=== PATIENT | female | born 1965 | race African-American/Black ===

== ENCOUNTER 2021-07-02 08:41 | Inpatient (IN) | payer OTHER, SELFPAY ==
--- NOTE | ~2021-07-02 | MR_ITS ---
EXAMINATION: MRI OF THE LEFT FOOT WAS PERFORMED WITHOUT AND WITH CONTRAST CLINICAL INFORMATION: Evaluate for osteomyelitis suggested on x-ray. COMPARISON: X-rays of the left foot most recent 07/02/2021 as well as prior left foot x-ray November 2018. TECHNIQUE: MRI of the left foot was performed without and with contrast. Contrast dose 8 mm of Gadavist given intravenously. FINDINGS: SECOND TOE DISTAL PHALANGE: There is mild generalized decreased T1 increased T2 signal in the subcutaneous soft tissues surrounding the distal phalange. There is some subtle increased T2 signal without concomitant decreased T1 signal. There is mild enhancement of the surrounding soft tissues and possible enhancement of the bone. Findings compatible with cellulitis and possible osteomyelitis. THIRD TOE DISTAL PHALANGES: There is mild decreased T1 increased T2 signal with concomitant enhancement of the distal phalange. No bony erosion. Possible slight ulceration or irregularity of the lateral subcutaneous soft tissues. Findings compatible with cellulitis and probable osteomyelitis. THIRD TOE DISTAL PHALANGE: There is generalized abnormal signal in the subcutaneous soft tissues with concomitant enhancement compatible with cellulitis. Subtle abnormal increased T2 signal with concomitant enhancement of the distal end of the distal phalanx. Findings compatible with cellulitis and possible osteomyelitis. In the midfoot there is diffuse signal abnormality compatible with edema crossing the 1st, 2nd, 3rd and 4th tarsometatarsal joints. The edema in the 2nd metatarsal extends to the distal diaphysis. There is concomitant enhancement of the area of marrow edema. No definite fracture. No cartilage loss. There is generalized abnormal increased T2 signal with scattered enhancement of the muscles throughout the visualized foot. There is minimal if any atrophy or fatty infiltration of the muscles. Findings compatible with nonspecific myositis. There is abnormal signal throughout the subcutaneous soft tissues predominately dorsally with partial enhancement. Findings compatible with a combination of cellulitis and edema. MR/MR foot LT wo/w con IMPRESSION: Findings consistent with cellulitis and possible osteomyelitis of the distal phalanx of the 2nd, 3rd and 4th toes. Abnormality involving the 1st, 2nd, 3rd and 4th tarsometatarsal joints having the appearance and distribution suspicious for early neuropathic arthropathy. Stress reaction possible. Osteomyelitis in this area of the foot is thought to be unlikely. Abnormality of the muscles of the foot compatible with nonspecific myositis. Abnormality of the dorsal subcutaneous soft tissues of the midfoot and proximal forefoot compatible with a combination of edema and cellulitis.
--- NOTE | ~2021-07-02 | XR_ITS ---
EXAMINATION: XR FOOT, RIGHT CLINICAL INFORMATION: Rule out osteo- COMPARISON: None TECHNIQUE: AP, lateral, and oblique views of the right foot. FINDINGS: There is no evidence of acute fracture or dislocation of the right foot. Right foot joint spaces are maintained. There is some mild soft tissue swelling seen about the dorsum of the metatarsals as well as the dorsum of the tarsal bones. There appears to be a soft tissue defect about the lateral aspect of the foot near the base of the fifth metatarsal. No periosteal new bone formation is identified and no adjacent osteopenia is present to suggest acute osteomyelitis. Prominent plantar calcaneal spur is seen as well as small Achilles spur. No gas within soft tissues. XR/XR foot RT min 3V IMPRESSION: No acute fracture, dislocation, or definite evidence of osteomyelitis appreciated.
--- NOTE | ~2021-07-02 | XR_ITS ---
EXAMINATION: XR FOOT, LEFT CLINICAL INFORMATION: Necrotic toes. Concern for osteomyelitis. COMPARISON: None TECHNIQUE: AP, lateral, and oblique views of the left foot. FINDINGS: There is subtle loss of the cortical margin of the distal phalangeal tuft at the medial side of the bone involving the third toe. There is a soft tissue ulceration of this toe distally at the medial side of the toe. Findings concerning therefore of osteomyelitis. There is no air in the soft tissue. No other foci of bone destruction. There is a plantar calcaneal spur. XR/XR foot LT min 3V IMPRESSION: Subtle cortical loss of the distal phalangeal tuft at the medial side of the bone involving the third toe concerning for osteomyelitis.
--- NOTE | ~2021-07-02 | US_ITS ---
EXAMINATION: Noninvasive assessment of the arteries of both lower extremities to include a PVR exam limited (1-2 levels) and MANUEL, bilateral. ? CLINICAL INFORMATION: Bilateral lower extremity nonhealing ulcerations COMPARISON: None TECHNIQUE: The ankle/brachial indices of the distal posterior tibial and the dorsalis pedis arteries were obtained of the lower extremity arterial system bilaterally; along with pressures and pulse volume recordings at the ankle and duplex Doppler techniques of the common femoral, proximal femoral and proximal profunda arteries. The study was performed at rest. ? FINDINGS AT REST:? RIGHT LE. THE RIGHT ANKLE-BRACHIAL INDEX IS: 0.97 (higher of the DP/PT) >0.97-1.25 = normal - no significant arterial disease 0.75-0.96 = mild peripheral arterial disease 0.50-0.74 = moderate peripheral arterial disease <0.50 = severe peripheral arterial disease <0.30 = critical arterial disease 2. SEGMENTAL PRESSURES: Ankle: PT 117 3. PVR WAVEFORMS: Ankle: Abnormal 4. DIRECT DUPLEX: Common femoral artery: 164 cm/sec; multiphasic waveform Profunda artery: 84.1 cm/sec; multiphasic waveform Superficial femoral artery proximal: 132 cm/sec; monophasic waveform Superficial femoral artery mid portion: 292 cm/sec; monophasic waveform Superficial femoral artery distal: 102 cm/sec; monophasic waveform Popliteal artery: 180 cm/sec; monophasic waveform Posterior tibial artery: 47.9 cm/sec; monophasic waveform LEFT LE. THE LEFT ANKLE-BRACHIAL INDEX IS: 0.59 (higher of the DP/PT) >0.97-1.25 = normal - no significant arterial disease 0.75-0.96 = mild peripheral arterial disease 0.50-0.74 = moderate peripheral arterial disease <0.50 = severe peripheral arterial disease <0.30 = critical arterial disease 2. SEGMENTAL PRESSURES: Ankle: PT 71 3. PVR WAVEFORMS: Ankle: Abnormal 4. DIRECT DUPLEX: Common femoral artery: 179 cm/sec; multiphasic waveform Profunda artery: 98.2 cm/sec; multiphasic waveform Superficial femoral artery proximal: 138 cm/sec; monophasic waveform Superficial femoral artery mid portion: 154 cm/sec; monophasic waveform Superficial femoral artery distal: 130 cm/sec; monophasic waveform Popliteal artery: 102 cm/sec; monophasic waveform Posterior tibial artery: 25.5 cm/sec; monophasic waveform Incidental note is made of an enlarged right groin lymph node measuring 2.4 x 0.8 x 1.5 cm, still maintaining normal morphology. ? US/US arterial duplex LE BI IMPRESSION: 1. Peripheral arterial disease, left greater than right by MANUEL criteria, however elevated velocity within the right mid SFA indicates moderate stenosis. More specific anatomical information can be obtained with CTA runoff with 3-D reconstructions. 2. Enlarged but morphologically normal right groin lymph node, likely reactive but clinical correlation is requested as this is not specific.
[2021-07-02 14:37] VITALS: BP 92/60; PULSE 112; RESP 16; TEMP 36.6; O2SAT 98; BMI 34.2
--- NOTE | 2021-07-02 15:11 | ED.LOWEXIN ---
HPI - Extremity Injury (Lower) General Chief Complaint: Extremity Injury, Lower Stated Complaint: Hand/feet issues Time Seen by Provider: 07/02/21 14:37 Source: patient Mode of arrival: ambulatory History of Present Illness HPI Narrative: 56-year-old female with a past medical history of arthritis, HTN, diabetes, presenting to the ED complaining of bilateral necrotic diabetic foot ulcers with superimposed chemical and hot water burn to dorsal aspect of bilateral feet x2 days. Patient reports ulcers have been present for unknown period of time, was recommended to come to ED by PCP on . Admits was mopping floor with mixture of wood floor layer, bleach, and hot water on Saturday morning and spilled on feet. reports chills. denies fever, CP, SOB, abdominal pain MD complaint: foot injury Onset (ago): day(s) Related Data Home Medications Medication Instructions Recorded Confirmed aspirin 81 mg tablet,delayed 1 tab PO DAILY 07/02/21 07/02/21 release atorvastatin 40 mg tablet 1 tab PO DAILY 07/02/21 07/02/21 cholecalciferol (vitamin D3) 25 1 tab PO DAILY 07/02/21 07/02/21 mcg (1,000 unit) tablet clotrimazole 1 % topical cream 1 appl TOPICAL BID 07/02/21 07/02/21 ezetimibe 10 mg tablet 1 tab PO DAILY 07/02/21 07/02/21 insulin glargine 100 unit/mL (3 15 unit SUBCUT DAILY 07/02/21 07/02/21 mL) subcutaneous pen (Lantus Solostar U-100 Insulin) lisinopril 20 1 tab PO DAILY 07/02/21 07/02/21 mg-hydrochlorothiazide 25 mg tablet metformin 1,000 mg tablet 1 tab PO BID 07/02/21 07/02/21 pioglitazone 15 mg tablet 1 tab PO DAILY 07/02/21 07/02/21 Allergies Allergy/AdvReac Type Severity Reaction Status Date / Time No Known Allergies Allergy Unknown UNKNOWN Unverified 03/24/20 19:04 [NO KNOWN ALLERGIES] Review of Systems Review of Systems: Constitutional: No Fever, + Chills, No Fatigue, No Malaise ENT/Mouth: No Hearing loss, No Ear Pain, No Nasal Congestion, No sore throat Eyes: No Eye Pain, No Swelling, No Redness Cardiovascular: No Chest Pain, No SOB, No Edema, No Palpitations Respiratory: No Cough, No Dyspnea Gastrointestinal: No Nausea, No Vomiting, No Diarrhea, No Constipation, No Abdominal pain Genitourinary: No Dysuria, No Urinary Frequency, No Urinary Flow Changes, No Hesitancy Musculoskeletal: + joint pain, No Myalgias, + Joint Swelling Skin: + Skin Lesions, No rash Neuro: No Weakness, No Numbness, No Paresthesias, No Headache Yes all other systems are reviewed and are negative [facility] Past Medical History Attestation statement: The following information was validated with the patient. Medical History (Updated 07/02/21 @ 17:00 by Cecilio Hernandez MD) Arthritis HLD (hyperlipidemia) Hypertension Insulin dependent type 1 diabetes mellitus Social History Social History (Updated 07/02/21 @ 17:01 by Cecilio Hernandez MD) Patient Tobacco Use Status: Never used Tobacco Advance Directives: No Advance Directives Information Provided: No Physical Exam Vital Signs: Vital Signs: Last Vital Signs Temp 98.3 F 07/02/21 15:25 Pulse 80 07/02/21 15:25 Resp 16 07/02/21 15:25 BP 94/51 L 07/02/21 15:25 Pulse Ox 99 07/02/21 15:25 BMI result Body Mass Index 34.2 Const: General: cooperative, healthy appearing and no acute distress Orientation/consciousness: patient oriented x3 Limitations: no limitations HENMT: Head: Yes normal to inspection and Yes atraumatic Ears: hearing grossly normal bilaterally General nose exam: Normal external nose present Face and sinus: Yes normal facial exam Eyes: General: appearance normal, both eyes and all related structures EOM: EOMs intact bilaterally Neck: Neck: Yes normal visual inspection and Yes no meningeal signs Resp: Effort & Inspection: normal respiratory effort and no respiratory distress Cardio: Rate: regular rate Peripheral pulses: dorsalis pedis present GI: Inspection: Yes normal to inspection Skin: Rashes: no rashes Neuro: General: patient oriented x3, moves all extremities and no meningeal signs Gait exam (Neuro): Normal gait present Extrem: Other: Please refer to images above. Right foot with 5 necrotic toes, dorsum of foot with overlying delayed second-degree burn. Distal pulses intact. + Surrounding ankle erythema and swelling Left foot with 2nd-5th toes necrotic, also with overlying delayed 2nd-degree burn. Distal pulses intact. Mild surrounding erythema General: Yes normal to inspection Course Course Course Narrative: - using patient's ideal body weight of 45 kg due to obesity. 30mg/kg x 45kg = 1,350cc IVF -1633-- noted leukocytosis of 21.9. H&H 8.5/27.7 (chronically low in the past). Acute on chronic CKD, glucose 420 > no anion gap, acetone negative - lactic acid negative. COVID-19 negative XR foot RT min 3V IMPRESSION: No acute fracture, dislocation, or definite evidence of osteomyelitis appreciated. XR foot LT min 3V IMPRESSION: Subtle cortical loss of the distal phalangeal tuft at the medial side of the bone involving the third toe concerning for osteomyelitis. >> plan to admit for further management MDM - Extremity Injury (Lower) MDM Narrative Medical decision making narrative: 56-year-old female with a past medical history of arthritis, HTN, diabetes, presenting to the ED complaining of bilateral necrotic diabetic foot ulcers with superimposed chemical and hot water burn to dorsal aspect of bilateral feet x2 days. On exam tachycardic likely from pain, BP on lower side, please refer to images above. Concern for necrotic toes/osteomyelitis with overlying delayed second-degree burn with superimposed cellulitis. plan: Labs, lactic/ blood cultures, Empiric IV antibiotics, anticipated admission Medical Records Attestation: I reviewed the patient's medical records. Lab Data Attestation: I reviewed the patient's lab results. Result diagrams: 07/02/21 15:55 07/02/21 15:55 Labs: Lab Results 07/02/21 07/02/21 07/02/21 Range/Units 15:54 15:55 15:55 WBC 21.9 H (4.8-10.8) X10*3/uL RBC 4.49 (4.20-5.50) X10*6/uL Hgb 8.5 L (12.0-16.0) g/dl Hct 27.7 L (37.0-47.0) % MCV 61.7 L (80.0-98.0) fL MCH 18.9 L (27.0-33.0) pg MCHC 30.7 L (31.0-35.0) g/dl RDW 14.0 (11.0-16.0) % Plt Count 657 H (160-400) X10*3/uL MPV 8.9 L (9.4-12.3) fL Immature Gran % (Auto) 0.5 H (0.0-0.4) % Neut % (Auto) 80.1 H (45-73) % Lymph % (Auto) 11.6 L (20-40) % [place] % (Auto) 6.8 (2-11) % Eos % (Auto) 0.7 (0-4) % Baso % (Auto) 0.3 (0-2) % Lymph # (Auto) 2.6 (1.2-4.9) X10*3/uL [place] # (Auto) 1.5 H (0.1-1.2) X10*3/uL Eos # (Auto) 0.2 (0.0-0.4) X10*3/uL Baso # (Auto) 0.1 (0.0-0.2) X10*3/uL Abs Immat Gran (auto) 0.12 H (0.00-0.03) X10*3/uL Absolute Neuts (auto) 17.5 H (2.0-8.3) x10*3/uL Absolute Nucleated RBC 0.000 (0.0-0.012) X10*3/uL Nucleated RBC % (auto) 0.0 (0.0-0.2) /100WBC Smear Tech's Comments VERIFIED Sodium 132 L (135-145) mmol/L Potassium 4.5 (3.3-5.1) mmol/L Chloride 93 L (96-108) mmol/L Carbon Dioxide 28 (22-29) mmol/L Anion Gap 16 (12-20) BUN 27 H (9-16) mg/dL Creatinine 1.64 H (0.5-1.4) mg/dL Estim Creat Clear Calc 34.9 Estimated GFR 32 POC Glucose (60-115) mg/dL Random Glucose 420 H* (60-115) mg/dL Estimat Average Glucose TNP Hemoglobin A1c % > 14.0 % Lactic Acid (0.5-2.0) mmol/L Calcium 9.7 (8.4-10.2) mg/dL Magnesium 1.7 (1.6-2.6) mg/dL Total Bilirubin 0.2 (0.0-1.0) mg/dL Direct Bilirubin 0.2 (0.0-0.5) mg/dL AST 12 (5-31) U/L ALT 12 (0-31) U/L Alkaline Phosphatase 89 (39-117) U/L B-Natriuretic Peptide (<100) pg/mL Total Protein 7.2 (6.5-8.0) g/dL Albumin 3.7 (3.5-5.0) g/dL Acetone, Qual Negative (Negative) COVID-19 ([facility]) (Negative) COVID-19 Clin Com 07/02/21 07/02/21 07/02/21 Range/Units 15:55 15:55 15:55 WBC (4.8-10.8) X10*3/uL RBC (4.20-5.50) X10*6/uL Hgb (12.0-16.0) g/dl Hct (37.0-47.0) % MCV (80.0-98.0) fL MCH (27.0-33.0) pg MCHC (31.0-35.0) g/dl RDW (11.0-16.0) % Plt Count (160-400) X10*3/uL MPV (9.4-12.3) fL Immature Gran % (Auto) (0.0-0.4) % Neut % (Auto) (45-73) % Lymph % (Auto) (20-40) % [place] % (Auto) (2-11) % Eos % (Auto) (0-4) % Baso % (Auto) (0-2) % Lymph # (Auto) (1.2-4.9) X10*3/uL [place] # (Auto) (0.1-1.2) X10*3/uL Eos # (Auto) (0.0-0.4) X10*3/uL Baso # (Auto) (0.0-0.2) X10*3/uL Abs Immat Gran (auto) (0.00-0.03) X10*3/uL Absolute Neuts (auto) (2.0-8.3) x10*3/uL Absolute Nucleated RBC (0.0-0.012) X10*3/uL Nucleated RBC % (auto) (0.0-0.2) /100WBC Smear Tech's Comments Sodium (135-145) mmol/L Potassium (3.3-5.1) mmol/L Chloride (96-108) mmol/L Carbon Dioxide (22-29) mmol/L Anion Gap (12-20) BUN (9-16) mg/dL Creatinine (0.5-1.4) mg/dL Estim Creat Clear Calc Estimated GFR POC Glucose (60-115) mg/dL Random Glucose (60-115) mg/dL Estimat Average Glucose Hemoglobin A1c % % Lactic Acid 1.5 (0.5-2.0) mmol/L Calcium (8.4-10.2) mg/dL Magnesium (1.6-2.6) mg/dL Total Bilirubin (0.0-1.0) mg/dL Direct Bilirubin (0.0-0.5) mg/dL AST (5-31) U/L ALT (0-31) U/L Alkaline Phosphatase (39-117) U/L B-Natriuretic Peptide 46 (<100) pg/mL Total Protein (6.5-8.0) g/dL Albumin (3.5-5.0) g/dL Acetone, Qual (Negative) COVID-19 ([facility]) Negative (Negative) COVID-19 Clin Com See Note 07/02/21 Range/Units 16:00 WBC (4.8-10.8) X10*3/uL RBC (4.20-5.50) X10*6/uL Hgb (12.0-16.0) g/dl Hct (37.0-47.0) % MCV (80.0-98.0) fL MCH (27.0-33.0) pg MCHC (31.0-35.0) g/dl RDW (11.0-16.0) % Plt Count (160-400) X10*3/uL MPV (9.4-12.3) fL Immature Gran % (Auto) (0.0-0.4) % Neut % (Auto) (45-73) % Lymph % (Auto) (20-40) % [place] % (Auto) (2-11) % Eos % (Auto) (0-4) % Baso % (Auto) (0-2) % Lymph # (Auto) (1.2-4.9) X10*3/uL [place] # (Auto) (0.1-1.2) X10*3/uL Eos # (Auto) (0.0-0.4) X10*3/uL Baso # (Auto) (0.0-0.2) X10*3/uL Abs Immat Gran (auto) (0.00-0.03) X10*3/uL Absolute Neuts (auto) (2.0-8.3) x10*3/uL Absolute Nucleated RBC (0.0-0.012) X10*3/uL Nucleated RBC % (auto) (0.0-0.2) /100WBC Smear Tech's Comments Sodium (135-145) mmol/L Potassium (3.3-5.1) mmol/L Chloride (96-108) mmol/L Carbon Dioxide (22-29) mmol/L Anion Gap (12-20) BUN (9-16) mg/dL Creatinine (0.5-1.4) mg/dL Estim Creat Clear Calc Estimated GFR POC Glucose 372 H* (60-115) mg/dL Random Glucose (60-115) mg/dL Estimat Average Glucose Hemoglobin A1c % % Lactic Acid (0.5-2.0) mmol/L Calcium (8.4-10.2) mg/dL Magnesium (1.6-2.6) mg/dL Total Bilirubin (0.0-1.0) mg/dL Direct Bilirubin (0.0-0.5) mg/dL AST (5-31) U/L ALT (0-31) U/L Alkaline Phosphatase (39-117) U/L B-Natriuretic Peptide (<100) pg/mL Total Protein (6.5-8.0) g/dL Albumin (3.5-5.0) g/dL Acetone, Qual (Negative) COVID-19 ([facility]) (Negative) COVID-19 Clin Com Critical Care Time Critical Care Time Critical Care Time: Yes Total Critical Care Time: 40 Attestation: I have personally provided critical care time exclusive of time spent on separately billable procedures. Time includes review of lab data, radiology results, discussion with consultants, and monitoring for potential decompensation. Intervention performed as documented. Discharge Plan Discharge Clinical Impression: Burn Osteomyelitis Qualifiers: Osteomyelitis type: unspecified type Osteomyelitis location: foot Laterality: unspecified laterality Qualified Code(s): M86.9 - Osteomyelitis, unspecified Cellulitis Qualifiers: Site of cellulitis: extremity Site of cellulitis of extremity: lower extremity Laterality: unspecified laterality Qualified Code(s): L03.119 - Cellulitis of unspecified part of limb Patient Disposition: Admitted As Inpatient
[2021-07-02 15:25] VITALS: BP 94/51; PULSE 80; RESP 16; TEMP 36.8; O2SAT 99
--- NOTE | 2021-07-02 15:38 | PHA.MEDREC ---
Pharmacy Consult ? Medication Reconciliation Pharmacy has completed the medication reconciliation Spoke with patient in ED. Patient took all meds except insulin today. She is on Lantus and says she uses dials the pen 5 clicks and her dose is either 15 or 25 units in the morning .
[2021-07-02 16:02] LABS: Basophils Absolute Auto 0.1 X10*3/uL (0.0-0.2); Basophils Percent Auto 0.3 % (0-2); Eosinophils Absolute Auto 0.2 X10*3/uL (0.0-0.4); Eosinophils Percent Auto 0.7 % (0-4); Hematocrit 27.7 % (37.0-47.0); Hemoglobin 8.5 g/dl (12.0-16.0); Imm Gran Abs Auto 0.12 X10*3/uL (0.00-0.03); Imm Gran Pct Auto 0.5 % (0.0-0.4); Lymphocytes Absolute Auto 2.6 X10*3/uL (1.2-4.9); Lymphocytes Percent Auto 11.6 % (20-40); Mean Corpuscular HGB Conc 30.7 g/dl (31.0-35.0); Mean Corpuscular Hemoglobin 18.9 pg (27.0-33.0); Mean Corpuscular Volume 61.7 fL (80.0-98.0); Mean Platelet Volume 8.9 fL (9.4-12.3); Monocytes Absolute Auto 1.5 X10*3/uL (0.1-1.2); Monocytes Percent Auto 6.8 % (2-11); Neutrophils Absolute Auto 17.5 x10*3/uL (2.0-8.3); Neutrophils Percent Auto 80.1 % (45-73); Platelet Count 657 X10*3/uL (160-400); Red Blood Count 4.49 X10*6/uL (4.20-5.50); White Blood Count 21.9 X10*3/uL (4.8-10.8)
[2021-07-02 16:03] LABS: MANUAL DIFF FLAG SCAN
[2021-07-02] MEDS: 0.9 % Sodium Chloride 1,000 ML 999 ML IVCONT ×2 (16:04→17:41)
[2021-07-02 16:05] LABS: Glucose, Whole Blood 372 mg/dL (60-115)
[2021-07-02] MEDS: Piperacillin Sodium/Tazobactam 3.375 GM in 0.9 % Sodium Chloride 50 ML IV ×2 (16:13→22:37)
[2021-07-02 16:14] LABS: Lactic Acid 1.5 mmol/L (0.5-2.0)
[2021-07-02 16:23] LABS: SLIDE REVIEW VERIFIED
[2021-07-02 16:24] LABS: B Type Natriuretic Peptide 46 pg/mL (<100)
[2021-07-02 16:25] LABS: Alanine Aminotransferase 12 U/L (0-31); Albumin Level 3.7 g/dL (3.5-5.0); Alkaline Phosphatase 89 U/L (39-117); Anion Gap 16 (12-20); Aspartate Amino Transferase 12 U/L (5-31); Bilirubin Direct 0.2 mg/dL (0.0-0.5); Bilirubin Total 0.2 mg/dL (0.0-1.0); Blood Urea Nitrogen 27 mg/dL (9-16); Calcium 9.7 mg/dL (8.4-10.2); Carbon Dioxide 28 mmol/L (22-29); Chloride 93 mmol/L (96-108); Creatinine Clr Calc Pharmacy 34.9; Estimated Glomerular Filt Rate 32; Glucose Random 420 mg/dL (60-115); Magnesium 1.7 mg/dL (1.6-2.6); Potassium 4.5 mmol/L (3.3-5.1); Sodium 132 mmol/L (135-145); Total Protein 7.2 g/dL (6.5-8.0)
[2021-07-02 16:26] LABS: Acetone, serum QL Negative (Negative)
[2021-07-02 16:27] LABS: COVID-19 Test Negative (Negative)
[2021-07-02 16:45] LABS: Hemoglobin A1c % > 14.0 %
--- NOTE | 2021-07-02 16:56 | PM.IMHP ---
History of Present Illness Date of Service: 07/02/21 Chief Complaint: Foot ulcer 56-year-old female with a past medical history of arthritis, HTN, diabetes, presenting with bilateral necrotic diabetic foot ulcers, and also reports that she had chemical injury to the feet with probably bleach.? Before sustaining burn she had chronic ulcer to the feet and PCP had advised her to come to the ED--She reported was mopping the floor with mixture of assistant floor covering printer, bleach, and hot water the day before chrismas when bucket tipped over and spilled on to the feet. No fever or chills. WBC is 23. Xray of left foot shows Subtle cortical loss of the distal phalangeal tuft at the medial side of the bone involving the third toe concerning for osteomyelitis. Review of Systems Review of Systems: Constitutional: No Fever, + Chills, No Fatigue, No Malaise ENT/Mouth: No Hearing loss, No Ear Pain, No Nasal Congestion, No sore throat Eyes: No Eye Pain, No Swelling, No Redness Cardiovascular: No Chest Pain, No SOB, No Edema, No Palpitations Respiratory: No Cough, No Dyspnea Gastrointestinal: No Nausea, No Vomiting, No Diarrhea, No Constipation, No Abdominal pain Genitourinary: No Dysuria, No Urinary Frequency, No Urinary Flow Changes, No Hesitancy Musculoskeletal: + joint pain, No Myalgias, + Joint Swelling Skin: +ulcers as in picutures below Neuro: No Weakness, No Numbness, No Paresthesias, No Headache PMFSH Medical History (Updated 07/02/21 @ 17:38 by Cecilio Hernandez MD) Arthritis Diabetes HLD (hyperlipidemia) Hypertension Family History (Updated 07/02/21 @ 17:34 by Cecilio Hernandez MD) Other HTN (hypertension) Social History (Updated 07/02/21 @ 17:34 by Cecilio Hernandez MD) Alcohol intake: never Patient Tobacco Use Status: Never used Tobacco Advance Directives: No Advance Directives Information Provided: No Meds Allergies Allergy/AdvReac Type Severity Reaction Status Date / Time No Known Allergies Allergy Unknown UNKNOWN Unverified 03/24/20 19:04 [NO KNOWN ALLERGIES] Active Medications: Current Medications Pharmacy Consult (Consult Rx Perform Med Rec) 1 each MISCELLANE ONCE PRN PRN Reason: Consult order Home Medications Medication Instructions Recorded Confirmed Last Taken Type aspirin 81 mg tablet,delayed 1 tab PO DAILY 07/02/21 07/02/21 07/02/21 History release atorvastatin 40 mg tablet 1 tab PO DAILY 07/02/21 07/02/21 07/02/21 History cholecalciferol (vitamin D3) 25 1 tab PO DAILY 07/02/21 07/02/21 07/02/21 History mcg (1,000 unit) tablet clotrimazole 1 % topical cream 1 appl TOPICAL BID 07/02/21 07/02/21 07/02/21 History ezetimibe 10 mg tablet 1 tab PO DAILY 07/02/21 07/02/21 07/02/21 History insulin glargine 100 unit/mL (3 15 unit SUBCUT DAILY 07/02/21 07/02/21 07/01/21 History mL) subcutaneous pen (Lantus Solostar U-100 Insulin) lisinopril 20 1 tab PO DAILY 07/02/21 07/02/21 07/02/21 History mg-hydrochlorothiazide 25 mg tablet metformin 1,000 mg tablet 1 tab PO BID 07/02/21 07/02/21 07/02/21 History pioglitazone 15 mg tablet 1 tab PO DAILY 07/02/21 07/02/21 07/02/21 History Physical Exam Vital Signs and Narrative: Vital Signs: Last Vital Signs Temp 98.3 F 07/02/21 15:25 Pulse 80 07/02/21 15:25 Resp 16 07/02/21 15:25 BP 94/51 L 07/02/21 15:25 Pulse Ox 99 07/02/21 15:25 BMI result Body Mass Index 34.2 Const: Other: Constitutional: Alert, in no distress, . Mental Status: Oriented to person, place and time. Eyes: Pupils are equal, round and reactive to light. Ear, Nose and Throat: Oropharynx clear, mucous membranes moist. Ears and nose without eformities. Trachea midline. Respiratory: Clear to auscultation. No wheezing, rales or rhonchi. Cardiovascular: S1 S2 regular. No murmurs, rubs or gallops. Gastrointestinal: Abdomen soft, non-tender, non-distended. Normal bowel sounds.? Neurologic: Cranial nerves II-XII grossly intact. No focal neurological deficits. Moves all extremities spontaneously.? Skin:See pictures Musculoskeletal: No cyanosis or clubbing. Psychiatric: Normal mood and affect? Extrem: Other: Please refer to images above. Right foot with 5 necrotic toes, dorsum of foot with overlying delayed second-degree burn. Distal pulses intact. + Surrounding ankle erythema and swelling Left foot with 2nd-5th toes necrotic, also with overlying delayed 2nd-degree burn. Distal pulses intact. Mild surrounding erythema Results Labs CBC and Chem 7: 07/02/21 15:55 07/02/21 15:55 Labs: Laboratory Results - last 24 hr 07/02/21 07/02/21 07/02/21 15:54 15:55 15:55 MCV 61.7 L MCH 18.9 L MCHC 30.7 L RDW 14.0 Plt Count 657 H MPV 8.9 L Immature Gran % (Auto) 0.5 H Neut % (Auto) 80.1 H Lymph % (Auto) 11.6 L [place] % (Auto) 6.8 Eos % (Auto) 0.7 Baso % (Auto) 0.3 Lymph # (Auto) 2.6 [place] # (Auto) 1.5 H Eos # (Auto) 0.2 Baso # (Auto) 0.1 Abs Immat Gran (auto) 0.12 H Absolute Neuts (auto) 17.5 H Absolute Nucleated RBC 0.000 Nucleated RBC % (auto) 0.0 Smear Tech's Comments VERIFIED Anion Gap 16 Estim Creat Clear Calc 34.9 Estimated GFR 32 POC Glucose Random Glucose 420 H* Estimat Average Glucose TNP Hemoglobin A1c % > 14.0 Lactic Acid Calcium 9.7 Magnesium 1.7 Total Bilirubin 0.2 Direct Bilirubin 0.2 AST 12 ALT 12 Alkaline Phosphatase 89 B-Natriuretic Peptide Total Protein 7.2 Albumin 3.7 Acetone, Qual Negative COVID-19 ([facility]) COVID-19 Clin Com 07/02/21 07/02/21 07/02/21 15:55 15:55 15:55 MCV MCH MCHC RDW Plt Count MPV Immature Gran % (Auto) Neut % (Auto) Lymph % (Auto) [place] % (Auto) Eos % (Auto) Baso % (Auto) Lymph # (Auto) [place] # (Auto) Eos # (Auto) Baso # (Auto) Abs Immat Gran (auto) Absolute Neuts (auto) Absolute Nucleated RBC Nucleated RBC % (auto) Smear Tech's Comments Anion Gap Estim Creat Clear Calc Estimated GFR POC Glucose Random Glucose Estimat Average Glucose Hemoglobin A1c % Lactic Acid 1.5 Calcium Magnesium Total Bilirubin Direct Bilirubin AST ALT Alkaline Phosphatase B-Natriuretic Peptide 46 Total Protein Albumin Acetone, Qual COVID-19 ([facility]) Negative COVID-19 Clin Com See Note 07/02/21 16:00 MCV MCH MCHC RDW Plt Count MPV Immature Gran % (Auto) Neut % (Auto) Lymph % (Auto) [place] % (Auto) Eos % (Auto) Baso % (Auto) Lymph # (Auto) [place] # (Auto) Eos # (Auto) Baso # (Auto) Abs Immat Gran (auto) Absolute Neuts (auto) Absolute Nucleated RBC Nucleated RBC % (auto) Smear Tech's Comments Anion Gap Estim Creat Clear Calc Estimated GFR POC Glucose 372 H* Random Glucose Estimat Average Glucose Hemoglobin A1c % Lactic Acid Calcium Magnesium Total Bilirubin Direct Bilirubin AST ALT Alkaline Phosphatase B-Natriuretic Peptide Total Protein Albumin Acetone, Qual COVID-19 ([facility]) COVID-19 Clin Com Imaging Radiologist's Impressions: Impressions Foot X-Ray 07/02/21 15:15 IMPRESSION: Subtle cortical loss of the distal phalangeal tuft at the medial side of the bone involving the third toe concerning for osteomyelitis. Foot X-Ray 07/02/21 15:15 IMPRESSION: No acute fracture, dislocation, or definite evidence of osteomyelitis appreciated. Assessment and Plan (1) Cellulitis: Qualifiers: Laterality: unspecified laterality Site of cellulitis: extremity Site of cellulitis of extremity: lower extremity Qualified Code(s): L03.119 - Cellulitis of unspecified part of limb Status: Acute (2) Burn: Status: Acute (3) Diabetes: Status: Acute (4) Osteomyelitis: Qualifiers: Laterality: unspecified laterality Osteomyelitis location: foot Osteomyelitis type: unspecified type Qualified Code(s): M86.9 - Osteomyelitis, unspecified Status: Acute 56 year female with diabetes, HNT, HLD, peripheral neuropathy diabetes foot ulcers here with diabetic foot ulcer with superimposed chemical and hot water burn to the feet as demonstrated in pictures.. Xray suggest possible osteo, has anemia that appear chronic #Sepsis #?Osteo of left foot #Cellulitis of feet -Culture pending -IV Abx (Zosyn and Vanco) -ID, Surgery, and Vascular consult -MRI of left foot Diabetes--uncontrolled -Continue Lantus -Hold Metofrmin and Actos in light or renal failure #HTN--Hold BP meds BP borderline #HLD--continue Statin # Peripheral neuropathy--add gabapentin #CKD--I suspect that the present Cr reflects her baseline # Anemia--likely of chronic disease, check occultur blood #DVT prophy heparin, monitor H/H Quality Stroke Does the patient have a stroke diagnosis?: No VTE Prior VTE?: No VTE Risk Level:: Medical - moderate - high VTE Device Contraindication: Treatment Not Indicated VTE Drug Contraindication: N/A - Med Ordered
[2021-07-02] MEDS: Insulin Regular, Human 100 UNIT/ML 3 ML VIAL 10 UNIT IVPUSH (17:42)
[2021-07-02] MEDS: vancomycin HCL 1,000 MG in 0.9 % Sodium Chloride 250 ML 270 MG IV (17:44)
--- NOTE | 2021-07-02 18:16 | PHA.PROG ---
Admission Date/Time: July 02, 2021 17:45 Indication: osteo/sepsis Weight in k.379 kg Adjusted body weight in K.1 kg [place] body weight in K.5 kg Obesity Dosing Indication % IBW: Serum Creatinine - Last 168 Hours 07/02/21 15:55 Creatinine 1.64 H Estimated CrCl and GFR - Last 168 Hours 07/02/21 15:55 Estim Creat Clear Calc 34.9 Estimated GFR 32 Vancomycin Loading Dose: 1000 mg Current Vancomycin Dosing Regimen: 1250 mg q24 Vancomycin Monitoring using AUC goal of 400 - 600 range with trough as surrogate marker:562 Date and Time for next Vancomycin Level to be drawn: 07/04 @1600 Pharmacist Comments on Plan: 1250 mg q24 based on dx, potentially may need to decrease to 1000 mg q24 if renal function worsens Vancomycin dosing will take advantage of [employer] as a clinical decision support tool that uses Bayesian modeling to calculate individual patient's pharmacokinetic parameters and forecast the patient's drug concentration time course with the target goal AUC 24 range of 400 - 600 mg/L/hr.
[2021-07-02] MEDS: Bacitracin Oint 14 GM TUBE 2 APPL TOPICAL (18:23)
[2021-07-02 19:41] LABS: Glucose, Whole Blood 303 mg/dL (60-115)
[2021-07-02 19:52] VITALS: BP 101/48; PULSE 93; RESP 16; TEMP 36.7; O2SAT 98
[2021-07-02] MEDS: Sodium Chloride 0.45 % 1,000 ML 100 ML IVCONT (20:11)
--- NOTE | 2021-07-02 20:45 | PC.NURSE ---
assumed care of pt at 1900. IVF started late due to high pt number to low RN ratio on previous shift. pt laying in bed wearing winter hat and gloves. pt refusing to exchange specialist. awaiting inpatient bed assignment, pt aware
[2021-07-02 21:11] LABS: Glucose, Whole Blood 314 mg/dL (60-115)
[2021-07-02] MEDS: Insulin Lispro 100 UNIT/ML 3 ML VIAL SUBCUT (21:12)
[2021-07-02] MEDS: Insulin Glargine,Hum.rec.anlog 100 UNIT/ML 10 ML VIAL 15 UNIT SUBCUT (21:13)
[2021-07-02 23:06] VITALS: BP 106/44; PULSE 89; RESP 16; TEMP 36.8; O2SAT 98
[2021-07-03 01:24] VITALS: BP 113/42; PULSE 90; RESP 16; TEMP 36.8; O2SAT 99
[2021-07-03] MEDS: Piperacillin Sodium/Tazobactam 3.375 GM in 0.9 % Sodium Chloride 50 ML IV ×4 (04:43→22:11)
[2021-07-03] MEDS: Sodium Chloride 0.45 % 1,000 ML 100 ML IVCONT (04:44)
--- NOTE | 2021-07-03 06:22 | PC.NURSE ---
pt oob to bathroom with assist with a steady.
[2021-07-03 07:08] VITALS: BP 119/48; PULSE 100; RESP 16; TEMP 36.8; O2SAT 99
[2021-07-03 07:16] LABS: Glucose, Whole Blood 144 mg/dL (60-115)
[2021-07-03 08:55] VITALS: BP 119/48; PULSE 99; RESP 16
[2021-07-03] MEDS: Cholecalciferol (Vitamin D3) 25 MCG TABLET PO (08:56)
[2021-07-03] MEDS: Ezetimibe 10 MG TABLET PO (08:56)
[2021-07-03] MEDS: Aspirin Enteric Coated 81 MG TABLET.DR PO (08:56)
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
[2021-07-03 09:50] LABS: Hematocrit 23.7 % (37.0-47.0); Hemoglobin 7.3 g/dl (12.0-16.0); Mean Corpuscular HGB Conc 30.8 g/dl (31.0-35.0); Mean Corpuscular Hemoglobin 19.1 pg (27.0-33.0); Mean Platelet Volume 8.9 fL (9.4-12.3); Platelet Count 557 X10*3/uL (160-400); Red Blood Count 3.83 X10*6/uL (4.20-5.50); Red Cell Distribution Width 14.3 % (11.0-16.0); White Blood Count 18.2 X10*3/uL (4.8-10.8)
[2021-07-03 09:51] LABS: Mean Corpuscular Volume 61.9 fL (80.0-98.0)
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
[2021-07-03 10:14] LABS: Creatinine Clr Calc Pharmacy 46.1; Estimated Glomerular Filt Rate 44
[2021-07-03 11:03] LABS: Anion Gap 9 (12-20); Calcium 8.9 mg/dL (8.4-10.2); Carbon Dioxide 28 mmol/L (22-29); Chloride 99 mmol/L (96-108); Creatinine Clr Calc Pharmacy 43.6; Estimated Glomerular Filt Rate 42; Glucose Random 302 mg/dL (60-115); Potassium 4.4 mmol/L (3.3-5.1); Sodium 132 mmol/L (135-145)
[2021-07-03 11:12] LABS: Blood Urea Nitrogen 22 mg/dL (9-16)
[2021-07-03 11:33] LABS: Glucose, Whole Blood 258 mg/dL (60-115)
[2021-07-03 11:44] LABS: Erythrocyte Sedimentation Rate 104 MM/HR (0-20)
--- NOTE | 2021-07-03 12:19 | P.CDIC_ITS ---
CDI Concurrent Query Documentation Clarification: PHYSICIAN'S DOCUMENTATION REQUEST Date of Query: 07/03/21 1219 Patient Name: Mitra Parish Admit Date: 07/02/21 Dear Doctor, A review of the medical record indicates additional documentation may be needed. Please review below and update the documentation accordingly. Clinical Indicators: The following clinical information was noted in the record: Verdana 4Bd Risk Factors/Clinical Indicators/Treatments Verdana 4d BUN 27 Creatinine 1.64 GFR 32 Please clarify which of the following accurately represents the patient's renal status: * CKD, please provide stage - see criteria * Other (please specify) * Unable to determine Verdana 4Bd Criteria for LUIS* Stages of Chronic Kidney Disease* Verdana 4d 1. Verdana 4Ud c Verdana 4Bd Leve GFR Increase in serum l c Description c creatinine by ? 0.3 mg/dL A Verdana 4d (?26. G1 Normal or High > 90 5 micromol/L) within 48 hours, or 2. Increase in G2 Mildly decreased 60 ? 89 serum creatinine to ?1.5 times baseline, which is G3a Mildly to 45 ? 59 known or presumed moderately to have occurred decreased within 7 days, or 3. Urine volume G3b Moderately to 30 - 44 <0.5 mL/kg/hour severely for six hours decreased G4 Severely 15 ? 29 decreased G5 Kidney failure < 15 *Source: Kidney Disease: Improving Global Outcomes (KDIGO) 2012 Use of terms such as suspected, likely, concern for, or probable (associated with a specific diagnosis that is being evaluated, monitored, or treated as if it exists) are acceptable and can be coded in the inpatient setting, when documented at the time of discharge. Thank you, Stefanie Stern , KRISTEN Extension: [phone] Please use your independent medical judgment in providing your response. THIS QUERY IS PART OF THE PERMANENT MEDICAL RECORD
--- NOTE | 2021-07-03 12:19 | MHC.CDI.CONC ---
CDI Concurrent Query Documentation Clarification: PHYSICIAN'S DOCUMENTATION REQUEST Date of Query: 07/03/21 1219 Patient Name: Mitra Parish Admit Date: 07/02/21 Dear Doctor, A review of the medical record indicates additional documentation may be needed. Please review below and update the documentation accordingly. Clinical Indicators: The following clinical information was noted in the record: Risk Factors/Clinical Indicators/Treatments BUN 27 Creatinine 1.64 GFR 32 Please clarify which of the following accurately represents the patient's renal status: CKD, please provide stage - see criteria Other (please specify) Unable to determine Criteria for LUIS* Stages of Chronic Kidney Disease* 1. Increase in serum creatinine by ? 0.3 mg/dL Level Description GFR (?26.5 micromol/L) within 48 hours, or G1 Normal or High > 90 2. Increase in serum creatinine to ?1.5 times baseline, G2 Mildly decreased 60 ? 89 which is known or presumed to have occurred within 7 days, or G3a Mildly to moderately decreased 45 ? 59 3. Urine volume <0.5 mL/kg/hour for six hours G3b Moderately to severely decreased 30 - 44 G4 Severely decreased 15 ? 29 G5 Kidney failure < 15 *Source: Kidney Disease: Improving Global Outcomes (KDIGO) 2012 Use of terms such as suspected, likely, concern for, or probable (associated with a specific diagnosis that is being evaluated, monitored, or treated as if it exists) are acceptable and can be coded in the inpatient setting, when documented at the time of discharge. Thank you, Stefanie Stern RN Extension: [phone] Please use your independent medical judgment in providing your response. THIS QUERY IS PART OF THE PERMANENT MEDICAL RECORD
--- NOTE | 2021-07-03 12:27 | P.CONGS_ITS ---
History of Present Illness Consult details Consult date: 07/03/21 Reason for consult: wound care Narrative: Very pleasant 56-year-old female with a longstanding history of diabetes presents for nonhealing ulcers. She actually had these long-standing diabetic ulcers. On top of it she was cleaning her floor and spilled a bleach solution on her feet. It appears that there is a chemical burn associated with this as well. She has had difficulty ambulating prior to this and notes that she can walk about 2 blocks at most. She now presents to us for vascular eval uation regarding nonhealing lower extremity ulcers. Review of Systems Review of Systems: Yes all other systems are reviewed and are negative Constitutional: Constitutional: Reports no additional constitutional complaints ENT: Reports Normal hearing present Cardiovascular: Cardiovascular: Denies chest pain, Denies chest pain at rest, Denies chest pain with activity and Denies pedal edema Respiratory: Respiratory: Denies cough Gastrointestinal: Gastrointestinal: Denies abdominal pain Musculoskeletal: Musculoskeletal: Denies abnormal gait, Denies muscle cramps and Denies radiating pain into limb Integumentary/Breasts: Skin/Breast: Denies skin ulcer and Denies wounds Neurologic: Reports Normal hearing present and Denies abnormal gait Psychiatric: Psychiatric: Reports no additional psychiatric complaints [facility] Past Medical History Medical History (Updated 07/03/21 @ 12:30 by Ton Vigil MD) Arthritis Diabetes HLD (hyperlipidemia) Hypertension Toe ulcer due to DM Family History Family History Other HTN (hypertension) Social History Social History Alcohol intake: never Patient Tobacco Use Status: Never used Tobacco Advance Directives: No Advance Directives Information Provided: No Meds Allergies Allergy/AdvReac Type Severity Reaction Status Date / Time No Known Allergies Allergy Unknown UNKNOWN Unverified 03/24/20 19:04 [NO KNOWN ALLERGIES] Active Medications: Current Medications Acetaminophen (Acetaminophen 325 Mg Tablet) 650 mg PO Q6H PRN PRN Reason: Pain, Mild (Pain Scale 1-3) Al Hydroxide/Mg Hydroxide (Magnesium Hydrox/Alum Hydrox 30 Ml Oral.Susp) 30 ml PO Q4H PRN PRN Reason: Heartburn/Nausea Aspirin (Aspirin Enteric Coated 81 Mg Tablet.Dr) 81 mg PO DAILY [facility] Last Admin: 07/03/21 08:56 Dose: 81 mg Documented by: Atorvastatin Calcium (Atorvastatin Calcium 40 Mg Tablet) 40 mg PO BEDTIME [facility] Ezetimibe (Ezetimibe 10 Mg Tablet) 10 mg PO DAILY [facility] Last Admin: 07/03/21 08:56 Dose: 10 mg Documented by: Sodium Chloride () 1,000 mls @ 100 mls/hr IVCONT .Q10H [facility] Stop: 07/03/21 13:44 Last Infusion: 07/03/21 11:45 Dose: 100 mls/hr Documented by: Piperacillin Sod/Tazobactam (Sod 3.375 gm/ Sodium Chloride) 50 mls @ 100 mls/hr IV Q6H [facility] Last Infusion: 07/03/21 11:01 Dose: Infused Documented by: Vancomycin HCl 1,250 mg/ (Sodium Chloride) 250 mls @ 166.667 mls/hr IV Q24H [facility] Cefazolin Sodium/Dextrose (Ancef) 2 gm in 50 mls @ 100 mls/hr IV PREOP ONE Stop: 07/04/21 10:46 Insulin Glargine (Insulin Glargine,Hum.Rec.Anlog 100 Unit/Ml 10 Ml Vial) 15 unit SUBCUT BEDTIME [facility] Last Admin: 07/02/21 21:13 Dose: 15 unit Documented by: Insulin Human Lispro (Insulin Lispro 100 Unit/Ml 3 Ml Vial) 0 unit SUBCUT QIDACHS [facility]; Protocol Last Admin: 07/03/21 07:51 Dose: Not Given Documented by: Magnesium Hydroxide (Milk Of Magnesia 30 Ml Oral.Susp) 30 ml PO DAILY PRN PRN Reason: Constipation Melatonin (Melatonin 3 Mg Tablet) 6 mg PO BEDTIME PRN PRN Reason: Insomnia Morphine Sulfate (Morphine Sulfate 4 Mg/Ml Cartridge) 2 mg IVPUSH Q4H PRN; Protocol PRN Reason: Pain, Severe (Pain Scale 7-10) Ondansetron HCl (Ondansetron Hcl 4 Mg/2 Ml Vial) 4 mg IVPUSH Q8H PRN PRN Reason: Nausea and Vomiting Pharmacy Consult (Consult Rx Perform Med Rec) 1 each MISCELLANE ONCE PRN PRN Reason: Consult order Pharmacy Consult (Consult Rx Vancomycin Dosing) 1 each MISCELLANE DAILY PRN PRN Reason: Consult order Sodium Chloride (0.9 % Sodium Chloride Flush 3 Ml Syringe) 3 ml IVFLUSH QSHIFT [facility] Last Admin: 07/03/21 09:37 Dose: Not Given Documented by: Vitamin D (Cholecalciferol (Vitamin D3) 25 Mcg Tablet) 25 mcg PO DAILY [facility] Last Admin: 07/03/21 08:56 Dose: 25 mcg Documented by: Home Medications Medication Instructions Recorded Confirmed Last Taken Type aspirin 81 mg tablet,delayed 1 tab PO DAILY 07/02/21 07/02/21 07/02/21 History release atorvastatin 40 mg tablet 1 tab PO DAILY 07/02/21 07/02/21 07/02/21 History cholecalciferol (vitamin D3) 25 1 tab PO DAILY 07/02/21 07/02/21 07/02/21 History mcg (1,000 unit) tablet clotrimazole 1 % topical cream 1 appl TOPICAL BID 07/02/21 07/02/21 07/02/21 History ezetimibe 10 mg tablet 1 tab PO DAILY 07/02/21 07/02/21 07/02/21 History insulin glargine 100 unit/mL (3 15 unit SUBCUT DAILY 07/02/21 07/02/21 07/01/21 History mL) subcutaneous pen (Lantus Solostar U-100 Insulin) lisinopril 20 1 tab PO DAILY 07/02/21 07/02/21 07/02/21 History mg-hydrochlorothiazide 25 mg tablet metformin 1,000 mg tablet 1 tab PO BID 07/02/21 07/02/21 07/02/21 History pioglitazone 15 mg tablet 1 tab PO DAILY 07/02/21 07/02/21 07/02/21 History Physical Exam Vital Signs: Vital Signs: Last Vital Signs Temp 98.3 F 07/03/21 07:08 Pulse 99 07/03/21 08:55 Resp 16 07/03/21 08:55 BP 119/48 L 07/03/21 08:55 Pulse Ox 99 07/03/21 07:08 BMI result Body Mass Index 34.2 Const: General: cooperative, healthy appearing and comfortable Orientation/consciousness: oriented to person, oriented to place and oriented to time HENMT: Head: Yes normal to inspection Neck: Neck: Yes normal visual inspection Carotids: no bruits Chest: Chest palpation & inspection: normal inspection of the chest Resp: Effort & Inspection: normal respiratory effort and able to speak in complete sentences Auscultation: clear to auscultation bilaterally, no crackles, no rales, no rhonchi and no wheezes Cardio: Rate: regular rate Rhythm: regular rhythm Heart sounds: S1 normal heart sound present and S2 normal heart sound present Bruits: no carotid bruits Peripheral pulses: dorsalis pedis present (Bilateral DP signals) GI: Inspection: Yes normal to inspection Skin: Wounds: wounds noted (Bilateral lower extremity feet chemical rosales) Hair: normal Neuro: General: oriented to person, oriented to place and oriented to time Cranial nerves: Yes CN's II-XII intact bilaterally and Yes Normal hearing present Cognition (Neuro): normal cognition Motor exam (neuro): 5/5 motor strength present throughout Extrem: Other: venous exam: No significant superficial varicosities or spider telangiectasias, minimal edema General: No clubbing, No cyanosis and No edema Psych: Appearance: grossly normal Mental Status: mental status grossly normal Speech and movement: Normal speech and movement present Results Labs Result diagrams: 07/03/21 09:18 07/03/21 10:41 Labs: Abnormal lab results 07/02/21 07/02/21 07/02/21 Range/Units 15:55 15:55 16:00 WBC 21.9 H (4.8-10.8) X10*3/uL RBC (4.20-5.50) X10*6/uL Hgb 8.5 L (12.0-16.0) g/dl Hct 27.7 L (37.0-47.0) % MCV 61.7 L (80.0-98.0) fL MCH 18.9 L (27.0-33.0) pg MCHC 30.7 L (31.0-35.0) g/dl Plt Count 657 H (160-400) X10*3/uL MPV 8.9 L (9.4-12.3) fL Immature Gran % (Auto) 0.5 H (0.0-0.4) % Neut % (Auto) 80.1 H (45-73) % Lymph % (Auto) 11.6 L (20-40) % Ware # (Auto) 1.5 H (0.1-1.2) X10*3/uL Abs Immat Gran (auto) 0.12 H (0.00-0.03) X10*3/uL Absolute Neuts (auto) 17.5 H (2.0-8.3) x10*3/uL ESR (0-20) MM/HR Sodium 132 L (135-145) mmol/L Chloride 93 L (96-108) mmol/L Anion Gap (12-20) BUN 27 H (9-16) mg/dL Creatinine 1.64 H (0.5-1.4) mg/dL POC Glucose 372 H* (60-115) mg/dL Random Glucose 420 H* (60-115) mg/dL 07/02/21 07/02/21 07/03/21 Range/Units 19:37 21:06 07:12 WBC (4.8-10.8) X10*3/uL RBC (4.20-5.50) X10*6/uL Hgb (12.0-16.0) g/dl Hct (37.0-47.0) % MCV (80.0-98.0) fL MCH (27.0-33.0) pg MCHC (31.0-35.0) g/dl Plt Count (160-400) X10*3/uL MPV (9.4-12.3) fL Immature Gran % (Auto) (0.0-0.4) % Neut % (Auto) (45-73) % Lymph % (Auto) (20-40) % Ware # (Auto) (0.1-1.2) X10*3/uL Abs Immat Gran (auto) (0.00-0.03) X10*3/uL Absolute Neuts (auto) (2.0-8.3) x10*3/uL ESR (0-20) MM/HR Sodium (135-145) mmol/L Chloride (96-108) mmol/L Anion Gap (12-20) BUN (9-16) mg/dL Creatinine (0.5-1.4) mg/dL POC Glucose 303 H 314 H 144 H (60-115) mg/dL Random Glucose (60-115) mg/dL 07/03/21 07/03/21 07/03/21 Range/Units 09:18 10:41 10:41 WBC 18.2 H (4.8-10.8) X10*3/uL RBC 3.83 L (4.20-5.50) X10*6/uL Hgb 7.3 L (12.0-16.0) g/dl Hct 23.7 L (37.0-47.0) % MCV 61.9 L (80.0-98.0) fL MCH 19.1 L (27.0-33.0) pg MCHC 30.8 L (31.0-35.0) g/dl Plt Count 557 H (160-400) X10*3/uL MPV 8.9 L (9.4-12.3) fL Immature Gran % (Auto) (0.0-0.4) % Neut % (Auto) (45-73) % Lymph % (Auto) (20-40) % Ware # (Auto) (0.1-1.2) X10*3/uL Abs Immat Gran (auto) (0.00-0.03) X10*3/uL Absolute Neuts (auto) (2.0-8.3) x10*3/uL ESR 104 H (0-20) MM/HR Sodium 132 L (135-145) mmol/L Chloride (96-108) mmol/L Anion Gap 9 L (12-20) BUN 22 H (9-16) mg/dL Creatinine (0.5-1.4) mg/dL POC Glucose (60-115) mg/dL Random Glucose 302 H (60-115) mg/dL 07/03/ Range/Units 11:25 WBC (4.8-10.8) X10*3/uL RBC (4.20-5.50) X10*6/uL Hgb (12.0-16.0) g/dl Hct (37.0-47.0) % MCV (80.0-98.0) fL MCH (27.0-33.0) pg MCHC (31.0-35.0) g/dl Plt Count (160-400) X10*3/uL MPV (9.4-12.3) fL Immature Gran % (Auto) (0.0-0.4) % Neut % (Auto) (45-73) % Lymph % (Auto) (20-40) % Ware # (Auto) (0.1-1.2) X10*3/uL Abs Immat Gran (auto) (0.00-0.03) X10*3/uL Absolute Neuts (auto) (2.0-8.3) x10*3/uL ESR (0-20) MM/HR Sodium (135-145) mmol/L Chloride (96-108) mmol/L Anion Gap (12-20) BUN (9-16) mg/dL Creatinine (0.5-1.4) mg/dL POC Glucose 258 H (60-115) mg/dL Random Glucose (60-115) mg/dL Short CBC 07/02/21 07/03/21 Range/Units 15:55 09:18 WBC 21.9 H 18.2 H (4.8-10.8) X10*3/uL Hgb 8.5 L 7.3 L (12.0-16.0) g/dl Hct 27.7 L 23.7 L (37.0-47.0) % Plt Count 657 H 557 H (160-400) X10*3/uL BMP 07/02/21 07/03/21 07/03/21 15:55 09:18 10:41 Sodium 132 L 132 L Potassium 4.5 4.4 Chloride 93 L 99 Carbon Dioxide 28 28 BUN 27 H 22 H Creatinine 1.64 H 1.24 1.31 Calcium 9.7 8.9 D Liver Function 07/02/21 Range/Units 15:55 Total Bilirubin 0.2 (0.0-1.0) mg/dL Direct Bilirubin 0.2 (0.0-0.5) mg/dL AST 12 (5-31) U/L ALT 12 (0-31) U/L Alkaline Phosphatase 89 (39-117) U/L Albumin 3.7 (3.5-5.0) g/dL All other labs normal. Assessment and Plan (1) Chemical burn of foot: Qualifiers: Encounter type: initial encounter Laterality: unspecified laterality Corrosion degree: unspecified degree Qualified Code(s): T25.429A - Corrosion of unspecified degree of unspecified foot, initial encounter Status: Acute In short patient has chemical rosales of bilateral lower extremities. Will order bilateral Silvadene dressings to be changed daily. In addition she will be worked up for arterial disease. Thank you for allowing us to assist in her care. (2) PAD (peripheral artery disease): Status: Acute Due to her longstanding history of diabetes and nonhealing ulcers, will obtain non invasive arterial testing. Based on those results will plan further intervention. For now will continue with local wound care. This was discussed with the patient. Thank you for allowing us to assist in her care. Procedures Date of Service Date of Service: 07/03/21
[2021-07-03] MEDS: Insulin Lispro 100 UNIT/ML 3 ML VIAL SUBCUT ×3 (13:24→20:08)
[2021-07-03] MEDS: Silver Sulfadiazine 1 % Cream 20 GM TUBE 1 APPL TOPICAL (13:25)
[2021-07-03 15:49] VITALS: BP 110/41; PULSE 99; RESP 18; O2SAT 97
[2021-07-03] MEDS: 0.9 % Sodium Chloride Flush 3 ML SYRINGE IVFLUSH ×2 (16:06→19:46)
--- NOTE | 2021-07-03 16:53 | W.PM.IDCN ---
History of Present Illness Data of Consult Service Date: 07/03/21 Requesting physician: Cecilio Hernandez Primary Care Provider: Jae Krishna MD [facility] Reason for consult: foot redness She presents with redness and eschars bilateral feet,left more than right after three days ago accidently injuring feet while cleaning with bleach and hot water She has no fever or chills Review of Systems Review of Systems: Yes all other systems are reviewed and are negative PMFSH Past Medical History Medical History Arthritis Diabetes HLD (hyperlipidemia) Hypertension Toe ulcer due to DM Family History Family History Other HTN (hypertension) Social History Social History Alcohol intake: never Patient Tobacco Use Status: Never used Tobacco Advance Directives: No Advance Directives Information Provided: No Meds Allergies Allergy/AdvReac Type Severity Reaction Status Date / Time No Known Allergies Allergy Unknown UNKNOWN Unverified 03/24/20 19:04 [NO KNOWN ALLERGIES] Active Medications: Current Medications Acetaminophen (Acetaminophen 325 Mg Tablet) 650 mg PO Q6H PRN PRN Reason: Pain, Mild (Pain Scale 1-3) Al Hydroxide/Mg Hydroxide (Magnesium Hydrox/Alum Hydrox 30 Ml Oral.Susp) 30 ml PO Q4H PRN PRN Reason: Heartburn/Nausea Aspirin (Aspirin Enteric Coated 81 Mg Tablet.) 81 mg PO DAILY [facility] Last Admin: 07/03/21 08:56 Dose: 81 mg Documented by: Atorvastatin Calcium (Atorvastatin Calcium 40 Mg Tablet) 40 mg PO BEDTIME [facility] Ezetimibe (Ezetimibe 10 Mg Tablet) 10 mg PO DAILY [facility] Last Admin: 07/03/21 08:56 Dose: 10 mg Documented by: Piperacillin Sod/Tazobactam (Sod 3.375 gm/ Sodium Chloride) 50 mls @ 100 mls/hr IV Q6H [facility] Last Admin: 07/03/21 16:05 Dose: 100 mls/hr Documented by: Vancomycin HCl 1,250 mg/ (Sodium Chloride) 250 mls @ 166.667 mls/hr IV Q24H [facility] Cefazolin Sodium/Dextrose (Ancef) 2 gm in 50 mls @ 100 mls/hr IV PREOP ONE Stop: 07/04/21 10:46 Insulin Glargine (Insulin Glargine,Hum.Rec.Anlog 100 Unit/Ml 10 Ml Vial) 15 unit SUBCUT BEDTIME [facility] Last Admin: 07/02/21 21:13 Dose: 15 unit Documented by: Insulin Human Lispro (Insulin Lispro 100 Unit/Ml 3 Ml Vial) 0 unit SUBCUT QIDACHS [facility]; Protocol Last Admin: 07/03/21 13:24 Dose: 6 unit Documented by: Magnesium Hydroxide (Milk Of Magnesia 30 Ml Oral.Susp) 30 ml PO DAILY PRN PRN Reason: Constipation Melatonin (Melatonin 3 Mg Tablet) 6 mg PO BEDTIME PRN PRN Reason: Insomnia Morphine Sulfate (Morphine Sulfate 4 Mg/Ml Cartridge) 2 mg IVPUSH Q4H PRN; Protocol PRN Reason: Pain, Severe (Pain Scale 7-10) Ondansetron HCl (Ondansetron Hcl 4 Mg/2 Ml Vial) 4 mg IVPUSH Q8H PRN PRN Reason: Nausea and Vomiting Pharmacy Consult (Consult Rx Perform Med Rec) 1 each MISCELLANE ONCE PRN PRN Reason: Consult order Pharmacy Consult (Consult Rx Vancomycin Dosing) 1 each MISCELLANE DAILY PRN PRN Reason: Consult order Silver Sulfadiazine (Silver Sulfadiazine 1 % Cream 20 Gm Tube) 1 appl TOPICAL DAILY [facility] Last Admin: 07/03/21 13:25 Dose: 1 appl Documented by: Sodium Chloride (0.9 % Sodium Chloride Flush 3 Ml Syringe) 3 ml IVFLUSH QSHIFT [facility] Last Admin: 07/03/21 16:06 Dose: 3 ml Documented by: Vitamin D (Cholecalciferol (Vitamin D3) 25 Mcg Tablet) 25 mcg PO DAILY [facility] Last Admin: 07/03/21 08:56 Dose: 25 mcg Documented by: Home Medications Medication Instructions Recorded Confirmed Last Taken Type aspirin 81 mg tablet,delayed 1 tab PO DAILY 07/02/21 07/02/21 07/02/21 History release atorvastatin 40 mg tablet 1 tab PO DAILY 07/02/21 07/02/21 07/02/21 History cholecalciferol (vitamin D3) 25 1 tab PO DAILY 07/02/21 07/02/21 07/02/21 History mcg (1,000 unit) tablet clotrimazole 1 % topical cream 1 appl TOPICAL BID 07/02/21 07/02/21 07/02/21 History ezetimibe 10 mg tablet 1 tab PO DAILY 07/02/21 07/02/21 07/02/21 History insulin glargine 100 unit/mL (3 15 unit SUBCUT DAILY 07/02/21 07/02/21 07/01/21 History mL) subcutaneous pen (Lantus Solostar U-100 Insulin) lisinopril 20 1 tab PO DAILY 07/02/21 07/02/21 07/02/21 History mg-hydrochlorothiazide 25 mg tablet metformin 1,000 mg tablet 1 tab PO BID 07/02/21 07/02/21 07/02/21 History pioglitazone 15 mg tablet 1 tab PO DAILY 07/02/21 07/02/21 07/02/21 History Physical Exam Vital Signs: Vital Signs: Last Vital Signs Temp 98.3 F 07/03/21 07:08 Pulse 99 07/03/21 15:49 Resp 18 07/03/21 15:49 BP 110/41 L 07/03/21 15:49 Pulse Ox 97 07/03/21 15:49 BMI result Body Mass Index 34.2 Const: General: cooperative Eyes: General: appearance normal, both eyes and all related structures Resp: Effort & Inspection: normal respiratory effort Cardio: Rate: regular rate Rhythm: regular rhythm GI: Palpation (GI): Soft to palpation and nontender Extrem: Other: blackened left DIP 2-4 plantar wound 1 cm Results Labs CBC & Chem 7: 07/03/21 09:18 07/03/21 10:41 Labs: Short CBC 07/03/21 Range/Units 09:18 WBC 18.2 H (4.8-10.8) X10*3/uL Hgb 7.3 L (12.0-16.0) g/dl Hct 23.7 L (37.0-47.0) % Plt Count 557 H (160-400) X10*3/uL BMP 07/03/21 07/03/21 09:18 10:41 Sodium 132 L Potassium 4.4 Chloride 99 Carbon Dioxide 28 BUN 22 H Creatinine 1.24 1.31 Calcium 8.9 D Assessment and Plan (1) Chemical burn of foot: Qualifiers: Encounter type: initial encounter Laterality: unspecified laterality Corrosion degree: unspecified degree Qualified Code(s): T25.429A - Corrosion of unspecified degree of unspecified foot, initial encounter Status: Acute (2) Toe ulcer due to DM: Status: Acute (3) Diabetes: Status: Acute (4) Osteomyelitis: Qualifiers: Laterality: unspecified laterality Osteomyelitis location: foot Osteomyelitis type: unspecified type Qualified Code(s): M86.9 - Osteomyelitis, unspecified Status: Acute Continue Vancomycin and Zosyn Await cultures If no MRSA possible Ertapenem for six weeks with Vascular and Wound followup
[2021-07-03 18:00] VITALS: BP 102/60; PULSE 94; RESP 18; TEMP 36.8; O2SAT 97
[2021-07-03 18:07] LABS: Glucose, Whole Blood 166 mg/dL (60-115)
--- NOTE | 2021-07-03 18:50 | MHC.CM.PN ---
CM met with admitted patient in room 375. A&Ox3. IMM reviewed and signed per protocol 07/03/2021@1840. Copy given and placed to medical records. No HCP on file. HCP/daughter Yessenia Parish ([phone]). Copy requested. Pt states she believes there is a copy at [facility]. Pt has [facility]. States she has no services in her home. Does have incontinence pads and DM supplies from [facility]. Pt lives alone. Pt has not had any covid vaccinations. D/C plan pending daily rounds. Pt will probably need 6 weeks IV antibiotics, assisted, wound care and ?daily dressing changes. D/C plan pending MD orders. Pt aware she may need [facility] wound care. No referrals placed at this time. CM to follow for d/c needs.
[2021-07-03 19:45] VITALS: BP 91/50; PULSE 97; RESP 18; TEMP 36.4; O2SAT 97
[2021-07-03] MEDS: vancomycin HCL 1,250 MG in 0.9 % Sodium Chloride 250 ML 166.67 MG IV (19:45)
[2021-07-03] MEDS: Atorvastatin Calcium 40 MG TABLET PO (19:46)
[2021-07-03 20:11] LABS: Glucose, Whole Blood 222 mg/dL (60-115)
--- NOTE | 2021-07-04 00:49 | PC.NURSE ---
Pt was seen in room at shift change alert and oriented, noted with dressing on both feet CDI, pt claimed she has pain on both feet from 5/10 left and 9/10 right, offered and asked if she needs some pain med but refused and said she can tolerate the pain, she said she just have to walk around to lessen her pain, Vanco IV and Zosyn IV given as scheduled, pt tolerated, IVline on the left AC flushed at around 2300. Around 0005, PCT went to pt's room to take her vitals, PCT reported that pt is nowhere to be found in the room nor adjacent rooms, this medical underwriter went to the pt's room and confirmed that the pt is not around anymore, [facility] to[facility]o was called, Security was called and spoken to them and that they will call [employer] police to check pt's apt. Irwin Sanabria called back and said that Police dept went to the pt's apt to do wellness check and saw Mitra Manus the pt there, pt claimed she went home unwitnessed due to family emergency, and refusing to comeback to the hospital this time and would prefer to comeback in the morning. Elly said to discharge pt as unwitnessed AMA,Dr. Gorman was notified, will discharge pt as unwitnessed AMA, AMA form was signed by 2 RNs and put in file.
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
== END 2021-07-04 00:15 | disposition left against medical advice (07) | DRG 638 ==
LOC: HO.ED 16:55 → HO.EDOVER 18:03 → HO.S3 07-03 16:58
PROVIDERS: Physician Assistant; Surgery; Admitting Provider Internal Medicine; Emergency Provider Emergency Medicine Emergency Medical Services; PCP Emergency Medicine; Visit Provider Internal Medicine
DX: E11.69 Type 2 diabetes mellitus with other specified complication (principal); L03.115 Cellulitis of right lower limb; T25.722 Corrosion of third degree of left foot; L03.116 Cellulitis of left lower limb; M86.9 Osteomyelitis, unspecified; T25.721A Corrosion of third degree of right foot, initial encounter; Z20.822 Contact with and (suspected) exposure to COVID-19; E78.5 Hyperlipidemia, unspecified; E11.42 Type 2 diabetes mellitus with diabetic polyneuropathy; D63.1 Anemia in chronic kidney disease; I12.9 Hypertensive chronic kidney disease with stage 1 through stage 4 chronic kidney disease, or unspecified chronic kidney disease; E11.22 Type 2 diabetes mellitus with diabetic chronic kidney disease; E11.621 Type 2 diabetes mellitus with foot ulcer; L97.529 Non-pressure chronic ulcer of other part of left foot with unspecified severity; L97.519 Non-pressure chronic ulcer of other part of right foot with unspecified severity; E11.51 Type 2 diabetes mellitus with diabetic peripheral angiopathy without gangrene; N18.9 Chronic kidney disease, unspecified; X11.8XXA Contact with other hot tap-water, initial encounter; Y93.E5 Activity, floor mopping and cleaning; Y92.007 Garden or yard of unspecified non-institutional (private) residence as the place of occurrence of the external cause; Z79.4 Long term (current) use of insulin; Z79.82 Long term (current) use of aspirin; Z79.84 Long term (current) use of oral hypoglycemic drugs; Z79.899 Other long term (current) drug therapy
CPT/HCPCS: 36415; 73630; 73720; 80048; 80076; 82009; 82565; 82947; 83036; 83605; 83735; 83880; 85025; 85027; 85652; 87040; 87635; 93923; 93925; 99285; A9585; J2543; J3370

== ENCOUNTER 2021-07-09 07:36 | Inpatient (IN) | payer OTHER, SELFPAY ==
--- NOTE | ~2021-07-09 | XR_ITS ---
EXAMINATION: XR CHEST CLINICAL INFORMATION: Covid positive. COMPARISON: 11/12/2017 TECHNIQUE: Portable AP upright view of the chest was obtained. FINDINGS: The cardiac silhouette is not enlarged. Peribronchial thickening is identified. No consolidation or pleural effusion is seen. No acute osseous abnormalities. XR/XR chest 1V IMPRESSION: Mild peribronchial thickening. No parenchymal opacities are seen.
[2021-07-09 07:59] VITALS: BP 118/68; PULSE 109; RESP 16; TEMP 37.4; O2SAT 97; BMI 33.7
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
--- NOTE | 2021-07-09 08:40 | PHA.MEDREC ---
Pharmacy Consult ? Medication Reconciliation Pharmacy has completed the medication reconciliation. Ashley Iverson
[2021-07-09] MEDS: 0.9 % Sodium Chloride 1,000 ML 999 ML IV (09:08)
[2021-07-09 09:13] LABS: MANUAL DIFF FLAG NO
[2021-07-09 09:16] LABS: Basophils Percent Auto 0.3 % (0-2); Eosinophils Absolute Auto 0.2 X10*3/uL (0.0-0.4); Eosinophils Percent Auto 1.8 % (0-4); Hematocrit 26.9 % (37.0-47.0); Hemoglobin 8.1 g/dl (12.0-16.0); Imm Gran Abs Auto 0.07 X10*3/uL (0.00-0.03); Imm Gran Pct Auto 0.7 % (0.0-0.4); Lymphocytes Absolute Auto 2.4 X10*3/uL (1.2-4.9); Lymphocytes Percent Auto 24.9 % (20-40); Mean Corpuscular HGB Conc 30.1 g/dl (31.0-35.0); Mean Corpuscular Hemoglobin 18.7 pg (27.0-33.0); Mean Platelet Volume 8.6 fL (9.4-12.3); Monocytes Absolute Auto 1.2 X10*3/uL (0.1-1.2); Monocytes Percent Auto 12.2 % (2-11); Neutrophils Absolute Auto 5.8 x10*3/uL (2.0-8.3); Neutrophils Percent Auto 60.1 % (45-73); Platelet Count 761 X10*3/uL (160-400); Red Blood Count 4.34 X10*6/uL (4.20-5.50); Red Cell Distribution Width 14.6 % (11.0-16.0); White Blood Count 9.6 X10*3/uL (4.8-10.8)
[2021-07-09] MEDS: Piperacillin Sodium/Tazobactam 3.375 GM in 0.9 % Sodium Chloride 50 ML IV ×3 (09:19→21:15)
[2021-07-09 09:23] LABS: Lactic Acid 1.9 mmol/L (0.5-2.0)
[2021-07-09] MEDS: vancomycin HCL 1,000 MG in 0.9 % Sodium Chloride 250 ML 270 MG IV (09:24)
[2021-07-09 09:26] VITALS: BP 126/61; PULSE 89; RESP 18; O2SAT 987
[2021-07-09 09:29] LABS: Alanine Aminotransferase 12 U/L (0-31); Albumin Level 3.7 g/dL (3.5-5.0); Alkaline Phosphatase 90 U/L (39-117); Anion Gap 13 (12-20); Aspartate Amino Transferase 14 U/L (5-31); Bilirubin Direct 0.2 mg/dL (0.0-0.5); Bilirubin Total 0.4 mg/dL (0.0-1.0); Blood Urea Nitrogen 18 mg/dL (9-16); Calcium 9.8 mg/dL (8.4-10.2); Carbon Dioxide 28 mmol/L (22-29); Chloride 100 mmol/L (96-108); Creatinine Clr Calc Pharmacy 42.7; Estimated Glomerular Filt Rate 41; Glucose Random 273 mg/dL (60-115); Lipase 37 U/L (8-78); Potassium 4.4 mmol/L (3.3-5.1); Sodium 137 mmol/L (135-145); Total Protein 7.5 g/dL (6.5-8.0)
[2021-07-09 09:50] LABS: Influenza A PCR NEGATIVE (Negative); Influenza B PCR NEGATIVE (Negative); Resp Syncy Virus RNA Qual PCR NEGATIVE (Negative); SARS COV2 PCR INHOUSE POSITIVE (Negative)
[2021-07-09 10:00] VITALS: BP 122/61; PULSE 93; RESP 18; O2SAT 97
[2021-07-09 10:31] LABS: Glucose, Whole Blood 213 mg/dL (60-115)
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
--- NOTE | 2021-07-09 11:41 | PHA.PROG ---
Admission Date/Time: Indication: BONE AND JOINT INFECTION Weight in k.471 kg Adjusted body weight in K.7 KG [place] body weight in K.5 KG Obesity Dosing Indication % IBW: Serum Creatinine - Last 168 Hours 07/09/21 09:03 Creatinine 1.33 Estimated CrCl and GFR - Last 168 Hours 07/09/21 09:03 Estim Creat Clear Calc 42.7 Estimated GFR 41 Vancomycin Loading Dose: 1000 MG X 1 + 500 MG X 1 = 1500 MG Current Vancomycin Dosing Regimen: 1250 MG Q24H Vancomycin Monitoring using AUC goal of 400 - 600 range with trough as surrogate marker: PREDICTED AUC 486, TROUGH 14.6 Date and Time for next Vancomycin Level to be drawn: BEFORE 3RD DOSE ON 07/11/21 @0800 Pharmacist Comments on Vancomycin Plan: GAVE ADDITIONAL 500 MG DOSE FOR LOADING DOSE Vancomycin dosing will take advantage of [employer] as a clinical decision support tool that uses Bayesian modeling to calculate individual patient's pharmacokinetic parameters and forecast the patient's drug concentration time course with the target goal AUC 24 range of 400 - 600 mg/L/hr.
[2021-07-09 12:00] VITALS: O2SAT 98
[2021-07-09] MEDS: vancomycin HCL 500 MG in 0.9 % Sodium Chloride 100 ML 110 MG IV (12:32)
[2021-07-09] MEDS: Enoxaparin Sodium 40 MG/0.4 ML SYRINGE SUBCUT (12:40)
[2021-07-09 12:52] LABS: Appearance Urine CLEAR; Color Urine STRAW; Glucose Urine UA 500 MG/DL (NEG); Leukocyte Esterase Urine NEG (NEG); Nitrite Urine NEG (NEG); PH 5.5 (5.0-8.0); Urine Blood NEG (NEG); Urine Ketones NEG (NEG); Urine Protein NEG (NEG-TRACE)
[2021-07-09 16:00] VITALS: BP 121/55; PULSE 94; RESP 16; TEMP 37.3; O2SAT 95
[2021-07-09 16:26] LABS: Glucose, Whole Blood 257 mg/dL (60-115)
[2021-07-09] MEDS: Insulin Lispro 100 UNIT/ML 3 ML VIAL SUBCUT ×2 (16:40→21:16)
[2021-07-09 20:00] VITALS: BP 145/63; PULSE 84; RESP 16; TEMP 36.6; O2SAT 96
[2021-07-09 21:32] LABS: Glucose, Whole Blood 189 mg/dL (60-115)
[2021-07-10] VITALS: BP 123/49; PULSE 85; RESP 16; TEMP 36.7; O2SAT 97
[2021-07-10] MEDS: Piperacillin Sodium/Tazobactam 3.375 GM in 0.9 % Sodium Chloride 50 ML IV ×4 (03:28→20:38)
[2021-07-10 04:13] VITALS: BP 128/62; PULSE 97; O2SAT 95
[2021-07-10 06:00] VITALS: BP 123/60; PULSE 87; RESP 16; TEMP 36.7; O2SAT 97
[2021-07-10 07:34] LABS: Hematocrit 25.1 % (37.0-47.0); Hemoglobin 7.4 g/dl (12.0-16.0); Mean Corpuscular HGB Conc 29.5 g/dl (31.0-35.0); Mean Corpuscular Hemoglobin 18.5 pg (27.0-33.0); Mean Platelet Volume 8.5 fL (9.4-12.3); NRBC Pct Auto 0.2 /100WBC (0.0-0.2); Platelet Count 612 X10*3/uL (160-400); Red Cell Distribution Width 14.8 % (11.0-16.0); White Blood Count 9.8 X10*3/uL (4.8-10.8)
[2021-07-10 07:35] LABS: Mean Corpuscular Volume 62.8 fL (80.0-98.0)
[2021-07-10 07:43] LABS: Creatinine Clr Calc Pharmacy 45.1; Estimated Glomerular Filt Rate 44
[2021-07-10 07:45] LABS: Anion Gap 12 (12-20); Blood Urea Nitrogen 16 mg/dL (9-16); Calcium 9.3 mg/dL (8.4-10.2); Carbon Dioxide 28 mmol/L (22-29); Chloride 100 mmol/L (96-108); Creatinine Clr Calc Pharmacy 45.1; Estimated Glomerular Filt Rate 44; Glucose Random 279 mg/dL (60-115); Sodium 135 mmol/L (135-145)
[2021-07-10 07:57] LABS: Glucose, Whole Blood 254 mg/dL (60-115)
[2021-07-10] MEDS: Aspirin Enteric Coated 81 MG TABLET.DR PO (08:11)
[2021-07-10] MEDS: Ezetimibe 10 MG TABLET PO (08:11)
[2021-07-10] MEDS: Insulin Lispro 100 UNIT/ML 3 ML VIAL SUBCUT ×4 (08:11→20:38)
[2021-07-10] MEDS: Silver Sulfadiazine 1 % Cream 20 GM TUBE 1 APPL TOPICAL (08:11)
[2021-07-10] MEDS: Insulin Glargine,Hum.rec.anlog 100 UNIT/ML 10 ML VIAL 15 UNIT SUBCUT (08:12)
[2021-07-10 09:06] VITALS: BP 124/65; PULSE 99; RESP 16; O2SAT 98
[2021-07-10] MEDS: vancomycin HCL 1,250 MG in 0.9 % Sodium Chloride 250 ML 166.67 MG IV (09:15)
[2021-07-10 13:45] LABS: Glucose, Whole Blood 191 mg/dL (60-115)
[2021-07-10] MEDS: Enoxaparin Sodium 40 MG/0.4 ML SYRINGE SUBCUT (13:49)
--- NOTE | 2021-07-10 14:27 | PM.CNGS ---
History of Present Illness Consult details Consult date: 07/10/21 Narrative: This is a readmission of a 56-year-old female known to us for a prior chemical burn of the lower extremities. She had prior diabetic toe ulcerations and subsequently developed a chemical burn from bleached where she was cleaning the floor. She had been in the hospital and treated with Silvadene cream. She was subsequently discharged. She now presents for follow-up. Review of Systems Review of Systems: Yes all other systems are reviewed and are negative Constitutional: Constitutional: Reports no additional constitutional complaints ENT: Reports Normal hearing present Cardiovascular: Cardiovascular: Denies chest pain, Denies chest pain at rest, Denies chest pain with activity and Denies pedal edema Respiratory: Respiratory: Denies cough Gastrointestinal: Gastrointestinal: Denies abdominal pain Musculoskeletal: Musculoskeletal: Denies abnormal gait, Denies muscle cramps and Denies radiating pain into limb Integumentary/Breasts: Skin/Breast: Denies skin ulcer and Denies wounds Neurologic: Reports Normal hearing present and Denies abnormal gait Psychiatric: Psychiatric: Reports no additional psychiatric complaints PMFSH Past Medical History Medical History (Updated 07/09/21 @ 10:27 by Ned Harris MD) Arthritis Diabetes HLD (hyperlipidemia) Hypertension Toe ulcer due to DM Family History Family History Other HTN (hypertension) Surgical History Surgical History (Updated 07/09/21 @ 11:24 by Bertram Nava MD) H/O dilation and curettage Social History Social History Household Members: None Housing: Apartment Do you presently have visiting nurse or other home services: No Alcohol intake: never Patient Tobacco Use Status: Never used Tobacco Use of substances other than those prescribed or required for medical reasons: No Advance Directives: No Advance Directives Information Provided: No Patient : No service: No Current occupational status: disabled Meds Allergies Allergy/AdvReac Type Severity Reaction Status Date / Time No Known Allergies Allergy Unknown UNKNOWN Unverified 03/24/20 19:04 [NO KNOWN ALLERGIES] Active Medications: Current Medications Acetaminophen (Acetaminophen 325 Mg Tablet) 650 mg PO Q6H PRN PRN Reason: Pain, Mild (Pain Scale 1-3) Aspirin (Aspirin Enteric Coated 81 Mg Tablet.Dr) 81 mg PO DAILY [facility] Last Admin: 07/10/21 08:11 Dose: 81 mg Documented by: Atorvastatin Calcium (Atorvastatin Calcium 40 Mg Tablet) 40 mg PO BEDTIME [facility] Ezetimibe (Ezetimibe 10 Mg Tablet) 10 mg PO DAILY [facility] Last Admin: 07/10/21 08:11 Dose: 10 mg Documented by: Enoxaparin Sodium (Enoxaparin Sodium 40 Mg/0.4 Ml Syringe) 40 mg SUBCUT Q24H [facility] Last Admin: 07/10/21 13:49 Dose: 40 mg Documented by: Piperacillin Sod/Tazobactam (Sod 3.375 gm/ Sodium Chloride) 50 mls @ 100 mls/hr IV Q6H [facility] Last Infusion: 07/10/21 08:44 Dose: Infused Documented by: Vancomycin HCl 1,250 mg/ (Sodium Chloride) 250 mls @ 166.667 mls/hr IV Q24H [facility] Last Infusion: 07/10/21 10:46 Dose: Infused Documented by: Insulin Glargine (Insulin Glargine,Hum.Rec.Anlog 100 Unit/Ml 10 Ml Vial) 15 unit SUBCUT DAILY [facility] Last Admin: 07/10/21 08:12 Dose: 15 unit Documented by: Insulin Human Lispro (Insulin Lispro 100 Unit/Ml 3 Ml Vial) 0 unit SUBCUT QIDACHS [facility]; Protocol Last Admin: 07/10/21 13:48 Dose: 2 unit Documented by: Ondansetron HCl (Ondansetron Hcl 4 Mg/2 Ml Vial) 4 mg IVPUSH Q8H PRN PRN Reason: Nausea and Vomiting Pharmacy Consult (Consult Rx Perform Med Rec) 1 each MISCELLANE ONCE PRN PRN Reason: Consult order Pharmacy Consult (Consult Rx Vancomycin Dosing) 1 each MISCELLANE DAILY PRN PRN Reason: Consult order Silver Sulfadiazine (Silver Sulfadiazine 1 % Cream 20 Gm Tube) 1 appl TOPICAL DAILY [facility] Last Admin: 07/10/21 08:11 Dose: 1 appl Documented by: Home Medications Medication Instructions Recorded Confirmed Last Taken Type aspirin 81 mg tablet,delayed 1 tab PO DAILY 07/02/21 07/09/21 07/09/21 History release atorvastatin 40 mg tablet 1 tab PO DAILY 07/02/21 07/09/21 07/09/21 History cholecalciferol (vitamin D3) 25 1 tab PO DAILY 07/02/21 07/09/21 07/09/21 History mcg (1,000 unit) tablet clotrimazole 1 % topical cream 1 appl TOPICAL BID 07/02/21 07/09/21 07/09/21 History ezetimibe 10 mg tablet 1 tab PO DAILY 07/02/21 07/09/21 07/09/21 History insulin glargine 100 unit/mL (3 15 unit SUBCUT DAILY 07/02/21 07/09/21 07/08/21 History mL) subcutaneous pen (Lantus Solostar U-100 Insulin) lisinopril 20 1 tab PO DAILY 07/02/21 07/09/21 07/09/21 History mg-hydrochlorothiazide 25 mg tablet metformin 1,000 mg tablet 1 tab PO BID 07/02/21 07/09/21 07/09/21 History pioglitazone 15 mg tablet 1 tab PO DAILY 07/02/21 07/09/21 07/09/21 History silver sulfadiazine 1 % topical 1 appl TOPICAL DAILY 07/09/21 07/09/21 07/09/21 History cream Physical Exam Vital Signs: Vital Signs: Last Vital Signs Temp 98.1 F 07/10/21 06:00 Pulse 99 07/10/21 09:06 Resp 16 07/10/21 09:06 BP 124/65 07/10/21 09:06 Pulse Ox 98 07/10/21 09:06 BMI result Body Mass Index 33.7 Const: General: cooperative, healthy appearing and comfortable Orientation/consciousness: oriented to person, oriented to place and oriented to time HENMT: Head: Yes normal to inspection Neck: Neck: Yes normal visual inspection Carotids: no bruits Chest: Chest palpation & inspection: normal inspection of the chest Resp: Effort & Inspection: normal respiratory effort and able to speak in complete sentences Auscultation: clear to auscultation bilaterally, no crackles, no rales, no rhonchi and no wheezes Cardio: Rate: regular rate Rhythm: regular rhythm Heart sounds: S1 normal heart sound present and S2 normal heart sound present Bruits: no carotid bruits Peripheral pulses: dorsalis pedis present (Bilateral dorsalis pedis signal) GI: Inspection: Yes normal to inspection Skin: Wounds: no wounds Hair: normal Neuro: General: oriented to person, oriented to place and oriented to time Cranial nerves: Yes CN's II-XII intact bilaterally and Yes Normal hearing present Cognition (Neuro): normal cognition Motor exam (neuro): 5/5 motor strength present throughout Extrem: Other: venous exam: No significant superficial varicosities or spider telangiectasias, minimal edema General: No clubbing, No cyanosis and No edema Psych: Appearance: grossly normal Mental Status: mental status grossly normal Speech and movement: Normal speech and movement present Results Labs Result diagrams: 07/10/21 07:19 07/10/21 07:19 Labs: Abnormal lab results 07/09/21 07/09/21 07/10/21 Range/Units 16:12 21:07 07:19 RBC 4.00 L (4.20-5.50) X10*6/uL Hgb 7.4 L (12.0-16.0) g/dl Hct 25.1 L (37.0-47.0) % MCV 62.8 L (80.0-98.0) fL MCH 18.5 L (27.0-33.0) pg MCHC 29.5 L (31.0-35.0) g/dl Plt Count 612 H (160-400) X10*3/uL MPV 8.5 L (9.4-12.3) fL Absolute Nucleated RBC 0.020 H (0.0-0.012) X10*3/uL POC Glucose 257 H 189 H (60-115) mg/dL Random Glucose (60-115) mg/dL 07/10/21 07/10/21 07/10/21 Range/Units 07:19 07:51 13:41 RBC (4.20-5.50) X10*6/uL Hgb (12.0-16.0) g/dl Hct (37.0-47.0) % MCV (80.0-98.0) fL MCH (27.0-33.0) pg MCHC (31.0-35.0) g/dl Plt Count (160-400) X10*3/uL MPV (9.4-12.3) fL Absolute Nucleated RBC (0.0-0.012) X10*3/uL POC Glucose 254 H 191 H (60-115) mg/dL Random Glucose 279 H (60-115) mg/dL Short CBC 07/10/21 Range/Units 07:19 WBC 9.8 (4.8-10.8) X10*3/uL Hgb 7.4 L (12.0-16.0) g/dl Hct 25.1 L (37.0-47.0) % Plt Count 612 H (160-400) X10*3/uL BMP 07/10/21 07/10/21 07:19 07:19 Sodium 135 Potassium 5.0 Chloride 100 Carbon Dioxide 28 BUN 16 Creatinine 1.26 1.26 Calcium 9.3 Urine 07/09/21 Range/Units 12:46 Urine Color STRAW Urine Appearance CLEAR Urine pH 5.5 (5.0-8.0) Ur Specific [place] 1.020 (1.005-1.025) Urine Protein NEG (NEG-TRACE) MG/DL Urine Glucose (UA) 500 H (NEG) MG/DL All other labs normal. Assessment and Plan (1) PAD (peripheral artery disease): Status: Acute In short patient has an element of peripheral vascular disease right side MANUEL is 0.97 left side is 0.59. At the current time would treat the local wounds with Silvadene cream. I would like her current COVID status to improve prior to any intervention and implant. She will follow up with us as an outpatient. Thank you for allowing us to assist in her care. If there are any questions or concerns please do not hesitate to contact us. (2) Chemical burn of foot: Qualifiers: Encounter type: initial encounter Laterality: unspecified laterality Corrosion degree: unspecified degree Qualified Code(s): T25.429A - Corrosion of unspecified degree of unspecified foot, initial encounter Status: Acute Would recommend Silvadene cream to bilateral lower extremities. Noninvasive testing noted. She can follow up with us as an outpatient once her COVID clears would be happy to intervene. Thank you for allowing us to assist in her care. Procedures Date of Service Date of Service: 07/10/21
--- NOTE | 2021-07-10 14:58 | MHC.CM.PN ---
pt in ed overflow covid positive nikos gaona and spoke with pts amauri ling with whom she lives pt was indepedent prior to admisison and no servceis also in the home are her 2 other children who are autisitic .pt is unvaccinate dc plans are tbd at this time
--- NOTE | 2021-07-10 15:17 | HO.PM.IMPN ---
Subjective Subjective Date of Service: 07/10/21 Review of Systems Follow up left distal phalanx osteomyelitis No pain, soaking feet in warm soapy water Physical Exam Vital Signs: Vital Signs: Last Vital Signs Temp 98.1 F 07/10/21 06:00 Pulse 99 07/10/21 09:06 Resp 16 07/10/21 09:06 BP 124/65 07/10/21 09:06 Pulse Ox 98 07/10/21 09:06 BMI result Body Mass Index 33.7 Appearing in no acute distress lung sounds are clear to auscultation heart regular rate rhythm, clear S1, S2 positive bowel sounds, abdomen is soft, nontender neuro patient is alert x3, no focal deficits Top of foot macerated skin, pink wound bed, bottom of toes discolored but improving. Objective Data Active Medications Acetaminophen (Acetaminophen 325 Mg Tablet) 650 mg PO Q6H PRN PRN Reason: Pain, Mild (Pain Scale 1-3) Aspirin (Aspirin Enteric Coated 81 Mg Tablet.) 81 mg PO DAILY [facility] Last Admin: 07/10/21 08:11 Dose: 81 mg Documented by: YVETTE Atorvastatin Calcium (Atorvastatin Calcium 40 Mg Tablet) 40 mg PO BEDTIME [facility] Ezetimibe (Ezetimibe 10 Mg Tablet) 10 mg PO DAILY [facility] Last Admin: 07/10/21 08:11 Dose: 10 mg Documented by: YVETTE Enoxaparin Sodium (Enoxaparin Sodium 40 Mg/0.4 Ml Syringe) 40 mg SUBCUT Q24H [facility] Last Admin: 07/10/21 13:49 Dose: 40 mg Documented by: BROOK Piperacillin Sod/Tazobactam (Sod 3.375 gm/ Sodium Chloride) 50 mls @ 100 mls/hr IV Q6H [facility] Last Infusion: 07/10/21 08:44 Dose: 0 mls/hr Documented by: YVETTE Vancomycin HCl 1,250 mg/ (Sodium Chloride) 250 mls @ 166.667 mls/hr IV Q24H [facility] Last Infusion: 07/10/21 10:46 Dose: 0 mls/hr Documented by: YVETTE Insulin Glargine (Insulin Glargine,Hum.Rec.Anlog 100 Unit/Ml 10 Ml Vial) 15 unit SUBCUT DAILY [facility] Last Admin: 07/10/21 08:12 Dose: 15 unit Documented by: YVETTE Insulin Human Lispro (Insulin Lispro 100 Unit/Ml 3 Ml Vial) 0 unit SUBCUT QIDACHS [facility]; Protocol Last Admin: 07/10/21 13:48 Dose: 2 unit Documented by: BROOK Comments: lunch came late, administered wtih a meal Ondansetron HCl (Ondansetron Hcl 4 Mg/2 Ml Vial) 4 mg IVPUSH Q8H PRN PRN Reason: Nausea and Vomiting Pharmacy Consult (Consult Rx Perform Med Rec) 1 each MISCELLANE ONCE PRN PRN Reason: Consult order Pharmacy Consult (Consult Rx Vancomycin Dosing) 1 each MISCELLANE DAILY PRN PRN Reason: Consult order Silver Sulfadiazine (Silver Sulfadiazine 1 % Cream 20 Gm Tube) 1 appl TOPICAL DAILY [facility] Last Admin: 07/10/21 08:11 Dose: 1 appl Documented by: YVETTE Labs CBC & Chem 7: 07/10/21 07:19 07/10/21 07:19 Labs: Laboratory Results - last 24 hr 07/09/21 07/09/21 07/10/21 16:12 21:07 07:19 MCV 62.8 L MCH 18.5 L MCHC 29.5 L RDW 14.8 Plt Count 612 H MPV 8.5 L Absolute Nucleated RBC 0.020 H Nucleated RBC % (auto) 0.2 Anion Gap Estim Creat Clear Calc Estimated GFR POC Glucose 257 H 189 H Random Glucose Calcium 07/10/21 07/10/21 07/10/21 07:19 07:19 07:51 MCV MCH MCHC RDW Plt Count MPV Absolute Nucleated RBC Nucleated RBC % (auto) Anion Gap 12 Estim Creat Clear Calc 45.1 45.1 Estimated GFR 44 44 POC Glucose 254 H Random Glucose 279 H Calcium 9.3 07/10/21 13:41 MCV MCH MCHC RDW Plt Count MPV Absolute Nucleated RBC Nucleated RBC % (auto) Anion Gap Estim Creat Clear Calc Estimated GFR POC Glucose 191 H Random Glucose Calcium Microbiology Microbiology Results: Microbiology 07/09/21 09:02 Blood Culture - Preliminary Blood - Venous No growth after 24 hours. 07/09/21 09:02 Blood Culture - Preliminary Blood - Venous No growth after 24 hours. Assessment and Plan (1) COVID-19 virus infection: Status: Acute (2) Chemical burn of foot: Status: Acute (3) Toe ulcer due to DM: Status: Acute (4) Osteomyelitis: Status: Acute Assessment and Plan: This is a 56 yo F who was admitted to [facility] last week after sustaining chemical rosales. She was diagnosed with cellulitis and likely ostemyelitis of her L toes. She had operative debridement + half-way IV antibiotics planned, but she decided to leave AMA. She now returns for further treatment. Cellulitis / Osteomyelitis. Secondary to chemical rosales + Diabetes + Peripheral arterial disease IV vancomcyin? / Zosyn for now seen by ID last admission with recommendations of Ertapenam x 6weeks Vascular surgery consult follow up blood cultures, neg for 24 hrs, will wait for 48hrs then obtain picc line monitor renal function and vancomcyin levels DM, poorly controlled hold orals continue lantus, add sliding scale diabetic diet PAD continue asa + statin vascular surg. consult HTN BP on the softer side as was the case last admission hold xavier + hctz COVID+ asymptomatic, incidentally found on routine swab as part of admission protocol no hypoxia will order cxr Full Code DVT pptx, Lovenox Reports Yessenia(daughter) as HCP Attending Dr. Nava Quality Stroke Does the patient have a stroke diagnosis?: No VTE Prior VTE?: No VTE Risk Level:: Medical - moderate - high VTE Device Contraindication: Treatment Not Indicated VTE Drug Contraindication: N/A - Med Ordered
[2021-07-10 16:58] VITALS: BP 124/66; PULSE 86; RESP 18; TEMP 36.6
[2021-07-10 17:57] LABS: Glucose, Whole Blood 222 mg/dL (60-115)
[2021-07-10 20:29] LABS: Glucose, Whole Blood 327 mg/dL (60-115)
[2021-07-10] MEDS: Atorvastatin Calcium 40 MG TABLET PO (20:38)
[2021-07-10 22:06] VITALS: BP 137/80; PULSE 85; RESP 16; TEMP 36.5; O2SAT 99
[2021-07-11] VITALS (8 sets, daily range): BP systolic 105–147; BP diastolic 46–90; PULSE 80–97; RESP 12–20; TEMP 36.6–36.8; O2SAT 94–99
[2021-07-11] MEDS: Piperacillin Sodium/Tazobactam 3.375 GM in 0.9 % Sodium Chloride 50 ML IV ×3 (03:24→18:16)
[2021-07-11 07:56] LABS: Glucose, Whole Blood 239 mg/dL (60-115)
[2021-07-11] MEDS: Aspirin Enteric Coated 81 MG TABLET.DR PO (08:07)
[2021-07-11] MEDS: Ezetimibe 10 MG TABLET PO (08:08)
[2021-07-11] MEDS: Insulin Glargine,Hum.rec.anlog 100 UNIT/ML 10 ML VIAL 15 UNIT SUBCUT (08:08)
[2021-07-11] MEDS: Insulin Lispro 100 UNIT/ML 3 ML VIAL SUBCUT ×4 (08:08→21:24)
--- NOTE | 2021-07-11 08:19 | PC.NURSE ---
Pt A&Ox3, LCA, no pain at this time. Medicated as per MAR orders with insulin and IV antibiotics. Breakfast tray provided as well as self care products. Awaiting bed assignment at this time. Will continue to monitor.
[2021-07-11 08:20] LABS: Creatinine Clr Calc Pharmacy 54.1; Estimated Glomerular Filt Rate 54
[2021-07-11 08:35] LABS: Vancomycin Random 14.4 mcg/mL (15-20)
[2021-07-11] MEDS: vancomycin HCL 1,250 MG in 0.9 % Sodium Chloride 250 ML 166.7 MG IV (10:09)
[2021-07-11] MEDS: Silver Sulfadiazine 1 % Cream 20 GM TUBE 1 APPL TOPICAL (11:38)
[2021-07-11] MEDS: Enoxaparin Sodium 40 MG/0.4 ML SYRINGE SUBCUT (12:13)
[2021-07-11 12:42] LABS: Glucose, Whole Blood 216 mg/dL (60-115)
--- NOTE | 2021-07-11 14:29 | P.PNIM_ITS ---
Subjective Subjective Date of Service: 07/11/21 Review of Systems Follow up left distal phalanx osteomyelitis No pain, soaking feet in warm soapy water Physical Exam Vital Signs: Vital Signs: Last Vital Signs Temp 97.9 F 07/11/21 03:32 Pulse 97 07/11/21 12:59 Resp 16 07/11/21 12:59 BP 120/59 L 07/11/21 12:59 Pulse Ox 97 07/11/21 12:59 BMI result Body Mass Index 33.7 Appearing in no acute distress lung sounds are clear to auscultation heart regular rate rhythm, clear S1, S2 positive bowel sounds, abdomen is soft, nontender neuro patient is alert x3, no focal deficits eschar noted to plantar aspect of toes Burn wound to dorsum of both feet, pink granulation tissue noted Objective Data Active Medications Acetaminophen (Acetaminophen 325 Mg Tablet) 650 mg PO Q6H PRN PRN Reason: Pain, Mild (Pain Scale 1-3) Aspirin (Aspirin Enteric Coated 81 Mg Tablet.) 81 mg PO DAILY [facility] Last Admin: 07/11/21 08:07 Dose: 81 mg Documented by: AL Atorvastatin Calcium (Atorvastatin Calcium 40 Mg Tablet) 40 mg PO BEDTIME [facility] Last Admin: 07/10/21 20:38 Dose: 40 mg Documented by: BROOK Ezetimibe (Ezetimibe 10 Mg Tablet) 10 mg PO DAILY [facility] Last Admin: 07/11/21 08:08 Dose: 10 mg Documented by: AL Enoxaparin Sodium (Enoxaparin Sodium 40 Mg/0.4 Ml Syringe) 40 mg SUBCUT Q24H [facility] Last Admin: 07/11/21 12:13 Dose: 40 mg Documented by: MARISA Piperacillin Sod/Tazobactam (Sod 3.375 gm/ Sodium Chloride) 50 mls @ 100 mls/hr IV Q6H [facility] Last Infusion: 07/11/21 10:19 Dose: 0 mls/hr Documented by: AL Vancomycin HCl 1,250 mg/ (Sodium Chloride) 250 mls @ 166.667 mls/hr IV Q24H [facility] Last Infusion: 07/11/21 12:10 Dose: 0 mls/hr Documented by: MARISA Insulin Glargine (Insulin Glargine,Hum.Rec.Anlog 100 Unit/Ml 10 Ml Vial) 15 unit SUBCUT DAILY [facility] Last Admin: 07/11/21 08:08 Dose: 15 unit Documented by: AL Insulin Human Lispro (Insulin Lispro 100 Unit/Ml 3 Ml Vial) 0 unit SUBCUT QIDACHS [facility]; Protocol Last Admin: 07/11/21 13:00 Dose: 4 unit Documented by: MARISA Ondansetron HCl (Ondansetron Hcl 4 Mg/2 Ml Vial) 4 mg IVPUSH Q8H PRN PRN Reason: Nausea and Vomiting Pharmacy Consult (Consult Rx Perform Med Rec) 1 each MISCELLANE ONCE PRN PRN Reason: Consult order Pharmacy Consult (Consult Rx Vancomycin Dosing) 1 each MISCELLANE DAILY PRN PRN Reason: Consult order Silver Sulfadiazine (Silver Sulfadiazine 1 % Cream 20 Gm Tube) 1 appl TOPICAL DAILY [facility] Last Admin: 07/11/21 11:38 Dose: 1 appl Documented by: AL Labs CBC & Chem 7: 07/10/21 07:19 07/11/21 07:49 Labs: Laboratory Results - last 24 hr 07/10/21 07/10/21 07/11/21 17:53 20:11 07:41 Estim Creat Clear Calc Estimated GFR POC Glucose 222 H 327 H 239 H Random Vancomycin 07/11/21 07/11/21 07/11/21 07:49 07:49 12:32 Estim Creat Clear Calc 54.1 Estimated GFR 54 POC Glucose 216 H Random Vancomycin 14.4 L Microbiology Microbiology Results: Microbiology 07/09/21 09:02 Blood Culture - Preliminary Blood - Venous No growth after 48 hours. 07/09/21 09:02 Blood Culture - Preliminary Blood - Venous No growth after 48 hours. Assessment and Plan (1) Toe ulcer due to DM: Status: Acute (2) Osteomyelitis: Status: Acute (3) Cellulitis: Status: Acute Assessment and Plan: This is a 56 yo F who was admitted to [facility] last week after sustaining chemical rosales. She was diagnosed with cellulitis and likely osteomyelitis of her L toes. She had operative debridement + custodial IV antibiotics planned, but she decided to leave [place]. She now returns for further treatment. Cellulitis / Osteomyelitis. Secondary to chemical rosales + Diabetes + Peripheral arterial disease IV vancomcyin? / Zosyn for now seen by ID last admission with recommendations of Ertapenam x 6weeks Vascular surgery consult, declined debridement follow up blood cultures, neg after 48hrs monitor renal function and vancomcyin levels PICC line ordered DM, poorly controlled hold orals continue lantus, add sliding scale diabetic diet PAD continue asa + statin vascular surg. consult HTN BP on the softer side as was the case last admission hold xavier + hctz COVID+ asymptomatic, incidentally found on routine swab as part of admission protocol no hypoxia will order cxr Full Code DVT pptx, Lovenox Reports Yessenia(daughter) as HCP Attending Dr. Nava Quality Stroke Does the patient have a stroke diagnosis?: No VTE Prior VTE?: No VTE Risk Level:: Medical - moderate - high VTE Device Contraindication: Treatment Not Indicated VTE Drug Contraindication: N/A - Med Ordered
[2021-07-11 16:57] LABS: Glucose, Whole Blood 214 mg/dL (60-115)
--- NOTE | 2021-07-11 19:35 | PC.NURSE ---
Assumed care of pt at 1900. Pt resting in bed, attached to telemetry monitor, call light at hand, in NAD. Given dinner tray and ice water. Awaiting inpatient bed, denies further needs at this time, educated to call for assistance if needed
[2021-07-11 21:01] LABS: Glucose, Whole Blood 309 mg/dL (60-115)
[2021-07-11] MEDS: Atorvastatin Calcium 40 MG TABLET PO (21:23)
[2021-07-12] MEDS: Piperacillin Sodium/Tazobactam 3.375 GM in 0.9 % Sodium Chloride 50 ML IV ×4 (00:16→21:47)
[2021-07-12 00:18] VITALS: PULSE 93; RESP 18
[2021-07-12 04:11] VITALS: PULSE 82; RESP 17
[2021-07-12 05:51] VITALS: BP 110/41; PULSE 92; RESP 20; O2SAT 97
[2021-07-12 06:32] LABS: Estimated Glomerular Filt Rate 53
[2021-07-12 07:10] LABS: Glucose, Whole Blood 307 mg/dL (60-115)
[2021-07-12 08:05] VITALS: BP 132/70; PULSE 93; RESP 16; TEMP 36.6; O2SAT 96
[2021-07-12] MEDS: Aspirin Enteric Coated 81 MG TABLET.DR PO (08:07)
[2021-07-12] MEDS: Insulin Glargine,Hum.rec.anlog 100 UNIT/ML 10 ML VIAL 15 UNIT SUBCUT (08:07)
[2021-07-12] MEDS: Ezetimibe 10 MG TABLET PO (08:07)
[2021-07-12] MEDS: Silver Sulfadiazine 1 % Cream 20 GM TUBE 1 APPL TOPICAL (08:41)
--- NOTE | 2021-07-12 10:17 | PC.NURSE ---
KRISTEN Duran at bedside for PICC line insertion
--- NOTE | 2021-07-12 11:00 | PC.NURSE ---
Pt received from police shift commander: Pt AOX4 and offers no complaints at this time. Heart sounds normal and lungs clear. B/L top of foot burn wounds noted to be healing well with silvadene cream. Pt performs her own wound care. Pt still receiving IV abt, and pending PICC line insertion.
--- NOTE | 2021-07-12 12:06 | PC.NURSE ---
KRISTEN Duran from still at bedside for PICC line insertion
--- NOTE | 2021-07-12 13:09 | PC.NURSE ---
IR completed from PICC line insertion at this time. PICC line placed at R basilic. IV ABT infusing at this time.
[2021-07-12] MEDS: Enoxaparin Sodium 40 MG/0.4 ML SYRINGE SUBCUT (13:10)
--- NOTE | 2021-07-12 13:13 | P.PICC_ITS ---
PICC Line Insertion NPICC Diagnosis: OSTEOMYELITIS Indication: SKILLED NURSING IV ANTIBIOTICS Pertinent Labs: REVIEWED Technique: Following informed consent including risks, benefits and alternatives and using sterile technique including cap and mask, sterile gown, glove and drape, the RIGHT arm was prepped and draped in the usual sterile fashion of full barrier technique with CHG. Following completion of [place] Protocol the skin and soft tissues were anesthetized with 1% Lidocaine plain. Using ultrasound guidance, CEPHALIC vein access was obtained IN SINGLE ATTEMPT BY DR HERNÁNDEZ WHO ASSISTED WITH VENOUS ACCESS. INITIAL ATTEMPT TO BASILIC VEIN BY THIS RN UNSUCCESSFUL. Over an 0.018 wire through peel-away sheath, a 5-[employer] [place] [place], PASV, DOUBLE LUMEN PICC line was positioned. Catheter length is 45 CM internal length, 0 CM external length, for a total trimmed length of 45 CM. The procedure was performed in ED OVERFLOW 12. Tip verification was performed by Anna Velez with Sherlock 3CG. Tip located in SVC. Ultrasound was used to document vein patency and for needle entry. A formal ultrasound picture and cardiac rhythm strip was recorded. Vascular Crime Prevention Worker has released the line for use and it is currently dressed with a StatLock, Tegaderm, and CHG disc. Verification has been performed for blood return and line patency. Arm Circumference: 37 CM Equipment: [employer] POWERPICC SOLO Catheter Type: 5-[employer] [place] [place], PASV, DOUBLE LUMEN Lot #: [id number]
[2021-07-12 13:44] LABS: Glucose, Whole Blood 302 mg/dL (60-115)
[2021-07-12] MEDS: Insulin Lispro 100 UNIT/ML 3 ML VIAL SUBCUT ×3 (13:51→21:47)
[2021-07-12] MEDS: vancomycin HCL 1,250 MG in 0.9 % Sodium Chloride 250 ML 166.67 MG IV (13:52)
--- NOTE | 2021-07-12 16:23 | P.PNIM_ITS ---
Subjective Subjective Date of Service: 07/12/21 Interval History: No acute issues overnight pain control adequate Review of Systems Denies chest pain Denies shortness of breath Denies nausea vomiting diarrhea Physical Exam Vital Signs: Vital Signs: Last Vital Signs Temp 97.9 F 07/12/21 08:05 Pulse 93 07/12/21 08:05 Resp 16 07/12/21 08:05 BP 132/70 07/12/21 08:05 Pulse Ox 96 07/12/21 08:05 BMI result Body Mass Index 33.7 Const: Other: No acute distress Resp: Other: Clear to auscultation bilaterally no rales rhonchi wheezes Cardio: Other: No S4; positive S1-S2; no S3 murmurs or but gallops GI: Other: Soft nontender nondistended with normoactive bowel sounds Extrem: Other: The dorsum of bilateral feet with chemical burn to right more extensive than left Objective Data Active Medications Acetaminophen (Acetaminophen 325 Mg Tablet) 650 mg PO Q6H PRN PRN Reason: Pain, Mild (Pain Scale 1-3) Aspirin (Aspirin Enteric Coated 81 Mg Tablet.) 81 mg PO DAILY [facility] Last Admin: 07/12/21 08:07 Dose: 81 mg Documented by: CHRISTINE Atorvastatin Calcium (Atorvastatin Calcium 40 Mg Tablet) 40 mg PO BEDTIME [facility] Last Admin: 07/11/21 21:23 Dose: 40 mg Documented by: MELBA Ezetimibe (Ezetimibe 10 Mg Tablet) 10 mg PO DAILY [facility] Last Admin: 07/12/21 08:07 Dose: 10 mg Documented by: CHRISTINE Enoxaparin Sodium (Enoxaparin Sodium 40 Mg/0.4 Ml Syringe) 40 mg SUBCUT Q24H [facility] Last Admin: 07/12/21 13:10 Dose: 40 mg Documented by: CHRISTINE Vancomycin HCl 1,250 mg/ (Sodium Chloride) 250 mls @ 166.667 mls/hr IV Q24H [facility] Last Infusion: 07/12/21 15:18 Dose: 0 mls/hr Documented by: CHRISTINE Piperacillin Sod/Tazobactam (Sod 3.375 gm/ Sodium Chloride) 50 mls @ 100 mls/hr IV Q6H [facility] Last Infusion: 07/12/21 13:42 Dose: 0 mls/hr Documented by: CHRISTINE Insulin Glargine (Insulin Glargine,Hum.Rec.Anlog 100 Unit/Ml 10 Ml Vial) 15 u nit SUBCUT DAILY [facility] Last Admin: 07/12/21 08:07 Dose: 15 unit Documented by: CHRISTINE Insulin Human Lispro (Insulin Lispro 100 Unit/Ml 3 Ml Vial) 0 unit SUBCUT QIDACHS [facility]; Protocol Last Admin: 07/12/21 13:51 Dose: 8 unit Documented by: CHRISTINE Comments: B/S 302 Ondansetron HCl (Ondansetron Hcl 4 Mg/2 Ml Vial) 4 mg IVPUSH Q8H PRN PRN Reason: Nausea and Vomiting Pharmacy Consult (Consult Rx Perform Med Rec) 1 each MISCELLANE ONCE PRN PRN Reason: Consult order Pharmacy Consult (Consult Rx Vancomycin Dosing) 1 each MISCELLANE DAILY PRN PRN Reason: Consult order Silver Sulfadiazine (Silver Sulfadiazine 1 % Cream 20 Gm Tube) 1 appl TOPICAL DAILY [facility] Last Admin: 07/12/21 08:41 Dose: 1 appl Documented by: CHRISTINE Labs CBC & Chem 7: 07/10/21 07:19 07/12/21 06:08 Labs: Laboratory Results - last 24 hr 07/11/21 07/11/21 07/12/21 16:49 20:57 06:08 Estim Creat Clear Calc 53.0 Estimated GFR 53 POC Glucose 214 H 309 H 07/12/21 07/12/21 07:05 13:41 Estim Creat Clear Calc Estimated GFR POC Glucose 307 H 302 H Assessment and Plan (1) COVID-19 virus infection: Status: Acute (2) Chemical burn of foot: Status: Acute (3) Diabetes: Status: Acute Assessment and Plan: This is a 56 yo F who [place] [facility] [place] sustaining chemical rosales. She was diagnosed with cellulitis and likely osteomyelitis of her L toes. She had operative debridement + longterm IV antibiotics planned, but she decided to leave [facility]. She now returns for further treatment. 1.Cellulitis / Osteomyelitis. Secondary to chemical rosales + Diabetes + Peripheral arterial disease IV vancomcyin? / Zosyn for now Discussed duration and choice of antibiotics with ID. Silvadene dressings as per vascular 2.DMII Restart metformin and Actos as per home doses Lantus 15 units at HS; sliding scale to cover Adjust as indicated 3.PAD No acute interventions as per vascular 4.HTN Acceptable control off meds. Restart when appropriate 5.COVID+ Asymptomatic; chest x-ray clear Decadron 6 mg IV daily supplemental O2 as indicated Full Code DVT pptx, Lovenox Quality Stroke Does the patient have a stroke diagnosis?: No VTE Prior VTE?: No VTE Risk Level:: Medical - moderate - high VTE Device Contraindication: Treatment Not Indicated VTE Drug Contraindication: N/A - Med Ordered
[2021-07-12 18:35] LABS: Glucose, Whole Blood 227 mg/dL (60-115)
[2021-07-12] MEDS: dexAMETHasone sod phosphate 4 MG/ML VIAL 6 MG IVPUSH (19:17)
[2021-07-12 19:37] VITALS: BP 112/53; PULSE 84; RESP 18; TEMP 36.8; O2SAT 99
[2021-07-12 21:17] LABS: Glucose, Whole Blood 201 mg/dL (60-115)
[2021-07-12] MEDS: Atorvastatin Calcium 40 MG TABLET PO (21:47)
--- NOTE | 2021-07-12 21:55 | PC.NURSE ---
Assumed care of pt Pt ambulatory in room Gait even and steady NAD Pt medicated per MAR Pt tolerated well Pt given sandwich and water per request Will continue to monitor
--- NOTE | 2021-07-12 23:45 | PC.NURSE ---
Pt given box of tissues per request
[2021-07-12 23:57] VITALS: BP 149/75; PULSE 84; RESP 18; TEMP 36.2; O2SAT 98
[2021-07-13] MEDS: Piperacillin Sodium/Tazobactam 3.375 GM in 0.9 % Sodium Chloride 50 ML IV ×4 (03:29→20:16)
[2021-07-13 06:13] VITALS: BP 137/74; PULSE 89; RESP 20; TEMP 36.5; O2SAT 99
[2021-07-13 07:26] LABS: MANUAL DIFF FLAG NO
[2021-07-13 07:34] LABS: Basophils Absolute Auto 0.1 X10*3/uL (0.0-0.2); Basophils Percent Auto 0.3 % (0-2); Eosinophils Percent Auto 0.1 % (0-4); Hematocrit 27.2 % (37.0-47.0); Hemoglobin 8.2 g/dl (12.0-16.0); Imm Gran Abs Auto 0.11 X10*3/uL (0.00-0.03); Imm Gran Pct Auto 0.8 % (0.0-0.4); Lymphocytes Absolute Auto 1.9 X10*3/uL (1.2-4.9); Lymphocytes Percent Auto 13.4 % (20-40); Mean Corpuscular HGB Conc 30.1 g/dl (31.0-35.0); Mean Platelet Volume 8.7 fL (9.4-12.3); Monocytes Absolute Auto 0.5 X10*3/uL (0.1-1.2); Monocytes Percent Auto 3.7 % (2-11); Neutrophils Absolute Auto 11.8 x10*3/uL (2.0-8.3); Neutrophils Percent Auto 81.7 % (45-73); Platelet Count 674 X10*3/uL (160-400); Red Blood Count 4.32 X10*6/uL (4.20-5.50); White Blood Count 14.5 X10*3/uL (4.8-10.8)
[2021-07-13 07:42] LABS: Glucose, Whole Blood 370 mg/dL (60-115)
[2021-07-13 08:02] LABS: Alanine Aminotransferase 21 U/L (0-31); Albumin Level 3.8 g/dL (3.5-5.0); Alkaline Phosphatase 82 U/L (39-117); Anion Gap 14 (12-20); Aspartate Amino Transferase 21 U/L (5-31); Bilirubin Total 0.2 mg/dL (0.0-1.0); Blood Urea Nitrogen 23 mg/dL (9-16); Calcium 10.1 mg/dL (8.4-10.2); Carbon Dioxide 27 mmol/L (22-29); Chloride 99 mmol/L (96-108); Creatinine Clr Calc Pharmacy 43.7; Estimated Glomerular Filt Rate 42; Glucose Fasting 398 mg/dL (60-99); Potassium 4.5 mmol/L (3.3-5.1); Sodium 135 mmol/L (135-145); Total Protein 7.5 g/dL (6.5-8.0)
--- NOTE | 2021-07-13 09:11 | PC.NURSE ---
Pt received from shift production supervisor: PT AOX4 and offers no complaints. Pt had R basilic mid line placed yesterday, and IV ABT have been running with no issues. Heart sounds normal and lungs clear. Pt abd soft and non-tender. B/L feet rosales healing well with silvadene cream. Horace healing tissue noted. Pt performs her own wound care. Pending plan of care in terms of hospital admission.
--- NOTE | 2021-07-13 09:22 | HE.PHANOTE ---
SCr increase from 1.07 to 1.3 over 24 hours. Decrease vanco dose to 1000 mg Q24H
[2021-07-13] MEDS: dexAMETHasone sod phosphate 4 MG/ML VIAL 6 MG IVPUSH (10:07)
[2021-07-13] MEDS: Aspirin Enteric Coated 81 MG TABLET.DR PO (10:07)
[2021-07-13] MEDS: Insulin Lispro 100 UNIT/ML 3 ML VIAL SUBCUT ×4 (10:07→23:14)
[2021-07-13] MEDS: Insulin Glargine,Hum.rec.anlog 100 UNIT/ML 10 ML VIAL 15 UNIT SUBCUT (10:07)
[2021-07-13] MEDS: Ezetimibe 10 MG TABLET PO (10:07)
[2021-07-13] MEDS: Silver Sulfadiazine 1 % Cream 20 GM TUBE 1 APPL TOPICAL (10:08)
[2021-07-13] MEDS: vancomycin HCL 1,000 MG in 0.9 % Sodium Chloride 250 ML 270 MG IV (11:15)
[2021-07-13 13:53] LABS: Glucose, Whole Blood 246 mg/dL (60-115)
--- NOTE | 2021-07-13 15:26 | HO.PM.IMPN ---
Subjective Subjective Date of Service: 07/13/21 Interval History: No acute issues overnight; states feet feel better Review of Systems Denies chest pain Denies shortness of breath Denies nausea vomiting diarrhea Physical Exam Vital Signs: Vital Signs: Last Vital Signs Temp 97.7 F 07/13/21 06:13 Pulse 89 07/13/21 06:13 Resp 20 07/13/21 06:13 BP 137/74 07/13/21 06:13 Pulse Ox 99 07/13/21 06:13 BMI result Body Mass Index 33.7 Const: Other: No acute distress Resp: Other: Clear to auscultation bilaterally no rales rhonchi wheezes Cardio: Other: No S4; positive S1-S2; no S3 murmurs or but gallops GI: Other: Soft nontender nondistended with normoactive bowel sounds Extrem: Other: The dorsum of bilateral feet with chemical burn to right more extensive than left Objective Data Active Medications Acetaminophen (Acetaminophen 325 Mg Tablet) 650 mg PO Q6H PRN PRN Reason: Pain, Mild (Pain Scale 1-3) Aspirin (Aspirin Enteric Coated 81 Mg Tablet.) 81 mg PO DAILY [facility] Last Admin: 07/13/21 10:07 Dose: 81 mg Documented by: CHRISTINE Atorvastatin Calcium (Atorvastatin Calcium 40 Mg Tablet) 40 mg PO BEDTIME [facility] Last Admin: 07/12/21 21:47 Dose: 40 mg Documented by: JOAQUIN Dexamethasone Sodium Phosphate (Dexamethasone Sod Phosphate 4 Mg/Ml Vial) 6 mg IVPUSH DAILY [facility] Last Admin: 07/13/21 10:07 Dose: 6 mg Documented by: CHRISTINE Ezetimibe (Ezetimibe 10 Mg Tablet) 10 mg PO DAILY [facility] Last Admin: 07/13/21 10:07 Dose: 10 mg Documented by: CHRISTINE Enoxaparin Sodium (Enoxaparin Sodium 40 Mg/0.4 Ml Syringe) 40 mg SUBCUT Q24H [facility] Last Admin: 07/12/21 13:10 Dose: 40 mg Documented by: CHRISTINE Piperacillin Sod/Tazobactam (Sod 3.375 gm/ Sodium Chloride) 50 mls @ 100 mls/hr IV Q6H [facility] Last Infusion: 07/13/21 10:34 Dose: 0 mls/hr Documented by: CHRISTINE Insulin Glargine (Insulin Glargine,Hum.Rec.Anlog 100 Unit/Ml 10 Ml Vial) 15 unit SUBCUT DAILY [facility] Last Admin: 07/13/21 10:07 Dose: 15 unit Documented by: CHRISTINE Insulin Human Lispro (Insulin Lispro 100 Unit/Ml 3 Ml Vial) 0 unit SUBCUT QIDACHS [facility]; Protocol Last Admin: 07/13/21 10:07 Dose: 10 unit Documented by: CHRISTINE Comments: B/S 270 Ondansetron HCl (Ondansetron Hcl 4 Mg/2 Ml Vial) 4 mg IVPUSH Q8H PRN PRN Reason: Nausea and Vomiting Pharmacy Consult (Consult Rx Perform Med Rec) 1 each MISCELLANE ONCE PRN PRN Reason: Consult order Pharmacy Consult (Consult Rx Vancomycin Dosing) 1 each MISCELLANE DAILY PRN PRN Reason: Consult order Silver Sulfadiazine (Silver Sulfadiazine 1 % Cream 20 Gm Tube) 1 appl TOPICAL DAILY [facility] Last Admin: 07/13/21 10:08 Dose: 1 appl Documented by: CHRISTINE Labs CBC & Chem 7: 07/13/21 07:18 07/13/21 07:18 Labs: Laboratory Results - last 24 hr 07/09/21 07/10/21 07/12/21 09:03 07:19 18:32 WBC 9.6 9.8 MCV MCH MCHC RDW Plt Count MPV Immature Gran % (Auto) Neut % (Auto) Lymph % (Auto) [place] % (Auto) Eos % (Auto) Baso % (Auto) Lymph # (Auto) [place] # (Auto) Eos # (Auto) Baso # (Auto) Abs Immat Gran (auto) Absolute Neuts (auto) Absolute Nucleated RBC Nucleated RBC % (auto) Anion Gap Estim Creat Clear Calc Estimated GFR POC Glucose 227 H Fasting Glucose Calcium Total Bilirubin AST ALT Alkaline Phosphatase Total Protein Albumin 07/12/21 07/13/21 07/13/21 21:13 07:18 07:18 WBC 14.5 H MCV 63.0 L MCH 19.0 L MCHC 30.1 L RDW 15.0 Plt Count 674 H MPV 8.7 L Immature Gran % (Auto) 0.8 H Neut % (Auto) 81.7 H Lymph % (Auto) 13.4 L [place] % (Auto) 3.7 Eos % (Auto) 0.1 Baso % (Auto) 0.3 Lymph # (Auto) 1.9 [place] # (Auto) 0.5 Eos # (Auto) 0.0 Baso # (Auto) 0.1 Abs Immat Gran (auto) 0.11 H Absolute Neuts (auto) 11.8 H Absolute Nucleated RBC 0.000 Nucleated RBC % (auto) 0.0 Anion Gap 14 Estim Creat Clear Calc 43.7 Estimated GFR 42 POC Glucose 201 H Fasting Glucose 398 H* Calcium 10.1 D Total Bilirubin 0.2 AST 21 D ALT 21 Alkaline Phosphatase 82 Total Protein 7.5 Albumin 3.8 07/13/21 07/13/21 07:37 13:44 WBC MCV MCH MCHC RDW Plt Count MPV Immature Gran % (Auto) Neut % (Auto) Lymph % (Auto) [place] % (Auto) Eos % (Auto) Baso % (Auto) Lymph # (Auto) [place] # (Auto) Eos # (Auto) Baso # (Auto) Abs Immat Gran (auto) Absolute Neuts (auto) Absolute Nucleated RBC Nucleated RBC % (auto) Anion Gap Estim Creat Clear Calc Estimated GFR POC Glucose 370 H* 246 H Fasting Glucose Calcium Total Bilirubin AST ALT Alkaline Phosphatase Total Protein Albumin Assessment and Plan (1) Chemical burn of foot: Status: Acute (2) Cellulitis: Status: Acute (3) COVID-19 virus infection: Status: Acute Assessment and Plan: This is a 56 yo F who [place] [facility] [place] chemical rosales. She was diagnosed with cellulitis and likely osteomyelitis of her L toes. 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 She now returns for further treatment. 1.Cellulitis / Osteomyelitis. Secondary to chemical rosales + Diabetes + Peripheral arterial disease IV vancomcyin?... Zosyn D seed as per ID Discussed duration and choice of antibiotics with ID. Silvadene dressings as per vascular If no acute issues. .. Discharge home on oral doxycycline and a.m. 2.DMII Restart metformin and Actos as per home doses Lantus 15 units at HS; sliding scale to cover Adjust as indicated 3.PAD No acute interventions as per vascular 4.HTN Acceptable control off meds. Restart when appropriate 5.COVID+ Asymptomatic; chest x-ray clear Decadron 6 mg IV daily supplemental O2 as indicated Full Code DVT pptx, Lovenox Quality Stroke Does the patient have a stroke diagnosis?: No VTE Prior VTE?: No VTE Risk Level:: Medical - moderate - high VTE Device Contraindication: Treatment Not Indicated VTE Drug Contraindication: N/A - Med Ordered
[2021-07-13 15:42] VITALS: BP 166/92; PULSE 90; RESP 15; TEMP 37.1; O2SAT 96
[2021-07-13] MEDS: Enoxaparin Sodium 40 MG/0.4 ML SYRINGE SUBCUT (15:43)
[2021-07-13 17:59] LABS: Glucose, Whole Blood 431 mg/dL (60-115)
[2021-07-13 20:00] VITALS: RESP 16
[2021-07-13] MEDS: Atorvastatin Calcium 40 MG TABLET PO (20:15)
[2021-07-13 21:16] LABS: Glucose, Whole Blood 387 mg/dL (60-115)
[2021-07-13 21:24] VITALS: BP 134/84; PULSE 86; RESP 18; TEMP 36.1; O2SAT 99
[2021-07-13 22:00] VITALS: RESP 16
[2021-07-13 22:28] LABS: Glucose, Whole Blood 325 mg/dL (60-115)
[2021-07-13 23:59] VITALS: RESP 18
[2021-07-14 00:29] LABS: Glucose, Whole Blood 289 mg/dL (60-115)
[2021-07-14] MEDS: Piperacillin Sodium/Tazobactam 3.375 GM in 0.9 % Sodium Chloride 50 ML IV ×3 (00:34→13:29)
[2021-07-14 01:03] VITALS: BP 127/64; PULSE 86; RESP 18; TEMP 36.2; O2SAT 98
[2021-07-14 02:00] VITALS: PULSE 18
[2021-07-14 05:13] VITALS: BP 114/58; PULSE 86; RESP 16; O2SAT 97
[2021-07-14 06:00] VITALS: RESP 16
[2021-07-14 08:05] LABS: MANUAL DIFF FLAG NO
[2021-07-14 08:09] LABS: Basophils Absolute Auto 0.1 X10*3/uL (0.0-0.2); Basophils Percent Auto 0.3 % (0-2); Eosinophils Absolute Auto 0.2 X10*3/uL (0.0-0.4); Eosinophils Percent Auto 1.1 % (0-4); Hematocrit 26.4 % (37.0-47.0); Hemoglobin 7.9 g/dl (12.0-16.0); Imm Gran Abs Auto 0.08 X10*3/uL (0.00-0.03); Imm Gran Pct Auto 0.5 % (0.0-0.4); Lymphocytes Absolute Auto 4.8 X10*3/uL (1.2-4.9); Lymphocytes Percent Auto 28.8 % (20-40); Mean Corpuscular HGB Conc 29.9 g/dl (31.0-35.0); Mean Corpuscular Hemoglobin 18.7 pg (27.0-33.0); Mean Platelet Volume 8.7 fL (9.4-12.3); Monocytes Absolute Auto 0.9 X10*3/uL (0.1-1.2); Monocytes Percent Auto 5.3 % (2-11); NRBC Pct Auto 0.1 /100WBC (0.0-0.2); Neutrophils Absolute Auto 10.7 x10*3/uL (2.0-8.3); Platelet Count 720 X10*3/uL (160-400); Red Blood Count 4.22 X10*6/uL (4.20-5.50); Red Cell Distribution Width 15.4 % (11.0-16.0); White Blood Count 16.7 X10*3/uL (4.8-10.8)
[2021-07-14 08:10] LABS: Mean Corpuscular Volume 62.6 fL (80.0-98.0)
[2021-07-14 08:22] LABS: Alanine Aminotransferase 30 U/L (0-31); Albumin Level 3.7 g/dL (3.5-5.0); Alkaline Phosphatase 79 U/L (39-117); Anion Gap 13 (12-20); Aspartate Amino Transferase 30 U/L (5-31); Bilirubin Total 0.2 mg/dL (0.0-1.0); Blood Urea Nitrogen 20 mg/dL (9-16); Calcium 10.1 mg/dL (8.4-10.2); Carbon Dioxide 26 mmol/L (22-29); Chloride 102 mmol/L (96-108); Creatinine Clr Calc Pharmacy 46.9; Estimated Glomerular Filt Rate 46; Glucose Fasting 171 mg/dL (60-99); Potassium 4.2 mmol/L (3.3-5.1); Sodium 137 mmol/L (135-145); Total Protein 7.4 g/dL (6.5-8.0)
[2021-07-14 08:27] LABS: Vancomycin Trough 12.4 mcg/mL (10.0-20.0)
[2021-07-14 08:34] LABS: Glucose, Whole Blood 214 mg/dL (60-115)
--- NOTE | 2021-07-14 08:40 | HE.PHANOTE ---
Patients cr decreased and trough is 12.4, according to insight, auc is only 383, since cr increased on higher dose (1250 mg) continue 1000 mg for now. Draw trough on 07/16 @0900 and continue to monitor cr.
[2021-07-14] MEDS: Aspirin Enteric Coated 81 MG TABLET.DR PO ×2 (09:45→09:46)
[2021-07-14] MEDS: Insulin Glargine,Hum.rec.anlog 100 UNIT/ML 10 ML VIAL 15 UNIT SUBCUT (09:45)
[2021-07-14] MEDS: Ezetimibe 10 MG TABLET PO ×2 (09:45→09:46)
[2021-07-14] MEDS: dexAMETHasone sod phosphate 4 MG/ML VIAL 6 MG IVPUSH (09:46)
[2021-07-14] MEDS: Insulin Lispro 100 UNIT/ML 3 ML VIAL SUBCUT (09:57)
[2021-07-14 11:45] VITALS: BP 137/66; PULSE 94; RESP 18; TEMP 36.3; O2SAT 99
--- NOTE | 2021-07-14 13:02 | MHC.CM.PN ---
Received notification from Dr Hyman that patient will be discharged home today. No services anticipated to be needed. Patient has transport at d/c. Continue to monitor for d/c needs.
[2021-07-14] MEDS: vancomycin HCL 1,000 MG in 0.9 % Sodium Chloride 250 ML 270 MG IV (13:34)
[2021-07-14] MEDS: Enoxaparin Sodium 40 MG/0.4 ML SYRINGE SUBCUT (14:11)
--- NOTE | 2021-07-14 14:18 | PM.DS ---
DS: Providers Provider Date of Service: 07/14/21 Date of admission: 07/09/21 10:55 Date of discharge: 07/14/21 Primary care physician: Jae Krishna MD Consults: 07/09/21 11:15 Consult to Vascular Surgery Routine Consulting Provider: Ton Vigil Reason for consultation: PAD with diabetic foot infections bilaterally DS: Diagnosis Discharge Diagnosis (1) Chemical burn of foot: Status: Acute (2) Cellulitis: Status: Acute (3) COVID-19 virus infection: Status: Acute DS: Summary Hospital Course Hospital Course: 56-year-old female presents to [facility] 07[facility]09[facility]2020 with complaints of worsening cellulitis in the backdrop of diabetic foot ulcers. She states she was cleaning with boiling water and bleach and spill them across her foot. She was seen by vascular who stated there was no acute intervention indicated; she was seen by infectious disease and initially thought to have osteomyelitis requiring PICC line. Upon further exam and discussion was felt that this is not osteomyelitis but cellulitis. She was maintained on vancomycin during the duration of her stay with improvement in her wounds. On the day of discharge, she is pain free and is medically suitable to continue/complete therapies as outpatient. Of note, she did test positive for COVID-19 however remained asymptomatic during her hospital stay Time Spent with Patient Time attestation: Total time spent providing and/or coordinating discharge services: Discharge coordination time: Greater than 30 minutes Quality: Stroke Does the patient have a stroke diagnosis?: No Physical Exam Vital Signs: Vital Signs: Last Vital Signs Temp 97.3 F 07/14/21 11:45 Pulse 94 07/14/21 11:45 Resp 18 07/14/21 11:45 BP 137/66 07/14/21 11:45 Pulse Ox 99 07/14/21 11:45 BMI result Body Mass Index 33.7 Const: Other: No acute distress Resp: Other: Clear to auscultation bilaterally no rales rhonchi wheezes Cardio: Other: No S4; positive S1-S2; no S3 murmurs or but gallops GI: Other: Soft nontender nondistended with normoactive bowel sounds Extrem: Other: The dorsum of bilateral feet with chemical burn to right more extensive than left DS: Data Data Completed and Pending Labs on day of discharge: Laboratory Results - last 24 hr 07/13/21 07/13/21 07/13/21 17:55 21:03 22:24 WBC RBC Hgb Hct MCV MCH MCHC RDW Plt Count MPV Immature Gran % (Auto) Neut % (Auto) Lymph % (Auto) [place] % (Auto) Eos % (Auto) Baso % (Auto) Lymph # (Auto) [place] # (Auto) Eos # (Auto) Baso # (Auto) Abs Immat Gran (auto) Absolute Neuts (auto) Absolute Nucleated RBC Nucleated RBC % (auto) Sodium Potassium Chloride Carbon Dioxide Anion Gap BUN Creatinine Estim Creat Clear Calc Estimated GFR POC Glucose 431 H* 387 H* 325 H Fasting Glucose Calcium Total Bilirubin AST ALT Alkaline Phosphatase Total Protein Albumin Vancomycin Trough 07/14/21 07/14/21 07/14/21 00:25 07:49 07:49 WBC 16.7 H RBC 4.22 Hgb 7.9 L Hct 26.4 L MCV 62.6 L MCH 18.7 L MCHC 29.9 L RDW 15.4 Plt Count 720 H MPV 8.7 L Immature Gran % (Auto) 0.5 H Neut % (Auto) 64.0 Lymph % (Auto) 28.8 [place] % (Auto) 5.3 Eos % (Auto) 1.1 Baso % (Auto) 0.3 Lymph # (Auto) 4.8 [place] # (Auto) 0.9 Eos # (Auto) 0.2 Baso # (Auto) 0.1 Abs Immat Gran (auto) 0.08 H Absolute Neuts (auto) 10.7 H Absolute Nucleated RBC 0.020 H Nucleated RBC % (auto) 0.1 Sodium 137 Potassium 4.2 Chloride 102 Carbon Dioxide 26 Anion Gap 13 BUN 20 H Creatinine 1.21 Estim Creat Clear Calc 46.9 Estimated GFR 46 POC Glucose 289 H Fasting Glucose 171 H Calcium 10.1 Total Bilirubin 0.2 AST 30 D ALT 30 Alkaline Phosphatase 79 Total Protein 7.4 Albumin 3.7 Vancomycin Trough 07/14/21 07/14/21 07:49 08:30 WBC RBC Hgb Hct MCV MCH MCHC RDW Plt Count MPV Immature Gran % (Auto) Neut % (Auto) Lymph % (Auto) [place] % (Auto) Eos % (Auto) Baso % (Auto) Lymph # (Auto) [place] # (Auto) Eos # (Auto) Baso # (Auto) Abs Immat Gran (auto) Absolute Neuts (auto) Absolute Nucleated RBC Nucleated RBC % (auto) Sodium Potassium Chloride Carbon Dioxide Anion Gap BUN Creatinine Estim Creat Clear Calc Estimated GFR POC Glucose 214 H Fasting Glucose Calcium Total Bilirubin AST ALT Alkaline Phosphatase Total Protein Albumin Vancomycin Trough 12.4 Discharge Plan Discharge Patient Disposition: Home, Self-Care Discharge Diagnosis: Chemical burn Referrals: [facility] [Outside] - 1 Week Jae Krishna MD [Primary Care Provider] - 1 Week Discharge Medications: New doxycycline hyclate 100 mg capsule 100 mg PO BID Qty: 10 RF: 0 dexamethasone [Decadron] 6 mg tablet 6 mg PO DAILY Qty: 7 RF: 0 Continued silver sulfadiazine 1 % cream 1 appl topical DAILY RF: 0 pioglitazone 15 mg tablet 1 tab PO DAILY RF: 0 atorvastatin 40 mg tablet 1 tab PO DAILY RF: 0 aspirin 81 mg tablet,delayed release (DR/EC) 1 tab PO DAILY RF: 0 metformin 1,000 mg tablet 1 tab PO BID RF: 0 lisinopril-hydrochlorothiazide 20-25 mg tablet 1 tab PO DAILY RF: 0 clotrimazole 1 % cream 1 appl topical BID RF: 0 ezetimibe 10 mg tablet 1 tab PO DAILY RF: 0 cholecalciferol (vitamin D3) 25 mcg (1,000 unit) tablet 1 tab PO DAILY RF: 0 Lantus Solostar U-100 Insulin 100 unit/mL (3 mL) insulin pen 15 unit subcut DAILY RF: 0 Discharge Orders: Discharge Order (Routine); Ordered 07/14/21 Ordered By: Maximus Hyman Diet: advance to usual diet Activity on Discharge: As tolerated Stand Alone Forms: Patient Portal Discharge page Care Plan Goals: Silvadene dressing bilateral dorsum of each foot. Change daily Health Concerns: Complete antibiotic and Decadron as ordered Plan of Treatment: Follow-up with PCP and vascular as outpatient Assessment: As above
--- NOTE | 2021-07-14 14:21 | MHC.CM.PN ---
Addendum entered by Sherrie Crespo 07/14/21 14:31: [facility] is not able to accept patient. Referral broadcasted to all agencies contracted with [facility]. Original Note: Per Dr Hyman, patient will need alf due to wound. Attempted to speak with Sara at [facility]. Left voicemail requesting return telephone call. Referral made to [facility]. Continue to monitor for d/c needs.
--- NOTE | 2021-07-14 14:46 | P.F2F_ITS ---
Service Date Service Date: 07/14/21 Encounter Date of encounter: 07/14/21 Reasons for Services Signs and symptoms assessed: Unsteady gait Reason for retirement: wound care Homebound: Leaving the home is medically contraindicated at this time without the asist of a device and/or another person due th the listed conditions above and below. Reason homebound: unsteady gait / fall risk Homebound supporting statement: Patient is homebound secondary to extensive cellulitis both feet and with unsteady gait Certification: Based on the above findings, I certify that this patient is confined to the home and needs intermittent retirement care, physical therapy and/or speech therapy, or continues to need occupational therapy. The patient is under my care, and I have initiated the establishment of the plan of care. The patient will be followed by a physician who will periodically review the plan of care.
--- NOTE | 2021-07-14 14:51 | MHC.CM.PN ---
[facility] is able to accept patient. Dr Hyman aware. Met with patient in regards to discharge planning. Patient agreeable to [facility]. Patient's daughter is here from [place] to help care for her. Continue to monitor for d/c needs.
--- NOTE | 2021-07-14 16:40 | PC.NURSE ---
FUNCTIONAL, INTACT, 5-MICRONESIAN, DOUBLE LUMEN, 45 CM PICC REMOVED FROM RUE PER REQUEST FROM HOSPITALIST. CLEAN/DRY DRESSING APPLIED W/ TEGADERM.
[2021-07-14 18:16] LABS: Glucose, Whole Blood 212 mg/dL (60-115)
--- NOTE | 2021-07-16 08:47 | MHC.CM.PN ---
[facility] that order for wound care supplies needs to be faxed to them before they can admit patient. Telephone orders for wound supplies obtained by Dr Hyman and faxed to [phone]. Continue to monitor for d/c needs.
== END 2021-07-14 17:15 | disposition home or self-care (01) | DRG 299 ==
LOC: HO.ED 10:27 → HO.EDOVER 12:02
PROVIDERS: Nurse Practitioner Acute Care; Admitting Provider Family Medicine; Emergency Provider Emergency Medicine; PCP Emergency Medicine; Visit Provider Hospitalist
DX: E11.52 Type 2 diabetes mellitus with diabetic peripheral angiopathy with gangrene (principal); U07.1 COVID-19; L03.116 Cellulitis of left lower limb; L03.115 Cellulitis of right lower limb; E11.621 Type 2 diabetes mellitus with foot ulcer; L97.529 Non-pressure chronic ulcer of other part of left foot with unspecified severity; I10 Essential (primary) hypertension; L97.519 Non-pressure chronic ulcer of other part of right foot with unspecified severity; E11.65 Type 2 diabetes mellitus with hyperglycemia; T25.422A Corrosion of unspecified degree of left foot, initial encounter; T25.421A Corrosion of unspecified degree of right foot, initial encounter; Y93.E5 Activity, floor mopping and cleaning; Z79.4 Long term (current) use of insulin; Z79.82 Long term (current) use of aspirin; Z79.899 Other long term (current) drug therapy
CPT/HCPCS: 0241U; 36415; 36573; 71045; 80048; 80053; 80076; 80202; 81003; 82565; 82947; 83605; 83690; 85025; 85027; 87040; 96365; 96375; 99285; C1751; J1100; J1650; J2543; J3370

== ENCOUNTER 2021-07-28 09:51 | Outpatient (RCR) | payer OTHER, SELFPAY | END 2021-09-07 09:08 | disposition home or self-care (01) | LOC: HO.WCC 09:51 | PROVIDERS: PCP Emergency Medicine; Visit Provider Physician Assistant | DX: E11.628 Type 2 diabetes mellitus with other skin complications (principal); T25.632A Corrosion of second degree of left toe(s) (nail), initial encounter; T25.631A Corrosion of second degree of right toe(s) (nail), initial encounter; T32.0 Corrosions involving less than 10% of body surface; E11.40 Type 2 diabetes mellitus with diabetic neuropathy, unspecified; Z79.4 Long term (current) use of insulin; Z79.84 Long term (current) use of oral hypoglycemic drugs; Z79.82 Long term (current) use of aspirin; Z79.899 Other long term (current) drug therapy | CPT/HCPCS: 11042; 16020; 99212; 99214; 99215 ==

== ENCOUNTER → 2021-08-08 12:41 | Outpatient (BNVA) | payer OTHER, SELFPAY | PROVIDERS: Visit Provider Surgery Vascular Surgery | DX: I73.9 Peripheral vascular disease, unspecified (principal); L97.929 Non-pressure chronic ulcer of unspecified part of left lower leg with unspecified severity; L97.919 Non-pressure chronic ulcer of unspecified part of right lower leg with unspecified severity | CPT/HCPCS: 99212 ==

== ENCOUNTER → 2021-08-08 13:42 | Outpatient (BNV) | payer OTHER, SELFPAY | PROVIDERS: PCP Registered Nurse; Visit Provider Internal Medicine Medical Oncology | DX: D64.9 Anemia, unspecified (principal) | CPT/HCPCS: 99203; 99213; 99214 ==

== ENCOUNTER → 2021-08-09 06:28 | Day surgery (SDC) | payer OTHER, SELFPAY ==
[2021-08-09 07:18] LABS: MANUAL DIFF FLAG NO
[2021-08-09 07:22] LABS: Basophils Percent Auto 0.3 % (0-2); Eosinophils Absolute Auto 0.2 X10*3/uL (0.0-0.4); Hematocrit 30.7 % (37.0-47.0); Hemoglobin 9.5 g/dl (12.0-16.0); Imm Gran Abs Auto 0.03 X10*3/uL (0.00-0.03); Imm Gran Pct Auto 0.3 % (0.0-0.4); Lymphocytes Absolute Auto 2.2 X10*3/uL (1.2-4.9); Lymphocytes Percent Auto 24.3 % (20-40); Mean Corpuscular HGB Conc 30.9 g/dl (31.0-35.0); Mean Corpuscular Hemoglobin 19.3 pg (27.0-33.0); Mean Corpuscular Volume 62.5 fL (80.0-98.0); Mean Platelet Volume 9.4 fL (9.4-12.3); Monocytes Absolute Auto 0.8 X10*3/uL (0.1-1.2); Monocytes Percent Auto 8.6 % (2-11); Neutrophils Absolute Auto 5.9 x10*3/uL (2.0-8.3); Neutrophils Percent Auto 64.5 % (45-73); Platelet Count 348 X10*3/uL (160-400); Red Blood Count 4.91 X10*6/uL (4.20-5.50); Red Cell Distribution Width 16.9 % (11.0-16.0); White Blood Count 9.2 X10*3/uL (4.8-10.8)
[2021-08-09 07:42] LABS: Blood Urea Nitrogen 43 mg/dL (9-16); Estimated Glomerular Filt Rate 22
--- NOTE | 2021-08-09 07:52 | PC.NURSE ---
pt GFR yesterday 22. pt redrawn this AM prior to aortagram procedure wtih Dr. Vigil. per Dr. Vigil if GFR remains the same as yesterday procedure would need to be canceled for today. GFR result today 08/09/21. Dr. Vigil notified and speaking with patient at this time. Procedure canceled for today.
== END ==
PROVIDERS: PCP Emergency Medicine; Visit Provider Surgery Vascular Surgery
DX: I73.9 Peripheral vascular disease, unspecified (principal); Z53.8 Procedure and treatment not carried out for other reasons; R94.4 Abnormal results of kidney function studies
CPT/HCPCS: 36415; 82565; 84520; 85025

== ENCOUNTER 2021-09-05 11:02 | Outpatient (REF) | payer OTHER, SELFPAY ==
[2021-09-05 13:04] LABS: Baso%MD 0.4 %; Eos%MD 2.1 %; Hematocrit 28.6 % (37.0-47.0); Hemoglobin 8.6 g/dl (12.0-16.0); IG%MD 0.2 %; Mean Corpuscular HGB Conc 30.1 g/dl (31.0-35.0); Mean Corpuscular Hemoglobin 18.9 pg (27.0-33.0); Mean Corpuscular Volume 62.9 fL (80.0-98.0); Mean Platelet Volume 8.9 fL (9.4-12.3); Mono%MD 5.9 %; Neut%MD 64.4 %; Platelet Count 507 X10*3/uL (160-400); Red Blood Count 4.55 X10*6/uL (4.20-5.50); Red Cell Distribution Width 16.9 % (11.0-16.0); White Blood Count 12.6 X10*3/uL (4.8-10.8)
[2021-09-05 13:58] LABS: Erythrocyte Sedimentation Rate 48 MM/HR (0-20)
[2021-09-05 14:04] LABS: Basophils Abs Manual 0.1 X10*3/uL (0.0-0.2); Basophils Percent Manual 1 % (0-2); Eosinophils Absolute Manual 0.1 X10*3/uL (0.0-0.4); Eosinophils Percent Manual 1 % (0-4); Lymphocytes Absolute Manual 3.3 X10*3/uL (1.2-4.9); Lymphocytes Percent Manual 26 % (20-40); Monocytes Absolute Manual 0.8 X10*3/uL (0.1-1.2); Monocytes Percent Manual 6 % (2-11); Neutrophils Percent Manual 66 % (45-73)
[2021-09-05 14:06] LABS: RBC Morphology NOTED
[2021-09-05 14:07] LABS: Microcytosis 2+ (15-30) /OIF; Ovalocytes 1+ (5-14) /OIF
[2021-09-05 14:08] LABS: Hypochromasia 2+ (15-30) /OIF; Platelet Estimate INCREASED (NORMAL); Platelet Morphology Comment NORM; Target Cells 1+ (5-14) /OIF; Tear Drop Cells 1+ (0-2) /OIF
[2021-09-05 14:51] LABS: Band Neutrophils Percent 0 % (3-5); Neutrophils Absolute Manual 8.3 X10*3/uL (2.0-8.3)
== END 2021-09-05 11:03 | disposition home or self-care (01) ==
LOC: HO.LAB 11:02
PROVIDERS: Visit Provider Internal Medicine
DX: D72.829 Elevated white blood cell count, unspecified (principal); E11.42 Type 2 diabetes mellitus with diabetic polyneuropathy; E11.621 Type 2 diabetes mellitus with foot ulcer; L97.529 Non-pressure chronic ulcer of other part of left foot with unspecified severity; I10 Essential (primary) hypertension; E78.5 Hyperlipidemia, unspecified; M81.0 Age-related osteoporosis without current pathological fracture
CPT/HCPCS: 36415; 85007; 85027; 85652; 86140; 99202

== ENCOUNTER → 2021-09-18 10:20 | Outpatient (BNVA) | payer OTHER, SELFPAY | PROVIDERS: Visit Provider Surgery Vascular Surgery | DX: I73.9 Peripheral vascular disease, unspecified (principal) | CPT/HCPCS: 99212 ==

== ENCOUNTER → 2021-09-25 10:14 | Outpatient (REF) | payer OTHER, SELFPAY ==
--- NOTE | ~2021-09-25 | NM_ITS ---
EXAMINATION: THREE PHASE BONE SCAN CLINICAL INFORMATION: MRI suggests the left foot osteomyelitis.. COMPARISON: No previous bone scan is available for comparison. Radiographs of the bilateral feet dated 07/02/2021 are the most recent foot radiographs available for comparison. MRI the left foot dated 07/03/2021 is available for comparison.. TECHNIQUE: Initial rapid sequence images were obtained over the distal lower extremities in the anterior and posterior projections during the bolus injection of 28 mCi Tc-99m MDP. Static images of the whole-body were then obtained 2.5 hours post injection. FINDINGS: Initial rapid sequence images show diffusely increased activity in the left ankle and proximal left foot. No significantly foci of increased flow are present in any of the toes of the left foot. No focally increased flow to the right foot or ankle is present. Blood pool images obtained immediately following the flow study show a diffuse increase in blood pool activity in the proximal left foot. Significantly increased blood pool activity is not present in any of the toes. No foci of abnormal blood pool activity are present in the right foot or ankle. The delayed static images of the whole body show: In the head, no significant abnormalities are present. In the thoracic cage and upper extremities, there is minimally increased activity in the acromioclavicular joints bilaterally, likely arthritic. In the spine, no significant abnormalities are present. In the pelvis, no significant abnormalities are present. In the lower extremities, in the proximal to mid left foot. This corresponds to the region of increased flow and blood pool activity described above. The abnormal activity is likely most intense in the navicular and cuboid bones. There is no abnormal activity in any of the toes of either foot. No significant abnormal activity is present in the right foot. There are small foci of mildly increased activity in the proximal and mid shaft of the left tibia and there is also minimally increased activity in the medial compartment of the right knee. The urinary bladder and faint visualization of both kidneys are noted. NM/NM bone 3 phase IMPRESSION: Very prominent abnormality is present in the proximal left foot in all 3 phases. The findings are strongly suspicious for osteomyelitis, likely involving the navicular or cuboid bones. Significant abnormalities in the toes of the left foot are not suggested. There are additional small mild focal abnormalities in the proximal and mid shaft of the left tibia which are nonspecific and could be posttraumatic in etiology or due to a additional small sites of infection. These may be better characterized with plain radiographs of the left tibia..
== END ==
LOC: HO.NUCMED 10:14
PROVIDERS: PCP Registered Nurse; Visit Provider Registered Nurse
DX: M86.9 Osteomyelitis, unspecified (principal); M79.605 Pain in left leg; M79.604 Pain in right leg; D72.829 Elevated white blood cell count, unspecified
CPT/HCPCS: 78315; A9503

== ENCOUNTER → 2021-09-26 14:35 | Outpatient (BNVA) | payer OTHER, SELFPAY | PROVIDERS: Visit Provider Internal Medicine | DX: M86.9 Osteomyelitis, unspecified (principal); T25.022D Burn of unspecified degree of left foot, subsequent encounter | CPT/HCPCS: 99212 ==

== ENCOUNTER 2021-09-28 07:12 | Outpatient (REF) | payer OTHER, SELFPAY ==
[2021-09-28 07:56] LABS: MANUAL DIFF FLAG NO
[2021-09-28 08:00] LABS: Basophils Absolute Auto 0.1 X10*3/uL (0.0-0.2); Basophils Percent Auto 0.6 % (0-2); Eosinophils Absolute Auto 0.3 X10*3/uL (0.0-0.4); Eosinophils Percent Auto 2.9 % (0-4); Hematocrit 27.1 % (37.0-47.0); Imm Gran Abs Auto 0.04 X10*3/uL (0.00-0.03); Imm Gran Pct Auto 0.4 % (0.0-0.4); Lymphocytes Absolute Auto 3.3 X10*3/uL (1.2-4.9); Lymphocytes Percent Auto 31.9 % (20-40); Mean Corpuscular HGB Conc 29.5 g/dl (31.0-35.0); Mean Platelet Volume 8.8 fL (9.4-12.3); Monocytes Absolute Auto 0.8 X10*3/uL (0.1-1.2); Monocytes Percent Auto 7.5 % (2-11); Neutrophils Absolute Auto 5.9 x10*3/uL (2.0-8.3); Neutrophils Percent Auto 56.7 % (45-73); Platelet Count 501 X10*3/uL (160-400); White Blood Count 10.5 X10*3/uL (4.8-10.8)
[2021-09-28 08:01] LABS: Mean Corpuscular Volume 64.5 fL (80.0-98.0)
== END 2021-09-28 07:13 | disposition home or self-care (01) ==
LOC: HO.MDS 07:12
PROVIDERS: Visit Provider Internal Medicine Medical Oncology
DX: N18.30 Chronic kidney disease, stage 3 unspecified (principal); D63.1 Anemia in chronic kidney disease; D50.9 Iron deficiency anemia, unspecified
CPT/HCPCS: 36415; 85025; 96365; 96366; 96372; J0885; J1200; J1750; Q0163

== ENCOUNTER → 2021-10-03 12:44 | Outpatient (BNVA) | payer OTHER, SELFPAY | PROVIDERS: PCP Registered Nurse; Referring Provider Registered Nurse; Visit Provider Physician Assistant | DX: K58.9 Irritable bowel syndrome, unspecified (principal); K21.9 Gastro-esophageal reflux disease without esophagitis; R13.10 Dysphagia, unspecified; Z53.20 Procedure and treatment not carried out because of patient's decision for unspecified reasons | CPT/HCPCS: 99202 ==

== ENCOUNTER → 2021-10-06 10:00 | Outpatient (BNVA) | payer OTHER, SELFPAY | PROVIDERS: Visit Provider Internal Medicine | DX: M86.9 Osteomyelitis, unspecified (principal) | CPT/HCPCS: 99212 ==

== ENCOUNTER 2021-10-09 08:30 | Outpatient (RCR) | payer OTHER, SELFPAY | END 2021-10-13 09:04 | disposition home or self-care (01) | LOC: HO.WCC 08:30 | PROVIDERS: PCP Emergency Medicine; Visit Provider Physician Assistant | DX: Z09 Encounter for follow-up examination after completed treatment for conditions other than malignant neoplasm (principal); E11.51 Type 2 diabetes mellitus with diabetic peripheral angiopathy without gangrene; E11.40 Type 2 diabetes mellitus with diabetic neuropathy, unspecified; E11.610 Type 2 diabetes mellitus with diabetic neuropathic arthropathy; R60.9 Edema, unspecified; I10 Essential (primary) hypertension; Z87.2 Personal history of diseases of the skin and subcutaneous tissue | CPT/HCPCS: 99213 ==

== ENCOUNTER 2021-10-11 05:47 | Day surgery (SDC) | payer OTHER, SELFPAY ==
[2021-10-09 10:50] VITALS: BP 109/64; PULSE 95; RESP 16; TEMP 36.4; O2SAT 98; BMI 32.8
--- NOTE | 2021-10-09 14:49 | MHC.HEMONCMA ---
Pt was in for follow up. Clinical summary reviewed and updated, VSS. Labs were drawn. Pt to return in 3 months.
--- NOTE | 2021-10-09 15:46 | P.CNHO_ITS ---
Subjective - Subjective Chief complaint: Consult for: Anemia. ACD. Patient: new to practice Consult date: 10/09/21 Requesting Physician: David. Primary Care Provider: TAMY Ram Medical Summary: DIAGNOSIS: ACD. CURRENT THERAPY: Procrit. HPI - Consult Narrative Reason for consult: Consult for: Anemia of chronic disease related to stage 3 kidney disease Narrative: Mitra Parish is a pleasant 56 year old lady with a history of chronic anemia. Review of her hemoglobin in the computer reveals the following trend: 11/23: 10.4. 06/27:8.5. 06/27; 7.3. 07/29: 7.9. 09/26: 8.6. 09/28/21: 8.0. When asked how she is doing, she tells me, I am alive, thank God. She has been undergoing a lot of medical issues. She noted some blue toes on her right foot. Her left foot was swollen and there is a lump under the the plantar aspect. She saw ID last week. She was diagnosed with osteomyelitis. She has to stay with antibiotics on the long-term basis. She had an ulcer on her left foot. She was prescribed antibiotics and antifungals. It does appear to be healing. She has been going to the wound clinic regularly. She is scheduled for a balloon angioplasty of the left leg by Dr. Vigil on Saturday. She was advised by Renal to have IV hydration prior to any procedures that r equire the contrast dye. PMH: She was seen by Renal on 09/04/2021. His note: 1. CKD, stage IV, (severe). 2. Hypertension. 2. She was in house back in July. Discharge summary: 56-year-old female presents to [facility] 07/09[facility]2020 with complaints of worsening cellulitis in the backdrop of diabetic foot ulcers. She states she was cleaning with boiling water and bleach and spill them across her foot. She was seen by vascular who stated there was no acute intervention indicated; she was seen by infectious disease and initially thought to have osteomyelitis requiring PICC line. Upon further exam and discussion was felt that this is not osteomyelitis but cellulitis. She was maintained on vancomycin during the duration of her stay with improvement in her wounds. On the day of discharge, she is pain free and is medically suitable to continue/complete therapies as outpatient. Of note, she did test positive for COVID-19 however remained asymptomatic during her hospital stay. 3. Hyperlipidemia. 4. Type 2 diabetes. 5. Arthritis. 6. Carpal tunnel syndrome. 7. DJD spine. 8. IBS. 9. Osteoporosis. 10. Peripheral neuropathy. 11. Uterine and rectal prolapse. 12. Retinopathy. 13. Foot ulcers. 14. Osteomyelitis. PSH: D&C. Exploratory laparotomy. FAMILY HISTORY: Mom with diabetes and stroke. 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 She is not . She has 11 children. Two of them, a 39-year-old and a 22-year-old have ADHD. She denies smoking. Denies alcohol. ROS: She does feel rather fatigued. No fever chills or night sweats. Appetite is not that good she has gained weight. Denies headaches. She feels a bit dizzy. She denies chest pain or trouble breathing. She always has pain in her belly. She does get heartburn and indigestion. She has IBS. Sometimes she gets constipation and sometimes she gets diarrhea. Denies any blood in the stools. Records Assistant: LMP was more than 2 years ago. : She had some difficulty micturition and she 1st got admitted. She has history of osteoporosis. She has pain in her right knee. She had cramps in her left leg the other day. She has been diagnosed with peripheral neuropathy. She has been referred vascular disease. She is an appointment for a balloon angioplasty tomorrow by Dr. Vigil. She has history of diabetic retinopathy. She has history of easy bruising. She has foot ulcers that are healing. She has been using Silvadene cream. Review of Systems - Constitutional Reports no additional constitutional complaints, Reports lack of energy, Reports weight loss Comments: Wound on left foot. - Eyes Reports no additional eye complaints - ENT Reports no additional ear, nose, mouth, and throat complaints - Cardiovascular Reports no additional cardiovascular complaints - Respiratory Reports no additional respiratory complaints - Gastrointestinal Reports no additional gastrointestinal complaints - Genitourinary Reports no additional female genitourinary complaints - Musculoskeletal Reports no additional musculoskeletal complaints - Integumentary/Breasts Skin/Breast: Reports no additional skin complaints - Neurologic Reports no additional neurologic complaints - Psychiatric Reports no additional psychiatric complaints - Endocrine Reports no additional endocrine complaints - Hematologic/Lymphatic Reports no additional hematologic/lymphatic complaints - Allergic/Immunologic Reports no additional allergic/immunologic complaints Oncology Screenings - ECOG Performance Status ECOG Performance Status: 1 [facility] Medical History: Medical History (Last Reviewed 10/09/21 @ 10:55 by Natalie Vasquez CMA) Arthritis Carpal tunnel syndrome Degenerative joint disease of spine Diabetes HLD (hyperlipidemia) Hypertension Irritable bowel syndrome Leukocytosis Osteomyelitis Osteoporosis Peripheral neuropathy Prolapsed uterus Rectal prolapse Retinopathy Toe ulcer due to DM Functional capacity: uses cane/walker Patient : No Family History: Family History (Last Updated 10/09/21 @ 10:56 by Natalie Vasquez CMA) Maternal Grandmother Diabetes Maternal Grandfather Heart disease Breast cancer Mother HTN (hypertension) Paternal Uncle Thalassemia Surgical History: Surgical History (Last Reviewed 10/09/21 @ 10:55 by Natalie Vasquez CMA) H/O dilation and curettage Social History: Social History (Last Updated 10/09/21 @ 11:01 by Natalie Vasquez CMA) Living Situation History: Household Members: Children Housing: Apartment Are you a primary child care attendant school to a significant other at home: No Do you presently have visiting nurse or other home services: No Alcohol History Details: 1. How often do you have a drink containing alcohol?: a. Never Tobacco History: Patient Tobacco Use Status: Never used Tobacco Substance Use History: Use of substances other than those prescribed or required for medical reasons : No Domestic Abuse History: Have you been hit, kicked, punched, or otherwise hurt by someone within the past year? If so, by whom?: No Homicidal Assessment: Do you have thoughts of harming others: None Do you have a plan to hurt others: No Plan Do you have the means to hurt others: No Nutrition Assessment: Recently lost weight without trying: No Patient : No Occupation Assessmet: service: No Current occupational status: disabled Home Medications and Allergies Home Medications Medication Instructions Recorded Confirmed Type aspirin 81 mg tablet,delayed 1 tab PO DAILY 07/02/21 10/09/21 History release atorvastatin 40 mg tablet 1 tab PO DAILY 07/02/21 10/09/21 History cholecalciferol (vitamin D3) 25 1 tab PO DAILY 07/02/21 10/09/21 History mcg (1,000 unit) tablet clotrimazole 1 % topical cream 1 appl TOPICAL BID 07/02/21 10/09/21 History ezetimibe 10 mg tablet 1 tab PO DAILY 07/02/21 10/09/21 History insulin glargine 100 unit/mL (3 40 unit SUBCUT DAILY 07/02/21 10/09/21 History mL) subcutaneous pen (Lantus Solostar U-100 Insulin) lisinopril 20 1 tab PO DAILY 07/02/21 10/09/21 History mg-hydrochlorothiazide 25 mg tablet metformin 1,000 mg tablet 1 tab PO BID 07/02/21 10/09/21 History pioglitazone 15 mg tablet 1 tab PO DAILY 07/02/21 10/09/21 History silver sulfadiazine 1 % topical 1 appl TOPICAL DAILY 07/09/21 10/09/21 History cream alcohol swabs (Alcohol Prep Pads) 1 pad TOPICAL TID 09/18/21 10/09/21 History blood sugar diagnostic (FreeStyle #10 ea 09/18/21 10/09/21 History Lite Strips) lancets 33 gauge (TRUEplus Lancets) #100 ea 09/18/21 10/09/21 History pen needle, diabetic 31 gauge x #1200 ea 09/18/21 10/09/21 History 5/16 (UltiCare Pen Needle) Allergies Allergy/AdvReac Type Severity Reaction Status Date / Time No Known Allergies Allergy Unknown UNKNOWN Verified 10/09/21 11:06 [NO KNOWN ALLERGIES] Physical Exam Vital signs: Vital Signs Temp 97.6 F 10/09/21 10:50 Pulse 95 10/09/21 10:50 Resp 16 10/09/21 10:50 BP 109/64 10/09/21 10:50 Pulse Ox 98 10/09/21 10:50 Intake & Output 10/08/21 10/09/21 10/09/21 18:59 06:59 18:59 Other: Weight 76.2 kg [place] Weight in Grams [id number] Weight 76.2 kg - Constitutional Present: mild distress - Routine HEENT Exam Head: Present: normal inspection ENT: Present: mucous membranes moist - Routine Neck Exam Present: supple - Routine Cardiovascular Exam Cardiovascular: Present: S1, S2 - Routine Abdominal Exam Present: soft, nontender - Routine Extremities Exam Present: pedal edema Assessment and Plan Patient Active problem list reviewed?: Yes (1) Anemia in chronic kidney disease (CKD) Status: Acute Assessment and plan: DATABASE: CBC: WBC 10.4, HGB 9.3, HCT 30.7, MCV 64, PLT 479. CMP: Lytes WNL, BUN 45, GOLF COURSE KEEPER 1.29, glucose 444. CaL9.7. LFTs: 0.3//05/20. This is a pleasant 56-year-old lady with a history of microcytic anemia. DIFFERENTIAL DIAGNOSIS: 1. IRON DEFICIENCY ANEMIA: She could have underlying GI blood loss leading to iron deficiency. Alternatively she can have iron malabsorption related to celiac disease. 2. ACD: She does have underlying stage 4 kidney disease that is likely the explanation. 3. ANEMIA OF ACUTE ILLNESS: This is likely since she has had cellulitis, lower extremity ulceration and osteomyelitis. 4. B12 DEFICIENCY: She does have a history of it. She used to get B12 injections 6 years ago. 5. THALASSEMIA TRAIT: Does have a history of thalassemia trait. She always has had microcytosis. RESULTS: Iron studies: 73/33/22/148. Transglut IgA:< 1. B12: 503. Folate:> 20. PLAN: She has been started on Procrit. Today's hemoglobin is 9.3. She was given a dose. She is going to have balloon angioplasty on her left leg by vascular surgery on Saturday. She will continue to follow up with ID regarding her osteomyelitis. She will follow with wound clinic for the leg ulcers. They do look better. She will be coming back in 2 weeks for her next Procrit shot. She will return in 3 months for a follow-up. Thank you, Cc: Rosalind Cardoso. - Time Spent With Patient Time Spent with Patient (in minutes): 35
[2021-10-11] VITALS (9 sets, daily range): BP systolic 102–134; BP diastolic 49–82; PULSE 81–90; RESP 16–18; TEMP 36.4–36.7; O2SAT 97–100; BMI 32.8
[2021-10-11 06:21] LABS: MANUAL DIFF FLAG NO
[2021-10-11 06:25] LABS: Basophils Absolute Auto 0.1 X10*3/uL (0.0-0.2); Basophils Percent Auto 0.6 % (0-2); Eosinophils Absolute Auto 0.3 X10*3/uL (0.0-0.4); Eosinophils Percent Auto 2.3 % (0-4); Hematocrit 33.9 % (37.0-47.0); Hemoglobin 10.3 g/dl (12.0-16.0); Imm Gran Abs Auto 0.08 X10*3/uL (0.00-0.03); Imm Gran Pct Auto 0.7 % (0.0-0.4); Lymphocytes Absolute Auto 4.5 X10*3/uL (1.2-4.9); Lymphocytes Percent Auto 36.7 % (20-40); Mean Corpuscular HGB Conc 30.4 g/dl (31.0-35.0); Mean Corpuscular Hemoglobin 19.4 pg (27.0-33.0); Monocytes Absolute Auto 0.9 X10*3/uL (0.1-1.2); Monocytes Percent Auto 7.5 % (2-11); NRBC Pct Auto 0.2 /100WBC (0.0-0.2); Neutrophils Absolute Auto 6.4 x10*3/uL (2.0-8.3); Neutrophils Percent Auto 52.2 % (45-73); Platelet Count 523 X10*3/uL (160-400); Red Blood Count 5.32 X10*6/uL (4.20-5.50); Red Cell Distribution Width 19.6 % (11.0-16.0); White Blood Count 12.2 X10*3/uL (4.8-10.8)
[2021-10-11 06:30] LABS: Glucose, Whole Blood 220 mg/dL (60-115)
[2021-10-11 06:37] LABS: Mean Corpuscular Volume 63.7 fL (80.0-98.0)
[2021-10-11 06:38] LABS: Blood Urea Nitrogen 40 mg/dL (9-16); Estimated Glomerular Filt Rate 39
[2021-10-11] MEDS: 0.9 % Sodium Chloride 1,000 ML 100 ML IVCONT (07:01)
[2021-10-11] MEDS: Lidocaine HCl 1 % MPF 5 ML VIAL 10 ML SUBCUT (09:12)
--- NOTE | 2021-10-11 09:28 | W.PM.OPN ---
Operative Note Operative Note Date of Service: 10/11/21 Narrative: Angiogram report from [facility] Preoperative diagnosis: Atherosclerosis of left lower extremity with claudication Postoperative diagnosis: Same Procedure: 1. Ultrasound-guided right common femoral access 2. Aortogram with bilateral lower extremity runoff 3. Angioplasty of left anterior tibial Surgeon:Ton Vigil M.D., FACS, RPVI Milling/Polishing Operator:None Anesthesia: Local with moderate conscious sedation. Total intraservice moderate sedation time was 50 minutes. I monitored the patient's level of consciousness and physiologic status continuously throughout the procedure. Specimens:none Drains:none Estimated blood loss: Less than 10 ml Implant: Medtronic Impact 4 x 40 DCB Indications: 56-year-old female with a longstanding history of diabetes and leg discomfort now presents for endovascular intervention. She has had prior noninvasive testing. The patient has signed the informed consent after reviewing risks, complications, benefits, and alternatives previously discussed with the patient. The patient was given the opportunity to ask any additional questions or voice any concerns. All questions were answered to the patient's satisfaction. Procedure in detail: Patient was brought to the angiography suite prior to which a time-out was called for patient identification and site verification. Bilateral groins were prepped and draped in the standard surgical fashion. Under ultrasound guidance right common femoral was punctured with micro puncture needle and wire. Subsequently a precision 5 Bangladeshi sheath was then placed. Bentson wire was advanced to the level of the aorta. 5 Bangladeshi Flush catheter was brought up and parked at the level of the renal arteries. Aortogram was then undertaken. Catheter was brought down to the level of the iliac bifurcation. Iliacs were subsequently imaged. Catheter was then brought in up and over to the left side SFA. Runoff study was then undertaken. It was recognized that there was no significant SFA disease but the patient had 1 vessel runoff and there was disease at the origin of the anterior tibial. At this time 5000 units of systemic heparin was administered. After 5 minutes of circulation time up and over 6 Bangladeshi sheath was then placed. Once in position we advanced an 035 glidewire Advantage into the anterior tibial. Once we confirmed true lumen with a catheter instilled with contrast we then turned our attention to the blockage at the origin of the anterior tibial. This was 1st plasty did with a 3 x 20 regular balloon. Subsequently a 4 x 40 drug coated balloon which was brought into position in under 3 minutes and insufflated for a total of 3 minutes in duration. Once this was done completion angiogram demonstrated good result. Catheter wire sheath was brought back to the ipsilateral side. Right lower extremity runoff was then undertaken. StarClose closure was then placed. Patient tolerated the procedure well and was brought to recovery with stable vitals. Interpretation of films: 1. Ultrasound demonstrates appropriate femoral puncture. Image of which was saved. 2. Aortogram demonstrates appropriate caliber aorta. Minimal disease. Appropriate take-off of the renals. 3. Iliac images demonstrate no significant disease 4. Left Leg Common femoral artery: No significant disease Profundus Femoris: No significant disease Superficial femoral artery: Patent with minimal disease at Gallo's canal Popliteal artery (p1,p2,p3): Patent Anterior tibial artery: Patent with disease at the origin Peroneal artery: Occluded Posterior tibial artery: Occluded Dorsalis pedis/plantar arch: Incomplete 5. Right Leg Common femoral artery: No significant disease Profundus Femoris: No significant disease Superficial femoral artery: Patent with minimal disease at Gallo's canal Popliteal artery (p1,p2,p3): Patent Anterior tibial artery: Patent and is dominant runoff. Peroneal artery: Occluded Posterior tibial artery: Occluded Dorsalis pedis/plantar arch: Incomplete Conclusion: 1. Successful angioplasty of left anterior tibial. Patient has bilateral 1 vessel runoff. 2. Anticoagulation status: Continue with aspirin and Plavix for 6 months This note is constructed using voice recognition software. While every effort has been made to ensure accuracy, secretary to board of commissioners errors may have been included. Thank you for allowing me to participate in the care of your patient. Yours sincerely, Ton Vigil MD, FACS, R.P.V.I.
[2021-10-11] MEDS: Clopidogrel Bisulfate 300 MG TABLET PO (09:37)
[2021-10-11] MEDS: Acetaminophen 325 MG TABLET 650 MG PO (09:37)
[2021-10-11] MEDS: oxyCODONE HCl Immed Release 5 MG TABLET PO (10:46)
== END 2021-10-11 11:54 | disposition home or self-care (01) ==
PROVIDERS: PCP Registered Nurse; Visit Provider Surgery Vascular Surgery
DX: E11.51 Type 2 diabetes mellitus with diabetic peripheral angiopathy without gangrene (principal); E11.42 Type 2 diabetes mellitus with diabetic polyneuropathy; I70.212 Atherosclerosis of native arteries of extremities with intermittent claudication, left leg; E11.22 Type 2 diabetes mellitus with diabetic chronic kidney disease; N18.4 Chronic kidney disease, stage 4 (severe); I12.9 Hypertensive chronic kidney disease with stage 1 through stage 4 chronic kidney disease, or unspecified chronic kidney disease; Z79.4 Long term (current) use of insulin; D63.1 Anemia in chronic kidney disease; E78.5 Hyperlipidemia, unspecified; M86.9 Osteomyelitis, unspecified; M81.0 Age-related osteoporosis without current pathological fracture; Z79.82 Long term (current) use of aspirin; Z79.899 Other long term (current) drug therapy
CPT/HCPCS: 36415; 37228; 76937; 82565; 82947; 84520; 85025; 99152; 99153; 99214; C1725; C1760; C1769; C1887; C2623; J2250; J3010; Q9967

== ENCOUNTER 2021-10-16 16:30 | Inpatient (IN) | payer OTHER, SELFPAY ==
[2021-10-16 17:47] VITALS: BP 97/64; PULSE 94; RESP 18; TEMP 36.2; O2SAT 97; BMI 32.4
[2021-10-16 18:14] LABS: MANUAL DIFF FLAG NO
[2021-10-16 18:31] LABS: COVID-19 Test Negative (Negative)
[2021-10-16 18:35] LABS: Basophils Absolute Auto 0.1 X10*3/uL (0.0-0.2); Basophils Percent Auto 0.5 % (0-2); Eosinophils Absolute Auto 0.3 X10*3/uL (0.0-0.4); Eosinophils Percent Auto 2.2 % (0-4); Hemoglobin 10.3 g/dl (12.0-16.0); Imm Gran Pct Auto 0.8 % (0.0-0.4); Lymphocytes Absolute Auto 3.1 X10*3/uL (1.2-4.9); Lymphocytes Percent Auto 23.6 % (20-40); Mean Corpuscular HGB Conc 30.3 g/dl (31.0-35.0); Mean Corpuscular Hemoglobin 19.7 pg (27.0-33.0); Mean Platelet Volume 9.6 fL (9.4-12.3); Monocytes Absolute Auto 1.1 X10*3/uL (0.1-1.2); Monocytes Percent Auto 8.6 % (2-11); NRBC Pct Auto 0.5 /100WBC (0.0-0.2); Neutrophils Absolute Auto 8.5 x10*3/uL (2.0-8.3); Neutrophils Percent Auto 64.3 % (45-73); Platelet Count 597 X10*3/uL (160-400); Red Blood Count 5.24 X10*6/uL (4.20-5.50); Red Cell Distribution Width 20.6 % (11.0-16.0); White Blood Count 13.2 X10*3/uL (4.8-10.8)
[2021-10-16 18:38] LABS: Mean Corpuscular Volume 64.9 fL (80.0-98.0)
[2021-10-16 18:41] LABS: Alanine Aminotransferase 16 U/L (0-31); Albumin Level 4.2 g/dL (3.5-5.0); Alkaline Phosphatase 103 U/L (39-117); Anion Gap 18 (12-20); Aspartate Amino Transferase 13 U/L (5-31); Bilirubin Total < 0.2 mg/dL (0.0-1.0); Blood Urea Nitrogen 57 mg/dL (9-16); Calcium 10.3 mg/dL (8.4-10.2); Carbon Dioxide 23 mmol/L (22-29); Chloride 94 mmol/L (96-108); Creatinine Clr Calc Pharmacy 25.6; Estimated Glomerular Filt Rate 23; Glucose Random 324 mg/dL (60-115); Potassium 4.5 mmol/L (3.3-5.1); Sodium 130 mmol/L (135-145); Total Protein 7.2 g/dL (6.5-8.0)
--- NOTE | 2021-10-16 22:25 | ED_ITS ---
HPI - General Adult General Chief complaint: General Medical Stated complaint: low blood pressure sent from dr office Time Seen by Provider: 10/16/21 22:25 Source: patient Mode of arrival: ambulatory Limitations: no limitations History of Present Illness HPI narrative: patient with recent catheritization and stenting of her legs. Now with her sugars running high and her blood pressure is running low. Patient complaining of aches and pains since taking plavix. Onset (ago): day(s) Severity: mild Associated symptoms: headaches, malaise and weakness Related Data Home Medications Medication Instructions Recorded Confirmed aspirin 81 mg tablet,delayed 1 tab PO DAILY 07/02/21 10/09/21 release atorvastatin 40 mg tablet 1 tab PO DAILY 07/02/21 10/09/21 cholecalciferol (vitamin D3) 25 1 tab PO DAILY 07/02/21 10/09/21 mcg (1,000 unit) tablet clotrimazole 1 % topical cream 1 appl TOPICAL BID 07/02/21 10/09/21 ezetimibe 10 mg tablet 1 tab PO DAILY 07/02/21 10/09/21 insulin glargine 100 unit/mL (3 40 unit SUBCUT DAILY 07/02/21 10/09/21 mL) subcutaneous pen (Lantus Solostar U-100 Insulin) lisinopril 20 1 tab PO DAILY 07/02/21 10/09/21 mg-hydrochlorothiazide 25 mg tablet metformin 1,000 mg tablet 1 tab PO BID 07/02/21 10/09/21 pioglitazone 15 mg tablet 1 tab PO DAILY 07/02/21 10/09/21 silver sulfadiazine 1 % topical 1 appl TOPICAL DAILY 07/09/21 10/09/21 cream alcohol swabs (Alcohol Prep Pads) 1 pad TOPICAL TID 09/18/21 10/09/21 blood sugar diagnostic (FreeStyle #10 ea 09/18/21 10/09/21 Lite Strips) lancets 33 gauge (TRUEplus Lancets) #100 ea 09/18/21 10/09/21 pen needle, diabetic 31 gauge x #1200 ea 09/18/21 10/09/21 5/16 (UltiCare Pen Needle) Previous Rx's Medication Instructions Recorded folic acid 1 mg tablet 1 mg PO DAILY #90 tab 08/08/21 doxycycline hyclate 100 mg capsule 100 mg PO BID 30 Days #60 cap 09/27/21 terbinafine HCl 250 mg tablet 250 mg PO DAILY 42 Days #42 tab 09/27/21 omeprazole 20 mg capsule,delayed 20 mg PO DAILY #30 cap 10/03/21 release clopidogrel 75 mg tablet (Plavix) 75 mg PO DAILY #90 tab 10/11/21 Allergies Allergy/AdvReac Type Severity Reaction Status Date / Time No Known Allergies Allergy Unknown UNKNOWN Verified 10/09/21 11:06 [NO KNOWN ALLERGIES] Review of Systems Constitutional: Constitutional: Reports no additional constitutional complaints Eyes: Eyes: Reports no additional eye complaints ENT: Denies dizziness Cardiovascular: Cardiovascular: Reports no additional cardiovascular complaints Respiratory: Respiratory: Reports as per HPI Gastrointestinal: Gastrointestinal: Reports no additional gastrointestinal complaints Genitourinary: Genitourinary: Reports no additional female genitourinary complaints Musculoskeletal: Musculoskeletal: Reports no additional musculoskeletal complaints Integumentary/Breasts: Skin/Breast: Denies rash Neurologic: Reports system reviewed and no additional complaints, except as documented, Denies dizziness and Denies Sensory deficit (Neuro) Psychiatric: Psychiatric: Denies anxiety [facility] Past Medical History Medical History Arthritis Carpal tunnel syndrome Degenerative joint disease of spine Diabetes HLD (hyperlipidemia) Hypertension Irritable bowel syndrome Leukocytosis Osteomyelitis Osteoporosis Peripheral neuropathy Prolapsed uterus Rectal prolapse Retinopathy Toe ulcer due to DM Surgical History H/O dilation and curettage Family History Family History Maternal Grandmother Diabetes Maternal Grandfather Heart disease Breast cancer Mother HTN (hypertension) Paternal Uncle Thalassemia Social History Social History Household Members: Children Housing: Apartment Are you a primary child care cook to a significant other at home: No Do you presently have visiting nurse or other home services: No Alcohol intake: never Patient Tobacco Use Status: Never used Tobacco Use of substances other than those prescribed or required for medical reasons: No Advance Directives: No Patient : No service: No Current occupational status: disabled Physical Exam ED Vital Signs: Vital Signs - 24 hr 10/16/21 17:47 10/16/21 22:38 10/17/21 00:44 Temperature 97.2 F 98 F 97.6 F Pulse Rate 94 76 84 Respiratory Rate 18 16 16 Blood Pressure 97/64 125/57 L 112/52 L Pulse Oximetry 97 100 99 BMI result Body Mass Index 32.4 Const General: healthy appearing Nutritional Appearance: average body habitus Orientation/consciousness: oriented to person and patient oriented x3 Limitations: no limitations HENMT Head: Yes normal to inspection Ears: external ears normal General nose exam: Normal external nose present Mouth: Normal oral and palatal mucosa present and oropharynx normal Throat: Yes posterior oropharynx normal Eyes General: appearance normal, both eyes and all related structures Neck Neck: Yes normal visual inspection Chest Chest palpation & inspection: normal inspection of the chest Resp Auscultation: clear to auscultation bilaterally Cardio Jugular venous distension: no JVD Rate: regular rate Rhythm: regular rhythm Heart sounds: S1 normal heart sound present and S2 normal heart sound present GI Inspection: Yes normal to inspection Palpation (GI): Soft to palpation, nontender and No hepatosplenomegaly present Auscultation: normal bowel sounds General: Yes no CVA tenderness Back/Spine/Pelvis Back: no CVA tenderness Skin General skin exam: no rashes or lesions noted Neuro General: oriented to person and patient oriented x3 Cranial nerves: Yes CN's II-XII intact bilaterally Motor exam (neuro): 5/5 motor strength present throughout Sensory Exam: No Sensory deficit (Neuro) Extrem Other: warm feet good bilateral DP pulses General: Yes normal to inspection Psych Appearance: grossly normal Course Reevaluation(s) Reevaluation #1: BUN and creatinine going in wrong direction, might be due to recent angio and contrast nephropathy or diabetes out of control. Will admit Time: 00:55 Medical Decision Making Lab Data Result diagrams: 10/16/21 18:10 10/17/21 00:04 Labs: Lab Results 10/16/21 10/16/21 10/16/21 Range/Units 18:10 18:10 18:10 WBC 13.2 H (4.8-10.8) X10*3/uL RBC 5.24 (4.20-5.50) X10*6/uL Hgb 10.3 L (12.0-16.0) g/dl Hct 34.0 L (37.0-47.0) % MCV 64.9 L (80.0-98.0) fL MCH 19.7 L (27.0-33.0) pg MCHC 30.3 L (31.0-35.0) g/dl RDW 20.6 H (11.0-16.0) % Plt Count 597 H (160-400) X10*3/uL MPV 9.6 (9.4-12.3) fL Immature Gran % (Auto) 0.8 H (0.0-0.4) % Neut % (Auto) 64.3 (45-73) % Lymph % (Auto) 23.6 (20-40) % Payne % (Auto) 8.6 (2-11) % Eos % (Auto) 2.2 (0-4) % Baso % (Auto) 0.5 (0-2) % Lymph # (Auto) 3.1 (1.2-4.9) X10*3/uL Payne # (Auto) 1.1 (0.1-1.2) X10*3/uL Eos # (Auto) 0.3 (0.0-0.4) X10*3/uL Baso # (Auto) 0.1 (0.0-0.2) X10*3/uL Abs Immat Gran (auto) 0.10 H (0.00-0.03) X10*3/uL Absolute Neuts (auto) 8.5 H (2.0-8.3) x10*3/uL Absolute Nucleated RBC 0.070 H (0.0-0.012) X10*3/uL Nucleated RBC % (auto) 0.5 H (0.0-0.2) /100WBC Sodium 130 L (135-145) mmol/L Potassium 4.5 (3.3-5.1) mmol/L Chloride 94 L (96-108) mmol/L Carbon Dioxide 23 (22-29) mmol/L Anion Gap 18 (12-20) BUN 57 H (9-16) mg/dL Creatinine 2.17 H (0.5-1.4) mg/dL Estim Creat Clear Calc 25.6 Estimated GFR 23 Random Glucose 324 H (60-115) mg/dL Calcium 10.3 H D (8.4-10.2) mg/dL Total Bilirubin < 0.2 (0.0-1.0) mg/dL AST 13 (5-31) U/L ALT 16 (0-31) U/L Alkaline Phosphatase 103 (39-117) U/L Troponin I High Sens (<3.5-17.0) ng/L Total Protein 7.2 (6.5-8.0) g/dL Albumin 4.2 (3.5-5.0) g/dL COVID-19 ([facility]) Negative (Negative) COVID-19 Clin Com See Note 10/17/21 10/17/21 Range/Units 00:04 00:04 WBC (4.8-10.8) X10*3/uL RBC (4.20-5.50) X10*6/uL Hgb (12.0-16.0) g/dl Hct (37.0-47.0) % MCV (80.0-98.0) fL MCH (27.0-33.0) pg MCHC (31.0-35.0) g/dl RDW (11.0-16.0) % Plt Count (160-400) X10*3/uL MPV (9.4-12.3) fL Immature Gran % (Auto) (0.0-0.4) % Neut % (Auto) (45-73) % Lymph % (Auto) (20-40) % Payne % (Auto) (2-11) % Eos % (Auto) (0-4) % Baso % (Auto) (0-2) % Lymph # (Auto) (1.2-4.9) X10*3/uL Payne # (Auto) (0.1-1.2) X10*3/uL Eos # (Auto) (0.0-0.4) X10*3/uL Baso # (Auto) (0.0-0.2) X10*3/uL Abs Immat Gran (auto) (0.00-0.03) X10*3/uL Absolute Neuts (auto) (2.0-8.3) x10*3/uL Absolute Nucleated RBC (0.0-0.012) X10*3/uL Nucleated RBC % (auto) (0.0-0.2) /100WBC Sodium 127 L (135-145) mmol/L Potassium 5.2 H (3.3-5.1) mmol/L Chloride 95 L (96-108) mmol/L Carbon Dioxide 20 L (22-29) mmol/L Anion Gap 17 (12-20) BUN 66 H (9-16) mg/dL Creatinine 2.68 H (0.5-1.4) mg/dL Estim Creat Clear Calc 20.7 Estimated GFR 18 Random Glucose 356 H* (60-115) mg/dL Calcium 10.0 (8.4-10.2) mg/dL Total Bilirubin (0.0-1.0) mg/dL AST (5-31) U/L ALT (0-31) U/L Alkaline Phosphatase (39-117) U/L Troponin I High Sens 3.5 (<3.5-17.0) ng/L Total Protein (6.5-8.0) g/dL Albumin (3.5-5.0) g/dL COVID-19 ([facility]) (Negative) COVID-19 Clin Com ECG Data Attestation: I personally reviewed and interpreted this ECG as follows: Interpretation: sinus rate 80, no st or twave changes Discharge Plan Discharge Clinical Impression: Acute kidney injury, Hyperglycemia Patient Disposition: Admitted As Inpatient
--- NOTE | 2021-10-16 22:30 | ECG_ITS ---
Test Reason : CHEST PAIN Blood Pressure : / mmHG Vent. Rate : 078 BPM Atrial Rate : 078 BPM P-R Int : 150 ms QRS Dur : 086 ms QT Int : 358 ms P-R-T Axes : 000 -06 009 degrees QTc Int : 408 ms Normal sinus rhythm Normal ECG When compared with ECG of 12-NOV-2017 22:57, Premature atrial complexes are no longer Present Questionable change in QRS axis QT has shortened Referred By: Aries Solano Electronically Signed By:Fede Martínez
[2021-10-16 22:38] VITALS: BP 125/57; PULSE 76; RESP 16; TEMP 36.6; O2SAT 100
[2021-10-17] MEDS: Insulin Lispro 100 UNIT/ML 3 ML VIAL SUBCUT ×4 (00:05→21:31)
[2021-10-17] MEDS: 0.9 % Sodium Chloride 1,000 ML 999 ML IVCONT ×2 (00:05→00:13)
[2021-10-17 00:32] LABS: Anion Gap 17 (12-20); Blood Urea Nitrogen 66 mg/dL (9-16); Carbon Dioxide 20 mmol/L (22-29); Chloride 95 mmol/L (96-108); Creatinine Clr Calc Pharmacy 20.7; Estimated Glomerular Filt Rate 18; Glucose Random 356 mg/dL (60-115); Potassium 5.2 mmol/L (3.3-5.1); Sodium 127 mmol/L (135-145)
[2021-10-17 00:34] LABS: Troponin-I High Sensitivity 3.5 ng/L (<3.5-17.0)
[2021-10-17 00:44] VITALS: BP 112/52; PULSE 84; RESP 16; TEMP 36.4; O2SAT 99
[2021-10-17] MEDS: Insulin Lispro 100 UNIT/ML 3 ML VIAL 10 UNIT SUBCUT (01:36)
--- NOTE | 2021-10-17 05:52 | PC.NURSE ---
I assumed nursing care of Mitra upon her arrival to bed -21. She presents for evaluation of generalized aches, pains and general malaise. She is alert, oriented x 3, calm and cooperative and makes eye contact with RN. Respirations are non-labored, no cyanosis, she speaks in full sentences, room air sats are WNL. SHe denies nausea, denies vomiting. She has been taking PO food and fluids here in the ED without difficulty. She has ambulated to the bathroom independently with slow but steady gait. No chest pain. We will continue to monitor Mitra.
[2021-10-17 07:19] LABS: Glucose, Whole Blood 183 mg/dL (60-115)
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
[2021-10-17] MEDS: Heparin Sodium,Porcine 5,000 UNIT/ML VIAL 5000 UNIT SUBCUT ×2 (09:33→21:08)
[2021-10-17 10:22] LABS: Anion Gap 16 (12-20); Blood Urea Nitrogen 65 mg/dL (9-16); Calcium 9.7 mg/dL (8.4-10.2); Carbon Dioxide 17 mmol/L (22-29); Chloride 100 mmol/L (96-108); Creatinine Clr Calc Pharmacy 22.6; Estimated Glomerular Filt Rate 20; Glucose Random 178 mg/dL (60-115); Potassium 5.1 mmol/L (3.3-5.1); Sodium 128 mmol/L (135-145)
[2021-10-17 11:43] LABS: Glucose, Whole Blood 249 mg/dL (60-115)
[2021-10-17] MEDS: Ezetimibe 10 MG TABLET PO (12:02)
[2021-10-17] MEDS: Cholecalciferol (Vitamin D3) 25 MCG TABLET PO (12:02)
[2021-10-17] MEDS: Clopidogrel Bisulfate 75 MG TABLET PO (12:02)
[2021-10-17] MEDS: Folic Acid 1 MG TABLET PO (12:02)
[2021-10-17] MEDS: Atorvastatin Calcium 40 MG TABLET PO (12:02)
[2021-10-17] MEDS: Aspirin Enteric Coated 81 MG TABLET.DR PO (12:02)
[2021-10-17] MEDS: Omeprazole 20 MG CAPSULE.DR PO (12:03)
[2021-10-17] MEDS: Insulin Glargine,Hum.rec.anlog 100 UNIT/ML 10 ML VIAL 30 UNIT SUBCUT (12:04)
[2021-10-17] MEDS: Lactated Ringers 1,000 ML 100 ML IVCONT (12:10)
[2021-10-17 13:13] LABS: Glucose, Whole Blood 311 mg/dL (60-115)
[2021-10-17 15:22] VITALS: BP 127/67; PULSE 96; RESP 16; TEMP 36.8; O2SAT 98
[2021-10-17 15:43] LABS: Glucose, Whole Blood 160 mg/dL (60-115)
[2021-10-17 16:52] LABS: Anion Gap 13 (12-20); Blood Urea Nitrogen 57 mg/dL (9-16); Calcium 9.7 mg/dL (8.4-10.2); Carbon Dioxide 22 mmol/L (22-29); Chloride 102 mmol/L (96-108); Creatinine Clr Calc Pharmacy 32.5; Estimated Glomerular Filt Rate 31; Glucose Random 177 mg/dL (60-115); Potassium 4.6 mmol/L (3.3-5.1); Sodium 132 mmol/L (135-145)
[2021-10-17 21:07] VITALS: BP 127/64; PULSE 92; RESP 16; O2SAT 98
[2021-10-17 21:07] LABS: Glucose, Whole Blood 378 mg/dL (60-115)
--- NOTE | 2021-10-17 21:14 | PC.NURSE ---
POC 378, Dr Silver Ye notified, awaiting new orders.
--- NOTE | 2021-10-17 22:01 | MHC.CM.PN ---
CM attempted to meet with pt with regards to d/c planning. Pt sleeping. Unable to review IMM at this time. Will try when pt wakes. CM to follow for d/c needs.
--- NOTE | 2021-10-17 22:55 | MHC.CM.PN ---
CM met with admitted patient with bed assignment pending. IMM 10/17. HCP not on file. Copy requested. HCP/daughter Yessenia Parish ([phone]). PCP Rosalidn Cardoso at [facility]. NO Covid vaccinations. Has DM testing supplies only. No services. D/C plan is home without services. Pt to arrange transportation home. CM to follow for d/c needs.
[2021-10-17 23:09] LABS: Glucose, Whole Blood 156 mg/dL (60-115)
[2021-10-18 02:19] VITALS: BP 108/45; PULSE 80; RESP 14; O2SAT 100
[2021-10-18] MEDS: Lactated Ringers 1,000 ML 100 ML IVCONT (02:21)
[2021-10-18] MEDS: 0.9 % Sodium Chloride Flush 3 ML SYRINGE IVFLUSH (02:21)
[2021-10-18] MEDS: Heparin Sodium,Porcine 5,000 UNIT/ML VIAL 5000 UNIT SUBCUT ×2 (05:00→12:13)
[2021-10-18] MEDS: Omeprazole 20 MG CAPSULE.DR PO (05:45)
[2021-10-18 07:10] LABS: Glucose, Whole Blood 271 mg/dL (60-115)
[2021-10-18 07:20] LABS: Hematocrit 31.5 % (37.0-47.0); Hemoglobin 9.4 g/dl (12.0-16.0); Mean Corpuscular HGB Conc 29.8 g/dl (31.0-35.0); Mean Corpuscular Hemoglobin 19.3 pg (27.0-33.0); Mean Platelet Volume 9.3 fL (9.4-12.3); Platelet Count 548 X10*3/uL (160-400); Red Blood Count 4.87 X10*6/uL (4.20-5.50); Red Cell Distribution Width 20.5 % (11.0-16.0); White Blood Count 7.6 X10*3/uL (4.8-10.8)
[2021-10-18 07:22] LABS: Mean Corpuscular Volume 64.7 fL (80.0-98.0)
[2021-10-18] MEDS: Insulin Lispro 100 UNIT/ML 3 ML VIAL SUBCUT ×2 (07:22→12:12)
[2021-10-18] MEDS: Clopidogrel Bisulfate 75 MG TABLET PO (07:23)
[2021-10-18] MEDS: Cholecalciferol (Vitamin D3) 25 MCG TABLET PO (07:23)
[2021-10-18] MEDS: Folic Acid 1 MG TABLET PO (07:23)
[2021-10-18] MEDS: Atorvastatin Calcium 40 MG TABLET PO (07:23)
[2021-10-18] MEDS: Ezetimibe 10 MG TABLET PO (07:23)
[2021-10-18] MEDS: Aspirin Enteric Coated 81 MG TABLET.DR PO (07:24)
[2021-10-18 07:27] LABS: Anion Gap 14 (12-20); Blood Urea Nitrogen 41 mg/dL (9-16); Calcium 9.6 mg/dL (8.4-10.2); Carbon Dioxide 21 mmol/L (22-29); Chloride 105 mmol/L (96-108); Creatinine Clr Calc Pharmacy 49.6; Estimated Glomerular Filt Rate 50; Glucose Random 284 mg/dL (60-115); Potassium 5.1 mmol/L (3.3-5.1); Sodium 135 mmol/L (135-145)
[2021-10-18 10:19] VITALS: BP 131/65; PULSE 91; RESP 20; TEMP 36.3; O2SAT 100
[2021-10-18 11:24] VITALS: BP 130/63; PULSE 90; RESP 20; TEMP 36.3; O2SAT 99
[2021-10-18 11:31] LABS: Glucose, Whole Blood 295 mg/dL (60-115)
[2021-10-18] MEDS: Insulin Glargine,Hum.rec.anlog 100 UNIT/ML 10 ML VIAL 30 UNIT SUBCUT (12:11)
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
--- NOTE | 2021-10-18 12:28 | PM.DS ---
DS: Providers Provider Date of Service: 10/18/21 Date of admission: 10/17/21 09:08 Primary care physician: [facility] DS: Diagnosis Discharge Diagnosis (1) Acute kidney injury: Status: Acute DS: Summary Hospital Course Hospital Course: Chief Complaint: headache, back pain, leg ache This is a 56 yo F with a PMH as outlined below who presented to [facility] on 10/16/21 with multiple complaints. The patient reports that she went to an outpatient follow up where she was noted to have low blood pressure readings in the 70s and she was directed to the ED. The patient reprots that she had a vascular procedure completed last week and since then she has been feeling unwell. She reports intermittent leg pains, headaches and chest pain. She reports GERD symptoms. She reportst that she has not been eating and drinking well. She reports generalized malaise. She denies any fevers or chills. She reports nausea without vomiting or diarrhea. Upon arrival to the ED, she was ntoed to have LUIS. She was given 2L IVF but her SCr continued to rise. She has been given a 2L IVF and now will be admitted for further work up and treatment. Hospital course: 1. Acute Kidney Injury likely pre-renal vs ATN--Treated with IVF overnight with rapid unexpected improvement with creatinine down to 1.12 down from 2.68. She encouraged to drink plenty of fluid and to avoid, NSAID and other nephrotoxins. 2. Uncontrolled DM type 2 with hyperglycemia--to resme oral meds now that creatine is normal' 3. HypoNa likely hypovoluemic--resolved, sodium is 135 4. PAD s/p recent angiogram and plasty of the L anterior tibial artery DAPT + statin 5. Chronic osteomyelitis and onychomycosis continue doxy + antifungal 6. GERD PPI Dispo home to go see PCP, Time Spent with Patient Time attestation: Total time spent providing and/or coordinating discharge services: Discharge coordination time: Greater than 30 minutes Quality: Safe Use of Opioids Does Pt have an Active Cancer Diagnosis on the Problem List?: No Quality: Stroke Does the patient have a stroke diagnosis?: No Physical Exam Vital Signs: Vital Signs: Last Vital Signs Temp 97.4 F 10/18/21 11:24 Pulse 90 10/18/21 11:24 Resp 20 10/18/21 11:24 BP 130/63 10/18/21 11:24 Pulse Ox 99 10/18/21 11:24 BMI result Body Mass Index 32.4 DS: Data Data Completed and Pending Completed studies during hospitalization [Text1]: Procedures Insertion of Infusion Device into Superior Vena Cava, Percutaneous Approach (07/09/21) Labs on day of discharge: Laboratory Results - last 24 hr 10/17/21 10/17/21 10/17/21 13:09 15:40 16:28 WBC RBC Hgb Hct MCV MCH MCHC RDW Plt Count MPV Absolute Nucleated RBC Nucleated RBC % (auto) Sodium 132 L Potassium 4.6 Chloride 102 Carbon Dioxide 22 Anion Gap 13 BUN 57 H Creatinine 1.71 H Estim Creat Clear Calc 32.5 Estimated GFR 31 POC Glucose 311 H 160 H Random Glucose 177 H Calcium 9.7 10/17/21 10/17/21 10/18/21 21:04 23:06 06:54 WBC 7.6 RBC 4.87 Hgb 9.4 L Hct 31.5 L MCV 64.7 L MCH 19.3 L MCHC 29.8 L RDW 20.5 H Plt Count 548 H MPV 9.3 L Absolute Nucleated RBC 0.000 Nucleated RBC % (auto) 0.0 Sodium Potassium Chloride Carbon Dioxide Anion Gap BUN Creatinine Estim Creat Clear Calc Estimated GFR POC Glucose 378 H* 156 H Random Glucose Calcium 10/18/21 10/18/21 10/18/21 06:54 07:07 11:24 WBC RBC Hgb Hct MCV MCH MCHC RDW Plt Count MPV Absolute Nucleated RBC Nucleated RBC % (auto) Sodium 135 Potassium 5.1 Chloride 105 Carbon Dioxide 21 L Anion Gap 14 BUN 41 H Creatinine 1.12 Estim Creat Clear Calc 49.6 Estimated GFR 50 POC Glucose 271 H 295 H Random Glucose 284 H Calcium 9.6 Discharge Plan Discharge Anticipated Discharge Date/Time: 10/18/21 12:33 Patient Disposition: Home, Self-Care Discharge Diagnosis: Acute kidney injury Referrals: [facility] [Primary Care Provider] - 1 Week Discharge Medications: Continued silver sulfadiazine 1 % cream 1 appl topical DAILY 0RF folic acid 1 mg Tablet 1 mg PO DAILY Qty: 90 3RF pioglitazone 15 mg tablet 1 tab PO DAILY 0RF atorvastatin 40 mg tablet 1 tab PO DAILY 0RF aspirin 81 mg tablet,delayed release (DR/EC) 1 tab PO DAILY 0RF metformin 1,000 mg tablet 1 tab PO BID 0RF lisinopril-hydrochlorothiazide 20-25 mg tablet 1 tab PO DAILY 0RF ezetimibe 10 mg tablet 1 tab PO DAILY 0RF cholecalciferol (vitamin D3) 25 mcg (1,000 unit) tablet 1 tab PO DAILY 0RF Lantus Solostar U-100 Insulin 100 unit/mL (3 mL) insulin pen 40 unit subcut DAILY 0RF clopidogrel [Plavix] 75 mg tablet 75 mg PO DAILY Qty: 90 1RF (DME) lancets [TRUEplus Lancets] 33 gauge misc See Rx Instructions ea topical .MEDSUPPLY Qty: 100 0RF Rx Instructions: As directed (DME) pen needle, diabetic [UltiCare Pen Needle] 31 gauge x 5/16 needle See Rx Instructions ea subcut .MEDSUPPLY Qty: 1200 0RF Rx Instructions: As directed alcohol swabs [Alcohol Prep Pads] Pads, Medicated 1 pad topical TID 0RF (DME) FreeStyle Lite Strips Strip See Rx Instructions ea Not Applicable TID Qty: 10 0RF Rx Instructions: As directed doxycycline hyclate 100 mg capsule 100 mg PO BID 30 Days Qty: 60 1RF terbinafine HCl 250 mg tablet 250 mg PO DAILY 42 Days Qty: 42 0RF omeprazole 20 mg capsule,delayed release(DR/EC) 20 mg PO DAILY Qty: 30 5RF Discharge Orders: Discharge Order (Routine); Ordered 10/18/21 Ordered By: Cecilio Hernandez Diet: advance to usual diet Activity on Discharge: As tolerated Stand Alone Forms: Patient Portal Discharge page Care Plan Goals: Full recovery from renal failure Health Concerns: renal failure, chronic osteomylitis Plan of Treatment: Drink plenty of fluid Assessment: as above
--- NOTE | 2021-10-18 12:55 | MHC.CM.PN ---
PT DCD HOME NO SKILLED SERVCEIS ORDERED BY
[2021-10-18 15:09] VITALS: BP 125/67; PULSE 103; RESP 16; TEMP 36.4; O2SAT 99
== END 2021-10-18 15:35 | disposition home or self-care (01) | DRG 683 ==
LOC: HO.ED 10-17 00:57 → HO.EDOVER 10-17 09:12 → HO.IMC 10-18 09:09
PROVIDERS: Admitting Provider Family Medicine; Emergency Provider Emergency Medicine; Visit Provider Internal Medicine
DX: N17.0 Acute kidney failure with tubular necrosis (principal); E87.1 Hypo-osmolality and hyponatremia; M86.672 Other chronic osteomyelitis, left ankle and foot; M86.671 Other chronic osteomyelitis, right ankle and foot; E11.42 Type 2 diabetes mellitus with diabetic polyneuropathy; E11.65 Type 2 diabetes mellitus with hyperglycemia; K21.9 Gastro-esophageal reflux disease without esophagitis; E11.69 Type 2 diabetes mellitus with other specified complication; I95.9 Hypotension, unspecified; B35.1 Tinea unguium; E11.51 Type 2 diabetes mellitus with diabetic peripheral angiopathy without gangrene; Z20.822 Contact with and (suspected) exposure to COVID-19; Z79.82 Long term (current) use of aspirin; Z79.84 Long term (current) use of oral hypoglycemic drugs; Z79.02 Long term (current) use of antithrombotics/antiplatelets; Z79.899 Other long term (current) drug therapy
CPT/HCPCS: 36415; 80048; 80053; 82947; 84484; 85025; 85027; 87635; 93005; 96360; 96361; 99285

== ENCOUNTER 2021-10-30 11:55 | Outpatient (REF) | payer OTHER, SELFPAY ==
--- NOTE | ~2021-10-30 | XR_ITS ---
EXAMINATION: XR CHEST CLINICAL INFORMATION: Pleural pain COMPARISON: Previous chest x-ray July 2021 TECHNIQUE: 2 views of the chest were obtained. FINDINGS: The cardiac and mediastinal contours are normal. The lungs are clear. There is no pleural effusion or pneumothorax. There are degenerative changes of the spine. XR/XR chest 2V IMPRESSION: No evidence for acute disease in the chest.
== END 2021-10-30 11:56 | disposition home or self-care (01) ==
LOC: HO.XRAY 11:55
PROVIDERS: Absent Provider Registered Nurse; PCP Registered Nurse; Visit Provider Nurse Practitioner Family
DX: R07.81 Pleurodynia (principal)
CPT/HCPCS: 71046

== ENCOUNTER 2021-10-30 23:40 | Emergency (ER) | payer OTHER, SELFPAY ==
--- NOTE | ~2021-10-30 | NM_ITS ---
EXAMINATION: RI LUNG IMAGE PERFUSION CLINICAL INFORMATION: Positive d-dimer. Palpitations. COMPARISON: Chest x-ray 10/31/2021 TECHNIQUE: Following intravenous administration of 4 mCi of 90 9M technetium MAA, imaging of both lungs were obtained in multiple projections. Ventilation study was not performed. FINDINGS: On perfusion imaging there is normal flow seen to all segments of both lobes without any segmental or subsegmental defects. There is nonsegmental defect in the lingular segment corresponding to the cardiac silhouette. Ventilation study was not performed. NM/RI pul perfusion IMPRESSION: Normal perfusion scan with no defect seen.
--- NOTE | ~2021-10-30 | US_ITS ---
EXAMINATION: US VENOUS ULTRASOUND WITH DOPPLER LOWER EXTREMITY, BILATERAL CLINICAL INFORMATION: Left leg stent now with right leg pain. COMPARISON: None TECHNIQUE: Ultrasound of the deep veins is performed from the hip to the calf with compression sonography and color and pulse Doppler assessment. Spectral analysis with color-flow imaging is performed. FINDINGS: RIGHT: There is normal venous compression and respiratory variation and augmented flow. The visualized common femoral vein, superficial femoral vein, profunda femoral vein, popliteal vein, and the trifurcation region shows no evidence of deep venous thrombosis. There is no significant popliteal fossa cyst. LEFT: There is normal venous compression and respiratory variation and augmented flow. The visualized common femoral vein, superficial femoral vein, profunda femoral vein, popliteal vein, and the trifurcation region shows no evidence of deep venous thrombosis. There is no significant popliteal fossa cyst. If the patient's symptoms persist, followup ultrasound in 5 days 7 days might be of value to exclude proximal propagation from a non-visualized calf vein. Incidental note is made of bilateral inguinal lymph nodes which are normal in architectural features and at the upper limits of normal size. US/US venous duplex LE BI IMPRESSION: No deep venous thrombosis demonstrated in the left and right lower extremities.
--- NOTE | ~2021-10-30 | XR_ITS ---
EXAMINATION: XR CHEST CLINICAL INFORMATION: Baseline chest x-ray for PET scan. Palpitations. Positive d-dimer. COMPARISON: Previous chest x-ray from yesterday TECHNIQUE: Frontal view of the chest was obtained. FINDINGS: The cardiac and mediastinal contours are stable. The lungs are clear. There is no pleural effusion or pneumothorax. There are degenerative changes of the spine. XR/XR chest 1V IMPRESSION: No evidence for acute disease in the chest.
[2021-10-31 00:46] VITALS: BP 156/76; PULSE 112; RESP 22; TEMP 36.2; O2SAT 99; BMI 32.5
--- NOTE | 2021-10-31 01:57 | ED_ITS ---
HPI - General Adult General Chief complaint: General Medical <Aries Solano MD - Last Filed: 10/31/21 05:43> Stated complaint: abnormal labs/? clot <Aries Solano MD - Last Filed: 10/31/21 05:43> Time Seen by Provider: 10/31/21 01:14 <Aries Solano MD - Last Filed: 10/31/21 05:43> Source: patient <Aries Solano MD - Last Filed: 10/31/21 05:43> Mode of arrival: ambulatory <Aries Solano MD - Last Filed: 10/31/21 05:43> Limitations: no limitations <Aries Solano MD - Last Filed: 10/31/21 05:43> History of Present Illness HPI narrative: Patient with stenting to left leg via angiogram by Dr. Vigil. Patient went to post op evaluation but is complaining of right leg pain with bruising. In addition to the leg pain she is having Palpitation and right chest pain <Aries Solano MD - Last Filed: 10/31/21 05:43> Onset (ago): hour(s) <Aries Solano MD - Last Filed: 10/31/21 05:43> Location: chest <Aries Solano MD - Last Filed: 10/31/21 05:43> Radiation: non-radiation <Aries Solano MD - Last Filed: 10/31/21 05:43> Severity: mild <Aries Solano MD - Last Filed: 10/31/21 05:43> Pain Consistency: intermittent <Aries Solano MD - Last Filed: 10/31/21 05:43> Associated symptoms: chest pain and shortness of breath <Aries Solano MD - Last Filed: 10/31/21 05:43> Related Data Home medications: Home Medications Medication Instructions Recorded Confirmed aspirin 81 mg tablet,delayed 1 tab PO DAILY 07/02/21 10/17/21 release atorvastatin 40 mg tablet 1 tab PO DAILY 07/02/21 10/17/21 cholecalciferol (vitamin D3) 25 1 tab PO DAILY 07/02/21 10/17/21 mcg (1,000 unit) tablet ezetimibe 10 mg tablet 1 tab PO DAILY 07/02/21 10/17/21 insulin glargine 100 unit/mL (3 40 unit SUBCUT DAILY 07/02/21 10/17/21 mL) subcutaneous pen (Lantus Solostar U-100 Insulin) lisinopril 20 1 tab PO DAILY 07/02/21 10/17/21 mg-hydrochlorothiazide 25 mg tablet metformin 1,000 mg tablet 1 tab PO BID 07/02/21 10/17/21 pioglitazone 15 mg tablet 1 tab PO DAILY 07/02/21 10/17/21 silver sulfadiazine 1 % topical 1 appl TOPICAL DAILY 07/09/21 10/17/21 cream alcohol swabs (Alcohol Prep Pads) 1 pad TOPICAL TID 09/18/21 10/09/21 blood sugar diagnostic (FreeStyle #10 ea 09/18/21 10/09/21 Lite Strips) lancets 33 gauge (TRUEplus Lancets) #100 ea 09/18/21 10/09/21 pen needle, diabetic 31 gauge x #1200 ea 09/18/21 10/09/21 5/16 (UltiCare Pen Needle) Previous Rx's Medication Instructions Recorded folic acid 1 mg tablet 1 mg PO DAILY #90 tab 08/08/21 terbinafine HCl 250 mg tablet 250 mg PO DAILY 42 Days #42 tab 09/27/21 omeprazole 20 mg capsule,delayed 20 mg PO DAILY #30 cap 10/03/21 release clopidogrel 75 mg tablet (Plavix) 75 mg PO DAILY #90 tab 10/11/21 doxycycline hyclate 100 mg capsule 100 mg PO BID 30 Days #60 cap 10/26/21 cyclobenzaprine 10 mg tablet 10 mg PO TID PRN #14 tab 10/31/21 lidocaine 5 % topical patch 1 patch TOPICAL DAILY #15 ea 10/31/21 <Aries Solano MD - Last Filed: 10/31/21 05:43> Allergies/adverse reactions: Allergies Allergy/AdvReac Type Severity Reaction Status Date / Time No Known Allergies Allergy Unknown UNKNOWN Verified 10/09/21 11:06 [NO KNOWN ALLERGIES] <Aries Solano MD - Last Filed: 10/31/21 05:43> Review of Systems Constitutional: Constitutional: Reports no additional constitutional complaints <Aries Solano MD - Last Filed: 10/31/21 05:43> Eyes: Eyes: Reports no additional eye complaints <Aries Solano MD - Last Filed: 10/31/21 05:43> ENT: Denies dizziness <Aries Solano MD - Last Filed: 10/31/21 05:43> Cardiovascular: Cardiovascular: Reports no additional cardiovascular complaints <Aries Solano MD - Last Filed: 10/31/21 05:43> Respiratory: Respiratory: Reports as per HPI <Aries Solano MD - Last Filed: 10/31/21 05:43> Gastrointestinal: Gastrointestinal: Reports no additional gastrointestinal complaints <Aries Solano MD - Last Filed: 10/31/21 05:43> Genitourinary: Genitourinary: Reports no additional female genitourinary complaints <Aries Solano MD - Last Filed: 10/31/21 05:43> Musculoskeletal: Musculoskeletal: Reports no additional musculoskeletal complaints <Aries Solano MD - Last Filed: 10/31/21 05:43> Integumentary/Breasts: Skin/Breast: Denies rash <Aries Solano MD - Last Filed: 10/31/21 05:43> Neurologic: Reports system reviewed and no additional complaints, except as documented, Denies dizziness and Denies Sensory deficit (Neuro) <Aries Solano MD - Last Filed: 10/31/21 05:43> Psychiatric: Psychiatric: Denies anxiety <Aries Solano MD - Last Filed: 10/31/21 05:43> [facility] Past Medical History Medical History: Medical History Arthritis Carpal tunnel syndrome Degenerative joint disease of spine Diabetes HLD (hyperlipidemia) Hypertension Irritable bowel syndrome Leukocytosis Osteomyelitis Osteoporosis Peripheral neuropathy Prolapsed uterus Rectal prolapse Retinopathy Toe ulcer due to DM <Aries Solano MD - Last Filed: 10/31/21 05:43> Surgical History: Surgical History H/O dilation and curettage <Aries Solano MD - Last Filed: 10/31/21 05:43> Family History Family History: Family History Maternal Grandmother Diabetes Maternal Grandfather Heart disease Breast cancer Mother HTN (hypertension) Paternal Uncle Thalassemia <Aries Solano MD - Last Filed: 10/31/21 05:43> Social History Social History: Social History Household Members: Children Housing: Apartment Are you a primary care assistant to a significant other at home: No Do you presently have visiting nurse or other home services: No Alcohol intake: never Patient Tobacco Use Status: Never used Tobacco Advance Directives: No Advance Directives Information Provided: No Patient : No service: No Current occupational status: disabled <Aries Solano MD - Last Filed: 10/31/21 05:43> Physical Exam ED Vital Signs: Vital Signs - 24 hr 10/31/21 00:46 10/31/21 04:00 10/31/21 06:06 Temperature 97.2 F 97.4 F 98.5 F Pulse Rate 112 H 98 105 H Respiratory Rate 22 H 19 16 Blood Pressure 156/76 H 142/69 H 131/71 Pulse Oximetry 99 98 98 10/31/21 08:45 10/31/21 10:38 Temperature 98.1 F 98.0 F Pulse Rate 94 89 Respiratory Rate 17 16 Blood Pressure 129/48 L 135/66 Pulse Oximetry 99 98 BMI result Body Mass Index 32.5 <Aries Solano MD - Last Filed: 10/31/21 05:43> Vital Signs - 24 hr 10/31/21 00:46 10/31/21 04:00 10/31/21 06:06 Temperature 97.2 F 97.4 F 98.5 F Pulse Rate 112 H 98 105 H Respiratory Rate 22 H 19 16 Blood Pressure 156/76 H 142/69 H 131/71 Pulse Oximetry 99 98 98 10/31/21 08:45 10/31/21 10:38 Temperature 98.1 F 98.0 F Pulse Rate 94 89 Respiratory Rate 17 16 Blood Pressure 129/48 L 135/66 Pulse Oximetry 99 98 BMI result Body Mass Index 32.5 <Shanna Nayak DO - Last Filed: 10/31/21 10:52> Const General: healthy appearing <Aries Solano MD - Last Filed: 10/31/21 05:43> Nutritional Appearance: average body habitus <MD Fabio Brandon Last Filed: 10/31/21 05:43> Orientation/consciousness: oriented to person and patient oriented x3 <Aries Solano MD - Last Filed: 10/31/21 05:43> Limitations: no limitations <Aries Solano MD - Last Filed: 10/31/21 05:43> HENMT Head: Yes normal to inspection <Aries Solano MD - Last Filed: 10/31/21 05:43> Ears: external ears normal <Aries Solano MD - Last Filed: 10/31/21 05:43> General nose exam: Normal external nose present <MD Fabio Brandon Last Filed: 10/31/21 05:43> Mouth: Normal oral and palatal mucosa present and oropharynx normal <Aries Solano MD - Last Filed: 10/31/21 05:43> Throat: Yes posterior oropharynx normal <Aries Solano MD - Last Filed: 10/31/21 05:43> Eyes General: appearance normal, both eyes and all related structures <Aries Solano MD - Last Filed: 10/31/21 05:43> Neck Neck: Yes normal visual inspection <Aries Solano MD - Last Filed: 10/31/21 05:43> Chest Chest palpation & inspection: normal inspection of the chest <MD Fabio Brandon Last Filed: 10/31/21 05:43> Resp Auscultation: clear to auscultation bilaterally <Aries Solano MD - Last Filed: 10/31/21 05:43> Cardio Jugular venous distension: no JVD <MD Fabio Brandon Last Filed: 10/31/21 05:43> Rate: regular rate <MD Fabio Brandon Last Filed: 10/31/21 05:43> Rhythm: regular rhythm <MD Fabio Brandon Last Filed: 10/31/21 05:43> Heart sounds: S1 normal heart sound present and S2 normal heart sound present <MD Fabio Brandon Last Filed: 10/31/21 05:43> GI Inspection: Yes normal to inspection <Aries Solano MD - Last Filed: 10/31/21 05:43> Palpation (GI): Soft to palpation, nontender and No hepatosplenomegaly present <Aries Solano MD - Last Filed: 10/31/21 05:43> Auscultation: normal bowel sounds <Aries Solano MD - Last Filed: 10/31/21 05:43> General: Yes no CVA tenderness <Aries Solano MD - Last Filed: 10/31/21 05:43> Back/Spine/Pelvis Back: no CVA tenderness <Aries Solano MD - Last Filed: 10/31/21 05:43> Skin General skin exam: no rashes or lesions noted <Aries Solano MD - Last Filed: 10/31/21 05:43> Neuro General: oriented to person and patient oriented x3 <Aries Solano MD - Last Filed: 10/31/21 05:43> Cranial nerves: Yes CN's II-XII intact bilaterally <Aries Solano MD - Last Filed: 10/31/21 05:43> Motor exam (neuro): 5/5 motor strength present throughout <Aries Solano MD - Last Filed: 10/31/21 05:43> Sensory Exam: No Sensory deficit (Neuro) <Aries Solano MD - Last Filed: 10/31/21 05:43> Extrem General: Yes normal to inspection <Aries Solano MD - Last Filed: 10/31/21 05:43> Psych Appearance: grossly normal <Aries Solano MD - Last Filed: 10/31/21 05:43> Course Course Course Narrative: sign out at 7am - CXR negative, EKG and trop negative, PE study negative at this time VS stable can be DC home. 98% on RA. Physician observation ended at 1048am Follow up as outpatient. NAD, lungs clear, CV RRR, Abd nontender, Neuro intact. Disposition is for home. pain is mo stly radiating from her back and hurts to move ? MSK strain <Shanna Nayak DO - Last Filed: 10/31/21 10:52> Reevaluation(s) Reevaluation #1: patient placed in physician observation at 4:27am. She is awaiting a VQ scan because of recent contrast nephropathy, stent and positive ddime with palpitaions and chest pain. Also complaining of some shortness of breath <Aries Solano MD - Last Filed: 10/31/21 05:43> Time: 04:29 <Aries Solano MD - Last Filed: 10/31/21 05:43> Medical Decision Making Lab Data Result diagrams: : 10/31/21 02:26 10/31/21 02:26 <Aries Solano MD - Last Filed: 10/31/21 05:43> Labs: Lab Results 10/31/21 10/31/21 10/31/21 Range/Units 02:26 02:26 02:26 WBC 12.1 H (4.8-10.8) X10*3/uL RBC 5.15 (4.20-5.50) X10*6/uL Hgb 9.9 L (12.0-16.0) g/dl Hct 32.8 L (37.0-47.0) % MCV 63.7 L (80.0-98.0) fL MCH 19.2 L (27.0-33.0) pg MCHC 30.2 L (31.0-35.0) g/dl RDW 18.4 H (11.0-16.0) % Plt Count 427 H (160-400) X10*3/uL MPV 8.9 L (9.4-12.3) fL Immature Gran % (Auto) 0.3 (0.0-0.4) % Neut % (Auto) 62.6 (45-73) % Lymph % (Auto) 26.5 (20-40) % [place] % (Auto) 7.8 (2-11) % Eos % (Auto) 2.3 (0-4) % Baso % (Auto) 0.5 (0-2) % Lymph # (Auto) 3.2 (1.2-4.9) X10*3/uL [place] # (Auto) 0.9 (0.1-1.2) X10*3/uL Eos # (Auto) 0.3 (0.0-0.4) X10*3/uL Baso # (Auto) 0.1 (0.0-0.2) X10*3/uL Abs Immat Gran (auto) 0.04 H (0.00-0.03) X10*3/uL Absolute Neuts (auto) 7.6 (2.0-8.3) x10*3/uL Absolute Nucleated RBC 0.000 (0.0-0.012) X10*3/uL Nucleated RBC % (auto) 0.0 (0.0-0.2) /100WBC D-Dimer High Sensitivty 676 NG/ML Sodium 134 L (135-145) mmol/L Potassium 4.7 (3.3-5.1) mmol/L Chloride 102 (96-108) mmol/L Carbon Dioxide 23 (22-29) mmol/L Anion Gap 14 (12-20) BUN 33 H (9-16) mg/dL Creatinine 1.08 (0.5-1.4) mg/dL Estim Creat Clear Calc 51.6 Estimated GFR 52 Random Glucose 160 H (60-115) mg/dL Calcium 10.0 (8.4-10.2) mg/dL Troponin I High Sens (<3.5-17.0) ng/L 10/31/ Range/Units 02:26 WBC (4.8-10.8) X10*3/uL RBC (4.20-5.50) X10*6/uL Hgb (12.0-16.0) g/dl Hct (37.0-47.0) % MCV (80.0-98.0) fL MCH (27.0-33.0) pg MCHC (31.0-35.0) g/dl RDW (11.0-16.0) % Plt Count (160-400) X10*3/uL MPV (9.4-12.3) fL Immature Gran % (Auto) (0.0-0.4) % Neut % (Auto) (45-73) % Lymph % (Auto) (20-40) % [place] % (Auto) (2-11) % Eos % (Auto) (0-4) % Baso % (Auto) (0-2) % Lymph # (Auto) (1.2-4.9) X10*3/uL [place] # (Auto) (0.1-1.2) X10*3/uL Eos # (Auto) (0.0-0.4) X10*3/uL Baso # (Auto) (0.0-0.2) X10*3/uL Abs Immat Gran (auto) (0.00-0.03) X10*3/uL Absolute Neuts (auto) (2.0-8.3) x10*3/uL Absolute Nucleated RBC (0.0-0.012) X10*3/uL Nucleated RBC % (auto) (0.0-0.2) /100WBC D-Dimer High Sensitivty NG/ML Sodium (135-145) mmol/L Potassium (3.3-5.1) mmol/L Chloride (96-108) mmol/L Carbon Dioxide (22-29) mmol/L Anion Gap (12-20) BUN (9-16) mg/dL Creatinine (0.5-1.4) mg/dL Estim Creat Clear Calc Estimated GFR Random Glucose (60-115) mg/dL Calcium (8.4-10.2) mg/dL Troponin I High Sens < 3.5 (<3.5-17.0) ng/L <Aries Solano MD - Last Filed: 10/31/21 05:43> Lab Results 10/31/21 10/31/21 10/31/21 Range/Units 02:26 02:26 02:26 WBC 12.1 H (4.8-10.8) X10*3/uL RBC 5.15 (4.20-5.50) X10*6/uL Hgb 9.9 L (12.0-16.0) g/dl Hct 32.8 L (37.0-47.0) % MCV 63.7 L (80.0-98.0) fL MCH 19.2 L (27.0-33.0) pg MCHC 30.2 L (31.0-35.0) g/dl RDW 18.4 H (11.0-16.0) % Plt Count 427 H (160-400) X10*3/uL MPV 8.9 L (9.4-12.3) fL Immature Gran % (Auto) 0.3 (0.0-0.4) % Neut % (Auto) 62.6 (45-73) % Lymph % (Auto) 26.5 (20-40) % [place] % (Auto) 7.8 (2-11) % Eos % (Auto) 2.3 (0-4) % Baso % (Auto) 0.5 (0-2) % Lymph # (Auto) 3.2 (1.2-4.9) X10*3/uL [place] # (Auto) 0.9 (0.1-1.2) X10*3/uL Eos # (Auto) 0.3 (0.0-0.4) X10*3/uL Baso # (Auto) 0.1 (0.0-0.2) X10*3/uL Abs Immat Gran (auto) 0.04 H (0.00-0.03) X10*3/uL Absolute Neuts (auto) 7.6 (2.0-8.3) x10*3/uL Absolute Nucleated RBC 0.000 (0.0-0.012) X10*3/uL Nucleated RBC % (auto) 0.0 (0.0-0.2) /100WBC D-Dimer High Sensitivty 676 NG/ML Sodium 134 L (135-145) mmol/L Potassium 4.7 (3.3-5.1) mmol/L Chloride 102 (96-108) mmol/L Carbon Dioxide 23 (22-29) mmol/L Anion Gap 14 (12-20) BUN 33 H (9-16) mg/dL Creatinine 1.08 (0.5-1.4) mg/dL Estim Creat Clear Calc 51.6 Estimated GFR 52 Random Glucose 160 H (60-115) mg/dL Calcium 10.0 (8.4-10.2) mg/dL Troponin I High Sens (<3.5-17.0) ng/L 10/31/21 Range/Units 02:26 WBC (4.8-10.8) X10*3/uL RBC (4.20-5.50) X10*6/uL Hgb (12.0-16.0) g/dl Hct (37.0-47.0) % MCV (80.0-98.0) fL MCH (27.0-33.0) pg MCHC (31.0-35.0) g/dl RDW (11.0-16.0) % Plt Count (160-400) X10*3/uL MPV (9.4-12.3) fL Immature Gran % (Auto) (0.0-0.4) % Neut % (Auto) (45-73) % Lymph % (Auto) (20-40) % [place] % (Auto) (2-11) % Eos % (Auto) (0-4) % Baso % (Auto) (0-2) % Lymph # (Auto) (1.2-4.9) X10*3/uL [place] # (Auto) (0.1-1.2) X10*3/uL Eos # (Auto) (0.0-0.4) X10*3/uL Baso # (Auto) (0.0-0.2) X10*3/uL Abs Immat Gran (auto) (0.00-0.03) X10*3/uL Absolute Neuts (auto) (2.0-8.3) x10*3/uL Absolute Nucleated RBC (0.0-0.012) X10*3/uL Nucleated RBC % (auto) (0.0-0.2) /100WBC D-Dimer High Sensitivty NG/ML Sodium (135-145) mmol/L Potassium (3.3-5.1) mmol/L Chloride (96-108) mmol/L Carbon Dioxide (22-29) mmol/L Anion Gap (12-20) BUN (9-16) mg/dL Creatinine (0.5-1.4) mg/dL Estim Creat Clear Calc Estimated GFR Random Glucose (60-115) mg/dL Calcium (8.4-10.2) mg/dL Troponin I High Sens < 3.5 (<3.5-17.0) ng/L <Shanna Nayak DO - Last Filed: 10/31/21 10:52> Imaging Data bilateral duplex: Radiologist's impression: IMPRESSION: No deep venous thrombosis demonstrated in the left and right lower extremities. <Aries Solano MD - Last Filed: 10/31/21 05:43> ECG Data Attestation: I personally reviewed and interpreted this ECG as follows: <Aries Solano MD - Last Filed: 10/31/21 05:43> Interpretation: sinus 100, no ST wave changes <Aries Solano MD - Last Filed: 10/31/21 05:43> Discharge Plan Discharge Clinical Impression: Chest wall pain, Acute dyspnea Back pain, thoracic Qualifiers: Chronicity: acute Back pain laterality: right Qualified Code(s): M54.6 - Pain in thoracic spine <Aries Solano MD - Last Filed: 10/31/21 05:43> Patient Disposition: Home, Self-Care <Aries Solano MD - Last Filed: 10/31/21 05:43> Instructions: Chest Pain (ED), Dyspnea (ED), Back Pain (ED) <Aries Solano MD - Last Filed: 10/31/21 05:43> Additional Instructions: return to ED for any worsening symptoms or concerns <Aries Solano MD - Last Filed: 10/31/21 05:43> Prescriptions: New cyclobenzaprine 10 mg tablet 10 mg PO TID PRN (Reason: muscle spasm) Qty: 14 0RF lidocaine 5 % adhesive patch,medicated 1 patch topical DAILY Qty: 15 0RF Rx Instructions: leave on most painful area for up to 12 hrs No Action doxycycline hyclate 100 mg capsule 100 mg PO BID 30 Days Qty: 60 1RF silver sulfadiazine 1 % cream 1 appl topical DAILY 0RF folic acid 1 mg Tablet 1 mg PO DAILY Qty: 90 3RF pioglitazone 15 mg tablet 1 tab PO DAILY 0RF atorvastatin 40 mg tablet 1 tab PO DAILY 0RF aspirin 81 mg tablet,delayed release (DR/EC) 1 tab PO DAILY 0RF metformin 1,000 mg tablet 1 tab PO BID 0RF lisinopril-hydrochlorothiazide 20-25 mg tablet 1 tab PO DAILY 0RF ezetimibe 10 mg tablet 1 tab PO DAILY 0RF cholecalciferol (vitamin D3) 25 mcg (1,000 unit) tablet 1 tab PO DAILY 0RF Lantus Solostar U-100 Insulin 100 unit/mL (3 mL) insulin pen 40 unit subcut DAILY 0RF clopidogrel [Plavix] 75 mg tablet 75 mg PO DAILY Qty: 90 1RF (DME) lancets [TRUEplus Lancets] 33 gauge misc See Rx Instructions ea topical .MEDSUPPLY Qty: 100 0RF Rx Instructions: As directed (DME) pen needle, diabetic [UltiCare Pen Needle] 31 gauge x 5/16 needle See Rx Instructions ea subcut .MEDSUPPLY Qty: 1200 0RF Rx Instructions: As directed alcohol swabs [Alcohol Prep Pads] Pads, Medicated 1 pad topical TID 0RF (DME) FreeStyle Lite Strips Strip See Rx Instructions ea Not Applicable TID Qty: 10 0RF Rx Instructions: As directed terbinafine HCl 250 mg tablet 250 mg PO DAILY 42 Days Qty: 42 0RF omeprazole 20 mg capsule,delayed release(DR/EC) 20 mg PO DAILY Qty: 30 5RF <Aries Solano MD - Last Filed: 10/31/21 05:43> Referrals: Rosalind Cardoso, [employer] [Primary Care Provider] - 3 days (if not better) <Aries Solano MD - Last Filed: 10/31/21 05:43>
--- NOTE | 2021-10-31 02:01 | ECG_ITS ---
Test Reason : CHEST PAIN Blood Pressure : / mmHG Vent. Rate : 100 BPM Atrial Rate : 100 BPM P-R Int : 138 ms QRS Dur : 074 ms QT Int : 330 ms P-R-T Axes : 057 059 047 degrees QTc Int : 425 ms Normal sinus rhythm Normal ECG When compared with ECG of 16-OCT-2021 22:36, Questionable change in QRS axis Referred By: Aries Solano Electronically Signed By:PHILOMENA SUAREZ
[2021-10-31 02:32] LABS: Basophils Absolute Auto 0.1 X10*3/uL (0.0-0.2); Basophils Percent Auto 0.5 % (0-2); Eosinophils Absolute Auto 0.3 X10*3/uL (0.0-0.4); Eosinophils Percent Auto 2.3 % (0-4); Hematocrit 32.8 % (37.0-47.0); Hemoglobin 9.9 g/dl (12.0-16.0); Imm Gran Abs Auto 0.04 X10*3/uL (0.00-0.03); Imm Gran Pct Auto 0.3 % (0.0-0.4); Lymphocytes Absolute Auto 3.2 X10*3/uL (1.2-4.9); Lymphocytes Percent Auto 26.5 % (20-40); MANUAL DIFF FLAG NO; Mean Corpuscular HGB Conc 30.2 g/dl (31.0-35.0); Mean Corpuscular Hemoglobin 19.2 pg (27.0-33.0); Mean Platelet Volume 8.9 fL (9.4-12.3); Monocytes Absolute Auto 0.9 X10*3/uL (0.1-1.2); Monocytes Percent Auto 7.8 % (2-11); Neutrophils Absolute Auto 7.6 x10*3/uL (2.0-8.3); Neutrophils Percent Auto 62.6 % (45-73); Platelet Count 427 X10*3/uL (160-400); Red Blood Count 5.15 X10*6/uL (4.20-5.50); Red Cell Distribution Width 18.4 % (11.0-16.0); White Blood Count 12.1 X10*3/uL (4.8-10.8)
[2021-10-31 02:35] LABS: Mean Corpuscular Volume 63.7 fL (80.0-98.0)
[2021-10-31 02:41] LABS: D Dimer High Sensitivity 676 NG/ML
[2021-10-31 02:48] LABS: Anion Gap 14 (12-20); Blood Urea Nitrogen 33 mg/dL (9-16); Carbon Dioxide 23 mmol/L (22-29); Chloride 102 mmol/L (96-108); Creatinine Clr Calc Pharmacy 51.6; Estimated Glomerular Filt Rate 52; Glucose Random 160 mg/dL (60-115); Potassium 4.7 mmol/L (3.3-5.1); Sodium 134 mmol/L (135-145)
[2021-10-31 02:51] LABS: Troponin-I High Sensitivity < 3.5 ng/L (<3.5-17.0)
[2021-10-31 04:00] VITALS: BP 142/69; PULSE 98; RESP 19; TEMP 36.3; O2SAT 98
[2021-10-31 06:06] VITALS: BP 131/71; PULSE 105; RESP 16; TEMP 36.9; O2SAT 98
[2021-10-31 08:45] VITALS: BP 129/48; PULSE 94; RESP 17; TEMP 36.7; O2SAT 99
[2021-10-31 10:38] VITALS: BP 135/66; PULSE 89; RESP 16; TEMP 36.7; O2SAT 98
== END 2021-10-31 11:14 | disposition home or self-care (01) ==
PROVIDERS: Emergency Provider Emergency Medicine; PCP Registered Nurse
DX: R00.2 Palpitations (principal); M79.604 Pain in right leg; R07.89 Other chest pain; R79.89 Other specified abnormal findings of blood chemistry; M54.6 Pain in thoracic spine; R06.02 Shortness of breath; R60.0 Localized edema; Z79.899 Other long term (current) drug therapy
CPT/HCPCS: 36415; 71045; 78580; 80048; 84484; 85025; 85379; 93005; 93970; 99284; 99285; A9540

== ENCOUNTER 2021-10-31 12:23 | Outpatient (REF) | payer OTHER, SELFPAY ==
--- NOTE | ~2021-10-31 | MM_ITS ---
EXAMINATION: MM SCREENING DIGITAL BREAST TOMOSYNTHESIS, BILATERAL CLINICAL INFORMATION: Screening. Asymptomatic. The lifetime risk of breast cancer based on the Tyrer-Cuzick Model is 7%. COMPARISON: Mammography: 12/06/2015 (new baseline) TECHNIQUE: Digital breast tomosynthesis is performed in both the craniocaudal and mediolateral oblique views along with computer-aided detection (CAD). Synthesized 2D images are generated from the tomosynthesis. Additional right MLO view is provided. FINDINGS: There are scattered areas of fibroglandular density (ACR BI-RADS breast composition Category b). Breast tissue composition borders on predominantly fatty. Left breast stromal and fibroglandular densities are stable. Neither breast shows abnormal calcifications. The axilla and skin contours are unremarkable. Right breast has a focal asymmetric density close to skin on MLO view in the upper outer quadrant 12 cm from nipple measuring approximately 0.3 x 0.8 cm. Patient will be recalled for additional imaging. MM/MM tomosynthesis screening BI IMPRESSION: Right: -Focal asymmetric density posterior upper outer quadrant under 1.5 cm. Left: -No mammographic evidence of malignancy. ASSESSMENT: BI-RADS 0: Incomplete - Need Additional Imaging Evaluation RECOMMENDATION: 1. Additional views of the right breast (spot CC, spot ML). 2. Targeted ultrasound right breast. 3. Radiology department staff will contact the patient for additional imaging. This patient's information was entered into a reminder system with a target due date for their next mammogram.
== END 2021-10-31 12:24 | disposition home or self-care (01) ==
LOC: HO.MAMMO 12:23
PROVIDERS: PCP Registered Nurse; Visit Provider Registered Nurse
DX: Z12.31 Encounter for screening mammogram for malignant neoplasm of breast (principal)
CPT/HCPCS: 77063; 77067

== ENCOUNTER 2021-11-06 08:25 | Outpatient (REF) | payer OTHER, SELFPAY ==
--- NOTE | ~2021-11-06 | MM_ITS ---
EXAMINATION: MM DIAGNOSTIC DIGITAL BREAST TOMOSYNTHESIS, RIGHT US DIAGNOSTIC ULTRASOUND BREAST, RIGHT CLINICAL INFORMATION: Recall from screening for focal asymmetric density posterior upper outer right breast, new from prior mammography 2016. COMPARISON: Mammography: 10/31/2021, 12/06/2015 (new baseline). TECHNIQUE: Digital breast tomosynthesis is performed. 2D images are generated from the tomosynthesis. The following views are obtained: Spot CC, spot MLO x2. Ultrasound right breast is targeted to the upper outer quadrant using grayscale imaging and color Doppler without and with harmonics. FINDINGS: There are scattered areas of fibroglandular density (ACR BI-RADS breast composition Category b). Additional spot views confirm a new oval focal asymmetric density close to skin posterior upper outer right breast measuring approximately 1.4 x 0.7 cm. There are some scattered foci of fatty composition within the lesion. No skin thickening or coarsening of the Masoud's ligaments. No associated calcifications. Ultrasound demonstrates oval hyperechoic nodule posterior upper outer breast approximately 12 cm from nipple measuring 1.3 x 0.7 cm. There are some scattered internal anechoic foci, largest just under 0.4 cm. Results are discussed with the patient at time of visit. The finding is most suggestive of focal fat necrosis. Discussion with the patient reveals no recollection of prior right breast trauma since prior mammography 2016. In addition, there has been no other prior more recent outside mammography to allow for additional comparison for stability. Management options discussed with patient. Given that the finding is new there is no prior history of trauma, ultrasound-guided core biopsy is recommended to confirm benignity. MM/MM tomosynthesis added views R IMPRESSION: New focal asymmetric density posterior upper outer right breast with imaging features suggestive of focal fat necrosis. Patient notes no prior history of right breast trauma however. ASSESSMENT: BI-RADS 4: Suspicious (subcategory 4A: Low suspicion for malignancy) RECOMMENDATION: Ultrasound-guided biopsy right breast. This patient's information was entered into a reminder system with a target due date for their next mammogram.
== END 2021-11-06 08:26 | disposition home or self-care (01) ==
LOC: HO.MAMMO 08:25
PROVIDERS: PCP Registered Nurse; Visit Provider Registered Nurse
DX: R92.2 Inconclusive mammogram (principal)
CPT/HCPCS: 76642; 77061; 77065

== ENCOUNTER → 2021-11-07 10:12 | Outpatient (BNVA) | payer OTHER, SELFPAY | PROVIDERS: PCP Registered Nurse; Visit Provider Surgery Vascular Surgery | DX: I73.9 Peripheral vascular disease, unspecified (principal) | CPT/HCPCS: 99212 ==

== ENCOUNTER 2021-11-16 08:58 | Outpatient (REF) | payer OTHER, SELFPAY ==
--- NOTE | ~2021-11-16 | FL_ITS ---
EXAMINATION: FL BARIUM SWALLOW CLINICAL INFORMATION: Dysphagia. COMPARISON: None TECHNIQUE: Barium swallow examination is performed using fluoroscopic evaluation in addition to multiple fluoroscopic spot views. The patient is imaged both upright and prone and using both thick and thin sulfate along with effervescent granules. FLUOROSCOPY TIME: 1.4 minutes DAP: 3.29 Gy-cm2 FLUOROSCOPIC IMAGES: 35 FINDINGS: Following oral administration of thick barium and barium coated turkey with barium tablet there is normal propagation of bolus from the oral cavity through the pharynx, esophagus into stomach without any evidence of obstruction, narrowing or stricture. The course, caliber and peristalsis of the esophagus is normal. No laryngeal penetration or aspiration seen. There is no retention of food in the valleculae or piriform sinuses. FL/FL barium swallow IMPRESSION: Normal barium swallow exam.
== END 2021-11-16 08:59 | disposition home or self-care (01) ==
LOC: HO.XRAY 08:58
PROVIDERS: Visit Provider Physician Assistant
DX: R13.10 Dysphagia, unspecified (principal); K21.9 Gastro-esophageal reflux disease without esophagitis
CPT/HCPCS: 74220

== ENCOUNTER → 2021-11-17 13:01 | Outpatient (BNVA) | payer OTHER, SELFPAY | PROVIDERS: Visit Provider Internal Medicine | DX: M86.9 Osteomyelitis, unspecified (principal) | CPT/HCPCS: 99212 ==

== ENCOUNTER 2021-12-12 02:38 | Observation (INO) | payer OTHER, SELFPAY ==
[2021-12-12] VITALS (9 sets, daily range): BP systolic 120–164; BP diastolic 57–88; PULSE 79–93; RESP 14–20; TEMP 36.3–37.1; O2SAT 97–100; BMI 33.7
--- NOTE | ~2021-12-12 | US_ITS ---
EXAMINATION: US ABDOMEN COMPLETE CLINICAL INFORMATION: Right-sided abdominal pain. COMPARISON: None TECHNIQUE: Real-time imaging of the abdominal viscera. FINDINGS: PANCREAS: Normal. ABDOMINAL AORTA: The proximal, mid, and distal segments are normal in caliber. INFERIOR VENA CAVA: Visualized portions are normal. LIVER: Normal. The liver is normal in size. The liver contour is normal. Parenchymal echogenicity is normal. No focal hepatic lesion. There is no intrahepatic biliary duct dilatation seen. GALLBLADDER: The gallbladder is normal in size. There are gallstones in echogenic bile in the gallbladder. The gallbladder wall is normal. COMMON BILE DUCT: Upper normal in size measuring 0.8 cm in diameter. RIGHT KIDNEY: Normal. No hydronephrosis. No renal calculi or focal parenchymal lesions. The kidney measures 11.3 cm in maximum dimension. There is mild dilatation of the visualized right proximal ureter. Right ureteral jet is seen. LEFT KIDNEY: Normal. No hydronephrosis. No renal calculi or focal parenchymal lesions. The kidney measures 10 cm in maximum dimension. SPLEEN: Normal. The spleen measures 9.7 cm in maximum dimension. FREE FLUID: None. US/US abdomen complete IMPRESSION: Gallstones and echogenic bile in gallbladder. Upper normal-size common bile duct. Mild dilatation of the visualized right proximal ureter. No hydronephrosis.
--- NOTE | ~2021-12-12 | NM_ITS ---
EXAMINATION: PULMONARY PERFUSION STUDY CLINICAL INFORMATION: Chest pain, elevated d-dimer. COMPARISON: The previous lung scan dated 10/31/2021 is available for comparison. A radiograph the chest dated 12/12/2021, the same date as this lung scan, is available for comparison. TECHNIQUE: Following the intravenous injection of 4.0 mCi Tc-99m MAA, the lungs were imaged in the anterior and posterior, MALAY, MILLER, LPO, and RPO projections using a gamma scintillation camera. FINDINGS: No segmental perfusion defects are present. There is homogeneous distribution of activity bilaterally. There are no focal anatomic appearing perfusion defects present. Compared to the previous lung scan dated 10/31/2021, the has not been a significant change. NM/NM pul perfusion IMPRESSION: Normal radionuclide lung perfusion scan.
--- NOTE | ~2021-12-12 | XR_ITS ---
EXAMINATION: XR CHEST CLINICAL INFORMATION: Chest pain COMPARISON: 10.31.2021 TECHNIQUE: Frontal view of the chest was obtained. FINDINGS: No significant abnormality is noted involving the heart, lungs, mediastinum, bony thorax or soft tissues. XR/XR chest 1V IMPRESSION: Unremarkable examination.
--- NOTE | 2021-12-12 02:55 | ECG_ITS ---
Test Reason : CHEST PAIN Blood Pressure : / mmHG Vent. Rate : 093 BPM Atrial Rate : 093 BPM P-R Int : 140 ms QRS Dur : 076 ms QT Int : 342 ms P-R-T Axes : 068 060 052 degrees QTc Int : 425 ms Normal sinus rhythm Normal ECG When compared with ECG of 31-OCT-2021 02:33, No significant change was found Referred By: Shanna Nayak Electronically Signed By:PHILOMENA SUAREZ
--- NOTE | 2021-12-12 03:08 | ED_ITS ---
HPI - Chest Pain General Chief Complaint: Abdominal Pain Stated Complaint: cp Time Seen by Provider: 12/12/21 02:47 Source: patient Mode of arrival: EMS Limitations: no limitations History of Present Illness MD complaint: chest pain Onset (ago): minute(s) (45) Timing of current episode: constant Prior episodes: Yes Onset: during rest Pain location: left chest Pain radiation: none Severity: mild Quality: tightness and sharp Relieving factors: nothing Exacerbating factors: movement Context: other (takes daily ASA and plavix for PAD) Associated symptoms: other (body aches) Treatment prior to arrival: aspirin (324) Related Data Home Medications Medication Instructions Recorded Confirmed aspirin 81 mg tablet,delayed 1 tab PO DAILY 07/02/21 10/17/21 release atorvastatin 40 mg tablet 1 tab PO DAILY 07/02/21 10/17/21 cholecalciferol (vitamin D3) 25 1 tab PO DAILY 07/02/21 10/17/21 mcg (1,000 unit) tablet ezetimibe 10 mg tablet 1 tab PO DAILY 07/02/21 10/17/21 insulin glargine 100 unit/mL (3 40 unit SUBCUT DAILY 07/02/21 10/17/21 mL) subcutaneous pen (Lantus Solostar U-100 Insulin) lisinopril 20 1 tab PO DAILY 07/02/21 10/17/21 mg-hydrochlorothiazide 25 mg tablet metformin 1,000 mg tablet 1 tab PO BID 07/02/21 10/17/21 pioglitazone 15 mg tablet 1 tab PO DAILY 07/02/21 10/17/21 silver sulfadiazine 1 % topical 1 appl TOPICAL DAILY 07/09/21 10/17/21 cream alcohol swabs (Alcohol Prep Pads) 1 pad TOPICAL TID 09/18/21 10/09/21 blood sugar diagnostic (FreeStyle #10 ea 09/18/21 10/09/21 Lite Strips) lancets 33 gauge (TRUEplus Lancets) #100 ea 09/18/21 10/09/21 pen needle, diabetic 31 gauge x #1200 ea 09/18/21 10/09/21 5/16 (UltiCare Pen Needle) Previous Rx's Medication Instructions Recorded folic acid 1 mg tablet 1 mg PO DAILY #90 tab 08/08/21 terbinafine HCl 250 mg tablet 250 mg PO DAILY 42 Days #42 tab 09/27/21 omeprazole 20 mg capsule,delayed 20 mg PO DAILY #30 cap 10/03/21 release clopidogrel 75 mg tablet (Plavix) 75 mg PO DAILY #90 tab 10/11/21 doxycycline hyclate 100 mg capsule 100 mg PO BID 30 Days #60 cap 10/26/21 cyclobenzaprine 10 mg tablet 10 mg PO TID PRN #14 tab 10/31/21 lidocaine 5 % topical patch 1 patch TOPICAL DAILY #15 ea 10/31/21 Allergies Allergy/AdvReac Type Severity Reaction Status Date / Time No Known Allergies Allergy Unknown UNKNOWN Verified 11/17/21 12:59 [NO KNOWN ALLERGIES] Review of Systems Review of Systems: Constitutional : No Weight loss, No Fever, No Chills ENT/Mouth : No sore throat, No Rhinorrhea Eyes: No Eye Pain, No Swelling Cardiovascular : pos Chest Pain, no SOB, no Dyspnea on Exertion, No Orthopnea, No Edema, No Palpitations Respiratory : No Cough, No Sputum Gastrointestinal : no Nausea, No Vomiting, No Diarrhea, No abdominal Pain, No Hematochezia, No Melena Genitourinary : No Dysuria, No Urinary Frequency Musculoskeletal : No joint pain, pos Myalgias, No Joint Swelling Skin : No Skin Lesions, No rash Neuro : No Weakness, No Numbness, No Dizziness, No Headache Psych : No Anxiety/Panic, No Depression Heme/Lymph: No Bruising, No Lymphadenopathy Endocrine : No Polyuria, No Polydipsia All other systems reviewed and are negative [facility] Past Medical History Attestation statement: The following information was validated with the patient. Medical History Arthritis Carpal tunnel syndrome Degenerative joint disease of spine Diabetes HLD (hyperlipidemia) Hypertension Irritable bowel syndrome Leukocytosis Osteomyelitis Osteoporosis Peripheral neuropathy Prolapsed uterus Rectal prolapse Retinopathy Toe ulcer due to DM Surgical History H/O dilation and curettage Family History Family History Maternal Grandmother Diabetes Maternal Grandfather Heart disease Breast cancer Mother HTN (hypertension) Paternal Uncle Thalassemia Social History Social History Household Members: Children Housing: Apartment Are you a primary care services manager to a significant other at home: No Do you presently have visiting nurse or other home services: No Alcohol intake: never Patient Tobacco Use Status: Never used Tobacco Use of substances other than those prescribed or required for medical reasons: No Advance Directives: No Patient : No service: No Current occupational status: disabled Physical Exam Vital Signs: Vital Signs: Last Vital Signs Temp 98.7 F 12/12/21 02:54 Pulse 92 12/12/21 06:00 Resp 15 12/12/21 06:00 BP 120/65 12/12/21 06:00 Pulse Ox 98 12/12/21 06:00 BMI result Body Mass Index 33.7 Appearance: Alert. Oriented X3. No acute distress. Anxious Eyes: Pupils equal, round and reactive to light. ENT: Pharynx normal. Neck: Normal inspection. Neck supple. CVS: Normal heart rate and rhythm. Pulses normal. Chest: ttp along R anterior lower ribs Respiratory: No respiratory distress. Breath sounds normal. Abdomen: Soft and nontender. Skin: Skin warm and dry. Normal skin color. Normal skin turgor. Extremities: No lower extremity edema. No calf ttp bilateral pedal pulses bounding Neuro: Oriented X 3. No motor deficit. No sensory deficit. Course Course Course Narrative: ddimer elevated hx of LUIS in past and dehydrated now, VQ scan ordered, troponin at 615 ordered replete magnesium repeat trop ordered VQ scan pending hospitalist aware of pending admit signed out to Dr. Harris pending VQ scan. MDM - Chest Pain MDM Narrative Medical decision making narrative: 56 yo female with hx of LUIS, HTN, HLD, IBS, PAD on aspirin and plavix, anemia here with c/o stabbing L sided chest pain that woke her from sleep tonight - no other associated symptoms - she also c/o chronic R rib pain worried that she has something on her bone as she has had pain in that area for a while and told she needed a biopsy of lesion on breast but cannot get it done due to vascular surgery and need for plavix x 3 months (surgery in october). At this time will obtain labs troponin x 2, ddimer, CXR, IV morphine for pain. Dispo per results and findings. Lab Data Result diagrams: 12/12/21 03:13 12/12/21 03:13 Labs: Lab Results 12/12/21 12/12/21 12/12/21 Range/Units 03:12 03:12 03:13 WBC 13.3 H (4.8-10.8) X10*3/uL RBC 4.75 (4.20-5.50) X10*6/uL Hgb 9.3 L (12.0-16.0) g/dl Hct 29.8 L (37.0-47.0) % MCV 62.7 L (80.0-98.0) fL MCH 19.6 L (27.0-33.0) pg MCHC 31.2 (31.0-35.0) g/dl RDW 17.9 H (11.0-16.0) % Plt Count 423 H (160-400) X10*3/uL MPV 9.2 L (9.4-12.3) fL Immature Gran % (Auto) 0.4 (0.0-0.4) % Neut % (Auto) 61.9 (45-73) % Lymph % (Auto) 27.7 (20-40) % [place] % (Auto) 8.2 (2-11) % Eos % (Auto) 1.5 (0-4) % Baso % (Auto) 0.3 (0-2) % Lymph # (Auto) 3.7 (1.2-4.9) X10*3/uL [place] # (Auto) 1.1 (0.1-1.2) X10*3/uL Eos # (Auto) 0.2 (0.0-0.4) X10*3/uL Baso # (Auto) 0.0 (0.0-0.2) X10*3/uL Abs Immat Gran (auto) 0.05 H (0.00-0.03) X10*3/uL Absolute Neuts (auto) 8.2 (2.0-8.3) x10*3/uL Absolute Nucleated RBC 0.000 (0.0-0.012) X10*3/uL Nucleated RBC % (auto) 0.0 (0.0-0.2) /100WBC PT (9.9-13.0) SEC INR (0.9-1.1) D-Dimer High Sensitivty NG/ML Sodium (135-145) mmol/L Potassium (3.3-5.1) mmol/L Chloride (96-108) mmol/L Carbon Dioxide (22-29) mmol/L Anion Gap (12-20) BUN (9-16) mg/dL Creatinine (0.5-1.4) mg/dL Estim Creat Clear Calc Estimated GFR Random Glucose (60-115) mg/dL Calcium (8.4-10.2) mg/dL Magnesium (1.6-2.6) mg/dL Total Bilirubin (0.0-1.0) mg/dL Direct Bilirubin (0.0-0.5) mg/dL AST (5-31) U/L ALT (0-31) U/L Alkaline Phosphatase (39-117) U/L Troponin I High Sens (<3.5-17.0) ng/L Total Protein (6.5-8.0) g/dL Albumin (3.5-5.0) g/dL Lipase (8-78) U/L COVID-19 (LANCE) Negative (Negative) COVID-19 Clin Com See Note Influenza Type A (MADY) Negative (Negative) Influenza Type B (MADY) Negative (Negative) Influenza A & B Note See Note 12/12/21 12/12/21 12/12/21 Range/Units 03:13 03:13 03:13 WBC (4.8-10.8) X10*3/uL RBC (4.20-5.50) X10*6/uL Hgb (12.0-16.0) g/dl Hct (37.0-47.0) % MCV (80.0-98.0) fL MCH (27.0-33.0) pg MCHC (31.0-35.0) g/dl RDW (11.0-16.0) % Plt Count (160-400) X10*3/uL MPV (9.4-12.3) fL Immature Gran % (Auto) (0.0-0.4) % Neut % (Auto) (45-73) % Lymph % (Auto) (20-40) % [place] % (Auto) (2-11) % Eos % (Auto) (0-4) % Baso % (Auto) (0-2) % Lymph # (Auto) (1.2-4.9) X10*3/uL [place] # (Auto) (0.1-1.2) X10*3/uL Eos # (Auto) (0.0-0.4) X10*3/uL Baso # (Auto) (0.0-0.2) X10*3/uL Abs Immat Gran (auto) (0.00-0.03) X10*3/uL Absolute Neuts (auto) (2.0-8.3) x10*3/uL Absolute Nucleated RBC (0.0-0.012) X10*3/uL Nucleated RBC % (auto) (0.0-0.2) /100WBC PT 11.4 (9.9-13.0) SEC INR 1.0 (0.9-1.1) D-Dimer High Sensitivty 471 NG/ML Sodium 126 L (135-145) mmol/L Potassium 4.3 (3.3-5.1) mmol/L Chloride 92 L (96-108) mmol/L Carbon Dioxide 22 (22-29) mmol/L Anion Gap 16 (12-20) BUN 40 H D (9-16) mg/dL Creatinine 1.55 H (0.5-1.4) mg/dL Estim Creat Clear Calc 36.6 Estimated GFR 34 Random Glucose 129 H (60-115) mg/dL Calcium 9.3 D (8.4-10.2) mg/dL Magnesium 1.0 L* (1.6-2.6) mg/dL Total Bilirubin 0.3 (0.0-1.0) mg/dL Direct Bilirubin < 0.2 (0.0-0.5) mg/dL AST 24 (5-31) U/L ALT 34 H (0-31) U/L Alkaline Phosphatase 98 (39-117) U/L Troponin I High Sens < 3.5 (<3.5-17.0) ng/L Total Protein 6.3 L (6.5-8.0) g/dL Albumin 3.8 (3.5-5.0) g/dL Lipase 38 (8-78) U/L COVID-19 (LANCE) (Negative) COVID-19 Clin Com Influenza Type A (MADY) (Negative) Influenza Type B (MADY) (Negative) Influenza A & B Note 12/12/21 Range/Units 06:15 WBC (4.8-10.8) X10*3/uL RBC (4.20-5.50) X10*6/uL Hgb (12.0-16.0) g/dl Hct (37.0-47.0) % MCV (80.0-98.0) fL MCH (27.0-33.0) pg MCHC (31.0-35.0) g/dl RDW (11.0-16.0) % Plt Count (160-400) X10*3/uL MPV (9.4-12.3) fL Immature Gran % (Auto) (0.0-0.4) % Neut % (Auto) (45-73) % Lymph % (Auto) (20-40) % [place] % (Auto) (2-11) % Eos % (Auto) (0-4) % Baso % (Auto) (0-2) % Lymph # (Auto) (1.2-4.9) X10*3/uL [place] # (Auto) (0.1-1.2) X10*3/uL Eos # (Auto) (0.0-0.4) X10*3/uL Baso # (Auto) (0.0-0.2) X10*3/uL Abs Immat Gran (auto) (0.00-0.03) X10*3/uL Absolute Neuts (auto) (2.0-8.3) x10*3/uL Absolute Nucleated RBC (0.0-0.012) X10*3/uL Nucleated RBC % (auto) (0.0-0.2) /100WBC PT (9.9-13.0) SEC INR (0.9-1.1) D-Dimer High Sensitivty NG/ML Sodium (135-145) mmol/L Potassium (3.3-5.1) mmol/L Chloride (96-108) mmol/L Carbon Dioxide (22-29) mmol/L Anion Gap (12-20) BUN (9-16) mg/dL Creatinine (0.5-1.4) mg/dL Estim Creat Clear Calc Estimated GFR Random Glucose (60-115) mg/dL Calcium (8.4-10.2) mg/dL Magnesium (1.6-2.6) mg/dL Total Bilirubin (0.0-1.0) mg/dL Direct Bilirubin (0.0-0.5) mg/dL AST (5-31) U/L ALT (0-31) U/L Alkaline Phosphatase (39-117) U/L Troponin I High Sens < 3.5 (<3.5-17.0) ng/L Total Protein (6.5-8.0) g/dL Albumin (3.5-5.0) g/dL Lipase (8-78) U/L COVID-19 (LANCE) (Negative) COVID-19 Clin Com Influenza Type A (MADY) (Negative) Influenza Type B (MADY) (Negative) Influenza A & B Note ECG Data ECG #1: Attestation: I personally reviewed and interpreted this ECG as follows: ECG interpretation date: 12/12/21 ECG interpretation time: 03:19 Interpretation: Rate: 93 Rhythm: NSR [place]: normal Normal P waves. Normal JEREMIAH. Normal QRS complex. ST T wave : normal no SLOAN qTC: normal prior studies: no acute ischemia The study has been interpreted contemporaneously by me. . Discharge Plan Discharge Clinical Impression: Hypomagnesemia, Hyponatremia, Acute dehydration Chest pain Qualifiers: Chest pain type: unspecified Qualified Code(s): R07.9 - Chest pain, unspecified Prescriptions: No Action doxycycline hyclate 100 mg capsule 100 mg PO BID 30 Days Qty: 60 1RF silver sulfadiazine 1 % cream 1 appl topical DAILY 0RF folic acid 1 mg Tablet 1 mg PO DAILY Qty: 90 3RF cyclobenzaprine 10 mg tablet 10 mg PO TID PRN (Reason: muscle spasm) Qty: 14 0RF lidocaine 5 % adhesive patch,medicated 1 patch topical DAILY Qty: 15 0RF Rx Instructions: leave on most painful area for up to 12 hrs pioglitazone 15 mg tablet 1 tab PO DAILY 0RF atorvastatin 40 mg tablet 1 tab PO DAILY 0RF aspirin 81 mg tablet,delayed release (DR/EC) 1 tab PO DAILY 0RF metformin 1,000 mg tablet 1 tab PO BID 0RF lisinopril-hydrochlorothiazide 20-25 mg tablet 1 tab PO DAILY 0RF ezetimibe 10 mg tablet 1 tab PO DAILY 0RF cholecalciferol (vitamin D3) 25 mcg (1,000 unit) tablet 1 tab PO DAILY 0RF Lantus Solostar U-100 Insulin 100 unit/mL (3 mL) insulin pen 40 unit subcut DAILY 0RF clopidogrel [Plavix] 75 mg tablet 75 mg PO DAILY Qty: 90 1RF (DME) lancets [TRUEplus Lancets] 33 gauge misc See Rx Instructions ea topical .MEDSUPPLY Qty: 100 0RF Rx Instructions: As directed (DME) pen needle, diabetic [UltiCare Pen Needle] 31 gauge x 5/16 needle See Rx Instructions ea subcut .MEDSUPPLY Qty: 1200 0RF Rx Instructions: As directed alcohol swabs [Alcohol Prep Pads] Pads, Medicated 1 pad topical TID 0RF (DME) FreeStyle Lite Strips Strip See Rx Instructions ea Not Applicable TID Qty: 10 0RF Rx Instructions: As directed terbinafine HCl 250 mg tablet 250 mg PO DAILY 42 Days Qty: 42 0RF omeprazole 20 mg capsule,delayed release(DR/EC) 20 mg PO DAILY Qty: 30 5RF
[2021-12-12 03:21] LABS: Basophils Percent Auto 0.3 % (0-2); Eosinophils Absolute Auto 0.2 X10*3/uL (0.0-0.4); Eosinophils Percent Auto 1.5 % (0-4); Hematocrit 29.8 % (37.0-47.0); Hemoglobin 9.3 g/dl (12.0-16.0); Imm Gran Abs Auto 0.05 X10*3/uL (0.00-0.03); Imm Gran Pct Auto 0.4 % (0.0-0.4); Lymphocytes Absolute Auto 3.7 X10*3/uL (1.2-4.9); Lymphocytes Percent Auto 27.7 % (20-40); MANUAL DIFF FLAG NO; Mean Corpuscular HGB Conc 31.2 g/dl (31.0-35.0); Mean Corpuscular Hemoglobin 19.6 pg (27.0-33.0); Mean Corpuscular Volume 62.7 fL (80.0-98.0); Mean Platelet Volume 9.2 fL (9.4-12.3); Monocytes Absolute Auto 1.1 X10*3/uL (0.1-1.2); Monocytes Percent Auto 8.2 % (2-11); Neutrophils Absolute Auto 8.2 x10*3/uL (2.0-8.3); Neutrophils Percent Auto 61.9 % (45-73); Platelet Count 423 X10*3/uL (160-400); Red Blood Count 4.75 X10*6/uL (4.20-5.50); Red Cell Distribution Width 17.9 % (11.0-16.0); White Blood Count 13.3 X10*3/uL (4.8-10.8)
[2021-12-12] MEDS: ondansetron HCL 4 MG/2 ML VIAL IVPUSH (03:24)
[2021-12-12] MEDS: Morphine Sulfate 4 MG/ML CARTRIDGE IVPUSH (03:24)
[2021-12-12 03:31] LABS: Prothrombin Time 11.4 SEC (9.9-13.0)
[2021-12-12 03:33] LABS: D Dimer High Sensitivity 471 NG/ML
[2021-12-12 03:36] LABS: COVID-19 Test Negative (Negative); IDNOW Serial# 16C4AD1C; Influenza A Negative (Negative); Influenza B2 Negative (Negative)
[2021-12-12 03:40] LABS: Troponin-I High Sensitivity < 3.5 ng/L (<3.5-17.0)
[2021-12-12 03:53] LABS: Alanine Aminotransferase 34 U/L (0-31); Albumin Level 3.8 g/dL (3.5-5.0); Alkaline Phosphatase 98 U/L (39-117); Anion Gap 16 (12-20); Aspartate Amino Transferase 24 U/L (5-31); Bilirubin Direct < 0.2 mg/dL (0.0-0.5); Bilirubin Total 0.3 mg/dL (0.0-1.0); Blood Urea Nitrogen 40 mg/dL (9-16); Calcium 9.3 mg/dL (8.4-10.2); Carbon Dioxide 22 mmol/L (22-29); Chloride 92 mmol/L (96-108); Creatinine Clr Calc Pharmacy 36.6; Estimated Glomerular Filt Rate 34; Glucose Random 129 mg/dL (60-115); Lipase 38 U/L (8-78); Potassium 4.3 mmol/L (3.3-5.1); Sodium 126 mmol/L (135-145); Total Protein 6.3 g/dL (6.5-8.0)
[2021-12-12] MEDS: Magnesium Sulfate/H2O 2 GM/50 ML PIGGYBACK IV (04:08)
[2021-12-12] MEDS: 0.9 % Sodium Chloride 500 ML IV ×2 (04:09→07:33)
--- NOTE | 2021-12-12 04:11 | PC.NURSE ---
Critical labs of Magnesium of 1.0 and MD aware. Patient given magnesium supplement iv as well as 500 ml of ns due to slightly low Sodium
--- NOTE | 2021-12-12 06:16 | PC.NURSE ---
Patient reports improvements in her pain level and states its resolved
[2021-12-12 06:37] LABS: Troponin-I High Sensitivity < 3.5 ng/L (<3.5-17.0)
--- NOTE | 2021-12-12 08:53 | P.HPHOSP_ITS ---
History of Present Illness Date of Service: 12/12/21 Chief Complaint: left-sided chest pain This is a a 56 yo F with a PMH as outlined below who presented to [facility] ED with complaints of sudden onset left sided chest pain which began the night prior to admission. She reports that the pain woke her up from sleep. She describes it as sharp in nature on the left lateral chest wall with no associated shortness of breath or cough. She denies any fevers or chills. She denies any prior such pain. She reports that her blood pressure when EMS arrived was 190s/100s. She reported feeling anxious during the event. She reports that she was advised to take 4 aspirin by EMS dispatch and that by the time she arrived to the ED, her pain had subsided. In the ED, 2 HS trop-I were negative as was EKG for acute ischemic findings. She was found to be hyponatremic with mild stage 1 LUIS. She has been given 1L IVF and now will be admitted for further work up. A VQ scan has been ordered and pending at the time of admission. Of note, the patient reports also right sided abdominal pain of 1-2 months duration. She reports that this is present constantly and has resulted in a decrease in oral intake. She denies any vomiting or diarrhea. She reports she was to get a U/S today as an outpatient. Review of Systems Review of Systems: negative except HPI [facility] Medical History Arthritis Carpal tunnel syndrome Degenerative joint disease of spine Diabetes HLD (hyperlipidemia) Hypertension Irritable bowel syndrome Leukocytosis Osteomyelitis Osteoporosis Peripheral neuropathy Prolapsed uterus Rectal prolapse Retinopathy Toe ulcer due to DM Family History Maternal Grandmother Diabetes Maternal Grandfather Heart disease Breast cancer Mother HTN (hypertension) Paternal Uncle Thalassemia Surgical History H/O dilation and curettage Social History Household Members: Children Housing: Apartment Are you a primary manager intensive care unit to a significant other at home: No Do you presently have visiting nurse or other home services: No Alcohol intake: never Patient Tobacco Use Status: Never used Tobacco Use of substances other than those prescribed or required for medical reasons: No Advance Directives: No Patient : No service: No Current occupational status: disabled Meds Allergies Allergy/AdvReac Type Severity Reaction Status Date / Time No Known Allergies Allergy Unknown UNKNOWN Verified 11/17/21 12:59 [NO KNOWN ALLERGIES] Active Medications: Current Medications Acetaminophen (Acetaminophen 325 Mg Tablet) 650 mg PO Q6H PRN PRN Reason: Pain, Mild (Pain Scale 1-3) Ondansetron HCl (Ondansetron Hcl 4 Mg/2 Ml Vial) 4 mg IVPUSH Q8H PRN PRN Reason: Nausea and Vomiting Sodium Chloride (0.9 % Sodium Chloride Flush 3 Ml Syringe) 3 ml IVFLUSH [facility] Home Medications Medication Instructions Recorded Confirmed Last Taken Type aspirin 81 mg tablet,delayed 1 tab PO DAILY 07/02/21 12/12/21 07/09/21 History release atorvastatin 40 mg tablet 1 tab PO DAILY 07/02/21 12/12/21 07/09/21 History cholecalciferol (vitamin D3) 25 1 tab PO DAILY 07/02/21 12/12/21 07/09/21 History mcg (1,000 unit) tablet ezetimibe 10 mg tablet 1 tab PO DAILY 07/02/21 12/12/21 07/09/21 History insulin glargine 100 unit/mL (3 40 unit SUBCUT DAILY 07/02/21 12/12/21 07/08/21 History mL) subcutaneous pen (Lantus Solostar U-100 Insulin) lisinopril 20 1 tab PO DAILY 07/02/21 12/12/21 07/09/21 History mg-hydrochlorothiazide 25 mg tablet metformin 1,000 mg tablet 1 tab PO BID 07/02/21 12/12/21 07/09/21 History pioglitazone 15 mg tablet 1 tab PO DAILY 07/02/21 12/12/21 07/09/21 History silver sulfadiazine 1 % topical 1 appl TOPICAL DAILY 07/09/21 10/17/21 07/09/21 History cream alcohol swabs (Alcohol Prep Pads) 1 pad TOPICAL TID 09/18/21 10/09/21 Unknown History blood sugar diagnostic (FreeStyle #10 ea 09/18/21 10/09/21 Unknown History Lite Strips) lancets 33 gauge (TRUEplus Lancets) #100 ea 09/18/21 10/09/21 Unknown History pen needle, diabetic 31 gauge x #1200 ea 09/18/21 10/09/21 Unknown History 11/20 (UltiCare Pen Needle) empagliflozin 25 mg tablet 1 tab PO DAILY 12/12/21 12/12/21 Unknown History (Jardiance) empagliflozin 25 mg tablet 1 tab PO QAM 12/12/21 Unknown History (Jardiance) Physical Exam Vital Signs and Narrative: Vital Signs: Last Vital Signs Temp 98.0 F 12/12/21 08:16 Pulse 85 12/12/21 08:16 Resp 16 12/12/21 08:16 BP 127/57 L 12/12/21 08:16 Pulse Ox 98 12/12/21 08:16 BMI result Body Mass Index 33.7 Const: Other: Constitutional - Awake and Alert, No apparent distress Eyes - PERRLA, EOMI Cardiovascular - S1S2, RRR, No edema Respiratory - Normal lung expansion, Normal respiratory effort, No respiratory distress, CTA bilaterally Gastrointestinal - NT / ND; +BS; No rebound or guarding - No CVA tenderness Extremities - no calf tenderness bilaterally, no swelling Musculoskeletal - Normal inspection, normal ROM Skin - Warm/Dry Neurological - Alert & oriented x3, No focal deficit Psychological - Appropriate affect Results Labs CBC and Chem 7: 12/12/21 03:13 12/12/21 03:13 Labs: Laboratory Results - last 24 hr 12/12/21 12/12/21 12/12/21 03:12 03:12 03:13 MCV 62.7 L MCH 19.6 L MCHC 31.2 RDW 17.9 H Plt Count 423 H MPV 9.2 L Immature Gran % (Auto) 0.4 Neut % (Auto) 61.9 Lymph % (Auto) 27.7 [place] % (Auto) 8.2 Eos % (Auto) 1.5 Baso % (Auto) 0.3 Lymph # (Auto) 3.7 [place] # (Auto) 1.1 Eos # (Auto) 0.2 Baso # (Auto) 0.0 Abs Immat Gran (auto) 0.05 H Absolute Neuts (auto) 8.2 Absolute Nucleated RBC 0.000 Nucleated RBC % (auto) 0.0 PT INR D-Dimer High Sensitivty Anion Gap Estim Creat Clear Calc Estimated GFR Random Glucose Calcium Magnesium Total Bilirubin Direct Bilirubin AST ALT Alkaline Phosphatase Troponin I High Sens Total Protein Albumin Lipase COVID-19 (LANCE) Negative COVID-19 Clin Com See Note Influenza Type A (MADY) Negative Influenza Type B (MADY) Negative Influenza A & B Note See Note 12/12/21 12/12/21 12/12/21 03:13 03:13 03:13 MCV MCH MCHC RDW Plt Count MPV Immature Gran % (Auto) Neut % (Auto) Lymph % (Auto) [place] % (Auto) Eos % (Auto) Baso % (Auto) Lymph # (Auto) [place] # (Auto) Eos # (Auto) Baso # (Auto) Abs Immat Gran (auto) Absolute Neuts (auto) Absolute Nucleated RBC Nucleated RBC % (auto) PT 11.4 INR 1.0 D-Dimer High Sensitivty 471 Anion Gap 16 Estim Creat Clear Calc 36.6 Estimated GFR 34 Random Glucose 129 H Calcium 9.3 D Magnesium 1.0 L* Total Bilirubin 0.3 Direct Bilirubin < 0.2 AST 24 ALT 34 H Alkaline Phosphatase 98 Troponin I High Sens < 3.5 Total Protein 6.3 L Albumin 3.8 Lipase 38 COVID-19 (LANCE) COVID-19 Clin Com Influenza Type A (MADY) Influenza Type B (MADY) Influenza A & B Note 12/12/21 06:15 MCV MCH MCHC RDW Plt Count MPV Immature Gran % (Auto) Neut % (Auto) Lymph % (Auto) [place] % (Auto) Eos % (Auto) Baso % (Auto) Lymph # (Auto) [place] # (Auto) Eos # (Auto) Baso # (Auto) Abs Immat Gran (auto) Absolute Neuts (auto) Absolute Nucleated RBC Nucleated RBC % (auto) PT INR D-Dimer High Sensitivty Anion Gap Estim Creat Clear Calc Estimated GFR Random Glucose Calcium Magnesium Total Bilirubin Direct Bilirubin AST ALT Alkaline Phosphatase Troponin I High Sens < 3.5 Total Protein Albumin Lipase COVID-19 (LANCE) COVID-19 Clin Com Influenza Type A (MADY) Influenza Type B (MADY) Influenza A & B Note Imaging Radiologist's Impressions: Impressions Chest X-Ray 12/12/21 03:50 IMPRESSION: Unremarkable examination. Assessment and Plan (1) Acute dehydration: Status: Acute Plan This is a 56 yo F who presented to the hospital with complaints of left sided chest pain of sudden onset. This has now resolved but work up has revealed hypo natremia and mild, stage 1 LUIS. She will be admitted for further work up and treatment. 1. Acute hyponatremia and LUIS suspected secondary to poor oral intake induced by right-sided abdominal pain. Given 1L IVF, repeat SNa around noon and reassess fluids 2. Left-sided chest pain unlikely cardaic in nature as HS trop-I negative x 2 and EKG is non-ischemic VQ scan pending 3. Right-sided abdominal pain may be playing a role in her hypoNa will check ultrasound 4. PAD - s/p angioplasty L anterior tibial artery continue DAPT + statin 5. DM hold orals, use basal+bolus Full Code DVT pptx, low risk -- early ambulation Quality Stroke Does the patient have a stroke diagnosis?: No VTE Prior VTE?: No VTE Risk Level:: Medical - low VTE Device Contraindication: Treatment Not Indicated VTE Drug Contraindication: Treatment Not Indicated
--- NOTE | 2021-12-12 09:20 | PHA.MEDREC ---
Pharmacy Consult ? Medication Reconciliation Pharmacy has reviewed the medication reconciliation completed by Nkechi. I removed unconfirmed medications patient no longer taking at home. Nazanin Rudolph, PharmD
--- NOTE | 2021-12-12 09:25 | PC.NURSE ---
pt off unit to nuc med
--- NOTE | 2021-12-12 09:59 | PC.NURSE ---
alicia Ladd for report.
--- NOTE | 2021-12-12 10:20 | PC.NURSE ---
Pt is NPO for testing. Hold PO meds and breakfast at this time. Pending imaging and transfer to in. assigned room
--- NOTE | 2021-12-12 10:30 | PC.NURSE ---
ultrasound at bedside
[2021-12-12 10:43] LABS: Anion Gap 13 (12-20); Blood Urea Nitrogen 38 mg/dL (9-16); Carbon Dioxide 25 mmol/L (22-29); Chloride 96 mmol/L (96-108); Creatinine Clr Calc Pharmacy 38.6; Estimated Glomerular Filt Rate 37; Glucose Random 128 mg/dL (60-115); Magnesium 1.7 mg/dL (1.6-2.6); Potassium 4.3 mmol/L (3.3-5.1); Sodium 130 mmol/L (135-145)
[2021-12-12] MEDS: Clopidogrel Bisulfate 75 MG TABLET PO (11:02)
[2021-12-12] MEDS: Atorvastatin Calcium 40 MG TABLET PO (11:03)
[2021-12-12] MEDS: Aspirin Enteric Coated 81 MG TABLET.DR PO (11:03)
[2021-12-12] MEDS: Insulin Glargine,Hum.rec.anlog 100 UNIT/ML 10 ML VIAL 20 UNIT SUBCUT (11:03)
[2021-12-12] MEDS: Omeprazole 20 MG CAPSULE.DR PO (11:03)
[2021-12-12 11:06] LABS: Glucose, Whole Blood 117 mg/dL (60-115)
--- NOTE | 2021-12-12 11:10 | PC.NURSE ---
attempted to call floor again, RN states that she will call back. This RN informed audio visual secretary that this RN attempted to call report 1.5 hours ago. Pt was not provided with doxy, was not written in MAR. Will need doxy.
[2021-12-12 11:50] LABS: Glucose, Whole Blood 168 mg/dL (60-115)
[2021-12-12 16:01] LABS: Glucose, Whole Blood 160 mg/dL (60-115)
[2021-12-12] MEDS: Insulin Lispro 100 UNIT/ML 3 ML VIAL SUBCUT (17:29)
[2021-12-12] MEDS: 0.9 % Sodium Chloride Flush 3 ML SYRINGE IVFLUSH (17:30)
[2021-12-12] MEDS: 0.9 % Sodium Chloride 1,000 ML 50 ML IVCONT (17:41)
[2021-12-12 20:18] LABS: Glucose, Whole Blood 149 mg/dL (60-115)
[2021-12-12] MEDS: Acetaminophen 325 MG TABLET 650 MG PO (20:49)
[2021-12-13 03:33] VITALS: BP 118/58; PULSE 78; RESP 20; TEMP 37.1; O2SAT 98
[2021-12-13] MEDS: Omeprazole 20 MG CAPSULE.DR PO (06:31)
[2021-12-13 07:07] LABS: Anion Gap 13 (12-20); Blood Urea Nitrogen 36 mg/dL (9-16); Calcium 9.3 mg/dL (8.4-10.2); Carbon Dioxide 26 mmol/L (22-29); Chloride 99 mmol/L (96-108); Creatinine Clr Calc Pharmacy 57.4; Estimated Glomerular Filt Rate 58; Glucose Random 155 mg/dL (60-115); Potassium 4.5 mmol/L (3.3-5.1); Sodium 133 mmol/L (135-145)
[2021-12-13 07:14] LABS: Glucose, Whole Blood 238 mg/dL (60-115)
[2021-12-13 07:28] VITALS: BP 126/70; PULSE 91; RESP 18; TEMP 36.5; O2SAT 99
[2021-12-13] MEDS: Clopidogrel Bisulfate 75 MG TABLET PO (09:06)
[2021-12-13] MEDS: Folic Acid 1 MG TABLET PO (09:07)
[2021-12-13] MEDS: Ezetimibe 10 MG TABLET PO (09:07)
[2021-12-13] MEDS: Atorvastatin Calcium 40 MG TABLET PO (09:08)
[2021-12-13] MEDS: Cholecalciferol (Vitamin D3) 25 MCG TABLET PO (09:08)
[2021-12-13] MEDS: Insulin Glargine,Hum.rec.anlog 100 UNIT/ML 10 ML VIAL 20 UNIT SUBCUT (09:10)
[2021-12-13] MEDS: Insulin Lispro 100 UNIT/ML 3 ML VIAL SUBCUT (09:10)
[2021-12-13] MEDS: Aspirin Enteric Coated 81 MG TABLET.DR PO (09:10)
[2021-12-13] MEDS: 0.9 % Sodium Chloride Flush 3 ML SYRINGE IVFLUSH (09:11)
--- NOTE | 2021-12-13 09:45 | MHC.CM.PN ---
met with pt who lives alone pt has a supportive family she had no services prior to admisison hopes shefali be dcd today and does not feel she will need servceis when dcd dc plan home no servceis
--- NOTE | 2021-12-13 10:06 | P.DS_ITS ---
DS: Providers Provider Date of Service: 12/13/21 Date of admission: 12/12/21 08:49 Primary care physician: TAMY Ram DS: Diagnosis Discharge Diagnosis (1) Acute dehydration: Status: Acute (2) LUIS (acute kidney injury): Status: Acute (3) Chest pain: Status: Acute (4) Hypomagnesemia: Status: Acute (5) Hyponatremia: Status: Acute (6) Biliary colic: Status: Acute DS: Summary Hospital Course Hospital Course: HPI From admission H&P: 'Chief Complaint: left-sided chest pain This is a a 56 yo F with a PMH as outlined below who [place] [facility] with complaints of sudden onset left sided chest pain which began the night prior to admission. She reports that the pain woke her up from sleep. She describes it as sharp in nature on the left lateral chest wall with no associated shortness of breath or cough. She denies any fevers or chills. She denies any prior such pain. She reports that her blood pressure when EMS arrived was 190s/100s. She reported feeling anxious during the event. She reports that she was advised to take 4 aspirin by EMS dispatch and that by the time she arrived to the ED, her pain had subsided. In the ED, 2 HS trop-I were negative as was EKG for acute ischemic findings. She was found to be hyponatremic with mild stage 1 LUIS. She has been given 1L IVF and now will be admitted for further work up. A VQ scan has been ordered and pending at the time of admission. Of note, the patient reports also right sided abdominal pain of 1-2 months duration. She reports that this is present constantly and has resulted in a decrease in oral intake. She denies any vomiting or diarrhea. She reports she was to get a U/S today as an outpatient. Hospital Course: Patient was treated with gentle IVF and serial monitoring of her SNa / renal function. She improved with IVF alone and is now stable enough for discharge. Her presenting chest pain resolved. ACS/PE were ruled out. For her LUIS - obstruction was ruled out. For her chronic and intermittent right sided abdominal pain -a u/s of the adb revealed gall stones and sludge. Given that she has no active RUQ pain and no clinical/biochemical evidence to suggest acute cholecysitis, inpatient surgical evaluation has been deferred and rather she has been given a referal to the general surgery clinic. She is requesting discharge and will be discharge home with close f/u. She can resume her lisinopril but her hctz has been held in light of hyponatremia. Time Spent with Patient Time attestation: Total time spent providing and/or coordinating discharge services: Discharge coordination time: Less than 30 minutes Quality: Safe Use of Opioids Does Pt have an Active Cancer Diagnosis on the Problem List?: No Quality: Stroke Does the patient have a stroke diagnosis?: No Physical Exam Vital Signs: Vital Signs: Last Vital Signs Temp 97.7 F 12/13/21 07:28 Pulse 91 12/13/21 07:28 Resp 18 12/13/21 07:28 BP 126/70 12/13/21 07:28 Pulse Ox 99 12/13/21 07:28 O2 Del Method 12/13/21 07:28 BMI result Body Mass Index 33.7 Const: Other: General - no acute distress, appears comfortable Cardiovascular - regular rate and rhythm, S1-S2 Lungs - normal respiratory effort, clear to auscultation bilaterally, no wheezing Abdomen - soft, nontender, no rebound or guarding Extremities - no edema bilaterally Neuro - awake and alert, no focal deficits DS: Data Data Completed and Pending Completed studies during hospitalization [Text1]: Procedures Insertion of Infusion Device into Superior Vena Cava, Percutaneous Approach (07/09/21) Labs on day of discharge: Laboratory Results - last 24 hr 12/12/21 12/12/21 12/12/21 10:18 10:56 11:42 Sodium 130 L Potassium 4.3 Chloride 96 Carbon Dioxide 25 Anion Gap 13 BUN 38 H Creatinine 1.47 H Estim Creat Clear Calc 38.6 Estimated GFR 37 POC Glucose 117 H 168 H Random Glucose 128 H Calcium 9.0 Magnesium 1.7 12/12/21 12/12/21 12/13/21 15:57 20:04 04:20 Sodium 133 L Potassium 4.5 Chloride 99 Carbon Dioxide 26 Anion Gap 13 BUN 36 H Creatinine 0.99 Estim Creat Clear Calc 57.4 Estimated GFR 58 POC Glucose 160 H 149 H Random Glucose 155 H Calcium 9.3 Magnesium 12/13/21 07:10 Sodium Potassium Chloride Carbon Dioxide Anion Gap BUN Creatinine Estim Creat Clear Calc Estimated GFR POC Glucose 238 H Random Glucose Calcium Magnesium Discharge Plan Discharge Patient Disposition: Home, Self-Care Discharge Diagnosis: LUIS, dehydration, Gall stones Referrals: Chucky Amos MD [Physician] - 2 Weeks (Call office for follow up) Rosalind Cardoso FNP [Primary Care Provider] - 1 Week Discharge Medications: New lisinopril 20 mg tablet 20 mg PO DAILY Qty: 90 0RF Continued doxycycline hyclate 100 mg capsule 100 mg PO BID 30 Days Qty: 60 1RF folic acid 1 mg Tablet 1 mg PO DAILY Qty: 90 3RF cyclobenzaprine 10 mg tablet 10 mg PO TID PRN (Reason: muscle spasm) Qty: 14 0RF lidocaine 5 % adhesive patch,medicated 1 patch topical DAILY Qty: 15 0RF Rx Instructions: leave on most painful area for up to 12 hrs Jardiance 25 mg tablet 1 tab PO DAILY pioglitazone 15 mg tablet 1 tab PO DAILY atorvastatin 40 mg tablet 1 tab PO DAILY aspirin 81 mg tablet,delayed release (DR/EC) 1 tab PO DAILY metformin 1,000 mg tablet 1 tab PO BID ezetimibe 10 mg tablet 1 tab PO DAILY cholecalciferol (vitamin D3) 25 mcg (1,000 unit) tablet 1 tab PO DAILY insulin glargine [Lantus Solostar U-100 Insulin] 100 unit/mL (3 mL) insulin pen 40 unit subcut DAILY clopidogrel [Plavix] 75 mg tablet 75 mg PO DAILY Qty: 90 1RF (DME) lancets [TRUEplus Lancets] 33 gauge misc See Rx Instructions topical .MEDSUPPLY Qty: 100 Rx Instructions: As directed (DME) pen needle, diabetic [UltiCare Pen Needle] 31 gauge x 5/16 needle See Rx Instructions subcut .MEDSUPPLY Qty: 1200 Rx Instructions: As directed (DME) FreeStyle Lite Strips Strip See Rx Instructions Not Applicable TID Qty: 10 Rx Instructions: As directed omeprazole 20 mg capsule,delayed release(DR/EC) 20 mg PO DAILY Qty: 30 5RF Discontinued lisinopril-hydrochlorothiazide 20-25 mg tablet 1 tab PO DAILY Discharge Orders: Discharge Order (Routine); Ordered 12/13/21 Ordered By: Bertram Nava Diet: low fat, low cholesterol Activity on Discharge: As tolerated Stand Alone Forms: Patient Portal Discharge page Care Plan Goals: To stay healthy and out of the hospital. Health Concerns: Gallstones and right-sided abdominal pain LUIS and dehydration Plan of Treatment: Gallstones and right-sided abdominal pain - [place] [facility] [place] [place] LUIS and dehydration -- drink plenty of fluids, do not take hydrochlorothiazide Assessment: see discharge summary
[2021-12-13 10:18] LABS: Magnesium 1.5 mg/dL (1.6-2.6)
== END 2021-12-13 11:24 | disposition home or self-care (01) ==
LOC: HO.ED 08:42 → HO.EDOVER 09:12 → HO.IMC 09:53
PROVIDERS: Student in an Organized Health Care Education/Training Program; Admitting Provider Family Medicine; Emergency Provider Emergency Medicine; PCP Registered Nurse; Visit Provider Family Medicine
DX: E86.0 Dehydration (principal); N17.9 Acute kidney failure, unspecified; R07.9 Chest pain, unspecified; E83.42 Hypomagnesemia; E87.1 Hypo-osmolality and hyponatremia; R10.11 Right upper quadrant pain; K80.70 Calculus of gallbladder and bile duct without cholecystitis without obstruction; E11.65 Type 2 diabetes mellitus with hyperglycemia; E11.42 Type 2 diabetes mellitus with diabetic polyneuropathy; E11.319 Type 2 diabetes mellitus with unspecified diabetic retinopathy without macular edema; E11.69 Type 2 diabetes mellitus with other specified complication; M86.9 Osteomyelitis, unspecified; E11.621 Type 2 diabetes mellitus with foot ulcer; L97.509 Non-pressure chronic ulcer of other part of unspecified foot with unspecified severity; N18.1 Chronic kidney disease, stage 1; E78.5 Hyperlipidemia, unspecified; M81.0 Age-related osteoporosis without current pathological fracture; F41.9 Anxiety disorder, unspecified; Z20.822 Contact with and (suspected) exposure to COVID-19; Z79.4 Long term (current) use of insulin; Z79.899 Other long term (current) drug therapy
CPT/HCPCS: 36415; 71045; 76700; 78580; 80048; 80076; 82947; 83690; 83735; 84484; 85025; 85379; 85610; 87502; 87635; 93005; 96361; 96365; 96366; 96375; 96376; 99219; 99285; A9540; J2270; J2405; J3475

== ENCOUNTER → 2021-12-19 10:31 | Outpatient (BNVA) | payer OTHER, SELFPAY | PROVIDERS: PCP Registered Nurse; Referring Provider Registered Nurse; Visit Provider Physician Assistant | DX: R10.9 Unspecified abdominal pain (principal); K21.9 Gastro-esophageal reflux disease without esophagitis; M54.9 Dorsalgia, unspecified | CPT/HCPCS: 99212 ==

== ENCOUNTER → 2021-12-22 08:37 | Outpatient (BNVA) | payer OTHER, SELFPAY | PROVIDERS: PCP Registered Nurse; Visit Provider Surgery | DX: R10.9 Unspecified abdominal pain (principal); K80.20 Calculus of gallbladder without cholecystitis without obstruction; K80.50 Calculus of bile duct without cholangitis or cholecystitis without obstruction; E11.621 Type 2 diabetes mellitus with foot ulcer; L97.509 Non-pressure chronic ulcer of other part of unspecified foot with unspecified severity; E11.22 Type 2 diabetes mellitus with diabetic chronic kidney disease; N18.9 Chronic kidney disease, unspecified; N17.9 Acute kidney failure, unspecified; D63.1 Anemia in chronic kidney disease; R13.10 Dysphagia, unspecified; K21.9 Gastro-esophageal reflux disease without esophagitis; I73.9 Peripheral vascular disease, unspecified; M86.9 Osteomyelitis, unspecified; D72.829 Elevated white blood cell count, unspecified; L03.90 Cellulitis, unspecified; D50.9 Iron deficiency anemia, unspecified; Z79.01 Long term (current) use of anticoagulants | CPT/HCPCS: 99202 ==

== ENCOUNTER 2022-01-02 13:35 | Outpatient (RCR) | payer OTHER, SELFPAY | END 2022-07-23 14:32 | disposition home or self-care (01) | LOC: HO.WCC 13:35 | PROVIDERS: PCP Registered Nurse; Visit Provider Physician Assistant | DX: E11.621 Type 2 diabetes mellitus with foot ulcer (principal); L97.522 Non-pressure chronic ulcer of other part of left foot with fat layer exposed; E11.610 Type 2 diabetes mellitus with diabetic neuropathic arthropathy; E11.51 Type 2 diabetes mellitus with diabetic peripheral angiopathy without gangrene; E11.42 Type 2 diabetes mellitus with diabetic polyneuropathy; E11.22 Type 2 diabetes mellitus with diabetic chronic kidney disease; I12.9 Hypertensive chronic kidney disease with stage 1 through stage 4 chronic kidney disease, or unspecified chronic kidney disease; N18.30 Chronic kidney disease, stage 3 unspecified; Z79.899 Other long term (current) drug therapy | CPT/HCPCS: 11042; 97597; 99212; 99213; 99214; 99215 ==

== ENCOUNTER → 2022-01-15 14:25 | Outpatient (BNVA) | payer OTHER, SELFPAY | PROVIDERS: PCP Registered Nurse; Visit Provider Surgery | DX: R92.8 Other abnormal and inconclusive findings on diagnostic imaging of breast (principal) | CPT/HCPCS: 99202 ==

== ENCOUNTER 2022-01-16 10:05 | Outpatient (REF) | payer OTHER, SELFPAY ==
--- NOTE | ~2022-01-16 | US_ITS ---
EXAMINATION: MM DIAGNOSTIC DIGITAL BREAST TOMOSYNTHESIS, RIGHT US DIAGNOSTIC ULTRASOUND BREAST, RIGHT CLINICAL INFORMATION: Focal asymmetric density upper outer right breast with imaging features suggesting focal fat necrosis. Patient scheduled for ultrasound-guided biopsy. TC score 7%. COMPARISON: Mammography: 11/06/2021, 10/31/2021, 12/06/2015; ultrasound right breast 11/06/2021. TECHNIQUE: Targeted ultrasound to identify site for tissue sampling is initially performed using grayscale imaging and color Doppler without and with harmonics. Subsequently, digital breast tomosynthesis is performed in both the craniocaudal and mediolateral oblique views along with computer-aided detection (CAD). Synthesized 2D images are generated from the tomosynthesis. FINDINGS: Targeted Ultrasound, Right: The lesion for tissue sampling noted on prior ultrasound 11/06/2021 is not seen with certainty. Therefore, mammogram right breast is performed. Mammography, Right: There are scattered areas of fibroglandular density (ACR BI-RADS breast composition Category b). The focal asymmetric density upper outer quadrant is moderately decreased in size and decreased in attenuation. This is consistent with the probable benign suspicion, likely resolving fat necrosis as previously suspected. There is a chronic thickened node right axilla short axis I.3 cm. Results are discussed with the patient at time of visit. Given the results pending finding on mammography and lateral ultrasound correlate, the schedule biopsy procedure was aborted. Management plan is for six-month follow-up right mammography to continue surveillance of probable resolving fat necrosis. At time of appointment, patient noted recent pain contralateral left breast. On clinical exam, there is ecchymosis in the lateral breast, consistent with recent injury. Patient may follow up with surgeon as needed. Results and recommendation called to emergency medical service manager (Kelly) for Dr. Amos on 01/16/2022. US/US breast RT limited IMPRESSION: -Lesion for ultrasound-guided sampling not clearly visualized with ultrasound. -Right mammography confirms resolving lesion, likely related to fat necrosis or other bruising previously suspected. -Biopsy not performed. ASSESSMENT: BI-RADS 3: Probably Benign RECOMMENDATION: Diagnostic right mammography in 6 months. This patient's information was entered into a reminder system with a target due date for their next mammogram.
== END 2022-01-16 10:06 | disposition home or self-care (01) ==
LOC: HO.MAMMO 10:05
PROVIDERS: Visit Provider Surgery
DX: R92.8 Other abnormal and inconclusive findings on diagnostic imaging of breast (principal)
CPT/HCPCS: 76642; 77061; 77065

== ENCOUNTER 2022-01-21 13:39 | Emergency (ER) | payer OTHER, SELFPAY ==
--- NOTE | ~2022-01-21 | XR_ITS ---
EXAMINATION: XR RIBS, LEFT CLINICAL INFORMATION: Fall with rib pain COMPARISON: Chest x-ray 12/12/2021 TECHNIQUE: 3 views of the left ribs were obtained. FINDINGS: Lungs are clear. No consolidation, pneumothorax, or pleural effusion. The cardiomediastinal silhouette and pulmonary vasculature are normal. Subtle linear lucency through the anterolateral left sixth rib, possibly a nondisplaced fracture. Correlate with pain at this location on exam. No additional fracture identified. XR/XR ribs LT min 3V w CXR1V IMPRESSION: 1. Possible nondisplaced fracture of the anterolateral left sixth rib. Correlate with pain at this location. 2. No acute pulmonary process.
--- NOTE | ~2022-01-21 | CT_ITS ---
EXAMINATION: CT CHEST WITHOUT CONTRAST CLINICAL INFORMATION: Left rib pain COMPARISON: Radiographs from earlier today TECHNIQUE: Multidetector volumetric CT imaging of the chest was done. Axial MIP volume rendering provided. Sagittal and coronal reformatted images were obtained. This CT examination was performed using dose optimization techniques as appropriate, variously including the following: *Automated exposure control *Adjustment of mA and/or kV according to patient size (this includes techniques or standardized protocols for targeted exams where dose is matched to indication/reason for exam; i.e. extremities or head) *Use of iterative reconstruction technique DLP: 278 mGy-cm FINDINGS: LUNGS: No regions of consolidation bilaterally. A few scattered lung nodules are noted, most prominently in the left lower lobe such as measuring 4 mm on image 346/496 and in the subpleural right middle lobe measuring 4 mm on image 302. MEDIASTINUM: The visualized thyroid gland is unremarkable. There are subcentimeter mediastinal lymph nodes within the range of normal variation. Cardiac size is within normal limits; no pericardial effusion. Coronary artery calcifications are present. PLEURA: There is no pleural effusion. No pleural mass or thickening. AXILLA: No lymphadenopathy. UPPER ABDOMEN: Partially visualized cholelithiasis. Partially visualized thickened left adrenal gland with density favoring a lipid rich adenoma. OSSEOUS STRUCTURES: There is subtle contour deformity of the anterolateral left sixth rib, suspicious for nondisplaced fracture in the setting of trauma. Scattered endplate osteophytes are noted in the spine. CT/CT chest wo con IMPRESSION: 1. Subtle contour deformity of the anterolateral left sixth rib, suspicious for nondisplaced fracture. 2. Coronary artery calcifications. Correlation with cardiac risk factors is recommended. 3. Few bilateral lung nodules measuring up to 4 mm. According to the UPDATED 2017 Fleischner Society recommendations, the advised follow-up imaging for solid nodules < 6 mm is: LOW RISK PATIENT: No routine follow-up. HIGH RISK PATIENT: Optional CT at 12 months.
--- NOTE | ~2022-01-21 | XR_ITS ---
EXAMINATION: XR FOOT, RIGHT CLINICAL INFORMATION: Necrotic right foot. COMPARISON: Radiograph of the right foot dated from 07/02/2021. TECHNIQUE: AP, lateral, and oblique views of the right foot. FINDINGS: There is diffuse soft tissue swelling with scattered vascular calcifications. No evidence of unexpected radiopaque foreign bodies. No cortical disruption or erosive changes to suspect osteomyelitis. No acute fractures or malalignment. XR/XR foot RT min 3V IMPRESSION: No radiographic evidence of osteomyelitis, however early osteomyelitis can be radiographically occult and if clinically pertinent correlation with MRI could be obtained to further assess for osteomyelitis. Significant diffuse soft tissue swelling.
[2022-01-21 13:55] VITALS: BP 123/47; PULSE 104; RESP 18; TEMP 36.6; O2SAT 98; BMI 32.8
--- NOTE | 2022-01-21 14:07 | ECG_ITS ---
Test Reason : cp Blood Pressure : / mmHG Vent. Rate : 100 BPM Atrial Rate : 100 BPM P-R Int : 134 ms QRS Dur : 078 ms QT Int : 326 ms P-R-T Axes : 066 070 066 degrees QTc Int : 420 ms Normal sinus rhythm Normal ECG When compared with ECG of 12-DEC-2021 02:56, No significant change was found Referred By: Generic ED Physician Electronically Signed By:Fede Martínez
[2022-01-21 14:45] LABS: MANUAL DIFF FLAG NO
[2022-01-21 14:46] LABS: Basophils Absolute Auto 0.1 X10*3/uL (0.0-0.2); Basophils Percent Auto 0.4 % (0-2); Eosinophils Absolute Auto 0.2 X10*3/uL (0.0-0.4); Eosinophils Percent Auto 1.7 % (0-4); Hematocrit 27.8 % (37.0-47.0); Hemoglobin 8.6 g/dl (12.0-16.0); Imm Gran Abs Auto 0.05 X10*3/uL (0.00-0.03); Imm Gran Pct Auto 0.4 % (0.0-0.4); Lymphocytes Absolute Auto 1.9 X10*3/uL (1.2-4.9); Lymphocytes Percent Auto 13.3 % (20-40); Mean Corpuscular HGB Conc 30.9 g/dl (31.0-35.0); Mean Corpuscular Hemoglobin 19.5 pg (27.0-33.0); Mean Platelet Volume 8.9 fL (9.4-12.3); Monocytes Absolute Auto 1.2 X10*3/uL (0.1-1.2); Monocytes Percent Auto 8.8 % (2-11); NRBC Pct Auto 0.4 /100WBC (0.0-0.2); Neutrophils Absolute Auto 10.5 x10*3/uL (2.0-8.3); Neutrophils Percent Auto 75.4 % (45-73); Platelet Count 518 X10*3/uL (160-400); Red Blood Count 4.42 X10*6/uL (4.20-5.50); Red Cell Distribution Width 19.3 % (11.0-16.0); White Blood Count 13.9 X10*3/uL (4.8-10.8)
[2022-01-21 14:55] LABS: Mean Corpuscular Volume 62.9 fL (80.0-98.0)
[2022-01-21 15:09] LABS: Anion Gap 14 (12-20); Blood Urea Nitrogen 16 mg/dL (9-16); Calcium 9.4 mg/dL (8.4-10.2); Carbon Dioxide 25 mmol/L (22-29); Chloride 100 mmol/L (96-108); Creatinine Clr Calc Pharmacy 51.3; Estimated Glomerular Filt Rate 52; Glucose Random 201 mg/dL (60-115); Sodium 135 mmol/L (135-145)
[2022-01-21 15:14] LABS: Troponin-I High Sensitivity < 3.5 ng/L (<3.5-17.0)
--- NOTE | 2022-01-21 21:49 | ED_ITS ---
HPI - General Adult General Chief complaint: Wound/Laceration Stated complaint: Wounds on both feet/diabetic Time Seen by Provider: 01/21/22 21:48 Source: patient Mode of arrival: ambulatory Limitations: no limitations History of Present Illness HPI narrative: 48-year-old female with past medical history significant for anticoagulants, diabetes, CKD, osteomyelitis, and foot ulcers presents today after falling in the shower, she reports she was in the shower when she noticed blood coming from her right foot she bent over to look where the blood was coming from and fell hitting the left side of her chest in the front . She reports she did not hit her head and that she did not lose consciousness during this fall from standing height in the shower. She reports a new wound on the bottom of her right foot and now has pain with inspiration on the left side of her chest. She reports the pain is worse when she takes a deep breath or has to cough. She is unsure how the wound on the right foot started, she reports that for months now she has had decreased sensation to bilateral lower extremities, wound care and her PCP are both aware of this. She tells me to the best of her knowledge she did not know she had of wound on the bottom of the right foot. She reports that she goes to [facility] for her left foot and her earliest appointment was Saturday, the instructed her to come to the emergency room for care. She deniesheadache, fever, nausea, vomiting, disequilibrium, shortness of breath, chest pal pitations, chest tightness, chest pain. Related Data Home Medications Medication Instructions Recorded Confirmed aspirin 81 mg tablet,delayed 1 tab PO DAILY 07/02/21 01/16/22 release atorvastatin 40 mg tablet 1 tab PO DAILY 07/02/21 01/16/22 cholecalciferol (vitamin D3) 25 1 tab PO DAILY 07/02/21 01/16/22 mcg (1,000 unit) tablet ezetimibe 10 mg tablet 1 tab PO DAILY 07/02/21 01/16/22 insulin glargine 100 unit/mL (3 40 unit subcut DAILY 07/02/21 01/16/22 mL) subcutaneous pen (Lantus Solostar U-100 Insulin) metformin 1,000 mg tablet 1 tab PO BID 07/02/21 01/16/22 pioglitazone 15 mg tablet 1 tab PO DAILY 07/02/21 01/16/22 blood sugar diagnostic (FreeStyle #10 ea 09/18/21 01/16/22 Lite Strips) lancets 33 gauge (TRUEplus Lancets) #100 ea 09/18/21 01/16/22 pen needle, diabetic 31 gauge x #1,200 ea 09/18/21 01/16/22 5/16 (UltiCare Pen Needle) empagliflozin 25 mg tablet 1 tab PO DAILY 12/12/21 01/16/22 (Jardiance) acetaminophen 500 mg tablet 500 mg PO DAILY PRN Pain 12/19/21 01/16/22 bacitracin 500 unit/gram topical 1 appl topical DAILY 12/19/21 01/16/22 ointment pantoprazole 40 mg tablet,delayed 40 mg PO DAILY 12/19/21 01/16/22 release alcohol swabs (Alcohol Prep Pads) 1 pad topical TID 01/15/22 01/16/22 silver sulfadiazine 1 % topical 1 appl topical DAILY 01/15/22 01/16/22 cream Previous Rx's Medication Instructions Recorded folic acid 1 mg tablet 1 mg PO DAILY #90 tabs 08/08/21 clopidogrel 75 mg tablet (Plavix) 75 mg PO DAILY #90 tabs 10/11/21 cyclobenzaprine 10 mg tablet 10 mg PO TID PRN muscle spasm #14 10/31/21 tabs lidocaine 5 % topical patch 1 patch topical DAILY pain #15 ea 10/31/21 lisinopril 20 mg tablet 20 mg PO DAILY #90 tabs 12/13/21 docusate sodium 100 mg capsule 200 mg PO BEDTIME #60 caps 12/19/21 (Colace) doxycycline hyclate 100 mg capsule 100 mg PO BID 30 days #60 caps 01/05/22 cephalexin 500 mg tablet 500 mg PO Q6H 10 days #40 tabs 01/22/22 doxycycline hyclate 100 mg capsule 100 mg PO BID 10 days #20 caps 01/22/22 Allergies Allergy/AdvReac Type Severity Reaction Status Date / Time No Known Allergies Allergy Unknown UNKNOWN Verified 01/16/22 11:38 [NO KNOWN ALLERGIES] Review of Systems Review of Systems: Constitutional : No Weight loss, No Fever, No Chills, No Fatigue, No Malaise ENT/Mouth : No sore throat, No Rhinorrhea Eyes: No Eye Pain, No Swelling, No Redness Cardiovascular : + Left sided chest pain on inspiration/cough, No SOB, No Dyspnea on Exertion, No Orthopnea, No Edema, No Palpitations Respiratory : + Cough, No Sputum, No Wheezing Gastrointestinal : No Nausea, No Vomiting, No Diarrhea, No Constipation, No abdominal Pain, No Hematochezia, No Melena Genitourinary : No Dysuria, No Urinary Frequency, No Hematuria, Musculoskeletal : No joint pain, No Myalgias, No Joint Swelling Skin : + Lesions, +Bleeding from R-Foot Neuro : No Weakness, No Numbness, No Dizziness, No Headache Psych : No Anxiety/Panic, No Depression Heme/Lymph: No Bruising, No Bleeding,No Lymphadenopathy Endocrine : No Polyuria, No Polydipsia All other systems reviewed and are negative Yes all other systems are reviewed and are negative [facility], LAT[facility] Past Medical History Attestation statement: The following information was validated with the patient. Source: old records reviewed and nursing notes reviewed Medical History Arthritis Carpal tunnel syndrome Degenerative joint disease of spine Hypertension Leukocytosis Osteomyelitis Osteoporosis Peripheral neuropathy Prolapsed uterus Rectal prolapse Retinopathy Toe ulcer due to DM Surgical History H/O dilation and curettage Family History Family History Maternal Grandmother Diabetes Maternal Grandfather Heart disease Cancer of unknown origin Mother HTN (hypertension) Paternal Uncle Thalassemia Social History Social History Household Members: Children Housing: Apartment Are you a primary daycare teacher to a significant other at home: No Do you presently have visiting nurse or other home services: No Alcohol intake: never Patient Tobacco Use Status: Never used Tobacco Second Hand Smoke Exposure: No Advance Directives: No Advance Directives Information Provided: No service: No Physical Exam ED Vital Signs: Vital Signs - 24 hr 01/21/22 13:55 Temperature 98 F Pulse Rate 104 H Respiratory Rate 18 Blood Pressure 123/47 L Pulse Oximetry 98 Oxygen Delivery Method Room Air BMI result Body Mass Index 32.8 VSS Appearance: Alert.? Oriented X3.? No acute distress.? Head: Normocephalic, atraumatic, no step-offs or deformities Eyes: Pupils equal, round and reactive to light.? CVS: Normal heart rate and rhythm.? Pulses normal.? Respiratory: No respiratory distress.? Breath sounds normal.? Abdomen: Soft and nontender.? Skin: + ulcer over the plantar lateral metatarsals area of the right foot, erythema over the dorsal aspect of the right foot with warmth. + ulcerated area to left foot. + nacrotic area overlying distal aspect of toes 3-4 on right. Extremities: No lower extremity edema.? b/l calf ttp. 5/5 strength to bilateral upper and lower extremities 2+ DP, PT and popliteal pulses equal and b/l. Capillary refil < 2 seconds to b/l lower extremities. (image below) Back: No midline tenderness, no C-spine tenderness, full range of motion, no CVA tenderness bilaterally Neuro: Oriented X 3.? No motor deficit.? + decreased sensation from ankle to toes b/l. CN 2-12 intact Course Reevaluation(s) Reevaluation #1: CBC with slight leukocytosis however this appears to be chronic in nature. A in microcytic anemia is noted however again chronic in nature. Chemistry with no acute electrolyte abnormalities requiring intervention. X-ray of the ribs with a possible nondisplaced fracture of the anterior lateral left 6th rib, consistent with physical exam findings. No signs of pneumothorax. For further evaluation of this pain a CT of the chest was ordered which shows subtle contour deformity of the anterior lateral left 6 rib suspicious for nondisplaced fracture. Coronary artery calcifications noted. Bilateral lung nodules are also noted, patient educated on this advised follow-up with PCP. X-ray of the foot with significant diffuse soft tissue swelling, no air, no evidence of osteomyelitis on x-ray. Time: 00:25 Reevaluation #2: Will treat for cellulitis of the right lower extremity. Patient has an appointment at the [facility] for Saturday, I told her to speak to the [facility]ound Clinic but her right foot, and I told her to follow-up with her PCP as soon as possible preferably within the next 1-3 days. Will send her home on doxycycline and Keflex. Advised her to return with new or worsening symptoms. This case was discussed with my attending Dr. Robbins who agrees with diagnosis and treatment plan Time: 00:25 Medical Decision Making MDM Narrative Medical decision making narrative: 2199 48-year-old female presents today status post fall in her shower, she is on anticoagulants reports she did hit her head. She reports she was bending over in the shower to look at blood coming from her foot. Complaing of wound to right foot and bleeding on toes. Patient on plavix Physical exam w/ decreased sensation from ankle down to toes b/l. Wounds b/l. Wound on right with overlying errythema and warmth. Normal pulses b/l. Necrotic toes on right #3-4 Numbness on b/l lower extremities chronic in nauture. Plan at this time is basic lab work, imaging of the chest, imaging of the foot Likely diabetic foot ulcer with possible osteomyelitis and rib fracture, will do imaging of the chest and foot to rule out fractures and check for infection of the bone. Unlikely arterial occulsion NV intact Unable to feel bone w/ probing of wound on right Medical Records Medical records reviewed: Yes I reviewed the patient's medical records. Lab Data Lab results reviewed: Yes I reviewed the patient's lab results. Result diagrams: 01/21/22 14:39 01/21/22 14:39 Labs: Lab Results 01/21/22 01/21/22 01/21/22 Range/Units 14:39 14:39 14:39 WBC 13.9 H (4.8-10.8) X10*3/uL RBC 4.42 (4.20-5.50) X10*6/uL Hgb 8.6 L (12.0-16.0) g/dl Hct 27.8 L (37.0-47.0) % MCV 62.9 L (80.0-98.0) fL MCH 19.5 L (27.0-33.0) pg MCHC 30.9 L (31.0-35.0) g/dl RDW 19.3 H (11.0-16.0) % Plt Count 518 H (160-400) X10*3/uL MPV 8.9 L (9.4-12.3) fL Immature Gran % (Auto) 0.4 (0.0-0.4) % Neut % (Auto) 75.4 H (45-73) % Lymph % (Auto) 13.3 L (20-40) % [place] % (Auto) 8.8 (2-11) % Eos % (Auto) 1.7 (0-4) % Baso % (Auto) 0.4 (0-2) % Lymph # (Auto) 1.9 (1.2-4.9) X10*3/uL [place] # (Auto) 1.2 (0.1-1.2) X10*3/uL Eos # (Auto) 0.2 (0.0-0.4) X10*3/uL Baso # (Auto) 0.1 (0.0-0.2) X10*3/uL Abs Immat Gran (auto) 0.05 H (0.00-0.03) X10*3/uL Absolute Neuts (auto) 10.5 H (2.0-8.3) x10*3/uL Absolute Nucleated RBC 0.060 H (0.0-0.012) X10*3/uL Nucleated RBC % (auto) 0.4 H (0.0-0.2) /100WBC Sodium 135 (135-145) mmol/L Potassium 4.0 (3.3-5.1) mmol/L Chloride 100 (96-108) mmol/L Carbon Dioxide 25 (22-29) mmol/L Anion Gap 14 (12-20) BUN 16 (9-16) mg/dL Creatinine 1.09 (0.5-1.4) mg/dL Estim Creat Clear Calc 51.3 Estimated GFR 52 Random Glucose 201 H (60-115) mg/dL Lactic Acid (0.5-2.0) mmol/L Calcium 9.4 (8.4-10.2) mg/dL Troponin I High Sens < 3.5 (<3.5-17.0) ng/L C-Reactive Protein 7.59 H (< or = 0.50) mg/dL 01/21/22 Range/Units 14:39 WBC (4.8-10.8) X10*3/uL RBC (4.20-5.50) X10*6/uL Hgb (12.0-16.0) g/dl Hct (37.0-47.0) % MCV (80.0-98.0) fL MCH (27.0-33.0) pg MCHC (31.0-35.0) g/dl RDW (11.0-16.0) % Plt Count (160-400) X10*3/uL MPV (9.4-12.3) fL Immature Gran % (Auto) (0.0-0.4) % Neut % (Auto) (45-73) % Lymph % (Auto) (20-40) % [place] % (Auto) (2-11) % Eos % (Auto) (0-4) % Baso % (Auto) (0-2) % Lymph # (Auto) (1.2-4.9) X10*3/uL [place] # (Auto) (0.1-1.2) X10*3/uL Eos # (Auto) (0.0-0.4) X10*3/uL Baso # (Auto) (0.0-0.2) X10*3/uL Abs Immat Gran (auto) (0.00-0.03) X10*3/uL Absolute Neuts (auto) (2.0-8.3) x10*3/uL Absolute Nucleated RBC (0.0-0.012) X10*3/uL Nucleated RBC % (auto) (0.0-0.2) /100WBC Sodium (135-145) mmol/L Potassium (3.3-5.1) mmol/L Chloride (96-108) mmol/L Carbon Dioxide (22-29) mmol/L Anion Gap (12-20) BUN (9-16) mg/dL Creatinine (0.5-1.4) mg/dL Estim Creat Clear Calc Estimated GFR Random Glucose (60-115) mg/dL Lactic Acid 2.0 (0.5-2.0) mmol/L Calcium (8.4-10.2) mg/dL Troponin I High Sens (<3.5-17.0) ng/L C-Reactive Protein (< or = 0.50) mg/dL Critical Care Time Critical Care Time Critical Care Time: No Discharge Plan Discharge Clinical Impression: Wound of foot, Diabetic foot ulcer, Fracture of rib, Lung nodule Patient Disposition: Home, Self-Care Instructions: Wound Infection (ED) Additional Instructions: Take your medications as prescribed. If you were prescribed antibiotics today, it is important that you take your medication to their entirety, do not skip any doses, do not finish them early. Follow-up with your primary care provider this week. Follow-up with the Wound Clinic as soon as possible Return to the emergency department with new or worsening symptoms. Such as fevers, chills, chest pain, shortness of breath, nausea, vomiting, dizziness, headache, vision changes, lethargy In case of emergency call 911 CT/CT chest wo con IMPRESSION: 1.? Subtle contour deformity of the anterolateral left sixth rib, suspicious for nondisplaced fracture. 2.? Coronary artery calcifications. Correlation with cardiac risk factors is recommended. 3.? Few bilateral lung nodules measuring up to 4 mm. According to the UPDATED 2017 Fleischner Society recommendations, the advised follow-up imaging for solid nodules < 6 mm is: ?? LOW RISK PATIENT: No routine follow-up. ?? HIGH RISK PATIENT: Optional CT at 12 months. Prescriptions: New doxycycline hyclate 100 mg capsule 100 mg PO BID 10 Days Qty: 20 0RF cephalexin 500 mg tablet 500 mg PO Q6H 10 Days Qty: 40 0RF No Action doxycycline hyclate 100 mg capsule 100 mg PO BID 30 Days Qty: 60 1RF folic acid 1 mg Tablet 1 mg PO DAILY Qty: 90 3RF cyclobenzaprine 10 mg tablet 10 mg PO TID PRN (Reason: muscle spasm) Qty: 14 0RF lidocaine 5 % adhesive patch,medicated 1 patch topical DAILY Qty: 15 0RF Rx Instructions: leave on most painful area for up to 12 hrs Jardiance 25 mg tablet 1 tab PO DAILY lisinopril 20 mg tablet 20 mg PO DAILY Qty: 90 0RF pioglitazone 15 mg tablet 1 tab PO DAILY atorvastatin 40 mg tablet 1 tab PO DAILY aspirin 81 mg tablet,delayed release (DR/EC) 1 tab PO DAILY metformin 1,000 mg tablet 1 tab PO BID ezetimibe 10 mg tablet 1 tab PO DAILY cholecalciferol (vitamin D3) 25 mcg (1,000 unit) tablet 1 tab PO DAILY insulin glargine [Lantus Solostar U-100 Insulin] 100 unit/mL (3 mL) insulin pen 40 unit subcut DAILY clopidogrel [Plavix] 75 mg tablet 75 mg PO DAILY Qty: 90 1RF pantoprazole 40 mg tablet,delayed release (DR/EC) 40 mg PO DAILY acetaminophen 500 mg tablet 500 mg PO DAILY PRN (Reason: Pain) bacitracin 500 unit/gram ointment 1 appl topical DAILY docusate sodium [Colace] 100 mg capsule 200 mg PO BEDTIME Qty: 60 5RF (DME) lancets [TRUEplus Lancets] 33 gauge misc See Rx Instructions topical .MEDSUPPLY Qty: 100 Rx Instructions: As directed (DME) pen needle, diabetic [UltiCare Pen Needle] 31 gauge x 5/16 needle See Rx Instructions subcut .MEDSUPPLY Qty: 1200 Rx Instructions: As directed (DME) FreeStyle Lite Strips Strip See Rx Instructions Not Applicable TID Qty: 10 Rx Instructions: As directed silver sulfadiazine 1 % cream 1 appl topical DAILY alcohol swabs [Alcohol Prep Pads] Pads, Medicated 1 pad topical TID Referrals: [facility] [place] [facility] [Provider Group] - 1 day Rosalind Cardoso FNP [Primary Care Provider] - 1 day
[2022-01-21] MEDS: Lidocaine 4 % Patch ADH..PATCH 1 PATCH TRANSDERMA (22:00)
[2022-01-22 00:35] LABS: C Reactive Protein 7.59 mg/dL (< or = 0.50)
[2022-01-22] MEDS: cephALEXin 500 MG CAPSULE PO (00:42)
[2022-01-22 01:14] LABS: Erythrocyte Sedimentation Rate 49 MM/HR (0-20)
== END 2022-01-22 00:49 | disposition home or self-care (01) ==
PROVIDERS: Emergency Medicine; Emergency Provider Student in an Organized Health Care Education/Training Program; PCP Registered Nurse
DX: S22.42XA Multiple fractures of ribs, left side, initial encounter for closed fracture (principal); L97.519 Non-pressure chronic ulcer of other part of right foot with unspecified severity; R91.1 Solitary pulmonary nodule; R07.89 Other chest pain; D50.9 Iron deficiency anemia, unspecified; M54.6 Pain in thoracic spine; M79.671 Pain in right foot; R07.81 Pleurodynia; W18.2XXA Fall in (into) shower or empty bathtub, initial encounter; Y93.E1 Activity, personal bathing and showering; Y99.9 Unspecified external cause status; Y92.002 Bathroom of unspecified non-institutional (private) residence as the place of occurrence of the external cause; Z79.899 Other long term (current) drug therapy; Z79.82 Long term (current) use of aspirin
CPT/HCPCS: 36415; 71101; 71250; 73630; 80048; 83605; 84484; 85025; 85652; 86140; 87040; 93005; 96374; 99283; 99284

== ENCOUNTER 2022-01-29 07:57 | Outpatient (REF) | payer OTHER, SELFPAY ==
--- NOTE | ~2022-01-29 | US_ITS ---
EXAMINATION: US NONINVASIVE ASSESSMENT OF THE ARTERIES OF BOTH LOWER EXTREMITIES WITH ANKLE PRESSURE MEASUREMENTS, ANKLE BRACHIAL INDICES, PVR MEASUREMENTS AND BILATERAL LOWER EXTREMITY DUPLEX CLINICAL INFORMATION: Peripheral vascular disease. TECHNIQUE: Ankle pressure measurements, ankle brachial indices and PVR tracings were obtained of the lower extremity arterial system bilaterally. In addition, duplex Doppler techniques with wave form analysis and measurement of velocities in the common femoral, profunda femoral, superficial femoral, popliteal and tibial arteries was performed. The study was performed only at rest. COMPARISON: None FINDINGS: NONINVASIVE ASSESSMENT OF THE ARTERIES OF BOTH LOWER EXTREMITIES WITH ABIs: RIGHT LEG: Right ankle-brachial index: 1.08 PVR (ankle): Abnormal, loss of dicrotic notch and decreased amplitude. LEFT LEG: Ankle-brachial index: 0.98 PVR (ankle): Abnormal, loss of dicrotic notch. Minimally decreased amplitude. BILATERAL LOWER EXTREMITY DUPLEX ULTRASOUND: RIGHT LEG: Common femoral artery: 112 cm/s, Diastolic flow reversal: Yes. Profunda femoris artery: 75.6 cm/s, Diastolic flow reversal: Yes. Superficial femoral artery (proximal): 102 cm/s, Diastolic flow reversal: Yes. Superficial femoral artery (mid): 310 cm/s, Diastolic flow reversal: No. Superficial femoral artery (distal): 86 cm/s, Diastolic flow reversal: No. Popliteal artery: 105 cm/s, Diastolic flow reversal: No. Posterior tibial artery: 72 cm/s, Diastolic flow reversal: No. Peroneal artery: 108 cm/s, Diastolic flow reversal: No. LEFT LEG: Common femoral artery: 196 cm/s, Diastolic flow reversal: Yes. Profunda femoris artery: 101 cm/s, Diastolic flow reversal: Yes. Superficial femoral artery (proximal): 109 cm/s, Diastolic flow reversal: Yes. Superficial femoral artery (mid): 143 cm/s, Diastolic flow reversal: Yes. Superficial femoral artery (distal): 105 cm/s, Diastolic flow reversal: No. Popliteal artery: 241 cm/s, Diastolic flow reversal: No. Posterior tibial artery: 51 cm/s, Diastolic flow reversal: No. US/US arterial duplex LE BI IMPRESSION: RIGHT LEG: MANUEL 1.08. Duplex ultrasound reveals elevated velocity within the mid superficial femoral artery consistent with a moderate hemodynamically significant stenosis. LEFT LEG: MANUEL 0.98. Duplex ultrasound reveals elevated velocity within the distal popliteal artery consistent with a moderate hemodynamically significant stenosis. MANUEL Reference: - >0.97-1.25 = normal - no significant arterial disease - 0.75-0.96 = mild peripheral arterial disease - 0.5-0.74 = moderate peripheral arterial disease - <0.50 = severe peripheral arterial disease
== END 2022-01-29 07:58 | disposition home or self-care (01) ==
LOC: HO.US 07:57
PROVIDERS: Visit Provider Surgery Vascular Surgery
DX: I70.213 Atherosclerosis of native arteries of extremities with intermittent claudication, bilateral legs (principal)
CPT/HCPCS: 93923; 93925

== ENCOUNTER 2022-02-05 11:01 | Outpatient (REF) | payer OTHER, SELFPAY ==
--- NOTE | ~2022-02-05 | MR_ITS ---
EXAMINATION: MRI OF THE RIGHT FOOT WITHOUT AND WITH CONTRAST CLINICAL INFORMATION: Type 2 diabetes mellitus peripheral vascular disease. Patient reports nonhealing wound plantar right foot COMPARISON: X-ray of the right foot January 2022 TECHNIQUE: MRI the right foot was performed before and after contrast. contrast dose 7.5 mL of Gadavist given intravenously. FINDINGS: Probable superficial soft tissue defect lateral aspect of the forefoot at approximately the level of the metatarsal heads between the fourth and fifth digits. This measures 11 mm at transverse and 5 mm craniocaudal and extends approximately 4 mm deep to the level of the skin. There is abnormal signal in the localized subcutaneous soft tissues being dark on T1 and bright on T2 with partial enhancement compatible with cellulitis. I do not see a fluid collection I do not see a sinus tract deep to the ulceration. The adjacent bones are normal without erosion or abnormal marrow signal. There is some additional less localized signal abnormality in the plantar subcutaneous soft tissues compatible with edema and perhaps some additional areas of cellulitis. Muscles and tendons: There is mild generalized edema within the muscles compatible with nonspecific myositis. I do not see significant atrophy of fatty infiltration. Ligaments and capsular structures: Unremarkable. Bone and articular cartilage: Slightly heterogeneous signal in the distal phalanx of the third digit of uncertain significance. No definite enhancement. Surrounding soft tissues unremarkable except for some minimal edema. Remaining bone and joints unremarkable. MR/MR foot RT wo/w con IMPRESSION: Plantar soft tissue defect digits at the level of the metatarsal heads. Surrounding cellulitis. No abscess or evidence of osteomyelitis. Generalized signal abnormality and partial enhancement of the muscles throughout the foot may reflect early denervation myositis Subtle heterogeneity of the marrow signal in distal phalanx of the third digit likely reflects normal variation.
== END 2022-02-05 11:02 | disposition home or self-care (01) ==
LOC: HO.MRI 11:01
PROVIDERS: Visit Provider Internal Medicine Geriatric Medicine
DX: E11.621 Type 2 diabetes mellitus with foot ulcer (principal); R70.0 Elevated erythrocyte sedimentation rate; I73.9 Peripheral vascular disease, unspecified
CPT/HCPCS: 73720; A9585

== ENCOUNTER → 2022-02-06 10:18 | Outpatient (BNVA) | payer OTHER, SELFPAY | PROVIDERS: PCP Registered Nurse; Visit Provider Surgery Vascular Surgery | DX: I73.9 Peripheral vascular disease, unspecified (principal) | CPT/HCPCS: 99212 ==

== ENCOUNTER 2022-03-28 14:50 | Inpatient (IN) | payer OTHER, SELFPAY ==
--- NOTE | ~2022-03-28 | XR_ITS ---
EXAMINATION: XR CHEST CLINICAL INFORMATION: Chest pain and weakness COMPARISON: 01/21/2022 TECHNIQUE: Frontal view of the chest was obtained. FINDINGS: No significant abnormality is noted involving the heart, lungs, mediastinum, bony thorax or soft tissues. XR/XR chest 1V IMPRESSION: Unremarkable examination.
--- NOTE | ~2022-03-28 | MR_ITS ---
EXAMINATION: MR ANGIOGRAPHY BRAIN WITHOUT CONTRAST MRI BRAIN WITHOUT CONTRAST CLINICAL INFORMATION: Ataxia. Vertebrobasilar insufficiency. COMPARISON: Brain MRI and head MRA 11/13/2017. TECHNIQUE: Multiplanar multisequence MRI of the brain was performed without contrast. Head MRA was performed without contrast. FINDINGS: Brain MRI: There is no acute infarction, hemorrhage, mass, or extra-axial fluid collection. A few small nonspecific foci of T2/FLAIR hyperintensity are seen within the cerebral white matter. The ventricles are normal in size without hydrocephalus. The major arterial flow voids are preserved at the skull base. The extracranial structures appear normal. Head MRA: There is no large vessel occlusion. The anterior and posterior circulations are patent. No vertebrobasilar stenosis. There is no evidence of aneurysm. MR/MR angio head wo con IMPRESSION: No acute intracranial abnormality. Specifically no evidence of acute infarction, hemorrhage, or mass. Major intracranial arteries are patent without significant stenosis or occlusion.
--- NOTE | ~2022-03-28 | MR_ITS ---
EXAMINATION: MR ANGIOGRAPHY BRAIN WITHOUT CONTRAST MRI BRAIN WITHOUT CONTRAST CLINICAL INFORMATION: Ataxia. Vertebrobasilar insufficiency. COMPARISON: Brain MRI and head MRA 11/13/2017. TECHNIQUE: Multiplanar multisequence MRI of the brain was performed without contrast. Head MRA was performed without contrast. FINDINGS: Brain MRI: There is no acute infarction, hemorrhage, mass, or extra-axial fluid collection. A few small nonspecific foci of T2/FLAIR hyperintensity are seen within the cerebral white matter. The ventricles are normal in size without hydrocephalus. The major arterial flow voids are preserved at the skull base. The extracranial structures appear normal. Head MRA: There is no large vessel occlusion. The anterior and posterior circulations are patent. No vertebrobasilar stenosis. There is no evidence of aneurysm. MR/MR head/brain wo con IMPRESSION: No acute intracranial abnormality. Specifically no evidence of acute infarction, hemorrhage, or mass. Major intracranial arteries are patent without significant stenosis or occlusion.
[2022-03-28 16:05] VITALS: BP 127/71; PULSE 101; RESP 18; TEMP 36.6; O2SAT 99; BMI 34.2
[2022-03-28 16:26] LABS: MANUAL DIFF FLAG NO
[2022-03-28 16:42] LABS: Basophils Absolute Auto 0.1 X10*3/uL (0.0-0.2); Basophils Percent Auto 0.5 % (0-2); Eosinophils Absolute Auto 0.1 X10*3/uL (0.0-0.4); Eosinophils Percent Auto 0.8 % (0-4); Hematocrit 26.5 % (37.0-47.0); Hemoglobin 8.4 g/dl (12.0-16.0); Imm Gran Abs Auto 0.42 X10*3/uL (0.00-0.03); Imm Gran Pct Auto 3.2 % (0.0-0.4); Lymphocytes Absolute Auto 1.9 X10*3/uL (1.2-4.9); Lymphocytes Percent Auto 14.6 % (20-40); Mean Corpuscular HGB Conc 31.7 g/dl (31.0-35.0); Mean Corpuscular Hemoglobin 19.2 pg (27.0-33.0); Mean Platelet Volume 8.9 fL (9.4-12.3); Monocytes Absolute Auto 0.9 X10*3/uL (0.1-1.2); Neutrophils Absolute Auto 9.8 x10*3/uL (2.0-8.3); Neutrophils Percent Auto 73.9 % (45-73); Platelet Count 905 X10*3/uL (160-400); Red Blood Count 4.37 X10*6/uL (4.20-5.50); Red Cell Distribution Width 16.2 % (11.0-16.0); White Blood Count 13.3 X10*3/uL (4.8-10.8)
[2022-03-28 16:43] LABS: Mean Corpuscular Volume 60.6 fL (80.0-98.0)
[2022-03-28 16:50] LABS: Anion Gap 18 (12-20); Blood Urea Nitrogen 17 mg/dL (9-16); Calcium 8.8 mg/dL (8.4-10.2); Carbon Dioxide 24 mmol/L (22-29); Chloride 87 mmol/L (96-108); Creatinine Clr Calc Pharmacy 60.8; Estimated Glomerular Filt Rate > 60; Glucose Random 197 mg/dL (60-115); Potassium 4.1 mmol/L (3.3-5.1); Sodium 125 mmol/L (135-145)
[2022-03-28 17:06] LABS: COVID-19 Test Negative (Negative); IDNOW Serial# 16C4AD1C
[2022-03-28 17:33] VITALS: BP 148/74; PULSE 91; RESP 19; TEMP 36.6; O2SAT 99
[2022-03-28 18:34] LABS: Appearance Urine Clear; Color Urine Yellow; Glucose Urine UA 100 mg/dL (Negative); Leukocyte Esterase Urine Trace (Negative); Nitrite Urine Negative (Negative); PH 5.5 (5.0-9.0); UMIC TRIGGER UACC YES; Urine Blood Negative (Negative); Urine Ketones Negative (Negative); Urine Protein 100 (2+) mg/dL (Neg-Trace)
--- NOTE | 2022-03-28 18:38 | ECG_ITS ---
Test Reason : CHEST PAIN Blood Pressure : / mmHG Vent. Rate : 086 BPM Atrial Rate : 086 BPM P-R Int : 134 ms QRS Dur : 088 ms QT Int : 376 ms P-R-T Axes : 063 057 063 degrees QTc Int : 449 ms Normal sinus rhythm Normal ECG When compared with ECG of 21-JAN-2022 14:13, No significant change was found Referred By: Ti Delacruz Electronically Signed By:GERMANIA KING
--- NOTE | 2022-03-28 18:40 | ED_ITS ---
HPI - Weakness General Chief complaint: Weakness Stated complaint: dizzy weak Time Seen by Provider: 03/28/22 17:49 Source: patient Mode of arrival: ambulatory Limitations: no limitations History of Present Illness HPI Narrative: 56-year-old female who presents emergency department for evaluation of headache, weakness, chest pain. The patient has history of diabetes with foot ulcers being managed by the wound clinic. She states that was seen at the wound clinic on 03/20/2022 (8 days prior to evaluation) and was diagnosed with an infection of her left foot ulcer. She states that her left foot was very red and very swollen and it has improved. She was started on Ceftin she has not been feeling well. She states that over the past 3 days she has been feeling very weak and has not been able to get out of bed. She states that she feels lightheaded, dizzy and was having difficulty walking due to her weakness. She states that today she was finally to get out of bed and walk so she came to the emergency department for evaluation. The patient states that she has been increasing the amount of fluid that she drinks and reports that she drinks 5-6 bottles of water which are 20 oz each. She states that over the past 2 days she has only been able to drink 2-3 bottles per day. She states that she has been experiencing chest pain as well but this is been going on for months. She states she feels that someone is dissecting her chest from the inside, this pain is intermittent, sharp and severe. The patient was admitted on 12/12/2021 for left-sided chest pain, hyponatremia and acute kidney injury. At that time the patient's sodium was 126 with a BUN of 40 and creatinine of 1.55 Related Data Home Medications Medication Instructions Recorded Confirmed aspirin 81 mg tablet,delayed 1 tab PO DAILY 07/02/21 01/16/22 release atorvastatin 40 mg tablet 1 tab PO DAILY 07/02/21 01/16/22 cholecalciferol (vitamin D3) 25 1 tab PO DAILY 07/02/21 01/16/22 mcg (1,000 unit) tablet ezetimibe 10 mg tablet 1 tab PO DAILY 07/02/21 01/16/22 insulin glargine 100 unit/mL (3 40 unit subcut DAILY 07/02/21 01/16/22 mL) subcutaneous pen (Lantus Solostar U-100 Insulin) metformin 1,000 mg tablet 1 tab PO BID 07/02/21 01/16/22 pioglitazone 15 mg tablet 1 tab PO DAILY 07/02/21 01/16/22 blood sugar diagnostic (FreeStyle #10 ea 09/18/21 01/16/22 Lite Strips) lancets 33 gauge (TRUEplus Lancets) #100 ea 09/18/21 01/16/22 pen needle, diabetic 31 gauge x #1,200 ea 09/18/21 01/16/22 5/16 (UltiCare Pen Needle) empagliflozin 25 mg tablet 1 tab PO DAILY 12/12/21 01/16/22 (Jardiance) acetaminophen 500 mg tablet 500 mg PO DAILY PRN Pain 12/19/21 01/16/22 bacitracin 500 unit/gram topical 1 appl topical DAILY 12/19/21 01/16/22 ointment pantoprazole 40 mg tablet,delayed 40 mg PO DAILY 12/19/21 01/16/22 release alcohol swabs (Alcohol Prep Pads) 1 pad topical TID 01/15/22 01/16/22 silver sulfadiazine 1 % topical 1 appl topical DAILY 01/15/22 01/16/22 cream Previous Rx's Medication Instructions Recorded folic acid 1 mg tablet 1 mg PO DAILY #90 tabs 08/08/21 clopidogrel 75 mg tablet (Plavix) 75 mg PO DAILY #90 tabs 10/11/21 cyclobenzaprine 10 mg tablet 10 mg PO TID PRN muscle spasm #14 10/31/21 tabs lidocaine 5 % topical patch 1 patch topical DAILY pain #15 ea 10/31/21 lisinopril 20 mg tablet 20 mg PO DAILY #90 tabs 12/13/21 docusate sodium 100 mg capsule 200 mg PO BEDTIME #60 caps 12/19/21 (Colace) doxycycline hyclate 100 mg capsule 100 mg PO BID 30 days #60 caps 01/05/22 cephalexin 500 mg tablet 500 mg PO Q6H 10 days #40 tabs 01/22/22 doxycycline hyclate 100 mg capsule 100 mg PO BID 10 days #20 caps 01/22/22 Allergies Allergy/AdvReac Type Severity Reaction Status Date / Time No Known Allergies Allergy Unknown UNKNOWN Verified 02/06/22 10:49 [NO KNOWN ALLERGIES] Review of Systems Review of Systems: Yes all other systems are reviewed and are negative [facility] Past Medical History [facility] Narrative: Social history: Patient denies tobacco, alcohol and drug use. Medical History Arthritis Carpal tunnel syndrome Degenerative joint disease of spine Hypertension Leukocytosis Osteomyelitis Osteoporosis Peripheral neuropathy Prolapsed uterus Rectal prolapse Retinopathy Toe ulcer due to DM Surgical History H/O dilation and curettage Family History Family History Maternal Grandmother Diabetes Maternal Grandfather Heart disease Cancer of unknown origin Mother HTN (hypertension) Paternal Uncle Thalassemia Social History Social History Household Members: Children Housing: Apartment Are you a primary customer care consultant to a significant other at home: No Do you presently have visiting nurse or other home services: No Alcohol intake: never Patient Tobacco Use Status: Never used Tobacco Second Hand Smoke Exposure: No Use of substances other than those prescribed or required for medical reasons: No Advance Directives: No Advance Directives Information Provided: No Patient : No service: No Physical Exam Vital Signs: Vital Signs: Last Vital Signs Temp 97.9 F 03/28/22 17:33 Pulse 91 03/28/22 19:28 Resp 17 03/28/22 19:28 BP 147/71 H 03/28/22 19:28 Pulse Ox 100 03/28/22 19:28 O2 Del Method 03/28/22 19:28 BMI result Body Mass Index 34.2 Const: Other: Awake, alert, female patient, she appears to be anxious, the patient does appear to be very weak and did need assistance to go to the bathroom Orientation/consciousness: oriented to person and oriented to place HEENT: Head: Yes normal to inspection, Yes normocephalic and Yes atraumatic Ears: external ears normal General nose exam: Normal external nose present Face and sinus: Yes normal facial exam Mouth: Normal oral and palatal mucosa present Throat: Yes posterior oropharynx normal Eyes: General: appearance normal, both eyes and all related structures Pupils: Equal, round and reactive pupils present Neck: Neck: Yes normal visual inspection, Yes no lymphadenopathy, Yes trachea midline and Yes supple Chest: Chest palpation & inspection: normal inspection of the chest and normal palpation of entire chest wall Resp: Effort & Inspection: normal respiratory effort and able to speak in complete sentences Auscultation: clear to auscultation bilaterally Cardio: Rate: regular rate Rhythm: regular rhythm Heart sounds: S1 normal heart sound present, S2 normal heart sound present and no murmurs GI: Inspection: Yes normal to inspection Palpation (GI): Soft to palpation, nontender and no guarding Auscultation: normal bowel sounds : General: Yes no CVA tenderness Back/Spine/Pelvis: Back: no CVA tenderness Neuro: General: oriented to person and oriented to place Cranial nerves: Yes CN's II-XII intact bilaterally and Yes Equal, round and reactive pupils present Cognition (Neuro): normal cognition Motor exam (neuro): Other motor observations present (Generalized weakness, symmetric) Extrem: Other: Patient's left foot is swollen compared to the right, the patient has an ulcer to the dorsal aspect left foot which does not appear to be infected, patient also has an ulcer to the dorsal aspect of the right foot again this does not appear to be infected. Psych: Appearance: grossly normal Speech and movement: Normal speech and movement present Affect: Anxious affect present Attitude: cooperative Thought process: Normal thought process present Thought content: Normal thought content present Course Course Course Narrative: 56-year-old female who presents emergency department for evaluation of weakness x3 days to the point where she is having difficulty getting out of bed and chest pain. The patient was seen at the wound clinic approximately 8 days prior and started on Ceftin for an infected left dorsal foot ulcer. The patient has been drinking a large amount of water over the past several days. Patient's physical examination did reveal a left diabetic foot ulcer which does not appear to be infected. She does have generalized weakness but can not move her extremities symmetrically. 1943:: Laboratory evaluation: WBC elevated 13,100-chronic, platelets elevated 950,000-chronic. Sodium low 125, chloride low 87, BUN and creatinine were normal at 17 and 0.94. Serum osmolality low 268. Urine osmolality low 306, urine sodium low 34. Urinalysis trace leukocyte esterase, microscopic 0-2 RBCs, 0-5 WBCs, no bacteria. COVID-19 negative. Radiology evaluation: Chest x-ray one view: Radiology impression: Unremarkable examination . 12 EKG: Normal sinus rhythm with no acute findings. The patient's weakness is most likely caused by her hyponatremia which at this time I believe is due to water intoxication based on her low serum osmolality, urine osmolality and low urine sodium in the amount of water that she reported drinking over the past several days. Patient will be given normal saline at 50 cc/hours, she will be fluid restricted. I did discuss admission with the covering hospitalist, Dr. Gorman.. MDM - Weakness Medical Records Attestation: I reviewed the patient's medical records. Lab Data Attestation: I reviewed the patient's lab results. Result diagrams: 03/28/22 16:21 03/28/22 16:21 Labs: Lab Results 03/28/22 03/28/22 03/28/22 Range/Units 16:21 16: 16:21 WBC 13.3 H (4.8-10.8) X10*3/uL RBC 4.37 (4.20-5.50) X10*6/uL Hgb 8.4 L (12.0-16.0) g/dl Hct 26.5 L (37.0-47.0) % MCV 60.6 L (80.0-98.0) fL MCH 19.2 L (27.0-33.0) pg MCHC 31.7 (31.0-35.0) g/dl RDW 16.2 H (11.0-16.0) % Plt Count 905 H D (160-400) X10*3/uL MPV 8.9 L (9.4-12.3) fL Immature Gran % (Auto) 3.2 H (0.0-0.4) % Neut % (Auto) 73.9 H (45-73) % Lymph % (Auto) 14.6 L (20-40) % [place] % (Auto) 7.0 (2-11) % Eos % (Auto) 0.8 (0-4) % Baso % (Auto) 0.5 (0-2) % Lymph # (Auto) 1.9 (1.2-4.9) X10*3/uL [place] # (Auto) 0.9 (0.1-1.2) X10*3/uL Eos # (Auto) 0.1 (0.0-0.4) X10*3/uL Baso # (Auto) 0.1 (0.0-0.2) X10*3/uL Abs Immat Gran (auto) 0.42 H (0.00-0.03) X10*3/uL Absolute Neuts (auto) 9.8 H (2.0-8.3) x10*3/uL Absolute Nucleated RBC 0.000 (0.0-0.012) X10*3/uL Nucleated RBC % (auto) 0.0 (0.0-0.2) /100WBC Sodium 125 L (135-145) mmol/L Potassium 4.1 (3.3-5.1) mmol/L Chloride 87 L (96-108) mmol/L Carbon Dioxide 24 (22-29) mmol/L Anion Gap 18 (12-20) BUN 17 H D (9-16) mg/dL Creatinine 0.94 (0.5-1.4) mg/dL Estim Creat Clear Calc 60.8 Estimated GFR > 60 Random Glucose 197 H (60-115) mg/dL Osmolality (281-305) mosm/kg Calcium 8.8 D (8.4-10.2) mg/dL Total Bilirubin 0.3 (0.0-1.0) mg/dL Direct Bilirubin 0.2 (0.0-0.5) mg/dL AST 16 D (5-31) U/L ALT 21 (0-31) U/L Alkaline Phosphatase 172 H D (39-117) U/L Total Protein 7.3 (6.5-8.0) g/dL Albumin 3.5 (3.5-5.0) g/dL Urine Color Urine Appearance Urine pH (5.0-9.0) Ur Specific [place] (1.005-1.025) Urine Protein (Neg-Trace) mg/dL Urine Glucose (UA) (Negative) mg/dL Urine Ketones (Negative) mg/dL Urine Blood (Negative) Urine Nitrite (Negative) Ur Leukocyte Esterase (Negative) Urine RBC (0-2) /HPF Urine WBC (0-5) /HPF Ur Squamous Epith Cells (0-2) /HPF Urine Bacteria (None Seen) Hyaline Casts (0-2) /LPF Granular Casts Urine Osmolality (373-1093) mosm/kg Ur Random Sodium mmol/L COVID-19 (LANCE) Negative (Negative) COVID-19 Clin Com See Note 03/28/22 03/28/22 03/28/22 Range/Units 16:21 18:18 18:18 WBC (4.8-10.8) X10*3/uL RBC (4.20-5.50) X10*6/uL Hgb (12.0-16.0) g/dl Hct (37.0-47.0) % MCV (80.0-98.0) fL MCH (27.0-33.0) pg MCHC (31.0-35.0) g/dl RDW (11.0-16.0) % Plt Count (160-400) X10*3/uL MPV (9.4-12.3) fL Immature Gran % (Auto) (0.0-0.4) % Neut % (Auto) (45-73) % Lymph % (Auto) (20-40) % [place] % (Auto) (2-11) % Eos % (Auto) (0-4) % Baso % (Auto) (0-2) % Lymph # (Auto) (1.2-4.9) X10*3/uL [place] # (Auto) (0.1-1.2) X10*3/uL Eos # (Auto) (0.0-0.4) X10*3/uL Baso # (Auto) (0.0-0.2) X10*3/uL Abs Immat Gran (auto) (0.00-0.03) X10*3/uL Absolute Neuts (auto) (2.0-8.3) x10*3/uL Absolute Nucleated RBC (0.0-0.012) X10*3/uL Nucleated RBC % (auto) (0.0-0.2) /100WBC Sodium (135-145) mmol/L Potassium (3.3-5.1) mmol/L Chloride (96-108) mmol/L Carbon Dioxide (22-29) mmol/L Anion Gap (12-20) BUN (9-16) mg/dL Creatinine (0.5-1.4) mg/dL Estim Creat Clear Calc Estimated GFR Random Glucose (60-115) mg/dL Osmolality 268 L (281-305) mosm/kg Calcium (8.4-10.2) mg/dL Total Bilirubin (0.0-1.0) mg/dL Direct Bilirubin (0.0-0.5) mg/dL AST (5-31) U/L ALT (0-31) U/L Alkaline Phosphatase (39-117) U/L Total Protein (6.5-8.0) g/dL Albumin (3.5-5.0) g/dL Urine Color Yellow Urine Appearance Clear Urine pH 5.5 (5.0-9.0) Ur Specific [place] 1.010 (1.005-1.025) Urine Protein 100 (2+) H (Neg-Trace) mg/dL Urine Glucose (UA) 100 H (Negative) mg/dL Urine Ketones Negative (Negative) mg/dL Urine Blood Negative (Negative) Urine Nitrite Negative (Negative) Ur Leukocyte Esterase Trace H (Negative) Urine RBC 0-2 (0-2) /HPF Urine WBC 0-5 (0-5) /HPF Ur Squamous Epith Cells 11-20 (0-2) /HPF Urine Bacteria None Seen (None Seen) Hyaline Casts 3-5 (0-2) /LPF Granular Casts Present Urine Osmolality 306 L (373-1093) mosm/kg Ur Random Sodium mmol/L COVID-19 (LANCE) (Negative) COVID-19 Clin Com 03/28/22 Range/Units 18:18 WBC (4.8-10.8) X10*3/uL RBC (4.20-5.50) X10*6/uL Hgb (12.0-16.0) g/dl Hct (37.0-47.0) % MCV (80.0-98.0) fL MCH (27.0-33.0) pg MCHC (31.0-35.0) g/dl RDW (11.0-16.0) % Plt Count (160-400) X10*3/uL MPV (9.4-12.3) fL Immature Gran % (Auto) (0.0-0.4) % Neut % (Auto) (45-73) % Lymph % (Auto) (20-40) % [place] % (Auto) (2-11) % Eos % (Auto) (0-4) % Baso % (Auto) (0-2) % Lymph # (Auto) (1.2-4.9) X10*3/uL [place] # (Auto) (0.1-1.2) X10*3/uL Eos # (Auto) (0.0-0.4) X10*3/uL Baso # (Auto) (0.0-0.2) X10*3/uL Abs Immat Gran (auto) (0.00-0.03) X10*3/uL Absolute Neuts (auto) (2.0-8.3) x10*3/uL Absolute Nucleated RBC (0.0-0.012) X10*3/uL Nucleated RBC % (auto) (0.0-0.2) /100WBC Sodium (135-145) mmol/L Potassium (3.3-5.1) mmol/L Chloride (96-108) mmol/L Carbon Dioxide (22-29) mmol/L Anion Gap (12-20) BUN (9-16) mg/dL Creatinine (0.5-1.4) mg/dL Estim Creat Clear Calc Estimated GFR Random Glucose (60-115) mg/dL Osmolality (281-305) mosm/kg Calcium (8.4-10.2) mg/dL Total Bilirubin (0.0-1.0) mg/dL Direct Bilirubin (0.0-0.5) mg/dL AST (5-31) U/L ALT (0-31) U/L Alkaline Phosphatase (39-117) U/L Total Protein (6.5-8.0) g/dL Albumin (3.5-5.0) g/dL Urine Color Urine Appearance Urine pH (5.0-9.0) Ur Specific [place] (1.005-1.025) Urine Protein (Neg-Trace) mg/dL Urine Glucose (UA) (Negative) mg/dL Urine Ketones (Negative) mg/dL Urine Blood (Negative) Urine Nitrite (Negative) Ur Leukocyte Esterase (Negative) Urine RBC (0-2) /HPF Urine WBC (0-5) /HPF Ur Squamous Epith Cells (0-2) /HPF Urine Bacteria (None Seen) Hyaline Casts (0-2) /LPF Granular Casts Urine Osmolality (373-1093) mosm/kg Ur Random Sodium 34.0 mmol/L COVID-19 (LANCE) (Negative) COVID-19 Clin Com ECG Data Attestation: I personally reviewed and interpreted this ECG as follows: Interpretation: 1900: Normal sinus rhythm rate of 86, normal IA interval, QRS duration, QTC interval, no ST segment elevation, no ST segment depression, no T-wave abnormalities, no PACs, no PVCs, this is a normal EKG. Discharge Plan Discharge Clinical Impression: Acute hyponatremia, Water intoxication syndrome, Weakness Prescriptions: No Action doxycycline hyclate 100 mg capsule 100 mg PO BID 30 Days Qty: 60 1RF folic acid 1 mg Tablet 1 mg PO DAILY Qty: 90 3RF cyclobenzaprine 10 mg tablet 10 mg PO TID PRN (Reason: muscle spasm) Qty: 14 0RF lidocaine 5 % adhesive patch,medicated 1 patch topical DAILY Qty: 15 0RF Rx Instructions: leave on most painful area for up to 12 hrs Jardiance 25 mg tablet 1 tab PO DAILY lisinopril 20 mg tablet 20 mg PO DAILY Qty: 90 0RF pioglitazone 15 mg tablet 1 tab PO DAILY atorvastatin 40 mg tablet 1 tab PO DAILY aspirin 81 mg tablet,delayed release (DR/EC) 1 tab PO DAILY metformin 1,000 mg tablet 1 tab PO BID ezetimibe 10 mg tablet 1 tab PO DAILY cholecalciferol (vitamin D3) 25 mcg (1,000 unit) tablet 1 tab PO DAILY insulin glargine [Lantus Solostar U-100 Insulin] 100 unit/mL (3 mL) insulin pen 40 unit subcut DAILY clopidogrel [Plavix] 75 mg tablet 75 mg PO DAILY Qty: 90 1RF doxycycline hyclate 100 mg capsule 100 mg PO BID 10 Days Qty: 20 0RF cephalexin 500 mg tablet 500 mg PO Q6H 10 Days Qty: 40 0RF pantoprazole 40 mg tablet,delayed release (DR/EC) 40 mg PO DAILY acetaminophen 500 mg tablet 500 mg PO DAILY PRN (Reason: Pain) bacitracin 500 unit/gram ointment 1 appl topical DAILY docusate sodium [Colace] 100 mg capsule 200 mg PO BEDTIME Qty: 60 5RF (DME) lancets [TRUEplus Lancets] 33 gauge misc See Rx Instructions topical .MEDSUPPLY Qty: 100 Rx Instructions: As directed (DME) pen needle, diabetic [UltiCare Pen Needle] 31 gauge x 5/16 needle See Rx Instructions subcut .MEDSUPPLY Qty: 1200 Rx Instructions: As directed (DME) FreeStyle Lite Strips Strip See Rx Instructions Not Applicable TID Qty: 10 Rx Instructions: As directed silver sulfadiazine 1 % cream 1 appl topical DAILY alcohol swabs [Alcohol Prep Pads] Pads, Medicated 1 pad topical TID
[2022-03-28] MEDS: 0.9 % Sodium Chloride 1,000 ML 50 ML IVCONT (18:51)
[2022-03-28 19:28] VITALS: BP 147/71; PULSE 91; RESP 17; O2SAT 100
[2022-03-28 19:29] LABS: Osmolality, Serum 268 mosm/kg (281-305)
[2022-03-28 19:33] LABS: Bacteria Urine None Seen (None Seen); Granular Casts Urine Present; RBC Urine 0-2 /HPF (0-2); WBC Urine 0-5 /HPF (0-5)
[2022-03-28 19:35] LABS: Alanine Aminotransferase 21 U/L (0-31); Albumin Level 3.5 g/dL (3.5-5.0); Alkaline Phosphatase 172 U/L (39-117); Aspartate Amino Transferase 16 U/L (5-31); Bilirubin Direct 0.2 mg/dL (0.0-0.5); Bilirubin Total 0.3 mg/dL (0.0-1.0); Total Protein 7.3 g/dL (6.5-8.0)
[2022-03-28 19:42] LABS: Osmolality Urine 306 mosm/kg (373-1093)
[2022-03-28 20:01] VITALS: BP 148/98; PULSE 98; RESP 16; O2SAT 99
--- NOTE | 2022-03-28 21:02 | PHA.MEDREC ---
Pharmacy Consult ? Medication Reconciliation Pharmacy has completed the medication reconciliation.
--- NOTE | 2022-03-28 21:12 | P.HPHOSP_ITS ---
History of Present Illness Date of Service: 03/28/22 Chief Complaint: dizziness, weakness this is a 48-year-old female with past medical history of diabetes, CKD, P 80, HTN, IBS among others who presents to the hospital with complaints of dizziness, unsteadiness, and generalized weakness. She reports that she has been so weak for the past 3 days that she has been bed-bound and unable to get out of bed. She has required maximum health noted to ambulate few steps/feet around her house. patient reports that she had an infection in the toe that is chronic and has been followed by in wound care, about 7 days ago she was noted to have worsening infection was started on oral antibiotics and reports significant improvement in the toe with no pain, no erythema, and no swelling. Patient reports no nausea or vomiting, reports no abdominal pain, no diarrhea constipation, no headache or change in vision, no numbness weakness or tingling. No chest pain or shortness of breath. No urinary symptoms and no lower extremity edema. Patient reports that she drinks about 5-6 bottles of water daily to stay hydra ana given her diabetes. She reports that if she drinks less than that she feels that her mouth is dry all the time. She denies any other changes to her medications. On arrival to the ED patient hemodynamically stable with no significant abnormal vitals Labs are significant for WBC count of 13.3 (chronically elevated) , glucose of 8.4 which is around her baseline, medical 26.5, MCV of 60.6, has a sodium of 125 baseline around 135, potassium 48.1, chloride of 87, BUN of 17, creatinine of 0. 94, serum osmolality of 268, urine negative for infection, urine osmolality of 306, and urine sodium of 34 Review of Systems Review of Systems: Yes all other systems are reviewed and are negative [facility] Medical History Arthritis Carpal tunnel syndrome Degenerative joint disease of spine Hypertension Leukocytosis Osteomyelitis Osteoporosis Peripheral neuropathy Prolapsed uterus Rectal prolapse Retinopathy Toe ulcer due to DM Family History Maternal Grandmother Diabetes Maternal Grandfather Heart disease Cancer of unknown origin Mother HTN (hypertension) Paternal Uncle Thalassemia Surgical History H/O dilation and curettage Social History Household Members: Children Housing: Apartment Are you a primary customer care professional to a significant other at home: No Do you presently have visiting nurse or other home services: No Alcohol intake: never Patient Tobacco Use Status: Never used Tobacco Second Hand Smoke Exposure: No Use of substances other than those prescribed or required for medical reasons: No Advance Directives: No Advance Directives Information Provided: No Patient : No service: No Meds Allergies Allergy/AdvReac Type Severity Reaction Status Date / Time No Known Allergies Allergy Unknown UNKNOWN Verified 02/06/22 10:49 [NO KNOWN ALLERGIES] Active Medications: Current Medications Acetaminophen (Acetaminophen 325 Mg Tablet) 650 mg PO Q6H PRN PRN Reason: Pain, Mild (Pain Scale 1-3) Aspirin (Aspirin Enteric Coated 81 Mg Tablet.Dr) 81 mg PO DAILY [facility] Atorvastatin Calcium (Atorvastatin Calcium 40 Mg Tablet) 40 mg PO DAILY [facility] Cefuroxime Axetil (Cefuroxime Axetil 250 Mg Tablet) 250 mg PO BID [facility] Clopidogrel Bisulfate (Clopidogrel Bisulfate 75 Mg Tablet) 75 mg PO DAILY [facility] Dextrose (Dextrose 50 % 25 Gm/50 Ml Syringe) 25 gm IVPUSH Q15M PRN; Protocol PRN Reason: per Hypoglycemia Standing Ord. Docusate Sodium (Docusate Sodium 100 Mg Capsule) 100 mg PO DAILY PRN PRN Reason: Constipation Folic Acid (Folic Acid 1 Mg Tablet) 1 mg PO DAILY [facility] Glucose (Glucose Gel 15 Gm Gel..Gram.) 15 gm PO Q15M PRN; Protocol PRN Reason: per Hypoglycemia Standing Ord. Heparin Sodium (Porcine) (Heparin Sodium,Porcine 5,000 Unit/Ml Vial) 5,000 unit SUBCUT Q12H [facility] Sodium Chloride (Ns) 1,000 mls @ 50 mls/hr IVCONT .Q20H [facility] Last Admin: 03/28/22 18:51 Dose: 50 mls/hr Insulin Glargine (Insulin Glargine,Hum.Rec.Anlog 100 Unit/Ml 10 Ml Vial) 40 unit SUBCUT DAILY [facility] Insulin Human Lispro (Insulin Lispro 100 Unit/Ml 3 Ml Vial) 0 unit SUBCUT QIDACHS CHACHA; Protocol Non-Formulary Medication (Lidocaine) 1 patch TOPICAL DAILY [facility] Non-Formulary Medication (Silver Sulfadiazine) 1 appl TOPICAL DAILY [facility] Ondansetron HCl (Ondansetron Hcl 4 Mg/2 Ml Vial) 4 mg IVPUSH Q8H PRN PRN Reason: Nausea and Vomiting Sodium Chloride (0.9 % Sodium Chloride Flush 3 Ml Syringe) 3 ml IVFLUSH QSHIFT [facility] Vitamin D (Cholecalciferol (Vitamin D3) 25 Mcg Tablet) 25 mcg PO DAILY [facility] Home Medications Medication Instructions Recorded Confirmed Last Taken Type aspirin 81 mg tablet,delayed 1 tab PO DAILY 07/02/21 03/28/22 03/28/22 History release atorvastatin 40 mg tablet 1 tab PO DAILY 07/02/21 03/28/22 03/28/22 History cholecalciferol (vitamin D3) 25 1 tab PO DAILY 07/02/21 03/28/22 03/28/22 History mcg (1,000 unit) tablet insulin glargine 100 unit/mL (3 40 unit subcut DAILY 07/02/21 03/28/22 03/28/22 History mL) subcutaneous pen (Lantus Solostar U-100 Insulin) metformin 1,000 mg tablet 1 tab PO BID 07/02/21 03/28/22 03/28/22 History blood sugar diagnostic (FreeStyle #10 ea 09/18/21 01/16/22 Unknown History Lite Strips) lancets 33 gauge (TRUEplus Lancets) #100 ea 09/18/21 01/16/22 Unknown History pen needle, diabetic 31 gauge x #1,200 ea 09/18/21 01/16/22 Unknown History 16 (UltiCare Pen Needle) bacitracin 500 unit/gram topical 1 appl topical TID 12/19/21 03/28/22 03/28/22 History ointment silver sulfadiazine 1 % topical 1 appl topical DAILY 01/15/22 03/28/22 03/28/22 History cream cefuroxime axetil 250 mg tablet 1 tab PO BID 03/28/22 03/28/22 03/28/22 History Physical Exam Vital Signs and Narrative: Vital Signs: Last Vital Signs Temp 97.9 F 03/28/22 17:33 Pulse 98 03/28/22 20:01 Resp 16 03/28/22 20:01 BP 148/98 H 03/28/22 20:01 Pulse Ox 99 03/28/22 20:01 O2 Del Method 03/28/22 20:01 BMI result Body Mass Index 34.2 Const: General: cooperative and no acute distress Orientation/consciousness: patient oriented x3 Eyes: General: appearance normal, both eyes and all related structures Resp: Effort & Inspection: normal respiratory effort Auscultation: clear to auscultation bilaterally Cardio: Rate: regular rate Rhythm: regular rhythm GI: Palpation (GI): Soft to palpation Auscultation: normal bowel sounds Skin: General skin exam: no rashes or lesions noted Neuro: General: patient oriented x3 Cognition (Neuro): normal cognition Extrem: Other: right foot has a clean based ulcer in the base of 4th/5th toe. not warm, no sig erythma, no sig tenderness appears euvolemic General: Yes normal to inspection and Yes no pedal edema Results Labs CBC and Chem 7: 03/28/22 16:21 03/28/22 16:21 Labs: Laboratory Results - last 24 hr 03/28/22 03/28/22 03/28/22 16:21 16:21 16:21 MCV 60.6 L MCH 19.2 L MCHC 31.7 RDW 16.2 H Plt Count 905 H D MPV 8.9 L Immature Gran % (Auto) 3.2 H Neut % (Auto) 73.9 H Lymph % (Auto) 14.6 L [place] % (Auto) 7.0 Eos % (Auto) 0.8 Baso % (Auto) 0.5 Lymph # (Auto) 1.9 [place]lin # (Auto) 0.9 Eos # (Auto) 0.1 Baso # (Auto) 0.1 Abs Immat Gran (auto) 0.42 H Absolute Neuts (auto) 9.8 H Absolute Nucleated RBC 0.000 Nucleated RBC % (auto) 0.0 Anion Gap 18 Estim Creat Clear Calc 60.8 Estimated GFR > 60 Random Glucose 197 H Osmolality Calcium 8.8 D Total Bilirubin 0.3 Direct Bilirubin 0.2 AST 16 D ALT 21 Alkaline Phosphatase 172 H D Total Protein 7.3 Albumin 3.5 Urine Color Urine Appearance Urine pH Ur Specific [place] Urine Protein Urine Glucose (UA) Urine Ketones Urine Blood Urine Nitrite Ur Leukocyte Esterase Urine RBC Urine WBC Ur Squamous Epith Cells Urine Bacteria Hyaline Casts Granular Casts Urine Osmolality Ur Random Sodium COVID-19 (LANCE) Negative COVID-19 Clin Com See Note 03/28/22 03/28/22 03/28/22 16:21 18:18 18:18 MCV MCH MCHC RDW Plt Count MPV Immature Gran % (Auto) Neut % (Auto) Lymph % (Auto) [place] % (Auto) Eos % (Auto) Baso % (Auto) Lymph # (Auto) [place] # (Auto) Eos # (Auto) Baso # (Auto) Abs Immat Gran (auto) Absolute Neuts (auto) Absolute Nucleated RBC Nucleated RBC % (auto) Anion Gap Estim Creat Clear Calc Estimated GFR Random Glucose Osmolality 268 L Calcium Total Bilirubin Direct Bilirubin AST ALT Alkaline Phosphatase Total Protein Albumin Urine Color Yellow Urine Appearance Clear Urine pH 5.5 Ur Specific [place] 1.010 Urine Protein 100 (2+) H Urine Glucose (UA) 100 H Urine Ketones Negative Urine Blood Negative Urine Nitrite Negative Ur Leukocyte Esterase Trace H Urine RBC 0-2 Urine WBC 0-5 Ur Squamous Epith Cells 11-20 Urine Bacteria None Seen Hyaline Casts 3-5 Granular Casts Present Urine Osmolality 306 L Ur Random Sodium COVID-19 (LANCE) COVID-19 [employer] Com 03/28/22 18:18 MCV MCH MCHC RDW Plt Count MPV Immature Gran % (Auto) Neut % (Auto) Lymph % (Auto) [place] % (Auto) Eos % (Auto) Baso % (Auto) Lymph # (Auto) [place]lin # (Auto) Eos # (Auto) Baso # (Auto) Abs Immat Gran (auto) Absolute Neuts (auto) Absolute Nucleated RBC Nucleated RBC % (auto) Anion Gap Estim Creat Clear Calc Estimated GFR Random Glucose Osmolality Calcium Total Bilirubin Direct Bilirubin AST ALT Alkaline Phosphatase Total Protein Albumin Urine Color Urine Appearance Urine pH Ur Specific [place] Urine Protein Urine Glucose (UA) Urine Ketones Urine Blood Urine Nitrite Ur Leukocyte Esterase Urine RBC Urine WBC Ur Squamous Epith Cells Urine Bacteria Hyaline Casts Granular Casts Urine Osmolality Ur Random Sodium 34.0 COVID-19 (LANCE) COVID-19 [employer] Com Imaging Radiologist's Impressions: Impressions Chest X-Ray 03/28/22 19:15 IMPRESSION: Unremarkable examination. Assessment and Plan (1) Acute hyponatremia: Status: Acute (2) Water intoxication syndrome: Status: Acute (3) Weakness: Status: Acute (4) Chronic ulcer of right foot: Status: Acute Plan 56 yo F with hx of DM, HTN, CKD presents to the hospital with weakness found to have hyponatremia # acute hyponatremai - likely secondary to exccessive water intake - pt appears euvolemic - has a serum osm of 268, with urine Osm of 306 and urine Na 34 - Will place on fluid restriction - Nephrology consulted - stat rpt BMP, and then q3h # weaness, dizziness - likely 2/2 above - will trx underlying cause - monitor # chronic ulcer of right foot - no evidence of acute infectin - continue oral abx for another 3 days to have completed 10 day oral abx course # DM - hold oral antihyperglycemics - LDSSI, diabetic diet # HTN - stable - continue lisinopril # CKD - stable DVT ppx: hepairn subq given moderate hyponatrmei, pt will require inpatient admission for further monitoring Quality Stroke Does the patient have a stroke diagnosis?: No VTE Prior VTE?: No VTE Risk Level:: Medical - moderate - high VTE Device Contraindication: Treatment Not Indicated VTE Drug Contraindication: N/A - Med Ordered
[2022-03-28 22:04] VITALS: BP 108/55; PULSE 98; RESP 20; TEMP 36.9; O2SAT 100
[2022-03-28] MEDS: Heparin Sodium,Porcine 5,000 UNIT/ML VIAL 5000 UNIT SUBCUT (22:10)
[2022-03-28] MEDS: Insulin Lispro 100 UNIT/ML 3 ML VIAL SUBCUT (22:38)
[2022-03-28 22:41] LABS: Glucose, Whole Blood 184 mg/dL (60-115)
[2022-03-28 22:59] LABS: Anion Gap 20 (12-20); Blood Urea Nitrogen 19 mg/dL (9-16); Calcium 8.5 mg/dL (8.4-10.2); Carbon Dioxide 21 mmol/L (22-29); Chloride 90 mmol/L (96-108); Creatinine Clr Calc Pharmacy 51.9; Estimated Glomerular Filt Rate 51; Glucose Random 212 mg/dL (60-115); Potassium 4.5 mmol/L (3.3-5.1); Sodium 126 mmol/L (135-145)
[2022-03-28 23:23] VITALS: BP 160/80; PULSE 89; RESP 24
[2022-03-29] VITALS (8 sets, daily range): BP systolic 119–147; BP diastolic 67–76; PULSE 84–98; RESP 16–24; TEMP 36.6–36.8; O2SAT 98–100
--- NOTE | 2022-03-29 01:20 | PC.NURSE ---
RN outreached hospitalist to determine if pt's IVF should be resumed as this RN received pt's IVF were on hold until 2200 lab work obtained. per hospitalist pt's IVF to remain on hold despite NA of 126. pt aware
--- NOTE | 2022-03-29 02:04 | PC.NURSE ---
RN to bedside for primary evaluation; pt noted to be laying supine in the bed with eyes closed, respirations even and unlabored without distress noted. the pt reports the presence of 6/10 chest pressure that she reports has been constant x3 days. Pt noted to fluctuate between NSR and sinus tach. RN made hospitalist aware to determine if she would like cardiac enzymes collected and/or added to the pt's lab work as a troponin was not previously completed. Pt provided with warm blankets and will be provided with a turkey sandwich per request, RN will continue to monitor.
[2022-03-29 04:48] LABS: MANUAL DIFF FLAG NO
[2022-03-29 04:49] LABS: Basophils Absolute Auto 0.1 X10*3/uL (0.0-0.2); Basophils Percent Auto 0.5 % (0-2); Eosinophils Absolute Auto 0.2 X10*3/uL (0.0-0.4); Eosinophils Percent Auto 1.9 % (0-4); Hematocrit 22.4 % (37.0-47.0); Hemoglobin 7.2 g/dl (12.0-16.0); Imm Gran Abs Auto 0.28 X10*3/uL (0.00-0.03); Imm Gran Pct Auto 2.5 % (0.0-0.4); Lymphocytes Absolute Auto 2.7 X10*3/uL (1.2-4.9); Lymphocytes Percent Auto 24.3 % (20-40); Mean Corpuscular HGB Conc 32.1 g/dl (31.0-35.0); Mean Corpuscular Hemoglobin 19.8 pg (27.0-33.0); Mean Corpuscular Volume 61.5 fL (80.0-98.0); Mean Platelet Volume 8.4 fL (9.4-12.3); Monocytes Absolute Auto 0.9 X10*3/uL (0.1-1.2); Monocytes Percent Auto 8.3 % (2-11); Neutrophils Absolute Auto 6.9 x10*3/uL (2.0-8.3); Neutrophils Percent Auto 62.5 % (45-73); Platelet Count 748 X10*3/uL (160-400); Red Blood Count 3.64 X10*6/uL (4.20-5.50); Red Cell Distribution Width 16.7 % (11.0-16.0)
[2022-03-29] MEDS: 0.9 % Sodium Chloride Flush 3 ML SYRINGE IVFLUSH ×4 (05:28→20:14)
[2022-03-29 07:14] LABS: Glucose, Whole Blood 197 mg/dL (60-115)
[2022-03-29] MEDS: Insulin Lispro 100 UNIT/ML 3 ML VIAL SUBCUT ×4 (07:22→20:14)
[2022-03-29 07:36] LABS: Anion Gap 18 (12-20); Blood Urea Nitrogen 20 mg/dL (9-16); Calcium 8.9 mg/dL (8.4-10.2); Carbon Dioxide 22 mmol/L (22-29); Chloride 93 mmol/L (96-108); Creatinine Clr Calc Pharmacy 48.8; Estimated Glomerular Filt Rate 48; Glucose Random 278 mg/dL (60-115); Potassium 4.4 mmol/L (3.3-5.1); Sodium 129 mmol/L (135-145)
[2022-03-29 07:37] LABS: Anion Gap 17 (12-20); Blood Urea Nitrogen 20 mg/dL (9-16); Carbon Dioxide 23 mmol/L (22-29); Chloride 93 mmol/L (96-108); Estimated Glomerular Filt Rate 47; Glucose Random 274 mg/dL (60-115); Potassium 4.4 mmol/L (3.3-5.1); Sodium 129 mmol/L (135-145)
[2022-03-29 07:42] LABS: Troponin-I High Sensitivity < 3.5 ng/L (<3.5-17.0)
[2022-03-29 08:23] LABS: Glucose, Whole Blood 195 mg/dL (60-115)
[2022-03-29] MEDS: Insulin Glargine,Hum.rec.anlog 100 UNIT/ML 10 ML VIAL 40 UNIT SUBCUT (08:25)
[2022-03-29] MEDS: Heparin Sodium,Porcine 5,000 UNIT/ML VIAL 5000 UNIT SUBCUT (08:26)
[2022-03-29] MEDS: Clopidogrel Bisulfate 75 MG TABLET PO (08:26)
[2022-03-29] MEDS: Lidocaine 4 % Patch ADH..PATCH 1 PATCH TRANSDERMA (08:26)
[2022-03-29] MEDS: Folic Acid 1 MG TABLET PO (08:26)
[2022-03-29] MEDS: Atorvastatin Calcium 40 MG TABLET PO (08:26)
[2022-03-29] MEDS: Cholecalciferol (Vitamin D3) 25 MCG TABLET PO (08:26)
[2022-03-29] MEDS: Aspirin Enteric Coated 81 MG TABLET.DR PO (08:26)
[2022-03-29 09:13] LABS: Anion Gap 17 (12-20); Blood Urea Nitrogen 19 mg/dL (9-16); Calcium 9.4 mg/dL (8.4-10.2); Carbon Dioxide 24 mmol/L (22-29); Chloride 95 mmol/L (96-108); Creatinine Clr Calc Pharmacy 51.9; Estimated Glomerular Filt Rate 51; Glucose Random 219 mg/dL (60-115); Potassium 4.1 mmol/L (3.3-5.1); Sodium 132 mmol/L (135-145)
--- NOTE | 2022-03-29 09:27 | MHC.CM.PN ---
Attempted to meet with patient in regards to discharge planning. Nursing care currently being provided. Will attempt to meet again. Continue to monitor for d/c needs.
[2022-03-29 10:19] LABS: Sodium 131 mmol/L (135-145)
[2022-03-29 11:29] LABS: Glucose, Whole Blood 201 mg/dL (60-115)
[2022-03-29 12:01] LABS: Hematocrit 24.4 % (37.0-47.0); Hemoglobin 7.5 g/dl (12.0-16.0)
[2022-03-29 12:07] LABS: Anion Gap 17 (12-20); Blood Urea Nitrogen 19 mg/dL (9-16); Calcium 9.4 mg/dL (8.4-10.2); Carbon Dioxide 24 mmol/L (22-29); Chloride 94 mmol/L (96-108); Creatinine Clr Calc Pharmacy 59.5; Estimated Glomerular Filt Rate 60; Glucose Random 206 mg/dL (60-115); Sodium 131 mmol/L (135-145)
[2022-03-29 12:11] LABS: Iron 56 mcg/dL (30-160); Percent Iron Saturation 29 % (15-50); Total Iron Binding Capacity 196 mcg/dL (228-428); Unsaturated Iron Binding 140 ug/dL
--- NOTE | 2022-03-29 12:17 | P.PNIM_ITS ---
Subjective Subjective Date of Service: 03/29/22 Interval History: ataxia /dizziness hyponatremia Review of Systems Patient still feeling dizzy and very weak Denies any nausea vomiting or abdominal pain Physical Exam Vital Signs: Vital Signs: Last Vital Signs Temp 98.2 F 03/29/22 10:48 Pulse 84 03/29/22 11:06 Resp 18 03/29/22 10:48 BP 141/67 H 03/29/22 11:06 Pulse Ox 99 03/29/22 11:06 O2 Del Method 03/29/22 10:48 BMI result Body Mass Index 34.2 Physical exam: Appearance: Alert.? Oriented X3.? not in distress.? Eyes:mild nystagmus . cvs: rrr, [id number] . res: clear to auscultation ,no rhonchii or wheezing abd: no rebound or guarding ,nt, bs present. ext pulses present , no cyanosis . neuro: axo3 , nonfocal. Objective Data Active Medications Acetaminophen (Acetaminophen 325 Mg Tablet) 650 mg PO Q6H PRN PRN Reason: Pain, Mild (Pain Scale 1-3) Aspirin (Aspirin Enteric Coated 81 Mg Tablet.) 81 mg PO DAILY [facility] Last Admin: 03/29/22 08:26 Dose: 81 mg Documented By: HESHAM Atorvastatin Calcium (Atorvastatin Calcium 40 Mg Tablet) 40 mg PO DAILY [facility] Last Admin: 03/29/22 08:26 Dose: 40 mg Documented By: HESHAM Cefuroxime Axetil (Cefuroxime Axetil 250 Mg Tablet) 250 mg PO BID [facility] Last Admin: 03/29/22 08:26 Dose: 250 mg Documented By: HESHAM Clopidogrel Bisulfate (Clopidogrel Bisulfate 75 Mg Tablet) 75 mg PO DAILY [facility] Last Admin: 03/29/22 08:26 Dose: 75 mg Documented By: HESHAM Dextrose (Dextrose 50 % 25 Gm/50 Ml Syringe) 25 gm IVPUSH Q15M PRN; Protocol PRN Reason: per Hypoglycemia Standing Ord. Docusate Sodium (Docusate Sodium 100 Mg Capsule) 100 mg PO DAILY PRN PRN Reason: Constipation Epoetin Socrates (Epoetin Socrates 10,000 Unit/Ml Vial) 10,000 unit SUBCUT ONCE ONE Stop: 03/29/22 12:15 Famotidine (Famotidine 20 Mg Tablet) 20 mg PO BID [facility] Folic Acid (Folic Acid 1 Mg Tablet) 1 mg PO DAILY [facility] Last Admin: 03/29/22 08:26 Dose: 1 mg Documented By: HESHAM Glucose (Glucose Gel 15 Gm Gel..Gram.) 15 gm PO Q15M PRN; Protocol PRN Reason: per Hypoglycemia Standing Ord. Heparin Sodium (Porcine) (Heparin Sodium,Porcine 5,000 Unit/Ml Vial) 5,000 unit SUBCUT Q12H [facility] Last Admin: 03/29/22 08:26 Dose: 5,000 unit Documented By: HESHAM Insulin Glargine (Insulin Glargine,Hum.Rec.Anlog 100 Unit/Ml 10 Ml Vial) 40 unit SUBCUT DAILY [facility] Last Admin: 03/29/22 08:25 Dose: 40 unit Documented By: HESHAM Insulin Human Lispro (Insulin Lispro 100 Unit/Ml 3 Ml Vial) 0 unit SUBCUT QIDACHS [facility]; Protocol Last Admin: 03/29/22 07:22 Dose: 2 unit Documented By: HESHAM Lidocaine (Lidocaine 4 % Patch Adh..Patch) 1 patch TRANSDERMA DAILY [facility] Last Admin: 03/29/22 08:26 Dose: 1 patch Documented By: HESHAM Ondansetron HCl (Ondansetron Hcl 4 Mg/2 Ml Vial) 4 mg IVPUSH Q8H PRN PRN Reason: Nausea and Vomiting Silver Sulfadiazine (Silver Sulfadiazine 1 % Cream 25 Gm Cream..G.) 1 appl TOPICAL DAILY [facility] Sodium Chloride (0.9 % Sodium Chloride Flush 3 Ml Syringe) 3 ml IVFLUSH QSHIFT [facility] Last Admin: 03/29/22 07:23 Dose: 3 ml Documented By: HESHAM Vitamin D (Cholecalciferol (Vitamin D3) 25 Mcg Tablet) 25 mcg PO DAILY [facility] Last Admin: 03/29/22 08:26 Dose: 25 mcg Documented By: HESHAM Labs CBC & Chem 7: 03/29/22 11:36 03/29/22 11:36 Labs: Laboratory Results - last 24 hr 03/28/22 03/28/22 03/28/22 15:09 16:21 16:21 MCV 60.6 L MCH 19.2 L MCHC 31.7 RDW 16.2 H Plt Count 905 H D MPV 8.9 L Immature Gran % (Auto) 3.2 H Neut % (Auto) 73.9 H Lymph % (Auto) 14.6 L Garvin % (Auto) 7.0 Eos % (Auto) 0.8 Baso % (Auto) 0.5 Lymph # (Auto) 1.9 Garvin # (Auto) 0.9 Eos # (Auto) 0.1 Baso # (Auto) 0.1 Abs Immat Gran (auto) 0.42 H Absolute Neuts (auto) 9.8 H Absolute Nucleated RBC 0.000 Nucleated RBC % (auto) 0.0 Anion Gap 18 Estim Creat Clear Calc 60.8 Estimated GFR > 60 POC Glucose 195 H Random Glucose 197 H Osmolality Calcium 8.8 D Iron TIBC % Saturation Unsat Iron Binding Total Bilirubin 0.3 Direct Bilirubin 0.2 AST 16 D ALT 21 Alkaline Phosphatase 172 H D Total Protein 7.3 Albumin 3.5 Urine Color Urine Appearance Urine pH Ur Specific [place] Urine Protein Urine Glucose (UA) Urine Ketones Urine Blood Urine Nitrite Ur Leukocyte Esterase Urine RBC Urine WBC Ur Squamous Epith Cells Urine Bacteria Hyaline Casts Granular Casts Urine Osmolality Ur Random Sodium COVID-19 (LANCE) COVID-[employer] 03/28/22 03/28/22 03/28/22 16:21 16:21 18:18 MCV MCH MCHC RDW Plt Count MPV Immature Gran % (Auto) Neut % (Auto) Lymph % (Auto) Garvin % (Auto) Eos % (Auto) Baso % (Auto) Lymph # (Auto) Garvin # (Auto) Eos # (Auto) Baso # (Auto) Abs Immat Gran (auto) Absolute Neuts (auto) Absolute Nucleated RBC Nucleated RBC % (auto) Anion Gap Estim Creat Clear Calc Estimated GFR POC Glucose Random Glucose Osmolality 268 L Calcium Iron TIBC % Saturation Unsat Iron Binding Total Bilirubin Direct Bilirubin AST ALT Alkaline Phosphatase Total Protein Albumin Urine Color Yellow Urine Appearance Clear Urine pH 5.5 Ur Specific [place] 1.010 Urine Protein 100 (2+) H Urine Glucose (UA) 100 H Urine Ketones Negative Urine Blood Negative Urine Nitrite Negative Ur Leukocyte Esterase Trace H Urine RBC 0-2 Urine WBC 0-5 Ur Squamous Epith Cells 11-20 Urine Bacteria None Seen Hyaline Casts 3-5 Granular Casts Present Urine Osmolality Ur Random Sodium COVID-19 (LANCE) Negative COVID-19 trinket Com See Note 03/28/22 03/28/22 03/28/22 18:18 18:18 22:31 MCV MCH MCHC RDW Plt Count MPV Immature Gran % (Auto) Neut % (Auto) Lymph % (Auto) Garvin % (Auto) Eos % (Auto) Baso % (Auto) Lymph # (Auto) Garvin # (Auto) Eos # (Auto) Baso # (Auto) Abs Immat Gran (auto) Absolute Neuts (auto) Absolute Nucleated RBC Nucleated RBC % (auto) Anion Gap Estim Creat Clear Calc Estimated GFR POC Glucose 184 H Random Glucose Osmolality Calcium Iron TIBC % Saturation Unsat Iron Binding Total Bilirubin Direct Bilirubin AST ALT Alkaline Phosphatase Total Protein Albumin Urine Color Urine Appearance Urine pH Ur Specific [place] Urine Protein Urine Glucose (UA) Urine Ketones Urine Blood Urine Nitrite Ur Leukocyte Esterase Urine RBC Urine WBC Ur Squamous Epith Cells Urine Bacteria Hyaline Casts Granular Casts Urine Osmolality 306 L Ur Random Sodium 34.0 COVID-19 (LANCE) COVID-19 Clin Com 03/28/22 03/29/22 03/29/22 22:36 04:42 04:42 MCV 61.5 L Cancelled MCH 19.8 L Cancelled MCHC 32.1 Cancelled RDW 16.7 H Cancelled Plt Count 748 H Cancelled MPV 8.4 L Cancelled Immature Gran % (Auto) 2.5 H Neut % (Auto) 62.5 Lymph % (Auto) 24.3 Garvin % (Auto) 8.3 Eos % (Auto) 1.9 Baso % (Auto) 0.5 Lymph # (Auto) 2.7 Garvin # (Auto) 0.9 Eos # (Auto) 0.2 Baso # (Auto) 0.1 Abs Immat Gran (auto) 0.28 H Absolute Neuts (auto) 6.9 Absolute Nucleated RBC 0.000 Cancelled Nucleated RBC % (auto) 0.0 Cancelled Anion Gap 20 Estim Creat Clear Calc 51.9 Estimated GFR 51 POC Glucose Random Glucose 212 H Osmolality Calcium 8.5 Iron TIBC % Saturation Unsat Iron Binding Total Bilirubin Direct Bilirubin AST ALT Alkaline Phosphatase Total Protein Albumin Urine Color Urine Appearance Urine pH Ur Specific [place] Urine Protein Urine Glucose (UA) Urine Ketones Urine Blood Urine Nitrite Ur Leukocyte Esterase Urine RBC Urine WBC Ur Squamous Epith Cells Urine Bacteria Hyaline Casts Granular Casts Urine Osmolality Ur Random Sodium COVID-19 (LANCE) COVID-19 Clin Com 03/29/22 03/29/22 03/29/22 05:54 05:54 07:11 MCV MCH MCHC RDW Plt Count MPV Immature Gran % (Auto) Neut % (Auto) Lymph % (Auto) Garvin % (Auto) Eos % (Auto) Baso % (Auto) Lymph # (Auto) Garvin # (Auto) Eos # (Auto) Baso # (Auto) Abs Immat Gran (auto) Absolute Neuts (auto) Absolute Nucleated RBC Nucleated RBC % (auto) Anion Gap 18 17 Estim Creat Clear Calc 48.8 48.0 Estimated GFR 48 47 POC Glucose 197 H Random Glucose 278 H 274 H Osmolality Calcium 8.9 9.0 Iron TIBC % Saturation Unsat Iron Binding Total Bilirubin Direct Bilirubin AST ALT Alkaline Phosphatase Total Protein Albumin Urine Color Urine Appearance Urine pH Ur Specific [place] Urine Protein Urine Glucose (UA) Urine Ketones Urine Blood Urine Nitrite Ur Leukocyte Esterase Urine RBC Urine WBC Ur Squamous Epith Cells Urine Bacteria Hyaline Casts Granular Casts Urine Osmolality Ur Random Sodium COVID-19 (LANCE) COVID-19 Deep Nines 03/29/22 03/29/22 03/29/22 08:28 11:16 11:36 MCV MCH MCHC RDW Plt Count MPV Immature Gran % (Auto) Neut % (Auto) Lymph % (Auto) Garvin % (Auto) Eos % (Auto) Baso % (Auto) Lymph # (Auto) Garvin # (Auto) Eos # (Auto) Baso # (Auto) Abs Immat Gran (auto) Absolute Neuts (auto) Absolute Nucleated RBC Nucleated RBC % (auto) Anion Gap 17 17 Estim Creat Clear Calc 51.9 59.5 Estimated GFR 51 60 POC Glucose 201 H Random Glucose 219 H 206 H Osmolality Calcium 9.4 9.4 Iron TIBC % Saturation Unsat Iron Binding Total Bilirubin Direct Bilirubin AST ALT Alkaline Phosphatase Total Protein Albumin Urine Color Urine Appearance Urine pH Ur Specific [place] Urine Protein Urine Glucose (UA) Urine Ketones Urine Blood Urine Nitrite Ur Leukocyte Esterase Urine RBC Urine WBC Ur Squamous Epith Cells Urine Bacteria Hyaline Casts Granular Casts Urine Osmolality Ur Random Sodium COVID-19 (LANCE) COVID-19 Deep Nines 03/29/22 11:36 MCV MCH MCHC RDW Plt Count MPV Immature Gran % (Auto) Neut % (Auto) Lymph % (Auto) Garvin % (Auto) Eos % (Auto) Baso % (Auto) Lymph # (Auto) Garvin # (Auto) Eos # (Auto) Baso # (Auto) Abs Immat Gran (auto) Absolute Neuts (auto) Absolute Nucleated RBC Nucleated RBC % (auto) Anion Gap Estim Creat Clear Calc Estimated GFR POC Glucose Random Glucose Osmolality Calcium Iron 56 TIBC 196 L % Saturation 29 Unsat Iron Binding 140 Total Bilirubin Direct Bilirubin AST ALT Alkaline Phosphatase Total Protein Albumin Urine Color Urine Appearance Urine pH Ur Specific [place] Urine Protein Urine Glucose (UA) Urine Ketones Urine Blood Urine Nitrite Ur Leukocyte Esterase Urine RBC Urine WBC Ur Squamous Epith Cells Urine Bacteria Hyaline Casts Granular Casts Urine Osmolality Ur Random Sodium COVID-19 (LANCE) COVID-19 Clin Com Assessment and Plan (1) Acute hyponatremia: Status: Acute (2) Weakness: Status: Acute (3) Microcytic hypochromic anemia: Status: Acute (4) Dizziness: Status: Acute (5) Obesity: Status: Acute Plan 56 yo F with hx of DM, HTN, CKD presents to the hospital with weakness found to have hyponatremia # acute hyponatremia possible secondary to exccessive water intake - pt appears euvolemic, but still dizzy/? possible ataxia - has a serum osm of 268, with urine Osm of 306 and urine Na 34 - Will place on fluid restriction - Nephrology inputappreciated -sodium improving # weakness, dizziness unclear etiology possible multifactorial-decreased p.o. and intake, hyponatremia,? Patient still feel dizzy even with improvement in hyponatremia-will add mri neurology eval . # chronic ulcer of right foot - no evidence of acute infectin - continue oral abx for another 3 days to have completed 10 day oral abx course # DM - hold oral antihyperglycemics - LDSSI, diabetic diet # HTN - stable - continue lisinopril # CKD - stable Chronic anemia with down trending H&H: Follows up with Hematology out patiently with Procrit Will add Procrit Repeat H&H seems stable around 7.5/24.4 anemia workup/fobt, type and cross patient wants to defer transfusion for now obesity : weight loss advised. dvt prophylax: mech devices due to anemia Quality Stroke Does the patient have a stroke diagnosis?: No VTE Prior VTE?: No VTE Risk Level:: Medical - moderate - high VTE Device Contraindication: Treatment Not Indicated VTE Drug Contraindication: N/A - Med Ordered
[2022-03-29] MEDS: Famotidine 20 MG TABLET PO ×2 (12:51→20:14)
[2022-03-29 13:12] LABS: Folate > 20.0 ng/mL (> or = 4.0); Vitamin B12 752 pg/mL (200-900)
--- NOTE | 2022-03-29 14:11 | MHC.CM.PN ---
Addendum entered by Safia Hurtado 03/29/22 14:25: IMM DELIVERED 03/29/22 Original Note: EMR REVIEWED CM MET WITH PATIENT WHO LIVES IN AN APT. W/3 ADULT CHILDREN. PT HAS NO HOME SERVICES AND USES A WALKER AND SHOPPING CART FOR MOBILITY. PT STATES HER DAUGHTER JERRI IS HER HCP AND BELIEVES HER PCP OFFICE HAS A COPY. CM WILL REACH OUT TO PCP OFFICE TO REQUEST A COPY TO BE FAXED. PCP IS LEIA CARTER AT [facility]. SHE HAS NOT BEEN VACCINATED FOR COVID. PT HAS TRANSPORTATION THROUGH [facility], CONFIRMED WITH [facility]. TRANSPORTATION WILL NEED TO BE BOOKED THROUGH [facility] ON DC
--- NOTE | 2022-03-29 14:53 | P.CNNE_ITS ---
History of Present Illness Data of Consult Service Date: 03/29/22 Primary Care Provider: TAMY Ram HPI Reason for consult: Dizziness 56 years old woman with diabetes and diabetic foot ulcer who I was asked to see for dizziness and unsteadiness. She said that this started few days ago and she was not febrile or having any cold or flu but was unsteady. This morning she felt much better and now was able to get out of bed and sit in a chair. There was no injury headache or neck pain. Review of Systems Review of Systems: Recent foot infection treated with antibiotics [facility] Past Medical History Medical History Arthritis Carpal tunnel syndrome Degenerative joint disease of spine Hypertension Leukocytosis Osteomyelitis Osteoporosis Peripheral neuropathy Prolapsed uterus Rectal prolapse Retinopathy Toe ulcer due to DM Family History Family History Maternal Grandmother Diabetes Maternal Grandfather Heart disease Cancer of unknown origin Mother HTN (hypertension) Paternal Uncle Thalassemia Surgical History Surgical History H/O dilation and curettage Social History Social History Household Members: Children Housing: Apartment Are you a primary care support representative to a significant other at home: No Do you presently have visiting nurse or other home services: No Alcohol intake: never Patient Tobacco Use Status: Never used Tobacco Second Hand Smoke Exposure: No service: No Current occupational status: disabled Meds Allergies Allergy/AdvReac Type Severity Reaction Status Date / Time No Known Allergies Allergy Unknown UNKNOWN Verified 02/06/22 10:49 [NO KNOWN ALLERGIES] Active Medications: Current Medications Acetaminophen (Acetaminophen 325 Mg Tablet) 650 mg PO Q6H PRN PRN Reason: Pain, Mild (Pain Scale 1-3) Aspirin (Aspirin Enteric Coated 81 Mg Tablet.) 81 mg PO DAILY [facility] Last Admin: 03/29/22 08:26 Dose: 81 mg Atorvastatin Calcium (Atorvastatin Calcium 40 Mg Tablet) 40 mg PO DAILY [facility] Last Admin: 03/29/22 08:26 Dose: 40 mg Cefuroxime Axetil (Cefuroxime Axetil 250 Mg Tablet) 250 mg PO BID [facility] Last Admin: 03/29/22 08:26 Dose: 250 mg Clopidogrel Bisulfate (Clopidogrel Bisulfate 75 Mg Tablet) 75 mg PO DAILY [facility] Last Admin: 03/29/22 08:26 Dose: 75 mg Dextrose (Dextrose 50 % 25 Gm/50 Ml Syringe) 25 gm IVPUSH Q15M PRN; Protocol PRN Reason: per Hypoglycemia Standing Ord. Docusate Sodium (Docusate Sodium 100 Mg Capsule) 100 mg PO DAILY PRN PRN Reason: Constipation Famotidine (Famotidine 20 Mg Tablet) 20 mg PO BID [facility] Last Admin: 03/29/22 12:51 Dose: 20 mg Folic Acid (Folic Acid 1 Mg Tablet) 1 mg PO DAILY [facility] Last Admin: 03/29/22 08:26 Dose: 1 mg Glucose (Glucose Gel 15 Gm Gel..Gram.) 15 gm PO Q15M PRN; Protocol PRN Reason: per Hypoglycemia Standing Ord. Heparin Sodium (Porcine) (Heparin Sodium,Porcine 5,000 Unit/Ml Vial) 5,000 unit SUBCUT Q12H [facility] Last Admin: 03/29/22 08:26 Dose: 5,000 unit Insulin Glargine (Insulin Glargine,Hum.Rec.Anlog 100 Unit/Ml 10 Ml Vial) 40 unit SUBCUT DAILY [facility] Last Admin: 03/29/22 08:25 Dose: 40 unit Insulin Human Lispro (Insulin Lispro 100 Unit/Ml 3 Ml Vial) 0 unit SUBCUT QIDACHS [facility]; Protocol Last Admin: 03/29/22 12:51 Dose: 4 unit Lidocaine (Lidocaine 4 % Patch Adh..Patch) 1 patch TRANSDERMA DAILY [facility] Last Admin: 03/29/22 08:26 Dose: 1 patch Ondansetron HCl (Ondansetron Hcl 4 Mg/2 Ml Vial) 4 mg IVPUSH Q8H PRN PRN Reason: Nausea and Vomiting Silver Sulfadiazine (Silver Sulfadiazine 1 % Cream 25 Gm Cream..G.) 1 appl TOPICAL DAILY [facility] Last Admin: 03/29/22 13:26 Dose: 1 appl Sodium Chloride (0.9 % Sodium Chloride Flush 3 Ml Syringe) 3 ml IVFLUSH QSHIFT [facility] Last Admin: 03/29/22 07:23 Dose: 3 ml Vitamin D (Cholecalciferol (Vitamin D3) 25 Mcg Tablet) 25 mcg PO DAILY [facility] Last Admin: 03/29/22 08:26 Dose: 25 mcg Home Medications Medication Instructions Recorded Confirmed Last Taken Type aspirin 81 mg tablet,delayed 1 tab PO DAILY 07/02/21 03/28/22 03/28/22 History release atorvastatin 40 mg tablet 1 tab PO DAILY 07/02/21 03/28/22 03/28/22 History cholecalciferol (vitamin D3) 25 1 tab PO DAILY 07/02/21 03/28/22 03/28/22 History mcg (1,000 unit) tablet insulin glargine 100 unit/mL (3 40 unit subcut DAILY 07/02/21 03/28/22 03/28/22 History mL) subcutaneous pen (Lantus Solostar U-100 Insulin) metformin 1,000 mg tablet 1 tab PO BID 07/02/21 03/28/22 03/28/22 History blood sugar diagnostic (FreeStyle #10 ea 09/18/21 01/16/22 Unknown History Lite Strips) lancets 33 gauge (TRUEplus Lancets) #100 ea 09/18/21 01/16/22 Unknown History pen needle, diabetic 31 gauge x #1,200 ea 09/18/21 01/16/22 Unknown History 16 (UltiCare Pen Needle) bacitracin 500 unit/gram topical 1 appl topical TID 12/19/21 03/28/22 03/28/22 History ointment silver sulfadiazine 1 % topical 1 appl topical DAILY 01/15/22 03/28/22 03/28/22 History cream cefuroxime axetil 250 mg tablet 1 tab PO BID 03/28/22 03/28/22 03/28/22 History Physical Exam Vital Signs: Vital Signs: Last Vital Signs Temp 98.2 F 03/29/22 10:48 Pulse 84 03/29/22 11:06 Resp 18 03/29/22 10:48 BP 141/67 H 03/29/22 11:06 Pulse Ox 99 03/29/22 11:06 O2 Del Method 03/29/22 10:48 BMI result Body Mass Index 34.2 Neuro: Other: She was alert and awake with normal spontaneity of speech fluency comprehension and affect. Face was symmetrical. [id number] testing was normal. Deep tendon reflexes were trace to absent with flexor plantars. She was able to get up and walk in a cautious gait. Speech was normal Results Labs CBC & Chem 7: 03/29/22 11:36 03/29/22 11:36 Labs: Short CBC 03/28/22 03/29/22 03/29/22 Range/Units 16:21 04:42 04:42 WBC 13.3 H 11.0 H Cancelled (4.8-10.8) X10*3/uL Hgb 8.4 L 7.2 L Cancelled (12.0-16.0) g/dl Hct 26.5 L 22.4 L Cancelled (37.0-47.0) % Plt Count 905 H D 748 H Cancelled (160-400) X10*3/uL 03/29/22 Range/Units 11:36 WBC (4.8-10.8) X10*3/uL Hgb 7.5 L (12.0-16.0) g/dl Hct 24.4 L (37.0-47.0) % Plt Count (160-400) X10*3/uL BMP 03/28/22 03/28/22 03/29/22 16:21 22:36 05:54 Sodium 125 L 126 L 129 L Potassium 4.1 4.5 4.4 Chloride 87 L 90 L 93 L Carbon Dioxide 24 21 L 22 BUN 17 H D 19 H 20 H Creatinine 0.94 1.10 1.17 Calcium 8.8 D 8.5 8.9 03/29/22 03/29/22 03/29/22 05:54 08:28 09:50 Sodium 129 L 132 L 131 L Potassium 4.4 4.1 Chloride 93 L 95 L Carbon Dioxide 23 24 BUN 20 H 19 H Creatinine 1.19 1.10 Calcium 9.0 9.4 03/29/22 11:36 Sodium 131 L Potassium 4.0 Chloride 94 L Carbon Dioxide 24 BUN 19 H Creatinine 0.96 Calcium 9.4 Liver Function 03/28/22 Range/Units 16:21 Total Bilirubin 0.3 (0.0-1.0) mg/dL Direct Bilirubin 0.2 (0.0-0.5) mg/dL AST 16 D (5-31) U/L ALT 21 (0-31) U/L Alkaline Phosphatase 172 H D (39-117) U/L Albumin 3.5 (3.5-5.0) g/dL Urine 03/28/22 Range/Units 18:18 Urine Color Yellow Urine Appearance Clear Urine pH 5.5 (5.0-9.0) Ur Specific [place] 1.010 (1.005-1.025) Urine Protein 100 (2+) H (Neg-Trace) mg/dL Urine Glucose (UA) 100 H (Negative) mg/dL MRI and MRA of brain did not reveal any acute pathology. Mild microvascular ischemic changes were noted Assessment and Plan (1) Dizziness: Status: Acute 56 years old woman with dizziness and unsteadiness probably from multiple metabolic reasons with no evidence of any acute brain pathology. At this time continuing of electrolyte management hydration and infection is recommended Procedures Date of Service Date of Service: 03/29/22
[2022-03-29 16:04] LABS: Glucose, Whole Blood 230 mg/dL (60-115)
[2022-03-29 19:39] LABS: Glucose, Whole Blood 162 mg/dL (60-115)
[2022-03-30] VITALS (7 sets, daily range): BP systolic 122–162; BP diastolic 59–76; PULSE 85–102; RESP 14–18; TEMP 36.3–36.9; O2SAT 97–99
--- NOTE | 2022-03-30 00:50 | PM.CNNEP ---
History of Present Illness Reason for Consult Consult date: 03/29/22 Reason for consult: hypoNatremia Chief Complaint Chief complaint: Hyponatremia History of Present Illness Narrative: Full consult dictated In SUmmary 56 y/o DM adm c/o dizzyness and feeling unwell noted SNa 125 and h/o recurrent hypoNa NOTon Thiazide diuretci. Adm to drinking lots of water routinely. Sna has incr to 131 without any specific Tx other than PO fluid restiction. BS remain high 200 range and Uosm 300 Euvolemic HypoNa:suspet d/t excess po fluid intake and hyperglycemia whcih is preventing dilute urine excretion but need to r/o other causes such as: hypothyroid and adrenalminsuff. REC: labs as noted and cont P fluid restriction Will follow with team PMF Past Medical History Medical History Acid reflux Anemia in chronic kidney disease (CKD) Arthritis Below-knee amputation of left lower extremity with complication Carpal tunnel syndrome Chronic ulcer of right foot Degenerative joint disease of spine Essential hypertension Hypertension Irritable bowel syndrome Leukocytosis Microcytic hypochromic anemia Obesity Osteomyelitis Osteoporosis PAD (peripheral artery disease) Peripheral neuropathy Peripheral vascular disease Prolapsed uterus Rectal prolapse Retinopathy Toe ulcer due to DM Family History Family History Maternal Grandmother Diabetes Maternal Grandfather Heart disease Cancer of unknown origin Mother HTN (hypertension) Paternal Uncle Thalassemia Surgical History Surgical History H/O dilation and curettage Social History Social History Household Members: Children Household Members Other:: 4 Housing: Apartment Are you a primary nurse wound care to a significant other at home: No Do you presently have visiting nurse or other home services: No Unable to assess alcohol history related to: Unknown Alcohol intake: never Patient Tobacco Use Status: Never used Tobacco Second Hand Smoke Exposure: No Use of substances other than those prescribed or required for medical reasons: No Have you been hit, kicked, punched, or otherwise hurt by someone within the past year? If so, by whom?: No Do you have thoughts of harming others: None Do you have a plan to hurt others: No Plan Do you have the means to hurt others: No Recently lost weight without trying: No Patient : No service: No Current occupational status: disabled Meds Allergies Allergy/AdvReac Type Severity Reaction Status Date / Time No Known Allergies Allergy Unknown UNKNOWN Verified 11/20/22 15:48 [NO KNOWN ALLERGIES] Active Medications: Current Medications Acetaminophen (Acetaminophen 325 Mg Tablet) 650 mg PO Q6H PRN PRN Reason: Pain, Mild (Pain Scale 1-3) Aspirin (Aspirin Enteric Coated 81 Mg Tablet.Dr) 81 mg PO DAILY [facility] Last Admin: 03/29/22 08:26 Dose: 81 mg Atorvastatin Calcium (Atorvastatin Calcium 40 Mg Tablet) 40 mg PO DAILY [facility] Last Admin: 03/29/22 08:26 Dose: 40 mg Cefuroxime Axetil (Cefuroxime Axetil 250 Mg Tablet) 250 mg PO BID [facility] Last Admin: 03/29/22 20:14 Dose: 250 mg Clopidogrel Bisulfate (Clopidogrel Bisulfate 75 Mg Tablet) 75 mg PO DAILY [facility] Last Admin: 03/29/22 08:26 Dose: 75 mg Dextrose (Dextrose 50 % 25 Gm/50 Ml Syringe) 25 gm IVPUSH Q15M PRN; Protocol PRN Reason: per Hypoglycemia Standing Ord. Docusate Sodium (Docusate Sodium 100 Mg Capsule) 100 mg PO DAILY PRN PRN Reason: Constipation Famotidine (Famotidine 20 Mg Tablet) 20 mg PO BID [facility] Last Admin: 03/29/22 20:14 Dose: 20 mg Folic Acid (Folic Acid 1 Mg Tablet) 1 mg PO DAILY [facility] Last Admin: 03/29/22 08:26 Dose: 1 mg Glucose (Glucose Gel 15 Gm Gel..Gram.) 15 gm PO Q15M PRN; Protocol PRN Reason: per Hypoglycemia Standing Ord. Heparin Sodium (Porcine) (Heparin Sodium,Porcine 5,000 Unit/Ml Vial) 5,000 unit SUBCUT Q12H [facility] Last Admin: 03/29/22 08:26 Dose: 5,000 unit Insulin Glargine (Insulin Glargine,Hum.Rec.Anlog 100 Unit/Ml 10 Ml Vial) 40 unit SUBCUT DAILY [facility] Last Admin: 03/29/22 08:25 Dose: 40 unit Insulin Human Lispro (Insulin Lispro 100 Unit/Ml 3 Ml Vial) 0 unit SUBCUT QIDACHS [facility]; Protocol Last Admin: 03/29/22 20:14 Dose: 2 unit Lidocaine (Lidocaine 4 % Patch Adh..Patch) 1 patch TRANSDERMA DAILY [facility] Last Admin: 03/29/22 08:26 Dose: 1 patch Ondansetron HCl (Ondansetron Hcl 4 Mg/2 Ml Vial) 4 mg IVPUSH Q8H PRN PRN Reason: Nausea and Vomiting Silver Sulfadiazine (Silver Sulfadiazine 1 % Cream 25 Gm Cream..G.) 1 appl TOPICAL DAILY [facility] Last Admin: 03/29/22 13:26 Dose: 1 appl Sodium Chloride (0.9 % Sodium Chloride Flush 3 Ml Syringe) 3 ml IVFLUSH QSHIFT [facility] Last Admin: 03/29/22 20:14 Dose: 3 ml Vitamin D (Cholecalciferol (Vitamin D3) 25 Mcg Tablet) 25 mcg PO DAILY [facility] Last Admin: 03/29/22 08:26 Dose: 25 mcg Home Medications Medication Instructions Recorded Confirmed Last Taken Type cholecalciferol (vitamin D3) 25 1 tab PO DAILY 07/02/21 11/20/22 08/14/22 History mcg (1,000 unit) tablet metformin 1,000 mg tablet 1 tab PO BID 07/02/21 11/20/22 08/14/22 History blood sugar diagnostic (FreeStyle #10 ea 09/18/21 11/20/22 05/11/22 History Lite Strips) lancets 33 gauge (TRUEplus Lancets) #100 ea 09/18/21 11/20/22 05/11/22 History pen needle, diabetic 31 gauge x #1,200 ea 09/18/21 11/20/22 05/11/22 History 5/16 (UltiCare Pen Needle) empagliflozin 25 mg tablet 25 mg PO DAILY 06/13/22 11/20/22 08/14/22 History (Jardiance) ezetimibe 10 mg tablet 10 mg PO DAILY 06/13/22 11/20/22 08/14/22 History pantoprazole 40 mg tablet,delayed 40 mg PO BEDTIME 06/13/22 11/20/22 08/14/22 History release pioglitazone 15 mg tablet 15 mg PO DAILY 06/13/22 11/20/22 08/14/22 History insulin glargine 100 unit/mL (3 40 unit subcut DAILY 08/15/22 11/20/22 08/14/22 History mL) subcutaneous pen (Lantus Solostar U-100 Insulin) lidocaine 5 % topical patch 1 patch topical DAILY 08/15/22 11/20/22 08/14/22 History magnesium oxide 400 mg (241.3 mg 400 mg PO TID 08/15/22 11/20/22 08/14/22 History magnesium) tablet aspirin 81 mg tablet,delayed 81 mg PO DAILY 09/11/22 11/20/22 Unknown History release Physical Exam Vital Signs: Last Vital Signs Temp 97.8 F 03/29/22 23:46 Pulse 84 03/29/22 23:46 Resp 18 03/29/22 23:46 BP 147/70 H 03/29/22 23:46 Pulse Ox 98 03/29/22 23:46 O2 Del Method 03/29/22 23:46 BMI result Body Mass Index 34.2 Results Lab Results 03/31/22 05:07 03/30/22 08:06 Lab results: Chemistry 03/28/22 03/28/22 03/29/22 16:21 22:36 05:54 Sodium 125 L 126 L 129 L Potassium 4.1 4.5 4.4 Carbon Dioxide 24 21 L 22 BUN 17 H D 19 H 20 H Creatinine 0.94 1.10 1.17 Calcium 8.8 D 8.5 8.9 03/29/22 03/29/22 03/29/22 05:54 08:28 09:50 Sodium 129 L 132 L 131 L Potassium 4.4 4.1 Carbon Dioxide 23 24 BUN 20 H 19 H Creatinine 1.19 1.10 Calcium 9.0 9.4 03/29/22 11:36 Sodium 131 L Potassium 4.0 Carbon Dioxide 24 BUN 19 H Creatinine 0.96 Calcium 9.4 Hematology 03/28/22 03/29/22 03/29/22 16:21 04:42 04:42 WBC 13.3 H 11.0 H Cancelled Hgb 8.4 L 7.2 L Cancelled Plt Count 905 H D 748 H Cancelled 03/29/22 11:36 WBC Hgb 7.5 L Plt Count Urinalysis 03/28/22 18:18 Urine Color Yellow Urine Appearance Clear Urine pH 5.5 Ur Specific [place] 1.010 Urine Protein 100 (2+) H Urine Glucose (UA) 100 H Urine Ketones Negative Urine Blood Negative Urine Nitrite Negative Ur Leukocyte Esterase Trace H Urine RBC 0-2 Urine WBC 0-5 Ur Squamous Epith Cells 11-20 Hyaline Casts 3-5 Urine Studies 03/28/22 18:18 Urine Osmolality 306 L
[2022-03-30 07:22] LABS: TSH reflex Free T4 1.28 uIU/mL (0.32-4.0)
[2022-03-30 07:35] LABS: Glucose, Whole Blood 274 mg/dL (60-115)
[2022-03-30] MEDS: Insulin Lispro 100 UNIT/ML 3 ML VIAL SUBCUT ×4 (07:54→20:57)
[2022-03-30] MEDS: Lidocaine 4 % Patch ADH..PATCH 1 PATCH TRANSDERMA (07:55)
[2022-03-30] MEDS: Insulin Glargine,Hum.rec.anlog 100 UNIT/ML 10 ML VIAL 40 UNIT SUBCUT (07:55)
[2022-03-30] MEDS: 0.9 % Sodium Chloride Flush 3 ML SYRINGE IVFLUSH ×3 (07:56→20:58)
[2022-03-30] MEDS: Folic Acid 1 MG TABLET PO (07:56)
[2022-03-30] MEDS: lisinopriL 20 MG TABLET PO (07:56)
[2022-03-30] MEDS: Clopidogrel Bisulfate 75 MG TABLET PO (07:56)
[2022-03-30] MEDS: Cholecalciferol (Vitamin D3) 25 MCG TABLET PO (07:56)
[2022-03-30] MEDS: Famotidine 20 MG TABLET PO ×2 (07:56→20:57)
[2022-03-30] MEDS: Atorvastatin Calcium 40 MG TABLET PO (07:56)
[2022-03-30 08:08] LABS: Cortisol Random 20.6 ug/dL
[2022-03-30 08:41] LABS: Anion Gap 19 (12-20); Blood Urea Nitrogen 19 mg/dL (9-16); Calcium 9.6 mg/dL (8.4-10.2); Carbon Dioxide 23 mmol/L (22-29); Chloride 98 mmol/L (96-108); Creatinine Clr Calc Pharmacy 58.9; Estimated Glomerular Filt Rate 59; Glucose Random 312 mg/dL (60-115); Potassium 4.7 mmol/L (3.3-5.1); Sodium 135 mmol/L (135-145)
[2022-03-30 09:25] LABS: Hematocrit 24.6 % (37.0-47.0); Hemoglobin 7.6 g/dl (12.0-16.0)
[2022-03-30 11:25] LABS: Glucose, Whole Blood 232 mg/dL (60-115)
--- NOTE | 2022-03-30 12:57 | CONS_ITS ---
DATE OF SERVICE: 03/29/2022 REASON FOR CONSULTATION: I was asked to see the patient to assist in evaluation and management of patient's recurrent hyponatremia with a serum sodium of 125 on admission that is now gradually increased to 131. HISTORY OF PRESENT ILLNESS: In summary, she is a 56-year-old diabetic, who has had recurrent episodes of hyponatremia, who presented to the hospital complaining of dizziness, unsteadiness, and generalized weakness. She has a history of hypertension, diabetes, irritable bowel syndrome, osteomyelitis, neuropathy, retinopathy, and as mentioned, recurrent episodes of hyponatremia. The patient states that she drinks a lot of water as routine to keep self hydrated. PAST MEDICAL HISTORY: As mentioned. MEDICATIONS: On admission are noted in the admitting notes and in particular, she is not on a thiazide diuretic. Current medications are noted in the MAR. ALLERGIES: SHE HAS NO KNOWN DRUG ALLERGIES. SOCIAL HISTORY: She is a nonsmoker, nondrinker. No illicit drug use. REVIEW OF SYSTEMS: As noted above. PHYSICAL EXAMINATION: VITAL SIGNS: Blood pressure of 120/70, heart rate in the 70s. HEENT: Head is atraumatic and normocephalic. NECK: Supple. Mucous membranes are moist. LUNGS: Clear. CARDIAC: Regular rate and rhythm without rub. ABDOMEN: Soft, nontender. Good bowel sounds. No CVA tenderness. EXTREMITIES: Show no edema. LABORATORY DATA: Shows serum sodium of 125 on admission yesterday 12:20 p.m. She has had multiple repeat serum sodiums, most recent one was 131 at 9:50 a.m. Her blood sugars have been around 200. Her BUN is 19, creatinine 0.96, blood sugar 206, and calcium 9.4. Hemoglobin 7.2, hematocrit 22.4, white blood cell count 11.0, and platelet count 748. Iron saturation 29%. Urine studies showed 2+ protein. Urine osmolality 306, urine sodium of 34. IMPRESSION: A 56-YEAR-OLD DIABETIC ADMITTED WITH UNSTEADINESS, GENERALIZED WEAKNESS, ANEMIA, AND RECURRENT HYPONATREMIA. 1. Euvolemic hyponatremia. Serum sodium has already improved from 125 now to 131. She is not on a thiazide diuretic. She does have excessive free water intake, this may be playing a role along with her underlying diabetes and inability to dilute her urine because of the high sugars causing an osmotic diuresis. The serum sodium has improved simply with p.o. fluid restriction. Need to rule out underlying hypothyroidism as well as adrenal insufficiency. We will also rule out underlying dysproteinemia such as multiple myeloma, which could cause her anemia and also cause pseudohyponatremia from hypoproteinemia state. 2. Anemia. She is having further evaluation for this. 3. Diabetes. SUGGESTIONS: At this time include continue p.o. fluid restriction. We will check TSH and cortisol level. We will send serum immunofixation as well as free kappa lambda. We will follow patient closely with team. MD LAKEISHA Gonzalez/ALINE / [phone]
--- NOTE | 2022-03-30 15:23 | P.PNIM_ITS ---
Subjective Subjective Date of Service: 03/31/22 Interval History: dizziness improving anemia Review of Systems generally very weak Denies any nausea vomiting or abdominal pain Physical Exam Vital Signs: Vital Signs: Last Vital Signs Temp 98.1 F 03/30/22 15:12 Pulse 89 03/30/22 15:12 Resp 17 03/30/22 15:12 BP 144/66 H 03/30/22 15:12 Pulse Ox 98 03/30/22 15:12 O2 Del Method 03/30/22 15:12 BMI result Body Mass Index 34.2 Appearance: Alert.? Oriented X3.? not in distress.? cvs: rrr, [id number] . res: clear to auscultation ,no rhonchii or wheezing abd: no rebound or guarding ,nt, bs present. ext pulses present , no cyanosis . neuro: axo3 , nonfocal. Objective Data Active Medications Acetaminophen (Acetaminophen 325 Mg Tablet) 650 mg PO Q6H PRN PRN Reason: Pain, Mild (Pain Scale 1-3) Aspirin (Aspirin Enteric Coated 81 Mg Tablet.) 81 mg PO DAILY [facility] Last Admin: 03/29/22 08:26 Dose: 81 mg Documented By: HESHAM Atorvastatin Calcium (Atorvastatin Calcium 40 Mg Tablet) 40 mg PO DAILY [facility] Last Admin: 03/30/22 07:56 Dose: 40 mg Documented By: DAYANNA Cefuroxime Axetil (Cefuroxime Axetil 250 Mg Tablet) 250 mg PO BID [facility] Last Admin: 03/30/22 07:56 Dose: 250 mg Documented By: DAYANNA Dextrose (Dextrose 50 % 25 Gm/50 Ml Syringe) 25 gm IVPUSH Q15M PRN; Protocol PRN Reason: per Hypoglycemia Standing Ord. Docusate Sodium (Docusate Sodium 100 Mg Capsule) 100 mg PO DAILY PRN PRN Reason: Constipation Famotidine (Famotidine 20 Mg Tablet) 20 mg PO BID [facility] Last Admin: 03/30/22 07:56 Dose: 20 mg Documented By: DAYANNA Folic Acid (Folic Acid 1 Mg Tablet) 1 mg PO DAILY [facility] Last Admin: 03/30/22 07:56 Dose: 1 mg Documented By: DAYANNA Glucose (Glucose Gel 15 Gm Gel..Gram.) 15 gm PO Q15M PRN; Protocol PRN Reason: per Hypoglycemia Standing Ord. Heparin Sodium (Porcine) (Heparin Sodium,Porcine 5,000 Unit/Ml Vial) 5,000 unit SUBCUT Q12H [facility] Last Admin: 03/29/22 08:26 Dose: 5,000 unit Documented By: HESHAM Insulin Glargine (Insulin Glargine,Hum.Rec.Anlog 100 Unit/Ml 10 Ml Vial) 40 un it SUBCUT DAILY [facility] Last Admin: 03/30/22 07:55 Dose: 40 unit Documented By: DAYANNA Insulin Human Lispro (Insulin Lispro 100 Unit/Ml 3 Ml Vial) 0 unit SUBCUT QIDACHS [facility]; Protocol Last Admin: 03/30/22 11:39 Dose: 4 unit Documented By: DAYANNA Lidocaine (Lidocaine 4 % Patch Adh..Patch) 1 patch TRANSDERMA DAILY [facility] Last Admin: 03/30/22 07:55 Dose: 1 patch Documented By: DAYANNA Lisinopril (Lisinopril 20 Mg Tablet) 20 mg PO DAILY [facility]; Protocol Last Admin: 03/30/22 07:56 Dose: 20 mg Documented By: DAYANNA Omeprazole (Omeprazole 20 Mg Capsule.Dr) 20 mg PO BID@0630,1630 [facility] Ondansetron HCl (Ondansetron Hcl 4 Mg/2 Ml Vial) 4 mg IVPUSH Q8H PRN PRN Reason: Nausea and Vomiting Silver Sulfadiazine (Silver Sulfadiazine 1 % Cream 25 Gm Cream..G.) 1 appl TOPICAL DAILY [facility] Last Admin: 03/30/22 07:57 Dose: 1 appl Documented By: DAYANNA Sodium Chloride (0.9 % Sodium Chloride Flush 3 Ml Syringe) 3 ml IVFLUSH QSHIFT [facility] Last Admin: 03/30/22 07:56 Dose: 3 ml Documented By: DAYANNA Vitamin D (Cholecalciferol (Vitamin D3) 25 Mcg Tablet) 25 mcg PO DAILY [facility] Last Admin: 03/30/22 07:56 Dose: 25 mcg Documented By: DAYANNA Labs CBC & Chem 7: 03/31/22 05:07 03/30/22 08:06 Labs: Laboratory Results - last 24 hr 03/29/22 03/29/22 03/30/22 15:08 19:18 05:16 Anion Gap Estim Creat Clear Calc Estimated GFR POC Glucose 230 H 162 H Random Glucose Calcium TSH 1.28 Random Cortisol 03/30/22 03/30/22 03/30/22 05:16 07:31 08:06 Anion Gap 19 Estim Creat Clear Calc 58.9 Estimated GFR 59 POC Glucose 274 H Random Glucose 312 H Calcium 9.6 TSH Random Cortisol 20.6 03/30/22 11:04 Anion Gap Estim Creat Clear Calc Estimated GFR POC Glucose 232 H Random Glucose Calcium TSH Random Cortisol Assessment and Plan (1) Acute hyponatremia: Status: Acute (2) Weakness: Status: Acute (3) PAD (peripheral artery disease): Status: Acute (4) Anemia in chronic kidney disease (CKD): Status: Acute Plan 56 yo F with hx of DM, HTN, CKD presents to the hospital with weakness found to have hyponatremia # acute hyponatremia possible? secondary to exccessive water intake - pt appears euvolemic, but still dizzy/? possible ataxia - has a serum osm of 268, with urine Osm of 306 and urine Na 34 - Will place on fluid restriction - Nephrology inputappreciated -sodium improving # weakness, dizziness unclear etiology possible multifactorial-decreased p.o. and intake, hyponatremia,?? Patient still feel dizzy even with improvement in hyponatremia-will add mri neurology eval . # chronic ulcer of right foot - no evidence of acute infectin - continue oral abx for another 3 days to have completed 10 day oral abx course # DM - hold oral antihyperglycemics - LDSSI, diabetic diet # HTN - stable - continue lisinopril # CKD - stable Chronic anemia with down trending H&H:? Follows up with Hematology out patiently with Procrit s/p Procrit day2 Repeat H&H seems stable around 7.5/24.4 anemia workup-noted -possible iron def/acd patient wants to defer transfusion for now Gi eval added,as per patient her fobt recently pcp office neg -they defer colonoscopy but unclear if she needs egd. obesity : weight loss advised. pad: d/w vascular -no need of plavix ,continue asa. dvt prophylax: mech devices due to anemia inpatient need: dizziness -wrokup and nuerology eval,anemia workup pending Quality Stroke Does the patient have a stroke diagnosis?: No VTE Prior VTE?: No VTE Risk Level:: Medical - moderate - high VTE Device Contraindication: Treatment Not Indicated VTE Drug Contraindication: N/A - Med Ordered
[2022-03-30 16:02] LABS: Glucose, Whole Blood 217 mg/dL (60-115)
--- NOTE | 2022-03-30 16:41 | PM.GICN ---
History of Present Illness Data of Consult Service Date: 03/30/22 Requesting physician: Diana Rodriguez Primary Care Provider: TAMY Ram HPI Reason for consult: worsening anemia 56 YF with diabetes, CKD, P 80, HTN, IBS seen at [facility] on 03/28/22 with dizziness, unsteadiness, and generalized weakness.? Pt reported that she had been so weak for the past 3 days that she has been bed-bound and unable to get out of bed.? She was noted to ambulate few steps/feet around her house.? Patient reported that she had an infection in the toe that is chronic and has been followed by in wound care. About 7 days ago she was noted to have worsening infection and was started on oral antibiotics and reports significant improvement in the toe with no pain, no erythema, and no swelling.? Patient denied abd pain, nausea or vomiting, diarrhea or constipation. She denied headaches, change in vision, numbness, weakness or tingling, chest pain or shortness of breath.? No urinary symptoms and no lower extremity edema.? Patient reports that she has been anemic her entire life and was dxed with DM 24 yrs (during a ) She has been followed by Dr. Mattson in Hematology for anemia of chronic disease and is being treated with Procrit injections prn for Hb < 10 gms every 2 weeks. Patient complains of intermittent abdominal pain for the past several months - feels like broken glass shredding her stomach. Pain gets worse with eating. She complains of GERD with regurgitation of food. She was diagnosed with IBS and has uterine and rectal prolapse. Her BM varies between diarrhea with 3-4 BMs per day alternating with constipation. Pt denies black stools or blood in the stool. (pt reports that her stool test were negative for blood in the past) She also complains of generalized aches and pains associated with increased weakness. She denies significant change in her appetite or weight. Patient denies symptoms of heartburn, dysphagia, nausea, vomiting, change in appetite or weight. Denies recent change in bowel habits, constipation, diarrhea, black stools or rectal bleeding. Patient has bronchitis, stage 4 kidney disease and snores since childhood and denies major cardiac problems Pt was diagnosed with PVD on agiography in 10/2021 Vascular surgeon notes reviewed and need to stay on Plavix for another month because of recent angioplasty and PVD and can be switched to aspirin after that. Pt has been following with the? wound care center for ulcers in bilateral feet.? Denies problems with anesthesia in the past. Denies being on chronic anticoagulation - used Motrin in the past Her LMP was 3 yrs ago. Pt denies smoking or ETOH abuse. Pt is single, has 11 children and 9 grandkids. She lives with 3 of her adult children. 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 Patient reports that she drinks about 5-6 bottles of water daily to stay hydrated given her diabetes.? She reports that if she drinks less than that she feels that her mouth is dry all the time.? She denies any other changes to her medications.? On arrival to the ED patient hemodynamically stable with no significant abnormal vitals Labs are significant for? WBC count of 13.3 (chronically elevated) , glucose of 8.4 which is around her baseline, Hct 26.5, MCV of 60.6, has a sodium of 125 baseline around 135, potassium 48.1, chloride of 87, BUN of 17, creatinine of 0.94, serum osmolality of 268, urine negative for infection, urine osmolality of 306, and urine sodium of 34 IMAGING STUDIES: ABD US IN 2016 SHOWED: Multiple mobile gallstones. PAST EGD/COLONOSCOPY: None Review of Systems Review of Systems: Recent foot infection treated with antibiotics Yes all other systems are reviewed and are negative PMFSH Past Medical History Medical History Arthritis Carpal tunnel syndrome Degenerative joint disease of spine Hypertension Leukocytosis Osteomyelitis Osteoporosis Peripheral neuropathy Prolapsed uterus Rectal prolapse Retinopathy Toe ulcer due to DM Family History Family History Maternal Grandmother Diabetes Maternal Grandfather Heart disease Cancer of unknown origin Mother HTN (hypertension) Paternal Uncle Thalassemia Surgical History Surgical History H/O dilation and curettage Social History Social History Household Members: Children Housing: Apartment Are you a primary director long term care to a significant other at home: No Do you presently have visiting nurse or other home services: No Alcohol intake: never Patient Tobacco Use Status: Never used Tobacco Second Hand Smoke Exposure: No service: No Current occupational status: disabled Meds Allergies Allergy/AdvReac Type Severity Reaction Status Date / Time No Known Allergies Allergy Unknown UNKNOWN Verified 02/06/22 10:49 [NO KNOWN ALLERGIES] Active Medications: Current Medications Acetaminophen (Acetaminophen 325 Mg Tablet) 650 mg PO Q6H PRN PRN Reason: Pain, Mild (Pain Scale 1-3) Aspirin (Aspirin Enteric Coated 81 Mg Tablet.Dr) 81 mg PO DAILY [facility] Last Admin: 03/29/22 08:26 Dose: 81 mg Atorvastatin Calcium (Atorvastatin Calcium 40 Mg Tablet) 40 mg PO DAILY [facility] Last Admin: 03/30/22 07:56 Dose: 40 mg Cefuroxime Axetil (Cefuroxime Axetil 250 Mg Tablet) 250 mg PO BID [facility] Last Admin: 03/30/22 07:56 Dose: 250 mg Dextrose (Dextrose 50 % 25 Gm/50 Ml Syringe) 25 gm IVPUSH Q15M PRN; Protocol PRN Reason: per Hypoglycemia Standing Ord. Docusate Sodium (Docusate Sodium 100 Mg Capsule) 100 mg PO DAILY PRN PRN Reason: Constipation Famotidine (Famotidine 20 Mg Tablet) 20 mg PO BID [facility] Last Admin: 03/30/22 07:56 Dose: 20 mg Folic Acid (Folic Acid 1 Mg Tablet) 1 mg PO DAILY [facility] Last Admin: 03/30/22 07:56 Dose: 1 mg Glucose (Glucose Gel 15 Gm Gel..Gram.) 15 gm PO Q15M PRN; Protocol PRN Reason: per Hypoglycemia Standing Ord. Heparin Sodium (Porcine) (Heparin Sodium,Porcine 5,000 Unit/Ml Vial) 5,000 unit SUBCUT Q12H [facility] Last Admin: 03/29/22 08:26 Dose: 5,000 unit Insulin Glargine (Insulin Glargine,Hum.Rec.Anlog 100 Unit/Ml 10 Ml Vial) 40 unit SUBCUT DAILY [facility] Last Admin: 03/30/22 07:55 Dose: 40 unit Insulin Human Lispro (Insulin Lispro 100 Unit/Ml 3 Ml Vial) 0 unit SUBCUT QIDACHS [facility]; Protocol Last Admin: 03/30/22 11:39 Dose: 4 unit Lidocaine (Lidocaine 4 % Patch Adh..Patch) 1 patch TRANSDERMA DAILY [facility] Last Admin: 03/30/22 07:55 Dose: 1 patch Lisinopril (Lisinopril 20 Mg Tablet) 20 mg PO DAILY [facility]; Protocol Last Admin: 03/30/22 07:56 Dose: 20 mg Omeprazole (Omeprazole 20 Mg Capsule.Dr) 20 mg PO BID@0630,1630 [facility] Ondansetron HCl (Ondansetron Hcl 4 Mg/2 Ml Vial) 4 mg IVPUSH Q8H PRN PRN Reason: Nausea and Vomiting Silver Sulfadiazine (Silver Sulfadiazine 1 % Cream 25 Gm Cream..G.) 1 appl TOPICAL DAILY [facility] Last Admin: 03/30/22 07:57 Dose: 1 appl Sodium Chloride (0.9 % Sodium Chloride Flush 3 Ml Syringe) 3 ml IVFLUSH QSHIFT [facility] Last Admin: 03/30/22 07:56 Dose: 3 ml Vitamin D (Cholecalciferol (Vitamin D3) 25 Mcg Tablet) 25 mcg PO DAILY [facility] Last Admin: 03/30/22 07:56 Dose: 25 mcg Home Medications Medication Instructions Recorded Confirmed Last Taken Type aspirin 81 mg tablet,delayed 1 tab PO DAILY 07/02/21 03/28/22 03/28/22 History release atorvastatin 40 mg tablet 1 tab PO DAILY 07/02/21 03/28/22 03/28/22 History cholecalciferol (vitamin D3) 25 1 tab PO DAILY 07/02/21 03/28/22 03/28/22 History mcg (1,000 unit) tablet insulin glargine 100 unit/mL (3 40 unit subcut DAILY 07/02/21 03/28/22 03/28/22 History mL) subcutaneous pen (Lantus Solostar U-100 Insulin) metformin 1,000 mg tablet 1 tab PO BID 07/02/21 03/28/22 03/28/22 History blood sugar diagnostic (FreeStyle #10 ea 09/18/21 01/16/22 Unknown History Lite Strips) lancets 33 gauge (TRUEplus Lancets) #100 ea 09/18/21 01/16/22 Unknown History pen needle, diabetic 31 gauge x #1,200 ea 09/18/21 01/16/22 Unknown History 11/20 (UltiCare Pen Needle) bacitracin 500 unit/gram topical 1 appl topical TID 06/14/22 09/21/22 09/21/22 History ointment silver sulfadiazine 1 % topical 1 appl topical DAILY 01/15/22 03/28/22 03/28/22 History cream cefuroxime axetil 250 mg tablet 1 tab PO BID 03/28/22 03/28/22 03/28/22 History Physical Exam Vital Signs: Vital Signs: Last Vital Signs Temp 98.1 F 03/30/22 15:12 Pulse 89 03/30/22 15:12 Resp 17 03/30/22 15:12 BP 144/66 H 03/30/22 15:12 Pulse Ox 98 03/30/22 15:12 O2 Del Method 03/30/22 15:12 BMI result Body Mass Index 34.2 Const: General: healthy appearing and no acute distress Nutritional Appearance: obese Orientation/consciousness: patient oriented x3 Limitations: no limitations HEENT: Head: Yes normal to inspection Ears: hearing grossly normal bilaterally Eyes: Sclerae: sclerae normal Pupils: Equal, round and reactive pupils present Neck: Neck: Yes normal visual inspection Chest: Chest palpation & inspection: normal inspection of the chest Resp: Effort & Inspection: normal respiratory effort Auscultation: clear to auscultation bilaterally Cardio: Palpation: normal PMI Rate: regular rate Rhythm: regular rhythm Heart sounds: S1 normal heart sound present, S2 normal heart sound present and no murmurs GI: Palpation (GI): Soft to palpation, nontender and No hepatosplenomegaly present Auscultation: normal bowel sounds Rectal Exam - Female: deferred Skin: General skin exam: no rashes or lesions noted Neuro: General: patient oriented x3, gait normal and moves all extremities Cranial nerves: Yes Equal, round and reactive pupils present Psych: Appearance: grossly normal Mental Status: mental status grossly normal Results Labs CBC & Chem 7: 03/31/22 05:07 03/30/22 08:06 Labs: Short CBC 03/30/22 Range/Units 08:05 Hgb 7.6 L (12.0-16.0) g/dl Hct 24.6 L (37.0-47.0) % BMP 03/30/22 08:06 Sodium 135 Potassium 4.7 Chloride 98 Carbon Dioxide 23 BUN 19 H Creatinine 0.97 Calcium 9.6 Assessment and Plan (1) Irritable bowel syndrome: Status: Inactive (2) Acid reflux: Status: Inactive (3) Microcytic hypochromic anemia: Status: Acute Plan 56 YF with diabetes, CKD, P 80, HTN, IBS seen at [facility] on 03/28/22 with dizziness, unsteadiness, and generalized weakness and admitted with acute on chronic anemia.? Patient reported that she had an infection in the toe that is chronic and has been followed by in wound care. Patient reports that she has been anemic her entire life and was dxed with DM 24 yrs (during a ) She has been followed by Dr. Mattson in Hematology for anemia of chronic disease related to stage 4 kidney disease and is being treated with Procrit injections prn for Hb < 10 gms every 2 weeks. She also has a hx of Thalassemia. She would benefit from Procrit therapy. Past evaluation for anemia showed: lron studies:? /148.? consistent with anemia of chronic disease. Checked transglut. IgA: <1. Vitamin B12 and folate levels; 503, >20. EPO level: 14.6. Patient was seen by surgery for cholelithiasis and will be scheduled for a Lap Cecille once she is able to stop Plavix in approx a month Vascular surgeon notes reviewed and need to stay on Plavix for another month because of recent angioplasty and PVD and can be switched to aspirin after that. RECOMMENDATIONS: 1. Pt needs further evaluation with EGD and colonoscopy to rule out GI source of anemia/blood loss. Since pt is on plavix, this will need to be scheduled as an outpatient in 6 to 8 weeks after she is able to stop the plavix. 2. Follow CBC daily. 3. Continue Omeprazole 20 mg PO twice daily. 4. Check stool for occult blood. 5. Consider giving pt Procrit after consultation with structural analysis engineer. Procedures Date of Service Date of Service: 03/30/22
[2022-03-30] MEDS: Omeprazole 20 MG CAPSULE.DR PO (18:53)
[2022-03-30 20:43] LABS: Glucose, Whole Blood 303 mg/dL (60-115)
[2022-03-31 04:00] VITALS: BP 135/68; PULSE 89; RESP 17; TEMP 36.3; O2SAT 98
[2022-03-31 05:51] LABS: Hemoglobin 7.4 g/dl (12.0-16.0)
[2022-03-31] MEDS: Omeprazole 20 MG CAPSULE.DR PO (06:32)
[2022-03-31 06:43] LABS: Glucose, Whole Blood 209 mg/dL (60-115)
[2022-03-31] MEDS: Insulin Lispro 100 UNIT/ML 3 ML VIAL SUBCUT ×2 (06:44→12:05)
[2022-03-31 07:34] VITALS: BP 135/73; PULSE 93; RESP 16; TEMP 36.3; O2SAT 99
[2022-03-31 07:40] LABS: Glucose, Whole Blood 198 mg/dL (60-115)
[2022-03-31 07:43] VITALS: BP 135/73; PULSE 93; RESP 16; TEMP 36.3; O2SAT 99
--- NOTE | 2022-03-31 07:49 | PC.NURSE ---
Reports pain 9/10, refusing pain medication. Reports heat helps
[2022-03-31] MEDS: Insulin Glargine,Hum.rec.anlog 100 UNIT/ML 10 ML VIAL 40 UNIT SUBCUT (10:29)
[2022-03-31] MEDS: Famotidine 20 MG TABLET PO (10:30)
[2022-03-31] MEDS: Cholecalciferol (Vitamin D3) 25 MCG TABLET PO (10:31)
[2022-03-31] MEDS: Lidocaine 4 % Patch ADH..PATCH 1 PATCH TRANSDERMA (10:31)
[2022-03-31] MEDS: Atorvastatin Calcium 40 MG TABLET PO (10:31)
[2022-03-31] MEDS: lisinopriL 20 MG TABLET PO (10:31)
[2022-03-31] MEDS: Folic Acid 1 MG TABLET PO (10:31)
[2022-03-31] MEDS: 0.9 % Sodium Chloride Flush 3 ML SYRINGE IVFLUSH (10:32)
[2022-03-31 11:49] LABS: Glucose, Whole Blood 293 mg/dL (60-115)
--- NOTE | 2022-03-31 12:52 | MHC.CM.PN ---
Addendum entered by Nkechi Cochran RN 03/31/22 13:37: CM RECEIVED CALL BACK FROM WEN AT [facility] WHO REPORTS [facility] WILL PICK PT UP AT MAIN ENTRANCE AT 3:45PM, NSG AND UNIT AWARE. Original Note: PT MEDICALLY CLEARED FOR D/C HOME W/[facility] FOR SN/PT, CM TO ARRANGE TRANSPORT W/[facility] [phone]
[2022-03-31 13:27] LABS: OBS Int Ctl Valid YES; OBS1 NEGATIVE (NEGATIVE)
--- NOTE | 2022-03-31 14:22 | P.F2F_ITS ---
Service Date Service Date: 03/31/22 Encounter Date of encounter: 03/31/22 Encounter: anemia, hyponatremia Reasons for Services Signs and symptoms assessed: Dizziness or melena or any GI bleed Reason for [facility] [facility]: medication management, medication treatment and teach disease management Reason for physical therapy: home safety and mobility, therapeutic exercises, restore joint function, gait/transfer training, assess need for DME, ADL training, energy conservation and other MD Overseeing Care: Rosalind Cardoso Homebound: Leaving the home is medically contraindicated at this time without the asist of a device and/or another person due th the listed conditions above and below. Reason homebound: weakness related to hospital stay Homebound supporting statement: Patient is generalized weak and has multiple comorbidities and need help to go to appointments as well as per blood draws. Certification: Based on the above findings, I certify that this patient is confined to the home and needs intermittent [facility] care, physical therapy and/or speech therapy, or continues to need occupational therapy. The patient is under my care, and I have initiated the establishment of the plan of care. The patient will be followed by a physician who will periodically review the plan of care.
--- NOTE | 2022-03-31 14:54 | PM.DS ---
DS: Providers Provider Date of Service: 03/31/22 Date of admission: 03/28/22 21:03 Primary care physician: TAMY Ram Consults: 03/28/22 20:56 Consult to Nephrology Stat Consulting Provider: [facility] Reason for consultation: Hyponatremia Has provider been notified: No 03/29/22 11:23 Consult to Neurology Routine Consulting Provider: [facility] Reason for consultation: ataxia-unclear etiology Has provider been notified: No 03/30/22 10:13 Consult to Gastroenterology Routine Consulting Provider: [facility] [place] [facility] Reason for consultation: microcytic anemia -worsenin Has provider been notified: No DS: Diagnosis Discharge Diagnosis (1) Irritable bowel syndrome: Status: Acute (2) Acid reflux: Status: Acute (3) Microcytic hypochromic anemia: Status: Acute DS: Summary Hospital Course Hospital Course: 48-year-old female with past medical history of diabetes, CKD, P 80, HTN, IBS among others who presents to the hospital with complaints of dizziness, unsteadiness, and generalized weakness.? She reports that she has been so weak for the past 3 days that she has been bed-bound and unable to get out of bed.? She has required maximum health noted to ambulate few steps/feet around her house.? patient reports that she had an infection in the toe that is chronic and has been followed by in wound care, about 7 days ago she was noted to have worsening infection was started on oral antibiotics and reports significant improvement in the toe with no pain, no erythema, and no swelling.? Patient reports no nausea or vomiting, reports no abdominal pain, no diarrhea constipation, no headache or change in vision, no numbness weakness or tingling.? No chest pain or shortness of breath.? No urinary symptoms and no lower extremity edema.? Patient reports that she drinks about 5-6 bottles of water daily to stay hydrated given her diabetes.? She reports that if she drinks less than that she feels that her mouth is dry all the time.? She denies any other changes to her medications.? On arrival to the ED patient hemodynamically stable with no significant abnormal vitals Labs are significant for? WBC count of 13.3 (chronically elevated) , glucose of 8.4 which is around her baseline, medical 26.5, MCV of 60.6, has a sodium of 125 baseline around 135, potassium 48.1, chloride of 87, BUN of 17, creatinine of 0.94, serum osmolality of 268, urine negative for infection, urine osmolality of 306, and urine sodium of 34. Hospital course: acute hyponatremia-possible? secondary to exccessive water intake, seems to be improved with water restriction, advised to liberalize fluid intake 1500 mL and repeat BMP in 1 week outpatient. Generalized weakness seems to be improved,workup including brain MRI seems fine, seen by neurology : no new recomendations-seen by PT recommended home with services and PT. Microcytic Hypochromic anemia: Patient follows up outpatient with hematology -not sure if missed procrit since january causing worsening anemia , denies any melena or lizbeth bleeding. PAD: Discussed with Dr. Vigil recommended to stop Plavix, continue aspirin for now. Patient was advised to follow up Dr. Vigil for further management and further use of plavix. Monitor CBC outpatient and follow-up with hematology and GI for further workup out patiently. plan: Advised to take adequate fluid intake and avoid excessive water intake. Monitor BMP with PCP in 1 week for hyponatremia, and follow-up CBC in 1 week for anemia. Follow-up with GI, Hematology and vascular outpatient. Above management discussed with the patient in detail length she understand and in agreement with the above plan, time spent 50 minutes and 50% time spent on counseling. Significant findings: As above. Procedures performed: None. Treatment and response: As above. Complications: None. Time Spent with Patient Time attestation: Total time spent providing and/or coordinating discharge services: Discharge coordination time: Greater than 30 minutes Quality: Safe Use of Opioids Does Pt have an Active Cancer Diagnosis on the Problem List?: No Quality: Stroke Does the patient have a stroke diagnosis?: No Physical Exam Vital Signs: Vital Signs: Last Vital Signs Temp 97.3 F 03/31/22 07:43 Pulse 93 03/31/22 07:43 Resp 16 03/31/22 07:43 BP 135/73 03/31/22 07:43 Pulse Ox 99 03/31/22 07:43 O2 Del Method 03/31/22 07:43 BMI result Body Mass Index 34.2 Appearance: Alert.? Oriented X3.? not in distress.? cvs: rrr, [id number] . res: clear to auscultation ,no rhonchii or wheezing abd: no rebound or guarding ,nt, bs present. ext pulses present , no cyanosis . neuro: axo3 , nonfocal. DS: Data Data Completed and Pending Completed studies during hospitalization [Text1]: Procedures Insertion of Infusion Device into Superior Vena Cava, Percutaneous Approach (07/09/21) Labs on day of discharge: Laboratory Results - last 24 hr 03/30/22 03/30/22 03/31/22 15:47 20:25 05:07 Hgb 7.4 L Hct 24.0 L POC Glucose 217 H 303 H Stool Collect Date Stool Occult Blood Stool 2 Collect Date Stool Occult Blood #2 Stool 3 Collect Date Stool Occult Blood #3 03/31/22 03/31/22 03/31/22 06:38 07:33 11:44 Hgb Hct POC Glucose 209 H 198 H 293 H Stool Collect Date Stool Occult Blood Stool 2 Collect Date Stool Occult Blood #2 Stool 3 Collect Date Stool Occult Blood #3 03/31/22 12:39 Hgb Hct POC Glucose Stool Collect Date 03/31/22 Stool Occult Blood NEGATIVE Stool 2 Collect Date TNP Stool Occult Blood #2 TNP Stool 3 Collect Date TNP Stool Occult Blood #3 TNP Additional Comments Additional comments: MR/MR angio head wo con IMPRESSION: No acute intracranial abnormality. Specifically no evidence of acute infarction, hemorrhage, or mass. Major intracranial arteries are patent without significant stenosis or occlusion. MR/MR head/brain wo con IMPRESSION: No acute intracranial abnormality. Specifically no evidence of acute infarction, hemorrhage, or mass. Major intracranial arteries are patent without significant stenosis or occlusion. XR/XR chest 1V IMPRESSION: Unremarkable examination. Discharge Plan Discharge Patient Disposition: Home Health Service Discharge Diagnosis: anemia ,hyponatremia Referrals: [facility] [Outside] - 1 Day ([facility]YSICAL [facility], A NURSE WILL BE IN CONTACT TO ARRANGE FIRST VISIT.) Laurie Mason MD [Physician] - 2 Weeks (follow up outpatient) Ton Vigil MD [Physician] - 2 Weeks (follow up outpatient) Abrahan Mattson MD [Physician] - 2 Weeks (follow up in 2week) Rosalind Cardoso FNP [Primary Care Provider] - 1 Week Discharge Medications: New docusate sodium 100 mg Capsule 100 mg PO DAILY PRN (Reason: Constipation) Qty: 30 0RF omeprazole 20 mg Capsule,Delayed Release(Dr/Ec) 20 mg PO DAILY Qty: 30 0RF Continued folic acid 1 mg Tablet 1 mg PO DAILY Qty: 90 3RF lidocaine 5 % adhesive patch,medicated 1 patch topical DAILY Qty: 15 0RF Rx Instructions: leave on most painful area for up to 12 hrs lisinopril 20 mg tablet 20 mg PO DAILY Qty: 90 0RF cefuroxime axetil 250 mg tablet 1 tab PO BID atorvastatin 40 mg tablet 1 tab PO DAILY aspirin 81 mg tablet,delayed release (DR/EC) 1 tab PO DAILY metformin 1,000 mg tablet 1 tab PO BID cholecalciferol (vitamin D3) 25 mcg (1,000 unit) tablet 1 tab PO DAILY insulin glargine [Lantus Solostar U-100 Insulin] 100 unit/mL (3 mL) insulin pen 40 unit subcut DAILY bacitracin 500 unit/gram ointment 1 appl topical TID (DME) lancets [TRUEplus Lancets] 33 gauge misc See Rx Instructions topical .MEDSUPPLY Qty: 100 Rx Instructions: As directed (DME) pen needle, diabetic [UltiCare Pen Needle] 31 gauge x 5/16 needle See Rx Instructions subcut .MEDSUPPLY Qty: 1200 Rx Instructions: As directed (DME) FreeStyle Lite Strips Strip See Rx Instructions Not Applicable TID Qty: 10 Rx Instructions: As directed silver sulfadiazine 1 % cream 1 appl topical DAILY Held clopidogrel [Plavix] 75 mg tablet 75 mg PO DAILY Qty: 90 1RF Hold Instructions: Resume on 04/09/22. please hold until sees Dr Vigil. Discharge Orders: Discharge Order (Routine); Ordered 03/31/22 Ordered By: Diana Rodriguez Diet: Advance to usual diet Activity on Discharge: As tolerated Stand Alone Forms: Patient Portal Discharge page Other Ambulatory Orders: Basic Metabolic Panel (Routine) Timeframe: 1 Week Facility: [facility] - Location: Laboratory Ordered By: Diana Rodriguez Complete Blood Count no Diff (Routine) Timeframe: 1 Week Facility: [facility] - Location: Laboratory Ordered By: Diana Rodriguez Care Plan Goals: acute hyponatremia-possible? secondary to exccessive water intake, seems to be improved with water restriction, advised to liberalize fluid intake 1500 mL and repeat BMP in 1 week outpatient. Generalized weakness seems to be improved,workup including brain MRI seems fine.-seen by PT recommended home with services and PT. Microcytic Hypochromic anemia: Patient follows up outpatient with hematology -not sure if missed procrit since january causing worsening anemia , denies any melena or lizbeth bleeding. PAD: Discussed with Dr. Vigil recommended to stop Plavix, continue aspirin for now. Patient was advised to follow up Dr. Vigil for further management and further use of plavix. Monitor CBC outpatient and follow-up with hematology and GI for further workup out patiently. Health Concerns: if any worsening weakness or bleeding with stool or melena please go to nearest emergency room for further evaluation. Plan of Treatment: Advised to take adequate fluid intake and avoid excessive water intake. Monitor BMP with PCP in 1 week for hyponatremia, and follow-up CBC in 1 week for anemia. Follow-up with GI, Hematology and vascular outpatient. Assessment: As above.
[2022-04-03 09:03] LABS: IgA 530 mg/dL (47-310); IgG 1412 mg/dL (600-1640); IgM 43 mg/dL (50-300)
[2022-04-03 14:42] LABS: Kappa Light Chain, Free Serum 56.7 mg/L (3.3-19.4); Lambda Light Chain, Free Serum 43.5 mg/L (5.7-26.3)
== END 2022-03-31 15:50 | disposition home health service (06) | DRG 641 ==
LOC: HO.ED 17:50 → HO.EDOVER 21:45 → HO.S3 03-29 09:15
PROVIDERS: Internal Medicine Gastroenterology; Internal Medicine Nephrology; Admitting Provider Internal Medicine; Emergency Provider Emergency Medicine Emergency Medical Services; PCP Registered Nurse; Visit Provider Internal Medicine
DX: E87.1 Hypo-osmolality and hyponatremia (principal); L97.419 Non-pressure chronic ulcer of right heel and midfoot with unspecified severity; N18.4 Chronic kidney disease, stage 4 (severe); L97.429 Non-pressure chronic ulcer of left heel and midfoot with unspecified severity; E11.42 Type 2 diabetes mellitus with diabetic polyneuropathy; E11.621 Type 2 diabetes mellitus with foot ulcer; D63.1 Anemia in chronic kidney disease; I12.9 Hypertensive chronic kidney disease with stage 1 through stage 4 chronic kidney disease, or unspecified chronic kidney disease; E11.65 Type 2 diabetes mellitus with hyperglycemia; E11.51 Type 2 diabetes mellitus with diabetic peripheral angiopathy without gangrene; E11.22 Type 2 diabetes mellitus with diabetic chronic kidney disease; K58.9 Irritable bowel syndrome, unspecified; E66.9 Obesity, unspecified; Z68.34 Body mass index [BMI] 34.0-34.9, adult; Z20.822 Contact with and (suspected) exposure to COVID-19; Z79.4 Long term (current) use of insulin; Z79.02 Long term (current) use of antithrombotics/antiplatelets; Z79.82 Long term (current) use of aspirin; Z79.84 Long term (current) use of oral hypoglycemic drugs; Z79.899 Other long term (current) drug therapy
CPT/HCPCS: 36415; 70544; 70551; 71045; 80048; 80076; 81001; 81003; 82270; 82533; 82607; 82746; 82784; 82947; 83521; 83540; 83930; 83935; 84295; 84300; 84443; 84484; 85014; 85018; 85025; 85027; 86334; 86850; 86900; 86901; 87635; 93005; 96360; 96361; 97116; 97162; 99285; J0885

== ENCOUNTER 2022-05-11 13:17 | Outpatient (REF) | payer OTHER, SELFPAY ==
--- NOTE | ~2022-05-11 | US_ITS ---
EXAMINATION: US ABDOMEN COMPLETE CLINICAL INFORMATION: Abdominal pain, gallstones. COMPARISON: Ultrasound abdomen complete 12/12/2021 and 01/31/2016. MR abdomen without and with contrast 12/28/2015. TECHNIQUE: Real-time imaging of the abdominal viscera. FINDINGS: PANCREAS: Visualized portions unremarkable. ABDOMINAL AORTA: Visualized portions unremarkable. INFERIOR VENA CAVA: Visualized portions unremarkable. LIVER: Unremarkable. GALLBLADDER: Gallbladder lumen is again seen filled with sludge and gallstones without mural thickening or pericholecystic fluid. COMMON BILE DUCT: Normal in caliber measuring 0.6 cm in diameter. RIGHT KIDNEY: 11.0 cm. Small anechoic cyst in the upper pole measures 1.1 cm. LEFT KIDNEY: 10.5 cm. Unremarkable. SPLEEN: 11.4 cm. Unremarkable. FREE FLUID: None. US/US abdomen complete IMPRESSION: 1. Cholelithiasis and sludge filling the gallbladder lumen similar to the previous study without evidence for acute cholecystitis. 2. Small right upper pole renal cyst demonstrates benign features not requiring follow-up at this time.
== END 2022-05-11 13:18 | disposition home or self-care (01) ==
LOC: HO.HMGCX 13:17
PROVIDERS: Visit Provider Registered Nurse
DX: R10.84 Generalized abdominal pain (principal)
CPT/HCPCS: 76700

== ENCOUNTER 2022-05-11 20:21 | Inpatient (IN) | payer OTHER, SELFPAY ==
--- NOTE | ~2022-05-11 | MR_ITS ---
EXAMINATION: MRI OF THE LEFT FOOT WITHOUT AND WITH CONTRAST CLINICAL INFORMATION: Diabetic wound COMPARISON: X-rays of the left foot 05/12/2022 and 07/02/2021 MRI of the left foot June 2021 TECHNIQUE: MRI of the left foot is performed without and with contrast. Contrast dose 7.5 mL of Gadavist FINDINGS: The phalanges are intact without evidence of osteomyelitis There is a plantar soft tissue defect central/lateral midfoot overlying the cuboid There is diffuse signal abnormality in the deeper subcutaneous soft tissues extending to the level of the cuboid. The deeper subcutaneous tissues demonstrates low T1 and heterogeneous T2 signal with areas of low, intermediate, and high T2 signal. There is minimal enhancement of this area of soft tissue. There is a possible small sinus tract extending to the joint of the fourth or fifth tarsometatarsal joint. There is marked abnormal signal with concomitant enhancement involving the cuboid as well as all the tarsal bones and involving the proximal metatarsals.. There is also malalignment of the tarsal bones with additional bony fragmentation across essentially all the joints to varying degrees, as noted on radiographs and markedly progressed and/or new compared with the prior MRI in 2020. This is particularly severe involving the naviculocuneiform joints. There is also a focal ulceration and sinus tract along the lateral aspect of the foot at the level of the tarsometatarsal joints. This ulceration measures approximately 5 mm with a superficial sinus track measuring approximately 3 mm . This sinus tract extends into a lobulated fluid collection extending over approximately 5 cm craniocaudal 3 cm transverse and 1 cm AP. There is some signal void within the fluid collection compatible with gas. There is generalized abnormal signal in the surrounding soft tissues which demonstrate enhancement compatible with adjacent cellulitis. There is a second fluid collection along the dorsal aspect of the foot at the hindfoot midfoot junction just distal to the level of the head of the talus and overlying the extensor digitorum longus tendons. This collection measures 2 cm transverse 2 cm craniocaudal and 0.8 cm AP. There is diffuse abnormal signal in the surrounding soft tissues compatible with cellulitis. This could reflect an abscess or synovial recess related to the extensor tendon sheaths or from the joints of the midfoot or talocrural joint perhaps related to capsular defect There is a third fluid collection just lateral to the anterior tibialis tendon measuring approximately 1 cm at the level of the medial cuneiform which could reflect a synovial recess or small abscess. Muscles muscles of the foot compatible with nonspecific myositis. MR/MR foot LT wo/w con IMPRESSION: Marked abnormality of the essentially all the tarsal bones of the hindfoot and midfoot to varying degrees most prominent across the naviculocuneiform joints and tarsometatarsal joints which is markedly progressed compared with the prior MRI in 2020. 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 Concomitant osteomyelitis cannot be excluded particularly given the additional findings detailed above. This includes an ulceration and sinus tract which which likely communicates with the fourth or fifth tarsometatarsal joint. There is an ulceration and sinus tract communicating with a fluid collection along the anterior lateral aspect of the midfoot forefoot junction consistent with an abscess. There are 2 additional fluid collections which are more nonspecific but could reflect abscesses or synovial recesses as detailed above Abnormality the muscles of the foot compatible with nonspecific myositis. This could reflect infection or evolving denervation myositis
--- NOTE | ~2022-05-11 | US_ITS ---
CLINICAL INDICATION: Skin changes. FINDINGS: Real-time duplex on the examination of the lower extremity arterial systems was performed bilaterally from the levels of the external iliac arteries to the ankles. Left lower extremity peak systolic velocities (cm/s): Common femoral artery: 251 Profunda femoral artery: 147 Proximal superficial femoral artery: 150 Mid superficial femoral artery: 224 Distal superficial femoral artery: 165 Popliteal artery: 155 Posterior tibial artery: 51 Grayscale and color Doppler imaging of the left lower extremity demonstrates triphasic flow to the distal superficial femoral artery and monophasic flow distally. Incidentally visualized mildly enlarged lymph nodes measuring 1.3 cm or less in short axis and demonstrating fatty donta. US/US arterial duplex LE LT IMPRESSION: Cannot exclude popliteal and infrapopliteal disease. Recommend clinical correlation with pulse examination. Incidentally visualized mildly enlarged lymph nodes measuring 1.3 cm or less in short axis and demonstrating fatty donta, possibly reactive.
--- NOTE | ~2022-05-11 | XR_ITS ---
EXAMINATION: XR FOOT, LEFT CLINICAL INFORMATION: Pain, question osteomyelitis COMPARISON: 07/02/2021 TECHNIQUE: AP, lateral, and oblique views of the left foot. FINDINGS: There appears to be malalignment at the tarsometatarsal articulations, most notably at the second, third, and fourth MTP joints as well as the bases of these metatarsals appear positioned medially relative to the cuneiforms and cuboid. Appearance is new since 07/02/2021. There may be partial destruction of the intermediate and lateral cuneiforms, as contours are not fully defined. Adjacent age-indeterminate fracture at the base of the second metatarsal cannot be excluded. Age-indeterminate fracture at the medial aspect of the navicular is also suspected. There is soft tissue swelling throughout the foot. Plantar skin defect is suspected at the mid foot with associated soft tissue gas. No definite radiographic findings of osteomyelitis. Plantar calcaneal spur is present. XR/XR foot LT min 3V IMPRESSION: 1. Soft tissue swelling throughout the foot as well as a focus of plantar soft tissue gas. No definite radiographic findings of osteomyelitis; however, further evaluation with MRI would be helpful. 2. Malalignment at the second, third, and fourth MTP joints as noted above, new compared to prior. Adjacent age-indeterminate fracture at the base of the second metatarsal cannot be excluded. Additional fracture of the medial navicular is suspected.
--- NOTE | ~2022-05-11 | CT_ITS ---
EXAMINATION: CT CHEST WITHOUT CONTRAST CLINICAL INFORMATION: Chest pain, arm and back pain COMPARISON: Chest x-ray 03/28/2022, CT 01/21/2022 TECHNIQUE: Multidetector volumetric CT imaging of the chest was done. Axial MIP volume rendering provided. Sagittal and coronal reformatted images were obtained. This CT examination was performed using dose optimization techniques as appropriate, variously including the following: *Automated exposure control *Adjustment of mA and/or kV according to patient size (this includes techniques or standardized protocols for targeted exams where dose is matched to indication/reason for exam; i.e. extremities or head) *Use of iterative reconstruction technique DLP: 252 mGy-cm FINDINGS: LUNGS: Mild upper lobe predominant emphysema. No regions of consolidation bilaterally. Minimal bibasilar subsegmental atelectasis. Few scattered nodules are noted in the left lung measuring up to 3 mm in the left lower lobe on image 266/453. A few scattered right lung nodules are also noted in the middle lobe measuring up to 3 mm such as on image 223/453. These appear overall similar compared to prior MEDIASTINUM: Visualized thyroid gland is unremarkable. There are subcentimeter mediastinal lymph nodes within the range of normal variation. Cardiac size is within normal limits; no pericardial effusion. CORONARY ARTERY CALCIFICATION: Present PLEURA: There is no pleural effusion. No pleural mass or thickening. AXILLA: No lymphadenopathy. UPPER ABDOMEN: Cholelithiasis is noted. Redemonstrated thickened appearance of the left adrenal gland. OSSEOUS STRUCTURES: Degenerative changes are noted in the spine. CT/CT chest wo IV con IMPRESSION: 1. No acute findings identified. Mild upper lobe predominant emphysema. 2. Few scattered lung nodules measuring up to 3 mm, nonspecific and that significant change from 01/21/2022. According to the UPDATED 2017 Fleischner Society recommendations, the advised follow-up imaging for solid nodules < 6 mm is: LOW RISK PATIENT: No routine follow-up. HIGH RISK PATIENT: Optional CT at 12 months. 3. Coronary artery calcifications. Correlation with cardiac risk factors is recommended.
[2022-05-11 20:54] VITALS: BP 114/55; PULSE 118; RESP 20; TEMP 37.6; O2SAT 98; BMI 32.0
[2022-05-11 21:19] LABS: Basophils Absolute Auto 0.1 X10*3/uL (0.0-0.2); Basophils Percent Auto 0.3 % (0-2); Eosinophils Absolute Auto 0.1 X10*3/uL (0.0-0.4); Eosinophils Percent Auto 0.4 % (0-4); Hematocrit 25.3 % (37.0-47.0); Hemoglobin 7.9 g/dl (12.0-16.0); Imm Gran Abs Auto 0.43 X10*3/uL (0.00-0.03); Imm Gran Pct Auto 1.7 % (0.0-0.4); Lymphocytes Percent Auto 7.9 % (20-40); MANUAL DIFF FLAG SCAN; Mean Corpuscular HGB Conc 31.2 g/dl (31.0-35.0); Mean Corpuscular Hemoglobin 19.1 pg (27.0-33.0); Monocytes Absolute Auto 1.8 X10*3/uL (0.1-1.2); Monocytes Percent Auto 7.2 % (2-11); Neutrophils Absolute Auto 20.8 x10*3/uL (2.0-8.3); Neutrophils Percent Auto 82.5 % (45-73); Platelet Count 758 X10*3/uL (160-400); Red Blood Count 4.13 X10*6/uL (4.20-5.50); Red Cell Distribution Width 15.8 % (11.0-16.0); SCAN SMEAR FLAG 1; White Blood Count 25.2 X10*3/uL (4.8-10.8)
[2022-05-11 21:30] LABS: Lactic Acid 1.7 mmol/L (0.5-2.0); Mean Corpuscular Volume 61.3 fL (80.0-98.0)
[2022-05-11 21:37] LABS: SLIDE REVIEW VERIFIED
[2022-05-11 21:38] LABS: Alanine Aminotransferase 15 U/L (0-31); Albumin Level 3.6 g/dL (3.5-5.0); Alkaline Phosphatase 280 U/L (39-117); Anion Gap 23 (12-20); Aspartate Amino Transferase 16 U/L (5-31); Bilirubin Total 1.2 mg/dL (0.0-1.0); Blood Urea Nitrogen 22 mg/dL (9-16); Calcium 9.4 mg/dL (8.4-10.2); Carbon Dioxide 23 mmol/L (22-29); Chloride 90 mmol/L (96-108); Creatinine Clr Calc Pharmacy 34.7; Estimated Glomerular Filt Rate 33; Glucose Random 339 mg/dL (60-115); Potassium 4.4 mmol/L (3.3-5.1); Sodium 132 mmol/L (135-145)
[2022-05-12] VITALS (15 sets, daily range): BP systolic 104–176; BP diastolic 48–78; PULSE 100–176; RESP 14–113; TEMP 36.9–37.8; O2SAT 97–100
--- NOTE | 2022-05-12 | ECG_ITS ---
Test Reason : svt Blood Pressure : / mmHG Vent. Rate : 177 BPM Atrial Rate : 000 BPM P-R Int : 000 ms QRS Dur : 072 ms QT Int : 250 ms P-R-T Axes : 000 087 123 degrees QTc Int : 429 ms Supraventricular tachycardia Marked ST abnormality, possible lateral subendocardial injury Abnormal ECG When compared with ECG of 12-MAY-2022 03:19, Vent. rate has increased BY [address] now depressed in Anterolateral leads Referred By: Ceferino Gorman Electronically Signed By:ELIZABETH BENJAMIN MD
--- OUTSIDE RECORDS SUMMARY | 2022-05-12 01:39 | XMS_ITS | Continuity of Care Document ---
:1965 Author Organization [facility] Address [address] [place] [id number]- Care Team Providers Name Role Phone Janae SCHOFIELD, Rosalind Salazar Primary Care Physician Encounter [facility] Date(s): 09/23/21 - 11/18/21 [facility] [address] [place] [id number] Attending Physician: Juliana Omer MD Admitting Physician: Juliana Omer MD Referring Physician: Rosalind Cardoso NP Allergies, Adverse Reactions, Alerts No Known Allergies Medications Aspirin Low Dose 81 mg oral delayed release tablet 0 Refills, Maintenance, 09/29/21 8:44:00 EDT, Partial fill upon patient request if the prescription is for a schedule II opioid drug. Start Date: 09/29/21 Status: Orderedatorvastatin 40 mg oral tablet 0 Refills, Maintenance, 09/29/21 8:43:00 EDT, Partial fill upon patient request if the prescription is for a schedule II opioid drug. Start Date: 09/29/21 Status: Ordereddoxycycline hyclate 100 mg oral capsule 0 Refills, Maintenance, 09/29/21 8:46:00 EDT, Partial fill upon patient request if the prescription is for a schedule II opioid drug. Start Date: 09/29/21 Status: Orderedezetimibe 10 mg oral tablet 0 Refills, Maintenance, 09/29/21 8:44:00 EDT, Partial fill upon patient request if the prescription is for a schedule II opioid drug. Start Date: 09/29/21 Status: Orderedfolic acid 1 mg oral tablet Refills 0, Maintenance, 09/29/21 8:42:00 EDT, Partial fill upon patient request if the prescription is for a schedule II opioid drug. Start Date: 09/29/21 Status: OrderedFREESTYLE ESTEFANI LITE Maintenance, 09/29/21 8:45:00 EDT, Supply Start Date: 09/29/21 Status: Orderedhydrochlorothiazide-lisinopril 12.5 mg-20 mg oral tablet 1 tablet, By Mouth, Daily, # 7 tablet, 0 Refills, Maintenance, 08/06/15 19:55:10, Tablet Start Date: 08/06/15 Stop Date: 08/13/15 Status: Orderedhydrochlorothiazide-lisinopril 25 mg-20 mg oral tablet 0 Refills, Maintenance, 09/29/21 8:43:00 EDT, Partial fill upon patient request if the prescription is for a schedule II opioid drug. Start Date: 09/29/21 Status: Orderedisopropyl alcohol 70% topical pad 0 Refills, Maintenance, 09/29/21 8:45:00 EDT, Partial fill upon patient request if the prescription is for a schedule II opioid drug. Start Date: 09/29/21 Status: Orderedisopropyl alcohol 70% topical pad 0 Refills, Maintenance, 09/29/21 8:45:00 EDT, Partial fill upon patient request if the prescription is for a schedule II opioid drug. Start Date: 09/29/21 Status: OrderedJardiance 25 mg oral tablet 1 tablet = 25 mg, By Mouth, Daily in AM, Please take daily in Am E11.9, # 30 tablet, 11 Refills, Maintenance, 09/29/21 8:58:00 EDT, Tablet, [facility], Partial fill upon patient request if the prescription is for a schedule II... Start Date: 09/29/21 Status: OrderedLantus Solostar Pen 100 units/mL subcutaneous solution 0 Refills, Maintenance, 09/29/21 8:44:00 EDT, Partial fill upon patient request if the prescription is for a schedule II opioid drug. Start Date: 09/29/21 Status: OrderedmetFORMIN ER 500 mg oral tablet 1 tablet = 500 mg, By Mouth, 3 times a day, # 21 tablet, 0 Refills, Maintenance, 08/06/15 19:54:52, ER Tablet Start Date: 08/06/15 Stop Date: 08/13/15 Status: OrderedPEN NEEDLES MIS [id number] Maintenance, 09/29/21 8:44:00 EDT, Supply Start Date: 09/29/21 Status: Orderedpioglitazone 15 mg oral tablet 0 Refills, Maintenance, 09/29/21 8:45:00 EDT, Partial fill upon patient request if the prescription is for a schedule II opioid drug. Start Date: 09/29/21 Status: OrderedTRUPLUS LANC MIS 33G Maintenance, 09/29/21 8:42:00 EDT, Supply Start Date: 09/29/21 Status: OrderedVitamin D3 1000 intl units oral tablet 0 Refills, Maintenance, 09/29/21 8:43:00 EDT, Partial fill upon patient request if the prescription is for a schedule II opioid drug. Start Date: 09/29/21 Status: Ordered
--- OUTSIDE RECORDS SUMMARY | 2022-05-12 01:39 | XMS_ITS | Continuity of Care Document ---
:1965 Author Organization [facility] Address [address] [place] [id number]- Care Team Providers Name Role Phone Janae SCHOFIELD, Rosalind Salazar Primary Care Physician [phone] Encounter [facility] Date(s): 03/27/22 - 04/26/22 [facility] [address] [place] [id number] Attending Physician: Jyotsna Sharp Admitting Physician: Jyotsna Sharp Referring Physician: Jyotsna Sharp Referring Physician: Carri Nunez MD Allergies, Adverse Reactions, Alerts No Known Allergies [...] II opioid drug. Start Date: 09/29/21 Status: OrderedFRPRISCILA ESTEFANI LITE Maintenance, 09/29/21 8:45:00 EDT, Supply [...] 11 Refills, Maintenance, 09/29/21 8:58:00 EDT, Tablet, [facility], Partial fill upon patient request if [...] Stop Date: 08/13/15 Status: OrderedPEN NEEDLES MIS [id number] Maintenance, 09/29/21 8:44:00 EDT, Supply Start Date: [...] opioid drug. Start Date: 09/29/21 Status: Ordered Problem List Condition Confirmation Course Effective Dates Status Health Stat us Informant Cellulitis of foot Confirmed Active CKD stage 3 Confirmed Active Diabetes mellitus Confirmed Active type 2 Hypertension Confirmed Active Social History Social History Type Response Smoking Status Never (less than 100 in life time) entered on: 01/16/22 Sex Patient Care team information PersonnelName: Janae SCHOFIELD, Rosalind Salazar Address: Address: [address] [place] [id number]
--- OUTSIDE RECORDS SUMMARY | 2022-05-12 01:39 | XMS_ITS | Continuity of Care Document ---
:1965 Author Organization [facility] Address [address] [place] [address]- Care Team Providers Name Role Phone Janae SCHOFIELD, Rosalind Salazar Primary Care Physician [phone] [place] [facility] [place] Date[place]s): 11/08/21 - 12/08/21 [facility] [address] [place] [address]- Attending Physician: Jyotsna Sharp Admitting Physician: AdmJyotsna montana Referring Physician: Admtr ArGabino Allergies, Adverse Reactions, Alerts No Known Allergies [...] 11 Refills, Maintenance, 09/29/21 8:58:00 EDT, Tablet, [facility], Partial fill upon patient request if [...] Stop Date: 08/13/15 Status: OrderedPEN NEEDLES MIS [id number] Maintenance, 09/29/21 8:44:00 EDT, Supply Start Date: [...]
--- OUTSIDE RECORDS SUMMARY | 2022-05-12 01:39 | XMS_ITS | Continuity of Care Document ---
:1965 Author Organization [facility] Address [address] [place] [address]- Care Team Providers Name Role Phone Not on Staff, PCP Primary Care Physician Unavailable Encounter [facility] [place] Date(s): 09/27/21 - 10/27/21 [facility] [address] [place], [place] [address] Allergies, Adverse Reactions, Alerts No Known Allergies [...] 11 Refills, Maintenance, 09/29/21 8:58:00 EDT, Tablet, [facility], Partial fill upon patient request [...] Stop Date: 08/13/15 Status: OrderedPEN NEEDLES MIS [id number] Maintenance, 09/29/21 8:44:00 EDT, Supply Start Date: [...]
--- OUTSIDE RECORDS SUMMARY | 2022-05-12 01:39 | XMS_ITS | Continuity of Care Document ---
:1965 Author Organization [facility] D [facility] Address [address] [place] [address]- Care Team Providers Name Role Phone Janae SCHOFIELD, Rosalind Salazar Primary Care Physician [phone] [place] [facility] [place] 01/26[place]22 [place] 04/26/22 [facility] [address] [place] [address] Attending Physician: Salome Katz MD Admitting Physician: Salome Katz MD Referring Physician: Rosalind Cardoso NP Allergies, [...] 11 Refills, Maintenance, 09/29/21 8:58:00 EDT, Tablet, [facility], Partial fill upon patient request [...] Stop Date: 08/13/15 Status: OrderedPEN NEEDLES MIS [id number] Maintenance, 09/29/21 8:44:00 EDT, Supply Start Date: [...] 01/16/22 Sex Patient Care team information PersonnelName: Rosalind Cardoso NP Address: Address: [address] [place] [id number]
--- OUTSIDE RECORDS SUMMARY | 2022-05-12 01:39 | XMS_ITS | Continuity of Care Document ---
:1965 Author Organization [facility] Address [address] [place] [address]- Care Team Providers Name Role Phone Not on Staff, PCP Primary Care Physician Unavailable Encounter [facility] [place] Date(s): 09/01/21 - 10/01/21 [facility] [address]- Attending Physician: Jyotsna Sharp Admitting Physician: Jyotsna Sharp Referring Physician: Jyotsna Sharp Allergies, Adverse Reactions, Alerts No Known Allergies [...] 11 Refills, Maintenance, 09/29/21 8:58:00 EDT, Tablet, [facility], Partial fill upon patient request [...] Stop Date: 08/13/15 Status: OrderedPEN NEEDLES MIS [id number] Maintenance, 09/29/21 8:44:00 EDT, Supply Start Date: [...]
--- OUTSIDE RECORDS SUMMARY | 2022-05-12 01:39 | XMS_ITS | Continuity of Care Document ---
:1965 Author Organization [facility]ocrinology and D [facility] Address [address] [place] [address]- Care Team Providers Name Role Phone Janae SCHOFIELD, Rosalind Salazar Primary Care Physician [phone] [place] [facility] [place] 01/03/22 - 04/26/22 [facility] [address] [place] [address] Attending Physician: Salome Katz MD Admitting Physician: [...] 11 Refills, Maintenance, 09/29/21 8:58:00 EDT, Tablet, [facility], Partial fill upon patient request [...] Stop Date: 08/13/15 Status: OrderedPEN NEEDLES MIS [id number] Maintenance, 09/29/21 8:44:00 EDT, Supply Start Date: [...] information PersonnelName: Rosalind Cardoso NP Address: Address: [address] [place] [id number]
--- OUTSIDE RECORDS SUMMARY | 2022-05-12 01:39 | XMS_ITS | Continuity of Care Document ---
:1965 Author Organization [facility] Address [address] [place] [address]- Care Team Providers Name Role Phone Not on Staff, PCP Primary Care Physician Unavailable Encounter [facility] [place] Date(s): 08/15/21 - 10/01/21 [facility] [address] [place] [address]- Attending Physician: Brisa SURESH, Malvin Admitting Physician: Brias SURESH, Malvin Referring Physician: Calin Zabala DO Allergies, Adverse Reactions, Alerts No Known Allergies [...] Stop Date: 08/13/15 Status: OrderedPEN NEEDLES MIS [id number] Maintenance, 09/29/21 8:44:00 EDT, Supply Start Date: [...]
--- OUTSIDE RECORDS SUMMARY | 2022-05-12 01:39 | XMS_ITS | Continuity of Care Document ---
:1965 Author Organization [facility] Address [address] [place] [address], [address] [place] [address]- Care Team Providers Name Role Phone Janae SCHOFIELD, Rosalind Salazar Primary Care Physician [phone] [id number] Date(s): 01/16/22 - 02/16/22 [facility] [address] [facility], [address] [place] [address] Attending Physician: Leatha Burger NP Admitting Physician: Leatha Burger NP Referring Physician: Rosalind Cardoso NP Allergies, Adverse [...] 11 Refills, Maintenance, 09/29/21 8:58:00 EDT, Tablet, [facility], Partial fill upon patient request [...] Stop Date: 08/13/15 Status: OrderedPEN NEEDLES MIS [id number] Maintenance, 09/29/21 8:44:00 EDT, Supply Start Date: [...] Date: 09/29/21 Status: Ordered Problem List Condition Effective Dates Status Health Status Informant Cellulitis of foot(Confirmed) Active CKD stage 3(Confirmed) Active Diabetes mellitus type 2(Confirmed) Active Hypertension(Confirmed) Active Social History Social History Type Response Smoking Status Never (less than 100 in life time) entered on: 01/16/22 Sex
--- OUTSIDE RECORDS SUMMARY | 2022-05-12 01:39 | XMS_ITS | Continuity of Care Document ---
:1965 Author Organization [facility] Address [address] [place] [address], [address] [place] [address]- Care Team Providers Name Role Phone Janae SCHOFIELD, Rosalind Salazar Primary Care Physician [id number] Date[facility] 11/14/21 - 01/11/[facility] [employer] [address] [address]- Attending Physician: Abigail Mitchell MD Admitting Physician: Abigail Mitchell MD Referring Physician: Rosalind Cardoso NP Allergies, [...] 11 Refills, Maintenance, 09/29/21 8:58:00 EDT, Tablet, [facility], Partial fill upon patient request [...] Stop Date: 08/13/15 Status: OrderedPEN NEEDLES MIS [id number] Maintenance, 09/29/21 8:44:00 EDT, Supply Start Date: [...]
--- OUTSIDE RECORDS SUMMARY | 2022-05-12 01:39 | XMS_ITS | Continuity of Care Document ---
:1965 Author Organization [facility] Address [address] [place] [address], [address] [place] [id number] Care Team Providers Name Role Phone Janae SCHOFIELD, Rosalind Salazar Primary Care Physician [phone] Encounter [facility] Date(s): 09/25/21 - 12/10/21 [facility] [address], [address] [place] [id number]- Attending Physician: Abigail Mitchell MD Admitting Physician: [...] 11 Refills, Maintenance, 09/29/21 8:58:00 EDT, Tablet, [facility], Partial fill upon patient request [...] Stop Date: 08/13/15 Status: OrderedPEN NEEDLES MIS [id number] Maintenance, 09/29/21 8:44:00 EDT, Supply Start Date: [...]
--- OUTSIDE RECORDS SUMMARY | 2022-05-12 01:39 | XMS_ITS | Continuity of Care Document ---
:1965 Author Organization [facility] p Address [address] [place] [address], [address] [place] [id number]- Care Team Providers Name Role Phone Janae SCHOFIELD, Rosalind Salazar Primary Care Physician [phone] [id number] Date(s): 01/17/22 - 02/16/22 [facility] [address] [facility], [address] [place] [address] Attending Physician: Jyotsna Sharp Admitting Physician: Jyotsna [...] 11 Refills, Maintenance, 09/29/21 8:58:00 EDT, Tablet, [facility], Partial fill upon patient request [...] Stop Date: 08/13/15 Status: OrderedPEN NEEDLES MIS [id number] Maintenance, 09/29/21 8:44:00 EDT, Supply Start Date: [...]
[2022-05-12] MEDS: 0.9 % Sodium Chloride 1,000 ML 999 ML IV ×2 (02:25→03:48)
[2022-05-12] MEDS: Piperacillin Sodium/Tazobactam 3.375 GM in 0.9 % Sodium Chloride 50 ML IV (02:25)
[2022-05-12 02:39] LABS: Lactic Acid 1.1 mmol/L (0.5-2.0)
--- NOTE | 2022-05-12 02:39 | ED_ITS ---
HPI - Wound/Laceration General Chief Complaint: Wound/Laceration Stated Complaint: leg and chest pain, foot swollen, angio in october Time Seen by Provider: 05/12/22 02:38 Source: patient Mode of arrival: ambulatory History of Present Illness HPI narrative: 56-year-old female, diabetic, who is been going to wound care for a diabetic foot ulcer on the plantar aspect of her left foot and then for the past 2 weeks has noted increased redness, swelling to the ?top of her foot? with chills. Related Data Home Medications Medication Instructions Recorded Confirmed aspirin 81 mg tablet,delayed 1 tab PO DAILY 07/02/21 03/28/22 release atorvastatin 40 mg tablet 1 tab PO DAILY 07/02/21 03/28/22 cholecalciferol (vitamin D3) 25 1 tab PO DAILY 07/02/21 03/28/22 mcg (1,000 unit) tablet insulin glargine 100 unit/mL (3 40 unit subcut DAILY 07/02/21 03/28/22 mL) subcutaneous pen (Lantus Solostar U-100 Insulin) metformin 1,000 mg tablet 1 tab PO BID 07/02/21 03/28/22 blood sugar diagnostic (FreeStyle #10 ea 09/18/21 01/16/22 Lite Strips) lancets 33 gauge (TRUEplus Lancets) #100 ea 09/18/21 01/16/22 pen needle, diabetic 31 gauge x #1,200 ea 09/18/21 01/16/22 5/16 (UltiCare Pen Needle) bacitracin 500 unit/gram topical 1 appl topical TID 12/19/21 03/28/22 ointment silver sulfadiazine 1 % topical 1 appl topical DAILY 01/15/22 03/28/22 cream cefuroxime axetil 250 mg tablet 1 tab PO BID 03/28/22 03/28/22 Previous Rx's Medication Instructions Recorded folic acid 1 mg tablet 1 mg PO DAILY #90 tabs 08/08/21 clopidogrel 75 mg tablet (Plavix) 75 mg PO DAILY #90 tabs 10/11/21 lidocaine 5 % topical patch 1 patch topical DAILY pain #15 ea 10/31/21 lisinopril 20 mg tablet 20 mg PO DAILY #90 tabs 12/13/21 docusate sodium 100 mg capsule 100 mg PO DAILY PRN Constipation 03/31/22 #30 caps omeprazole 20 mg capsule,delayed 20 mg PO DAILY #30 caps 03/31/22 release Allergies Allergy/AdvReac Type Severity Reaction Status Date / Time No Known Allergies Allergy Unknown UNKNOWN Verified 02/06/22 10:49 [NO KNOWN ALLERGIES] Review of Systems Review of Systems: Pertinent positives and negatives as stated in HPI 10 point review of systems is otherwise negative. PMFSH Past Medical History Source: nursing notes reviewed Medical History Acid reflux Anemia in chronic kidney disease (CKD) Arthritis Carpal tunnel syndrome Chronic ulcer of right foot Degenerative joint disease of spine Hypertension Irritable bowel syndrome Leukocytosis Obesity Osteomyelitis Osteoporosis PAD (peripheral artery disease) Peripheral neuropathy Prolapsed uterus Rectal prolapse Retinopathy Toe ulcer due to DM Surgical History H/O dilation and curettage Family History Family History Maternal Grandmother Diabetes Maternal Grandfather Heart disease Cancer of unknown origin Mother HTN (hypertension) Paternal Uncle Thalassemia Social History Social History Household Members: Children Housing: Apartment Are you a primary critical care physician assistant to a significant other at home: No Do you presently have visiting nurse or other home services: No Alcohol intake: never Patient Tobacco Use Status: Never used Tobacco Smoked in Last 30 Days: No Second Hand Smoke Exposure: No Use of substances other than those prescribed or required for medical reasons: No Advance Directives: No Advance Directives Information Provided: No service: No Current occupational status: disabled Physical Exam Vital Signs: Vital Signs: Last Vital Signs Temp 100.0 F 05/12/22 02:29 Pulse 103 H 05/12/22 02:29 Resp 16 05/12/22 02:29 BP 132/77 05/12/22 02:29 Pulse Ox 99 05/12/22 02:29 O2 Del Method 05/12/22 02:29 BMI result Body Mass Index 32.0 VITAL SIGNS: Reviewed. GENERAL: Well developed, well nourished, in no acute distress. HEAD: Normocephalic/atraumatic EYES: PERRLA, EOMI EARS: Ext canals without abnormality OROPHARYNX: no oral lesions noted, posterior pharynx clear LUNGS: Normal breath sounds. No adventitious sounds or accessory muscle use. SpO2<99> CARDIOVASCULAR: Regular rate and rhythm without noted murmurs, no JVD or lower extremity edema. ABDOMEN: Soft, non-tender, non-distended with bowel sounds. MUSCULOSKELETAL: No tenderness, deformities, or effusions noted on gross inspection. EXTREMITIES: No cyanosis, clubbing or edema; LEFT FOOT: 2 abscesses noted to the lateral aspect of the dorsal left foot, clean based diabetic ulcer to the plantar surface on opposing side of same foot. Foot is warm. SKIN: Inspection of the skin reveals no rashes NEUROLOGIC: Alert and oriented x 4. Strength and sensation to light touch were grossly intact x 4. Course Course Course Narrative: 0200: I suspect infection after review of history, clinical presentation, review of lab work. Patient had lactic acid, blood cultures, antibiotics. I performed an incision and drainage on 2 different abscesses on the plantar aspect of the left foot with copious amounts of purulence/sanguinous drainage. Will obtain x-ray to evaluate for possible OM but highly suspicious. Signed out to Dr Aragon. MDM - Wound/Laceration Lab Data Result diagrams: 05/11/22 21:06 05/11/22 21:06 Labs: Lab Results 05/11/22 05/11/22 05/11/22 Range/Units 21:06 21:06 21:06 WBC 25.2 H (4.8-10.8) X10*3/uL RBC 4.13 L (4.20-5.50) X10*6/uL Hgb 7.9 L (12.0-16.0) g/dl Hct 25.3 L (37.0-47.0) % MCV 61.3 L (80.0-98.0) fL MCH 19.1 L (27.0-33.0) pg MCHC 31.2 (31.0-35.0) g/dl RDW 15.8 (11.0-16.0) % Plt Count 758 H (160-400) X10*3/uL MPV 9.0 L (9.4-12.3) fL Immature Gran % (Auto) 1.7 H (0.0-0.4) % Neut % (Auto) 82.5 H (45-73) % Lymph % (Auto) 7.9 L (20-40) % Mckenzie % (Auto) 7.2 (2-11) % Eos % (Auto) 0.4 (0-4) % Baso % (Auto) 0.3 (0-2) % Lymph # (Auto) 2.0 (1.2-4.9) X10*3/uL Mckenzie # (Auto) 1.8 H (0.1-1.2) X10*3/uL Eos # (Auto) 0.1 (0.0-0.4) X10*3/uL Baso # (Auto) 0.1 (0.0-0.2) X10*3/uL Abs Immat Gran (auto) 0.43 H (0.00-0.03) X10*3/uL Absolute Neuts (auto) 20.8 H (2.0-8.3) x10*3/uL Absolute Nucleated RBC 0.000 (0.0-0.012) X10*3/uL Nucleated RBC % (auto) 0.0 (0.0-0.2) /100WBC Smear Tech's Comments VERIFIED Sodium 132 L (135-145) mmol/L Potassium 4.4 (3.3-5.1) mmol/L Chloride 90 L (96-108) mmol/L Carbon Dioxide 23 (22-29) mmol/L Anion Gap 23 H (12-20) BUN 22 H (9-16) mg/dL Creatinine 1.59 H (0.5-1.4) mg/dL Estim Creat Clear Calc 34.7 Estimated GFR 33 Random Glucose 339 H (60-115) mg/dL Lactic Acid 1.7 (0.5-2.0) mmol/L Calcium 9.4 (8.4-10.2) mg/dL Total Bilirubin 1.2 H (0.0-1.0) mg/dL AST 16 (5-31) U/L ALT 15 (0-31) U/L Alkaline Phosphatase 280 H D (39-117) U/L Total Protein 8.0 (6.5-8.0) g/dL Albumin 3.6 (3.5-5.0) g/dL 05/12/22 Range/Units 02:18 WBC (4.8-10.8) X10*3/uL RBC (4.20-5.50) X10*6/uL Hgb (12.0-16.0) g/dl Hct (37.0-47.0) % MCV (80.0-98.0) fL MCH (27.0-33.0) pg MCHC (31.0-35.0) g/dl RDW (11.0-16.0) % Plt Count (160-400) X10*3/uL MPV (9.4-12.3) fL Immature Gran % (Auto) (0.0-0.4) % Neut % (Auto) (45-73) % Lymph % (Auto) (20-40) % Mckenzie % (Auto) (2-11) % Eos % (Auto) (0-4) % Baso % (Auto) (0-2) % Lymph # (Auto) (1.2-4.9) X10*3/uL Mckenzie # (Auto) (0.1-1.2) X10*3/uL Eos # (Auto) (0.0-0.4) X10*3/uL Baso # (Auto) (0.0-0.2) X10*3/uL Abs Immat Gran (auto) (0.00-0.03) X10*3/uL Absolute Neuts (auto) (2.0-8.3) x10*3/uL Absolute Nucleated RBC (0.0-0.012) X10*3/uL Nucleated RBC % (auto) (0.0-0.2) /100WBC Smear Tech's Comments Sodium (135-145) mmol/L Potassium (3.3-5.1) mmol/L Chloride (96-108) mmol/L Carbon Dioxide (22-29) mmol/L Anion Gap (12-20) BUN (9-16) mg/dL Creatinine (0.5-1.4) mg/dL Estim Creat Clear Calc Estimated GFR Random Glucose (60-115) mg/dL Lactic Acid 1.1 (0.5-2.0) mmol/L Calcium (8.4-10.2) mg/dL Total Bilirubin (0.0-1.0) mg/dL AST (5-31) U/L ALT (0-31) U/L Alkaline Phosphatase (39-117) U/L Total Protein (6.5-8.0) g/dL Albumin (3.5-5.0) g/dL Procedures Abscess I/D Site: foot Side (if applicable): left Technique: incised with blade Amount of fluid expressed (mL): 100 Sent for culture/gram staining?: No Irrigation: Yes Packing used?: none Discharge Plan Discharge Clinical Impression: Sepsis, Abscess of foot, LUIS (acute kidney injury) Patient Disposition: Still a Patient Prescriptions: No Action folic acid 1 mg Tablet 1 mg PO DAILY Qty: 90 3RF lidocaine 5 % adhesive patch,medicated 1 patch topical DAILY Qty: 15 0RF Rx Instructions: leave on most painful area for up to 12 hrs lisinopril 20 mg tablet 20 mg PO DAILY Qty: 90 0RF cefuroxime axetil 250 mg tablet 1 tab PO BID docusate sodium 100 mg Capsule 100 mg PO DAILY PRN (Reason: Constipation) Qty: 30 0RF omeprazole 20 mg Capsule,Delayed Release(Dr/Ec) 20 mg PO DAILY Qty: 30 0RF atorvastatin 40 mg tablet 1 tab PO DAILY aspirin 81 mg tablet,delayed release (DR/EC) 1 tab PO DAILY metformin 1,000 mg tablet 1 tab PO BID cholecalciferol (vitamin D3) 25 mcg (1,000 unit) tablet 1 tab PO DAILY insulin glargine [Lantus Solostar U-100 Insulin] 100 unit/mL (3 mL) insulin pen 40 unit subcut DAILY clopidogrel [Plavix] 75 mg tablet 75 mg PO DAILY Qty: 90 1RF Hold Instructions: Resume on 04/09/22. please hold until sees Dr Vigil. bacitracin 500 unit/gram ointment 1 appl topical TID (DME) lancets [TRUEplus Lancets] 33 gauge misc See Rx Instructions topical .MEDSUPPLY Qty: 100 Rx Instructions: As directed (DME) pen needle, diabetic [UltiCare Pen Needle] 31 gauge x 5/16 needle See Rx Instructions subcut .MEDSUPPLY Qty: 1200 Rx Instructions: As directed (DME) FreeStyle Lite Strips Strip See Rx Instructions Not Applicable TID Qty: 10 Rx Instructions: As directed silver sulfadiazine 1 % cream 1 appl topical DAILY
--- NOTE | 2022-05-12 02:48 | ECG_ITS ---
Test Reason : Hypertension Blood Pressure : / mmHG Vent. Rate : 105 BPM Atrial Rate : 105 BPM P-R Int : 132 ms QRS Dur : 078 ms QT Int : 330 ms P-R-T Axes : 056 064 063 degrees QTc Int : 436 ms Sinus tachycardia Otherwise normal ECG When compared with ECG of 28-MAR-2022 19:00, No significant change was found Heart rate has increased Referred By: Madalyn Zamora Electronically Signed By:ELIZABETH BENJAMIN MD
[2022-05-12 03:16] LABS: Influenza A PCR NEGATIVE (Negative); Influenza B PCR NEGATIVE (Negative); Resp Syncy Virus RNA Qual PCR NEGATIVE (Negative); SARS COV2 PCR INHOUSE NEGATIVE (Negative)
[2022-05-12] MEDS: vancomycin HCL 1,000 MG in 0.9 % Sodium Chloride 250 ML 270 MG IV (03:45)
--- NOTE | 2022-05-12 04:15 | PC.NURSE ---
pt's HR in 170s-180s Dr Wood's order STAT order for adenosine 6mg IV push. Adenosine given by this RN. HR 105 BP 126/63 provider at bedside
--- OUTSIDE RECORDS SUMMARY | 2022-05-12 04:44 | XMS_ITS | Encounter Summary ---
:1965 Author Care Team Providers Name Role Phone [facility] Referring Provider [phone] [facility] Referring Provider [phone] Reason for Visit Abdominal Pain Assessment and Plan 1. Chest pain Chronic. Symptoms for months. EKG with no ST-T wave changes. Advised to f/u with primary care team for abdominal US/ECHO and possible CT chest given chronicity of symtpoms Discussion Note: None recorded.Patient educational handouts: No information available. Plan of Care Reminders Provider Appointments None recorded. ? ? Lab None recorded. ? ? Referral None recorded. ? ? Procedures None recorded. ? ? Surgeries None recorded. ? ? Imaging None recorded. ? ? Medications Name Start Date ? ? acetaminophen 500 mg tablet ? TAKE 2 TABLETS BY MOUTH EVERY 8 HOURS NEEDED FOR P AIN Alcohol Prep Pads ? TEST BLOOD SUGAR THREE TIMES DAILY aspirin 81 mg tablet,delayed release ? TAKE 1 TABLET BY MOUTH EVERY MORNING atorvastatin 40 mg tablet ? TAKE 1 TABLET BY MOUTH EVERY MORNING bacitracin 500 unit/gram topical ointment ? APPLY TO WOUND ON FEET TWICE DAILY blood pressure test kit-large cuff ? USE TO CHECK BLOOD PRESSURE DAILY AND NEEDED FOR S YMPTOMS cefadroxil 500 mg capsule ? TAKE 1 CAPSULE BY MOUTH EVERY TWELVE HOURS cefuroxime axetil 250 mg tablet ? TAKE 1 TABLET BY MOUTH TWICE DAILY FOR 10 DAYS cephalexin 500 mg capsule ? TAKE 1 CAPSULE BY MOUTH EVERY 6 HOURS FOR 10 DAYS cholecalciferol (vitamin D3) 25 mcg (1,000 unit) table t ? TAKE 1 TABLET BY MOUTH EVERY MORNING clopidogrel 75 mg tablet ? TAKE 1 TABLET BY MOUTH EVERY MORNING clotrimazole 1 % topical cream ? APPLY TO AFFECTED AREA(S) AND SURROUNDI NG AREA(S) TWICE DAILY IN THE MORNING AND EVENING cyclobenzaprine 10 mg tablet ? TAKE 1 TABLET BY MOUTH THREE TIMES DAILY NEEDED FO R MUSCLE SPASMS dexamethasone 2 mg tablet ? TAKE 3 TABLETS BY MOUTH EVERY DAY FOR 7 DAYS docusate sodium 100 mg capsule ? TAKE 1 CAPSULE BY MOUTH EVERY DAY NEEDED FOR CONST IPATION doxycycline hyclate 100 mg capsule ? TAKE 1 CAPSULE BY MOUTH TWICE DAILY FOR 10 DAYS ezetimibe 10 mg tablet ? TAKE 1 TABLET BY MOUTH EVERY MORNING folic acid 1 mg tablet ? TAKE 1 TABLET BY MOUTH EVERY MORNING FreeStyle [place] Lite kit ? USE TO TEST BLOOD SUGAR DIRECTED FreeStyle Lite Strips ? TEST BLOOD SUGAR THREE TIMES DAILY Invokana 100 mg tablet ? TAKE 1 TABLET BY MOUTH DAILY BEFORE THE FIRST MEAL OF THE DAY Jardiance 10 mg tablet ? TAKE 1 TABLET BY MOUTH EVERY MORNING Jardiance 25 mg tablet ? TAKE 1 TABLET BY MOUTH EVERY MORNING Lantus Solostar U-100 Insulin 100 unit/mL (3 mL) subcu taneous pen ? INJECT 40 UNITS SUBCUTANEOUSLY ONCE DAILY WITH BREAKF AST lidocaine 5 % topical patch ? APPLY 1 PATCH TOPICALLY TO SKIN, LEAVE ON FOR 12 HOURS AND OFF FOR 12 HOURS DIRECTED. NEEDED. lidocaine-prilocaine 2.5 %-2.5 % topical cream ? APPLY TOPICALLY TO AFFECTED AREA(S) ONCE DAILY NEE DED FOR PAIN lisinopril 20 mg tablet ? TAKE 1 TABLET BY MOUTH EVERY MORNING lisinopril 20 mg-hydrochlorothiazide 25 mg tablet ? TAKE 1 TABLET BY MOUTH EVERY MORNING metformin 1,000 mg tablet ? TAKE 1 TABLET BY MOUTH TWICE DAILY IN T HE MORNING AND IN THE EVENING WITH MEALS omeprazole 20 mg capsule,delayed release ? TAKE 1 CAPSULE BY MOUTH AT BEDTIME pantoprazole 40 mg tablet,delayed release ? TAKE 1 TABLET BY MOUTH AT BEDTIME pioglitazone 15 mg tablet ? TAKE 1 TABLET BY MOUTH EVERY MORNING silver sulfadiazine 1 % topical cream ? APPLY TOPICALLY TO AFFECTED AREA(S) DIRECTED BY [facility] terbinafine HCl 250 mg tablet ? TAKE 1 TABLET BY MOUTH DAILY TRUEplus Lancets 33 gauge ? USE TO TEST BLOOD SUGAR THREE TIMES DAILY UltiCare Pen Needle 31 gauge x 5/16 ? USE ONCE DAILY DIRECTED Medications Administered None recorded. Vitals Blood Pressure 132/81 mm[Hg] Results Lab Results None recorded. Allergies None recorded. Problems None recorded. Procedures None recorded. Vaccine List None recorded. Social History None recorded. Functional Status Unknown. Past Encounters 05/04/2022 Chest Pain Anish Rocha MD: [address] [facility], [place] [address], Ph. History of Present Illness Note: <p><strong>HPI: </strong>

Dx. Chronic Kidney disease Patient re ports having pain on upper right abdomen radiating to the chest, pain intermittent. No nausea, vomiting fever , or GAONA. Pt states pain is in middle of chest. Not radiating to either side. Schedule for abd US next week. Pt declined ER. Ok with instED assessment referral.
........................ ................................................................................ .....................................

<strong>CRC Nursing Assessment: </strong>

Comments: Member stated that the pain has been on going / intermittent on and of for a few months . Member had a mammogram in january , and was found to have a lump / but a follow up was found that it decreased by 50%. In october , was given angiogram and was placed a balloon angioplasty , member was put on plavix, but is now off but continues on ASA Member is aware to call 911 if symptoms increase > sdonner</p><p>................................................................. ............................................................................

<strong>Ladies Attendant Note: </strong>

Patient chief complaint of epigastric pain. Patient states ongoing pain for one month following angiogram. Patient states the pain begins at her ribs, goes through her lungs, and into her breasts. patient vitals WNL, 108 HR noted. 12 lead EKGperformed, showing 108 HR and occasional PVC. C contacted. Patient instructed to follow up with PCP for sonography. Education given, red flags discussed.
..................................... ................................................................................ ........................

<strong>Disposition: </strong>

Fulfilled</p>Review of Systems: ROS as noted in the HPI Review of Systems None recorded. Physical Exam None recorded.
--- OUTSIDE RECORDS SUMMARY | 2022-05-12 04:44 | XMS_ITS ---
:1965 Author Care Team Providers Name Role Phone [facility] Referring Provider [phone] [facility] Referring Provider [phone] Allergies None recorded. Medications Name Status Start Date Stop Date ? ? acetaminophen 500 mg tablet Active ? Not available TAKE 2 TABLETS BY MOUTH EVERY 8 HOURS NEEDED FOR PAIN Alcohol Prep Pads Active ? Not available TEST BLOOD SUGAR THREE TIMES DAILY aspirin 81 mg tablet,delayed release Active ? Not available TAKE 1 TABLET BY MOUTH EVERY MORNING atorvastatin 40 mg tablet Active ? Not av ailable TAKE 1 TABLET BY MOUTH EVERY MORNING bacitracin 500 unit/gram topical ointment Active ? Not available blood pressure test kit-large cuff Active ? Not available USE TO CHECK BLOOD PRESSURE DAILY AND NEEDED FOR SYMPTOMS cefadroxil 500 mg capsule Active ? Not av ailable TAKE 1 CAPSULE BY MOUTH EVERY TWELVE HOURS cefuroxime axetil 250 mg tablet Active ? Not available TAKE 1 TABLET BY MOUTH TWICE DAILY FOR 10 DAYS cephalexin 500 mg capsule Active ? Not av ailable TAKE 1 CAPSULE BY MOUTH EVERY 6 HOURS FOR 10 DAYS cholecalciferol (vitamin D3) 25 mcg (1,000 unit) tablet Active ? Not available TAKE 1 TABLET BY MOUTH EVERY MORNING clopidogrel 75 mg tablet Active ? Not sanchez ilable clotrimazole 1 % topical cream Active ? N ot available APPLY TO AFFECTED AREA(S) AND SURROUNDI NG AREA(S) TWICE DAILY IN THE MORNING AND EVENING cyclobenzaprine 10 mg tablet Active ? Not available TAKE 1 TABLET BY MOUTH THREE TIMES DAILY NEEDED FOR MUSCLE S PASMS dexamethasone 2 mg tablet Active ? Not av ailable TAKE 3 TABLETS BY MOUTH EVERY DAY FOR 7 DAYS docusate sodium 100 mg capsule Active ? N ot available TAKE 1 CAPSULE BY MOUTH EVERY DAY NEEDED FOR CONSTIPATION doxycycline hyclate 100 mg capsule Active ? Not available TAKE 1 CAPSULE BY MOUTH TWICE DAILY FOR 10 DAYS ezetimibe 10 mg tablet Active ? Not avail able TAKE 1 TABLET BY MOUTH EVERY MORNING folic acid 1 mg tablet Active ? Not avail able TAKE 1 TABLET BY MOUTH EVERY MORNING FreeStyle [place] Lite kit Active ? Not a vailable USE TO TEST BLOOD SUGAR DIRECTED FreeStyle Lite Strips Active ? Not availa ble TEST BLOOD SUGAR THREE TIMES DAILY Invokana 100 mg tablet Active ? Not avail able TAKE 1 TABLET BY MOUTH DAILY BEFORE THE FIRST MEAL OF THE DAY Jardiance 10 mg tablet Active ? Not avail able TAKE 1 TABLET BY MOUTH EVERY MORNING Jardiance 25 mg tablet Active ? Not avail able TAKE 1 TABLET BY MOUTH EVERY MORNING Lantus Solostar U-100 Insulin 100 unit/mL (3 mL) subcutaneous pe n Active ? Not available INJECT 40 UNITS SUBCUTANEOUSLY ONCE DAILY WITH BREAKFAST lidocaine 5 % topical patch Active ? Not available APPLY 1 PATCH TOPICALLY TO SKIN, LEAVE ON FOR 12 HOURS AND OFF FOR 12 HOURS DIRECTED. NEEDED. lidocaine-prilocaine 2.5 %-2.5 % topical cream Active ? Not available APPLY TOPICALLY TO AFFECTED AREA(S) ONCE DAILY NEEDED FOR PA IN lisinopril 20 mg tablet Active ? Not avai lable TAKE 1 TABLET BY MOUTH EVERY MORNING lisinopril 20 mg-hydrochlorothiazide 25 mg tablet Active ? Not available metformin 1,000 mg tablet Active ? Not av ailable TAKE 1 TABLET BY MOUTH TWICE DAILY IN T HE MORNING AND IN THE EVENING WITH MEALS omeprazole 20 mg capsule,delayed release Active ? Not available TAKE 1 CAPSULE BY MOUTH AT BEDTIME pantoprazole 40 mg tablet,delayed release Active ? Not available TAKE 1 TABLET BY MOUTH AT BEDTIME pioglitazone 15 mg tablet Active ? Not av ailable TAKE 1 TABLET BY MOUTH EVERY MORNING silver sulfadiazine 1 % topical cream Active ? Not available terbinafine HCl 250 mg tablet Active ? No t available TAKE 1 TABLET BY MOUTH DAILY TRUEplus Lancets 33 gauge Active ? Not av ailable USE TO TEST BLOOD SUGAR THREE TIMES DAILY UltiCare Pen Needle 31 gauge x 5/16 Active ? Not available USE ONCE DAILY DIRECTED Problems None recorded. Procedures None recorded. Results Lab Results None recorded. Past Encounters 05/04/2022 Chest Pain Anish Rocha MD: [address] [place] [address], Ph. Social History None recorded. Vaccine List None recorded. Plan of Care Reminders Provider Appointments None recorded. ? ? Lab None recorded. ? ? Referral None recorded. ? ? Procedures None recorded. ? ? Surgeries None recorded. ? ? Imaging None recorded. ? ? Vitals Blood Pressure 132/81 mm[Hg]
[2022-05-12] MEDS: Adenosine 6 MG/2 ML VIAL IVPUSH (04:55)
[2022-05-12] MEDS: Metoprolol Tartrate 5 MG/5 ML VIAL 2.5 MG IVPUSH (04:55)
[2022-05-12] MEDS: Heparin Sodium,Porcine 5,000 UNIT/ML VIAL 5000 UNIT SUBCUT (05:37)
[2022-05-12 06:15] LABS: Basophils Absolute Auto 0.1 X10*3/uL (0.0-0.2); Basophils Percent Auto 0.2 % (0-2); Eosinophils Absolute Auto 0.2 X10*3/uL (0.0-0.4); Eosinophils Percent Auto 0.8 % (0-4); Hematocrit 21.8 % (37.0-47.0); Imm Gran Abs Auto 0.56 X10*3/uL (0.00-0.03); Imm Gran Pct Auto 2.3 % (0.0-0.4); Lymphocytes Absolute Auto 2.4 X10*3/uL (1.2-4.9); Lymphocytes Percent Auto 9.7 % (20-40); MANUAL DIFF FLAG SCAN; Mean Corpuscular HGB Conc 30.7 g/dl (31.0-35.0); Mean Corpuscular Hemoglobin 19.1 pg (27.0-33.0); Mean Platelet Volume 9.5 fL (9.4-12.3); Monocytes Absolute Auto 1.9 X10*3/uL (0.1-1.2); Monocytes Percent Auto 7.6 % (2-11); Neutrophils Absolute Auto 19.3 x10*3/uL (2.0-8.3); Neutrophils Percent Auto 79.4 % (45-73); PLT CLUMP 1; Red Blood Count 3.51 X10*6/uL (4.20-5.50); Red Cell Distribution Width 15.9 % (11.0-16.0); SCAN SMEAR FLAG 1
[2022-05-12 06:18] LABS: Mean Corpuscular Volume 62.1 fL (80.0-98.0); White Blood Count 24.3 X10*3/uL (4.8-10.8)
[2022-05-12 06:20] LABS: Hemoglobin 6.7 g/dl (12.0-16.0)
[2022-05-12 06:32] LABS: Anion Gap 24 (12-20); Blood Urea Nitrogen 28 mg/dL (9-16); Calcium 8.5 mg/dL (8.4-10.2); Carbon Dioxide 17 mmol/L (22-29); Chloride 95 mmol/L (96-108); Creatinine Clr Calc Pharmacy 24.1; Estimated Glomerular Filt Rate 22; Glucose Random 332 mg/dL (60-115); Potassium 4.9 mmol/L (3.3-5.1); Sodium 131 mmol/L (135-145)
[2022-05-12 06:33] LABS: Platelet Count 621 X10*3/uL (160-400); SLIDE REVIEW VERIFIED; Troponin-I High Sensitivity 7.9 ng/L (<3.5-17.0)
[2022-05-12 06:44] LABS: C Reactive Protein 34.35 mg/dL (< or = 0.50)
[2022-05-12 06:47] LABS: Appearance Urine Turbid; Color Urine Dark Yellow; Glucose Urine UA 500 mg/dL (Negative); Leukocyte Esterase Urine Large (3+) (Negative); Nitrite Urine Negative (Negative); PH 6.5 (5.0-9.0); UMIC TRIGGER UACC YES; Urine Blood Negative (Negative); Urine Ketones Trace mg/dL (Negative); Urine Protein 100 (2+) mg/dL (Neg-Trace)
--- NOTE | 2022-05-12 06:53 | PM.IMHP ---
History of Present Illness Date of Service: 05/12/22 Chief Complaint: leg swelling This is a 56-year-old female with an extensive past medical history that includes CKD, HTN, history of osteomyelitis, peripheral vascular disease status post left anterior tibial plasty, microcytic hyperchromic anemia, IBS, history of cholelithiasis, diabetes, HLD, history of water intoxication syndrome, who presents to the hospital with complaints of left foot swelling, pain, as well as development of a blister and skin changes in her foot. Patient reports that she has a chronic wound at the base of her left foot that is being followed by wound care every 2 weeks with no significant changes or noted acute infection, but she developed an ulcer on top of her same foot, and noticed skin changes today therefore she was concerned and decided to come to the hospital. Patient also reports that she had a balloon plasty in the same leg in October of this year. Patient also has various other complaints including chest pain, that is sharp stabbing, radiating to the left arm, as well as to the back. She reports shortness of breath with no cough, she has significant orthopnea and PND. She reports left arm pain that is heavy. The patient reports that she started having these pain about a week ago intermittent, at rest, with no relieving or exacerbating factors. She states that the pain in the center of the chest is radiating to the back. She is also complaining of abdominal pain, reports that she has 5 different pains in her abdomen, worse in the right upper quadrant. She is being followed by GI, had an ultrasound done the day of presentation, and she was told in the past that she had gallbladder stones. Patient is also complaining of shortness of breath, mostly with exertion, she also has orthopnea and PND. On arrival to the ED her vitals are significant for heart rate of 118, blood pressure 114/55, temp of 99.6 degrees, Labs are significant for 25.2, hemoglobin of 7.9 which is around her baseline from previous admissions, hematocrit 25.3, platelet count of 758, sodium of 132, chloride 90, anion gap of 23, BUN 22, creatinine of 1.59 with a baseline of 0.97, alk-phos of 280, Chest CT shows no acute findings identified mild upper lobe predominant emphysema, she has few scattered lung nodules measuring up to 3 mm, nonspecific Foot x-ray shows soft tissue swelling throughout the foot as well as focus of plantar soft tissue gas no 9 mint of the 2nd 3rd and 4th MTP joints While in the ED patient went into SVT, with a heart rate into the 180s, she received 6 mg of adenosine, converted to sinus rhythm with a heart rate of 105. She states that she was sleeping when this occurred, she was asymptomatic. Review of Systems Review of Systems: Yes all other systems are reviewed and are negative [facility] Medical History Acid reflux Anemia in chronic kidney disease (CKD) Arthritis Carpal tunnel syndrome Chronic ulcer of right foot Degenerative joint disease of spine Hypertension Irritable bowel syndrome Leukocytosis Obesity Osteomyelitis Osteoporosis PAD (peripheral artery disease) Peripheral neuropathy Prolapsed uterus Rectal prolapse Retinopathy Toe ulcer due to DM Family History Maternal Grandmother Diabetes Maternal Grandfather Heart disease Cancer of unknown origin Mother HTN (hypertension) Paternal Uncle Thalassemia Surgical History H/O dilation and curettage Social History Household Members: Children Housing: Apartment Are you a primary manager intensive care unit to a significant other at home: No Do you presently have visiting nurse or other home services: No Alcohol intake: never Patient Tobacco Use Status: Never used Tobacco Smoked in Last 30 Days: No Second Hand Smoke Exposure: No Use of substances other than those prescribed or required for medical reasons: No Advance Directives: No Advance Directives Information Provided: No service: No Current occupational status: disabled Meds Allergies Allergy/AdvReac Type Severity Reaction Status Date / Time No Known Allergies Allergy Unknown UNKNOWN Verified 02/06/22 10:49 [NO KNOWN ALLERGIES] Active Medications: Current Medications Acetaminophen (Acetaminophen 325 Mg Tablet) 650 mg PO Q6H PRN PRN Reason: Pain, Mild (Pain Scale 1-3) Docusate Sodium (Docusate Sodium 100 Mg Capsule) 100 mg PO DAILY PRN PRN Reason: Constipation Heparin Sodium (Porcine) (Heparin Sodium,Porcine 5,000 Unit/Ml Vial) 5,000 unit SUBCUT Q12H CHACHA Last Admin: 05/12/22 05:37 Dose: 5,000 unit Hydromorphone HCl (Hydromorphone Hcl 1 Mg/Ml Syringe) 0.5 mg IVPUSH Q4H PRN; Protocol PRN Reason: Pain, Severe (Pain Scale 7-10) Vancomycin HCl 1,250 mg/ (Sodium Chloride) 250 mls @ 166.667 mls/hr IV Q24H CHACHA Piperacillin Sod/Tazobactam (Sod 3.375 gm/ Sodium Chloride) 50 mls @ 100 mls/hr IV Q6H CHACHA Ondansetron HCl (Ondansetron Hcl 4 Mg/2 Ml Vial) 4 mg IVPUSH Q8H PRN PRN Reason: Nausea and Vomiting Pharmacy Consult (Consult Rx Vancomycin Dosing) 1 each MISCELLANE DAILY PRN PRN Reason: Consult order Pharmacy Consult (Consult Rx Vancomycin Dosing) 1 each MISCELLANE DAILY PRN PRN Reason: Consult order Sodium Chloride (0.9 % Sodium Chloride Flush 3 Ml Syringe) 3 ml IVFLUSH QSHIFT [facility] Home Medications Medication Instructions Recorded Confirmed Last Taken Type aspirin 81 mg tablet,delayed 1 tab PO DAILY 07/02/21 03/28/22 03/28/22 History release atorvastatin 40 mg tablet 1 tab PO DAILY 07/02/21 03/28/22 03/28/22 History cholecalciferol (vitamin D3) 25 1 tab PO DAILY 07/02/21 03/28/22 03/28/22 History mcg (1,000 unit) tablet insulin glargine 100 unit/mL (3 40 unit subcut DAILY 07/02/21 03/28/22 03/28/22 History mL) subcutaneous pen (Lantus Solostar U-100 Insulin) metformin 1,000 mg tablet 1 tab PO BID 07/02/21 03/28/22 03/28/22 History blood sugar diagnostic (FreeStyle #10 ea 09/18/21 01/16/22 Unknown History Lite Strips) lancets 33 gauge (TRUEplus Lancets) #100 ea 09/18/21 01/16/22 Unknown History pen needle, diabetic 31 gauge x #1,200 ea 09/18/21 01/16/22 Unknown History 16 (UltiCare Pen Needle) bacitracin 500 unit/gram topical 1 appl topical TID 12/19/21 03/28/22 03/28/22 History ointment silver sulfadiazine 1 % topical 1 appl topical DAILY 01/15/22 03/28/22 03/28/22 History cream cefuroxime axetil 250 mg tablet 1 tab PO BID 03/28/22 03/28/22 03/28/22 History acetaminophen 500 mg tablet 2 tab PO Q8H PRN pain 05/12/22 Unknown History empagliflozin 25 mg tablet 1 tab PO QAM 05/12/22 05/12/22 Unknown History (Jardiance) ezetimibe 10 mg tablet 1 tab PO QAM 05/12/22 Unknown History lidocaine-prilocaine 2.5 %-2.5 % topical DAILY PRN pain 05/12/22 Unknown History topical cream pantoprazole 40 mg tablet,delayed 1 tab PO BEDTIME 05/12/22 Unknown History release pioglitazone 15 mg tablet 1 tab PO QAM 05/12/22 Unknown History Physical Exam Vital Signs and Narrative: Vital Signs: Last Vital Signs Temp 98.6 F 05/12/22 06:31 Pulse 100 05/12/22 06:31 Resp 23 H 05/12/22 06:31 BP 129/60 05/12/22 06:31 Pulse Ox 100 05/12/22 06:31 O2 Del Method 05/12/22 06:31 BMI result Body Mass Index 32.0 Const: Other: Patient is sitting up in bed General: cooperative and no acute distress Orientation/consciousness: patient oriented x3 Eyes: General: appearance normal, both eyes and all related structures Chest: Other: Reproducible chest pain on palpation Resp: Effort & Inspection: normal respiratory effort Cardio: Rate: regular rate Rhythm: regular rhythm GI: Palpation (GI): Soft to palpation Auscultation: normal bowel sounds Neuro: General: patient oriented x3 Cognition (Neuro): normal cognition Extrem: Other: Left foot has a wound at the base that is covered with dressing, dressing appears clean. Dorsum of left foot also has a blister with expose underlying scan, erythema, tenderness, edema Results Labs CBC and Chem 7: 05/12/22 06:04 05/12/22 06:04 Labs: Laboratory Results - last 24 hr 05/11/22 05/11/22 05/11/22 21:06 21:06 21:06 MCV 61.3 L MCH 19.1 L MCHC 31.2 RDW 15.8 Plt Count 758 H MPV 9.0 L Immature Gran % (Auto) 1.7 H Neut % (Auto) 82.5 H Lymph % (Auto) 7.[address] [place] % (Auto) 7.2 Eos % (Auto) 0.4 Baso % (Auto) 0.3 Lymph # (Auto) 2.0 [place] # (Auto) 1.8 H Eos # (Auto) 0.1 Baso # (Auto) 0.1 Abs Immat Gran (auto) 0.43 H Absolute Neuts (auto) 20.8 H Absolute Nucleated RBC 0.000 Nucleated RBC % (auto) 0.0 Smear Tech's Comments VERIFIED Anion Gap 23 H Estim Creat Clear Calc 34.7 Estimated GFR 33 Random Glucose 339 H Lactic Acid 1.7 Calcium 9.4 Total Bilirubin 1.2 H AST 16 ALT 15 Alkaline Phosphatase 280 H D Troponin I High Sens C-Reactive Protein Cancelled Total Protein 8.0 Albumin 3.6 Urine Color Urine Appearance Urine pH Ur Specific [place] Urine Protein Urine Glucose (UA) Urine Ketones Urine Blood Urine Nitrite Ur Leukocyte Esterase Influenza Type A (PCR) Influenza Type B (PCR) RSV RNA Qual (PCR) SARS-CoV-2 RNA (RT-PCR) 05/12/22 05/12/22 05/12/22 02:17 02:18 06:04 MCV 62.1 L MCH 19.1 L MCHC 30.7 L RDW 15.9 Plt Count 621 H MPV 9.5 Immature Gran % (Auto) 2.3 H Neut % (Auto) 79.4 H Lymph % (Auto) 9.[address] % (Auto) 7.6 Eos % (Auto) 0.8 Baso % (Auto) 0.2 Lymph # (Auto) 2.4 [place] # (Auto) 1.9 H Eos # (Auto) 0.2 Baso # (Auto) 0.1 Abs Immat Gran (auto) 0.56 H Absolute Neuts (auto) 19.3 H Absolute Nucleated RBC 0.000 Nucleated RBC % (auto) 0.0 Smear Tech's Comments VERIFIED Anion Gap Estim Creat Clear Calc Estimated GFR Random Glucose Lactic Acid 1.1 Calcium Total Bilirubin AST ALT Alkaline Phosphatase Troponin I High Sens C-Reactive Protein Total Protein Albumin Urine Color Urine Appearance Urine pH Ur Specific [place] Urine Protein Urine Glucose (UA) Urine Ketones Urine Blood Urine Nitrite Ur Leukocyte Esterase Influenza Type A (PCR) NEGATIVE Influenza Type B (PCR) NEGATIVE RSV RNA Qual (PCR) NEGATIVE SARS-CoV-2 RNA (RT-PCR) NEGATIVE 05/12/22 05/12/22 05/12/22 06:04 06:04 06:07 MCV MCH MCHC RDW Plt Count MPV Immature Gran % (Auto) Neut % (Auto) Lymph % (Auto) [place] % (Auto) Eos % (Auto) Baso % (Auto) Lymph # (Auto) [place] # (Auto) Eos # (Auto) Baso # (Auto) Abs Immat Gran (auto) Absolute Neuts (auto) Absolute Nucleated RBC Nucleated RBC % (auto) Smear Tech's Comments Anion Gap 24 H Estim Creat Clear Calc 24.1 Estimated GFR 22 Random Glucose 332 H Lactic Acid Calcium 8.5 D Total Bilirubin AST ALT Alkaline Phosphatase Troponin I High Sens 7.9 D C-Reactive Protein 34.35 H Total Protein Albumin Urine Color Urine Appearance Urine pH Ur Specific [place] Urine Protein Urine Glucose (UA) Urine Ketones Urine Blood Urine Nitrite Ur Leukocyte Esterase Influenza Type A (PCR) Influenza Type B (PCR) RSV RNA Qual (PCR) SARS-CoV-2 RNA (RT-PCR) 05/12/22 06:39 MCV MCH MCHC RDW Plt Count MPV Immature Gran % (Auto) Neut % (Auto) Lymph % (Auto) [place] % (Auto) Eos % (Auto) Baso % (Auto) Lymph # (Auto) [place] # (Auto) Eos # (Auto) Baso # (Auto) Abs Immat Gran (auto) Absolute Neuts (auto) Absolute Nucleated RBC Nucleated RBC % (auto) Smear Tech's Comments Anion Gap Estim Creat Clear Calc Estimated GFR Random Glucose Lactic Acid Calcium Total Bilirubin AST ALT Alkaline Phosphatase Troponin I High Sens C-Reactive Protein Total Protein Albumin Urine Color Dark Yellow Urine Appearance Turbid Urine pH 6.5 Ur Specific [place] 1.020 Urine Protein 100 (2+) H Urine Glucose (UA) 500 H Urine Ketones Trace Urine Blood Negative Urine Nitrite Negative Ur Leukocyte Esterase Large (3+) H Influenza Type A (PCR) Influenza Type B (PCR) RSV RNA Qual (PCR) SARS-CoV-2 RNA (RT-PCR) Imaging Radiologist's Impressions: Impressions Foot X-Ray 05/12/22 02:45 IMPRESSION: 1. Soft tissue swelling throughout the foot as well as a focus of plantar soft tissue gas. No definite radiographic findings of osteomyelitis; however, further evaluation with MRI would be helpful. 2. Malalignment at the second, third, and fourth MTP joints as noted above, new compared to prior. Adjacent age-indeterminate fracture at the base of the second metatarsal cannot be excluded. Additional fracture of the medial navicular is suspected. Chest CT 05/12/22 05:35 IMPRESSION: 1. No acute findings identified. Mild upper lobe predominant emphysema. 2. Few scattered lung nodules measuring up to 3 mm, nonspecific and that significant change from 01/21/2022. According to the UPDATED 2017 Fleischner Society recommendations, the advised follow-up imaging for solid nodules < 6 mm is: LOW RISK PATIENT: No routine follow-up. HIGH RISK PATIENT: Optional CT at 12 months. 3. Coronary artery calcifications. Correlation with cardiac risk factors is recommended. Assessment and Plan (1) Sepsis: Status: Acute (2) Diabetic foot ulcer: Status: Acute (3) LUIS (acute kidney injury): Status: Acute (4) Chest pain: Status: Acute (5) Abdominal pain: Status: Acute (6) Hyponatremia: Status: Acute (7) Microcytic hypochromic anemia: Status: Acute (8) SVT (supraventricular tachycardia): Status: Acute Plan 56-year-old female with various past medical history that includes diabetes, peripheral vascular disease, chronic toe osteomyelitis, history of hyponatremia, history of water intoxication syndrome, HLD, presents to the hospital with complaints of new wound on the left foot # sepsis - likely multifactorial secondary to diabetic foot ulcer, as well as UTI - patient tachycardic,, tachypneic, with leukocytosis - will treat with IV antibiotics - follow cultures # diabetic foot ulcer - elevated ESR and CRP - will obtain MRI of the foot to rule out osteomyelitis - vascular surgery consulted - patient also has underlying peripheral vascular disease which makes healing difficult - IV antibiotics - follow cultures - will obtain arterial Doppler given her history of PAD # LUIS - possibly pre renal - patient received 2 L of IV fluids with worsening in her creatinine function - at this time will hold fluids - will obtain BNP as patient is also complaining of orthopnea and PND, as well as shortness of breath on exertion - if elevated BNP, could consider Lasix, # SVT - patient went to an episode of SVT with a heart rate in the 180s - likely secondary to acute illness - will obtain echocardiogram, cardiology consult # hyponatremia - acute hyponatremia - has history of water intoxication syndrome - will limit her water intake to 1500 CC - hold fluids # chest pain - troponin negative - no EKG changes suggestive of ACS - CT chest shows no acute significant finding to explain her chest pain - hemodynamically stable with stable blood pressure- making dissection less likely - supportive measure # abdominal pain - has history of cholelithiasis - ultrasound of the abdomen was done the day of presentation- follow findings - patient already following up with GI on outpatient basis, consider consulting GI pending ultrasound of the abdomen findings that was done on the day of presentation # microcytic hyperchromic anemia - hemoglobin stable - follow CBC # diabetes - continue home insulin - hold oral antihyperglycemics - low-dose sliding scale insulin - diabetic diet # hypertension - stable - continue antihypertensives DVT prophylaxis: Heparin subQ Given patient's requirement for IV antibiotics and further management of diabetic foot ulcer patient required minimum 2 night inpatient hospital stay for further management Quality Stroke Does the patient have a stroke diagnosis?: No VTE Prior VTE?: No VTE Risk Level:: Medical - moderate - high VTE Device Contraindication: Treatment Not Indicated VTE Drug Contraindication: N/A - Med Ordered
[2022-05-12 06:58] LABS: Bacteria Urine 4+ (None Seen); RBC Urine 0-2 /HPF (0-2); Squamous Epithelial Cell Urine >20 /HPF (0-2); UACC Culture Trigger YES; WBC Urine >50 /HPF (0-5)
[2022-05-12 07:12] LABS: B Type Natriuretic Peptide 104 pg/mL (<100)
--- NOTE | 2022-05-12 08:03 | PHA.PROG ---
Admission Date/Time: May 12, 2022 04:39 Indication: BONE AND JOINT INFECTION Weight in k.389 kg Adjusted body weight in [place] body weight in Kg: Obesity Dosing Indication % IBW:63% OVER IBW Serum Creatinine - Last 168 Hours 05/11/22 05/12/22 21:06 06:04 Creatinine 1.59 H 2.28 H Estimated CrCl and GFR - Last 168 Hours 05/11/22 05/12/22 21:06 06:04 Estim Creat Clear Calc 34.7 24.1 Estimated GFR 33 22 Vancomycin Loading Dose: 1 GRAM, THEN ADDITIONAL 500 MG Current Vancomycin Dosing Regimen: 500 MG Q 24 HOURS Vancomycin Monitoring using AUC goal of 400 - 600 range with trough as surrogate marker: Date and Time for next Vancomycin Level to be drawn:05/14/22 0600 Pharmacist Comments on Vancomycin Plan: PT INITIALLY ONLY GOT 1 GRAM, INCREASED BY ANOTHER 500 MG TO MAKE A 1500 MG LOAD Vancomycin dosing will take advantage of Verastem as a clinical decision support tool that uses Bayesian modeling to calculate individual patient's pharmacokinetic parameters and forecast the patient's drug concentration time course with the target goal AUC 24 range of 400 - 600 mg/L/hr.
[2022-05-12] MEDS: cefEPime HCl 2 GM in 0.9 % Sodium Chloride 50 ML IV (08:40)
[2022-05-12] MEDS: 0.9 % Sodium Chloride Flush 3 ML SYRINGE IVFLUSH ×2 (08:44→16:03)
--- NOTE | 2022-05-12 08:50 | MHC.CM.PN ---
PT REPORTS SHE LIVES AT HOME WITH HER ADULT CHILDREN AND IS INDEPENDENT WITH CARE SHE USES A [facility] TO AMBULATE WHEN NEEDED SHE HAS NO HOME SERVICES SHE REPORTS SHE DID NOT GET THE VACCINES FOR COVID SHE SEES LEIA CARTER NP AT [facility] FOR PRIMARY CARE COPY OF HCP REQUESTED IMM DELIVERED, COPY SENT TO [facility] CURRENT DC PLAN IS HOME VS HOME WITH [facility] PT WILL USE [facility] AT DC [phone]
[2022-05-12] MEDS: Insulin Lispro 100 UNIT/ML 3 ML VIAL SUBCUT ×3 (08:52→21:44)
[2022-05-12] MEDS: vancomycin HCL 500 MG in 0.9 % Sodium Chloride 100 ML 110 MG IV (09:01)
[2022-05-12 09:04] LABS: Glucose, Whole Blood 342 mg/dL (60-115)
--- NOTE | 2022-05-12 09:10 | PC.NURSE ---
Pt alert/oriented. Sinus tach on tele rate low 100s. Skin pale, warm and dry. Speaking full sentences. Left ft swollen with dressing. Pt ambulatory with slow steady gait. Denies any blood in vomit/stool, reports h/o anemia. States pain 7-9, denies pain medication or Tylenol at this time.
--- NOTE | 2022-05-12 09:17 | PHA.MEDREC ---
Pharmacy Consult ? Medication Reconciliation Pharmacy has completed the medication reconciliation. Patient reports being taken off insulin and cholesterol medications. Still taking metformin.
[2022-05-12 09:56] LABS: Iron 25 mcg/dL (30-160); Magnesium 1.2 mg/dL (1.6-2.6); Percent Iron Saturation 16 % (15-50); Total Iron Binding Capacity 153 mcg/dL (228-428); Unsaturated Iron Binding 128 ug/dL
[2022-05-12] MEDS: Insulin Glargine,Hum.rec.anlog 100 UNIT/ML 10 ML VIAL 20 UNIT SUBCUT (10:04)
--- NOTE | 2022-05-12 10:16 | PC.NURSE ---
New dsg applied to left foot. moderate serosang drainage noted, Also noted to bottom of foot circular wound (pt sees wound clinic) clean around wound.
--- NOTE | 2022-05-12 10:30 | PC.NURSE ---
Spoke with pt regarding second IV access, pt declines at this time. Awaiting hospitalist consult prior to start PRBC as pt appears apprehensive regarding blood transfusion. Dr Servin aware
[2022-05-12 10:57] LABS: Estimated Average Glucose 177 mg/dL; Hemoglobin A1c % 7.8 %
[2022-05-12 11:03] LABS: Erythrocyte Sedimentation Rate > 140 MM/HR (0-20)
[2022-05-12 11:04] LABS: Ferritin 2284 ng/mL (10-250)
[2022-05-12] MEDS: Magnesium Sulfate/H2O 2 GM/50 ML PIGGYBACK IV (11:04)
--- NOTE | 2022-05-12 11:19 | PM.CNCAR ---
History of Present Illness History of Present Illness Date of Service: 05/12/22 Chief complaint: Foot wound Narrative: This is a cardiology consultation regarding SVT. Patient came to the ER for foot swelling related to diabetic foot ulcer according documentation. In that setting, she was the ER when she developed SVT. It seems that she got adenosine and went back to normal sinus rhythm. We have been asked to see her. Patient states she does not have any known cardiac issues like coronary disease myocardial infarction. However, she has been getting chest pains at different times and the areas include chest, upper extremities as well as back. This can happen randomly. Not clear if it is cardiac or something else. However, she has not been previously worked up. Current admission is for a combination of sepsis, diabetic foot ulcer, LUIS, severe anemia among others. Review of Systems Review of Systems: Yes all other systems are reviewed and are negative Constitutional: Constitutional: Reports as per HPI Eyes: Eyes: Reports as per HPI ENT: Reports as per HPI Cardiovascular: Cardiovascular: Reports as per HPI, Denies acrocyanosis, Denies cool extremities, Denies chest pain, Denies leg edema, Denies lightheadedness, Denies palpitations and Denies dyspnea Respiratory: Respiratory: Reports as per HPI, Reports no additional respiratory complaints and Denies dyspnea Gastrointestinal: Gastrointestinal: Reports as per HPI and Reports no additional gastrointestinal complaints Genitourinary: Genitourinary: Reports as per HPI Musculoskeletal: Musculoskeletal: Reports no additional musculoskeletal complaints and Reports as per HPI Integumentary/Breasts: Skin/Breast: Reports system reviewed and no additional complaints, except as docu Neurologic: Reports system reviewed and no additional complaints, except as documented and Reports as per HPI Psychiatric: Psychiatric: Reports no additional psychiatric complaints and Reports as per HPI Endocrine: Endocrine: Reports no additional endocrine complaints, Reports as per HPI and Denies palpitations Hematologic/Lymphatic: Hematologic/Lymphatic: Reports no additional hematologic/lymphatic complaints and Reports as per HPI Allergic/Immunologic: Allergic/Immunologic: Reports no additional allergic/immunologic complaints and Reports as per HPI PMF Past Medical History Medical History Acid reflux Anemia in chronic kidney disease (CKD) Arthritis Carpal tunnel syndrome Chronic ulcer of right foot Degenerative joint disease of spine Hypertension Irritable bowel syndrome Leukocytosis Obesity Osteomyelitis Osteoporosis PAD (peripheral artery disease) Peripheral neuropathy Prolapsed uterus Rectal prolapse Retinopathy Toe ulcer due to DM Family History Family History Maternal Grandmother Diabetes Maternal Grandfather Heart disease Cancer of unknown origin Mother HTN (hypertension) Paternal Uncle Thalassemia Surgical History Surgical History H/O dilation and curettage Social History Social History Household Members: Children Housing: Apartment Are you a primary patient care technician to a significant other at home: No Do you presently have visiting nurse or other home services: No Alcohol intake: never Patient Tobacco Use Status: Never used Tobacco Smoked in Last 30 Days: No Second Hand Smoke Exposure: No Use of substances other than those prescribed or required for medical reasons: No Advance Directives: No Advance Directives Information Provided: No service: No Current occupational status: disabled Meds Allergies Allergy/AdvReac Type Severity Reaction Status Date / Time No Known Allergies Allergy Unknown UNKNOWN Verified 02/06/22 10:49 [NO KNOWN ALLERGIES] Active Medications: Current Medications Acetaminophen (Acetaminophen 325 Mg Tablet) 650 mg PO Q6H PRN PRN Reason: Pain, Mild (Pain Scale 1-3) Dextrose (Dextrose 50 % 25 Gm/50 Ml Syringe) 25 gm IVPUSH Q15M PRN; Protocol PRN Reason: per Hypoglycemia Standing Ord. Docusate Sodium (Docusate Sodium 100 Mg Capsule) 100 mg PO DAILY PRN PRN Reason: Constipation Glucose (Glucose Gel 15 Gm Gel..Gram.) 15 gm PO Q15M PRN; Protocol PRN Reason: per Hypoglycemia Standing Ord. Heparin Sodium (Porcine) (Heparin Sodium,Porcine 5,000 Unit/Ml Vial) 5,000 unit SUBCUT Q12H [facility] Last Admin: 05/12/22 05:37 Dose: 5,000 unit Hydromorphone HCl (Hydromorphone Hcl 1 Mg/Ml Syringe) 0.5 mg IVPUSH Q4H PRN; Protocol PRN Reason: Pain, Severe (Pain Scale 7-10) Cefepime HCl 2 gm/ Sodium (Chloride) 50 mls @ 100 mls/hr IV Q24H [facility] Last Infusion: 05/12/22 09:13 Dose: Infused Vancomycin HCl 500 mg/ Sodium (Chloride) 110 mls @ 110 mls/hr IV Q24H [facility] Magnesium Sulfate (Magnesium Sulfate/H2o) 2 gm in 50 mls @ 25 mls/hr IV Q12H [facility] Stop: 05/13/22 00:59 Last Admin: 05/12/22 11:04 Dose: 25 mls/hr Insulin Glargine (Insulin Glargine,Hum.Rec.Anlog 100 Unit/Ml 10 Ml Vial) 20 unit SUBCUT DAILY [facility] Last Admin: 05/12/22 10:04 Dose: 20 unit Insulin Human Lispro (Insulin Lispro 100 Unit/Ml 3 Ml Vial) 0 unit SUBCUT QIDACHS [facility]; Protocol Last Admin: 05/12/22 08:52 Dose: 8 unit Ondansetron HCl (Ondansetron Hcl 4 Mg/2 Ml Vial) 4 mg IVPUSH Q8H PRN PRN Reason: Nausea and Vomiting Pharmacy Consult (Consult Rx Vancomycin Dosing) 1 each MISCELLANE DAILY PRN PRN Reason: Consult order Pharmacy Consult (Consult Rx Vancomycin Dosing) 1 each MISCELLANE DAILY PRN PRN Reason: Consult order Pharmacy Consult (Consult Rx Perform Med Rec) 1 each MISCELLANE ONCE PRN PRN Reason: Consult order Sodium Chloride (0.9 % Sodium Chloride Flush 3 Ml Syringe) [facility] Last Admin: 05/12/22 08:44 Dose: 3 ml Home Medications Medication Instructions Recorded Confirmed Last Taken Type aspirin 81 mg tablet,delayed 1 tab PO DAILY 07/02/21 05/12/22 05/11/22 History release cholecalciferol (vitamin D3) 25 1 tab PO DAILY 07/02/21 05/12/22 05/11/22 History mcg (1,000 unit) tablet metformin 1,000 mg tablet 1 tab PO BID 07/02/21 05/12/22 05/11/22 History blood sugar diagnostic (FreeStyle #10 ea 09/18/21 05/12/22 05/11/22 History Lite Strips) lancets 33 gauge (TRUEplus Lancets) #100 ea 09/18/21 05/12/22 05/11/22 History pen needle, diabetic 31 gauge x #1,200 ea 09/18/21 05/12/22 05/11/22 History 5/16 (UltiCare Pen Needle) bacitracin 500 unit/gram topical 1 appl topical TID 12/19/21 05/12/22 05/11/22 History ointment acetaminophen 500 mg tablet 2 tab PO Q8H PRN pain 05/12/22 05/12/22 05/11/22 History lidocaine-prilocaine 2.5 %-2.5 % 1 appl topical DAILY PRN pain 05/12/22 05/12/22 05/11/22 History topical cream Physical Exam Vital Signs: Vital Signs: Last Vital Signs Temp 99.1 F 05/12/22 07:55 Pulse 105 H 05/12/22 08:00 Resp 22 H 05/12/22 08:00 BP 131/48 L 05/12/22 08:00 Pulse Ox 100 05/12/22 07:55 O2 Del Method 05/12/22 07:55 BMI result Body Mass Index 32.0 Const: General: comfortable and no acute distress Orientation/consciousness: patient oriented x3 HEENT: Other: Unremarkable Head: Yes normal to inspection Neck: Neck: Yes normal visual inspection Chest: Chest palpation & inspection: normal inspection of the chest Resp: Auscultation: clear to auscultation bilaterally Cardio: Palpation: normal PMI Heart sounds: S1 normal heart sound present, S2 normal heart sound present, no gallops, no murmurs and no rubs GI: Palpation (GI): Soft to palpation Back/Spine/Pelvis: Other: unremarkable Skin: General skin exam: no rashes or lesions noted Neuro: General: patient oriented x3 Extrem: Other: Dressing on left foot with some slight swelling. General: Yes normal to inspection Psych: Mental Status: mental status grossly normal Objective Labs and Meds Result diagrams: 05/12/22 06:04 05/12/22 06:04 Lab results: Laboratory Results - last 24 hr 05/11/22 05/11/22 05/11/22 21:06 21:06 21:06 WBC 25.2 H RBC 4.13 L Hgb 7.9 L Hct 25.3 L MCV 61.3 L MCH 19.1 L MCHC 31.2 RDW 15.8 Plt Count 758 H MPV 9.0 L Immature Gran % (Auto) 1.7 H Neut % (Auto) 82.5 H Lymph % (Auto) 7.9 L [place] % (Auto) 7.2 Eos % (Auto) 0.4 Baso % (Auto) 0.3 Lymph # (Auto) 2.0 Trimble # (Auto) 1.8 H Eos # (Auto) 0.1 Baso # (Auto) 0.1 Abs Immat Gran (auto) 0.43 H Absolute Neuts (auto) 20.8 H Absolute Nucleated RBC 0.000 Nucleated RBC % (auto) 0.0 Smear Tech's Comments VERIFIED ESR Sodium 132 L Potassium 4.4 Chloride 90 L Carbon Dioxide 23 Anion Gap 23 H BUN 22 H Creatinine 1.59 H Estim Creat Clear Calc 34.7 Estimated GFR 33 POC Glucose Random Glucose 339 H Estimat Average Glucose Hemoglobin A1c % Lactic Acid 1.7 Calcium 9.4 Magnesium Iron TIBC % Saturation Unsat Iron Binding Ferritin Total Bilirubin 1.2 H AST 16 ALT 15 Alkaline Phosphatase 280 H D Troponin I High Sens C-Reactive Protein Cancelled B-Natriuretic Peptide Total Protein 8.0 Albumin 3.6 Urine Color Urine Appearance Urine pH Ur Specific [place] Urine Protein Urine Glucose (UA) Urine Ketones Urine Blood Urine Nitrite Ur Leukocyte Esterase Urine RBC Urine WBC Ur Squamous Epith Cells Urine Bacteria Hyaline Casts Urine Yeast Influenza Type A (PCR) Influenza Type B (PCR) RSV RNA Qual (PCR) SARS-CoV-2 RNA (RT-PCR) Blood Type Antibody Screen Crossmatch 05/12/22 05/12/22 05/12/22 02:17 02:18 06:04 WBC 24.3 H RBC 3.51 L Hgb 6.7 L* Hct 21.8 L MCV 62.1 L MCH 19.1 L MCHC 30.7 L RDW 15.9 Plt Count 621 H MPV 9.5 Immature Gran % (Auto) 2.3 H Neut % (Auto) 79.4 H Lymph % (Auto) 9.7 L [place] % (Auto) 7.6 Eos % (Auto) 0.8 Baso % (Auto) 0.2 Lymph # (Auto) 2.4 Trimble # (Auto) 1.9 H Eos # (Auto) 0.2 Baso # (Auto) 0.1 Abs Immat Gran (auto) 0.56 H Absolute Neuts (auto) 19.3 H Absolute Nucleated RBC 0.000 Nucleated RBC % (auto) 0.0 Smear Tech's Comments VERIFIED ESR Sodium Potassium Chloride Carbon Dioxide Anion Gap BUN Creatinine Estim Creat Clear Calc Estimated GFR POC Glucose Random Glucose Estimat Average Glucose Hemoglobin A1c % Lactic Acid 1.1 Calcium Magnesium Iron TIBC % Saturation Unsat Iron Binding Ferritin Total Bilirubin AST ALT Alkaline Phosphatase Troponin I High Sens C-Reactive Protein B-Natriuretic Peptide Total Protein Albumin Urine Color Urine Appearance Urine pH Ur Specific [place] Urine Protein Urine Glucose (UA) Urine Ketones Urine Blood Urine Nitrite Ur Leukocyte Esterase Urine RBC Urine WBC Ur Squamous Epith Cells Urine Bacteria Hyaline Casts Urine Yeast Influenza Type A (PCR) NEGATIVE Influenza Type B (PCR) NEGATIVE RSV RNA Qual (PCR) NEGATIVE SARS-CoV-2 RNA (RT-PCR) NEGATIVE Blood Type Antibody Screen Crossmatch 05/12/22 05/12/22 05/12/22 06:04 06:04 06:07 WBC RBC Hgb Hct MCV MCH MCHC RDW Plt Count MPV Immature Gran % (Auto) Neut % (Auto) Lymph % (Auto) [place] % (Auto) Eos % (Auto) Baso % (Auto) Lymph # (Auto) Trimble # (Auto) Eos # (Auto) Baso # (Auto) Abs Immat Gran (auto) Absolute Neuts (auto) Absolute Nucleated RBC Nucleated RBC % (auto) Smear Tech's Comments ESR Sodium 131 L Potassium 4.9 Chloride 95 L Carbon Dioxide 17 L Anion Gap 24 H BUN 28 H Creatinine 2.28 H Estim Creat Clear Calc 24.1 Estimated GFR 22 POC Glucose Random Glucose 332 H Estimat Average Glucose Hemoglobin A1c % Lactic Acid Calcium 8.5 D Magnesium 1.2 L* Iron 25 L TIBC 153 L % Saturation 16 Unsat Iron Binding 128 Ferritin 2284 H Total Bilirubin AST ALT Alkaline Phosphatase Troponin I High Sens 7.9 D C-Reactive Protein 34.35 H B-Natriuretic Peptide 104 H Total Protein Albumin Urine Color Urine Appearance Urine pH Ur Specific [place] Urine Protein Urine Glucose (UA) Urine Ketones Urine Blood Urine Nitrite Ur Leukocyte Esterase Urine RBC Urine WBC Ur Squamous Epith Cells Urine Bacteria Hyaline Casts Urine Yeast Influenza Type A (PCR) Influenza Type B (PCR) RSV RNA Qual (PCR) SARS-CoV-2 RNA (RT-PCR) Blood Type Antibody Screen Crossmatch 05/12/22 05/12/22 05/12/22 06:39 07:38 08:08 WBC RBC Hgb Hct MCV MCH MCHC RDW Plt Count MPV Immature Gran % (Auto) Neut % (Auto) Lymph % (Auto) [place] % (Auto) Eos % (Auto) Baso % (Auto) Lymph # (Auto) Trimble # (Auto) Eos # (Auto) Baso # (Auto) Abs Immat Gran (auto) Absolute Neuts (auto) Absolute Nucleated RBC Nucleated RBC % (auto) Smear Tech's Comments ESR Sodium Potassium Chloride Carbon Dioxide Anion Gap BUN Creatinine Estim Creat Clear Calc Estimated GFR POC Glucose 342 H Random Glucose Estimat Average Glucose Hemoglobin A1c % Lactic Acid Calcium Magnesium Iron TIBC % Saturation Unsat Iron Binding Ferritin Total Bilirubin AST ALT Alkaline Phosphatase Troponin I High Sens C-Reactive Protein B-Natriuretic Peptide Total Protein Albumin Urine Color Dark Yellow Urine Appearance Turbid Urine pH 6.5 Ur Specific [place] 1.020 Urine Protein 100 (2+) H Urine Glucose (UA) 500 H Urine Ketones Trace Urine Blood Negative Urine Nitrite Negative Ur Leukocyte Esterase Large (3+) H Urine RBC 0-2 Urine WBC >50 H Ur Squamous Epith Cells >20 Urine Bacteria 4+ Hyaline Casts 3-5 Urine Yeast Present Influenza Type A (PCR) Influenza Type B (PCR) RSV RNA Qual (PCR) SARS-CoV-2 RNA (RT-PCR) Blood Type O Positive Antibody Screen NEGATIVE Crossmatch See Detail 05/12/22 05/12/22 09:10 09:10 WBC RBC Hgb Hct MCV MCH MCHC RDW Plt Count MPV Immature Gran % (Auto) Neut % (Auto) Lymph % (Auto) [place] % (Auto) Eos % (Auto) Baso % (Auto) Lymph # (Auto) [place] # (Auto) Eos # (Auto) Baso # (Auto) Abs Immat Gran (auto) Absolute Neuts (auto) Absolute Nucleated RBC Nucleated RBC % (auto) Smear Tech's Comments ESR > 140 H Sodium Potassium Chloride Carbon Dioxide Anion Gap BUN Creatinine Estim Creat Clear Calc Estimated GFR POC Glucose Random Glucose Estimat Average Glucose 177 Hemoglobin A1c % 7.8 Lactic Acid Calcium Magnesium Iron TIBC % Saturation Unsat Iron Binding Ferritin Total Bilirubin AST ALT Alkaline Phosphatase Troponin I High Sens C-Reactive Protein B-Natriuretic Peptide Total Protein Albumin Urine Color Urine Appearance Urine pH Ur Specific [place] Urine Protein Urine Glucose (UA) Urine Ketones Urine Blood Urine Nitrite Ur Leukocyte Esterase Urine RBC Urine WBC Ur Squamous Epith Cells Urine Bacteria Hyaline Casts Urine Yeast Influenza Type A (PCR) Influenza Type B (PCR) RSV RNA Qual (PCR) SARS-CoV-2 RNA (RT-PCR) Blood Type Antibody Screen Crossmatch ECG Interpretation: EKG with mild sinus tachycardia, 105/Min; no significant ST-T changes and otherwise unremarkable. Normal NM/corrected QT. Imaging Radiologist's impression: Impressions Foot X-Ray 05/12/22 02:45 IMPRESSION: 1. Soft tissue swelling throughout the foot as well as a focus of plantar soft tissue gas. No definite radiographic findings of osteomyelitis; however, further evaluation with MRI would be helpful. 2. Malalignment at the second, third, and fourth MTP joints as noted above, new compared to prior. Adjacent age-indeterminate fracture at the base of the second metatarsal cannot be excluded. Additional fracture of the medial navicular is suspected. Chest CT 05/12/22 05:35 IMPRESSION: 1. No acute findings identified. Mild upper lobe predominant emphysema. 2. Few scattered lung nodules measuring up to 3 mm, nonspecific and that significant change from 01/21/2022. According to the UPDATED 2017 Fleischner Society recommendations, the advised follow-up imaging for solid nodules < 6 mm is: LOW RISK PATIENT: No routine follow-up. HIGH RISK PATIENT: Optional CT at 12 months. 3. Coronary artery calcifications. Correlation with cardiac risk factors is recommended. Assessment and Plan (1) SVT (supraventricular tachycardia): Status: Acute (2) Peripheral vascular disease: Status: Acute (3) Diabetic foot ulcer: Status: Acute (4) Sepsis: Status: Acute (5) Anemia: Status: Acute (6) LUIS (acute kidney injury): Status: Acute (7) Hyponatremia: Status: Acute (8) Hypomagnesemia: Status: Acute Plan EKG strips from the time of SVT reviewed. She seems to be initially in sinus and then goes into narrow complex tachycardia in the 170s. That is mostly regular except in some areas where there is some irregularity. It seems she got adenosine 6 mg and then she breaks back into sinus rhythm. Currently mild sinus tachycardia at 105/Min. This could be either a reentrant tachycardia. Flutter possible but less likely. Cannot completely exclude atrial fibrillation but the fact that it resolved with adenosine again makes it less likely. Labs show multiple abnormalities including severe anemia with hemoglobin 6.7. Leukocytosis. Low magnesium. Cardiac arrhythmia could be from the stress of sepsis as well as at tried abnormalities. Hence we need to correct all of these. Transfusion as needed. Otherwise, can take low-dose beta-blockers for now. Echocardiogram for LV function assessment. With regard to chest pain, eventually stress test can be considered when she is medically stable. Could be done as an outpatient. Troponins are unremarkable and hence there is no evidence of ACS. Discussed with Dr. Servin. Procedures Date of Service Date of Service: 05/12/22
--- NOTE | 2022-05-12 11:33 | PC.NURSE ---
Pt off unit to MRI, Magnesium paused. Pt spoke to hospitalist, pt wishes to await transfusion until tomorrow at this time
[2022-05-12 13:18] LABS: Glucose, Whole Blood 145 mg/dL (60-115)
--- NOTE | 2022-05-12 15:40 | PM.EVENT ---
Event Note Date of Service: 05/12/22 Event Note: Day hospitalist update S: 2u pRBCs ordered. Pt refuses transfusion despite extensive counseling on risks/benefits favoring benefits. C/o chest pain and dyspnea O: Temp Pulse Resp BP Pulse Ox O2 Del Method 98.9 F 101 H 16 157/65 H 100 05/12/22 13:15 05/12/22 13:15 05/12/22 13:15 05/12/22 13:15 05/12/22 13:15 05/12/22 13:15 Gen: in no acute distress HEENT: sclera anicteric, moist mucus membranes, pale mucosa Neck: supple Lungs: clear to auscultation bilaterally Heart: regular rate and rhythm, no murmurs Abd: soft, non-tender, non-distended Ext: no edema Skin: warm/well-perfused, L lateral foot ulcer, L dorsal foot ulcer Neuro: alert and oriented x3, Psych: appropriate affect Impressions Foot X-Ray 05/12/22 02:45 IMPRESSION: 1. Soft tissue swelling throughout the foot as well as a focus of plantar soft tissue gas. No definite radiographic findings of osteomyelitis; however, further evaluation with MRI would be helpful. 2. Malalignment at the second, third, and fourth MTP joints as noted above, new compared to prior. Adjacent age-indeterminate fracture at the base of the second metatarsal cannot be excluded. Additional fracture of the medial navicular is suspected. Chest CT 05/12/22 05:35 IMPRESSION: 1. No acute findings identified. Mild upper lobe predominant emphysema. 2. Few scattered lung nodules measuring up to 3 mm, nonspecific and that significant change from 01/21/2022. According to the UPDATED 2017 Fleischner Society recommendations, the advised follow-up imaging for solid nodules < 6 mm is: LOW RISK PATIENT: No routine follow-up. HIGH RISK PATIENT: Optional CT at 12 months. 3. Coronary artery calcifications. Correlation with cardiac risk factors is recommended. Duplex Scan Lower Extremity Artery 05/12/22 10:45 IMPRESSION: Cannot exclude popliteal and infrapopliteal disease. Recommend clinical correlation with pulse examination. Incidentally visualized mildly enlarged lymph nodes measuring 1.3 cm or less in short axis and demonstrating fatty donta, possibly reactive. Foot MRI 05/12/22 12:49 IMPRESSION: Marked abnormality of the essentially all the tarsal bones of the hindfoot and midfoot to varying degrees most prominent across the naviculocuneiform joints and tarsometatarsal joints which is markedly progressed compared with the prior MRI in 2020. 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 Concomitant osteomyelitis cannot be excluded particularly given the additional findings detailed above. This includes an ulceration and sinus tract which which likely communicates with the fourth or fifth tarsometatarsal joint. There is an ulceration and sinus tract communicating with a fluid collection along the anterior lateral aspect of the midfoot forefoot junction consistent with an abscess. There are 2 additional fluid collections which are more nonspecific but could reflect abscesses or synovial recesses as detailed above Abnormality the muscles of the foot compatible with nonspecific myositis. This could reflect infection or evolving denervation myositis A/P: hospital day#1 56yo F with DM2, PAD, chronic osteomyeltis, hx hypoNa, HLD, CKD3 presenting with sepsis from L foot wound # DM foot ulcer/osteomyelitis # PAD - Vascular Surgery + ID consultation. Follow BCx. Vanc + cefepime d#2. # anemia - mixed CIRO/ACD - counseled on importance of transfusion but pt refuses despite counseling on risks/benefits; pt willing to reconsider tomorrow pending recheck H+H # hypoMg - replete, recheck in AM # LUIS - possibly pre renal, check FENa, give isotonic fluids, consult Nephrology. Transfusion would help but pt refusing # SVT - terminated after adenosaine in ED yesterday. Cardiology consulted. Metoprolol succinate. TTE pending. Outpt ischemic workup # hypoNa - fluid restrict, monitor Na # chest pain/pressure - suspect related to anemia, refusing transfusion as above # abdominal pain, history of cholelithiasis - outpt US pending, followed by GI as outpt # DM2 - A1c 7.8. correction-dose lispro + basal glargine [reduce dose given renal insufficny] # HTN - holding lisinopril but starting metoprolol succinate # VTE ppx: hold UFH due to anemia, place SCDs In my clinical judgment, the patient requires continued hospitalization for the following reasons: IV ABX
[2022-05-12] MEDS: Metoprolol Succinate ER 25 MG TAB.ER.24H PO (16:03)
[2022-05-12 16:15] LABS: Glucose, Whole Blood 260 mg/dL (60-115)
[2022-05-12] MEDS: 0.9 % Sodium Chloride 1,000 ML 100 ML IVCONT (17:12)
[2022-05-12 17:13] LABS: Troponin-I High Sensitivity 6.2 ng/L (<3.5-17.0)
--- NOTE | 2022-05-12 17:32 | PM.CNNEP ---
History of Present Illness Reason for Consult Consult date: 05/12/22 Reason for consult: LUIS Chief Complaint Chief complaint: Foot wound History of Present Illness Narrative: Ms. Mitra Parish is a 56-year-old female with past medical history of water intoxication syndrome, recurrent LUIS in the setting of sepsis, CKD stage IIIa BL Cr 1.0-1.1mg/dL, right renal simple cyst, T2DM, HTN, peripheral vascular disease status post left anterior tibial plasty, and chronic left diabetic foot wound who presents for worsening of chronic left foot wound. On arrival to the ED her vitals are significant for heart rate of 118, blood pressure 114/55, temp of 99.6 degrees, Labs are significant for 25.2, hemoglobin of 7.9 which is around her baseline from previous admissions, hematocrit 25.3, platelet count of 758, sodium of 132, chloride 90, anion gap of 23, BUN 22, creatinine of 1.59 with a baseline of 0.97, alk-phos of 280, While in the ED patient went into SVT, with a heart rate into the 180s, she received 6 mg of adenosine, converted to sinus rhythm with a heart rate of 105.? She states that she was sleeping when this occurred, she was asymptomatic. Review of Systems Review of Systems Pertinent positives and negatives as stated in HPI 10 point review of systems is otherwise negative. [facility] Past Medical History Medical History Acid reflux Anemia in chronic kidney disease (CKD) Arthritis Carpal tunnel syndrome Chronic ulcer of right foot Degenerative joint disease of spine Hypertension Irritable bowel syndrome Leukocytosis Obesity Osteomyelitis Osteoporosis PAD (peripheral artery disease) Peripheral neuropathy Prolapsed uterus Rectal prolapse Retinopathy Toe ulcer due to DM Family History Family History Maternal Grandmother Diabetes Maternal Grandfather Heart disease Cancer of unknown origin Mother HTN (hypertension) Paternal Uncle Thalassemia Surgical History Surgical History H/O dilation and curettage Social History Social History Household Members: Children Housing: Apartment Are you a primary rn long term care to a significant other at home: No Do you presently have visiting nurse or other home services: No Alcohol intake: never Patient Tobacco Use Status: Never used Tobacco Smoked in Last 30 Days: No Second Hand Smoke Exposure: No Use of substances other than those prescribed or required for medical reasons: No Advance Directives: No Advance Directives Information Provided: No service: No Current occupational status: disabled Meds Allergies Allergy/AdvReac Type Severity Reaction Status Date / Time No Known Allergies Allergy Unknown UNKNOWN Verified 02/06/22 10:49 [NO KNOWN ALLERGIES] Active Medications: Current Medications Acetaminophen (Acetaminophen 325 Mg Tablet) 650 mg PO Q6H PRN PRN Reason: Pain, Mild (Pain Scale 1-3) Dextrose (Dextrose 50 % 25 Gm/50 Ml Syringe) 25 gm IVPUSH Q15M PRN; Protocol PRN Reason: per Hypoglycemia Standing Ord. Docusate Sodium (Docusate Sodium 100 Mg Capsule) 100 mg PO DAILY PRN PRN Reason: Constipation Folic Acid (Folic Acid 1 Mg Tablet) 1 mg PO DAILY [facility] Glucose (Glucose Gel 15 Gm Gel..Gram.) 15 gm PO Q15M PRN; Protocol PRN Reason: per Hypoglycemia Standing Ord. Hydromorphone HCl (Hydromorphone Hcl 1 Mg/Ml Syringe) 0.5 mg IVPUSH Q4H PRN; Protocol PRN Reason: Pain, Severe (Pain Scale 7-10) Cefepime HCl 2 gm/ Sodium (Chloride) 50 mls @ 100 mls/hr IV Q24H [facility] Last Infusion: 05/12/22 09:13 Dose: Infused Vancomycin HCl 500 mg/ Sodium (Chloride) 110 mls @ 110 mls/hr IV Q24H [facility] Magnesium Sulfate (Magnesium Sulfate/H2o) 2 gm in 50 mls @ 25 mls/hr IV Q12H [facility] Stop: 05/13/22 00:59 Last Infusion: 05/12/22 15:20 Dose: Infused Sodium Chloride (Ns) 1,000 mls @ 100 mls/hr IVCONT .Q10H [facility] Last Admin: 05/12/22 17:12 Dose: 100 mls/hr Insulin Glargine (Insulin Glargine,Hum.Rec.Anlog 100 Unit/Ml 10 Ml Vial) 20 unit SUBCUT DAILY [facility] Last Admin: 05/12/22 10:04 Dose: 20 unit Insulin Human Lispro (Insulin Lispro 100 Unit/Ml 3 Ml Vial) 0 unit SUBCUT QIDACHS [facility]; Protocol Last Admin: 05/12/22 13:25 Dose: Not Given Metoprolol Succinate (Metoprolol Succinate Er 25 Mg Tab.Er.24h) 25 mg PO DAILY [facility]; Protocol Last Admin: 05/12/22 16:03 Dose: 25 mg Ondansetron HCl (Ondansetron Hcl 4 Mg/2 Ml Vial) 4 mg IVPUSH Q8H PRN PRN Reason: Nausea and Vomiting Pharmacy Consult (Consult Rx Vancomycin Dosing) 1 each MISCELLANE DAILY PRN PRN Reason: Consult order Pharmacy Consult (Consult Rx Vancomycin Dosing) 1 each MISCELLANE DAILY PRN PRN Reason: Consult order Pharmacy Consult (Consult Rx Perform Med Rec) 1 each MISCELLANE ONCE PRN PRN Reason: Consult order Sodium Chloride (0.9 % Sodium Chloride Flush 3 Ml Syringe) 3 ml IVFLUSH QSHIFT [facility] Last Admin: 05/12/22 16:03 Dose: 3 ml Vitamin D (Cholecalciferol (Vitamin D3) 25 Mcg Tablet) 25 mcg PO DAILY [facility] Home Medications Medication Instructions Recorded Confirmed Last Taken Type aspirin 81 mg tablet,delayed 1 tab PO DAILY 07/02/21 05/12/22 05/11/22 History release cholecalciferol (vitamin D3) 25 1 tab PO DAILY 07/02/21 05/12/22 05/11/22 History mcg (1,000 unit) tablet metformin 1,000 mg tablet 1 tab PO BID 07/02/21 05/12/22 05/11/22 History blood sugar diagnostic (FreeStyle #10 ea 09/18/21 05/12/22 05/11/22 History Lite Strips) lancets 33 gauge (TRUEplus Lancets) #100 ea 09/18/21 05/12/22 05/11/22 History pen needle, diabetic 31 gauge x #1,200 ea 09/18/21 05/12/22 05/11/22 History 5/16 (UltiCare Pen Needle) bacitracin 500 unit/gram topical 1 appl topical TID 12/19/21 05/12/22 05/11/22 History ointment acetaminophen 500 mg tablet 2 tab PO Q8H PRN pain 05/12/22 05/12/22 05/11/22 History lidocaine-prilocaine 2.5 %-2.5 % 1 appl topical DAILY PRN pain 05/12/22 05/12/22 05/11/22 History topical cream Physical Exam Vital Signs: Last Vital Signs Temp 99.5 F 05/12/22 16:03 Pulse 109 H 05/12/22 16:03 Resp 22 H 05/12/22 16:03 BP 176/78 H 05/12/22 16:03 Pulse Ox 99 05/12/22 16:03 O2 Del Method 05/12/22 16:03 BMI result Body Mass Index 32.0 Const Orientation/consciousness: patient oriented x3 Resp Effort & Inspection: normal respiratory effort Auscultation: clear to auscultation bilaterally Cardio Palpation: normal PMI Rate: regular rate Rhythm: regular rhythm Heart sounds: S1 normal heart sound present, S2 normal heart sound present, no gallops, no murmurs and no rubs GI Palpation (GI): Soft to palpation Auscultation: normal bowel sounds Neuro General: patient oriented x3 Results Lab Results Result Diagrams: 05/12/22 06:04 05/12/22 06:04 Lab results: Chemistry 05/11/22 05/12/22 21:06 06:04 Sodium 132 L 131 L Potassium 4.4 4.9 Carbon Dioxide 23 17 L BUN 22 H 28 H Creatinine 1.59 H 2.28 H Calcium 9.4 8.5 D Hematology 05/11/22 05/12/22 21:06 06:04 WBC 25.2 H 24.3 H Hgb 7.9 L 6.7 L* Plt Count 758 H 621 H Urinalysis 05/12/22 06:39 Urine Color Dark Yellow Urine Appearance Turbid Urine pH 6.5 Ur Specific [place] 1.020 Urine Protein 100 (2+) H Urine Glucose (UA) 500 H Urine Ketones Trace Urine Blood Negative Urine Nitrite Negative Ur Leukocyte Esterase Large (3+) H Urine RBC 0-2 Urine WBC >50 H Ur Squamous Epith Cells >20 Hyaline Casts 3-5 Assessment and Plan (1) SVT (supraventricular tachycardia): Status: Acute (2) Peripheral vascular disease: Status: Acute (3) Diabetic foot ulcer: Status: Acute (4) Sepsis: Status: Acute (5) Anemia: Status: Acute (6) LUIS (acute kidney injury): Status: Acute (7) Hyponatremia: Status: Acute (8) Hypomagnesemia: Status: Acute Plan Ms. Mitra Parish is a 56-year-old female with past medical history of water intoxication syndrome, recurrent LUIS in the setting of sepsis, CKD stage IIIa BL Cr 1.0-1.1mg/dL, right renal simple cyst, T2DM, HTN, peripheral vascular disease status post left anterior tibial plasty, and chronic left diabetic foot wound who presents for worsening of chronic left foot wound. 1. LUIS on CKD BL Cr 1.0-1.1mg/dL several episodes of LUIS in the setting of sepsis Now with Cr 2.28 in the setting of left foot osteo U/A with hyalin casts pre-renal injury Anemia also not helping with renal perfusion. Patient wants to hold off on transfusion of PRBCs Plan: - I would avoid Venofer / IV iron and prefer RBCs given sepsis - Stop saline given acidosis - start LR instead 125cc/hr - Watch vanco troughs - renal panel daily - check C3 and C4 Procedures Date of Service Date of Service: 05/12/22
[2022-05-12] MEDS: Lactated Ringers 500 ML 125 ML IV (18:36)
[2022-05-12 19:02] LABS: Creatinine Urine 41.91 mg/dL
[2022-05-12 21:00] LABS: Glucose, Whole Blood 242 mg/dL (60-115)
--- NOTE | 2022-05-12 23:03 | PC.NURSE ---
pt LR running behind at this time due to IV being positional. Pt reminded to keep arm straight in order for fluids to completed.
[2022-05-13] VITALS (14 sets, daily range): BP systolic 110–164; BP diastolic 56–112; PULSE 96–104; RESP 16–22; TEMP 36.3–37.2; O2SAT 97–99
--- NOTE | 2022-05-13 00:08 | PC.NURSE ---
magnesium running late, LR still running. New Iv established in pt right hand for better access.
[2022-05-13] MEDS: Magnesium Sulfate/H2O 2 GM/50 ML PIGGYBACK IV (00:28)
--- NOTE | 2022-05-13 05:16 | PC.NURSE ---
patient sleeping, resp are equal and unlabored. able to make needs known, call [facility] within reach
--- NOTE | 2022-05-13 05:21 | PC.NURSE ---
pt got out of bed and used the bedside commode. No complaints.
[2022-05-13 06:01] LABS: Mean Corpuscular HGB Conc 31.7 g/dl (31.0-35.0); Mean Corpuscular Hemoglobin 19.1 pg (27.0-33.0); Mean Platelet Volume 9.1 fL (9.4-12.3); Platelet Count 643 X10*3/uL (160-400); Red Blood Count 2.99 X10*6/uL (4.20-5.50); Red Cell Distribution Width 15.7 % (11.0-16.0); White Blood Count 19.2 X10*3/uL (4.8-10.8)
[2022-05-13 06:02] LABS: Mean Corpuscular Volume 60.2 fL (80.0-98.0)
[2022-05-13 06:03] LABS: Hemoglobin 5.7 g/dl (12.0-16.0)
[2022-05-13 06:34] LABS: Anion Gap 19 (12-20); Blood Urea Nitrogen 22 mg/dL (9-16); Calcium 8.6 mg/dL (8.4-10.2); Carbon Dioxide 22 mmol/L (22-29); Chloride 94 mmol/L (96-108); Creatinine Clr Calc Pharmacy 36.3; Estimated Glomerular Filt Rate 35; Glucose Random 342 mg/dL (60-115); Magnesium 1.8 mg/dL (1.6-2.6); Potassium 3.8 mmol/L (3.3-5.1); Sodium 131 mmol/L (135-145)
[2022-05-13 06:36] LABS: B Type Natriuretic Peptide 192 pg/mL (<100)
[2022-05-13 07:35] LABS: Glucose, Whole Blood 318 mg/dL (60-115)
--- NOTE | 2022-05-13 07:36 | HE.PHANOTE ---
Vancomycin Dosing Addendum Vancomycin adjusted to 750 mg q24h for predicted auc of 503. Scr improved. Next level 05/14/22 @0600.
[2022-05-13] MEDS: Cholecalciferol (Vitamin D3) 25 MCG TABLET PO (08:30)
[2022-05-13] MEDS: Metoprolol Succinate ER 25 MG TAB.ER.24H PO (08:30)
[2022-05-13] MEDS: Folic Acid 1 MG TABLET PO (08:30)
[2022-05-13] MEDS: vancomycin HCL 750 MG in 0.9 % Sodium Chloride 250 ML 265 MG IV (08:31)
[2022-05-13] MEDS: Insulin Lispro 100 UNIT/ML 3 ML VIAL SUBCUT ×4 (08:33→21:16)
[2022-05-13] MEDS: Insulin Glargine,Hum.rec.anlog 100 UNIT/ML 10 ML VIAL 20 UNIT SUBCUT (08:34)
[2022-05-13] MEDS: 0.9 % Sodium Chloride Flush 3 ML SYRINGE IVFLUSH ×2 (08:35→15:35)
[2022-05-13] MEDS: cefEPime HCl 2 GM in 0.9 % Sodium Chloride 50 ML IV (09:19)
--- NOTE | 2022-05-13 09:28 | PC.NURSE ---
Dr Servin at bedside speaking with pt regarding plan of care. Pt now agreeable to blood transfusion, consent formed signed and placed in chart. Abx infusing as charted.
--- NOTE | 2022-05-13 11:07 | PC.NURSE ---
pt. a&o x4. complains of foot swelling and pain. She also complains of abdominal pain. explained to the pt. the importance of having a blood transfusion. pt is refusing at this time and asking for shots that she receives through his hematology doctor. gave her her PO morning meds and antibiotics IV.
[2022-05-13 11:12] LABS: Glucose, Whole Blood 285 mg/dL (60-115)
--- NOTE | 2022-05-13 11:14 | HO.PM.IMPN ---
Subjective Subjective Date of Service: 05/13/22 Interval History: Hb dropped further to 5.7. After extensive discussion, she does agree to transfusion of pRBCs No fever/chills C/o exertional dyspnea Review of Systems Review of Systems: Yes all other systems are reviewed and are negative Physical Exam Vital Signs: Vital Signs: Last Vital Signs Temp 98.3 F 05/13/22 03:26 Pulse 100 05/13/22 08:23 Resp 18 05/13/22 08:23 BP 110/56 L 05/13/22 08:23 Pulse Ox 99 05/13/22 08:23 O2 Del Method 05/13/22 08:23 BMI result Body Mass Index 32.0 Gen: in no acute distress HEENT: sclera anicteric, moist mucus membranes, pale mucosa Neck: supple Lungs: clear to auscultation bilaterally Heart: regular rate and rhythm, no murmurs Abd: soft, non-tender, non-distended Ext: no edema Skin: warm/well-perfused, L lateral foot ulcer, L dorsal foot ulcer Neuro: alert and oriented x3, Psych: appropriate affect Objective Data Active Medications Acetaminophen (Acetaminophen 325 Mg Tablet) 650 mg PO Q6H PRN PRN Reason: Pain, Mild (Pain Scale 1-3) Dextrose (Dextrose 50 % 25 Gm/50 Ml Syringe) 25 gm IVPUSH Q15M PRN; Protocol PRN Reason: per Hypoglycemia Standing Ord. Docusate Sodium (Docusate Sodium 100 Mg Capsule) 100 mg PO DAILY PRN PRN Reason: Constipation Folic Acid (Folic Acid 1 Mg Tablet) 1 mg PO DAILY [facility] Last Admin: 05/13/22 08:30 Dose: 1 mg Documented By: MERISSA Glucose (Glucose Gel 15 Gm Gel..Gram.) 15 gm PO Q15M PRN; Protocol PRN Reason: per Hypoglycemia Standing Ord. Hydromorphone HCl (Hydromorphone Hcl 1 Mg/Ml Syringe) 0.5 mg IVPUSH Q4H PRN; Protocol PRN Reason: Pain, Severe (Pain Scale 7-10) Cefepime HCl 2 gm/ Sodium (Chloride) 50 mls @ 100 mls/hr IV Q24H [facility] Last Infusion: 05/13/22 10:22 Dose: 0 mls/hr Documented By: MERISSA Vancomycin HCl 750 mg/ Sodium (Chloride) 265 mls @ 265 mls/hr IV Q24H [facility] Last Admin: 05/13/22 08:31 Dose: 265 mls/hr Documented By: MERISSA Insulin Glargine (Insulin Glargine,Hum.Rec.Anlog 100 Unit/Ml 10 Ml Vial) 20 unit SUBCUT DAILY [facility] Last Admin: 05/13/22 08:34 Dose: 20 unit Documented By: MERISSA Insulin Human Lispro (Insulin Lispro 100 Unit/Ml 3 Ml Vial) 0 unit SUBCUT QIDACHS [facility]; Protocol Last Admin: 05/13/22 08:33 Dose: 8 unit Documented By: MERISSA Metoprolol Succinate (Metoprolol Succinate Er 25 Mg Tab.Er.24h) 25 mg PO DAILY [facility]; Protocol Last Admin: 05/13/22 08:30 Dose: 25 mg Documented By: MERISSA Ondansetron HCl (Ondansetron Hcl 4 Mg/2 Ml Vial) 4 mg IVPUSH Q8H PRN PRN Reason: Nausea and Vomiting Pharmacy Consult (Consult Rx Vancomycin Dosing) 1 each MISCELLANE DAILY PRN PRN Reason: Consult order Pharmacy Consult (Consult Rx Vancomycin Dosing) 1 each MISCELLANE DAILY PRN PRN Reason: Consult order Pharmacy Consult (Consult Rx Perform Med Rec) 1 each MISCELLANE ONCE PRN PRN Reason: Consult order Sodium Chloride (0.9 % Sodium Chloride Flush 3 Ml Syringe) 3 ml IVFLUSH QSHIFT [facility] Last Admin: 05/13/22 08:35 Dose: 3 ml Documented By: MERISSA Vitamin D (Cholecalciferol (Vitamin D3) 25 Mcg Tablet) 25 mcg PO DAILY [facility] Last Admin: 05/13/22 08:30 Dose: 25 mcg Documented By: MERISSA Labs CBC & Chem 7: 05/13/22 05:42 05/13/22 05:42 Labs: Laboratory Results - last 24 hr 05/12/22 05/12/22 05/12/22 13:07 16:02 16:21 MCV MCH MCHC RDW Plt Count MPV Absolute Nucleated RBC Nucleated RBC % (auto) Anion Gap Estim Creat Clear Calc Estimated GFR POC Glucose 145 H 260 H Random Glucose Calcium Magnesium Troponin I High Sens 6.2 B-Natriuretic Peptide Ur Random Sodium Urine Creatinine 05/12/22 05/12/2205/12/22 18:41 18:41 20:53 MCV MCH MCHC RDW Plt Count MPV Absolute Nucleated RBC Nucleated RBC % (auto) Anion Gap Estim Creat Clear Calc Estimated GFR POC Glucose 242 H Random Glucose Calcium Magnesium Troponin I High Sens B-Natriuretic Peptide Ur Random Sodium 83.0 Urine Creatinine 41.91 05/13/22 05/13/22 05/13/22 05:42 05:42 05:42 MCV 60.2 L MCH 19.1 L MCHC 31.7 RDW 15.7 Plt Count 643 H MPV 9.1 L Absolute Nucleated RBC 0.000 Nucleated RBC % (auto) 0.0 Anion Gap 19 Estim Creat Clear Calc 36.3 Estimated GFR 35 POC Glucose Random Glucose 342 H Calcium 8.6 Magnesium 1.8 Troponin I High Sens B-Natriuretic Peptide 192 H Ur Random Sodium Urine Creatinine 05/13/22 05/13/22 07:31 11:05 MCV MCH MCHC RDW Plt Count MPV Absolute Nucleated RBC Nucleated RBC % (auto) Anion Gap Estim Creat Clear Calc Estimated GFR POC Glucose 318 H 285 H Random Glucose Calcium Magnesium Troponin I High Sens B-Natriuretic Peptide Ur Random Sodium Urine Creatinine Microbiology Microbiology Results: Microbiology 05/12/22 02:17 Blood Culture - Preliminary Blood - Venous Staphylococcus species 05/12/22 02:18 Blood Culture - Preliminary Blood - Venous Staphylococcus species 05/12/22 Unknown Urine Culture - Preliminary Urine clean catch - Clean Catch Midstream Culture in progress. Assessment and Plan (1) Acute hyponatremia: Status: Acute (2) Weakness: Status: Acute (3) PAD (peripheral artery disease): Status: Inactive (4) Anemia in chronic kidney disease (CKD): Status: Inactive Plan hospital day#2 56yo F with DM2, PAD, chronic osteomyeltis, hx hypoNa, HLD, CKD3, chronic anemia presenting with sepsis from L foot wound # staphylococcal bacteremia # DM foot ulcer/osteomyelitis # PAD - Vascular Surgery + ID consultation.? Follow BCx- growing Staphylococcus spp. TTE. Vanc + cefepime d#3. # anemia - mixed CIRO/thalassemia trait/ACKD - pt refused transfusion yesterday but consents to it today; will transfuse 2u pRBCs - pt on epo as outpt; will consult Heme/Onc # hypoMg - repleted # LUIS - likely due to sepsis + anemia. holding lisinopril. Nephrology following. SCr improved- will recheck in AM # SVT - terminated after adenosine in ED on day of admission. Cardiology consulted.? Started on metoprolol succinate.? TTE pending.? Outpt ischemic workup # hypoNa - fluid restrict, monitor Na # chest pain/pressure - suspect related to anemia, transfuse as above # abdominal pain, history of cholelithiasis - outpt US pending, followed by GI as outpt # DM2 - A1c 7.8.? correction-dose lispro + basal glargine [reduce dose given renal insufficiency] # HTN - holding lisinopril but starting metoprolol succinate # VTE ppx: hold UFH due to anemia, place SCDs In my clinical judgment, the patient requires continued hospitalization for the following reasons: IV ABX, surgical evaluation, severe anemia requiring transfusion Quality Stroke Does the patient have a stroke diagnosis?: No VTE Prior VTE?: No VTE Risk Level:: Medical - moderate - high VTE Device Contraindication: Treatment Not Indicated VTE Drug Contraindication: N/A - Med Ordered
--- NOTE | 2022-05-13 11:58 | PC.NURSE ---
Pt now instructing this RN to await transfusion. Concerned for Procrit, Dr Servin aware and states hematology will be contacted, pt aware.
--- NOTE | 2022-05-13 13:45 | P.CNHO_ITS ---
Subjective - Subjective Chief complaint: Consult for: Significant anemia. Patient: known to practice within the last 3 years Consult date: 05/13/22 Primary Care Provider: [facility] Medical Summary: DIAGNOSIS: Significant anemia. Leukocytosis. Thrombocytosis. . HPI - Consult Narrative Reason for consult: CONSULT FOR: DVT. Narrative: Mitra Parish is a pleasant 56 year old lady who presented to the hospital on 05/12, with complaints of left foot swelling, pain, as well as development of a blister and skin changes in her foot. She reported that she has a chronic wound at the base of her left foot that is being followed by wound care every 2 weeks with no significant changes or noted acute infection, She developed an ulcer on top of her same foot, and noticed skin changes today therefore she was concerned and decided to come to the hospital. She also reported undergoing balloon Angioplasty in the same leg in October of this year. Her complaints included chest pain, that is sharp stabbing, radiating to the left arm, as well as to the back. She reported shortness of breath with no cough, she has significant orthopnea and PND. She reports left arm pain that is heavy. She started having these pains about a week ago intermittent, at rest, with no relieving or exacerbating factors. The pain in the center of the chest is radiating to the back. She is also complaining of abdominal pain, reports that she has 5 different pains in her abdomen, worse in the right upper quadrant. She is being followed by GI. She had an ultrasound done, was told in the past that she had gallbladder stones. Patient is also complaining of shortness of breath, mostly with exertion, she also has orthopnea and PND. On arrival to the ED her vitals: significant for heart rate of 118, blood pressure 114/55, temp of 99.6 degrees, Labs are significant for WBC 25.2, hemoglobin of 7.9 which is around her baseline from previous admissions, hematocrit 25.3, platelet count of 758. Sodium of 132, chloride 90, anion gap of 23, BUN 22, creatinine of 1.59 with a baseline of 0.97, alk-phos of 280, Chest CT shows: No acute findings identified mild upper lobe predominant emphysema, she has few scattered lung nodules measuring up to 3 mm, nonspecific Foot x-ray shows soft tissue swelling throughout the foot as well as focus of plantar soft tissue gas no 9 mint of the 2nd 3rd and 4th MTP joints In the ED patient went into SVT, with a heart rate into the 180s, she received 6 mg of adenosine, converted to sinus rhythm with a heart rate of 105. She states that she was sleeping when this occurred, she was asymptomatic. Review of Systems Review of Systems: Yes all other systems are reviewed and are negative [facility] Medical History: CKD, HTN, history of osteomyelitis, peripheral vascular disease status post left anterior tibial plasty, microcytic hyperchromic anemia, IBS, history of cholelithiasis, diabetes, HLD, history of water intoxication syndrome, Acid reflux Anemia in chronic kidney disease (CKD) Arthritis Carpal tunnel syndrome Chronic ulcer of right foot Degenerative joint disease of spine Hypertension Irritable bowel syndrome Leukocytosis Obesity Osteomyelitis Osteoporosis PAD (peripheral artery disease) Peripheral neuropathy Prolapsed uterus Rectal prolapse Retinopathy Toe ulcer due to DM Review of Systems - Constitutional Reports system reviewed and no additional complaints, except as documented, Reports frequent falls, Reports weakness - Eyes Reports system reviewed and no additional complaints, except as documented - ENT Reports system reviewed and no additional complaints, except as documented - Cardiovascular Reports system reviewed and no additional complaints, except as documented, Reports chest pain, Reports shortness of breath - Respiratory Reports no additional respiratory complaints - Gastrointestinal Reports system reviewed and no additional complaints, except as documented - Genitourinary Reports no additional female genitourinary complaints - Musculoskeletal Reports system reviewed and no additional complaints, except as documented - Integumentary/Breasts Skin/Breast: Reports no additional skin complaints - Neurologic Reports system reviewed and no additional complaints, except as documented, Reports as per HPI - Psychiatric Reports system reviewed and no additional complaints, except as documented - Endocrine Reports no additional endocrine complaints - Hematologic/Lymphatic Reports system reviewed and no additional complaints, except as documented - Allergic/Immunologic Reports system reviewed and no additional complaints, except as documented Oncology Screenings - ECOG Performance Status ECOG Performance Status: 2 [facility] Medical History: Medical History (Last Reviewed 05/14/22 @ 16:00 by Leonarda Castorena MD) Acid reflux Anemia in chronic kidney disease (CKD) Arthritis Carpal tunnel syndrome Chronic ulcer of right foot Degenerative joint disease of spine Hypertension Irritable bowel syndrome Leukocytosis Obesity Osteomyelitis Osteoporosis PAD (peripheral artery disease) Peripheral neuropathy Prolapsed uterus Rectal prolapse Retinopathy Toe ulcer due to DM Functional capacity: uses cane/walker Patient : No Family History: Family History (Last Reviewed 05/14/22 @ 16:00 by Leonarda Castorena MD) Maternal Grandmother Diabetes Maternal Grandfather Heart disease Cancer of unknown origin Mother HTN (hypertension) Paternal Uncle Thalassemia Surgical History: Surgical History (Last Reviewed 05/14/22 @ 16:00 by Leonarda Castorena MD) H/O dilation and curettage Social History: Social History (Last Reviewed 05/14/22 @ 16:00 by Leonarda Castorena MD) Living Situation History: Household Members: Children Household Members Other:: 4 Housing: Apartment Are you a primary customer care agent to a significant other at home: No Do you presently have visiting nurse or other home services: No Tobacco History: Patient Tobacco Use Status: Never used Tobacco Second Hand Smoke Exposure: No Occupation Assessmet: service: No Current occupational status: disabled Home Medications and Allergies Current Medications: Current Medications Acetaminophen (Acetaminophen 325 Mg Tablet) 650 mg PO Q6H PRN PRN Reason: Pain, Mild (Pain Scale 1-3) Dextrose (Dextrose 50 % 25 Gm/50 Ml Syringe) 25 gm IVPUSH Q15M PRN; Protocol PRN Reason: per Hypoglycemia Standing Ord. Docusate Sodium (Docusate Sodium 100 Mg Capsule) 100 mg PO DAILY PRN PRN Reason: Constipation Folic Acid (Folic Acid 1 Mg Tablet) 1 mg PO DAILY [facility] Last Admin: 05/13/22 08:30 Dose: 1 mg Glucose (Glucose Gel 15 Gm Gel..Gram.) 15 gm PO Q15M PRN; Protocol PRN Reason: per Hypoglycemia Standing Ord. Hydromorphone HCl (Hydromorphone Hcl 1 Mg/Ml Syringe) 0.5 mg IVPUSH Q4H PRN; Protocol PRN Reason: Pain, Severe (Pain Scale 7-10) Cefepime HCl 2 gm/ Sodium (Chloride) 50 mls @ 100 mls/hr IV Q24H [facility] Last Infusion: 05/13/22 10:22 Dose: Infused Vancomycin HCl 750 mg/ Sodium (Chloride) 265 mls @ 265 mls/hr IV Q24H [facility] Last Infusion: 05/13/22 13:10 Dose: Infused Insulin Glargine (Insulin Glargine,Hum.Rec.Anlog 100 Unit/Ml 10 Ml Vial) 20 unit SUBCUT DAILY [facility] Last Admin: 05/13/22 08:34 Dose: 20 unit Insulin Human Lispro (Insulin Lispro 100 Unit/Ml 3 Ml Vial) 0 unit SUBCUT QIDACHS [facility]; Protocol Last Admin: 05/13/22 13:07 Dose: 6 unit Metoprolol Succinate (Metoprolol Succinate Er 25 Mg Tab.Er.24h) 25 mg PO DAILY [facility]; Protocol Last Admin: 05/13/22 08:30 Dose: 25 mg Ondansetron HCl (Ondansetron Hcl 4 Mg/2 Ml Vial) 4 mg IVPUSH Q8H PRN PRN Reason: Nausea and Vomiting Pharmacy Consult (Consult Rx Vancomycin Dosing) 1 each MISCELLANE DAILY PRN PRN Reason: Consult order Pharmacy Consult (Consult Rx Vancomycin Dosing) 1 each MISCELLANE DAILY PRN PRN Reason: Consult order Pharmacy Consult (Consult Rx Perform Med Rec) 1 each MISCELLANE ONCE PRN PRN Reason: Consult order Sodium Chloride (0.9 % Sodium Chloride Flush 3 Ml Syringe) 3 ml IVFLUSH QSHIFT [facility] Last Admin: 05/13/22 08:35 Dose: 3 ml Vitamin D (Cholecalciferol (Vitamin D3) 25 Mcg Tablet) 25 mcg PO DAILY [facility] Last Admin: 05/13/22 08:30 Dose: 25 mcg Home Medications Medication Instructions Recorded Confirmed Type aspirin 81 mg tablet,delayed 1 tab PO DAILY 07/02/21 05/12/22 History release cholecalciferol (vitamin D3) 25 1 tab PO DAILY 07/02/21 05/12/22 History mcg (1,000 unit) tablet metformin 1,000 mg tablet 1 tab PO BID 07/02/21 05/12/22 History blood sugar diagnostic (FreeStyle #10 ea 09/18/21 05/12/22 History Lite Strips) lancets 33 gauge (TRUEplus Lancets) #100 ea 09/18/21 05/12/22 History pen needle, diabetic 31 gauge x #1,200 ea 09/18/21 05/12/22 History 5/16 (UltiCare Pen Needle) bacitracin 500 unit/gram topical 1 appl topical TID 12/19/21 05/12/22 History ointment acetaminophen 500 mg tablet 2 tab PO Q8H PRN pain 05/12/22 05/12/22 History lidocaine-prilocaine 2.5 %-2.5 % 1 appl topical DAILY PRN pain 05/12/22 05/12/22 History topical cream Allergies Allergy/AdvReac Type Severity Reaction Status Date / Time No Known Allergies Allergy Unknown UNKNOWN Verified 02/06/22 10:49 [NO KNOWN ALLERGIES] Physical Exam Vital signs: Vital Signs Temp 97.9 F 05/13/22 11:23 Pulse 98 05/13/22 11:23 Resp 18 05/13/22 11:23 BP 138/112 H 05/13/22 11:23 Pulse Ox 98 05/13/22 11:23 O2 Del Method 05/13/22 11:23 Intake & Output 05/12/22 05/13/22 05/13/22 19:59 06:59 18:59 Intake Total 315 / 315 Balance 315 / 315 Intake: Intake, Oral Amount Intake, IV Amount 315 / 315 Lactated Ringers 500 ml @ 125 mls/hr IV .Q4H [facility] Rx#: [id number] Magnesium Sulfate/H2O 2 gm In 50 ml @ 25 mls/hr IV Q12H [facility] Rx#:[id number] cefEPime HCl 2 gm In 0.9 % 50 / 50 Sodium Chloride 50 ml @ 100 mls /hr IV Q24H [facility] Rx#:[id number] vancomycin HCL 500 mg In 0.9 % Sodium Chloride 100 ml @ 110 mls/hr IV NOW STA Rx#: [id number] vancomycin HCL 750 mg In 0.9 % 265 / 265 Sodium Chloride 250 ml @ 265 mls/hr IV Q24H [facility] Rx#: [id number] 0.9 % Sodium Chloride 1,000 ml @ 100 mls/hr IVCONT .Q10H [facility] Rx#:[id number] Other: Meal Refused NPO Lunch % Eaten Dinner % Eaten Number of Unmeasured Voids Urine Urine Color Weight 74.389 kg - Constitutional Present: moderate distress - Routine HEENT Exam Head: Present: normal inspection ENT: Present: mucous membranes moist - Routine Neck Exam Present: supple - Routine Respiratory Exam Present: CTAB - Routine Cardiovascular Exam Cardiovascular: Present: RRR, S1, S2 - Routine Abdominal Exam Present: tenderness - Routine Extremities Exam Present: calf tenderness - Routine Skin Exam Present: intact - Routine Neurological Exam Present: alert, oriented X3 - Detailed Neurological Exam: Coma Scale Eye Opening: Spontaneous (4) Verbal Response: Oriented (5) - Routine Psychiatric Exam Present: depressed Hem/Onc Consult Result - Labs CBC & Chem 7: 05/17/22 06:04 05/16/22 05:55 Labs: Short CBC 05/13/22 Range/Units 05:42 WBC 19.2 H (4.8-10.8) X10*3/uL Hgb 5.7 L* (12.0-16.0) g/dl Hct 18.0 L* (37.0-47.0) % Plt Count 643 H (160-400) X10*3/uL BMP 05/13/22 05:42 Sodium 131 L Potassium 3.8 D Chloride 94 L Carbon Dioxide 22 BUN 22 H Creatinine 1.52 H Calcium 8.6 Assessment and Plan Patient Active problem list reviewed?: Yes (1) Anemia Status: Acute Assessment and plan: This is a pleasant 56-year-old lady with a history of Microcytic Anemia. Serial hemoglobin: 05/11:7.9, 6.7. 05/12:5.7. MCV: 60.2. Iron studies: /153/. DIFFERENTIAL DIAGNOSIS: 1. IRON DEFICIENCY ANEMIA: She could have iron deficiency from occult GI blood loss. Alternatively she can have iron malabsorption related to celiac disease. 2. THALASSEMIA TRAIT: She does have a history of thalassemia trait. She has always been microcytic. 3. ACD/ ANEMIA OF ACUTE ILLNESS: This is likely as well. She recently has cell ulitis and lower extremity ulcers. She is being treated with IV antibiotics. 4. ACD: She also has stage IV kidney disease. Creatinine 2.25. 4. B12 DEFICIENCY: She does have a history of B12 deficiency. She used to get B12 injection 7 years ago. She could have pernicious anemia or alternatively celiac disease can cause both iron and B12 malabsorption. I previously had proceeded with further evaluation. l checked iron studies: 73/33/22/148. Consistent with ACD. Checked transglut. IgA: <1. Checked B12 and folate levels; 503, >20. I checked an EPO level: 14.6. My impression was that she most likely has anemia of chronic disease related to stage 4 kidney disease. And that, she would benefit from Procrit therapy. l arranged for Procrit for ACD. She had actually been receiving it q 2 weeks. Her H & H had started improving. From 01/16/2022: Iron studies: 59/248/24/746. (ferritin elevated likely as an acute phase reactant.) She now presents with bacteremia related to UTI and cellulitis. Hemoglobin dropped significantly. Resulting from acute infection and CKD. Patient initially declined transfusion. Today she is willing. PLAN: She is being transfused. To continue the Procrit therapy, [address] units 3 times weekly, for ACD Stage IV, kidney disease, while in house. Will continue to monitor the trend. Thank you, Cc: Dr. Jae Krishna. - Time Spent With Patient Time Spent with Patient (in minutes): 30
--- NOTE | 2022-05-13 15:24 | PM.PNNEP ---
Subjective Subjective Date of Service: 05/13/22 Interval history: Accepting transfusion today Cr improved with IVF today resuscitation with PRBC Physical Exam Vital Signs: Vital Signs: Last Vital Signs Temp 98.6 F 05/13/22 14:56 Pulse 98 05/13/22 14:56 Resp 20 05/13/22 14:56 BP 158/70 H 05/13/22 14:56 Pulse Ox 98 05/13/22 11:23 O2 Del Method 05/13/22 11:23 BMI result Body Mass Index 32.0 Const: Orientation/consciousness: patient oriented x3 Resp: Effort & Inspection: normal respiratory effort Auscultation: clear to auscultation bilaterally Cardio: Palpation: normal PMI Rate: regular rate Rhythm: regular rhythm Heart sounds: S1 normal heart sound present, S2 normal heart sound present, no gallops, no murmurs and no rubs GI: Palpation (GI): Soft to palpation Auscultation: normal bowel sounds Neuro: General: patient oriented x3 Objective Data Labs CBC & Chem 7: 05/13/22 05:42 05/13/22 05:42 Labs: Laboratory Results - last 24 hr 05/12/22 05/12/22 05/12/22 08:08 16:21 18:41 WBC RBC Hgb Hct MCV MCH MCHC RDW Plt Count MPV Absolute Nucleated RBC Nucleated RBC % (auto) Sodium Potassium Chloride Carbon Dioxide Anion Gap BUN Creatinine Estim Creat Clear Calc Estimated GFR POC Glucose Random Glucose Calcium Magnesium Troponin I High Sens 6.2 B-Natriuretic Peptide Ur Random Sodium Urine Creatinine 41.91 Blood Type O Positive Antibody Screen NEGATIVE Crossmatch See Detail 05/12/22 05/12/22 05/13/22 18:41 20:53 05:42 WBC 19.2 H RBC 2.99 L Hgb 5.7 L* Hct 18.0 L* MCV 60.2 L MCH 19.1 L MCHC 31.7 RDW 15.7 Plt Count 643 H MPV 9.1 L Absolute Nucleated RBC 0.000 Nucleated RBC % (auto) 0.0 Sodium Potassium Chloride Carbon Dioxide Anion Gap BUN Creatinine Estim Creat Clear Calc Estimated GFR POC Glucose 242 H Random Glucose Calcium Magnesium Troponin I High Sens B-Natriuretic Peptide Ur Random Sodium 83.0 Urine Creatinine Blood Type Antibody Screen Crossmatch 11/06/22 11/06/22 11/06/22 05:42 05:42 07:31 WBC RBC Hgb Hct MCV MCH MCHC RDW Plt Count MPV Absolute Nucleated RBC Nucleated RBC % (auto) Sodium 131 L Potassium 3.8 D Chloride 94 L Carbon Dioxide 22 Anion Gap 19 BUN 22 H Creatinine 1.52 H Estim Creat Clear Calc 36.3 Estimated GFR 35 POC Glucose 318 H Random Glucose 342 H Calcium 8.6 Magnesium 1.8 Troponin I High Sens B-Natriuretic Peptide 192 H Ur Random Sodium Urine Creatinine Blood Type Antibody Screen Crossmatch 05/13/22 11:05 WBC RBC Hgb Hct MCV MCH MCHC RDW Plt Count MPV Absolute Nucleated RBC Nucleated RBC % (auto) Sodium Potassium Chloride Carbon Dioxide Anion Gap BUN Creatinine Estim Creat Clear Calc Estimated GFR POC Glucose 285 H Random Glucose Calcium Magnesium Troponin I High Sens B-Natriuretic Peptide Ur Random Sodium Urine Creatinine Blood Type Antibody Screen Crossmatch Microbiology Microbiology Results: Microbiology 05/12/22 02:17 Blood - Venous Blood Culture - Preliminary Staphylococcus species 05/12/22 02:18 Blood - Venous Blood Culture - Preliminary Staphylococcus species 05/12/22 Unknown Urine clean catch - Clean Catch Midstream Urine Culture - Preliminary Culture in progress. Procedures Date of Service Date of Service: 05/13/22 Assessment & Plan Assessment and plan (1) SVT (supraventricular tachycardia): Status: Acute (2) Peripheral vascular disease: Status: Acute (3) Diabetic foot ulcer: Status: Acute (4) Sepsis: Status: Acute (5) Anemia: Status: Acute (6) LUIS (acute kidney injury): Status: Acute (7) Hyponatremia: Status: Acute (8) Hypomagnesemia: Status: Acute Plan Ms. Mitra Parish is a 56-year-old female with past medical history of water intoxication syndrome, recurrent LUIS in the setting of sepsis, CKD stage IIIa BL Cr 1.0-1.1mg/dL, right renal simple cyst, T2DM, HTN, peripheral vascular disease status post left anterior tibial plasty, and chronic left diabetic foot wound who presents for worsening of chronic left foot wound. 1. LUIS on CKD BL Cr 1.0-1.1mg/dL several episodes of LUIS in the setting of sepsis Now with Cr 2.28 in the setting of left foot osteo U/A with hyalin casts pre-renal injury Anemia also not helping with renal perfusion with IVF support Cr down remarkably. Plan: - I would avoid Venofer / IV iron and prefer RBCs given sepsis - stop IVF and prefer to use PRBC today - Appreciate Heme recs for thalassemia trait - renal panel daily. Time Spent With Patient Time: Total time spent is greater than 50% in coordination of care (as documented) at patient's floor/unit and/or counseling patient: Progress Note: Quality Stroke Does the patient have a stroke diagnosis?: No
[2022-05-13 16:08] LABS: Glucose, Whole Blood 221 mg/dL (60-115)
[2022-05-13 19:47] LABS: Glucose, Whole Blood 263 mg/dL (60-115)
[2022-05-14] VITALS (9 sets, daily range): BP systolic 135–187; BP diastolic 61–83; PULSE 92–103; RESP 14–18; TEMP 36.6–37.7; O2SAT 93–96
[2022-05-14] MEDS: 0.9 % Sodium Chloride Flush 3 ML SYRINGE IVFLUSH ×4 (01:08→19:36)
[2022-05-14 06:29] LABS: Hematocrit 24.3 % (37.0-47.0); Hemoglobin 8.1 g/dl (12.0-16.0); Mean Corpuscular HGB Conc 33.3 g/dl (31.0-35.0); Mean Corpuscular Hemoglobin 22.1 pg (27.0-33.0); Mean Corpuscular Volume 66.4 fL (80.0-98.0); Mean Platelet Volume 9.1 fL (9.4-12.3); Platelet Count 681 X10*3/uL (160-400); Red Blood Count 3.66 X10*6/uL (4.20-5.50); Red Cell Distribution Width 22.7 % (11.0-16.0)
[2022-05-14 06:40] LABS: Vancomycin Random 11.1 mcg/mL (15-20)
--- NOTE | 2022-05-14 07:00 | CA_ITS ---
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 There is mildly increased left ventricular wall thickness. The visually estimated ejection fraction is between 55-60%. - Normal right ventricular cavity size and systolic function. - The left atrium is normal in size. The right atrium is normal in size. Findings Left Ventricle Normal left ventricular size and systolic function. There is mildly increased left ventricular wall thickness. The visually estimated ejection fraction is between 55-60%. There is no evidence of regional wall motion abnormalities. Diastolic function is normal for age. Low global longitudinal strain at 12.4 % Right Ventricle Normal right ventricular cavity size and systolic function. Atria The left atrium is normal in size. The right atrium is normal in size. Aortic Valve Normal aortic valve structure and function. There is no aortic valve stenosis. There is no aortic valve regurgitation. Mitral Valve The mitral valve appears normal. There is mild mitral annular calcification. There is trace mitral valve regurgitation. There is no mitral valve stenosis. Pulmonic Valve Normal pulmonic valve structure and function. There is trace pulmonic valve regurgitation. Tricuspid Valve Normal tricuspid valve structure and function. There is trace tricuspid valve regurgitation. Normal right atrial pressure. There is no evidence of pulmonary hypertension. Great Vessels All visible segments of the aorta are normal in size. The visualized portions of the pulmonary artery and branches are normal. Venous The inferior vena cava is normal in size and collapses greater than 50% with inspiration. Pericardium/Pleural There is no evidence of pericardial effusion. Prior Study Comparison No prior study available for comparison. Measurements 2D Linear Measurements IVSd: 1.18 0.6-0.9/0.6-1.0 cm LVIDd: 4.31 3.9-5.3/4.2-5.9 cm LVIDd Index: 2.51 2.4-3.2/2.2-3.1 cm/m2 LVIDs: 3.26 2.0-3.6 cm LVPWd: 0.91 0.7-1.1 cm LA Diam: 3.80 2.7-3.8/3.0-4.0 cm LAIDs Index: 2.21 1.5-2.3 cm/m2 LV Mass: 188.98 67-162/88-224 g LV Mass Index: 109.87 43-95/49-115 g/m2 LVOT Diam: 2.00 3.0+(-)1.3 cm 2D Systolic Function EF 4C: 52.30 >55% EF 2C: 52.80 >55% EF BiP: 55.40 >55% Mitral Valve MV Pk E: 0.85 MV PK A: 0.89 MV Decel Time: 137.00 E/A: 1.00 E'Lateral: 9.46 E'Medial: 7.29 E/E' Med: 11.70 E/E' Lat: 9.00 PHT: 40.00 MVA PHT: 5.50 Decel Sully: 6.21 Aortic Valve AoV Pk Kodak: 1.70 AoV Pk Grad: 12.00 DERRELL: 2.27 LVOT LVOT Pk Kodak: 1.23 LVOT Mn Kodak: 0.79 LVOT VTI: 0.25 LVOT Pk Grad: 6.00 LVOT Mn Grad: 3.00 LVOT Diam: 2.00 LVOT Area: 3.14 Diastolic Function MV Pk E: 0.85 MV Pk A: 0.89 E/A: 1.00 E'Medial: 7.29 E/E' Med: 11.70 E' Laterial: 9.46 E/E' Lat: 9.00 Right Ventricle TAPSE (mm): 20.70 TVS' Kodak: 15.80 Tricuspid Valve TR Pk Kodak: 2.12 TR Pk Grad: 18.00 RA Press: 15.00 RVSP: 33.00 Great Vessels Aorta Sinus of Valsalva: 2.90 2.0-3.5 cm Ao Asc: 3.10 2.1-3.4 cm Pulmonary Veins Pulm Vein S/D 1.60 Pulmonary Valve PV Pk Kodak: 1.01 Peak PV Grad: 4.00 Updated in Other Vendor System with Status of Final Fede Martínez MD electronically signed on 05/14/2022 1:08:07 PM with status of Final
[2022-05-14 07:16] LABS: Anion Gap 17 (12-20); Blood Urea Nitrogen 20 mg/dL (9-16); C Reactive Protein 24.83 mg/dL (< or = 0.50); Calcium 8.6 mg/dL (8.4-10.2); Carbon Dioxide 26 mmol/L (22-29); Chloride 95 mmol/L (96-108); Creatinine Clr Calc Pharmacy 44.5; Estimated Glomerular Filt Rate 44; Glucose Random 294 mg/dL (60-115); Magnesium 1.4 mg/dL (1.6-2.6); Potassium 3.7 mmol/L (3.3-5.1); Sodium 134 mmol/L (135-145)
--- NOTE | 2022-05-14 07:24 | HE.PHANOTE ---
RE: vanco Trough on 05/14/22 came back at 11.1mg/L; increased dose to 1000mg Q24H with predicted AUC 426mg/L; creatinine is improving next level to be drawn 05/16/22 @0600
[2022-05-14 07:38] LABS: Glucose, Whole Blood 326 mg/dL (60-115)
[2022-05-14] MEDS: Cholecalciferol (Vitamin D3) 25 MCG TABLET PO (07:45)
[2022-05-14] MEDS: Metoprolol Succinate ER 25 MG TAB.ER.24H PO (07:45)
[2022-05-14] MEDS: Folic Acid 1 MG TABLET PO (07:45)
[2022-05-14] MEDS: Insulin Glargine,Hum.rec.anlog 100 UNIT/ML 10 ML VIAL 20 UNIT SUBCUT (07:46)
[2022-05-14] MEDS: Insulin Lispro 100 UNIT/ML 3 ML VIAL SUBCUT ×4 (07:47→20:08)
[2022-05-14] MEDS: cefEPime HCl 2 GM in 0.9 % Sodium Chloride 50 ML IV (07:48)
[2022-05-14] MEDS: vancomycin HCL 1,000 MG in 0.9 % Sodium Chloride 250 ML 270 MG IV (08:40)
--- NOTE | 2022-05-14 10:08 | P.PNIM_ITS ---
Subjective Subjective Date of Service: 05/14/22 Interval History: 2u pRBCs transfused; Hb improved to 8.1. C/o chronic abd pain in 5 different places ; had outpt US abd 05/11/22 Chest pain improved BCx grew MSSA Review of Systems Review of Systems: Yes all other systems are reviewed and are negative Physical Exam Vital Signs: Vital Signs: Last Vital Signs Temp 98.9 F 05/14/22 08:00 Pulse 95 05/14/22 08:00 Resp 18 05/14/22 08:00 BP 171/82 H 05/14/22 08:00 Pulse Ox 96 05/14/22 08:00 O2 Del Method 05/14/22 08:00 BMI result Body Mass Index 32.0 Gen: in no acute distress HEENT: sclera anicteric, moist mucus membranes, pale mucosa Neck: supple Lungs: clear to auscultation bilaterally Heart: regular rate and rhythm, no murmurs Abd: soft, diffuse tenderness non-distended, obese Ext: no edema Skin: warm/well-perfused, L foot ulcer Neuro: alert and oriented x3 Psych: appropriate affect Objective Data Active Medications Acetaminophen (Acetaminophen 325 Mg Tablet) 650 mg PO Q6H PRN PRN Reason: Pain, Mild (Pain Scale 1-3) Dextrose (Dextrose 50 % 25 Gm/50 Ml Syringe) 25 gm IVPUSH Q15M PRN; Protocol PRN Reason: per Hypoglycemia Standing Ord. Docusate Sodium (Docusate Sodium 100 Mg Capsule) 100 mg PO DAILY PRN PRN Reason: Constipation Epoetin Socrates (Epoetin Socrates 2,000 Unit/Ml Vial) 10,000 unit SUBCUT MOWEFR COUNTS INCLUDE 234 BEDS AT THE [facility] Folic Acid (Folic Acid 1 Mg Tablet) 1 mg PO DAILY COUNTS INCLUDE 234 BEDS AT THE [facility] Last Admin: 05/14/22 07:45 Dose: 1 mg Documented By: CLARI Glucose (Glucose Gel 15 Gm Gel..Gram.) 15 gm PO Q15M PRN; Protocol PRN Reason: per Hypoglycemia Standing Ord. Hydromorphone HCl (Hydromorphone Hcl 1 Mg/Ml Syringe) 0.5 mg IVPUSH Q4H PRN; Protocol PRN Reason: Pain, Severe (Pain Scale 7-10) Cefepime HCl 2 gm/ Sodium (Chloride) 50 mls @ 100 mls/hr IV Q24H COUNTS INCLUDE 234 BEDS AT THE [facility] Last Infusion: 05/14/22 08:46 Dose: 0 mls/hr Documented By: CLARI Vancomycin HCl 1,000 mg/ (Sodium Chloride) 270 mls @ 270 mls/hr IV Q24H COUNTS INCLUDE 234 BEDS AT THE [facility] Last Admin: 05/14/22 08:40 Dose: 270 mls/hr Documented By: CLARI Insulin Glargine (Insulin Glargine,Hum.Rec.Anlog 100 Unit/Ml 10 Ml Vial) 20 unit SUBCUT DAILY COUNTS INCLUDE 234 BEDS AT THE [facility] Last Admin: 05/14/22 07:46 Dose: 20 unit Documented By: CLARI Insulin Human Lispro (Insulin Lispro 100 Unit/Ml 3 Ml Vial) 0 unit SUBCUT QIDACHS COUNTS INCLUDE 234 BEDS AT THE [facility]; Protocol Last Admin: 05/14/22 07:47 Dose: 8 unit Documented By: CLARI Metoprolol Succinate (Metoprolol Succinate Er 25 Mg Tab.Er.24h) 25 mg PO DAILY COUNTS INCLUDE 234 BEDS AT THE [facility]; Protocol Last Admin: 05/14/22 07:45 Dose: 25 mg Documented By: CLARI Ondansetron HCl (Ondansetron Hcl 4 Mg/2 Ml Vial) 4 mg IVPUSH Q8H PRN PRN Reason: Nausea and Vomiting Pharmacy Consult (Consult Rx Vancomycin Dosing) 1 each MISCELLANE DAILY PRN PRN Reason: Consult order Pharmacy Consult (Consult Rx Vancomycin Dosing) 1 each MISCELLANE DAILY PRN PRN Reason: Consult order Pharmacy Consult (Consult Rx Perform Med Rec) 1 each MISCELLANE ONCE PRN PRN Reason: Consult order Sodium Chloride (0.9 % Sodium Chloride Flush 3 Ml Syringe) 3 ml IVFLUSH QSHIFT COUNTS INCLUDE 234 BEDS AT THE [facility] Last Admin: 05/14/22 07:48 Dose: 3 ml Documented By: CLARI Vitamin D (Cholecalciferol (Vitamin D3) 25 Mcg Tablet) 25 mcg PO DAILY COUNTS INCLUDE 234 BEDS AT THE [facility] Last Admin: 05/14/22 07:45 Dose: 25 mcg Documented By: CLARI Labs CBC & Chem 7: 05/14/22 05:57 05/14/22 05:57 Labs: Laboratory Results - last 24 hr 05/12/22 05/13/22 05/13/22 08:08 11:05 15:44 MCV MCH MCHC RDW Plt Count MPV Absolute Nucleated RBC Nucleated RBC % (auto) Anion Gap Estim Creat Clear Calc Estimated GFR POC Glucose 285 H 221 H Random Glucose Calcium Magnesium C-Reactive Protein Random Vancomycin Blood Type O Positive Antibody Screen NEGATIVE Crossmatch See Detail 05/13/22 05/14/22 05/14/22 19:12 05:57 05:57 MCV 66.4 L D MCH 22.1 L MCHC 33.3 RDW 22.7 H Plt Count 681 H MPV 9.1 L Absolute Nucleated RBC 0.000 Nucleated RBC % (auto) 0.0 Anion Gap 17 Estim Creat Clear Calc 44.5 Estimated GFR 44 POC Glucose 263 H Random Glucose 294 H Calcium 8.6 Magnesium 1.4 L* C-Reactive Protein 24.83 H Random Vancomycin Blood Type Antibody Screen Crossmatch 05/14/22 05/14/22 05:57 07:11 MCV MCH MCHC RDW Plt Count MPV Absolute Nucleated RBC Nucleated RBC % (auto) Anion Gap Estim Creat Clear Calc Estimated GFR POC Glucose 326 H Random Glucose Calcium Magnesium C-Reactive Protein Random Vancomycin 11.1 L Blood Type Antibody Screen Crossmatch ITS Impressions Foot X-Ray 05/12/22 02:45 IMPRESSION: 1. Soft tissue swelling throughout the foot as well as a focus of plantar soft tissue gas. No definite radiographic findings of osteomyelitis; however, further evaluation with MRI would be helpful. 2. Malalignment at the second, third, and fourth MTP joints as noted above, new compared to prior. Adjacent age-indeterminate fracture at the base of the second metatarsal cannot be excluded. Additional fracture of the medial navicular is suspected. Chest CT 05/12/22 05:35 IMPRESSION: 1. No acute findings identified. Mild upper lobe predominant emphysema. 2. Few scattered lung nodules measuring up to 3 mm, nonspecific and that significant change from 01/21/2022. According to the UPDATED 2017 Fleischner Society recommendations, the advised follow-up imaging for solid nodules < 6 mm is: LOW RISK PATIENT: No routine follow-up. HIGH RISK PATIENT: Optional CT at 12 months. 3. Coronary artery calcifications. Correlation with cardiac risk factors is recommended. Duplex Scan Lower Extremity Artery 05/12/22 10:45 IMPRESSION: Cannot exclude popliteal and infrapopliteal disease. Recommend clinical correlation with pulse examination. Incidentally visualized mildly enlarged lymph nodes measuring 1.3 cm or less in short axis and demonstrating fatty donta, possibly reactive. Foot MRI 05/12/22 12:49 IMPRESSION: Marked abnormality of the essentially all the tarsal bones of the hindfoot and midfoot to varying degrees most prominent across the naviculocuneiform joints and tarsometatarsal joints which is markedly progressed compared with the prior MRI in 2020. 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 Concomitant osteomyelitis cannot be excluded particularly given the additional findings detailed above. This includes an ulceration and sinus tract which which likely communicates with the fourth or fifth tarsometatarsal joint. There is an ulceration and sinus tract communicating with a fluid collection along the anterior lateral aspect of the midfoot forefoot junction consistent with an abscess. There are 2 additional fluid collections which are more nonspecific but could reflect abscesses or synovial recesses as detailed above Abnormality the muscles of the foot compatible with nonspecific myositis. This could reflect infection or evolving denervation myositis Microbiology Microbiology Results: Microbiology 05/12/22 02:17 Blood Culture - Final Blood - Venous Staphylococcus aureus 05/12/22 02:18 Blood Culture - Final Blood - Venous Staphylococcus aureus 05/12/22 21:14 Blood Culture - Preliminary Blood - Venous No growth after 24 hours. 05/12/22 21:14 Blood Culture - Preliminary Blood - Venous No growth after 24 hours. 05/12/22 Unknown Urine Culture - Preliminary Urine clean catch - Clean Catch Midstream Culture in progress. Assessment and Plan (1) Acute hyponatremia: Status: Acute (2) Weakness: Status: Acute (3) PAD (peripheral artery disease): Status: Inactive (4) Anemia in chronic kidney disease (CKD): Status: Inactive Plan hospital day#3 56yo F with DM2, PAD, chronic osteomyeltis, hx hypoNa, HLD, CKD3, chronic anemia presenting with sepsis from L foot wound communicating with bone concerning for osteomyelitis # MSSA bacteremia # DM foot ulcer/osteomyelitis # PAD - Vascular Surgery + ID consultations pending. Two sets of BCx from 05/12 growing MSSA. Surveillance BCx today. TTE pending. Got 3 days of vanco + cefepime. Will narrow to cefazolin today, renally dosed for CrCl 45 # anemia, mixed CIRO/thalassemia trait/ACKD - initially refused transfusion, accepted 2u pRBCs yesterday - Heme/Onc consulted; start epo 51257 units tiw # hypoMg - replete; recheck in AM # LUIS - likely due to sepsis + anemia. resolving. holding lisinopril. Nephrology following. # SVT - terminated after adenosine in ED on day of admission and has not recurred. Cardiology consulted.? Started on metoprolol succinate.? TTE pending.? Outpt ischemic workup # hypoNa - nearly resolved # chest pain/pressure - suspect related to anemia, transfuse as above # abdominal pain, history of cholelithiasis - outpt US pending, followed by GI as outpt # DM2 - A1c 7.8.? correction-dose lispro + basal glargine [reduced dose given renal in sufficiency- increase dose today] # HTN - holding lisinopril but started metoprolol succinate- will increase dose for better control # VTE ppx: resume UFH In my clinical judgment, the patient requires continued hospitalization for the following reasons: IV ABX, surgical evaluation, severe anemia requiring transfusion Quality Stroke Does the patient have a stroke diagnosis?: No VTE Prior VTE?: No VTE Risk Level:: Medical - moderate - high VTE Device Contraindication: Treatment Not Indicated VTE Drug Contraindication: N/A - Med Ordered
[2022-05-14] MEDS: Magnesium Sulfate/H2O 2 GM/50 ML PIGGYBACK IV (10:10)
[2022-05-14] MEDS: Heparin Sodium,Porcine 5,000 UNIT/ML VIAL 5000 UNIT SUBCUT ×2 (10:33→22:06)
[2022-05-14] MEDS: Metoprolol Succinate ER 12.5 MG HALFTAB.ER.24H PO (10:34)
--- NOTE | 2022-05-14 11:01 | PM.PNCARD ---
Subjective Subjective Date of Service: 05/14/22 Interval history: Seen examined at bedside. Currently not on telemetry. She is complaining of sharp chest pains in the center of the chest as well as on both sides of the chest. Denying palpitations currently. Blood pressure is elevated. Physical Exam Vital Signs: Last Vital Signs Temp 98.9 F 05/14/22 08:00 Pulse 95 05/14/22 08:00 Resp 18 05/14/22 08:00 BP 171/82 H 05/14/22 08:00 Pulse Ox 96 05/14/22 08:00 O2 Del Method 05/14/22 08:00 BMI result Body Mass Index 32.0 GENERAL APPEARANCE: in no acute distress, pleasant. NECK: no carotid bruit, no jugular venous distention. SKIN: no suspicious lesions, warm and dry. HEART: no murmurs, regular rate and rhythm. LUNGS: clear to auscultation bilaterally. ABDOMEN: soft, nontender. EXTREMITIES: Mild edema. Left foot has a punched-out ulcer on the sole. Does not look infected currently. There is an open blister on the dorsum of the left foot. PERIPHERAL PULSES: equal. NEUROLOGIC: No gross deficits, AAO X 3 Objective Labs and Meds Result diagrams: 05/14/22 05:57 05/14/22 05:57 Lab results: Laboratory Results - last 24 hr 05/12/22 05/13/22 05/13/22 08:08 11:05 15:44 WBC RBC Hgb Hct MCV MCH MCHC RDW Plt Count MPV Absolute Nucleated RBC Nucleated RBC % (auto) Sodium Potassium Chloride Carbon Dioxide Anion Gap BUN Creatinine Estim Creat Clear Calc Estimated GFR POC Glucose 285 H 221 H Random Glucose Calcium Magnesium C-Reactive Protein Random Vancomycin Blood Type O Positive Antibody Screen NEGATIVE Crossmatch See Detail 05/13/22 05/14/22 05/14/22 19:12 05:57 05:57 WBC 17.0 H RBC 3.66 L D Hgb 8.1 L D Hct 24.3 L D MCV 66.4 L D MCH 22.1 L MCHC 33.3 RDW 22.7 H Plt Count 681 H MPV 9.1 L Absolute Nucleated RBC 0.000 Nucleated RBC % (auto) 0.0 Sodium 134 L Potassium 3.7 Chloride 95 L Carbon Dioxide 26 Anion Gap 17 BUN 20 H Creatinine 1.24 Estim Creat Clear Calc 44.5 Estimated GFR 44 POC Glucose 263 H Random Glucose 294 H Calcium 8.6 Magnesium 1.4 L* C-Reactive Protein 24.83 H Random Vancomycin Blood Type Antibody Screen Crossmatch 05/14/22 05/14/22 05:57 07:11 WBC RBC Hgb Hct MCV MCH MCHC RDW Plt Count MPV Absolute Nucleated RBC Nucleated RBC % (auto) Sodium Potassium Chloride Carbon Dioxide Anion Gap BUN Creatinine Estim Creat Clear Calc Estimated GFR POC Glucose 326 H Random Glucose Calcium Magnesium C-Reactive Protein Random Vancomycin 11.1 L Blood Type Antibody Screen Crossmatch Progress Note: A&P Assessment and plan (1) Hypomagnesemia: Status: Acute (2) Anemia: Status: Acute (3) SVT (supraventricular tachycardia): Status: Acute (4) Chest pain: Status: Acute (5) Essential hypertension: Status: Acute Plan Pleasant 56-year-old female who had supraventricular tachycardia in the setting of anemia, Hypomagnesium as well as foot infection. Electrolytes are being repleted. Blood pressure is elevated. I am adding amlodipine 5 mg once a day. She has atypical chest pains. These are happening at rest. Currently not in SVT. Will control blood pressure 1st and will arrange stress testing for her most likely as outpatient. Monitor electrolytes closely. Thank you for allowing me to participate in the care of your patient. Please feel free to contact me if you have any questions. Time Spent With Patient Time: Total time spent is greater than 50% in coordination of care (as documented) at patient's floor/unit and/or counseling patient: Progress Note: Quality Stroke Does the patient have a stroke diagnosis?: No Procedures Date of Service Date of Service: 05/14/22
[2022-05-14] MEDS: amLODIPine Besylate 5 MG TABLET PO (11:23)
[2022-05-14 11:32] LABS: Glucose, Whole Blood 241 mg/dL (60-115)
--- NOTE | 2022-05-14 11:42 | PM.PNNEP ---
Subjective Subjective Date of Service: 05/14/22 Interval history: Events noted. All recent data reviewed Physical Exam Vital Signs: Vital Signs: Last Vital Signs Temp 98.9 F 05/14/22 08:00 Pulse 95 05/14/22 08:00 Resp 18 05/14/22 08:00 BP 171/82 H 05/14/22 08:00 Pulse Ox 96 05/14/22 08:00 O2 Del Method 05/14/22 08:00 BMI result Body Mass Index 32.0 Const: General: no acute distress Neck: Neck: Yes supple Resp: Auscultation: diminished lung sounds Cardio: Rate: regular rate GI: Palpation (GI): Soft to palpation Neuro: General: moves all extremities Objective Data Labs CBC & Chem 7: 05/14/22 05:57 05/14/22 05:57 Labs: Laboratory Results - last 24 hr 05/12/22 05/13/22 05/13/22 08:08 15:44 19:12 WBC RBC Hgb Hct MCV MCH MCHC RDW Plt Count MPV Absolute Nucleated RBC Nucleated RBC % (auto) Sodium Potassium Chloride Carbon Dioxide Anion Gap BUN Creatinine Estim Creat Clear Calc Estimated GFR POC Glucose 221 H 263 H Random Glucose Calcium Magnesium C-Reactive Protein Random Vancomycin Blood Type O Positive Antibody Screen NEGATIVE Crossmatch See Detail 05/14/22 05/14/22 05/14/22 05:57 05:57 05:57 WBC 17.0 H RBC 3.66 L D Hgb 8.1 L D Hct 24.3 L D MCV 66.4 L D MCH 22.1 L MCHC 33.3 RDW 22.7 H Plt Count 681 H MPV 9.1 L Absolute Nucleated RBC 0.000 Nucleated RBC % (auto) 0.0 Sodium 134 L Potassium 3.7 Chloride 95 L Carbon Dioxide 26 Anion Gap 17 BUN 20 H Creatinine 1.24 Estim Creat Clear Calc 44.5 Estimated GFR 44 POC Glucose Random Glucose 294 H Calcium 8.6 Magnesium 1.4 L* C-Reactive Protein 24.83 H Random Vancomycin 11.1 L Blood Type Antibody Screen Crossmatch 05/14/22 05/14/22 07:11 11:10 WBC RBC Hgb Hct MCV MCH MCHC RDW Plt Count MPV Absolute Nucleated RBC Nucleated RBC % (auto) Sodium Potassium Chloride Carbon Dioxide Anion Gap BUN Creatinine Estim Creat Clear Calc Estimated GFR POC Glucose 326 H 241 H Random Glucose Calcium Magnesium C-Reactive Protein Random Vancomycin Blood Type Antibody Screen Crossmatch Microbiology Microbiology Results: Microbiology 05/12/22 21:14 Blood - Venous Blood Culture - Preliminary Prelim: GPC Gram Stain only 05/12/22 Unknown Urine clean catch - Clean Catch Midstream Urine Culture - Preliminary Staphylococcus species Gram negative con 05/12/22 02:17 Blood - Venous Blood Culture - Final Staphylococcus aureus 05/12/22 02:18 Blood - Venous Blood Culture - Final Staphylococcus aureus 05/12/22 21:14 Blood - Venous Blood Culture - Preliminary No growth after 24 hours. Procedures Date of Service Date of Service: 05/14/22 Assessment & Plan Assessment and plan (1) LUIS (acute kidney injury): Status: Acute Assessment and Plan: Ms. Mitra Parish is a 56-year-old female with past medical history of water intoxication syndrome, recurrent LUIS in the setting of sepsis, CKD stage IIIa BL Cr 1.0-1.1mg/dL, right renal simple cyst, T2DM, HTN, peripheral vascular disease status post left anterior tibial plasty, and chronic left diabetic foot wound who presents for worsening of chronic left foot wound. LUIS on CKD BL Cr 1.0-1.1mg/dL several episodes of LUIS in the setting of sepsis Now with Cr 2.28 in the setting of left foot osteo U/A with hyalin casts. Renal function improved/better C/W current management. Shall F/U Time Spent With Patient Time: Total time spent is greater than 50% in coordination of care (as documented) at patient's floor/unit and/or counseling patient: Progress Note: Quality Stroke Does the patient have a stroke diagnosis?: No
--- NOTE | 2022-05-14 12:59 | PM.CNGS ---
History of Present Illness Consult details Consult date: 05/14/22 Reason for consult: wound care Narrative: 56-year-old female well known to me with prior history of nonhealing left foot ulceration. [facility] and subsequently developed significant swelling of that left foot. She presented to the hospital with significant swelling and discomfort of that foot. She now presents to us for vascular follow-up. Review of Systems Review of Systems: Yes all other systems are reviewed and are negative Constitutional: Constitutional: Reports no additional constitutional complaints ENT: Reports Normal hearing present Cardiovascular: Cardiovascular: Denies chest pain, Denies chest pain at rest, Denies chest pain with activity and Denies pedal edema Respiratory: Respiratory: Denies cough Gastrointestinal: Gastrointestinal: Denies abdominal pain Musculoskeletal: Musculoskeletal: Denies abnormal gait, Denies muscle cramps and Denies radiating pain into limb Integumentary/Breasts: Skin/Breast: Denies skin ulcer and Denies wounds Neurologic: Reports Normal hearing present and Denies abnormal gait Psychiatric: Psychiatric: Reports no additional psychiatric complaints PMFSH Past Medical History Medical History Acid reflux Anemia in chronic kidney disease (CKD) Arthritis Carpal tunnel syndrome Chronic ulcer of right foot Degenerative joint disease of spine Hypertension Irritable bowel syndrome Leukocytosis Obesity Osteomyelitis Osteoporosis PAD (peripheral artery disease) Peripheral neuropathy Prolapsed uterus Rectal prolapse Retinopathy Toe ulcer due to DM Functional capacity: uses cane/walker Family History Family History Maternal Grandmother Diabetes Maternal Grandfather Heart disease Cancer of unknown origin Mother HTN (hypertension) Paternal Uncle Thalassemia Surgical History Surgical History H/O dilation and curettage Social History Social History Household Members: Children Household Members Other:: 4 Housing: Apartment Are you a primary home care coordinator to a significant other at home: No Do you presently have visiting nurse or other home services: No Alcohol intake: never Patient Tobacco Use Status: Never used Tobacco Second Hand Smoke Exposure: No service: No Current occupational status: disabled Meds Allergies Allergy/AdvReac Type Severity Reaction Status Date / Time No Known Allergies Allergy Unknown UNKNOWN Verified 02/06/22 10:49 [NO KNOWN ALLERGIES] Active Medications: Current Medications Acetaminophen (Acetaminophen 325 Mg Tablet) 650 mg PO Q6H PRN PRN Reason: Pain, Mild (Pain Scale 1-3) Amlodipine Besylate (Amlodipine Besylate 5 Mg Tablet) 5 mg PO DAILY [facility]; Protocol Last Admin: 05/14/22 11:23 Dose: 5 mg Dextrose (Dextrose 50 % 25 Gm/50 Ml Syringe) 25 gm IVPUSH Q15M PRN; Protocol PRN Reason: per Hypoglycemia Standing Ord. Docusate Sodium (Docusate Sodium 100 Mg Capsule) 100 mg PO DAILY PRN PRN Reason: Constipation Epoetin Socrates (Epoetin Socrates 10,000 Unit/Ml Vial) 10,000 unit SUBCUT MOWEFR [facility] Last Admin: 05/14/22 11:23 Dose: 10,000 unit Folic Acid (Folic Acid 1 Mg Tablet) 1 mg PO DAILY [facility] Last Admin: 05/14/22 07:45 Dose: 1 mg Glucose (Glucose Gel 15 Gm Gel..Gram.) 15 gm PO Q15M PRN; Protocol PRN Reason: per Hypoglycemia Standing Ord. Heparin Sodium (Porcine) (Heparin Sodium,Porcine 5,000 Unit/Ml Vial) 5,000 unit SUBCUT Q12H [facility] Last Admin: 05/14/22 10:33 Dose: 5,000 unit Hydromorphone HCl (Hydromorphone Hcl 1 Mg/Ml Syringe) 0.5 mg IVPUSH Q4H PRN; Protocol PRN Reason: Pain, Severe (Pain Scale 7-10) Cefazolin Sodium/Dextrose (Ancef) 2 gm in 50 mls @ 100 mls/hr IV Q12H [facility] Insulin Glargine (Insulin Glargine,Hum.Rec.Anlog 100 Unit/Ml 10 Ml Vial) 25 unit SUBCUT DAILY [facility] Insulin Human Lispro (Insulin Lispro 100 Unit/Ml 3 Ml Vial) 0 unit SUBCUT QIDACHS [facility]; Protocol Last Admin: 05/14/22 11:41 Dose: 6 unit Metoprolol Succinate (Metoprolol Succinate Er 50 Mg Tab.Er.24h) 50 mg PO DAILY [facility]; Protocol Ondansetron HCl (Ondansetron Hcl 4 Mg/2 Ml Vial) 4 mg IVPUSH Q8H PRN PRN Reason: Nausea and Vomiting Pharmacy Consult (Consult Rx Vancomycin Dosing) 1 each MISCELLANE DAILY PRN PRN Reason: Consult order Pharmacy Consult (Consult Rx Vancomycin Dosing) 1 each MISCELLANE DAILY PRN PRN Reason: Consult order Pharmacy Consult (Consult Rx Perform Med Rec) 1 each MISCELLANE ONCE PRN PRN Reason: Consult order Sodium Chloride (0.9 % Sodium Chloride Flush 3 Ml Syringe) 3 ml IVFLUSH QSHIFT [facility] Last Admin: 05/14/22 07:48 Dose: 3 ml Vitamin D (Cholecalciferol (Vitamin D3) 25 Mcg Tablet) 25 mcg PO DAILY [facility] Last Admin: 05/14/22 07:45 Dose: 25 mcg Home Medications Medication Instructions Recorded Confirmed Last Taken Type aspirin 81 mg tablet,delayed 1 tab PO DAILY 07/02/21 05/12/22 05/11/22 History release cholecalciferol (vitamin D3) 25 1 tab PO DAILY 07/02/21 05/12/22 05/11/22 History mcg (1,000 unit) tablet metformin 1,000 mg tablet 1 tab PO BID 07/02/21 05/12/22 05/11/22 History blood sugar diagnostic (FreeStyle #10 ea 09/18/21 05/12/22 05/11/22 History Lite Strips) lancets 33 gauge (TRUEplus Lancets) #100 ea 09/18/21 05/12/22 05/11/22 History pen needle, diabetic 31 gauge x #1,200 ea 09/18/21 05/12/22 05/11/22 History 5/16 (UltiCare Pen Needle) bacitracin 500 unit/gram topical 1 appl topical TID 12/19/21 05/12/22 05/11/22 History ointment acetaminophen 500 mg tablet 2 tab PO Q8H PRN pain 05/12/22 05/12/22 05/11/22 History lidocaine-prilocaine 2.5 %-2.5 % 1 appl topical DAILY PRN pain 05/12/22 05/12/22 05/11/22 History topical cream Physical Exam Vital Signs: Vital Signs: Last Vital Signs Temp 99.8 F 05/14/22 12:00 Pulse 92 05/14/22 12:00 Resp 18 05/14/22 12:00 BP 135/61 05/14/22 12:00 Pulse Ox 93 05/14/22 12:00 O2 Del Method 05/14/22 12:00 BMI result Body Mass Index 32.0 Const: General: cooperative, healthy appearing and comfortable Orientation/consciousness: oriented to person, oriented to place and oriented to time HEENT: Head: Yes normal to inspection Neck: Neck: Yes normal visual inspection Carotids: no bruits Chest: Chest palpation & inspection: normal inspection of the chest Resp: Effort & Inspection: normal respiratory effort and able to speak in complete sentences Auscultation: clear to auscultation bilaterally, no crackles, no rales, no rhonchi and no wheezes Cardio: Rate: regular rate Rhythm: regular rhythm Heart sounds: S1 normal heart sound present and S2 normal heart sound present Bruits: no carotid bruits Peripheral pulses: dorsalis pedis present (Palpable left dorsalis pedis pulse) GI: Inspection: Yes normal to inspection Skin: Other: Left foot ulcer on the plantar aspect about a quarter side penetrates all the way out to the dorsum. I did not appreciate any fluid collections. The anterior lateral aspect was opened. There was no collection noted at that location either. Wounds: no wounds Hair: normal Neuro: General: oriented to person, oriented to place and oriented to time Cranial nerves: Yes CN's II-XII intact bilaterally and Yes Normal hearing present Cognition (Neuro): normal cognition Motor exam (neuro): 5/5 motor strength present throughout Extrem: Other: venous exam: No significant superficial varicosities or spider telangiectasias, minimal edema General: No clubbing, No cyanosis and No edema Psych: Appearance: grossly normal Mental Status: mental status grossly normal Speech and movement: Normal speech and movement present Results Labs Result diagrams: 05/14/22 05:57 05/14/22 05:57 Labs: Abnormal lab results 05/12/22 05/13/22 05/13/22 Range/Units 08:08 15:44 19:12 WBC (4.8-10.8) X10*3/uL RBC (4.20-5.50) X10*6/uL Hgb (12.0-16.0) g/dl Hct (37.0-47.0) % MCV (80.0-98.0) fL MCH (27.0-33.0) pg RDW (11.0-16.0) % Plt Count (160-400) X10*3/uL MPV (9.4-12.3) fL Sodium (135-145) mmol/L Chloride (96-108) mmol/L BUN (9-16) mg/dL POC Glucose 221 H 263 H (60-115) mg/dL Random Glucose (60-115) mg/dL Magnesium (1.6-2.6) mg/dL C-Reactive Protein (< or = 0.50) mg/dL Random Vancomycin (15-20) mcg/mL Crossmatch See Detail 05/14/22 05/14/22 05/14/22 Range/Units 05:57 05:57 05:57 WBC 17.0 H (4.8-10.8) X10*3/uL RBC 3.66 L D (4.20-5.50) X10*6/uL Hgb 8.1 L D (12.0-16.0) g/dl Hct 24.3 L D (37.0-47.0) % MCV 66.4 L D (80.0-98.0) fL MCH 22.1 L (27.0-33.0) pg RDW 22.7 H (11.0-16.0) % Plt Count 681 H (160-400) X10*3/uL MPV 9.1 L (9.4-12.3) fL Sodium 134 L (135-145) mmol/L Chloride 95 L (96-108) mmol/L BUN 20 H (9-16) mg/dL POC Glucose (60-115) mg/dL Random Glucose 294 H (60-115) mg/dL Magnesium 1.4 L* (1.6-2.6) mg/dL C-Reactive Protein 24.83 H (< or = 0.50) mg/dL Random Vancomycin 11.1 L (15-20) mcg/mL Crossmatch 05/14/22 05/14/22 Range/Units 07:11 11:10 WBC (4.8-10.8) X10*3/uL RBC (4.20-5.50) X10*6/uL Hgb (12.0-16.0) g/dl Hct (37.0-47.0) % MCV (80.0-98.0) fL MCH (27.0-33.0) pg RDW (11.0-16.0) % Plt Count (160-400) X10*3/uL MPV (9.4-12.3) fL Sodium (135-145) mmol/L Chloride (96-108) mmol/L BUN (9-16) mg/dL POC Glucose 326 H 241 H (60-115) mg/dL Random Glucose (60-115) mg/dL Magnesium (1.6-2.6) mg/dL C-Reactive Protein (< or = 0.50) mg/dL Random Vancomycin (15-20) mcg/mL Crossmatch Short CBC 05/14/22 Range/Units 05:57 WBC 17.0 H (4.8-10.8) X10*3/uL Hgb 8.1 L D (12.0-16.0) g/dl Hct 24.3 L D (37.0-47.0) % Plt Count 681 H (160-400) X10*3/uL BMP 05/14/22 05:57 Sodium 134 L Potassium 3.7 Chloride 95 L Carbon Dioxide 26 BUN 20 H Creatinine 1.24 Calcium 8.6 Urine 05/12/22 Range/Units 06:39 Urine Color Dark Yellow Urine Appearance Turbid Urine pH 6.5 (5.0-9.0) Ur Specific [place] 1.020 (1.005-1.025) Urine Protein 100 (2+) H (Neg-Trace) mg/dL Urine Glucose (UA) 500 H (Negative) mg/dL All other labs normal. Assessment and Plan (1) Diabetic foot ulcer: Status: Acute Patient has nonhealing diabetic foot ulcer. MRI from 05/12 reviewed. There is no collection I appreciate on clinical exam on the anterior lateral aspect of the foot. It appears to have been opened and clearly draining at the current time. In addition there is concern for underlying osteomyelitis. Would get Infectious Disease input. May require long-term IV antibiotics. There is evidence of Charcot foot malformation. If this is not able to heal she is at a high risk for below-knee amputation. Thank you for allowing me to assist in her care. If there are any questions or concerns please do not hesitate to contact us. (2) Peripheral vascular disease: Status: Acute Plan Arterial ultrasound from 05/12 reviewed. It is triphasic flow. In addition I am able to palpate a dorsalis pedis pulse. Am not concerned about arterial flow. Continue medical management for now. Procedures Date of Service Date of Service: 05/14/22
--- NOTE | 2022-05-14 15:40 | MHC.CM.PN ---
CM MET WITH PT TO DISCUSS DC PLANS PT REPORTS SHE IS GOING HOME FROM HERE SHE IS NOT INTERESTED IN STR SHE ALSO EXPLAINS SHE IS STILL IN PAIN AND WANTS THE RESULTS FROM IMAGING SHE HAD DONE IN [place] SHE REPORTS BEING UPSET THAT THINGS HAVE NOT YET IMPROVED SHE WAS ENCOURAGED TO DISCUSS CONCERNS WITH
--- NOTE | 2022-05-14 15:52 | W.PM.IDCN ---
History of Present Illness Data of Consult Service Date: 05/14/22 Requesting physician: Yohannes Servin Primary Care Provider: [facility] Reason for consult: foot discomfort She presents to hospital with left foot erythema and swelling for three to four days. She has MSSA blood She has echo and vascular evaluation pending. Review of Systems Review of Systems: Yes all other systems are reviewed and are negative [facility] Past Medical History Medical History Acid reflux Anemia in chronic kidney disease (CKD) Arthritis Carpal tunnel syndrome Chronic ulcer of right foot Degenerative joint disease of spine Hypertension Irritable bowel syndrome Leukocytosis Obesity Osteomyelitis Osteoporosis PAD (peripheral artery disease) Peripheral neuropathy Prolapsed uterus Rectal prolapse Retinopathy Toe ulcer due to DM Functional capacity: uses cane/walker Family History Family History Maternal Grandmother Diabetes Maternal Grandfather Heart disease Cancer of unknown origin Mother HTN (hypertension) Paternal Uncle Thalassemia Family history: reviewed and not pertinent Surgical History Surgical History H/O dilation and curettage Social History Social History Household Members: Children Household Members Other:: 4 Housing: Apartment Are you a primary child care assistant to a significant other at home: No Do you presently have visiting nurse or other home services: No Alcohol intake: never Patient Tobacco Use Status: Never used Tobacco Second Hand Smoke Exposure: No service: No Current occupational status: disabled Meds Allergies Allergy/AdvReac Type Severity Reaction Status Date / Time No Known Allergies Allergy Unknown UNKNOWN Verified 02/06/22 10:49 [NO KNOWN ALLERGIES] Active Medications: Current Medications Acetaminophen (Acetaminophen 325 Mg Tablet) 650 mg PO Q6H PRN PRN Reason: Pain, Mild (Pain Scale 1-3) Amlodipine Besylate (Amlodipine Besylate 5 Mg Tablet) 5 mg PO DAILY [facility]; Protocol Last Admin: 05/14/22 11:23 Dose: 5 mg Dextrose (Dextrose 50 % 25 Gm/50 Ml Syringe) 25 gm IVPUSH Q15M PRN; Protocol PRN Reason: per Hypoglycemia Standing Ord. Docusate Sodium (Docusate Sodium 100 Mg Capsule) 100 mg PO DAILY PRN PRN Reason: Constipation Epoetin Socrates (Epoetin Socrates 10,000 Unit/Ml Vial) 10,000 unit SUBCUT MOWEFR [facility] Last Admin: 05/14/22 11:23 Dose: 10,000 unit Folic Acid (Folic Acid 1 Mg Tablet) 1 mg PO DAILY [facility] Last Admin: 05/14/22 07:45 Dose: 1 mg Glucose (Glucose Gel 15 Gm Gel..Gram.) 15 gm PO Q15M PRN; Protocol PRN Reason: per Hypoglycemia Standing Ord. Heparin Sodium (Porcine) (Heparin Sodium,Porcine 5,000 Unit/Ml Vial) 5,000 unit SUBCUT Q12H [facility] Last Admin: 05/14/22 10:33 Dose: 5,000 unit Hydromorphone HCl (Hydromorphone Hcl 1 Mg/Ml Syringe) 0.5 mg IVPUSH Q4H PRN; Protocol PRN Reason: Pain, Severe (Pain Scale 7-10) Cefazolin Sodium/Dextrose (Ancef) 2 gm in 50 mls @ 100 mls/hr IV Q12H [facility] Insulin Glargine (Insulin Glargine,Hum.Rec.Anlog 100 Unit/Ml 10 Ml Vial) 25 unit SUBCUT DAILY [facility] Insulin Human Lispro (Insulin Lispro 100 Unit/Ml 3 Ml Vial) 0 unit SUBCUT QIDACHS [facility]; Protocol Last Admin: 05/14/22 11:41 Dose: 6 unit Metoprolol Succinate (Metoprolol Succinate Er 50 Mg Tab.Er.24h) 50 mg PO DAILY [facility]; Protocol Ondansetron HCl (Ondansetron Hcl 4 Mg/2 Ml Vial) 4 mg IVPUSH Q8H PRN PRN Reason: Nausea and Vomiting Pharmacy Consult (Consult Rx Vancomycin Dosing) 1 each MISCELLANE DAILY PRN PRN Reason: Consult order Pharmacy Consult (Consult Rx Vancomycin Dosing) 1 each MISCELLANE DAILY PRN PRN Reason: Consult order Pharmacy Consult (Consult Rx Perform Med Rec) 1 each MISCELLANE ONCE PRN PRN Reason: Consult order Sodium Chloride (0.9 % Sodium Chloride Flush 3 Ml Syringe) 3 ml IVFLUSH QSHIFT [facility] Last Admin: 05/14/22 07:48 Dose: 3 ml Vitamin D (Cholecalciferol (Vitamin D3) 25 Mcg Tablet) 25 mcg PO DAILY [facility] Last Admin: 05/14/22 07:45 Dose: 25 mcg Home Medications Medication Instructions Recorded Confirmed Last Taken Type aspirin 81 mg tablet,delayed 1 tab PO DAILY 07/02/21 05/12/22 05/11/22 History release cholecalciferol (vitamin D3) 25 1 tab PO DAILY 07/02/21 05/12/22 05/11/22 History mcg (1,000 unit) tablet metformin 1,000 mg tablet 1 tab PO BID 07/02/21 05/12/22 05/11/22 History blood sugar diagnostic (FreeStyle #10 ea 09/18/21 05/12/22 05/11/22 History Lite Strips) lancets 33 gauge (TRUEplus Lancets) #100 ea 09/18/21 05/12/22 05/11/22 History pen needle, diabetic 31 gauge x #1,200 ea 09/18/21 05/12/22 05/11/22 History 5/16 (UltiCare Pen Needle) bacitracin 500 unit/gram topical 1 appl topical TID 12/19/21 05/12/22 05/11/22 History ointment acetaminophen 500 mg tablet 2 tab PO Q8H PRN pain 05/12/22 05/12/22 05/11/22 History lidocaine-prilocaine 2.5 %-2.5 % 1 appl topical DAILY PRN pain 05/12/22 05/12/22 05/11/22 History topical cream Physical Exam Vital Signs: Vital Signs: Last Vital Signs Temp 99.0 F 05/14/22 15:19 Pulse 95 05/14/22 15:19 Resp 18 05/14/22 15:19 BP 187/83 H 05/14/22 15:19 Pulse Ox 96 05/14/22 15:19 O2 Del Method 05/14/22 15:19 BMI result Body Mass Index 32.0 Const: General: cooperative HEENT: Head: Yes normal to inspection Face and sinus: Yes normal facial exam Mouth: Normal oral and palatal mucosa present Teeth and gingiva: dentition normal Eyes: General: appearance normal, both eyes and all related structures Pupils: Equal, round and reactive pupils present Resp: Effort & Inspection: normal respiratory effort Cardio: Rate: regular rate Rhythm: regular rhythm GI: Palpation (GI): Soft to palpation and nontender : General: Yes no CVA tenderness Back/Spine/Pelvis: Back: no CVA tenderness Skin: General skin exam: no rashes or lesions noted Neuro: General: moves all extremities Cranial nerves: Yes Equal, round and reactive pupils present Extrem: Other: left foot area erythema and some blistering top Psych: Appearance: grossly normal Results Labs CBC & Chem 7: 05/14/22 05:57 05/14/22 05:57 Labs: Short CBC 05/14/22 Range/Units 05:57 WBC 17.0 H (4.8-10.8) X10*3/uL Hgb 8.1 L D (12.0-16.0) g/dl Hct 24.3 L D (37.0-47.0) % Plt Count 681 H (160-400) X10*3/uL BMP 05/14/22 05:57 Sodium 134 L Potassium 3.7 Chloride 95 L Carbon Dioxide 26 BUN 20 H Creatinine 1.24 Calcium 8.6 Microbiology Microbiology Results: Microbiology 05/12/22 21:14 Blood - Venous Blood Culture - Preliminary Prelim: GPC Gram Stain only 05/12/22 Unknown Urine clean catch - Clean Catch Midstream Urine Culture - Preliminary Staphylococcus species Gram negative con 05/12/22 02:17 Blood - Venous Blood Culture - Final Staphylococcus aureus 05/12/22 02:18 Blood - Venous Blood Culture - Final Staphylococcus aureus 05/12/22 21:14 Blood - Venous Blood Culture - Preliminary No growth after 24 hours. Assessment and Plan (1) Diabetic foot ulcer: Status: Acute She has bacteremia likely from foot ulcer. MSSA cause. (2) Abscess of foot: Status: Acute Plan Continue Kefzol for six weeks likely cover fistula/osteomyelitis Check echo. Vascular evaluation
[2022-05-14 16:40] LABS: Glucose, Whole Blood 240 mg/dL (60-115)
[2022-05-14] MEDS: ceFAZolin Sodium/Dextrose,Iso 2 GM/50 ML PIGGYBACK IV (19:34)
[2022-05-14 20:06] LABS: Glucose, Whole Blood 246 mg/dL (60-115)
[2022-05-14] MEDS: Docusate Sodium 100 MG CAPSULE PO (20:08)
[2022-05-15] MEDS: HYDROmorphone HCl 1 MG/ML SYRINGE 0.5 MG IVPUSH ×2 (00:52→20:23)
--- NOTE | 2022-05-15 00:56 | PC.NURSE ---
Addendum entered by China Garza RN 05/15/22 00:59: ABD LUQ near rib cage, feeling like a exploring, ABD above the umbilicus cord pain like a someone ripping the belly. provide dilaudid 0.5 mg. continue monitor for abd pain, dizziness, and BP. Original Note: pt complained head spinning feeling is worsening. dizziness started after breakfast. BP 00:00 at 165/77, and ABD pain R
[2022-05-15 04:00] VITALS: BP 135/67; PULSE 91; RESP 14; TEMP 36.3; O2SAT 96
[2022-05-15 06:22] LABS: Hematocrit 26.6 % (37.0-47.0); Hemoglobin 8.5 g/dl (12.0-16.0); Mean Corpuscular Hemoglobin 21.7 pg (27.0-33.0); Mean Platelet Volume 8.9 fL (9.4-12.3); Platelet Count 709 X10*3/uL (160-400); Red Blood Count 3.91 X10*6/uL (4.20-5.50); Red Cell Distribution Width 22.5 % (11.0-16.0)
[2022-05-15 06:34] LABS: Anion Gap 18 (12-20); Blood Urea Nitrogen 20 mg/dL (9-16); Calcium 8.9 mg/dL (8.4-10.2); Carbon Dioxide 27 mmol/L (22-29); Chloride 95 mmol/L (96-108); Creatinine Clr Calc Pharmacy 59.3; Estimated Glomerular Filt Rate > 60; Glucose Random 186 mg/dL (60-115); Magnesium 1.5 mg/dL (1.6-2.6); Potassium 4.1 mmol/L (3.3-5.1); Sodium 136 mmol/L (135-145)
[2022-05-15 06:53] VITALS: BP 138/67; PULSE 87; RESP 18; TEMP 36.1; O2SAT 97
[2022-05-15 07:17] LABS: Glucose, Whole Blood 184 mg/dL (60-115)
--- NOTE | 2022-05-15 08:08 | P.PNIM_ITS ---
Subjective Subjective Date of Service: 05/15/22 Review of Systems Follow up MSSA bacteremia, osteomyelitis, foot wound has multiple complaints including abdominal pain Feels like a brillo pad in my stomach Head pain, leg pain. Physical Exam Vital Signs: Vital Signs: Last Vital Signs Temp 97 F 05/15/22 06:53 Pulse 87 05/15/22 06:53 Resp 18 05/15/22 06:53 BP 138/67 05/15/22 06:53 Pulse Ox 97 05/15/22 06:53 O2 Del Method 05/15/22 06:53 BMI result Body Mass Index 32.0 Appearing in no acute distress lung sounds are clear to auscultation heart regular rate rhythm, clear S1, S2 positive bowel sounds, abdomen is soft, nontender neuro patient is alert x3, no focal deficits Left foot charoct with quarter size wound to plantar aspect of foot Blistered open area Objective Data Active Medications Acetaminophen (Acetaminophen 325 Mg Tablet) 650 mg PO Q6H PRN PRN Reason: Pain, Mild (Pain Scale 1-3) Amlodipine Besylate (Amlodipine Besylate 5 Mg Tablet) 5 mg PO DAILY [facility]; Protocol Last Admin: 05/14/22 11:23 Dose: 5 mg Documented By: CLARI Dextrose (Dextrose 50 % 25 Gm/50 Ml Syringe) 25 gm IVPUSH Q15M PRN; Protocol PRN Reason: per Hypoglycemia Standing Ord. Docusate Sodium (Docusate Sodium 100 Mg Capsule) 100 mg PO DAILY PRN PRN Reason: Constipation Last Admin: 05/14/22 20:08 Dose: 100 mg Documented By: DEBORAH Epoetin Socrates (Epoetin Socrates 10,000 Unit/Ml Vial) 10,000 unit SUBCUT MOWEFR [facility] Last Admin: 05/14/22 11:23 Dose: 10,000 unit Documented By: CLARI Folic Acid (Folic Acid 1 Mg Tablet) 1 mg PO DAILY [facility] Last Admin: 05/14/22 07:45 Dose: 1 mg Documented By: CLARI Glucose (Glucose Gel 15 Gm Gel..Gram.) 15 gm PO Q15M PRN; Protocol PRN Reason: per Hypoglycemia Standing Ord. Heparin Sodium (Porcine) (Heparin Sodium,Porcine 5,000 Unit/Ml Vial) 5,000 unit SUBCUT Q12H [facility] Last Admin: 05/14/22 22:06 Dose: 5,000 unit Documented By: DEBORAH Hydromorphone HCl (Hydromorphone Hcl 1 Mg/Ml Syringe) 0.5 mg IVPUSH Q4H PRN; Protocol PRN Reason: Pain, Severe (Pain Scale 7-10) Last Admin: 05/15/22 00:52 Dose: 0.5 mg Documented By: DEBORAH Cefazolin Sodium/Dextrose (Ancef) 2 gm in 50 mls @ 100 mls/hr IV Q12H [facility] Last Infusion: 05/14/22 20:23 Dose: 0 mls/hr Documented By: DEBORAH Magnesium Sulfate (Magnesium Sulfate/H2o) 2 gm in 50 mls @ 25 mls/hr IV ONCE ONE Stop: 05/15/22 10:06 Insulin Glargine (Insulin Glargine,Hum.Rec.Anlog 100 Unit/Ml 10 Ml Vial) 25 unit SUBCUT DAILY [facility] Insulin Human Lispro (Insulin Lispro 100 Unit/Ml 3 Ml Vial) 0 unit SUBCUT QIDACHS [facility]; Protocol Last Admin: 05/14/22 20:08 Dose: 6 unit Documented By: DEBORAH Metoprolol Succinate (Metoprolol Succinate Er 50 Mg Tab.Er.24h) 50 mg PO DAILY [facility]; Protocol Ondansetron HCl (Ondansetron Hcl 4 Mg/2 Ml Vial) 4 mg IVPUSH Q8H PRN PRN Reason: Nausea and Vomiting Pharmacy Consult (Consult Rx Vancomycin Dosing) 1 each MISCELLANE DAILY PRN PRN Reason: Consult order Pharmacy Consult (Consult Rx Vancomycin Dosing) 1 each MISCELLANE DAILY PRN PRN Reason: Consult order Pharmacy Consult (Consult Rx Perform Med Rec) 1 each MISCELLANE ONCE PRN PRN Reason: Consult order Sodium Chloride (0.9 % Sodium Chloride Flush 3 Ml Syringe) 3 [facility] Last Admin: 05/14/22 19:36 Dose: 3 ml Documented By: DEBORAH Vitamin D (Cholecalciferol (Vitamin D3) 25 Mcg Tablet) 25 mcg PO DAILY [facility] Last Admin: 05/14/22 07:45 Dose: 25 mcg Documented By: CLARI Labs CBC & Chem 7: 05/15/22 05:36 05/15/22 05:36 Labs: Laboratory Results - last 24 hr 05/14/22 05/14/22 05/14/22 11:10 15:23 19:17 MCV MCH MCHC RDW Plt Count MPV Absolute Nucleated RBC Nucleated RBC % (auto) Anion Gap Estim Creat Clear Calc Estimated GFR POC Glucose 241 H 240 H 246 H Random Glucose Calcium Magnesium 05/15/22 05/15/22 05/15/22 05:36 05:36 06:52 MCV 68.0 L MCH 21.7 L MCHC 32.0 RDW 22.5 H Plt Count 709 H MPV 8.9 L Absolute Nucleated RBC 0.000 Nucleated RBC % (auto) 0.0 Anion Gap 18 Estim Creat Clear Calc 59.3 Estimated GFR > 60 POC Glucose 184 H Random Glucose 186 H Calcium 8.9 Magnesium 1.5 L Microbiology Microbiology Results: Microbiology 05/14/22 05:57 Blood Culture - Preliminary Blood - Subclavian No growth after 24 hours. 05/14/22 05:57 Blood Culture - Preliminary Blood - Subclavian No growth after 24 hours. 05/12/22 Unknown Urine Culture - Final Urine clean catch - Clean Catch Midstream Staphylococcus aureus Escherichia coli 05/12/22 21:14 Blood Culture - Preliminary Blood - Venous No growth after 48 hours. 05/12/22 21:14 Blood Culture - Preliminary Blood - Venous Prelim: GPC Gram Stain only 05/12/22 02:17 Blood Culture - Final Blood - Venous Staphylococcus aureus 05/12/22 02:18 Blood Culture - Final Blood - Venous Staphylococcus aureus Assessment and Plan (1) Acute hyponatremia: Status: Acute (2) Weakness: Status: Acute (3) PAD (peripheral artery disease): Status: Inactive (4) Anemia in chronic kidney disease (CKD): Status: Inactive Plan 56yo F with DM2, PAD, chronic osteomyeltis, hx hypoNa, HLD, CKD3, chronic anemia presenting with sepsis from L foot wound communicating with bone concerning for osteomyelitis MSSA bacteremia DM foot ulcer/osteomyelitis/charcot foot PAD Vascular Surgery + ID consultations pending. Two sets of BCx from 05/12 growing MSSA. TTE no vegetation cefazolin Picc line ordered , needs 6 weeks total of Cefazolin anemia, mixed CIRO/thalassemia trait. Stable s/p 2u PRBCs Heme/Onc consulted; start epo 05867 units HypoMg replete LUIS. resolved likely due to sepsis + anemia. holding lisinopril. Nephrology following. SVT terminated after adenosine in ED on day of admission and has not recurred. Cardiology consulted.? Started on metoprolol succinate.? TTE normal EF no vegetation Outpt ischemic workup HypoNa nresolved chest pain/pressure suspect related to anemia, transfuse as above abdominal pain, history of cholelithiasis outpt US pending, followed by GI as outpt Leg pain s/p angioplastyu 10/11/[address] Vigil 05/14, good arterial flow, no need for other intervention at this time DM2 A1c 7.8.? SS, ADA diet HTN holding lisinopril but started metoprolol succinate- will increase dose for better control VTE ppx: resume UFH Attending Dr. Nava Full code In my clinical judgment, the patient requires continued hospitalization for the following reasons: IV ABX, surgical evaluation, severe anemia requiring transfusion Quality Stroke Does the patient have a stroke diagnosis?: No VTE Prior VTE?: No VTE Risk Level:: Medical - moderate - high VTE Device Contraindication: Treatment Not Indicated VTE Drug Contraindication: N/A - Med Ordered
[2022-05-15] MEDS: Magnesium Sulfate/H2O 2 GM/50 ML PIGGYBACK IV (08:29)
[2022-05-15] MEDS: ceFAZolin Sodium/Dextrose,Iso 2 GM/50 ML PIGGYBACK IV ×2 (08:29→19:33)
[2022-05-15] MEDS: 0.9 % Sodium Chloride Flush 3 ML SYRINGE IVFLUSH ×3 (08:30→20:31)
[2022-05-15] MEDS: Cholecalciferol (Vitamin D3) 25 MCG TABLET PO (08:30)
[2022-05-15] MEDS: Metoprolol Succinate ER 50 MG TAB.ER.24H PO (08:30)
[2022-05-15] MEDS: Folic Acid 1 MG TABLET PO (08:30)
[2022-05-15] MEDS: amLODIPine Besylate 5 MG TABLET PO (08:30)
[2022-05-15] MEDS: Insulin Lispro 100 UNIT/ML 3 ML VIAL SUBCUT ×4 (08:30→20:22)
[2022-05-15] MEDS: Insulin Glargine,Hum.rec.anlog 100 UNIT/ML 10 ML VIAL 25 UNIT SUBCUT (08:31)
[2022-05-15 10:58] VITALS: BP 137/63; PULSE 86; RESP 16; TEMP 36.6; O2SAT 97
[2022-05-15 11:02] LABS: Glucose, Whole Blood 275 mg/dL (60-115)
[2022-05-15] MEDS: Heparin Sodium,Porcine 5,000 UNIT/ML VIAL 5000 UNIT SUBCUT ×2 (11:54→20:22)
[2022-05-15 13:30] LABS: OBS Int Ctl Valid YES
[2022-05-15 13:31] LABS: OBS1 NEGATIVE (NEGATIVE)
[2022-05-15 15:10] VITALS: BP 144/69; PULSE 83; RESP 18; TEMP 36.5; O2SAT 97
[2022-05-15 15:53] LABS: Glucose, Whole Blood 255 mg/dL (60-115)
--- NOTE | 2022-05-15 16:49 | PC.NURSE ---
patient is c/o pain in abd. This RN offered dilaudid but patient refused. stated she has had this pain for months and now she is not going to take the pain medication. she is refusing all paim meds.
[2022-05-15 19:14] VITALS: BP 176/81; PULSE 88; RESP 18; TEMP 37.1; O2SAT 95
[2022-05-15 20:02] LABS: Glucose, Whole Blood 256 mg/dL (60-115)
[2022-05-15 23:17] VITALS: BP 163/75; PULSE 90; RESP 14; TEMP 36.5; O2SAT 96
[2022-05-16 03:31] VITALS: BP 142/77; PULSE 97; RESP 16; TEMP 36.2; O2SAT 97
[2022-05-16 06:52] VITALS: BP 152/81; PULSE 88; RESP 18; TEMP 36.6; O2SAT 97
[2022-05-16 06:55] LABS: Anion Gap 17 (12-20); Blood Urea Nitrogen 22 mg/dL (9-16); Calcium 9.4 mg/dL (8.4-10.2); Carbon Dioxide 27 mmol/L (22-29); Chloride 96 mmol/L (96-108); Creatinine Clr Calc Pharmacy 57.5; Estimated Glomerular Filt Rate 60; Glucose Random 230 mg/dL (60-115); Magnesium 1.5 mg/dL (1.6-2.6); Potassium 4.7 mmol/L (3.3-5.1); Sodium 135 mmol/L (135-145)
[2022-05-16 07:15] LABS: Glucose, Whole Blood 213 mg/dL (60-115)
[2022-05-16] MEDS: Folic Acid 1 MG TABLET PO (07:53)
[2022-05-16] MEDS: amLODIPine Besylate 5 MG TABLET PO (07:53)
[2022-05-16] MEDS: Cholecalciferol (Vitamin D3) 25 MCG TABLET PO (07:54)
[2022-05-16] MEDS: ceFAZolin Sodium/Dextrose,Iso 2 GM/50 ML PIGGYBACK IV ×3 (07:54→23:43)
[2022-05-16] MEDS: Insulin Lispro 100 UNIT/ML 3 ML VIAL SUBCUT ×4 (07:54→20:25)
[2022-05-16] MEDS: Metoprolol Succinate ER 50 MG TAB.ER.24H PO (07:54)
[2022-05-16] MEDS: Insulin Glargine,Hum.rec.anlog 100 UNIT/ML 10 ML VIAL 25 UNIT SUBCUT (07:54)
[2022-05-16] MEDS: 0.9 % Sodium Chloride Flush 3 ML SYRINGE IVFLUSH ×3 (07:55→23:43)
[2022-05-16] MEDS: Heparin Sodium,Porcine 5,000 UNIT/ML VIAL 5000 UNIT SUBCUT ×2 (09:00→20:25)
[2022-05-16] MEDS: Magnesium Sulfate/H2O 2 GM/50 ML PIGGYBACK IV (09:00)
[2022-05-16 11:00] VITALS: BP 134/63; PULSE 81; RESP 16; TEMP 36.6; O2SAT 98
[2022-05-16 11:23] LABS: Glucose, Whole Blood 237 mg/dL (60-115)
[2022-05-16 15:32] VITALS: BP 152/72; PULSE 85; RESP 18; TEMP 36.9; O2SAT 97
--- NOTE | 2022-05-16 15:40 | P.PNIM_ITS ---
Subjective Subjective Date of Service: 05/16/22 Interval History: seen and examined this morning follow up for osteomyelitis denies fever or chills Review of Systems Review of Systems: Yes all other systems are reviewed and are negative Constitutional Constitutional: Denies chills and Denies fever(s) Cardiovascular Cardiovascular: Denies chest pain, Denies palpitations and Denies dyspnea Respiratory Respiratory: Denies dyspnea Gastrointestinal Gastrointestinal: Reports abdominal pain (reporting abdominal pain for a year ) Endocrine Endocrine: Denies palpitations Physical Exam Vital Signs: Vital Signs: Last Vital Signs Temp 98.4 F 05/16/22 15:32 Pulse 85 05/16/22 15:32 Resp 18 05/16/22 15:32 BP 152/72 H 05/16/22 15:32 Pulse Ox 97 05/16/22 15:32 O2 Del Method 05/16/22 15:32 BMI result Body Mass Index 32.0 Const: General: comfortable, no acute distress, alert and awake Nutritional Appearance: overweight Orientation/consciousness: patient oriented x3 Resp: Effort & Inspection: normal respiratory effort and able to speak in complete sentences Auscultation: clear to auscultation bilaterally Cardio: Rate: regular rate Heart sounds: S1 normal heart sound present and S2 normal heart sound present GI: Inspection: No distended Palpation (GI): Soft to palpation and nontender Skin: Other: Neuro: General: patient oriented x3 Objective Data Active Medications Acetaminophen (Acetaminophen 325 Mg Tablet) 650 mg PO Q6H PRN PRN Reason: Pain, Mild (Pain Scale 1-3) Amlodipine Besylate (Amlodipine Besylate 5 Mg Tablet) 5 mg PO DAILY [facility]; Protocol Last Admin: 05/16/22 07:53 Dose: 5 mg Documented By: JAYY Dextrose (Dextrose 50 % 25 Gm/50 Ml Syringe) 25 gm IVPUSH Q15M PRN; Protocol PRN Reason: per Hypoglycemia Standing Ord. Docusate Sodium (Docusate Sodium 100 Mg Capsule) 100 mg PO DAILY PRN PRN Reason: Constipation Last Admin: 05/14/22 20:08 Dose: 100 mg Documented By: DEBORAH Epoetin Socrates (Epoetin Socrates 10,000 Unit/Ml Vial) 10,000 unit SUBCUT MOWEFR [facility] Last Admin: 05/16/22 11:58 Dose: 10,000 unit Documented By: ZIYAD Folic Acid (Folic Acid 1 Mg Tablet) 1 mg PO DAILY [facility] Last Admin: 05/16/22 07:53 Dose: 1 mg Documented By: JAYY Glucose (Glucose Gel 15 Gm Gel..Gram.) 15 gm PO Q15M PRN; Protocol PRN Reason: per Hypoglycemia Standing Ord. Heparin Sodium (Porcine) (Heparin Sodium,Porcine 5,000 Unit/Ml Vial) 5,000 unit SUBCUT Q12H [facility] Last Admin: 05/16/22 09:00 Dose: 5,000 unit Documented By: JAYY Hydromorphone HCl (Hydromorphone Hcl 1 Mg/Ml Syringe) 0.5 mg IVPUSH Q4H PRN; Protocol PRN Reason: Pain, Severe (Pain Scale 7-10) Last Admin: 05/15/22 20:23 Dose: 0.5 mg Documented By: RONNIE Cefazolin Sodium/Dextrose (Ancef) 2 gm in 50 mls @ 100 mls/hr IV Q8H [facility] Insulin Glargine (Insulin Glargine,Hum.Rec.Anlog 100 Unit/Ml 10 Ml Vial) 25 unit SUBCUT DAILY [facility] Last Admin: 05/16/22 07:54 Dose: 25 unit Documented By: JAYY Insulin Human Lispro (Insulin Lispro 100 Unit/Ml 3 Ml Vial) 0 unit SUBCUT QIDACHS [facility]; Protocol Last Admin: 05/16/22 11:57 Dose: 6 unit Documented By: ZIYAD Metoprolol Succinate (Metoprolol Succinate Er 50 Mg Tab.Er.24h) 50 mg PO DAILY [facility]; Protocol Last Admin: 05/16/22 07:54 Dose: 50 mg Documented By: JAYY Ondansetron HCl (Ondansetron Hcl 4 Mg/2 Ml Vial) 4 mg IVPUSH Q8H PRN PRN Reason: Nausea and Vomiting Pharmacy Consult (Consult Rx Vancomycin Dosing) 1 each MISCELLANE DAILY PRN PRN Reason: Consult order Pharmacy Consult (Consult Rx Vancomycin Dosing) 1 each MISCELLANE DAILY PRN PRN Reason: Consult order Pharmacy Consult (Consult Rx Perform Med Rec) 1 each MISCELLANE ONCE PRN PRN Reason: Consult order Sodium Chloride (0.9 % Sodium Chloride Flush 3 Ml Syringe) 3 ml IVFLUSH QSHIFT [facility] Last Admin: 05/16/22 15:39 Dose: 3 ml Documented By: ERIC Vitamin D (Cholecalciferol (Vitamin D3) 25 Mcg Tablet) 25 mcg PO DAILY [facility] Last Admin: 05/16/22 07:54 Dose: 25 mcg Documented By: JAYY Labs CBC & Chem 7: 05/15/22 05:36 05/16/22 05:55 Labs: Laboratory Results - last 24 hr 05/15/22 05/15/22 05/16/22 15:12 19:17 05:55 Anion Gap 17 Estim Creat Clear Calc 57.5 Estimated GFR 60 POC Glucose 255 H 256 H Random Glucose 230 H Calcium 9.4 Magnesium 1.5 L 05/16/22 05/16/22 06:52 11:00 Anion Gap Estim Creat Clear Calc Estimated GFR POC Glucose 213 H 237 H Random Glucose Calcium Magnesium Microbiology Microbiology Results: Microbiology 05/14/22 05:57 Blood Culture - Preliminary Blood - Subclavian No growth after 48 hours. 05/14/22 05:57 Blood Culture - Preliminary Blood - Subclavian No growth after 48 hours. Assessment and Plan (1) Diabetic foot ulcer: Status: Acute Plan 56yo F with DM2, PAD, chronic osteomyeltis, hx hypoNa, HLD, CKD3, chronic anemia presenting with sepsis from L foot wound communicating with bone concerning for osteomyelitis MSSA bacteremia DM foot ulcer/osteomyelitis/charcot foot PAD Two sets of BCx from 05/12 growing MSSA. repeat cultures negative seen by vascular - no intervention required TTE no vegetation continue cefazolin, seen by ID Picc line ordered , needs 6 weeks total of Cefazolin anemia, mixed CIRO/thalassemia trait. Stable s/p 2u PRBCs Heme/Onc consulted; [place] epo 07741 units HypoMg replete LUIS. resolved likely due to sepsis + anemia. holding lisinopril. Nephrology following. SVT terminated after adenosine in ED on day of admission and has not recurred. Cardiology consulted.? Started on metoprolol succinate.? TTE normal EF no vegetation Outpt ischemic workup HypoNa resolved chest pain/pressure suspect related to anemia, transfuse as above seen by cardiology atypical pain plan for outpatient stress test abdominal pain, history of cholelithiasis outpt US showing cholilithiasis, no acute cholecystitis, followed by GI as outpt Leg pain s/p angioplasty 4/6/[address] Vigil 05/14, good arterial flow, no need for other intervention at thi s time DM2 A1c 7.8.? SS, ADA diet HTN holding lisinopril but started metoprolol succinate and norvasc VTE ppx: resume UFH Attending Dr. Nava Full code In my clinical judgment, the patient requires continued hospitalization for the following reasons: IV ABX, surgical evaluation Quality Stroke Does the patient have a stroke diagnosis?: No VTE Prior VTE?: No VTE Risk Level:: Medical - moderate - high VTE Device Contraindication: Treatment Not Indicated VTE Drug Contraindication: N/A - Med Ordered
[2022-05-16 15:52] LABS: Glucose, Whole Blood 233 mg/dL (60-115)
--- NOTE | 2022-05-16 16:09 | PC.NURSE ---
Addendum entered by Sonja Elizabeth RN 05/16/22 17:49: offered available pain meds to patient but patient refused Original Note: patient c/o ribs pain and abdominal pain,requesting x-ray,no drsg orders for left foot ulcers,ZARIA Price made aware,both ulcers cleansed with NS and DSD was applied
[2022-05-16 18:57] LABS: Complement C3 170 mg/dL (83-193)
[2022-05-16 19:36] VITALS: BP 165/88; PULSE 89; RESP 18; TEMP 37; O2SAT 98
[2022-05-16 20:13] LABS: Glucose, Whole Blood 212 mg/dL (60-115)
[2022-05-16] MEDS: Lidocaine 4 % Patch ADH..PATCH 1 PATCH TRANSDERMA (20:24)
[2022-05-16] MEDS: HYDROmorphone HCl 1 MG/ML SYRINGE 0.5 MG IVPUSH (22:43)
[2022-05-16 23:29] VITALS: BP 136/60; PULSE 95; RESP 16; TEMP 36.6; O2SAT 93
[2022-05-17 02:42] VITALS: BP 144/80; PULSE 92; RESP 16; TEMP 36.6; O2SAT 94
[2022-05-17 06:54] LABS: Hematocrit 28.9 % (37.0-47.0); Hemoglobin 9.3 g/dl (12.0-16.0); Mean Corpuscular HGB Conc 32.2 g/dl (31.0-35.0); Mean Corpuscular Hemoglobin 22.1 pg (27.0-33.0); Mean Corpuscular Volume 68.6 fL (80.0-98.0); Mean Platelet Volume 8.8 fL (9.4-12.3); NRBC Pct Auto 0.1 /100WBC (0.0-0.2); Platelet Count 839 X10*3/uL (160-400); Red Blood Count 4.21 X10*6/uL (4.20-5.50); Red Cell Distribution Width 23.9 % (11.0-16.0); White Blood Count 16.2 X10*3/uL (4.8-10.8)
[2022-05-17 08:00] VITALS: BP 132/76; PULSE 90; RESP 16; TEMP 36.5; O2SAT 95
--- NOTE | 2022-05-17 10:27 | HO.PICC ---
PICC Line Insertion NPICC Diagnosis: [Osteomyelitis] Indication: [6 weeks antibx] Pertinent Labs: [Reviewed] Technique: Following informed consent including risks, benefits and alternatives and using sterile technique including cap and mask, sterile gown, glove and drape, the [RIGHT] arm was prepped and draped in the usual sterile fashion of full barrier technique with CHG. Following completion of [place] Protocol the skin and soft tissues were anesthetized with 1% Lidocaine plain. Using ultrasound guidance, [RIGHT BASILIC] vein access was obtained ON FIRST ATTEMPT BUT WAS UNABLE TO WIRE, DR HERNÁNDEZ ASSISTED WITH VENOUS ACCESS WITH RIGHT BRACHIAL. Over an 0.018 wire through peel-away sheath, a [4FR SINGLE LUMEN] PICC line was positioned. Catheter length is [40CM] internal length, [0CM] external length, for a total trimmed length of [40CM]. The procedure was performed in [RM 272]. Tip verification was performed by Anna Velez with Sherlock 3CG. Tip located in SVC. Ultrasound was used to document vein patency and for needle entry. A formal ultrasound picture and cardiac rhythm strip was recorded. [employer] has released the line for use and it is currently dressed with a StatLock, Tegaderm, and CHG disc. Verification has been performed for blood return and line patency. Arm Circumference: [33.5CM] Equipment: [[employer] POWER PICC SOLO] Catheter Type: [4FR PASV SINGLE LUMEN PICC] Lot #: [id number]
[2022-05-17] MEDS: Cholecalciferol (Vitamin D3) 25 MCG TABLET PO (10:50)
[2022-05-17] MEDS: Folic Acid 1 MG TABLET PO (10:50)
[2022-05-17] MEDS: amLODIPine Besylate 5 MG TABLET PO (10:50)
[2022-05-17 10:51] LABS: Glucose, Whole Blood 159 mg/dL (60-115)
[2022-05-17] MEDS: Metoprolol Succinate ER 50 MG TAB.ER.24H PO (10:52)
[2022-05-17] MEDS: ceFAZolin Sodium/Dextrose,Iso 2 GM/50 ML PIGGYBACK IV (10:53)
[2022-05-17] MEDS: Heparin Sodium,Porcine 5,000 UNIT/ML VIAL 5000 UNIT SUBCUT (10:53)
--- NOTE | 2022-05-17 11:15 | P.DS_ITS ---
DS: Providers Provider Date of Service: 05/17/22 Date of admission: 05/12/22 04:39 Date of discharge: 05/17/22 Primary care physician: [facility] Consults: 05/12/22 05:18 Consult to Cardiology Routine Consulting Provider: Marino Dale Reason for consultation: SVT Has provider been notified: No Consult to Vascular Surgery Routine Consulting Provider: Ton Vigil Reason for consultation: foot swelling, wound Has provider been notified: No 05/12/22 15:47 Consult to Infectious Diseases Routine Consulting Provider: Leonarda Castorena Reason for consultation: osteom DM2 05/12/22 15:50 Consult to Nephrology Routine Consulting Provider: [facility] Reason for consultation: luis 05/13/22 09:50 Consult to Hematology / Oncology Routine Consulting Provider: Abrahan Mattson Reason for consultation: severe anemia- procrit??? Attending physician on discharge: Bertram Nava Discharging clinician: Jacey Price DS: Diagnosis Discharge Diagnosis (1) Diabetic foot ulcer: Status: Acute (2) SVT (supraventricular tachycardia): Status: Acute DS: Summary Hospital Course Hospital Course: From H&P on day of admission This is a 56-year-old female with an extensive past medical history that includes CKD, HTN, history of osteomyelitis, peripheral vascular disease status post left anterior tibial plasty, microcytic hyperchromic anemia, IBS, history of cholelithiasis, diabetes, HLD, history of water intoxication syndrome, who presents to the hospital with complaints of left foot swelling, pain, as well as development of a blister and skin changes in her foot. Patient reports that she has a chronic wound at the base of her left foot that is being followed by wound care every 2 weeks with no significant changes or noted acute infection, but she developed an ulcer on top of her same foot, and noticed skin changes today therefore she was concerned and decided to come to the hospital.? Patient also reports that she had a balloon plasty in the same leg in October of this year.? Patient also has various other complaints including chest pain, that is sharp stabbing, radiating to the left arm, as well as to the back.? She reports shortness of breath with no cough, she has significant orthopnea and PND.? She reports left arm pain that is heavy.? The patient reports that she started having these pain about a week ago intermittent, at rest, with no relieving or exacerbating factors.? She states that the pain in the center of the chest is radiating to the back. She is also complaining of abdominal pain, reports that she has 5 different pains in her abdomen, worse in the right upper quadrant.? She is being followed by GI, had an ultrasound done the day of presentation, and she was told in the past that she had gallbladder stones. Patient is also complaining of shortness of breath, mostly with exertion, she also has orthopnea and PND. On arrival to the ED her vitals are significant for heart rate of 118, blood pressure 114/55, temp of 99.6 degrees, Labs are significant for 25.2, hemoglobin of 7.9 which is around her baseline from previous admissions, hematocrit 25.3, platelet count of 758, sodium of 132, chloride 90, anion gap of 23, BUN 22, creatinine of 1.59 with a baseline of 0.97, alk-phos of 280, Chest CT shows no acute findings identified mild upper lobe predominant emphysema, she has few scattered lung nodules measuring up to 3 mm, nonspecific Foot x-ray shows soft tissue swelling throughout the foot as well as focus of plantar soft tissue gas no 9 mint of the 2nd 3rd and 4th MTP joints While in the ED patient went into SVT, with a heart rate into the 180s, she received 6 mg of adenosine, converted to sinus rhythm with a heart rate of 105.? She states that she was sleeping when this occurred, she was asymptomatic. Hospital course by problem: Sepsis/MSSA bacteremia secondary to DM foot ulcer/osteomyelitis/charcot foot. Two sets of BCx from 05/12 growing MSSA. repeat cultures negative. seen by vascular surgery no intervention required. TTE no vegetation Antibiotics were narrowed to cefazolin, seen by ID, recommended 6 weeks of IV cefazolin. PICC line was placed 05/17, infusion teaching was competed and she will be discharged home with [facility] for assistnace in managing IV antibiotics/dr puri changes. anemia, mixed CIRO/thalassemia trait. Stable s/p 2u PRBCs. Heme/Onc consulted; start epo 74515 units. H/ H has remained stable. Plan to call Oncology office to arrange outpatient procrit injections LUIS. resolved. likely due to sepsis + anemia.? lisinopril was discontinued. She was followed by Nephrology, renal function has improved. SVT. terminated after adenosine in ED on day of admission and has not recurred.? Cardiology consulted, ?Started on metoprolol succinate.? Cardiology recommended outpt ischemic workup Hyponatremia. resolved chest pain/pressure. seen by cardiology. atypical pain. Cardiac enzymes flat. plan for outpatient stress test abdominal pain, history of cholelithiasis. outpt US showing cholilithiasis, no acute cholecystitis, followed by GI as outpt. She has been able to tolerate 100% of her diet the past several days. Leg pain s/p angioplasty 10/11/21. seen by Dr. Vigil of vascular surgery 05/14, good arterial flow, no need for other intervention at this time HTN Started on metoprolol, Norvasc with good effect. Lisinopril has been discontin ued Time Spent with Patient Time attestation: Total time spent providing and/or coordinating discharge services: Discharge coordination time: Greater than 30 minutes Quality: Safe Use of Opioids Does Pt have an Active Cancer Diagnosis on the Problem List?: No Quality: Stroke Does the patient have a stroke diagnosis?: No Physical Exam Vital Signs: Vital Signs: Last Vital Signs Temp 97.8 F 05/17/22 02:42 Pulse 92 05/17/22 02:42 Resp 16 05/17/22 02:42 BP 144/80 H 05/17/22 02:42 Pulse Ox 94 05/17/22 02:42 O2 Del Method 05/17/22 02:42 BMI result Body Mass Index 32.0 Const: General: comfortable, no acute distress, alert and awake Nutritional Appearance: overweight Orientation/consciousness: patient oriented x3 Resp: Effort & Inspection: normal respiratory effort and able to speak in complete sentences Auscultation: clear to auscultation bilaterally Cardio: Rate: regular rate Heart sounds: S1 normal heart sound present and S2 normal heart sound present GI: Inspection: No distended Palpation (GI): Soft to palpation and nontender Skin: Other: Neuro: General: patient oriented x3 DS: Data Data Completed and Pending Completed studies during hospitalization [Text1]: Procedures Insertion of Infusion Device into Superior Vena Cava, Percutaneous Approach (07/09/21) Labs on day of discharge: Laboratory Results - last 24 hr 05/14/22 05/16/22 05/16/22 05:57 11:00 15:30 WBC RBC Hgb Hct MCV MCH MCHC RDW Plt Count MPV Absolute Nucleated RBC Nucleated RBC % (auto) POC Glucose 237 H 233 H Complement C3 170 Complement C4 29 05/16/22 05/17/22 05/17/22 20:00 06:04 10:47 WBC 16.2 H RBC 4.21 Hgb 9.3 L Hct 28.9 L MCV 68.6 L MCH 22.1 L MCHC 32.2 RDW 23.9 H Plt Count 839 H MPV 8.8 L Absolute Nucleated RBC 0.020 H Nucleated RBC % (auto) 0.1 POC Glucose 212 H 159 H Complement C3 Complement C4 Preliminary micro results at discharge 05/14/22 05:57 Blood Culture - Preliminary Blood - Subclavian No growth after 48 hours. 05/14/22 05:57 Blood Culture - Preliminary Blood - Subclavian No growth after 48 hours. 05/12/22 21:14 Blood Culture - Preliminary Blood - Venous No growth after 48 hours. Discharge Plan Discharge Anticipated Discharge Date/Time: 05/17/22 10:32 Patient Disposition: Home Health Service Discharge Diagnosis: sepsis secondary to Diabetic foot ulcer/osteomyelitis MSSA bacteremia Referrals: [facility] [Other] - 1 Week [facility] [Outside] - 1 Week [facility] [Primary Care Provider] - 1 Week Leonarda Castorena MD [Physician] - 1 Week Fede Martínez MD [Physician] - 1 Week Abrahan Mattson MD [Physician] - 1 Week Discharge Medications: New metoprolol succinate 50 mg Tablet Extended Release 24 Hr 50 mg PO DAILY Qty: 30 0RF Protocol: Hold for SBP/HR < HOLD for SBP < : 90 HOLD for HR < : 60 amlodipine 5 mg Tablet 5 mg PO DAILY Qty: 30 0RF Protocol: Hold for SBP< HOLD for SBP < : 90 magnesium oxide 400 mg (241.3 mg magnesium) Tablet 400 mg PO BIDPC 30 Days Qty: 60 0RF Continued folic acid 1 mg Tablet 1 mg PO DAILY Qty: 90 3RF lidocaine 5 % adhesive patch,medicated 1 patch topical DAILY Qty: 15 0RF Rx Instructions: leave on most painful area (back) for up to 12 hrs acetaminophen 500 mg tablet 2 tab PO Q8H PRN (Reason: pain) lidocaine-prilocaine 2.5-2.5 % cream 1 appl topical DAILY PRN (Reason: pain) Rx Instructions: apply to knee aspirin 81 mg tablet,delayed release (DR/EC) 1 tab PO DAILY metformin 1,000 mg tablet 1 tab PO BID cholecalciferol (vitamin D3) 25 mcg (1,000 unit) tablet 1 tab PO DAILY bacitracin 500 unit/gram ointment 1 appl topical TID Discontinued lisinopril 20 mg tablet 20 mg PO DAILY Qty: 90 0RF No Action (DME) lancets [TRUEplus Lancets] 33 gauge misc See Rx Instructions topical .MEDSUPPLY Qty: 100 Rx Instructions: As directed (DME) pen needle, diabetic [UltiCare Pen Needle] 31 gauge x 5/16 needle See Rx Instructions subcut .MEDSUPPLY Qty: 1200 Rx Instructions: As directed (DME) FreeStyle Lite Strips Strip See Rx Instructions Not Applicable TID Qty: 10 Rx Instructions: As directed Discharge Orders: Discharge Order (Routine); Ordered 05/17/22 Ordered By: Jacey Price Activity on Discharge: As tolerated Stand Alone Forms: Patient Portal Discharge page Other Ambulatory Orders: Magnesium (Routine) Timeframe: [id number] Facility: [facility] - Location: Laboratory Ordered By: Jacey Price Care Plan Goals: see below Health Concerns: sepsis/MSSA bacteremia/ osteomyelitis abdominal pain Plan of Treatment: Complete 6 week course of IV antibiotics for treatment of osteomyelitis - end date 06/26/22 Call hematology office to schedule outpatient procrit injections for anemia Call to schedule follow up appointment at the wound care clinic for close monitoring of foot wound Call to schedule follow up appointment with cardiology for possible outpatient stress test call to schedule follow-up appointment with PCP Please check magnesium in am with VNA and continue supplementation as prescribed. received po and IV supplementation prior to d/c. repeat magnesium also ordered for Saturday if levels still low Assessment: see discharge summary Discharge Date/Time: 05/17/22 15:15
--- NOTE | 2022-05-17 11:16 | MHC.CM.PN ---
Addendum entered by Andria Mann 05/17/22 15:03: CM INFORMED PT WILL NEED A MAG LAB DRAWN TOMORROW [facility] NOTIFIED VIA [employer] Addendum entered by Andria Mann 05/17/22 14:30: [facility] HAS ACCEPTED REFERRAL AND WILL SEE PT THIS AFTERNOON AT 1600 HOURS [facility] HAS CONFIRMED THEY WILL DELIVER MEDS TODAY TRANSPORT ARRANGED [facility]IA [employer] [facility] HAD NO TRANSPORT AVAILABLE Original Note: PT WILL DC HOME AND NEEDS IV ABX PREVIOUS CM REFERRED TO [facility] PICC REPORT SENT TO [facility] AWAITING CONFIRMATION OF DELIVERY TIME [facility] HAS NOT YET ACCEPTED PT DUE TO HISTORY OF PT REFUSING SERVICES FOLLOWING PREVIOUS DC'S. AWAITING DETERMINATION
[2022-05-17] MEDS: Insulin Glargine,Hum.rec.anlog 100 UNIT/ML 10 ML VIAL 25 UNIT SUBCUT (11:17)
[2022-05-17] MEDS: Insulin Lispro 100 UNIT/ML 3 ML VIAL SUBCUT (11:17)
--- NOTE | 2022-05-17 11:25 | P.F2F_ITS ---
Service Date Service Date: 05/17/22 Encounter Date of encounter: 05/17/22 Reasons for Services Signs and symptoms assessed: Needs detention for assistance in administering IV medication Reason for detention: wound care (daily dressing changed with alginate and wrap in dry dressings ) and medication management MD Overseeing Care: Rosalind Cardoso Homebound: Leaving the home is medically contraindicated at this time without the asist of a device and/or another person due th the listed conditions above and below. Reason homebound: weakness related to hospital stay Certification: Based on the above findings, I certify that this patient is confined to the home and needs intermittent detention care, physical therapy and/or speech therapy, or continues to need occupational therapy. The patient is under my care, and I have initiated the establishment of the plan of care. The patient will be followed by a physician who will periodically review the plan of care.
[2022-05-17 12:00] VITALS: BP 132/76; PULSE 95; RESP 16; TEMP 36.4; O2SAT 95
[2022-05-17 12:15] LABS: Magnesium 1.4 mg/dL (1.6-2.6)
[2022-05-17] MEDS: Magnesium Oxide 400 MG TABLET PO (12:41)
[2022-05-17] MEDS: Magnesium Sulfate/D5W 1 GM/100 ML PIGGYBACK IV (12:41)
[2022-05-17] MEDS: 0.9 % Sodium Chloride Flush 10 ML SYRINGE 5 ML IVFLUSH (12:45)
== END 2022-05-17 15:15 | disposition home health service (06) | DRG 872 ==
LOC: HO.ED 05-12 03:07 → HO.EDOVER 05-12 04:42 → HO.S3 05-13 11:57
PROVIDERS: Family Medicine; Nurse Practitioner Acute Care; Student in an Organized Health Care Education/Training Program; Admitting Provider Internal Medicine; Emergency Provider Emergency Medicine; Visit Provider Physician Assistant Medical
DX: A41.01 Sepsis due to Methicillin susceptible Staphylococcus aureus (principal); N17.9 Acute kidney failure, unspecified; L02.612 Cutaneous abscess of left foot; L97.429 Non-pressure chronic ulcer of left heel and midfoot with unspecified severity; N39.0 Urinary tract infection, site not specified; I47.1 Supraventricular tachycardia; E87.1 Hypo-osmolality and hyponatremia; M86.672 Other chronic osteomyelitis, left ankle and foot; I12.9 Hypertensive chronic kidney disease with stage 1 through stage 4 chronic kidney disease, or unspecified chronic kidney disease; E11.42 Type 2 diabetes mellitus with diabetic polyneuropathy; N18.31 Chronic kidney disease, stage 3a; E11.51 Type 2 diabetes mellitus with diabetic peripheral angiopathy without gangrene; J43.9 Emphysema, unspecified; D50.9 Iron deficiency anemia, unspecified; E11.621 Type 2 diabetes mellitus with foot ulcer; D63.1 Anemia in chronic kidney disease; I70.244 Atherosclerosis of native arteries of left leg with ulceration of heel and midfoot; D56.3 Thalassemia minor; K80.20 Calculus of gallbladder without cholecystitis without obstruction; R07.9 Chest pain, unspecified; E11.69 Type 2 diabetes mellitus with other specified complication; M14.672 Charcot's joint, left ankle and foot; R91.8 Other nonspecific abnormal finding of lung field; E11.22 Type 2 diabetes mellitus with diabetic chronic kidney disease; E83.42 Hypomagnesemia; Z20.822 Contact with and (suspected) exposure to COVID-19; Z79.82 Long term (current) use of aspirin; Z79.84 Long term (current) use of oral hypoglycemic drugs; Z79.899 Other long term (current) drug therapy
CPT/HCPCS: 0241U; 36415; 36573; 71250; 73630; 73720; 80048; 80053; 80202; 81001; 82272; 82728; 82947; 83036; 83540; 83605; 83735; 83880; 84300; 84484; 85025; 85027; 85652; 86140; 86160; 86850; 86900; 86901; 86923; 87040; 87077; 87086; 87088; 87147; 87186; 87205; 93005; 93306; 93356; 93926; 99285; A9585; C1751; J0153; J0690; J0692; J0885; J1170; J2543; J3370; J3475; P9016; Q9957

== ENCOUNTER 2022-05-18 13:04 | Outpatient (REF) | payer OTHER, SELFPAY ==
--- NOTE | ~2022-05-18 | MM_ITS ---
EXAMINATION: MM DIAGNOSTIC DIGITAL BREAST TOMOSYNTHESIS, RIGHT CLINICAL INFORMATION: Six-month follow-up right breast density COMPARISON: Mammography: January 16, 2022 and studies dating back to December 06, 2015 TECHNIQUE: Digital breast tomosynthesis is performed in both the craniocaudal and mediolateral oblique views along with computer-aided detection (CAD). Synthesized 2D images are generated from the tomosynthesis. FINDINGS: There are scattered areas of fibroglandular density (ACR BI-RADS breast composition Category b). There are no new significant masses, abnormal calcifications, or other abnormalities. Producing noted density containing fat and likely related to fat necrosis is not as evident on today's study with faint density remaining. Recommend 6 month follow-up bilateral mammography. Results are provided to the patient at time of visit by the technologist. MM/MM tomosynthesis diagnostic RT IMPRESSION: Lesions about the upper outer aspect of the right breast likely representing fat necrosis seems less conspicuous. Recommend 6 month bilateral mammography. ASSESSMENT: BI-RADS 3: Probably Benign RECOMMENDATION: Diagnostic mammography in 6 months. This patient's information was entered into a reminder system with a target due date for their next mammogram.
== END 2022-05-18 13:05 | disposition home or self-care (01) ==
LOC: HO.MAMMO 13:04
PROVIDERS: Visit Provider Registered Nurse
DX: R92.2 Inconclusive mammogram (principal)
CPT/HCPCS: 77061; 77065

== ENCOUNTER 2022-05-18 16:04 | Outpatient (REF) | payer OTHER, SELFPAY ==
[2022-05-18 16:43] LABS: Alanine Aminotransferase 13 U/L (0-31); Albumin Level 3.2 g/dL (3.5-5.0); Alkaline Phosphatase 392 U/L (39-117); Anion Gap 24 (12-20); Aspartate Amino Transferase 26 U/L (5-31); Bilirubin Total 0.4 mg/dL (0.0-1.0); Blood Urea Nitrogen 23 mg/dL (9-16); Calcium 9.5 mg/dL (8.4-10.2); Carbon Dioxide 25 mmol/L (22-29); Chloride 94 mmol/L (96-108); Estimated Glomerular Filt Rate 55; Glucose Random 114 mg/dL (60-115); Potassium 5.3 mmol/L (3.3-5.1); Sodium 138 mmol/L (135-145); Total Protein 7.9 g/dL (6.5-8.0)
== END 2022-05-18 16:05 | disposition home or self-care (01) ==
LOC: HO.LNP 16:04
PROVIDERS: Visit Provider Registered Nurse
DX: M86.9 Osteomyelitis, unspecified (principal)
CPT/HCPCS: 80053

== ENCOUNTER 2022-05-29 14:30 | Outpatient (REF) | payer OTHER, SELFPAY ==
[2022-05-29 14:34] LABS: MANUAL DIFF FLAG NO
[2022-05-29 14:39] LABS: Basophils Absolute Auto 0.1 X10*3/uL (0.0-0.2); Basophils Percent Auto 0.6 % (0-2); Eosinophils Absolute Auto 0.3 X10*3/uL (0.0-0.4); Hematocrit 29.3 % (37.0-47.0); Hemoglobin 8.7 g/dl (12.0-16.0); Imm Gran Abs Auto 0.03 X10*3/uL (0.00-0.03); Imm Gran Pct Auto 0.3 % (0.0-0.4); Lymphocytes Absolute Auto 2.1 X10*3/uL (1.2-4.9); Mean Corpuscular HGB Conc 29.7 g/dl (31.0-35.0); Mean Corpuscular Hemoglobin 20.8 pg (27.0-33.0); Mean Corpuscular Volume 70.1 fL (80.0-98.0); Mean Platelet Volume 9.3 fL (9.4-12.3); Monocytes Absolute Auto 0.8 X10*3/uL (0.1-1.2); Monocytes Percent Auto 8.4 % (2-11); Neutrophils Absolute Auto 5.8 x10*3/uL (2.0-8.3); Neutrophils Percent Auto 64.7 % (45-73); Platelet Count 700 X10*3/uL (160-400); Red Blood Count 4.18 X10*6/uL (4.20-5.50); Red Cell Distribution Width 22.7 % (11.0-16.0); White Blood Count 8.9 X10*3/uL (4.8-10.8)
[2022-05-29 15:38] LABS: Alanine Aminotransferase < 6 U/L (0-31); Albumin Level 3.2 g/dL (3.5-5.0); Alkaline Phosphatase 228 U/L (39-117); Anion Gap 15 (12-20); Aspartate Amino Transferase 9 U/L (5-31); Bilirubin Total 0.3 mg/dL (0.0-1.0); Blood Urea Nitrogen 21 mg/dL (9-16); Calcium 9.4 mg/dL (8.4-10.2); Carbon Dioxide 29 mmol/L (22-29); Chloride 95 mmol/L (96-108); Estimated Glomerular Filt Rate 54; Glucose Random 244 mg/dL (60-115); Potassium 5.2 mmol/L (3.3-5.1); Sodium 134 mmol/L (135-145); Total Protein 7.7 g/dL (6.5-8.0)
== END 2022-05-29 14:31 | disposition home or self-care (01) ==
LOC: HO.LNP 14:30
PROVIDERS: Visit Provider Internal Medicine
DX: M86.9 Osteomyelitis, unspecified (principal)
CPT/HCPCS: 80053; 85025

== ENCOUNTER 2022-06-04 17:17 | Outpatient (REF) | payer OTHER, SELFPAY ==
[2022-06-04 17:21] LABS: MANUAL DIFF FLAG NO
[2022-06-04 17:35] LABS: Basophils Absolute Auto 0.1 X10*3/uL (0.0-0.2); Basophils Percent Auto 0.7 % (0-2); Eosinophils Absolute Auto 0.4 X10*3/uL (0.0-0.4); Eosinophils Percent Auto 2.9 % (0-4); Hematocrit 29.5 % (37.0-47.0); Hemoglobin 8.9 g/dl (12.0-16.0); Imm Gran Abs Auto 0.06 X10*3/uL (0.00-0.03); Imm Gran Pct Auto 0.5 % (0.0-0.4); Lymphocytes Absolute Auto 2.4 X10*3/uL (1.2-4.9); Lymphocytes Percent Auto 18.8 % (20-40); Mean Corpuscular HGB Conc 30.2 g/dl (31.0-35.0); Mean Corpuscular Hemoglobin 20.9 pg (27.0-33.0); Mean Corpuscular Volume 69.4 fL (80.0-98.0); Mean Platelet Volume 9.7 fL (9.4-12.3); Monocytes Percent Auto 8.1 % (2-11); NRBC Pct Auto 0.4 /100WBC (0.0-0.2); Neutrophils Absolute Auto 8.7 x10*3/uL (2.0-8.3); Platelet Count 757 X10*3/uL (160-400); Red Blood Count 4.25 X10*6/uL (4.20-5.50); Red Cell Distribution Width 22.7 % (11.0-16.0); White Blood Count 12.6 X10*3/uL (4.8-10.8)
[2022-06-04 18:38] LABS: Alanine Aminotransferase < 6 U/L (0-31); Albumin Level 3.2 g/dL (3.5-5.0); Alkaline Phosphatase 220 U/L (39-117); Anion Gap 17 (12-20); Aspartate Amino Transferase 12 U/L (5-31); Bilirubin Total 0.3 mg/dL (0.0-1.0); Blood Urea Nitrogen 18 mg/dL (9-16); Calcium 9.4 mg/dL (8.4-10.2); Carbon Dioxide 29 mmol/L (22-29); Chloride 93 mmol/L (96-108); Estimated Glomerular Filt Rate > 60; Glucose Random 205 mg/dL (60-115); Potassium 4.5 mmol/L (3.3-5.1); Sodium 134 mmol/L (135-145); Total Protein 7.7 g/dL (6.5-8.0)
== END 2022-06-04 17:18 | disposition home or self-care (01) ==
LOC: HO.LNP 17:17
PROVIDERS: Visit Provider Internal Medicine
DX: E11.621 Type 2 diabetes mellitus with foot ulcer (principal)
CPT/HCPCS: 80053; 85025

== ENCOUNTER 2022-06-11 15:49 | Outpatient (REF) | payer OTHER, SELFPAY ==
[2022-06-11 15:55] LABS: MANUAL DIFF FLAG NO
[2022-06-11 16:01] LABS: Basophils Absolute Auto 0.1 X10*3/uL (0.0-0.2); Basophils Percent Auto 0.9 % (0-2); Eosinophils Absolute Auto 0.3 X10*3/uL (0.0-0.4); Hematocrit 31.2 % (37.0-47.0); Hemoglobin 9.4 g/dl (12.0-16.0); Imm Gran Abs Auto 0.07 X10*3/uL (0.00-0.03); Imm Gran Pct Auto 0.7 % (0.0-0.4); Lymphocytes Absolute Auto 2.2 X10*3/uL (1.2-4.9); Lymphocytes Percent Auto 22.3 % (20-40); Mean Corpuscular HGB Conc 30.1 g/dl (31.0-35.0); Mean Corpuscular Hemoglobin 20.4 pg (27.0-33.0); Mean Corpuscular Volume 67.8 fL (80.0-98.0); Mean Platelet Volume 8.9 fL (9.4-12.3); Monocytes Absolute Auto 0.8 X10*3/uL (0.1-1.2); Monocytes Percent Auto 8.4 % (2-11); Neutrophils Absolute Auto 6.5 x10*3/uL (2.0-8.3); Neutrophils Percent Auto 64.7 % (45-73); Platelet Count 747 X10*3/uL (160-400); Red Cell Distribution Width 21.3 % (11.0-16.0)
[2022-06-11 17:33] LABS: Alanine Aminotransferase < 6 U/L (0-31); Albumin Level 3.4 g/dL (3.5-5.0); Alkaline Phosphatase 221 U/L (39-117); Anion Gap 17 (12-20); Aspartate Amino Transferase 11 U/L (5-31); Bilirubin Total 0.3 mg/dL (0.0-1.0); Blood Urea Nitrogen 23 mg/dL (9-16); Calcium 9.5 mg/dL (8.4-10.2); Carbon Dioxide 29 mmol/L (22-29); Chloride 95 mmol/L (96-108); Estimated Glomerular Filt Rate 57; Glucose Random 170 mg/dL (60-115); Potassium 5.1 mmol/L (3.3-5.1); Sodium 136 mmol/L (135-145); Total Protein 7.8 g/dL (6.5-8.0)
== END 2022-06-11 15:50 | disposition home or self-care (01) ==
LOC: HO.LNP 15:49
PROVIDERS: Visit Provider Internal Medicine
DX: E11.621 Type 2 diabetes mellitus with foot ulcer (principal)
CPT/HCPCS: 80053; 85025

== ENCOUNTER → 2022-06-13 13:34 | Outpatient (BNVA) | payer OTHER, SELFPAY | PROVIDERS: Visit Provider Internal Medicine | DX: E11.621 Type 2 diabetes mellitus with foot ulcer (principal); L97.509 Non-pressure chronic ulcer of other part of unspecified foot with unspecified severity | CPT/HCPCS: 99212 ==

== ENCOUNTER 2022-06-25 15:00 | Outpatient (REF) | payer OTHER, SELFPAY ==
[2022-06-25 15:05] LABS: MANUAL DIFF FLAG NO
[2022-06-25 15:09] LABS: Basophils Absolute Auto 0.1 X10*3/uL (0.0-0.2); Basophils Percent Auto 0.9 % (0-2); Eosinophils Absolute Auto 0.4 X10*3/uL (0.0-0.4); Eosinophils Percent Auto 4.3 % (0-4); Hematocrit 31.3 % (37.0-47.0); Hemoglobin 9.2 g/dl (12.0-16.0); Imm Gran Abs Auto 0.02 X10*3/uL (0.00-0.03); Imm Gran Pct Auto 0.2 % (0.0-0.4); Lymphocytes Absolute Auto 2.5 X10*3/uL (1.2-4.9); Lymphocytes Percent Auto 28.9 % (20-40); Mean Corpuscular HGB Conc 29.4 g/dl (31.0-35.0); Mean Corpuscular Hemoglobin 19.6 pg (27.0-33.0); Mean Corpuscular Volume 66.6 fL (80.0-98.0); Mean Platelet Volume 9.2 fL (9.4-12.3); Monocytes Absolute Auto 0.6 X10*3/uL (0.1-1.2); Monocytes Percent Auto 7.3 % (2-11); Neutrophils Percent Auto 58.4 % (45-73); Platelet Count 535 X10*3/uL (160-400); Red Cell Distribution Width 20.6 % (11.0-16.0); White Blood Count 8.5 X10*3/uL (4.8-10.8)
[2022-06-25 16:17] LABS: Blood Urea Nitrogen 15 mg/dL (9-16); Estimated Glomerular Filt Rate > 60
== END 2022-06-25 15:01 | disposition home or self-care (01) ==
LOC: HO.LNP 15:00
PROVIDERS: Visit Provider Physician Assistant Medical
DX: E11.621 Type 2 diabetes mellitus with foot ulcer (principal)
CPT/HCPCS: 82565; 84520; 85025

== ENCOUNTER → 2022-06-27 13:12 | Outpatient (BNVA) | payer OTHER, SELFPAY | PROVIDERS: Visit Provider Internal Medicine | DX: E11.621 Type 2 diabetes mellitus with foot ulcer (principal); L97.509 Non-pressure chronic ulcer of other part of unspecified foot with unspecified severity; Z86.19 Personal history of other infectious and parasitic diseases | CPT/HCPCS: 99212 ==

== ENCOUNTER → 2022-07-11 15:06 | Outpatient (BNVA) | payer OTHER, SELFPAY | PROVIDERS: Visit Provider Nurse Practitioner Family | DX: I47.1 Supraventricular tachycardia (principal); R07.9 Chest pain, unspecified; E11.9 Type 2 diabetes mellitus without complications; D64.9 Anemia, unspecified; Z79.899 Other long term (current) drug therapy | CPT/HCPCS: 99212 ==

== ENCOUNTER → 2022-07-25 13:22 | Outpatient (BNVA) | payer OTHER, SELFPAY | PROVIDERS: PCP Registered Nurse; Visit Provider Internal Medicine | DX: E11.621 Type 2 diabetes mellitus with foot ulcer (principal); L97.509 Non-pressure chronic ulcer of other part of unspecified foot with unspecified severity | CPT/HCPCS: 99212 ==

== ENCOUNTER → 2022-07-27 08:17 | Outpatient (REF) | payer OTHER, SELFPAY ==
--- NOTE | ~2022-07-27 | NM_ITS ---
Myocardial perfusion study Indication: Chest pain to evaluate for myocardial ischemia Technique: The patient was brought in for a Lexiscan perfusion study on 07/27/2021. Patient performed low-level exercise and was injected 0.4 mg of Lexiscan intravenously. Within a minute of injection, 30 mCi of sestamibi was given intravenously. Images were obtained using the SPECT gamma camera interlaced with the gating device. Images were obtained in supine position. Resting perfusion study was performed on 07/30/2021. Patient was administered 30 mCi of sestamibi intravenously at rest. Images were then obtained in supine position. Images obtained with and without CT attenuation. Total DLP 90 mGy-cm Images were processed with the software and compared side to side in short axis, horizontal long axis and vertical long axis views. Findings: Both stress and rest images were suboptimal due to intense uptake interfering with inferior wall uptake. Attenuated corrected images were of nondiagnostic quality The stress perfusion study showed on non attenuated images there is some thinning of the distal lateral as well as mildly reduced uptake in the basal lateral wall of the LV myocardium as well as mildly reduced uptake in the apex of the LV myocardium. Attenuated corrected images are of poor quality. The gated study shows normal LV systolic function with calculated LVEF of 50%. LV cavity is normal in size. The gated study shows normal systolic wall thickening and contraction of segments. Resting study shows nontender images show improved uptake in the apex of the LV myocardium. Also mildly improved uptake in the basal lateral wall of the LV myocardium. Attenuated corrected images NONDIAGNOSTIC quality. Gating at rest reveals normal systolic wall motion with ejection fraction at 52%. The findings are consistent with equivocal for possible apical and basal lateral wall ischemia although confidence of interpretation is low given the quality of study due to subdiaphragmatic uptake. AL/AL cardiolite stress test Impression: 1. Myocardial perfusion imaging study shows equivocal for apical basal lateral hernia 2. Gated LVEF is 50% 3. Transient ischemic dilatation not present EKG is Nondiagnostic for ischemia
--- NOTE | 2022-07-27 08:19 | CA_ITS ---
Acquisition Time: 2022-07-27 08:35:56 Total Exercise Time: 00:02:00 Test Indications: CP Medications: SEE CHART Protocol: LEXISCAN Max HR: 106 BPM 65% of Pred: 161 BPM Max BP: 118/060 mmHG Max Work Load: 1.0 METS Pharmacological stress test with Lexiscan injection, while sitting and kicking her legs, without anginal symptoms, with isolated PACs, with normotensive response to injection, with nondiagnostic EKG for ischemia. In recovery she reported nausea and was treated with Aminophylline 75mg IVP to reverse Lexsican with resolution of symptom. Nuclear images pending. Test reviewed with Dr Middleton. Referred By: Madeline Yo Overread By: MADELINE YO
--- NOTE | 2022-07-27 08:19 | HM_ITS ---
Conclusion: 1. Patient was monitored for total period of 2 days and 22 hours. 2. Baseline was normal sinus rhythm with average heart rate of 87 beats per minute 3. Total of 6775 PACs accounting for 2.25% total beats account for frequent PACs 4. Nine SVT events noted with fastest at 167 beats per minute and longest at 6 beats per minute 5. No significant pauses or bradycardia noted 6. No patient reported symptoms MTDD
== END ==
LOC: HO.CARD 08:17
PROVIDERS: PCP Registered Nurse; Visit Provider Nurse Practitioner Family
DX: R07.9 Chest pain, unspecified (principal); I47.1 Supraventricular tachycardia
CPT/HCPCS: 78452; 93017; 93242; A9500; J0280; J2785

== ENCOUNTER 2022-08-13 10:03 | Outpatient (REF) | payer OTHER, SELFPAY ==
--- NOTE | ~2022-08-13 | US_ITS ---
EXAMINATION: NONINVASIVE ANKLE BRACHIAL INDICES OF BOTH LOWER EXTREMITIES CLINICAL INFORMATION: Peripheral vascular disease. COMPARISON: None. TECHNIQUE: Ankle-brachial indices were calculated bilaterally and PVR tracings were performed at the level of the ankles. This study was performed at rest only. FINDINGS: a) AT REST: 1. The ankle-brachial indices are: Right 0.96 and left 0.68. >0.97-1.25 = normal - no significant arterial disease. 0.75-0.96 = mild peripheral arterial disease. 0.5-0.74 = moderate peripheral arterial disease. <0.50 = severe peripheral arterial disease. 2. PVR waveforms at ankle: Right diminished amplitude. Left unremarkable. US/US MANUEL complete IMPRESSION: 1. Findings suggest mild right peripheral arterial disease. 2. Findings consistent with moderate left peripheral arterial disease.
--- NOTE | ~2022-08-13 | US_ITS ---
EXAMINATION: COLOR-FLOW DUPLEX IMAGING OF THE BILATERAL LOWER EXTREMITY ARTERIAL SYSTEM. VELOCITY MEASUREMENTS THROUGHOUT THE FEMORAL ARTERIES. CLINICAL INFORMATION: This is a 57 year-old male with peripheral arterial disease. RIGHT FEMORAL RUNOFF VELOCITIES: The right common femoral artery peak systolic velocity is 62 cm/s. The waveform is triphasic. The right profunda femoral artery peak systolic velocity is 94 cm/s. The waveform is triphasic. The right proximal superficial femoral artery peak systolic velocity is 121 cm/s. The waveform is triphasic. The right mid superficial femoral artery peak systolic velocity is 185 cm/s. The waveform is triphasic. The right distal superficial femoral artery peak systolic velocity is 234 cm/s. The waveform is triphasic. The right popliteal artery peak systolic velocity is 82 cm/s. The waveform is triphasic. The right posterior tibial artery velocity peak systolic velocities 12 cm/s. The waveform is monophasic. The right peroneal artery peak systolic velocity is 113 cm/s. The waveform is triphasic. LEFT FEMORAL RUNOFF VELOCITIES: The left common femoral artery peak systolic velocity is 264 cm/s. The waveform is triphasic. The left profunda femoral artery peak systolic velocities is 128 cm/s. The waveform is triphasic. The left proximal superficial femoral artery peak systolic velocity is 179 centimeters per second. The waveform is triphasic. The left mid superficial femoral artery peak systolic velocity is 224 cm/s. The waveform is biphasic. The left distal superficial femoral artery peak systolic velocity is 241 cm/s. The waveform is biphasic. The left popliteal artery peak systolic velocity is 133 cm/s. The waveform is biphasic. The left posterior tibial artery peak systolic velocity is 27 cm/s. The waveform is monophasic. The leftperoneal artery peak systolic velocity is 34 cm/s. The waveform is monophasic. US/US arterial duplex LE BI IMPRESSION: 1. There is hemodynamically significant femoropopliteal and infrapopliteal arterial disease. 2. There is hemodynamically significant significant left femoral and infrapopliteal arterial disease.
== END 2022-08-13 10:04 | disposition home or self-care (01) ==
LOC: HO.US 10:03
PROVIDERS: PCP Registered Nurse; Visit Provider Surgery Vascular Surgery
DX: I70.213 Atherosclerosis of native arteries of extremities with intermittent claudication, bilateral legs (principal)
CPT/HCPCS: 93923; 93925

== ENCOUNTER → 2022-08-15 13:38 | Outpatient (BNVA) | payer OTHER, SELFPAY | PROVIDERS: PCP Registered Nurse; Visit Provider Internal Medicine | DX: E11.610 Type 2 diabetes mellitus with diabetic neuropathic arthropathy (principal); L03.90 Cellulitis, unspecified | CPT/HCPCS: 99212 ==

== ENCOUNTER 2022-08-15 15:40 | Inpatient (IN) | payer OTHER, SELFPAY ==
[2022-08-15] VITALS (8 sets, daily range): BP systolic 108–141; BP diastolic 56–73; PULSE 85–115; RESP 15–21; TEMP 36.2–39.1; O2SAT 96–98; BMI 34.3
--- NOTE | ~2022-08-15 | MR_ITS ---
EXAMINATION: MR LUMBAR SPINE WITHOUT AND WITH CONTRAST CLINICAL INFORMATION: Rule out discitis. COMPARISON: None TECHNIQUE: MRI of the lumbar spine was obtained using routine sequences without and with intravenous contrast. A total of 8 mL Gadavist was intravenously administered. FINDINGS: The lumbar vertebral bodies maintain normal heights and alignment. Mild degree of scoliotic curvature is noted. There is no abnormal signal within the disc spaces. The disc spaces appear well preserved. There is increased fluid within the left-sided L4-L5 facet joint with some periarticular edema and enhancement seen in this region. The distal spinal cord appears normal. The conus medullaris terminates normally at the T12-L1 level. There is no abnormal cauda equina nerve root enhancement. The psoas muscles appear symmetric. The imaged intra-abdominal and intrapelvic contents are within normal limits. SPINAL LEVELS: L1-L2: No posterior disc abnormality. No spinal canal or neural foraminal stenosis. L2-L3: No posterior disc abnormality. No spinal canal or neural foraminal stenosis. L3-L4: No posterior disc abnormality. No spinal canal or neural foraminal stenosis. L4-L5: No posterior disc abnormality or spinal canal stenosis. Increased left-sided facet joint fluid. No spinal canal or neural foraminal stenosis. L5-S1: No posterior disc abnormality. No spinal canal or neural foraminal stenosis. MR/MR lumbar spine wo/w con IMPRESSION: No evidence of discitis osteomyelitis. Increased fluid is seen within the left-sided L4-L5 facet joint with some periarticular edema seen about this region. If there is concern for infection, septic arthritis could have this appearance. Facet degeneration also a differential consideration. No spinal canal stenosis or nerve root compression is seen.
--- NOTE | ~2022-08-15 | CT_ITS ---
EXAMINATION: CT ABDOMEN AND PELVIS WITHOUT CONTRAST CLINICAL INFORMATION: Left CVA tenderness, question pyelonephritis COMPARISON: None TECHNIQUE: Multidetector volumetric imaging was performed from the superior aspect of the liver through the pubic symphysis. Sagittal and coronal reformatted images were obtained on the technologist's workstation. This CT examination was performed using dose optimization techniques as appropriate, variously including the following: *Automated exposure control *Adjustment of mA and/or kV according to patient size (this includes techniques or standardized protocols for targeted exams where dose is matched to indication/reason for exam; i.e. extremities or head) *Use of iterative reconstruction technique DLP: 519 mGy-cm FINDINGS: LUNG BASES: The visualized lung bases are unremarkable. LIVER, GALLBLADDER, AND BILIARY TREE: The liver is normal in size, shape, and attenuation. No focal hepatic lesion or biliary ductal dilatation is identified. Cholelithiasis is noted. There is additional hyperdensity throughout the gallbladder which may be due to gallstones or sludge. PANCREAS: Unremarkable. SPLEEN: Unremarkable. ADRENAL GLANDS: There is a thickened appearance of both adrenal glands, left greater than right and similar to chest CT 05/12/2022. KIDNEYS AND URETERS: No hydronephrosis or obstructing calculus identified bilaterally. There is mild bilateral perinephric stranding which appears symmetric. BLADDER: Distended without significant wall thickening. GASTROINTESTINAL TRACT: There is scattered colonic diverticulosis without convincing diverticulitis. No evidence of bowel obstruction. No significant bowel wall thickening is seen. The appendix is unremarkable. No free fluid or free air is seen. ABDOMINAL WALL: No significant hernia is appreciated. LYMPH NODES: There are a few prominent and enlarged left external iliac and inguinal lymph nodes measuring up to 1.3 cm in short axis dimension. VASCULAR: Moderate atherosclerotic calcifications are present. PELVIC VISCERA: Unremarkable. OSSEOUS STRUCTURES: Unremarkable. CT/CT abdomen pelvis wo IV con IMPRESSION: 1. No hydronephrosis or obstructing calculus identified. Mild bilateral perinephric stranding is nonspecific and may be chronic, though pyelonephritis cannot be excluded in the proper clinical setting. Of note, assessment for pyelonephritis is significantly limited without intravenous contrast. 2. Few prominent and enlarged left external iliac and inguinal lymph nodes, of uncertain etiology and which may be reactive. 3. Cholelithiasis. Additional hyperdensity throughout the gallbladder may be due to gallstones or sludge. If there is clinical concern for cholecystitis, this would be better assessed with ultrasound. 4. Thickened appearance of both adrenal glands, left greater than right, similar to chest CT 05/12/2022.
--- NOTE | ~2022-08-15 | US_ITS ---
EXAMINATION: US VENOUS ULTRASOUND WITH DOPPLER LOWER EXTREMITY, LEFT CLINICAL INFORMATION: Left lower extremity swelling. COMPARISON: 10/31/2021. TECHNIQUE: Ultrasound of the deep veins is performed from the hip to the calf with compression sonography and color and pulse Doppler assessment. Spectral analysis with color-flow imaging is performed. FINDINGS: There is normal venous compression and respiratory variation and augmented flow. The visualized common femoral vein, superficial femoral vein, profunda femoral vein, popliteal vein, and the trifurcation region shows no evidence of deep venous thrombosis. There is no significant popliteal fossa cyst. There is a prominent left inguinal lymph node measuring 3 x 1.2 x 1.8 cm. Thickened appearance of the cortex. Normal vascular stalk. If the patient's symptoms persist, followup ultrasound in 5 days 7 days might be of value to exclude proximal propagation from a non-visualized calf vein. US/US venous duplex LE LT IMPRESSION: 1. No DVT demonstrated in the left lower extremity. 2. Prominent left inguinal lymph node, nonspecific.
--- NOTE | ~2022-08-15 | XR_ITS ---
EXAMINATION: XR FOOT, LEFT CLINICAL INFORMATION: Diabetic wound. COMPARISON: MRI and radiograph dated 05/12/2022 TECHNIQUE: AP, lateral, and oblique views of the left foot. FINDINGS: Charcot arthropathy is again seen in the left midfoot with progressive osseous destruction and disorganization. There is increased impaction of the talar head into the midfoot, now articulating with the medial cuneiform. There is increased dorsal subluxation of the midfoot bones. There is increased osteolysis at the tarsals and metatarsals around the Chopart tarsometatarsal, and subtalar joints, consistent with osteomyelitis. Soft tissues are swollen. MTP joints and interphalangeal joints are unremarkable. XR/XR foot LT 2V IMPRESSION: Progressive osseous destruction and disorganization at the midfoot with increased dorsal subluxation of the midfoot bones as well as progression of the osseous erosion around the joints of the midfoot and hindfoot. Findings are consistent with progressive Charcot arthropathy and osteomyelitis.
--- NOTE | ~2022-08-15 | XR_ITS ---
EXAMINATION: XR CHEST CLINICAL INFORMATION: Shortness of breath COMPARISON: Chest CT dated 05/12/2022 and chest radiograph dated 03/28/2022 TECHNIQUE: Frontal view of the chest was obtained. FINDINGS: Lungs are clear. No consolidation, pneumothorax, or pleural effusion. EKG leads overlie the chest. Cardiac and mediastinal contours are normal. Pulmonary vasculature is unremarkable. No acute osseous findings. Mild degenerative spondylosis in the thoracic spine. XR/XR chest 1V IMPRESSION: No acute cardiopulmonary findings.
--- NOTE | 2022-08-15 15:42 | ED.FEVER ---
HPI - Fever General Chief Complaint: General Medical <Raya Tracy NP - Last Filed: 08/15/22 15:49> Stated Complaint: fever, high white count <Raya Tracy NP - Last Filed: 08/15/22 15:49> Time Seen by Provider: 08/15/22 15:59 <Raya Tracy NP - Last Filed: 08/15/22 15:49> Source: patient <ZARIA Ware - Last Filed: 08/15/22 18:15> Mode of arrival: ambulatory <ZARIA Ware - Last Filed: 08/15/22 18:15> History of Present Illness HPI Narrative: 57 [id number] with hx of DM, PAD, PVD, HTN, charcot foot, CKD, osteomyelitis s/p multiple debridements last in May sent in by outpatient provider for noted fever and abnormal outpatient labs. Patient reports chills, leakage from left foot, and increasing LLE swelling starting Saturday. Also reports chronic SOB and chest pain, unchanged. Pt denies recent abx use, abdominal pain, nausea/vomiting, known injury/trauma or fall <ZARIA Ware - Last Filed: 08/15/22 18:15> MD elicited complaint: fever <ZARIA Ware - Last Filed: 08/15/22 18:15> Pertinent past history: diabetes <ZARIA Ware - Last Filed: 08/15/22 18:15> Onset (ago): day(s) <ZARIA Ware - Last Filed: 08/15/22 18:15> Related Data Home Medications: Home Medications Medication Instructions Recorded Confirmed aspirin 81 mg tablet,delayed 1 tab PO DAILY 07/02/21 07/11/22 release cholecalciferol (vitamin D3) 25 1 tab PO DAILY 07/02/21 07/11/22 mcg (1,000 unit) tablet metformin 1,000 mg tablet 1 tab PO BID 07/02/21 07/11/22 blood sugar diagnostic (FreeStyle #10 ea 09/18/21 07/11/22 Lite Strips) lancets 33 gauge (TRUEplus Lancets) #100 ea 09/18/21 07/11/22 pen needle, diabetic 31 gauge x #1,200 ea 09/18/21 07/11/22 5/16 (UltiCare Pen Needle) atorvastatin 40 mg tablet 40 mg PO DAILY 06/13/22 07/11/22 empagliflozin 25 mg tablet 25 mg PO DAILY 06/13/22 07/11/22 (Jardiance) ezetimibe 10 mg tablet 10 mg PO DAILY 06/13/22 07/11/22 pantoprazole 40 mg tablet,delayed 40 mg PO DAILY 06/13/22 07/11/22 release pioglitazone 15 mg tablet 15 mg PO DAILY 06/13/22 07/11/22 insulin glargine 100 unit/mL (3 40 unit subcut DAILY 08/15/22 mL) subcutaneous pen (Lantus Solostar U-100 Insulin) lidocaine 5 % topical patch patch topical 08/15/22 magnesium oxide 400 mg (241.3 mg 400 mg PO TID 08/15/22 magnesium) tablet Previous Rx's Medication Instructions Recorded amlodipine 5 mg tablet 5 mg PO DAILY #30 tabs 05/17/22 metoprolol succinate 50 mg 50 mg PO DAILY #30 tabs 05/17/22 tablet,extended release 24 hr doxycycline hyclate 100 mg tablet 100 mg PO BID 30 days #60 tabs 06/27/22 folic acid 1 mg tablet 1 mg PO DAILY #90 tabs 07/10/22 <Raya Tracy NP - Last Filed: 08/15/22 15:49> Allergies/Adverse Reactions: Allergies Allergy/AdvReac Type Severity Reaction Status Date / Time No Known Allergies Allergy Unknown UNKNOWN Verified 08/15/22 14:25 [NO KNOWN ALLERGIES] <Raya Tracy NP - Last Filed: 08/15/22 15:49> Review of Systems Review of Systems: Constitutional: + Fever, No Chills, No Fatigue, No Malaise ENT/Mouth: No Ear Pain, No Nasal Congestion, No sore throat, No Rhinorrhea, No Swallowing Difficulty Eyes: No Eye Pain, No Swelling, No Redness, No Foreign Body, No Discharge, No Vision Changes Cardiovascular: + Chest Pain (chronic, intermittent), + SOB (chronic), No Dyspnea on Exertion, +RLE edema Respiratory: No Cough, No Sputum, No Dyspnea Gastrointestinal: No Nausea, No Vomiting, No Diarrhea, No Constipation, No Abdominal pain Genitourinary: No irregular bleeding, No Dysuria, No Urinary Frequency, No Hematuria, No Flank Pain Musculoskeletal: No joint pain, No Myalgias, + Joint Swelling Skin: + Skin Lesions, No rash Neuro: No Weakness, No Numbness, No Paresthesias, No Loss of Consciousness, No Dizziness, No Headache <ZARIA Ware - Last Filed: 08/15/22 18:15> Yes all other systems are reviewed and are negative <ZARIA Ware - Last Filed: 08/15/22 18:15> Constitutional: Constitutional: Reports as per HPI <ZARIA Ware - Last Filed: 08/15/22 18:15> [facility] Past Medical History Attestation statement: The following information was validated with the patient. <ZARIA Ware - Last Filed: 08/15/22 18:15> Medical History: Medical History Acid reflux Anemia in chronic kidney disease (CKD) Arthritis Carpal tunnel syndrome Chronic ulcer of right foot Degenerative joint disease of spine Essential hypertension Hypertension Irritable bowel syndrome Leukocytosis Microcytic hypochromic anemia Obesity Osteomyelitis Osteoporosis PAD (peripheral artery disease) Peripheral neuropathy Peripheral vascular disease Prolapsed uterus Rectal prolapse Retinopathy Toe ulcer due to DM <Raya Tracy NP - Last Filed: 08/15/22 15:49> Surgical History: Surgical History H/O dilation and curettage <Raya Tracy NP - Last Filed: 08/15/22 15:49> Family History Family History: Family History Maternal Grandmother Diabetes Maternal Grandfather Heart disease Cancer of unknown origin Mother HTN (hypertension) Paternal Uncle Thalassemia <Raya Tracy NP - Last Filed: 08/15/22 15:49> Social History Social History: Social History Household Members: Children Household Members Other:: 4 Housing: Apartment Are you a primary care transitions manager to a significant other at home: No Do you presently have visiting nurse or other home services: No Alcohol intake: never Patient Tobacco Use Status: Never used Tobacco Second Hand Smoke Exposure: No Use of substances other than those prescribed or required for medical reasons: No Advance Directives: No Advance Directives Information Provided: No service: No Current occupational status: disabled <Raya Tracy NP - Last Filed: 08/15/22 15:49> Physical Exam Vital Signs: Vital Signs: Last Vital Signs Temp 97.7 F 08/15/22 18:04 Pulse 111 H 08/15/22 18:04 Resp 15 08/15/22 18:04 BP 138/64 08/15/22 18:04 Pulse Ox 96 08/15/22 18:04 O2 Del Method 08/15/22 18:04 BMI result Body Mass Index 34.3 <Raya Tracy NP - Last Filed: 08/15/22 15:49> Vital Signs: Last Vital Signs Temp 97.7 F 08/15/22 18:04 Pulse 111 H 08/15/22 18:04 Resp 15 08/15/22 18:04 BP 138/64 08/15/22 18:04 Pulse Ox 96 08/15/22 18:04 O2 Del Method 08/15/22 18:04 BMI result Body Mass Index 34.3 <ZARIA Ware - Last Filed: 08/15/22 18:15> Const: General: cooperative, healthy appearing, no acute distress, alert and awake <ZARIA Ware - Last Filed: 08/15/22 18:15> Orientation/consciousness: patient oriented x3 <ZARIA Ware - Last Filed: 08/15/22 18:15> Limitations: no limitations <ZARIA Ware - Last Filed: 08/15/22 18:15> HEENT: Head: Yes normal to inspection and Yes atraumatic <ZARIA Ware - Last Filed: 08/15/22 18:15> Ears: hearing grossly normal bilaterally <ZARIA Ware - Last Filed: 08/15/22 18:15> General nose exam: Normal external nose present <ZARIA Ware Last Filed: 08/15/22 18:15> Face and sinus: Yes normal facial exam <ZARIA Ware - Last Filed: 08/15/22 18:15> Eyes: General: appearance normal, both eyes and all related structures <ZARIA Ware - Last Filed: 08/15/22 18:15> EOM: EOMs intact bilaterally <ZARIA Ware - Last Filed: 08/15/22 18:15> Neck: Neck: Yes normal visual inspection and Yes no meningeal signs <ZARIA Ware - Last Filed: 08/15/22 18:15> Resp: Effort & Inspection: normal respiratory effort and no respiratory distress <Jazmyn Orta PA - Last Filed: 08/15/22 18:15> Auscultation: clear to auscultation bilaterally, no crackles and no wheezes <Jazmyn Orta PA - Last Filed: 08/15/22 18:15> Cardio: Rate: regular rate <Jazmyn Orta PA - Last Filed: 08/15/22 18:15> Heart sounds: S1 normal heart sound present and S2 normal heart sound present <Jazmyn Orta PA - Last Filed: 08/15/22 18:15> GI: Inspection: Yes normal to inspection <ZARIA Ware - Last Filed: 08/15/22 18:15> Palpation (GI): Soft to palpation, nontender, no guarding and not rigid <Jazmyn Orta PA - Last Filed: 08/15/22 18:15> Skin: Rashes: no rashes <ZARIA Ware - Last Filed: 08/15/22 18:15> Neuro: General: patient oriented x3, tone normal, moves all extremities and no meningeal signs <ZARIA Ware - Last Filed: 08/15/22 18:15> Extrem: Other: Please refer to images above. Right foot with noted dusky collar, open draining wound to lateral aspect. Skin breakdown noted to 5th toe. No fluctuance/induration, no warmth. Pulses intact. No crepitus RLE with increased swelling. Nonpitting edema <ZARIA Ware - Last Filed: 08/15/22 18:15> Course Course Course Narrative: This is a rapid medical exam. Deferred additional HPI, ROS, PE to primary provider. 57 yo female with history of anemia gets biweekly procrit, HTN, HLD, DM, GERD, diabetic wound left foot here with left leg swelling/pain, fever, chills at home. Seen at oncology/[facility] for procrit and noted to have fever. Sent in for further evaluation. Fever in triage with tachycardia. brought direct to room. Labs including blood cultures ordered, EKG, CXR, APAP. Sepsis alert called. <Raya Tracy NP - Last Filed: 08/15/22 15:49> This is a rapid medical exam. Deferred additional HPI, ROS, PE to primary provider. 57 yo female with history of anemia gets biweekly procrit, HTN, HLD, DM, GERD, diabetic wound left foot here with left leg swelling/pain, fever, chills at home. Seen at oncology/[facility] for procrit and noted to have fever. Sent in for further evaluation. Fever in triage with tachycardia. brought direct to room. Labs including blood cultures ordered, EKG, CXR, APAP. Sepsis alert called. -[id number]--noted leukocytosis of 23.1. H&H stable. BUN of 27. T and D bili mildly elevated. Initial troponin 9.1 > will obtain 3 hour repeat -BNP acute on chronically elevated -COVID + US venous duplex LE LT IMPRESSION: 1.? No DVT demonstrated in the left lower extremity. 2.? Prominent left inguinal lymph node, nonspecific. > plan to admit for further management XR chest 1V IMPRESSION: No acute cardiopulmonary findings. XR foot LT 2V IMPRESSION: Progressive osseous destruction and disorganization at the midfoot with increased dorsal subluxation of the midfoot bones as well as progression of the osseous erosion around the joints of the midfoot and hindfoot. Findings are consistent with progressive Charcot arthropathy and osteomyelitis. ? <ZARIA Ware - Last Filed: 08/15/22 18:15> Medications Administered Discontinued Medications Generic Name Dose Route Start Last Admin Trade Name Freq PRN Reason Stop Dose Admin Acetaminophen 975 mg 08/15/22 15:45 08/15/22 16:23 Acetaminophen 325 Mg Tablet PO 08/15/22 15:46 975 mg ONCE ONE Administration Cefepime HCl 1 gm/ Sodium 50 mls @ 100 mls/hr 08/15/22 15:50 08/15/22 17:06 Chloride IV 08/15/22 16:19 Infused ONCE ONE Infusion Sodium Chloride 250 mls @ 999 mls/hr 08/15/22 16:00 08/15/22 17:11 Ns IV 08/15/22 16:15 Infused .Q16M STA Infusion Ketorolac Tromethamine 15 mg 08/15/22 17:25 08/15/22 17:37 Ketorolac Tromethamine 15 Mg/Ml Vial IVPUSH 08/15/22 17:26 15 mg ONCE ONE Administration <Raya Tracy NP - Last Filed: 08/15/22 15:49> Medications Administered Discontinued Medications Generic Name Dose Route Start Last Admin Trade Name Tiffany PRN Reason Stop Dose Admin Acetaminophen 975 mg 08/15/22 15:45 08/15/22 16:23 Acetaminophen 325 Mg Tablet PO 08/15/22 15:46 975 mg ONCE ONE Administration Cefepime HCl 1 gm/ Sodium 50 mls @ 100 mls/hr 08/15/22 15:50 08/15/22 17:06 Chloride IV 08/15/22 16:19 Infused ONCE ONE Infusion Sodium Chloride 250 mls @ 999 mls/hr 08/15/22 16:00 08/15/22 17:11 Ns IV 08/15/22 16:15 Infused .Q16M STA Infusion Ketorolac Tromethamine 15 mg 08/15/22 17:25 08/15/22 17:37 Ketorolac Tromethamine 15 Mg/Ml Vial IVPUSH 08/15/22 17:26 15 mg ONCE ONE Administration <ZARIA Ware - Last Filed: 08/15/22 18:15> Medical Decision Making Medical Decision Making MDM Narrative: 57 [id number] with hx of DM, PAD, PVD, HTN, charcot foot, CKD, osteomyelitis s/p multiple debridements last in May sent in by outpatient provider for noted fever and abnormal outpatient labs. Patient reports chills, leakage from left foot, and increasing LLE swelling starting Saturday. On exam febrile to 102.3, tachycardic likely from fever, physical exam as above please refer to images. Concern for acute cellulitis vs osteomyelitis vs ?DVT. Lower suspicion for underlying abscess, septic joint, acute ACS or PNA/CHF Plan: EKG, labs, UA, CXR, foot x-ray, venous duplex ultrasound, empiric IV antibiotics, admission Please refer to course for remaining clinical decision making, interpretation of labs/imaging results, and discussions with consultants and/or family members. <ZARIA Ware - Last Filed: 08/15/22 18:15> Differential Diagnosis Differential Diagnoses: The differential diagnosis associated with the presentation includes <ZARIA Ware - Last Filed: 08/15/22 18:15> as above <ZARIA Ware - Last Filed: 08/15/22 18:15> Admission/Observation Consideration of admission/observation: Escalation of care including admission/observation considered <ZARIA Ware - Last Filed: 08/15/22 18:15> Lab Data MDM Lab Attestation statement: I reviewed the patient's lab results. <ZARIA Ware - Last Filed: 08/15/22 18:15> Result Diagrams: 08/15/22 16:09 08/15/22 16:09 <Raya Tracy NP - Last Filed: 08/15/22 15:49> Labs: Lab Results 08/15/22 08/15/22 08/15/22 Range/Units 14:36 14:36 16:09 WBC 23.1 H (4.8-10.8) X10*3/uL RBC 4.95 (4.20-5.50) X10*6/uL Hgb 9.1 L (12.0-16.0) g/dl Hct 29.5 L (37.0-47.0) % MCV 59.6 L (80.0-98.0) fL MCH 18.4 L (27.0-33.0) pg MCHC 30.8 L (31.0-35.0) g/dl RDW 18.9 H (11.0-16.0) % Plt Count 763 H (160-400) X10*3/uL MPV 9.7 (9.4-12.3) fL Immature Gran % (Auto) 3.2 H (0.0-0.4) % Neut % (Auto) 83.5 H (45-73) % Lymph % (Auto) 5.2 L (20-40) % [place]ama % (Auto) 7.7 (2-11) % Eos % (Auto) 0.1 (0-4) % Baso % (Auto) 0.3 (0-2) % Lymph # (Auto) 1.2 (1.2-4.9) X10*3/uL [place]ama # (Auto) 1.8 H (0.1-1.2) X10*3/uL Eos # (Auto) 0.0 (0.0-0.4) X10*3/uL Baso # (Auto) 0.1 (0.0-0.2) X10*3/uL Abs Immat Gran (auto) 0.73 H (0.00-0.03) X10*3/uL Absolute Neuts (auto) 19.3 H (2.0-8.3) x10*3/uL Absolute Nucleated RBC 0.000 (0.0-0.012) X10*3/uL Nucleated RBC % (auto) 0.0 (0.0-0.2) /100WBC ESR 102 H (0-20) MM/HR PT (10.0-13.1) SEC INR (0.9-1.1) Sodium (135-145) mmol/L Potassium (3.3-5.1) mmol/L Chloride (96-108) mmol/L Carbon Dioxide (22-29) mmol/L Anion Gap (12-20) BUN (9-16) mg/dL Creatinine (0.5-1.4) mg/dL Estim Creat Clear Calc Estimated GFR Random Glucose (60-115) mg/dL Lactic Acid (0.5-2.0) mmol/L Calcium (8.4-10.2) mg/dL Magnesium (1.6-2.6) mg/dL Total Bilirubin (0.0-1.0) mg/dL Direct Bilirubin (0.0-0.5) mg/dL AST (5-31) U/L ALT (0-31) U/L Alkaline Phosphatase (39-117) U/L Troponin I High Sens (<3.5-17.0) ng/L B-Natriuretic Peptide 233 H (<100) pg/mL Total Protein (6.5-8.0) g/dL Albumin (3.5-5.0) g/dL Urine Color Urine Appearance Urine pH (5.0-9.0) Ur Specific [place] (1.005-1.025) Urine Protein (Neg-Trace) mg/dL Urine Glucose (UA) (Negative) mg/dL Urine Ketones (Negative) mg/dL Urine Blood (Negative) Urine Nitrite (Negative) Ur Leukocyte Esterase (Negative) Urine RBC (0-2) /HPF Urine WBC (0-5) /HPF Ur Squamous Epith Cells (0-2) /HPF Urine Bacteria (None Seen) Hyaline Casts (0-2) /LPF Granular Casts Influenza Type A (PCR) (Negative) Influenza Type B (PCR) (Negative) RSV RNA Qual (PCR) (Negative) SARS-CoV-2 RNA (RT-PCR) (Negative) 08/15/22 08/15/22 08/15/22 Range/Units 16:09 16:09 16:09 WBC (4.8-10.8) X10*3/uL RBC (4.20-5.50) X10*6/uL Hgb (12.0-16.0) g/dl Hct (37.0-47.0) % MCV (80.0-98.0) fL MCH (27.0-33.0) pg MCHC (31.0-35.0) g/dl RDW (11.0-16.0) % Plt Count (160-400) X10*3/uL MPV (9.4-12.3) fL Immature Gran % (Auto) (0.0-0.4) % Neut % (Auto) (45-73) % Lymph % (Auto) (20-40) % [place]ama % (Auto) (2-11) % Eos % (Auto) (0-4) % Baso % (Auto) (0-2) % Lymph # (Auto) (1.2-4.9) X10*3/uL [place] # (Auto) (0.1-1.2) X10*3/uL Eos # (Auto) (0.0-0.4) X10*3/uL Baso # (Auto) (0.0-0.2) X10*3/uL Abs Immat Gran (auto) (0.00-0.03) X10*3/uL Absolute Neuts (auto) (2.0-8.3) x10*3/uL Absolute Nucleated RBC (0.0-0.012) X10*3/uL Nucleated RBC % (auto) (0.0-0.2) /100WBC ESR (0-20) MM/HR PT 16.7 H (10.0-13.1) SEC INR 1.4 H (0.9-1.1) Sodium 134 L (135-145) mmol/L Potassium 3.7 (3.3-5.1) mmol/L Chloride 96 (96-108) mmol/L Carbon Dioxide 18 L (22-29) mmol/L Anion Gap 24 H (12-20) BUN 27 H (9-16) mg/dL Creatinine 1.23 (0.5-1.4) mg/dL Estim Creat Clear Calc 46.0 Estimated GFR 45 Random Glucose 287 H (60-115) mg/dL Lactic Acid 1.1 (0.5-2.0) mmol/L Calcium 10.0 (8.4-10.2) mg/dL Magnesium 1.6 (1.6-2.6) mg/dL Total Bilirubin 1.6 H (0.0-1.0) mg/dL Direct Bilirubin 0.9 H (0.0-0.5) mg/dL AST 25 (5-31) U/L ALT 14 (0-31) U/L Alkaline Phosphatase 297 H (39-117) U/L Troponin I High Sens (<3.5-17.0) ng/L B-Natriuretic Peptide (<100) pg/mL Total Protein 7.2 (6.5-8.0) g/dL Albumin 3.0 L (3.5-5.0) g/dL Urine Color Urine Appearance Urine pH (5.0-9.0) Ur Specific [place] (1.005-1.025) Urine Protein (Neg-Trace) mg/dL Urine Glucose (UA) (Negative) mg/dL Urine Ketones (Negative) mg/dL Urine Blood (Negative) Urine Nitrite (Negative) Ur Leukocyte Esterase (Negative) Urine RBC (0-2) /HPF Urine WBC (0-5) /HPF Ur Squamous Epith Cells (0-2) /HPF Urine Bacteria (None Seen) Hyaline Casts (0-2) /LPF Granular Casts Influenza Type A (PCR) (Negative) Influenza Type B (PCR) (Negative) RSV RNA Qual (PCR) (Negative) SARS-CoV-2 RNA (RT-PCR) (Negative) 08/15/22 08/15/22 08/15/22 Range/Units 16:09 16:25 16:51 WBC (4.8-10.8) X10*3/uL RBC (4.20-5.50) X10*6/uL Hgb (12.0-16.0) g/dl Hct (37.0-47.0) % MCV (80.0-98.0) fL MCH (27.0-33.0) pg MCHC (31.0-35.0) g/dl RDW (11.0-16.0) % Plt Count (160-400) X10*3/uL MPV (9.4-12.3) fL Immature Gran % (Auto) (0.0-0.4) % Neut % (Auto) (45-73) % Lymph % (Auto) (20-40) % [place] % (Auto) (2-11) % Eos % (Auto) (0-4) % Baso % (Auto) (0-2) % Lymph # (Auto) (1.2-4.9) X10*3/uL [place] # (Auto) (0.1-1.2) X10*3/uL Eos # (Auto) (0.0-0.4) X10*3/uL Baso # (Auto) (0.0-0.2) X10*3/uL Abs Immat Gran (auto) (0.00-0.03) X10*3/uL Absolute Neuts (auto) (2.0-8.3) x10*3/uL Absolute Nucleated RBC (0.0-0.012) X10*3/uL Nucleated RBC % (auto) (0.0-0.2) /100WBC ESR (0-20) MM/HR PT (10.0-13.1) SEC INR (0.9-1.1) Sodium (135-145) mmol/L Potassium (3.3-5.1) mmol/L Chloride (96-108) mmol/L Carbon Dioxide (22-29) mmol/L Anion Gap (12-20) BUN (9-16) mg/dL Creatinine (0.5-1.4) mg/dL Estim Creat Clear Calc Estimated GFR Random Glucose (60-115) mg/dL Lactic Acid (0.5-2.0) mmol/L Calcium (8.4-10.2) mg/dL Magnesium (1.6-2.6) mg/dL Total Bilirubin (0.0-1.0) mg/dL Direct Bilirubin (0.0-0.5) mg/dL AST (5-31) U/L ALT (0-31) U/L Alkaline Phosphatase (39-117) U/L Troponin I High Sens 9.1 (<3.5-17.0) ng/L B-Natriuretic Peptide (<100) pg/mL Total Protein (6.5-8.0) g/dL Albumin (3.5-5.0) g/dL Urine Color Yellow Urine Appearance Cloudy Urine pH 5.5 (5.0-9.0) Ur Specific [place] 1.020 (1.005-1.025) Urine Protein 300 (3+) H (Neg-Trace) mg/dL Urine Glucose (UA) >=1000 H (Negative) mg/dL Urine Ketones Trace (Negative) mg/dL Urine Blood Small (1+) H (Negative) Urine Nitrite Negative (Negative) Ur Leukocyte Esterase Negative (Negative) Urine RBC 0-2 (0-2) /HPF Urine WBC 0-5 (0-5) /HPF Ur Squamous Epith Cells 11-20 (0-2) /HPF Urine Bacteria None Seen (None Seen) Hyaline Casts 3-5 (0-2) /LPF Granular Casts Present Influenza Type A (PCR) NEGATIVE (Negative) Influenza Type B (PCR) NEGATIVE (Negative) RSV RNA Qual (PCR) NEGATIVE (Negative) SARS-CoV-2 RNA (RT-PCR) POSITIVE A (Negative) <Raya Tracy, [employer] - Last Filed: 08/15/22 15:49> Lab Results 08/15/22 08/15/22 08/15/22 Range/Units 14:36 14:36 16:09 WBC 23.1 H (4.8-10.8) X10*3/uL RBC 4.95 (4.20-5.50) X10*6/uL Hgb 9.1 L (12.0-16.0) g/dl Hct 29.5 L (37.0-47.0) % MCV 59.6 L (80.0-98.0) fL MCH 18.4 L (27.0-33.0) pg MCHC 30.8 L (31.0-35.0) g/dl RDW 18.9 H (11.0-16.0) % Plt Count 763 H (160-400) X10*3/uL MPV 9.7 (9.4-12.3) fL Immature Gran % (Auto) 3.2 H (0.0-0.4) % Neut % (Auto) 83.5 H (45-73) % Lymph % (Auto) 5.2 L (20-40) % [place] % (Auto) 7.7 (2-11) % Eos % (Auto) 0.1 (0-4) % Baso % (Auto) 0.3 (0-2) % Lymph # (Auto) 1.2 (1.2-4.9) X10*3/uL [place] # (Auto) 1.8 H (0.1-1.2) X10*3/uL Eos # (Auto) 0.0 (0.0-0.4) X10*3/uL Baso # (Auto) 0.1 (0.0-0.2) X10*3/uL Abs Immat Gran (auto) 0.73 H (0.00-0.03) X10*3/uL Absolute Neuts (auto) 19.3 H (2.0-8.3) x10*3/uL Absolute Nucleated RBC 0.000 (0.0-0.012) X10*3/uL Nucleated RBC % (auto) 0.0 (0.0-0.2) /100WBC ESR 102 H (0-20) MM/HR PT (10.0-13.1) SEC INR (0.9-1.1) Sodium (135-145) mmol/L Potassium (3.3-5.1) mmol/L Chloride (96-108) mmol/L Carbon Dioxide (22-29) mmol/L Anion Gap (12-20) BUN (9-16) mg/dL Creatinine (0.5-1.4) mg/dL Estim Creat Clear Calc Estimated GFR Random Glucose (60-115) mg/dL Lactic Acid (0.5-2.0) mmol/L Calcium (8.4-10.2) mg/dL Magnesium (1.6-2.6) mg/dL Total Bilirubin (0.0-1.0) mg/dL Direct Bilirubin (0.0-0.5) mg/dL AST (5-31) U/L ALT (0-31) U/L Alkaline Phosphatase (39-117) U/L Troponin I High Sens (<3.5-17.0) ng/L B-Natriuretic Peptide 233 H (<100) pg/mL Total Protein (6.5-8.0) g/dL Albumin (3.5-5.0) g/dL Urine Color Urine Appearance Urine pH (5.0-9.0) Ur Specific [place] (1.005-1.025) Urine Protein (Neg-Trace) mg/dL Urine Glucose (UA) (Negative) mg/dL Urine Ketones (Negative) mg/dL Urine Blood (Negative) Urine Nitrite (Negative) Ur Leukocyte Esterase (Negative) Urine RBC (0-2) /HPF Urine WBC (0-5) /HPF Ur Squamous Epith Cells (0-2) /HPF Urine Bacteria (None Seen) Hyaline Casts (0-2) /LPF Granular Casts Influenza Type A (PCR) (Negative) Influenza Type B (PCR) (Negative) RSV RNA Qual (PCR) (Negative) SARS-CoV-2 RNA (RT-PCR) (Negative) 08/15/22 08/15/22 08/15/22 Range/Units 16:09 16:09 16:09 WBC (4.8-10.8) X10*3/uL RBC (4.20-5.50) X10*6/uL Hgb (12.0-16.0) g/dl Hct (37.0-47.0) % MCV (80.0-98.0) fL MCH (27.0-33.0) pg MCHC (31.0-35.0) g/dl RDW (11.0-16.0) % Plt Count (160-400) X10*3/uL MPV (9.4-12.3) fL Immature Gran % (Auto) (0.0-0.4) % Neut % (Auto) (45-73) % Lymph % (Auto) (20-40) % [place] % (Auto) (2-11) % Eos % (Auto) (0-4) % Baso % (Auto) (0-2) % Lymph # (Auto) (1.2-4.9) X10*3/uL [place] # (Auto) (0.1-1.2) X10*3/uL Eos # (Auto) (0.0-0.4) X10*3/uL Baso # (Auto) (0.0-0.2) X10*3/uL Abs Immat Gran (auto) (0.00-0.03) X10*3/uL Absolute Neuts (auto) (2.0-8.3) x10*3/uL Absolute Nucleated RBC (0.0-0.012) X10*3/uL Nucleated RBC % (auto) (0.0-0.2) /100WBC ESR (0-20) MM/HR PT 16.7 H (10.0-13.1) SEC INR 1.4 H (0.9-1.1) Sodium 134 L (135-145) mmol/L Potassium 3.7 (3.3-5.1) mmol/L Chloride 96 (96-108) mmol/L Carbon Dioxide 18 L (22-29) mmol/L Anion Gap 24 H (12-20) BUN 27 H (9-16) mg/dL Creatinine 1.23 (0.5-1.4) mg/dL Estim Creat Clear Calc 46.0 Estimated GFR 45 Random Glucose 287 H (60-115) mg/dL Lactic Acid 1.1 (0.5-2.0) mmol/L Calcium 10.0 (8.4-10.2) mg/dL Magnesium 1.6 (1.6-2.6) mg/dL Total Bilirubin 1.6 H (0.0-1.0) mg/dL Direct Bilirubin 0.9 H (0.0-0.5) mg/dL AST 25 (5-31) U/L ALT 14 (0-31) U/L Alkaline Phosphatase 297 H (39-117) U/L Troponin I High Sens (<3.5-17.0) ng/L B-Natriuretic Peptide (<100) pg/mL Total Protein 7.2 (6.5-8.0) g/dL Albumin 3.0 L (3.5-5.0) g/dL Urine Color Urine Appearance Urine pH (5.0-9.0) Ur Specific [place] (1.005-1.025) Urine Protein (Neg-Trace) mg/dL Urine Glucose (UA) (Negative) mg/dL Urine Ketones (Negative) mg/dL Urine Blood (Negative) Urine Nitrite (Negative) Ur Leukocyte Esterase (Negative) Urine RBC (0-2) /HPF Urine WBC (0-5) /HPF Ur Squamous Epith Cells (0-2) /HPF Urine Bacteria (None Seen) Hyaline Casts (0-2) /LPF Granular Casts Influenza Type A (PCR) (Negative) Influenza Type B (PCR) (Negative) RSV RNA Qual (PCR) (Negative) SARS-CoV-2 RNA (RT-PCR) (Negative) 08/15/22 08/15/22 08/15/22 Range/Units 16:09 16:25 16:51 WBC (4.8-10.8) X10*3/uL RBC (4.20-5.50) X10*6/uL Hgb (12.0-16.0) g/dl Hct (37.0-47.0) % MCV (80.0-98.0) fL MCH (27.0-33.0) pg MCHC (31.0-35.0) g/dl RDW (11.0-16.0) % Plt Count (160-400) X10*3/uL MPV (9.4-12.3) fL Immature Gran % (Auto) (0.0-0.4) % Neut % (Auto) (45-73) % Lymph % (Auto) (20-40) % [place] % (Auto) (2-11) % Eos % (Auto) (0-4) % Baso % (Auto) (0-2) % Lymph # (Auto) (1.2-4.9) X10*3/uL [place] # (Auto) (0.1-1.2) X10*3/uL Eos # (Auto) (0.0-0.4) X10*3/uL Baso # (Auto) (0.0-0.2) X10*3/uL Abs Immat Gran (auto) (0.00-0.03) X10*3/uL Absolute Neuts (auto) (2.0-8.3) x10*3/uL Absolute Nucleated RBC (0.0-0.012) X10*3/uL Nucleated RBC % (auto) (0.0-0.2) /100WBC ESR (0-20) MM/HR PT (10.0-13.1) SEC INR (0.9-1.1) Sodium (135-145) mmol/L Potassium (3.3-5.1) mmol/L Chloride (96-108) mmol/L Carbon Dioxide (22-29) mmol/L Anion Gap (12-20) BUN (9-16) mg/dL Creatinine (0.5-1.4) mg/dL Estim Creat Clear Calc Estimated GFR Random Glucose (60-115) mg/dL Lactic Acid (0.5-2.0) mmol/L Calcium (8.4-10.2) mg/dL Magnesium (1.6-2.6) mg/dL Total Bilirubin (0.0-1.0) mg/dL Direct Bilirubin (0.0-0.5) mg/dL AST (5-31) U/L ALT (0-31) U/L Alkaline Phosphatase (39-117) U/L Troponin I High Sens 9.1 (<3.5-17.0) ng/L B-Natriuretic Peptide (<100) pg/mL Total Protein (6.5-8.0) g/dL Albumin (3.5-5.0) g/dL Urine Color Yellow Urine Appearance Cloudy Urine pH 5.5 (5.0-9.0) Ur Specific [place] 1.020 (1.005-1.025) Urine Protein 300 (3+) H (Neg-Trace) mg/dL Urine Glucose (UA) >=1000 H (Negative) mg/dL Urine Ketones Trace (Negative) mg/dL Urine Blood Small (1+) H (Negative) Urine Nitrite Negative (Negative) Ur Leukocyte Esterase Negative (Negative) Urine RBC 0-2 (0-2) /HPF Urine WBC 0-5 (0-5) /HPF Ur Squamous Epith Cells 11-20 (0-2) /HPF Urine Bacteria None Seen (None Seen) Hyaline Casts 3-5 (0-2) /LPF Granular Casts Present Influenza Type A (PCR) NEGATIVE (Negative) Influenza Type B (PCR) NEGATIVE (Negative) RSV RNA Qual (PCR) NEGATIVE (Negative) SARS-CoV-2 RNA (RT-PCR) POSITIVE A (Negative) <ZARIA Ware - Last Filed: 08/15/22 18:15> Independent Interpretation I performed an independent interpretation of an: EKG <ZARIA Ware - Last Filed: 08/15/22 18:15> Interpretation: My interpretation EKG sinus tachycardia at a rate of 118. AR interval 130. QTC 431. No STEMI <ZARIA Ware Last Filed: 08/15/22 18:15> Radiology Impression Discussion of test interpretation with radiology: I have reviewed the radiologist's reading. <ZARIA Ware - Last Filed: 08/15/22 18:15> External Record Review External record reviewed: Office record, Outpatient record, Prior outpatient labs and Outside ED record <ZARIA Ware Last Filed: 08/15/22 18:15> Prescription Management I considered prescription management with: Pain Medication and Antibiotic <ZARIA Ware - Last Filed: 08/15/22 18:15> Chronic Conditions Patient?s care impacted by: Diabetes <ZARIA Ware Last Filed: 08/15/22 18:15> Critical Care Time Critical Care Time Critical Care Time: Yes <ZARIA Ware Last Filed: 08/15/22 18:15> Total Critical Care Time: 45 <ZARIA Ware Last Filed: 08/15/22 18:15> Attestation: I have personally provided critical care time exclusive of time spent on separately billable procedures. Time includes review of lab data, radiology results, discussion with consultants, and monitoring for potential decompensation. Intervention performed as documented. <ZARIA Ware Last Filed: 08/15/22 18:15> Discharge Plan Discharge Clinical Impression: Cellulitis, COVID-19 <Raya Tracy NP - Last Filed: 08/15/22 15:49> Patient Disposition: Admitted As Inpatient <Raya Tracy NP - Last Filed: 08/15/22 15:49>
--- NOTE | 2022-08-15 15:45 | ECG_ITS ---
Test Reason : WEAKNESS Blood Pressure : / mmHG Vent. Rate : 118 BPM Atrial Rate : 118 BPM P-R Int : 130 ms QRS Dur : 080 ms QT Int : 308 ms P-R-T Axes : 069 070 066 degrees QTc Int : 431 ms Sinus tachycardia Otherwise normal ECG When compared with ECG of 12-MAY-2022 04:10, Vent. rate has decreased BY [address] no longer depressed in Anterolateral leads T wave inversion no longer evident in Lateral leads Referred By: Raya Tracy Electronically Signed By:CARSON LOPEZ MD
[2022-08-15 16:19] LABS: MANUAL DIFF FLAG NO
[2022-08-15] MEDS: 0.9 % Sodium Chloride 250 ML 999 ML IV (16:23)
[2022-08-15] MEDS: Acetaminophen 325 MG TABLET 975 MG PO (16:23)
[2022-08-15] MEDS: cefEPime HCl 1 GM in 0.9 % Sodium Chloride 50 ML IV (16:26)
[2022-08-15 16:31] LABS: INTERNATIONAL NORM RATIO 1.4 (0.9-1.1); Prothrombin Time 16.7 SEC (10.0-13.1)
[2022-08-15 16:32] LABS: Lactic Acid 1.1 mmol/L (0.5-2.0)
[2022-08-15 16:38] LABS: Alanine Aminotransferase 14 U/L (0-31); Alkaline Phosphatase 297 U/L (39-117); Anion Gap 24 (12-20); Aspartate Amino Transferase 25 U/L (5-31); Basophils Absolute Auto 0.1 X10*3/uL (0.0-0.2); Basophils Percent Auto 0.3 % (0-2); Bilirubin Direct 0.9 mg/dL (0.0-0.5); Bilirubin Total 1.6 mg/dL (0.0-1.0); Blood Urea Nitrogen 27 mg/dL (9-16); Carbon Dioxide 18 mmol/L (22-29); Chloride 96 mmol/L (96-108); Eosinophils Percent Auto 0.1 % (0-4); Estimated Glomerular Filt Rate 45; Glucose Random 287 mg/dL (60-115); Hematocrit 29.5 % (37.0-47.0); Hemoglobin 9.1 g/dl (12.0-16.0); Imm Gran Abs Auto 0.73 X10*3/uL (0.00-0.03); Imm Gran Pct Auto 3.2 % (0.0-0.4); Lymphocytes Absolute Auto 1.2 X10*3/uL (1.2-4.9); Lymphocytes Percent Auto 5.2 % (20-40); Magnesium 1.6 mg/dL (1.6-2.6); Mean Corpuscular HGB Conc 30.8 g/dl (31.0-35.0); Mean Corpuscular Hemoglobin 18.4 pg (27.0-33.0); Mean Platelet Volume 9.7 fL (9.4-12.3); Monocytes Absolute Auto 1.8 X10*3/uL (0.1-1.2); Monocytes Percent Auto 7.7 % (2-11); Neutrophils Absolute Auto 19.3 x10*3/uL (2.0-8.3); Neutrophils Percent Auto 83.5 % (45-73); Platelet Count 763 X10*3/uL (160-400); Potassium 3.7 mmol/L (3.3-5.1); Red Blood Count 4.95 X10*6/uL (4.20-5.50); Red Cell Distribution Width 18.9 % (11.0-16.0); SCAN SMEAR FLAG 1; Sodium 134 mmol/L (135-145); Total Protein 7.2 g/dL (6.5-8.0); White Blood Count 23.1 X10*3/uL (4.8-10.8)
[2022-08-15 16:41] LABS: B Type Natriuretic Peptide 233 pg/mL (<100)
[2022-08-15 16:42] LABS: Mean Corpuscular Volume 59.6 fL (80.0-98.0)
[2022-08-15 16:44] LABS: Troponin-I High Sensitivity 9.1 ng/L (<3.5-17.0)
[2022-08-15 16:57] LABS: Appearance Urine Cloudy; Color Urine Yellow; Glucose Urine UA >=1000 mg/dL (Negative); Leukocyte Esterase Urine Negative (Negative); Nitrite Urine Negative (Negative); PH 5.5 (5.0-9.0); UMIC TRIGGER UACC YES; Urine Blood Small (1+) (Negative); Urine Ketones Trace mg/dL (Negative); Urine Protein 300 (3+) mg/dL (Neg-Trace)
[2022-08-15 16:57] LABS: Erythrocyte Sedimentation Rate 102 MM/HR (0-20)
[2022-08-15 17:14] LABS: Influenza A PCR NEGATIVE (Negative); Influenza B PCR NEGATIVE (Negative); Resp Syncy Virus RNA Qual PCR NEGATIVE (Negative); SARS COV2 PCR INHOUSE POSITIVE (Negative)
[2022-08-15 17:18] LABS: Bacteria Urine None Seen (None Seen); Granular Casts Urine Present; RBC Urine 0-2 /HPF (0-2); WBC Urine 0-5 /HPF (0-5)
[2022-08-15] MEDS: Ketorolac Tromethamine 15 MG/ML VIAL IVPUSH (17:37)
--- NOTE | 2022-08-15 18:34 | PM.EVENT ---
Event Note Date of Service: 08/15/22 Event Note: the patient was seen and evaluated with ZARIA Navarrete. I agree with his note, assessment and plan with the following. In summary, A 57 y\o lady with PMH of Dm Charcot foot, Hx OM, HLD, IBS among others who was referred to ED from hematology clinic for high Temp and elevated WBCs. reporting leaking from her LLE which has started recently. she follows with ID , wound clinic and vascular surgery as outpatient. LLE Osteomyelitis Vancomycin and Zosyn ID, vascular surgery eval Rest of evaluations by PA note. Time Spent With Patient Time: Total time managing care of this patient today ____ minutes.
--- NOTE | 2022-08-15 19:03 | PHA.MEDREC ---
Pharmacy Consult ? Medication Reconciliation Pharmacy has completed the medication reconciliation. pt with list at bedside, did not take anything today
--- NOTE | 2022-08-15 19:23 | PM.IMHP ---
History of Present Illness Date of Service: 08/15/22 Attending physician on admission: Loree Davis Chief Complaint: Fever and draining wound on left foot Pt is a 57-year-old female with a PMH significant for Charcot foot,?PAD, IBS, CKD, HTN, insulin-dependent DM, and hx of osteomyelitis with multiple debridements who presents to the ED from hematology clinic?for evaluation of elevated temperature and WBCs. Pt reports that she was unaware she had a temperature but had noticed an open wound on her left foot was draining what looked like blood rather than pus since this weekend. Pt seems hematology for Procrit shots for anemia and is followed by ID, vascular surgery, and wound care clinic for her foot. Pt complains of chronic chest pain that has been ongoing for months for which she is seen by [facility]. Pt also complains of left flank pain which began on Saturday. Pt states she feels like her left kidney was stomped on. Pt denies dysuria, polyuria, or urinary incontinence. Has chronic headaches. In the ED pt was febrile up to 102.3 and tachycardic. Labs were significant for leukocytosis of 23.1, stable H&H of 9.1/29.5, MCV 59.6, ESR 102, CRP 36.37, creatinine 1.23 (baseline 0.90), BNP 233, magnesium 1.5, troponin 9.1 with repeat 8.3, and lactic acid WNL at 1.1. UA clean for UTI. Pt tested positive for COVID. CXR showed no acute cardiopulmonary findings. XR of left foot showed evidence consistent with progressive Charcot arthropathy and osteomyelitis. CT?w/o contrast of abdomen and pelvis demonstrated mild bilateral perinephric stranding that may be chronic though pyelonephritis cannot be excluded and cholelithiasis. Venous duplex of left lower leg negative for DVT. EKG demonstrate sinus tachycardia without evidence of ST elevations or depressions. Pt was treated with IVF, ketorolac, and cefepime. Pt will be admitted to the hospital for treatment and further evaluation of chronic diabetic foot ulcer concerning for osteomyelitis. Review of Systems Review of Systems: Left foot pain and draining wound Left CVA tenderness Chronic chest pain since October 2021 Chronic headaches Fever No dysuria, polyuria Yes all other systems are reviewed and are negative [facility] Medical History Acid reflux Anemia in chronic kidney disease (CKD) Arthritis Carpal tunnel syndrome Chronic ulcer of right foot Degenerative joint disease of spine Essential hypertension Hypertension Irritable bowel syndrome Leukocytosis Microcytic hypochromic anemia Obesity Osteomyelitis Osteoporosis PAD (peripheral artery disease) Peripheral neuropathy Peripheral vascular disease Prolapsed uterus Rectal prolapse Retinopathy Toe ulcer due to DM Family History Maternal Grandmother Diabetes Maternal Grandfather Heart disease Cancer of unknown origin Mother HTN (hypertension) Paternal Uncle Thalassemia Surgical History H/O dilation and curettage Social History Household Members: Children Household Members Other:: 4 Housing: Apartment Are you a primary child care cook to a significant other at home: No Do you presently have visiting nurse or other home services: No Unable to assess alcohol history related to: Unknown Alcohol intake: never Patient Tobacco Use Status: Never used Tobacco Second Hand Smoke Exposure: No Use of substances other than those prescribed or required for medical reasons: Unknown Have you been hit, kicked, punched, or otherwise hurt by someone within the past year? If so, by whom?: No Do you feel safe in your current relationship?: Yes Is there a partner from a previous relationship who is making you feel unsafe now?: No Are you made to feel afraid or neglected: No Advance Directives: No Advance Directives Information Provided: No Do you have thoughts of harming others: None Do you have a plan to hurt others: No Plan Recently lost weight without trying: Unsure Nutrition Risks: No Nutritional Risk Patient : No : No Poor oral hygiene: No service: No Current occupational status: disabled Meds Allergies Allergy/AdvReac Type Severity Reaction Status Date / Time No Known Allergies Allergy Unknown UNKNOWN Verified 08/15/22 14:25 [NO KNOWN ALLERGIES] Active Medications: Current Medications Acetaminophen (Acetaminophen 325 Mg Tablet) 650 mg PO Q6H PRN PRN Reason: Pain, Mild (Pain Scale 1-3) Dextrose (Dextrose 50 % 25 Gm/50 Ml Syringe) 25 gm IVPUSH Q15M PRN; Protocol PRN Reason: per Hypoglycemia Standing Ord. Docusate Sodium (Docusate Sodium 100 Mg Capsule) 100 mg PO DAILY PRN PRN Reason: Constipation Enoxaparin Sodium (Enoxaparin Sodium 40 Mg/0.4 Ml Syringe) 40 mg SUBCUT Q24H [facility] Glucose (Glucose Gel 15 Gm Gel..Gram.) 15 gm PO Q15M PRN; Protocol PRN Reason: per Hypoglycemia Standing Ord. Ceftriaxone Sodium 1 gm/ (Sodium Chloride) 50 mls @ 100 mls/hr IV Q24H [facility] Insulin Human Lispro (Insulin Lispro 100 Unit/Ml 3 Ml Vial) 0 unit SUBCUT QIDACHS [facility]; Protocol Ondansetron HCl (Ondansetron Hcl 4 Mg/2 Ml Vial) 4 mg IVPUSH Q8H PRN PRN Reason: Nausea and Vomiting Pharmacy Consult (Consult Rx Perform Med Rec) 1 each MISCELLANE ONCE PRN PRN Reason: Consult order Pharmacy Consult (Consult Rx Vancomycin Dosing) 1 each MISCELLANE DAILY PRN PRN Reason: Consult order Sodium Chloride (0.9 % Sodium Chloride Flush 3 Ml Syringe) 3 ml IVFLUSH QSHIFT [facility] Home Medications Medication Instructions Recorded Confirmed Last Taken Type aspirin 81 mg tablet,delayed 1 tab PO DAILY 07/02/21 08/15/22 08/14/22 History release cholecalciferol (vitamin D3) 25 1 tab PO DAILY 07/02/21 08/15/22 08/14/22 History mcg (1,000 unit) tablet metformin 1,000 mg tablet 1 tab PO BID 07/02/21 08/15/22 08/14/22 History blood sugar diagnostic (FreeStyle #10 ea 09/18/21 07/11/22 05/11/22 History Lite Strips) lancets 33 gauge (TRUEplus Lancets) #100 ea 09/18/21 07/11/22 05/11/22 History pen needle, diabetic 31 gauge x #1,200 ea 09/18/21 07/11/22 05/11/22 History 5/16 (UltiCare Pen Needle) atorvastatin 40 mg tablet 40 mg PO DAILY 06/13/22 08/15/22 08/14/22 History empagliflozin 25 mg tablet 25 mg PO DAILY 06/13/22 08/15/22 08/14/22 History (Jardiance) ezetimibe 10 mg tablet 10 mg PO DAILY 12/01/2608/15/22 08/14/22 History pantoprazole 40 mg tablet,delayed 40 mg PO BEDTIME 06/13/22 08/15/22 08/14/22 History release pioglitazone 15 mg tablet 15 mg PO DAILY 06/13/22 08/15/22 08/14/22 History insulin glargine 100 unit/mL (3 40 unit subcut DAILY 08/15/22 08/15/22 08/14/22 History mL) subcutaneous pen (Lantus Solostar U-100 Insulin) lidocaine 5 % topical patch 1 patch topical DAILY 08/15/22 08/15/22 08/14/22 History magnesium oxide 400 mg (241.3 mg 400 mg PO TID 08/15/22 08/15/22 08/14/22 History magnesium) tablet Physical Exam Vital Signs and Narrative: Vital Signs: Last Vital Signs Temp 97.7 F 08/15/22 18:04 Pulse 111 H 08/15/22 18:04 Resp 15 08/15/22 18:04 BP 138/64 08/15/22 18:04 Pulse Ox 96 08/15/22 18:04 O2 Del Method 08/15/22 18:04 BMI result Body Mass Index 34.3 Constitutional: Alert, in no acute distress. Mental Status: Oriented to person, place and time. Eyes: Pupils are equal, round, and reactive to light. Ear, Nose, and Throat: Oropharynx clear, mucous membranes moist. Ears and nose without deformities. Trachea midline. Respiratory: Clear to auscultation bilaterally. No wheezing, rales, or rhonchi. Cardiovascular: S1, S2 regular. No murmurs, rubs, or gallops. Gastrointestinal: Abdomen soft, non-tender, non-distended. Normal bowel sounds. Back: Right-sided CVA tenderness. Neurologic: Cranial nerves II-XII are grossly intact. No focal neurological deficits. Moves all extremities spontaneously. Skin: No rashes or lesions noted. Musculoskeletal: No cyanosis or clubbing. Extremities: Non-pitting edema of left lower leg and foot. Left foot darkened to ankle with draining wound on fifth toe and lateral aspect of foot. See pictures below. Psychiatric: Normal mood and affect. Results Labs 08/15/22 16:09 08/15/22 16:09 Labs: Laboratory Results - last 24 hr 02/02/2708/15/22 08/15/22 14:36 14:36 16:09 MCV 59.6 L MCH 18.4 L MCHC 30.8 L RDW 18.9 H Plt Count 763 H MPV 9.7 Immature Gran % (Auto) 3.2 H Neut % (Auto) 83.5 H Lymph % (Auto) 5.2 L Jenkins % (Auto) 7.7 Eos % (Auto) 0.1 Baso % (Auto) 0.3 Lymph # (Auto) 1.2 Jenkins # (Auto) 1.8 H Eos # (Auto) 0.0 Baso # (Auto) 0.1 Abs Immat Gran (auto) 0.73 H Absolute Neuts (auto) 19.3 H Absolute Nucleated RBC 0.000 Nucleated RBC % (auto) 0.0 ESR 102 H PT INR Anion Gap Estim Creat Clear Calc Estimated GFR Random Glucose Lactic Acid Calcium Magnesium Total Bilirubin Direct Bilirubin AST ALT Alkaline Phosphatase Troponin I High Sens B-Natriuretic Peptide 233 H Total Protein Albumin Urine Color Urine Appearance Urine pH Ur Specific [place] Urine Protein Urine Glucose (UA) Urine Ketones Urine Blood Urine Nitrite Ur Leukocyte Esterase Urine RBC Urine WBC Ur Squamous Epith Cells Urine Bacteria Hyaline Casts Granular Casts Influenza Type A (PCR) Influenza Type B (PCR) RSV RNA Qual (PCR) SARS-CoV-2 RNA (RT-PCR) 08/15/22 08/15/22 08/15/22 16:09 16:09 16:09 MCV MCH MCHC RDW Plt Count MPV Immature Gran % (Auto) Neut % (Auto) Lymph % (Auto) Jenkins % (Auto) Eos % (Auto) Baso % (Auto) Lymph # (Auto) Jenkins # (Auto) Eos # (Auto) Baso # (Auto) Abs Immat Gran (auto) Absolute Neuts (auto) Absolute Nucleated RBC Nucleated RBC % (auto) ESR PT 16.7 H INR 1.4 H Anion Gap 24 H Estim Creat Clear Calc 46.0 Estimated GFR 45 Random Glucose 287 H Lactic Acid 1.1 Calcium 10.0 Magnesium 1.6 Total Bilirubin 1.6 H Direct Bilirubin 0.9 H AST 25 ALT 14 Alkaline Phosphatase 297 H Troponin I High Sens B-Natriuretic Peptide Total Protein 7.2 Albumin 3.0 L Urine Color Urine Appearance Urine pH Ur Specific [place] Urine Protein Urine Glucose (UA) Urine Ketones Urine Blood Urine Nitrite Ur Leukocyte Esterase Urine RBC Urine WBC Ur Squamous Epith Cells Urine Bacteria Hyaline Casts Granular Casts Influenza Type A (PCR) Influenza Type B (PCR) RSV RNA Qual (PCR) SARS-CoV-2 RNA (RT-PCR) 08/15/22 08/15/22 08/15/22 16:09 16:25 16:51 MCV MCH MCHC RDW Plt Count MPV Immature Gran % (Auto) Neut % (Auto) Lymph % (Auto) Jenkins % (Auto) Eos % (Auto) Baso % (Auto) Lymph # (Auto) Jenkins # (Auto) Eos # (Auto) Baso # (Auto) Abs Immat Gran (auto) Absolute Neuts (auto) Absolute Nucleated RBC Nucleated RBC % (auto) ESR PT INR Anion Gap Estim Creat Clear Calc Estimated GFR Random Glucose Lactic Acid Calcium Magnesium Total Bilirubin Direct Bilirubin AST ALT Alkaline Phosphatase Troponin I High Sens 9.1 B-Natriuretic Peptide Total Protein Albumin Urine Color Yellow Urine Appearance Cloudy Urine pH 5.5 Ur Specific [place] 1.020 Urine Protein 300 (3+) H Urine Glucose (UA) >=1000 H Urine Ketones Trace Urine Blood Small (1+) H Urine Nitrite Negative Ur Leukocyte Esterase Negative Urine RBC 0-2 Urine WBC 0-5 Ur Squamous Epith Cells 11-20 Urine Bacteria None Seen Hyaline Casts 3-5 Granular Casts Present Influenza Type A (PCR) NEGATIVE Influenza Type B (PCR) NEGATIVE RSV RNA Qual (PCR) NEGATIVE SARS-CoV-2 RNA (RT-PCR) POSITIVE A Imaging Radiologist's Impressions: Impressions Venous Duplex 08/15/22 16:43 IMPRESSION: 1. No DVT demonstrated in the left lower extremity. 2. Prominent left inguinal lymph node, nonspecific. Chest X-Ray 08/15/22 17:21 IMPRESSION: No acute cardiopulmonary findings. Foot X-Ray 08/15/22 17:21 IMPRESSION: Progressive osseous destruction and disorganization at the midfoot with increased dorsal subluxation of the midfoot bones as well as progression of the osseous erosion around the joints of the midfoot and hindfoot. Findings are consistent with progressive Charcot arthropathy and osteomyelitis. Assessment and Plan (1) Diabetic foot ulcer: Status: Acute (2) COVID-19: Status: Acute Plan Pt is a 57-year-old female with a PMH significant for Charcot foot,?PAD, IBS, CKD, HTN, insulin-dependent DM, and hx of osteomyelitis with multiple debridements who presents to the ED from hematology clinic?for evaluation of elevated temperature and WBCs. Pt will be admitted to the hospital for treatment and further evaluation of chronic diabetic foot ulcer concerning for osteomyelitis. Sepsis in the setting of Chronic diabetic foot ulcer concerning for osteomyelitis Elevated CRP, ESR, WBCs, temperature IV abx: vanco, ceftriaxone ID consult Vascular surgery consult LUIS Creatinine 1.23, above baseline of 0.90 Pt received IVF in ED Monitor labs Left CVA tenderness CT of abdomen/pelvis w/o contrast d/t LUIS found evidence of perinephric stranding that may be chronic UA negative for UTI, pt denies dysuria and polyuria Etiology more likely d/t chronic perinephric stranding, less likely pyelonephritis Pt will still be covered with IV abx for osteomyelitis Chest pain, chronic Pt complains of persistent chest pain since last October Has an appointment at [facility] cardiology on Saturday for imaging COVID infection Pt currently asymptomatic Monitor respiratory status Admit with airborne/contact precautions Microcytic anemia, chronic H&H 9.1/29.5, near baseline MCV 59.6 Pt seen at hematology for Procrit shot, last seen today F/U outpatient at hematology clinic Insulin-dependent DM Hold home meds SSI, lantus Full Code Attending:?Dr. Davis DVT Prophylaxis: Lovenox Pt will require a hospitalization of at least two nights for treatment of?chronic diabetic foot ulcer concerning for osteomyelitis with IV abx. Time Spent With Patient Time: Total time managing care of this patient today ____ minutes. Quality Stroke Does the patient have a stroke diagnosis?: No VTE Prior VTE?: No VTE Risk Level:: Medical - moderate - high VTE Device Contraindication: Treatment Not Indicated VTE Drug Contraindication: N/A - Med Ordered
[2022-08-15 19:47] LABS: Glucose, Whole Blood 474 mg/dL (60-115)
[2022-08-15 20:16] LABS: Troponin-I High Sensitivity 8.3 ng/L (<3.5-17.0)
[2022-08-15] MEDS: Omeprazole 20 MG CAPSULE.DR PO (20:47)
[2022-08-15] MEDS: Enoxaparin Sodium 40 MG/0.4 ML SYRINGE SUBCUT (20:48)
[2022-08-15] MEDS: cefTRIAXone sodium 1 GM in 0.9 % Sodium Chloride 50 ML IV (20:48)
[2022-08-15] MEDS: Insulin Lispro 100 UNIT/ML 3 ML VIAL SUBCUT (20:49)
[2022-08-15] MEDS: Insulin Lispro 100 UNIT/ML 3 ML VIAL 10 UNIT SUBCUT ×2 (20:52→21:57)
[2022-08-15] MEDS: Magnesium Oxide 400 MG TABLET PO (21:00)
--- NOTE | 2022-08-15 21:00 | PC.NURSE ---
magniseium oxide not scanning. Manual scanned in
[2022-08-15 21:46] LABS: Glucose, Whole Blood 540 mg/dL (60-115)
[2022-08-16] VITALS (9 sets, daily range): BP systolic 130–166; BP diastolic 59–70; PULSE 60–114; RESP 14–20; TEMP 36.2–37.5; O2SAT 93–98
[2022-08-16 00:44] LABS: Glucose, Whole Blood 119 mg/dL (60-115)
[2022-08-16] MEDS: 0.9 % Sodium Chloride Flush 3 ML SYRINGE IVFLUSH ×4 (01:45→22:07)
[2022-08-16 03:56] LABS: Glucose, Whole Blood 111 mg/dL (60-115)
[2022-08-16] MEDS: Acetaminophen 325 MG TABLET 650 MG PO (04:43)
[2022-08-16 07:01] LABS: Hematocrit 26.5 % (37.0-47.0); Hemoglobin 8.2 g/dl (12.0-16.0); Mean Corpuscular HGB Conc 30.9 g/dl (31.0-35.0); Mean Corpuscular Hemoglobin 18.4 pg (27.0-33.0); Mean Platelet Volume 9.1 fL (9.4-12.3); Platelet Count 816 X10*3/uL (160-400); Red Blood Count 4.45 X10*6/uL (4.20-5.50); Red Cell Distribution Width 17.8 % (11.0-16.0); White Blood Count 23.9 X10*3/uL (4.8-10.8)
[2022-08-16 07:13] LABS: Mean Corpuscular Volume 59.6 fL (80.0-98.0)
[2022-08-16 07:40] LABS: Blood Urea Nitrogen 26 mg/dL (9-16); Calcium 9.2 mg/dL (8.4-10.2); Creatinine Clr Calc Pharmacy 65.8; Estimated Glomerular Filt Rate > 60; Glucose Random 182 mg/dL (60-115)
[2022-08-16 08:02] LABS: Glucose, Whole Blood 178 mg/dL (60-115)
[2022-08-16 08:47] LABS: Anion Gap 18 (12-20); Carbon Dioxide 19 mmol/L (22-29); Chloride 99 mmol/L (96-108); Sodium 133 mmol/L (135-145)
[2022-08-16] MEDS: Lidocaine 4 % Patch ADH..PATCH 1 PATCH TRANSDERMA (09:58)
[2022-08-16] MEDS: Insulin Lispro 100 UNIT/ML 3 ML VIAL SUBCUT ×4 (09:59→21:28)
[2022-08-16] MEDS: Aspirin Enteric Coated 81 MG TABLET.DR PO (10:00)
[2022-08-16] MEDS: Ezetimibe 10 MG TABLET PO (10:00)
[2022-08-16] MEDS: Insulin Glargine,Hum.rec.anlog 100 UNIT/ML 10 ML VIAL 28 UNIT SUBCUT (10:00)
[2022-08-16] MEDS: Potassium Chloride Packet 20 MEQ PACKET 40 MEQ PO (10:00)
[2022-08-16] MEDS: amLODIPine Besylate 5 MG TABLET PO (10:01)
[2022-08-16] MEDS: Empagliflozin 25 MG TABLET PO (10:01)
[2022-08-16] MEDS: Metoprolol Succinate ER 50 MG TAB.ER.24H PO (10:01)
[2022-08-16] MEDS: Atorvastatin Calcium 40 MG TABLET PO (10:01)
[2022-08-16] MEDS: Cholecalciferol (Vitamin D3) 25 MCG TABLET PO (10:01)
[2022-08-16] MEDS: Folic Acid 1 MG TABLET PO (10:02)
--- NOTE | 2022-08-16 10:15 | PM.CNGS ---
History of Present Illness Consult details Consult date: 08/16/22 Reason for consult: wound care Narrative: Very complex 57-year-old female presents for nonhealing left foot ulcer. She was actually seen by a Hematology-Oncology and was discovered to have an extremely high white count. At that time she was noted to have this diabetic foot ulcer which had significant drainage. She was brought to the hospital on 6 squint Kamilla admitted. At that time she was also found to be COVID positive as well. She now presents to us for vascular evaluation. Review of Systems Review of Systems: Yes all other systems are reviewed and are negative Constitutional: Constitutional: Reports no additional constitutional complaints ENT: Reports Normal hearing present Cardiovascular: Cardiovascular: Denies chest pain, Denies chest pain at rest, Denies chest pain with activity and Denies pedal edema Respiratory: Respiratory: Denies cough Gastrointestinal: Gastrointestinal: Denies abdominal pain Musculoskeletal: Musculoskeletal: Denies abnormal gait, Denies muscle cramps and Denies radiating pain into limb Integumentary/Breasts: Skin/Breast: Denies skin ulcer and Denies wounds Neurologic: Reports Normal hearing present and Denies abnormal gait Psychiatric: Psychiatric: Reports no additional psychiatric complaints [facility] Past Medical History Medical History Acid reflux Anemia in chronic kidney disease (CKD) Arthritis Carpal tunnel syndrome Chronic ulcer of right foot Degenerative joint disease of spine Essential hypertension Hypertension Irritable bowel syndrome Leukocytosis Microcytic hypochromic anemia Obesity Osteomyelitis Osteoporosis PAD (peripheral artery disease) Peripheral neuropathy Peripheral vascular disease Prolapsed uterus Rectal prolapse Retinopathy Toe ulcer due to DM Family History Family History Maternal Grandmother Diabetes Maternal Grandfather Heart disease Cancer of unknown origin Mother HTN (hypertension) Paternal Uncle Thalassemia Surgical History Surgical History H/O dilation and curettage Social History Social History Household Members: Children Household Members Other:: 4 Housing: Apartment Are you a primary hospice spiritual care coordinator to a significant other at home: No Do you presently have visiting nurse or other home services: No Unable to assess alcohol history related to: Unknown Alcohol intake: never Patient Tobacco Use Status: Never used Tobacco Second Hand Smoke Exposure: No Use of substances other than those prescribed or required for medical reasons: Unknown Have you been hit, kicked, punched, or otherwise hurt by someone within the past year? If so, by whom?: No Do you feel safe in your current relationship?: Yes Is there a partner from a previous relationship who is making you feel unsafe now?: No Are you made to feel afraid or neglected: No Advance Directives: No Advance Directives Information Provided: No Do you have thoughts of harming others: None Do you have a plan to hurt others: No Plan Recently lost weight without trying: Unsure Nutrition Risks: No Nutritional Risk Patient : No : No Poor oral hygiene: No service: No Current occupational status: disabled [employer] Allergies Allergy/AdvReac Type Severity Reaction Status Date / Time No Known Allergies Allergy Unknown UNKNOWN Verified 08/15/22 14:25 [NO KNOWN ALLERGIES] Active Medications: Current Medications Acetaminophen (Acetaminophen 325 Mg Tablet) 650 mg PO Q6H PRN PRN Reason: Pain, Mild (Pain Scale 1-3) Last Admin: 08/16/22 04:43 Dose: 650 mg Amlodipine Besylate (Amlodipine Besylate 5 Mg Tablet) 5 mg PO DAILY [facility]; Protocol Aspirin (Aspirin Enteric Coated 81 Mg Tablet.Dr) 81 mg PO DAILY [facility] Atorvastatin Calcium (Atorvastatin Calcium 40 Mg Tablet) 40 mg PO DAILY [facility] Dextrose (Dextrose 50 % 25 Gm/50 Ml Syringe) 25 gm IVPUSH Q15M PRN; Protocol PRN Reason: per Hypoglycemia Standing Ord. Docusate Sodium (Docusate Sodium 100 Mg Capsule) 100 mg PO DAILY PRN PRN Reason: Constipation Ezetimibe (Ezetimibe 10 Mg Tablet) 10 mg PO DAILY [facility] Empagliflozin (Empagliflozin 25 Mg Tablet) 25 mg PO DAILY [facility] Enoxaparin Sodium (Enoxaparin Sodium 40 Mg/0.4 Ml Syringe) 40 mg SUBCUT Q24H [facility] Last Admin: 08/15/22 20:48 Dose: 40 mg Folic Acid (Folic Acid 1 Mg Tablet) 1 mg PO DAILY [facility] Glucose (Glucose Gel 15 Gm Gel..Gram.) 15 gm PO Q15M PRN; Protocol PRN Reason: per Hypoglycemia Standing Ord. Ceftriaxone Sodium 1 gm/ (Sodium Chloride) 50 mls @ 100 mls/hr IV Q24H [facility] Last Infusion: 08/15/22 22:17 Dose: Infused Vancomycin HCl 1,000 mg/ (Sodium Chloride) 270 mls @ 270 mls/hr IV Q24H [facility] Insulin Glargine (Insulin Glargine,Hum.Rec.Anlog 100 Unit/Ml 10 Ml Vial) 28 unit SUBCUT DAILY [facility] Insulin Human Lispro (Insulin Lispro 100 Unit/Ml 3 Ml Vial) 0 unit SUBCUT QIDACHS [facility]; Protocol Last Admin: 08/15/22 20:49 Dose: 10 unit Lidocaine (Lidocaine 4 % Patch Adh..Patch) 1 patch TRANSDERMA DAILY [facility] Magnesium Oxide (Magnesium Oxide 400 Mg Tablet) 400 mg PO TID [facility] Last Admin: 08/15/22 21:00 Dose: 400 mg Metoprolol Succinate (Metoprolol Succinate Er 50 Mg Tab.Er.24h) 50 mg PO DAILY [facility]; Protocol Omeprazole (Omeprazole 20 Mg Capsule.Dr) 20 mg PO BEDTIME [facility] Last Admin: 08/15/22 20:47 Dose: 20 mg Ondansetron HCl (Ondansetron Hcl 4 Mg/2 Ml Vial) 4 mg IVPUSH Q8H PRN PRN Reason: Nausea and Vomiting Pharmacy Consult (Consult Rx Perform Med Rec) 1 each MISCELLANE ONCE PRN PRN Reason: Consult order Pharmacy Consult (Consult Rx Vancomycin Dosing) 1 each MISCELLANE DAILY PRN PRN Reason: Consult order Sodium Chloride (0.9 % Sodium Chloride Flush 3 Ml Syringe) 3 ml IVFLUSH QSHIFT [facility] Last Admin: 08/16/22 01:45 Dose: 3 ml Vitamin D (Cholecalciferol (Vitamin D3) 25 Mcg Tablet) 25 mcg PO DAILY [facility] Home Medications Medication Instructions Recorded Confirmed Last Taken Type aspirin 81 mg tablet,delayed 1 tab PO DAILY 07/02/21 08/15/22 08/14/22 History release cholecalciferol (vitamin D3) 25 1 tab PO DAILY 07/02/21 08/15/22 08/14/22 History mcg (1,000 unit) tablet metformin 1,000 mg tablet 1 tab PO BID 07/02/21 08/15/22 08/14/22 History blood sugar diagnostic (FreeStyle #10 ea 09/18/21 07/11/22 05/11/22 History Lite Strips) lancets 33 gauge (TRUEplus Lancets) #100 ea 09/18/21 07/11/22 05/11/22 History pen needle, diabetic 31 gauge x #1,200 ea 09/18/21 07/11/22 05/11/22 History 5/16 (UltiCare Pen Needle) atorvastatin 40 mg tablet 40 mg PO DAILY 06/13/22 08/15/22 08/14/22 History empagliflozin 25 mg tablet 25 mg PO DAILY 06/13/22 08/15/22 08/14/22 History (Jardiance) ezetimibe 10 mg tablet 10 mg PO DAILY 06/13/22 08/15/22 08/14/22 History pantoprazole 40 mg tablet,delayed 40 mg PO BEDTIME 06/13/22 08/15/22 08/14/22 History release pioglitazone 15 mg tablet 15 mg PO DAILY 06/13/22 08/15/22 08/14/22 History insulin glargine 100 unit/mL (3 40 unit subcut DAILY 08/15/22 08/15/22 08/14/22 History mL) subcutaneous pen (Lantus Solostar U-100 Insulin) lidocaine 5 % topical patch 1 patch topical DAILY 08/15/22 08/15/22 08/14/22 History magnesium oxide 400 mg (241.3 mg 400 mg PO TID 08/15/22 08/15/22 08/14/22 History magnesium) tablet Physical Exam Vital Signs: Vital Signs: Last Vital Signs Temp 97.2 F 08/16/22 08:00 Pulse 87 08/16/22 08:00 Resp 18 08/16/22 08:00 BP 146/68 H 08/16/22 08:00 Pulse Ox 98 08/16/22 08:00 O2 Del Method 08/16/22 08:00 BMI result Body Mass Index 34.3 Const: General: cooperative, healthy appearing and comfortable Orientation/consciousness: oriented to person, oriented to place and oriented to time HEENT: Head: Yes normal to inspection Neck: Neck: Yes normal visual inspection Carotids: no bruits Chest: Chest palpation & inspection: normal inspection of the chest Resp: Effort & Inspection: normal respiratory effort and able to speak in complete sentences Auscultation: clear to auscultation bilaterally, no crackles, no rales, no rhonchi and no wheezes Cardio: Rate: regular rate Rhythm: regular rhythm Heart sounds: S1 normal heart sound present and S2 normal heart sound present Bruits: no carotid bruits Peripheral pulses: dorsalis pedis present (Bilateral DP signals) GI: Inspection: Yes normal to inspection Skin: Other: Left foot lateral 4th and 5th toe are dusky drainage from open wound on dorsum and plantar aspects significant +2 edema. Foul odor. No fluctuant pockets noted Wounds: wounds noted (Left foot) Hair: normal Neuro: General: oriented to person, oriented to place and oriented to time Cranial nerves: Yes CN's II-XII intact bilaterally and Yes Normal hearing present Cognition (Neuro): normal cognition Motor exam (neuro): 5/5 motor strength present throughout Extrem: Other: venous exam: No significant superficial varicosities or spider telangiectasias, minimal edema General: No clubbing, No cyanosis and No edema Psych: Appearance: grossly normal Mental Status: mental status grossly normal Speech and movement: Normal speech and movement present Results Labs 08/16/22 06:42 08/16/22 06:42 Labs: Abnormal lab results 08/15/22 08/15/22 08/15/22 Range/Units 14:36 14:36 16:09 WBC 23.1 H (4.8-10.8) X10*3/uL Hgb 9.1 L (12.0-16.0) g/dl Hct 29.5 L (37.0-47.0) % MCV 59.6 L (80.0-98.0) fL MCH 18.4 L (27.0-33.0) pg MCHC 30.8 L (31.0-35.0) g/dl RDW 18.9 H (11.0-16.0) % Plt Count 763 H (160-400) X10*3/uL MPV (9.4-12.3) fL Immature Gran % (Auto) 3.2 H (0.0-0.4) % Neut % (Auto) 83.5 H (45-73) % Lymph % (Auto) 5.2 L (20-40) % Johnston # (Auto) 1.8 H (0.1-1.2) X10*3/uL Abs Immat Gran (auto) 0.73 H (0.00-0.03) X10*3/uL Absolute Neuts (auto) 19.3 H (2.0-8.3) x10*3/uL ESR 102 H (0-20) MM/HR PT (10.0-13.1) SEC INR (0.9-1.1) Sodium (135-145) mmol/L Potassium (3.3-5.1) mmol/L Carbon Dioxide (22-29) mmol/L Anion Gap (12-20) BUN (9-16) mg/dL POC Glucose (60-115) mg/dL Random Glucose (60-115) mg/dL Total Bilirubin (0.0-1.0) mg/dL Direct Bilirubin (0.0-0.5) mg/dL Alkaline Phosphatase (39-117) U/L B-Natriuretic Peptide 233 H (<100) pg/mL Albumin (3.5-5.0) g/dL Urine Protein (Neg-Trace) mg/dL Urine Glucose (UA) (Negative) mg/dL Urine Blood (Negative) SARS-CoV-2 RNA (RT-PCR) (Negative) 08/15/22 08/15/22 08/15/22 Range/Units 16:09 16:09 16:25 WBC (4.8-10.8) X10*3/uL Hgb (12.0-16.0) g/dl Hct (37.0-47.0) % MCV (80.0-98.0) fL MCH (27.0-33.0) pg MCHC (31.0-35.0) g/dl RDW (11.0-16.0) % Plt Count (160-400) X10*3/uL MPV (9.4-12.3) fL Immature Gran % (Auto) (0.0-0.4) % Neut % (Auto) (45-73) % Lymph % (Auto) (20-40) % [place] # (Auto) (0.1-1.2) X10*3/uL Abs Immat Gran (auto) (0.00-0.03) X10*3/uL Absolute Neuts (auto) (2.0-8.3) x10*3/uL ESR (0-20) MM/HR PT 16.7 H (10.0-13.1) SEC INR 1.4 H (0.9-1.1) Sodium 134 L (135-145) mmol/L Potassium (3.3-5.1) mmol/L Carbon Dioxide 18 L (22-29) mmol/L Anion Gap 24 H (12-20) BUN 27 H (9-16) mg/dL POC Glucose (60-115) mg/dL Random Glucose 287 H (60-115) mg/dL Total Bilirubin 1.6 H (0.0-1.0) mg/dL Direct Bilirubin 0.9 H (0.0-0.5) mg/dL Alkaline Phosphatase 297 H (39-117) U/L B-Natriuretic Peptide (<100) pg/mL Albumin 3.0 L (3.5-5.0) g/dL Urine Protein (Neg-Trace) mg/dL Urine Glucose (UA) (Negative) mg/dL Urine Blood (Negative) SARS-CoV-2 RNA (RT-PCR) POSITIVE A (Negative) 08/15/22 08/15/22 08/15/22 Range/Units 16:51 19:38 21:40 WBC (4.8-10.8) X10*3/uL Hgb (12.0-16.0) g/dl Hct (37.0-47.0) % MCV (80.0-98.0) fL MCH (27.0-33.0) pg MCHC (31.0-35.0) g/dl RDW (11.0-16.0) % Plt Count (160-400) X10*3/uL MPV (9.4-12.3) fL Immature Gran % (Auto) (0.0-0.4) % Neut % (Auto) (45-73) % Lymph % (Auto) (20-40) % Johnston # (Auto) (0.1-1.2) X10*3/uL Abs Immat Gran (auto) (0.00-0.03) X10*3/uL Absolute Neuts (auto) (2.0-8.3) x10*3/uL ESR (0-20) MM/HR PT (10.0-13.1) SEC INR (0.9-1.1) Sodium (135-145) mmol/L Potassium (3.3-5.1) mmol/L Carbon Dioxide (22-29) mmol/L Anion Gap (12-20) BUN (9-16) mg/dL POC Glucose 474 H* 540 H* (60-115) mg/dL Random Glucose (60-115) mg/dL Total Bilirubin (0.0-1.0) mg/dL Direct Bilirubin (0.0-0.5) mg/dL Alkaline Phosphatase (39-117) U/L B-Natriuretic Peptide (<100) pg/mL Albumin (3.5-5.0) g/dL Urine Protein 300 (3+) H (Neg-Trace) mg/dL Urine Glucose (UA) >=1000 H (Negative) mg/dL Urine Blood Small (1+) H (Negative) SARS-CoV-2 RNA (RT-PCR) (Negative) 08/16/22 08/16/22 08/16/22 Range/Units 00:34 06:42 06:42 WBC 23.9 H (4.8-10.8) X10*3/uL Hgb 8.2 L (12.0-16.0) g/dl Hct 26.5 L (37.0-47.0) % MCV 59.6 L (80.0-98.0) fL MCH 18.4 L (27.0-33.0) pg MCHC 30.9 L (31.0-35.0) g/dl RDW 17.8 H (11.0-16.0) % Plt Count 816 H (160-400) X10*3/uL MPV 9.1 L (9.4-12.3) fL Immature Gran % (Auto) (0.0-0.4) % Neut % (Auto) (45-73) % Lymph % (Auto) (20-40) % Johnston # (Auto) (0.1-1.2) X10*3/uL Abs Immat Gran (auto) (0.00-0.03) X10*3/uL Absolute Neuts (auto) (2.0-8.3) x10*3/uL ESR (0-20) MM/HR PT (10.0-13.1) SEC INR (0.9-1.1) Sodium 133 L (135-145) mmol/L Potassium 3.0 L (3.3-5.1) mmol/L Carbon Dioxide 19 L (22-29) mmol/L Anion Gap (12-20) BUN 26 H (9-16) mg/dL POC Glucose 119 H (60-115) mg/dL Random Glucose 182 H (60-115) mg/dL Total Bilirubin (0.0-1.0) mg/dL Direct Bilirubin (0.0-0.5) mg/dL Alkaline Phosphatase (39-117) U/L B-Natriuretic Peptide (<100) pg/mL Albumin (3.5-5.0) g/dL Urine Protein (Neg-Trace) mg/dL Urine Glucose (UA) (Negative) mg/dL Urine Blood (Negative) SARS-CoV-2 RNA (RT-PCR) (Negative) 08/16/22 Range/Units 07:44 WBC (4.8-10.8) X10*3/uL Hgb (12.0-16.0) g/dl Hct (37.0-47.0) % MCV (80.0-98.0) fL MCH (27.0-33.0) pg MCHC (31.0-35.0) g/dl RDW (11.0-16.0) % Plt Count (160-400) X10*3/uL MPV (9.4-12.3) fL Immature Gran % (Auto) (0.0-0.4) % Neut % (Auto) (45-73) % Lymph % (Auto) (20-40) % Johnston # (Auto) (0.1-1.2) X10*3/uL Abs Immat Gran (auto) (0.00-0.03) X10*3/uL Absolute Neuts (auto) (2.0-8.3) x10*3/uL ESR (0-20) MM/HR PT (10.0-13.1) SEC INR (0.9-1.1) Sodium (135-145) mmol/L Potassium (3.3-5.1) mmol/L Carbon Dioxide (22-29) mmol/L Anion Gap (12-20) BUN (9-16) mg/dL POC Glucose 178 H (60-115) mg/dL Random Glucose (60-115) mg/dL Total Bilirubin (0.0-1.0) mg/dL Direct Bilirubin (0.0-0.5) mg/dL Alkaline Phosphatase (39-117) U/L B-Natriuretic Peptide (<100) pg/mL Albumin (3.5-5.0) g/dL Urine Protein (Neg-Trace) mg/dL Urine Glucose (UA) (Negative) mg/dL Urine Blood (Negative) SARS-CoV-2 RNA (RT-PCR) (Negative) Short CBC 08/15/22 08/16/22 Range/Units 16:09 06:42 WBC 23.1 H 23.9 H (4.8-10.8) X10*3/uL Hgb 9.1 L 8.2 L (12.0-16.0) g/dl Hct 29.5 L 26.5 L (37.0-47.0) % Plt Count 763 H 816 H (160-400) X10*3/uL BMP 08/15/22 08/16/22 16:09 06:42 Sodium 134 L 133 L Potassium 3.7 3.0 L Chloride 96 99 Carbon Dioxide 18 L 19 L BUN 27 H 26 H Creatinine 1.23 0.86 Calcium 10.0 9.2 D Liver Function 08/15/22 Range/Units 16:09 Total Bilirubin 1.6 H (0.0-1.0) mg/dL Direct Bilirubin 0.9 H (0.0-0.5) mg/dL AST 25 (5-31) U/L ALT 14 (0-31) U/L Alkaline Phosphatase 297 H (39-117) U/L Albumin 3.0 L (3.5-5.0) g/dL Urine 08/15/22 Range/Units 16:51 Urine Color Yellow Urine Appearance Cloudy Urine pH 5.5 (5.0-9.0) Ur Specific [place] 1.020 (1.005-1.025) Urine Protein 300 (3+) H (Neg-Trace) mg/dL Urine Glucose (UA) >=1000 H (Negative) mg/dL All other labs normal. Assessment and Plan (1) Diabetic foot ulcer: Status: Acute Plan In short patient has this recurrent left foot diabetic ulcer. The concern is the underlying infection and elevated white count. She is being worked up for multiple sources right now. I do have a high suspicion that the leg is the source. She has multiple attempts at conservative treatment including antibiotics on several occasions. She has resisted amputation in the past. She reports that she had seen Dr. Quijano who at that time recommended conservative management. Unfortunately I do not believe this is a salvage type situation. I do feel that a below-knee amputation will be indicated on that leg. This was related to the patient. The current time she is being worked up for other sources of infection. If no improvement will require amputation of that leg. Thank you for allowing us to assist in her care. Time Spent With Patient Time: Total time managing care of this patient today ____ minutes. Procedures Date of Service Date of Service: 08/16/22
[2022-08-16] MEDS: Magnesium Oxide 400 MG TABLET PO ×3 (10:16→21:32)
[2022-08-16 11:38] LABS: Glucose, Whole Blood 298 mg/dL (60-115)
--- NOTE | 2022-08-16 12:45 | MHC.CM.PN ---
Patient is Covid positive; CM spoke with her over the phone at [phone] and addressed IMM with her. Patient lives alone in an apartment and she has been working with [facility] to try to establish home services. CM has initiated and will follow for dc planning. Patient has received no Covid vax and her PCP is Rosalind Cardoso.
--- NOTE | 2022-08-16 15:04 | P.PNIM_ITS ---
Subjective Subjective Date of Service: 08/16/22 Interval History: Seen and evaluated this morning Still having drainage from her left foot Reporting back pain Fever resolved Review of Systems Review of Systems: Yes all other systems are reviewed and are negative Physical Exam Vital Signs: Vital Signs: Last Vital Signs Temp 98.1 F 08/16/22 10:00 Pulse 60 08/16/22 10:00 Resp 18 08/16/22 10:00 BP 130/59 L 08/16/22 10:00 Pulse Ox 97 08/16/22 10:00 O2 Del Method 08/16/22 10:00 BMI result Body Mass Index 34.3 Const: Other: Constitutional : Awake, interactive Neck : Normal inspection, Supple Cardiovascular : RRR, no JVP, no lower extremity edema Respiratory : good bilateral air entry, no crackles, wheezes or rhonchi Gastrointestinal: soft, lax, Normal bowel sounds, Non tender Skin : Warm, Dry, the of floor chart good foot with dorsal opening and drainage covered with dressing Neurological : Alert & oriented x3, No focal deficit Objective Data Active Medications Acetaminophen (Acetaminophen 325 Mg Tablet) 650 mg PO Q6H PRN PRN Reason: Pain, Mild (Pain Scale 1-3) Last Admin: 08/16/22 04:43 Dose: 650 mg Documented By: DENNYS Amlodipine Besylate (Amlodipine Besylate 5 Mg Tablet) 5 mg PO DAILY [facility]; Protocol Last Admin: 08/16/22 10:01 Dose: 5 mg Documented By: ANIYAH Aspirin (Aspirin Enteric Coated 81 Mg Tablet.) 81 mg PO DAILY [facility] Last Admin: 08/16/22 10:00 Dose: 81 mg Documented By: ANIYAH Atorvastatin Calcium (Atorvastatin Calcium 40 Mg Tablet) 40 mg PO DAILY [facility] Last Admin: 08/16/22 10:01 Dose: 40 mg Documented By: ANIYAH Dextrose (Dextrose 50 % 25 Gm/50 Ml Syringe) 25 gm IVPUSH Q15M PRN; Protocol PRN Reason: per Hypoglycemia Standing Ord. Docusate Sodium (Docusate Sodium 100 Mg Capsule) 100 mg PO DAILY PRN PRN Reason: Constipation Ezetimibe (Ezetimibe 10 Mg Tablet) 10 mg PO DAILY [facility] Last Admin: 08/16/22 10:00 Dose: 10 mg Documented By: ANIYAH Empagliflozin (Empagliflozin 25 Mg Tablet) 25 mg PO DAILY [facility] Last Admin: 08/16/22 10:01 Dose: 25 mg Documented By: ANIYAH Enoxaparin Sodium (Enoxaparin Sodium 40 Mg/0.4 Ml Syringe) 40 mg SUBCUT Q24H [facility] Last Admin: 08/15/22 20:48 Dose: 40 mg Documented By: MONALISA Folic Acid (Folic Acid 1 Mg Tablet) 1 mg PO DAILY [facility] Last Admin: 08/16/22 10:02 Dose: 1 mg Documented By: ANIYAH Glucose (Glucose Gel 15 Gm Gel..Gram.) 15 gm PO Q15M PRN; Protocol PRN Reason: per Hypoglycemia Standing Ord. Ceftriaxone Sodium 1 gm/ (Sodium Chloride) 50 mls @ 100 mls/hr IV Q24H [facility] Last Infusion: 08/15/22 22:17 Dose: 0 mls/hr Documented By: DENNYS Vancomycin HCl 1,000 mg/ (Sodium Chloride) 270 mls @ 270 mls/hr IV Q24H [facility] Insulin Glargine (Insulin Glargine,Hum.Rec.Anlog 100 Unit/Ml 10 Ml Vial) 28 unit SUBCUT DAILY [facility] Last Admin: 08/16/22 10:00 Dose: 28 unit Documented By: ANIYAH Insulin Human Lispro (Insulin Lispro 100 Unit/Ml 3 Ml Vial) 0 unit SUBCUT QIDACHS [facility]; Protocol Last Admin: 08/16/22 12:58 Dose: 4 unit Documented By: ANIYAH Lidocaine (Lidocaine 4 % Patch Adh..Patch) 1 patch TRANSDERMA DAILY [facility] Last Admin: 08/16/22 09:58 Dose: 1 patch Documented By: ANIYAH Magnesium Oxide (Magnesium Oxide 400 Mg Tablet) 400 mg PO TID [facility] Last Admin: 08/16/22 10:16 Dose: 400 mg Documented By: ANIAYH Metoprolol Succinate (Metoprolol Succinate Er 50 Mg Tab.Er.24h) 50 mg PO DAILY [facility]; Protocol Last Admin: 08/16/22 10:01 Dose: 50 mg Documented By: ANIYAH Omeprazole (Omeprazole 20 Mg Capsule.Dr) 20 mg PO BEDTIME [facility] Last Admin: 08/15/22 20:47 Dose: 20 mg Documented By: MONALISA Ondansetron HCl (Ondansetron Hcl 4 Mg/2 Ml Vial) 4 mg IVPUSH Q8H PRN PRN Reason: Nausea and Vomiting Oxycodone HCl (Oxycodone Hcl Immed Release 5 Mg Tablet) 2.5 mg PO Q4H PRN PRN Reason: Pain, Severe (Pain Scale 7-10) Pharmacy Consult (Consult Rx Perform Med Rec) 1 each MISCELLANE ONCE PRN PRN Reason: Consult order Pharmacy Consult (Consult Rx Vancomycin Dosing) 1 each MISCELLANE DAILY PRN PRN Reason: Consult order Sodium Chloride (0.9 % Sodium Chloride Flush 3 Ml Syringe) 3 ml IVFLUSH QSHIFT [facility] Last Admin: 08/16/22 10:32 Dose: 3 ml Documented By: ANIYAH Vitamin D (Cholecalciferol (Vitamin D3) 25 Mcg Tablet) 25 mcg PO DAILY [facility] Last Admin: 08/16/22 10:01 Dose: 25 mcg Documented By: ANIYAH Labs 08/16/22 06:42 08/16/22 06:42 Labs: Laboratory Results - last 24 hr 08/15/22 08/15/22 08/15/22 14:36 14:36 16:09 MCV 59.6 L MCH 18.4 L MCHC 30.8 L RDW 18.9 H Plt Count 763 H MPV 9.7 Immature Gran % (Auto) 3.2 H Neut % (Auto) 83.5 H Lymph % (Auto) 5.2 L [place] % (Auto) 7.7 Eos % (Auto) 0.1 Baso % (Auto) 0.3 Lymph # (Auto) 1.2 [place] # (Auto) 1.8 H Eos # (Auto) 0.0 Baso # (Auto) 0.1 Abs Immat Gran (auto) 0.73 H Absolute Neuts (auto) 19.3 H Absolute Nucleated RBC 0.000 Nucleated RBC % (auto) 0.0 ESR 102 H PT INR Anion Gap Estim Creat Clear Calc Estimated GFR POC Glucose Random Glucose Lactic Acid Calcium Magnesium Total Bilirubin Direct Bilirubin AST ALT Alkaline Phosphatase Troponin I High Sens B-Natriuretic Peptide 233 H Total Protein Albumin Urine Color Urine Appearance Urine pH Ur Specific [place] Urine Protein Urine Glucose (UA) Urine Ketones Urine Blood Urine Nitrite Ur Leukocyte Esterase Urine RBC Urine WBC Ur Squamous Epith Cells Urine Bacteria Hyaline Casts Granular Casts Influenza Type A (PCR) Influenza Type B (PCR) RSV RNA Qual (PCR) SARS-CoV-2 RNA (RT-PCR) 08/15/22 08/15/22 08/15/22 16:09 16:09 16:09 MCV MCH MCHC RDW Plt Count MPV Immature Gran % (Auto) Neut % (Auto) Lymph % (Auto) [place] % (Auto) Eos % (Auto) Baso % (Auto) Lymph # (Auto) [place] # (Auto) Eos # (Auto) Baso # (Auto) Abs Immat Gran (auto) Absolute Neuts (auto) Absolute Nucleated RBC Nucleated RBC % (auto) ESR PT 16.7 H INR 1.4 H Anion Gap 24 H Estim Creat Clear Calc 46.0 Estimated GFR 45 POC Glucose Random Glucose 287 H Lactic Acid 1.1 Calcium 10.0 Magnesium 1.6 Total Bilirubin 1.6 H Direct Bilirubin 0.9 H AST 25 ALT 14 Alkaline Phosphatase 297 H Troponin I High Sens B-Natriuretic Peptide Total Protein 7.2 Albumin 3.0 L Urine Color Urine Appearance Urine pH Ur Specific [place] Urine Protein Urine Glucose (UA) Urine Ketones Urine Blood Urine Nitrite Ur Leukocyte Esterase Urine RBC Urine WBC Ur Squamous Epith Cells Urine Bacteria Hyaline Casts Granular Casts Influenza Type A (PCR) Influenza Type B (PCR) RSV RNA Qual (PCR) SARS-CoV-2 RNA (RT-PCR) 08/15/22 08/15/22 08/15/22 16:09 16:25 16:51 MCV MCH MCHC RDW Plt Count MPV Immature Gran % (Auto) Neut % (Auto) Lymph % (Auto) [place] % (Auto) Eos % (Auto) Baso % (Auto) Lymph # (Auto) [place] # (Auto) Eos # (Auto) Baso # (Auto) Abs Immat Gran (auto) Absolute Neuts (auto) Absolute Nucleated RBC Nucleated RBC % (auto) ESR PT INR Anion Gap Estim Creat Clear Calc Estimated GFR POC Glucose Random Glucose Lactic Acid Calcium Magnesium Total Bilirubin Direct Bilirubin AST ALT Alkaline Phosphatase Troponin I High Sens 9.1 B-Natriuretic Peptide Total Protein Albumin Urine Color Yellow Urine Appearance Cloudy Urine pH 5.5 Ur Specific [place] 1.020 Urine Protein 300 (3+) H Urine Glucose (UA) >=1000 H Urine Ketones Trace Urine Blood Small (1+) H Urine Nitrite Negative Ur Leukocyte Esterase Negative Urine RBC 0-2 Urine WBC 0-5 Ur Squamous Epith Cells 11-20 Urine Bacteria None Seen Hyaline Casts 3-5 Granular Casts Present Influenza Type A (PCR) NEGATIVE Influenza Type B (PCR) NEGATIVE RSV RNA Qual (PCR) NEGATIVE SARS-CoV-2 RNA (RT-PCR) POSITIVE A 08/15/22 08/15/22 08/15/22 19:38 19:39 21:40 MCV MCH MCHC RDW Plt Count MPV Immature Gran % (Auto) Neut % (Auto) Lymph % (Auto) [place] % (Auto) Eos % (Auto) Baso % (Auto) Lymph # (Auto) [place] # (Auto) Eos # (Auto) Baso # (Auto) Abs Immat Gran (auto) Absolute Neuts (auto) Absolute Nucleated RBC Nucleated RBC % (auto) ESR PT INR Anion Gap Estim Creat Clear Calc Estimated GFR POC Glucose 474 H* 540 H* Random Glucose Lactic Acid Calcium Magnesium Total Bilirubin Direct Bilirubin AST ALT Alkaline Phosphatase Troponin I High Sens 8.3 B-Natriuretic Peptide Total Protein Albumin Urine Color Urine Appearance Urine pH Ur Specific [place] Urine Protein Urine Glucose (UA) Urine Ketones Urine Blood Urine Nitrite Ur Leukocyte Esterase Urine RBC Urine WBC Ur Squamous Epith Cells Urine Bacteria Hyaline Casts Granular Casts Influenza Type A (PCR) Influenza Type B (PCR) RSV RNA Qual (PCR) SARS-CoV-2 RNA (RT-PCR) 08/16/22 08/16/22 08/16/22 00:34 03:44 06:42 MCV 59.6 L MCH 18.4 L MCHC 30.9 L RDW 17.8 H Plt Count 816 H MPV 9.1 L Immature Gran % (Auto) Neut % (Auto) Lymph % (Auto) [place] % (Auto) Eos % (Auto) Baso % (Auto) Lymph # (Auto) [place] # (Auto) Eos # (Auto) Baso # (Auto) Abs Immat Gran (auto) Absolute Neuts (auto) Absolute Nucleated RBC 0.000 Nucleated RBC % (auto) 0.0 ESR PT INR Anion Gap Estim Creat Clear Calc Estimated GFR POC Glucose 119 H 111 Random Glucose Lactic Acid Calcium Magnesium Total Bilirubin Direct Bilirubin AST ALT Alkaline Phosphatase Troponin I High Sens B-Natriuretic Peptide Total Protein Albumin Urine Color Urine Appearance Urine pH Ur Specific [place] Urine Protein Urine Glucose (UA) Urine Ketones Urine Blood Urine Nitrite Ur Leukocyte Esterase Urine RBC Urine WBC Ur Squamous Epith Cells Urine Bacteria Hyaline Casts Granular Casts Influenza Type A (PCR) Influenza Type B (PCR) RSV RNA Qual (PCR) SARS-CoV-2 RNA (RT-PCR) 08/16/22 08/16/22 08/16/22 06:42 07:44 11:26 MCV MCH MCHC RDW Plt Count MPV Immature Gran % (Auto) Neut % (Auto) Lymph % (Auto) [place] % (Auto) Eos % (Auto) Baso % (Auto) Lymph # (Auto) [place] # (Auto) Eos # (Auto) Baso # (Auto) Abs Immat Gran (auto) Absolute Neuts (auto) Absolute Nucleated RBC Nucleated RBC % (auto) ESR PT INR Anion Gap 18 Estim Creat Clear Calc 65.8 Estimated GFR > 60 POC Glucose 178 H 298 H Random Glucose 182 H Lactic Acid Calcium 9.2 D Magnesium Total Bilirubin Direct Bilirubin AST ALT Alkaline Phosphatase Troponin I High Sens B-Natriuretic Peptide Total Protein Albumin Urine Color Urine Appearance Urine pH Ur Specific [place] Urine Protein Urine Glucose (UA) Urine Ketones Urine Blood Urine Nitrite Ur Leukocyte Esterase Urine RBC Urine WBC Ur Squamous Epith Cells Urine Bacteria Hyaline Casts Granular Casts Influenza Type A (PCR) Influenza Type B (PCR) RSV RNA Qual (PCR) SARS-CoV-2 RNA (RT-PCR) Microbiology Microbiology Results: Microbiology 08/15/22 16:25 Blood Culture - Preliminary Blood - Venous Prelim: GPC Gram Stain only 08/15/22 16:09 Blood Culture - Preliminary Blood - Venous Prelim: GPC Gram Stain only Assessment and Plan (1) COVID-19: Status: Acute (2) Sepsis: Status: Acute (3) Diabetic foot ulcer: Status: Acute (4) Charcot foot due to diabetes mellitus: Status: Acute Plan Pt is a 57-year-old female with a PMH significant for Charcot foot,?PAD, IBS, CKD, HTN, insulin-dependent DM, and hx of osteomyelitis with multiple debridements who presents to the ED from hematology clinic?for evaluation of elevated temperature and WBCs. Pt will be admitted to the hospital for treatment and further evaluation of chronic diabetic foot ulcer concerning for osteomyelitis. Sepsis 2/2 diabetic foot infection, Deysi could foot with osteomyelitis Fever resolved Continue vancomycin ceftriaxone ID consult Vascular surgery consult, patient will likely need below-knee amputation Follow vancomycin trough LUIS Creatinine improved back to baseline Pt received IVF in ED Monitor BMP Back pain CT of abdomen/pelvis w/o contrast d/t LUIS found evidence of perinephric stranding that may be chronic UA negative for UTI, pt denies dysuria and polyuria less likely pyelonephritis, more of a muscular origin P.r.n. pain meds Chest pain, chronic Pt complains of persistent chest pain since last October Has an appointment at [facility] cardiology on Saturday for imaging COVID infection Pt currently asymptomatic Monitor respiratory status Acute hypokalemia Potassium of 3, to give replacement Follow BMP Microcytic anemia, chronic Hemoglobin down to 8.2, near baseline Pt seen at hematology for Procrit shot, held for this week F/U outpatient at hematology clinic Insulin-dependent DM with hyperglycemia Hold home meds SSI, lantus Full Code DVT Prophylaxis: Lovenox Pt will require overnight hospital stay for treatment of?diabetic foot infection with osteomyelitis requiring IV abx and possible surgical intervention Time Spent With Patient Time: Total time managing care of this patient today ____ minutes. Quality Stroke Does the patient have a stroke diagnosis?: No VTE Prior VTE?: No VTE Risk Level:: Medical - moderate - high VTE Device Contraindication: Treatment Not Indicated VTE Drug Contraindication: N/A - Med Ordered
[2022-08-16 16:43] LABS: Glucose, Whole Blood 200 mg/dL (60-115)
[2022-08-16 20:32] LABS: Glucose, Whole Blood 245 mg/dL (60-115)
[2022-08-16] MEDS: cefTRIAXone sodium 1 GM in 0.9 % Sodium Chloride 50 ML IV (21:20)
[2022-08-16] MEDS: Enoxaparin Sodium 40 MG/0.4 ML SYRINGE SUBCUT (21:28)
[2022-08-16] MEDS: Omeprazole 20 MG CAPSULE.DR PO (21:31)
[2022-08-16] MEDS: vancomycin HCL 1,000 MG in 0.9 % Sodium Chloride 250 ML 270 MG IV (22:01)
--- NOTE | 2022-08-16 22:14 | P.CNID_ITS ---
History of Present Illness Data of Consult Service Date: 08/16/22 Requesting physician: Loree Davis Primary Care Provider: TAMY Ram HPI Reason for consult: bacteremia,left foot infection I had seen her in June for MSSA bacteremia and left foot osteomyelitis where she completed six weeks of IV Kefzol. She came to my office today with concern over foot leaking laterally and 7/10 painful leg with swelling. We told her to go to ER and she did when she felt back pain and very weak later in afternoon. Review of Systems 2 Review of Systems: Yes all other systems are reviewed and are negative [facility] Past Medical History Medical History Acid reflux Anemia in chronic kidney disease (CKD) Arthritis Carpal tunnel syndrome Chronic ulcer of right foot Degenerative joint disease of spine Essential hypertension Hypertension Irritable bowel syndrome Leukocytosis Microcytic hypochromic anemia Obesity Osteomyelitis Osteoporosis PAD (peripheral artery disease) Peripheral neuropathy Peripheral vascular disease Prolapsed uterus Rectal prolapse Retinopathy Toe ulcer due to DM Family History Family History Maternal Grandmother Diabetes Maternal Grandfather Heart disease Cancer of unknown origin Mother HTN (hypertension) Paternal Uncle Thalassemia Family history: reviewed and not pertinent Surgical History Surgical History H/O dilation and curettage Social History Social History Household Members: Children Household Members Other:: 4 Housing: Apartment Are you a primary point of care technician to a significant other at home: No Do you presently have visiting nurse or other home services: No Unable to assess alcohol history related to: Unknown Alcohol intake: never Patient Tobacco Use Status: Never used Tobacco Second Hand Smoke Exposure: No Use of substances other than those prescribed or required for medical reasons: Unknown Have you been hit, kicked, punched, or otherwise hurt by someone within the past year? If so, by whom?: No Do you feel safe in your current relationship?: Yes Is there a partner from a previous relationship who is making you feel unsafe now?: No Are you made to feel afraid or neglected: No Advance Directives: No Advance Directives Information Provided: No Do you have thoughts of harming others: None Do you have a plan to hurt others: No Plan Recently lost weight without trying: Unsure Nutrition Risks: No Nutritional Risk Patient : No : No Poor oral hygiene: No service: No Current occupational status: disabled Meds Allergies Allergy/AdvReac Type Severity Reaction Status Date / Time No Known Allergies Allergy Unknown UNKNOWN Verified 08/15/22 14:25 [NO KNOWN ALLERGIES] Active Medications: Current Medications Acetaminophen (Acetaminophen 325 Mg Tablet) 650 mg PO Q6H PRN PRN Reason: Pain, Mild (Pain Scale 1-3) Last Admin: 08/16/22 04:43 Dose: 650 mg Amlodipine Besylate (Amlodipine Besylate 5 Mg Tablet) 5 mg PO DAILY [facility]; Protocol Last Admin: 08/16/22 10:01 Dose: 5 mg Aspirin (Aspirin Enteric Coated 81 Mg Tablet.Dr) 81 mg PO DAILY [facility] Last Admin: 08/16/22 10:00 Dose: 81 mg Atorvastatin Calcium (Atorvastatin Calcium 40 Mg Tablet) 40 mg PO DAILY [facility] Last Admin: 08/16/22 10:01 Dose: 40 mg Dextrose (Dextrose 50 % 25 Gm/50 Ml Syringe) 25 gm IVPUSH Q15M PRN; Protocol PRN Reason: per Hypoglycemia Standing Ord. Docusate Sodium (Docusate Sodium 100 Mg Capsule) 100 mg PO DAILY PRN PRN Reason: Constipation Ezetimibe (Ezetimibe 10 Mg Tablet) 10 mg PO DAILY [facility] Last Admin: 08/16/22 10:00 Dose: 10 mg Empagliflozin (Empagliflozin 25 Mg Tablet) 25 mg PO DAILY [facility] Last Admin: 08/16/22 10:01 Dose: 25 mg Enoxaparin Sodium (Enoxaparin Sodium 40 Mg/0.4 Ml Syringe) 40 mg SUBCUT Q24H [facility] Last Admin: 08/16/22 21:28 Dose: 40 mg Folic Acid (Folic Acid 1 Mg Tablet) 1 mg PO DAILY [facility] Last Admin: 08/16/22 10:02 Dose: 1 mg Glucose (Glucose Gel 15 Gm Gel..Gram.) 15 gm PO Q15M PRN; Protocol PRN Reason: per Hypoglycemia Standing Ord. Ceftriaxone Sodium 1 gm/ (Sodium Chloride) 50 mls @ 100 mls/hr IV Q24H [facility] Last Infusion: 08/16/22 21:56 Dose: Infused Vancomycin HCl 1,000 mg/ (Sodium Chloride) 270 mls @ 270 mls/hr IV Q24H [facility] Last Admin: 08/16/22 22:01 Dose: 270 mls/hr Insulin Glargine (Insulin Glargine,Hum.Rec.Anlog 100 Unit/Ml 10 Ml Vial) 28 unit SUBCUT DAILY [facility] Last Admin: 08/16/22 10:00 Dose: 28 unit Insulin Human Lispro (Insulin Lispro 100 Unit/Ml 3 Ml Vial) 0 unit SUBCUT QIDACHS [facility]; Protocol Last Admin: 08/16/22 21:28 Dose: 4 unit Lidocaine (Lidocaine 4 % Patch Adh..Patch) 1 patch TRANSDERMA DAILY [facility] Last Admin: 08/16/22 09:58 Dose: 1 patch Magnesium Oxide (Magnesium Oxide 400 Mg Tablet) 400 mg PO TID [facility] Last Admin: 08/16/22 21:32 Dose: 400 mg Metoprolol Succinate (Metoprolol Succinate Er 50 Mg Tab.Er.24h) 50 mg PO DAILY [facility]; Protocol Last Admin: 08/16/22 10:01 Dose: 50 mg Omeprazole (Omeprazole 20 Mg Capsule.Dr) 20 mg PO BEDTIME [facility] Last Admin: 08/16/22 21:31 Dose: 20 mg Ondansetron HCl (Ondansetron Hcl 4 Mg/2 Ml Vial) 4 mg IVPUSH Q8H PRN PRN Reason: Nausea and Vomiting Oxycodone HCl (Oxycodone Hcl Immed Release 5 Mg Tablet) 2.5 mg PO Q4H PRN PRN Reason: Pain, Severe (Pain Scale 7-10) Pharmacy Consult (Consult Rx Perform Med Rec) 1 each MISCELLANE ONCE PRN PRN Reason: Consult order Pharmacy Consult (Consult Rx Vancomycin Dosing) 1 each MISCELLANE DAILY PRN PRN Reason: Consult order Sodium Chloride (0.9 % Sodium Chloride Flush 3 Ml Syringe) 3 ml IVFLUSH QSHIFT [facility] Last Admin: 08/16/22 22:07 Dose: 3 ml Vitamin D (Cholecalciferol (Vitamin D3) 25 Mcg Tablet) 25 mcg PO DAILY [facility] Last Admin: 08/16/22 10:01 Dose: 25 mcg Home Medications Medication Instructions Recorded Confirmed Last Taken Type aspirin 81 mg tablet,delayed 1 tab PO DAILY 07/02/21 08/15/22 08/14/22 History release cholecalciferol (vitamin D3) 25 1 tab PO DAILY 07/02/21 08/15/22 08/14/22 History mcg (1,000 unit) tablet metformin 1,000 mg tablet 1 tab PO BID 07/02/21 08/15/22 08/14/22 History blood sugar diagnostic (FreeStyle #10 ea 09/18/21 07/11/22 05/11/22 History Lite Strips) lancets 33 gauge (TRUEplus Lancets) #100 ea 09/18/21 07/11/22 05/11/22 History pen needle, diabetic 31 gauge x #1,200 ea 09/18/21 07/11/22 05/11/22 History 5/16 (UltiCare Pen Needle) atorvastatin 40 mg tablet 40 mg PO DAILY 06/13/22 08/15/22 08/14/22 History empagliflozin 25 mg tablet 25 mg PO DAILY 06/13/22 08/15/22 08/14/22 History (Jardiance) ezetimibe 10 mg tablet 10 mg PO DAILY 06/13/22 08/15/22 08/14/22 History pantoprazole 40 mg tablet,delayed 40 mg PO BEDTIME 06/13/22 08/15/22 08/14/22 History release pioglitazone 15 mg tablet 15 mg PO DAILY 06/13/22 08/15/22 08/14/22 History insulin glargine 100 unit/mL (3 40 unit subcut DAILY 08/15/22 08/15/22 08/14/22 History mL) subcutaneous pen (Lantus Solostar U-100 Insulin) lidocaine 5 % topical patch 1 patch topical DAILY 08/15/22 08/15/22 08/14/22 History magnesium oxide 400 mg (241.3 mg 400 mg PO TID 08/15/22 08/15/22 08/14/22 History magnesium) tablet Physical Exam Vital Signs: Vital Signs: Last Vital Signs Temp 97.4 F 08/16/22 19:17 Pulse 114 H 08/16/22 19:17 Resp 18 08/16/22 19:17 BP 166/70 H 08/16/22 19:17 Pulse Ox 95 08/16/22 19:17 O2 Del Method 08/16/22 19:17 BMI result Body Mass Index 34.3 Const: General: cooperative HEENT: Head: Yes normal to inspection Face and sinus: Yes normal facial exam Mouth: Normal oral and palatal mucosa present Teeth and gingiva: dentition normal Eyes: General: appearance normal, both eyes and all related structures Pupils: Equal, round and reactive pupils present Resp: Effort & Inspection: normal respiratory effort Cardio: Rate: regular rate Rhythm: regular rhythm GI: Palpation (GI): Soft to palpation and nontender : General: Yes no CVA tenderness Back/Spine/Pelvis: Back: no CVA tenderness Skin: General skin exam: no rashes or lesions noted Neuro: General: moves all extremities Cranial nerves: Yes Equal, round and reactive pupils present Extrem: Other: foot scaliness lateral foot plus 3 edema left leg Psych: Appearance: grossly normal Results Labs 08/16/22 06:42 08/16/22 06:42 Labs: Short CBC 08/16/22 Range/Units 06:42 WBC 23.9 H (4.8-10.8) X10*3/uL Hgb 8.2 L (12.0-16.0) g/dl Hct 26.5 L (37.0-47.0) % Plt Count 816 H (160-400) X10*3/uL BMP 08/16/22 06:42 Sodium 133 L Potassium 3.0 L Chloride 99 Carbon Dioxide 19 L BUN 26 H Creatinine 0.86 Calcium 9.2 D Microbiology Microbiology Results: Microbiology 08/15/22 16:25 Blood - Venous Blood Culture - Preliminary Prelim: GPC Gram Stain only 08/15/22 16:09 Blood - Venous Blood Culture - Preliminary Prelim: GPC Gram Stain only Assessment and Plan (1) Sepsis: Status: Acute She probably has MSSA sepsis again as in June. She has worsening chronic osteomyelitis. She has some back discomfort She has incidental COVID (2) Cellulitis: Status: Acute (3) COVID-19: Status: Acute (4) Charcot foot due to diabetes mellitus: Status: Acute Plan Continue Ceftriaxone and Vancomycin. Await blood culture Check echo. Consider MRI of LS spine evaluate pain. Time Spent With Patient Time: Total time managing care of this patient today ____ minutes.
[2022-08-17] VITALS (8 sets, daily range): BP systolic 118–178; BP diastolic 63–79; PULSE 68–114; RESP 14–18; TEMP 36.1–37.6; O2SAT 91–98
[2022-08-17 07:16] LABS: Hematocrit 26.7 % (37.0-47.0); Hemoglobin 8.3 g/dl (12.0-16.0); Mean Corpuscular HGB Conc 31.1 g/dl (31.0-35.0); Mean Corpuscular Hemoglobin 18.6 pg (27.0-33.0); Mean Platelet Volume 9.1 fL (9.4-12.3); Platelet Count 805 X10*3/uL (160-400); Red Blood Count 4.47 X10*6/uL (4.20-5.50); Red Cell Distribution Width 18.1 % (11.0-16.0)
[2022-08-17 07:41] LABS: Mean Corpuscular Volume 59.7 fL (80.0-98.0); White Blood Count 33.9 X10*3/uL (4.8-10.8)
[2022-08-17 07:47] LABS: Creatinine Clr Calc Pharmacy 71.7; Estimated Glomerular Filt Rate > 60
[2022-08-17 07:50] LABS: Anion Gap 17 (12-20); Blood Urea Nitrogen 20 mg/dL (9-16); Carbon Dioxide 21 mmol/L (22-29); Chloride 98 mmol/L (96-108); Creatinine Clr Calc Pharmacy 71.7; Estimated Glomerular Filt Rate > 60; Glucose Random 223 mg/dL (60-115); Potassium 3.6 mmol/L (3.3-5.1); Sodium 132 mmol/L (135-145)
[2022-08-17 07:58] LABS: Glucose, Whole Blood 221 mg/dL (60-115)
--- NOTE | 2022-08-17 08:46 | P.CDIC_ITS ---
CDI Concurrent Query Documentation Clarification: PHYSICIAN'S DOCUMENTATION REQUEST Date of Query: 08/17/22 0846 Patient Name: Mitra Parish Admit Date: 08/15/22 Dear Doctor, A review of the medical record indicates additional documentation may be needed. Please review below and update the documentation accordingly. Clinical Indicators Risk Factors/Clinical Indicators/Treatments PN 08/16 - Assessment/plan-Sepsis 2/2 diabetic foot infection, charcot foot with osteomyelitis. Painful, swelling of leg, completed 6 wks of IV Kefzol. ID: [id number] - Has worsening chronic osteomyelitis, probably MSSA sepsis as before. IV Vancomycin, Ceftriaxone, IV fluids. Based on the above, please clarify in the Progress Notes further specificity regarding the type of Osteomyelitis. Also include specific site with laterality and known or suspected infectious agent: * Acute osteomyelitis * Subacute osteomyelitis * Chronic osteomyelitis * Acute on chronic osteomyelitis * Other (please specify) * Unable to determine Use of terms such as suspected, likely, concern for, or probable (associated with a specific diagnosis that is being evaluated, monitored, or treated as if it exists) are acceptable and can be coded in the inpatient setting, when documented at the time of discharge. Thank you, Martha Lees [facility], CDIS Extension: [phone] Please use your independent medical judgment in providing your response. THIS QUERY IS PART OF THE PERMANENT MEDICAL RECORD Provider Response: Other Other Diagnosis: Chronic osteomyelitis
[2022-08-17] MEDS: Insulin Glargine,Hum.rec.anlog 100 UNIT/ML 10 ML VIAL 28 UNIT SUBCUT (10:28)
[2022-08-17] MEDS: Insulin Lispro 100 UNIT/ML 3 ML VIAL SUBCUT ×4 (10:29→20:28)
[2022-08-17] MEDS: Acetaminophen 325 MG TABLET 650 MG PO (10:32)
[2022-08-17] MEDS: Atorvastatin Calcium 40 MG TABLET PO (10:32)
[2022-08-17] MEDS: Lidocaine 4 % Patch ADH..PATCH 1 PATCH TRANSDERMA (10:32)
[2022-08-17] MEDS: Empagliflozin 25 MG TABLET PO (10:33)
[2022-08-17] MEDS: Cholecalciferol (Vitamin D3) 25 MCG TABLET PO (10:33)
[2022-08-17] MEDS: Folic Acid 1 MG TABLET PO (10:33)
[2022-08-17] MEDS: Aspirin Enteric Coated 81 MG TABLET.DR PO (10:33)
[2022-08-17] MEDS: Metoprolol Succinate ER 50 MG TAB.ER.24H PO (10:33)
[2022-08-17] MEDS: Magnesium Oxide 400 MG TABLET PO ×3 (10:33→20:29)
[2022-08-17] MEDS: amLODIPine Besylate 5 MG TABLET PO (10:33)
[2022-08-17] MEDS: Ezetimibe 10 MG TABLET PO (10:33)
[2022-08-17 11:25] LABS: Glucose, Whole Blood 233 mg/dL (60-115)
--- NOTE | 2022-08-17 11:58 | HO.VASCPN ---
Subjective Subjective Date of Service: 08/17/22 Patient reports: no new complaints Interval history: Very complex 57-year-old female presents for follow-up regarding nonhealing ulcer of the left foot secondary did diabetes and Charcot foot. She was actually brought into the hospital from Infectious Disease as she had a significantly draining left lower extremity. Upon workup she was noted to have an elevated white count. Over the last 2 days it has actually risen up to a white count of 33. She now presents to us for vascular follow-up. Physical Exam Vital Signs: Vital Signs: Last Vital Signs Temp 99.7 F 08/17/22 10:00 Pulse 82 08/17/22 10:00 Resp 14 08/17/22 10:00 BP 166/74 H 08/17/22 10:00 Pulse Ox 94 08/17/22 10:00 O2 Del Method 08/17/22 10:00 BMI result Body Mass Index 34.3 Const: General: cooperative, healthy appearing and comfortable Orientation/consciousness: oriented to person, oriented to place and oriented to time HEENT: Head: Yes normal to inspection Neck: Neck: Yes normal visual inspection Carotids: no bruits Chest: Chest palpation & inspection: normal inspection of the chest Resp: Effort & Inspection: normal respiratory effort and able to speak in complete sentences Auscultation: clear to auscultation bilaterally, no crackles, no rales, no rhonchi and no wheezes Cardio: Rate: regular rate Rhythm: regular rhythm Heart sounds: S1 normal heart sound present and S2 normal heart sound present Bruits: no carotid bruits Peripheral pulses: Peripheral pulses 2+ throughout GI: Inspection: Yes normal to inspection Skin: Other: Left foot boggy with dusky 4th and 5th toe. Significant edema. No fluctuant areas but concern of underlying infection. Wounds: wounds noted Hair: normal Neuro: General: oriented to person, oriented to place and oriented to time Cranial nerves: Yes CN's II-XII intact bilaterally and Yes Normal hearing present Cognition (Neuro): normal cognition Motor exam (neuro): 5/5 motor strength present throughout Extrem: Other: venous exam: No significant superficial varicosities or spider telangiectasias, minimal edema General: No clubbing, No cyanosis and No edema Psych: Appearance: grossly normal Mental Status: mental status grossly normal Speech and movement: Normal speech and movement present Progress Note: A&P Assessment and plan (1) Diabetic foot ulcer: Status: Acute Assessment and Plan: In short the patient has a significant left foot diabetic ulcer. She has had multiple attempts at conservative management and has failed. The concern is her overall compliance. I do not believe that this is a salvage type situation. She will require left BKA. She has been resistant to this concept with multiple visits and her hospitalizations in the past. With this elevated white count and is extremely concerning. This was discussed with her and she was very resistant to this fact again. We will have the hospitalist team see her. Would like to perform a below-knee amputation on Saturday. Thank you for allowing us to assist in her care. If there are any questions or concerns please do not hesitate to contact us. Time Spent With Patient Time: Total time managing care of this patient today ____ minutes. Procedures Date of Service Date of Service: 08/17/22 Quality Stroke Does the patient have a stroke diagnosis?: No VTE Prior VTE?: No VTE Risk Level:: Medical - moderate - high VTE Device Contraindication: Treatment Not Indicated VTE Drug Contraindication: N/A - Med Ordered
[2022-08-17] MEDS: Piperacillin Sodium/Tazobactam 3.375 GM in 0.9 % Sodium Chloride 50 ML IV ×2 (12:36→20:28)
--- NOTE | 2022-08-17 14:04 | PM.CNCAR ---
History of Present Illness History of Present Illness Date of Service: 08/17/22 Requesting physician: Loree Davis Consult reason: pre-op evaluation Chief complaint: Fever,Left foot wound Narrative: I was consulted to see Mitra in cardiology consultation today for preoperative cardiovascular risk stratification prior to planned below-knee amputation. Consultation was because of intermittent episode of chest discomfort and mildly abnormal nuclear stress test recently. Patient has longstanding history of diabetes poorly controlled, has developed diabetic foot ulcer which is not healing without any significant vascular abnormality and is felt that this would require below-knee amputation. Cardiology consult was sought because of her concerns. Patient says she is not even ready and whether she wants below-knee amputation. This will be up to the patient's primary team as well as the vascular surgery to determine. I discussed with the patient that she requires cardiology risk stratification due to multiple risk factors and equivocal nuclear stress test shows done for atypical chest discomfort. She is currently not having chest pain. She has had multiple hospital presentation with chest pain with negative troponins. EKG is nonischemic. She has no signs or symptoms of heart failure. She obviously has limited exercise capacity related to her multiple medical issues. She denies any palpitations, lightheadedness, syncope, orthopnea, PND. Review of Systems Constitutional: Constitutional: Reports body ache(s) and Reports fever(s) Eyes: Eyes: Reports no additional eye complaints Cardiovascular: Cardiovascular: Reports chest pain at rest, Denies leg edema, Denies lightheadedness, Denies Loss of Consciousness and Denies orthopnea Respiratory: Respiratory: Reports no additional respiratory complaints Gastrointestinal: Gastrointestinal: Reports no additional gastrointestinal complaints Neurologic: Reports system reviewed and no additional complaints, except as documented [facility] Past Medical History Medical History Acid reflux Anemia in chronic kidney disease (CKD) Arthritis Carpal tunnel syndrome Chronic ulcer of right foot Degenerative joint disease of spine Essential hypertension Hypertension Irritable bowel syndrome Leukocytosis Microcytic hypochromic anemia Obesity Osteomyelitis Osteoporosis PAD (peripheral artery disease) Peripheral neuropathy Peripheral vascular disease Prolapsed uterus Rectal prolapse Retinopathy Toe ulcer due to DM Family History Family History Maternal Grandmother Diabetes Maternal Grandfather Heart disease Cancer of unknown origin Mother HTN (hypertension) Paternal Uncle Thalassemia Family history: reviewed and not pertinent Surgical History Surgical History H/O dilation and curettage Social History Social History Household Members: Children Household Members Other:: 4 Housing: Apartment Are you a primary acute care registered nurse to a significant other at home: No Do you presently have visiting nurse or other home services: No Unable to assess alcohol history related to: Unknown Alcohol intake: never Patient Tobacco Use Status: Never used Tobacco Second Hand Smoke Exposure: No Use of substances other than those prescribed or required for medical reasons: Unknown Have you been hit, kicked, punched, or otherwise hurt by someone within the past year? If so, by whom?: No Do you feel safe in your current relationship?: Yes Is there a partner from a previous relationship who is making you feel unsafe now?: No Are you made to feel afraid or neglected: No Advance Directives: No Advance Directives Information Provided: No Do you have thoughts of harming others: None Do you have a plan to hurt others: No Plan Recently lost weight without trying: Unsure Nutrition Risks: No Nutritional Risk Patient : No : No Poor oral hygiene: No service: No Current occupational status: disabled Meds Allergies Allergy/AdvReac Type Severity Reaction Status Date / Time No Known Allergies Allergy Unknown UNKNOWN Verified 08/15/22 14:25 [NO KNOWN ALLERGIES] Active Medications: Current Medications Acetaminophen (Acetaminophen 325 Mg Tablet) 650 mg PO Q6H PRN PRN Reason: Pain, Mild (Pain Scale 1-3) Last Admin: 08/17/22 10:32 Dose: 650 mg Amlodipine Besylate (Amlodipine Besylate 5 Mg Tablet) 5 mg PO DAILY [facility]; Protocol Last Admin: 08/17/22 10:33 Dose: 5 mg Aspirin (Aspirin Enteric Coated 81 Mg Tablet.Dr) 81 mg PO DAILY [facility] Last Admin: 08/17/22 10:33 Dose: 81 mg Atorvastatin Calcium (Atorvastatin Calcium 40 Mg Tablet) 40 mg PO DAILY [facility] Last Admin: 08/17/22 10:32 Dose: 40 mg Dextrose (Dextrose 50 % 25 Gm/50 Ml Syringe) 25 gm IVPUSH Q15M PRN; Protocol PRN Reason: per Hypoglycemia Standing Ord. Docusate Sodium (Docusate Sodium 100 Mg Capsule) 100 mg PO DAILY PRN PRN Reason: Constipation Ezetimibe (Ezetimibe 10 Mg Tablet) 10 mg PO DAILY [facility] Last Admin: 08/17/22 10:33 Dose: 10 mg Empagliflozin (Empagliflozin 25 Mg Tablet) 25 mg PO DAILY [facility] Last Admin: 08/17/22 10:33 Dose: 25 mg Enoxaparin Sodium (Enoxaparin Sodium 40 Mg/0.4 Ml Syringe) 40 mg SUBCUT Q24H [facility] Last Admin: 08/16/22 21:28 Dose: 40 mg Folic Acid (Folic Acid 1 Mg Tablet) 1 mg PO DAILY [facility] Last Admin: 08/17/22 10:33 Dose: 1 mg Glucose (Glucose Gel 15 Gm Gel..Gram.) 15 gm PO Q15M PRN; Protocol PRN Reason: per Hypoglycemia Standing Ord. Vancomycin HCl 1,000 mg/ (Sodium Chloride) 270 mls @ 270 mls/hr IV Q24H [facility] Last Infusion: 08/16/22 23:16 Dose: Infused Piperacillin Sod/Tazobactam (Sod 3.375 gm/ Sodium Chloride) 50 mls @ 100 mls/hr IV Q6H [facility] Last Infusion: 08/17/22 13:13 Dose: Infused Insulin Glargine (Insulin Glargine,Hum.Rec.Anlog 100 Unit/Ml 10 Ml Vial) 28 unit SUBCUT DAILY [facility] Last Admin: 08/17/22 10:28 Dose: 28 unit Insulin Human Lispro (Insulin Lispro 100 Unit/Ml 3 Ml Vial) 0 unit SUBCUT QIDACHS [facility]; Protocol Last Admin: 08/17/22 12:36 Dose: 4 unit Lidocaine (Lidocaine 4 % Patch Adh..Patch) 1 patch TRANSDERMA DAILY [facility] Last Admin: 08/17/22 10:32 Dose: 1 patch Magnesium Oxide (Magnesium Oxide 400 Mg Tablet) 400 mg PO TID [facility] Last Admin: 08/17/22 10:33 Dose: 400 mg Metoprolol Succinate (Metoprolol Succinate Er 50 Mg Tab.Er.24h) 50 mg PO DAILY [facility]; Protocol Last Admin: 08/17/22 10:33 Dose: 50 mg Omeprazole (Omeprazole 20 Mg Capsule.Dr) 20 mg PO BEDTIME [facility] Last Admin: 08/16/22 21:31 Dose: 20 mg Ondansetron HCl (Ondansetron Hcl 4 Mg/2 Ml Vial) 4 mg IVPUSH Q8H PRN PRN Reason: Nausea and Vomiting Oxycodone HCl (Oxycodone Hcl Immed Release 5 Mg Tablet) 2.5 mg PO Q4H PRN PRN Reason: Pain, Severe (Pain Scale 7-10) Pharmacy Consult (Consult Rx Perform Med Rec) 1 each MISCELLANE ONCE PRN PRN Reason: Consult order Pharmacy Consult (Consult Rx Vancomycin Dosing) 1 each MISCELLANE DAILY PRN PRN Reason: Consult order Sodium Chloride (0.9 % Sodium Chloride Flush 3 Ml Syringe) 3 ml IVFLUSH QSHIFT [facility] Last Admin: 08/17/22 07:42 Dose: Not Given Vitamin D (Cholecalciferol (Vitamin D3) 25 Mcg Tablet) 25 mcg PO DAILY [facility] Last Admin: 08/17/22 10:33 Dose: 25 mcg Home Medications Medication Instructions Recorded Confirmed Last Taken Type aspirin 81 mg tablet,delayed 1 tab PO DAILY 07/02/21 08/15/22 08/14/22 History release cholecalciferol (vitamin D3) 25 1 tab PO DAILY 07/02/21 08/15/22 08/14/22 History mcg (1,000 unit) tablet metformin 1,000 mg tablet 1 tab PO BID 07/02/21 08/15/22 08/14/22 History blood sugar diagnostic (FreeStyle #10 ea 09/18/21 07/11/22 05/11/22 History Lite Strips) lancets 33 gauge (TRUEplus Lancets) #100 ea 09/18/21 07/11/22 05/11/22 History pen needle, diabetic 31 gauge x #1,200 ea 09/18/21 07/11/22 05/11/22 History 5/16 (UltiCare Pen Needle) atorvastatin 40 mg tablet 40 mg PO DAILY 06/13/22 08/15/22 08/14/22 History empagliflozin 25 mg tablet 25 mg PO DAILY 06/13/22 08/15/22 08/14/22 History (Jardiance) ezetimibe 10 mg tablet 10 mg PO DAILY 06/13/22 08/15/22 08/14/22 History pantoprazole 40 mg tablet,delayed 40 mg PO BEDTIME 06/13/22 08/15/22 08/14/22 History release pioglitazone 15 mg tablet 15 mg PO DAILY 06/13/22 08/15/22 08/14/22 History insulin glargine 100 unit/mL (3 40 unit subcut DAILY 08/15/22 08/15/22 08/14/22 History mL) subcutaneous pen (Lantus Solostar U-100 Insulin) lidocaine 5 % topical patch 1 patch topical DAILY 08/15/22 08/15/22 08/14/22 History magnesium oxide 400 mg (241.3 mg 400 mg PO TID 08/15/22 08/15/22 08/14/22 History magnesium) tablet Physical Exam Vital Signs: Vital Signs: Last Vital Signs Temp 99.7 F 08/17/22 12:00 Pulse 82 08/17/22 12:00 Resp 14 08/17/22 12:00 BP 166/74 H 08/17/22 12:00 Pulse Ox 94 08/17/22 12:00 O2 Del Method 08/17/22 12:00 BMI result Body Mass Index 34.3 Const: General: cooperative, comfortable, no acute distress, alert and awake Nutritional Appearance: obese Orientation/consciousness: patient oriented x3 HEENT: Head: Yes normocephalic and Yes atraumatic Neck: Neck: Yes trachea midline, Yes supple and Yes no JVD Chest: Chest palpation & inspection: normal inspection of the chest Resp: Effort & Inspection: normal respiratory effort Auscultation: clear to auscultation bilaterally Cardio: Jugular venous distension: no JVD Palpation: normal PMI Rate: regular rate Rhythm: regular rhythm Heart sounds: S1 normal heart sound present, S2 normal heart sound present, no click, no gallops, no murmurs and no rubs GI: Auscultation: normal bowel sounds Skin: General skin exam: no rashes or lesions noted Neuro: General: patient oriented x3 and no focal motor deficits Objective Labs and Meds 08/17/22 06:35 08/17/22 06:35 Lab results: Laboratory Results - last 24 hr 08/16/22 08/16/22 08/17/22 16:29 20:25 06:35 WBC 33.9 H* RBC 4.47 Hgb 8.3 L Hct 26.7 L MCV 59.7 L MCH 18.6 L MCHC 31.1 RDW 18.1 H Plt Count 805 H MPV 9.1 L Absolute Nucleated RBC 0.000 Nucleated RBC % (auto) 0.0 Smear Path Review SEE NOTE Sodium Potassium Chloride Carbon Dioxide Anion Gap BUN Creatinine Estim Creat Clear Calc Estimated GFR POC Glucose 200 H 245 H Random Glucose Calcium Blood Type Antibody Screen 08/17/22 08/17/22 08/17/22 06:35 06:35 07:23 WBC RBC Hgb Hct MCV MCH MCHC RDW Plt Count MPV Absolute Nucleated RBC Nucleated RBC % (auto) Smear Path Review Sodium 132 L Potassium 3.6 Chloride 98 Carbon Dioxide 21 L Anion Gap 17 BUN 20 H Creatinine 0.79 0.79 Estim Creat Clear Calc 71.7 71.7 Estimated GFR > 60 > 60 POC Glucose 221 H Random Glucose 223 H Calcium 9.0 Blood Type Antibody Screen 08/17/22 08/17/22 10:58 12:41 WBC RBC Hgb Hct MCV MCH MCHC RDW Plt Count MPV Absolute Nucleated RBC Nucleated RBC % (auto) Smear Path Review Sodium Potassium Chloride Carbon Dioxide Anion Gap BUN Creatinine Estim Creat Clear Calc Estimated GFR POC Glucose 233 H Random Glucose Calcium Blood Type O Positive Antibody Screen NEGATIVE EKG shows sinus tachycardia without any acute ST T wave changes. Assessment and Plan (1) Preoperative cardiovascular examination: Status: Acute Preoperative cardiovascular risk stratification prior to below-knee amputation which is considered low to intermediate risk surgery. Patient has very atypical chest pain currently not having active chest pain without having any evidence of acute coronary syndrome with at best equivocal myocardial perfusion imaging which is low risk. No signs or symptoms of congestive heart failure. She does have underlying multiple risk factors for coronary artery disease. However at current time given the need for surgery which is urgent I think she should undergo this surgery with low to intermediate risk for perioperative cardiovascular morbidity mortality. Can maximize metoprolol XL to 50 mg b.i.d. with better blood pressure control also maximize amlodipine to 5 mg b.i.d.. No other workup is necessary prior to this noncardiac surgery. If she develops any perioperative or postoperative cardiac issues feel free to consult us. Will sign of the case at this point in time Time Spent With Patient Time: Total time managing care of this patient today ____ minutes. Procedures Date of Service Date of Service: 08/17/22
--- NOTE | 2022-08-17 15:42 | P.PNIM_ITS ---
Subjective Subjective Date of Service: 08/17/22 Interval History: Seen and evaluated this morning Complaining of chest, back and leg pain Feels restless about the possibility of losing her leg in surgery Still having drainage from her left foot Reporting back pain Fever resolved Review of Systems Review of Systems: Yes all other systems are reviewed and are negative Physical Exam Vital Signs: Vital Signs: Last Vital Signs Temp 99.7 F 08/17/22 12:00 Pulse 82 08/17/22 12:00 Resp 14 08/17/22 12:00 BP 166/74 H 08/17/22 12:00 Pulse Ox 94 08/17/22 12:00 O2 Del Method 08/17/22 12:00 BMI result Body Mass Index 34.3 Const: Other: Constitutional : Awake, interactive Neck : Normal inspection, Supple Cardiovascular : RRR, no JVP, no lower extremity edema Respiratory : good bilateral air entry, no crackles, wheezes or rhonchi Gastrointestinal: soft, lax, Normal bowel sounds, Non tender Skin : Warm, Dry, the of floor chart good foot with dorsal opening and drainage covered with dressing Neurological : Alert & oriented x3, No focal deficit Objective Data Active Medications Acetaminophen (Acetaminophen 325 Mg Tablet) 650 mg PO Q6H PRN PRN Reason: Pain, Mild (Pain Scale 1-3) Last Admin: 08/17/22 10:32 Dose: 650 mg Documented By: ROYCE-CRYSTAL Amlodipine Besylate (Amlodipine Besylate 5 Mg Tablet) 5 mg PO DAILY [facility]; Protocol Last Admin: 08/17/22 10:33 Dose: 5 mg Documented By: ROYCE-CRYSTAL Aspirin (Aspirin Enteric Coated 81 Mg Tablet.) 81 mg PO DAILY [facility] Last Admin: 08/17/22 10:33 Dose: 81 mg Documented By: ROYCE-CRYSTAL Atorvastatin Calcium (Atorvastatin Calcium 40 Mg Tablet) 40 mg PO DAILY [facility] Last Admin: 08/17/22 10:32 Dose: 40 mg Documented By: ROYCE-CRYSTAL Dextrose (Dextrose 50 % 25 Gm/50 Ml Syringe) 25 gm IVPUSH Q15M PRN; Protocol PRN Reason: per Hypoglycemia Standing Ord. Docusate Sodium (Docusate Sodium 100 Mg Capsule) 100 mg PO DAILY PRN PRN Reason: Constipation Ezetimibe (Ezetimibe 10 Mg Tablet) 10 mg PO DAILY [facility] Last Admin: 08/17/22 10:33 Dose: 10 mg Documented By: YUE Empagliflozin (Empagliflozin 25 Mg Tablet) 25 mg PO DAILY [facility] Last Admin: 08/17/22 10:33 Dose: 25 mg Documented By: YUE Enoxaparin Sodium (Enoxaparin Sodium 40 Mg/0.4 Ml Syringe) 40 mg SUBCUT Q24H [facility] Last Admin: 08/16/22 21:28 Dose: 40 mg Documented By: DENNYS Folic Acid (Folic Acid 1 Mg Tablet) 1 mg PO DAILY [facility] Last Admin: 08/17/22 10:33 Dose: 1 mg Documented By: YUE Glucose (Glucose Gel 15 Gm Gel..Gram.) 15 gm PO Q15M PRN; Protocol PRN Reason: per Hypoglycemia Standing Ord. Vancomycin HCl 1,000 mg/ (Sodium Chloride) 270 mls @ 270 mls/hr IV Q24H [facility] Last Infusion: 08/16/22 23:16 Dose: 0 mls/hr Documented By: DENNYS Piperacillin Sod/Tazobactam (Sod 3.375 gm/ Sodium Chloride) 50 mls @ 100 mls/hr IV Q6H [facility] Last Infusion: 08/17/22 13:13 Dose: 0 mls/hr Documented By: YUE Insulin Glargine (Insulin Glargine,Hum.Rec.Anlog 100 Unit/Ml 10 Ml Vial) 28 unit SUBCUT DAILY [facility] Last Admin: 08/17/22 10:28 Dose: 28 unit Documented By: YUE Insulin Human Lispro (Insulin Lispro 100 Unit/Ml 3 Ml Vial) 0 unit SUBCUT QIDACHS [facility]; Protocol Last Admin: 08/17/22 12:36 Dose: 4 unit Documented By: YUE Lidocaine (Lidocaine 4 % Patch Adh..Patch) 1 patch TRANSDERMA DAILY [facility] Last Admin: 08/17/22 10:32 Dose: 1 patch Documented By: YUE Magnesium Oxide (Magnesium Oxide 400 Mg Tablet) 400 mg PO TID [facility] Last Admin: 08/17/22 14:27 Dose: 400 mg Documented By: YUE Metoprolol Succinate (Metoprolol Succinate Er 50 Mg Tab.Er.24h) 50 mg PO DAILY [facility]; Protocol Last Admin: 08/17/22 10:33 Dose: 50 mg Documented By: YUE Omeprazole (Omeprazole 20 Mg Capsule.) 20 mg PO BEDTIME [facility] Last Admin: 08/16/22 21:31 Dose: 20 mg Documented By: DENNYS Ondansetron HCl (Ondansetron Hcl 4 Mg/2 Ml Vial) 4 mg IVPUSH Q8H PRN PRN Reason: Nausea and Vomiting Oxycodone HCl (Oxycodone Hcl Immed Release 5 Mg Tablet) 2.5 mg PO Q4H PRN PRN Reason: Pain, Severe (Pain Scale 7-10) Pharmacy Consult (Consult Rx Perform Med Rec) 1 each MISCELLANE ONCE PRN PRN Reason: Consult order Pharmacy Consult (Consult Rx Vancomycin Dosing) 1 each MISCELLANE DAILY PRN PRN Reason: Consult order Sodium Chloride (0.9 % Sodium Chloride Flush 3 Ml Syringe) 3 ml IVFLUSH QSHIFT [facility] Last Admin: 08/17/22 14:56 Dose: Not Given Documented By: YUE Non-Admin Reason: See Note Vitamin D (Cholecalciferol (Vitamin D3) 25 Mcg Tablet) 25 mcg PO DAILY [facility] Last Admin: 08/17/22 10:33 Dose: 25 mcg Documented By: YUE Labs 08/17/22 06:35 08/17/22 06:35 Labs: Laboratory Results - last 24 hr 08/16/22 08/16/22 08/17/22 16:29 20:25 06:35 MCV 59.7 L MCH 18.6 L MCHC 31.1 RDW 18.1 H Plt Count 805 H MPV 9.1 L Absolute Nucleated RBC 0.000 Nucleated RBC % (auto) 0.0 Smear Path Review SEE NOTE Anion Gap Estim Creat Clear Calc Estimated GFR POC Glucose 200 H 245 H Random Glucose Calcium Blood Type Antibody Screen 08/17/22 08/17/22 08/17/22 06:35 06:35 07:23 MCV MCH MCHC RDW Plt Count MPV Absolute Nucleated RBC Nucleated RBC % (auto) Smear Path Review Anion Gap 17 Estim Creat Clear Calc 71.7 71.7 Estimated GFR > 60 > 60 POC Glucose 221 H Random Glucose 223 H Calcium 9.0 Blood Type Antibody Screen 08/17/22 08/17/22 10:58 12:41 MCV MCH MCHC RDW Plt Count MPV Absolute Nucleated RBC Nucleated RBC % (auto) Smear Path Review Anion Gap Estim Creat Clear Calc Estimated GFR POC Glucose 233 H Random Glucose Calcium Blood Type O Positive Antibody Screen NEGATIVE Microbiology Microbiology Results: Microbiology 08/15/22 16:09 Blood Culture - Preliminary Blood - Venous Staphylococcus species 08/15/22 16:25 Blood Culture - Preliminary Blood - Venous Staphylococcus species Assessment and Plan (1) Charcot foot due to diabetes mellitus: Status: Acute (2) Sepsis: Status: Acute (3) Cellulitis: Status: Acute Plan Pt is a 57-year-old female with a PMH significant for Charcot foot,?PAD, IBS, CKD, HTN, insulin-dependent DM, and hx of osteomyelitis with multiple debridements who presents to the ED from hematology clinic?for evaluation of elevated temperature and WBCs. Pt will be admitted to the hospital for treatment and further evaluation of chronic diabetic foot ulcer concerning for osteomyelit is. Sepsis 2/2 GPC bacteremia from charcot foot with chronic osteomyelitis Fever resolved WBCs increased to 33.9 Continue vancomycin and Zosyn blood cultures growing Staph repeat BCx ID input appreciated Vascular surgery consult, patient will likely need below-knee amputation, schedu led for Saturday Follow vancomycin trough LUIS Creatinine improved back to baseline DC IVF Monitor BMP Back pain CT of abdomen/pelvis w/o contrast d/t LUIS found evidence of perinephric stranding that may be chronic UA negative for UTI, pt denies dysuria and polyuria Check MRI to r\o OM P.r.n. pain meds Chest pain, chronic Pt complains of persistent chest pain since last October Cardiology input appreciated, patient is low risk for perioperative cardiac complications COVID infection Pt currently asymptomatic Monitor respiratory status Acute hypokalemia P resolved after replacement Follow BMP Microcytic anemia, chronic Hemoglobin down to 8.2, near baseline Pt seen at hematology for Procrit shot, held for this week F/U outpatient at hematology clinic Insulin-dependent DM with hyperglycemia Hold home meds SSI, lantus Full Code DVT Prophylaxis: Lovenox Pt will require overnight hospital stay for treatment of?diabetic foot infection with osteomyelitis requiring IV abx and possible surgical intervention Time Spent With Patient Time: Total time managing care of this patient today ____ minutes. Quality Stroke Does the patient have a stroke diagnosis?: No VTE Prior VTE?: No VTE Risk Level:: Medical - moderate - high VTE Device Contraindication: Treatment Not Indicated VTE Drug Contraindication: N/A - Med Ordered
[2022-08-17 18:08] LABS: Glucose, Whole Blood 172 mg/dL (60-115)
[2022-08-17 20:12] LABS: Glucose, Whole Blood 172 mg/dL (60-115)
[2022-08-17 20:26] LABS: Vancomycin Random 11.7 mcg/mL (15-20)
[2022-08-17] MEDS: Enoxaparin Sodium 40 MG/0.4 ML SYRINGE SUBCUT (20:28)
[2022-08-17] MEDS: Omeprazole 20 MG CAPSULE.DR PO (20:28)
[2022-08-17] MEDS: 0.9 % Sodium Chloride Flush 3 ML SYRINGE IVFLUSH (20:29)
[2022-08-17] MEDS: vancomycin HCL 1,000 MG in 0.9 % Sodium Chloride 250 ML 270 MG IV (22:42)
[2022-08-18] MEDS: Piperacillin Sodium/Tazobactam 3.375 GM in 0.9 % Sodium Chloride 50 ML IV ×4 (01:22→20:40)
[2022-08-18 04:00] VITALS: BP 166/74; PULSE 92; RESP 20; TEMP 37.1; O2SAT 97
[2022-08-18 06:45] LABS: Hemoglobin 8.2 g/dl (12.0-16.0); Mean Corpuscular HGB Conc 31.5 g/dl (31.0-35.0); Mean Corpuscular Hemoglobin 18.7 pg (27.0-33.0); Platelet Count 747 X10*3/uL (160-400); Red Blood Count 4.38 X10*6/uL (4.20-5.50); Red Cell Distribution Width 17.7 % (11.0-16.0)
[2022-08-18 06:53] LABS: Mean Corpuscular Volume 59.4 fL (80.0-98.0); White Blood Count 33.6 X10*3/uL (4.8-10.8)
[2022-08-18 07:06] LABS: Creatinine Clr Calc Pharmacy 67.4; Estimated Glomerular Filt Rate > 60
[2022-08-18 07:32] VITALS: BP 131/64; PULSE 90; RESP 20; TEMP 36.6; O2SAT 96
[2022-08-18 07:46] LABS: Glucose, Whole Blood 143 mg/dL (60-115)
[2022-08-18] MEDS: Aspirin Enteric Coated 81 MG TABLET.DR PO (10:07)
[2022-08-18] MEDS: Cholecalciferol (Vitamin D3) 25 MCG TABLET PO (10:07)
[2022-08-18] MEDS: Ezetimibe 10 MG TABLET PO (10:08)
[2022-08-18] MEDS: Empagliflozin 25 MG TABLET PO (10:08)
[2022-08-18] MEDS: Lidocaine 4 % Patch ADH..PATCH 1 PATCH TRANSDERMA (10:08)
[2022-08-18] MEDS: Folic Acid 1 MG TABLET PO (10:08)
[2022-08-18] MEDS: Atorvastatin Calcium 40 MG TABLET PO (10:08)
[2022-08-18] MEDS: Metoprolol Succinate ER 50 MG TAB.ER.24H PO (10:08)
[2022-08-18] MEDS: Magnesium Oxide 400 MG TABLET PO ×3 (10:08→20:39)
[2022-08-18] MEDS: 0.9 % Sodium Chloride Flush 3 ML SYRINGE IVFLUSH ×3 (10:10→20:42)
[2022-08-18 11:08] VITALS: BP 128/62; PULSE 94; RESP 20; TEMP 37.1; O2SAT 97
[2022-08-18 11:18] LABS: Glucose, Whole Blood 190 mg/dL (60-115)
[2022-08-18] MEDS: amLODIPine Besylate 5 MG TABLET PO (11:58)
[2022-08-18] MEDS: Insulin Glargine,Hum.rec.anlog 100 UNIT/ML 10 ML VIAL 28 UNIT SUBCUT (12:00)
[2022-08-18] MEDS: Acetaminophen 325 MG TABLET 650 MG PO ×2 (12:01→23:35)
[2022-08-18] MEDS: Insulin Lispro 100 UNIT/ML 3 ML VIAL SUBCUT ×3 (12:01→20:39)
--- NOTE | 2022-08-18 13:52 | HO.PM.IMPN ---
Subjective Subjective Date of Service: 08/18/22 Interval History: Seen and evaluated this morning Significant improvement of chest, back and leg pain Swelling, erythema and drainage decreased Reports feeling much better overall No reported overnight events Review of Systems Review of Systems: Yes all other systems are reviewed and are negative Physical Exam Vital Signs: Vital Signs: Last Vital Signs Temp 98.7 F 08/18/22 11:08 Pulse 94 08/18/22 11:08 Resp 20 08/18/22 11:08 BP 128/62 08/18/22 11:08 Pulse Ox 97 08/18/22 11:08 O2 Del Method 08/18/22 11:08 O2 Flow Rate 2 08/18/22 04:00 BMI result Body Mass Index 34.3 Const: Other: Constitutional : Awake, interactive Neck : Normal inspection, Supple Cardiovascular : RRR, no JVP, no lower extremity edema Respiratory : good bilateral air entry, no crackles, wheezes or rhonchi Gastrointestinal: soft, lax, Normal bowel sounds, Non tender Skin : Warm, Dry, decreased swelling, erythema and drainage from left Charcot at foot Neurological : Alert & oriented x3, No focal deficit Objective Data Active Medications Acetaminophen (Acetaminophen 325 Mg Tablet) 650 mg PO Q6H PRN PRN Reason: Pain, Mild (Pain Scale 1-3) Last Admin: 08/18/22 12:01 Dose: 650 mg Documented By: KARISHMA Amlodipine Besylate (Amlodipine Besylate 5 Mg Tablet) 5 mg PO DAILY [facility]; Protocol Last Admin: 08/18/22 11:58 Dose: 5 mg Documented By: KARISHMA Aspirin (Aspirin Enteric Coated 81 Mg Tablet.) 81 mg PO DAILY [facility] Last Admin: 08/18/22 10:07 Dose: 81 mg Documented By: KARISHMA Atorvastatin Calcium (Atorvastatin Calcium 40 Mg Tablet) 40 mg PO DAILY [facility] Last Admin: 08/18/22 10:08 Dose: 40 mg Documented By: KARISHMA Dextrose (Dextrose 50 % 25 Gm/50 Ml Syringe) 25 gm IVPUSH Q15M PRN; Protocol PRN Reason: per Hypoglycemia Standing Ord. Docusate Sodium (Docusate Sodium 100 Mg Capsule) 100 mg PO DAILY PRN PRN Reason: Constipation Ezetimibe (Ezetimibe 10 Mg Tablet) 10 mg PO DAILY [facility] Last Admin: 08/18/22 10:08 Dose: 10 mg Documented By: KARISHMA Empagliflozin (Empagliflozin 25 Mg Tablet) 25 mg PO DAILY [facility] Last Admin: 08/18/22 10:08 Dose: 25 mg Documented By: KARISHMA Enoxaparin Sodium (Enoxaparin Sodium 40 Mg/0.4 Ml Syringe) 40 mg SUBCUT Q24H [facility] Last Admin: 08/17/22 20:28 Dose: 40 mg Documented By: NANO Folic Acid (Folic Acid 1 Mg Tablet) 1 mg PO DAILY [facility] Last Admin: 08/18/22 10:08 Dose: 1 mg Documented By: KARISHMA Glucose (Glucose Gel 15 Gm Gel..Gram.) 15 gm PO Q15M PRN; Protocol PRN Reason: per Hypoglycemia Standing Ord. Vancomycin HCl 1,000 mg/ (Sodium Chloride) 270 mls @ 270 mls/hr IV Q24H [facility] Last Infusion: 08/17/22 23:57 Dose: 0 mls/hr Documented By: NANO Piperacillin Sod/Tazobactam (Sod 3.375 gm/ Sodium Chloride) 50 mls @ 100 mls/hr IV Q6H [facility] Last Infusion: 08/18/22 11:42 Dose: 0 mls/hr Documented By: KARISHMA Insulin Glargine (Insulin Glargine,Hum.Rec.Anlog 100 Unit/Ml 10 Ml Vial) 28 unit SUBCUT DAILY [facility] Last Admin: 08/18/22 12:00 Dose: 28 unit Documented By: KARISHMA Insulin Human Lispro (Insulin Lispro 100 Unit/Ml 3 Ml Vial) 0 unit SUBCUT QIDACHS [facility]; Protocol Last Admin: 08/18/22 12:01 Dose: 2 unit Documented By: KARISHMA Lidocaine (Lidocaine 4 % Patch Adh..Patch) 1 patch TRANSDERMA DAILY [facility] Last Admin: 08/18/22 10:08 Dose: 1 patch Documented By: KARISHMA Magnesium Oxide (Magnesium Oxide 400 Mg Tablet) 400 mg PO TID [facility] Last Admin: 08/18/22 10:08 Dose: 400 mg Documented By: KARISHMA Metoprolol Succinate (Metoprolol Succinate Er 50 Mg Tab.Er.24h) 50 mg PO DAILY [facility]; Protocol Last Admin: 08/18/22 10:08 Dose: 50 mg Documented By: KARISHMA Omeprazole (Omeprazole 20 Mg Capsule.) 20 mg PO BEDTIME [facility] Last Admin: 08/17/22 20:28 Dose: 20 mg Documented By: NANO Ondansetron HCl (Ondansetron Hcl 4 Mg/2 Ml Vial) 4 mg IVPUSH Q8H PRN PRN Reason: Nausea and Vomiting Oxycodone HCl (Oxycodone Hcl Immed Release 5 Mg Tablet) 2.5 mg PO Q4H PRN PRN Reason: Pain, Severe (Pain Scale 7-10) Pharmacy Consult (Consult Rx Perform Med Rec) 1 each MISCELLANE ONCE PRN PRN Reason: Consult order Pharmacy Consult (Consult Rx Vancomycin Dosing) 1 each MISCELLANE DAILY PRN PRN Reason: Consult order Sodium Chloride (0.9 % Sodium Chloride Flush 3 Ml Syringe) 3 ml IVFLUSH QSHIFT [facility] Last Admin: 08/18/22 10:10 Dose: 3 ml Documented By: KARISHMA Vitamin D (Cholecalciferol (Vitamin D3) 25 Mcg Tablet) 25 mcg PO DAILY [facility] Last Admin: 08/18/22 10:07 Dose: 25 mcg Documented By: KARISHMA Labs 08/18/22 06:30 08/18/22 06:30 Labs: Laboratory Results - last 24 hr 08/17/22 08/17/22 08/17/22 18:03 20:03 20:04 MCV MCH MCHC RDW Plt Count MPV Absolute Nucleated RBC Nucleated RBC % (auto) Estim Creat Clear Calc Estimated GFR POC Glucose 172 H 172 H Random Vancomycin 11.7 L 08/18/22 08/18/22 08/18/22 06:30 06:30 07:35 MCV 59.4 L MCH 18.7 L MCHC 31.5 RDW 17.7 H Plt Count 747 H MPV 9.0 L Absolute Nucleated RBC 0.000 Nucleated RBC % (auto) 0.0 Estim Creat Clear Calc 67.4 Estimated GFR > 60 POC Glucose 143 H Random Vancomycin 08/18/22 11:12 MCV MCH MCHC RDW Plt Count MPV Absolute Nucleated RBC Nucleated RBC % (auto) Estim Creat Clear Calc Estimated GFR POC Glucose 190 H Random Vancomycin Microbiology Microbiology Results: Microbiology 08/15/22 16:25 Blood Culture - Final Blood - Venous Staphylococcus aureus 02/08/23 16:09 Blood Culture - Final Blood - Venous Staphylococcus aureus Assessment and Plan (1) Charcot foot due to diabetes mellitus: Status: Acute (2) Cellulitis: Status: Acute (3) Sepsis: Status: Acute Plan Pt is a 57-year-old female with a PMH significant for Charcot foot,?PAD, IBS, CKD, HTN, insulin-dependent DM, and hx of osteomyelitis with multiple debridements who presents to the ED from hematology clinic?for evaluation of elevated temperature and WBCs. Pt will be admitted to the hospital for treatment and further evaluation of chronic diabetic foot ulcer concerning for osteomyelitis. Sepsis 2/2 GPC bacteremia from charcot foot with chronic osteomyelitis Fever resolved WBCs increased to 33 Continue vancomycin and Zosyn blood cultures growing MSSA repeat BCx still negative ID input appreciated Vascular surgery consult, patient will likely need below-knee amputation, scheduled for Saturday Patient resistant to the idea of having amputation, she would preferred to do 6 weeks of IV antibiotics, to discuss with infectious disease specialist Follow vancomycin trough LUIS Creatinine improved back to baseline DC IVF Monitor BMP Back pain CT of abdomen/pelvis w/o contrast d/t LUIS found evidence of perinephric stranding that may be chronic UA negative for UTI, pt denies dysuria and polyuria MRI ?left-sided L4-L5 facet joint with some periarticular edema seen, could be inflammatory vs septic arthritis to treated with Abx and pain control Chest pain, chronic Pt complains of persistent chest pain since last October Cardiology input appreciated, patient is low risk for perioperative cardiac complications COVID infection Pt currently asymptomatic Monitor respiratory status Acute hypokalemia P resolved after replacement Follow BMP Microcytic anemia, chronic Hemoglobin down to 8.2, near baseline Pt seen at hematology for Procrit shot, held for this week F/U outpatient at hematology clinic Insulin-dependent DM with hyperglycemia Hold home meds SSI, lantus Full Code DVT Prophylaxis: Lovenox Pt will require overnight hospital stay for treatment of?diabetic foot infection with osteomyelitis requiring IV abx and possible surgical intervention Time Spent With Patient Time: Total time managing care of this patient today ____ minutes. Quality Stroke Does the patient have a stroke diagnosis?: No VTE Prior VTE?: No VTE Risk Level:: Medical - moderate - high VTE Device Contraindication: Treatment Not Indicated VTE Drug Contraindication: N/A - Med Ordered
[2022-08-18 15:34] VITALS: BP 117/59; PULSE 89; RESP 18; TEMP 37.1; O2SAT 98
[2022-08-18 15:55] LABS: Glucose, Whole Blood 277 mg/dL (60-115)
[2022-08-18 19:57] VITALS: BP 119/60; PULSE 81; RESP 18; TEMP 37; O2SAT 97
[2022-08-18 20:07] LABS: Glucose, Whole Blood 265 mg/dL (60-115)
[2022-08-18] MEDS: Omeprazole 20 MG CAPSULE.DR PO (20:39)
[2022-08-18] MEDS: Enoxaparin Sodium 40 MG/0.4 ML SYRINGE SUBCUT (20:40)
[2022-08-18 20:47] LABS: Vancomycin Random 11.6 mcg/mL (15-20)
[2022-08-18] MEDS: vancomycin HCL 1,500 MG in 0.9 % Sodium Chloride 500 ML 333.33 MG IV (22:26)
[2022-08-18 23:49] VITALS: BP 129/67; PULSE 68; RESP 18; TEMP 37.2; O2SAT 98
[2022-08-19] VITALS (9 sets, daily range): BP systolic 123–152; BP diastolic 59–71; PULSE 75–99; RESP 14–22; TEMP 36.3–37.5; O2SAT 97–100
[2022-08-19] MEDS: Piperacillin Sodium/Tazobactam 3.375 GM in 0.9 % Sodium Chloride 50 ML IV ×2 (00:23→09:34)
[2022-08-19 06:21] LABS: Hematocrit 24.2 % (37.0-47.0); Hemoglobin 7.4 g/dl (12.0-16.0); Mean Corpuscular HGB Conc 30.6 g/dl (31.0-35.0); Mean Corpuscular Hemoglobin 18.6 pg (27.0-33.0); Mean Platelet Volume 9.1 fL (9.4-12.3); NRBC Pct Auto 0.2 /100WBC (0.0-0.2); Platelet Count 756 X10*3/uL (160-400); Red Blood Count 3.97 X10*6/uL (4.20-5.50); Red Cell Distribution Width 18.2 % (11.0-16.0); White Blood Count 27.9 X10*3/uL (4.8-10.8)
[2022-08-19 07:21] LABS: Creatinine Clr Calc Pharmacy 54.9; Estimated Glomerular Filt Rate 55
[2022-08-19 07:49] LABS: Glucose, Whole Blood 154 mg/dL (60-115)
[2022-08-19] MEDS: Atorvastatin Calcium 40 MG TABLET PO (09:31)
[2022-08-19] MEDS: Ezetimibe 10 MG TABLET PO (09:31)
[2022-08-19] MEDS: Aspirin Enteric Coated 81 MG TABLET.DR PO (09:31)
[2022-08-19] MEDS: Folic Acid 1 MG TABLET PO (09:31)
[2022-08-19] MEDS: Cholecalciferol (Vitamin D3) 25 MCG TABLET PO (09:32)
[2022-08-19] MEDS: Magnesium Oxide 400 MG TABLET PO ×3 (09:32→21:15)
[2022-08-19] MEDS: Metoprolol Succinate ER 50 MG TAB.ER.24H PO (09:32)
[2022-08-19] MEDS: amLODIPine Besylate 5 MG TABLET PO (09:32)
[2022-08-19] MEDS: Empagliflozin 25 MG TABLET PO (09:32)
[2022-08-19] MEDS: Insulin Lispro 100 UNIT/ML 3 ML VIAL SUBCUT ×4 (09:33→21:15)
[2022-08-19] MEDS: Insulin Glargine,Hum.rec.anlog 100 UNIT/ML 10 ML VIAL 28 UNIT SUBCUT (09:34)
[2022-08-19] MEDS: 0.9 % Sodium Chloride Flush 3 ML SYRINGE IVFLUSH ×3 (09:35→21:21)
[2022-08-19 11:26] LABS: Glucose, Whole Blood 189 mg/dL (60-115)
--- NOTE | 2022-08-19 11:55 | P.PNIM_ITS ---
Subjective Subjective Date of Service: 08/19/22 Interval History: Seen and evaluated this morning Significant improvement pain Left leg Swelling, erythema and drainage decreased Reports feeling much better overall No reported overnight events Review of Systems Review of Systems: Yes all other systems are reviewed and are negative Physical Exam Vital Signs: Vital Signs: Last Vital Signs Temp 98.2 F 08/19/22 11:02 Pulse 99 08/19/22 11:02 Resp 14 08/19/22 11:02 BP 138/60 08/19/22 11:02 Pulse Ox 99 08/19/22 11:02 O2 Del Method 08/19/22 11:02 O2 Flow Rate 2 08/18/22 04:00 BMI result Body Mass Index 34.3 Const: Other: Constitutional : Awake, interactive Neck : Normal inspection, Supple Cardiovascular : RRR, no JVP, no lower extremity edema Respiratory : good bilateral air entry, no crackles, wheezes or rhonchi Gastrointestinal: soft, lax, Normal bowel sounds, Non tender Skin : Warm, Dry, decreased swelling, erythema and drainage from left Charcot at foot Neurological : Alert & oriented x3, No focal deficit Objective Data Active Medications Acetaminophen (Acetaminophen 325 Mg Tablet) 650 mg PO Q6H PRN PRN Reason: Pain, Mild (Pain Scale 1-3) Last Admin: 08/18/22 23:35 Dose: 650 mg Documented By: NANO Amlodipine Besylate (Amlodipine Besylate 5 Mg Tablet) 5 mg PO DAILY [facility]; Protocol Last Admin: 08/19/22 09:32 Dose: 5 mg Documented By: KARISHMA Aspirin (Aspirin Enteric Coated 81 Mg Tablet.) 81 mg PO DAILY [facility] Last Admin: 08/19/22 09:31 Dose: 81 mg Documented By: KARISHMA Atorvastatin Calcium (Atorvastatin Calcium 40 Mg Tablet) 40 mg PO DAILY [facility] Last Admin: 08/19/22 09:31 Dose: 40 mg Documented By: KARISHMA Dextrose (Dextrose 50 % 25 Gm/50 Ml Syringe) 25 gm IVPUSH Q15M PRN; Protocol PRN Reason: per Hypoglycemia Standing Ord. Docusate Sodium (Docusate Sodium 100 Mg Capsule) 100 mg PO DAILY PRN PRN Reason: Constipation Ezetimibe (Ezetimibe 10 Mg Tablet) 10 mg PO DAILY [facility] Last Admin: 02/12/23 09:31 Dose: 10 mg Documented By: KARISHMA Empagliflozin (Empagliflozin 25 Mg Tablet) 25 mg PO DAILY [facility] Last Admin: 08/19/22 09:32 Dose: 25 mg Documented By: KARISHMA Enoxaparin Sodium (Enoxaparin Sodium 40 Mg/0.4 Ml Syringe) 40 mg SUBCUT Q24H [facility] Last Admin: 08/18/22 20:40 Dose: 40 mg Documented By: NANO Folic Acid (Folic Acid 1 Mg Tablet) 1 mg PO DAILY [facility] Last Admin: 08/19/22 09:31 Dose: 1 mg Documented By: KARISHMA Glucose (Glucose Gel 15 Gm Gel..Gram.) 15 gm PO Q15M PRN; Protocol PRN Reason: per Hypoglycemia Standing Ord. Piperacillin Sod/Tazobactam (Sod 3.375 gm/ Sodium Chloride) 50 mls @ 100 mls/hr IV Q6H [facility] Last Admin: 08/19/22 09:34 Dose: 100 mls/hr Documented By: KARISHMA Vancomycin HCl 1,500 mg/ (Sodium Chloride) 500 mls @ 333.333 mls/hr IV Q24H [facility] Last Infusion: 08/19/22 00:11 Dose: 0 mls/hr Documented By: NANO Insulin Glargine (Insulin Glargine,Hum.Rec.Anlog 100 Unit/Ml 10 Ml Vial) 28 unit SUBCUT DAILY [facility] Last Admin: 08/19/22 09:34 Dose: 28 unit Documented By: KARISHMA Insulin Human Lispro (Insulin Lispro 100 Unit/Ml 3 Ml Vial) 0 unit SUBCUT QIDACHS [facility]; Protocol Last Admin: 08/19/22 09:33 Dose: 2 unit Documented By: KARISHMA Lidocaine (Lidocaine 4 % Patch Adh..Patch) 1 patch TRANSDERMA DAILY [facility] Last Admin: 08/19/22 09:33 Dose: Not Given Documented By: KARISHMA Non-Admin Reason: Patient Refused Magnesium Oxide (Magnesium Oxide 400 Mg Tablet) 400 mg PO TID [facility] Last Admin: 08/19/22 09:32 Dose: 400 mg Documented By: KARISHMA Metoprolol Succinate (Metoprolol Succinate Er 50 Mg Tab.Er.24h) 50 mg PO DAILY [facility]; Protocol Last Admin: 08/19/22 09:32 Dose: 50 mg Documented By: KARISHMA Omeprazole (Omeprazole 20 Mg Capsule.Dr) 20 mg PO BEDTIME [facility] Last Admin: 08/18/22 20:39 Dose: 20 mg Documented By: NANO Ondansetron HCl (Ondansetron Hcl 4 Mg/2 Ml Vial) 4 mg IVPUSH Q8H PRN PRN Reason: Nausea and Vomiting Oxycodone HCl (Oxycodone Hcl Immed Release 5 Mg Tablet) 2.5 mg PO Q4H PRN PRN Reason: Pain, Severe (Pain Scale 7-10) Pharmacy Consult (Consult Rx Perform Med Rec) 1 each MISCELLANE ONCE PRN PRN Reason: Consult order Pharmacy Consult (Consult Rx Vancomycin Dosing) 1 each MISCELLANE DAILY PRN PRN Reason: Consult order Sodium Chloride (0.9 % Sodium Chloride Flush 3 Ml Syringe) 3 ml IVFLUSH QSHIFT [facility] Last Admin: 08/19/22 09:35 Dose: 3 ml Documented By: KARISHMA Vitamin D (Cholecalciferol (Vitamin D3) 25 Mcg Tablet) 25 mcg PO DAILY [facility] Last Admin: 08/19/22 09:32 Dose: 25 mcg Documented By: KARISHMA Labs 08/19/22 05:43 08/19/22 05:43 Labs: Laboratory Results - last 24 hr 08/18/22 08/18/22 08/18/22 15:35 20:00 20:09 MCV MCH MCHC RDW Plt Count MPV Absolute Nucleated RBC Nucleated RBC % (auto) Estim Creat Clear Calc Estimated GFR POC Glucose 277 H 265 H Random Vancomycin 11.6 L 08/19/22 08/19/22 08/19/22 05:43 05:43 07:44 MCV 61.0 L MCH 18.6 L MCHC 30.6 L RDW 18.2 H Plt Count 756 H MPV 9.1 L Absolute Nucleated RBC 0.060 H Nucleated RBC % (auto) 0.2 Estim Creat Clear Calc 54.9 Estimated GFR 55 POC Glucose 154 H Random Vancomycin 08/19/22 11:21 MCV MCH MCHC RDW Plt Count MPV Absolute Nucleated RBC Nucleated RBC % (auto) Estim Creat Clear Calc Estimated GFR POC Glucose 189 H Random Vancomycin Microbiology Microbiology Results: Microbiology 08/17/22 16:29 Blood Culture - Preliminary Blood - Venous Staphylococcus species 08/17/22 16:29 Blood Culture - Preliminary Blood - Venous Staphylococcus species 08/15/22 16:25 Blood Culture - Final Blood - Venous Staphylococcus aureus 08/15/22 16:09 Blood Culture - Final Blood - Venous Staphylococcus aureus Assessment and Plan (1) Charcot foot due to diabetes mellitus: Status: Acute (2) Sepsis: Status: Acute (3) Cellulitis: Status: Acute Plan Pt is a 57-year-old female with a PMH significant for Charcot foot,?PAD, IBS, CKD, HTN, insulin-dependent DM, and hx of osteomyelitis with multiple debridements who presents to the ED from hematology clinic?for evaluation of elevated temperature and WBCs. Pt will be admitted to the hospital for treatment and further evaluation of chronic diabetic foot ulcer concerning for osteomyelitis. Sepsis 2/2 GPC bacteremia from charcot foot with chronic osteomyelitis Fever resolved WBCs decreased to 27 2nd set of blood cultures growing MSSA repeat BCx still negative Discontinue vancomycin and Zosyn Start Ceftriaxone 2 gm Qd ID input appreciated Vascular surgery consult, patient will likely need below-knee amputation Patient resistant to the idea of having amputation, she would preferred to do 6 weeks of IV antibiotics, ID agrees on 2gm CTX for 6 wks LUIS Creatinine improved back to baseline DC IVF Monitor BMP Back pain resolved CT of abdomen/pelvis w/o contrast d/t LUIS found evidence of perinephric stranding that may be chronic UA negative for UTI, pt denies dysuria and polyuria MRI ?left-sided L4-L5 facet joint with some periarticular edema seen, could be inflammatory vs septic arthritis likely from bacteremia Chest pain, chronic Pt complains of persistent chest pain since last October Cardiology input appreciated, patient is low risk for perioperative cardiac co mplications COVID infection Pt currently asymptomatic Monitor respiratory status Acute hypokalemia P resolved after replacement Follow BMP Microcytic anemia, chronic Hemoglobin down to 7.8 Pt seen at hematology for Procrit shot, held for this week F/U outpatient at hematology clinic Insulin-dependent DM with hyperglycemia Hold home meds SSI, lantus Full Code DVT Prophylaxis: Lovenox Pt will require overnight hospital stay for treatment of?diabetic foot infection with osteomyelitis requiring IV abx and possible surgical intervention Time Spent With Patient Time: Total time managing care of this patient today ____ minutes. Quality Stroke Does the patient have a stroke diagnosis?: No VTE Prior VTE?: No VTE Risk Level:: Medical - moderate - high VTE Device Contraindication: Treatment Not Indicated VTE Drug Contraindication: N/A - Med Ordered
[2022-08-19] MEDS: cefTRIAXone sodium 2 GM in 0.9 % Sodium Chloride 50 ML IV (12:29)
[2022-08-19 15:52] LABS: Glucose, Whole Blood 216 mg/dL (60-115)
[2022-08-19] MEDS: Acetaminophen 325 MG TABLET 650 MG PO (18:50)
[2022-08-19 20:10] LABS: Glucose, Whole Blood 197 mg/dL (60-115)
[2022-08-19] MEDS: Omeprazole 20 MG CAPSULE.DR PO (21:14)
[2022-08-19] MEDS: Enoxaparin Sodium 40 MG/0.4 ML SYRINGE SUBCUT (21:15)
[2022-08-20] MEDS: Acetaminophen 325 MG TABLET 650 MG PO ×2 (02:45→15:06)
[2022-08-20 03:47] VITALS: BP 138/64; PULSE 90; RESP 18; TEMP 36.3; O2SAT 96
--- NOTE | 2022-08-20 07:00 | CA_ITS ---
Transthoracic Echocardiogram Patient (Last, First, Middle): Mitra Parish, Gender: Female Date of : 1965 Age: 57 Procedure Date: 08/20/2022 Procedure Type: Transthoracic Echocardiogram Location: [facility] [place] Height: 152.4 cm Weight: 79.38 kg BSA: 1.76 m2 Heart Rate: bpm BP: 166 / 74 mmHg Informal Waiter/Waitress: Referring MD: Lroee Davis MD Symptoms: Bacteremia, R O infective endocarditis Study Quality: Fair ECG Rhythm: Sinus Conclusions: - Normal left ventricular size and systolic function. There is mildly increased left ventricular wall thickness. The visually estimated ejection fraction is between 55-60%. - Elevated filling pressures. - Normal right ventricular cavity size and systolic function. - No obvious vegetation. Findings Left Ventricle Normal left ventricular size and systolic function. There is mildly increased left ventricular wall thickness. The visually estimated ejection fraction is between 55-60%. There is no evidence of regional wall motion abnormalities. Abnormal diastolic function is noted. Spectral Doppler is indicative of a pseudonormal filling pattern. Elevated filling pressures. Right Ventricle Normal right ventricular cavity size and systolic function. Atria The left atrium is mildly dilated. 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 The right atrium is normal in size. Aortic Valve Normal aortic valve structure and function. There is no aortic valve stenosis. There is no aortic valve regurgitation. Mitral Valve Normal mitral valve structure and function. There is trace mitral valve regurgitation. There is no mitral valve stenosis. Pulmonic Valve Normal pulmonic valve structure and function. There is trace pulmonic valve regurgitation. Tricuspid Valve Normal tricuspid valve structure and function. There is trace tricuspid valve regurgitation. Normal right atrial pressure. There is no evidence of pulmonary hypertension. Great Vessels All visible segments of the aorta are normal in size. The visualized portions of the pulmonary artery and branches are normal. Venous The inferior vena cava is normal in size and collapses greater than 50% with inspiration. Pericardium/Pleural There is no evidence of pericardial effusion. Recommendations, Care & Conclusions Consider a ARIC if clinically appropriate. Measurements 2D Linear Measurements IVSd: 0.97 0.6-0.9/0.6-1.0 cm LVIDd: 4.72 3.9-5.3/4.2-5.9 cm LVIDd Index: 2.68 2.4-3.2/2.2-3.1 cm/m2 LVIDs: 3.15 2.0-3.6 cm LVPWd: 1.10 0.7-1.1 cm Ao Root: 3.10 2.1-3.5 cm LA Diam: 3.90 2.7-3.8/3.0-4.0 cm LAIDs Index: 2.22 1.5-2.3 cm/m2 LV Mass: 216.50 67-162/88-224 g LV Mass Index: 123.01 43-95/49-115 g/m2 LVOT Diam: 2.00 3.0+(-)1.3 cm 2D Systolic Function EF 4C: 47.00 >55% EF 2C: 43.80 >55% EF BiP: 46.40 >55% Mitral Valve MV Pk E: 1.01 MV PK A: 0.95 MV Decel Time: 104.00 E/A: 1.10 E'Lateral: 8.16 E'Medial: 5.87 E/E' Med: 17.20 E/E' Lat: 12.40 PHT: 30.00 MVA PHT: 7.33 Decel [place]: 9.71 Aortic Valve AoV Pk [place]: 1.88 AoV Mn [place]: 1.12 AoV VTI: 0.41 AoV Pk Grad: 14.00 Aov Mn Grad: 6.00 DERRELL Cont.VTI: 1.72 LVOT LVOT Pk [place]: 0.93 LVOT Mn [place]: 0.64 LVOT VTI: 0.22 LVOT Pk Grad: 3.00 LVOT Mn Grad: 2.00 LVOT Diam: 2.00 LVOT Area: 3.14 Diastolic Function MV Pk E: 1.01 MV Pk A: 0.95 E/A: 1.10 E'Medial: 5.87 E/E' Med: 17.20 E' Laterial: 8.16 E/E' Lat: 12.40 Tricuspid Valve TR Pk [place]: 2.01 TR Pk Grad: 16.00 RA Press: 8.00 RVSP: 24.00 Great Vessels Aorta Ao Root-2D: 3.10 2.0-3.7 cm Ao Asc: 2.90 2.1-3.4 cm Pulmonary Valve PV Pk [place]: 1.02 Peak PV Grad: 4.00 Updated in Other Vendor System with Status of Final Fede Martínez MD electronically signed on 08/21/2022 3:33:26 PM with status of Final
[2022-08-20 07:21] VITALS: BP 139/73; PULSE 86; RESP 20; TEMP 36.5; O2SAT 99
[2022-08-20 07:34] LABS: Glucose, Whole Blood 219 mg/dL (60-115)
[2022-08-20 08:00] LABS: Creatinine Clr Calc Pharmacy 72.6; Estimated Glomerular Filt Rate > 60
[2022-08-20] MEDS: Empagliflozin 25 MG TABLET PO (08:31)
[2022-08-20] MEDS: Ezetimibe 10 MG TABLET PO (08:31)
[2022-08-20] MEDS: Atorvastatin Calcium 40 MG TABLET PO (08:31)
[2022-08-20] MEDS: Metoprolol Succinate ER 50 MG TAB.ER.24H PO (08:31)
[2022-08-20] MEDS: Cholecalciferol (Vitamin D3) 25 MCG TABLET PO (08:31)
[2022-08-20] MEDS: 0.9 % Sodium Chloride Flush 3 ML SYRINGE IVFLUSH ×3 (08:32→20:01)
[2022-08-20] MEDS: Folic Acid 1 MG TABLET PO (08:32)
[2022-08-20] MEDS: amLODIPine Besylate 5 MG TABLET PO (08:32)
[2022-08-20] MEDS: Aspirin Enteric Coated 81 MG TABLET.DR PO (08:32)
[2022-08-20] MEDS: Magnesium Oxide 400 MG TABLET PO ×3 (08:32→20:02)
--- NOTE | 2022-08-20 09:56 | P.CDIC_ITS ---
CDI Concurrent Query Documentation Clarification: PHYSICIAN'S DOCUMENTATION REQUEST Date of Query: 08/20/22 0956 Patient Name: Mitra Parish Admit Date: 08/15/22 Dear Doctor, A review of the medical record indicates additional documentation may be needed. Please review below and update the documentation accordingly. Clinical Indicators: Risk Factors/Clinical Indicators/Treatments Dx: Cellulitis, acute Swelling, erythema of left foot. IV Vancomycin, Ceftriaxone, Zosyn, IV fluids. Please clarify the following regarding Diabetes Mellitus (DM): Cellulitis (left foot) due to/associated with Diabetes mellitus Type 2 Cellulitis left foot * Other complication ? please specify * Unable to determine Use of terms such as suspected, likely, concern for, or probable (associated with a specific diagnosis that is being evaluated, monitored, or treated as if it exists) are acceptable and can be coded in the inpatient setting, when documented at the time of discharge. Thank you, Martha Lees [facility], CDIS Extension: [phone] Please use your independent medical judgment in providing your response. THIS QUERY IS PART OF THE PERMANENT MEDICAL RECORD Provider Response: Other Other Diagnosis: Associated with type 2 diabetes
--- NOTE | 2022-08-20 10:26 | P.PNVS_ITS ---
Subjective Subjective Date of Service: 08/20/22 Patient reports: no new complaints and feels better Interval history: Patient seen and examined. No significant events over the past weekend. She reports that she is no longer interested in undergoing amputation. She now presents for routine follow-up. Physical Exam Vital Signs: Vital Signs: Last Vital Signs Temp 97.7 F 08/20/22 07:21 Pulse 86 08/20/22 07:21 Resp 20 08/20/22 07:21 BP 139/73 08/20/22 07:21 Pulse Ox 99 08/20/22 07:21 O2 Del Method 08/20/22 07:21 O2 Flow Rate 2 08/18/22 04:00 BMI result Body Mass Index 34.3 Const: General: cooperative, healthy appearing and comfortable [place] ation/consciousness: oriented to person, oriented to place and oriented to time HEENT: Head: Yes normal to inspection Neck: Neck: Yes normal visual inspection Carotids: no bruits Chest: Chest palpation & inspection: normal inspection of the chest Resp: Effort & Inspection: normal respiratory effort and able to speak in complete sentences Auscultation: clear to auscultation bilaterally, no crackles, no rales, no rhonchi and no wheezes Cardio: Rate: regular rate Rhythm: regular rhythm Heart sounds: S1 normal heart sound present and S2 normal heart sound present Bruits: no carotid bruits Peripheral pulses: Peripheral pulses 2+ throughout GI: Inspection: Yes normal to inspection Skin: Other: Left foot diabetic infection. Boggy and edematous. Serous drainage. No fluctuant pockets noted Wounds: no wounds Hair: normal Neuro: General: oriented to person, oriented to place and oriented to time Cranial nerves: Yes CN's II-XII intact bilaterally and Yes Normal hearing present Cognition (Neuro): normal cognition Motor exam (neuro): 5/5 motor strength present throughout Extrem: Other: venous exam: No significant superficial varicosities or spider telangiectasia s, minimal edema General: No clubbing, No cyanosis and No edema Psych: Appearance: grossly normal Mental Status: mental status grossly normal Speech and movement: Normal speech and movement present Progress Note: A&P Assessment and plan (1) Ulcer of left foot due to type 2 diabetes mellitus: Status: Acute Assessment and Plan: In short patient has left foot diabetic ulcer along with a Charcot foot. This will not heal. I also believe this may be the source of her sepsis. At the current time the patient is refusing surgery. I had an extended discussion with the patient this morning regarding this. This may lead to further limb loss sepsis and . She did demonstrate an understanding of this. I did try to convince the patient that this may lead to serious complications. At the current time she continued to deny any further treatment and would like to manage this conservatively. We will follow on an as-needed basis. Thank you for allowing us to assist in this patient's care. Time Spent With Patient Time: Total time managing care of this patient today _60___ minutes. This included record assessment, management of services, imaging review, extensive discussion with the patient as she is currently refusing surgery. Procedures Date of Service Date of Service: 08/20/22 Quality Stroke Does the patient have a stroke diagnosis?: No VTE Prior VTE?: No VTE Risk Level:: Medical - moderate - high VTE Device Contraindication: Treatment Not Indicated VTE Drug Contraindication: N/A - Med Ordered
[2022-08-20] MEDS: Insulin Lispro 100 UNIT/ML 3 ML VIAL SUBCUT ×4 (10:28→20:01)
[2022-08-20] MEDS: Insulin Glargine,Hum.rec.anlog 100 UNIT/ML 10 ML VIAL 28 UNIT SUBCUT (10:28)
--- NOTE | 2022-08-20 10:57 | P.PNIM_ITS ---
Subjective Subjective Date of Service: 08/20/22 Interval History: Seen and evaluated this morning Feels better overall Left leg Swelling, erythema and drainage decreased Cultures negative after 24 hours No reported overnight events Review of Systems Review of Systems: Yes all other systems are reviewed and are negative Physical Exam Vital Signs: Vital Signs: Last Vital Signs Temp 97.7 F 08/20/22 07:21 Pulse 86 08/20/22 07:21 Resp 20 08/20/22 07:21 BP 139/73 08/20/22 07:21 Pulse Ox 99 08/20/22 07:21 O2 Del Method 08/20/22 07:21 O2 Flow Rate 2 08/18/22 04:00 BMI result Body Mass Index 34.3 Const: Other: Constitutional : Awake, interactive Neck : Normal inspection, Supple Cardiovascular : RRR, no JVP, no lower extremity edema Respiratory : good bilateral air entry, no crackles, wheezes or rhonchi Gastrointestinal: soft, lax, Normal bowel sounds, Non tender Skin : Warm, Dry, decreased swelling, erythema and drainage from left Charcot at foot Neurological : Alert & oriented x3, No focal deficit Objective Data Active Medications Acetaminophen (Acetaminophen 325 Mg Tablet) 650 mg PO Q6H PRN PRN Reason: Pain, Mild (Pain Scale 1-3) Last Admin: 08/20/22 02:45 Dose: 650 mg Documented By: NANO Amlodipine Besylate (Amlodipine Besylate 5 Mg Tablet) 5 mg PO DAILY [facility]; Protocol Last Admin: 08/20/22 08:32 Dose: 5 mg Documented By: RACHAEL Aspirin (Aspirin Enteric Coated 81 Mg Tablet.) 81 mg PO DAILY [facility] Last Admin: 08/20/22 08:32 Dose: 81 mg Documented By: RACHAEL Atorvastatin Calcium (Atorvastatin Calcium 40 Mg Tablet) 40 mg PO DAILY [facility] Last Admin: 08/20/22 08:31 Dose: 40 mg Documented By: RACHAEL Dextrose (Dextrose 50 % 25 Gm/50 Ml Syringe) 25 gm IVPUSH Q15M PRN; Protocol PRN Reason: per Hypoglycemia Standing Ord. Docusate Sodium (Docusate Sodium 100 Mg Capsule) 100 mg PO DAILY PRN PRN Reason: Constipation Ezetimibe (Ezetimibe 10 Mg Tablet) 10 mg PO DAILY [facility] Last Admin: 08/20/22 08:31 Dose: 10 mg Documented By: RACHAEL Empagliflozin (Empagliflozin 25 Mg Tablet) 25 mg PO DAILY [facility] Last Admin: 08/20/22 08:31 Dose: 25 mg Documented By: RACHAEL Enoxaparin Sodium (Enoxaparin Sodium 40 Mg/0.4 Ml Syringe) 40 mg SUBCUT Q24H [facility] Last Admin: 08/19/22 21:15 Dose: 40 mg Documented By: NANO Folic Acid (Folic Acid 1 Mg Tablet) 1 mg PO DAILY [facility] Last Admin: 08/20/22 08:32 Dose: 1 mg Documented By: RACHAEL Glucose (Glucose Gel 15 Gm Gel..Gram.) 15 gm PO Q15M PRN; Protocol PRN Reason: per Hypoglycemia Standing Ord. Ceftriaxone Sodium 2 gm/ (Sodium Chloride) 50 mls @ 100 mls/hr IV Q24H [facility] Last Infusion: 08/19/22 15:42 Dose: 0 mls/hr Documented By: KARISHMA Insulin Glargine (Insulin Glargine,Hum.Rec.Anlog 100 Unit/Ml 10 Ml Vial) 28 unit SUBCUT DAILY [facility] Last Admin: 08/20/22 10:28 Dose: 28 unit Documented By: RACHAEL Insulin Human Lispro (Insulin Lispro 100 Unit/Ml 3 Ml Vial) 0 unit SUBCUT QIDACHS [facility]; Protocol Last Admin: 08/20/22 10:28 Dose: 4 unit Documented By: RACHAEL Lidocaine (Lidocaine 4 % Patch Adh..Patch) 1 patch TRANSDERMA DAILY [facility] Last Admin: 08/20/22 08:35 Dose: Not Given Documented By: RACHAEL Non-Admin Reason: Patient Refused Magnesium Oxide (Magnesium Oxide 400 Mg Tablet) 400 mg PO TID [facility] Last Admin: 08/20/22 08:32 Dose: 400 mg Documented By: RACHAEL Metoprolol Succinate (Metoprolol Succinate Er 50 Mg Tab.Er.24h) 50 mg PO DAILY [facility]; Protocol Last Admin: 08/20/22 08:31 Dose: 50 mg Documented By: RACHAEL Omeprazole (Omeprazole 20 Mg Capsule.Dr) 20 mg PO BEDTIME [facility] Last Admin: 08/19/22 21:14 Dose: 20 mg Documented By: NANO Ondansetron HCl (Ondansetron Hcl 4 Mg/2 Ml Vial) 4 mg IVPUSH Q8H PRN PRN Reason: Nausea and Vomiting Oxycodone HCl (Oxycodone Hcl Immed Release 5 Mg Tablet) 2.5 mg PO Q4H PRN PRN Reason: Pain, Severe (Pain Scale 7-10) Pharmacy Consult (Consult Rx Perform Med Rec) 1 each MISCELLANE ONCE PRN PRN Reason: Consult order Sodium Chloride (0.9 % Sodium Chloride Flush 3 Ml Syringe) 3 ml IVFLUSH QSHIFT [facility] Last Admin: 08/20/22 08:32 Dose: 3 ml Documented By: RACHAEL Vitamin D (Cholecalciferol (Vitamin D3) 25 Mcg Tablet) 25 mcg PO DAILY [facility] Last Admin: 08/20/22 08:31 Dose: 25 mcg Documented By: RACHAEL Labs 08/19/22 05:43 08/20/22 07:09 Labs: Laboratory Results - last 24 hr 08/17/22 08/19/22 08/19/22 12:41 11:21 15:44 Estim Creat Clear Calc Estimated GFR POC Glucose 189 H 216 H Blood Type O Positive Antibody Screen NEGATIVE Crossmatch See Detail 08/19/22 08/20/22 08/20/22 19:51 07:09 07:28 Estim Creat Clear Calc 72.6 Estimated GFR > 60 POC Glucose 197 H 219 H Blood Type Antibody Screen Crossmatch Microbiology Microbiology Results: Microbiology 08/19/22 08:03 Blood Culture - Preliminary Blood - Venous No growth after 24 hours. 08/19/22 08:08 Blood Culture - Preliminary Blood - Venous No growth after 24 hours. 08/17/22 16:29 Blood Culture - Final Blood - Venous Staphylococcus aureus 08/17/22 16:29 Blood Culture - Final Blood - Venous Staphylococcus aureus Assessment and Plan (1) Ulcer of left foot due to type 2 diabetes mellitus: Status: Acute (2) Sepsis: Status: Acute (3) Charcot foot due to diabetes mellitus: Status: Acute (4) COVID-19: Status: Acute Plan Pt is a 57-year-old female with a PMH significant for Charcot foot,?PAD, IBS, CKD, HTN, insulin-dependent DM, and hx of osteomyelitis with multiple debridements who presents to the ED from hematology clinic?for evaluation of elevated temperature and WBCs. Pt will be admitted to the hospital for treatment and further evaluation of chronic diabetic foot ulcer concerning for osteomyelitis. Sepsis 2/2 GPC bacteremia from charcot foot with chronic osteomyelitis Fever resolved WBCs decreased to 27 2nd set of blood cultures growing MSSA repeat BCx still negative Discontinue vancomycin and Zosyn Continue Ceftriaxone 2 gm Qd ID input appreciated Vascular surgery consult, patient will likely need surgical intervention amputation but she is refusing at this point, she understand the risk associated with the Patient resistant to the idea of having amputation, she would preferred to do 6 weeks of IV antibiotics, ID agrees on 2gm CTX for 6 wks LUIS Creatinine improved back to baseline DC IVF Monitor BMP Back pain resolved, seems to be related to acute illness with sepsis and bacteremia CT of abdomen/pelvis w/o contrast d/t LUIS found evidence of perinephric stranding that may be chronic UA negative for UTI, pt denies dysuria and polyuria MRI ?left-sided L4-L5 facet joint with some periarticular edema seen, could be inflammatory vs septic arthritis Chest pain, chronic Pt complains of persistent chest pain since last October Cardiology input appreciated, patient is low risk for perioperative cardiac complications COVID infection Pt currently asymptomatic Monitor respiratory status Acute hypokalemia P resolved after replacement Follow BMP Microcytic anemia, chronic Hemoglobin down to 7.8 Pt seen at hematology for Procrit shot, held for this week F/U outpatient at hematology clinic Insulin-dependent DM with hyperglycemia Hold home meds SSI, lantus Full Code DVT Prophylaxis: Lovenox Pt will require overnight hospital stay for treatment of?diabetic foot infection with osteomyelitis requiring IV abx and possible surgical intervention Time Spent With Patient Time: Total time managing care of this patient today ____ minutes. Quality Stroke Does the patient have a stroke diagnosis?: No VTE Prior VTE?: No VTE Risk Level:: Medical - moderate - high VTE Device Contraindication: Treatment Not Indicated VTE Drug Contraindication: N/A - Med Ordered
[2022-08-20 11:04] LABS: Glucose, Whole Blood 171 mg/dL (60-115)
[2022-08-20 11:28] VITALS: BP 155/71; PULSE 88; RESP 20; TEMP 36.8; O2SAT 99
--- NOTE | 2022-08-20 12:02 | MHC.CM.PN ---
Addendum entered by Kym Coats 08/20/22 14:52: [facility] will not be able to provide services at this time. Other referrals have been sent. [facility] has been notified that they may need to provide nursing. Addendum entered by Kym Coats 08/20/22 13:53: Patient has experience with Home Infusion. She has received services from [facility] and [facility] a few months ago. Both agencies are the Pt's preferred providers. Original Note: Per MD rounds Patient will require IV ABX at discharge. Blood cultures are pending. Line to be placed once B.C. are clear. A referral has been sent to [facility] and [facility] for home infusion services.
[2022-08-20] MEDS: cefTRIAXone sodium 2 GM in 0.9 % Sodium Chloride 50 ML IV (13:15)
[2022-08-20 15:28] VITALS: BP 153/77; PULSE 94; RESP 19; TEMP 37.1; O2SAT 98
[2022-08-20 15:51] LABS: Glucose, Whole Blood 240 mg/dL (60-115)
[2022-08-20 19:38] VITALS: BP 157/76; PULSE 88; RESP 19; TEMP 37.1; O2SAT 97
[2022-08-20 19:55] LABS: Glucose, Whole Blood 224 mg/dL (60-115)
[2022-08-20] MEDS: Enoxaparin Sodium 40 MG/0.4 ML SYRINGE SUBCUT (20:01)
[2022-08-20] MEDS: Omeprazole 20 MG CAPSULE.DR PO (20:02)
[2022-08-20 23:32] VITALS: BP 139/63; PULSE 98; RESP 18; TEMP 36.6; O2SAT 94
--- NOTE | 2022-08-21 00:53 | PC.NURSE ---
08/20/22 2100 lab called with positive blood cultures gram + cocci. notified pt on IV rocephin.No new orders at this time.
[2022-08-21 04:00] VITALS: BP 158/71; PULSE 104; RESP 20; TEMP 37; O2SAT 94
[2022-08-21 06:46] LABS: Hematocrit 27.2 % (37.0-47.0); Hemoglobin 8.3 g/dl (12.0-16.0); Mean Corpuscular HGB Conc 30.5 g/dl (31.0-35.0); Mean Corpuscular Hemoglobin 18.9 pg (27.0-33.0); Mean Platelet Volume 8.8 fL (9.4-12.3); NRBC Pct Auto 0.2 /100WBC (0.0-0.2); Platelet Count 766 X10*3/uL (160-400); Red Blood Count 4.38 X10*6/uL (4.20-5.50); Red Cell Distribution Width 20.6 % (11.0-16.0); White Blood Count 25.1 X10*3/uL (4.8-10.8)
[2022-08-21 06:49] LABS: Mean Corpuscular Volume 62.1 fL (80.0-98.0)
[2022-08-21 06:54] LABS: Estimated Glomerular Filt Rate > 60
[2022-08-21 07:25] LABS: Glucose, Whole Blood 125 mg/dL (60-115)
[2022-08-21 07:51] VITALS: BP 146/70; PULSE 99; RESP 20; TEMP 36.7; O2SAT 97
[2022-08-21] MEDS: amLODIPine Besylate 5 MG TABLET PO (10:22)
[2022-08-21] MEDS: Insulin Glargine,Hum.rec.anlog 100 UNIT/ML 10 ML VIAL 28 UNIT SUBCUT (10:22)
[2022-08-21] MEDS: Ezetimibe 10 MG TABLET PO (10:22)
[2022-08-21] MEDS: Metoprolol Succinate ER 50 MG TAB.ER.24H PO (10:23)
[2022-08-21] MEDS: Atorvastatin Calcium 40 MG TABLET PO (10:23)
[2022-08-21] MEDS: Folic Acid 1 MG TABLET PO (10:23)
[2022-08-21] MEDS: Aspirin Enteric Coated 81 MG TABLET.DR PO (10:23)
[2022-08-21] MEDS: Cholecalciferol (Vitamin D3) 25 MCG TABLET PO (10:23)
[2022-08-21] MEDS: Empagliflozin 25 MG TABLET PO (10:23)
[2022-08-21] MEDS: 0.9 % Sodium Chloride Flush 3 ML SYRINGE IVFLUSH ×3 (10:24→21:39)
[2022-08-21] MEDS: Magnesium Oxide 400 MG TABLET PO ×3 (10:24→21:39)
[2022-08-21] MEDS: Lidocaine 4 % Patch ADH..PATCH 1 PATCH TRANSDERMA (10:24)
[2022-08-21] MEDS: Acetaminophen 325 MG TABLET 650 MG PO ×2 (10:25→21:39)
[2022-08-21 11:18] LABS: Glucose, Whole Blood 182 mg/dL (60-115)
[2022-08-21 11:56] VITALS: BP 157/73; PULSE 92; RESP 20; TEMP 36.6; O2SAT 98
[2022-08-21] MEDS: Insulin Lispro 100 UNIT/ML 3 ML VIAL SUBCUT ×3 (12:24→21:38)
--- NOTE | 2022-08-21 12:46 | P.PNIM_ITS ---
Subjective Subjective Date of Service: 08/21/22 Interval History: Seen and evaluated this morning Feels better overall Left leg Swelling, erythema and drainage decreased Cultures negative after 24 hours No reported overnight events Review of Systems Review of Systems: Yes all other systems are reviewed and are negative Physical Exam Vital Signs: Vital Signs: Last Vital Signs Temp 97.9 F 08/21/22 11:56 Pulse 92 08/21/22 11:56 Resp 20 08/21/22 11:56 BP 157/73 H 08/21/22 11:56 Pulse Ox 98 08/21/22 11:56 O2 Del Method 08/21/22 11:56 O2 Flow Rate 2 08/18/22 04:00 BMI result Body Mass Index 34.3 Const: Other: Constitutional : Awake, interactive Neck : Normal inspection, Supple Cardiovascular : RRR, no JVP, no lower extremity edema Respiratory : good bilateral air entry, no crackles, wheezes or rhonchi Gastrointestinal: soft, lax, Normal bowel sounds, Non tender Skin : Warm, Dry, decreased swelling, erythema and drainage from left Charcot at foot Neurological : Alert & oriented x3, No focal deficit Objective Data Active Medications Acetaminophen (Acetaminophen 325 Mg Tablet) 650 mg PO Q6H PRN PRN Reason: Pain, Mild (Pain Scale 1-3) Last Admin: 08/21/22 10:25 Dose: 650 mg Documented By: RACHAEL Amlodipine Besylate (Amlodipine Besylate 5 Mg Tablet) 5 mg PO DAILY [facility]; Protocol Last Admin: 08/21/22 10:22 Dose: 5 mg Documented By: RACHAEL Aspirin (Aspirin Enteric Coated 81 Mg Tablet.) 81 mg PO DAILY [facility] Last Admin: 08/21/22 10:23 Dose: 81 mg Documented By: RACHAEL Atorvastatin Calcium (Atorvastatin Calcium 40 Mg Tablet) 40 mg PO DAILY [facility] Last Admin: 08/21/22 10:23 Dose: 40 mg Documented By: RACHAEL Dextrose (Dextrose 50 % 25 Gm/50 Ml Syringe) 25 gm IVPUSH Q15M PRN; Protocol PRN Reason: per Hypoglycemia Standing Ord. Docusate Sodium (Docusate Sodium 100 Mg Capsule) 100 mg PO DAILY PRN PRN Reason: Constipation Ezetimibe (Ezetimibe 10 Mg Tablet) 10 mg PO DAILY [facility] Last Admin: 08/21/22 10:22 Dose: 10 mg Documented By: RACHAEL Empagliflozin (Empagliflozin 25 Mg Tablet) 25 mg PO DAILY [facility] Last Admin: 08/21/22 10:23 Dose: 25 mg Documented By: RACHAEL Enoxaparin Sodium (Enoxaparin Sodium 40 Mg/0.4 Ml Syringe) 40 mg SUBCUT Q24H [facility] Last Admin: 08/20/22 20:01 Dose: 40 mg Documented By: MYESHA Folic Acid (Folic Acid 1 Mg Tablet) 1 mg PO DAILY [facility] Last Admin: 08/21/22 10:23 Dose: 1 mg Documented By: RACHAEL Glucose (Glucose Gel 15 Gm Gel..Gram.) 15 gm PO Q15M PRN; Protocol PRN Reason: per Hypoglycemia Standing Ord. Ceftriaxone Sodium 2 gm/ (Sodium Chloride) 50 mls @ 100 mls/hr IV Q24H [facility] Last Infusion: 08/20/22 14:01 Dose: 0 mls/hr Documented By: KVNG Insulin Glargine (Insulin Glargine,Hum.Rec.Anlog 100 Unit/Ml 10 Ml Vial) 28 unit SUBCUT DAILY [facility] Last Admin: 08/21/22 10:22 Dose: 28 unit Documented By: RACHAEL Insulin Human Lispro (Insulin Lispro 100 Unit/Ml 3 Ml Vial) 0 unit SUBCUT QIDACHS [facility]; Protocol Last Admin: 08/21/22 12:24 Dose: 2 unit Documented By: RACHAEL Lidocaine (Lidocaine 4 % Patch Adh..Patch) 1 patch TRANSDERMA DAILY [facility] Last Admin: 08/21/22 10:24 Dose: 1 patch Documented By: RACHAEL Magnesium Oxide (Magnesium Oxide 400 Mg Tablet) 400 mg PO TID [facility] Last Admin: 08/21/22 10:24 Dose: 400 mg Documented By: RACHAEL Metoprolol Succinate (Metoprolol Succinate Er 50 Mg Tab.Er.24h) 50 mg PO DAILY [facility]; Protocol Last Admin: 08/21/22 10:23 Dose: 50 mg Documented By: RACHAEL Omeprazole (Omeprazole 20 Mg Capsule.Dr) 20 mg PO BEDTIME [facility] Last Admin: 08/20/22 20:02 Dose: 20 mg Documented By: MYESHA Ondansetron HCl (Ondansetron Hcl 4 Mg/2 Ml Vial) 4 mg IVPUSH Q8H PRN PRN Reason: Nausea and Vomiting Pharmacy Consult (Consult Rx Perform Med Rec) 1 each MISCELLANE ONCE PRN PRN Reason: Consult order Sodium Chloride (0.9 % Sodium Chloride Flush 3 Ml Syringe) 3 ml IVFLUSH QSHIFT [facility] Last Admin: 08/21/22 10:24 Dose: 3 ml Documented By: RACHAEL Vitamin D (Cholecalciferol (Vitamin D3) 25 Mcg Tablet) 25 mcg PO DAILY [facility] Last Admin: 08/21/22 10:23 Dose: 25 mcg Documented By: RACHAEL Labs 08/21/22 06:13 08/21/22 06:13 Labs: Laboratory Results - last 24 hr 08/20/22 08/20/22 08/21/22 15:30 19:40 06:13 MCV MCH MCHC RDW Plt Count MPV Absolute Nucleated RBC Nucleated RBC % (auto) Estim Creat Clear Calc 82.0 Estimated GFR > 60 POC Glucose 240 H 224 H 08/21/22 08/21/22 08/21/22 06:13 07:20 11:14 MCV 62.1 L MCH 18.9 L MCHC 30.5 L RDW 20.6 H Plt Count 766 H MPV 8.8 L Absolute Nucleated RBC 0.040 H Nucleated RBC % (auto) 0.2 Estim Creat Clear Calc Estimated GFR POC Glucose 125 H 182 H Microbiology Microbiology Results: Microbiology 08/19/22 08:03 Blood Culture - Preliminary Blood - Venous No growth after 48 hours. 08/19/22 08:08 Blood Culture - Final Blood - Venous Staphylococcus aureus 08/17/22 16:29 Blood Culture - Final Blood - Venous Staphylococcus aureus 08/17/22 16:29 Blood Culture - Final Blood - Venous Staphylococcus aureus Assessment and Plan (1) Ulcer of left foot due to type 2 diabetes mellitus: Status: Acute (2) Sepsis: Status: Acute (3) Charcot foot due to diabetes mellitus: Status: Acute (4) COVID-19: Status: Acute Plan 57-year-old female with a PMH significant for Charcot foot,?PAD, IBS, CKD, HTN, insulin-dependent DM, and hx of osteomyelitis with multiple debridements who presents to the ED from hematology clinic?for evaluation of elevated temperature and WBCs. Pt will be admitted to the hospital for treatment and further evaluation of chronic diabetic foot ulcer concerning for osteomyelitis. Sepsis 2/2 MSSA bacteremia from charcot foot with chronic osteomyelitis Continue Ceftriaxone 2 gm daily for 6 weeks cultures still positive patient advised for BKA but declined, will treat with iv abx for now LUIS Creatinine improved back to baseline Back pain resolved, seems to be related to acute illness with sepsis and bacteremia CT of abdomen/pelvis w/o contrast d/t LUIS found evidence of perinephric stranding that may be chronic UA negative for UTI, pt denies dysuria and polyuria MRI ?left-sided L4-L5 facet joint with some periarticular edema seen, could be inflammatory vs septic arthritis Chest pain, chronic Pt complains of persistent chest pain since last October Cardiology input appreciated, patient is low risk for perioperative cardiac complications COVID infection Pt currently asymptomatic Monitor respiratory status Acute hypokalemia resolved after replacement Microcytic anemia, chronic, ?thallasemia Pt seen at hematology for Procrit shot, held for this week F/U outpatient at hematology clinic Insulin-dependent DM with hyperglycemia Hold home meds SSI, lantus Full Code DVT Prophylaxis: Lovenox reason for continued hospitalization:bacteremia Time Spent With Patient Time: Total time managing care of this patient today ____ minutes. Quality Stroke Does the patient have a stroke diagnosis?: No VTE Prior VTE?: No VTE Risk Level:: Medical - moderate - high VTE Device Contraindication: Treatment Not Indicated VTE Drug Contraindication: N/A - Med Ordered
--- NOTE | 2022-08-21 14:50 | MHC.CM.PN ---
CM SPOKE WITH [facility] LIAISON WICHO WHO WILL GIVE PT A REFRESHER TEACH ON IV (PT IS PROFICIENT SHE HAS JUST DONE AN IV INDEP. RECENTLY) [facility] HAS ACCEPTED PT FOR SERVICES PENDING PCP VERIFICATION . CM WILL CONTINUE TO FOLLOW
[2022-08-21 15:42] VITALS: BP 139/74; PULSE 91; RESP 17; TEMP 36.8; O2SAT 95
[2022-08-21 16:07] LABS: Glucose, Whole Blood 199 mg/dL (60-115)
[2022-08-21] MEDS: cefTRIAXone sodium 2 GM in 0.9 % Sodium Chloride 50 ML IV (16:32)
[2022-08-21 20:00] VITALS: BP 146/65; PULSE 91; RESP 17; TEMP 36.9; O2SAT 96
[2022-08-21 20:40] LABS: Glucose, Whole Blood 197 mg/dL (60-115)
[2022-08-21] MEDS: Omeprazole 20 MG CAPSULE.DR PO (21:39)
[2022-08-21 23:38] VITALS: BP 135/62; PULSE 93; RESP 18; TEMP 37.3; O2SAT 94
[2022-08-22 03:32] VITALS: BP 161/75; PULSE 93; RESP 18; TEMP 37.5; O2SAT 96
[2022-08-22 07:24] VITALS: BP 142/70; PULSE 97; RESP 18; TEMP 36.8; O2SAT 98
[2022-08-22 07:29] LABS: Glucose, Whole Blood 152 mg/dL (60-115)
[2022-08-22 07:53] LABS: Hematocrit 29.1 % (37.0-47.0); Hemoglobin 8.7 g/dl (12.0-16.0); Mean Corpuscular HGB Conc 29.9 g/dl (31.0-35.0); Mean Corpuscular Hemoglobin 19.1 pg (27.0-33.0); Mean Platelet Volume 9.6 fL (9.4-12.3); NRBC Pct Auto 0.2 /100WBC (0.0-0.2); Platelet Count 696 X10*3/uL (160-400); Red Blood Count 4.55 X10*6/uL (4.20-5.50); Red Cell Distribution Width 21.8 % (11.0-16.0); White Blood Count 22.3 X10*3/uL (4.8-10.8)
[2022-08-22] MEDS: Insulin Glargine,Hum.rec.anlog 100 UNIT/ML 10 ML VIAL 28 UNIT SUBCUT (07:55)
[2022-08-22] MEDS: Insulin Lispro 100 UNIT/ML 3 ML VIAL SUBCUT ×4 (07:55→22:07)
[2022-08-22] MEDS: 0.9 % Sodium Chloride Flush 3 ML SYRINGE IVFLUSH ×2 (07:56→15:08)
[2022-08-22] MEDS: Magnesium Oxide 400 MG TABLET PO ×3 (07:58→22:07)
[2022-08-22] MEDS: amLODIPine Besylate 5 MG TABLET PO (07:58)
[2022-08-22] MEDS: Aspirin Enteric Coated 81 MG TABLET.DR PO (07:59)
[2022-08-22] MEDS: Ezetimibe 10 MG TABLET PO (07:59)
[2022-08-22] MEDS: Atorvastatin Calcium 40 MG TABLET PO (07:59)
[2022-08-22] MEDS: Cholecalciferol (Vitamin D3) 25 MCG TABLET PO (07:59)
[2022-08-22] MEDS: Metoprolol Succinate ER 50 MG TAB.ER.24H PO (07:59)
[2022-08-22] MEDS: Folic Acid 1 MG TABLET PO (07:59)
[2022-08-22 08:13] LABS: Anion Gap 19 (12-20); Blood Urea Nitrogen 16 mg/dL (9-16); Calcium 8.9 mg/dL (8.4-10.2); Carbon Dioxide 23 mmol/L (22-29); Chloride 102 mmol/L (96-108); Estimated Glomerular Filt Rate > 60; Glucose Fasting 150 mg/dL (60-99); Potassium 4.7 mmol/L (3.3-5.1); Sodium 139 mmol/L (135-145)
--- NOTE | 2022-08-22 09:21 | P.PNIM_ITS ---
Subjective Subjective Date of Service: 08/22/22 Interval History: no complaints Physical Exam Vital Signs: Vital Signs: Last Vital Signs Temp 98.2 F 08/22/22 07:24 Pulse 97 08/22/22 07:24 Resp 18 08/22/22 07:24 BP 142/70 H 08/22/22 07:24 Pulse Ox 98 08/22/22 07:24 O2 Del Method 08/22/22 07:24 O2 Flow Rate 2 08/18/22 04:00 BMI result Body Mass Index 34.3 Const: Other: Constitutional : Awake, interactive Neck : Normal inspection, Supple Cardiovascular : RRR, no JVP, no lower extremity edema Respiratory : good bilateral air entry, no crackles, wheezes or rhonchi Gastrointestinal: soft, lax, Normal bowel sounds, Non tender Skin : Warm, Dry, decreased swelling, erythema and drainage from left Charcot at foot Neurological : Alert & oriented x3, No focal deficit Objective Data Active Medications Acetaminophen (Acetaminophen 325 Mg Tablet) 650 mg PO Q6H PRN PRN Reason: Pain, Mild (Pain Scale 1-3) Last Admin: 08/21/22 21:39 Dose: 650 mg Documented By: SHELLI Amlodipine Besylate (Amlodipine Besylate 5 Mg Tablet) 5 mg PO DAILY [facility]; Protocol Last Admin: 08/22/22 07:58 Dose: 5 mg Documented By: NNEKA Aspirin (Aspirin Enteric Coated 81 Mg Tablet.) 81 mg PO DAILY [facility] Last Admin: 08/22/22 07:59 Dose: 81 mg Documented By: NNEKA Atorvastatin Calcium (Atorvastatin Calcium 40 Mg Tablet) 40 mg PO DAILY [facility] Last Admin: 08/22/22 07:59 Dose: 40 mg Documented By: NNEKA Dextrose (Dextrose 50 % 25 Gm/50 Ml Syringe) 25 gm IVPUSH Q15M PRN; Protocol PRN Reason: per Hypoglycemia Standing Ord. Docusate Sodium (Docusate Sodium 100 Mg Capsule) 100 mg PO DAILY PRN PRN Reason: Constipation Ezetimibe (Ezetimibe 10 Mg Tablet) 10 mg PO DAILY [facility] Last Admin: 08/22/22 07:59 Dose: 10 mg Documented By: NNEKA Empagliflozin (Empagliflozin 25 Mg Tablet) 25 mg PO DAILY [facility] Last Admin: 08/22/22 08:09 Dose: Not Given Documented By: NNEKA Non-Admin Reason: Patient Refused Enoxaparin Sodium (Enoxaparin Sodium 40 Mg/0.4 Ml Syringe) 40 mg SUBCUT Q24H [facility] Last Admin: 08/21/22 20:33 Dose: Not Given Documented By: SHELLI Non-Admin Reason: Patient Refused Folic Acid (Folic Acid 1 Mg Tablet) 1 mg PO DAILY [facility] Last Admin: 08/22/22 07:59 Dose: 1 mg Documented By: NNEKA Glucose (Glucose Gel 15 Gm Gel..Gram.) 15 gm PO Q15M PRN; Protocol PRN Reason: per Hypoglycemia Standing Ord. Ceftriaxone Sodium 2 gm/ (Sodium Chloride) 50 mls @ 100 mls/hr IV Q24H [facility] Last Infusion: 08/21/22 17:09 Dose: 0 mls/hr Documented By: RACHAEL Insulin Glargine (Insulin Glargine,Hum.Rec.Anlog 100 Unit/Ml 10 Ml Vial) 28 unit SUBCUT DAILY [facility] Last Admin: 08/22/22 07:55 Dose: 28 unit Documented By: NNEKA Insulin Human Lispro (Insulin Lispro 100 Unit/Ml 3 Ml Vial) 0 unit SUBCUT QIDACHS [facility]; Protocol Last Admin: 08/22/22 07:55 Dose: 2 unit Documented By: NNEKA Lidocaine (Lidocaine 4 % Patch Adh..Patch) 1 patch TRANSDERMA DAILY [facility] Last Admin: 08/21/22 10:24 Dose: 1 patch Documented By: RACHAEL Magnesium Oxide (Magnesium Oxide 400 Mg Tablet) 400 mg PO TID [facility] Last Admin: 08/22/22 07:58 Dose: 400 mg Documented By: NNEKA Metoprolol Succinate (Metoprolol Succinate Er 50 Mg Tab.Er.24h) 50 mg PO DAILY [facility]; Protocol Last Admin: 08/22/22 07:59 Dose: 50 mg Documented By: NNEKA Omeprazole (Omeprazole 20 Mg Capsule.Dr) 20 mg PO BEDTIME [facility] Last Admin: 08/21/22 21:39 Dose: 20 mg Documented By: SHELLI Ondansetron HCl (Ondansetron Hcl 4 Mg/2 Ml Vial) 4 mg IVPUSH Q8H PRN PRN Reason: Nausea and Vomiting Pharmacy Consult (Consult Rx Perform Med Rec) 1 each MISCELLANE ONCE PRN PRN Reason: Consult order Sodium Chloride (0.9 % Sodium Chloride Flush 3 Ml Syringe) 3 ml IVFLUSH QSHIFT [facility] Last Admin: 08/22/22 07:56 Dose: 3 ml Documented By: NNEKA Vitamin D (Cholecalciferol (Vitamin D3) 25 Mcg Tablet) 25 mcg PO DAILY [facility] Last Admin: 08/22/22 07:59 Dose: 25 mcg Documented By: NNEKA Labs 08/22/22 07:14 08/22/22 07:15 Labs: Laboratory Results - last 24 hr 08/21/22 08/21/22 08/21/22 11:14 15:44 20:10 MCV MCH MCHC RDW Plt Count MPV Absolute Nucleated RBC Nucleated RBC % (auto) Anion Gap Estim Creat Clear Calc Estimated GFR POC Glucose 182 H 199 H 197 H Fasting Glucose Calcium 08/22/22 08/22/22 08/22/22 07:14 07:15 07:23 MCV 64.0 L MCH 19.1 L MCHC 29.9 L RDW 21.8 H Plt Count 696 H MPV 9.6 Absolute Nucleated RBC 0.040 H Nucleated RBC % (auto) 0.2 Anion Gap 19 Estim Creat Clear Calc 82.0 Estimated GFR > 60 POC Glucose 152 H Fasting Glucose 150 H Calcium 8.9 Microbiology Microbiology Results: Microbiology 08/19/22 08:03 Blood Culture - Preliminary Blood - Venous No growth after 48 hours. 08/19/22 08:08 Blood Culture - Final Blood - Venous Staphylococcus aureus Assessment and Plan (1) Ulcer of left foot due to type 2 diabetes mellitus: Status: Acute (2) Sepsis: Status: Acute (3) Charcot foot due to diabetes mellitus: Status: Acute (4) COVID-19: Status: Acute Plan 57-year-old female with a PMH significant for Charcot foot,?PAD, IBS, HTN, insulin-dependent DM, and hx of osteomyelitis with multiple debridements who presented to the ED from hematology clinic?for evaluation of elevated temperature and WBCs. Sepsis 2/2 MSSA bacteremia from charcot foot with chronic osteomyelitis Continue Ceftriaxone 2 gm daily for 6 weeks cultures still positive patient advised for BKA but declined, will treat with iv abx for now LUIS Creatinine improved back to baseline Back pain resolved, seems to be related to acute illness with sepsis and bacteremia CT of abdomen/pelvis w/o contrast d/t LUIS found evidence of perinephric stranding that may be chronic UA negative for UTI, pt denies dysuria and polyuria MRI ?left-sided L4-L5 facet joint with some periarticular edema seen, could be inflammatory vs septic arthritis Chest pain, chronic Pt complains of persistent chest pain since last October Cardiology input appreciated, patient is low risk for perioperative cardiac complications COVID infection Pt currently asymptomatic Monitor respiratory status Acute hypokalemia resolved after replacement Microcytic anemia, chronic, ?thallasemia Pt seen at hematology for Procrit shot, held for this week F/U outpatient at hematology clinic Insulin-dependent DM with hyperglycemia Hold home meds SSI, lantus Full Code DVT Prophylaxis: Lovenox reason for continued hospitalization:bacteremia Time Spent With Patient Time: Total time managing care of this patient today ____ minutes. Quality Stroke Does the patient have a stroke diagnosis?: No VTE Prior VTE?: No VTE Risk Level:: Medical - moderate - high VTE Device Contraindication: Treatment Not Indicated VTE Drug Contraindication: N/A - Med Ordered
[2022-08-22 11:18] LABS: Glucose, Whole Blood 223 mg/dL (60-115)
[2022-08-22 11:25] VITALS: BP 138/82; PULSE 85; RESP 17; TEMP 36.7; O2SAT 98
[2022-08-22] MEDS: cefTRIAXone sodium 2 GM in 0.9 % Sodium Chloride 50 ML IV (12:19)
[2022-08-22] MEDS: Lidocaine 4 % Patch ADH..PATCH 1 PATCH TRANSDERMA (12:20)
--- NOTE | 2022-08-22 13:46 | MHC.CM.PN ---
Female 57 DX Foot infection. No discharge today per MD rounds. Blood Cultures drawn today, results are pending. PICC insertion will occur, once cultures clear. DP home with [facility] and [facility] for Home Infusion services. Update on anticipated discharge was provided to Cris from [facility], [place].
[2022-08-22 15:18] VITALS: BP 130/75; PULSE 80; RESP 18; TEMP 36.8
[2022-08-22 16:34] LABS: Glucose, Whole Blood 210 mg/dL (60-115)
[2022-08-22] MEDS: Acetaminophen 325 MG TABLET 650 MG PO (17:40)
[2022-08-22 19:30] VITALS: BP 136/62; PULSE 94; RESP 18; TEMP 37.2; O2SAT 98
[2022-08-22] MEDS: Omeprazole 20 MG CAPSULE.DR PO (22:07)
[2022-08-22 22:38] LABS: Glucose, Whole Blood 206 mg/dL (60-115)
[2022-08-23] VITALS: BP 149/69; PULSE 96; RESP 18; TEMP 36.3; O2SAT 95
[2022-08-23 03:47] VITALS: BP 147/67; PULSE 95; RESP 18; TEMP 36.6; O2SAT 96
[2022-08-23 07:17] LABS: Hematocrit 24.7 % (37.0-47.0); Hemoglobin 7.6 g/dl (12.0-16.0); Mean Corpuscular HGB Conc 30.8 g/dl (31.0-35.0); Mean Corpuscular Hemoglobin 19.4 pg (27.0-33.0); Mean Platelet Volume 9.4 fL (9.4-12.3); NRBC Pct Auto 0.1 /100WBC (0.0-0.2); Platelet Count 833 X10*3/uL (160-400); Red Blood Count 3.91 X10*6/uL (4.20-5.50); Red Cell Distribution Width 20.9 % (11.0-16.0); White Blood Count 21.3 X10*3/uL (4.8-10.8)
[2022-08-23 07:23] LABS: Glucose, Whole Blood 139 mg/dL (60-115)
[2022-08-23 07:28] LABS: Mean Corpuscular Volume 63.2 fL (80.0-98.0)
[2022-08-23 07:31] LABS: Anion Gap 16 (12-20); Blood Urea Nitrogen 14 mg/dL (9-16); Calcium 8.7 mg/dL (8.4-10.2); Carbon Dioxide 26 mmol/L (22-29); Chloride 101 mmol/L (96-108); Creatinine Clr Calc Pharmacy 88.4; Estimated Glomerular Filt Rate > 60; Glucose Fasting 130 mg/dL (60-99); Sodium 138 mmol/L (135-145)
[2022-08-23 08:00] VITALS: BP 138/68; PULSE 99; RESP 20; TEMP 36.4; O2SAT 95
--- NOTE | 2022-08-23 08:52 | HO.PM.IMPN ---
Subjective Subjective Date of Service: 08/23/22 Interval History: 5th toe now necrotic Physical Exam Vital Signs: Vital Signs: Last Vital Signs Temp 97.5 F 08/23/22 08:00 Pulse 99 08/23/22 08:00 Resp 20 08/23/22 08:00 BP 138/68 08/23/22 08:00 Pulse Ox 95 08/23/22 08:00 O2 Del Method 08/23/22 08:00 O2 Flow Rate 2 08/18/22 04:00 BMI result Body Mass Index 34.3 picture from 08/22/22, today, looks worse with necrosis of 5th toe Objective Data Active Medications Acetaminophen (Acetaminophen 325 Mg Tablet) 650 mg PO Q6H PRN PRN Reason: Pain, Mild (Pain Scale 1-3) Last Admin: 08/22/22 17:40 Dose: 650 mg Documented By: NNEKA Amlodipine Besylate (Amlodipine Besylate 5 Mg Tablet) 5 mg PO DAILY [facility]; Protocol Last Admin: 08/22/22 07:58 Dose: 5 mg Documented By: NNEKA Aspirin (Aspirin Enteric Coated 81 Mg Tablet.Dr) 81 mg PO DAILY [facility] Last Admin: 08/22/22 07:59 Dose: 81 mg Documented By: NNEKA Atorvastatin Calcium (Atorvastatin Calcium 40 Mg Tablet) 40 mg PO DAILY [facility] Last Admin: 08/22/22 07:59 Dose: 40 mg Documented By: NNEKA Dextrose (Dextrose 50 % 25 Gm/50 Ml Syringe) 25 gm IVPUSH Q15M PRN; Protocol PRN Reason: per Hypoglycemia Standing Ord. Docusate Sodium (Docusate Sodium 100 Mg Capsule) 100 mg PO DAILY PRN PRN Reason: Constipation Ezetimibe (Ezetimibe 10 Mg Tablet) 10 mg PO DAILY [facility] Last Admin: 08/22/22 07:59 Dose: 10 mg Documented By: NNEKA Empagliflozin (Empagliflozin 25 Mg Tablet) 25 mg PO DAILY [facility] Last Admin: 08/22/22 08:09 Dose: Not Given Documented By: NNEKA Non-Admin Reason: Patient Refused Enoxaparin Sodium (Enoxaparin Sodium 40 Mg/0.4 Ml Syringe) 40 mg SUBCUT Q24H [facility] Last Admin: 08/22/22 20:39 Dose: Not Given Documented By: SHELLI Non-Admin Reason: Patient Refused Folic Acid (Folic Acid 1 Mg Tablet) 1 mg PO DAILY [facility] Last Admin: 08/22/22 07:59 Dose: 1 mg Documented By: NNEKA Glucose (Glucose Gel 15 Gm Gel..Gram.) 15 gm PO Q15M PRN; Protocol PRN Reason: per Hypoglycemia Standing Ord. Ceftriaxone Sodium 2 gm/ (Sodium Chloride) 50 mls @ 100 mls/hr IV Q24H [facility] Last Infusion: 08/22/22 12:51 Dose: 0 mls/hr Documented By: NNEKA Insulin Glargine (Insulin Glargine,Hum.Rec.Anlog 100 Unit/Ml 10 Ml Vial) 28 unit SUBCUT DAILY [facility] Last Admin: 08/22/22 07:55 Dose: 28 unit Documented By: NNEKA Insulin Human Lispro (Insulin Lispro 100 Unit/Ml 3 Ml Vial) 0 unit SUBCUT QIDACHS [facility]; Protocol Last Admin: 08/23/22 08:04 Dose: Not Given Documented By: MARY KAY Non-Admin Reason: No Insulin Coverage Lidocaine (Lidocaine 4 % Patch Adh..Patch) 1 patch TRANSDERMA DAILY [facility] Last Admin: 08/22/22 12:20 Dose: 1 patch Documented By: NNEKA Magnesium Oxide (Magnesium Oxide 400 Mg Tablet) 400 mg PO TID [facility] Last Admin: 08/22/22 22:07 Dose: 400 mg Documented By: SHELLI Metoprolol Succinate (Metoprolol Succinate Er 50 Mg Tab.Er.24h) 50 mg PO DAILY [facility]; Protocol Last Admin: 08/22/22 07:59 Dose: 50 mg Documented By: NNEKA Omeprazole (Omeprazole 20 Mg Capsule.Dr) 20 mg PO BEDTIME [facility] Last Admin: 08/22/22 22:07 Dose: 20 mg Documented By: SHELLI Ondansetron HCl (Ondansetron Hcl 4 Mg/2 Ml Vial) 4 mg IVPUSH Q8H PRN PRN Reason: Nausea and Vomiting Pharmacy Consult (Consult Rx Perform Med Rec) 1 each MISCELLANE ONCE PRN PRN Reason: Consult order Sodium Chloride (0.9 % Sodium Chloride Flush 3 Ml Syringe) 3 ml IVFLUSH QSHIFT [facility] Last Admin: 08/23/22 01:24 Dose: Not Given Documented By: SHELLI Non-Admin Reason: Patient Asleep Vitamin D (Cholecalciferol (Vitamin D3) 25 Mcg Tablet) 25 mcg PO DAILY [facility] Last Admin: 08/22/22 07:59 Dose: 25 mcg Documented By: NNEKA Labs 08/23/22 06:37 08/23/22 06:37 Labs: Laboratory Results - last 24 hr 08/22/22 08/22/22 08/22/22 11:12 16:30 21:35 MCV MCH MCHC RDW Plt Count MPV Absolute Nucleated RBC Nucleated RBC % (auto) Anion Gap Estim Creat Clear Calc Estimated GFR POC Glucose 223 H 210 H 206 H Fasting Glucose Calcium 08/23/22 08/23/22 08/23/22 06:37 06:37 07:14 MCV 63.2 L MCH 19.4 L MCHC 30.8 L RDW 20.9 H Plt Count 833 H MPV 9.4 Absolute Nucleated RBC 0.020 H Nucleated RBC % (auto) 0.1 Anion Gap 16 Estim Creat Clear Calc 88.4 Estimated GFR > 60 POC Glucose 139 H Fasting Glucose 130 H Calcium 8.7 Assessment and Plan (1) Ulcer of left foot due to type 2 diabetes mellitus: Status: Acute (2) Sepsis: Status: Acute (3) Charcot foot due to diabetes mellitus: Status: Acute (4) COVID-19: Status: Acute Plan 57-year-old female with a PMH significant for Charcot foot,?PAD, IBS, HTN, insulin-dependent DM, and hx of osteomyelitis with multiple debridements who presented to the ED from hematology clinic?for evaluation of elevated temperature and WBCs. Sepsis 2/2 MSSA bacteremia from charcot foot with chronic osteomyelitis Continue Ceftriaxone 2 gm daily for 6 weeks cultures still positive, awwaiting repeat from 08/22/22 patient advised for BKA - patient demonstrated understanding that medical opinion is that conservative therapy will have high probability of failure and may lead to sepsis or . she wishes to pursue conservative therapy anyway. LUIS Creatinine improved back to baseline Back pain resolved, seems to be related to acute illness with sepsis and bacteremia CT of abdomen/pelvis w/o contrast d/t LUIS found evidence of perinephric stranding that may be chronic UA negative for UTI, pt denies dysuria and polyuria MRI ?left-sided L4-L5 facet joint with some periarticular edema seen, could be inflammatory vs septic arthritis Chest pain, chronic Pt complains of persistent chest pain since last October Cardiology input appreciated, patient is low risk for perioperative cardiac complications COVID infection Pt currently asymptomatic Monitor respiratory status Acute hypokalemia resolved after replacement Microcytic anemia, chronic, ?thallasemia Pt seen at hematology for Procrit shot, held for this week F/U outpatient at hematology clinic Insulin-dependent DM with hyperglycemia Hold home meds SSI, lantus Full Code DVT Prophylaxis: Lovenox reason for continued hospitalization:bacteremia Time Spent With Patient Time: Total time managing care of this patient today ____ minutes. Quality Stroke Does the patient have a stroke diagnosis?: No VTE Prior VTE?: No VTE Risk Level:: Medical - moderate - high VTE Device Contraindication: Treatment Not Indicated VTE Drug Contraindication: N/A - Med Ordered
[2022-08-23] MEDS: Aspirin Enteric Coated 81 MG TABLET.DR PO (08:57)
[2022-08-23] MEDS: Folic Acid 1 MG TABLET PO (08:57)
[2022-08-23] MEDS: amLODIPine Besylate 5 MG TABLET PO (08:58)
[2022-08-23] MEDS: Metoprolol Succinate ER 50 MG TAB.ER.24H PO (08:58)
[2022-08-23] MEDS: Insulin Glargine,Hum.rec.anlog 100 UNIT/ML 10 ML VIAL 28 UNIT SUBCUT (08:58)
[2022-08-23] MEDS: Atorvastatin Calcium 40 MG TABLET PO (08:58)
[2022-08-23] MEDS: Magnesium Oxide 400 MG TABLET PO ×3 (08:58→20:42)
[2022-08-23] MEDS: Cholecalciferol (Vitamin D3) 25 MCG TABLET PO (08:58)
[2022-08-23] MEDS: Ezetimibe 10 MG TABLET PO (08:58)
[2022-08-23 10:58] LABS: Glucose, Whole Blood 183 mg/dL (60-115)
[2022-08-23 11:31] VITALS: BP 155/80; PULSE 93; RESP 20; TEMP 36.9; O2SAT 99
[2022-08-23] MEDS: Insulin Lispro 100 UNIT/ML 3 ML VIAL SUBCUT ×3 (11:34→20:42)
[2022-08-23] MEDS: cefTRIAXone sodium 2 GM in 0.9 % Sodium Chloride 50 ML IV (11:34)
[2022-08-23 15:35] VITALS: BP 136/60; PULSE 94; RESP 18; TEMP 37; O2SAT 95
[2022-08-23 15:50] LABS: Glucose, Whole Blood 160 mg/dL (60-115)
[2022-08-23] MEDS: 0.9 % Sodium Chloride Flush 3 ML SYRINGE IVFLUSH ×2 (16:43→20:42)
[2022-08-23 19:55] VITALS: BP 137/73; PULSE 95; RESP 18; TEMP 37; O2SAT 96
[2022-08-23 20:09] LABS: Glucose, Whole Blood 163 mg/dL (60-115)
[2022-08-23] MEDS: Omeprazole 20 MG CAPSULE.DR PO (20:41)
[2022-08-24 04:00] VITALS: BP 145/67; PULSE 98; TEMP 36.2; O2SAT 97
[2022-08-24 06:55] LABS: Hematocrit 26.3 % (37.0-47.0); Mean Corpuscular HGB Conc 30.4 g/dl (31.0-35.0); Mean Corpuscular Volume 62.6 fL (80.0-98.0); Mean Platelet Volume 8.6 fL (9.4-12.3); Platelet Count 890 X10*3/uL (160-400); Red Cell Distribution Width 21.2 % (11.0-16.0)
[2022-08-24 07:08] VITALS: BP 146/76; PULSE 97; RESP 17; TEMP 36.4; O2SAT 97
[2022-08-24 07:09] LABS: Anion Gap 16 (12-20); Blood Urea Nitrogen 14 mg/dL (9-16); Calcium 9.1 mg/dL (8.4-10.2); Carbon Dioxide 26 mmol/L (22-29); Chloride 99 mmol/L (96-108); Creatinine Clr Calc Pharmacy 78.6; Estimated Glomerular Filt Rate > 60; Glucose Fasting 130 mg/dL (60-99); Potassium 4.9 mmol/L (3.3-5.1); Sodium 136 mmol/L (135-145)
[2022-08-24 07:18] LABS: Glucose, Whole Blood 137 mg/dL (60-115)
[2022-08-24] MEDS: Folic Acid 1 MG TABLET PO (08:08)
[2022-08-24] MEDS: Empagliflozin 25 MG TABLET PO (08:08)
[2022-08-24] MEDS: Ezetimibe 10 MG TABLET PO (08:08)
[2022-08-24] MEDS: Cholecalciferol (Vitamin D3) 25 MCG TABLET PO (08:08)
[2022-08-24] MEDS: Metoprolol Succinate ER 50 MG TAB.ER.24H PO (08:08)
[2022-08-24] MEDS: 0.9 % Sodium Chloride Flush 3 ML SYRINGE IVFLUSH ×3 (08:08→20:56)
[2022-08-24] MEDS: Aspirin Enteric Coated 81 MG TABLET.DR PO (08:08)
[2022-08-24] MEDS: amLODIPine Besylate 5 MG TABLET PO (08:08)
[2022-08-24] MEDS: Atorvastatin Calcium 40 MG TABLET PO (08:08)
[2022-08-24] MEDS: Insulin Glargine,Hum.rec.anlog 100 UNIT/ML 10 ML VIAL 28 UNIT SUBCUT (08:09)
[2022-08-24] MEDS: Magnesium Oxide 400 MG TABLET PO ×3 (08:11→20:56)
--- NOTE | 2022-08-24 11:00 | P.PNIM_ITS ---
Subjective Subjective Date of Service: 08/24/22 Interval History: f/u on foot ulcer with necrosis, declining ampuation, she is of sound mind. Physical Exam Vital Signs: Vital Signs: Last Vital Signs Temp 97.6 F 08/24/22 07:08 Pulse 97 08/24/22 07:08 Resp 17 08/24/22 07:08 BP 146/76 H 08/24/22 07:08 Pulse Ox 97 08/24/22 07:08 O2 Del Method 08/24/22 07:08 O2 Flow Rate 2 08/18/22 04:00 BMI result Body Mass Index 34.3 Const: Other: Constitutional : Awake, interactive Neck : Normal inspection, Supple Cardiovascular : RRR, no JVP, no lower extremity edema Respiratory : good bilateral air entry, no crackles, wheezes or rhonchi Gastrointestinal: soft, lax, Normal bowel sounds, Non tender Skin : Warm, Dry, decreased swelling, erythema and drainage from left Charcot at foot--see pictures elsewhere Neurological : Alert & oriented x3, No focal deficit Objective Data Active Medications Acetaminophen (Acetaminophen 325 Mg Tablet) 650 mg PO Q6H PRN PRN Reason: Pain, Mild (Pain Scale 1-3) Last Admin: 08/22/22 17:40 Dose: 650 mg Documented By: NNEKA Amlodipine Besylate (Amlodipine Besylate 5 Mg Tablet) 5 mg PO DAILY [facility]; Protocol Last Admin: 08/24/22 08:08 Dose: 5 mg Documented By: LIDIA Aspirin (Aspirin Enteric Coated 81 Mg Tablet.) 81 mg PO DAILY [facility] Last Admin: 08/24/22 08:08 Dose: 81 mg Documented By: LIDIA Atorvastatin Calcium (Atorvastatin Calcium 40 Mg Tablet) 40 mg PO DAILY [facility] Last Admin: 08/24/22 08:08 Dose: 40 mg Documented By: LIDIA Dextrose (Dextrose 50 % 25 Gm/50 Ml Syringe) 25 gm IVPUSH Q15M PRN; Protocol PRN Reason: per Hypoglycemia Standing Ord. Docusate Sodium (Docusate Sodium 100 Mg Capsule) 100 mg PO DAILY PRN PRN Reason: Constipation Ezetimibe (Ezetimibe 10 Mg Tablet) 10 mg PO DAILY [facility] Last Admin: 08/24/22 08:08 Dose: 10 mg Documented By: LIDIA Empagliflozin (Empagliflozin 25 Mg Tablet) 25 mg PO DAILY [facility] Last Admin: 08/24/22 08:08 Dose: 25 mg Documented By: LIDIA Enoxaparin Sodium (Enoxaparin Sodium 40 Mg/0.4 Ml Syringe) 40 mg SUBCUT Q24H [facility] Last Admin: 08/23/22 20:04 Dose: Not Given Documented By: NELLY Non-Admin Reason: Patient Refused Folic Acid (Folic Acid 1 Mg Tablet) 1 mg PO DAILY [facility] Last Admin: 08/24/22 08:08 Dose: 1 mg Documented By: LIDIA Glucose (Glucose Gel 15 Gm Gel..Gram.) 15 gm PO Q15M PRN; Protocol PRN Reason: per Hypoglycemia Standing Ord. Ceftriaxone Sodium 2 gm/ (Sodium Chloride) 50 mls @ 100 mls/hr IV Q24H [facility] Last Infusion: 08/23/22 12:47 Dose: 0 mls/hr Documented By: NATALYATEKCr Insulin Glargine (Insulin Glargine,Hum.Rec.Anlog 100 Unit/Ml 10 Ml Vial) 28 unit SUBCUT DAILY [facility] Last Admin: 08/24/22 08:09 Dose: 28 unit Documented By: LIDIA Insulin Human Lispro (Insulin Lispro 100 Unit/Ml 3 Ml Vial) 0 unit SUBCUT QIDACHS [facility]; Protocol Last Admin: 08/24/22 08:09 Dose: Not Given Documented By: LIDIA Non-Admin Reason: No Insulin Coverage Lidocaine (Lidocaine 4 % Patch Adh..Patch) 1 patch TRANSDERMA DAILY [facility] Last Admin: 08/24/22 08:10 Dose: Not Given Documented By: LIDIA Non-Admin Reason: Patient Refused Magnesium Oxide (Magnesium Oxide 400 Mg Tablet) 400 mg PO TID [facility] Last Admin: 08/24/22 08:11 Dose: 400 mg Documented By: LIDIA Metoprolol Succinate (Metoprolol Succinate Er 50 Mg Tab.Er.24h) 50 mg PO DAILY [facility]; Protocol Last Admin: 08/24/22 08:08 Dose: 50 mg Documented By: LIDIA Omeprazole (Omeprazole 20 Mg Capsule.Dr) 20 mg PO BEDTIME [facility] Last Admin: 08/23/22 20:41 Dose: 20 mg Documented By: NELLY Ondansetron HCl (Ondansetron Hcl 4 Mg/2 Ml Vial) 4 mg IVPUSH Q8H PRN PRN Reason: Nausea and Vomiting Pharmacy Consult (Consult Rx Perform Med Rec) 1 each MISCELLANE ONCE PRN PRN Reason: Consult order Sodium Chloride (0.9 % Sodium Chloride Flush 3 Ml Syringe) 3 ml IVFLUSH QSHIFT [facility] Last Admin: 08/24/22 08:08 Dose: 3 ml Documented By: LIDIA Vitamin D (Cholecalciferol (Vitamin D3) 25 Mcg Tablet) 25 mcg PO DAILY [facility] Last Admin: 08/24/22 08:08 Dose: 25 mcg Documented By: LIDIA Labs 08/24/22 06:39 08/24/22 06:39 Labs: Laboratory Results - last 24 hr 08/23/22 08/23/22 08/24/22 15:36 19:57 06:39 MCV 62.6 L MCH 19.0 L MCHC 30.4 L RDW 21.2 H Plt Count 890 H MPV 8.6 L Absolute Nucleated RBC 0.000 Nucleated RBC % (auto) 0.0 Anion Gap Estim Creat Clear Calc Estimated GFR POC Glucose 160 H 163 H Fasting Glucose Calcium 08/24/22 08/24/22 06:39 07:14 MCV MCH MCHC RDW Plt Count MPV Absolute Nucleated RBC Nucleated RBC % (auto) Anion Gap 16 Estim Creat Clear Calc 78.6 Estimated GFR > 60 POC Glucose 137 H Fasting Glucose 130 H Calcium 9.1 Microbiology Microbiology Results: Microbiology 08/19/22 08:03 Blood Culture - Final Blood - Venous No growth after 5 days. 08/22/22 07:15 Blood Culture - Preliminary Blood - Venous No growth after 48 hours. 08/22/22 07:15 Blood Culture - Preliminary Blood - Venous No growth after 48 hours. Assessment and Plan (1) Ulcer of left foot due to type 2 diabetes mellitus: Status: Acute (2) Sepsis: Status: Acute (3) Charcot foot due to diabetes mellitus: Status: Acute (4) COVID-19: Status: Acute Plan 57-year-old female with a PMH significant for Charcot foot,?PAD, IBS, HTN, insulin-dependent DM, and hx of osteomyelitis with multiple debridements who presented to the ED from hematology clinic?for evaluation of elevated temp erature and WBCs. Sepsis 2/2 MSSA bacteremia from charcot foot with chronic osteomyelitis Continue Ceftriaxone 2 gm daily for 6 weeks cultures still positive, repeat from 08/22/22 negative x 48 hrs so requesting picc line patient advised for BKA - patient demonstrated understanding that medical opinion is that conservative therapy will have high probability of failure and may lead to sepsis or . she wishes to pursue conservative therapy anyway and or seek another opinion with Dr. Quijano LUIS Creatinine improved back to baseline (normal ) Back pain resolved, seems to be related to acute illness with sepsis and bacteremia CT of abdomen/pelvis w/o contrast d/t LUIS found evidence of perinephric stranding that may be chronic UA negative for UTI, pt denies dysuria and polyuria MRI ?left-sided L4-L5 facet joint with some periarticular edema seen, could be inflammatory vs septic arthritis Chest pain, chronic Pt complains of persistent chest pain since last October Cardiology input appreciated, patient is low risk for perioperative cardiac complications COVID infection Pt currently asymptomatic Monitor respiratory status Acute hypokalemia resolved after replacement Microcytic anemia, chronic, ?thallasemia Pt seen at hematology for Procrit shot, held for this week F/U outpatient at hematology clinic Insulin-dependent DM with hyperglycemia Hold home meds SSI, lantus Full Code DVT Prophylaxis: Lovenox reason for continued hospitalization:bacteremia on IV Abx and monitoring cultures Time Spent With Patient Time: Total time managing care of this patient today ____ minutes. Quality Stroke Does the patient have a stroke diagnosis?: No VTE Prior VTE?: No VTE Risk Level:: Medical - moderate - high VTE Device Contraindication: Treatment Not Indicated VTE Drug Contraindication: N/A - Med Ordered
[2022-08-24 11:10] LABS: Glucose, Whole Blood 211 mg/dL (60-115)
[2022-08-24 11:50] VITALS: BP 128/78; PULSE 78; RESP 18; TEMP 36.7; O2SAT 98
--- NOTE | 2022-08-24 12:09 | MHC.CM.PN ---
Addendum entered by Kym Coats 08/24/22 15:15: IR booked, no PICC line today. Plan for insertion of PICC Saturday. Discharge is anticipated Saturday. Flush orders have been sent to [facility] care. Original Note: Female 56 DX Left foot infection. DP is home with IV ABX via BLS. She has declined amputation. The patient reports that she has an appointment with DR Quijano ([place]). She states that she was referred by the wound clinic. She states that she has been told that she needs surgery performed by Dr Quijano for Charcot foot. The patient's understanding is that this procedure has been recommended by her providers and may prevent the need for amputation. Patient is pending PICC line insertion. CM will follow.
[2022-08-24] MEDS: Insulin Lispro 100 UNIT/ML 3 ML VIAL SUBCUT ×3 (12:50→20:55)
[2022-08-24] MEDS: cefTRIAXone sodium 2 GM in 0.9 % Sodium Chloride 50 ML IV (12:51)
[2022-08-24 16:00] VITALS: BP 134/75; PULSE 80; RESP 18; TEMP 36.6; O2SAT 97
[2022-08-24 16:25] LABS: Glucose, Whole Blood 246 mg/dL (60-115)
[2022-08-24 20:00] VITALS: BP 149/66; PULSE 77; RESP 18; TEMP 36.6; O2SAT 95
[2022-08-24 20:37] LABS: Glucose, Whole Blood 221 mg/dL (60-115)
[2022-08-24] MEDS: Enoxaparin Sodium 40 MG/0.4 ML SYRINGE SUBCUT (20:55)
[2022-08-24] MEDS: Omeprazole 20 MG CAPSULE.DR PO (20:55)
[2022-08-24] MEDS: Acetaminophen 325 MG TABLET 650 MG PO (22:50)
[2022-08-25] VITALS: BP 137/63; PULSE 99; RESP 18; TEMP 36.6; O2SAT 94
[2022-08-25 06:56] LABS: Creatinine Clr Calc Pharmacy 77.5; Estimated Glomerular Filt Rate > 60
[2022-08-25 07:15] VITALS: BP 142/67; PULSE 95; RESP 18; TEMP 36.8; O2SAT 98
[2022-08-25 07:58] LABS: Glucose, Whole Blood 193 mg/dL (60-115)
[2022-08-25] MEDS: Metoprolol Succinate ER 50 MG TAB.ER.24H PO (08:58)
[2022-08-25] MEDS: Aspirin Enteric Coated 81 MG TABLET.DR PO (08:58)
[2022-08-25] MEDS: Atorvastatin Calcium 40 MG TABLET PO (08:58)
[2022-08-25] MEDS: amLODIPine Besylate 5 MG TABLET PO (08:58)
[2022-08-25] MEDS: Cholecalciferol (Vitamin D3) 25 MCG TABLET PO (08:58)
[2022-08-25] MEDS: Insulin Glargine,Hum.rec.anlog 100 UNIT/ML 10 ML VIAL 28 UNIT SUBCUT (09:00)
[2022-08-25] MEDS: Magnesium Oxide 400 MG TABLET PO ×3 (09:00→21:37)
[2022-08-25] MEDS: Insulin Lispro 100 UNIT/ML 3 ML VIAL SUBCUT ×4 (09:00→21:37)
[2022-08-25] MEDS: Folic Acid 1 MG TABLET PO (09:01)
[2022-08-25] MEDS: 0.9 % Sodium Chloride Flush 3 ML SYRINGE IVFLUSH ×3 (09:01→21:38)
[2022-08-25] MEDS: Ezetimibe 10 MG TABLET PO (09:01)
--- NOTE | 2022-08-25 11:13 | P.PNIM_ITS ---
Subjective Subjective Date of Service: 08/25/22 Interval History: f/u on foot ulcer with necrosis, declining ampuation, she is of sound mind. Physical Exam Vital Signs: Vital Signs: Last Vital Signs Temp 98.2 F 08/25/22 07:15 Pulse 95 08/25/22 07:15 Resp 18 08/25/22 07:15 BP 142/67 H 08/25/22 07:15 Pulse Ox 98 08/25/22 07:15 O2 Del Method 08/25/22 07:15 O2 Flow Rate 2 08/18/22 04:00 BMI result Body Mass Index 34.3 Const: Other: Constitutional : Awake, interactive Neck : Normal inspection, Supple Cardiovascular : RRR, no JVP, no lower extremity edema Respiratory : good bilateral air entry, no crackles, wheezes or rhonchi Gastrointestinal: soft, lax, Normal bowel sounds, Non tender Skin : Warm, Dry, decreased swelling, erythema and drainage from left Charcot at foot--see pictures elsewhere Neurological : Alert & oriented x3, No focal deficit Objective Data Active Medications Acetaminophen (Acetaminophen 325 Mg Tablet) 650 mg PO Q6H PRN PRN Reason: Pain, Mild (Pain Scale 1-3) Last Admin: 08/24/22 22:50 Dose: 650 mg Documented By: KASSI Amlodipine Besylate (Amlodipine Besylate 5 Mg Tablet) 5 mg PO DAILY [facility]; Protocol Last Admin: 08/25/22 08:58 Dose: 5 mg Documented By: MARY KAY Aspirin (Aspirin Enteric Coated 81 Mg Tablet.) 81 mg PO DAILY [facility] Last Admin: 08/25/22 08:58 Dose: 81 mg Documented By: MARY KAY Atorvastatin Calcium (Atorvastatin Calcium 40 Mg Tablet) 40 mg PO DAILY [facility] Last Admin: 08/25/22 08:58 Dose: 40 mg Documented By: MARY KAY Dextrose (Dextrose 50 % 25 Gm/50 Ml Syringe) 25 gm IVPUSH Q15M PRN; Protocol PRN Reason: per Hypoglycemia Standing Ord. Docusate Sodium (Docusate Sodium 100 Mg Capsule) 100 mg PO DAILY PRN PRN Reason: Constipation Ezetimibe (Ezetimibe 10 Mg Tablet) 10 mg PO DAILY [facility] Last Admin: 08/25/22 09:01 Dose: 10 mg Documented By: MARY KAY Empagliflozin (Empagliflozin 25 Mg Tablet) 25 mg PO DAILY [facility] Last Admin: 08/25/22 09:07 Dose: Not Given Documented By: MARY KAY Non-Admin Reason: Patient Refused Enoxaparin Sodium (Enoxaparin Sodium 40 Mg/0.4 Ml Syringe) 40 mg SUBCUT Q24H [facility] Last Admin: 08/24/22 20:55 Dose: 40 mg Documented By: KASSI Folic Acid (Folic Acid 1 Mg Tablet) 1 mg PO DAILY [facility] Last Admin: 08/25/22 09:01 Dose: 1 mg Documented By: MARY KAY Glucose (Glucose Gel 15 Gm Gel..Gram.) 15 gm PO Q15M PRN; Protocol PRN Reason: per Hypoglycemia Standing Ord. Ceftriaxone Sodium 2 gm/ (Sodium Chloride) 50 mls @ 100 mls/hr IV Q24H [facility] Last Infusion: 08/24/22 13:23 Dose: 0 mls/hr Documented By: LIDIA Insulin Glargine (Insulin Glargine,Hum.Rec.Anlog 100 Unit/Ml 10 Ml Vial) 28 unit SUBCUT DAILY [facility] Last Admin: 08/25/22 09:00 Dose: 28 unit Documented By: MARY KAY Insulin Human Lispro (Insulin Lispro 100 Unit/Ml 3 Ml Vial) 0 unit SUBCUT QIDACHS [facility]; Protocol Last Admin: 08/25/22 09:00 Dose: 1 unit Documented By: MARY KAY Lidocaine (Lidocaine 4 % Patch Adh..Patch) 1 patch TRANSDERMA DAILY [facility] Last Admin: 08/25/22 09:07 Dose: Not Given Documented By: MARY KAY Non-Admin Reason: Patient Refused Magnesium Oxide (Magnesium Oxide 400 Mg Tablet) 400 mg PO TID [facility] Last Admin: 08/25/22 09:00 Dose: 400 mg Documented By: MARY KAY Metoprolol Succinate (Metoprolol Succinate Er 50 Mg Tab.Er.24h) 50 mg PO DAILY [facility]; Protocol Last Admin: 08/25/22 08:58 Dose: 50 mg Documented By: MARY KAY Omeprazole (Omeprazole 20 Mg Capsule.Dr) 20 mg PO BEDTIME [facility] Last Admin: 08/24/22 20:55 Dose: 20 mg Documented By: KASSI Ondansetron HCl (Ondansetron Hcl 4 Mg/2 Ml Vial) 4 mg IVPUSH Q8H PRN PRN Reason: Nausea and Vomiting Pharmacy Consult (Consult Rx Perform Med Rec) 1 each MISCELLANE ONCE PRN PRN Reason: Consult order Sodium Chloride (0.9 % Sodium Chloride Flush 3 Ml Syringe) 3 ml IVFLUSH QSHIFT [facility] Last Admin: 08/25/22 09:01 Dose: 3 ml Documented By: MARY KAY Vitamin D (Cholecalciferol (Vitamin D3) 25 Mcg Tablet) 25 mcg PO DAILY [facility] Last Admin: 08/25/22 08:58 Dose: 25 mcg Documented By: MARY KAY Labs 08/24/22 06:39 08/25/22 06:35 Labs: Laboratory Results - last 24 hr 08/24/22 08/24/22 08/25/22 16:19 20:32 06:35 Estim Creat Clear Calc 77.5 Estimated GFR > 60 POC Glucose 246 H 221 H 08/25/22 07:17 Estim Creat Clear Calc Estimated GFR POC Glucose 193 H Microbiology Microbiology Results: Microbiology 08/19/22 08:03 Blood Culture - Final Blood - Venous No growth after 5 days. 08/22/22 07:15 Blood Culture - Preliminary Blood - Venous No growth after 48 hours. 08/22/22 07:15 Blood Culture - Preliminary Blood - Venous No growth after 48 hours. Assessment and Plan (1) Ulcer of left foot due to type 2 diabetes mellitus: Status: Acute (2) Sepsis: Status: Acute (3) Charcot foot due to diabetes mellitus: Status: Acute (4) COVID-19: Status: Acute Plan 57-year-old female with a PMH significant for Charcot foot,?PAD, IBS, HTN, insulin-dependent DM, and hx of osteomyelitis with multiple debridements who presented to the ED from hematology clinic?for evaluation of elevated temperature and WBCs. Sepsis 2/2 MSSA bacteremia from charcot foot with chronic osteomyelitis Continue Ceftriaxone 2 gm daily for 6 weeks - end date october 02, 2022 culture negative from 08/22/22 - awaiting picc patient advised for BKA - patient demonstrated understanding that medical opinion is that conservative therapy will have high probability of failure and may lead to sepsis or . she wishes to pursue conservative therapy anyway and or seek another opinion with Dr. Quijano LUIS Creatinine improved back to baseline (normal ) Back pain resolved, seems to be related to acute illness with sepsis and bacteremia CT of abdomen/pelvis w/o contrast d/t LUIS found evidence of perinephric stranding that may be chronic UA negative for UTI, pt denies dysuria and polyuria MRI ?left-sided L4-L5 facet joint with some periarticular edema seen, could be inflammatory vs septic arthritis Chest pain, chronic Pt complains of persistent chest pain since last October Cardiology input appreciated, patient is low risk for perioperative cardiac complications COVID infection Pt currently asymptomatic Monitor respiratory status Acute hypokalemia resolved after replacement Microcytic anemia, chronic, ?thallasemia Pt seen at hematology for Procrit shot, held for this week F/U outpatient at hematology clinic Insulin-dependent DM with hyperglycemia Hold home meds SSI, lantus Full Code DVT Prophylaxis: Lovenox reason for continued hospitalization:bacteremia on IV Abx and monitoring cultures Time Spent With Patient Time: Total time managing care of this patient today ____ minutes. Quality Stroke Does the patient have a stroke diagnosis?: No VTE Prior VTE?: No VTE Risk Level:: Medical - moderate - high VTE Device Contraindication: Treatment Not Indicated VTE Drug Contraindication: N/A - Med Ordered
[2022-08-25 11:21] LABS: Glucose, Whole Blood 222 mg/dL (60-115)
[2022-08-25 11:47] VITALS: BP 128/68; PULSE 90; RESP 17; TEMP 36.7; O2SAT 98
[2022-08-25] MEDS: cefTRIAXone sodium 2 GM in 0.9 % Sodium Chloride 50 ML IV (12:11)
[2022-08-25 16:00] VITALS: BP 140/82; PULSE 90; RESP 18; TEMP 37.4; O2SAT 98
[2022-08-25 16:37] LABS: Glucose, Whole Blood 171 mg/dL (60-115)
[2022-08-25] MEDS: Lidocaine 4 % Patch ADH..PATCH 1 PATCH TRANSDERMA (19:41)
[2022-08-25] MEDS: Acetaminophen 325 MG TABLET 650 MG PO (19:42)
[2022-08-25 20:00] VITALS: BP 140/68; PULSE 96; TEMP 36.6; O2SAT 97
[2022-08-25 21:25] LABS: Glucose, Whole Blood 250 mg/dL (60-115)
[2022-08-25] MEDS: Omeprazole 20 MG CAPSULE.DR PO (21:36)
[2022-08-25] MEDS: Enoxaparin Sodium 40 MG/0.4 ML SYRINGE SUBCUT (21:37)
[2022-08-25 23:24] VITALS: BP 137/64; PULSE 89; RESP 18; TEMP 36.9; O2SAT 97
[2022-08-26 03:03] VITALS: BP 136/67; PULSE 101; RESP 18; TEMP 37.1; O2SAT 93
[2022-08-26 07:08] LABS: Hematocrit 22.8 % (37.0-47.0); Mean Corpuscular HGB Conc 30.3 g/dl (31.0-35.0); Mean Corpuscular Hemoglobin 19.3 pg (27.0-33.0); Mean Platelet Volume 8.9 fL (9.4-12.3); Platelet Count 859 X10*3/uL (160-400); Red Blood Count 3.58 X10*6/uL (4.20-5.50); White Blood Count 17.2 X10*3/uL (4.8-10.8)
[2022-08-26 07:23] LABS: Anion Gap 15 (12-20); Blood Urea Nitrogen 18 mg/dL (9-16); Calcium 8.8 mg/dL (8.4-10.2); Carbon Dioxide 26 mmol/L (22-29); Chloride 100 mmol/L (96-108); Creatinine Clr Calc Pharmacy 79.7; Estimated Glomerular Filt Rate > 60; Glucose Fasting 134 mg/dL (60-99); Potassium 4.8 mmol/L (3.3-5.1); Sodium 136 mmol/L (135-145)
[2022-08-26 07:24] LABS: Glucose, Whole Blood 139 mg/dL (60-115)
[2022-08-26 07:26] LABS: Mean Corpuscular Volume 63.7 fL (80.0-98.0)
[2022-08-26 07:46] LABS: Hemoglobin 6.9 g/dl (12.0-16.0)
[2022-08-26 08:00] VITALS: BP 132/69; PULSE 98; RESP 18; TEMP 36.9; O2SAT 94
[2022-08-26] MEDS: Folic Acid 1 MG TABLET PO (09:30)
[2022-08-26] MEDS: Cholecalciferol (Vitamin D3) 25 MCG TABLET PO (09:30)
[2022-08-26] MEDS: amLODIPine Besylate 5 MG TABLET PO (09:30)
[2022-08-26] MEDS: Atorvastatin Calcium 40 MG TABLET PO (09:30)
[2022-08-26] MEDS: Magnesium Oxide 400 MG TABLET PO ×3 (09:31→21:33)
[2022-08-26] MEDS: Insulin Glargine,Hum.rec.anlog 100 UNIT/ML 10 ML VIAL 28 UNIT SUBCUT (09:31)
[2022-08-26] MEDS: Metoprolol Succinate ER 50 MG TAB.ER.24H PO (09:32)
[2022-08-26] MEDS: Aspirin Enteric Coated 81 MG TABLET.DR PO (09:34)
[2022-08-26] MEDS: Ezetimibe 10 MG TABLET PO (09:35)
[2022-08-26] MEDS: 0.9 % Sodium Chloride Flush 3 ML SYRINGE IVFLUSH ×3 (09:35→21:38)
--- NOTE | 2022-08-26 10:10 | P.PNIM_ITS ---
Subjective Subjective Date of Service: 08/26/22 Interval History: f/u on foot ulcer with necrosis, declining ampuation, she is of sound mind. Physical Exam Vital Signs: Vital Signs: Last Vital Signs Temp 98.5 F 08/26/22 08:00 Pulse 98 08/26/22 08:00 Resp 18 08/26/22 08:00 BP 132/69 08/26/22 08:00 Pulse Ox 94 08/26/22 08:00 O2 Del Method 08/26/22 08:00 O2 Flow Rate 2 08/18/22 04:00 BMI result Body Mass Index 34.3 Const: Other: Constitutional : Awake, interactive Neck : Normal inspection, Supple Cardiovascular : RRR, no JVP, no lower extremity edema Respiratory : good bilateral air entry, no crackles, wheezes or rhonchi Gastrointestinal: soft, lax, Normal bowel sounds, Non tender Skin : Warm, Dry, decreased swelling, erythema and drainage from left Charcot at foot--see pictures elsewhere Neurological : Alert & oriented x3, No focal deficit Objective Data Active Medications Acetaminophen (Acetaminophen 325 Mg Tablet) 650 mg PO Q6H PRN PRN Reason: Pain, Mild (Pain Scale 1-3) Last Admin: 08/25/22 19:42 Dose: 650 mg Documented By: MARY KAY Amlodipine Besylate (Amlodipine Besylate 5 Mg Tablet) [address] [facility]; Protocol Last Admin: 08/26/22 09:30 Dose: 5 mg Documented By: MARY KAY Aspirin (Aspirin Enteric Coated 81 Mg Tablet.) [address] [facility] Last Admin: 08/26/22 09:34 Dose: 81 mg Documented By: MARY KAY Atorvastatin Calcium (Atorvastatin Calcium 40 Mg Tablet) [address] [facility] Last Admin: 08/26/22 09:30 Dose: 40 mg Documented By: MARY KAY Dextrose (Dextrose 50 % 25 Gm/50 Ml Syringe) 25 gm IVPUSH Q15M PRN; Protocol PRN Reason: per Hypoglycemia Standing Ord. Docusate Sodium (Docusate Sodium 100 Mg Capsule) 100 mg PO DAILY PRN PRN Reason: Constipation Ezetimibe (Ezetimibe 10 Mg Tablet) [address] [facility] Last Admin: 08/26/22 09:35 Dose: 10 mg Documented By: MARY KAY Empagliflozin (Empagliflozin 25 Mg Tablet) [address] [facility] Last Admin: 08/26/22 09:35 Dose: Not Given Documented By: MARY KAY Non-Admin Reason: Patient Refused Enoxaparin Sodium (Enoxaparin Sodium 40 Mg/0.4 Ml Syringe) [address] [facility] Last Admin: 08/25/22 21:37 Dose: 40 mg Documented By: KASSI Folic Acid (Folic Acid 1 Mg Tablet) [address] [facility] Last Admin: 08/26/22 09:30 Dose: 1 mg Documented By: MARY KAY Glucose (Glucose Gel 15 Gm Gel..Gram.) 15 gm PO Q15M PRN; Protocol PRN Reason: per Hypoglycemia Standing Ord. Ceftriaxone Sodium 2 gm/ (Sodium Chloride) 50 mls @ 100 mls/hr IV Q24H [facility] Last Infusion: 08/25/22 13:07 Dose: 0 mls/hr Documented By: MARY KAY Insulin Glargine (Insulin Glargine,Hum.Rec.Anlog 100 Unit/Ml 10 Ml Vial) [address] [facility] Last Admin: 08/26/22 09:31 Dose: 28 unit Documented By: MARY KAY Insulin Human Lispro (Insulin Lispro 100 Unit/Ml 3 Ml Vial) [address] [facility]; Protocol Last Admin: 08/26/22 07:26 Dose: Not Given Documented By: MARY KAY Non-Admin Reason: No Insulin Coverage Lidocaine (Lidocaine 4 % Patch Adh..Patch) [address] [facility] Last Admin: 08/26/22 10:09 Dose: Not Given Documented By: MARY KAY Non-Admin Reason: Patient Refused Magnesium Oxide (Magnesium Oxide 400 Mg Tablet) [address] [facility] Last Admin: 08/26/22 09:31 Dose: 400 mg Documented By: MARY KAY Metoprolol Succinate (Metoprolol Succinate Er 50 Mg Tab.Er.24h) [address] [facility]; Protocol Last Admin: 08/26/22 09:32 Dose: 50 mg Documented By: MARY KAY Omeprazole (Omeprazole 20 Mg Capsule.) [address] [facility] Last Admin: 08/25/22 21:36 Dose: 20 mg Documented By: KASSI Ondansetron HCl (Ondansetron Hcl 4 Mg/2 Ml Vial) 4 mg IVPUSH Q8H PRN PRN Reason: Nausea and Vomiting Pharmacy Consult (Consult Rx Perform Med Rec) 1 each MISCELLANE ONCE PRN PRN Reason: Consult order Sodium Chloride (0.9 % Sodium Chloride Flush 3 Ml Syringe) [address] [facility] Last Admin: 08/26/22 09:35 Dose: 3 ml Documented By: MARY KAY Vitamin D (Cholecalciferol (Vitamin D3) 25 Mcg Tablet) [address] [facility] Last Admin: 08/26/22 09:30 Dose: 25 mcg Documented By: MARY KAY Labs 08/26/22 06:50 08/26/22 06:50 Labs: Laboratory Results - last 24 hr 08/25/22 08/25/22 08/25/22 11:17 16:28 21:22 MCV MCH MCHC RDW Plt Count MPV Absolute Nucleated RBC Nucleated RBC % (auto) Anion Gap Estim Creat Clear Calc Estimated GFR POC Glucose 222 H 171 H 250 H Fasting Glucose Calcium 08/26/22 08/26/22 08/26/22 06:50 06:50 07:12 MCV 63.7 L MCH 19.3 L MCHC 30.3 L RDW 21.0 H Plt Count 859 H MPV 8.9 L Absolute Nucleated RBC 0.000 Nucleated RBC % (auto) 0.0 Anion Gap 15 Estim Creat Clear Calc 79.7 Estimated GFR > 60 POC Glucose 139 H Fasting Glucose 134 H Calcium 8.8 Assessment and Plan (1) Ulcer of left foot due to type 2 diabetes mellitus: Status: Acute (2) Sepsis: Status: Acute (3) Charcot foot due to diabetes mellitus: Status: Acute (4) COVID-19: Status: Acute Plan 57-year-old female with a PMH significant for Charcot foot,?PAD, IBS, HTN, insulin-dependent DM, and hx of osteomyelitis with multiple debridements who presented to the ED from hematology clinic?for evaluation of elevated temperature and WBCs. Sepsis 2/2 MSSA bacteremia from charcot foot with chronic osteomyelitis Continue Ceftriaxone 2 gm daily for 6 weeks - end date october 02, 2022 culture negative from 08/22/22 - awaiting picc patient advised for BKA - patient demonstrated understanding that medical opinion is that conservative therapy will have high probability of failure and may lead to sepsis or . she wishes to pursue conservative therapy anyway and or seek another opinion with Dr. Quijano LUIS Creatinine improved back to baseline (normal ) Back pain resolved, seems to be related to acute illness with sepsis and bacteremia CT of abdomen/pelvis w/o contrast d/t LUIS found evidence of perinephric stranding that may be chronic UA negative for UTI, pt denies dysuria and polyuria MRI ?left-sided L4-L5 facet joint with some periarticular edema seen, could be inflammatory vs septic arthritis Chest pain, chronic Pt complains of persistent chest pain since last October Cardiology input appreciated, patient is low risk for perioperative cardiac complications COVID infection Pt currently asymptomatic Monitor respiratory status Acute hypokalemia resolved after replacement Microcytic anemia, chronic, ?thallasemia Pt seen at hematology for Procrit shot, will give procrit, monitor F/U outpatient at hematology clinic Insulin-dependent DM with hyperglycemia Hold home meds SSI, lantus Full Code DVT Prophylaxis: Lovenox reason for continued hospitalization:bacteremia on IV Abx and monitoring cu ltures Time Spent With Patient Time: Total time managing care of this patient today ____ minutes. Quality Stroke Does the patient have a stroke diagnosis?: No VTE Prior VTE?: No VTE Risk Level:: Medical - moderate - high VTE Device Contraindication: Treatment Not Indicated VTE Drug Contraindication: N/A - Med Ordered
[2022-08-26 11:16] LABS: Glucose, Whole Blood 200 mg/dL (60-115)
[2022-08-26 11:18] VITALS: BP 125/72; PULSE 92; RESP 17; TEMP 36.7; O2SAT 98
[2022-08-26] MEDS: Insulin Lispro 100 UNIT/ML 3 ML VIAL SUBCUT ×3 (12:00→21:31)
[2022-08-26] MEDS: cefTRIAXone sodium 2 GM in 0.9 % Sodium Chloride 50 ML IV (12:03)
[2022-08-26 16:00] VITALS: BP 120/68; PULSE 88; RESP 17; TEMP 36.7; O2SAT 98
[2022-08-26 17:07] LABS: Glucose, Whole Blood 173 mg/dL (60-115)
[2022-08-26 20:00] VITALS: BP 141/68; PULSE 95; RESP 18; TEMP 36.6; O2SAT 98
[2022-08-26 21:25] LABS: Glucose, Whole Blood 156 mg/dL (60-115)
[2022-08-26] MEDS: Omeprazole 20 MG CAPSULE.DR PO (21:31)
[2022-08-26] MEDS: Acetaminophen 325 MG TABLET 650 MG PO (21:34)
[2022-08-27] VITALS: BP 138/60; PULSE 84; RESP 20; TEMP 36.6; O2SAT 95
[2022-08-27 04:00] VITALS: BP 138/65; PULSE 95; RESP 18; TEMP 37.2; O2SAT 95
[2022-08-27 07:11] VITALS: BP 139/63; PULSE 98; RESP 18; TEMP 36.5; O2SAT 98
[2022-08-27 07:16] LABS: Hematocrit 25.5 % (37.0-47.0); Hemoglobin 7.6 g/dl (12.0-16.0); Mean Corpuscular HGB Conc 29.8 g/dl (31.0-35.0); Mean Platelet Volume 8.6 fL (9.4-12.3); Platelet Count 978 X10*3/uL (160-400); Red Blood Count 4.01 X10*6/uL (4.20-5.50); Red Cell Distribution Width 20.7 % (11.0-16.0); White Blood Count 15.3 X10*3/uL (4.8-10.8)
[2022-08-27 07:18] LABS: Mean Corpuscular Volume 63.6 fL (80.0-98.0)
[2022-08-27 07:25] LABS: Glucose, Whole Blood 120 mg/dL (60-115)
[2022-08-27 07:30] LABS: Anion Gap 17 (12-20); Blood Urea Nitrogen 15 mg/dL (9-16); Calcium 9.4 mg/dL (8.4-10.2); Carbon Dioxide 26 mmol/L (22-29); Chloride 98 mmol/L (96-108); Creatinine Clr Calc Pharmacy 74.5; Estimated Glomerular Filt Rate > 60; Glucose Fasting 126 mg/dL (60-99); Sodium 136 mmol/L (135-145)
[2022-08-27] MEDS: 0.9 % Sodium Chloride Flush 3 ML SYRINGE IVFLUSH ×3 (09:40→20:50)
[2022-08-27] MEDS: Lidocaine 4 % Patch ADH..PATCH 1 PATCH TRANSDERMA (09:41)
[2022-08-27] MEDS: Insulin Glargine,Hum.rec.anlog 100 UNIT/ML 10 ML VIAL 28 UNIT SUBCUT (09:41)
[2022-08-27] MEDS: Ezetimibe 10 MG TABLET PO (09:41)
[2022-08-27] MEDS: Metoprolol Succinate ER 50 MG TAB.ER.24H PO (09:42)
[2022-08-27] MEDS: Atorvastatin Calcium 40 MG TABLET PO (09:42)
[2022-08-27] MEDS: amLODIPine Besylate 5 MG TABLET PO (09:42)
[2022-08-27] MEDS: Acetaminophen 325 MG TABLET 650 MG PO (09:42)
[2022-08-27] MEDS: Cholecalciferol (Vitamin D3) 25 MCG TABLET PO (09:42)
[2022-08-27] MEDS: Aspirin Enteric Coated 81 MG TABLET.DR PO (09:42)
[2022-08-27] MEDS: Folic Acid 1 MG TABLET PO (09:43)
--- NOTE | 2022-08-27 10:02 | HO.PM.IMPN ---
Subjective Subjective Date of Service: 08/27/22 Interval History: f/u on foot ulcer with necrosis, declining ampuation, she is of sound mind. Physical Exam Vital Signs: Vital Signs: Last Vital Signs Temp 97.7 F 08/27/22 07:11 Pulse 98 08/27/22 07:11 Resp 18 08/27/22 07:11 BP 139/63 08/27/22 07:11 Pulse Ox 98 08/27/22 07:11 O2 Del Method 08/27/22 07:11 O2 Flow Rate 2 08/18/22 04:00 BMI result Body Mass Index 34.3 Const: Other: Constitutional : Awake, interactive Neck : Normal inspection, Supple Cardiovascular : RRR, no JVP, no lower extremity edema Respiratory : good bilateral air entry, no crackles, wheezes or rhonchi Gastrointestinal: soft, lax, Normal bowel sounds, Non tender Skin : Warm, Dry, decreased swelling, erythema and drainage from left Charcot at foot--see pictures elsewhere Neurological : Alert & oriented x3, No focal deficit Objective Data Active Medications Acetaminophen (Acetaminophen 325 Mg Tablet) 650 mg PO Q6H PRN PRN Reason: Pain, Mild (Pain Scale 1-3) Last Admin: 08/27/22 09:42 Dose: 650 mg Documented By: KARISHMA Amlodipine Besylate (Amlodipine Besylate 5 Mg Tablet) 5 mg PO DAILY [facility]; Protocol Last Admin: 08/27/22 09:42 Dose: 5 mg Documented By: KARISHMA Aspirin (Aspirin Enteric Coated 81 Mg Tablet.) 81 mg PO DAILY [facility] Last Admin: 08/27/22 09:42 Dose: 81 mg Documented By: KARISHMA Atorvastatin Calcium (Atorvastatin Calcium 40 Mg Tablet) 40 mg PO DAILY [facility] Last Admin: 08/27/22 09:42 Dose: 40 mg Documented By: KARISHMA Dextrose (Dextrose 50 % 25 Gm/50 Ml Syringe) 25 gm IVPUSH Q15M PRN; Protocol PRN Reason: per Hypoglycemia Standing Ord. Docusate Sodium (Docusate Sodium 100 Mg Capsule) 100 mg PO DAILY PRN PRN Reason: Constipation Ezetimibe (Ezetimibe 10 Mg Tablet) 10 mg PO DAILY [facility] Last Admin: 08/27/22 09:41 Dose: 10 mg Documented By: KARISHMA Empagliflozin (Empagliflozin 25 Mg Tablet) 25 mg PO DAILY [facility] Last Admin: 08/27/22 09:50 Dose: Not Given Documented By: KARISHMA Non-Admin Reason: Patient Refused Enoxaparin Sodium (Enoxaparin Sodium 40 Mg/0.4 Ml Syringe) 40 mg SUBCUT Q24H [facility] Last Admin: 08/26/22 21:33 Dose: Not Given Documented By: KASSI Non-Admin Reason: low h/h Folic Acid (Folic Acid 1 Mg Tablet) 1 mg PO DAILY [facility] Last Admin: 08/27/22 09:43 Dose: 1 mg Documented By: KARISHMA Glucose (Glucose Gel 15 Gm Gel..Gram.) 15 gm PO Q15M PRN; Protocol PRN Reason: per Hypoglycemia Standing Ord. Ceftriaxone Sodium 2 gm/ (Sodium Chloride) 50 mls @ 100 mls/hr IV Q24H [facility] Last Infusion: 08/26/22 13:32 Dose: 0 mls/hr Documented By: MARY KAY Insulin Glargine (Insulin Glargine,Hum.Rec.Anlog 100 Unit/Ml 10 Ml Vial) 28 unit SUBCUT DAILY [facility] Last Admin: 08/27/22 09:41 Dose: 28 unit Documented By: KARISHMA Insulin Human Lispro (Insulin Lispro 100 Unit/Ml 3 Ml Vial) 0 unit SUBCUT QIDACHS [facility]; Protocol Last Admin: 08/27/22 07:26 Dose: Not Given Documented By: KARISHMA Non-Admin Reason: No Insulin Coverage Lidocaine (Lidocaine 4 % Patch Adh..Patch) 1 patch TRANSDERMA DAILY [facility] Last Admin: 08/27/22 09:41 Dose: 1 patch Documented By: KARISHMA Magnesium Oxide (Magnesium Oxide 400 Mg Tablet) 400 mg PO TID [facility] Last Admin: 08/26/22 21:33 Dose: 400 mg Documented By: KASSI Metoprolol Succinate (Metoprolol Succinate Er 50 Mg Tab.Er.24h) 50 mg PO DAILY [facility]; Protocol Last Admin: 08/27/22 09:42 Dose: 50 mg Documented By: KARISHMA Omeprazole (Omeprazole 20 Mg Capsule.Dr) 20 mg PO BEDTIME [facility] Last Admin: 08/26/22 21:31 Dose: 20 mg Documented By: KASSI Ondansetron HCl (Ondansetron Hcl 4 Mg/2 Ml Vial) 4 mg IVPUSH Q8H PRN PRN Reason: Nausea and Vomiting Pharmacy Consult (Consult Rx Perform Med Rec) 1 each MISCELLANE ONCE PRN PRN Reason: Consult order Sodium Chloride (0.9 % Sodium Chloride Flush 3 Ml Syringe) 3 ml IVFLUSH QSHIFT [facility] Last Admin: 08/27/22 09:40 Dose: 3 ml Documented By: KARISHMA Vitamin D (Cholecalciferol (Vitamin D3) 25 Mcg Tablet) 25 mcg PO DAILY [facility] Last Admin: 08/27/22 09:42 Dose: 25 mcg Documented By: KARISHMA Labs 08/27/22 06:57 08/27/22 06:57 Labs: Laboratory Results - last 24 hr 08/26/22 08/26/22 08/26/22 11:12 16:42 21:20 MCV MCH MCHC RDW Plt Count MPV Absolute Nucleated RBC Nucleated RBC % (auto) Anion Gap Estim Creat Clear Calc Estimated GFR POC Glucose 200 H 173 H 156 H Fasting Glucose Calcium 08/27/22 08/27/22 08/27/22 06:57 06:57 07:10 MCV 63.6 L MCH 19.0 L MCHC 29.8 L RDW 20.7 H Plt Count 978 H MPV 8.6 L Absolute Nucleated RBC 0.000 Nucleated RBC % (auto) 0.0 Anion Gap 17 Estim Creat Clear Calc 74.5 Estimated GFR > 60 POC Glucose 120 H Fasting Glucose 126 H Calcium 9.4 D Microbiology Microbiology Results: Microbiology 08/22/22 07:15 Blood Culture - Final Blood - Venous No growth after 5 days. 08/22/22 07:15 Blood Culture - Final Blood - Venous No growth after 5 days. Assessment and Plan (1) Ulcer of left foot due to type 2 diabetes mellitus: Status: Acute (2) Sepsis: Status: Acute (3) Charcot foot due to diabetes mellitus: Status: Acute (4) COVID-19: Status: Acute Plan 57-year-old female with a PMH significant for Charcot foot,?PAD, IBS, HTN, insulin-dependent DM, and hx of osteomyelitis with multiple debridements who presented to the ED from hematology clinic?for evaluation of elevated temperature and WBCs. Sepsis 2/2 MSSA bacteremia from charcot foot with chronic osteomyelitis Continue Ceftriaxone 2 gm daily for 6 weeks - end date october 02, 2022 culture negative from 08/22/22 - awaiting picc patient advised for BKA - patient demonstrated understanding that medical opinion is that conservative therapy will have high probability of failure and may lead to sepsis or . she wishes to pursue conservative therapy anyway and or seek another opinion with Dr. Quijano LUIS Creatinine improved back to baseline (normal ) Back pain resolved, seems to be related to acute illness with sepsis and bacteremia CT of abdomen/pelvis w/o contrast d/t LUIS found evidence of perinephric stranding that may be chronic UA negative for UTI, pt denies dysuria and polyuria MRI ?left-sided L4-L5 facet joint with some periarticular edema seen, could be inflammatory vs septic arthritis Chest pain, chronic Pt complains of persistent chest pain since last October Cardiology input appreciated, patient is low risk for perioperative cardiac complications COVID infection Pt currently asymptomatic Monitor respiratory status Acute hypokalemia resolved after replacement Microcytic anemia, chronic, ?thallasemia Pt seen at hematology for Procrit shot, will give procrit, monitor F/U outpatient at hematology clinic Insulin-dependent DM with hyperglycemia Hold home meds SSI, lantus Full Code DVT Prophylaxis: Lovenox reason for continued hospitalization:bacteremia on IV Abx and monitoring cultures Time Spent With Patient Time: Total time managing care of this patient today ____ minutes. Quality Stroke Does the patient have a stroke diagnosis?: No VTE Prior VTE?: No VTE Risk Level:: Medical - moderate - high VTE Device Contraindication: Treatment Not Indicated VTE Drug Contraindication: N/A - Med Ordered
[2022-08-27 11:06] LABS: Glucose, Whole Blood 186 mg/dL (60-115)
[2022-08-27 11:43] VITALS: BP 132/68; PULSE 87; RESP 17; TEMP 36.9
[2022-08-27] MEDS: Insulin Lispro 100 UNIT/ML 3 ML VIAL SUBCUT ×3 (12:05→20:50)
[2022-08-27] MEDS: cefTRIAXone sodium 2 GM in 0.9 % Sodium Chloride 50 ML IV (12:05)
[2022-08-27] MEDS: Magnesium Oxide 400 MG TABLET PO ×3 (12:08→20:50)
[2022-08-27 15:23] VITALS: BP 126/58; PULSE 88; RESP 17; TEMP 36.7; O2SAT 97
[2022-08-27 15:42] LABS: Glucose, Whole Blood 223 mg/dL (60-115)
[2022-08-27 19:48] VITALS: BP 144/66; PULSE 96; RESP 17; TEMP 37.7; O2SAT 92
[2022-08-27 20:30] LABS: Glucose, Whole Blood 213 mg/dL (60-115)
[2022-08-27] MEDS: Omeprazole 20 MG CAPSULE.DR PO (20:50)
[2022-08-28] VITALS: BP 138/68; PULSE 85; RESP 18; TEMP 36.6; O2SAT 95
[2022-08-28 03:35] VITALS: BP 136/63; PULSE 97; RESP 18; TEMP 36.4; O2SAT 94
[2022-08-28 07:18] LABS: Hematocrit 23.3 % (37.0-47.0); Hemoglobin 7.1 g/dl (12.0-16.0); Mean Corpuscular HGB Conc 30.5 g/dl (31.0-35.0); Mean Corpuscular Hemoglobin 19.4 pg (27.0-33.0); Mean Platelet Volume 8.8 fL (9.4-12.3); Platelet Count 908 X10*3/uL (160-400); Red Blood Count 3.66 X10*6/uL (4.20-5.50); Red Cell Distribution Width 20.5 % (11.0-16.0); White Blood Count 15.1 X10*3/uL (4.8-10.8)
[2022-08-28 07:19] LABS: Mean Corpuscular Volume 63.7 fL (80.0-98.0)
[2022-08-28 07:20] VITALS: BP 130/62; PULSE 68; RESP 20; TEMP 36.4; O2SAT 96
[2022-08-28 07:26] LABS: Glucose, Whole Blood 111 mg/dL (60-115)
[2022-08-28 07:28] LABS: Anion Gap 15 (12-20); Blood Urea Nitrogen 14 mg/dL (9-16); Calcium 9.1 mg/dL (8.4-10.2); Carbon Dioxide 26 mmol/L (22-29); Chloride 98 mmol/L (96-108); Creatinine Clr Calc Pharmacy 76.5; Estimated Glomerular Filt Rate > 60; Glucose Fasting 113 mg/dL (60-99); Potassium 5.2 mmol/L (3.3-5.1); Sodium 134 mmol/L (135-145)
[2022-08-28] MEDS: Magnesium Oxide 400 MG TABLET PO (08:14)
[2022-08-28] MEDS: Folic Acid 1 MG TABLET PO (08:14)
[2022-08-28] MEDS: Atorvastatin Calcium 40 MG TABLET PO (08:14)
[2022-08-28] MEDS: Cholecalciferol (Vitamin D3) 25 MCG TABLET PO (08:14)
[2022-08-28] MEDS: Aspirin Enteric Coated 81 MG TABLET.DR PO (08:14)
[2022-08-28] MEDS: Ezetimibe 10 MG TABLET PO (08:14)
[2022-08-28] MEDS: Metoprolol Succinate ER 50 MG TAB.ER.24H PO (08:15)
[2022-08-28] MEDS: 0.9 % Sodium Chloride Flush 3 ML SYRINGE IVFLUSH (08:15)
[2022-08-28] MEDS: amLODIPine Besylate 5 MG TABLET PO (08:15)
[2022-08-28] MEDS: Insulin Glargine,Hum.rec.anlog 100 UNIT/ML 10 ML VIAL 28 UNIT SUBCUT (08:22)
--- NOTE | 2022-08-28 08:30 | PC.NURSE ---
Assumed care of patient at this time. 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
--- NOTE | 2022-08-28 09:30 | PM.DS ---
DS: Providers Provider Date of Service: 08/28/22 Date of admission: 08/15/22 19:12 Primary care physician: TAMY Ram Consults: 08/16/22 01:31 Consult to Infectious Diseases Routine Consulting Provider: Leonarda Castorena Reason for consultation: ?Osteomyelitis of left foot Consult to Vascular Surgery Routine Consulting Provider: Ton Vigil Reason for consultation: ?Osteomyelitis of left foot 08/17/22 11:03 Consult to Cardiology Routine Consulting Provider: Hayes Middleton Reason for consultation: chest pains, preop cardiac clearance for surgery DS: Diagnosis Discharge Diagnosis (1) Ulcer of left foot due to type 2 diabetes mellitus: Status: Acute (2) Sepsis: Status: Acute (3) Charcot foot due to diabetes mellitus: Status: Acute (4) COVID-19: Status: Acute DS: Summary Hospital Course Hospital Course: from initial hpi: Pt is a 57-year-old female with a PMH significant for Charcot foot,?PAD, IBS, CKD, HTN, insulin-dependent DM, and hx of osteomyelitis with multiple debridements who presents to the ED from hematology clinic?for evaluation of elevated temperature and WBCs. Pt reports that she was unaware she had a temperature but had noticed an open wound on her left foot was draining what looked like blood rather than pus since this weekend. Pt seems hematology for Procrit shots for anemia and is followed by ID, vascular surgery, and wound care clinic for her foot. Pt complains of chronic chest pain that has been ongoing for months for which she is seen by [facility]. Pt also complains of left flank pain which began on Saturday. Pt states she feels like her left kidney was stomped on. Pt denies dysuria, polyuria, or urinary incontinence. Has chronic headaches.? In the ED pt was febrile up to 102.3 and tachycardic. Labs were significant for leukocytosis of 23.1, stable H&H of 9.1/29.5, MCV 59.6, ESR 102, CRP 36.37, creatinine 1.23 (baseline 0.90), BNP 233, magnesium 1.5, troponin 9.1 with repeat 8.3, and lactic acid WNL at 1.1. UA clean for UTI. Pt tested positive for COVID. CXR showed no acute cardiopulmonary findings. XR of left foot showed evidence consistent with progressive Charcot arthropathy and osteomyelitis. CT?w/o contrast of abdomen and pelvis demonstrated mild bilateral perinephric stranding that may be chronic though pyelonephritis cannot be excluded and cholelithiasis. Venous duplex of left lower leg negative for DVT. EKG demonstrate sinus tachycardia without evidence of ST elevations or depressions. Pt was treated with IVF, ketorolac, and cefepime. Pt will be admitted to the hospital for treatment and further evaluation of chronic diabetic foot ulcer concerning for osteomyelitis. hospital course: Patient was admitted for sepsis secondary to cellulitis and acute on chronic osteomyelitis due to diabetes complicated by Charcot foot and MSSA bacteremia. Patient was treated with ceftriaxone 2 g daily, recommendations from vascular and ID were for below-knee amputation, patient's infection has low likelihood of resolution on IV antibiotics alone and has a transfer progression to sepsis, however, patient is not interested in amputation at this time and would prefer to continue conservative therapy with IV antibiotics and wound care. Patient will be on IV ceftriaxone 2 g daily until 10/02/2022. Course was complicated by acute kidney injury which resolved. She was incidentally noted to have COVID infection which was asymptomatic. For hypokalemia this was replaced. Patient has chronic microcytic anemia, multifactorial, due to thalassemia and chronic inflammation. She will follow-up with Hematology as outpatient. For diabetes with hyperglycemia she was continued on insulin. Patient is medically stable will be discharged home. Time Spent with Patient Time attestation: Total time managing care of this patient today ____ minutes. Discharge coordination time: Greater than 30 minutes Quality: Safe Use of Opioids Does Pt have an Active Cancer Diagnosis on the Problem List?: No Quality: Stroke Does the patient have a stroke diagnosis?: No Physical Exam Vital Signs: Vital Signs: Last Vital Signs Temp 97.6 F 08/28/22 07:20 Pulse 68 08/28/22 07:20 Resp 20 08/28/22 07:20 BP 130/62 08/28/22 07:20 Pulse Ox 96 08/28/22 07:20 O2 Del Method 08/28/22 07:20 O2 Flow Rate 2 08/18/22 04:00 BMI result Body Mass Index 34.3 Const: Other: Constitutional : Awake, interactive Neck : Normal inspection, Supple Cardiovascular : RRR, no JVP, no lower extremity edema Respiratory : good bilateral air entry, no crackles, wheezes or rhonchi Gastrointestinal: soft, lax, Normal bowel sounds, Non tender Skin : Warm, Dry, decreased swelling, erythema and drainage from left Charcot at foot--see pictures elsewhere Neurological : Alert & oriented x3, No focal deficit DS: Data Data Completed and Pending Completed studies during hospitalization [Text1]: Procedures Drainage of Left Foot Skin, External Approach (05/12/22) Insertion of Infusion Device into Superior Vena Cava, Percutaneous Approach (05/12/22) Transfusion of Nonautologous Red Blood Cells into Peripheral Vein, Percutaneous Approach (05/12/22) Ultrasonography of Superior Vena Cava, Guidance (05/12/22) Labs on day of discharge: Laboratory Results - last 24 hr 08/27/22 08/27/22 08/27/22 10:49 15:33 20:15 WBC RBC Hgb Hct MCV MCH MCHC RDW Plt Count MPV Absolute Nucleated RBC Nucleated RBC % (auto) Sodium Potassium Chloride Carbon Dioxide Anion Gap BUN Creatinine Estim Creat Clear Calc Estimated GFR POC Glucose 186 H 223 H 213 H Fasting Glucose Calcium 08/28/22 08/28/22 08/28/22 06:49 06:49 07:21 WBC 15.1 H RBC 3.66 L Hgb 7.1 L Hct 23.3 L MCV 63.7 L MCH 19.4 L MCHC 30.5 L RDW 20.5 H Plt Count 908 H MPV 8.8 L Absolute Nucleated RBC 0.000 Nucleated RBC % (auto) 0.0 Sodium 134 L Potassium 5.2 H Chloride 98 Carbon Dioxide 26 Anion Gap 15 BUN 14 Creatinine 0.74 Estim Creat Clear Calc 76.5 Estimated GFR > 60 POC Glucose 111 Fasting Glucose 113 H Calcium 9.1 Discharge Plan Discharge Anticipated Discharge Date/Time: 08/28/22 09:27 Patient Disposition: Home Health Service Discharge Diagnosis: dfu, om Referrals: Rosalind Cardoso FNP [Primary Care Provider] - 1 Week Discharge Medications: New ceftriaxone 2 gram Recon Soln 2 g IV Q24H Qty: 0 0RF Rx Instructions: end september Continued folic acid 1 mg Tablet 1 mg PO DAILY Qty: 90 3RF metoprolol succinate 50 mg Tablet Extended Release 24 Hr 50 mg PO DAILY Qty: 30 0RF Protocol: Hold for SBP/HR < HOLD for SBP < : 90 HOLD for HR < : 60 amlodipine 5 mg Tablet 5 mg PO DAILY Qty: 30 0RF Protocol: Hold for SBP< HOLD for SBP < : 90 lidocaine 5 % adhesive patch,medicated 1 patch topical DAILY insulin glargine [Lantus Solostar U-100 Insulin] 100 unit/mL (3 mL) insulin pen 40 unit subcut DAILY magnesium oxide 400 mg (241.3 mg magnesium) tablet 400 mg PO TID aspirin 81 mg tablet,delayed release (DR/EC) 1 tab PO DAILY metformin 1,000 mg tablet 1 tab PO BID cholecalciferol (vitamin D3) 25 mcg (1,000 unit) tablet 1 tab PO DAILY (DME) lancets [TRUEplus Lancets] 33 gauge misc See Rx Instructions topical .MEDSUPPLY Qty: 100 Rx Instructions: As directed (DME) pen needle, diabetic [UltiCare Pen Needle] 31 gauge x 5/16 needle See Rx Instructions subcut .MEDSUPPLY Qty: 1200 Rx Instructions: As directed (DME) FreeStyle Lite Strips Strip See Rx Instructions Not Applicable TID Qty: 10 Rx Instructions: As directed Jardiance 25 mg tablet 25 mg PO DAILY atorvastatin 40 mg tablet 40 mg PO DAILY ezetimibe 10 mg tablet 10 mg PO DAILY pantoprazole 40 mg tablet,delayed release (DR/EC) 40 mg PO BEDTIME pioglitazone 15 mg tablet 15 mg PO DAILY Discharge Orders: Discharge Order (Routine); Ordered 08/28/22 Ordered By: Yousuf Garcia Diet: Diabetic diet Activity on Discharge: As tolerated Stand Alone Forms: Patient Portal Discharge page Care Plan Goals: recovery Health Concerns: DFU Plan of Treatment: ceftriaxone until october 02, 2022 and wound care.. this has a high chance of failure and progression to sepsis, monitor closely follow up with hematology for chronic anemia Assessment: see above
--- NOTE | 2022-08-28 10:38 | MHC.CM.PN ---
DP:IMM DELIVERED PT HAS BEEN MEDICALLY CLEARED FOR DC HOME WITH SERVICES WITH [facility]. RN AWARE. PT STATES SHE HAS HER OWN RIDE HOME. [facility] NOTIFIED OF DC.
--- NOTE | 2022-08-28 10:47 | P.PICC_ITS ---
PICC Line Insertion NPICC Diagnosis: Ulcers left foot MSSA Bactermia Indication: long term care social worker antibiotics Pertinent Labs: reviewed Technique: Dr Castorena approved placement of this PICC. Following informed consent including risks, benefits and alternatives and using sterile technique including cap and mask, sterile gown, glove and drape, the right arm was prepped and draped in the usual sterile fashion of full barrier technique with CHG. Following completion of [place] Protocol the skin and soft tissues were anesthetized with 1% Lidocaine plain. Using ultrasound guidance, right brachial vein access was obtained in a second attempt by this RN. Over an 0.018 wire through peel-away sheath, a single lumen 4 fr PASV Bard PowerPICC Solo line was positioned. Catheter length is 41 cm internal length, 1 cm external length, for a total trimmed length of 42 cm. The procedure was performed in room S272. Tip verification was performed by Anna Velez with Sherlock 3CG. Tip located in SVC. Ultrasound was used to document vein patency and for needle entry. A formal ultrasound picture and cardiac rhythm strip was recorded. Vascular Nutrition Technician has released the line for use and it is currently dressed with a StatLock, Tegaderm, and CHG disc. Verification has been performed for blood return and line patency. Arm Circumference: 36cm Equipment: BARD PowerPICC Solo with Sherlock 3CG Tip Catheter Type: 4 moldovan single lumen PASV PICC Lot #: [id number]
[2022-08-28 11:29] VITALS: BP 125/53; PULSE 95; RESP 20; TEMP 36.9; O2SAT 96
[2022-08-28 11:39] LABS: Glucose, Whole Blood 168 mg/dL (60-115)
[2022-08-28] MEDS: cefTRIAXone sodium 2 GM in 0.9 % Sodium Chloride 50 ML IV (12:14)
[2022-08-28] MEDS: Insulin Lispro 100 UNIT/ML 3 ML VIAL SUBCUT (12:15)
== END 2022-08-28 13:24 | disposition home health service (06) | DRG 871 ==
LOC: HO.ED 17:23 → HO.EDOVER 19:33 → HO.IMC 20:18
PROVIDERS: Internal Medicine; Nurse Practitioner Family; Physician Assistant; Student in an Organized Health Care Education/Training Program; Admitting Provider Student in an Organized Health Care Education/Training Program; Emergency Provider Emergency Medicine; PCP Registered Nurse; Visit Provider Internal Medicine
DX: A41.01 Sepsis due to Methicillin susceptible Staphylococcus aureus (principal); U07.1 COVID-19; E11.52 Type 2 diabetes mellitus with diabetic peripheral angiopathy with gangrene; I96 Gangrene, not elsewhere classified; L03.116 Cellulitis of left lower limb; N17.9 Acute kidney failure, unspecified; M86.672 Other chronic osteomyelitis, left ankle and foot; K21.9 Gastro-esophageal reflux disease without esophagitis; D50.9 Iron deficiency anemia, unspecified; E11.610 Type 2 diabetes mellitus with diabetic neuropathic arthropathy; E11.69 Type 2 diabetes mellitus with other specified complication; E11.628 Type 2 diabetes mellitus with other skin complications; G89.29 Other chronic pain; E87.6 Hypokalemia; D56.9 Thalassemia, unspecified; E11.621 Type 2 diabetes mellitus with foot ulcer; L97.529 Non-pressure chronic ulcer of other part of left foot with unspecified severity; E11.65 Type 2 diabetes mellitus with hyperglycemia; Z79.4 Long term (current) use of insulin; Z79.82 Long term (current) use of aspirin; Z79.84 Long term (current) use of oral hypoglycemic drugs; Z79.899 Other long term (current) drug therapy
CPT/HCPCS: 0241U; 36415; 36573; 71045; 72158; 73620; 74176; 80048; 80076; 80202; 81001; 82565; 82947; 83605; 83735; 83880; 84484; 85025; 85027; 85610; 85652; 86850; 86900; 86901; 86923; 87040; 87077; 87147; 87186; 87205; 93005; 93306; 93971; 99285; A9585; C1751; J0692; J0696; J0885; J1650; J1885; J2543; J3370; J3371; P9016; Q9957

== ENCOUNTER → 2022-09-11 14:05 | Outpatient (BNVA) | payer OTHER, SELFPAY | PROVIDERS: PCP Registered Nurse; Referring Provider Registered Nurse; Visit Provider Nurse Practitioner Family | DX: I47.1 Supraventricular tachycardia (principal); R07.9 Chest pain, unspecified; E11.9 Type 2 diabetes mellitus without complications; D64.9 Anemia, unspecified | CPT/HCPCS: 99212 ==

== ENCOUNTER 2022-11-20 15:42 | Outpatient (REF) | payer OTHER, SELFPAY ==
[2022-11-20 16:47] LABS: MANUAL DIFF FLAG NO
[2022-11-20 17:07] LABS: Basophils Absolute Auto 0.1 X10*3/uL (0.0-0.2); Basophils Percent Auto 0.6 % (0-2); Eosinophils Absolute Auto 0.4 X10*3/uL (0.0-0.4); Eosinophils Percent Auto 3.8 % (0-4); Hematocrit 27.3 % (37.0-47.0); Hemoglobin 8.4 g/dl (12.0-16.0); Imm Gran Abs Auto 0.04 X10*3/uL (0.00-0.03); Imm Gran Pct Auto 0.4 % (0.0-0.4); Lymphocytes Absolute Auto 2.7 X10*3/uL (1.2-4.9); Lymphocytes Percent Auto 26.7 % (20-40); Mean Corpuscular HGB Conc 30.8 g/dl (31.0-35.0); Mean Corpuscular Hemoglobin 20.5 pg (27.0-33.0); Mean Corpuscular Volume 66.7 fL (80.0-98.0); Mean Platelet Volume 9.5 fL (9.4-12.3); Monocytes Absolute Auto 0.8 X10*3/uL (0.1-1.2); Monocytes Percent Auto 7.8 % (2-11); Neutrophils Absolute Auto 6.1 x10*3/uL (2.0-8.3); Neutrophils Percent Auto 60.7 % (45-73); Platelet Count 386 X10*3/uL (160-400); Red Blood Count 4.09 X10*6/uL (4.20-5.50); White Blood Count 10.1 X10*3/uL (4.8-10.8)
[2022-11-20 18:13] LABS: Anion Gap 12 (12-20)
[2022-11-20 18:14] LABS: Alanine Aminotransferase 18 U/L (0-31); Albumin Level 3.8 g/dL (3.5-5.0); Alkaline Phosphatase 87 U/L (39-117); Aspartate Amino Transferase 17 U/L (5-31); Bilirubin Total 0.4 mg/dL (0.0-1.0); Blood Urea Nitrogen 24 mg/dL (9-16); Calcium 10.2 mg/dL (8.4-10.2); Carbon Dioxide 29 mmol/L (22-29); Chloride 102 mmol/L (96-108); Cholesterol 172 mg/dL; Estimated Glomerular Filt Rate > 60; Glucose Random 134 mg/dL (60-115); HDL Cholesterol 36 mg/dL; LDL Cholesterol Calculated 109 mg/dl; Potassium 3.9 mmol/L (3.3-5.1); Sodium 139 mmol/L (135-145); Total Protein 6.6 g/dL (6.5-8.0); Triglycerides 136 mg/dL
== END 2022-11-20 15:43 | disposition home or self-care (01) ==
LOC: HO.LAB 15:42
PROVIDERS: PCP Registered Nurse; Referring Provider Registered Nurse; Visit Provider Nurse Practitioner Family
DX: R07.9 Chest pain, unspecified (principal); I25.10 Atherosclerotic heart disease of native coronary artery without angina pectoris; I47.1 Supraventricular tachycardia; E11.9 Type 2 diabetes mellitus without complications; D64.9 Anemia, unspecified
CPT/HCPCS: 36415; 80053; 80061; 85025; 99212

== ENCOUNTER 2022-11-23 13:38 | Outpatient (REF) | payer OTHER, SELFPAY ==
--- NOTE | ~2022-11-23 | MM_ITS ---
EXAMINATION: MM DIAGNOSTIC DIGITAL BREAST TOMOSYNTHESIS, BILATERAL CLINICAL INFORMATION: Density upper outer aspect of the right breast. The lifetime risk of breast cancer based on the Tyrer-Cuzick Model is 6.1%. COMPARISON: Mammography: May 18, 2022 and studies dating back to December 06, 2015 TECHNIQUE: Digital breast tomosynthesis is performed in both the craniocaudal and mediolateral oblique views along with computer-aided detection (CAD). Synthesized 2D images are generated from the tomosynthesis. FINDINGS: The breasts are almost entirely fatty (ACR BI-RADS breast composition Category a). The previously noted density about the upper outer aspect of the right breast is no longer seen. No new abnormal dominant mass or suspicious grouping of microcalcifications identified. Results are provided to the patient at time of visit by the technologist. MM/MM tomosynthesis diagnostic BI IMPRESSION: No mammographic evidence of malignancy. ASSESSMENT: BI-RADS 1: Negative RECOMMENDATION: Routine annual mammography screening due in 12 months. This patient's information was entered into a reminder system with a target due date for their next mammogram.
== END 2022-11-23 13:39 | disposition home or self-care (01) ==
LOC: HO.MAMMO 13:38
PROVIDERS: PCP Registered Nurse; Visit Provider Registered Nurse
DX: R92.2 Inconclusive mammogram (principal)
CPT/HCPCS: 77062; 77066

== ENCOUNTER 2022-12-27 09:20 | Outpatient (REF) | payer OTHER, SELFPAY | END 2022-12-27 09:21 | disposition home or self-care (01) | LOC: HO.HOSX 09:20 | PROVIDERS: Visit Provider Orthopaedic Surgery | DX: M17.11 Unilateral primary osteoarthritis, right knee (principal); M25.551 Pain in right hip; M54.31 Sciatica, right side; T87.89 Other complications of amputation stump; Z89.512 Acquired absence of left leg below knee | CPT/HCPCS: 73560; 73565; 99202 ==

== ENCOUNTER 2023-01-14 13:16 | Outpatient (REF) | payer OTHER, SELFPAY ==
[2023-01-14 16:35] LABS: MANUAL DIFF FLAG NO
[2023-01-14 17:08] LABS: Basophils Absolute Auto 0.1 X10*3/uL (0.0-0.2); Basophils Percent Auto 0.8 % (0-2); Eosinophils Absolute Auto 0.3 X10*3/uL (0.0-0.4); Eosinophils Percent Auto 3.4 % (0-4); Hematocrit 35.6 % (37.0-47.0); Hemoglobin 10.7 g/dl (12.0-16.0); Imm Gran Abs Auto 0.02 X10*3/uL (0.00-0.03); Imm Gran Pct Auto 0.3 % (0.0-0.4); Lymphocytes Absolute Auto 2.2 X10*3/uL (1.2-4.9); Lymphocytes Percent Auto 28.2 % (20-40); Mean Corpuscular HGB Conc 30.1 g/dl (31.0-35.0); Mean Corpuscular Hemoglobin 20.4 pg (27.0-33.0); Mean Corpuscular Volume 67.8 fL (80.0-98.0); Mean Platelet Volume 10.7 fL (9.4-12.3); Monocytes Absolute Auto 0.7 X10*3/uL (0.1-1.2); Monocytes Percent Auto 8.5 % (2-11); Neutrophils Absolute Auto 4.6 x10*3/uL (2.0-8.3); Neutrophils Percent Auto 58.8 % (45-73); Platelet Count 488 X10*3/uL (160-400); Red Blood Count 5.25 X10*6/uL (4.20-5.50); Red Cell Distribution Width 19.9 % (11.0-16.0); White Blood Count 7.9 X10*3/uL (4.8-10.8)
[2023-01-14 17:31] LABS: Alanine Aminotransferase 13 U/L (0-31); Albumin Level 3.8 g/dL (3.5-5.0); Alkaline Phosphatase 74 U/L (39-117); Anion Gap 17 (12-20); Aspartate Amino Transferase 18 U/L (5-31); Bilirubin Total 0.5 mg/dL (0.0-1.0); Blood Urea Nitrogen 37 mg/dL (9-16); Calcium 10.7 mg/dL (8.4-10.2); Carbon Dioxide 24 mmol/L (22-29); Chloride 103 mmol/L (96-108); Estimated Glomerular Filt Rate > 60; Glucose Random 134 mg/dL (60-115); Sodium 140 mmol/L (135-145); Total Protein 7.2 g/dL (6.5-8.0)
[2023-01-14 17:41] LABS: Erythrocyte Sedimentation Rate 16 MM/HR (0-20)
[2023-01-14 17:45] LABS: Ferritin 515 ng/mL (10-250)
[2023-01-14 18:10] LABS: C Reactive Protein < 0.10 mg/dL (< or = 0.50); Magnesium 2.2 mg/dL (1.6-2.6)
== END 2023-01-14 13:17 | disposition home or self-care (01) ==
LOC: HO.HHCL 13:16
PROVIDERS: Registered Nurse; Visit Provider Internal Medicine Medical Oncology
DX: D50.9 Iron deficiency anemia, unspecified (principal); N18.32 Chronic kidney disease, stage 3b; Z89.512 Acquired absence of left leg below knee
CPT/HCPCS: 36415; 80053; 82728; 83735; 85025; 85652; 86140

== ENCOUNTER 2023-01-30 15:14 | Outpatient (REF) | payer OTHER, SELFPAY ==
[2023-01-30 16:13] LABS: MANUAL DIFF FLAG NO
[2023-01-30 16:47] LABS: Basophils Percent Auto 0.5 % (0-2); Eosinophils Absolute Auto 0.2 X10*3/uL (0.0-0.4); Eosinophils Percent Auto 2.8 % (0-4); Hematocrit 39.9 % (37.0-47.0); Hemoglobin 11.9 g/dl (12.0-16.0); Imm Gran Abs Auto 0.03 X10*3/uL (0.00-0.03); Imm Gran Pct Auto 0.4 % (0.0-0.4); Lymphocytes Absolute Auto 2.3 X10*3/uL (1.2-4.9); Lymphocytes Percent Auto 30.1 % (20-40); Mean Corpuscular HGB Conc 29.8 g/dl (31.0-35.0); Mean Corpuscular Volume 66.9 fL (80.0-98.0); Mean Platelet Volume 9.6 fL (9.4-12.3); Monocytes Absolute Auto 0.6 X10*3/uL (0.1-1.2); Monocytes Percent Auto 7.6 % (2-11); Neutrophils Absolute Auto 4.5 x10*3/uL (2.0-8.3); Neutrophils Percent Auto 58.6 % (45-73); Platelet Count 452 X10*3/uL (160-400); Red Blood Count 5.96 X10*6/uL (4.20-5.50); Red Cell Distribution Width 18.7 % (11.0-16.0); White Blood Count 7.6 X10*3/uL (4.8-10.8)
[2023-01-30 17:37] LABS: Alanine Aminotransferase 20 U/L (0-31); Albumin Level 3.7 g/dL (3.5-5.0); Alkaline Phosphatase 83 U/L (39-117); Anion Gap 19 (12-20); Aspartate Amino Transferase 29 U/L (5-31); Bilirubin Total 0.3 mg/dL (0.0-1.0); Blood Urea Nitrogen 27 mg/dL (9-16); C Reactive Protein 0.85 mg/dL (< or = 0.50); Calcium 9.7 mg/dL (8.4-10.2); Carbon Dioxide 23 mmol/L (22-29); Chloride 102 mmol/L (96-108); Erythrocyte Sedimentation Rate 19 MM/HR (0-20); Estimated Glomerular Filt Rate > 60; Glucose Random 132 mg/dL (60-115); Magnesium 2.4 mg/dL (1.6-2.6); Potassium 4.5 mmol/L (3.3-5.1); Sodium 139 mmol/L (135-145); Total Protein 7.4 g/dL (6.5-8.0)
== END 2023-01-30 15:15 | disposition home or self-care (01) ==
LOC: HO.HHCL 15:14
PROVIDERS: Visit Provider Registered Nurse
DX: D50.9 Iron deficiency anemia, unspecified (principal); E11.621 Type 2 diabetes mellitus with foot ulcer; L97.509 Non-pressure chronic ulcer of other part of unspecified foot with unspecified severity; Z89.512 Acquired absence of left leg below knee; Z79.4 Long term (current) use of insulin
CPT/HCPCS: 36415; 80053; 83735; 85025; 85652; 86140

== ENCOUNTER 2023-02-05 14:38 | Outpatient (AMB) | payer OTHER, SELFPAY ==
--- NOTE | 2023-02-05 15:23 | A.OFFVIS_ITS ---
Intake Vital Signs 02/05/23 15:24 Height 5 ft Weight 173 lb BMI 33.8 BP 138/70 Blood Pressure Location Lt brachial Position Sitting Pulse 74 Pulse Source Pulse Oximeter Intake Visit Reasons: 2 month follow up Intake Note: 2 month f/u Real Estate Services Coordinator Required: No Allergies No Known Allergies Allergy (Verified 02/05/23 15:31) Medication List - Last Reconciled 02/05/23 by CLARENCE Almanzar amlodipine 10 mg PO DAILY aspirin 81 mg PO DAILY atorvastatin 80 mg PO BEDTIME blood sugar diagnostic (FreeStyle Lite Strips) As directed cholecalciferol (vitamin D3) 1 tab PO DAILY ezetimibe 10 mg PO DAILY folic acid 1 mg PO DAILY insulin glargine (Lantus Solostar U-100 Insulin) 40 units subcut DAILY isosorbide mononitrate ER 30 mg PO DAILY lancets (TRUEplus Lancets) As directed lisinopril 20 mg PO DAILY magnesium oxide 400 mg PO TID metformin 1 tab PO BID metoprolol succinate ER 50 mg See Protocol PO DAILY pantoprazole 40 mg PO BEDTIME pen needle, diabetic (UltiCare Pen Needle) As directed pioglitazone 15 mg PO DAILY HPI 2 month follow up HPI Details Mitra is a 57 yo female with PMH of HTN, DM,CKD, PVD, chronic anemia, SVT, abnormal nuclear stress test who was admitted to [facility], August 2022 with non healing diabetic foot ulcer, sepsis, who then underwent a left BKA. An outpt CTA of the coronary arteries was done showing moderate LAD and RCA stenosis. On last visit she declined cardiac catheterization. Her meds are being optimized. Today she reports she is feeling generally well. She was started on isosorbide last visit and tells me that the tightness she was getting in her chest has improved. She will feel periodic she sharp pains which are random. No exertional discomfort. She is mostly sedentary due to BKA however she is now using a prosthetic up to 3 hours a day. The remainder of the time she uses a wheelchair. She denies shortness of breath, dizziness, presyncope, syncope, PND, orthopnea. She reports getting some trace edema in her right lower extremity. She tells me she has gained weight since her BKA. She describes having some kind of abscess in her sinuses and is trying to get in to ENT for evaluation. She says her PCP has sent a referral however that office in [place] is telling her they have no appointments. I will give her the number of another ENT practice in [place] that she can call. She has been taking her medications as directed. Her daughter and granddaughter are present. [facility], [facility] Medical History (Updated 12/28/22 @ 08:54 by Rafael Hernandez MD) Acid reflux Anemia in chronic kidney disease (CKD) Arthritis Below-knee amputation of left lower extremity with complication Carpal tunnel syndrome Chronic ulcer of right foot Degenerative joint disease of spine Essential hypertension Hypertension Irritable bowel syndrome Leukocytosis Microcytic hypochromic anemia Obesity Osteomyelitis Osteoporosis PAD (peripheral artery disease) Peripheral neuropathy Peripheral vascular disease Prolapsed uterus Rectal prolapse Retinopathy Toe ulcer due to DM Surgical History H/O dilation and curettage Family History Maternal Grandmother Diabetes Maternal Grandfather Heart disease Cancer of unknown origin Mother HTN (hypertension) Paternal Uncle Thalassemia Social History Household Members: Children Household Members Other:: 4 Housing: Apartment Are you a primary home care music therapist to a significant other at home: No Do you presently have visiting nurse or other home services: No Unable to assess alcohol history related to: Unknown Alcohol intake: never Patient Tobacco Use Status: Never used Tobacco Second Hand Smoke Exposure: No service: No Current occupational status: disabled Female Reproductive History Menstrual Age of Menarche: 8 Review of Systems Const All systems reviewed & are unremarkable except as noted in HPI and below ENT Details: Headache, sinus pressure, bad taste in her mouth Reports dizziness Card Reports chest pain (Atypical, sharp pains), Denies chest pain at rest, Denies chest pain with activity, Denies rapid heart rate, Denies pedal edema, Denies edema, Denies leg edema, Denies lightheadedness, Denies palpitations, Denies dyspnea, Denies dyspnea on exertion and Denies orthopnea Resp Denies cough, Denies dyspnea and Denies dyspnea on exertion GI Denies hematochezia and Denies change in stool character Musc Denies abnormal gait, Reports limited range of motion, Reports muscle cramps, Denies muscle weakness, Denies numbness, Denies radiating pain into limb, Denies stiffness and Denies tingling Neuro Denies abnormal gait, Reports dizziness, Denies numbness and Denies tingling Endo Denies palpitations Physical Exam Vital Signs: Last Vital Signs Pulse 74 02/05/23 15:24 BP 138/70 02/05/23 15:24 BMI result Body Mass Index 33.8 Const General: cooperative, healthy appearing, comfortable and no acute distress Orientation/consciousness: patient oriented x3 Neck Neck: Yes normal visual inspection and Yes no JVD Resp Effort & Inspection: normal respiratory effort Auscultation: clear to auscultation bilaterally, no crackles, no rales, no rhonchi and no wheezes Cardio Jugular venous distension: no JVD Rate: regular rate Rhythm: regular rhythm Heart sounds: S1 normal heart sound present, S2 normal heart sound present, no gallops, no murmurs and no rubs GI Inspection: Yes normal to inspection Neuro General: patient oriented x3 Extrem Other: Left BKA, right ankle no edema Psych Appearance: grossly normal Mental Status: mental status grossly normal Speech and movement: Normal speech and movement present Assessment & Plan Assessment & Plan (1) Chest pain: Code(s): R07.9 - Chest pain, unspecified Qualifiers: Chest pain type: unspecified Qualified Code(s): R07.9 - Chest pain, unspecified Plan: Prior reports of chest discomfort, which sounded somewhat atypical. She did not have known CAD but does have cardiac risk factors of hypertension, hyperlipidemia, peripheral vascular disease and diabetes. A pharmacological nuclear stress test was done on 07/27/2022 and was equivocal for apical basal lateral ischemia. Then in August she was admitted with diabetic foot ulcer and sepsis and underwent the left BKA. A CTA of the coronary arteries was done on 09/07/2022 showing 70% stenosis of the mid LAD between the 2nd and 3rd diagonal, RCA dominant with mid 50-60% stenosis. On last visit cardiac catheterization was discussed and she declined. She was continued on medical management. Her amlodipine had previously been increased and on last visit isosorbide was added due to reports of chest tightness. She now tells me that she no longer has chest tightness but will get some sharp stabbing type pains that occur randomly. She continues to decline catheterization at present. She says she has been through a lot recently and does not want to have any procedures. Will continue on isosorbide, amlodipine and metoprolol XL. Continue aspirin 81 mg daily and atorvastatin 80 mg daily. Manito LDL goal less than 70. Following last visit she did have a lipid profile done on 11/20/2022 showing LDL 109. At that point her atorvastatin had been increased from 40 mg daily up to 80 mg daily. Signs and symptoms of angina reviewed with her. Emergency care if needed for symptoms. Cardiology follow-up in 3 months, sooner if needed. (2) SVT (supraventricular tachycardia): Code(s): I47.1 - Supraventricular tachycardia Plan: Episode of SVT noted [place] [facility] [place]. Narrow complex tachycardia with heart rate in the 170s. She was treated with adenosine with conversion back to sinus rhythm. She did not have recurrent SVT during the remainder of her admission. Echocardiogram 05/14/2022 showed EF 55-60%, normal RV, atrium size is normal. She was discharged with metoprolol XL. Holter monitor done on 07/27/2022 for 3 days showed sinus rhythm with average heart rate 87, PACs 2.25% of the time, short SVT runs, longest 6 beats. She was continued on her usual metoprolol and she did undergo a recurrent admission for nonhealing diabetic ulcer resulting in sepsis and osteomyelitis and eventual left BKA. Notes reviewed and no mention of SVT during that admission. Pulse is regular on examination today, rate 74. Continue current treatment. (3) Diabetes: Code(s): E11.9 - Type 2 diabetes mellitus without complications Plan: Hemoglobin A1c goal less than 7. Followed by her PCP (4) Anemia: Code(s): D64.9 - Anemia, unspecified Plan: History of chronic anemia. Has received transfusions in the past. Follows with Oncology/Hematology. Labs done on 01/30/2023 shows hematocrit 39.9 which is very good for her. In August her hematocrit was as low as 22.8. She denies any signs of bleeding. Coding Level of Care Code Est Pt Level 4 (82232) Diagnoses Chest pain R07.9 Chest pain type: unspecified SVT (supraventricular tachycardia) I47.1 Diabetes E11.9 Anemia D64.9 Time Spent (min) 28 Comment Chart review, documentation, interview, assess
[2023-02-05 15:24] VITALS: BP 138/70; PULSE 74; BMI 33.8
== END 2023-02-05 15:58 | disposition home or self-care (01) ==
PROVIDERS: Visit Provider Nurse Practitioner Family
DX: R07.9 Chest pain, unspecified (principal); I47.1 Supraventricular tachycardia; E11.9 Type 2 diabetes mellitus without complications; D64.9 Anemia, unspecified
CPT/HCPCS: 99214

== ENCOUNTER → 2023-02-05 14:38 | Outpatient (BNVA) | payer OTHER, SELFPAY | PROVIDERS: Visit Provider Nurse Practitioner Family | DX: R07.9 Chest pain, unspecified (principal); I47.1 Supraventricular tachycardia; E11.9 Type 2 diabetes mellitus without complications; D64.9 Anemia, unspecified | CPT/HCPCS: 99212 ==

== ENCOUNTER 2023-02-19 14:01 | Outpatient (AMB) | payer OTHER, SELFPAY ==
--- NOTE | 2023-02-19 14:47 | A.SPINEOV_ITS ---
Intake Intake Visit Reasons: low back pain Allergies No Known Allergies Allergy (Verified 02/05/23 15:31) Assessment & Plan Assessment & Plan (1) Cervicalgia: Code(s): M54.2 - Cervicalgia Plan Dear colleague, Thank you for referring Mitra to our office today. She is a pleasant 57-year-old female who comes in with a chief complaint of non-specific chronic low-grade low back pain, alongside newer onset (6 months) neck pain with radiation into her shoulder down the posterior aspect of her right arm, terminating in her wrist. She reports no numbness or tingling associated with this described pain radiation. She endorses a recent medical history of a left foot amputation in August which she believes was secondary to her diabetes. She does endorse that she began using her right upper extremity much more than prior to her amputation. She states that her neck/shoulder/arm pain is a 9/10 and constant, with exacerbation associated with increased movement of her right arm. She has tried Tylenol, ibuprofen, lidocaine patches, lidocaine gel, heat, ice, and rest without alleviation of her symptoms. She states that she is currently sent to physical therapy and went to her 1st intake appointment yesterday. PMH: Left foot amputation August 2022. Type 2 diabetes mellitus, peripheral artery disease, unspecified anemia, hypertension, fibromyalgia, unspecified disc disease, osteoarthritis. Social hx: Patient reports she does not smoke, endorses no substance use. Medications: Amlodipine, aspirin, atorvastatin, chlorthalidone, ezetimibe, folic acid, isosorbide, lisinopril, metformin, metoprolol, pantoprazole, pioglitzaone, vitamin D3. Allergies: NKDA Physical exam: The patient does not yet have prosthetic, and came to the office today in a wheelchair. She has not been able to ambulate since her amputation surgery per her report. Patient has 4/5 strength in her bilateral upper extremities (pain limiting), with decreased ability to engage her right deltoid when compared to the left. Reflexes 2+ and intact in bilateral upper extremities. Sensation equal and intact. (+) Spurling's (R sided radiation down arm), (-) Lhermitte. Imaging review: MRI lumbar spine reviewed and discussed with Dr. Holbrook, he recommended MRI cervical spine be completed to identify potential etiology of symptoms. Lumbar spine MRI does not provide much utility at this time. Impression: The patient is a 57-year-old female who comes in with a chief complaint of non-specific low-grade low back pain that has been chronic for the better part of the last decade. She states that her more pertinent concerned at this time is her neck pain, right shoulder pain, and right arm pain. She reports an acute onset with no specific inciting incident but associates her symptoms with her left foot amputation. She states that she began using right side of her body much more post amputation, and feels like she may have injured her right neck or shoulder. She reports exhausting all [id number] options, and is now attempting to find some kind of source for her symptoms. After discussing her case with Dr. Holbrook it was decided that she will need an MRI of her cervical spine, before we can adequately evaluate her symptoms and come up with a plan. She was asked to call the office for follow-up appointment after she completes her MRI here at [place]. In the meantime she was encouraged to continue going to physical therapy. Thank you for allowing us to care for your patient. The total time spent with this visit with this patient was 45 minutes reviewing history, physical exam, MRI imaging review, and implementation of treatment plan or further diagnostic testing Nick Holbrook MD,PhD [facility] Coding Level of Care Code New Pt Level 4 (47440) Diagnoses Cervicalgia M54.2 Time Spent (min) 45
== END 2023-02-19 15:10 | disposition home or self-care (01) ==
PROVIDERS: PCP Registered Nurse; Referring Provider Registered Nurse; Visit Provider Physician Assistant
DX: M54.2 Cervicalgia (principal)
CPT/HCPCS: 99204

== ENCOUNTER → 2023-02-19 14:01 | Outpatient (BNVA) | payer OTHER, SELFPAY | PROVIDERS: PCP Registered Nurse; Visit Provider Physician Assistant | DX: M54.2 Cervicalgia (principal); M54.50 Low back pain, unspecified | CPT/HCPCS: 99202 ==

== ENCOUNTER 2023-02-20 14:01 | Outpatient (REF) | payer OTHER, SELFPAY ==
[2023-02-20 15:55] LABS: MANUAL DIFF FLAG NO
[2023-02-20 16:14] LABS: Basophils Absolute Auto 0.1 X10*3/uL (0.0-0.2); Basophils Percent Auto 0.7 % (0-2); Eosinophils Absolute Auto 0.3 X10*3/uL (0.0-0.4); Eosinophils Percent Auto 3.2 % (0-4); Hematocrit 34.5 % (37.0-47.0); Hemoglobin 10.5 g/dl (12.0-16.0); Imm Gran Abs Auto 0.03 X10*3/uL (0.00-0.03); Imm Gran Pct Auto 0.3 % (0.0-0.4); Lymphocytes Absolute Auto 2.5 X10*3/uL (1.2-4.9); Lymphocytes Percent Auto 28.4 % (20-40); Mean Corpuscular HGB Conc 30.4 g/dl (31.0-35.0); Mean Corpuscular Hemoglobin 20.2 pg (27.0-33.0); Mean Corpuscular Volume 66.5 fL (80.0-98.0); Mean Platelet Volume 10.2 fL (9.4-12.3); Monocytes Absolute Auto 0.8 X10*3/uL (0.1-1.2); Monocytes Percent Auto 9.2 % (2-11); NRBC Pct Auto 0.8 /100WBC (0.0-0.2); Neutrophils Absolute Auto 5.1 x10*3/uL (2.0-8.3); Neutrophils Percent Auto 58.2 % (45-73); Platelet Count 413 X10*3/uL (160-400); Red Blood Count 5.19 X10*6/uL (4.20-5.50); Red Cell Distribution Width 18.5 % (11.0-16.0); White Blood Count 8.8 X10*3/uL (4.8-10.8)
[2023-02-20 16:41] LABS: Alanine Aminotransferase 24 U/L (0-31); Albumin Level 3.4 g/dL (3.5-5.0); Alkaline Phosphatase 81 U/L (39-117); Anion Gap 10 (12-20); Aspartate Amino Transferase 17 U/L (5-31); Bilirubin Total 0.3 mg/dL (0.0-1.0); Blood Urea Nitrogen 36 mg/dL (9-16); C Reactive Protein 0.16 mg/dL (< or = 0.50); Calcium 9.2 mg/dL (8.4-10.2); Carbon Dioxide 27 mmol/L (22-29); Chloride 106 mmol/L (96-108); Estimated Glomerular Filt Rate > 60; Glucose Random 138 mg/dL (60-115); Magnesium 2.2 mg/dL (1.6-2.6); Potassium 3.9 mmol/L (3.3-5.1); Sodium 139 mmol/L (135-145); Total Protein 6.6 g/dL (6.5-8.0)
[2023-02-20 17:05] LABS: Erythrocyte Sedimentation Rate 21 MM/HR (0-20)
== END 2023-02-20 14:02 | disposition home or self-care (01) ==
LOC: HO.HHCL 14:01
PROVIDERS: Visit Provider Registered Nurse
DX: E11.22 Type 2 diabetes mellitus with diabetic chronic kidney disease (principal); N18.32 Chronic kidney disease, stage 3b; Z79.4 Long term (current) use of insulin; Z89.512 Acquired absence of left leg below knee
CPT/HCPCS: 36415; 80053; 83735; 85025; 85652; 86140

== ENCOUNTER 2023-03-08 12:14 | Outpatient (REF) | payer OTHER, SELFPAY ==
[2023-03-08 13:17] LABS: MANUAL DIFF FLAG NO
[2023-03-08 13:38] LABS: Basophils Absolute Auto 0.1 X10*3/uL (0.0-0.2); Basophils Percent Auto 0.7 % (0-2); Eosinophils Absolute Auto 0.2 X10*3/uL (0.0-0.4); Eosinophils Percent Auto 2.4 % (0-4); Hematocrit 39.2 % (37.0-47.0); Hemoglobin 12.1 g/dl (12.0-16.0); Imm Gran Abs Auto 0.04 X10*3/uL (0.00-0.03); Imm Gran Pct Auto 0.5 % (0.0-0.4); Lymphocytes Absolute Auto 2.4 X10*3/uL (1.2-4.9); Lymphocytes Percent Auto 27.3 % (20-40); Mean Corpuscular HGB Conc 30.9 g/dl (31.0-35.0); Mean Corpuscular Hemoglobin 19.9 pg (27.0-33.0); Mean Corpuscular Volume 64.5 fL (80.0-98.0); Mean Platelet Volume 10.7 fL (9.4-12.3); Monocytes Absolute Auto 0.6 X10*3/uL (0.1-1.2); Monocytes Percent Auto 6.3 % (2-11); Neutrophils Absolute Auto 5.6 x10*3/uL (2.0-8.3); Neutrophils Percent Auto 62.8 % (45-73); Platelet Count 363 X10*3/uL (160-400); Red Blood Count 6.08 X10*6/uL (4.20-5.50); White Blood Count 8.9 X10*3/uL (4.8-10.8)
[2023-03-08 14:15] LABS: Erythrocyte Sedimentation Rate 25 MM/HR (0-20)
[2023-03-08 14:57] LABS: Alanine Aminotransferase 14 U/L (0-31); Albumin Level 3.6 g/dL (3.5-5.0); Alkaline Phosphatase 84 U/L (39-117); Anion Gap 18 (12-20); Aspartate Amino Transferase 17 U/L (5-31); Bilirubin Total 0.2 mg/dL (0.0-1.0); Blood Urea Nitrogen 50 mg/dL (9-16); C Reactive Protein < 0.10 mg/dL (< or = 0.50); Calcium 10.1 mg/dL (8.4-10.2); Carbon Dioxide 22 mmol/L (22-29); Chloride 105 mmol/L (96-108); Estimated Glomerular Filt Rate 54; Glucose Random 201 mg/dL (60-115); Magnesium 2.2 mg/dL (1.6-2.6); Potassium 3.9 mmol/L (3.3-5.1); Sodium 141 mmol/L (135-145); Total Protein 6.9 g/dL (6.5-8.0)
== END 2023-03-08 12:15 | disposition home or self-care (01) ==
LOC: HO.HHCL 12:14
PROVIDERS: Visit Provider Registered Nurse
DX: E11.22 Type 2 diabetes mellitus with diabetic chronic kidney disease (principal); N18.32 Chronic kidney disease, stage 3b; Z79.4 Long term (current) use of insulin; Z89.512 Acquired absence of left leg below knee
CPT/HCPCS: 36415; 80053; 83735; 85025; 85652; 86140

== ENCOUNTER 2023-03-27 11:32 | Outpatient (REF) | payer OTHER, SELFPAY ==
[2023-03-27 13:05] LABS: MANUAL DIFF FLAG NO
[2023-03-27 13:31] LABS: Basophils Percent Auto 0.4 % (0-2); Eosinophils Absolute Auto 0.2 X10*3/uL (0.0-0.4); Eosinophils Percent Auto 2.1 % (0-4); Hematocrit 36.5 % (37.0-47.0); Hemoglobin 11.1 g/dl (12.0-16.0); Imm Gran Abs Auto 0.04 X10*3/uL (0.00-0.03); Imm Gran Pct Auto 0.4 % (0.0-0.4); Lymphocytes Absolute Auto 3.2 X10*3/uL (1.2-4.9); Lymphocytes Percent Auto 33.8 % (20-40); Mean Corpuscular HGB Conc 30.4 g/dl (31.0-35.0); Mean Corpuscular Hemoglobin 19.4 pg (27.0-33.0); Mean Platelet Volume 10.4 fL (9.4-12.3); Monocytes Absolute Auto 0.7 X10*3/uL (0.1-1.2); Monocytes Percent Auto 7.5 % (2-11); Neutrophils Absolute Auto 5.2 x10*3/uL (2.0-8.3); Neutrophils Percent Auto 55.8 % (45-73); Platelet Count 403 X10*3/uL (160-400); Red Blood Count 5.71 X10*6/uL (4.20-5.50); Red Cell Distribution Width 16.7 % (11.0-16.0); White Blood Count 9.4 X10*3/uL (4.8-10.8)
[2023-03-27 13:37] LABS: Mean Corpuscular Volume 63.9 fL (80.0-98.0)
[2023-03-27 13:45] LABS: Alanine Aminotransferase 14 U/L (0-31); Albumin Level 3.6 g/dL (3.5-5.0); Alkaline Phosphatase 84 U/L (39-117); Anion Gap 12 (12-20); Aspartate Amino Transferase 16 U/L (5-31); Bilirubin Total 0.2 mg/dL (0.0-1.0); Blood Urea Nitrogen 35 mg/dL (9-16); C Reactive Protein 0.43 mg/dL (< or = 0.50); Calcium 10.2 mg/dL (8.4-10.2); Carbon Dioxide 29 mmol/L (22-29); Chloride 104 mmol/L (96-108); Estimated Glomerular Filt Rate > 60; Glucose Random 171 mg/dL (60-115); Magnesium 2.3 mg/dL (1.6-2.6); Potassium 4.2 mmol/L (3.3-5.1); Sodium 141 mmol/L (135-145); Total Protein 7.1 g/dL (6.5-8.0)
[2023-03-27 14:07] LABS: Erythrocyte Sedimentation Rate 32 MM/HR (0-20)
== END 2023-03-27 11:33 | disposition home or self-care (01) ==
LOC: HO.HHCL 11:32
PROVIDERS: Visit Provider Registered Nurse
DX: E11.22 Type 2 diabetes mellitus with diabetic chronic kidney disease (principal); N18.32 Chronic kidney disease, stage 3b; Z89.512 Acquired absence of left leg below knee; Z79.4 Long term (current) use of insulin
CPT/HCPCS: 36415; 80053; 83735; 85025; 85652; 86140

== ENCOUNTER 2023-04-12 11:51 | Outpatient (REF) | payer OTHER, SELFPAY | END 2023-04-12 11:52 | disposition home or self-care (01) | LOC: HO.CHCLDS 11:51 | PROVIDERS: Visit Provider Registered Nurse | DX: N18.32 Chronic kidney disease, stage 3b (principal) | CPT/HCPCS: 36415; 80053; 83735; 85025; 85652; 86140 ==

== ENCOUNTER 2023-04-29 09:47 | Outpatient (REF) | payer OTHER, SELFPAY ==
[2023-04-29 11:38] LABS: MANUAL DIFF FLAG NO
[2023-04-29 11:47] LABS: Basophils Absolute Auto 0.1 X10*3/uL (0.0-0.2); Basophils Percent Auto 0.6 % (0-2); Eosinophils Absolute Auto 0.2 X10*3/uL (0.0-0.4); Eosinophils Percent Auto 1.9 % (0-4); Hematocrit 28.5 % (37.0-47.0); Hemoglobin 8.8 g/dl (12.0-16.0); Imm Gran Abs Auto 0.05 X10*3/uL (0.00-0.03); Imm Gran Pct Auto 0.5 % (0.0-0.4); Lymphocytes Absolute Auto 2.9 X10*3/uL (1.2-4.9); Mean Corpuscular HGB Conc 30.9 g/dl (31.0-35.0); Mean Corpuscular Hemoglobin 19.6 pg (27.0-33.0); Mean Platelet Volume 10.6 fL (9.4-12.3); Monocytes Absolute Auto 0.9 X10*3/uL (0.1-1.2); Monocytes Percent Auto 9.1 % (2-11); Neutrophils Absolute Auto 6.1 x10*3/uL (2.0-8.3); Neutrophils Percent Auto 59.9 % (45-73); Platelet Count 450 X10*3/uL (160-400); Red Blood Count 4.48 X10*6/uL (4.20-5.50); White Blood Count 10.2 X10*3/uL (4.8-10.8)
[2023-04-29 12:00] LABS: Mean Corpuscular Volume 63.6 fL (80.0-98.0); NRBC Pct Auto 1.4 /100WBC (0.0-0.2)
[2023-04-29 12:06] LABS: Alanine Aminotransferase 16 U/L (0-31); Albumin Level 3.5 g/dL (3.5-5.0); Alkaline Phosphatase 81 U/L (39-117); Anion Gap 15 (12-20); Aspartate Amino Transferase 17 U/L (5-31); Bilirubin Total 0.3 mg/dL (0.0-1.0); Blood Urea Nitrogen 36 mg/dL (9-16); C Reactive Protein 0.35 mg/dL (< or = 0.50); Calcium 9.9 mg/dL (8.4-10.2); Carbon Dioxide 26 mmol/L (22-29); Chloride 102 mmol/L (96-108); Estimated Glomerular Filt Rate 58; Glucose Random 167 mg/dL (60-115); Potassium 3.9 mmol/L (3.3-5.1); Sodium 139 mmol/L (135-145); Total Protein 6.7 g/dL (6.5-8.0)
[2023-04-29 13:13] LABS: Erythrocyte Sedimentation Rate 50 MM/HR (0-20)
== END 2023-04-29 09:48 | disposition home or self-care (01) ==
LOC: HO.HHCL 09:47
PROVIDERS: Visit Provider Registered Nurse
DX: E11.22 Type 2 diabetes mellitus with diabetic chronic kidney disease (principal); N18.32 Chronic kidney disease, stage 3b; Z89.512 Acquired absence of left leg below knee; Z79.4 Long term (current) use of insulin
CPT/HCPCS: 36415; 80053; 83735; 85025; 85652; 86140

== ENCOUNTER 2023-05-21 14:29 | Outpatient (REF) | payer OTHER, MEDICAID, SELFPAY ==
[2023-05-21 15:35] LABS: MANUAL DIFF FLAG NO
[2023-05-21 15:56] LABS: INTERNATIONAL NORM RATIO 0.9 (0.9-1.1); Prothrombin Time 10.7 SEC (11.1-13.3)
[2023-05-21 16:08] LABS: Basophils Absolute Auto 0.1 X10*3/uL (0.0-0.2); Basophils Percent Auto 0.8 % (0-2); Eosinophils Absolute Auto 0.2 X10*3/uL (0.0-0.4); Eosinophils Percent Auto 2.2 % (0-4); Hematocrit 34.1 % (37.0-47.0); Imm Gran Abs Auto 0.05 X10*3/uL (0.00-0.03); Imm Gran Pct Auto 0.5 % (0.0-0.4); Lymphocytes Absolute Auto 2.5 X10*3/uL (1.2-4.9); Lymphocytes Percent Auto 27.9 % (20-40); Mean Corpuscular HGB Conc 29.3 g/dl (31.0-35.0); Mean Corpuscular Hemoglobin 19.6 pg (27.0-33.0); Mean Corpuscular Volume 66.9 fL (80.0-98.0); Mean Platelet Volume 10.7 fL (9.4-12.3); Monocytes Absolute Auto 0.7 X10*3/uL (0.1-1.2); Monocytes Percent Auto 7.4 % (2-11); Neutrophils Absolute Auto 5.6 x10*3/uL (2.0-8.3); Neutrophils Percent Auto 61.2 % (45-73); Platelet Count 474 X10*3/uL (160-400); White Blood Count 9.1 X10*3/uL (4.8-10.8)
[2023-05-21 16:38] LABS: Alanine Aminotransferase 13 U/L (0-31); Albumin Level 3.4 g/dL (3.5-5.0); Alkaline Phosphatase 85 U/L (39-117); Anion Gap 14 (12-20); Aspartate Amino Transferase 17 U/L (5-31); Bilirubin Total 0.2 mg/dL (0.0-1.0); Blood Urea Nitrogen 36 mg/dL (9-16); C Reactive Protein 0.14 mg/dL (< or = 0.50); Calcium 9.3 mg/dL (8.4-10.2); Carbon Dioxide 27 mmol/L (22-29); Chloride 103 mmol/L (96-108); Estimated Glomerular Filt Rate 47; Glucose Random 176 mg/dL (60-115); Potassium 4.4 mmol/L (3.3-5.1); Sodium 140 mmol/L (135-145); Total Protein 6.6 g/dL (6.5-8.0)
[2023-05-21 16:50] LABS: Erythrocyte Sedimentation Rate 34 MM/HR (0-20)
== END 2023-05-21 14:30 | disposition home or self-care (01) ==
LOC: HO.LAB 14:29
PROVIDERS: PCP Registered Nurse; Visit Provider Internal Medicine Cardiovascular Disease
DX: E11.22 Type 2 diabetes mellitus with diabetic chronic kidney disease (principal); N18.30 Chronic kidney disease, stage 3 unspecified; I20.89 Other forms of angina pectoris; Z79.4 Long term (current) use of insulin
CPT/HCPCS: 36415; 80053; 83735; 85025; 85027; 85610; 85652; 86140; 99212

== ENCOUNTER 2023-05-21 14:29 | Outpatient (AMB) | payer OTHER, SELFPAY ==
[2023-05-21 14:31] VITALS: BP 136/80; PULSE 62; BMI 36.6
--- NOTE | 2023-05-21 14:31 | MHC.OFFVIS ---
Intake Vital Signs 05/21/23 14:31 Height 5 ft Weight 187 lb 6.287 oz BMI 36.6 BP 136/80 Blood Pressure Location Lt brachial Position Sitting Pulse 62 Intake Visit Reasons: f/up per DC Intake Note: Follow-up c/o chest pain stabbing with sob sometimes heart rate fast or very slow Allergies No Known Allergies Allergy (Verified 03/12/23 09:20) Medication List - Last Reconciled 05/21/23 by Hayes Middleton MD amlodipine 10 mg PO QAM aspirin 81 mg PO DAILY atorvastatin 80 mg PO BEDTIME blood sugar diagnostic (FreeStyle Lite Strips) As directed cholecalciferol (vitamin D3) 1 tab PO DAILY ezetimibe 10 mg PO DAILY folic acid 1 mg PO DAILY insulin glargine (Lantus Solostar U-100 Insulin) 40 units subcut DAILY isosorbide mononitrate ER 30 mg PO DAILY lancets (TRUEplus Lancets) As directed lisinopril 20 mg PO DAILY magnesium oxide 400 mg PO TID metformin 1 tab PO BID metoprolol succinate ER 50 mg See Protocol PO DAILY pantoprazole 40 mg PO BEDTIME pen needle, diabetic (UltiCare Pen Needle) As directed pioglitazone 15 mg PO DAILY HPI HPI Comments History of Present Illness Details Mitra comes for follow-up. She says since the weather has become ?she intermittently gets episode of chest tightness which last for 5 minutes. Did not clearly exertional in nature. She does not exert herself much. She takes all her medications. She denies any palpitations. No other heart failure symptoms. [facility] Medical History Below-knee amputation of left lower extremity with complication Essential hypertension Obesity Chronic ulcer of right foot Peripheral vascular disease Anemia in chronic kidney disease (CKD) Acid reflux Osteomyelitis Leukocytosis Microcytic hypochromic anemia Irritable bowel syndrome Rectal prolapse Prolapsed uterus Carpal tunnel syndrome Peripheral neuropathy Retinopathy Osteoporosis Degenerative joint disease of spine PAD (peripheral artery disease) Toe ulcer due to DM Hypertension Arthritis Surgical History S/P below knee amputation H/O dilation and curettage Family History Maternal Grandmother Diabetes Maternal Grandfather Heart disease Cancer of unknown origin Mother HTN (hypertension) Paternal Uncle Thalassemia Social History Household Members: Children Household Members Other:: 4 Housing: Apartment Are you a primary child care associate teacher to a significant other at home: No Do you presently have visiting nurse or other home services: No Unable to assess alcohol history related to: Unknown Alcohol intake: never Patient Tobacco Use Status: Never used Tobacco Second Hand Smoke Exposure: No service: No Current occupational status: disabled Female Reproductive History Menstrual Age of Menarche: 8 Review of Systems Const Denies chills, Denies fatigue, Denies fever(s), Denies frequent falls, Denies weakness, Denies weight gain and Denies weight loss ENT Denies dizziness Card Denies chest pain, Denies leg edema, Denies lightheadedness, Denies palpitations, Denies dyspnea, Denies dyspnea on exertion, Denies orthopnea and Denies other (loss of consciousness) Resp Denies cough, Denies dyspnea and Denies dyspnea on exertion GI Denies hematochezia and Denies change in stool character Musc Denies abnormal gait, Denies muscle weakness, Denies numbness, Denies radiating pain into limb and Denies tingling Neuro Denies abnormal gait, Denies dizziness, Denies frequent falls, Denies numbness, Denies tingling and Denies weakness Endo Denies fatigue and Denies palpitations Physical Exam Vital Signs: Last Vital Signs Pulse 62 05/21/23 14:31 BP 136/80 05/21/23 14:31 BMI result Body Mass Index 36.6 Const General: cooperative, healthy appearing, comfortable and no acute distress Orientation/consciousness: patient oriented x3 Neck Neck: Yes normal visual inspection and Yes no JVD Resp Effort & Inspection: normal respiratory effort Auscultation: clear to auscultation bilaterally, no crackles, no rales, no rhonchi and no wheezes Cardio Jugular venous distension: no JVD Rate: regular rate Rhythm: regular rhythm Heart sounds: S1 normal heart sound present, S2 normal heart sound present, no gallops, no murmurs and no rubs GI Inspection: Yes normal to inspection Neuro General: patient oriented x3 Extrem Other: Left BKA, right ankle no edema Psych Appearance: grossly normal Mental Status: mental status grossly normal Speech and movement: Normal speech and movement present Assessment & Plan Assessment & Plan (1) Atypical angina: Code(s): I20.89 - Other forms of angina pectoris Plan: Atypical chest discomfort suggestive anginal although induced by cold weather. She is currently on triple antianginal therapy including amlodipine, isosorbide and metoprolol. She does have disease in the LAD which could explain symptoms in combination with vasospastic disease. I thing further evaluation with cardiac catheterization is recommended. We discuss the need for cardiac catheterization including risk, benefits, alternatives. She understands agrees. Will be scheduled in near future. Meanwhile will increase isosorbide to 60 mg daily. Possibility that the symptoms are not related to her coronary artery disease and alternatives if her cardiac catheterization shows nonobstructive disease will be pursued. She was concerned about needing dual antiplatelet therapy especially Plavix because she had side effects to it. We discuss that if she ends up getting percutaneous intervention then she would be on aspirin and Brilinta. Continue aggressive risk factor modification. Blood pressure is currently well optimized. Target goal LDL closer to 60 mg/dL. Will follow up in the clinic after cardiac catheterization. Thank you for allowing me to partake in her care Orders: Orders Cardiac Cath LT w PCI 2 Weeks I20.89 - Other forms of angina pectoris Basic Metabolic Panel Today I20.89 - Other forms of angina pectoris Complete Blood Count no Diff Today I20.89 - Other forms of angina pectoris Prothrombin Time INR Today I20.89 - Other forms of angina pectoris Medications: New isosorbide mononitrate ER 60 mg PO DAILY 30 tabs 2RF I20.89 - Other forms of angina pectoris Discontinued isosorbide mononitrate ER Discontinued Reason: Doctor's Order 30 mg PO DAILY 90 tabs 2RF Coding Level of Care Code Est Pt Level 4 (92386) Diagnoses Atypical angina I20.89
== END 2023-05-21 15:19 | disposition home or self-care (01) ==
PROVIDERS: PCP Registered Nurse; Visit Provider Internal Medicine Cardiovascular Disease
DX: I20.89 Other forms of angina pectoris (principal)
CPT/HCPCS: 99214

== ENCOUNTER 2023-08-06 07:59 | Outpatient (REF) | payer OTHER, SELFPAY ==
[2023-08-06 08:23] LABS: MANUAL DIFF FLAG NO
[2023-08-06 08:33] LABS: Basophils Absolute Auto 0.1 X10*3/uL (0.0-0.2); Basophils Percent Auto 0.6 % (0-2); Eosinophils Absolute Auto 0.2 X10*3/uL (0.0-0.4); Eosinophils Percent Auto 2.1 % (0-4); Hematocrit 34.2 % (37.0-47.0); Hemoglobin 10.3 g/dl (12.0-16.0); Imm Gran Abs Auto 0.03 X10*3/uL (0.00-0.03); Imm Gran Pct Auto 0.3 % (0.0-0.4); Lymphocytes Absolute Auto 2.5 X10*3/uL (1.2-4.9); Lymphocytes Percent Auto 29.2 % (20-40); Mean Corpuscular HGB Conc 30.1 g/dl (31.0-35.0); Mean Platelet Volume 9.9 fL (9.4-12.3); Monocytes Absolute Auto 0.6 X10*3/uL (0.1-1.2); Monocytes Percent Auto 6.8 % (2-11); Neutrophils Absolute Auto 5.3 x10*3/uL (2.0-8.3); Platelet Count 346 X10*3/uL (160-400); Red Blood Count 5.41 X10*6/uL (4.20-5.50); Red Cell Distribution Width 15.9 % (11.0-16.0); White Blood Count 8.6 X10*3/uL (4.8-10.8)
[2023-08-06 08:34] LABS: Mean Corpuscular Volume 63.2 fL (80.0-98.0)
[2023-08-06 09:05] LABS: Alanine Aminotransferase 12 U/L (0-31); Albumin Level 3.4 g/dL (3.5-5.0); Alkaline Phosphatase 95 U/L (39-117); Anion Gap 13 (12-20); Aspartate Amino Transferase 16 U/L (5-31); Bilirubin Total 0.3 mg/dL (0.0-1.0); Blood Urea Nitrogen 20 mg/dL (9-16); C Reactive Protein 0.64 mg/dL (< or = 0.50); Carbon Dioxide 27 mmol/L (22-29); Chloride 101 mmol/L (96-108); Estimated Glomerular Filt Rate 48; Glucose Random 312 mg/dL (60-115); Magnesium 1.7 mg/dL (1.6-2.6); Potassium 4.3 mmol/L (3.3-5.1); Sodium 137 mmol/L (135-145); Total Protein 6.8 g/dL (6.5-8.0)
[2023-08-06 09:21] LABS: Erythrocyte Sedimentation Rate 53 MM/HR (0-20)
== END 2023-08-06 08:00 | disposition home or self-care (01) ==
LOC: HO.LAB 07:59
PROVIDERS: PCP Registered Nurse; Visit Provider Registered Nurse
DX: E11.22 Type 2 diabetes mellitus with diabetic chronic kidney disease (principal); N18.30 Chronic kidney disease, stage 3 unspecified; Z79.4 Long term (current) use of insulin; M79.7 Fibromyalgia
CPT/HCPCS: 36415; 80053; 83735; 85025; 85652; 86140

== ENCOUNTER 2023-08-07 10:07 | Outpatient (REF) | payer OTHER, SELFPAY ==
--- NOTE | ~2023-08-07 | MR_ITS ---
EXAMINATION: MR CERVICAL SPINE WITHOUT CONTRAST CLINICAL INFORMATION: Cervicalgia COMPARISON: None TECHNIQUE: MRI of the cervical spine was obtained using routine sequences without contrast. FINDINGS: The craniocervical junction is intact. Sagittal alignment is maintained. There is no significant spondylolisthesis. Vertebral body heights are normal without acute compression fracture. No suspicious osseous lesion. Intraosseous hemangioma in the C7 vertebral body. The intervertebral disc space heights are preserved. Small central disc protrusions at C2-C3 and C5-C6. No spinal canal or neural foraminal stenosis at any level. The cervical spinal cord is normal in signal and morphology. No epidural fluid collection, mass, or hematoma. No significant abnormalities of the paraspinal musculature. The flow voids of the major cervical vessels are maintained. The visualized intracranial structures are normal. No demonstrated abnormalities in the visualized neck. MR/MR cervical spine wo con IMPRESSION: Unremarkable cervical spine MRI.
== END 2023-08-07 10:08 | disposition home or self-care (01) ==
LOC: HO.MRI 10:07
PROVIDERS: PCP Registered Nurse; Visit Provider Physician Assistant
DX: M54.2 Cervicalgia (principal)
CPT/HCPCS: 72141

== ENCOUNTER 2023-08-29 10:42 | Outpatient (REF) | payer OTHER, SELFPAY ==
[2023-08-29 10:56] LABS: MANUAL DIFF FLAG NO
[2023-08-29 11:40] LABS: Basophils Absolute Auto 0.1 X10*3/uL (0.0-0.2); Basophils Percent Auto 0.7 % (0-2); Eosinophils Absolute Auto 0.2 X10*3/uL (0.0-0.4); Eosinophils Percent Auto 2.7 % (0-4); Hematocrit 29.5 % (37.0-47.0); Hemoglobin 8.8 g/dl (12.0-16.0); Imm Gran Abs Auto 0.06 X10*3/uL (0.00-0.03); Imm Gran Pct Auto 0.7 % (0.0-0.4); Lymphocytes Absolute Auto 2.1 X10*3/uL (1.2-4.9); Lymphocytes Percent Auto 24.1 % (20-40); Mean Corpuscular HGB Conc 29.8 g/dl (31.0-35.0); Mean Platelet Volume 10.9 fL (9.4-12.3); Monocytes Absolute Auto 0.7 X10*3/uL (0.1-1.2); Monocytes Percent Auto 7.7 % (2-11); Neutrophils Absolute Auto 5.6 x10*3/uL (2.0-8.3); Neutrophils Percent Auto 64.1 % (45-73); Platelet Count 406 X10*3/uL (160-400); Red Blood Count 4.63 X10*6/uL (4.20-5.50); White Blood Count 8.8 X10*3/uL (4.8-10.8)
[2023-08-29 11:41] LABS: Mean Corpuscular Volume 63.7 fL (80.0-98.0)
[2023-08-29 11:45] LABS: INTERNATIONAL NORM RATIO 0.9 (0.9-1.1); Prothrombin Time 10.9 SEC (11.1-13.3)
[2023-08-29 12:16] LABS: Alanine Aminotransferase 13 U/L (0-31); Albumin Level 3.2 g/dL (3.5-5.0); Alkaline Phosphatase 96 U/L (39-117); Anion Gap 13 (12-20); Aspartate Amino Transferase 14 U/L (5-31); Bilirubin Total 0.2 mg/dL (0.0-1.0); Blood Urea Nitrogen 29 mg/dL (9-16); C Reactive Protein 0.59 mg/dL (< or = 0.50); Carbon Dioxide 26 mmol/L (22-29); Chloride 103 mmol/L (96-108); Estimated Glomerular Filt Rate 54; Glucose Random 314 mg/dL (60-115); Magnesium 1.9 mg/dL (1.6-2.6); Potassium 3.9 mmol/L (3.3-5.1); Sodium 138 mmol/L (135-145); Total Protein 6.3 g/dL (6.5-8.0)
[2023-08-29 12:29] LABS: Erythrocyte Sedimentation Rate 55 MM/HR (0-20)
== END 2023-08-29 10:43 | disposition home or self-care (01) ==
LOC: HO.LAB 10:42
PROVIDERS: PCP Registered Nurse; Visit Provider Registered Nurse
DX: E11.22 Type 2 diabetes mellitus with diabetic chronic kidney disease (principal); N18.30 Chronic kidney disease, stage 3 unspecified; M79.10 Myalgia, unspecified site; Z79.4 Long term (current) use of insulin
CPT/HCPCS: 36415; 80053; 83735; 85025; 85610; 85652; 86140

== ENCOUNTER 2023-09-10 08:29 | Outpatient (REF) | payer OTHER, SELFPAY ==
[2023-09-10 09:40] LABS: MANUAL DIFF FLAG NO
[2023-09-10 10:05] LABS: Basophils Absolute Auto 0.1 X10*3/uL (0.0-0.2); Basophils Percent Auto 0.6 % (0-2); Eosinophils Absolute Auto 0.3 X10*3/uL (0.0-0.4); Eosinophils Percent Auto 3.3 % (0-4); Hematocrit 27.3 % (37.0-47.0); Hemoglobin 8.3 g/dl (12.0-16.0); Imm Gran Abs Auto 0.04 X10*3/uL (0.00-0.03); Imm Gran Pct Auto 0.5 % (0.0-0.4); Lymphocytes Absolute Auto 2.2 X10*3/uL (1.2-4.9); Mean Corpuscular HGB Conc 30.4 g/dl (31.0-35.0); Mean Corpuscular Hemoglobin 19.5 pg (27.0-33.0); Mean Platelet Volume 10.2 fL (9.4-12.3); Monocytes Absolute Auto 0.7 X10*3/uL (0.1-1.2); Monocytes Percent Auto 8.2 % (2-11); Neutrophils Absolute Auto 5.1 x10*3/uL (2.0-8.3); Neutrophils Percent Auto 61.4 % (45-73); Platelet Count 379 X10*3/uL (160-400); Red Blood Count 4.25 X10*6/uL (4.20-5.50); Red Cell Distribution Width 18.5 % (11.0-16.0); White Blood Count 8.3 X10*3/uL (4.8-10.8)
[2023-09-10 10:06] LABS: Mean Corpuscular Volume 64.2 fL (80.0-98.0)
[2023-09-10 10:14] LABS: Prothrombin Time 11.6 SEC (11.1-13.3)
[2023-09-10 10:34] LABS: Alanine Aminotransferase 16 U/L (0-31); Albumin Level 3.1 g/dL (3.5-5.0); Alkaline Phosphatase 99 U/L (39-117); Anion Gap 12 (12-20); Aspartate Amino Transferase 16 U/L (5-31); Bilirubin Total 0.2 mg/dL (0.0-1.0); Blood Urea Nitrogen 23 mg/dL (9-16); C Reactive Protein 0.66 mg/dL (< or = 0.50); Carbon Dioxide 27 mmol/L (22-29); Chloride 104 mmol/L (96-108); Cholesterol 293 mg/dL (<200); Estimated Glomerular Filt Rate 48; Glucose Random 313 mg/dL (60-115); HDL Cholesterol 33 mg/dL (>40); LDL Cholesterol Calculated 216 mg/dL (<100); Magnesium 1.8 mg/dL (1.6-2.6); Potassium 3.6 mmol/L (3.3-5.1); Sodium 139 mmol/L (135-145); Triglycerides 224 mg/dL (<150)
[2023-09-10 10:36] LABS: B Type Natriuretic Peptide 746 pg/mL (<100)
[2023-09-10 10:43] LABS: Erythrocyte Sedimentation Rate 49 MM/HR (0-20)
[2023-09-10 10:53] LABS: TSH reflex Free T4 2.52 uIU/mL (0.32-4.0)
== END 2023-09-10 08:30 | disposition home or self-care (01) ==
LOC: HO.LAB 08:29
PROVIDERS: PCP Registered Nurse; Visit Provider Nurse Practitioner Family
DX: R60.9 Edema, unspecified (principal); R63.5 Abnormal weight gain; I25.10 Atherosclerotic heart disease of native coronary artery without angina pectoris; E11.22 Type 2 diabetes mellitus with diabetic chronic kidney disease; N18.30 Chronic kidney disease, stage 3 unspecified; M79.10 Myalgia, unspecified site; Z79.4 Long term (current) use of insulin
CPT/HCPCS: 36415; 80053; 80061; 83735; 83880; 84443; 85025; 85610; 85652; 86140; 99212

== ENCOUNTER 2023-09-10 08:29 | Outpatient (AMB) | payer OTHER, SELFPAY ==
[2023-09-10 08:32] VITALS: BP 160/72; PULSE 83; BMI 39.4
--- NOTE | 2023-09-10 08:32 | A.OFFVIS_ITS ---
Intake Vital Signs 09/10/23 08:32 Height 5 ft Weight 202 lb BMI 39.4 BP 160/72 H Blood Pressure Location Lt brachial Position Sitting Pulse 83 Pulse Source Pulse Oximeter Intake Visit Reasons: swollen legs Director Of Strategy & Mobile Required: No Fish Hatchery Superintendent: Fish Hatchery Superintendent Present Allergies No Known Allergies Allergy (Verified 09/10/23 08:34) Medication List - Last Reconciled 09/10/23 by CLARENCE Almanzar amlodipine 10 mg PO QAM aspirin 81 mg PO DAILY atorvastatin 80 mg PO BEDTIME blood sugar diagnostic (FreeStyle Lite Strips) As directed cholecalciferol (vitamin D3) 1 tab PO DAILY ezetimibe 10 mg PO DAILY folic acid 1 mg PO DAILY insulin glargine (Lantus Solostar U-100 Insulin) 40 units subcut DAILY isosorbide mononitrate ER 60 mg PO DAILY lancets (TRUEplus Lancets) As directed lisinopril 20 mg PO DAILY magnesium oxide 400 mg PO TID metformin 1 tab PO BID metoprolol succinate ER 50 mg See Protocol PO DAILY pantoprazole 40 mg PO BEDTIME pen needle, diabetic (UltiCare Pen Needle) As directed pioglitazone 15 mg PO DAILY HPI swollen legs 2 HPI Details Mitra is a 58 yo female with PMH of HTN, DM,CKD, PVD, chronic anemia, SVT, abnormal nuclear stress test who was admitted to [facility], August 2022 with non healing diabetic foot ulcer, sepsis, who then underwent a left BKA. An outpt CTA of the coronary arteries was done showing moderate LAD and RCA stenosis. On last visit she was to be set up for a cardiac catheterization which she then cancel the appointment. She called our office a few days ago with report of edema in presents for follow-up. Today she reports that she has been having swelling in her legs for the last few weeks. She is unable to put her prosthetic on. She has gained weight but is unsure how much. She does have intermittent squeezing discomfort in her chest that lasts a few minutes and occurs randomly. This symptom has not worsened in the last several months. She has some shortness of breath with exertion which is not new. No PND, orthopnea, lightheadedness, presyncope, syncope, falls. She has been taking her medications as directed. She has an appointment with Nephrology tomorrow. PENDING SALE TO [facility] Medical History Below-knee amputation of left lower extremity with complication Essential hypertension Obesity Chronic ulcer of right foot Peripheral vascular disease Anemia in chronic kidney disease (CKD) Acid reflux Osteomyelitis Leukocytosis Microcytic hypochromic anemia Irritable bowel syndrome Rectal prolapse Prolapsed uterus Carpal tunnel syndrome Peripheral neuropathy Retinopathy Osteoporosis Degenerative joint disease of spine PAD (peripheral artery disease) Toe ulcer due to DM Hypertension Arthritis Surgical History S/P below knee amputation H/O dilation and curettage Family History Maternal Grandmother Diabetes Maternal Grandfather Heart disease Cancer of unknown origin Mother HTN (hypertension) Paternal Uncle Thalassemia Social History Household Members: Children Household Members Other:: 4 Housing: Apartment Are you a primary customer care consultant to a significant other at home: No Do you presently have visiting nurse or other home services: No Unable to assess alcohol history related to: Unknown Alcohol intake: never Comment: pt refusing red socks and bed alarm Patient Tobacco Use Status: Never used Tobacco Second Hand Smoke Exposure: No service: No Current occupational status: disabled Female Reproductive History Menstrual Age of Menarche: 8 Review of Systems Const Details: Leg edema All systems reviewed & are unremarkable except as noted in HPI and below Reports weight gain ENT Denies dizziness Card Denies chest pain, Denies chest pain at rest, Denies chest pain with activity, Denies rapid heart rate, Denies pedal edema, Denies edema, Denies leg edema, Denies lightheadedness, Denies palpitations, Denies dyspnea, Denies dyspnea on exertion and Denies orthopnea Resp Denies cough, Denies dyspnea and Denies dyspnea on exertion GI Denies hematochezia and Denies change in stool character Musc Details: Left BKA Reports abnormal gait, Reports limited range of motion, Denies muscle cramps, Denies muscle weakness, Denies numbness, Denies radiating pain into limb, Denies stiffness and Denies tingling Neuro Reports abnormal gait, Denies dizziness, Denies numbness and Denies tingling Endo Denies palpitations Physical Exam Vital Signs: Last Vital Signs Pulse 83 09/10/23 08:32 BP 160/72 H 09/10/23 08:32 BMI result Body Mass Index 39.4 Const General: cooperative, healthy appearing, comfortable and no acute distress Orientation/consciousness: patient oriented x3 Neck Neck: Yes normal visual inspection and Yes no JVD Resp Effort & Inspection: normal respiratory effort Auscultation: clear to auscultation bilaterally, no crackles, no rales, no rhonchi and no wheezes Cardio Jugular venous distension: no JVD Rate: regular rate Rhythm: regular rhythm Heart sounds: S1 normal heart sound present, S2 normal heart sound present, no gallops, no murmurs and no rubs GI Inspection: Yes normal to inspection Neuro General: patient oriented x3 Extrem Other: Left BKA, nonpitting edema in each leg. Psych Appearance: grossly normal Mental Status: mental status grossly normal Speech and movement: Normal speech and movement present Assessment & Plan Assessment & Plan (1) Weight gain: Code(s): R63.5 - Abnormal weight gain Plan: Patient presents with report of leg edema and weight gain. She is gained 15 lb since her last visit in May. She is active through the day but is not walking currently as she is not able to put her prosthetic on. She is sitting in a wheelchair much of the time. On exam she does have nonpitting edema in her lower right extremity. She tells me that her left BKA is swollen as well. She does report some shortness of breath with exertion. On exam lungs are clear.. Will check labs today including BNP, CMP and TSH.- labs were available prior to completion of this note showing BNP elevated at 746 which is high for her, creatinine 1.16, GFR 48, TSH normal. She has an appointment with Nephrology tomorrow. Her blood pressure is elevated today at 160/72. Recheck done by me after sitting for 10 minutes was essentially unchanged. I am considering: with her edema to decrease amlodipine down to 5 mg daily and start on Lasix 20 mg daily, and increasing lisinopril. She has an appointment with Dr. Wetzel, Nephrology, tomorrow.. Will forward this note to him for his review prior to her visit. If he is in agreement to these medication changes they can be done accordingly. Plan to reach out to her in a few days to reassess plan of care. Cardiology follow-up in our office 2-3 months, sooner if needed (2) Edema: Code(s): R60.9 - Edema, unspecified Plan: As above (3) Chest pain: Code(s): R07.9 - Chest pain, unspecified Qualifiers: Chest pain type: unspecified Qualified Code(s): R07.9 - Chest pain, unspecified Plan: Prior reports of chest discomfort, which sounded somewhat atypical. She did not have known CAD but does have cardiac risk factors of hypertension, hyperlipidemia, peripheral vascular disease and diabetes. A pharmacological nuclear stress test was done on 07/27/2022 and was equivocal for apical basal lateral ischemia. A CTA of the coronary arteries was done on 09/07/2022 showing 70% stenosis of the mid LAD between the 2nd and 3rd diagonal, RCA dominant with mid 50-60% stenosis. She would previously declined cardiac catheterization and agreed to proceed following last visit. An appointment was set up and she did cancel it. Today she tells me she is not going through with cardiac catheterization as she does not want to stent nor does she want to be on Plavix or Brilinta as she does have issues with anemia. She will get a periodic squeezing sensation in her chest that lasts few minutes and resolves. It is not clearly brought on by exertion. Will continue on isosorbide, amlodipine and metoprolol XL. Continue aspirin 81 mg daily and atorvastatin 80 mg daily. [place] LDL goal less than 70. Following last visit she did have a lipid profile done today showing LDL 216. Will need to call her to reassess compliance with her medications. Signs and symptoms of angina reviewed with her. Emergency care if needed for symptoms. (4) SVT (supraventricular tachycardia): Code(s): I47.1 - Supraventricular tachycardia Plan: Episode of SVT noted during [facility] admission 05/2022. Narrow complex tachycardia with heart rate in the 170s. She was treated with adenosine with conversion back to sinus rhythm. She did not have recurrent SVT during the remainder of her admission. Echocardiogram 05/14/2022 showed EF 55-60%, normal RV, atrium size is normal. She was discharged with metoprolol XL. Holter monitor done on 07/27/2022 for 3 days showed sinus rhythm with average heart rate 87, PACs 2.25% of the time, short SVT runs, longest 6 beats. She was continued on her usual metoprolol and she did undergo a recurrent admission for nonhealing diabetic ulcer resulting in sepsis and osteomyelitis and eventual left BKA. Notes reviewed and no mention of SVT during that admission. Pulse is regular on examination today, rate 83. Continue current treatment. (5) Diabetes: Code(s): E11.9 - Type 2 diabetes mellitus without complications Plan: Hemoglobin A1c goal less than 7. Followed by her PCP (6) Anemia: Code(s): D64.9 - Anemia, unspecified Plan: History of chronic anemia. Has received transfusions in the past. Follows with Oncology/Hematology. Labs done today shows hematocrit 27.3. Followed by her PCP . She denies any signs of bleeding. Plan Time spent on chart review, documentation, interview, assessment, MD communication Orders: Orders B Type Natriuretic Peptide Today R60.9 - Edema, unspecified TSH reflex Free T4 Today R63.5 - Abnormal weight gain Coding Level of Care Code Est Pt Level 4 (18137) Diagnoses Weight gain R63.5 Edema R60.9 Chest pain R07.9 Chest pain type: unspecified SVT (supraventricular tachycardia) I47.1 Diabetes E11.9 Anemia D64.9 Time Spent (min) 35
== END 2023-09-10 09:02 | disposition home or self-care (01) ==
PROVIDERS: PCP Registered Nurse; Visit Provider Nurse Practitioner Family
DX: R63.5 Abnormal weight gain (principal); R60.9 Edema, unspecified; R07.9 Chest pain, unspecified; I47.10 Supraventricular tachycardia, unspecified; E11.9 Type 2 diabetes mellitus without complications; D64.9 Anemia, unspecified
CPT/HCPCS: 99214

== ENCOUNTER 2023-09-19 10:00 | Outpatient (RCR) | payer OTHER, SELFPAY ==
--- NOTE | 2023-08-06 13:29 | MHC.PT.EP ---
[facility] [place] Office [place] Office [place] Office [address] Dawna Leslie [address] [phone] F: [phone] F: [phone] F: [phone] F: [phone] Physical Therapy Plan of Care Date of Evaluation: 08/06/23 Date of Surgery: Diagnosis: BACK AND HIP PAIN Assessment: 58 YO FEMALE REF TO PT W PROGRESSIVE LBP AND KARINA HIP PAIN- WHICH HAS INCREASED S/P LEFT BK AMPUTATION IN AUG 2022. THE Pt RESIDES IN A 4TH FLOOR [address] OF HER 11 CHILDREN. SHE HAS A CANE, W/WALKER, WC, AND TRANSPORT CHAIR-> AND DUE TO COMPLICATIONS, THE Pt FEELS SHE DID NOT RECEIVE ADEQUATE PT/OT FOR PROSTHETIC TRAINING. SHE HAS GENERALIZED WEAKNESS , ESPEC IN LUMBOPELVIC AND PROX LEs, DECR HIP AND KNEE EXT, PELVIC ASYMM, AND MULTIPLE AREAS OF PAIN. WOULD BENEFIT FROM OUT-Pt PT TO ADDRESS THE ABOVE FINDINGS AND ASSIST Pt IN REGAINING FUNCTIONAL MOB/ INDEPENDENCE. Frequency and Duration: The patient will be seen 2 x WK x 8 WKS Short Term Goals: *ASSESS HIP MMT AND ROM *DECREASE LBP IMPROVE HIP FLEXOR MOBILITY *INITIATE HEP -> LUMBOPELVIC STABILITY *Pt DEMON INDEP DONNING Lt BK PROSTHESIS *INCREASE LEs STRENGTH [employer] Goals: *THE Pt DEMON EFFICIENT GAIT MECH ON LEVEL GROUND AND STAIRS W HER CANE x 150' (W Lt BK PROSTHESIS) *INDEP HEP *HIP STRENGTH IMPROVED BY AT LEAST 1 GRADE * WFL AROM KARINA HIP EXTENSION, KNEE EXT Treatment Plan: Modalities to reduce pain, spasms and effusion. Manual therapy to restore motion and function. Therapeutic exercise to improve strength and flexibility. Neuromuscular re-education for posture and balance. Therapeutic activities to return to functional activities of daily living. Electronically signed by: PAYAM COHN,PT Please sign and return to therapist. Thank you for your referral.
--- NOTE | 2023-10-14 07:24 | MHC.PT.DC ---
[facility] [place] Office [place] Office [place] Office [address] Dawna Leslie [address] [phone] F: [phone] F: [phone] F: [phone] F: [phone] Physical Therapy Discharge Report Diagnosis: BACK AND HIP PAIN Date of Surgery: Date of Evaluation: 08/06/23 Date of Discharge: 10/14/23 Treatments to Date: 9 Cancellations to Date: 8 No Shows to Date: 1 Discharge Status: Improved Function Patient Elected to Stop Discharge Summary: WAS REFERRED TO PT FOR LOW BACK PAIN->OF SIGNIFICANCE, THE Pt HAS A LEFT BKA AND DUE TO HER MEDICAL STATUS, SHE PRESENTED NOTING SHE HAD BEEN UNABLE TO PERFORM PROSTHETIC TRSINING. WE ADDRESSED THE Pt'S LBP AND PROXIMAL LEs WEAKNESS WELL FUNCTIONAL MOBILITY/ TRAINING WITH HER LEFT BK PROSTHESIS. THE Pt HAD OTHER MEDICAL CONDITIONS, ESPECIALLY FLUCTUATING EDEMA, DIRECTLY INFLUENCING CONSISTENT PROSTHETIC USE AND TRAINING. THE Pt ELECTED TO D/C PT AND DID NOT ATTEND HER LAST FEW SCHED PT APPTS. SHE DID MEET MANY OF HER PT GOALS, HOWEVER, A FORMAL REASSSESSMENT WAS NOT PERFORMED DUE TO ATTENDANCE. THE Pt HAS A THOROUGH HEP AND HAS BEEN EDUC RE COMPLIANCY FOR ULTIMATE PROGRESS. Electronically signed by: PAYAM COHN,PT Please sign and return to therapist. Thank you for your referral.
== END 2023-10-14 07:25 | disposition home or self-care (01) ==
LOC: HO.PT 10:00
PROVIDERS: PCP Registered Nurse; Visit Provider Registered Nurse
DX: Z89.512 Acquired absence of left leg below knee (principal)
CPT/HCPCS: 97110; 97116; 97163; 97530

== ENCOUNTER 2023-09-27 09:36 | Outpatient (REF) | payer OTHER, SELFPAY ==
[2023-09-27 10:00] LABS: MANUAL DIFF FLAG NO
[2023-09-27 10:42] LABS: Basophils Absolute Auto 0.1 X10*3/uL (0.0-0.2); Basophils Percent Auto 0.7 % (0-2); Eosinophils Absolute Auto 0.3 X10*3/uL (0.0-0.4); Hematocrit 29.9 % (37.0-47.0); Hemoglobin 8.8 g/dl (12.0-16.0); Imm Gran Abs Auto 0.05 X10*3/uL (0.00-0.03); Imm Gran Pct Auto 0.6 % (0.0-0.4); Lymphocytes Absolute Auto 1.9 X10*3/uL (1.2-4.9); Lymphocytes Percent Auto 21.8 % (20-40); Mean Corpuscular HGB Conc 29.4 g/dl (31.0-35.0); Mean Corpuscular Hemoglobin 19.5 pg (27.0-33.0); Mean Corpuscular Volume 66.2 fL (80.0-98.0); Mean Platelet Volume 10.5 fL (9.4-12.3); Monocytes Absolute Auto 0.6 X10*3/uL (0.1-1.2); Neutrophils Absolute Auto 5.7 x10*3/uL (2.0-8.3); Neutrophils Percent Auto 66.9 % (45-73); Platelet Count 370 X10*3/uL (160-400); Red Blood Count 4.52 X10*6/uL (4.20-5.50); Red Cell Distribution Width 18.4 % (11.0-16.0); White Blood Count 8.6 X10*3/uL (4.8-10.8)
[2023-09-27 10:48] LABS: INTERNATIONAL NORM RATIO 0.9 (0.9-1.1); Prothrombin Time 11.5 SEC (11.1-13.3)
[2023-09-27 11:12] LABS: Alanine Aminotransferase 35 U/L (0-31); Albumin Level 3.2 g/dL (3.5-5.0); Alkaline Phosphatase 125 U/L (39-117); Anion Gap 12 (12-20); Aspartate Amino Transferase 22 U/L (5-31); Bilirubin Total 0.3 mg/dL (0.0-1.0); Blood Urea Nitrogen 36 mg/dL (9-16); C Reactive Protein 0.63 mg/dL (< or = 0.50); Calcium 9.2 mg/dL (8.4-10.2); Carbon Dioxide 27 mmol/L (22-29); Chloride 105 mmol/L (96-108); Estimated Glomerular Filt Rate 34; Glucose Random 191 mg/dL (60-115); Magnesium 1.7 mg/dL (1.6-2.6); Potassium 3.8 mmol/L (3.3-5.1); Sodium 140 mmol/L (135-145); Total Protein 6.3 g/dL (6.5-8.0)
[2023-09-27 11:27] LABS: Erythrocyte Sedimentation Rate 42 MM/HR (0-20)
== END 2023-09-27 09:37 | disposition home or self-care (01) ==
LOC: HO.LAB 09:36
PROVIDERS: Absent Provider Registered Nurse; PCP Registered Nurse; Visit Provider Nurse Practitioner Family
DX: E11.22 Type 2 diabetes mellitus with diabetic chronic kidney disease (principal); N18.30 Chronic kidney disease, stage 3 unspecified; M79.10 Myalgia, unspecified site; Z79.4 Long term (current) use of insulin
CPT/HCPCS: 36415; 80053; 83735; 85025; 85610; 85652; 86140; 99202

== ENCOUNTER 2023-09-27 10:00 | Outpatient (RCR) | payer OTHER, SELFPAY ==
--- NOTE | 2023-08-29 16:35 | MHC.OT.EP ---
[address] [phone] Occupational Therapy Plan of Care Patient Name: Mitra Parish Date of Evaluation: 08/29/23 Diagnosis: Bilateral hand pain Pain Location: 8-9/10 bilsteral shoulders to hands. Right > left Pain Score: 8 Pain Scale Used: Numeric (0 - 10) Aggravating Factors: Reaching and gripping Alleviating Factors: Assessment: Pt is a 58 yo female with a complicated medical history including left BKA . OA and DM Pt reports worsening hand pain with occasional digits locking Today pt presents bilateral UE stiffness and decreased strength with the left hand strength slightly stronger than the right . Submax shoulder ROM noted on evaluation compared to practice with prescribed HEP No digit locking noted during this eval Pt tolerated UE exercise well Pt will benefit from OT for UE ther ex for improve bilateral upper extremity pain , strength and function Frequency and Duration: The patient will be seen 2 x wk x 4 wks Short Term Goals: Demo indep with HEP Tolerate isometric UE ex Dec complaint of hand pain to < 5/10 with daily activities using joint protection as needed Shelter Goals: Demonstrate awareness of joint protection of hand OA with daily activities Demonstrate independence with HEP Right food service assistant to >25 lb Decrease hand pain to low occasional Treatment Plan: Therapeutic Exercise Therapeutic Activity Home Exercise Program Patient Education ADL Training Electronically Signed By: Elva Gaviria OT CHT CLT Please Sign and return to therapist. Thank you once again for your referral.
== END 2023-12-26 10:41 | disposition home or self-care (01) ==
LOC: HO.OT 10:00
PROVIDERS: PCP Registered Nurse; Visit Provider Registered Nurse
DX: M79.641 Pain in right hand (principal); M79.642 Pain in left hand
CPT/HCPCS: 29125; 97035; 97110; 97140; 97166; 97760

== ENCOUNTER 2023-09-27 11:27 | Outpatient (AMB) | payer OTHER, SELFPAY ==
[2023-09-27 11:37] VITALS: BP 159/72; PULSE 86; RESP 14; O2SAT 98; BMI 39.1
--- NOTE | 2023-09-27 11:37 | A.OFFVIS_ITS ---
Intake Vital Signs 09/27/23 11:37 Height 5 ft Weight 200 lb BMI 39.1 BP 159/72 H Blood Pressure Location Lt brachial Position Sitting Respiration 14 Pulse 86 Pulse Source Pulse Oximeter Pulse Oximetry (%) 98 Oxygen Delivery Method Room Air Intake Visit Reasons: Cervicalgia Allergies No Known Allergies Allergy (Verified 09/27/23 11:37) HPI HPI Comments History of Present Illness Details Mitra is a very pleasant 58-year-old female presents the front of her right shoulder, neck and lower back pain. Patient is in a wheelchair due to left BKA, currently not using her prosthetic due to some bilateral lower extremity edema. She is accompanied to this visit by her adult daughter. She reports her most bothersome pain now is her right shoulder. She has not had any x-ray for this nor is she taking any medication for this pain. She is currently undergoing physical therapy for her neck and occupational therapy for bilateral upper extremities. Denies numbness weakness or tingling of either upper extremity Patient was evaluated by neuro spine for her neck pain, had an MRI and follow-up with no plans for neurosurgical intervention. Patient reports the pain has worsened over the last year, she is 1 year status post left BKA after nonhealing wounds to the foot. She states that she is already using her right arm with a wheelchair and also for transfers which has caused this right shoulder pain. Also endorses recent bilateral lower extremity edema, she is under the care of Nephrology and Cardiology. They are currently planning on some medication changes to try to alleviate the edema. She is follow-up with Heme-Onc today due to her history of anemia Pain today is rated as a 5/10, constant and worse in the mornings. In terms of muscle damage condition is described as aching, spasming, hot, burning, stabbing, sharp, shooting, dull, tiring, cramping, squeezing, numb, throbbing. Pain is negatively impacting patient's enjoyment of life, general activity, mood, sleep, walk Patient reports that she was formerly receiving treatment with chiropractor, acupuncture and massage when she lived in [place]. She would like to start with these modalities. Requesting referrals today. She declines discussing options for medication or interventional management at this time. Patient has known insulin-dependent diabetic, does not know her most recent A1c. [facility] Medical History Below-knee amputation of left lower extremity with complication Essential hypertension Obesity Chronic ulcer of right foot Peripheral vascular disease Anemia in chronic kidney disease (CKD) Acid reflux Osteomyelitis Leukocytosis Microcytic hypochromic anemia Irritable bowel syndrome Rectal prolapse Prolapsed uterus Carpal tunnel syndrome Peripheral neuropathy Retinopathy Osteoporosis Degenerative joint disease of spine PAD (peripheral artery disease) Toe ulcer due to DM Hypertension Arthritis Surgical History S/P below knee amputation H/O dilation and curettage Family History Maternal Grandmother Diabetes Maternal Grandfather Heart disease Cancer of unknown origin Mother HTN (hypertension) Paternal Uncle Thalassemia Social History Household Members: Children Household Members Other:: 4 Housing: Apartment Are you a primary career technical supervisor to a significant other at home: No Do you presently have visiting nurse or other home services: No Unable to assess alcohol history related to: Unknown Alcohol intake: never Comment: pt refusing red socks and bed alarm Patient Tobacco Use Status: Never used Tobacco Second Hand Smoke Exposure: No service: No Current occupational status: disabled Female Reproductive History Menstrual Age of Menarche: 8 Review of Systems Const All systems reviewed & are unremarkable except as noted in HPI and below Physical Exam Vital Signs: Last Vital Signs Pulse 86 09/27/23 11:37 Resp 14 09/27/23 11:37 BP 159/72 H 09/27/23 11:37 Pulse Ox 98 09/27/23 11:37 Oxygen Delivery Method Room Air 09/27/23 11:37 BMI result Body Mass Index 39.1 General: awake, alert, oriented. Answers questions appropriately. Fully engaged in examination. Skin: warm, dry, intact HEENT: Normocephalic. Hearing intact. Cardiac: External chest normal in appearance. Respiratory: No cough, audible wheezing or stridor. Abdomen: without gross distension. MS: Bilateral lower extremity edema Left BKA Limited range of motion right shoulder most notable with behind the back reach and overhead reach. Bilateral hand strength equal Tenderness over upper, middle and lower trapezius bilaterally. Right worse than left Provocative testing limited due to patient's inability to stand secondary to left BKA with no prosthetic currently in use Neurological: Oriented to person, place, time and situation. Thought process intact. Utilizing wheelchair Psychiatric: Appropriate mood and affect. Good judgment and insight. Results Reviewed Results Reviewed: 08/07/23 MR/MR cervical spine wo con FINDINGS: The craniocervical junction is intact. Sagittal alignment is maintained. There is no significant spondylolisthesis. Vertebral body heights are normal without acute compression fracture. No suspicious osseous lesion. Intraosseous hemangioma in the C7 vertebral body. The intervertebral disc space heights are preserved. Small central disc protrusions at C2-C3 and C5-C6. No spinal canal or neural foraminal stenosis at any level. The cervical spinal cord is normal in signal and morphology. No epidural fluid collection, mass, or hematoma. No significant abnormalities of the paraspinal musculature. The flow voids of the major cervical vessels are maintained. The visualized intracranial structures are normal. No demonstrated abnormalities in the visualized neck. IMPRESSION: Unremarkable cervical spine MRI. 08/17/22 MR/MR lumbar spine wo/w con FINDINGS: The lumbar vertebral bodies maintain normal heights and alignment. Mild degree of scoliotic curvature is noted. There is no abnormal signal within the disc spaces. The disc spaces appear well preserved. There is increased fluid within the left-sided L4-L5 facet joint with some periarticular edema and enhancement seen in this region. The distal spinal cord appears normal. The conus medullaris terminates normally at the T12-L1 level. There is no abnormal cauda equina nerve root enhancement. The psoas muscles appear symmetric. The imaged intra-abdominal and intrapelvic contents are within normal limits. SPINAL LEVELS: L1-L2: No posterior disc abnormality. No spinal canal or neural foraminal stenosis. L2-L3: No posterior disc abnormality. No spinal canal or neural foraminal stenosis. L3-L4: No posterior disc abnormality. No spinal canal or neural foraminal stenosis. L4-L5: No posterior disc abnormality or spinal canal stenosis. Increased left-sided facet joint fluid. No spinal canal or neural foraminal stenosis. L5-S1: No posterior disc abnormality. No spinal canal or neural foraminal stenosis. IMPRESSION: No evidence of discitis osteomyelitis. Increased fluid is seen within the left-sided L4-L5 facet joint with some periarticular edema seen about this region. If there is concern for infection, septic arthritis could have this appearance. Facet degeneration also a differential consideration. No spinal canal stenosis or nerve root compression is seen. Assessment & Plan Assessment & Plan (1) Right shoulder pain: Code(s): M25.511 - Pain in right shoulder (2) Myofascial muscle pain: Comment: Back Code(s): M79.18 - Myalgia, other site (3) Cervicalgia: Code(s): M54.2 - Cervicalgia (4) History of left below knee amputation: Code(s): Z89.512 - Acquired absence of left leg below knee Plan Mitra is a very pleasant 58-year-old female who presents the office today for evaluation management of her chronic neck, right shoulder and back pain. Patient declines options for treatment with any medications. Patient declines options for treatment with interventional management. She is requesting referral for massage, chiropractor and acupuncture as she found relief with this combination when she lived in [place]. X-ray right shoulder evaluation All questions and concerns were answered, patient agrees with plan. Follow up in the office if pain persists despite acupuncture, massage and chiro practic treatment, sooner if needed. Orders: Orders XR shoulder RT min 2V Today M25.511 - Pain in right shoulder Referrals Acupuncture Referral M25.511 - Pain in right shoulder, M54.2 - Cervicalgia, M54.9 - Dorsalgia, unspecified, M79.18 - Myalgia, other site Massage Therapy Referral M79.18 - Myalgia, other site Chiropractic Referral M54.2 - Cervicalgia, M54.9 - Dorsalgia, unspecified Coding Level of Care Code New Pt Level 4 (32664) Diagnoses Right shoulder pain M25.511 Myofascial muscle pain M79.18 Cervicalgia M54.2 History of left below knee amputation Z89.512
== END 2023-09-27 12:08 | disposition home or self-care (01) ==
PROVIDERS: PCP Registered Nurse; Visit Provider Registered Nurse Emergency
DX: M25.511 Pain in right shoulder (principal); M79.18 Myalgia, other site; M54.2 Cervicalgia; Z89.512 Acquired absence of left leg below knee
CPT/HCPCS: 99204

== ENCOUNTER 2023-10-11 12:06 | Outpatient (REF) | payer OTHER, SELFPAY ==
--- NOTE | ~2023-10-11 | XR_ITS ---
EXAMINATION: XR SHOULDER, RIGHT CLINICAL INFORMATION: Shoulder pain COMPARISON: None available. TECHNIQUE: Three views of the right shoulder. FINDINGS: Osteopenia. No visible acute fracture or dislocation. Mild acromioclavicular arthritis. Glenohumeral alignment is anatomic with normal joint space. 7 mm calcification/ossification superior to the greater tuberosity, could reflect heterotopic changes, calcific tendinitis/bursitis. In the visualized lungs, there is vascular and interstitial prominence. Bibasilar opacities, left greater than right which may reflect atelectasis or inflammatory/infectious process. Possible bilateral pleural effusions.. These findings incompletely evaluated. XR/XR shoulder RT min 2V IMPRESSION: No visible acute fracture or dislocation. 7 mm calcification/ossification superior to the greater tuberosity could reflect heterotopic changes, calcific tendinitis/bursitis. Mild acromioclavicular arthritis. In the partially visualized lungs, findings suggest interstitial pulmonary edema. Bibasilar opacities, left greater than right, could reflect atelectasis or inflammatory/infectious process. Bilateral pleural effusions.. Clinically correlate. Consider dedicated chest radiographs of further evaluation. The report will be called to the ordering clinician by a [facility] Physician Dining Manager.
--- NOTE | ~2023-10-11 | XR_ITS ---
EXAMINATION: XR CHEST CLINICAL INFORMATION: Shortness of breath COMPARISON: Previous chest x-ray most recent August 2022 TECHNIQUE: 2 views of the chest were obtained. FINDINGS: The cardiac silhouette is enlarged. There is pulmonary venous redistribution and small bilateral pleural effusions, left greater than right. This probably represents CHF. There may be linear subsegmental atelectasis in the bilateral mid lungs. Lungs are otherwise clear. No pneumothorax. Degenerative changes of the spine. XR/XR chest 2V IMPRESSION: Probable mild CHF.
[2023-10-11 13:44] LABS: Anion Gap 11 (12-20); Blood Urea Nitrogen 21 mg/dL (9-16); Calcium 8.7 mg/dL (8.4-10.2); Carbon Dioxide 28 mmol/L (22-29); Chloride 104 mmol/L (96-108); Estimated Glomerular Filt Rate 40; Glucose Random 305 mg/dL (60-115); Potassium 4.3 mmol/L (3.3-5.1); Sodium 139 mmol/L (135-145)
[2023-10-11 16:38] LABS: B Type Natriuretic Peptide 1636 pg/mL (<100)
== END 2023-10-11 12:07 | disposition home or self-care (01) ==
LOC: HO.LAB 12:06
PROVIDERS: Absent Provider Internal Medicine Medical Oncology; PCP Registered Nurse; Referring Provider Registered Nurse Emergency; Visit Provider Nurse Practitioner Family
DX: R60.9 Edema, unspecified (principal); M25.511 Pain in right shoulder; R06.02 Shortness of breath
CPT/HCPCS: 36415; 71046; 73030; 80048; 83880

== ENCOUNTER 2023-10-25 12:58 | Outpatient (REF) | payer OTHER, SELFPAY ==
[2023-10-25 13:10] LABS: MANUAL DIFF FLAG NO
[2023-10-25 14:01] LABS: Basophils Absolute Auto 0.1 X10*3/uL (0.0-0.2); Basophils Percent Auto 0.7 % (0-2); Eosinophils Absolute Auto 0.4 X10*3/uL (0.0-0.4); Eosinophils Percent Auto 4.1 % (0-4); Hematocrit 32.4 % (37.0-47.0); Hemoglobin 9.5 g/dl (12.0-16.0); Imm Gran Abs Auto 0.04 X10*3/uL (0.00-0.03); Imm Gran Pct Auto 0.4 % (0.0-0.4); Lymphocytes Absolute Auto 2.3 X10*3/uL (1.2-4.9); Lymphocytes Percent Auto 25.2 % (20-40); Mean Corpuscular HGB Conc 29.3 g/dl (31.0-35.0); Mean Corpuscular Hemoglobin 19.3 pg (27.0-33.0); Mean Platelet Volume 11.3 fL (9.4-12.3); Monocytes Absolute Auto 0.8 X10*3/uL (0.1-1.2); Monocytes Percent Auto 8.7 % (2-11); Neutrophils Absolute Auto 5.5 x10*3/uL (2.0-8.3); Neutrophils Percent Auto 60.9 % (45-73); Platelet Count 442 X10*3/uL (160-400); Red Blood Count 4.91 X10*6/uL (4.20-5.50); Red Cell Distribution Width 17.2 % (11.0-16.0)
[2023-10-25 14:06] LABS: Prothrombin Time 12.3 SEC (11.1-13.3)
[2023-10-25 14:55] LABS: Erythrocyte Sedimentation Rate 46 MM/HR (0-20)
[2023-10-25 16:39] LABS: Alanine Aminotransferase 34 U/L (0-31); Albumin Level 3.2 g/dL (3.5-5.0); Alkaline Phosphatase 166 U/L (39-117); Anion Gap 12 (12-20); Aspartate Amino Transferase 20 U/L (5-31); Bilirubin Total 0.3 mg/dL (0.0-1.0); Blood Urea Nitrogen 27 mg/dL (9-16); C Reactive Protein 1.49 mg/dL (< or = 0.50); Calcium 9.4 mg/dL (8.4-10.2); Carbon Dioxide 31 mmol/L (22-29); Chloride 104 mmol/L (96-108); Estimated Glomerular Filt Rate 46; Glucose Random 223 mg/dL (60-115); Magnesium 2.1 mg/dL (1.6-2.6); Potassium 4.1 mmol/L (3.3-5.1); Sodium 143 mmol/L (135-145); Total Protein 6.6 g/dL (6.5-8.0)
== END 2023-10-25 12:59 | disposition home or self-care (01) ==
LOC: HO.LAB 12:58
PROVIDERS: PCP Registered Nurse; Visit Provider Registered Nurse
DX: E11.22 Type 2 diabetes mellitus with diabetic chronic kidney disease (principal); N18.30 Chronic kidney disease, stage 3 unspecified; M79.10 Myalgia, unspecified site; Z79.4 Long term (current) use of insulin
CPT/HCPCS: 36415; 80053; 83735; 85025; 85610; 85652; 86140

== ENCOUNTER 2023-11-01 15:52 | Outpatient (REF) | payer OTHER, SELFPAY ==
[2023-11-01 17:48] LABS: MANUAL DIFF FLAG NO
[2023-11-01 17:49] LABS: Basophils Absolute Auto 0.1 X10*3/uL (0.0-0.2); Basophils Percent Auto 0.6 % (0-2); Eosinophils Absolute Auto 0.3 X10*3/uL (0.0-0.4); Eosinophils Percent Auto 3.3 % (0-4); Hematocrit 36.9 % (37.0-47.0); Hemoglobin 10.9 g/dl (12.0-16.0); Imm Gran Abs Auto 0.03 X10*3/uL (0.00-0.03); Imm Gran Pct Auto 0.3 % (0.0-0.4); Lymphocytes Absolute Auto 2.3 X10*3/uL (1.2-4.9); Lymphocytes Percent Auto 22.9 % (20-40); Mean Corpuscular HGB Conc 29.5 g/dl (31.0-35.0); Mean Corpuscular Hemoglobin 19.3 pg (27.0-33.0); Mean Corpuscular Volume 65.4 fL (80.0-98.0); Mean Platelet Volume 10.4 fL (9.4-12.3); Monocytes Absolute Auto 0.6 X10*3/uL (0.1-1.2); Monocytes Percent Auto 6.2 % (2-11); NRBC Pct Auto 0.2 /100WBC (0.0-0.2); Neutrophils Absolute Auto 6.8 x10*3/uL (2.0-8.3); Neutrophils Percent Auto 66.7 % (45-73); Platelet Count 469 X10*3/uL (160-400); Red Blood Count 5.64 X10*6/uL (4.20-5.50); Red Cell Distribution Width 18.8 % (11.0-16.0); White Blood Count 10.2 X10*3/uL (4.8-10.8)
[2023-11-01 17:58] LABS: Prothrombin Time 12.3 SEC (11.1-13.3)
[2023-11-01 18:17] LABS: Alanine Aminotransferase 26 U/L (0-31); Albumin Level 3.3 g/dL (3.5-5.0); Alkaline Phosphatase 135 U/L (39-117); Anion Gap 12 (12-20); Aspartate Amino Transferase 20 U/L (5-31); Bilirubin Total 0.3 mg/dL (0.0-1.0); Blood Urea Nitrogen 22 mg/dL (9-16); C Reactive Protein 0.48 mg/dL (< or = 0.50); Calcium 9.3 mg/dL (8.4-10.2); Carbon Dioxide 30 mmol/L (22-29); Chloride 102 mmol/L (96-108); Estimated Glomerular Filt Rate 32; Glucose Random 237 mg/dL (60-115); Magnesium 1.7 mg/dL (1.6-2.6); Potassium 3.9 mmol/L (3.3-5.1); Sodium 140 mmol/L (135-145); Total Protein 6.8 g/dL (6.5-8.0)
[2023-11-01 18:57] LABS: Erythrocyte Sedimentation Rate 28 MM/HR (0-20)
== END 2023-11-01 15:53 | disposition home or self-care (01) ==
LOC: HO.HHCL 15:52
PROVIDERS: Visit Provider Registered Nurse
DX: E11.22 Type 2 diabetes mellitus with diabetic chronic kidney disease (principal); N18.30 Chronic kidney disease, stage 3 unspecified; M79.10 Myalgia, unspecified site; Z79.4 Long term (current) use of insulin
CPT/HCPCS: 36415; 80053; 83735; 85025; 85610; 85652; 86140

== ENCOUNTER 2023-11-08 13:10 | Outpatient (REF) | payer OTHER, SELFPAY ==
[2023-11-08 13:33] LABS: MANUAL DIFF FLAG NO
[2023-11-08 13:45] LABS: Basophils Absolute Auto 0.1 X10*3/uL (0.0-0.2); Basophils Percent Auto 0.8 % (0-2); Eosinophils Absolute Auto 0.4 X10*3/uL (0.0-0.4); Hematocrit 37.4 % (37.0-47.0); Imm Gran Abs Auto 0.02 X10*3/uL (0.00-0.03); Imm Gran Pct Auto 0.2 % (0.0-0.4); Lymphocytes Absolute Auto 2.4 X10*3/uL (1.2-4.9); Lymphocytes Percent Auto 27.9 % (20-40); Mean Corpuscular HGB Conc 29.4 g/dl (31.0-35.0); Mean Corpuscular Hemoglobin 19.1 pg (27.0-33.0); Mean Corpuscular Volume 64.9 fL (80.0-98.0); Mean Platelet Volume 10.7 fL (9.4-12.3); Monocytes Absolute Auto 0.7 X10*3/uL (0.1-1.2); Monocytes Percent Auto 8.5 % (2-11); Neutrophils Absolute Auto 5.1 x10*3/uL (2.0-8.3); Neutrophils Percent Auto 58.6 % (45-73); Platelet Count 403 X10*3/uL (160-400); Red Blood Count 5.76 X10*6/uL (4.20-5.50); Red Cell Distribution Width 17.9 % (11.0-16.0); White Blood Count 8.7 X10*3/uL (4.8-10.8)
[2023-11-08 14:26] LABS: Anion Gap 14 (12-20); Blood Urea Nitrogen 35 mg/dL (9-16); Calcium 9.4 mg/dL (8.4-10.2); Carbon Dioxide 27 mmol/L (22-29); Chloride 100 mmol/L (96-108); Estimated Glomerular Filt Rate 45; Glucose Random 219 mg/dL (60-115); Potassium 3.7 mmol/L (3.3-5.1); Sodium 137 mmol/L (135-145)
[2023-11-08 14:29] LABS: B Type Natriuretic Peptide 1829 pg/mL (<100)
== END 2023-11-08 13:11 | disposition home or self-care (01) ==
LOC: HO.LAB 13:10
PROVIDERS: Absent Provider Nurse Practitioner Family; PCP Registered Nurse; Visit Provider Internal Medicine Medical Oncology
DX: I25.10 Atherosclerotic heart disease of native coronary artery without angina pectoris (principal); N17.9 Acute kidney failure, unspecified; R63.5 Abnormal weight gain; R60.9 Edema, unspecified
CPT/HCPCS: 36415; 80048; 83880; 85025

== ENCOUNTER 2023-11-20 07:45 | Outpatient (REF) | payer OTHER, SELFPAY ==
--- NOTE | ~2023-11-20 | US_ITS ---
EXAMINATION: ULTRASOUND OF KIDNEYS WITH RENAL ARTERY DOPPLER CLINICAL INFORMATION: CKD 3A and hypertension. COMPARISON: CT abdomen and pelvis 06/14/2023. TECHNIQUE: Ultrasound of the kidneys was performed along with color flow Doppler imaging and velocity measurements in the proximal mid and distal renal arteries. Aortic velocities were measured and renal/aortic ratios were calculated. FINDINGS: The kidneys appeared normal in size with the right kidney measuring 11.1 x 5.0 x 7.0 cm and the left kidney measuring 11.4 x 5.8 x 4.9 cm. No renal masses, renal stones or hydronephrosis is seen. Renal cortical thickness appears normal but echogenicity is slightly increased with decrease in cortical medullary differentiation. Velocity measurements in the proximal mid and distal renal arteries as follows in cm per second. Right: Proximal: 149. Mid: 131. Distal: 108. Left: Proximal: 197. Mid: 180. Distal: Not seen. Velocities in the mid aorta is 82 cm/s and, therefore, renal aortic ratio is 1.8 on the right and 2.4 on the left, both within normal limits. Segmental resistive indices on the right range from 0.76-0.79 and on the left range from 0.78-0.83. US/US renal BI IMPRESSION: 1. No evidence to suggest renal artery stenosis. 2. Mildly echogenic kidneys with normal volume consistent with diagnosis of medical renal disease.
--- NOTE | ~2023-11-20 | US_ITS ---
EXAMINATION: ULTRASOUND OF KIDNEYS WITH RENAL ARTERY DOPPLER CLINICAL INFORMATION: CKD 3A and hypertension. COMPARISON: CT abdomen and pelvis 06/14/2023. TECHNIQUE: Ultrasound of the kidneys was performed along with color flow Doppler imaging and velocity measurements in the proximal mid and distal renal arteries. Aortic velocities were measured and renal/aortic ratios were calculated. FINDINGS: The kidneys appeared normal in size with the right kidney measuring 11.1 x 5.0 x 7.0 cm and the left kidney measuring 11.4 x 5.8 x 4.9 cm. No renal masses, renal stones or hydronephrosis is seen. Renal cortical thickness appears normal but echogenicity is slightly increased with decrease in cortical medullary differentiation. Velocity measurements in the proximal mid and distal renal arteries as follows in cm per second. Right: Proximal: 149. Mid: 131. Distal: 108. Left: Proximal: 197. Mid: 180. Distal: Not seen. Velocities in the mid aorta is 82 cm/s and, therefore, renal aortic ratio is 1.8 on the right and 2.4 on the left, both within normal limits. Segmental resistive indices on the right range from 0.76-0.79 and on the left range from 0.78-0.83. US/US renal doppler IMPRESSION: 1. No evidence to suggest renal artery stenosis. 2. Mildly echogenic kidneys with normal volume consistent with diagnosis of medical renal disease.
[2023-11-20 09:52] LABS: Prothrombin Time 11.6 SEC (11.1-13.3)
[2023-11-20 10:20] LABS: Alanine Aminotransferase 11 U/L (0-31); Albumin Level 3.4 g/dL (3.5-5.0); Alkaline Phosphatase 112 U/L (39-117); Anion Gap 13 (12-20); Aspartate Amino Transferase 15 U/L (5-31); Bilirubin Total 0.2 mg/dL (0.0-1.0); Blood Urea Nitrogen 40 mg/dL (9-16); C Reactive Protein 1.26 mg/dL (< or = 0.50); Calcium 9.7 mg/dL (8.4-10.2); Carbon Dioxide 28 mmol/L (22-29); Chloride 102 mmol/L (96-108); Estimated Glomerular Filt Rate 35; Glucose Random 214 mg/dL (60-115); Magnesium 1.8 mg/dL (1.6-2.6); Sodium 139 mmol/L (135-145)
[2023-11-20 10:21] LABS: B Type Natriuretic Peptide 1305 pg/mL (<100)
[2023-11-20 10:38] LABS: Erythrocyte Sedimentation Rate 30 MM/HR (0-20)
== END 2023-11-20 07:46 | disposition home or self-care (01) ==
LOC: HO.US 07:45
PROVIDERS: Absent Provider Internal Medicine Medical Oncology; PCP Registered Nurse; Referring Provider Nurse Practitioner Family; Visit Provider Internal Medicine Nephrology
DX: R60.9 Edema, unspecified (principal); I12.9 Hypertensive chronic kidney disease with stage 1 through stage 4 chronic kidney disease, or unspecified chronic kidney disease; E11.22 Type 2 diabetes mellitus with diabetic chronic kidney disease; N18.31 Chronic kidney disease, stage 3a; D63.1 Anemia in chronic kidney disease; M79.10 Myalgia, unspecified site; Z79.4 Long term (current) use of insulin
CPT/HCPCS: 36415; 76775; 80053; 83735; 83880; 85025; 85610; 85652; 86140; 93975

== ENCOUNTER 2023-11-29 13:01 | Outpatient (REF) | payer OTHER, SELFPAY ==
--- NOTE | ~2023-11-29 | MM_ITS ---
EXAMINATION: MM SCREENING DIGITAL BREAST TOMOSYNTHESIS, BILATERAL CLINICAL INFORMATION: Screening. Asymptomatic. COMPARISON: Mammography: This study is compared with prior exams dating back to 2016. TECHNIQUE: Digital breast tomosynthesis is performed in both the craniocaudal and mediolateral oblique views along with computer-aided detection (CAD). Synthesized 2D images are generated from the tomosynthesis. FINDINGS: The breasts are almost entirely fatty (ACR BI-RADS breast composition Category a). There are no significant masses, abnormal calcifications, or other abnormalities. MM/MM tomosynthesis screening BI IMPRESSION: No mammographic evidence of malignancy. ASSESSMENT: BI-RADS BI-RADS 1 - Negative RECOMMENDATION: Routine annual mammography screening. 1 year F/U This examination should not preclude the clinical evaluation of a suspicious palpable abnormality. This patient's information was entered into a reminder system with a target due date for their next mammogram.
[2023-11-29 13:22] LABS: MANUAL DIFF FLAG NO
[2023-11-29 14:32] LABS: Basophils Absolute Auto 0.1 X10*3/uL (0.0-0.2); Basophils Percent Auto 0.7 % (0-2); Eosinophils Absolute Auto 0.2 X10*3/uL (0.0-0.4); Eosinophils Percent Auto 2.8 % (0-4); Hematocrit 37.5 % (37.0-47.0); Hemoglobin 11.3 g/dl (12.0-16.0); Imm Gran Abs Auto 0.02 X10*3/uL (0.00-0.03); Imm Gran Pct Auto 0.2 % (0.0-0.4); Lymphocytes Absolute Auto 2.8 X10*3/uL (1.2-4.9); Lymphocytes Percent Auto 32.5 % (20-40); Mean Corpuscular HGB Conc 30.1 g/dl (31.0-35.0); Mean Corpuscular Hemoglobin 18.9 pg (27.0-33.0); Mean Corpuscular Volume 62.6 fL (80.0-98.0); Mean Platelet Volume 11.1 fL (9.4-12.3); Monocytes Absolute Auto 0.7 X10*3/uL (0.1-1.2); Monocytes Percent Auto 7.6 % (2-11); Neutrophils Absolute Auto 4.9 x10*3/uL (2.0-8.3); Neutrophils Percent Auto 56.2 % (45-73); Platelet Count 310 X10*3/uL (160-400); Prothrombin Time 11.8 SEC (11.1-13.3); Red Blood Count 5.99 X10*6/uL (4.20-5.50); Red Cell Distribution Width 16.4 % (11.0-16.0); White Blood Count 8.7 X10*3/uL (4.8-10.8)
[2023-11-29 15:02] LABS: Alanine Aminotransferase 13 U/L (0-31); Albumin Level 3.3 g/dL (3.5-5.0); Alkaline Phosphatase 94 U/L (39-117); Anion Gap 13 (12-20); Aspartate Amino Transferase 16 U/L (5-31); Bilirubin Total 0.3 mg/dL (0.0-1.0); Blood Urea Nitrogen 23 mg/dL (9-16); C Reactive Protein 0.34 mg/dL (< or = 0.50); Calcium 9.5 mg/dL (8.4-10.2); Carbon Dioxide 28 mmol/L (22-29); Chloride 103 mmol/L (96-108); Estimated Glomerular Filt Rate 53; Glucose Random 165 mg/dL (60-115); Magnesium 1.8 mg/dL (1.6-2.6); Potassium 3.6 mmol/L (3.3-5.1); Sodium 140 mmol/L (135-145); Total Protein 6.8 g/dL (6.5-8.0)
[2023-11-29 15:08] LABS: Erythrocyte Sedimentation Rate 30 MM/HR (0-20)
== END 2023-11-29 13:02 | disposition home or self-care (01) ==
LOC: HO.MAMMO 13:01
PROVIDERS: Absent Provider Nurse Practitioner Family; PCP Registered Nurse; Visit Provider Registered Nurse
DX: Z12.31 Encounter for screening mammogram for malignant neoplasm of breast (principal); E11.22 Type 2 diabetes mellitus with diabetic chronic kidney disease; N18.30 Chronic kidney disease, stage 3 unspecified; M79.10 Myalgia, unspecified site; Z79.4 Long term (current) use of insulin
CPT/HCPCS: 36415; 77063; 77067; 80053; 83735; 85025; 85610; 85652; 86140

== ENCOUNTER → 2023-11-29 14:00 | Outpatient (BNV) | payer OTHER, SELFPAY | PROVIDERS: Absent Provider Nurse Practitioner Family; PCP Registered Nurse; Visit Provider Radiology Diagnostic Radiology | DX: Z12.31 Encounter for screening mammogram for malignant neoplasm of breast (principal) | CPT/HCPCS: 77063; 77067 ==

== ENCOUNTER 2023-12-06 11:32 | Outpatient (REF) | payer OTHER, SELFPAY | END 2023-12-06 11:33 | disposition home or self-care (01) | LOC: HO.LAB 11:32 | PROVIDERS: PCP Registered Nurse; Visit Provider Nurse Practitioner Family | DX: Z13.89 Encounter for screening for other disorder (principal) ==

== ENCOUNTER 2023-12-13 08:26 | Outpatient (REF) | payer OTHER, SELFPAY ==
[2023-12-13 08:53] LABS: MANUAL DIFF FLAG NO
[2023-12-13 09:52] LABS: Basophils Absolute Auto 0.1 X10*3/uL (0.0-0.2); Basophils Percent Auto 0.6 % (0-2); Eosinophils Absolute Auto 0.3 X10*3/uL (0.0-0.4); Eosinophils Percent Auto 2.8 % (0-4); Hematocrit 37.7 % (37.0-47.0); Hemoglobin 11.4 g/dl (12.0-16.0); Imm Gran Abs Auto 0.04 X10*3/uL (0.00-0.03); Imm Gran Pct Auto 0.4 % (0.0-0.4); Lymphocytes Absolute Auto 3.3 X10*3/uL (1.2-4.9); Lymphocytes Percent Auto 36.9 % (20-40); Mean Corpuscular HGB Conc 30.2 g/dl (31.0-35.0); Mean Corpuscular Hemoglobin 18.9 pg (27.0-33.0); Mean Platelet Volume 10.8 fL (9.4-12.3); Monocytes Absolute Auto 0.7 X10*3/uL (0.1-1.2); Monocytes Percent Auto 7.7 % (2-11); Neutrophils Absolute Auto 4.7 x10*3/uL (2.0-8.3); Neutrophils Percent Auto 51.6 % (45-73); Platelet Count 285 X10*3/uL (160-400); Red Blood Count 6.02 X10*6/uL (4.20-5.50); Red Cell Distribution Width 17.2 % (11.0-16.0); White Blood Count 9.1 X10*3/uL (4.8-10.8)
[2023-12-13 09:53] LABS: INTERNATIONAL NORM RATIO 0.9 (0.9-1.1); Prothrombin Time 11.2 SEC (11.1-13.3)
[2023-12-13 09:56] LABS: Mean Corpuscular Volume 62.6 fL (80.0-98.0)
[2023-12-13 10:25] LABS: Alanine Aminotransferase 12 U/L (0-31); Albumin Level 3.4 g/dL (3.5-5.0); Alkaline Phosphatase 81 U/L (39-117); Anion Gap 11 (12-20); Aspartate Amino Transferase 14 U/L (5-31); Bilirubin Total 0.2 mg/dL (0.0-1.0); Blood Urea Nitrogen 35 mg/dL (9-16); C Reactive Protein 0.12 mg/dL (< or = 0.50); Calcium 9.6 mg/dL (8.4-10.2); Carbon Dioxide 30 mmol/L (22-29); Chloride 103 mmol/L (96-108); Estimated Glomerular Filt Rate 46; Glucose Random 211 mg/dL (60-115); Magnesium 1.9 mg/dL (1.6-2.6); Potassium 3.8 mmol/L (3.3-5.1); Sodium 140 mmol/L (135-145); Total Protein 6.7 g/dL (6.5-8.0)
[2023-12-13 10:26] LABS: Erythrocyte Sedimentation Rate 21 MM/HR (0-20)
[2023-12-13 10:27] LABS: B Type Natriuretic Peptide 1216 pg/mL (<100)
== END 2023-12-13 08:27 | disposition home or self-care (01) ==
LOC: HO.LAB 08:26
PROVIDERS: Absent Provider Nurse Practitioner Family; PCP Registered Nurse; Visit Provider Registered Nurse
DX: E11.22 Type 2 diabetes mellitus with diabetic chronic kidney disease (principal); I12.9 Hypertensive chronic kidney disease with stage 1 through stage 4 chronic kidney disease, or unspecified chronic kidney disease; M79.10 Myalgia, unspecified site; N18.32 Chronic kidney disease, stage 3b; I50.9 Heart failure, unspecified; Z79.4 Long term (current) use of insulin; Z89.512 Acquired absence of left leg below knee
CPT/HCPCS: 36415; 80053; 83735; 83880; 85025; 85610; 85652; 86140

== ENCOUNTER 2023-12-27 09:14 | Outpatient (REF) | payer OTHER, SELFPAY ==
[2023-12-27 09:35] LABS: MANUAL DIFF FLAG NO
[2023-12-27 10:27] LABS: Basophils Absolute Auto 0.1 X10*3/uL (0.0-0.2); Basophils Percent Auto 0.7 % (0-2); Eosinophils Absolute Auto 0.3 X10*3/uL (0.0-0.4); Eosinophils Percent Auto 3.1 % (0-4); Hematocrit 32.8 % (37.0-47.0); Hemoglobin 10.1 g/dl (12.0-16.0); Imm Gran Abs Auto 0.03 X10*3/uL (0.00-0.03); Imm Gran Pct Auto 0.3 % (0.0-0.4); Lymphocytes Absolute Auto 2.6 X10*3/uL (1.2-4.9); Lymphocytes Percent Auto 28.1 % (20-40); Mean Corpuscular HGB Conc 30.8 g/dl (31.0-35.0); Mean Corpuscular Hemoglobin 18.8 pg (27.0-33.0); Monocytes Absolute Auto 0.8 X10*3/uL (0.1-1.2); Monocytes Percent Auto 8.8 % (2-11); Neutrophils Absolute Auto 5.4 x10*3/uL (2.0-8.3); Platelet Count 292 X10*3/uL (160-400); Red Blood Count 5.36 X10*6/uL (4.20-5.50); White Blood Count 9.2 X10*3/uL (4.8-10.8)
[2023-12-27 10:28] LABS: Mean Corpuscular Volume 61.2 fL (80.0-98.0)
[2023-12-27 10:33] LABS: INTERNATIONAL NORM RATIO 0.9 (0.9-1.1); Prothrombin Time 11.5 SEC (11.1-13.3)
[2023-12-27 10:58] LABS: Alanine Aminotransferase 22 U/L (0-31); Albumin Level 3.5 g/dL (3.5-5.0); Alkaline Phosphatase 88 U/L (39-117); Anion Gap 12 (12-20); Aspartate Amino Transferase 16 U/L (5-31); Bilirubin Total 0.3 mg/dL (0.0-1.0); Blood Urea Nitrogen 28 mg/dL (9-16); C Reactive Protein 0.46 mg/dL (< or = 0.50); Calcium 9.3 mg/dL (8.4-10.2); Carbon Dioxide 28 mmol/L (22-29); Chloride 105 mmol/L (96-108); Estimated Glomerular Filt Rate 47; Glucose Random 206 mg/dL (60-115); Magnesium 2.2 mg/dL (1.6-2.6); Potassium 3.8 mmol/L (3.3-5.1); Sodium 141 mmol/L (135-145); Total Protein 6.8 g/dL (6.5-8.0)
[2023-12-27 11:02] LABS: Erythrocyte Sedimentation Rate 36 MM/HR (0-20)
== END 2023-12-27 09:15 | disposition home or self-care (01) ==
LOC: HO.LAB 09:14
PROVIDERS: Absent Provider Nurse Practitioner Family; PCP Registered Nurse; Visit Provider Registered Nurse
DX: E11.22 Type 2 diabetes mellitus with diabetic chronic kidney disease (principal); N18.32 Chronic kidney disease, stage 3b; M79.10 Myalgia, unspecified site; Z79.4 Long term (current) use of insulin; Z89.512 Acquired absence of left leg below knee
CPT/HCPCS: 36415; 80053; 83735; 85025; 85610; 85652; 86140

== ENCOUNTER 2024-01-02 15:14 | Outpatient (REF) | payer OTHER, SELFPAY ==
[2024-01-02 16:55] LABS: MANUAL DIFF FLAG SCAN; SCAN SMEAR FLAG 1
[2024-01-02 16:56] LABS: PLT ABN DIST 1
[2024-01-02 16:57] LABS: Basophils Percent Auto 0.3 % (0-2); Eosinophils Absolute Auto 0.2 X10*3/uL (0.0-0.4); Lymphocytes Absolute Auto 2.4 X10*3/uL (1.2-4.9); Mean Corpuscular HGB Conc 30.2 g/dl (31.0-35.0); Mean Corpuscular Hemoglobin 18.6 pg (27.0-33.0); Monocytes Absolute Auto 0.8 X10*3/uL (0.1-1.2); Neutrophils Percent Auto 60.5 % (45-73)
[2024-01-02 17:02] LABS: Eosinophils Percent Auto 2.4 % (0-4); Hematocrit 31.8 % (37.0-47.0); Hemoglobin 9.6 g/dl (12.0-16.0); Imm Gran Pct Auto 0.5 % (0.0-0.4); Lymphocytes Percent Auto 27.7 % (20-40); Mean Corpuscular Volume 61.6 fL (80.0-98.0); Monocytes Percent Auto 8.6 % (2-11); Neutrophils Absolute Auto 5.3 x10*3/uL (2.0-8.3); Platelet Count 343 X10*3/uL (160-400); Red Blood Count 5.16 X10*6/uL (4.20-5.50); White Blood Count 8.7 X10*3/uL (4.8-10.8)
[2024-01-02 17:03] LABS: Imm Gran Abs Auto 0.04 X10*3/uL (0.00-0.03)
[2024-01-02 17:25] LABS: SLIDE REVIEW VERIFIED
[2024-01-02 18:36] LABS: Ferritin 391 ng/mL (10-250)
== END 2024-01-02 15:15 | disposition home or self-care (01) ==
LOC: HO.HHCL 15:14
PROVIDERS: Visit Provider Internal Medicine Medical Oncology
DX: D64.9 Anemia, unspecified (principal)
CPT/HCPCS: 36415; 82728; 85025

== ENCOUNTER 2024-01-17 12:09 | Outpatient (REF) | payer OTHER, SELFPAY ==
[2024-01-17 12:31] LABS: MANUAL DIFF FLAG NO
[2024-01-17 13:37] LABS: Basophils Percent Auto 0.4 % (0-2); Eosinophils Absolute Auto 0.2 X10*3/uL (0.0-0.4); Eosinophils Percent Auto 2.9 % (0-4); Hematocrit 30.6 % (37.0-47.0); Hemoglobin 9.4 g/dl (12.0-16.0); Imm Gran Abs Auto 0.04 X10*3/uL (0.00-0.03); Imm Gran Pct Auto 0.5 % (0.0-0.4); Mean Corpuscular HGB Conc 30.7 g/dl (31.0-35.0); Mean Corpuscular Hemoglobin 19.1 pg (27.0-33.0); Mean Platelet Volume 10.6 fL (9.4-12.3); Monocytes Absolute Auto 0.7 X10*3/uL (0.1-1.2); Monocytes Percent Auto 8.2 % (2-11); Neutrophils Absolute Auto 5.3 x10*3/uL (2.0-8.3); Platelet Count 302 X10*3/uL (160-400); Red Blood Count 4.91 X10*6/uL (4.20-5.50); Red Cell Distribution Width 20.2 % (11.0-16.0); White Blood Count 8.3 X10*3/uL (4.8-10.8)
[2024-01-17 13:38] LABS: Mean Corpuscular Volume 62.3 fL (80.0-98.0)
[2024-01-17 13:40] LABS: INTERNATIONAL NORM RATIO 0.9 (0.9-1.1); Prothrombin Time 11.4 SEC (11.1-13.3)
[2024-01-17 14:11] LABS: Alanine Aminotransferase 14 U/L (0-31); Albumin Level 3.5 g/dL (3.5-5.0); Alkaline Phosphatase 79 U/L (39-117); Anion Gap 13 (12-20); Aspartate Amino Transferase 14 U/L (5-31); Bilirubin Total 0.4 mg/dL (0.0-1.0); Blood Urea Nitrogen 30 mg/dL (9-16); C Reactive Protein 0.36 mg/dL (< or = 0.50); Calcium 9.7 mg/dL (8.4-10.2); Carbon Dioxide 26 mmol/L (22-29); Chloride 106 mmol/L (96-108); Estimated Glomerular Filt Rate 44; Glucose Random 165 mg/dL (60-115); Magnesium 2.4 mg/dL (1.6-2.6); Potassium 4.2 mmol/L (3.3-5.1); Sodium 141 mmol/L (135-145); Total Protein 6.8 g/dL (6.5-8.0)
[2024-01-17 14:29] LABS: Erythrocyte Sedimentation Rate 36 MM/HR (0-20)
== END 2024-01-17 12:10 | disposition home or self-care (01) ==
LOC: HO.LAB 12:09
PROVIDERS: Absent Provider Internal Medicine Medical Oncology; PCP Registered Nurse; Visit Provider Nurse Practitioner Family
DX: I12.9 Hypertensive chronic kidney disease with stage 1 through stage 4 chronic kidney disease, or unspecified chronic kidney disease (principal); E11.22 Type 2 diabetes mellitus with diabetic chronic kidney disease; N18.32 Chronic kidney disease, stage 3b; M79.10 Myalgia, unspecified site; Z89.512 Acquired absence of left leg below knee; Z79.4 Long term (current) use of insulin
CPT/HCPCS: 36415; 80053; 83735; 85025; 85610; 85652; 86140

== ENCOUNTER 2024-01-21 09:58 | Outpatient (AMB) | payer OTHER, SELFPAY ==
[2024-01-21 10:01] VITALS: BP 122/60; PULSE 76
--- NOTE | 2024-01-21 10:01 | MHC.OFFVIS ---
Vital Signs 01/21/24 10:01 Height 5 ft BP 122/60 Blood Pressure Location Lt brachial Position Sitting Pulse 76 Pulse Source Monitor Intake Visit Reasons: 2+ mth f/up Technical Support Representative Required: No Research Program Assistant: Research Program Assistant Present Allergies No Known Allergies Allergy (Verified 01/21/24 10:04) Medication List - Last Reconciled 01/21/24 by CLARENCE Almanzar amlodipine 5 mg PO DAILY aspirin 81 mg PO DAILY atorvastatin 80 mg PO BEDTIME blood sugar diagnostic (FreeStyle Lite Strips) As directed cholecalciferol (vitamin D3) 1 tab PO DAILY clotrimazole 1% 1 appl topical QAM AND QHS ezetimibe 10 mg PO DAILY folic acid 1 mg PO DAILY furosemide 80 mg (2 x 40 mg) PO DAILY 30 days insulin glargine (Lantus Solostar U-100 Insulin) 40 units subcut DAILY isosorbide mononitrate ER 60 mg PO DAILY lancets (TRUEplus Lancets) As directed lisinopril 10 mg PO DAILY magnesium oxide 400 mg PO TID metformin 1 tab PO BID metoprolol succinate ER 50 mg See Protocol PO DAILY pantoprazole 40 mg PO BEDTIME pen needle, diabetic (UltiCare Pen Needle) As directed pioglitazone 15 mg PO DAILY HPI HPI 2+ mth f/up: Details: Mitra is a 58 yo female with PMH of HTN, DM,CKD, PVD, chronic anemia, SVT, abnormal nuclear stress test who was admitted to [facility], August 2022 with non healing diabetic foot ulcer, sepsis, who then underwent a left BKA. An outpt CTA of the coronary arteries was done showing moderate LAD and RCA stenosis. On last visit she was to be set up for a cardiac catheterization which she then cancel the appointment. She now declines cardiac catheterization. On last visit in September she had reports of edema, her amlodipine was decreased and Lasix added. Today she presents for follow-up. Today she reports that she has been doing well overall since last visit. Her Lasix dose has been increased and is now up to 80 mg daily. She tells me she is now able to fit her prosthetic on her left leg stump. She has had some shortness of breath which she relates to the hot weather. She says she has a history of bronchitis and the hot air makes it worse. She does not have air conditioning in her home and is working on getting it. She will notice chest tightness when she has the shortness of breath. She has not clearly having symptoms brought on by physical activity. She is mostly sedentary and sits in a wheelchair. She wants to start physical therapy again. No presyncope, syncope, falls. She has been taking her medications as directed. Daughter is present. [facility] Medical History Below-knee amputation of left lower extremity with complication Essential hypertension Obesity Chronic ulcer of right foot Peripheral vascular disease Anemia in chronic kidney disease (CKD) Acid reflux Osteomyelitis Leukocytosis Microcytic hypochromic anemia Irritable bowel syndrome Rectal prolapse Prolapsed uterus Carpal tunnel syndrome Peripheral neuropathy Retinopathy Osteoporosis Degenerative joint disease of spine PAD (peripheral artery disease) Toe ulcer due to DM Hypertension Arthritis Surgical History S/P below knee amputation H/O dilation and curettage Family History Maternal Grandmother Diabetes Maternal Grandfather Heart disease Cancer of unknown origin Mother HTN (hypertension) Paternal Uncle Thalassemia Social History Household Members: Children Household Members Other:: 4 Housing: Apartment Are you a primary ocular care technologist to a significant other at home: No Do you presently have visiting nurse or other home services: No Unable to assess alcohol history related to: Unknown Alcohol intake: never Comment: pt refusing red socks and bed alarm Patient Tobacco Use Status: Never used Tobacco Second Hand Smoke Exposure: No service: No Current occupational status: disabled Female Reproductive History Menstrual Age of Menarche: 8 Review of Systems Const All systems reviewed & are unremarkable except as noted in HPI and below ENT Denies dizziness Card Details: chest tightness and shortness of breath in the hot weather Denies chest pain, Denies chest pain at rest, Denies chest pain with activity, Denies rapid heart rate, Denies pedal edema, Denies edema, Denies leg edema, Denies lightheadedness, Denies palpitations, Reports dyspnea, Denies dyspnea on exertion and Denies orthopnea Resp Denies cough, Reports dyspnea and Denies dyspnea on exertion GI Denies hematochezia and Denies change in stool character Musc Reports abnormal gait (wheelchair - not wearing leg prosthesis), Denies limited range of motion, Denies muscle cramps, Denies muscle weakness, Denies numbness, Denies radiating pain into limb, Denies stiffness and Denies tingling Neuro Reports abnormal gait (wheelchair - not wearing leg prosthesis), Denies dizziness, Denies numbness and Denies tingling Endo Denies palpitations Physical Exam Vital Signs: Last Vital Signs Pulse 76 01/21/24 10:01 BP 122/60 01/21/24 10:01 Const General: cooperative, healthy appearing, comfortable and no acute distress Orientation/consciousness: patient oriented x3 Neck Neck: Yes normal visual inspection and Yes no JVD Resp Effort & Inspection: normal respiratory effort Auscultation: clear to auscultation bilaterally, no crackles, no rales, no rhonchi and no wheezes Cardio Jugular venous distension: no JVD Rate: regular rate Rhythm: regular rhythm Heart sounds: S1 normal heart sound present, S2 normal heart sound present, no gallops, no murmurs and no rubs GI Inspection: Yes normal to inspection Neuro General: patient oriented x3 Extrem Other: Left BKA, nonpitting edema in each leg. Psych Appearance: grossly normal Mental Status: mental status grossly normal Speech and movement: Normal speech and movement present Office Procedures EKG Details: Today, read by me, normal sinus rhythm, nonspecific T-wave abnormality, rate 76, QTC 483 milliseconds [id number], Complete Assessment & Plan Assessment & Plan (1) Chest pain: Code(s): R07.9 - Chest pain, unspecified Category: Medical Qualifiers: Chest pain type: unspecified Qualified Code(s): R07.9 - Chest pain, unspecified Plan: Prior reports of chest discomfort, which sounded somewhat atypical. She does have cardiac risk factors of hypertension, hyperlipidemia, peripheral vascular disease and diabetes. A pharmacological nuclear stress test was done on 07/27/2022 and was equivocal for apical basal lateral ischemia. A CTA of the coronary arteries was done on 09/07/2022 showing 70% stenosis of the mid LAD between the 2nd and 3rd diagonal, RCA dominant with mid 50-60% stenosis. She declined cardiac catheterization and then on follow-up did agree to follow through with it. She then canceled the appointment and now again refuses cardiac catheterization. She is fearful of the procedure in spite of reassurance. She also reports having an issue with Plavix in the past and does not want to have any bleeding issues. She does have a known history of anemia. At this time she reports chest tightness which occurs mostly when she is feeling short of breath in the hot weather. She is mostly sedentary as she is in a wheelchair. She does not have chest discomfort that is clearly brought on by physical activity. At this time she is on triple antianginal agents. She tells me she has been running out of her medications but is unable to tell me today which when she is actually taking. She is requesting a refill on all her cardiac meds. Since she may not be taking her antianginals as directed will continue the same doses. Will continue on isosorbide, amlodipine and metoprolol XL. Continue aspirin 81 mg daily and atorvastatin 80 mg daily, Zetia 10 mg daily.. [place] LDL goal less than 70. Following last visit she did have a lipid profile done showing LDL 216. She is unsure if she was taking her atorvastatin at that time. Will plan for recheck of her fasting lipid profile in 2-3 months. Signs and symptoms of angina reviewed with her. Emergency care if ever needed for symptoms. Patient has been informed of her presumed coronary artery disease and risk of AK. Cardiology follow-up in 3 months, sooner if needed. (2) CAD (coronary artery disease): Comment: Moderate LAD and RCA stenosis on CTA of the coronary arteries 09/07/2022 - declined cardiac catheterization Code(s): I25.10 - Atherosclerotic heart disease of [place] coronary artery without angina pectoris Category: Medical Plan: As above (3) Edema: Code(s): R60.9 - Edema, unspecified Category: Medical Plan: Findings of heart failure with preserved EF. On last visit she reported leg edema and weight gain. She does report some shortness of breath with exertion. BNP was elevated at that time at 746. Her amlodipine dose was decreased down to 5 mg daily and Lasix was added. She does follow with Nephrology as well and since last visit her Lasix dose has been further increased up to 80 mg daily. It seems her BNP also became elevated further, on 11/08/2023 BNP was 1829. Today she reports that she has been feeling better overall. Her edema is down and she feels she may have lost weight. She was unable to get on our scale today. On exam lungs are clear. Labs were done on 01/17/2024 showing potassium 4.2, creatinine 1.24 . Signs and symptoms of heart failure reviewed with her. Low-salt diet reviewed. Increase physical activity as tolerated. She can resume physical therapy however call placed to therapy and notify them to let us know if she is developing any chest discomfort. (4) SVT (supraventricular tachycardia): Code(s): I47.1 - Supraventricular tachycardia Category: Medical Plan: Episode of SVT noted during [facility] admission 05/2022. Narrow complex tachycardia with heart rate in the 170s. She was treated with adenosine with conversion back to sinus rhythm. She did not have recurrent SVT during the remainder of her admission. Echocardiogram 05/14/2022 showed EF 55-60%, normal RV, atrium size is normal. She was discharged with metoprolol XL. Holter monitor done on 07/27/2022 for 3 days showed sinus rhythm with average heart rate 87, PACs 2.25% of the time, short SVT runs, longest 6 beats. Continued on metoprolol. She has not had documented recurrent SVT since that time. EKG done today showing normal sinus rhythm, rate 76. (5) Diabetes: Code(s): E11.9 - Type 2 diabetes mellitus without complications Category: Medical Plan: Hemoglobin A1c goal less than 7. Followed by her PCP (6) Anemia: Code(s): D64.9 - Anemia, unspecified Category: Medical Plan: History of chronic anemia. Has received transfusions in the past. Follows with Oncology/Hematology. Labs done 01/17/2024 shows hematocrit 30.6. She denies any signs of bleeding. Plan Time spent on chart review, documentation, interview, assessment, MD communication Orders: Orders Lipid Panel Today E78.5 - Hyperlipidemia, unspecified Medications: New aspirin 81 mg PO DAILY 90 tabs 3RF ezetimibe 10 mg PO DAILY 90 tabs 3RF isosorbide mononitrate ER 60 mg PO DAILY 90 tabs 3RF lisinopril 10 mg PO DAILY 90 tabs 1RF Changed From furosemide 80 mg (2 x 40 mg) PO DAILY 30 days 60 tabs 1RF To furosemide 80 mg (2 x 40 mg) PO DAILY 90 days 180 tabs 3RF Refilled amlodipine 5 mg PO DAILY 90 tabs 3RF atorvastatin obtain fasting cholesterol in 2 months 80 mg PO BEDTIME 90 tabs 3RF metoprolol succinate ER 50 mg See Protocol PO DAILY 90 tabs 3RF Discontinued isosorbide mononitrate ER Discontinued Reason: Doctor's Order 60 mg PO DAILY 30 tabs 8RF I20.89 - Other forms of angina pectoris Coding Level of Care Code Est Pt Level 4 (69605) Diagnoses Chest pain R07.9 Chest pain type: unspecified CAD (coronary artery disease) I25.10 Edema R60.9 SVT (supraventricular tachycardia) I47.1 Diabetes E11.9 Anemia D64.9 CPT Codes EKG - CPT: [id number], Complete ([id number]) Time Spent (min) 28
== END 2024-01-21 10:50 | disposition home or self-care (01) ==
PROVIDERS: PCP Registered Nurse; Visit Provider Nurse Practitioner Family
DX: R07.9 Chest pain, unspecified (principal); I25.10 Atherosclerotic heart disease of native coronary artery without angina pectoris; R60.9 Edema, unspecified; I47.10 Supraventricular tachycardia, unspecified; E11.9 Type 2 diabetes mellitus without complications; D64.9 Anemia, unspecified
CPT/HCPCS: 93010; 99214

== ENCOUNTER → 2024-01-21 09:58 | Outpatient (BNVA) | payer OTHER, SELFPAY | PROVIDERS: PCP Registered Nurse; Visit Provider Nurse Practitioner Family | DX: I12.9 Hypertensive chronic kidney disease with stage 1 through stage 4 chronic kidney disease, or unspecified chronic kidney disease (principal); N18.9 Chronic kidney disease, unspecified; I73.9 Peripheral vascular disease, unspecified; R07.9 Chest pain, unspecified; I25.10 Atherosclerotic heart disease of native coronary artery without angina pectoris; R60.9 Edema, unspecified; I47.10 Supraventricular tachycardia, unspecified; E11.9 Type 2 diabetes mellitus without complications; D64.9 Anemia, unspecified; Z79.899 Other long term (current) drug therapy; Z89.512 Acquired absence of left leg below knee | CPT/HCPCS: 93005; 99212 ==

== ENCOUNTER 2024-05-29 13:41 | Outpatient (REF) | payer OTHER, SELFPAY ==
[2024-05-29 14:20] LABS: MANUAL DIFF FLAG NO
[2024-05-29 14:22] LABS: Basophils Absolute Auto 0.1 X10*3/uL (0.0-0.2); Basophils Percent Auto 0.4 % (0-2); Eosinophils Absolute Auto 0.3 X10*3/uL (0.0-0.4); Eosinophils Percent Auto 2.6 % (0-4); Hematocrit 25.3 % (37.0-47.0); Hemoglobin 7.8 g/dl (12.0-16.0); Imm Gran Abs Auto 0.11 X10*3/uL (0.00-0.03); Imm Gran Pct Auto 0.9 % (0.0-0.4); Lymphocytes Absolute Auto 2.2 X10*3/uL (1.2-4.9); Lymphocytes Percent Auto 18.6 % (20-40); Mean Corpuscular HGB Conc 30.8 g/dl (31.0-35.0); Mean Corpuscular Hemoglobin 19.5 pg (27.0-33.0); Mean Platelet Volume 10.4 fL (9.4-12.3); Monocytes Absolute Auto 0.8 X10*3/uL (0.1-1.2); Monocytes Percent Auto 6.4 % (2-11); NRBC Pct Auto 0.2 /100WBC (0.0-0.2); Neutrophils Absolute Auto 8.6 x10*3/uL (2.0-8.3); Neutrophils Percent Auto 71.1 % (45-73); Platelet Count 312 X10*3/uL (160-400); Red Blood Count 4.01 X10*6/uL (4.20-5.50); Red Cell Distribution Width 15.3 % (11.0-16.0)
[2024-05-29 14:25] LABS: Mean Corpuscular Volume 63.1 fL (80.0-98.0)
[2024-05-29 14:53] LABS: Prothrombin Time 11.1 SEC (10.9-12.4)
[2024-05-29 14:59] LABS: Alanine Aminotransferase 64 U/L (0-31); Albumin Level 3.4 g/dL (3.5-5.0); Alkaline Phosphatase 146 U/L (39-117); Anion Gap 13 (12-20); Aspartate Amino Transferase 65 U/L (5-31); Bilirubin Total 0.3 mg/dL (0.0-1.0); Blood Urea Nitrogen 41 mg/dL (9-16); C Reactive Protein 1.25 mg/dL (< or = 0.50); Calcium 9.5 mg/dL (8.4-10.2); Carbon Dioxide 26 mmol/L (22-29); Chloride 99 mmol/L (96-108); Cholesterol 250 mg/dL (<200); Estimated Glomerular Filt Rate 36; Glucose Random 370 mg/dL (60-115); HDL Cholesterol 36 mg/dL (>40); LDL Cholesterol Calculated 161 mg/dL (<100); Sodium 134 mmol/L (135-145); Total Protein 6.9 g/dL (6.5-8.0); Triglycerides 266 mg/dL (<150)
[2024-05-29 15:25] LABS: Erythrocyte Sedimentation Rate 71 MM/HR (0-20)
== END 2024-05-29 13:42 | disposition home or self-care (01) ==
LOC: HO.LAB 13:41
PROVIDERS: Nurse Practitioner Family; Absent Provider Internal Medicine Medical Oncology; PCP Registered Nurse; Visit Provider Registered Nurse
DX: E78.5 Hyperlipidemia, unspecified (principal); D64.9 Anemia, unspecified; E11.22 Type 2 diabetes mellitus with diabetic chronic kidney disease; N18.30 Chronic kidney disease, stage 3 unspecified; Z79.4 Long term (current) use of insulin; M79.10 Myalgia, unspecified site; I10 Essential (primary) hypertension; N18.32 Chronic kidney disease, stage 3b; Z89.512 Acquired absence of left leg below knee
CPT/HCPCS: 36415; 80053; 80061; 83735; 85025; 85610; 85652; 86140

== ENCOUNTER 2024-06-08 09:02 | Outpatient (REF) | payer OTHER, SELFPAY ==
[2024-06-08 09:26] LABS: MANUAL DIFF FLAG NO
[2024-06-08 09:29] LABS: Basophils Percent Auto 0.4 % (0-2); Eosinophils Absolute Auto 0.3 X10*3/uL (0.0-0.4); Eosinophils Percent Auto 2.8 % (0-4); Hemoglobin 9.2 g/dl (12.0-16.0); Imm Gran Abs Auto 0.05 X10*3/uL (0.00-0.03); Imm Gran Pct Auto 0.6 % (0.0-0.4); Lymphocytes Absolute Auto 2.1 X10*3/uL (1.2-4.9); Lymphocytes Percent Auto 23.4 % (20-40); Mean Corpuscular HGB Conc 30.7 g/dl (31.0-35.0); Mean Corpuscular Hemoglobin 19.6 pg (27.0-33.0); Mean Platelet Volume 9.3 fL (9.4-12.3); Monocytes Absolute Auto 0.8 X10*3/uL (0.1-1.2); Monocytes Percent Auto 8.9 % (2-11); Neutrophils Absolute Auto 5.7 x10*3/uL (2.0-8.3); Neutrophils Percent Auto 63.9 % (45-73); Platelet Count 434 X10*3/uL (160-400); Red Cell Distribution Width 17.6 % (11.0-16.0)
[2024-06-08 09:30] LABS: Mean Corpuscular Volume 63.8 fL (80.0-98.0)
[2024-06-08 09:35] LABS: Prothrombin Time 11.7 SEC (10.9-12.4)
[2024-06-08 09:50] LABS: Alanine Aminotransferase 21 U/L (0-31); Albumin Level 3.5 g/dL (3.5-5.0); Alkaline Phosphatase 116 U/L (39-117); Anion Gap 13 (12-20); Aspartate Amino Transferase 20 U/L (5-31); Bilirubin Total 0.3 mg/dL (0.0-1.0); Blood Urea Nitrogen 52 mg/dL (9-16); C Reactive Protein 1.04 mg/dL (< or = 0.50); Calcium 9.2 mg/dL (8.4-10.2); Carbon Dioxide 30 mmol/L (22-29); Chloride 98 mmol/L (96-108); Estimated Glomerular Filt Rate 22; Glucose Random 260 mg/dL (60-115); Magnesium 1.9 mg/dL (1.6-2.6); Potassium 3.9 mmol/L (3.3-5.1); Sodium 137 mmol/L (135-145); Total Protein 7.1 g/dL (6.5-8.0)
[2024-06-08 10:07] LABS: Erythrocyte Sedimentation Rate 54 MM/HR (0-20)
== END 2024-06-08 09:03 | disposition home or self-care (01) ==
LOC: HO.LAB 09:02
PROVIDERS: Nurse Practitioner Family; PCP Registered Nurse; Referring Provider Internal Medicine Medical Oncology; Visit Provider Registered Nurse
DX: I12.9 Hypertensive chronic kidney disease with stage 1 through stage 4 chronic kidney disease, or unspecified chronic kidney disease (principal); E11.22 Type 2 diabetes mellitus with diabetic chronic kidney disease; N18.32 Chronic kidney disease, stage 3b; Z79.4 Long term (current) use of insulin; M79.10 Myalgia, unspecified site; Z89.512 Acquired absence of left leg below knee; D64.9 Anemia, unspecified
CPT/HCPCS: 36415; 80053; 83735; 85025; 85610; 85652; 86140

== ENCOUNTER 2024-06-09 17:31 | Outpatient (REF) | payer OTHER, SELFPAY | END 2024-06-09 17:32 | disposition home or self-care (01) | LOC: HO.HHCLNP 17:31 | PROVIDERS: Visit Provider Emergency Medicine | DX: R30.0 Dysuria (principal) | CPT/HCPCS: 87086; 87088; 87186 ==

== ENCOUNTER 2024-06-23 10:11 | Outpatient (REF) | payer OTHER, SELFPAY ==
[2024-06-23 10:32] LABS: MANUAL DIFF FLAG NO
[2024-06-23 10:35] LABS: Basophils Absolute Auto 0.1 X10*3/uL (0.0-0.2); Basophils Percent Auto 0.8 % (0-2); Eosinophils Absolute Auto 0.3 X10*3/uL (0.0-0.4); Eosinophils Percent Auto 3.2 % (0-4); Hematocrit 36.2 % (37.0-47.0); Hemoglobin 10.9 g/dl (12.0-16.0); Imm Gran Abs Auto 0.04 X10*3/uL (0.00-0.03); Imm Gran Pct Auto 0.4 % (0.0-0.4); Lymphocytes Percent Auto 21.1 % (20-40); Mean Corpuscular HGB Conc 30.1 g/dl (31.0-35.0); Mean Corpuscular Hemoglobin 19.2 pg (27.0-33.0); Mean Platelet Volume 9.5 fL (9.4-12.3); Monocytes Absolute Auto 0.7 X10*3/uL (0.1-1.2); Monocytes Percent Auto 7.6 % (2-11); Neutrophils Absolute Auto 6.2 x10*3/uL (2.0-8.3); Neutrophils Percent Auto 66.9 % (45-73); Platelet Count 399 X10*3/uL (160-400); Red Blood Count 5.68 X10*6/uL (4.20-5.50); White Blood Count 9.3 X10*3/uL (4.8-10.8)
[2024-06-23 10:37] LABS: Mean Corpuscular Volume 63.7 fL (80.0-98.0)
[2024-06-23 10:44] LABS: Prothrombin Time 11.3 SEC (10.9-12.4)
[2024-06-23 10:58] LABS: Alanine Aminotransferase 11 U/L (0-31); Albumin Level 3.6 g/dL (3.5-5.0); Alkaline Phosphatase 99 U/L (39-117); Anion Gap 14 (12-20); Aspartate Amino Transferase 19 U/L (5-31); Bilirubin Total 0.3 mg/dL (0.0-1.0); Blood Urea Nitrogen 45 mg/dL (9-16); Calcium 9.1 mg/dL (8.4-10.2); Carbon Dioxide 27 mmol/L (22-29); Chloride 97 mmol/L (96-108); Estimated Glomerular Filt Rate 27; Glucose Random 287 mg/dL (60-115); Magnesium 1.8 mg/dL (1.6-2.6); Potassium 4.1 mmol/L (3.3-5.1); Sodium 134 mmol/L (135-145); Total Protein 7.4 g/dL (6.5-8.0)
[2024-06-23 11:14] LABS: Erythrocyte Sedimentation Rate 38 MM/HR (0-20)
== END 2024-06-23 10:12 | disposition home or self-care (01) ==
LOC: HO.LAB 10:11
PROVIDERS: Absent Provider Internal Medicine Medical Oncology; PCP Registered Nurse; Visit Provider Nurse Practitioner Family
DX: D64.9 Anemia, unspecified (principal); E11.22 Type 2 diabetes mellitus with diabetic chronic kidney disease; N18.30 Chronic kidney disease, stage 3 unspecified; Z79.4 Long term (current) use of insulin; M79.10 Myalgia, unspecified site; I10 Essential (primary) hypertension; N18.32 Chronic kidney disease, stage 3b; Z89.512 Acquired absence of left leg below knee
CPT/HCPCS: 36415; 80053; 83735; 85025; 85610; 85652; 86140; 86850; 86900; 86901

== ENCOUNTER 2024-07-07 09:44 | Outpatient (REF) | payer OTHER, SELFPAY ==
[2024-07-07 10:48] LABS: INTERNATIONAL NORM RATIO 0.9 (0.9-1.1); Prothrombin Time 10.7 SEC (10.9-12.4)
[2024-07-07 11:02] LABS: Alanine Aminotransferase 9 U/L (0-31); Albumin Level 3.5 g/dL (3.5-5.0); Alkaline Phosphatase 109 U/L (39-117); Anion Gap 12 (12-20); Aspartate Amino Transferase 17 U/L (5-31); Bilirubin Total 0.2 mg/dL (0.0-1.0); Blood Urea Nitrogen 47 mg/dL (9-16); Calcium 9.6 mg/dL (8.4-10.2); Carbon Dioxide 25 mmol/L (22-29); Chloride 102 mmol/L (96-108); Estimated Glomerular Filt Rate 34; Glucose Random 400 mg/dL (60-115); Magnesium 1.8 mg/dL (1.6-2.6); Potassium 3.7 mmol/L (3.3-5.1); Sodium 135 mmol/L (135-145); Total Protein 7.3 g/dL (6.5-8.0)
[2024-07-07 11:16] LABS: Erythrocyte Sedimentation Rate 34 MM/HR (0-20)
== END 2024-07-07 09:45 | disposition home or self-care (01) ==
LOC: HO.LAB 09:44
PROVIDERS: Visit Provider Registered Nurse
DX: E11.22 Type 2 diabetes mellitus with diabetic chronic kidney disease (principal); N18.30 Chronic kidney disease, stage 3 unspecified; Z79.4 Long term (current) use of insulin; I12.9 Hypertensive chronic kidney disease with stage 1 through stage 4 chronic kidney disease, or unspecified chronic kidney disease; N18.32 Chronic kidney disease, stage 3b; Z89.512 Acquired absence of left leg below knee
CPT/HCPCS: 36415; 80053; 83735; 85610; 85652; 86140

== ENCOUNTER 2024-07-10 07:54 | Outpatient (RCR) | payer OTHER, SELFPAY | END 2024-10-01 15:33 | disposition home or self-care (01) | LOC: HO.WCC 07:54 | PROVIDERS: PCP Registered Nurse; Visit Provider Surgery | DX: Z09 Encounter for follow-up examination after completed treatment for conditions other than malignant neoplasm (principal); I87.321 Chronic venous hypertension (idiopathic) with inflammation of right lower extremity; I11.0 Hypertensive heart disease with heart failure; I50.9 Heart failure, unspecified; I73.9 Peripheral vascular disease, unspecified; E11.22 Type 2 diabetes mellitus with diabetic chronic kidney disease; E11.40 Type 2 diabetes mellitus with diabetic neuropathy, unspecified; N18.9 Chronic kidney disease, unspecified; Z89.512 Acquired absence of left leg below knee | CPT/HCPCS: 99212 ==

== ENCOUNTER 2024-08-04 09:42 | Outpatient (REF) | payer OTHER, SELFPAY ==
[2024-08-04 10:18] LABS: MANUAL DIFF FLAG NO
--- OUTSIDE RECORDS SUMMARY | 2024-08-04 10:20 | XMS_ITS | Encounter Summary ---
Author Organization [employer] Address [address] [place] [address] Care Team Providers Care Intelligence Consultant Name Role Phone Rosalind Cardoso Primary Care Provider Reason for Visit * Reason Onset Date Comments Appointment Request 12/06/2022 Lab Orders 12/06/2022 Encounter Details Date Type Department Care Team (Late st Contact Info) Description 12/06/2022 Telephone [facility] [address] [place] [address] Rosalind Cardoso FNP [address] [employer], [place] [id number] Appointment Request; Lab Orders Social History Tobacco Use Types Packs/Day Years Used Date Smoking Tobacco: Never Smokeless Tobacco: Never Alcohol Use Standard Drinks/Week Comments Never 0 (1 standard drink = 0.6 oz pur e alcohol) Depression Answer Date Recorded Patient Health Questionnaire-9 Score 0 12/25/2022 Housing Stability Answer Date Recorded What is your housing situation today? I have elbert metz 04/25/[address] you li ve. Do you have problems with any of the following? None of the above 04/25/2023 Food Insecurity Answer Date Recorded Within the past 12 months, y ou worried that your food would run out before you got money to buy more: Never True 04/25/2023 Within the past 12 months,th e food you bought just didn't last and you didn't have enough money to get more: Never True Transportation Answer Date Recorded In the past 12 months, has l ack of transportation kept you from medical appts, meetings, work or from getting things needed for daily living? No 04/25/2023 Utilities Answer Date Recorded In the past 12 months, has t he electric, gas, oil or water company threatened to shut off services in your home? No 04/25/2023 Depression Answer Date Recorded Patient Health Questionnaire-2 Score 0 12/25/2022 Comments Unknown Sex and Gender Information Value Date Recorded Sex Assigned at Female 05/07/2022 10:30 AM EDT Legal Sex Female 10:30 AM EDT Gender Identity Female 05/07/2022 10:30 AM EDT Sexual Orientation Straight 05/07/2022 10 :30 AM EDT COVID-19 Exposure Response Date Recorded In the last 10 days, have yo u been in contact with someone who was confirmed or suspected to have Coronavirus/COVID-19? No / Unsure 01/16/2023 9:26 AM EDT documented as of this encounter Miscellaneous Notes * Telephone Encounter - Suzette Weaver - 12/06/2022 10:34 AM EDT Director Of Guidance booked pt for 12/25/22 @ 1pm per recall however pt was upset due to appt being booked far out, pt is requesting a order for lab work before appt. Please contact at [phone] * Telephone Encounter - Suzette Weaver - 12/06/2022 10:22 AM EDT Tc from requesting to schedule a follow up appt with PCP , pt is on a recall ( Follow up in about 4weeks (around 12/03/2022) for Extended follow up - Care Management . ) , Director Of Guidance attempted to schedule however no 30 min slot available. Please contact at [phone] documented in this encounter Plan of Treatment Upcoming Encounters Date Type Department Care Team ([facility] st Contact Info) Description 09/04/2024 10:00 AM EST Office Visit [facility] [address] [place] [address] Rosalind Cardoso FNP [address] [place] [address] documented as of this encounter Visit Diagnoses Not on filedocumented in this encounter Care Teams Intelligence Consultant Relationship Specialty Start Date End Date Rosalind Cardoso FNP [address] [place] [id number] PCP - General Family Medicine 04/28/21 documented as of this encounter
--- OUTSIDE RECORDS SUMMARY | 2024-08-04 10:20 | XMS_ITS | Encounter Summary ---
Author Organization [employer] Address [address] [facility] 7t [place] [address] Care Team Providers Care Merchandise Manager Name Role Phone Rosalind Cardoso Primary Care Provider [phone] Encounter Details Date Type Department Care Team ([facility] st Contact Info) Description 01/17/2024 Orders Only [facility] MED & PEDS [address] [place], [place] [phone] Rosalind Cardoso FNP [address] [place] [address] Type 2 diabetes mellitus with stage 3 chronic kidney disease, with long-term current use of insulin, unspecified whether stage 3a or 3b CKD (CMS/HCC); Primary hypertension; Stage 3b chronic kidney disease (CMS/HCC); 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 (CMS/HCC) Social History Tobacco Use Types Packs/Day Years [...] Orientation Straight 05/07/2022 10 :30 AM EDT documented as of this encounter Plan of Treatment Upcoming Encounters Date Type Department Care Team (Late st Contact Info) Description 09/04/2024 10:00 AM EST Office Visit [facility] MED & PEDS [address] [place] [address] Rosalind Cardoso, TAMY [address] [place] [address] documented as of this encounter Procedures Procedure Name Priority Date/Time Associated Diagnosis Comments SED RATE BY MODIFIED WESTERGREN Routine 01/17/2024 12:30 PM EDT Type 2 diabetes mellitus with stage 3 chronic kidney disease, with long-term current use of insulin, unspecified whether stage 3a or 3b CKD (CMS/HCC) Primary hypertension Stage 3b chronic kidney disease (CMS/HCC) 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 (CMS/HCC) C-REACTIVE PROTEIN Routine 01/17/2024 12 :30 PM EDT Type 2 diabetes mellitus with stage 3 chronic kidney disease, with long-term current use of insulin, unspecified whether stage 3a or 3b CKD (CMS/HCC) Primary hypertension Stage 3b chronic kidney disease (CMS/HCC) 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 (CMS/HCC) documented in this encounter Results * C-reactive Protein (01/17/2024 12:30 PM EDT) C Reactive Protein 0.36 < or = 0.50 mg/dL [facility] Blood Venous blood specimen / Unknown 01/17/2024 12:30 PM EDT 01/17/2024 12:30 PM EDT Rosalind Cardoso DIMETHYLANILINE SULFATOR OPERATOR LAB BLOOD ORDERABLES Final Res ult Performing Organization Address [facility] Co de Phone Number [facility] [address] [place] [phone] * (ABNORMAL) Sed Rate by Modified Marlene (01/17/2024 12:30 PM EDT) Erythrocyte Sedimentation Rate 36(H) 0 - 20 MM/HR [facility] Comment:Patients with polycy themia and many hemoglobin abnormalitiesmay have depressed sed rates whereas patients with anemiamay have elevated sed rates. Blood Venous blood specimen / Unknown 01/17/2024 12:30 PM EDT 01/17/2024 12:30 PM EDT Rosalind Cardoso [facility] LAB BLOOD ORDERABLES Final Res ult Performing Organization Address [facility] Co de Phone Number [facility] [address] [place] [phone] documented in this encounter Visit Diagnoses Diagnosis Type 2 diabetes mellitus with stage 3 chronic kidney disease, with long-term current use of insulin, unspecified whether stage 3a or 3b CKD (CMS/HCC) Primary hypertension Unspecified essential hypertension Stage 3b chronic kidney disease (CMS/HCC) 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 (CMS/HCC) documented in this encounter Additional Health Concerns Assessment Noted Time PHQ-9 Depression Total Score: 0 12/26/19 23 1:09 PM EDT documented as of this encounter Care Teams Merchandise Manager Relationship Specialty Start Date End Date Rosalind Cardoso FNP [address] [place] [phone] PCP - General Family Medicine 04/28/21 documented as of this encounter
--- OUTSIDE RECORDS SUMMARY | 2024-08-04 10:20 | XMS_ITS | Encounter Summary ---
Author Organization [employer] Address [address] [facility] 7[address] [place] [address] Care Team Providers Care Rougher Machine Operator Name Role Phone Rosalind Cardoso Primary Care Provider [phone] Encounter Details Date Type Department Care Team ([facility] Contact Info) Description 12/27/2022 Abstract [facility] MED[facility] [address] [place] [address] Rosalind Cardoso FNP [address] [place] [address] Social History Tobacco Use Types Packs/Day Years Used Date Smoking Tobacco: Never Smokeless Tobacco: Never Alcohol Use Standard Drinks/Week Comments Never 0 (1 standard drink = 0.6 oz pur e alcohol) Depression Answer Date Recorded Patient Health Questionnaire-9 Score 0 12/25/2022 Depression Answer Date Recorded Patient Health Questionnaire-2 [...] suspected to have Coronavirus/COVID-19? No / Unsure 12/25/2022 12:58 PM EDT documented as of this encounter Plan of Treatment Upcoming Encounters Date Type Department Care Team ([facility] Contact Info) Description 09/04/2024 10:00 AM EST Office Visit [facility] MED & PEDS [address] [place] [address] Rosalind Cardoso FNP [address] [place] [address] documented as of this encounter Procedures Procedure Name Priority Date/Time Associated Diagnosis Comments MAMMOGRAPHY Routine 11/23/2022 2:56 PM EDT documented in this encounter Results * Hm Mammography (11/23/2022 2:56 PM EDT) HM Mammogram Birads 1 Anatomical Region Laterality Modality Other Narrative 11/23/2022 2:56 PM EDT Recommended routine annual screening us Historical Provider HEALTH MAINTENANCE Final Result documented in this encounter Visit Diagnoses Not on filedocumented in this encounter Additional Health Concerns Assessment Noted Time PHQ-9 Depression Total Score: 0 12/26/19 23 1:09 PM EDT documented as of this encounter Care Teams Rougher Machine Operator Relationship Specialty Start Date End Date Rosalind Cardoso FNP [address] [place] [address] PCP - General Family Medicine 04/28/21 documented as of this encounter
--- OUTSIDE RECORDS SUMMARY | 2024-08-04 10:20 | XMS_ITS | Encounter Summary ---
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 [address] [place] [address] Phone: tel: fax: Referral ID Status Reason Start Date Expiration Date V isits Requested Visits Authorized [id number] Closed Specialty Services Required 11/28/2023 11/27/2024 1 1 Reason for Visit * Reason Onset Date Comments Referral 11/25/2023 Results 11/25/2023 Encounter Details Date Type Department Care Team (Late st Contact Info) Description 11/25/2023 Telephone [facility] [address] [place] [address] Rosalind Cardoso FNP [address] [place] [address] Referral; Results Social History Tobacco Use Types Packs/Day Years [...] encounter Miscellaneous Notes * Telephone Encounter - Wing Deep, RN - 11/28/2023 10:01 AM EDT Tc to pt to inform about referral. Pt reports feeling better and reminded of upcoming appt. Stated there is no news on the US of david as of yet when pt asked. * Telephone Encounter - TAMY Ram - 11/28/2023 7:08 AM EDT Thanks ! Referral to Acupuncture and Massage sent. I will follow up with pt during appt. * Telephone Encounter - Wing Deep RN - 11/26/2023 11:02 AM EDT Please advise, tc to pt in regards to lab results and provider questions. Pt stated she has been unwell for a week with chest tightness making it hard to breath, persistent cough, and fatigue. Pt reports having had these symptoms before and it makes sleeping difficult. Pt also has been on lisinopril, 10 mg starting last month by security advisor along with continuing furosemide, 80 mg. Pt is also requesting new referral [facility] and full body massage respectively. Originally was [facility] pt was unable to go due to being sick and leg swelling. Called [facility] at [phone], spoke to Stella and confirmed a referral was sent and another needs to be sent so insurance cancover it. Their fax is [phone]. Also called [facility] and got their fax number which is [phone]. Pt is also waiting for results of US done on kidney at [facility] on 11/19. Advised that results may take some time to come in. Gave pt appt on 12/08 at 11 am with PCP to work on referral and to check on status of illness. Advised pt to go to ED if chest tightness worsens. Pt verbalized understanding and agreement with plan. ----- Message from Nurse Wing Brown sent at 11/25/2023 8:24 PM EDT ----- Please call Ms. Parish to review lab results: -H/H 11.4/37.7 -Did note increase in her WBC, any recent SOHEILA symptoms? -Also noted increase in one of her inflammatory markers and creatinine level for kidney function. Did she start a new med recently? -magnesium WNL Thank you! * Telephone Encounter - Hilaria Jaime - 11/25/2023 10:55 AM EDT TC from pt requesting new referral : DATE: n/a TIME: n/a Address: [address] [place] [address] Visits: n/a Facility Name: [facility] Type of Specialist: Acupuncture DX: amputation and Fibromyalgia Phone # : [phone] Fax #: n/a TC from pt requesting call back regarding Results. Type of results: labs Date when done: 11/19 Facility: [facility] Pt is also calling to advise provider security advisor increased dosage of furosemide (Lasix) 20 MG tablet to 80 mg. Advise to continue medication for a week and do blood work by end of this week. Pt will also be receiving prosthetic leg in about a week or so Any questions, contact pt at [phone] documented in this encounter Plan of Treatment Upcoming Encounters Date Type Department Care Team ([facility] Contact Info) Description 09/04/2024 10:00 AM EST Office Visit 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 ([facility]) Expected: 11/28/2023 (Approximate), Expires: 11/27/2024 documented as of this encounter Visit Diagnoses Diagnosis Cervicalgia- Primary Fibromyalgia Unspecified myalgia and myositis 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
--- OUTSIDE RECORDS SUMMARY | 2024-08-04 10:20 | XMS_ITS | Encounter Summary ---
Author Organization [employer] Address [address] [facility] 7t [place] [address] Care Team Providers Care Pediatric Neuropsychologist Name Role Phone Rosalind Cardoso Primary Care Provider [phone] Encounter Details Date Type Department Care Team (Late st Contact Info) Description 11/01/2023 Orders Only [facility] MED[facility] [address] [place] [address] Rosalind Cardoso FNP [address] [place] [address] Type 2 diabetes mellitus with stage 3 chronic kidney disease, with long-term current use of insulin, unspecified whether stage 3a or 3b CKD (CMS/HCC); Myalgia Social History Tobacco Use Types Packs/Day Years [...] Description 09/04/2024 10:00 AM EST Office Visit [facility] MED & PEDS [address] [place] [address] Rosalind Cardoso FNP [address] [place] [address] documented as of this encounter Procedures Procedure Name Priority Date/Time Associated Diagnosis Comments CBC WITH AUTO DIFFERENTIAL Routine 11/01/2023 3:58 PM EDT Type 2 diabetes mellitus with stage 3 chronic kidney disease, with long-term current use of insulin, unspecified whether stage 3a or 3b CKD (CMS/HCC) Myalgia SED RATE BY MODIFIED WESTERGREN Routine 11/01/2023 3:53 PM EDT Type 2 diabetes mellitus with stage 3 chronic kidney disease, with long-term current use of insulin, unspecified whether stage 3a or 3b CKD (CMS/HCC) Myalgia PROTHROMBIN TIME-INR Routine 11/01/2023 3:53 PM EDT Type 2 diabetes mellitus with stage 3 chronic kidney disease, with long-term current use of insulin, unspecified whether stage 3a or 3b CKD (CMS/HCC) Myalgia C-REACTIVE PROTEIN Routine 11/01/2023 3: 53 PM EDT Type 2 diabetes mellitus with stage 3 chronic kidney disease, with long-term current use of insulin, unspecified whether stage 3a or 3b CKD ([facility]) Myalgia MAGNESIUM Routine 11/01/2023 3:53 PM EDT Type 2 diabetes mellitus with stage 3 chronic kidney disease, with long-term current use of insulin, unspecified whether stage 3a or 3b CKD ([facility]) Myalgia COMPREHENSIVE METABOLIC PANEL Routine 11/01/2023 3:53 PM EDT Type 2 diabetes mellitus with stage 3 chronic kidney disease, with long-term current use of insulin, unspecified whether stage 3a or 3b CKD ([facility]) Myalgia documented in this encounter Results * (ABNORMAL) CBC auto differential (11/01/2023 3:58 PM EDT) White Blood Count 10.2 4.8 - 10.8 X10*3/uL [facility] Red Blood Count 5.64(H) 4.20 - 5.50 X10*6/uL [facility] Hemoglobin 10.9(L) 12.0 - 16.0 g/dl [facility] Hematocrit 36.9(L) 37.0 - 47.0 % [facility] Mean Corpuscular Volume 65.4(L) 80.0 - 98.0 fL [facility] Mean Corpuscular Hemoglobin 19.3(L) 27.0 - 33.0 pg [facility] Mean Corpuscular HGB Conc 29.5(L) 31.0 - 35.0 g/dl [facility] Red Cell Distribution Width 18.8(H) 11.0 - 16.0 % [facility] Platelet Count 469(H) 160 - 400 X10*3/uL [facility] Mean Platelet Volume 10.4 9.4 - 12.3 fL [facility] Neutrophils Percent Auto 66.7 45 - 73 % [facility] Imm Gran Pct Auto 0.3 0.0 - 0.4 % [facility] Lymphocytes Percent Auto 22.9 20 - 40 % [facility] Monocytes Percent Auto 6.2 2 - 11 % [facility] Eosinophils Percent Auto 3.3 0 - 4 % [facility] Basophils Percent Auto 0.6 0 - 2 % [facility] NRBC Pct Auto 0.2 0.0 - 0.2 /100WBC [facility] Neutrophils Absolute Auto 6.8 2.0 - 8.3 x10*3/uL [facility] Imm Gran Abs Auto 0.03 0.00 - 0.03 X10*3/uL [facility] Lymphocytes Absolute Auto 2.3 1.2 - 4.9 X10*3/uL [facility] Monocytes Absolute Auto 0.6 0.1 - 1.2 X10*3/uL [facility] Eosinophils Absolute Auto 0.3 0.0 - 0.4 X10*3/uL [facility] Basophils Absolute Auto 0.1 0.0 - 0.2 X10*3/uL [facility] NRBC Abs Auto 0.020(H) 0.0 - 0.012 X10*3/uL [facility] Blood Venous blood specimen / Unknown 11/01/2023 3:58 PM EDT 11/01/2023 5:40 PM EDT [employer] [facility] LAB BLOOD ORDERABLES Final Res ult [facility] [address] [place] [phone] * (ABNORMAL) Sed Rate by Modified Westergren (11/01/2023 3:53 PM EDT) Erythrocyte Sedimentation Rate 28(H) 0 - 20 MM/HR [facility] Comment:Patients with polycy themia and many hemoglobin abnormalitiesmay have depressed sed rates whereas patients with anemiamay have elevated sed rates. Blood Venous blood specimen / Unknown 11/01/2023 3:53 PM EDT 11/01/2023 5:40 PM EDT [employer] WAITER/WAITRESS BAR LAB BLOOD ORDERABLES Final Res ult Performing Organization Address [facility] Co de Phone Number [facility] [address] [place] [phone] * C-reactive Protein (11/01/2023 3:53 PM EDT) C Reactive Protein 0.48 < or = 0.50 mg/dL [facility] Blood Venous blood specimen / Unknown 11/01/2023 3:53 PM EDT 11/01/2023 5:40 PM EDT Rosalind Cardoso WAITER/WAITRESS BAR LAB BLOOD ORDERABLES Final Res ult Performing Organization Address [facility] de Phone Number [facility] [address] [place] [phone] * Magnesium (11/01/2023 3:53 PM EDT) Magnesium 1.7 1.6 - 2.6 mg/dL [facility] Blood Venous blood specimen / Unknown 11/01/2023 3:53 PM EDT 11/01/2023 5:40 PM EDT Rosalind Cardoso WAITER/WAITRESS BAR LAB BLOOD ORDERABLES Final Res ult Performing Organization Address [facility] de Phone Number [facility] [address] [place] [phone] * Prothrombin Time-INR (11/01/2023 3:53 PM EDT) Prothrombin Time 12.3 11.1 - 13.3 SEC [facility] INTERNATIONAL NORM RATIO 1.0 0.9 - 1.1 [facility] Comment:INTERNATIONAL NORMAL IZED RATIO (INR) REFERENCE RANGES Reference RangeFor patients not on anticoagulant therapy: 0.9 - 1.1INR ranges for oral anticoagulanttherapy:For prevention and treatment of venous thrombosis and pulmonary embolism: 2.0 - 3.0For acute myocardial infarction with aspirin therapy: 2.0 - 3.0For acute myocardial infarction without aspirin therapy: 3.0 - 4.0For patients with mechanical prosthetic heart valves: 2.5 - 3.5 Blood Venous blood specimen / Unknown 11/01/2023 3:53 PM EDT 11/01/2023 5:40 PM EDT us Rosalind Cardoso WAITER/WAITRESS BAR LAB BLOOD ORDERABLES Final Res ult [facility] [address] [place] [phone] * (ABNORMAL) Comprehensive Metabolic Panel (11/01/2023 3:53 PM EDT) Sodium 140 135 - 145 mmol/L [facility] Potassium 3.9 3.3 - 5.1 mmol/L [facility] Chloride 102 96 - 108 mmol/L [facility] Carbon Dioxide 30(H) 22 - 29 mmol/L [facility] Anion Gap 12 12 - 20 [facility] Urea Nitrogen (BUN) 22(H) 9 - 16 mg/dL [facility] Creatinine, Serum 1.64(H) 0.5 - 1.4 mg/dL [facility] Estimated Glomerular Filt Rate 32 [facility] Comment:NOTE: For -Am erican individuals, multiply the result by 1.210.Chronic Kidney Disease: Estimated GFR < 60 mL/min/[id number] Kidney Disease: Estimated GFR < 15 mL/min/1.73m2 Glucose 237(H) 60 - 115 mg/dL [facility] Calcium 9.3 8.4 - 10.2 mg/dL [facility] Bilirubin, Total 0.3 0.0 - 1.0 mg/dL [facility] Aspartate Amino Transferase 20 5 - 31 U/L [facility] Alanine Aminotransferase 26 0 - 31 U/L [facility] Total Protein 6.8 6.5 - 8.0 g/dL [facility] Albumin Level 3.3(L) 3.5 - 5.0 g/dL [facility] Alkaline Phosphatase 135(H) 39 - 117 U/L [facility] Blood Venous blood specimen / Unknown 11/01/2023 3:53 PM EDT 11/01/2023 5:40 PM EDT us Rosalind MORELOS LAB BLOOD ORDERABLES Final Res ult [facility] [address] [place] [phone] documented in this encounter Visit Diagnoses Diagnosis Type 2 diabetes mellitus with stage 3 chronic kidney disease, with long-term current use of insulin, unspecified whether stage 3a or 3b CKD (CMS/HCC) Myalgia Unspecified myalgia and myositis documented in this encounter Additional Health Concerns Assessment Noted Time PHQ-9 Depression Total Score: 0 12/26/19 23 1:09 PM EDT documented as of this encounter Care Teams Pediatric Neuropsychologist Relationship Specialty Start Date End Date Rosalind Cardoso FNP [address] [place] [phone] PCP - General Family Medicine 04/28/21 documented as of this encounter
--- OUTSIDE RECORDS SUMMARY | 2024-08-04 10:20 | XMS_ITS | Encounter Summary ---
Author Organization [employer] Address [address] [facility] 7t [place] [address] Care Team Providers Care Utility Operator Yarn Name Role Phone Rosalind Cardoso Primary Care Provider [phone] Encounter Details Date Type Department Care Team (Late st Contact Info) Description 11/15/2023 Orders Only [facility] MED[facility]INE [address] [place] [address] Rosalind Cardoso FNP [address] [place] [address] Type 2 diabetes mellitus with stage 3 [...] Upcoming Encounters Date Type Department Care Team ([facility] st Contact Info) Description 09/04/2024 10:00 AM EST Office Visit [facility] [address] [place] [address] Rosalind Cardoso FNP [address] [place] [address] documented as of this encounter Procedures Procedure Name Priority Date/Time Associated Diagnosis Comments SED RATE BY MODIFIED HECTOR Routine 11/20/2023 9:36 AM EDT Type 2 diabetes mellitus with stage 3 chronic kidney disease, with long-term current use of insulin, unspecified whether stage 3a or 3b CKD ([facility]/HCC) Myalgia PROTHROMBIN TIME-INR Routine 11/20/2023 9:36 AM EDT Type 2 diabetes mellitus with stage 3 chronic kidney disease, with long-term current use of insulin, unspecified whether stage 3a or 3b CKD (CMS/HCC) Myalgia C-REACTIVE PROTEIN Routine 11/20/2023 9: 36 AM EDT Type 2 diabetes mellitus with stage 3 chronic kidney disease, with long-term current use of insulin, unspecified whether stage 3a or 3b CKD (CMS/HCC) Myalgia MAGNESIUM Routine 11/20/2023 9:36 AM EDT Type 2 diabetes mellitus with stage 3 chronic kidney disease, with long-term current use of insulin, unspecified whether stage 3a or 3b CKD (CMS/HCC) Myalgia COMPREHENSIVE METABOLIC PANEL Routine 11/20/2023 9:36 AM EDT Type 2 diabetes mellitus with stage 3 chronic kidney disease, with long-term current use of insulin, unspecified whether stage 3a or 3b CKD (CMS/HCC) Myalgia documented in this encounter Results * (ABNORMAL) Sed Rate by Modified Westergren (11/20/2023 9:36 AM EDT) Erythrocyte Sedimentation Rate 30(H) 0 - 20 MM/HR [facility] Comment:Patients with polycy themia and many hemoglobin abnormalitiesmay have depressed sed rates whereas patients with anemiamay have elevated sed rates. Blood Venous blood specimen / Unknown 11/20/2023 9:36 AM EDT 11/20/2023 9:36 AM EDT Rosalind Cardoso [facility] LAB BLOOD ORDERABLES Final Res ult Performing Organization Address [facility]/ZIP Co de Phone Number [facility] [address] [place] [phone] * (ABNORMAL) C-reactive Protein (11/20/2023 9:36 AM EDT) C Reactive Protein 1.26(H) < or = 0.50 mg/dL [facility] Blood Venous blood specimen / Unknown 11/20/2023 9:36 AM EDT 11/20/2023 9:36 AM EDT Rosalind Cardoso [facility] LAB BLOOD ORDERABLES Final Res ult Performing Organization Address City/[facility]/ZIP Co de Phone Number [facility] [address] [place] [phone] * Magnesium (11/20/2023 9:36 AM EDT) Magnesium 1.8 1.6 - 2.6 mg/dL [facility] Blood Venous blood specimen / Unknown 11/20/2023 9:36 AM EDT 11/20/2023 9:36 AM EDT Rosalind Cardoso [facility] LAB BLOOD ORDERABLES Final Res ult Performing Organization Address [facility] de Phone Number [facility] [address] [place] [phone] * Prothrombin Time-INR (11/20/2023 9:36 AM EDT) Prothrombin Time 11.6 11.1 - 13.3 SEC [facility] INTERNATIONAL NORM RATIO 1.0 0.9 - 1.1 [facility] Comment:INTERNATIONAL NORMAL IZED RATIO (INR) [...] 3.5 Blood Venous blood specimen / Unknown 11/20/2023 9:36 AM EDT 11/20/2023 9:36 AM EDT Rosalind Cardoso [facility] LAB BLOOD ORDERABLES Final Res ult Performing Organization Address [facility] de Phone Number [facility] [address] [place] [phone] * (ABNORMAL) Comprehensive Metabolic Panel (11/20/2023 9:36 AM EDT) Sodium 139 135 - 145 mmol/L [facility] Potassium 4.0 3.3 - 5.1 mmol/L [facility] Chloride 102 96 - 108 mmol/L [facility] Carbon Dioxide 28 22 - 29 mmol/L [facility] Anion Gap 13 12 - 20 [facility] Urea Nitrogen (BUN) 40(H) 9 - 16 mg/dL [facility] Creatinine, Serum 1.51(H) 0.5 - 1.4 mg/dL [facility] Estimated Glomerular Filt Rate 35 [facility] Comment:NOTE: For -Am erican individuals, multiply the result by 1.210.Chronic Kidney Disease: Estimated GFR < 60 mL/min/[id number] Kidney Disease: Estimated GFR < 15 mL/min/1.73m2 Glucose 214(H) 60 - 115 mg/dL [facility] Calcium 9.7 8.4 - 10.2 mg/dL [facility] Bilirubin, Total 0.2 0.0 - 1.0 mg/dL [facility] Aspartate Amino Transferase 15 5 - 31 U/L [facility] Alanine Aminotransferase 11 0 - 31 U/L [facility] Total Protein 7.0 6.5 - 8.0 g/dL [facility] Albumin Level 3.4(L) 3.5 - 5.0 g/dL [facility] Alkaline Phosphatase 112 39 - 117 U/L [facility] Blood Venous blood specimen / Unknown 11/20/2023 9:36 AM EDT 11/20/2023 9:36 AM EDT us Rosalind MORELOS LAB BLOOD ORDERABLES Final Res ult [facility] [address] [place] [phone] documented in this encounter Visit Diagnoses Diagnosis Type 2 diabetes mellitus with stage 3 chronic kidney disease, with long-term current use of insulin, unspecified whether stage 3a or 3b CKD ([facility]/HCC) Myalgia Unspecified myalgia and myositis documented in this encounter Additional Health Concerns Assessment Noted Time PHQ-9 Depression Total Score: 0 12/26/19 23 1:09 PM EDT documented as of this encounter Care Teams Utility Operator Yarn Relationship Specialty Start Date End Date Rosalind Cardoso FNP [address] [place] [address] PCP - General Family Medicine 04/28/21 documented as of this encounter
--- OUTSIDE RECORDS SUMMARY | 2024-08-04 10:20 | XMS_ITS | Encounter Summary ---
Author Organization [employer] Address [address] [facility] 7[address] [place] [address] Care Team Providers Care Spray Gun Striper Name Role Phone Rosalind Cardoso Primary Care Provider [phone] Encounter Details Date Type Department Care Team (Late st Contact Info) Description 11/29/2023 Orders Only [facility] MEDICINE [address] [place] [address] Rosalind Cardoso FNP [address] [place] [address] Type 2 diabetes mellitus with stage 3 [...] Description 09/04/2024 10:00 AM EST Office Visit [facility] MED & PEDS [address] [place] [address] Rosalind Cardoso FNP [address] [place] [address] documented as of this encounter Procedures Procedure Name Priority Date/Time Associated Diagnosis Comments BI MAMMOGRAM SCREENING TOMOSYNTHESIS BILATERAL Routine 11/29/2023 2:40 PM EDT CBC WITH AUTO DIFFERENTIAL Routine 11/29/2023 1:21 PM EDT Type 2 diabetes mellitus with stage 3 chronic kidney disease, with long-term current use of insulin, unspecified whether stage 3a or 3b CKD (CMS/HCC) Myalgia SED RATE BY MODIFIED WESTERGREN Routine 11/29/2023 1:21 PM EDT Type 2 diabetes mellitus with stage 3 chronic kidney disease, with long-term current use of insulin, unspecified whether stage 3a or 3b CKD (CMS/HCC) Myalgia PROTHROMBIN TIME-INR Routine 11/29/2023 1:21 PM EDT Type 2 diabetes mellitus with stage 3 chronic kidney disease, with long-term current use of insulin, unspecified whether stage 3a or 3b CKD (CMS/HCC) Myalgia C-REACTIVE PROTEIN Routine 11/29/2023 1: 21 PM EDT Type 2 diabetes mellitus with stage 3 chronic kidney disease, with long-term current use of insulin, unspecified whether stage 3a or 3b CKD (CMS/HCC) Myalgia MAGNESIUM Routine 11/29/2023 1:21 PM EDT Type 2 diabetes mellitus with stage 3 chronic kidney disease, with long-term current use of insulin, unspecified whether stage 3a or 3b CKD (CMS/HCC) Myalgia COMPREHENSIVE METABOLIC PANEL Routine 11/29/2023 1:21 PM EDT Type 2 diabetes mellitus with stage 3 chronic kidney disease, with long-term current use of insulin, unspecified whether stage 3a or 3b CKD (CMS/HCC) Myalgia documented in this encounter Results * BI Mammogram Screening Tomosynthesis Bilateral (11/29/2023 2:40 PM EDT) Anatomical Region Laterality Modality Breast Bilateral Mammography 11/29/2023 2:40 PM EDT Narrative 12/27/2023 3:26 PM EDT ? [facility] [place] ? [address] ?[place] [address] ? Mammography Report ? Signed ? Patient: Manus,Mitra ?MR#: [id number] ? : 1965 ?Acct:[id number] ? Age/Sex: 58 / F ?ADM Date: 05/24/24 ? Loc: HO.MAMMO ? Attending Dr: Rosalind Cardoso COSMETOLOGIST APPRENTICE ? Ordering Physician: Janae,Rosalind COSMETOLOGIST APPRENTICE ?Results: 1Negat ?? aiden ? Date of Service: 11/29/23 ?Follow Up: 1 Year From Orig ?? inal Mammogram ? Procedure(s): MM tomosynthesis screening BI ?? Accession Number(s): [id number] ? cc: Rosalind Cardoso COSMETOLOGIST APPRENTICE ? EXAMINATION: ?? MM SCREENING DIGITAL BREAST TOMOSYNTHESIS, BILATERAL ? CLINICAL INFORMATION: ? Screening. Asymptomatic. ? COMPARISON: ?? Mammography: This study is compared with prior exams dating back to ?? 2015. ?? TECHNIQUE: ?? Digital breast tomosynthesis is performed in both the craniocaudal and ?? mediolateral oblique views along with computer-aided detection (CAD). ?? Synthesized 2D images are generated from the tomosynthesis. ? FINDINGS: ?? The breasts are almost entirely fatty (ACR BI-RADS breast composition ?? Category a). ? There are no significant masses, abnormal calcifications, or other ?? abnormalities. ? MM/MM tomosynthesis screening BI ?? IMPRESSION: ?? No mammographic evidence of malignancy. ? ASSESSMENT: ? BI-RADS BI-RADS 1 - Negative ? RECOMMENDATION: ?? Routine annual mammography screening. ? 1 year F/U ? This examination should not preclude the clinical evaluation of a ?? suspicious palpable abnormality. ? This patient's information was entered into a reminder system with a ?? target due date for their next mammogram. ? Dictated By: ?Yoli Childs MD ? Signed By: ?<Electronically signed by Yoli Childs MD in OV> ? 12/27/23 1522 ? DD/ 1440 ? TD/TT: ? Panel Flow Machine Operator: ? Procedure Note Mauri, Mily - 12/27/2023 [facility] [address] [place] [address] Dr. [place], [place] [address] Mammography Report Signed Patient: Dany Parish#: [id number] : 1965Acct:[id number] Age/Sex: 58 / FADM Date: 11/29/23 Loc: YOAN.MAMMO Attending Dr: Rosalind Cardoso COSMETOLOGIST APPRENTICE Ordering Physician: Rosalind CardosoPResults: 1Negat aiden Date of Service: 11/29/23Follow Up: 1 Year From Orig inal Mammogram Procedure(s): MM tomosynthesis screening BI Accession Number(s): [id number] cc: Rosalind Cardoso EXAMINATION: MM SCREENING DIGITAL BREAST TOMOSYNTHESIS, BILATERAL CLINICAL INFORMATION: Screening. Asymptomatic. COMPARISON: Mammography: This study is compared with prior exams dating back to 2016. TECHNIQUE: Digital breast tomosynthesis is performed in both the craniocaudal and mediolateral oblique views along with computer-aided detection (CAD). Synthesized 2D images are generated from the tomosynthesis. FINDINGS: The breasts are almost entirely fatty (ACR BI-RADS breast composition Category a). There are no significant masses, abnormal calcifications, or other abnormalities. MM/MM tomosynthesis screening BI IMPRESSION: No mammographic evidence of malignancy. ASSESSMENT: BI-RADS BI-RADS 1 - Negative RECOMMENDATION: Routine annual mammography screening. 1 year F/U This examination should not preclude the clinical evaluation of a suspicious palpable abnormality. This patient's information was entered into a reminder system with a target due date for their next mammogram. Dictated By: Yoli Childs MD Signed By: <Electronically signed by Yoli Childs MD in OV> 12/27/23 1522 DD/ 1440 TD/TT: Panel Flow Machine Operator: Rosalind STARKSP IMG BI PROCEDURES Final Result * (ABNORMAL) Sed Rate by Modified Marlene (11/29/2023 1:21 PM EDT) Erythrocyte Sedimentation Rate 30(H) 0 - 20 MM/HR [facility] Comment:Patients with polycy themia and many hemoglobin abnormalitiesmay have depressed sed rates whereas patients with anemiamay have elevated sed rates. Blood Venous blood specimen / Unknown 11/29/2023 1:21 PM EDT 11/29/2023 1:21 PM EDT oRsalind Cardoso COSMETOLOGIST APPRENTICE LAB BLOOD ORDERABLES Final Res ult Performing Organization Address [facility] Co de Phone Number [facility] [address] [place] [phone] * C-reactive Protein (11/29/2023 1:21 PM EDT) C Reactive Protein 0.34 < or = 0.50 mg/dL [facility] Blood Venous blood specimen / Unknown 11/29/2023 1:21 PM EDT 11/29/2023 1:21 PM EDT Rosalind Cardoso COSMETOLOGIST APPRENTICE LAB BLOOD ORDERABLES Final Res ult Performing Organization Address [facility] Co de Phone Number [facility] [address] [place] [phone] * Magnesium (11/29/2023 1:21 PM EDT) Magnesium 1.8 1.6 - 2.6 mg/dL [facility] Blood Venous blood specimen / Unknown 11/29/2023 1:21 PM EDT 11/29/2023 1:21 PM EDT Rosalind Cardoso COSMETOLOGIST APPRENTICE LAB BLOOD ORDERABLES Final Res ult Performing Organization Address [facility] Co de Phone Number [facility] [address] [place] [phone] * Prothrombin Time-INR (11/29/2023 1:21 PM EDT) Prothrombin Time 11.8 11.1 - 13.3 SEC [facility] INTERNATIONAL NORM RATIO 1.0 0.9 - 1.1 [facility] Comment:INTERNATIONAL NORMAL IZED RATIO (INR) [...] 3.5 Blood Venous blood specimen / Unknown 11/29/2023 1:21 PM EDT 11/29/2023 1:21 PM EDT us Rosalind Janae COSMETOLOGIST APPRENTICE LAB BLOOD ORDERABLES Final Res ult [facility] [address] [place] [phone] * (ABNORMAL) Comprehensive Metabolic Panel (11/29/2023 1:21 PM EDT) Sodium 140 135 - 145 mmol/L [facility] Potassium 3.6 3.3 - 5.1 mmol/L [facility] Chloride 103 96 - 108 mmol/L [facility] Carbon Dioxide 28 22 - 29 mmol/L [facility] Anion Gap 13 12 - 20 [facility] Urea Nitrogen (BUN) 23(H) 9 - 16 mg/dL [facility] Creatinine, Serum 1.06 0.5 - 1.4 mg/dL [facility] Estimated Glomerular Filt Rate 53 [facility] Comment:NOTE: For -Am erican individuals, multiply the result by 1.210.Chronic Kidney Disease: Estimated GFR < 60 mL/min/[id number] Kidney Disease: Estimated GFR < 15 mL/min/1.73m2 Glucose 165(H) 60 - 115 mg/dL [facility] Calcium 9.5 8.4 - 10.2 mg/dL [facility] Bilirubin, Total 0.3 0.0 - 1.0 mg/dL [facility] Aspartate Amino Transferase 16 5 - 31 U/L [facility] Alanine Aminotransferase 13 0 - 31 U/L [facility] Total Protein 6.8 6.5 - 8.0 g/dL [facility] Albumin Level 3.3(L) 3.5 - 5.0 g/dL [facility] Alkaline Phosphatase 94 39 - 117 U/L [facility] Blood Venous blood specimen / Unknown 11/29/2023 1:21 PM EDT 11/29/2023 1:21 PM EDT us Rosalind Teoedna COSMETOLOGIST APPRENTICE LAB BLOOD ORDERABLES Final Res ult [facility] [address] [place], [place] [phone] * (ABNORMAL) CBC auto differential (11/29/2023 1:21 PM EDT) White Blood Count 8.7 4.8 - 10.8 X10*3/uL [facility] Red Blood Count 5.99(H) 4.20 - 5.50 X10*6/uL [facility] Hemoglobin 11.3(L) 12.0 - 16.0 g/dl [facility] Hematocrit 37.5 37.0 - 47.0 % [facility] Mean Corpuscular Volume 62.6(L) 80.0 - 98.0 fL [facility] Mean Corpuscular Hemoglobin 18.9(L) 27.0 - 33.0 pg [facility] Mean Corpuscular HGB Conc 30.1(L) 31.0 - 35.0 g/dl [facility] Red Cell Distribution Width 16.4(H) 11.0 - 16.0 % [facility] Platelet Count 310 160 - 400 X10*3/uL [facility] Mean Platelet Volume 11.1 9.4 - 12.3 fL [facility] Neutrophils Percent Auto 56.2 45 - 73 % [facility] Imm Gran Pct Auto 0.2 0.0 - 0.4 % [facility] Lymphocytes Percent Auto 32.5 20 - 40 % [facility] Monocytes Percent Auto 7.6 2 - 11 % [facility] Eosinophils Percent Auto 2.8 0 - 4 % [facility] Basophils Percent Auto 0.7 0 - 2 % [facility] NRBC Pct Auto 0.0 0.0 - 0.2 /100WBC [facility] Neutrophils Absolute Auto 4.9 2.0 - 8.3 x10*3/uL [facility] Imm Gran Abs Auto 0.02 0.00 - 0.03 X10*3/uL [facility] Lymphocytes Absolute Auto 2.8 1.2 - 4.9 X10*3/uL [facility] Monocytes Absolute Auto 0.7 0.1 - 1.2 X10*3/uL [facility] Eosinophils Absolute Auto 0.2 0.0 - 0.4 X10*3/uL [facility] Basophils Absolute Auto 0.1 0.0 - 0.2 X10*3/uL [facility] NRBC Abs Auto 0.000 0.0 - 0.012 X10*3/uL [facility] Blood Venous blood specimen / Unknown 11/29/2023 1:21 PM EDT 11/29/2023 1:21 PM EDT us Rosalind MORELOS LAB BLOOD ORDERABLES Final Res ult [facility] [address] [place] [address] [phone] documented in this encounter Visit Diagnoses [...] documented as of this encounter Care Teams Spray Gun Striper Relationship Specialty Start Date End Date Rosalind Cardoso FNP [address] [place] [address] PCP - General Family Medicine 04/28/21 documented as of this encounter
--- OUTSIDE RECORDS SUMMARY | 2024-08-04 10:20 | XMS_ITS | Encounter Summary ---
Author Organization [employer] Address [address] [facility] 7t [place] [address] Care Team Providers Care Managing Supervisor Name Role Phone Rosalind Cardoso Primary Care Provider [phone] Encounter Details Date Type Department Care Team (Late st Contact Info) Description 12/27/2023 Orders Only [facility] MED[facility]INE [address] [place] [address] Rosalind Cardoso FNP [address] [place] [address] Type 2 diabetes mellitus with stage 3 [...] Description 09/04/2024 10:00 AM EST Office Visit [facility] PED[facility] [address] [place], [place] [phone] Rosalind Cardoso FNP [address] [place] [address] documented as of this encounter Procedures Procedure Name Priority Date/Time Associated Diagnosis Comments PROTHROMBIN TIME-INR Routine 12/27/2023 9:33 AM EDT Type 2 diabetes mellitus with stage 3 chronic kidney disease, with long-term current use of insulin, unspecified whether stage 3a or 3b CKD ([facility]) Myalgia documented in this encounter Results * Prothrombin Time-INR (12/27/2023 9:33 AM EDT) Prothrombin Time 11.5 11.1 - 13.3 SEC [facility] INTERNATIONAL NORM RATIO 0.9 0.9 - 1.1 [facility] Comment:INTERNATIONAL NORMAL IZED RATIO (INR) REFERENCE [...] 3.5 Blood Venous blood specimen / Unknown 12/27/2023 9:33 AM EDT 12/27/2023 9:33 AM EDT Rosalind MORELOS LAB BLOOD ORDERABLES Final Res ult [facility] [address] [place] [phone] documented in this encounter Visit Diagnoses [...] documented as of this encounter Care Teams Managing Supervisor Relationship Specialty Start Date End Date Rosalind Cardoso FNP [address] [place] [phone] PCP - General Family Medicine 04/28/21 documented as of this encounter
--- OUTSIDE RECORDS SUMMARY | 2024-08-04 10:20 | XMS_ITS | Encounter Summary ---
Author Organization [employer] Address [address] [facility] 7t [place] [address] Care Team Providers Care C.O.D. Clerk Name Role Phone Rosalind Cardoso Primary Care Provider [phone] Encounter Details Date Type Department Care Team ([facility] st Contact Info) Description 06/19/2024 Orders Only [facility] [address] [place], [place] [phone] Rosalind Cardoso FNP [address] [place] [address] Type 2 diabetes mellitus with stage 3 [...] 09/04/2024 10:00 AM EST Office Visit [facility] [address] [place] [address] Rosalind Cardoso, TAMY [address] [place] [address] documented as of this encounter Procedures Procedure Name Priority Date/Time Associated Diagnosis Comments SED RATE BY MODIFIED WESTERGREN Routine 06/23/2024 10:31 AM EST Type 2 diabetes mellitus with stage 3 chronic kidney disease, with long-term current use of insulin, unspecified whether stage 3a or 3b CKD (CMS/HCC) Primary hypertension Stage 3b chronic kidney disease (CMS/HCC) 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 (CMS/HCC) PROTHROMBIN TIME-INR Routine 06/23/2024 10:31 AM EST Type 2 diabetes mellitus with stage 3 chronic kidney disease, with long-term current use of insulin, unspecified whether stage 3a or 3b CKD (CMS/HCC) Primary hypertension Stage 3b chronic kidney disease (CMS/HCC) 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 (CMS/HCC) COMPREHENSIVE METABOLIC PANEL Routine 06/23/2024 10:31 AM EST Type 2 diabetes mellitus with stage 3 chronic kidney disease, with long-term current use of insulin, unspecified whether stage 3a or 3b CKD ([facility]/HCC) Primary hypertension Stage 3b chronic kidney disease ([facility]/HCC) 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 ([facility]) documented in this encounter Results * Prothrombin Time-INR (06/23/2024 10:31 AM EST) Prothrombin Time 11.3 10.9 - 12.4 SEC [facility] INTERNATIONAL NORM RATIO 1.0 0.9 - 1.1 [facility] Comment:INTERNATIONAL NORMAL IZED RATIO [...] 3.5 Blood Venous blood specimen / Unknown 06/23/2024 10:31 AM EST 06/23/2024 10:31 AM EST Result [facility] Rosalind Cardoso [facility] LAB BLOOD ORDERABLES Final Res ult [facility] [address] [place] [phone] * (ABNORMAL) Sed Rate by Modified Westergren (06/23/2024 10:31 AM EST) Erythrocyte Sedimentation Rate 38(H) 0 - 20 MM/HR [facility] Comment:Patients with polycy themia and many hemoglobin abnormalitiesmay have depressed sed rates whereas patients with anemiamay have elevated sed rates. Blood Venous blood specimen / Unknown 06/23/2024 10:31 AM EST 06/23/2024 10:31 AM EST Rosalind MysteryDedna [employer] TECHNICIAN LAB BLOOD ORDERABLES Final Res ult [facility] [address] [place] [phone] * (ABNORMAL) Comprehensive Metabolic Panel (06/23/2024 10:31 AM EST) Sodium 134(L) 135 - 145 mmol/L [facility] Potassium 4.1 3.3 - 5.1 mmol/L [facility] Chloride 97 96 - 108 mmol/L [facility] Carbon Dioxide 27 22 - 29 mmol/L [facility] Anion Gap 14 12 - 20 [facility] Urea Nitrogen (BUN) 45(H) 9 - 16 mg/dL [facility] Creatinine, Serum 1.91(H) 0.5 - 1.4 mg/dL [facility] Estimated Glomerular Filt Rate 27 [facility] Comment:Chronic Kidney Disea se: Estimated GFR < 60 mL/min/[id number] Kidney Disease: Estimated GFR < 15 mL/min/1.73m2 Glucose 287(H) 60 - 115 mg/dL [facility] Calcium 9.1 8.4 - 10.2 mg/dL [facility] Bilirubin, Total 0.3 0.0 - 1.0 mg/dL [facility] Aspartate Amino Transferase 19 5 - 31 U/L [facility] Alanine Aminotransferase 11 0 - 31 U/L [facility] Total Protein 7.4 6.5 - 8.0 g/dL [facility] Albumin Level 3.6 3.5 - 5.0 g/dL [facility] Alkaline Phosphatase 99 39 - 117 U/L [facility] Blood Venous blood specimen / Unknown 06/23/2024 10:31 AM EST 06/23/2024 10:31 AM EST Rosalind Cardoso [employer] TECHNICIAN LAB BLOOD ORDERABLES Final Res ult Performing Organization Address [facility]/ZIP Co de Phone Number [facility] [address] [place] [phone] documented in this encounter Visit Diagnoses Diagnosis Type 2 diabetes mellitus with stage 3 chronic kidney disease, with long-term current use of insulin, unspecified whether stage 3a or 3b CKD ([facility]/HCC) Primary hypertension Unspecified essential hypertension Stage 3b chronic kidney disease ([facility]) 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 Clerk Relationship Specialty Start Date End Date Rosalind Cardoso FNP [address] [place] [phone] PCP - General Family Medicine 04/28/21 documented as of this encounter
--- OUTSIDE RECORDS SUMMARY | 2024-08-04 10:20 | XMS_ITS | Encounter Summary ---
Author Organization [employer] Address [address] [facility] 7t [place] [address] Care Team Providers Care Medical Policy Specialist Name Role Phone Rosalind Cardoso Primary Care Provider [phone] Encounter Details Date Type Department Care Team ([facility] st Contact Info) Description 12/20/2023 Orders Only [facility] MED & PEDS [address] [place], [place] [phone] Rosalind Cardoso FNP [address] [place] [address] Type 2 diabetes mellitus with stage 3 [...] Description 09/04/2024 10:00 AM EST Office Visit [facility] MED [facility] PEDS [address] [place] [address] Rosalind Cardoso, TAMY [address] [place] [address] documented as of this encounter Procedures Procedure Name Priority Date/Time Associated Diagnosis Comments CBC WITH AUTO DIFFERENTIAL Routine 12/27/2023 9:33 AM EDT Type 2 diabetes mellitus with stage 3 chronic kidney disease, with long-term current use of insulin, unspecified whether stage 3a or 3b CKD (CMS/HCC) Primary hypertension Stage 3b chronic kidney disease (CMS/HCC) 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 (CMS/HCC) SED RATE BY MODIFIED WESTERGREN Routine 12/27/2023 9:33 AM EDT Type 2 diabetes mellitus with stage 3 chronic kidney disease, with long-term current use of insulin, unspecified whether stage 3a or 3b CKD (CMS/HCC) Primary hypertension Stage 3b chronic kidney disease (CMS/HCC) 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 (CMS/HCC) C-REACTIVE PROTEIN Routine 12/27/2023 9: 33 AM EDT Type 2 diabetes mellitus with stage 3 chronic kidney disease, with long-term current use of insulin, unspecified whether stage 3a or 3b CKD (CMS/HCC) Primary hypertension Stage 3b chronic kidney disease (CMS/HCC) 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 (CMS/HCC) MAGNESIUM Routine 12/27/2023 9:33 AM EDT Type 2 diabetes mellitus with stage 3 chronic kidney disease, with long-term current use of insulin, unspecified whether stage 3a or 3b CKD (CMS/HCC) Primary hypertension Stage 3b chronic kidney disease (CMS/HCC) 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 (CMS/HCC) COMPREHENSIVE METABOLIC PANEL Routine 12/27/2023 9:33 AM EDT Type 2 diabetes mellitus with stage 3 chronic kidney disease, with long-term current use of insulin, unspecified whether stage 3a or 3b CKD (CMS/HCC) Primary hypertension Stage 3b chronic kidney disease (CMS/HCC) 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 (CMS/HCC) documented in this encounter Results * C-reactive Protein (12/27/2023 9:33 AM EDT) C Reactive Protein 0.46 < or = 0.50 mg/dL [facility] Blood Venous blood specimen / Unknown 12/27/2023 9:33 AM EDT 12/27/2023 9:33 AM EDT Rosalind Cardoso PROMOTION OFFICER LAB BLOOD ORDERABLES Final Res ult [facility] [address] [place] [phone] * (ABNORMAL) Sed Rate by Modified Javierren (12/27/2023 9:33 AM EDT) Erythrocyte Sedimentation Rate 36(H) 0 - 20 MM/HR [facility] Comment:Patients with polycy themia and many hemoglobin abnormalitiesmay have depressed sed rates whereas patients with anemiamay have elevated sed rates. Blood Venous blood specimen / Unknown 12/27/2023 9:33 AM EDT 12/27/2023 9:33 AM EDT Rosalind Cardoso [facility] LAB BLOOD ORDERABLES Final Res ult Performing Organization Address [facility] de Phone Number [facility] [address] [place] [address] [phone] * Magnesium (12/27/2023 9:33 AM EDT) Magnesium 2.2 1.6 - 2.6 mg/dL [facility] Blood Venous blood specimen / Unknown 12/27/2023 9:33 AM EDT 12/27/2023 9:33 AM EDT Rosalind Cardoso [facility] LAB BLOOD ORDERABLES Final Res ult Performing Organization Address [facility] de Phone Number [facility] [address] [place] [phone] * (ABNORMAL) Comprehensive Metabolic Panel (12/27/2023 9:33 AM EDT) Sodium 141 135 - 145 mmol/L [facility] Potassium 3.8 3.3 - 5.1 mmol/L [facility] Chloride 105 96 - 108 mmol/L [facility] Carbon Dioxide 28 22 - 29 mmol/L [facility] Anion Gap 12 12 - 20 [facility] Urea Nitrogen (BUN) 28(H) 9 - 16 mg/dL [facility] Creatinine, Serum 1.18 0.5 - 1.4 mg/dL [facility] Estimated Glomerular Filt Rate 47 [facility] Comment:NOTE: For -Am erican individuals, multiply the result by 1.210.Chronic Kidney Disease: Estimated GFR < 60 mL/min/[id number] Kidney Disease: Estimated GFR < 15 mL/min/1.73m2 Glucose 206(H) 60 - 115 mg/dL [facility] Calcium 9.3 8.4 - 10.2 mg/dL [facility] Bilirubin, Total 0.3 0.0 - 1.0 mg/dL [facility] Aspartate Amino Transferase 16 5 - 31 U/L [facility] Alanine Aminotransferase 22 0 - 31 U/L [facility] Total Protein 6.8 6.5 - 8.0 g/dL [facility] Albumin Level 3.5 3.5 - 5.0 g/dL [facility] Alkaline Phosphatase 88 39 - 117 U/L [facility] Blood Venous blood specimen / Unknown 12/27/2023 9:33 AM EDT 12/27/2023 9:33 AM EDT us Rosalind Cardoso PROMOTION OFFICER LAB BLOOD ORDERABLES Final Res ult [facility] [address] [place] [phone] * (ABNORMAL) CBC auto differential (12/27/2023 9:33 AM EDT) White Blood Count 9.2 4.8 - 10.8 X10*3/uL [facility] Red Blood Count 5.36 4.20 - 5.50 X10*6/uL [facility] Hemoglobin 10.1(L) 12.0 - 16.0 g/dl [facility] Hematocrit 32.8(L) 37.0 - 47.0 % [facility] Mean Corpuscular Volume 61.2(L) 80.0 - 98.0 fL [facility] Mean Corpuscular Hemoglobin 18.8(L) 27.0 - 33.0 pg [facility] Mean Corpuscular HGB Conc 30.8(L) 31.0 - 35.0 g/dl [facility] Red Cell Distribution Width 17.0(H) 11.0 - 16.0 % [facility] Platelet Count 292 160 - 400 X10*3/uL [facility] Mean Platelet Volume 11.0 9.4 - 12.3 fL [facility] Neutrophils Percent Auto 59.0 45 - 73 % [facility] Imm Gran Pct Auto 0.3 0.0 - 0.4 % [facility] Lymphocytes Percent Auto 28.1 20 - 40 % [facility] Monocytes Percent Auto 8.8 2 - 11 % [facility] Eosinophils Percent Auto 3.1 0 - 4 % [facility] Basophils Percent Auto 0.7 0 - 2 % [facility] NRBC Pct Auto 0.0 0.0 - 0.2 /100WBC [facility] Neutrophils Absolute Auto 5.4 2.0 - 8.3 x10*3/uL [facility] Imm Gran Abs Auto 0.03 0.00 - 0.03 X10*3/uL [facility] Lymphocytes Absolute Auto 2.6 1.2 - 4.9 X10*3/uL [facility] Monocytes Absolute Auto 0.8 0.1 - 1.2 X10*3/uL [facility] Eosinophils Absolute Auto 0.3 0.0 - 0.4 X10*3/uL [facility] Basophils Absolute Auto 0.1 0.0 - 0.2 X10*3/uL [facility] NRBC Abs Auto 0.000 0.0 - 0.012 X10*3/uL [facility] Blood Venous blood specimen / Unknown 12/27/2023 9:33 AM EDT 12/27/2023 9:33 AM EDT us Rosalind Cardoso PROMOTION OFFICER LAB BLOOD ORDERABLES Final Res ult [facility] [address] [place] [phone] documented in this encounter Visit Diagnoses Diagnosis Type 2 diabetes mellitus with stage 3 chronic kidney disease, with long-term current use of insulin, unspecified whether stage 3a or 3b CKD ([facility]) Primary hypertension Unspecified essential hypertension Stage 3b chronic kidney disease ([facility]) 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 ([facility]) documented in this encounter Additional Health Concerns Assessment Noted Time PHQ-9 Depression Total Score: 0 12/26/19 23 1:09 PM EDT documented as of this encounter Care Teams Medical Policy Specialist Relationship Specialty Start Date End Date Rosalind Cardoso FNP [address] [place] [phone] PCP - General Family Medicine 04/28/21 documented as of this encounter
--- OUTSIDE RECORDS SUMMARY | 2024-08-04 10:20 | XMS_ITS | Encounter Summary ---
Author Organization [employer] Address [address] [facility] 7t [place] [address] Care Team Providers Care Filter Filler Name Role Phone Rosalind Cardoso Primary Care Provider [phone] Encounter Details Date Type Department Care Team ([facility] st Contact Info) Description 01/03/2024 Orders Only [facility] MED & PEDS [address] [place], [place] [phone] Rosalind Cardoso FNP [address] [place] [address] Type 2 diabetes mellitus with stage 3 [...] Description 09/04/2024 10:00 AM EST Office Visit [facility] [address] [place] [address] Rosalind Cardoso, TAMY [address] [place] [address] documented as of this encounter Procedures Procedure Name Priority Date/Time Associated Diagnosis Comments CBC WITH AUTO DIFFERENTIAL Routine 01/17/2024 12:30 PM EDT Type 2 diabetes mellitus with stage 3 chronic kidney disease, with long-term current use of insulin, unspecified whether stage 3a or 3b CKD (CMS/HCC) Primary hypertension Stage 3b chronic kidney disease (CMS/HCC) 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 (CMS/HCC) MAGNESIUM Routine 01/17/2024 12:30 PM EDT Type 2 diabetes mellitus with stage 3 chronic kidney disease, with long-term current use of insulin, unspecified whether stage 3a or 3b CKD (CMS/HCC) Primary hypertension Stage 3b chronic kidney disease (CMS/HCC) 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 (CMS/HCC) COMPREHENSIVE METABOLIC PANEL Routine 01/17/2024 12:30 PM EDT Type 2 diabetes mellitus with stage 3 chronic kidney disease, with long-term current use of insulin, unspecified whether stage 3a or 3b CKD ([facility]) Primary hypertension Stage 3b chronic kidney disease ([facility]) 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 ([facility]) documented in this encounter Results * Magnesium (01/17/2024 12:30 PM EDT) Magnesium 2.4 1.6 - 2.6 mg/dL [facility] Blood Venous blood specimen / Unknown 01/17/2024 12:30 PM EDT 01/17/2024 12:30 PM EDT us Rosalind Cardoso DIRECTOR OF SCOUT WORK LAB BLOOD ORDERABLES Final Res ult [facility] [address] [place] [address] [phone] * (ABNORMAL) Comprehensive Metabolic Panel (01/17/2024 12:30 PM EDT) Sodium 141 135 - 145 mmol/L [facility] Potassium 4.2 3.3 - 5.1 mmol/L [facility] Chloride 106 96 - 108 mmol/L [facility] Carbon Dioxide 26 22 - 29 mmol/L [facility] Anion Gap 13 12 - 20 [facility] Urea Nitrogen (BUN) 30(H) 9 - 16 mg/dL [facility] Creatinine, Serum 1.24 0.5 - 1.4 mg/dL [facility] Estimated Glomerular Filt Rate 44 [facility] Comment:NOTE: For -Am erican individuals, multiply the result by 1.210.Chronic Kidney Disease: Estimated GFR < 60 mL/min/[id number] Kidney Disease: Estimated GFR < 15 mL/min/1.73m2 Glucose 165(H) 60 - 115 mg/dL [facility] Calcium 9.7 8.4 - 10.2 mg/dL [facility] Bilirubin, Total 0.4 0.0 - 1.0 mg/dL [facility] Aspartate Amino Transferase 14 5 - 31 U/L [facility] Alanine Aminotransferase 14 0 - 31 U/L [facility] Total Protein 6.8 6.5 - 8.0 g/dL [facility] Albumin Level 3.5 3.5 - 5.0 g/dL [facility] Alkaline Phosphatase 79 39 - 117 U/L [facility] Blood Venous blood specimen / Unknown 01/17/2024 12:30 PM EDT 01/17/2024 12:30 PM EDT us Rosalind Janae DIRECTOR OF SCOUT WORK LAB BLOOD ORDERABLES Final Res ult [facility] [address] [place] [phone] * (ABNORMAL) CBC auto differential (01/17/2024 12:30 PM EDT) White Blood Count 8.3 4.8 - 10.8 X10*3/uL [facility] Red Blood Count 4.91 4.20 - 5.50 X10*6/uL [facility] Hemoglobin 9.4(L) 12.0 - 16.0 g/dl [facility] Hematocrit 30.6(L) 37.0 - 47.0 % [facility] Mean Corpuscular Volume 62.3(L) 80.0 - 98.0 fL [facility] Mean Corpuscular Hemoglobin 19.1(L) 27.0 - 33.0 pg [facility] Mean Corpuscular HGB Conc 30.7(L) 31.0 - 35.0 g/dl [facility] Red Cell Distribution Width 20.2(H) 11.0 - 16.0 % [facility] Platelet Count 302 160 - 400 X10*3/uL [facility] Mean Platelet Volume 10.6 9.4 - 12.3 fL [facility] Neutrophils Percent Auto 64.0 45 - 73 % [facility] Imm Gran Pct Auto 0.5(H) 0.0 - 0.4 % [facility] Lymphocytes Percent Auto 24.0 20 - 40 % [facility] Monocytes Percent Auto 8.2 2 - 11 % [facility] Eosinophils Percent Auto 2.9 0 - 4 % [facility] Basophils Percent Auto 0.4 0 - 2 % [facility] NRBC Pct Auto 0.0 0.0 - 0.2 /100WBC [facility] Neutrophils Absolute Auto 5.3 2.0 - 8.3 x10*3/uL [facility] Imm Gran Abs Auto 0.04(H) 0.00 - 0.03 X10*3/uL [facility] Lymphocytes Absolute Auto 2.0 1.2 - 4.9 X10*3/uL [facility] Monocytes Absolute Auto 0.7 0.1 - 1.2 X10*3/uL [facility] Eosinophils Absolute Auto 0.2 0.0 - 0.4 X10*3/uL [facility] Basophils Absolute Auto 0.0 0.0 - 0.2 X10*3/uL [facility] NRBC Abs Auto 0.000 0.0 - 0.012 X10*3/uL [facility] Blood Venous blood specimen / Unknown 01/17/2024 12:30 PM EDT 01/17/2024 12:30 PM EDT us Rosalind Cardoso DIRECTOR OF SCOUT WORK LAB BLOOD ORDERABLES Final Res ult [facility] [address] [place] [phone] documented in this encounter Visit Diagnoses [...] documented as of this encounter Care Teams Filter Filler Relationship Specialty Start Date End Date Rosalind Cardoso FNP [address] [place] [address] PCP - General Family Medicine 04/28/21 documented as of this encounter
--- OUTSIDE RECORDS SUMMARY | 2024-08-04 10:20 | XMS_ITS | Encounter Summary ---
Author Organization [employer] Address [address] [facility] 7t [place] [address] Care Team Providers Care Almond Blancher Hand Name Role Phone Rosalind Cardoso Primary Care Provider [phone] Encounter Details Date Type Department Care Team (Late st Contact Info) Description 01/24/2024 Orders Only [facility] [address] [place] [address] Rosalind Cardoso FNP [address] [place] [address] Type 2 diabetes mellitus with stage 3 [...] [facility] [address] [place], [place] [phone] Rosalind Cardoso FNP [address] [place], [place] [phone] documented as of this encounter Procedures Procedure Name Priority Date/Time Associated Diagnosis Comments PROTHROMBIN TIME-INR Routine 05/29/2024 2:18 PM EST Type 2 diabetes mellitus with stage 3 chronic kidney disease, with long-term current use of insulin, unspecified whether stage 3a or 3b CKD ([facility]/HCC) Myalgia MAGNESIUM Routine 05/29/2024 2:18 PM EST Type 2 diabetes mellitus with stage 3 chronic kidney disease, with long-term current use of insulin, unspecified whether stage 3a or 3b CKD ([facility]/HCC) Myalgia documented in this encounter Results * Magnesium (05/29/2024 2:18 PM EST) Magnesium 2.0 1.6 - 2.6 mg/dL [facility] Blood Venous blood specimen / Unknown 05/29/2024 2:18 PM EST 05/29/2024 2:18 PM EST Rosalind STARKSP LAB BLOOD ORDERABLES Final Res ult Performing Organization Address [facility] Co de Phone Number LABS [address] [place] [phone] * Prothrombin Time-INR (05/29/2024 2:18 PM EST) Prothrombin Time 11.1 10.9 - 12.4 SEC [facility] INTERNATIONAL NORM RATIO 1.0 0.9 - 1.1 LABS Comment:INTERNATIONAL NORMAL IZED RATIO (INR) REFERENCE [...] 3.5 Blood Venous blood specimen / Unknown 05/29/2024 2:18 PM EST 05/29/2024 2:18 PM EST Rosalind Cardoso [facility] BLOOD ORDERABLES Final Res ult Performing Organization Address [facility] Co de Phone Number LABS [address] [place] [phone] documented in this encounter Visit Diagnoses [...] documented as of this encounter Care Teams Almond Blancher Hand Relationship Specialty Start Date End Date Rosalind Cardoso FNP [address] [place] [phone] PCP - General Family Medicine 04/28/21 documented as of this encounter
--- OUTSIDE RECORDS SUMMARY | 2024-08-04 10:20 | XMS_ITS | Encounter Summary ---
Author Organization [employer] Address [address] [facility] [address] [place] [address] Care Team Providers Care Apple Solutions Consultant Name Role Phone Rosalind Cardoso Primary Care Provider [phone] Reason for Visit * Reason Onset Date Comments Durable Medical Equipment 10/25/2022 Encounter Details Date Type Department Care Team (Late st Contact Info) Description 10/25/2022 Telephone [facility] MED[facility] [address] [place] [address] Rosalind Cardoso FNP [address] [place] [address] Durable Medical Equipment Social History Tobacco Use Types Packs/Day Years [...] encounter Miscellaneous Notes * Telephone Encounter - Ina Lobo - 10/25/2022 2:04 PM EDT Script for tub transfer bench generated for signature * Telephone Encounter - Suzette Weaver - 10/25/2022 11:25 AM EDT TC from [facility] requesting a script for a Tub transfer bench. Please contact at [phone] documented in this encounter Plan of Treatment Upcoming Encounters Date Type Department Care Team (Late st Contact Info) Description 09/04/2024 10:00 AM EST Office Visit [facility] & PEDS [address] [place] [address] Rosalind Cardoso FNP [address] [place] [address] documented as of this encounter Visit Diagnoses Not on filedocumented in this encounter Care Teams [employer] Consultant Relationship Specialty Start Date End Date Rosalind Cardoso FNP [address] [place] [phone] PCP - General Family Medicine 04/28/21 documented as of this encounter
--- OUTSIDE RECORDS SUMMARY | 2024-08-04 10:20 | XMS_ITS | Data Portability ---
Author Organization [facility] [place] - [facility] Address [address] [place] [phone] Care Team Providers Care Life Skills Trainer Name Role Phone [facility] Referring Provider [phone] [employer] Referring Provider Assessment Encounter Date Assessment Date Assessment LastModified by Organization Details LastModified Time 07/24/2023 07/24/2023 I provided real -time medical direction via phone for this encounter, and was available for additional phone based assistance as needed. I have reviewed and agree with the Assessment and Plan as documented by the Multisensor Intelligence Officer. Patient given the opportunity to ask questions. as per above, patient with known anemia receiving Procrit injections monthly. She was unable to get her blood work done last week and requested a visit to check her H&H today. She is at her baseline 10 and 30. she will continue to to keep her appointment at the end of the month for Procrit injection. And otherwise continue with her current plan. We discussed the diagnostic uncertainty of home visits and the risk associated with this. In this case, the patient and I felt this to be an acceptable and reasonable amount of risk given the benefit of avoiding an ED visit. We discussed the need to seek care urgently/emerg ently in the setting of any new or worsening serious symptoms. [email or web address] Not available 07/24/2023 12:59:36 Plan of Treatment Reminders Order Date Submit Date Provider Last Modified By Organization Details Last Modified Time Details Appointments None recorded. Lab hemoglobin + hematocrit, blood 2023 024 [facility], [address] [place] [address], [phone], 09:28:43 Referral None recorded. Procedures None recorded. Surgeries None recorded. Imaging None recorded. Medication Orders None recorded. Patient TargetsNo targets recorded. Patient InstructionsNo instructions recorded. Reason for Referral None Reported. Results Created Date Observation Date Name Description Value Unit Range Abnormal Flag Note LastModifiedBy Organization Detail LastModifiedTime Result Notes None recorded. Medical Equipment None Reported. Medications Name Sig Start Date Stop Date Status Note LastModified by Organization Details LastModified Time cyclobenzapr ine 10 mg tablet TAKE 1 TABLET BY MOUTH THREE TIMES DAILY NEEDED FOR MUSCLE SPASMS active Not Available Not Available No t Available pioglitazone 15 mg tablet TAKE 1 TABLET BY MOUTH EVERY MORNING active Not Available Not Available No t Available atorvastatin 40 mg tablet TAKE 1 TABLET BY MOUTH EVERY MORNING active Not Available Not Available No t Available silver sulfadiazine 1 % topical cream APPLY TOPICALLY TO AFFECTED AREA(S) DIRECTED BY [facility] active Not Available Not Available Not Available doxycycline hyclate 100 mg capsule TAKE 1 CAPSULE BY MOUTH TWICE DAILY FOR 10 DAYS active Not Available Not Available No t Available cefuroxime axetil 250 mg tablet TAKE 1 TABLET BY MOUTH TWICE DAILY FOR 10 DAYS active Not Available Not Available No t Available lisinopril 20 mg tablet TAKE 1 TABLET BY MOUTH EVERY MORNING active Not Available Not Available No t Available bacitracin 500 unit/gram topical ointment APPLY TO WOUND ON FEET TWICE DAILY active Not Available Not Available No t Available clopidogrel 75 mg tablet TAKE 1 TABLET BY MOUTH EVERY MORNING active Not Available Not Available No t Available aspirin 81 mg tablet,delay ed release TAKE 1 TABLET BY MOUTH EVERY MORNING active Not Available Not Available No t Available acetaminophe n 500 mg tablet TAKE 2 TABLETS BY MOUTH EVERY 8 HOURS NEEDED FOR PAIN active Not Available Not Available No t Available lidocaine-pr ilocaine 2.5 %-2.5 % topical cream APPLY TOPICALLY TO AFFECTED AREA(S) ONCE DAILY NEEDED FOR PAIN active Not Available Not Available No t Available cefadroxil 500 mg capsule TAKE 1 CAPSULE BY MOUTH EVERY TWELVE HOURS active Not Available Not Available No t Available terbinafine HCl 250 mg tablet TAKE 1 TABLET BY MOUTH DAILY active Not Available Not Available Not Available dexamethason e 2 mg tablet TAKE 3 TABLETS BY MOUTH EVERY DAY FOR 7 DAYS active Not Available Not Available No t Available cephalexin 500 mg capsule TAKE 1 CAPSULE BY MOUTH EVERY 6 HOURS FOR 10 DAYS active Not Available Not Available No t Available pantoprazole 40 mg tablet,delay ed release TAKE 1 TABLET BY MOUTH AT BEDTIME active Not Available Not Available No t Available metformin 1,000 mg tablet TAKE 1 TABLET BY MOUTH TWICE DAILY IN THE MORNING AND IN THE EVENING WITH MEALS active Not Available Not Available N ot Available lidocaine 5 % topical patch APPLY 1 PATCH TOPICALLY TO SKIN, LEAVE ON FOR 12 HOURS AND OFF FOR 12 HOURS DIRECTED. NEEDED. active Not Available Not Available N ot Available docusate sodium 100 mg capsule TAKE 1 CAPSULE BY MOUTH EVERY DAY NEEDED FOR CONSTIPATIO N active Not Available Not Available No t Available omeprazole 20 mg capsule,tonny yed release TAKE 1 CAPSULE BY MOUTH AT BEDTIME active Not Available Not Available No t Available lisinopril 20 mg-hydrochlo rothiazide 25 mg tablet TAKE 1 TABLET BY MOUTH EVERY MORNING active Not Available Not Available No t Available folic acid 1 mg tablet TAKE 1 TABLET BY MOUTH EVERY MORNING active Not Available Not Available No t Available clotrimazole 1 % topical cream APPLY TO AFFECTED AREA(S) AND SURROUNDING AREA(S) TWICE DAILY IN THE MORNING AND EVENING active Not Available Not Available No t Available ezetimibe 10 mg tablet TAKE 1 TABLET BY MOUTH EVERY MORNING active Not Available Not Available No t Available Alcohol Prep Pads TEST BLOOD SUGAR THREE TIMES DAILY active Not Available Not Available Not Available UltiCare Pen Needle 31 gauge x 5/16 USE ONCE DAILY DIRECTED active Not Available Not Available No t Available cholecalcife rol (vitamin D3) 25 mcg (1,000 unit) tablet TAKE 1 TABLET BY MOUTH EVERY MORNING active Not Available Not Available No t Available FreeStyle Lite Strips TEST BLOOD SUGAR THREE TIMES DAILY active Not Available Not Available Not Available Lantus Solostar U-100 Insulin 100 unit/mL (3 mL) subcutaneous pen INJECT 40 UNITS SUBCUTANEOU SLY ONCE DAILY WITH BREAKFAST active Not Available Not Available No t Available FreeStyle [place] Lite kit USE TO TEST BLOOD SUGAR DIRECTED active Not Available Not Available Not Available blood pressure test kit-large cuff USE TO CHECK BLOOD PRESSURE DAILY AND NEEDED FOR SYMPTOMS active Not Available Not Available No t Available TRUEplus Lancets 33 gauge USE TO TEST BLOOD SUGAR THREE TIMES DAILY active Not Available Not Available No t Available Invokana 100 mg tablet TAKE 1 TABLET BY MOUTH DAILY BEFORE THE FIRST MEAL OF THE DAY active Not Available Not Available N ot Available Jardiance 10 mg tablet TAKE 1 TABLET BY MOUTH EVERY MORNING active Not Available Not Available No t Available Jardiance 25 mg tablet TAKE 1 TABLET BY MOUTH EVERY MORNING active Not Available Not Available No t Available Vitals Date Recorded Oxygen saturation Oxygen saturation in Arterial blood by Pulse oximetry Respiratory rate Body temperature Heart rate Systolic blood pressure Diastolic blood pressure Provider Name and Address Organization Details Last Updated DateTime 4 98 % 98 % 16 /min 98.5 [degF] 86 /min 166 mm[Hg] 84 mm[Hg] Not Available [facility] 4 12:58:02 Date Recorded Body temperature Oxygen saturation Oxygen saturation in Arterial blood by Pulse oximetry Heart rate Respiratory rate Systolic blood pressure Diastolic blood pressure Provider Name and Address Organization Details Last Updated DateTime 2 98.2 [degF] 100 % 100 % 108 /min 16 /min 132 mm[Hg] 81 mm[Hg] Not Available [employer] [facility] 2 16:51:45 Social History None recorded. Functional Status None recorded. Mental Status None recorded. Family History Nothing Reported. Medical History No medical history recorded. Gynecological HistoryNo gynecological history recorded. Obstetrics History GPAL:G 0 P 0 0 0 0 Past Encounters Encounter ID Performer Location Encounter Start Date Encounter Closed Date Diagnosis/Indication Diagnosis SNOMED-CT Code Diagnosis ICD10 Code Diagnosis Note [id number] Anish Rocha MD [facility] [address] [place] [phone] 05/04/2022 16:51:33 05/08/2022 15:59:32 Chest pain 78459638 R07.9 Chronic. Symptoms for months. EKG with no ST-T wave changes. Advised to f/u with primary care team for abdominal US/ECHO and possible CT chest given chronicity of symtpoms [id number] Anny Whalen MD [facility] [address] [place] [phone] 07/24/2023 12:57:53 07/25/2023 09:42:01 Anemia 459544716 D64.9 Health Concerns Section Related Observation LastModified by Organization Detai ls LastModified Time None Recorded Concern Status LastModified by Organization Details LastModified Time None Recorded Advance Directives Directive None Recorded Payers Encounter Date Sequence Insurance Name Policy Number Policy Penn Covered Member ID Penn Member ID Guarantor Name 05/04/2022 1 [facility] - DOS PRIOR TO 2022 - DUAL ELIGIBLE (MEDICARE REPLACEMENT/ADV ANTAGE - HMO) Mitra Parish [id number] Mitra Parish 07/24/2023 1 [facility] - DOS ON OR AFTER 2022 - DUAL ELIGIBLE - DETENTION OPTIONS AND ONE CARE (MEDICARE REPLACEMENT/ADV ANTAGE - HMO) Mitra Parish [id number] Mitra Parish Notes Date Note Type Note Provider Name and Address Organization Details Recorded Time 05/04/2022 text/html HPI: Dx. Chronic Kidney disease Patient reports having pain on upper right abdomen radiating to the chest, pain intermittent. No nausea, vomiting fever , or GAONA. Pt states pain is in middle of chest. Not radiating to either side. Schedule for abd US next week. Pt declined ER. Ok with [facility] assessment referral. .................. .................. .................. .................. .................. .................. .................. ............... [facility] Nursing Assessment: Comments: Member stated that the pain has [...] to call 911 if symptoms increase > [email or web address] .................. .................. .................. .................. .................. .................. .................. ............... Multisensor Intelligence Officer Note: Patient chief complaint of epigastric pain. Patient states ongoing pain for one month following angiogram. Patient states the pain begins at her ribs, goes through her lungs, and into her breasts. patient vitals WNL, 108 HR noted. 12 lead EKG performed, showing 108 HR and occasional PVC. [facility] contacted. Patient instructed to follow up with PCP for sonography. Education given, red flags discussed. .................. .................. .................. .................. .................. .................. .................. ............... Disposition: Fulfilled Anish Rocha MD [address] [place] [address],[address] [facility], [place], [phone], [employer] [facility] [employer] 05/05/2022 13:11:58 07/24/2023 text/html HPI: Patient with history of CKD stage 3b , microcytic anemia. follows with Dr. Mattson not seen in > 2 months for procrit injections. Last H&H in chart 06/10/23 Hgb 9.9 HCT 33.6. Patient is an amputee unable to get out to appt. Has pending HOME MANAGER but not in place at this time. Today with 4 days of weakness, no appetite, nausea and dizziness. .................. .................. .................. .................. .................. .................. .................. ............... [facility] Nurse Triage Notes (Rosalind Vazquez): Comments: No further information needed to process visit .................. .................. .................. .................. .................. .................. .................. ............... Baseline Information: Baseline Hb: 9.9 g/dL Baseline HCt: 33% Baseline Creatinine: 1.2 mg/dL .................. .................. .................. .................. .................. .................. .................. ............... Multisensor Intelligence Officer Note From Maximus Neal: Dispatched to the call address for the female who has been sick and not able to get her Procrit injections and needs to have HH checked to know if she can wait until the end of the month or needs to go tomorrow. Pt states she has been sick but is feeling better now. Pt was found opening door, CAOx4, airway open and patent, breathing non labored, able to speak in full sentences, -JVD, -HEENT, skin PWD with good turgor, abd soft non tender/distended, pupils PERRL. Blood draw from [facility] with 23g butterfly. BMP. HCT 33, Hb 11.2. [facility] consulted. Pt advised of results. Red flags discussed. ALL times are approx. .................. .................. .................. .................. .................. .................. .................. ............... Disposition: Fulfilled Anny Whalen MD [address] [place] [address],[address] [facility], [place], [phone], MANJU TEIXEIRA 07/24/2023 12:59:58 OBGyn Episode No OBEpisode recorded.
--- OUTSIDE RECORDS SUMMARY | 2024-08-04 10:20 | XMS_ITS | Encounter Summary ---
Author Organization [employer] Address [address] [facility] [address] [place] [address] Care Team Providers Care Tank Cleaning Supervisor Name Role Phone Rosalind Cardoso Primary Care Provider [phone] Encounter Details Date Type Department Care Team (Late st Contact Info) Description 01/10/2024 Orders Only [facility] MEDIC[facility] [address] [place] [address] Rosalind Cardoso FNP [address] [place] [address] Type 2 diabetes mellitus with stage 3 [...] 09/04/2024 10:00 AM EST Office Visit [facility] & PEDS [address] [place], [place] [phone] Rosalind Cardoso FNP [address] [place] [address] documented as of this encounter Procedures Procedure Name Priority Date/Time Associated Diagnosis Comments PROTHROMBIN TIME-INR Routine 01/17/2024 12:30 PM EDT Type 2 diabetes mellitus with stage 3 chronic kidney disease, with long-term current use of insulin, unspecified whether stage 3a or 3b CKD ([facility]) Myalgia documented in this encounter Results * Prothrombin Time-INR (01/17/2024 12:30 PM EDT) Prothrombin Time 11.4 11.1 - 13.3 [facility] INTERNATIONAL NORM RATIO 0.9 0.9 - 1.1 [facility] Comment:INTERNATIONAL NORMAL IZED RATIO (INR) [...] 3.5 Blood Venous blood specimen / Unknown 01/17/2024 12:30 PM EDT 01/17/2024 12:30 PM EDT Rosalind MORELOS LAB BLOOD ORDERABLES Final Res ult [facility] [address] [place] [address] [phone] documented in this encounter Visit Diagnoses [...] documented as of this encounter Care Teams Tank Cleaning Supervisor Relationship Specialty Start Date End Date Rosalind Cardoso FNP [address] [place] [phone] PCP - General Family Medicine 04/28/21 documented as of this encounter
--- OUTSIDE RECORDS SUMMARY | 2024-08-04 10:20 | XMS_ITS | Encounter Summary ---
Author Organization [employer] Address [address] [place] [address] [address] [place] [address] Care Team Providers Care Tobacco Dipper Name Role Phone Rosalind Cardoso Primary Care Provider [phone] Reason for Visit * Reason Comments Med Refill Encounter Details Date Type Department Care Team ([facility] Contact Info) Description 10/23/[address] [facility] MEDICINE [address] [place] [address] Name, MD Jaiden [address] [place] [address] Social History Tobacco Use Types Packs/Day Years Used Date Smoking Tobacco: Never Smokeless Tobacco: Never Alcohol Use Standard Drinks/Week Comments Never 0 (1 standard drink = 0.6 oz pur e alcohol) Comments Unknown Sex and Gender Information Value [...] suspected to have Coronavirus/COVID-19? No / Unsure 10/16/2022 8:30 AM EDT documented as of this encounter Plan of Treatment Upcoming Encounters Date Type Department Care Team ([facility] Contact Info) Description 09/04/2024 10:00 AM EST Office Visit [facility] PEDS [address] [place], [place] [phone] Rosalind Cardoso FNP [address] [place] [address] documented as of this encounter Visit Diagnoses Not on filedocumented in this encounter Care Teams Tobacco Dipper Relationship Specialty Start Date End Date Rosalind Cardoso FNP [address] [place] [address] PCP - General Family Medicine 04/28/21 documented as of this encounter
--- OUTSIDE RECORDS SUMMARY | 2024-08-04 10:20 | XMS_ITS | Clinical Summary ---
Author Organization [facility] Address [address] [facility] [address] [place] [address] Phone Care Team Providers Care Division Commander Name Role Phone Rosalind Cardoso TAMY Primary Care Provider [phone] Allergies No known active allergies Medications aspirin (ST YIN) 81 MG EC tablet Take 1 tablet by mouth 1 (one) time each day Active atorvastatin (LIPITOR) 40 MG tablet Take 40 mg by mouth 1 (one) time each day 07/18/2021 Active cholecalciferol (VITAMIN D-3) 25 MCG (1000 UT) tablet Take 1,000 Units by mouth 1 (one) time each day 07/18/2021 Active ezetimibe (ZETIA) 10 MG tablet Take 10 mg by mouth 1 (one) time each day 06/20/2021 Active Lantus SoloStar 100 UNIT/ML injection every night 07/18/2021 Active metFORMIN (GLUCOPHAGE) 1000 MG tablet Take 1,000 mg by mouth every morning and evening 06/20/2021 Active pioglitazone (ACTOS) 15 MG tablet Take 15 mg by mouth 1 (one) time each day 06/20/2021 Active isosorbide dinitrate (ISORDIL) 10 MG tablet Take 10 mg by mouth in the morning and 10 mg in the evening and 10 mg before bedtime. Active lisinopril 10 MG tabletIndication s:Hypertension,P roteinuric Diabetic Nephropathy Take 10 mg by mouth 1 (one) time each day Active furosemide (LASIX) 80 MG tabletIndication s:Edema,Heart Failure Take 80 mg by mouth 1 (one) time each day Active Active Problems Problem Noted Date Diagnosed Date Fibromyalgia 05/14/2023 07/04/2023 Overview (07/04/2023): Last Assessment & Plan: ENT appt scheduled 05/15/23 ED/urgent care precautions reviewed Chronic kidney disease, stage 2 (mild) 3 Proteinuria 12/19/2022 Vitamin D deficiency 10/22/2022 07/04/2023 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 Borden 09/01/22 at [facility] -Indication: gangrene and ulcers of the left foot, charcot foot, and OM Last Assessment & Plan: -DME for RW requested - 2 wheels, no seat -DME for hospital bed pending Supraventricular tachycardia 08/01/2022 Overview (12/17/2022): -Noted incidentally during hospital admission 05/12-05/17/22 -Metoprolol succ increased to 100mg daily during recent hospitalization -Following with Cardiology for SVT and persistent chest discomfort Last Assessment & Plan: -Reporting intermittent symptoms of low and high pulse. Pulse Ox sent to pharmacy, Plan to track at home and call Cards for sooner follow up appt -ED precautions reviewed Patient encounter status 06/20/2022 Overview (12/17/2022): Last Assessment & Plan: -Optometry: N[facility]OR November 2021 -Dental: [facility] dental clinic -Pap: reports last 2019 and believes results were normal, referred to UroGYN -Colorectal CA screening: iFOBT neg 12/18/21, due December 2022 -Mammogram: BIRADS 3 on 01/16/22, due Jul 2022 -Outstanding vaccines: influenza, Tdap, Shingrix, PCV20, COVID ?? [facility] Section Supervisor Osi: plan to schedule follow up appts the following specialists: ?? [facility] ?? [facility] ?? [facility] ?? [facility] Cards ?? 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 Vigil in 10/2021. -Per last consult note, stable from vascular/arterial perspective and hopeful will be able to heal wounds -Plavix DC Apr 2022, continues on lifelong aspirin Last Assessment & Plan: Pt reports upcoming follow up planned with Vascular for repeat scans Essential hypertension 08/14/2021 Type 2 diabetes mellitus wit h diabetic chronic kidney disease 08/14/2021 Renal failure syndrome 08/14/2021 Beta thalassemia trait 10/09/2018 Second degree uterine prolapse 10/09/2018 Hypercholesterolemia 08/12/2017 Microcytic anemia 08/12/2017 Osteoarthritis of knee 08/12/2017 Resolved Problems Problem Noted Date Diagnosed Date Resolved Date Blood urea outside reference range 08/14/2021 10/02/2021 Family History Medical History Relation Comments Diabetes Mother Stroke Mother Relation Status Comments Mother Social History Tobacco Use Types Packs/Day Years Used Date Smoking Tobacco: Never Cigarettes Qu it: 07/08/1993 Smokeless Tobacco: Never Tobacco Cessation:Counseling Given: No Alcohol Use Standard Drinks/Week Comments No 0 (1 standard drink = 0.6 oz pur e alcohol) Comments Unknown Sex and Gender Information Value Date Recorded Sex Assigned at Not on file Legal Sex Female 4:45 PM EST Gender Identity Not on file Sexual Orientation Not on file Last Filed Vital Signs Vital Sign Reading Time Taken Comments Blood Pressure 130/66 11/12/2023 1:43 PM EDT Pulse 81 11/12/2023 1:24 PM EDT Temperature - - Respiratory Rate - - Oxygen Saturation 94% 12/19/2022 1:22 PM EDT Inhaled Oxygen Concentration - - Weight 99.8 kg (220 lb) 11/12/2023 1:24 PM EDT Height 152.4 cm (5') 12/19/2022 1:22 PM EDT Body Mass Index 42.97 12/19/2022 1:22 PM EDT Plan of Treatment Health Maintenance Due Date Last Done Comments Breast Cancer Screening 1965 Pneumococcal Vaccine: Pediatrics (0 to 5 Years) and At-Risk Patients (6 to 64 Years) (1 of 2 - PCV) 1969 Colorectal Cancer Screening: Annual FOBT 2012 Colorectal Cancer Screening: Colonoscopy 2012 Colorectal Cancer Screening: Sigmoidoscopy 2012 Diabetes: Ophthalmology Exam 08/08/2020 Diabetes: Pedal Pulse Checked 08/08/2020 Diabetes: Sensory Foot Exam 08/08/2020 Diabetes: Visual Foot Exam 08/08/2020 Diabetes: Hemoglobin A1C 01/02/202410/01/ 024, 04/12/2023, 09/26/2022 Influenza Vaccine (#1) 2024 Hepatitis B Vaccine Aged Out No longe r eligible based on patient's age to complete this topic Procedures Procedure Name Priority Date/Time Associated Diagnosis Comments EXT RESULT ENTRY Routine 07/07/2024 EXT RESULT ENTRY Routine 06/23/2024 from Last 3 Months Results * (ABNORMAL) EXT RESULT ENTRY (07/07/2024) Only the most recent of2 resultswithin the time period is included. Sodium 135(A) 137 - 147 Potassium 3.7 3.4 - 5.5 Carbon Dioxide 25 mmol/L BUN 47(A) 4 - 21 mg/dL Creatinine 1.54(A) 0.50 - 1.10 mg/dL Calcium 9.6 8.7 - 10.7 mg/dL eGFR Non-Afr Tanzanian 34 07/07/2024 us Historical Provider LAB BLOOD ORDERABLES Margy l Result from Last 3 Months Insurance ([id number]) ([id number]) Care Teams Division Commander Relationship Specialty Start Date End Date Rosalind Cardoso FNP [address] [place] [address] PCP - General 11/12/23
--- OUTSIDE RECORDS SUMMARY | 2024-08-04 10:20 | XMS_ITS | Encounter Summary ---
Author Organization [employer] Address [address] [facility] [address] [place] [address] Care Team Providers Care Coremaker Supervisor Name Role Phone Rosalind Cardoso Primary Care Provider [phone] Encounter Details Date Type Department Care Team (Late st Contact Info) Description 12/13/2023 Orders Only [facility] MED[facility] [address] [place] [address] Rosalind Cardoso FNP [address] [place] [address] Type 2 diabetes mellitus with stage 3 [...] Description 09/04/2024 10:00 AM EST Office Visit [facility] [address] [place], [place] [phone] Rosalind Cardoso FNP [address] [place] [address] documented as of this encounter Procedures Procedure Name Priority Date/Time Associated Diagnosis Comments CBC WITH AUTO DIFFERENTIAL Routine 12/13/2023 8:52 AM EDT Type 2 diabetes mellitus with stage 3 chronic kidney disease, with long-term current use of insulin, unspecified whether stage 3a or 3b CKD ([facility]) Myalgia B TYPE NATRIURETIC PEPTIDE (BNP) Routine 12/13/2023 8:52 AM EDT Type 2 diabetes mellitus with stage 3 chronic kidney disease, with long-term current use of insulin, unspecified whether stage 3a or 3b CKD ([facility]) documented in this encounter Results * (ABNORMAL) B Type Natriuretic Peptide (BNP) (12/13/2023 8:52 AM EDT) B Type Natriuretic Peptide 1,216(H) <100 pg/mL [facility] Comment:For those patients w ho are being treated with Natrecor(nesiritide, recombinant BNP), BNP testing should beperformed at least two hours post treatment in order toensure that only endogenous levels of BNP are detected. 12/13/2023 8:52 AM EDT 12/13/2023 8:52 AM EDT us Generic External Data Provider LAB BLOOD ORDERAB LES Final Result [facility] [address] [place] [address] [phone] * (ABNORMAL) CBC auto differential (12/13/2023 8:52 AM EDT) White Blood Count 9.1 4.8 - 10.8 X10*3/uL [facility] Red Blood Count 6.02(H) 4.20 - 5.50 X10*6/uL [facility] Hemoglobin 11.4(L) 12.0 - 16.0 g/dl [facility] Hematocrit 37.7 37.0 - 47.0 % [facility] Mean Corpuscular Volume 62.6(L) 80.0 - 98.0 fL [facility] Mean Corpuscular Hemoglobin 18.9(L) 27.0 - 33.0 pg [facility] Mean Corpuscular HGB Conc 30.2(L) 31.0 - 35.0 g/dl [facility] Red Cell Distribution Width 17.2(H) 11.0 - 16.0 % [facility] Platelet Count 285 160 - 400 X10*3/uL [facility] Mean Platelet Volume 10.8 9.4 - 12.3 fL [facility] Neutrophils Percent Auto 51.6 45 - 73 % [facility] Imm Gran Pct Auto 0.4 0.0 - 0.4 % [facility] Lymphocytes Percent Auto 36.9 20 - 40 % [facility] Monocytes Percent Auto 7.7 2 - 11 % [facility] Eosinophils Percent Auto 2.8 0 - 4 % [facility] Basophils Percent Auto 0.6 0 - 2 % [facility] NRBC Pct Auto 0.0 0.0 - 0.2 /100WBC [facility] Neutrophils Absolute Auto 4.7 2.0 - 8.3 x10*3/uL [facility] Imm Gran Abs Auto 0.04(H) 0.00 - 0.03 X10*3/uL [facility] Lymphocytes Absolute Auto 3.3 1.2 - 4.9 X10*3/uL [facility] Monocytes Absolute Auto 0.7 0.1 - 1.2 X10*3/uL [facility] Eosinophils Absolute Auto 0.3 0.0 - 0.4 X10*3/uL [facility] Basophils Absolute Auto 0.1 0.0 - 0.2 X10*3/uL [facility] NRBC Abs Auto 0.000 0.0 - 0.012 X10*3/uL [facility] Blood Venous blood specimen / Unknown 12/13/2023 8:52 AM EDT 12/13/2023 8:52 AM EDT us Rosalidn MORELOS LAB BLOOD ORDERABLES Final Res ult [facility] [address] [place] [address] [phone] documented in this encounter Visit Diagnoses Diagnosis Type 2 diabetes mellitus with stage 3 chronic kidney disease, with long-term current use of insulin, unspecified whether stage 3a or 3b CKD ([facility]) Myalgia Unspecified myalgia and myositis documented in this encounter Additional Health Concerns Assessment Noted Time PHQ-9 Depression Total Score: 0 12/26/19 23 1:09 PM EDT documented as of this encounter Care Teams Coremaker Supervisor Relationship Specialty Start Date End Date Rosalind Cardoso FNP [address] [place] [address] PCP - General Family Medicine 04/28/21 documented as of this encounter
--- OUTSIDE RECORDS SUMMARY | 2024-08-04 10:20 | XMS_ITS | Encounter Summary ---
Author Organization [employer] Address [address] [place] [address] [address] [place] [address] Care Team Providers Care Full Time Babysitter Name Role Phone Rosalind Cardoso Primary Care Provider [phone] Encounter Details Date Type Department Care Team ([facility] Contact Info) Description 11/28/2022 Abstract [facility] [address] [place] [address] Rosalind Cardoso FNP [address] [place] [address] Social History Tobacco Use Types Packs/Day Years [...] suspected to have Coronavirus/COVID-19? No / Unsure 11/05/2022 11:13 AM EDT documented as of this encounter Plan of Treatment Upcoming Encounters Date Type Department Care Team ([facility] Contact Info) Description 09/04/2024 10:00 AM EST Office Visit [facility] [address] [place] [address] Rosalind Cardoso FNP [address] [place] [address] documented as of this encounter Visit Diagnoses Not on filedocumented in this encounter Care Teams Full Time Babysitter Relationship Specialty Start Date End Date Rosalind Cardoso FNP [address] [place] [phone] PCP - General Family Medicine 04/28/21 documented as of this encounter
--- OUTSIDE RECORDS SUMMARY | 2024-08-04 10:20 | XMS_ITS | Encounter Summary ---
Author Organization [employer] Address [address] [facility] [address] [place] [address] Care Team Providers Care Retort Feeder Ground Bone Name Role Phone Rosalind Cardoso Primary Care Provider [phone] Encounter Details Date Type Department Care Team (Late st Contact Info) Description 02/07/2024 Orders Only [facility] MEDICINE [address] [place] [address] Rosalind Cardoso FNP [address] [place] [address] Type 2 diabetes mellitus with stage 3 [...] Upcoming Encounters Date Type Department Care Team ([facility] st Contact Info) Description 09/04/2024 10:00 AM EST Office Visit [facility] MED [facility] PEDS [address] [place] [address] Rosalind Cardoso FNP [address] [place] [address] documented as of this encounter Visit Diagnoses Diagnosis Type 2 diabetes mellitus with stage 3 chronic kidney disease, with long-term current use of insulin, unspecified whether stage 3a or 3b CKD (CMS/HCC) Myalgia Unspecified myalgia and myositis documented in this encounter Additional Health Concerns Assessment Noted Time PHQ-9 Depression Total Score: 0 12/26/19 23 1:09 PM EDT documented as of this encounter Care Teams Retort Feeder Ground Bone Relationship Specialty Start Date End Date Rosalind Cardoso FNP [address] [place] [phone] PCP - General Family Medicine 04/28/21 documented as of this encounter
--- OUTSIDE RECORDS SUMMARY | 2024-08-04 10:20 | XMS_ITS | Encounter Summary ---
Author Organization [employer] Address [address] [facility] [address] [place] [address] Care Team Providers Care Stage Hand Name Role Phone Rosalind Cardoso Primary Care Provider [phone] Reason for Visit * Reason Onset Date Comments Durable Medical Equipment 12/06/2022 Encounter Details Date Type Department Care Team (Late st Contact Info) Description 12/06/2022 Telephone [facility] MED[facility] [address] [place] [address] Rosalind Cardoso FNP [address] [place] [address] Durable Medical Equipment Social History Tobacco Use [...] encounter Miscellaneous Notes * Telephone Encounter - Hilaria Sandoval - 12/06/2022 11:28 AM EDT Tc from pt calling in regards to script for walker that was sent to [facility]. [facility] advised Pt shecant use walker that was prescribed. Requested that script is resent to [facility] for a plain walker with no wheels and diagnosis to be amputation. For more clarification, please contact pt at [phone] documented in this encounter Plan of Treatment Upcoming Encounters Date Type Department Care Team ([facility] st Contact Info) Description 09/04/2024 10:00 AM EST Office Visit [facility] & PEDS [address] [place] [address] Rosalind Cardoso FNP [address] [place] [address] documented as of this encounter Visit Diagnoses Not on filedocumented in this encounter Care Teams Stage Hand Relationship Specialty Start Date End Date Rosalind Cardoso FNP [address] [place] [address] PCP - General Family Medicine 04/28/21 documented as of this encounter
--- OUTSIDE RECORDS SUMMARY | 2024-08-04 10:20 | XMS_ITS | Encounter Summary ---
Author Organization [employer] Address [address] [facility] [address] [place] [address] Care Team Providers Care Pulmonology Physician Name Role Phone Rosalind Cardoso Primary Care Provider [phone] Encounter Details Date Type Department Care Team ([facility] st Contact Info) Description 07/03/2024 Orders Only [facility] [address] [place], [place] [phone] Rosalind Cardoso FNP [address] [place] [address] Type 2 diabetes mellitus with stage 3 [...] 10:00 AM EST Office Visit [facility] [address] [place] [address] Rosalind Cardoso, TAMY [address] [place] [address] documented as of this encounter Procedures Procedure Name Priority Date/Time Associated Diagnosis Comments SED RATE BY MODIFIED WESTERGREN Routine 07/07/2024 10:24 AM EST Type 2 diabetes mellitus with stage 3 chronic kidney disease, with long-term current use of insulin, unspecified whether stage 3a or 3b CKD (CMS/HCC) Primary hypertension Stage 3b chronic kidney disease (CMS/HCC) 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 (CMS/HCC) PROTHROMBIN TIME-INR Routine 07/07/2024 10:24 AM EST Type 2 diabetes mellitus with stage 3 chronic kidney disease, with long-term current use of insulin, unspecified whether stage 3a or 3b CKD (CMS/HCC) Primary hypertension Stage 3b chronic kidney disease (CMS/HCC) 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 (CMS/HCC) C-REACTIVE PROTEIN Routine 07/07/2024 10 :24 AM EST Type 2 diabetes mellitus with stage 3 chronic kidney disease, with long-term current use of insulin, unspecified whether stage 3a or 3b CKD (CMS/HCC) Primary hypertension Stage 3b chronic kidney disease (CMS/HCC) 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 (CMS/HCC) MAGNESIUM Routine 07/07/2024 10:24 AM EST Type 2 diabetes mellitus with stage 3 chronic kidney disease, with long-term current use of insulin, unspecified whether stage 3a or 3b CKD (CMS/HCC) Primary hypertension Stage 3b chronic kidney disease (CMS/HCC) 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 (CMS/HCC) COMPREHENSIVE METABOLIC PANEL Routine 07/07/2024 10:24 AM EST Type 2 diabetes mellitus with stage 3 chronic kidney disease, with long-term current use of insulin, unspecified whether stage 3a or 3b CKD (CMS/HCC) Primary hypertension Stage 3b chronic kidney disease (CMS/HCC) 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 (CMS/HCC) documented in this encounter Results * (ABNORMAL) Prothrombin Time-INR (07/07/2024 10:24 AM EST) Prothrombin Time 10.7(L) 10.9 - 12.4 SEC [facility] INTERNATIONAL NORM RATIO 0.9 0.9 - 1.1 [facility] Comment:INTERNATIONAL NORMAL IZED RATIO (INR) [...] 3.5 Blood Venous blood specimen / Unknown 07/07/2024 10:24 AM EST 07/07/2024 10:24 AM EST us Rosalind Cardoso GRAIN ELEVATOR MAN LAB BLOOD ORDERABLES Final Res ult [facility] [address] [place] [address] [phone] * (ABNORMAL) C-reactive Protein (07/07/2024 10:24 AM EST) C Reactive Protein 1.00(H) < or = 0.50 mg/dL [facility] Blood Venous blood specimen / Unknown 07/07/2024 10:24 AM EST 07/07/2024 10:24 AM EST Rosalind Cardoso GRAIN ELEVATOR MAN LAB BLOOD ORDERABLES Final Res ult Performing Organization Address [facility] Co de Phone Number [facility] [address] [place] [phone] * (ABNORMAL) Sed Rate by Modified [place] (07/07/2024 10:24 AM EST) Erythrocyte Sedimentation Rate 34(H) 0 - 20 MM/HR [facility] Comment:Patients with polycy themia and many hemoglobin abnormalitiesmay have depressed sed rates whereas patients with anemiamay have elevated sed rates. Blood Venous blood specimen / Unknown 07/07/2024 10:24 AM EST 07/07/2024 10:24 AM EST Rosalind Teoedna GRAIN ELEVATOR MAN LAB BLOOD ORDERABLES Final Res ult Performing Organization Address [facility] Co de Phone Number [facility] [address] [place] [phone] * Magnesium (07/07/2024 10:24 AM EST) Magnesium 1.8 1.6 - 2.6 mg/dL [facility] Blood Venous blood specimen / Unknown 07/07/2024 10:24 AM EST 07/07/2024 10:24 AM EST Rosalind Cardoso GRAIN ELEVATOR MAN LAB BLOOD ORDERABLES Final Res ult Performing Organization Address [facility] Co de Phone Number [facility] [address] [place] [address] [phone] * (ABNORMAL) Comprehensive Metabolic Panel (07/07/2024 10:24 AM EST) Sodium 135 135 - 145 mmol/L [facility] Potassium 3.7 3.3 - 5.1 mmol/L [facility] Chloride 102 96 - 108 mmol/L [facility] Carbon Dioxide 25 22 - 29 mmol/L [facility] Anion Gap 12 12 - 20 [facility] Urea Nitrogen (BUN) 47(H) 9 - 16 mg/dL [facility] Creatinine, Serum 1.54(H) 0.5 - 1.4 mg/dL [facility] Estimated Glomerular Filt Rate 34 [facility] Comment:Chronic Kidney Disea se: Estimated GFR < 60 mL/min/[id number] Kidney Disease: Estimated GFR < 15 mL/min/1.73m2 Glucose 400(HH) 60 - 115 mg/dL [facility] Comment:Critical value for G RADHA: Results called to and read backby: KAYLEE Gallegos Person calling: OLESYA Date: 07/07/24 Time:1102 Calcium 9.6 8.4 - 10.2 mg/dL [facility] Bilirubin, Total 0.2 0.0 - 1.0 mg/dL [facility] Aspartate Amino Transferase 17 5 - 31 U/L [facility] Alanine Aminotransferase 9 0 - 31 U/L [facility] Total Protein 7.3 6.5 - 8.0 g/dL [facility] Albumin Level 3.5 3.5 - 5.0 g/dL [facility] Alkaline Phosphatase 109 39 - 117 U/L [facility] Blood Venous blood specimen / Unknown 07/07/2024 10:24 AM EST 07/07/2024 10:24 AM EST us Rosalind Cardoso GRAIN ELEVATOR MAN LAB BLOOD ORDERABLES Final Res ult [facility] [address] [place] [address] [phone] documented in this encounter Visit Diagnoses Diagnosis Type 2 diabetes mellitus with stage 3 chronic kidney disease, with long-term current use of insulin, unspecified whether stage 3a or 3b CKD ([facility]/HCC) Primary hypertension Unspecified essential hypertension Stage 3b chronic kidney disease ([facility]/HCC) 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 ([facility]) documented in this encounter Additional Health Concerns Assessment Noted Time PHQ-9 Depression Total Score: 0 12/26/19 23 1:09 PM EDT documented as of this encounter Care Teams Pulmonology Physician Relationship Specialty Start Date End Date Rosalind Cardoso FNP [address] [place] [address] PCP - General Family Medicine 04/28/21 documented as of this encounter
--- OUTSIDE RECORDS SUMMARY | 2024-08-04 10:20 | XMS_ITS | Encounter Summary ---
Author Organization [employer] Address 75 [facility] 7t [place] [address] Care Team Providers Care Integration Lead Name Role Phone Rosalind Cardoso Primary Care Provider [phone] Reason for Visit * Reason Onset Date Comments Durable Medical Equipment 10/23/2022 Encounter Details Date Type Department Care Team (Late st Contact Info) Description 10/23/2022 Telephone [facility] MEDICINE [address] [place] [address] Rosalind Cardoso FNP [address] [place] [address] Durable Medical Equipment Social History Tobacco Use [...] * Telephone Encounter - Ina Lobo - 10/24/2022 10:56 AM EDT Script for walker was already sent to reservoir caretaker and pt notified. * Telephone Encounter - Franc Talley - 10/23/2022 2:25 PM EDT Tc from pt requesting a regular Walker for physical therapy program. Pt states that she needs the regular walker with the two wheels in the front and not seat. Please contact pt at [phone] documented in this encounter Plan of Treatment Upcoming Encounters Date Type Department Care Team (Late st Contact Info) Description 09/04/2024 10:00 AM EST Office Visit [facility] MED & PEDS [address] [place] [address] Rosalind Cardoso FNP 505 [place] [address] documented as of this encounter Visit Diagnoses Not on filedocumented in this encounter Care Teams Integration Lead Relationship Specialty Start Date End Date Rosalind Cardoso FNP [address] [place] [address] PCP - General Family Medicine 04/28/21 documented as of this encounter
--- OUTSIDE RECORDS SUMMARY | 2024-08-04 10:20 | XMS_ITS | Encounter Summary ---
Author Organization [employer] Address 75 [facility] 7t [place] [address] Care Team Providers Care Child Care Team Lead Name Role Phone Rosalind Cardoso Primary Care Provider [phone] Encounter Details Date Type Department Care Team ([facility] st Contact Info) Description 01/31/2024 Orders Only [facility] MED & PEDS [address] [place], [place] [phone] Rosalind Cardoso FNP 505 [place] [address] Type 2 diabetes mellitus with stage 3 [...] [facility] MED & PEDS [address] [place] [address] Rosalind Cardoso, TAMY [address] [place] [address] documented as of this encounter Procedures Procedure Name Priority Date/Time Associated Diagnosis Comments SED RATE BY MODIFIED WESTERGREN Routine 05/29/2024 2:18 PM EST Type 2 diabetes mellitus with stage 3 chronic kidney disease, with long-term current use of insulin, unspecified whether stage 3a or 3b CKD ([facility]/HCC) Primary hypertension Stage 3b chronic kidney disease ([facility]/HCC) 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 ([facility]/HCC) documented in this encounter Results * (ABNORMAL) Sed Rate by Modified Westergren (05/29/2024 2:18 PM EST) Erythrocyte Sedimentation Rate 71(H) 0 - 20 MM/HR [facility] Comment:Patients with polycy themia and many hemoglobin abnormalitiesmay have depressed sed rates whereas patients with anemiamay have elevated sed rates. 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
--- OUTSIDE RECORDS SUMMARY | 2024-08-04 10:20 | XMS_ITS | Encounter Summary ---
Author Organization [employer] Address 75 [facility] 7[address] [place] [address] Care Team Providers Care Animal Care Supervisor Name Role Phone Rosalind Cardoso Primary Care Provider [phone] Encounter Details Date Type Department Care Team ([facility] Contact Info) Description 10/19/2022 Telephone [facility] MEDICINE [address] [place] [address] Rosalind Cardoso FNP 505 [place] [address] Social History Tobacco Use Types Packs/Day Years [...] Upcoming Encounters Date Type Department Care Team ([facility] Contact Info) Description 09/04/2024 10:00 AM EST Office Visit [facility] MED & PEDS [address] [place] [address] Rosalind Cardoso FNP [address] [place] [address] documented as of this encounter Visit Diagnoses Not on filedocumented in this encounter Care Teams Animal Care Supervisor Relationship Specialty Start Date End Date Rosalind Cardoso FNP [address] [place] [address] PCP - General Family Medicine 04/28/21 documented as of this encounter
--- OUTSIDE RECORDS SUMMARY | 2024-08-04 10:21 | XMS_ITS | Encounter Summary ---
Author Organization [employer] Address 75 [facility] 7t [place] [address] Care Team Providers Care Optical Fabricator Name Role Phone Rosalind Cardoso Primary Care Provider [phone] Encounter Details Date Type Department Care Team (Late st Contact Info) Description 05/15/2024 Orders Only [facility] MEDICINE [address] [place] [address] Rosalind Cardoso FNP [address] [place] [address] Type 2 diabetes mellitus with stage 3 [facility] [address] [place] [address] Rosalind Cardoso FNP [address] [place] [address] documented as of this encounter Visit Diagnoses [...] documented as of this encounter Care Teams Optical Fabricator Relationship Specialty Start Date End Date Rosalind Cardoso FNP [address] [place] [address] PCP - General Family Medicine 04/28/21 documented as of this encounter
--- OUTSIDE RECORDS SUMMARY | 2024-08-04 10:21 | XMS_ITS | Encounter Summary ---
Author Organization [employer] Address [address] [place] [address] 7 [place] [address] Care Team Providers Care Mine Utility Operator Name Role Phone Rosalind Cardoso Primary Care Provider [phone] Reason for Visit * Reason Onset Date Comments Durable Medical Equipment 07/29/2024 Encounter Details Date Type Department Care Team ([facility] st Contact Info) Description 07/29/2024 Telephone [facility] MED & PEDS [address] [place] [address] Rosalind Cardoso FNP [address] [place] [address] Durable Medical Equipment Social History Tobacco Use Types Packs/Day Years Used Date Smoking Tobacco: Never Smokeless Tobacco: Never Alcohol Use Standard Drinks/Week Comments Never 0 (1 standard drink = 0.6 oz pur e alcohol) Depression Answer Date Recorded Patient Health Questionnaire-9 Score 6 08/03/2024 Patient Health Questionnaire-9 Score 6 08/03/2024 Last PHQ-9: Questionnaire Data Not on file 0 08/03/2024 Housing Stability Answer Date Recorded What is [...] Date Recorded Patient Health Questionnaire-2 Score 0 08/03/2024 Comments Unknown Sex and Gender Information Value Date Recorded Sex Assigned at Female 05/07/2022 10:30 AM EDT Legal Sex Female 10:30 AM EDT Gender Identity Female 05/07/2022 10:30 AM EDT Sexual Orientation Straight 05/07/2022 10 :30 AM EDT documented as of this encounter Miscellaneous Notes * Telephone Encounter - Blanquita Falk LPN - 08/04/2024 9:21 AM EST Rx generated and faxed to [facility] Coordinator Leonard . ----- Message from Rosalind Cardoso sent at 08/03/2024 2:11 PM EST ----- DME request for bariatric transfer chair please. Dx: left BKA * Telephone Encounter - Blanquita Falk LPN - 08/04/2024 9:21 AM EST ----- Message from Rosalind Cardoso sent at 08/03/2024 2:11 PM EST ----- DME request for bariatric transfer chair please. Dx: left BKA * Telephone Encounter - Ewelina Roper - 07/29/2024 9:33 AM EST TC from pt calling to inform [facility] will not repair transfer chair and was told a new script is needed for a new transfer chair . Please call pt to clarify. documented in this encounter Plan of Treatment Upcoming Encounters Date Type Department Care Team (Late st Contact Info) Description 09/04/2024 10:00 AM EST Office Visit [facility] MED & PEDS [address] [place] [address] Rosalind Cardoso FNP [address] [place] [address] documented as of this encounter Visit Diagnoses Not on filedocumented in this encounter Additional Health Concerns Assessment Noted Time PHQ-9 Depression Total Score: 0 12/26/19 23 1:09 PM EDT documented as of this encounter Care Teams Mine Utility Operator Relationship Specialty Start Date End Date Rosalind Cardoso FNP [address] [place] [address] PCP - General Family Medicine 04/28/21 documented as of this encounter
--- OUTSIDE RECORDS SUMMARY | 2024-08-04 10:21 | XMS_ITS | Encounter Summary ---
Author Organization [employer] Address [address] [place] [address] 7 [place] [address] Care Team Providers Care Crane Engineer Name Role Phone Rosalind Cardoso BUFFET MANAGER Primary Care Provider Reason for Visit * Reason Comments Med Refill Encounter Details Date Type Department Care Team ([facility] Contact Info) Description 01/13/2023 Refill [facility] MED & PEDS [address] [place] [address] Saba Garcia FNP [address] [place] [address] Dept [place] [address] Type 2 diabetes mellitus with hyperglycemia (CMS/HCC) Social History Tobacco Use Types Packs/Day [...] Description 09/04/2024 10:00 AM EST Office Visit [facility] MED & PEDS [address] [place] [address] Rosalind Cardoso FNP [address] [place] [address] documented as of this encounter Visit Diagnoses Diagnosis Type 2 diabetes mellitus with hyperglycemia (CMS/HCC) documented in this encounter Additional Health Concerns Assessment Noted Time PHQ-9 Depression Total Score: 0 12/26/19 23 1:09 PM EDT documented as of this encounter Care Teams Crane Engineer Relationship Specialty Start Date End Date Rosalind Cardoso FNP [address] [place] [address] PCP - General Family Medicine 04/28/21 documented as of this encounter
--- OUTSIDE RECORDS SUMMARY | 2024-08-04 10:21 | XMS_ITS | Encounter Summary ---
Author Organization [employer] Address 75 [facility] 7t [place] [address] Care Team Providers Care Electrical Maintenance Technician Name Role Phone Rosalind Cardoso Primary Care Provider [phone] Encounter Details Date Type Department Care Team ([facility] st Contact Info) Description 02/14/2024 Orders Only [facility] MED & PEDS [address] [place], [place] [phone] Rosalind Cardoso FNP [address] [place] [address] Type 2 diabetes mellitus with stage 3 [...] 10:00 AM EST Office Visit [facility] MED & PEDS [address] [place] [address] Rosalind Cardoso FNP [address] [place] [address] documented as of this encounter Visit Diagnoses [...] documented as of this encounter Care Teams Electrical Maintenance Technician Relationship Specialty Start Date End Date Rosalind Cardoso FNP [address] [place] [address] PCP - General Family Medicine 04/28/21 documented as of this encounter
--- OUTSIDE RECORDS SUMMARY | 2024-08-04 10:21 | XMS_ITS | Encounter Summary ---
Author Organization [employer] Address 75 [facility] 7t [place] [address] Care Team Providers Care Fisher Crab Name Role Phone Rosalind Cardoso Primary Care Provider [phone] Encounter Details Date Type Department Care Team (Late st Contact Info) Description 05/01/2024 Orders Only [facility] MEDICINE [address] [place] [address] Rosalind Cardoso FNP [address] [place] [address] Type 2 diabetes mellitus with stage 3 [...] Upcoming Encounters Date Type Department Care Team ([facility] st Contact Info) Description 09/04/2024 10:00 AM EST Office Visit [facility] MED & PEDS [address] [place] [address] Rosalind Cardoso FNP 505 [place] [address] documented as of this encounter Visit Diagnoses [...] documented as of this encounter Care Teams Fisher Crab Relationship Specialty Start Date End Date Rosalind Cardoso FNP [address] [place] [address] PCP - General Family Medicine 04/28/21 documented as of this encounter
--- OUTSIDE RECORDS SUMMARY | 2024-08-04 10:21 | XMS_ITS | Encounter Summary ---
Author Organization [employer] Address 75 [facility] 7t [place] [address] Care Team Providers Care Sales Representative Cash Registers Name Role Phone Rosalind Cardoso TAMY Primary Care Provider [phone] Reason for Visit * Reason Onset Date Comments Chart Prep 07/31/2024 Encounter Details Date Type Department Care Team ([facility] st Contact Info) Description 07/31/2024 Telephone [facility] MED & PEDS [address] [place] [address] Glenn Winn MA Chart Prep Social History Tobacco Use Types Packs/Day Years Used Date Smoking Tobacco: Never Smokeless Tobacco: Never Alcohol Use Standard Drinks/Week Comments Never 0 (1 standard drink = 0.6 oz pur e alcohol) Depression Answer Date Recorded Patient Health Questionnaire-9 Score 0 12/25/2022 Housing Stability Answer Date Recorded What is your housing situation today? I have elbertrosemarie metz 04/25/[address] you [...] encounter Miscellaneous Notes * Telephone Encounter - Glenn Palacios MA - 07/31/2024 4:36 PM EST Chart Prep Labs: not done Images: done Vaccines due: yes Referrals: complete Screenings: colonoscopy , pap smear , eye exam , Foot Exam Overdue care gaps: A1C, Glucose documented in this encounter Plan of Treatment Upcoming Encounters Date Type Department Care Team (Late st Contact Info) Description 09/04/2024 10:00 AM EST Office Visit [facility] MED & PEDS [address] [place] [address] Rosalind Cardoso FNP [address] [place] [address] documented as of this encounter Visit Diagnoses Not on filedocumented in this encounter Additional Health Concerns Assessment Noted Time PHQ-9 Depression Total Score: 0 12/26/19 23 1:09 PM EDT documented as of this encounter Care Teams Sales Representative Cash Registers Relationship Specialty Start Date End Date Rosalind Cardoso FNP [address] [place] [address] PCP - General Family Medicine 04/28/21 documented as of this encounter
--- OUTSIDE RECORDS SUMMARY | 2024-08-04 10:21 | XMS_ITS | Encounter Summary ---
Author Organization [employer] Address 75 [facility] 7t [place] [address] Care Team Providers Care Electrical Fitter Name Role Phone Rosalind Cardoso Primary Care Provider [phone] Encounter Details Date Type Department Care Team ([facility] st Contact Info) Description 03/13/2024 Orders Only [facility] CHC MED & PEDS [address] [place], [place] [phone] Rosalind Cardoso FNP [address] [place] [address] Type 2 diabetes mellitus with stage 3 [...] 10:00 AM EST Office Visit [facility] MED & PEDS [address] [place] [address] Rosalind Cardoso FNP [address] [place] [address] documented as of this encounter Procedures Procedure Name Priority Date/Time Associated Diagnosis Comments C-REACTIVE PROTEIN Routine 05/29/2024 2: 18 PM EST Type 2 diabetes mellitus with stage 3 chronic kidney disease, with long-term current use of insulin, unspecified whether stage 3a or 3b CKD (CMS/HCC) Primary hypertension Stage 3b chronic kidney disease (CMS/HCC) 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 (CMS/HCC) documented in this encounter Results * (ABNORMAL) C-reactive Protein (05/29/2024 2:18 PM EST) C Reactive Protein 1.25(H) < or = 0.50 mg/dL [facility] Blood Venous blood specimen / Unknown 05/29/2024 2:18 PM EST 05/29/2024 2:18 PM EST us Rosalind MORELOS LAB BLOOD ORDERABLES Final Res ult [facility] [address] [place] [address] [phone] documented in this encounter Visit Diagnoses Diagnosis Type 2 diabetes mellitus with stage 3 chronic kidney disease, with long-term current use of insulin, unspecified whether stage 3a or 3b CKD ([facility]/HCC) Primary hypertension Unspecified essential hypertension Stage 3b chronic kidney disease ([facility]) 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
--- OUTSIDE RECORDS SUMMARY | 2024-08-04 10:21 | XMS_ITS | Encounter Summary ---
Author Organization [employer] Address 75 [facility] 7t [place] [address] Care Team Providers Care Trust Manager Assistant Name Role Phone Rosalind Cardoso Primary Care Provider [phone] Encounter Details Date Type Department Care Team ([facility] st Contact Info) Description 04/10/2024 Orders Only [facility] MED & PEDS [address] [place], [place] [phone] Rosalind Cardoso FNP [address] [place] [address] Type 2 diabetes mellitus with stage 3 [...] Description 09/04/2024 10:00 AM EST Office Visit [facility] MED & PEDS [address] [place] [address] Rosalind Cardoso FNP [address] [place] [address] documented as of this encounter Visit Diagnoses [...] documented as of this encounter Care Teams Trust Manager Assistant Relationship Specialty Start Date End Date Rosalind Cardoso FNP [address] [place] [address] PCP - General Family Medicine 04/28/21 documented as of this encounter
--- OUTSIDE RECORDS SUMMARY | 2024-08-04 10:21 | XMS_ITS | Encounter Summary ---
Author Organization [employer] Address 75 [facility] 7t [place] [address] Care Team Providers Care Inclusion Manager Name Role Phone Rosalind Cardoso Primary Care Provider [phone] Encounter Details Date Type Department Care Team (Late st Contact Info) Description 06/12/2024 Orders Only [facility] MEDICINE [address] [place] [address] Rosalind Cardoso FNP [address] [place] [address] Type 2 diabetes mellitus with stage 3 [...] Visit [facility] MED & PEDS [address] [place], [place] [phone] Rosalind Cardoso FNP [address] [place] [address] documented as of this encounter Procedures Procedure Name Priority Date/Time Associated Diagnosis Comments C-REACTIVE PROTEIN Routine 06/23/2024 10 :31 AM EST Type 2 diabetes mellitus with stage 3 chronic kidney disease, with long-term current use of insulin, unspecified whether stage 3a or 3b CKD ([facility]) Myalgia MAGNESIUM Routine 06/23/2024 10:31 AM EST Type 2 diabetes mellitus with stage 3 chronic kidney disease, with long-term current use of insulin, unspecified whether stage 3a or 3b CKD ([facility]/HCC) Myalgia documented in this encounter Results * C-reactive Protein (06/23/2024 10:31 AM EST) C Reactive Protein 0.50 < or = 0.50 mg/dL [facility] Blood Venous blood specimen / Unknown 06/23/2024 10:31 AM EST 06/23/2024 10:31 AM EST us Rosalind Cardoso [facility] BLOOD ORDERABLES Final Res ult Performing Organization Address [facility] Co de Phone Number [facility] [address] [place] [address] [phone] * Magnesium (06/23/2024 10:31 AM EST) Magnesium 1.8 1.6 - 2.6 mg/dL [facility] Blood Venous blood specimen / Unknown 06/23/2024 10:31 AM EST 06/23/2024 10:31 AM EST us Rosalind Cardoso [facility] BLOOD ORDERABLES Final Res ult Performing Organization Address [facility] de Phone Number [facility] [address] [place] [phone] documented in this encounter Visit Diagnoses [...] documented as of this encounter Care Teams Inclusion Manager Relationship Specialty Start Date End Date Rosalind Cardoso FNP [address] [place] [address] PCP - General Family Medicine 04/28/21 documented as of this encounter
--- OUTSIDE RECORDS SUMMARY | 2024-08-04 10:21 | XMS_ITS | Encounter Summary ---
Author Organization [employer] Address 75 [facility] 7t [place] [address] Care Team Providers Care Model And Pattern Supervisor Name Role Phone Rosalind Cardoso Primary Care Provider [phone] Encounter Details Date Type Department Care Team ([facility] st Contact Info) Description 02/28/2024 Orders Only [facility] CH[facility] MED & PEDS [address] [place], [place] [phone] Rosalind Cardoso FNP [address] [place] [address] Type 2 diabetes mellitus with stage 3 [...] 10:00 AM EST Office Visit [facility] MED & PEDS [address] [place] [address] Rosalind Cardoso FNP [address] [place] [address] documented as of this encounter Visit Diagnoses [...] documented as of this encounter Care Teams Model And Pattern Supervisor Relationship Specialty Start Date End Date Rosalind Cardoso FNP [address] [place] [address] PCP - General Family Medicine 04/28/21 documented as of this encounter
--- OUTSIDE RECORDS SUMMARY | 2024-08-04 10:21 | XMS_ITS | Encounter Summary ---
Author Organization [employer] Address 75 [facility] 7t [place] [address] Care Team Providers Care Rug Cleaner Name Role Phone Rosalind Cardoso Primary Care Provider [phone] Encounter Details Date Type Department Care Team ([facility] st Contact Info) Description 03/27/2024 Orders Only [facility] MED & PEDS [address] [place], [place] [phone] Rosalind Cardoso FNP [address] [place] [address] Type 2 diabetes mellitus with stage 3 [...] Description 09/04/2024 10:00 AM EST Office Visit [facility] MED & PEDS [address] [place] [address] Rosalind Cardoso FNP [address] [place] [address] documented as of this encounter Visit Diagnoses [...] documented as of this encounter Care Teams Rug Cleaner Relationship Specialty Start Date End Date Rosalind Cardoso FNP [address] [place] [address] PCP - General Family Medicine 04/28/21 documented as of this encounter
--- OUTSIDE RECORDS SUMMARY | 2024-08-04 10:21 | XMS_ITS | Encounter Summary ---
Author Organization [employer] Address [address] [facility] [address] [place] [address] Care Team Providers Care Quality Control Operator Name Role Phone Rosalind Cardoso Primary Care Provider [phone] Encounter Details Date Type Department Care Team (Late st Contact Info) Description 02/21/2024 Orders Only [facility] [address] [place] [address] Rosalind Cardoso FNP [address] [place] [address] Type 2 diabetes mellitus with stage 3 [...] Upcoming Encounters Date Type Department Care Team ([facility] st Contact Info) Description 09/04/2024 10:00 AM EST Office Visit [facility] [address] [place] [address] Rosalind Cardoso FNP [address] [place] [address] documented as of this encounter Visit Diagnoses [...] documented as of this encounter Care Teams Quality Control Operator Relationship Specialty Start Date End Date Rosalind Cardoso FNP [address] [place] [id number] PCP - General Family Medicine 04/28/21 documented as of this encounter
--- OUTSIDE RECORDS SUMMARY | 2024-08-04 10:21 | XMS_ITS | Clinical Summary ---
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 Zigzag Name Role Phone Rosalind Cardoso TAMY Primary Care Provider [phone] Allergies Active Allergy Reactions Criticality Noted Date Comments Empagliflozin Other 12/10/2023 Hx BKA, shared decision making to avoid SGLT-2i Medications Nutritional Supplements (Glucerna Shake) liquid Supplement meals with one glucerna drink daily as needed - Vanilla Glucerna 022 Active amLODIPine (Norvasc) 10 MG tablet TAKE 1 TABLET BY MOUTH DAILY IN THE MORNING 023 Active isosorbide mononitrate ER (Imdur) 60 MG 24 hr tablet 023 Active mupirocin (Bactroban) 2 % ointmentIndicati ons:Other chronic osteomyelitis, left ankle and foot (CMS/HCC) APPLY TOPICALLY TO AFFECTED AREA(S) THREE TIMES DAILY FOR 10 DAYS 22 g 3 023 Active lidocaine-priloc daren (Emla) 2.5-2.5 % creamIndications :Other chronic osteomyelitis of left foot (CMS/HCC) APPLY TO THE AFFECTED AREA(S) ONCE DAILY NEEDED FOR PAIN 30 g 11 023 Active furosemide (Lasix) 20 MG tablet Take 20 mg by mouth in the morning. 024 Active sodium chloride (Deep Sea Nasal Villanova) 0.65 % nasal spray USE 1 SPRAY IN EACH NOSTRIL NEEDED FOR NASAL CONGESTION 44 mL 11 024 Active folic acid (Folvite) 1 MG tablet Take 1 tablet (1 mg) by mouth Once daily. 90 tablet Active aspirin (Aspirin Adult Low Strength) 81 MG EC tabletIndication s:Type 2 diabetes mellitus with hyperglycemia, with long-term current use of insulin (CMS/HCC) Take 1 tablet (81 mg) by mouth Once daily. 90 tablet 3 Active chlorthalidone (Hygroton) 25 MG tablet Take 1 tablet (25 mg) by mouth in the morning. 90 tablet 3 Active atorvastatin (Lipitor) 80 MG tablet TAKE 1 TABLET BY MOUTH AT BEDTIME 90 tablet 3 Active pioglitazone (Actos) 15 MG tablet TAKE 1 TABLET BY MOUTH EVERY MORNING 90 tablet 3 Active metFORMIN (Glucophage) 1000 MG tabletIndication s:Type 2 diabetes mellitus with foot ulcer, with long-term current use of insulin (CMS/HCC) TAKE 1 TABLET BY MOUTH TWICE DAILY IN THE MORNING AND IN THE EVENING WITH MEALS 180 tablet 3 Active pantoprazole (ProtoNix) 40 MG EC tablet Take 1 tablet (40 mg) by mouth Once daily. 90 tablet 3 Active cholecalciferol (Vitamin D-3) 25 MCG (1000 UT) tablet Take 1 tablet (25 mcg) by mouth Once daily. 90 tablet 3 Active lisinopril 20 MG tablet Take 1 tablet (20 mg) by mouth in the morning. 90 tablet 1 Active metoprolol succinate XL (Toprol XL) 100 MG 24 hr tablet Take 1 tablet (100 mg) by mouth Once per day. Do not crush or chew. 90 tablet 3 024 2024 Active ezetimibe (Zetia) 10 MG tabletIndication s:Pure hypercholesterol emia, unspecified Take 1 tablet (10 mg) by mouth in the morning. 90 tablet 3 Active lidocaine (Lidoderm) 5 % patchIndications :Pain APPLY 1 PATCH TOPICALLY TO SKIN, LEAVE ON FOR 12 HOURS AND OFF FOR 12 HOURS DIRECTED 30 patch Active insulin glargine (Lantus SoloStar) 100 UNIT/ML penIndications:T ype 2 diabetes mellitus with hyperglycemia (CMS/HCC) INJECT 40 UNITS SUBCUTANEOUSLY ONCE DAILY 15 mL 5 024 Active magnesium oxide (Mag-Ox) 400 MG tabletIndication s:Type 2 diabetes mellitus with other specified complication, unspecified whether senior care insulin use ([facility]) TAKE 1 TABLET BY MOUTH THREE TIMES DAILY 270 tablet 1 024 Active amitriptyline (Elavil) 25 MG tabletIndication s:Fibromyalgia Take 1 tablet (25 mg) by mouth at bedtime. 90 tablet 1 024 Active bacitracin 500 UNIT/GM ointment Apply topically 2 times daily. Apply to affected area daily 30 g 024 Active clotrimazole (Lotrimin) 1 % cream APPLY TOPICALLY TWICE DAILY FOR 28 DAYS 30 g 3 024 Active Acetaminophen Extra Strength 500 MG tabletIndication s:Low back pain at multiple sites TAKE 1 TO 2 TABLETS BY MOUTH EVERY 8 HOURS NEEDED (for pain) 100 tablet 1 025 Active Blood Glucose Monitoring Suppl kitIndications:T ype 2 diabetes mellitus with foot ulcer, with long-term current use of insulin ([facility]) Use to check Blood glucose values three times dailyUse to check Blood glucose values three times daily 1 kit 1 025 Active Blood Pressure kit Use to check blood pressure daily and when symptomatic. 1 kit 025 Active Alcohol Swabs (SM Alcohol Prep) 70 % padsIndications: Type 2 diabetes mellitus with foot ulcer, with long-term current use of insulin ([facility]) TEST BLOOD SUGAR THREE TIMES DAILY 100 each 025 Active FreeStyle lancets 1 each by Other route 3 times daily. Use as instructed 100 each 025 Active pen needle 31G x 5 mm misc Inject under the skin 3 times daily. Use as instructed 100 each 3 025 Active glucose blood (OneTouch Verio) test stripIndications :Type 2 diabetes mellitus with foot ulcer, with long-term current use of insulin ([facility]) USE DIRECTED TO TEST BLOOD SUGAR THREE TIMES DAILY 100 strip 025 Active Blood Glucose Monitoring Suppl (FreeStyle glucose monitoring) kitIndications:T ype 2 diabetes mellitus with foot ulcer, with long-term current use of insulin ([facility]) Use to check Blood glucose values three times daily 1 each 023 2024 Discontinued(R eorder (will not trigger notification to Pharmacy)) glucose blood (FREESTYLE LITE) test stripIndications :Type 2 diabetes mellitus with foot ulcer, with long-term current use of insulin ([facility]) TEST BLOOD SUGAR THREE TIMES DAILY 100 strip 11 023 2024 Discontinued FreeStyle lancets 1 each by Other route if needed (blood glucose monitoring). Use as instructed 100 each 11 023 2024 Discontinued(R eorder (will not trigger notification to Pharmacy)) Alcohol Swabs (SM Alcohol Prep) 70 % padsIndications: Type 2 diabetes mellitus with foot ulcer, with long-term current use of insulin ([facility]) TEST BLOOD SUGAR THREE TIMES DAILY 100 each 11 024 2024 Discontinued(R eorder (will not trigger notification to Pharmacy)) acetaminophen (Tylenol) 500 MG tabletIndication s:Low back pain at multiple sites TAKE 1 TO 2 TABLETS BY MOUTH EVERY 8 HOURS NEEDED FOR PAIN 100 tablet 1 024 2024 Discontinued pen needle 31G x 5 mm misc Inject under the skin if needed (insulin injection). Use as instructed 100 each 3 024 2024 Discontinued(R eorder (will not trigger notification to Pharmacy)) Active Problems Problem Noted Date Diagnosed Date Cervicalgia 08/11/2023 Overview (08/11/2023): ?? Evaluation through [facility] - MRI cervical spine completed Jul 2023 unremarkable ?? Referral to [facility] Pain Management 08/11/23 Fibromyalgia 05/14/2023 Overview (12/10/2023): Previously followed by [facility] Neurology, Dr. Jolly Continues with amitriptyline 25mg nightly Referrals to Massage and Acupuncture placed November 2023 Facial pain 01/16/2023 Overview (10/03/2023): CT Maxillofacial w/o contrast on 01/22/23 Impression: There is periapical lucency surrounding the root of the left maxillary central incisor that can be correlated with dental exam. No active sinus disease. There is rightward deviation of the nasal septum with a rightward directed nasal septal spur. There is also a leftward directed septal spur posteriorly. Degenerative changes involving the right greater than left TMJ. - Referral for 2nd ENT opinion per pt request on 10/03/23 Assessment & Plan (05/14/2023 12:01 PM EST): ENT appt scheduled 05/15/23 ED/urgent care precautions reviewed Assessment & Plan (01/16/2023 11:43 AM EDT): Pt w aprox 6 to 7 weeks of facial discomfort.States symptoms started in her left nasal cavity as scab sensation but then felt as discomfort -pain moving in last 6 weeks from nasal cavity to her left maxillary bone , left eye,left ear and neck,states pain is mild to moderate but concern now with pain behind her left eye as pulsatile,does reports some blurry vision in left eye. Also noted recently small nodular lesion in her left maxillary bone Pt is DM from last labs overall controlled w last hb1AC 6.9 on 12/25/2022 and today CBG 151 Concern with pt complaints for possible mass,abcess?,pt having symptoms x almost 7 weeks w no fever and no drainage so seems infection is less likely but still possible. -Pt was referred by her PCP to ENT in 12/12/2022 -pt denies receiving letter at home to schedule apt. --gave today printed letter to pt of referral with number of ENT for pt to call to schedule apt -has apt w ophthalmology x 01/21/2023 -referred today x STAT CT facial/sinuses w/o contrast w hx of CKD and STAT CT head w/o contrast to eval temporal bone --I spoke today w Olivia Reyes to try to expedite test but I explained pt that if not able to have image done this week to go to ED to further evaluate her worsening symptoms -pt denies having intense pain but having Discomfort so ok to take tylenol prn x now and ocean nasal spray prn to moist nose -will hold x now on ATB and steroid given uncertainty of etiology of her symptoms -alarm signs and symptoms explained to pt in length in case needs to go to ED -pt has apt w PCP in 2 weeks scheduled to f chronic conditions and will continue care as well then x facial pain Proteinuria 12/19/2022 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 Borden 09/01/22 at [facility] -Indication: gangrene and ulcers of the left foot, charcot foot, and OM Assessment & Plan (10/03/2023 12:46 PM EDT): Plan for updated prosthetic to accommodate the increased swelling Assessment & Plan (01/31/2023 6:27 PM EDT): ?? Currently completing at home physical therapy, referral for physical therapy at [facility] Assessment & Plan (12/26/2022 8:59 AM EDT): -In process of getting fit for prosthesis -Working with PT 2-3x/week Assessment & Plan (11/06/2022 7:30 AM EDT): -DME for RW requested - 2 wheels, no seat -DME for hospital bed pending Assessment & Plan (10/17/2022 7:40 AM EDT): -Pt interested in returning for consult with surgeon or member of surgeon's team to discuss incision -Referral placed 10/17/22 Supraventricular tachycardia 08/01/2022 Overview (10/03/2023): -Noted incidentally during hospital admission 05/12-05/17/22 -Cont Metoprolol succ 100mg daily -Following with [facility] Cards Assessment & Plan (11/05/2022 9:48 PM EDT): -Reporting intermittent symptoms of low and high pulse. Pulse Ox sent to pharmacy, Plan to track at home and call Cards for sooner follow up appt -ED precautions reviewed Assessment & Plan (08/01/2022 7:40 AM EST): -Upcoming stress test -Continue following with Cardiology -Reviewed ED precautions for any new or worsening symptoms Routine health maintenance 06/20/2022 Overview (03/16/2024): -Optometry: NABORNovember 2021 -Dental: [facility] dental clinic -Pap: reports last 2019 and believes results were normal, referred to UroGYN -Mammo: 11/29/23 BIRADS 1 -Colorectal CA screening: iFOBT neg 12/18/21, due Assessment & Plan (10/03/2023 12:48 PM EDT): Complex care management/medical binder completed today and reviewed with patient -Pt continues to decline all vaccines Assessment & Plan (06/21/2023 9:30 PM EST): -Optometry: November 2021 -Dental: [facility] dental clinic -Pap: reports last 2019 and believes results were normal, referred to UroGYN -Colorectal CA screening: iFOBT neg 12/18/21, due December 2022 ?? Complex care management/medical binder completed today with patient. Medical binder to be picked up next week when elevator in apartment functioning. Assessment & Plan (11/05/2022 9:38 PM EDT): -Optometry: November 2021 -Dental: [facility] dental clinic -Pap: reports last 2019 and believes results were normal, referred to UroGYN -Colorectal CA screening: iFOBT neg 12/18/21, due December 2022 -Mammogram: BIRADS 3 on 01/16/22, due Jul 2022 -Outstanding vaccines: influenza, Tdap, Shingrix, PCV20, COVID ?? [employer]: plan to schedule follow up appts the following specialists: ?? [facility] ?? [facility] ?? [facility] GI ?? C Cards ?? [facility] UroGYN Assessment & Plan (06/20/2022 6:06 PM EST): -Optometry: November 2021 -Dental: [facility] dental clinic -Pap: reports last 2019 and believes results were normal, referred to UroGYN -Colorectal CA screening: iFOBT neg 12/18/21, due December 2022 -Mammogram: BIRADS 3 on 01/16/22, due Jul 2022 -Outstanding vaccines: influenza, Tdap, Shingrix, PCV20, COVID Generalized abdominal pain 06/20/2022 Assessment & Plan (06/20/2022 6:31 PM EST): -Followed by GI, rec lap alexandra for cholithiasis (4 weeks after stopping Plavix) -Try to locate results of most recent abdominal ultrasound to review with patient -Plan to schedule colonoscopy/endoscopy to r/o GI source of anemia/blood loss once eligible (needs to be 6-8 weeks after stopping Plavix) Stage 3b chronic kidney disease 06/14/2022 Overview (12/10/2023): Followed by Nephrology - Dr. Wetzel/LESLYE Williamson 11/20/23: US renal doppler ordered LESLYE Williamson. Impression: 1. No evidence to suggest renal artery stenosis. 2. Mildly echogenic kidneys with normal volume consistent with diagnosis of medical renal disease. Assessment & Plan (12/26/2022 8:55 AM EDT): ?? Followed by Dr. Wetzel ?? Per last consult note in December 2022, plan to recheck UACR, and start Kerendia if elevated. Avoid SGLT2-inhibitors ?? Pt requesting to add microalbumin to routine blood work [id number], ordered Irritable bowel syndrome 09/21/2021 Peripheral vascular disease 09/02/2021 Overview (10/03/2023): -s/p Angioplasty, by Dr. Vigil in 10/2021 -Plavix DC Apr 2022, continues on lifelong aspirin -Currently followed by Dr. Borden -09/25/23: US duplex venous right ordered by Dr. Borden - no evidence of a deep venous thrombosis involving the right lower extremity. Lincoln cyst. Assessment & Plan (08/01/2022 7:29 AM EST): Pt reports upcoming follow up planned with Vascular for repeat scans Assessment & Plan (06/20/2022 6:31 PM EST): -s/p Angioplasty by Dr. Vigil in October 2021 -Per last consult note, stable from vascular/arterial perspective and hopeful wounds on feet will be able to heal -Has DC'd plavix Type 2 diabetes mellitus wit h diabetic chronic kidney disease 08/14/2021 Overview (08/03/2024): Lab Results Component Value Date HGBA1C 14.8 (A) 08/03/2024 HGBA1C 10.5 (A) 10/02/2023 HGBA1C 8.6 (A) 04/12/2023 HGBA1C 8.2 (H) 09/26/2022 HGBA1C 11.3 (H) 08/22/2021 -Followed by [facility] Endo -Cont current medication regimen metformin 1000mg BID Lantus 40 units at bedtime Actos 15mg daily -Movement/exercise as tolerated Pt declines any med adjustments at this time, although future considerations include: -Consider DC of Actos given cardiac conditions -Consider addition of GLP1 - Referred to [facility] clinic on 08/03/24 Avoid SGLT2 inhibitors given hx of BKA (patient preference) Assessment & Plan (10/03/2023 12:44 PM EDT): Pt declines adjustment in medications at this time, encouraged to closely monitor BG and nutrition at home. Assessment & Plan (12/12/2022 9:35 AM EDT): Previous medications: ?? Jardiance discontinued due to concern of SE and hx BKA, continue to monitor BG at home ?? DME prescription for Glucerna to replace Boost sent 11/05/22 Assessment & Plan (11/06/2022 7:30 AM EDT): Jardiance discontinued due to concern of SE, continue to monitor BG at home DME prescription for Glucerna to replace Boost generated and provided to patient Assessment & Plan (08/01/2022 7:32 AM EST): Continue current med regimen, follow up in 3 weeks to discuss specialist care and update care coordination. Sooner PRN. Assessment & Plan (06/20/2022 6:09 PM EST): -A1c 8.0 on 05/01/22 -Followed by [facility] Cristina -Continue on current regimen: -metformin 1000mg BID -Jardiance 10mg daily -Lantus 40 units at bedtime -Actos 15mg daily -Movement/exercise as tolerated Beta thalassemia trait 10/09/2018 Second degree uterine prolapse 10/09/2018 Urinary incontinence 10/09/2018 Overview (12/10/2023): Following with [facility] UroGYN for hx urinary incont and uterine prolapse Assessment & Plan (12/10/2023 11:19 AM EDT): DME request for the following items on 12/10/23 Disposable XL extra-absorbant (heavy) incontinence pads (for wheelchair) Reusable XL extra-absorbant incontinence pads (for bed) Gloves (size medium) Hypercholesterolemia 08/12/2017 Overview (10/03/2023): Continues with atorvastatin 80mg nightly Continues with exetimibe 10mg daily Lab Results Component Value Date CHOLESTEROL 186 09/26/2022 LDLCHOL 110 (H) 09/26/2022 LDLCHOL 98 08/22/2021 TRIG 224 (H) 09/10/2023 TRIG 136 11/20/2022 TRIG 124 09/26/2022 HDLCHOL 53 09/26/2022 CHOLHDLRAT 3.5 09/26/2022 -continue lifestyle modifications Microcytic anemia 08/12/2017 Assessment & Plan (10/03/2023 12:45 PM EDT): Following with [facility] Heme/Onc, plan to repeat labs through PCP [id number]: CBC, CMP, magnesium, sed rate, CRP, microalbumin Continues with Procrit while Hemoglobin < 10 Assessment & Plan (05/14/2023 12:02 PM EST): Following with [facility] Heme/Onc, plan to repeat labs today through PCP Q 2 weeks: ?? CBC, CMP, magnesium, sed rate, CRP, microalbumin Assessment & Plan (12/26/2022 9:00 AM EDT): Previously followed by [facility] Heme/Onc, plan to repeat labs today through PCP Q 2 weeks: ?? CBC, CMP, magnesium, sed rate, CRP, microalbumin Assessment & Plan (11/05/2022 9:50 PM EDT): Previously followed by [facility] Heme/Onc, plan to repeat labs today through PCP. Ordered. Osteoarthritis of both knees 08/12/2017 Primary hypertension 03/16/2016 Overview (08/03/2024): Following with [facility] Cards - Dr. Middleton/CHANDU Yo. September 2023: CTA coronary arteries demonstrated moderate LAD and RCA stenosis. Plan for cardiac cath, although pt deferred. October 2023: CXR ordered for SOB, demonstrated enlarged cardiac silhouette, suspected mild CHF Continue the following med regimen: Chlorthalidone 25mg daily Metoprolol 100mg daily Isosorbide mononitrate 60mg nightly Lisinopril 10mg nightly (Rx Cards) Amlodipine 10mg nightly Furosemide (Rx Cards - last dose 80mg sent January 2024) Assessment & Plan (09/18/2023 8:53 PM EDT): Reviewed lifestyle interventions and ED precautions Resolved Problems Problem Noted Date Diagnosed Date Resolved Date Chronic kidney disease, stage 2 (mild) 12/19/2022 05/12/2023 Osteomyelitis of foot 06/14/20222022 Overview (08/01/2022): Patient was hospitalized 07/09/21 - 07/14/21 with MRI of left foot consistent with cellulitis and possible OM. Per hospital discharge summary - she was seen by ID and initially thought to have osteomyelitis requiring PICC line. Upon further exam and discussion was felt that this is not osteomyelitis but cellulitis. She was maintained on vancomycin during duration of her stay with improvement in her wounds. She was discharged on doxycycline 100mg BID x 5 days. -Pt continued with foot pain mild persistent leukocytosis out patient in the range of WBC 10-15 -Bone scan on 09/25/21 that showed Very prominent abnormality is present in the proximal left foot in all 3 phases. The findings are strongly suspicious for osteomyelitis, likely involving the navicular or cuboid bones. Pt was seen by [facility] ID and initiated on PO doxy x 6 weeks, with possible need for surgical intervention. Following with [facility] Vascular - Dr. Vigil - and podiatry. 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 being followed by ID and vascular Encounters Date Type Department Care Team Description 08/03/2024 9:00 AM EST Office Visit [facility] [address] [place] [address] Rosalind Cardoso FNP Type 2 diabetes mellitus with stage 3 chronic kidney disease, with long-term current use of insulin, unspecified whether stage 3a or 3b CKD (CMS/HCC) (Primary Dx); Routine health maintenance; Type 2 diabetes mellitus with foot ulcer, with long-term current use of insulin (CMS/HCC); Primary hypertension; Stage 3b chronic kidney disease (CMS/HCC); Supraventricular tachycardia (CMS/HCC); 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 (CMS/HCC); Peripheral vascular disease (CMS/HCC) 08/03/2024 Refill [facility] [address] [place] [address] Rosalind Cardoso FNP Type 2 diabetes mellitus with foot ulcer, with long-term current use of insulin (CMS/HCC) 08/03/2024 Telephone [facility] [address] [place] [address] Rosalind Cardoso FNP Referral 08/03/2024 Travel 07/31/2024 Telephone [facility] [address] [place] [address] Glenn Winn MA Chart Prep 07/31/2024 Orders Only [facility] [address] [place] [address] Rosalind Cardoso FNP Type 2 diabetes mellitus with stage 3 chronic kidney disease, with long-term current use of insulin, unspecified whether stage 3a or 3b CKD (CMS/HCC); Primary hypertension; Stage 3b chronic kidney disease ([facility]/HCC); 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 ([facility]/HCC) 07/29/2024 Telephone [facility] [address] [place] [address] Rosalind Cardoso, COCKTAIL SERVER Durable Medical Equipment 07/24/2024 Orders Only [facility] [address] [place] [address] Rosalind Cardoso, COCKTAIL SERVER Type 2 diabetes mellitus with stage 3 chronic kidney disease, with long-term current use of insulin, unspecified whether stage 3a or 3b CKD (CMS/HCC); Myalgia 07/17/2024 Orders Only [facility] [address] [place] [address] Rosalind Cardoso, COCKTAIL SERVER Type 2 diabetes mellitus with stage 3 chronic kidney disease, with long-term current use of insulin, unspecified whether stage 3a or 3b CKD ([facility]/HCC); Primary hypertension; Stage 3b chronic kidney disease ([facility]/HCC); 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 ([facility]/HCC) 07/11/2024 Refill [facility] [address] [place] [address] Rosalind Cardoso, COCKTAIL SERVER Low back pain at multiple sites 07/10/2024 Orders Only [facility] [address] [place] [address] Rosalind Cardoso, COCKTAIL SERVER Type 2 diabetes mellitus with stage 3 chronic kidney disease, with long-term current use of insulin, unspecified whether stage 3a or 3b CKD ([facility]/HCC); Myalgia 07/07/2024 Telephone [facility] [address] [place] [address] Rosalind Cardoso, COCKTAIL SERVER Critical Result 07/03/2024 Orders Only [facility] [address] [place] [address] Rosalind Cardoso, COCKTAIL SERVER Type 2 diabetes mellitus with stage 3 chronic kidney disease, with long-term current use of insulin, unspecified whether stage 3a or 3b CKD (CMS/HCC); Primary hypertension; Stage 3b chronic kidney disease (CMS/HCC); 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 (CMS/HCC) 06/24/2024 Telephone [facility] [address] [place] [address] Glenn Winn MA Chart Prep 06/23/2024 Orders Only GENERIC EXTERNAL DATA DEPARTMENT Provider, Generic External Data 06/22/[address] [address] Rosalind Cardoso FNP Durable Medical Equipment 06/19/2024 Refill [facility] [address] [place] [address] Rosalind Cardoso FNP 06/19/2024 Orders Only [facility] [address] [place] [address] Rosalind Cardoso, TAMY Type 2 diabetes mellitus with stage 3 chronic kidney disease, with long-term current use of insulin, unspecified whether stage 3a or 3b CKD (CMS/HCC); Primary hypertension; Stage 3b chronic kidney disease (CMS/HCC); 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 ([facility]/HCC) 06/12/2024 Telephone [facility] [address] [place] [phone] Loyda Rosario RN Error (VOID this visit) 06/12/2024 Orders Only [address] [address] Rosalind Cardoso, TAMY Type 2 diabetes mellitus with stage 3 chronic kidney disease, with long-term current use of insulin, unspecified whether stage 3a or 3b CKD ([facility]/HCC); Myalgia 06/09/2024 11:00 AM EST Office Visit [facility] [address] [place] [phone] Jae Krishna MD Acute kidney injury ([facility]) (Primary Dx); Leg ulcer, right, limited to breakdown of skin ([facility]); Dysuria 06/09/2024 Telephone [facility] [address] [place] [phone] Catalina Estrada RN 06/08/[address] [phone] Rosalind Cardoso FNP Nurse Triage 06/08/2024 Orders Only GENERIC EXTERNAL DATA DEPARTMENT Provider, Generic External Data 06/05/2024 Orders Only [facility] [address] [place] [address] Rosalind Cardoso FNP Type 2 diabetes mellitus with stage 3 chronic kidney disease, with long-term current use of insulin, unspecified whether stage 3a or 3b CKD ([facility]/HCC); Primary hypertension; Stage 3b chronic kidney disease (CMS/HCC); 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 ([facility]/HCC) 06/02/2024 Telephone [facility] [address] [place] [address] Corine Seals, RN Results 05/29/2024 Orders Only [address] [address] Rosalind Cardoso FNP Type 2 diabetes mellitus with stage 3 chronic kidney disease, with long-term current use of insulin, unspecified whether stage 3a or 3b CKD ([facility]); Myalgia 05/27/2024 Travel 05/26/[address] [address] Rosalind Cardoso FNP Appointment Request 05/22/2024 Orders Only [facility] [address] [place] [address] Rosalind Cardoso FNP Type 2 diabetes mellitus with stage 3 chronic kidney disease, with long-term current use of insulin, unspecified whether stage 3a or 3b CKD ([facility]/HCC); Primary hypertension; Stage 3b chronic kidney disease ([facility]/HCC); 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 ([facility]); Low back pain at multiple sites; Type 2 diabetes mellitus with hyperglycemia, with long-term current use of insulin ([facility]/HCC); Type 2 diabetes mellitus with foot ulcer, with long-term current use of insulin ([facility]); Pure hypercholesterolemia, unspecified; Pain; Type 2 diabetes mellitus with hyperglycemia (CMS/HCC); Type 2 diabetes mellitus with other specified complication, unspecified whether senior care insulin use ([facility]); Fibromyalgia 05/15/2024 Orders Only [facility] [address] [place] [address] Rosalind Cardoso, TAMY Type 2 diabetes mellitus with stage 3 chronic kidney disease, with long-term current use of insulin, unspecified whether stage 3a or 3b CKD ([facility]/HCC); Myalgia 05/08/2024 Orders Only [facility] [address] [place], [place] [phone] Rosalind Cardoso, TAMY Type 2 diabetes mellitus with stage 3 chronic kidney disease, with long-term current use of insulin, unspecified whether stage 3a or 3b CKD ([facility]/HCC); Primary hypertension; Stage 3b chronic kidney disease ([facility]); 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 ([facility]) from Last 3 Months Social History Tobacco Use Types Packs/Day Years Used Date Smoking Tobacco: Never Passive Smoke Exposure: Never Smokeless Tobacco: Never Tobacco Cessation:Counseling Given: Not Answered Alcohol Use Standard Drinks/Week Comments Never 0 [...] Orientation Straight 05/07/2022 10 :30 AM EDT Last Filed Vital Signs Vital Sign Reading Time Taken Comments Blood Pressure 134/70 08/03/2024 9:05 AM EST Pulse 78 08/03/2024 9:05 AM EST Temperature 36.2 ??C (97.2 ??F) 08/03/2024 9:05 AM ES T Respiratory Rate 20 08/03/2024 9:05 AM EST Oxygen Saturation 97% 08/03/2024 9:05 AM EST Inhaled Oxygen Concentration - - Weight 86.6 kg (191 lb) 08/03/2024 9:05 AM EST Height 152.4 cm (5') 08/03/2024 9:05 AM EST Body Mass Index 37.3 08/03/2024 9:05 AM EST Plan of Treatment Upcoming Encounters Date Type Department Care Team (Late st Contact Info) Description 09/04/2024 10:00 AM EST Office Visit [facility] [address] [place] [address] Rosalind Cardoso FNP [address] [place] [address] Health Maintenance Due Date Last Done Comments CT Colonography 1965 Colonoscopy 1965 Colorectal Cancer Screening 1965 FIT DNA/Cologuard 1963 FIT 1965 FOBT 1965 Sigmoidoscopy 1965 Pneumococcal Vaccine: Pediatrics (0 to 5 Years) and At-Risk Patients (6 to 64 Years) (1 of 2 - PCV) 1969 Eye Exam 1973 Alcohol/Substance Use Screening 1975 DTaP/Tdap/Td Vaccines (1 - Tdap) 1982 Pap Smear 1984 Cervical Cancer Screening 1993 HPV/Cotest 1993 Diabetes: Foot Exam 07/31/2023 07/31/2022, 07/31/2022, 07/31/2022, Additional history exists COVID-19 Vaccine ( - season) 2024 Influenza Vaccine (#1) 2024 SDOH Screening 08/01/2024 08/01/2023 RSV Patients and Patients Aged 60 years or older (1 - Risk 60-74 years 1-dose series) 10/02/2024 Postponed from 2023 (Patient Refused) Zoster Vaccines (1 of 2) 10/02/2024 Pos tponed from 2013 (Patient Refused) Diabetes: Hemoglobin A1C 11/01/2024 025, 10/02/2023, 04/12/2023, Additional history exists Mammogram 11/28/2024 11/29/2023, 11/05, 11/23/2022, Additional history exists Lipid Panel 05/29/2025 05/29/2024, 03/0 11/2023, 11/20/2022, Additional history exists Depression Screening 08/03/2025 08/03/2024, 08/03/19 Tobacco Screening 08/03/2025 08/03/2024 HIV Screening Completed 08/22/2021 Hepatitis C Screening Completed 08/22/2021 HIB Vaccines Aged Out No longer eligi ble based on patient's age to complete this topic HPV Vaccines Aged Out No longer eligi ble based on patient's age to complete this topic Hepatitis A Vaccines Aged Out No long er eligible based on patient's age to complete this topic Hepatitis B Vaccines Aged Out No long er eligible based on patient's age to complete this topic IPV Vaccines Aged Out No longer eligi ble based on patient's age to complete this topic Meningococcal Vaccine Aged Out No tre farshad eligible based on patient's age to complete this topic RSV under 20 months Aged Out No longe r eligible based on patient's age to complete this topic Rotavirus Vaccines Aged Out No longer eligible based on patient's age to complete this topic Procedures Procedure Name Priority Date/Time Associated Diagnosis Comments POCT GLYCATED HEMOGLOBIN, TOTAL Routine 08/03/2024 10:14 AM EST Type 2 diabetes mellitus with stage 3 chronic kidney disease, with long-term current use of insulin, unspecified whether stage 3a or 3b CKD ([facility]) POCT GLUCOSE Routine 08/03/2024 10:13 AM EST Type 2 diabetes mellitus with stage 3 chronic kidney disease, with long-term current use of insulin, unspecified whether stage 3a or 3b CKD (CMS/HCC) PROTHROMBIN TIME-INR Routine 07/07/2024 10:24 AM [...] (CMS/HCC) SED RATE BY MODIFIED WESTERGREN Routine 07/07/2024 [...] left leg through tibia and fibula (CMS/HCC) CBC WITH AUTO DIFFERENTIAL Routine 06/23/2024 10:31 AM EST PROTHROMBIN TIME-INR Routine 06/23/2024 10:31 AM EST Type 2 diabetes mellitus with stage 3 chronic kidney disease, with long-term current use of insulin, unspecified whether stage 3a or 3b CKD (CMS/HCC) Primary hypertension Stage 3b chronic kidney disease (CMS/HCC) 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 (CMS/HCC) SED RATE BY MODIFIED WESTERGREN Routine 06/23/2024 [...] tibia and fibula (CMS/HCC) C-REACTIVE PROTEIN Routine 06/23/2024 10 :31 AM EST Type 2 diabetes mellitus with stage 3 chronic kidney disease, with long-term current use of insulin, unspecified whether stage 3a or 3b CKD (CMS/HCC) Myalgia MAGNESIUM Routine 06/23/2024 10:31 AM EST Type 2 diabetes mellitus with stage 3 chronic kidney disease, with long-term current use of insulin, unspecified whether stage 3a or 3b CKD (CMS/HCC) Myalgia TYPE AND SCREEN Routine 06/23/2024 10:29 AM EST CULTURE, URINE, ROUTINE Routine 06/09/2024 12:23 PM EST Dysuria COMPREHENSIVE METABOLIC PANEL Routine 06/08/2024 9:25 AM EST CBC WITH AUTO DIFFERENTIAL Routine 06/08/2024 9:25 AM EST PROTHROMBIN TIME-INR Routine 06/08/2024 9:25 AM EST Type 2 diabetes mellitus with stage 3 chronic kidney disease, with long-term current use of insulin, unspecified whether stage 3a or 3b CKD (CMS/HCC) Primary hypertension Stage 3b chronic kidney disease (CMS/HCC) 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 (CMS/HCC) C-REACTIVE PROTEIN Routine 06/08/2024 9: 25 AM EST Type 2 diabetes mellitus with stage 3 chronic kidney disease, with long-term current use of insulin, unspecified whether stage 3a or 3b CKD (CMS/HCC) Primary hypertension Stage 3b chronic kidney disease (CMS/HCC) 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 (CMS/HCC) SED RATE BY MODIFIED WESTERGREN Routine 06/08/2024 9:25 AM EST Type 2 diabetes mellitus with stage 3 chronic kidney disease, with long-term current use of insulin, unspecified whether stage 3a or 3b CKD (CMS/HCC) Primary hypertension Stage 3b chronic kidney disease (CMS/HCC) 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 (CMS/HCC) MAGNESIUM Routine 06/08/2024 9:25 AM EST Type 2 diabetes mellitus with stage 3 chronic kidney disease, with long-term current use of insulin, unspecified whether stage 3a or 3b CKD (CMS/HCC) Primary hypertension Stage 3b chronic kidney disease (CMS/HCC) 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 (CMS/HCC) LIPID PANEL, STANDARD Routine 05/29/2024 2:18 PM EST Type 2 diabetes mellitus with stage 3 chronic kidney disease, with long-term current use of insulin, unspecified whether stage 3a or 3b CKD (CMS/HCC) COMPREHENSIVE METABOLIC PANEL Routine 05/29/2024 2:18 PM EST Type 2 diabetes mellitus with stage 3 chronic kidney disease, with long-term current use of insulin, unspecified whether stage 3a or 3b CKD (CMS/HCC) CBC WITH AUTO DIFFERENTIAL Routine 05/29/2024 2:18 PM EST Type 2 diabetes mellitus with stage 3 chronic kidney disease, with long-term current use of insulin, unspecified whether stage 3a or 3b CKD (CMS/HCC) C-REACTIVE PROTEIN Routine 05/29/2024 2: 18 PM EST Type 2 diabetes mellitus with stage 3 chronic kidney disease, with long-term current use of insulin, unspecified whether stage 3a or 3b CKD (CMS/HCC) Primary hypertension Stage 3b chronic kidney disease (CMS/HCC) 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 (CMS/HCC) SED RATE BY MODIFIED WESTERGREN Routine 05/29/2024 2:18 PM EST Type 2 diabetes mellitus with stage 3 chronic kidney disease, with long-term current use of insulin, unspecified whether stage 3a or 3b CKD (CMS/HCC) Primary hypertension Stage 3b chronic kidney disease (CMS/HCC) 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 (CMS/HCC) MAGNESIUM Routine 05/29/2024 2:18 PM EST Type 2 diabetes mellitus with stage 3 chronic kidney disease, with long-term current use of insulin, unspecified whether stage 3a or 3b CKD (CMS/HCC) Myalgia PROTHROMBIN TIME-INR Routine 05/29/2024 2:18 PM EST Type 2 diabetes mellitus with stage 3 chronic kidney disease, with long-term current use of insulin, unspecified whether stage 3a or 3b CKD (CMS/HCC) Myalgia BI MAMMOGRAM SCREENING TOMOSYNTHESIS BILATERAL Routine 11/29/2023 2:40 PM EDT ZZZ HISTORICAL HEPATITIS C AB W/REFL TO HCV RNA, QN, PCR Routine 08/22/2021 8:22 AM EST HIV 1/2 ANTIGEN/ANTIBODY, FOURTH GENERATION W/RFL Routine 08/22/2021 8:22 AM EST from Last 3 Months or Most Recently Relevant to Health Maintenance Results * (ABNORMAL) POCT HGB A1C (08/03/2024 10:14 AM EST) Hemoglobin A1C 14.8(A) 4.0 - 6.0 % QC Media Lot # [id number] Lot# Expiration Date [id number] Blood 08/03/2024 10:1 4 AM EST [facility] POINT OF CARE TEST ENTER/EDIT ORDERABLES Final Result * (ABNORMAL) POCT Glucose (08/03/2024 10:13 AM EST) Glucose Blood, POC 247(A) 60 - 200 mg/dL Comment:fasting QC Media Lot # [id number] Lot# Expiration Date [id number] Blood Capillary blood specimen / Unknown 08/03/2024 10:13 AM EST [facility] POINT OF CARE TEST ENTER/EDIT ORDERABLES Final Result * (ABNORMAL) Sed Rate by Modified Javierren (07/07/2024 10:24 AM EST) Only the most recent of4 resultswithin the time period is included. Erythrocyte Sedimentation Rate 34(H) 0 - 20 MM/HR [facility] Comment:Patients with polycy themia and many hemoglobin abnormalitiesmay have depressed sed rates whereas patients with anemiamay have elevated sed rates. Blood Venous blood specimen / Unknown 07/07/2024 10:24 AM EST 07/07/2024 10:24 AM EST [facility] LAB BLOOD ORDERABLES Final Res ult [facility] [address] [place] [phone] * (ABNORMAL) Prothrombin Time-INR (07/07/2024 10:24 AM EST) Only the most recent of4 resultswithin the time period is included. Prothrombin Time 10.7(L) 10.9 - 12.4 SEC [facility] INTERNATIONAL NORM RATIO 0.9 0.9 - 1.1 [facility] Comment:INTERNATIONAL NORMAL IZED RATIO [...] AM EST 07/07/2024 10:24 AM EST Rosalind Sonitus [employer] [facility] LAB BLOOD ORDERABLES Final Res ult Performing Organization Address [facility] Co de Phone Number [facility] [address] [place] [phone] * (ABNORMAL) C-reactive Protein (07/07/2024 10:24 AM EST) Only the most recent of4 resultswithin the time period is included. C Reactive Protein 1.00(H) < or = 0.50 mg/dL [facility] Blood Venous blood specimen / Unknown 07/07/2024 10:24 AM EST 07/07/2024 10:24 AM EST [employer] [facility] LAB BLOOD ORDERABLES Final Res ult Performing Organization Address [facility] Co de Phone Number [facility] [address] [place] [phone] * Magnesium (07/07/2024 10:24 AM EST) Only the most recent of4 resultswithin the time period is included. Magnesium 1.8 1.6 - 2.6 mg/dL [facility] Blood Venous blood specimen / Unknown 07/07/2024 10:24 AM EST 07/07/2024 10:24 AM EST us Rosalind Cardoso [employer] LAB BLOOD ORDERABLES Final Res ult [facility] [address] [place] [phone] [phone] * (ABNORMAL) Comprehensive Metabolic Panel (07/07/2024 10:24 AM EST) Only the most recent of4 resultswithin the time period is included. Sodium 135 135 - 145 mmol/L [facility] Potassium 3.7 3.3 - 5.1 mmol/L [facility] Chloride 102 96 - 108 mmol/L [facility] Carbon Dioxide 25 22 - 29 mmol/L [facility] Anion Gap 12 12 - 20 [facility] Urea Nitrogen (BUN) 47(H) 9 - 16 mg/dL [facility] Creatinine, Serum 1.54(H) 0.5 - 1.4 mg/dL [facility] Estimated Glomerular Filt Rate 34 [facility] Comment:Chronic Kidney Disea se: Estimated GFR < 60 mL/min/1.35n1Renako Kidney Disease: Estimated GFR < 15 mL/min/1.73m2 Glucose 400(HH) 60 - 115 mg/dL [facility] Comment:Critical value for G RADHA: Results called to and read backby: KAYLEE Gallegos Person calling: OLESYA Date: 07/07/24 Time:1102 Calcium 9.6 8.4 - 10.2 mg/dL [facility] Bilirubin, Total 0.2 0.0 - 1.0 mg/dL [facility] Aspartate Amino Transferase 17 5 - 31 U/L [facility] Alanine Aminotransferase 9 0 - 31 U/L [facility] Total Protein 7.3 6.5 - 8.0 g/dL [facility] Albumin Level 3.5 3.5 - 5.0 g/dL [facility] Alkaline Phosphatase 109 39 - 117 U/L [facility] Blood Venous blood specimen / Unknown 07/07/2024 10:24 AM EST 07/07/2024 10:24 AM EST Rosalind Cardoso [employer] LAB BLOOD ORDERABLES Final Res ult [facility] [address] [place] [phone] * (ABNORMAL) CBC auto differential (06/23/2024 10:31 AM EST) Only the most recent of3 resultswithin the time period is included. White Blood Count 9.3 4.8 - 10.8 X10*3/uL [facility] Red Blood Count 5.68(H) 4.20 - 5.50 X10*6/uL [facility] Hemoglobin 10.9(L) 12.0 - 16.0 g/dl [facility] Hematocrit 36.2(L) 37.0 - 47.0 % [facility] Mean Corpuscular Volume 63.7(L) 80.0 - 98.0 fL [facility] Mean Corpuscular Hemoglobin 19.2(L) 27.0 - 33.0 pg [facility] Mean Corpuscular HGB Conc 30.1(L) 31.0 - 35.0 g/dl [facility] Red Cell Distribution Width 18.0(H) 11.0 - 16.0 % [facility] Platelet Count 399 160 - 400 X10*3/uL [facility] Mean Platelet Volume 9.5 9.4 - 12.3 fL [facility] Neutrophils Percent Auto 66.9 45 - 73 % [facility] Imm Gran Pct Auto 0.4 0.0 - 0.4 % [facility] Lymphocytes Percent Auto 21.1 20 - 40 % [facility] Monocytes Percent Auto 7.6 2 - 11 % [facility] Eosinophils Percent Auto 3.2 0 - 4 % [facility] Basophils Percent Auto 0.8 0 - 2 % [facility] NRBC Pct Auto 0.0 0.0 - 0.2 /100WBC [facility] Neutrophils Absolute Auto 6.2 2.0 - 8.3 x10*3/uL [facility] Imm Gran Abs Auto 0.04(H) 0.00 - 0.03 X10*3/uL [facility] Lymphocytes Absolute Auto 2.0 1.2 - 4.9 X10*3/uL [facility] Monocytes Absolute Auto 0.7 0.1 - 1.2 X10*3/uL [facility] Eosinophils Absolute Auto 0.3 0.0 - 0.4 X10*3/uL [facility] Basophils Absolute Auto 0.1 0.0 - 0.2 X10*3/uL [facility] NRBC Abs Auto 0.000 0.0 - 0.012 X10*3/uL [facility] 06/23/2024 10:3 1 AM EST 06/23/2024 10:31 AM EST us Generic External Data Provider LAB BLOOD ORDERAB LES Final Result Performing Organization Address City/[facility]/ZIP Co de Phone Number [facility] [address] [place] [phone] * Type and screen (06/23/2024 10:29 AM EST) Blood Type OP [facility] Antibody Screen NEGATIVE [facility] 06/23/2024 10:2 9 AM EST 06/23/2024 10:50 AM EST Generic External Data Provider LAB BLOOD BANK TE ST ORDERABLES Final Result Performing Organization Address [facility]/ZIP Co de Phone Number [facility] [address] [place] [phone] * Culture, Urine, Routine (06/09/2024 12:23 PM EST) Urine Urine specimen obtained by clean catch procedure / Unknown 06/09/2024 12:23 PM EST 06/09/2024 5:32 PM EST Comment:UACC Narrative [facility] - 06/12/2024 8:31 AM EST Escherichia coli Quant > 100,000 cfu/mL Escherichia coli: Ampicillin 4(S) Escherichia coli: Cefazolin <=1(S) Escherichia coli: Cefepime <=0.12(S) Escherichia coli: Ceftriaxone <=0.25(S) Escherichia coli: Ciprofloxacin <=0.06(S) Escherichia coli: Gentamicin <=1(S) Escherichia coli: Nitrofurantoin <=16(S) Escherichia coli: Trimethoprim/Sulfamethoxazole <=20(S) Specimen Source: Urine clean catch us Jae Krishna MD LAB MICROBIOLOGY - GENERAL ORDER CHANDLER Final Result [facility] [address] [place] [phone] * (ABNORMAL) Lipid Panel, Standard (05/29/2024 2:18 PM EST) Triglycerides 266(H) <150 mg/dL [facility] Comment:Desirable Triglyceri de: less than 150 mg/dLBorderline High Triglyceride 150-199 mg/dLHigh Triglyceride: 200-499 mg/dLVery High Triglyceride: greater than or equal to 5OO mg/dL Cholesterol 250(H) <200 mg/dL [facility] Comment:Desirable Cholestero l: less than 200 mg/dLBorderline High Cholesterol: 200-239 mg/dLHigh Cholesterol: greater than 239 mg/dL LDL Cholesterol Calculated 161(H) <100 mg/dL [facility] Comment:Desirable LDL: less than 100 mg/dLNear Optimal/Above Optimal LDL: 110- 129 mg/dLBorderline High LDL: 130-159 mg/dLHigh LDL: 160-189 mg/dLVery High LDL: greater than or equal to 190 mg/dL HDL Cholesterol 36(L) >40 mg/dL [facility] Comment:Desirable HDL: great er than 40 mg/dL Note: This HDL assay may give artificially low results in patients with liver disease. 05/29/2024 2:18 PM EST 05/29/2024 2:18 PM EST us Generic External Data Provider LAB BLOOD ORDERAB LES Final Result [facility] [address] [place] [phone] * BI Mammogram Screening Tomosynthesis Bilateral (11/29/2023 2:40 PM EDT) Anatomical Region Laterality Modality Breast Bilateral Mammography 11/29/2023 2:40 PM EDT Narrative 12/27/2023 3:26 PM EDT ? [facility] ? [address] ?[place] [address] ? Mammography Report ? Signed ? Patient: Manus,Mitra ?MR#: [id number] ? : 1965 ?Acct:[id number] ? Age/Sex: 58 / F ?ADM Date: 11/29/23 ? Loc: HO.MAMMO ? Attending Dr: Rosalind Cardoso [employer]TA[employer] ? Ordering Physician: Rosalind Cardoso [employer]OCKTAIL SERVER ?Results: 1Negat ?? moncho ? Date of Service: 11/29/23 ?Follow Up: 1 Year From Orig ?? inal Mammogram ? Procedure(s): MM tomosynthesis screening BI ?? Accession Number(s): [id number] ? cc: Janae,Rosalind [employer]OCKTAIL SERVER ? EXAMINATION: ?? MM SCREENING DIGITAL BREAST [...] 1522 ? DD/ 1440 ? TD/TT: ? Coin Collector: ? Procedure Note Mauri, Image - 12/27/2023 [facility] [address] [place] [address] Mammography Report Signed Patient: Dany Parish#: [id number] : 1965Acct:[id number] Age/Sex: 58 / FADM Date: 11/29/23 Loc: [facility] Attending Dr: Rosalind Cardoso [employer]TAIL SERVER Ordering Physician: Rosalind Cardoso FNPResults: 1Negat moncho Date of Service: 11/29/23Follow Up: 1 Year From Orig inal Mammogram Procedure(s): MM tomosynthesis screening BI Accession Number(s): [id number] cc: Rosalind Cardoso EXAMINATION: MM SCREENING DIGITAL [...] in OV> 12/27/23 1522 DD/ 1440 TD/TT: Coin Collector: Rosalind MORELOS IMG BI PROCEDURES Final Result * HEPATITIS C AB W/REFL TO HCV RNA, QN, PCR (08/22/2021 8:22 AM EST) HEPATITIS C ANTIBODY NON-REACT [facility] NON-REACT [facility] INDEX 0.02 <1.00 [facility] Comment: ?? HCV antibody was non-reactive. There is no laboratory ?? evidence of HCV infection. ?? In most cases, no further action is required. However, if recent HCV exposure is suspected, a test for HCV RNA (test code 10099) is suggested. ?? For additional information please refer to http://education.[employer]faq/NBH03b3 (This link is being provided for informational/ educational purposes only.) ?? 08/22/2021 8:22 AM EST us Rosalind MORELOS HISTORICAL/NON ORDERABLE LABS Final Result Performing Organization Address [facility]/ZIP Co de Phone Number [facility] [address] * HIV 1/2 ANTIGEN/ANTIBODY,FOURTH GENERATION W/RFL (08/22/2021 8:22 AM EST) HIV-1/2 ANTIGEN AND ANTIBODIES, 4TH GENERATION W/ REFLEX NON-REACT [facility] NON-REACT [facility] [facility] Comment: HIV-1 antigen and HIV-1/HIV-2 antibodies were not detected. There is no laboratory evidence of HIV infection. ?? PLEASE NOTE: This information has been disclosed to you from records whose confidentiality may be protected by state law. ??If your state requires such protection, then the state law prohibits you from making any further disclosure of the information without the specific written consent of the person to whom it pertains, or as otherwise permitted by law. A general authorization for the release of medical or other information is NOT sufficient for this purpose. ? For additional information please refer to http://education.[employer]faq/CAW242 (This link is being provided for informational/ educational purposes only.) ? The performance of this assay has not been clinically validated in patients less than 2 years old. ?? 08/22/2021 8:22 AM EST us Rosalind Cardoso COCKTAIL SERVER LAB BLOOD ORDERABLES Final Res ult Performing Organization Address [facility] Co de Phone Number [facility] [address] from Last 3 Months or Most Recently Relevant to Health Maintenance Insurance [facility] Care Teams Tunnel Elastic Operator Zigzag Relationship Specialty Start Date End Date Rosalind Cardoso FNP [address] [place] [address] PCP - General Family Medicine 04/28/21
--- OUTSIDE RECORDS SUMMARY | 2024-08-04 10:21 | XMS_ITS | Encounter Summary ---
Author Organization [employer] Address [address] [facility] 7t [place] [address] Care Team Providers Care Central Sterilization Technician Name Role Phone Rosalind Cardoso Primary Care Provider [phone] Encounter Details Date Type Department Care Team (Late st Contact Info) Description 03/06/2024 Orders Only [facility] MEDICINE [address] [place] [address] Rosalind Cardoso FNP [address] [place] [address] Type 2 diabetes mellitus with stage 3 [...] Upcoming Encounters Date Type Department Care Team ([facility] st Contact Info) Description 09/04/2024 10:00 AM EST Office Visit [facility] MED & PEDS 505 [place] [address] Rosalind Cardoso FNP 505 [place] [address] documented as of this encounter Visit Diagnoses [...] documented as of this encounter Care Teams Central Sterilization Technician Relationship Specialty Start Date End Date Rosalind Cardoso FNP [address] [place] [address] PCP - General Family Medicine 04/28/21 documented as of this encounter
--- OUTSIDE RECORDS SUMMARY | 2024-08-04 10:21 | XMS_ITS | Encounter Summary ---
Author Organization [employer] Address 75 [facility] 7t [place] [address] Care Team Providers Care Manager Location Name Role Phone Rosalind Cardoso Primary Care Provider [phone] Encounter Details Date Type Department Care Team ([facility] st Contact Info) Description 05/08/2024 Orders Only [facility] MED & PEDS [address] [place], [place] [phone] Rosalind Cardoso FNP 505 [place] [address] Type 2 diabetes mellitus with stage 3 [...] Description 09/04/2024 10:00 AM EST Office Visit [facility] MED & PEDS 505 [place] [address] Rosalind Cardoso FNP [address] [place] [address] documented as of this encounter Visit Diagnoses [...] documented as of this encounter Care Teams Manager Location Relationship Specialty Start Date End Date Rosalind Cardoso FNP [address] [place] [address] PCP - General Family Medicine 04/28/21 documented as of this encounter
--- OUTSIDE RECORDS SUMMARY | 2024-08-04 10:21 | XMS_ITS | Encounter Summary ---
Author Organization [employer] Address [address] [place] [address] 7t [place] [address] Care Team Providers Care Horticulture Superintendent Name Role Phone Rosalind Cardoso Primary Care Provider [phone] Reason for Visit * Reason Onset Date Comments Nurse Triage 06/08/2024 Encounter Details Date Type Department Care Team ([facility] st Contact Info) Description 06/08/2024 Telephone [facility] MEDICINE [address] [place] [address] Rosalind Cardoso FNP [address] [place] [address] Nurse Triage Social History Tobacco Use Types Packs/Day Years [...] encounter Miscellaneous Notes * Telephone Encounter - Felicita Solitario RN - 06/08/2024 2:06 PM EST Triage call Pt reports just found a scab on the right lower extremity. Pt reports swelling present consistently to the point where wearing prosthesis is difficult. Pt reports a scab produced over sore 3 days ago with an indentation under the scab. Neg for drainage. Area is size of a nereyda. Pt is advised to come to [facility] today to be seen by provider but, unable to obtain transportation. Pt will come tomorrow to [facility]. Hours 830am - 800pm given. Insurance is verified as active. Protocol Used: Cuts and Lacerations (Adult) Protocol-Based Disposition: See in Office or Video Visit Today Override (Final) Disposition: See in Office or Video Visit Today or Tomorrow Override Reason: Transportation not available Positive Triage Question: * Patient wants to be seen * All higher-acuity triage questions were negative Care Advice Discussed: * Reasons To Call Back - Dirt in the wound persists after 15 minutes of scrubbing - Looks infected (pus, redness, increasing tenderness) - Doesn't heal within 14 days - Bleeding does not stop after using direct pressure - You become worse * Telephone Encounter - James Fernandez - 06/08/2024 1:47 PM EST TC from pt reports sore on right leg . Noticed a few days ago . Denies any discharge or blood coming from sore. documented in this encounter Plan of Treatment Upcoming Encounters Date Type Department Care Team (Late st Contact Info) Description 09/04/2024 10:00 AM EST Office Visit [facility] MED & PEDS 505 [place] [address] Rosalind Cardoso FNP 505 [place] [address] documented as of this encounter Visit Diagnoses Diagnosis Employs prosthetic leg documented in this encounter Additional Health Concerns Assessment Noted Time PHQ-9 Depression Total Score: 0 12/26/19 23 1:09 PM EDT documented as of this encounter Care Teams Horticulture Superintendent Relationship Specialty Start Date End Date Rosalind Cardoso FNP [address] [place] [address] PCP - General Family Medicine 04/28/21 documented as of this encounter
--- OUTSIDE RECORDS SUMMARY | 2024-08-04 10:21 | XMS_ITS | Encounter Summary ---
Author Organization [employer] Address 75 [facility] 7t [place] [address] Care Team Providers Care Mechanical Facilities Technician Name Role Phone Rosalind aCrdoso Primary Care Provider [phone] Encounter Details Date Type Department Care Team (Late st Contact Info) Description 07/10/2024 Orders Only [facility] MEDICINE [address] [place] [address] Rosalind Cardoso FNP [address] [place] [address] Type 2 diabetes mellitus with stage 3 [...] Upcoming Encounters Date Type Department Care Team ([facility] st Contact Info) Description 09/04/2024 10:00 AM EST Office Visit [facility] MED & PEDS 505 [place] [address] Rosalind Cardoso FNP 505 [place] [address] documented as of this encounter Visit Diagnoses [...] documented as of this encounter Care Teams Mechanical Facilities Technician Relationship Specialty Start Date End Date Rosalind Cardoso FNP [address] [place] [address] PCP - General Family Medicine 04/28/21 documented as of this encounter
--- OUTSIDE RECORDS SUMMARY | 2024-08-04 10:21 | XMS_ITS | Encounter Summary ---
Author Organization [employer] Address 75 [facility] 7t [place] [address] Care Team Providers Care Roustabout Supervisor Name Role Phone Roaslind Cardoso TAMY Primary Care Provider [phone] Encounter Details Date Type Department Care Team (Latest Contact Info) Description 08/03/2024 Travel Social History Tobacco Use Types Packs/Day Years Used Date Smoking Tobacco: Never Passive Smoke Exposure: Never Smokeless Tobacco: Never Alcohol Use Standard [...] Upcoming Encounters Date Type Department Care Team ([facility] st Contact Info) Description 09/04/2024 10:00 AM EST Office Visit [facility] MED & PEDS 505 [place] [address] Rosalind Cardoso FNP 505 [place] [address] documented as of this encounter Visit Diagnoses Not on filedocumented in this encounter Additional Health Concerns Assessment Noted Time PHQ-9 Depression Total Score: 6 08/03/19 25 9:07 AM EST documented as of this encounter Care Teams Roustabout Supervisor Relationship Specialty Start Date End Date Rosalind Cardoso FNP [address] [place] [address] PCP - General Family Medicine 04/28/21 documented as of this encounter
--- OUTSIDE RECORDS SUMMARY | 2024-08-04 10:21 | XMS_ITS | Encounter Summary ---
Author Organization [employer] Address 75 [facility] 7t [place] [address] Care Team Providers Care Tubing Drier Name Role Phone Rosalind Cardoso Primary Care Provider [phone] Encounter Details Date Type Department Care Team ([facility] st Contact Info) Description 07/17/2024 Orders Only [facility] CHC MED & PEDS [address] [place], [place] [phone] Rosalind Cardoso FNP 505 [place] [address] Type 2 diabetes mellitus with stage 3 [...] [facility] MED & PEDS [address] [place] [address] Rosalind Cardoso FNP [address] [place] [address] documented as of this encounter Visit Diagnoses [...] documented as of this encounter Care Teams Tubing Drier Relationship Specialty Start Date End Date Rosalind Cardoso FNP [address] [place] [address] PCP - General Family Medicine 04/28/21 documented as of this encounter
--- OUTSIDE RECORDS SUMMARY | 2024-08-04 10:21 | XMS_ITS | Encounter Summary ---
Author Organization [employer] Address 75 [facility] 7t [place] [address] Care Team Providers Care Inventory Assistant Name Role Phone Rosalind Cardoso Primary Care Provider [phone] Encounter Details Date Type Department Care Team (Late st Contact Info) Description 05/29/2024 Orders Only [facility] MEDICINE [address] [place] [address] Rosalind Cardoso FNP [address] [place] [address] Type 2 diabetes mellitus with stage 3 [...] 10:00 AM EST Office Visit [facility] MED & PEDS 505 [place] [address] Rosalind Cardoso FNP 505 [place] [address] documented as of this encounter Procedures Procedure Name Priority Date/Time Associated Diagnosis Comments CBC WITH AUTO DIFFERENTIAL Routine 05/29/2024 2:18 PM EST Type 2 diabetes mellitus with stage 3 chronic kidney disease, with long-term current use of insulin, unspecified whether stage 3a or 3b CKD (CMS/HCC) LIPID PANEL, STANDARD Routine 05/29/2024 2:18 [...] whether stage 3a or 3b CKD (CMS/HCC) documented in this encounter Results * (ABNORMAL) Lipid Panel, Standard (05/29/2024 2:18 PM EST) Triglycerides 266(H) <150 mg/dL [facility] Comment:Desirable Triglyceri de: less than 150 mg/dLBorderline High Triglyceride 150-199 mg/dLHigh Triglyceride: 200-499 mg/dLVery High Triglyceride: greater than or equal to 5OO mg/dL Cholesterol 250(H) <200 mg/dL [facility] Comment:Desirable Cholestero l: less than 200 mg/dLBorderline High Cholesterol: 200-239 mg/dLHigh Cholesterol: greater than 239 mg/dL LDL Cholesterol Calculated 161(H) <100 mg/dL [facility] Comment:Desirable LDL: less than 100 mg/dLNear Optimal/Above Optimal LDL: 110- 129 mg/dLBorderline High LDL: 130-159 mg/dLHigh LDL: 160-189 mg/dLVery High LDL: greater than or equal to 190 mg/dL HDL Cholesterol 36(L) >40 mg/dL [facility] Comment:Desirable HDL: great er than 40 mg/dL Note: This HDL assay may give artificially low results in patients with liver disease. 05/29/2024 2:18 PM EST 05/29/2024 2:18 PM EST us Generic External Data Provider LAB BLOOD ORDERAB LES Final Result [facility] [address] [place] [phone] * (ABNORMAL) Comprehensive Metabolic Panel (05/29/2024 2:18 PM EST) Sodium 134(L) 135 - 145 mmol/L [facility] Potassium 4.0 3.3 - 5.1 mmol/L [facility] Chloride 99 96 - 108 mmol/L [facility] Carbon Dioxide 26 22 - 29 mmol/L [facility] Anion Gap 13 12 - 20 [facility] Urea Nitrogen (BUN) 41(H) 9 - 16 mg/dL [facility] Creatinine, Serum 1.49(H) 0.5 - 1.4 mg/dL [facility] Estimated Glomerular Filt Rate 36 [facility] Comment:Chronic Kidney Disea se: Estimated GFR < 60 mL/min/1.75k3Erwala Kidney Disease: Estimated GFR < 15 mL/min/1.73m2 Glucose 370(HH) 60 - 115 mg/dL [facility] Comment:Critical value for t est(s): GLUR Results called to concepcion back by: KJ Gallegos Person calling: JOHNY Date:05/29/24Time:1558 Calcium 9.5 8.4 - 10.2 mg/dL [facility] Bilirubin, Total 0.3 0.0 - 1.0 mg/dL [facility] Aspartate Amino Transferase 65(H) 5 - 31 U/L [facility] Alanine Aminotransferase 64(H) 0 - 31 U/L [facility] Total Protein 6.9 6.5 - 8.0 g/dL [facility] Albumin Level 3.4(L) 3.5 - 5.0 g/dL [facility] Alkaline Phosphatase 146(H) 39 - 117 U/L [facility] 05/29/2024 2:18 PM EST 05/29/2024 2:18 PM EST us Generic External Data Provider LAB BLOOD ORDERAB LES Final Result [facility] [address] [place] [phone] * (ABNORMAL) CBC auto differential (05/29/2024 2:18 PM EST) White Blood Count 12.0(H) 4.8 - 10.8 X10*3/uL [facility] Red Blood Count 4.01(L) 4.20 - 5.50 X10*6/uL [facility] Hemoglobin 7.8(L) 12.0 - 16.0 g/dl [facility] Hematocrit 25.3(L) 37.0 - 47.0 % [facility] Mean Corpuscular Volume 63.1(L) 80.0 - 98.0 fL [facility] Mean Corpuscular Hemoglobin 19.5(L) 27.0 - 33.0 pg [facility] Mean Corpuscular HGB Conc 30.8(L) 31.0 - 35.0 g/dl [facility] Red Cell Distribution Width 15.3 11.0 - 16.0 % [facility] Platelet Count 312 160 - 400 X10*3/uL [facility] Mean Platelet Volume 10.4 9.4 - 12.3 fL [facility] Neutrophils Percent Auto 71.1 45 - 73 % [facility] Imm Gran Pct Auto 0.9(H) 0.0 - 0.4 % [facility] Lymphocytes Percent Auto 18.6(L) 20 - 40 % [facility] Monocytes Percent Auto 6.4 2 - 11 % [facility] Eosinophils Percent Auto 2.6 0 - 4 % [facility] Basophils Percent Auto 0.4 0 - 2 % [facility] NRBC Pct Auto 0.2 0.0 - 0.2 /100WBC [facility] Neutrophils Absolute Auto 8.6(H) 2.0 - 8.3 x10*3/uL [facility] Imm Gran Abs Auto 0.11(H) 0.00 - 0.03 X10*3/uL [facility] Lymphocytes Absolute Auto 2.2 1.2 - 4.9 X10*3/uL [facility] Monocytes Absolute Auto 0.8 0.1 - 1.2 X10*3/uL [facility] Eosinophils Absolute Auto 0.3 0.0 - 0.4 X10*3/uL [facility] Basophils Absolute Auto 0.1 0.0 - 0.2 X10*3/uL [facility] NRBC Abs Auto 0.020(H) 0.0 - 0.012 X10*3/uL [facility] 05/29/2024 2:18 PM EST 05/29/2024 2:18 PM EST us Generic External Data Provider LAB BLOOD ORDERAB LES Final Result [facility] [address] [place] [phone] documented in this encounter Visit Diagnoses Diagnosis Type 2 diabetes mellitus with stage 3 chronic kidney disease, with long-term current use of insulin, unspecified whether stage 3a or 3b CKD ([facility]) Myalgia Unspecified myalgia and myositis documented in this encounter Additional Health Concerns Assessment Noted Time PHQ-9 Depression Total Score: 0 12/26/19 23 1:09 PM EDT documented as of this encounter Care Teams Inventory Assistant Relationship Specialty Start Date End Date Rosalind Cardoso FNP [address] [place] [address] PCP - General Family Medicine 04/28/21 documented as of this encounter
--- OUTSIDE RECORDS SUMMARY | 2024-08-04 10:21 | XMS_ITS | Encounter Summary ---
Author Organization [employer] Address 75 [facility] 7t [place] [address] Care Team Providers Care Dialysis Social Worker Name Role Phone Rosalind Cardoso Primary Care Provider Encounter Details Date Type Department Care Team (Late st Contact Info) Description 07/24/2024 Orders Only [facility] MEDICINE [address] [place] [address] Rosalind Cardoso FNP [address] [place] [address] Type 2 diabetes mellitus with stage 3 [...] Upcoming Encounters Date Type Department Care Team ([facility] st Contact Info) Description 09/04/2024 10:00 AM EST Office Visit [facility] MED & PEDS 505 [place] [address] Rosalind Cardoso FNP 505 [place] [address] documented as of this encounter Visit Diagnoses [...] documented as of this encounter Care Teams Dialysis Social Worker Relationship Specialty Start Date End Date Rosalind Cardoso FNP [address] [place] [address] PCP - General Family Medicine 04/28/21 documented as of this encounter
--- OUTSIDE RECORDS SUMMARY | 2024-08-04 10:21 | XMS_ITS | Encounter Summary ---
Author Organization [employer] Address 75 [facility] 7t [place] [address] Care Team Providers Care Frame Straightener Name Role Phone Rosalind Cardoso Primary Care Provider [phone] Encounter Details Date Type Department Care Team (Late st Contact Info) Description 03/20/2024 Orders Only [facility] MEDICINE [address] [place] [address] Rosalind Cardoso FNP [address] [place] [address] Type 2 diabetes mellitus with stage 3 [...] Upcoming Encounters Date Type Department Care Team ([facility] st Contact Info) Description 09/04/2024 10:00 AM EST Office Visit [facility] MED & PEDS 505 [place] [address] Rosalind Cardoso FNP [address] [place] [address] documented as of this encounter Visit Diagnoses [...] documented as of this encounter Care Teams Frame Straightener Relationship Specialty Start Date End Date Rosalind Cardoso FNP [address] [place] [address] PCP - General Family Medicine 04/28/21 documented as of this encounter
--- OUTSIDE RECORDS SUMMARY | 2024-08-04 10:21 | XMS_ITS | Encounter Summary ---
Author Organization [employer] Address [address] [place] [address] 7t [place] [address] Care Team Providers Care Database Management System Specialist Name Role Phone Rosalind Cardoso Primary Care Provider [phone] Encounter Details Date Type Department Care Team ([facility] st Contact Info) Description 05/22/2024 Orders Only [facility] MED & PEDS [address] [place], [place] [phone] Rosalind Cardoso FNP [address] [place] [address] Type 2 diabetes mellitus with stage 3 chronic kidney disease, with long-term current use of insulin, unspecified whether stage 3a or 3b CKD (CMS/HCC); Primary hypertension; Stage 3b chronic kidney disease (CMS/HCC); 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 (CMS/HCC); Low back pain at multiple sites; Type 2 diabetes mellitus with hyperglycemia, with long-term current use of insulin (CMS/HCC); Type 2 diabetes mellitus with foot ulcer, with long-term current use of insulin (CMS/HCC); Pure hypercholesterolemia, unspecified; Pain; Type 2 diabetes mellitus with hyperglycemia (CMS/HCC); Type 2 diabetes mellitus with other specified complication, unspecified whether terminal system operator insulin use (CMS/HCC); Fibromyalgia Social History Tobacco Use Types Packs/Day Years [...] Upcoming Encounters Date Type Department Care Team ([facility] st Contact Info) Description 09/04/2024 10:00 AM EST Office Visit [facility] MED & PEDS [address] [place] [address] Rosalind Cardoso FNP [address] [place] [address] documented as of this encounter Visit Diagnoses Diagnosis Type 2 diabetes mellitus with stage 3 chronic kidney disease, with long-term current use of insulin, unspecified whether stage 3a or 3b CKD (CMS/HCC) Primary hypertension Unspecified essential hypertension Stage 3b chronic kidney disease (CMS/HCC) 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 (CMS/HCC) Low back pain at multiple sites Type 2 diabetes mellitus with hyperglycemia, with long-term current use of insulin (CMS/HCC) Type 2 diabetes mellitus with foot ulcer, with long-term current use of insulin (CMS/HCC) Pure hypercholesterolemia, unspecified Pain Generalized pain Type 2 diabetes mellitus with hyperglycemia (CMS/HCC) Type 2 diabetes mellitus with other specified complication, unspecified whether terminal system operator insulin use (CMS/[facility]) Fibromyalgia Unspecified myalgia and myositis documented in this encounter Additional Health Concerns Assessment Noted Time PHQ-9 Depression Total Score: 0 12/26/19 23 1:09 PM EDT documented as of this encounter Care Teams Database Management System Specialist Relationship Specialty Start Date End Date Rosalind Cardoso FNP [address] [place] [phone] PCP - General Family Medicine 04/28/21 documented as of this encounter
--- OUTSIDE RECORDS SUMMARY | 2024-08-04 10:21 | XMS_ITS | Encounter Summary ---
Author Organization [employer] Address 75 [facility] 7t [place] [address] Care Team Providers Care Forming Yardage Control Operator Name Role Phone Rosalind Cardoso Primary Care Provider [phone] Encounter Details Date Type Department Care Team ([facility] st Contact Info) Description 04/24/2024 Orders Only [facility] MED & PEDS [address] [place], [place] [phone] Rosalind Cardoso FNP [address] [place] [address] Type 2 diabetes mellitus with stage 3 [...] [facility] [address] [place] [address] Rosalind Cardoso FNP [address] [place] [address] documented as of this encounter Visit Diagnoses [...] documented as of this encounter Care Teams Forming Yardage Control Operator Relationship Specialty Start Date End Date Rosalind Cardoso FNP [address] [place] [address] PCP - General Family Medicine 04/28/21 documented as of this encounter
--- OUTSIDE RECORDS SUMMARY | 2024-08-04 10:21 | XMS_ITS | Encounter Summary ---
Author Organization [employer] Address [address] [facility] 7t [place] [address] Care Team Providers Care Lightning Rod Erector Name Role Phone Rosalind Cardoso Primary Care Provider [phone] Encounter Details Date Type Department Care Team ([facility] st Contact Info) Description 06/05/2024 Orders Only [facility] MED & PEDS [address] [place], [place] [phone] Rosalind Cardoso FNP [address] [place] [address] Type 2 diabetes mellitus with stage 3 [...] 10:00 AM EST Office Visit [facility] MED & PEDS [address] [place] [address] Rosalind Cardoso, TAMY [address] [place] [address] documented as of this encounter Procedures Procedure Name Priority Date/Time Associated Diagnosis Comments SED RATE BY MODIFIED WESTERGREN Routine 06/08/2024 9:25 AM EST Type 2 diabetes mellitus with stage 3 chronic kidney disease, with long-term current use of insulin, unspecified whether stage 3a or 3b CKD (CMS/HCC) Primary hypertension Stage 3b chronic kidney disease (CMS/HCC) 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 (CMS/HCC) PROTHROMBIN TIME-INR Routine 06/08/2024 9:25 AM EST [...] (CMS/HCC) documented in this encounter Results * Prothrombin Time-INR (06/08/2024 9:25 AM EST) Prothrombin Time 11.7 10.9 - 12.4 SEC [facility] INTERNATIONAL NORM RATIO 1.0 0.9 - 1.1 [facility] Comment:INTERNATIONAL NORMAL IZED RATIO (INR) [...] 3.5 Blood Venous blood specimen / Unknown 06/08/2024 9:25 AM EST 06/08/2024 9:25 AM EST us Rosalind Cardoso [employer] LAB BLOOD ORDERABLES Final Res ult [facility] [address] [place] [phone] * (ABNORMAL) C-reactive Protein (06/08/2024 9:25 AM EST) C Reactive Protein 1.04(H) < or = 0.50 mg/dL [facility] Blood Venous blood specimen / Unknown 06/08/2024 9:25 AM EST 06/08/2024 9:25 AM EST Rosalind Cardoso [employer] [facility] BLOOD ORDERABLES Final Res ult Performing Organization Address [facility]/ZIP Co de Phone Number [facility] [address] [place] [address] [phone] * (ABNORMAL) Sed Rate by Modified Westergren (06/08/2024 9:25 AM EST) Erythrocyte Sedimentation Rate 54(H) 0 - 20 MM/HR [facility] Comment:Patients with polycy themia and many hemoglobin abnormalitiesmay have depressed sed rates whereas patients with anemiamay have elevated sed rates. Blood Venous blood specimen / Unknown 06/08/2024 9:25 AM EST 06/08/2024 9:25 AM EST us Rosalind Cardoso [employer] [facility] BLOOD ORDERABLES Final Res ult Performing Organization Address [facility] Co de Phone Number [facility] [address] [place] [address] [phone] * Magnesium (06/08/2024 9:25 AM EST) Magnesium 1.9 1.6 - 2.6 mg/dL [facility] Blood Venous blood specimen / Unknown 06/08/2024 9:25 AM EST 06/08/2024 9:25 AM EST Rosalind Cardoso [employer] [facility] BLOOD ORDERABLES Final Res ult Performing Organization Address City/[facility]/ZIP Co de Phone Number [facility] [address] [place] [address] [phone] documented in this encounter Visit Diagnoses Diagnosis Type 2 diabetes mellitus with stage 3 chronic kidney disease, with long-term current use of insulin, unspecified whether stage 3a or 3b CKD (CMS/HCC) Primary hypertension Unspecified essential hypertension Stage 3b chronic kidney disease ([facility]/HCC) 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 (CMS/HCC) documented in this encounter Additional Health Concerns Assessment Noted Time PHQ-9 Depression Total Score: 0 12/26/19 23 1:09 PM EDT documented as of this encounter Care Teams Lightning Rod Erector Relationship Specialty Start Date End Date Rosalind Cardoso FNP [address] [place] [phone] PCP - General Family Medicine 04/28/21 documented as of this encounter
--- OUTSIDE RECORDS SUMMARY | 2024-08-04 10:21 | XMS_ITS | Encounter Summary ---
Author Organization [employer] Address [address] [facility] 7t [place] [address] Care Team Providers Care Rfid Engineer Name Role Phone Rosalind Cardoso Primary Care Provider [phone] Encounter Details Date Type Department Care Team (Late st Contact Info) Description 04/03/2024 Orders Only [facility] [address] [place] [address] Rosalind Cardoso FNP [address] [place] [address] Type 2 diabetes mellitus with stage 3 [...] Upcoming Encounters Date Type Department Care Team ([facility] st Contact Info) Description 09/04/2024 10:00 AM EST Office Visit [facility] MED & PEDS [address] [place] [address] Rosalind Cardoso FNP [address] [place] [address] documented as of this encounter Visit Diagnoses [...] documented as of this encounter Care Teams Rfid Engineer Relationship Specialty Start Date End Date Rosalind Cardoso FNP [address] [place] [phone] PCP - General Family Medicine 04/28/21 documented as of this encounter
--- OUTSIDE RECORDS SUMMARY | 2024-08-04 10:21 | XMS_ITS | Encounter Summary ---
Author Organization [employer] Address [address] [place] [address] [address] [place] [address] Care Team Providers Care Air Route Controller Name Role Phone Rosalind Cardoso Primary Care Provider [phone] Reason for Referral * Consultation (Routine) - Pending Review Specialty Diagnoses / Procedures Referred By Anthony reyes Referred To Contact Acupuncture Diagnoses Type 2 diabetes mellitus with stage 3 chronic kidney disease, with long-term current use of insulin, unspecified whether stage 3a or 3b CKD (CMS/HCC) 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 ([facility]/HCC) Rosalind Cardoso FNP [address] [place], [place] Phone: tel: fax: Referral ID Status Reason Start Date Expiration Date Visits Requested Visits Authorized [id number] Pending Review Specialty Services Required 08/03/2024 08/03/2025 1 1 * Consultation (Routine) - Pending Review Specialty Diagnoses / Procedures Referred By Anthony reyes Referred To Contact Podiatry Diagnoses Type 2 diabetes mellitus with foot ulcer, with long-term current use of insulin ([facility]/HCC) Peripheral vascular disease ([facility]/HCC) Rosalind Cardoso FNP [address] [place] [address] Phone: tel: fax: Raheel Qujiano DPM [address] [place] [address] Phone: tel: fax: Referral ID Status Reason Start Date Expiration Date Visits Requested Visits Authorized [id number] Pending Review Specialty Services Required 08/03/2024 08/03/2025 1 1 * Consultation (Routine) - Pending Review Specialty Diagnoses / Procedures Referred By Anthony reyes Referred To Contact Vascular Surgery Diagnoses 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 (CMS/HCC) Peripheral vascular disease (CMS/HCC) Rosalind Cardoso FNP [address] [place] [address] Phone: tel: fax: Orlaia Borden [address] [place] [address] Phone: tel: fax: Referral ID Status Reason Start Date Expiration Date Visits Requested Visits Authorized [id number] Pending Review Specialty Services Required 08/03/2024 08/03/2025 1 1 * Consultation (Routine) - Pending Review Specialty Diagnoses / Procedures Referred By Anthony reyes Referred To Contact Ophthalmology Diagnoses Type 2 diabetes mellitus with stage 3 chronic kidney disease, with long-term current use of insulin, unspecified whether stage 3a or 3b CKD ([facility]/HCC) Primary hypertension Rosalind Cardoso FNP [address] [place] [address] Phone: tel: fax: Referral ID Status Reason Start Date Expiration Date Visits Requested Visits Authorized [id number] Pending Review Specialty Services Required 08/03/2024 08/03/2025 1 1 * Consultation (Routine) - Pending Review Specialty Diagnoses / Procedures Referred By Anthony reyes Referred To Contact Occupational Therapy Diagnoses 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 (CMS/HCC) Rosalind Cardoso FNP [address] [place] [address] Phone: tel: fax: Referral ID Status Reason Start Date Expiration Date Visits Requested Visits Authorized [id number] Pending Review Specialty Services Required 08/03/2024 08/03/2025 1 1 * Consultation (Routine) - Pending Review Specialty Diagnoses / Procedures Referred By Contac t Referred To Contact Physical Therapy Diagnoses 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 ([facility]) Rosalind Cardoso FNP [address] [place] [address] Phone: tel: fax: Referral ID Status Reason Start Date Expiration Date Visits Requested Visits Authorized [id number] Pending Review Specialty Services Required 08/03/2024 08/03/2025 1 1 * Consultation (Routine) - Authorized Specialty Diagnoses / Procedures Referred By Contac t Referred To Contact Pharmacy Diagnoses Type 2 diabetes mellitus with stage 3 chronic kidney disease, with long-term current use of insulin, unspecified whether stage 3a or 3b CKD ([facility]) Rosalind Cardoso FNP [address] [place] [address] Phone: tel: fax: Referral ID Status Reason Start Date Expiration Date Visits Requested Visits Authorized [id number] Authorized Consult and Treat 08/03/2024 08/03/2025 6 6 Scheduling Instructions [facility] please, thanks! * Consultation (Routine) - Pending Review Specialty Diagnoses / Procedures Referred By Contac t Referred To Contact Cardiology Diagnoses Primary hypertension Supraventricular tachycardia ([facility]) Rosalind Cardoso FNP [address] [place] [address] Phone: tel: fax: Referral ID Status Reason Start Date Expiration Date Visits Requested Visits Authorized [id number] Pending Review Specialty Services Required 08/03/2024 08/03/2025 1 1 * Consultation (Routine) - Pending Review Specialty Diagnoses / Procedures Referred By Anthony reyes Referred To Contact Nephrology Diagnoses Stage 3b chronic kidney disease (CMS/HCC) Rosalind Cardoso FNP [address] [place] [address] Phone: tel: fax: Barron Wetzel MD [address] [address] Phone: tel: fax: Referral ID Status Reason Start Date Expiration Date Visits Requested Visits Authorized [id number] Pending Review Specialty Services Required 08/03/2024 08/03/2025 1 1 Encounter Details Date Type Department Care Team (Late st Contact Info) Description 08/03/2024 9:00 AM EST Office Visit [facility] MED & PEDS [address] [place] [address] Rosalind Cardoso FNP [address] [place] [address] Type 2 diabetes mellitus with stage 3 [...] and fibula (CMS/HCC); Peripheral vascular disease (CMS/HCC) Social History Tobacco Use Types Packs/Day [...] AM EDT documented as of this encounter Last Filed Vital Signs Vital Sign Reading [...] Mass Index 37.3 08/03/2024 9:05 AM EST documented in this encounter Patient Instructions * Patient Instructions* TAMY Ram - 08/03/2024 9:00 AM EST Items Discussed today: Referral to Cardiology Referral to Acupuncture [facility] to [facility] Order for Bariatric Transport Chair Referral to physical therapy and OT at [facility] Referral to Vascular Referral to Podiatry Referral to Pharmacy Team documented in this encounter Progress Notes * TAMY Ram - 08/03/2024 9:00 AM EST Subjective: Mitra Parish is a 59 y.o. female with a history of HTN, T2DM with current insulin therapy, beta thalassemia trait, hypochromic microcytic anemia, hypercholesterolemia, OA of bilateral knees, urinary incontinence, CKD, fibromyalgia, and left BKA Aug 2022 who presents for a follow up visit. Interim History: Last PCP visit: 12/09/23 She has been in [place] for the past 6 months caring for one of her daughters. In need of returning to care with majority of her specialists. Unclear which medications she is currently taking. 01/21/24: [facility] Cards - SOFTWARE SYSTEMS ENGINEER Srinath. Lasix dose increased, now 80mg daily. Now able to fit prosthetic on her left leg stump. Plan: cont isosorbide, amlodipine, and metoprolol XL. Cont aspirin 81mg daily, atorvastatin 80mg daily, zetia 10mg daily. Cont furosemide 80mg daily. F/up in 3 months. 06/23/24: [facility] Heme/Onc - Dr. Mattson. Plan: continue procrit therapy every other week for stage IV ACD. Current concerns: - In need of re-establishing with all specialists since returning from [place]. Daughter is now back at home after recovering from coma. - In need of new bariatric transport chair. Rx requested 08/03/24. Left BKA, not wearing prosthetic due to pain/discomfort at site. Specialists/Outside providers: [facility] Wound Care: previously in care for 2 open ulcers on bottom of bilat feet. Currently inactive, but able to return with any concern of infection or open wound. [facility] Heme/Onc: followed by Dr. Mattson for microcytic hypochromic anemia, and history of thrombocytosis and leukocytosis. Dextran iron infusion on 09/28/21. Procrit injections Q2-4weeks PRN. Labs Q2 weeks through PCP. [facility] Nephrology; Followed by Dr. Wetzel for CKD Stage 3a. Vascular - Previously following with [facility] Vascular - Dr. Vigil for peripheral vascular disease. Referred to Dr. Borden vascular 10/17/22, established with their team. Following with [facility] in [facility] Endo - previously following for T2DM. [facility] GI - following with ZARIA Palumbo for IBS and dysphagia. Planning barium swallow after vascular workup/recovery [facility] Cardiology - following for SVT and chest discomfort [facility] Podiatry - Dr. Quijano [facility] Urogyn - incont/prolapse Social History Social History Narrative -Currently lives at home with two of her adults children (both have autism). Has good support system of family and friends that check on her. 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 ( 15 times) -Not currently sexually active or in a relationship. -Denies use of substances including alcohol, tobacco, marijuana, opioids, or cocaine Review of Systems Constitutional: Negative for chills and fever. HENT: Negative for congestion and sore throat. Cardiovascular: Negative for chest pain and palpitations. Gastrointestinal: Negative for diarrhea and vomiting. Skin: Negative for wound. Visit Vitals BP 134/70 (BP Location: Left arm, Patient Position: Sitting, BP Cuff Size: Adult) Pulse 78 Temp 97.2 ??F (36.2 ??C) (Oral) Resp 20 Ht 5' (1.524 m) Wt 191 lb (86.6 kg) SpO2 97% BMI 37.30 kg/m?? Smoking Status Never BSA 1.91 m?? Physical Exam Constitutional: Appearance: Normal appearance. Comments: Presented in Wheelchair HENT: Head: Atraumatic. Cardiovascular: Rate and Rhythm: Normal rate and regular rhythm. Pulmonary: Effort: Pulmonary effort is normal. Breath sounds: Normal breath sounds. Neurological: Mental Status: She is alert and oriented to person, place, and time. Psychiatric: Mood and Affect: Mood normal. Behavior: Behavior normal. Problem List Items Addressed This Visit Circulatory Primary hypertension Overview Following with [facility] Cards - Dr. Middleton/CHANDU Yo. September 2023: [...] - last dose 80mg sent January 2024) Relevant Orders Referral to Cardiology Referral to Ophthalmology Peripheral vascular disease ([facility]) Overview -s/p Angioplasty, by Dr. Vigil in 10/2021 -Plavix DC Apr 2022, continues on lifelong aspirin -Currently followed by Dr. Borden -09/25/23: US duplex venous right ordered by Dr. Borden - no evidence of a deep venous thrombosis involving the right lower extremity. Lincoln cyst. Relevant Orders Referral to Vascular Surgery Referral to Podiatry Supraventricular tachycardia ([facility]) Overview -Noted incidentally during hospital admission 05/12-05/17/22 -Cont Metoprolol succ 100mg daily -Following with [facility] Cards Relevant Orders Referral to Cardiology Genitourinary Stage 3b chronic kidney disease ([facility]) Overview Followed by Nephrology - Dr. Wetzel/LESLYE Williamson 11/20/23: US renal doppler ordered LESLYE Williamson. Impression: 1. No evidence to suggest renal artery stenosis. 2. Mildly echogenic kidneys with normal volume consistent with diagnosis of medical renal disease. Relevant Orders Referral to Nephrology Endocrine/Metabolic Type 2 diabetes mellitus with diabetic chronic kidney disease ([facility]) - Primary Overview Lab Results Component Value Date HGBA1C 14.8 (A) 08/03/2024 HGBA1C 10.5 (A) 10/02/2023 HGBA1C 8.6 (A) 04/12/2023 HGBA1C 8.2 (H) 09/26/2022 HGBA1C 11.3 (H) 08/22/2021 -Followed by [facility] Endo -Cont current medication regimen metformin 1000mg BID Lantus 40 units at bedtime Actos 15mg daily -Movement/exercise as tolerated Pt declines any med adjustments at this time, although future considerations include: -Consider DC of Actos given cardiac conditions -Consider addition of GLP1 - Referred to [facility]TM clinic on 08/03/24 Avoid SGLT2 inhibitors given hx of BKA (patient preference) Relevant Medications Blood Glucose Monitoring Suppl kit Alcohol Swabs (SM Alcohol Prep) 70 % pads Other Relevant Orders POCT Glucose (Completed) POCT HGB A1C (Completed) Referral to Pharmacy CDTM Referral to Ophthalmology Referral for Acupuncture Other Routine health maintenance Overview -Optometry: NABOR November 2021 -Dental: [facility] dental clinic -Pap: reports last 2019 and believes results were normal, referred to UroGYN -Mammo: 11/29/23 BIRADS 1 -Colorectal CA screening: iFOBT neg 12/18/21, due 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 (CMS/HCC) Overview -Left BKA performed by Dr. 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 Relevant Orders Referral to Physical Therapy Referral to Occupational Therapy Referral to Vascular Surgery Referral for Acupuncture Other Visit Diagnoses Type 2 diabetes mellitus with foot ulcer, with long-term current use of insulin (CMS/HCC) Relevant Medications Blood Glucose Monitoring Suppl kit Alcohol Swabs (SM Alcohol Prep) 70 % pads Other Relevant Orders Referral to Podiatry Follow up: 1 month (extended), Sooner as needed documented in this encounter Plan of Treatment Upcoming Encounters Date Type Department Care Team (Late st Contact Info) Description 09/04/2024 10:00 AM EST Office Visit [facility] MED & PEDS [address] [place] [address] Rosalind Cardoso FNP [address] [place] [address] Scheduled Referrals Name Type Priority Associated Diagnoses Orde r Schedule Referral to Nephrology Outpatient Referral Routine Stage 3b chronic kidney disease (CMS/HCC) Expected: 08/03/2024 (Approximate), Expires: 08/03/2025 Referral to Cardiology Outpatient Referral Routine Primary hypertension Supraventricular tachycardia (CMS/HCC) Expected: 08/03/2024 (Approximate), Expires: 08/03/2025 Referral to Pharmacy CDTM Outpatient Referral Routine Type 2 diabetes mellitus with stage 3 chronic kidney disease, with long-term current use of insulin, unspecified whether stage 3a or 3b CKD (CMS/HCC) Ordered: 08/03/2024 Referral to Physical Therapy Outpatient Referral Routine 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 (CMS/HCC) Expected: 08/03/2024 (Approximate), Expires: 08/03/2025 Referral to Occupational Therapy Outpatient Referral Routine 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 ([facility]/HCC) Expected: 08/03/2024 (Approximate), Expires: 08/03/2025 Referral to Ophthalmology Outpatient Referral Routine Type 2 diabetes mellitus with stage 3 chronic kidney disease, with long-term current use of insulin, unspecified whether stage 3a or 3b CKD ([facility]/HCC) Primary hypertension Expected: 08/03/2024 (Approximate), Expires: 08/03/2025 Referral to Vascular Surgery Outpatient Referral Routine 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 ([facility]) Peripheral vascular disease ([facility]/HCC) Expected: 08/03/2024 (Approximate), Expires: 08/03/2025 Referral to Podiatry Outpatient Referral Routine Type 2 diabetes mellitus with foot ulcer, with long-term current use of insulin ([facility]) Peripheral vascular disease ([facility]) Expected: 08/03/2024 (Approximate), Expires: 08/03/2025 Referral for Acupuncture Outpatient Referral Routine Type 2 diabetes mellitus with stage 3 chronic kidney disease, with long-term current use of insulin, unspecified whether stage 3a or 3b CKD ([facility]/HCC) 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 ([facility]) Expected: 08/03/2024 (Approximate), Expires: 08/03/2025 documented as of this encounter Procedures Procedure Name Priority Date/Time Associated Diagnosis Comments POCT GLYCATED HEMOGLOBIN, TOTAL Routine 08/03/2024 10:14 AM EST Type 2 diabetes mellitus with stage 3 chronic kidney disease, with long-term current use of insulin, unspecified whether stage 3a or 3b CKD (CMS/HCC) POCT GLUCOSE Routine 08/03/2024 10:13 AM EST Type 2 diabetes mellitus with stage 3 chronic kidney disease, with long-term current use of insulin, unspecified whether stage 3a or 3b CKD (CMS/HCC) documented in this encounter Results * (ABNORMAL) POCT HGB A1C (08/03/2024 10:14 AM EST) [facility] Hemoglobin A1C 14.8(A) 4.0 - 6.0 % QC Media Lot # [id number] Lot# Expiration Date [id number] Blood 08/03/2024 10:1 4 AM EST us Rosalind MORELOS POINT OF CARE TEST ENTER/EDIT ORDERABLES Final Result * (ABNORMAL) POCT Glucose (08/03/2024 10:13 AM EST) [facility] Glucose Blood, POC 247(A) 60 - 200 mg/dL Comment:fasting QC Media Lot # [id number] Lot# Expiration Date 4,825 Blood Capillary blood specimen / Unknown 08/03/2024 10:13 AM EST us Rosalind STARKSP POINT OF CARE TEST ENTER/EDIT ORDERABLES Final Result documented in this encounter Visit Diagnoses Diagnosis Type 2 diabetes mellitus with stage 3 chronic kidney disease, with long-term current use of insulin, unspecified whether stage 3a or 3b CKD (CMS/HCC)- Primary Routine health maintenance Unspecified examination Type 2 diabetes mellitus with foot ulcer, with long-term current use of insulin (CMS/HCC) Primary hypertension Unspecified essential hypertension Stage 3b chronic kidney disease (CMS/HCC) Supraventricular tachycardia (CMS/HCC) Other specified cardiac dysrhythmias 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 (CMS/HCC) Peripheral vascular disease (CMS/HCC) Unspecified peripheral vascular disease documented in this encounter Additional Health Concerns Assessment Noted Time PHQ-9 Depression Total Score: 6 08/03/19 25 9:07 AM EST documented as of this encounter Care Teams Air Route Controller Relationship Specialty Start Date End Date Rosalind Cardoso FNP [address] [place] [phone] PCP - General Family Medicine 04/28/21 documented as of this encounter
--- OUTSIDE RECORDS SUMMARY | 2024-08-04 10:21 | XMS_ITS | Encounter Summary ---
Author Organization [employer] Address [address] [facility] 7t [place] [address] Care Team Providers Care Crew Truck Driver Name Role Phone Rosalind Cardoso Primary Care Provider [phone] Encounter Details Date Type Department Care Team ([facility] st Contact Info) Description 07/31/[address] [facility] MED & PEDS [address] [place], [place] [phone] Rosalind Cardoso FNP 505 [place] [address] Type 2 diabetes mellitus with stage 3 [...] Visit [facility] MED & PEDS [address] [place] [address] Rosalind Cardoso FNP 505 [place] [address] documented as of this encounter Visit Diagnoses [...] documented as of this encounter Care Teams Crew Truck Driver Relationship Specialty Start Date End Date Rosalind Cardoso FNP [address] [place] [address] PCP - General Family Medicine 04/28/21 documented as of this encounter
--- OUTSIDE RECORDS SUMMARY | 2024-08-04 10:21 | XMS_ITS | Encounter Summary ---
Author Organization [employer] Address [address] [facility] 7t [place] [address] Care Team Providers Care Extractor Loader And Unloader Name Role Phone Rosalind Cardoso Primary Care Provider [phone] Encounter Details Date Type Department Care Team (Late st Contact Info) Description 04/17/2024 Orders Only [facility] MEDICINE [address] [place] [address] Rosalind Cardoso FNP [address] [place] [address] Type 2 diabetes mellitus with stage 3 [...] Upcoming Encounters Date Type Department Care Team ([facility] st Contact Info) Description 09/04/2024 10:00 AM EST Office Visit [facility] MED & PEDS 505 [place] [address] Rosalind Cardoso FNP 505 [place] [address] documented as of this encounter Visit Diagnoses [...] documented as of this encounter Care Teams Extractor Loader And Unloader Relationship Specialty Start Date End Date Rosalind Cardoso FNP [address] [place] [address] PCP - General Family Medicine 04/28/21 documented as of this encounter
--- OUTSIDE RECORDS SUMMARY | 2024-08-04 10:22 | XMS_ITS | Encounter Summary ---
Author Organization [employer] Address [address] [facility] 7t [place] [address] Care Team Providers Care Rv Servicer Name Role Phone Rosalind Cardoso TAMY Primary Care Provider [phone] Encounter Details Date Type Department Care Team ([facility] st Contact Info) Description 05/23/2023 Abstract [facility] MEDICINE [address] [place], [place] [phone] Adela Pena Social History Tobacco Use Types Packs/Day Years [...] Description 09/04/2024 10:00 AM EST Office Visit [facility] MED & PEDS [address] [place] [address] Rosalind Cardoso FNP [address] [place] [address] documented as of this encounter Visit Diagnoses Not on filedocumented in this encounter Additional Health Concerns Assessment Noted Time PHQ-9 Depression Total Score: 0 12/26/19 23 1:09 PM EDT documented as of this encounter Care Teams Rv Servicer Relationship Specialty Start Date End Date Rosalind Cardoso FNP [address] [place] [address] PCP - General Family Medicine 04/28/21 documented as of this encounter
--- OUTSIDE RECORDS SUMMARY | 2024-08-04 10:22 | XMS_ITS | Encounter Summary ---
Author Organization [employer] Address [address] [place] [address] 7 [place] [address] Care Team Providers Care Cleaner Window Name Role Phone Rosalind Cardoso Primary Care Provider [phone] Reason for Visit * Reason Comments Med Refill Encounter Details Date Type Department Care Team (Late st Contact Info) Description 07/10/2022 Refill [facility] CHC MED & PEDS [address] [place], [place] [phone] Rosalind Cardoso FNP [address] [place], [place] [phone] Primary hypertension; Type 2 diabetes mellitus with other specified complication, unspecified whether half-way insulin use ([facility]) Social History Tobacco Use Types Packs/Day Years Used Date Smoking Tobacco: Never Assessed Comments Unknown Sex and Gender Information Value Date Recorded Sex Assigned at Female 05/07/2022 10:30 AM EDT Legal Sex Female 10:30 AM EDT Gender Identity Female 05/07/2022 10:30 AM EDT Sexual Orientation Straight 05/07/2022 10 :30 AM EDT documented as of this encounter Miscellaneous Notes * Telephone Encounter - Danuta Wong - 07/10/2022 9:22 AM EST Tc from pt requesting a med refill for Amlodipine 5mg, Metoprolol succ 50mg and magnexium 400mg. PCP Janae documented in this encounter Plan of Treatment Upcoming Encounters Date Type Department Care Team (Late st Contact Info) Description 09/04/2024 10:00 AM EST Office Visit [facility] CHC MED & PEDS [address] [place] [address] Rosalind Cardoso FNP [address] [place] [address] documented as of this encounter Visit Diagnoses Diagnosis Primary hypertension Unspecified essential hypertension Type 2 diabetes mellitus with other specified complication, unspecified whether half-way insulin use ([facility]) documented in this encounter Care Teams Cleaner Window Relationship Specialty Start Date End Date Rosalind Cardoso FNP [address] [place] [address] PCP - General Family Medicine 04/28/21 documented as of this encounter
--- OUTSIDE RECORDS SUMMARY | 2024-08-04 10:22 | XMS_ITS | Encounter Summary ---
Author Organization [employer] Address [address] [facility] 7t [place] [address] Care Team Providers Care Sweeper Operator Highways Name Role Phone Rosalind Cardoso Primary Care Provider [phone] Encounter Details Date Type Department Care Team ([facility] st Contact Info) Description 06/25/2023 Telephone [facility] MEDICINE [address] [place] [address] Rosalind Cardoso FNP [address] [place] [address] Social History Tobacco Use Types Packs/Day Years [...] Description 09/04/2024 10:00 AM EST Office Visit [facility] MED & PEDS 505 [place] [address] Rosalind Cardoso FNP [address] [place] [address] documented as of this encounter Visit Diagnoses Not on filedocumented in this encounter Additional Health Concerns Assessment Noted Time PHQ-9 Depression Total Score: 0 12/26/19 23 1:09 PM EDT documented as of this encounter Care Teams Sweeper Operator Highways Relationship Specialty Start Date End Date Rosalind Cardoso FNP [address] [place] [address] PCP - General Family Medicine 04/28/21 documented as of this encounter
--- OUTSIDE RECORDS SUMMARY | 2024-08-04 10:22 | XMS_ITS | Encounter Summary ---
Author Organization [employer] Address [address] [place] [address] 7t [place] [address] Care Team Providers Care Appraiser Name Role Phone Rosalind Cardoso Primary Care Provider [phone] Reason for Visit * Reason Onset Date Comments Results 08/06/2023 Encounter Details Date Type Department Care Team ([facility] Contact Info) Description 08/06/2023 Telephone [facility] MED & PEDS [address] [place] [address] Rosalind Cardoso FNP [address] [place] [address] Results Social History Tobacco Use Types Packs/Day [...] encounter Miscellaneous Notes * Telephone Encounter - Tiffanie Marquez RN - 08/08/2023 9:45 AM EST Placed call to pt and informed of lab results. Pt verbalized understanding and agrees with plan. * Telephone Encounter - TAMY Ram - 08/06/2023 3:56 PM EST Sodium, potassium, magnesium are normal. The two inflammatory markers have both increased since last checked, indicating body is struggling with some degree of inflammatory processes. H/H 10.3/34.2. * Telephone Encounter - Tiffanie Marquez RN - 08/06/2023 12:54 PM EST Please review and advise on labs * Telephone Encounter - Hilaria Sandoval - 08/06/2023 11:56 AM EST TC from pt requesting call back regarding Results. Type of results: labs Date when done: 08/06 Facility: [facility] Please contact pt at [phone] documented in this encounter Plan of Treatment Upcoming Encounters Date Type Department Care Team (Late st Contact Info) Description 09/04/2024 10:00 AM EST Office Visit [facility] CHC MED & PEDS [address] [place] [address] Rosalind Cardoso FNP [address] [place] [address] documented as of this encounter Visit Diagnoses Not on filedocumented in this encounter Additional Health Concerns Assessment Noted Time PHQ-9 Depression Total Score: 0 12/26/19 23 1:09 PM EDT documented as of this encounter Care Teams Appraiser Relationship Specialty Start Date End Date Rosalind Cardoso FNP [address] [place] [address] PCP - General Family Medicine 04/28/21 documented as of this encounter
--- OUTSIDE RECORDS SUMMARY | 2024-08-04 10:22 | XMS_ITS | Patient Health Record ---
Author Organization [facility] Address [address] [facility] [place] [address] Care Team Providers Care Concrete Conveyor Operator Name Role Phone Lesvia Sosa Unavailable [phone] Reason For Referral No Information Medications Medication SIG (Take, Route, Frequency, Duration) Notes Start Date End Date Status Clopidogrel Bisulfate 75 MG Oral for 90 Active metFORMIN HCl 1000 MG Oral for 90 Active Aspirin Low Dose 81 MG Oral for 90 Active Lantus SoloStar 100 UNIT/ML Subcutaneous for 36 Active Lidocaine-Prilocaine 2.5-2.5 % External for 30 Not-Taking Vitamin D3 25 MCG (1000 UT) Oral for 90 Active Terbinafine HCl 250 MG Oral for 42 Not-Taking Pioglitazone HCl 15 MG Oral for 90 Active UltiCare Short Pen [place] 31G X 8 MM USE ONCE DAILY DIRECTED for 90 Not-Taking Atorvastatin Calcium 40 MG Oral for 30 Active Ezetimibe 10 MG Oral for 90 Ac tive Walking Boot/Pneumatic As directed Wear Daily for Until further notice 11/28/2021 Active Jardiance 25 MG Oral for 30 Ac tive Invokana 100 MG TAKE 1 TABLET BY RACQUEL TH DAILY BEFORE THE FIRST MEAL OF THE DAY Oral for 30 Not-Taking Omeprazole 20 MG Oral for 30 A ctive Lidocaine 5 % External for 15 Not-Taking Folic Acid 1 MG Oral for 90 Ac tive Cyclobenzaprine HCl 10 MG Oral for 5 Not-Taking Lisinopril-hydroCHLOROthia zide 20-25 MG Oral for 90 Active TRUEplus Lancets 33G - for 34 Not-Taking FreeStyle Lite Test - TEST BLOOD SUGAR T HREE TIMES DAILY In Vitro for 33 Not-Taking Doxycycline Hyclate 100 MG Oral for 30 Active Alcohol Prep 70 % TEST BLOOD SUGAR THR EE TIMES DAILY for 33 Not-Taking Social History Tobacco Use: Social History Observation Description Date Details (start date - stop date) Never Smoker NA - NA Tobacco Use/Smoking Question Answer Notes Are you a: nonsmoker Alcohol Screen Question Answer Notes Did you have a drink containing alcohol in the p ast year? No Points 0 Interpretation Negative Tobacco use other than smoking: Question Answer Notes Are you an other tobacco user? No Problems Problem Type SNOMED Code ICD Code Onset Dates Problem Status W/U Status Risk Notes Problem 697590922 Charcot's joint, left ankle and foot (M14.672) Active confirmed Problem 161056494 Hammer toe of ri ght foot (M20.41) Active confirmed Problem 924673636 Hammer toe of le ft foot (M20.42) Active confirmed Problem 188247841 Neuropathy (G62.9) Active confirmed Problem 21924583 Type 2 diabetes mellitus with polyneuropathy (E11.42) Active confirmed Plan Of Treatment Pending Test Test Name Order Date X ray : Foot, left 3V 11/28/2021 X ray : Foot, right 3V 11/28/2021 Insurance Providers Payer Name Payer Address Payer Phone Subscriber Number Group Number Insured Name Patient Relationship to Insured Coverage Start Date Coverage End Date [facility] [employer] Claims [address] [place] [id number] [place] Self - patient is the insured Medical (General) History Medical History History ICD Code Anemia Arthritis Back,Hip,and Knee pain Cholesterol Cataracts Diabetic Headaches/Migraines Heart disease High blood pressure Kidney disease Neuropathy Psoriasis/eczema Measles Chicken pox Surgical History Surgery Date(Month/Year) Angeogram D+C 1987 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
--- OUTSIDE RECORDS SUMMARY | 2024-08-04 10:22 | XMS_ITS | Encounter Summary ---
Author Organization [employer] Address [address] [place] [address] 7 [place] [address] Care Team Providers Care Mold Operator Name Role Phone Rosalind Cardoso Primary Care Provider [phone] Reason for Visit * Reason Onset Date Comments Referral 08/03/2024 Encounter Details Date Type Department Care Team ([facility] st Contact Info) Description 08/03/2024 Telephone [facility] MED & PEDS [address] [place] [address] Rosalind Cardoso FNP [address] [place] [address] Referral Social History Tobacco Use Types Packs/Day Years [...] encounter Miscellaneous Notes * Telephone Encounter - TAMY Ram - 08/03/2024 2:24 PM EST Referral placed, information on specific location sent to referrals team. * Telephone Encounter - Ewelina Roper - 08/03/2024 2:01 PM EST Tc from pt calling in to provide referral information for acupuncture as requested by pcp on today visit. Location: [facility] Address: [address] [place] [address] Phone # : documented in this encounter Plan of Treatment Upcoming Encounters Date Type Department Care Team ([facility] st Contact Info) Description 09/04/2024 10:00 AM EST Office Visit [facility] CHC MED & PEDS [address] [place] [address] Rosalind Cardoso FNP [address] [place] [address] documented as of this encounter Visit Diagnoses Not on filedocumented in this encounter Additional Health Concerns Assessment Noted Time PHQ-9 Depression Total Score: 6 08/03/19 25 9:07 AM EST documented as of this encounter Care Teams Mold Operator Relationship Specialty Start Date End Date Rosalind Cardoso FNP [address] [place] [address] PCP - General Family Medicine 04/28/21 documented as of this encounter
--- OUTSIDE RECORDS SUMMARY | 2024-08-04 10:22 | XMS_ITS | Encounter Summary ---
Author Organization [employer] Address [address] [place] [address] 7t [place] [address] Care Team Providers Care Primary Grade Teacher Name Role Phone Rosalind Cardoso Primary Care Provider [phone] Reason for Visit * Reason Onset Date Comments Critical Result 07/07/2024 Encounter Details Date Type Department Care Team ([facility] Contact Info) Description 07/07/2024 Telephone [facility] MED & PEDS [address] [place] [address] Rosalind Cardoso FNP [address] [place] [address] Critical Result Social History Tobacco Use Types Packs/Day Years [...] encounter Miscellaneous Notes * Telephone Encounter - Yas Esparza RN - 07/07/2024 11:00 AM EST Incoming call to the Critical Result line 07/07/24 at 11:00 AM Name of Caller/Facility:[facility] Callback number: [phone] Reason for Call: Glucose of 400mg/dL today at 1024 Message to be forwarded to TAMY Ram and team nurses for follow up. Pt was fasting prior to blood work. Pt has not taken any Dm meds yet as just driving back home. Denies any sx of hyperglycemia. Pt advised to take all meds and recheck BS 1 hour after. If still over 300mg/dL to return call to office. Reviewed NTTS as office closes for 1pm for new years matthew holiday.Will forward to team and PCP to review and follow up PRN. documented in this encounter Plan of Treatment Upcoming Encounters Date Type Department Care Team (Late st Contact Info) Description 09/04/2024 10:00 AM EST Office Visit [facility] MED & PEDS [address] [place], [place] [phone] Rosalind Cardoso FNP [address] [place], [place] [phone] documented as of this encounter Visit Diagnoses Not on filedocumented in this encounter Additional Health Concerns Assessment Noted Time PHQ-9 Depression Total Score: 0 12/26/19 23 1:09 PM EDT documented as of this encounter Care Teams Primary Grade Teacher Relationship Specialty Start Date End Date Rosalind Cardoso FNP [address] [place] [address] PCP - General Family Medicine 04/28/21 documented as of this encounter
--- OUTSIDE RECORDS SUMMARY | 2024-08-04 10:22 | XMS_ITS | Clinical Summary ---
Author Organization [address] [place] [address] Address [address] [place] [address] Phone Care Team Providers Care Audit Clerks Supervisor Name Role Phone Physician, Pcp Unknown Primary Care Provider Felecia vailable Allergies No known active allergies Medications Medication Sig Dispensed Refills Start Date End Date Status furosemide (LASIX) 40 mg tablet Take 2 tablets (80 mg total) by mouth 1 (one) time each day. Active lisinopriL (PRINIVIL,ZESTRIL) 20 mg tablet Take 0.5 Tablets by mouth daily. Active amitriptyline (ELAVIL) 25 mg tablet Take 1 Tablet by mouth at bedtime. Active aspirin 81 mg EC tablet Take 1 tablet (81 mg total) by mouth 1 (one) time each day. Active atorvastatin (LIPITOR) 40 mg tablet Take 1 tablet (40 mg total) by mouth 1 (one) time each day. Active chlorthalidone (HYGROTON) 25 mg tablet Take 1 tablet (25 mg total) by mouth 1 (one) time each day. Active ezetimibe (ZETIA) 10 mg tablet Take 1 tablet (10 mg total) by mouth 1 (one) time each day. Active magnesium oxide (MAG-OX) 400 mg magnesium tablet Take by mouth. Acti ve metFORMIN (GLUCOPHAGE) 1,000 mg tablet Take 1 Tablet by mouth 2 times daily (with meals). Active metoprolol succinate (TOPROL-XL) 100 mg 24 hr tablet Take 1 tablet (100 mg total) by mouth 1 (one) time each day. Active pantoprazole (PROTONIX) 40 mg EC tablet Take 1 tablet (40 mg total) by mouth 1 (one) time each day. Active cholecalciferol (VITAMIN D-3) 25 mcg (1,000 unit) tablet Take by mouth. A ctive acetaminophen (TYLENOL) 325 mg tablet Take 2 tablets (650 mg total) by mouth every 6 (six) hours if needed. Active amLODIPine (NORVASC) 5 mg tablet Take 1 tablet (5 mg total) by mouth 1 (one) time each day. Active folic acid (FOLVITE) 1 mg tablet Take 1 tablet (1,000 mcg total) by mouth 1 (one) time each day. Active dextrose 15 gram/32 mL gel in packet Take by mouth. Active insulin glargine (LANTUS) 100 unit/mL injection Inject into the skin at bedtime. Active Active Problems Problem Noted Date Diagnosed Date DM2 (diabetes mellitus, type 2) 10/22/2022 Hx of BKA, left 10/22/2022 Hyperlipidemia 10/22/2022 Hypertension 10/22/2022 PAD (peripheral artery disease) 10/22/2022 Vitamin D deficiency 10/22/2022 Encounters Date Type Department Care Team Description 06/08/2024 Telephone [facility] [address] [place] [address] Placido Galvez MD provider call back from Last 3 Months Surgical History Surgery Date Site/Laterality Comments OTHER SURGICAL HISTORY 09/01/2022 Left PROCEDURE: MS AMPUTATION LEG THROUGH TIBIA&FIBULA Social History Tobacco Use Types Packs/Day Years Used Date Smoking Tobacco: Never Smokeless Tobacco: Never Sex and Gender Information Value Date Recorded Sex Assigned at Not on file Gender Identity Not on file Sexual Orientation Not on file Job Start Date Occupation Industry Not on file Not on file Not on file Obstetrics History Last Filed Vital Signs Vital Sign Reading Time Taken Comments Blood Pressure 118/72 12/26/2023 9:08 AM EDT Sit ting R Arm Pulse 77 12/26/2023 9:08 AM EDT Temperature - - Respiratory Rate - - Oxygen Saturation - - Inhaled Oxygen Concentration - - Weight 98.9 kg (218 lb) 01/23/2024 3:32 PM EDT Height 152.4 cm (5') 01/23/2024 3:32 PM EDT Body Mass Index 42.58 01/23/2024 3:32 PM EDT Plan of Treatment Upcoming Encounters Date Type Department Care Team (Late st Contact Info) Description 08/10/2024 2:15 PM EST Office Visit Orthopedic Surgery - [facility] [address] [place] [address] Raheel Quijano, DPM [address] [facility] [address] [place] [address] 08/20/2024 4:00 PM EST Office Visit Vascular Surgery - [facility] [address] [facility] [address] [place] [address] Nu Holt PA [address] [facility] [address] [place] [address] Health Maintenance Due Date Last Done Comments Breast Cancer Screening 1963 Diabetes: Annual GFR (Glomer ular Filtration Rate) 1963 Pneumococcal Vaccine: Pediat rics (0 to 5 Years) and At-Risk Patients (6 to 64 Years) (1 of 2 - PCV) 1969 Diabetes: Annual Foot Exam 1973 Diabetes: Annual Retina Eye Exam 1973 DTaP,Tdap,and Td Vaccines (1 - Tdap) 1982 Cervical Cancer Screening: P ap Smear 1984 Zoster Vaccines (1 of 2) 2013 RSV Immunization Patients 60 + Years Old (1 - Risk 60-74 years 1-dose series) 2023 Cholesterol Screening (Lipid Panel) 08/02/2023 Colorectal Cancer Screening: Colonoscopy 08/02/2023 Depression Screening 08/02/2023 HIV Screening 08/02/2023 Hepatitis C Screening 08/02/2023 Medicare Annual Wellness Visit 08/02/2023 Social Influencers of Health Screening 08/02/2023 Diabetes: Annual Urine Albumin-Creatinine Ratio (uACR) 08/21/2023 Diabetes: Blood Sugar Contro l Test (HGBA1C) 08/21/2023 Hypertension/CHF/CAD Annual BMP Blood Test 08/21/2023 COVID-19 Vaccine ( - 2023-2 5 season) 2024 Influenza Vaccine (#1) 2024 HIB Vaccines Aged Out No longer eligi [...] on patient's age to complete this topic MMR Vaccines Aged Out No longer eligi ble based on patient's age to complete this topic Meningococcal ACWY Vaccine Aged Out N o longer eligible based on patient's age to complete this topic RSV Immunization Patients Un andi 20 months Aged Out No longer eligible b ased on patient's age to complete this topic Varicella Vaccines Aged Out No longer eligible based on patient's age to complete this topic Advance Directives Documents on File Type Date Recorded Patient Cross Tie Tram Loader Expl anation Health Care Decision (hx) 09/04/2022 AD REINOSO DIRECTIVE Health Care Decision (hx) 09/04/2022 AD REINOSO DIRECTIVE Care Teams Audit Clerks Supervisor Relationship Specialty Start Date End Date Physician, Pcp Unknown PCP - General 07/27/24
--- OUTSIDE RECORDS SUMMARY | 2024-08-04 10:22 | XMS_ITS | Encounter Summary ---
Author Organization [employer] Address [address] [facility] 7t [place] [address] Care Team Providers Care Shipping Checker Name Role Phone Rosalind Cardoso Primary Care Provider [phone] Reason for Visit * Reason Onset Date Comments Referral Renewal 07/18/2023 Encounter Details Date Type Department Care Team ([facility] st Contact Info) Description 07/18/[address] [facility] MEDICINE [address] [place] [address] Rosalind Cardsoo FNP [address] [place] [address] Referral Renewal Social History Tobacco Use Types Packs/Day Years [...] Telephone Encounter - Tiffanie Marquez RN - 07/24/2023 2:29 PM EST Thank you * Telephone Encounter - TAMY Ram - 07/24/2023 2:27 PM EST Referral to [facility] [place] and physical therapy placed, thank you! * Telephone Encounter - Tiffanie Marquez RN - 07/19/2023 1:10 PM EST Returned call to pt regarding message below. Pt states she is requesting the same services she was getting [place] [facility] [place] [facility] for PT and OT due to transportation. [facility] [place] offer pt transportation. Pt states she was seeing Pt and OT for hx of BKA and R arm strengthening as pt uses R arm for everything now and R arm is now giving her problems. Pt informed message would be sent to PCP for review. * Telephone Encounter - TAMY Ram - 07/18/2023 3:36 PM EST Please call pt to clarify so that I may addend my last note for the referral: She was previously following with Physical therapy and OT at [facility] (2x/week) for hx of left BKA. Please confirm that she is interested in switching locations, as well as confirm that still for same diagnosis. Thank you! * Telephone Encounter - Mario Lobo - 07/18/2023 12:11 PM EST Tc from patient calling to get a referral renewal for PT and OT and would like to be sent to [facility] at [address] [place] [id number] documented in this encounter Plan of Treatment Upcoming Encounters Date Type Department Care Team ([facility] st Contact Info) Description 09/04/2024 10:00 AM EST Office Visit [facility] MED & PEDS [address] [place] [address] Rosalind Cardoso FNP [address] [place] [address] documented as of this encounter Visit Diagnoses Diagnosis 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 (CMS/HCC)- Primary documented in this encounter Additional Health Concerns Assessment Noted Time PHQ-9 Depression Total Score: 0 12/26/19 23 1:09 PM EDT documented as of this encounter Care Teams Shipping Checker Relationship Specialty Start Date End Date Rosalind Cardoso FNP [address] [place] [address] PCP - General Family Medicine 04/28/21 documented as of this encounter
--- OUTSIDE RECORDS SUMMARY | 2024-08-04 10:22 | XMS_ITS | Encounter Summary ---
Author Organization [employer] Address [address] [place] [address] [address] [address] Care Team Providers Care Fire Alarm Repairer Name Role Phone Rosalind Cardoso Primary Care Provider [phone] Encounter Details Date Type Department Care Team (Late st Contact Info) Description 06/22/2022 Telephone [facility] MEDICINE [address] [place] [address] Emily Matthews RN Social History Tobacco Use Types Packs/Day Years [...] Encounters Date Type Department Care Team (Late Contact Info) Description 09/04/2024 10:00 AM EST Office Visit [facility] CHC MED & PEDS [address] [place] [address] Rosalind Cardoso FNP [address] [place] [address] documented as of this encounter Visit Diagnoses Not on filedocumented in this encounter Care Teams Fire Alarm Repairer Relationship Specialty Start Date End Date Rosalind Cardoso FNP [address] [place] [address] PCP - General Family Medicine 04/28/21 documented as of this encounter
--- OUTSIDE RECORDS SUMMARY | 2024-08-04 10:22 | XMS_ITS | Encounter Summary ---
Author Organization [employer] Address [address] [place] [address] Care Team Providers Care It Risk And Assurance Manager Name Role Phone Rosalind Cardoso Primary Care Provider [phone] Reason for Referral * Consultation (Routine) - Closed Specialty Diagnoses / Procedures Referred By Anthony reyes Referred To Contact Occupational Therapy Diagnoses Pain in both hands Rosalind Cardoso FNP [address] [place] [address] Phone: tel: fax: [facility] Referral ID Status Reason Start Date Expiration Date V isits Requested Visits Authorized [id number] Closed Specialty Services Required 07/31/2023 07/30/2024 1 1 * Consultation (Routine) - Closed Specialty Diagnoses / Procedures Referred By Anthony reyes Referred To Contact Physical Therapy Diagnoses Back pain, unspecified back location, unspecified back pain laterality, unspecified chronicity Hip pain, unspecified laterality Rosalind Cardoso FNP [address] [place] [address] Phone: tel: fax: [facility] [address] [place] [address] Phone: tel: fax: Referral ID Status Reason Start Date Expiration Date V isits Requested Visits Authorized [id number] Closed Specialty Services Required 07/31/2023 07/30/2024 1 1 Reason for Visit * Reason Onset Date Comments Request For Order(s) 07/30/2023 Encounter Details Date Type Department Care Team ([facility] st Contact Info) Description 07/30/2023 Telephone [facility] CHC MED & PEDS [address] [place] [address] Rosalind Cardoso FNP [address] [place] [address] Request For Order(s) Social History Tobacco Use Types Packs/Day Years Used Date Smoking Tobacco: Never Smokeless Tobacco: Never Alcohol Use Standard Drinks/Week Comments Never 0 (1 standard drink = 0.6 oz pur e alcohol) Depression Answer Date Recorded Patient Health Questionnaire-9 Score 0 12/25/2022 Housing Stability Answer Date Recorded What is your housing situation today? I have elbert lashay 04/25/[address] you li [...] t he electric, gas, oil or water [employer] threatened to shut off services in your [...] * Telephone Encounter - TAMY Ram - 07/31/2023 3:52 PM EST Updated referrals placed, thank you. Sending to referrals team. * Telephone Encounter - Hilaria Jaime - 07/30/2023 4:26 PM EST Tc from michelle with [facility] requesting updated PT orders due to pt complaining of hip and back pain. Will also need OT orders for pain in the hands. Please fax to [phone] (attention: michelle) documented in this encounter Plan of Treatment Upcoming Encounters Date Type Department Care Team (Late st Contact Info) Description 09/04/2024 10:00 AM EST Office Visit [facility] MED & PEDS [address] [place], [place] [phone] Rosalind Cardoso FNP [address] [place], [place] [phone] Scheduled Referrals Name Type Priority Associated Diagnoses Orde r Schedule Referral to Physical Therapy Outpatient Referral Routine Back pain, unspecified back location, unspecified back pain laterality, unspecified chronicity Hip pain, unspecified laterality Expected: 07/31/2023 (Approximate), Expires: 07/31/2024 Referral to Occupational Therapy Outpatient Referral Routine Pain in both hands Expected: 07/31/2023 (Approximate), Expires: 07/31/2024 documented as of this encounter Visit Diagnoses Diagnosis Pain in both hands- Primary Back pain, unspecified back location, unspecified back pain laterality, unspecified chronicity Hip pain, unspecified laterality documented in this encounter Additional Health Concerns Assessment Noted Time PHQ-9 Depression Total Score: 0 12/26/19 23 1:09 PM EDT documented as of this encounter Care Teams It Risk And Assurance Manager Relationship Specialty Start Date End Date Rosalind Cardoso FNP [address] [place] [address] PCP - General Family Medicine 04/28/21 documented as of this encounter
--- OUTSIDE RECORDS SUMMARY | 2024-08-04 10:22 | XMS_ITS | Encounter Summary ---
Author Organization [employer] Address [address] [facility] 7t [place] [address] Care Team Providers Care Household Appliance Installer Name Role Phone Rosalind Cardoso Primary Care Provider [phone] Reason for Visit * Reason Comments Med Refill Encounter Details Date Type Department Care Team ([facility] st Contact Info) Description 05/28/2023 Refill [facility] MED & PEDS [address] [place], [place] [phone] Rosalind Cardoso FNP [address] [place] [address] Other chronic osteomyelitis of left foot (CMS/HCC); Low back pain at multiple sites Social History Tobacco Use Types Packs/Day Years [...] 10:00 AM EST Office Visit [facility] MED & PEDS [address] [place] [address] Rosalind Cardoso FNP [address] [place] [address] documented as of this encounter Visit Diagnoses Diagnosis Other chronic osteomyelitis of left foot (CMS/HCC) Low back pain at multiple sites documented in this encounter Additional Health Concerns Assessment Noted Time PHQ-9 Depression Total Score: 0 12/26/19 23 1:09 PM EDT documented as of this encounter Care Teams Household Appliance Installer Relationship Specialty Start Date End Date Rosalind Cardoso FNP [address] [place] [address] PCP - General Family Medicine 04/28/21 documented as of this encounter
--- OUTSIDE RECORDS SUMMARY | 2024-08-04 10:22 | XMS_ITS | Encounter Summary ---
Author Organization [employer] Address [address] [place] [address] 7t [place] [address] Care Team Providers Care School Crossing Guard Name Role Phone Rosalind Cardoso Primary Care Provider [phone] Reason for Visit * Reason Comments Med Refill Encounter Details Date Type Department Care Team ([facility] st Contact Info) Description 08/03/2024 Refill [facility] CHC MED & PEDS [address] [place], [place] [phone] Rosalind Cardoso FNP [address] [place] [address] Type 2 diabetes mellitus with foot ulcer, with long-term current use of insulin ([facility]) Social History Tobacco Use Types Packs/Day Years [...] 09/04/2024 10:00 AM EST Office [facility] MED & PEDS [address] [place] [address] Rosalind Cardoso FNP [address] [place] [address] documented as of this encounter Visit Diagnoses Diagnosis Type 2 diabetes mellitus with foot ulcer, with long-term current use of insulin ([facility]) documented in this encounter Additional Health Concerns Assessment Noted Time PHQ-9 Depression Total Score: 6 08/03/19 25 9:07 AM EST documented as of this encounter Care Teams School Crossing Guard Relationship Specialty Start Date End Date Rosalind Cardoso FNP [address] [place] [address] PCP - General Family Medicine 04/28/21 documented as of this encounter
--- OUTSIDE RECORDS SUMMARY | 2024-08-04 10:22 | XMS_ITS | Encounter Summary ---
Author Organization [employer] Address [address] [facility] 7t [place] [address] Care Team Providers Care Waste Water Treatment Plant Operator Name Role Phone Rosalind Cardoso Primary Care Provider [phone] Reason for Visit * Reason Onset Date Comments appointiment question 08/20/2022 Encounter Details Date Type Department Care Team ([facility] st Contact Info) Description 08/20/2022 Telephone [facility] MEDICINE [address] [place] [address] Rosalind Cardoso FNP [address] [place] [address] appointiment question Social History Tobacco Use Types Packs/Day Years [...] * Telephone Encounter - Suzette Weaver - 08/20/2022 11:10 AM EST Tc from pt requesting to a call back in regards to appt scheduled for 08/21/22 @ 3pm, States they are currently in the hospital and does not know if they will make it to appt, pt is requesting appt iván switched to TELE. Please contact at [phone] documented in this encounter Plan of Treatment Upcoming Encounters Date Type Department Care Team (Late st Contact Info) Description 09/04/2024 10:00 AM EST Office Visit [facility] CHC MED & PEDS [address] [place] [address] Rosalind Cardoso FNP [address] [place] [address] documented as of this encounter Visit Diagnoses Not on filedocumented in this encounter Care Teams Waste Water Treatment Plant Operator Relationship Specialty Start Date End Date Rosalind Cardoso FNP [address] [place] [address] PCP - General Family Medicine 04/28/21 documented as of this encounter
--- OUTSIDE RECORDS SUMMARY | 2024-08-04 10:22 | XMS_ITS | Encounter Summary ---
Author Organization [employer] Address [address] [place] [address] 7t [place] [address] Care Team Providers Care Deadener Name Role Phone Rosalind Cardoso Primary Care Provider [phone] Reason for Visit * Reason Comments Med Refill Encounter Details Date Type Department Care Team ([facility] st Contact Info) Description 07/11/2024 Refill [facility] CHC MED & PEDS [address] [place], [place] [phone] Rosalind Cardoso FNP [address] [place] [address] Low back pain at multiple sites Social [...] Description 09/04/2024 10:00 AM EST Office Visit [facility] CHC MED & PEDS [address] [place], [place] [phone] Rosalind Cardoso FNP [address] [place], [place] [phone] documented as of this encounter Visit Diagnoses Diagnosis Low back pain at multiple sites documented in this encounter Additional Health Concerns Assessment Noted Time PHQ-9 Depression Total Score: 0 12/26/19 23 1:09 PM EDT documented as of this encounter Care Teams Deadener Relationship Specialty Start Date End Date Rosalind Cardoso FNP [address] [place] [address] PCP - General Family Medicine 04/28/21 documented as of this encounter
--- OUTSIDE RECORDS SUMMARY | 2024-08-04 10:22 | XMS_ITS | Encounter Summary ---
Author Organization [employer] Address [address] [facility] 7t [place] [address] Care Team Providers Care Optomechanical Engineer Name Role Phone Rosalind Cardoso Primary Care Provider [phone] Reason for Visit * Reason Onset Date Comments Results 08/29/2023 Encounter Details Date Type Department Care Team ([facility] st Contact Info) Description 08/29/2023 Telephone [facility] MEDICINE [address] [place] [address] Rosalind Cardoso FNP [address] [place] [address] Results Social History Tobacco Use Types Packs/Day [...] Miscellaneous Notes * Telephone Encounter - Wing Deep RN - 08/29/2023 2:52 PM EST T/c to pt regarding labs revied by PCP about low hemoglobin. Informed pt to contact heme/onc to schedule procrit. Pt verbalizes understanding and agrees with plan. Message from PCP, Please call Ms. Parish - not all of her lab work is back, but Hemoglobin has dropped notably since last checked end of Jul 2023. Was 10.3/34.2, now 8.8/29.5. Please have her call heme/onc to schedule procrit if needed. Thank you. * Telephone Encounter - Franc Talley - 08/29/2023 1:39 PM EST Tc from pt requesting a call from provideer or a nurse in regards to her blood work that was done today 08/29/23. Please contact pt @ [phone] documented in this encounter Plan of Treatment Upcoming Encounters Date Type Department Care Team (Late st Contact Info) Description 09/04/2024 10:00 AM EST Office Visit [facility] MED & PEDS [address] [place] [address] Rosalind Cardoso FNP [address] [place] [address] documented as of this encounter Visit Diagnoses Not on filedocumented in this encounter Additional Health Concerns Assessment Noted Time PHQ-9 Depression Total Score: 0 12/26/19 23 1:09 PM EDT documented as of this encounter Care Teams Optomechanical Engineer Relationship Specialty Start Date End Date Rosalind Cardoso FNP [address] [place] [address] PCP - General Family Medicine 04/28/21 documented as of this encounter
--- OUTSIDE RECORDS SUMMARY | 2024-08-04 10:23 | XMS_ITS | Encounter Summary ---
Author Organization [employer] Address [address] [facility] [address] [place] [address] Care Team Providers Care Baton Twirler Name Role Phone Rosalind Cardoso Primary Care Provider [phone] Reason for Visit * Reason Onset Date Comments Lab Orders 08/19/2023 Encounter Details Date Type Department Care Team ([facility] st Contact Info) Description 08/19/2023 Telephone [facility] MEDICINE [address] [place] [address] Rosalind Cardoso FNP [address] [place] [address] Lab Orders Social History Tobacco Use Types [...] Telephone Encounter - Tiffanie Marquez RN - 09/09/2023 4:22 PM EST Orders printed and faxed to [facility] as requested. Confirmation received. * Telephone Encounter - Mira Wilson RN - 09/09/2023 2:40 PM EST TC placed to [facility] labs x 2 to try to answer this question. They state we should speak with patient registration at [phone]. Patient registration states there is an RLAB feature. Then she informedus that all recurring labs must have a paper trail. The paper copy of each of these recurring labs must be faxed to them at [phone]. The orders are fine as is with the standing order q 2 weeks comment but must be faxed. They can complete current round of labs because they are in the computer, but for future repeat labs, will need the paper copy. Routing back to [facility] nurses to fax all repeatorders for bloodwork in chart and routing message to Murray Cardoso so she is aware. Just tried to send the lab work again as a standing order. Can you please call [facility] and see what they say it looks like on their end? Will she be able to get them Q2 weeks w/o having to put in new orders every time? Thanks! * Telephone Encounter - TAMY Ram - 09/09/2023 12:39 PM EST Just tried to send the lab work again as a standing order. Can you please call [facility] and see what they say it looks like on their end? Will she be able to get them Q2 weeks w/o having to put in new orders every time? Thanks! 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 Thanks! * Telephone Encounter - Suzette Weaver - 08/19/2023 11:06 AM EST Tc from pt requesting full routine lab work to be sent to [facility], [facility] gets lab work done every 2 weeks. Please contact at [phone] documented in this encounter Plan of Treatment Upcoming Encounters Date Type Department Care Team (Late st Contact Info) Description 09/04/2024 10:00 AM EST Office Visit [facility] PEDS [address] [place] [address] Rosalind Cardoso, LAUNDRY ROUTEMAN [address] [place] [address] Scheduled Orders Name Type Priority Associated Diagnoses Orde r Schedule CBC auto differential Lab Routine Type 2 diabetes mellitus with stage 3 chronic kidney disease, with long-term current use of insulin, unspecified whether stage 3a or 3b CKD (CMS/HCC) Myalgia Every 2 weeks for 26 Occurrences starting 09/09/2023 until 09/08/2024, 6 completed Prothrombin Time-INR Lab Routine Type 2 diabetes mellitus with stage 3 chronic kidney disease, with long-term current use of insulin, unspecified whether stage 3a or 3b CKD (CMS/HCC) Myalgia Every 2 weeks for 26 Occurrences starting 09/09/2023 until 09/08/2024, 9 completed Magnesium Lab Routine Type 2 diabetes mellitus with stage 3 chronic kidney disease, with long-term current use of insulin, unspecified whether stage 3a or 3b CKD (CMS/HCC) Myalgia Every 2 weeks for 26 Occurrences starting 09/09/2023 until 09/08/2024, 8 completed C-reactive Protein Lab Routine Type 2 diabetes mellitus with stage 3 chronic kidney disease, with long-term current use of insulin, unspecified whether stage 3a or 3b CKD (CMS/HCC) Myalgia Every 2 weeks for 26 Occurrences starting 09/09/2023 until 09/08/2024, 7 completed documented as of this encounter Procedures Procedure Name Priority Date/Time Associated Diagnosis Comments CBC WITH AUTO DIFFERENTIAL Routine 09/10/2023 9:39 AM EST Type 2 diabetes mellitus with stage 3 chronic kidney disease, with long-term current use of insulin, unspecified whether stage 3a or 3b CKD (CMS/HCC) Myalgia SED RATE BY MODIFIED WESTERGREN Routine 09/10/2023 9:39 AM EST Type 2 diabetes mellitus with stage 3 chronic kidney disease, with long-term current use of insulin, unspecified whether stage 3a or 3b CKD (CMS/HCC) Myalgia PROTHROMBIN TIME-INR Routine 09/10/2023 9:39 AM EST Type 2 diabetes mellitus with stage 3 chronic kidney disease, with long-term current use of insulin, unspecified whether stage 3a or 3b CKD (CMS/HCC) Myalgia C-REACTIVE PROTEIN Routine 09/10/2023 9: 39 AM EST Type 2 diabetes mellitus with stage 3 chronic kidney disease, with long-term current use of insulin, unspecified whether stage 3a or 3b CKD (CMS/HCC) Myalgia MAGNESIUM Routine 09/10/2023 9:39 AM EST Type 2 diabetes mellitus with stage 3 chronic kidney disease, with long-term current use of insulin, unspecified whether stage 3a or 3b CKD (CMS/HCC) Myalgia CBC WITH AUTO DIFFERENTIAL Routine 08/29/2023 10:54 AM EST Type 2 diabetes mellitus with stage 3 chronic kidney disease, with long-term current use of insulin, unspecified whether stage 3a or 3b CKD (CMS/HCC) Myalgia SED RATE BY MODIFIED WESTERGREN Routine 08/29/2023 10:54 AM EST Myalgia PROTHROMBIN TIME-INR Routine 08/29/2023 10:54 AM EST Myalgia C-REACTIVE PROTEIN Routine 08/29/2023 10 :54 AM EST Myalgia MAGNESIUM Routine 08/29/2023 10:54 AM EST Type 2 diabetes mellitus with stage 3 chronic kidney disease, with long-term current use of insulin, unspecified whether stage 3a or 3b CKD (CMS/HCC) Myalgia COMPREHENSIVE METABOLIC PANEL Routine 08/29/2023 10:54 AM EST Type 2 diabetes mellitus with stage 3 chronic kidney disease, with long-term current use of insulin, unspecified whether stage 3a or 3b CKD (CMS/HCC) Myalgia documented in this encounter Results * C-reactive Protein (06/23/2024 10:31 AM EST) C Reactive Protein 0.50 < or = 0.50 mg/dL [facility] Blood Venous blood specimen / Unknown 06/23/2024 10:31 AM EST 06/23/2024 10:31 AM EST Rosalind Cardoso LAUNDRY ROUTEMAN LAB BLOOD ORDERABLES Final Res ult Performing Organization Address [facility] Co de Phone Number [facility] [address] [place] [phone] * Magnesium (06/23/2024 10:31 AM EST) Magnesium 1.8 1.6 - 2.6 mg/dL [facility] Blood Venous blood specimen / Unknown 06/23/2024 10:31 AM EST 06/23/2024 10:31 AM EST Rosalind Cardoso LAUNDRY ROUTEMAN LAB BLOOD ORDERABLES Final Res ult Performing Organization Address [facility] Phone Number [facility] [address] [place] [phone] * Magnesium (05/29/2024 2:18 PM EST) Pathologist [facility] Magnesium 2.0 1.6 - 2.6 mg/dL [facility] Blood Venous blood specimen / Unknown 05/29/2024 2:18 PM EST 05/29/2024 2:18 PM EST Rosalind Cardoso LAUNDRY ROUTEMAN LAB BLOOD ORDERABLES Final Res ult Performing Organization Address [facility] de Phone Number [facility] [address] [place] [address] [phone] * Prothrombin Time-INR (05/29/2024 2:18 PM EST) Prothrombin Time 11.1 10.9 - 12.4 SEC [facility] INTERNATIONAL NORM RATIO 1.0 0.9 - 1.1 [facility] Comment:INTERNATIONAL NORMAL IZED RATIO (INR) [...] 05/29/2024 2:18 PM EST Rosalind Cardoso [facility] BLOOD ORDERABLES Final Res ult Performing Organization Address [facility] Co de Phone Number [facility] [address] [place] [address] [phone] * Prothrombin Time-INR (01/17/2024 12:30 PM EDT) Prothrombin Time 11.4 11.1 - 13.3 SEC [facility] INTERNATIONAL NORM RATIO 0.9 0.9 - 1.1 [facility] Comment:INTERNATIONAL NORMAL IZED RATIO (INR) [...] PM EDT 01/17/2024 12:30 PM EDT Rosalind Two Tapedna [facility] LAB BLOOD ORDERABLES Final Res ult Performing Organization Address [facility] Co de Phone Number [facility] [address] [place] [address] [phone] * Prothrombin Time-INR (12/27/2023 9:33 AM EDT) Prothrombin Time 11.5 11.1 - 13.3 SEC [facility] INTERNATIONAL NORM RATIO 0.9 0.9 - 1.1 [facility] Comment:INTERNATIONAL NORMAL IZED RATIO (INR) [...] 12/27/2023 9:33 AM EDT us Rosalind Cardoso LAUNDRY ROUTEMAN LAB BLOOD ORDERABLES Final Res ult [facility] [address] [place] [phone] * (ABNORMAL) CBC auto differential (12/13/2023 8:52 AM EDT) White Blood Count 9.1 4.8 - 10.8 X10*3/uL [facility] Red Blood Count 6.02(H) 4.20 - 5.50 X10*6/uL [facility] Hemoglobin 11.4(L) 12.0 - 16.0 g/dl [facility] Hematocrit 37.7 37.0 - 47.0 % [facility] Mean Corpuscular Volume 62.6(L) 80.0 - 98.0 fL [facility] Mean Corpuscular Hemoglobin 18.9(L) 27.0 - 33.0 pg [facility] Mean Corpuscular HGB Conc 30.2(L) 31.0 - 35.0 g/dl [facility] Red Cell Distribution Width 17.2(H) 11.0 - 16.0 % [facility] Platelet Count 285 160 - 400 X10*3/uL [facility] Mean Platelet Volume 10.8 9.4 - 12.3 fL [facility] Neutrophils Percent Auto 51.6 45 - 73 % [facility] Imm Gran Pct Auto 0.4 0.0 - 0.4 % [facility] Lymphocytes Percent Auto 36.9 20 - 40 % [facility] Monocytes Percent Auto 7.7 2 - 11 % [facility] Eosinophils Percent Auto 2.8 0 - 4 % [facility] Basophils Percent Auto 0.6 0 - 2 % [facility] NRBC Pct Auto 0.0 0.0 - 0.2 /100WBC [facility] Neutrophils Absolute Auto 4.7 2.0 - 8.3 x10*3/uL [facility] Imm Gran Abs Auto 0.04(H) 0.00 - 0.03 X10*3/uL [facility] Lymphocytes Absolute Auto 3.3 1.2 - 4.9 X10*3/uL [facility] Monocytes Absolute Auto 0.7 0.1 - 1.2 X10*3/uL [facility] Eosinophils Absolute Auto 0.3 0.0 - 0.4 X10*3/uL [facility] Basophils Absolute Auto 0.1 0.0 - 0.2 X10*3/uL [facility] NRBC Abs Auto 0.000 0.0 - 0.012 X10*3/uL [facility] Blood Venous blood specimen / Unknown 12/13/2023 8:52 AM EDT 12/13/2023 8:52 AM EDT Rosalind Cardoso LAUNDRY ROUTEMAN LAB BLOOD ORDERABLES Final Res ult [facility] [address] [place] [phone] * C-reactive Protein (11/29/2023 1:21 PM EDT) C Reactive Protein 0.34 < or = 0.50 mg/dL [facility] Blood Venous blood specimen / Unknown 11/29/2023 1:21 PM EDT 11/29/2023 1:21 PM EDT Rosalind Cardoso LAUNDRY ROUTEMAN LAB BLOOD ORDERABLES Final Res ult Performing Organization Address [facility]/ZIP Co de Phone Number [facility] [address] [place] [address] [phone] * Magnesium (11/29/2023 1:21 PM EDT) Magnesium 1.8 1.6 - 2.6 mg/dL [facility] Blood Venous blood specimen / Unknown 11/29/2023 1:21 PM EDT 11/29/2023 1:21 PM EDT Rosalind Cardoso LAUNDRY ROUTEMAN LAB BLOOD ORDERABLES Final Res ult Performing Organization Address [facility] de Phone Number [facility] [address] [place] [address] [phone] * Prothrombin Time-INR (11/29/2023 1:21 PM EDT) Prothrombin Time 11.8 11.1 - 13.3 SEC [facility] INTERNATIONAL NORM RATIO 1.0 0.9 - 1.1 [facility] Comment:INTERNATIONAL NORMAL IZED RATIO (INR) [...] EDT 11/29/2023 1:21 PM EDT Rosalind Cardoso LAUNDRY ROUTEMAN LAB BLOOD ORDERABLES Final Res ult Performing Organization Address [facility] Co de Phone Number [facility] [address] [place] [address] [phone] * (ABNORMAL) CBC auto differential (11/29/2023 1:21 PM EDT) White Blood Count 8.7 4.8 - 10.8 X10*3/uL [facility] Red Blood Count 5.99(H) 4.20 - 5.50 X10*6/uL [facility] Hemoglobin 11.3(L) 12.0 - 16.0 g/dl [facility] Hematocrit 37.5 37.0 - 47.0 % [facility] Mean Corpuscular Volume 62.6(L) 80.0 - 98.0 fL [facility] Mean Corpuscular Hemoglobin 18.9(L) 27.0 - 33.0 pg [facility] Mean Corpuscular HGB Conc 30.1(L) 31.0 - 35.0 g/dl [facility] Red Cell Distribution Width 16.4(H) 11.0 - 16.0 % [facility] Platelet Count 310 160 - 400 X10*3/uL [facility] Mean Platelet Volume 11.1 9.4 - 12.3 fL [facility] Neutrophils Percent Auto 56.2 45 - 73 % [facility] Imm Gran Pct Auto 0.2 0.0 - 0.4 % [facility] Lymphocytes Percent Auto 32.5 20 - 40 % [facility] Monocytes Percent Auto 7.6 2 - 11 % [facility] Eosinophils Percent Auto 2.8 0 - 4 % [facility] Basophils Percent Auto 0.7 0 - 2 % [facility] NRBC Pct Auto 0.0 0.0 - 0.2 /100WBC [facility] Neutrophils Absolute Auto 4.9 2.0 - 8.3 x10*3/uL [facility] Imm Gran Abs Auto 0.02 0.00 - 0.03 X10*3/uL [facility] Lymphocytes Absolute Auto 2.8 1.2 - 4.9 X10*3/uL [facility] Monocytes Absolute Auto 0.7 0.1 - 1.2 X10*3/uL [facility] Eosinophils Absolute Auto 0.2 0.0 - 0.4 X10*3/uL [facility] Basophils Absolute Auto 0.1 0.0 - 0.2 X10*3/uL [facility] NRBC Abs Auto 0.000 0.0 - 0.012 X10*3/uL [facility] Blood Venous blood specimen / Unknown 11/29/2023 1:21 PM EDT 11/29/2023 1:21 PM EDT Rosalind Cardoso LAUNDRY ROUTEMAN LAB BLOOD ORDERABLES Final Res ult Performing Organization Address [facility]/ZIP Co de Phone Number [facility] [address] [place] [address] [phone] * (ABNORMAL) C-reactive Protein (11/20/2023 9:36 AM EDT) C Reactive Protein 1.26(H) < or = 0.50 mg/dL [facility] Blood Venous blood specimen / Unknown 11/20/2023 9:36 AM EDT 11/20/2023 9:36 AM EDT Rosalind Cardoso LAUNDRY ROUTEMAN LAB BLOOD ORDERABLES Final Res ult Performing Organization Address [facility]/ZIP Co de Phone Number [facility] [address] [place] [address] [phone] * Magnesium (11/20/2023 9:36 AM EDT) Magnesium 1.8 1.6 - 2.6 mg/dL [facility] Blood Venous blood specimen / Unknown 11/20/2023 9:36 AM EDT 11/20/2023 9:36 AM EDT Rosalind Cardoso LAUNDRY ROUTEMAN LAB BLOOD ORDERABLES Final Res ult Performing Organization Address City/[facility]/ZIP Co de Phone Number [facility] [address] [place] [address] [phone] * Prothrombin Time-INR (11/20/2023 9:36 AM EDT) Pathologist [facility] Prothrombin Time 11.6 11.1 - 13.3 SEC [facility] INTERNATIONAL NORM RATIO 1.0 0.9 - 1.1 [facility] Comment:INTERNATIONAL NORMAL IZED RATIO (INR) [...] EDT 11/20/2023 9:36 AM EDT Rosalind Cardoso LAUNDRY ROUTEMAN LAB BLOOD ORDERABLES Final Res ult [facility] [address] [place] [phone] * (ABNORMAL) CBC auto differential (11/01/2023 3:58 PM EDT) Pathologist [facility] White Blood Count 10.2 4.8 - 10.8 X10*3/uL [facility] Red Blood Count 5.64(H) 4.20 - 5.50 X10*6/uL [facility] Hemoglobin 10.9(L) 12.0 - 16.0 g/dl [facility] Hematocrit 36.9(L) 37.0 - 47.0 % [facility] Mean Corpuscular Volume 65.4(L) 80.0 - 98.0 fL [facility] Mean Corpuscular Hemoglobin 19.3(L) 27.0 - 33.0 pg [facility] Mean Corpuscular HGB Conc 29.5(L) 31.0 - 35.0 g/dl [facility] Red Cell Distribution Width 18.8(H) 11.0 - 16.0 % [facility] Platelet Count 469(H) 160 - 400 X10*3/uL [facility] Mean Platelet Volume 10.4 9.4 - 12.3 fL [facility] Neutrophils Percent Auto 66.7 45 - 73 % [facility] Imm Gran Pct Auto 0.3 0.0 - 0.4 % [facility] Lymphocytes Percent Auto 22.9 20 - 40 % [facility] Monocytes Percent Auto 6.2 2 - 11 % [facility] Eosinophils Percent Auto 3.3 0 - 4 % [facility] Basophils Percent Auto 0.6 0 - 2 % [facility] NRBC Pct Auto 0.2 0.0 - 0.2 /100WBC [facility] Neutrophils Absolute Auto 6.8 2.0 - 8.3 x10*3/uL [facility] Imm Gran Abs Auto 0.03 0.00 - 0.03 X10*3/uL [facility] Lymphocytes Absolute Auto 2.3 1.2 - 4.9 X10*3/uL [facility] Monocytes Absolute Auto 0.6 0.1 - 1.2 X10*3/uL [facility] Eosinophils Absolute Auto 0.3 0.0 - 0.4 X10*3/uL [facility] Basophils Absolute Auto 0.1 0.0 - 0.2 X10*3/uL [facility] NRBC Abs Auto 0.020(H) 0.0 - 0.012 X10*3/uL [facility] Blood Venous blood specimen / Unknown 11/01/2023 3:58 PM EDT 11/01/2023 5:40 PM EDT Rosalind Cardoso LAUNDRY ROUTEMAN LAB BLOOD ORDERABLES Final Res ult [facility] [address] [place] [phone] * C-reactive Protein (11/01/2023 3:53 PM EDT) C Reactive Protein 0.48 < or = 0.50 mg/dL [facility] Blood Venous blood specimen / Unknown 11/01/2023 3:53 PM EDT 11/01/2023 5:40 PM EDT Rosalind Cardoso [facility] BLOOD ORDERABLES Final Res ult Performing Organization Address [facility] de Phone Number [facility] [address] [place] [address] [phone] * Magnesium (11/01/2023 3:53 PM EDT) [facility] Magnesium 1.7 1.6 - 2.6 mg/dL [facility] Blood Venous blood specimen / Unknown 11/01/2023 3:53 PM EDT 11/01/2023 5:40 PM EDT Rosalind Cardoso [facility] BLOOD ORDERABLES Final Res ult Performing Organization Address [facility] Phone Number [facility] [address] [place] [address] [phone] * Prothrombin Time-INR (11/01/2023 3:53 PM EDT) [facility] Prothrombin Time 12.3 11.1 - 13.3 SEC [facility] INTERNATIONAL NORM RATIO 1.0 0.9 - 1.1 [facility] Comment:INTERNATIONAL NORMAL IZED RATIO (INR) [...] EDT 11/01/2023 5:40 PM EDT Rosalind Cardoso LAUNDRY ROUTEMAN LAB BLOOD ORDERABLES Final Res ult Performing Organization Address [facility] Co de Phone Number [facility] [address] [place] [address] [phone] * (ABNORMAL) C-reactive Protein (10/25/2023 1:09 PM EDT) C Reactive Protein 1.49(H) < or = 0.50 mg/dL [facility] Blood Venous blood specimen / Unknown 10/25/2023 1:09 PM EDT 10/25/2023 1:09 PM EDT Rosalind Cardoso LAUNDRY ROUTEMAN LAB BLOOD ORDERABLES Final Res ult Performing Organization Address [facility] Co de Phone Number [facility] [address] [place] [address] [phone] * Magnesium (10/25/2023 1:09 PM EDT) Magnesium 2.1 1.6 - 2.6 mg/dL [facility] Blood Venous blood specimen / Unknown 10/25/2023 1:09 PM EDT 10/25/2023 1:09 PM EDT Rosalind Cardoso LAUNDRY ROUTEMAN LAB BLOOD ORDERABLES Final Res ult Performing Organization Address [facility] Co de Phone Number [facility] [address] [place] [address] [phone] * Prothrombin Time-INR (10/25/2023 1:09 PM EDT) Prothrombin Time 12.3 11.1 - 13.3 SEC [facility] INTERNATIONAL NORM RATIO 1.0 0.9 - 1.1 [facility] Comment:INTERNATIONAL NORMAL IZED RATIO (INR) [...] 3.5 Blood Venous blood specimen / Unknown 10/25/2023 1:09 PM EDT 10/25/2023 1:09 PM EDT Rosalind Cardoso LAUNDRY ROUTEMAN LAB BLOOD ORDERABLES Final Res ult [facility] [address] [place] [phone] * (ABNORMAL) CBC auto differential (10/25/2023 1:09 PM EDT) White Blood Count 9.0 4.8 - 10.8 X10*3/uL [facility] Red Blood Count 4.91 4.20 - 5.50 X10*6/uL [facility] Hemoglobin 9.5(L) 12.0 - 16.0 g/dl [facility] Hematocrit 32.4(L) 37.0 - 47.0 % [facility] Mean Corpuscular Volume 66.0(L) 80.0 - 98.0 fL [facility] Mean Corpuscular Hemoglobin 19.3(L) 27.0 - 33.0 pg [facility] Mean Corpuscular HGB Conc 29.3(L) 31.0 - 35.0 g/dl [facility] Red Cell Distribution Width 17.2(H) 11.0 - 16.0 % [facility] Platelet Count 442(H) 160 - 400 X10*3/uL [facility] Mean Platelet Volume 11.3 9.4 - 12.3 fL [facility] Neutrophils Percent Auto 60.9 45 - 73 % [facility] Imm Gran Pct Auto 0.4 0.0 - 0.4 % [facility] Lymphocytes Percent Auto 25.2 20 - 40 % [facility] Monocytes Percent Auto 8.7 2 - 11 % [facility] Eosinophils Percent Auto 4.1(H) 0 - 4 % [facility] Basophils Percent Auto 0.7 0 - 2 % [facility] NRBC Pct Auto 0.0 0.0 - 0.2 /100WBC [facility] Neutrophils Absolute Auto 5.5 2.0 - 8.3 x10*3/uL [facility] Imm Gran Abs Auto 0.04(H) 0.00 - 0.03 X10*3/uL [facility] Lymphocytes Absolute Auto 2.3 1.2 - 4.9 X10*3/uL [facility] Monocytes Absolute Auto 0.8 0.1 - 1.2 X10*3/uL [facility] Eosinophils Absolute Auto 0.4 0.0 - 0.4 X10*3/uL [facility] Basophils Absolute Auto 0.1 0.0 - 0.2 X10*3/uL [facility] NRBC Abs Auto 0.000 0.0 - 0.012 X10*3/uL [facility] Blood Venous blood specimen / Unknown 10/25/2023 1:09 PM EDT 10/25/2023 1:09 PM EDT Rosalind Cardoso [facility] BLOOD ORDERABLES Final Res ult Performing Organization Address [facility]/ZIP Co de Phone Number [facility] [address] [place] [address] [phone] * (ABNORMAL) C-reactive Protein (09/27/2023 9:56 AM EDT) C Reactive Protein 0.63(H) < or = 0.50 mg/dL [facility] Blood Venous blood specimen / Unknown 09/27/2023 9:56 AM EDT 09/27/2023 9:58 AM EDT Roslaind Janae LAUNDRY ROUTEMAN LAB BLOOD ORDERABLES Final Res ult Performing Organization Address City/[facility]/ZIP Co de Phone Number [facility] [address] [place] [phone] * Magnesium (09/27/2023 9:56 AM EDT) Pathologist [facility] Magnesium 1.7 1.6 - 2.6 mg/dL [facility] Blood Venous blood specimen / Unknown 09/27/2023 9:56 AM EDT 09/27/2023 9:58 AM EDT [facility] LAB BLOOD ORDERABLES Final Res ult Performing Organization Address City/[facility]/ZIP Co de Phone Number [facility] [address] [place] [phone] * Prothrombin Time-INR (09/27/2023 9:56 AM EDT) [facility] Prothrombin Time 11.5 11.1 - 13.3 SEC [facility] INTERNATIONAL NORM RATIO 0.9 0.9 - 1.1 [facility] Comment:INTERNATIONAL NORMAL IZED RATIO (INR) [...] 3.5 Blood Venous blood specimen / Unknown 09/27/2023 9:56 AM EDT 09/27/2023 9:58 AM EDT Rosalind [facility] LAB BLOOD ORDERABLES Final Res ult [facility] [address] [place] [phone] * (ABNORMAL) CBC auto differential (09/27/2023 9:56 AM EDT) Pathologist [facility] White Blood Count 8.6 4.8 - 10.8 X10*3/uL [facility] Red Blood Count 4.52 4.20 - 5.50 X10*6/uL [facility] Hemoglobin 8.8(L) 12.0 - 16.0 g/dl [facility] Hematocrit 29.9(L) 37.0 - 47.0 % [facility] Mean Corpuscular Volume 66.2(L) 80.0 - 98.0 fL [facility] Mean Corpuscular Hemoglobin 19.5(L) 27.0 - 33.0 pg [facility] Mean Corpuscular HGB Conc 29.4(L) 31.0 - 35.0 g/dl [facility] Red Cell Distribution Width 18.4(H) 11.0 - 16.0 % [facility] Platelet Count 370 160 - 400 X10*3/uL [facility] Mean Platelet Volume 10.5 9.4 - 12.3 fL [facility] Neutrophils Percent Auto 66.9 45 - 73 % [facility] Imm Gran Pct Auto 0.6(H) 0.0 - 0.4 % [facility] Lymphocytes Percent Auto 21.8 20 - 40 % [facility] Monocytes Percent Auto 7.0 2 - 11 % [facility] Eosinophils Percent Auto 3.0 0 - 4 % [facility] Basophils Percent Auto 0.7 0 - 2 % [facility] NRBC Pct Auto 0.0 0.0 - 0.2 /100WBC [facility] Neutrophils Absolute Auto 5.7 2.0 - 8.3 x10*3/uL [facility] Imm Gran Abs Auto 0.05(H) 0.00 - 0.03 X10*3/uL [facility] Lymphocytes Absolute Auto 1.9 1.2 - 4.9 X10*3/uL [facility] Monocytes Absolute Auto 0.6 0.1 - 1.2 X10*3/uL [facility] Eosinophils Absolute Auto 0.3 0.0 - 0.4 X10*3/uL [facility] Basophils Absolute Auto 0.1 0.0 - 0.2 X10*3/uL [facility] NRBC Abs Auto 0.000 0.0 - 0.012 X10*3/uL [facility] Blood Venous blood specimen / Unknown 09/27/2023 9:56 AM EDT 09/27/2023 9:58 AM EDT Rosalind Cardoso LAUNDRY ROUTEMAN LAB BLOOD ORDERABLES Final Res ult Performing Organization Address [facility] Co de Phone Number [facility] [address] [place] [phone] * (ABNORMAL) Sed Rate by Modified Javierren (09/10/2023 9:39 AM EST) Erythrocyte Sedimentation Rate 49(H) 0 - 20 MM/HR [facility] Comment:Patients with polycy themia and many hemoglobin abnormalitiesmay have depressed sed rates whereas patients with anemiamay have elevated sed rates. Blood Venous blood specimen / Unknown 09/10/2023 9:39 AM EST 09/10/2023 9:39 AM EST Rosalind Cardoso LAUNDRY ROUTEMAN LAB BLOOD ORDERABLES Final Res ult Performing Organization Address [facility] Phone Number [facility] [address] [place] [phone] * (ABNORMAL) C-reactive Protein (09/10/2023 9:39 AM EST) C Reactive Protein 0.66(H) < or = 0.50 mg/dL [facility] Blood Venous blood specimen / Unknown 09/10/2023 9:39 AM EST 09/10/2023 9:39 AM EST Rosalind Phaledna LAUNDRY ROUTEMAN LAB BLOOD ORDERABLES Final Res ult Performing Organization Address [facility] Co de Phone Number [facility] [address] [place] [phone] * Magnesium (09/10/2023 9:39 AM EST) Magnesium 1.8 1.6 - 2.6 mg/dL [facility] Blood Venous blood specimen / Unknown 09/10/2023 9:39 AM EST 09/10/2023 9:39 AM EST Rosalind Cardoso [facility] LAB BLOOD ORDERABLES Final Res ult Performing Organization Address [facility] Co de Phone Number [facility] [address] [place] [phone] * Prothrombin Time-INR (09/10/2023 9:39 AM EST) Pathologist [facility] Prothrombin Time 11.6 11.1 - 13.3 SEC [facility] INTERNATIONAL NORM RATIO 1.0 0.9 - 1.1 [facility] Comment:INTERNATIONAL NORMAL IZED RATIO (INR) [...] 3.5 Blood Venous blood specimen / Unknown 09/10/2023 9:39 AM EST 09/10/2023 9:39 AM EST Rosalind Cardoso [facility] LAB BLOOD ORDERABLES Final Res ult Performing Organization Address [facility] Co de Phone Number [facility] [address] [place] [phone] * (ABNORMAL) CBC auto differential (09/10/2023 9:39 AM EST) Pathologist [facility] White Blood Count 8.3 4.8 - 10.8 X10*3/uL [facility] Red Blood Count 4.25 4.20 - 5.50 X10*6/uL [facility] Hemoglobin 8.3(L) 12.0 - 16.0 g/dl [facility] Hematocrit 27.3(L) 37.0 - 47.0 % [facility] Mean Corpuscular Volume 64.2(L) 80.0 - 98.0 fL [facility] Mean Corpuscular Hemoglobin 19.5(L) 27.0 - 33.0 pg [facility] Mean Corpuscular HGB Conc 30.4(L) 31.0 - 35.0 g/dl [facility] Red Cell Distribution Width 18.5(H) 11.0 - 16.0 % [facility] Platelet Count 379 160 - 400 X10*3/uL [facility] Mean Platelet Volume 10.2 9.4 - 12.3 fL [facility] Neutrophils Percent Auto 61.4 45 - 73 % [facility] Imm Gran Pct Auto 0.5(H) 0.0 - 0.4 % [facility] Lymphocytes Percent Auto 26.0 20 - 40 % [facility] Monocytes Percent Auto 8.2 2 - 11 % [facility] Eosinophils Percent Auto 3.3 0 - 4 % [facility] Basophils Percent Auto 0.6 0 - 2 % [facility] NRBC Pct Auto 0.0 0.0 - 0.2 /100WBC [facility] Neutrophils Absolute Auto 5.1 2.0 - 8.3 x10*3/uL [facility] Imm Gran Abs Auto 0.04(H) 0.00 - 0.03 X10*3/uL [facility] Lymphocytes Absolute Auto 2.2 1.2 - 4.9 X10*3/uL [facility] Monocytes Absolute Auto 0.7 0.1 - 1.2 X10*3/uL [facility] Eosinophils Absolute Auto 0.3 0.0 - 0.4 X10*3/uL [facility] Basophils Absolute Auto 0.1 0.0 - 0.2 X10*3/uL [facility] NRBC Abs Auto 0.000 0.0 - 0.012 X10*3/uL [facility] Blood Venous blood specimen / Unknown 09/10/2023 9:39 AM EST 09/10/2023 9:39 AM EST us Rosalind Cardoso [facility] LAB BLOOD ORDERABLES Final Res ult Performing Organization Address [facility] Co de Phone Number [facility] [address] [place] [phone] * (ABNORMAL) Prothrombin Time-INR (08/29/2023 10:54 AM EST) Prothrombin Time 10.9(L) 11.1 - 13.3 SEC [facility] INTERNATIONAL NORM RATIO 0.9 0.9 - 1.1 [facility] Comment:INTERNATIONAL NORMAL IZED RATIO (INR) [...] 3.5 Blood Venous blood specimen / Unknown 08/29/2023 10:54 AM EST 08/29/2023 10:54 AM EST us Rosalind Cardoso [facility] LAB BLOOD ORDERABLES Final Res ult Performing Organization Address [facility]/ZIP Co de Phone Number [facility] [address] [place] [address] [phone] * (ABNORMAL) Comprehensive Metabolic Panel (08/29/2023 10:54 AM EST) Sodium 138 135 - 145 mmol/L [facility] Potassium 3.9 3.3 - 5.1 mmol/L [facility] Chloride 103 96 - 108 mmol/L [facility] Carbon Dioxide 26 22 - 29 mmol/L [facility] Anion Gap 13 12 - 20 [facility] Urea Nitrogen (BUN) 29(H) 9 - 16 mg/dL [facility] Creatinine, Serum 1.04 0.5 - 1.4 mg/dL [facility] Estimated Glomerular Filt Rate 54 [facility] Comment:NOTE: For -Am erican individuals, multiply the result by 1.210.Chronic Kidney Disease: Estimated GFR < 60 mL/min/1.23o0Gsuzio Kidney Disease: Estimated GFR < 15 mL/min/1.73m2 Glucose 314(H) 60 - 115 mg/dL [facility] Calcium 9.0 8.4 - 10.2 mg/dL [facility] Bilirubin, Total 0.2 0.0 - 1.0 mg/dL [facility] Aspartate Amino Transferase 14 5 - 31 U/L [facility] Alanine Aminotransferase 13 0 - 31 U/L [facility] Total Protein 6.3(L) 6.5 - 8.0 g/dL [facility] Albumin Level 3.2(L) 3.5 - 5.0 g/dL [facility] Alkaline Phosphatase 96 39 - 117 U/L [facility] Blood Venous blood specimen / Unknown 08/29/2023 10:54 AM EST 08/29/2023 10:54 AM EST us Rosalind Cardoso LAUNDRY ROUTEMAN LAB BLOOD ORDERABLES Final Res ult [facility] [address] [place] [phone] * (ABNORMAL) CBC auto differential (08/29/2023 10:54 AM EST) White Blood Count 8.8 4.8 - 10.8 X10*3/uL [facility] Red Blood Count 4.63 4.20 - 5.50 X10*6/uL [facility] Hemoglobin 8.8(L) 12.0 - 16.0 g/dl [facility] Hematocrit 29.5(L) 37.0 - 47.0 % [facility] Mean Corpuscular Volume 63.7(L) 80.0 - 98.0 fL [facility] Mean Corpuscular Hemoglobin 19.0(L) 27.0 - 33.0 pg [facility] Mean Corpuscular HGB Conc 29.8(L) 31.0 - 35.0 g/dl [facility] Red Cell Distribution Width 16.0 11.0 - 16.0 % [facility] Platelet Count 406(H) 160 - 400 X10*3/uL [facility] Mean Platelet Volume 10.9 9.4 - 12.3 fL [facility] Neutrophils Percent Auto 64.1 45 - 73 % [facility] Imm Gran Pct Auto 0.7(H) 0.0 - 0.4 % [facility] Lymphocytes Percent Auto 24.1 20 - 40 % [facility] Monocytes Percent Auto 7.7 2 - 11 % [facility] Eosinophils Percent Auto 2.7 0 - 4 % [facility] Basophils Percent Auto 0.7 0 - 2 % [facility] NRBC Pct Auto 0.0 0.0 - 0.2 /100WBC [facility] Neutrophils Absolute Auto 5.6 2.0 - 8.3 x10*3/uL [facility] Imm Gran Abs Auto 0.06(H) 0.00 - 0.03 X10*3/uL [facility] Lymphocytes Absolute Auto 2.1 1.2 - 4.9 X10*3/uL [facility] Monocytes Absolute Auto 0.7 0.1 - 1.2 X10*3/uL [facility] Eosinophils Absolute Auto 0.2 0.0 - 0.4 X10*3/uL [facility] Basophils Absolute Auto 0.1 0.0 - 0.2 X10*3/uL [facility] NRBC Abs Auto 0.000 0.0 - 0.012 X10*3/uL [facility] Blood Venous blood specimen / Unknown 08/29/2023 10:54 AM EST 08/29/2023 10:54 AM EST us Rosalind Cardoso LAUNDRY ROUTEMAN LAB BLOOD ORDERABLES Final Res ult [facility] [address] [place] [phone] * Magnesium (08/29/2023 10:54 AM EST) Magnesium 1.9 1.6 - 2.6 mg/dL [facility] Blood Venous blood specimen / Unknown 08/29/2023 10:54 AM EST 08/29/2023 10:54 AM EST Rosalind Janae LAUNDRY ROUTEMAN LAB BLOOD ORDERABLES Final Res ult Performing Organization Address [facility] Co de Phone Number [facility] [address] [place] [address] [phone] * (ABNORMAL) Sed Rate by Modified Mangoergren (08/29/2023 10:54 AM EST) Erythrocyte Sedimentation Rate 55(H) 0 - 20 MM/HR [facility] Comment:Patients with polycy themia and many hemoglobin abnormalitiesmay have depressed sed rates whereas patients with anemiamay have elevated sed rates. Blood Venous blood specimen / Unknown 08/29/2023 10:54 AM EST 08/29/2023 10:54 AM EST Rosalind Cardoso LAUNDRY ROUTEMAN LAB BLOOD ORDERABLES Final Res ult Performing Organization Address [facility] Co de Phone Number [facility] [address] [place] [address] [phone] * (ABNORMAL) C-reactive Protein (08/29/2023 10:54 AM EST) C Reactive Protein 0.59(H) < or = 0.50 mg/dL [facility] Blood Venous blood specimen / Unknown 08/29/2023 10:54 AM EST 08/29/2023 10:54 AM EST Rosalind Cardoso LAUNDRY ROUTEMAN LAB BLOOD ORDERABLES Final Res ult [facility] [address] [place] [phone] documented in this encounter Visit Diagnoses Diagnosis Type 2 diabetes mellitus with stage 3 chronic kidney disease, with long-term current use of insulin, unspecified whether stage 3a or 3b CKD (CMS/HCC)- Primary Myalgia Unspecified myalgia and myositis documented in this encounter Additional Health Concerns Assessment Noted Time PHQ-9 Depression Total Score: 0 12/26/19 23 1:09 PM EDT documented as of this encounter Care Teams Baton Twirler Relationship Specialty Start Date End Date Rosalind Cardoso FNP [address] [place] [address] PCP - General Family Medicine 04/28/21 documented as of this encounter
--- OUTSIDE RECORDS SUMMARY | 2024-08-04 10:23 | XMS_ITS | Encounter Summary ---
Author Organization [employer] Address [address] [facility] 7t [place] [address] Care Team Providers Care Overhead Irrigator Name Role Phone Rosalind Cardoso Primary Care Provider [phone] Encounter Details Date Type Department Care Team ([facility] st Contact Info) Description 10/29/2023 Telephone [facility] MEDICINE [address] [place] [address] Rosalind Cardoso FNP [address] [place] [address] Social History Tobacco Use Types Packs/Day Years [...] [facility] [address] [place] [address] Rosalind Cardoso FNP [address] [place] [address] documented as of this encounter Visit Diagnoses Not on filedocumented in this encounter Additional Health Concerns Assessment Noted Time PHQ-9 Depression Total Score: 0 12/26/19 23 1:09 PM EDT documented as of this encounter Care Teams Overhead Irrigator Relationship Specialty Start Date End Date Rosalind Cardoso FNP [address] [place] [address] PCP - General Family Medicine 04/28/21 documented as of this encounter
--- OUTSIDE RECORDS SUMMARY | 2024-08-04 10:23 | XMS_ITS | Encounter Summary ---
Author Organization [employer] Address [address] [place] [address] [address] [place] [address] Care Team Providers Care Marine Plumber Name Role Phone Rosalind Cardoso Primary Care Provider [phone] Reason for Visit * Reason Onset Date Comments FYI 09/10/2022 Encounter Details Date Type Department Care Team ([facility] st Contact Info) Description 09/10/2022 Telephone [facility] MEDICINE [address] [place] [address] Rosalind Cardoso FNP [address] [place] [address] FYI Social History Tobacco Use Types Packs/Day Years [...] encounter Miscellaneous Notes * Telephone Encounter - Franc Talley - 09/10/2022 4:30 PM EST Tc from Nae with [facility], Informing provider that pt started her PT, and harsh be seeing her 2 times a week. If any question please contact Nae at [phone] documented in this encounter Plan of Treatment Upcoming Encounters Date Type Department Care Team (Late st Contact Info) Description 09/04/2024 10:00 AM EST Office Visit [facility] MED & PEDS [address] [place] [address] Rosalind Cardoso FNP [address] [place] [address] documented as of this encounter Visit Diagnoses Not on filedocumented in this encounter Care Teams Marine Plumber Relationship Specialty Start Date End Date Rosalind Cardoso FNP [address] [place] [address] PCP - General Family Medicine 04/28/21 documented as of this encounter
--- OUTSIDE RECORDS SUMMARY | 2024-08-04 10:23 | XMS_ITS | Encounter Summary ---
Author Organization [employer] Address [address] [facility] 7[address] [place] [address] Care Team Providers Care M48 M60 Armor Crewman Name Role Phone Rosalind Cardoso Primary Care Provider [phone] Reason for Visit * Reason Onset Date Comments Referral 10/10/2023 Encounter Details Date Type Department Care Team ([facility] st Contact Info) Description 10/10/2023 Telephone [facility] MEDICINE [address] [place] [address] Rosalind Cardoso FNP [address] [place] [address] Referral Social History Tobacco Use Types Packs/Day [...] Telephone Encounter - Tiffanie Marquez RN - 10/15/2023 2:11 PM EDT TC X1 to pt regarding message below. LVM to return call to nurses. * Telephone Encounter - TAMY Ram - 10/14/2023 1:47 PM EDT Please call pt to clarify exactly which referral/documentation she is in need of. Referral? DME? Let me know and I will place if possible. Thank you ! * Telephone Encounter - Bahman Hutchinson - 10/10/2023 3:41 PM EDT Tc from pt has is getting new prosthetic some time this week and states has a referral for an arm specialist but needs a referral for her prosthetic. If any questions you can contact pt at [phone]. documented in this encounter Plan of Treatment Upcoming Encounters Date Type Department Care Team ([facility] st Contact Info) Description 09/04/2024 10:00 AM EST Office Visit [facility] MED & PEDS [address] [place] [address] Rosalind Cardoso FNP [address] [place] [address] documented as of this encounter Visit Diagnoses Not on filedocumented in this encounter Additional Health Concerns Assessment Noted Time PHQ-9 Depression Total Score: 0 12/26/19 23 1:09 PM EDT documented as of this encounter Care Teams M48 M60 Armor Crewman Relationship Specialty Start Date End Date Rosalind Cardoso FNP [address] [place] [address] PCP - General Family Medicine 04/28/21 documented as of this encounter
--- OUTSIDE RECORDS SUMMARY | 2024-08-04 10:23 | XMS_ITS | Encounter Summary ---
Author Organization [employer] Address [address] [place] [address] 7 [place] [address] Care Team Providers Care Registered Physical Therapist Name Role Phone Rosalind Cardoso Primary Care Provider [phone] Reason for Visit * Reason Onset Date Comments Durable Medical Equipment 09/14/2022 Encounter Details Date Type Department Care Team (Late st Contact Info) Description 09/14/2022 Telephone [facility] MEDICINE [address] [place] [address] Rosalind Cardoso FNP [address] [place] [address] Durable Medical Equipment Social History Tobacco Use [...] * Telephone Encounter - Ina Lobo - 09/14/2022 1:44 PM EST Scripts generated for signature and will be emailed to care director Leonard for processing * Telephone Encounter - Franc Talley - 09/14/2022 11:52 AM EST Tc from pt requesting a call back, pt claims that the visiting care takers advised that patient needs a thick cushion for her wheel chair and a New walker with two wheels because the other walker is to fast for the pt. If any questions please contact pt at [phone] documented in this encounter Plan of Treatment Upcoming Encounters Date Type Department Care Team (Late st Contact Info) Description 09/04/2024 10:00 AM EST Office Visit [facility] MED & PEDS [address] [place] [address] Rosalind Cardoso FNP [address] [place] [address] documented as of this encounter Visit Diagnoses Not on filedocumented in this encounter Care Teams Registered Physical Therapist Relationship Specialty Start Date End Date Rosalind Cardoso FNP [address] [place] [address] PCP - General Family Medicine 04/28/21 documented as of this encounter
--- OUTSIDE RECORDS SUMMARY | 2024-08-04 10:23 | XMS_ITS | Encounter Summary ---
Author Organization [employer] Address [address] [facility] [address] [place] [address] Care Team Providers Care Hatchery Laborer Name Role Phone Rosalind Cardoso Primary Care Provider [phone] Reason for Visit * Reason Onset Date Comments Results 10/25/2023 Encounter Details Date Type Department Care Team ([facility] st Contact Info) Description 10/25/2023 Telephone [facility] MEDICINE [address] [place] [address] Rosalind Cardoso FNP [address] [place] [address] Results Social History Tobacco Use Types Packs/Day [...] Telephone Encounter - Tiffanie Marquez RN - 10/30/2023 9:26 AM EDT Placed call to pt and informed of lab results. Pt verbalized understanding and agrees with plan. * Telephone Encounter - TAMY Ram - 10/30/2023 8:52 AM EDT H/H 9.5/32.4. Inflammatory markers have elevated compared to last checked, as well as some of proteins associated with liver inflammation. Magnesium WNL. Please triage for any symptoms. Thank you! * Telephone Encounter - Arabella Rosa RN - 10/28/2023 9:10 AM EDT See message below. RN will forward to ordering provider PCP Rosalind MORELOS to review and advise [facility] team nurses. TC from pt requesting call back regarding Results. Type of results: Labs Date when done: 10/24 Facility: [facility] Labs * Telephone Encounter - Bahman Hutchinson - 10/25/2023 3:16 PM EDT TC from pt requesting call back regarding Results. Type of results: Labs Date when done: 10/24 Facility: [facility] Labs documented in this encounter Plan of Treatment Upcoming Encounters Date Type Department Care Team (Late st Contact Info) Description 09/04/2024 10:00 AM EST Office Visit [facility] MED & PEDS [address] [place] [address] Rosalind Cardoso FNP [address] [place] [address] documented as of this encounter Visit Diagnoses Not on filedocumented in this encounter Additional Health Concerns Assessment Noted Time PHQ-9 Depression Total Score: 0 12/26/19 23 1:09 PM EDT documented as of this encounter Care Teams Hatchery Laborer Relationship Specialty Start Date End Date Rosalind Cardoso FNP [address] [place] [phone] PCP - General Family Medicine 04/28/21 documented as of this encounter
--- OUTSIDE RECORDS SUMMARY | 2024-08-04 10:23 | XMS_ITS | Encounter Summary ---
Author Organization [employer] Address [address] [facility] 7t [place] [address] Care Team Providers Care Truck Supervisor Name Role Phone Rosalind Cardoso Primary Care Provider [phone] Reason for Visit * Reason Onset Date Comments Medication Question 10/22/2023 Encounter Details Date Type Department Care Team ([facility] st Contact Info) Description 10/22/2023 Telephone [facility] MEDICINE [address] [place] [address] Rosalind Cardoso FNP [address] [place] [address] Medication Question Social History Tobacco Use Types Packs/Day Years [...] encounter Miscellaneous Notes * Telephone Encounter - Mario Diamond - 10/22/2023 11:32 AM EDT Tc from patient calling to request some medications states has received a call with the results forthe chest x-rays and was told has pneumonia documented in this encounter Plan of Treatment Upcoming Encounters Date Type Department Care Team (Late st Contact Info) Description 09/04/2024 10:00 AM EST Office Visit [facility] MED & PEDS [address] [place] [address] Rosalind Cardoso FNP [address] [place] [address] documented as of this encounter Visit Diagnoses Not on filedocumented in this encounter Additional Health Concerns Assessment Noted Time PHQ-9 Depression Total Score: 0 12/26/19 23 1:09 PM EDT documented as of this encounter Care Teams Truck Supervisor Relationship Specialty Start Date End Date Rosalind Cardoso FNP [address] [place] [address] PCP - General Family Medicine 04/28/21 documented as of this encounter
--- OUTSIDE RECORDS SUMMARY | 2024-08-04 10:23 | XMS_ITS | Encounter Summary ---
Author Organization [employer] Address [address] [facility] 7t [place] [address] Care Team Providers Care Telehealth Case Manager Name Role Phone Rosalind Cardoso Primary Care Provider [phone] Encounter Details Date Type Department Care Team (Late st Contact Info) Description 09/20/2023 Orders Only [facility] MEDICINE [address] [place] [address] Rosalind Cardoso FNP [address] [place] [address] Type 2 diabetes mellitus with stage 3 [...] 10:00 AM EST Office Visit [facility] MED & PEDS [address] [place] [address] Rosalind Cardoso FNP [address] [place] [address] documented as of this encounter Procedures Procedure Name Priority Date/Time Associated Diagnosis Comments CBC WITH AUTO DIFFERENTIAL Routine 09/27/2023 9:56 AM EDT Type 2 diabetes mellitus with stage 3 chronic kidney disease, with long-term current use of insulin, unspecified whether stage 3a or 3b CKD ([facility]/HCC) Myalgia SED RATE BY MODIFIED WESTERGREN Routine 09/27/2023 9:56 AM EDT Type 2 diabetes mellitus with stage 3 chronic kidney disease, with long-term current use of insulin, unspecified whether stage 3a or 3b CKD (CMS/HCC) Myalgia PROTHROMBIN TIME-INR Routine 09/27/2023 9:56 AM EDT Type 2 diabetes mellitus with stage 3 chronic kidney disease, with long-term current use of insulin, unspecified whether stage 3a or 3b CKD (CMS/HCC) Myalgia C-REACTIVE PROTEIN Routine 09/27/2023 9: 56 AM EDT Type 2 diabetes mellitus with stage 3 chronic kidney disease, with long-term current use of insulin, unspecified whether stage 3a or 3b CKD ([facility]) Myalgia MAGNESIUM Routine 09/27/2023 9:56 AM EDT Type 2 diabetes mellitus with stage 3 chronic kidney disease, with long-term current use of insulin, unspecified whether stage 3a or 3b CKD ([facility]) Myalgia COMPREHENSIVE METABOLIC PANEL Routine 09/27/2023 9:56 AM EDT Type 2 diabetes mellitus with stage 3 chronic kidney disease, with long-term current use of insulin, unspecified whether stage 3a or 3b CKD ([facility]) Myalgia documented in this encounter Results * (ABNORMAL) Sed Rate by Modified [place] (09/27/2023 9:56 AM EDT) Erythrocyte Sedimentation Rate 42(H) 0 - 20 MM/HR [facility] Comment:Patients with polycy themia and many hemoglobin abnormalitiesmay have depressed sed rates whereas patients with anemiamay have elevated sed rates. Blood Venous blood specimen / Unknown 09/27/2023 9:56 AM EDT 09/27/2023 9:58 AM EDT Rosalind Cardoso [facility] LAB BLOOD ORDERABLES Final Res ult Performing Organization Address [facility] Co de Phone Number [facility] [address] [place] [address] [phone] * (ABNORMAL) C-reactive Protein (09/27/2023 9:56 AM EDT) Pathologist [facility] C Reactive Protein 0.63(H) < or = 0.50 mg/dL [facility] Blood Venous blood specimen / Unknown 09/27/2023 9:56 AM EDT 09/27/2023 9:58 AM EDT Rosalind Cardoso STRATEGIC MARKETING MANAGER LAB BLOOD ORDERABLES Final Res ult [facility] [address] [place] [address] [phone] * Magnesium (09/27/2023 9:56 AM EDT) Magnesium 1.7 1.6 - 2.6 mg/dL [facility] Blood Venous blood specimen / Unknown 09/27/2023 9:56 AM EDT 09/27/2023 9:58 AM EDT Rosalind Cardoso [facility] LAB BLOOD ORDERABLES Final Res ult Performing Organization Address [facility]/ZIP Co de Phone Number [facility] [address] [place] [phone] * Prothrombin Time-INR (09/27/2023 9:56 AM EDT) Pathologist [facility] Prothrombin Time 11.5 11.1 - 13.3 SEC [facility] INTERNATIONAL NORM RATIO 0.9 0.9 - 1.1 [facility] Comment:INTERNATIONAL NORMAL IZED RATIO (INR) [...] EDT 09/27/2023 9:58 AM EDT Rosalind Cardoso [facility] LAB BLOOD ORDERABLES Final Res ult Performing Organization Address [facility]/ZIP Co de Phone Number [facility] [address] [place] [address] [phone] * (ABNORMAL) Comprehensive Metabolic Panel (09/27/2023 9:56 AM EDT) Pathologist [facility] Sodium 140 135 - 145 mmol/L [facility] Potassium 3.8 3.3 - 5.1 mmol/L [facility] Chloride 105 96 - 108 mmol/L [facility] Carbon Dioxide 27 22 - 29 mmol/L [facility] Anion Gap 12 12 - 20 [facility] Urea Nitrogen (BUN) 36(H) 9 - 16 mg/dL [facility] Creatinine, Serum 1.55(H) 0.5 - 1.4 mg/dL [facility] Estimated Glomerular Filt Rate 34 [facility] Comment:NOTE: For -Am erican individuals, multiply the result by 1.210.Chronic Kidney Disease: Estimated GFR < 60 mL/min/1.97o9Defmpn Kidney Disease: Estimated GFR < 15 mL/min/1.73m2 Glucose 191(H) 60 - 115 mg/dL [facility] Calcium 9.2 8.4 - 10.2 mg/dL [facility] Bilirubin, Total 0.3 0.0 - 1.0 mg/dL [facility] Aspartate Amino Transferase 22 5 - 31 U/L [facility] Alanine Aminotransferase 35(H) 0 - 31 U/L [facility] Total Protein 6.3(L) 6.5 - 8.0 g/dL [facility] Albumin Level 3.2(L) 3.5 - 5.0 g/dL [facility] Alkaline Phosphatase 125(H) 39 - 117 U/L [facility] Blood Venous blood specimen / Unknown 09/27/2023 9:56 AM EDT 09/27/2023 9:58 AM EDT us Rosalind Cardoso STRATEGIC MARKETING MANAGER LAB BLOOD ORDERABLES Final Res ult [facility] [address] [place] [address] [phone] * (ABNORMAL) CBC auto differential (09/27/2023 9:56 AM EDT) White Blood Count 8.6 4.8 - 10.8 X10*3/uL [facility] Red Blood Count 4.52 4.20 - 5.50 X10*6/uL [facility] Hemoglobin 8.8(L) 12.0 - 16.0 g/dl [facility] Hematocrit 29.9(L) 37.0 - 47.0 % [facility] Mean Corpuscular Volume 66.2(L) 80.0 - 98.0 fL [facility] Mean Corpuscular Hemoglobin 19.5(L) 27.0 - 33.0 pg [facility] Mean Corpuscular HGB Conc 29.4(L) 31.0 - 35.0 g/dl [facility] Red Cell Distribution Width 18.4(H) 11.0 - 16.0 % [facility] Platelet Count 370 160 - 400 X10*3/uL [facility] Mean Platelet Volume 10.5 9.4 - 12.3 fL [facility] Neutrophils Percent Auto 66.9 45 - 73 % [facility] Imm Gran Pct Auto 0.6(H) 0.0 - 0.4 % [facility] Lymphocytes Percent Auto 21.8 20 - 40 % [facility] Monocytes Percent Auto 7.0 2 - 11 % [facility] Eosinophils Percent Auto 3.0 0 - 4 % [facility] Basophils Percent Auto 0.7 0 - 2 % [facility] NRBC Pct Auto 0.0 0.0 - 0.2 /100WBC [facility] Neutrophils Absolute Auto 5.7 2.0 - 8.3 x10*3/uL [facility] Imm Gran Abs Auto 0.05(H) 0.00 - 0.03 X10*3/uL [facility] Lymphocytes Absolute Auto 1.9 1.2 - 4.9 X10*3/uL [facility] Monocytes Absolute Auto 0.6 0.1 - 1.2 X10*3/uL [facility] Eosinophils Absolute Auto 0.3 0.0 - 0.4 X10*3/uL [facility] Basophils Absolute Auto 0.1 0.0 - 0.2 X10*3/uL [facility] NRBC Abs Auto 0.000 0.0 - 0.012 X10*3/uL [facility] Blood Venous blood specimen / Unknown 09/27/2023 9:56 AM EDT 09/27/2023 9:58 AM EDT us Rosalind MORELOS LAB BLOOD ORDERABLES Final Res ult [facility] [address] [place] [phone] [phone] documented in this encounter Visit Diagnoses [...] documented as of this encounter Care Teams Telehealth Case Manager Relationship Specialty Start Date End Date Rosalind Cardoso FNP [address] [place] [phone] PCP - General Family Medicine 04/28/21 documented as of this encounter
--- OUTSIDE RECORDS SUMMARY | 2024-08-04 10:23 | XMS_ITS | Encounter Summary ---
Author Organization [employer] Address [address] [facility] [address]t [place] [address] Care Team Providers Care Event Sales Assistant Name Role Phone Rosalind Cardoso Primary Care Provider [phone] Encounter Details Date Type Department Care Team (Late st Contact Info) Description 10/04/2023 Orders Only [facility] MEDICINE [address] [place] [address] Rosalind Cardoso FNP [address] [place] [address] Type 2 diabetes mellitus with stage 3 [...] Description 09/04/2024 10:00 AM EST Office Visit [facility] MED & PEDS [address] [place], [place] [phone] Rosalind Cardoso FNP [address] [place] [address] documented as of this encounter Procedures Procedure Name Priority Date/Time Associated Diagnosis Comments SED RATE BY MODIFIED WESTERGREN Routine 10/25/2023 1:09 PM EDT Type 2 diabetes mellitus with stage 3 chronic kidney disease, with long-term current use of insulin, unspecified whether stage 3a or 3b CKD ([facility]) Myalgia PROTHROMBIN TIME-INR Routine 10/25/2023 1:09 PM EDT Type 2 diabetes mellitus with stage 3 chronic kidney disease, with long-term current use of insulin, unspecified whether stage 3a or 3b CKD ([facility]/HCC) Myalgia documented in this encounter Results * (ABNORMAL) Sed Rate by Modified [place] (10/25/2023 1:09 PM EDT) Erythrocyte Sedimentation Rate 46(H) 0 - 20 MM/HR [facility] Comment:Patients with polycy themia and many hemoglobin abnormalitiesmay have depressed sed rates whereas patients with anemiamay have elevated sed rates. Blood Venous blood specimen / Unknown 10/25/2023 1:09 PM EDT 10/25/2023 1:09 PM EDT Rosalind Cardoso METABOLIC SPECIALIST LAB BLOOD ORDERABLES Final Res ult Performing Organization Address [facility]/ZIP Co de Phone Number [facility] [address] [place] [address] [phone] * Prothrombin Time-INR (10/25/2023 1:09 PM EDT) Prothrombin Time 12.3 11.1 - 13.3 SEC [facility] INTERNATIONAL NORM RATIO 1.0 0.9 - 1.1 [facility] Comment:INTERNATIONAL NORMAL IZED RATIO (INR) [...] EDT 10/25/2023 1:09 PM EDT Rosalind Cardoso METABOLIC SPECIALIST LAB BLOOD ORDERABLES Final Res ult Performing Organization Address [facility] Co de Phone Number [facility] [address] [place] [address] [phone] documented in this encounter Visit Diagnoses [...] documented as of this encounter Care Teams Event Sales Assistant Relationship Specialty Start Date End Date Rosalind Cardoso FNP [address] [place] [address] PCP - General Family Medicine 04/28/21 documented as of this encounter
--- OUTSIDE RECORDS SUMMARY | 2024-08-04 10:23 | XMS_ITS | Encounter Summary ---
Author Organization [employer] Address [address] [facility] 7t [place] [address] Care Team Providers Care Multimedia Services Coordinator Name Role Phone Rosalind Cardoso Primary Care Provider [phone] Encounter Details Date Type Department Care Team (Late st Contact Info) Description 10/18/2023 Orders Only [facility] MEDICINE [address] [place] [address] Rosalind Cardoso FNP [address] [place] [address] Type 2 diabetes mellitus with stage 3 [...] [facility] MED & PEDS [address] [place] [address] Rosalind Cardoso FNP [address] [place] [address] documented as of this encounter Procedures Procedure Name Priority Date/Time Associated Diagnosis Comments CBC WITH AUTO DIFFERENTIAL Routine 10/25/2023 1:09 PM EDT Type 2 diabetes mellitus with stage 3 chronic kidney disease, with long-term current use of insulin, unspecified whether stage 3a or 3b CKD (CMS/HCC) Myalgia C-REACTIVE PROTEIN Routine 10/25/2023 1: 09 PM EDT Type 2 diabetes mellitus with stage 3 chronic kidney disease, with long-term current use of insulin, unspecified whether stage 3a or 3b CKD (CMS/HCC) Myalgia MAGNESIUM Routine 10/25/2023 1:09 PM EDT Type 2 diabetes mellitus with stage 3 chronic kidney disease, with long-term current use of insulin, unspecified whether stage 3a or 3b CKD (CMS/HCC) Myalgia COMPREHENSIVE METABOLIC PANEL Routine 10/25/2023 1:09 PM EDT Type 2 diabetes mellitus with stage 3 chronic kidney disease, with long-term current use of insulin, unspecified whether stage 3a or 3b CKD (CMS/HCC) Myalgia documented in this encounter Results * (ABNORMAL) C-reactive Protein (10/25/2023 1:09 PM EDT) [facility] C Reactive Protein 1.49(H) < or = 0.50 mg/dL [facility] Blood Venous blood specimen / Unknown 10/25/2023 1:09 PM EDT 10/25/2023 1:09 PM EDT Rosalind Cardoso DATA WAREHOUSE CONSULTANT LAB BLOOD ORDERABLES Final Res ult Performing Organization Address [facility]/ZIP Co de Phone Number [facility] [address] [place] [phone] * Magnesium (10/25/2023 1:09 PM EDT) [facility] Magnesium 2.1 1.6 - 2.6 mg/dL [facility] Blood Venous blood specimen / Unknown 10/25/2023 1:09 PM EDT 10/25/2023 1:09 PM EDT Rosalind Cardoso DATA WAREHOUSE CONSULTANT LAB BLOOD ORDERABLES Final Res ult Performing Organization Address [facility]/ZIP Co de Phone Number [facility] [address] [place] [phone] * (ABNORMAL) Comprehensive Metabolic Panel (10/25/2023 1:09 PM EDT) [facility] Sodium 143 135 - 145 mmol/L [facility] Potassium 4.1 3.3 - 5.1 mmol/L [facility] Chloride 104 96 - 108 mmol/L [facility] Carbon Dioxide 31(H) 22 - 29 mmol/L [facility] Anion Gap 12 12 - 20 [facility] Urea Nitrogen (BUN) 27(H) 9 - 16 mg/dL [facility] Creatinine, Serum 1.20 0.5 - 1.4 mg/dL [facility] Estimated Glomerular Filt Rate 46 [facility] Comment:NOTE: For -Am erican individuals, multiply the result by 1.210.Chronic Kidney Disease: Estimated GFR < 60 mL/min/1.47a3[place] Kidney Disease: Estimated GFR < 15 mL/min/1.73m2 Glucose 223(H) 60 - 115 mg/dL [facility] Calcium 9.4 8.4 - 10.2 mg/dL [facility] Bilirubin, Total 0.3 0.0 - 1.0 mg/dL [facility] Aspartate Amino Transferase 20 5 - 31 U/L [facility] Alanine Aminotransferase 34(H) 0 - 31 U/L [facility] Total Protein 6.6 6.5 - 8.0 g/dL [facility] Albumin Level 3.2(L) 3.5 - 5.0 g/dL [facility] Alkaline Phosphatase 166(H) 39 - 117 U/L [facility] Blood Venous blood specimen / Unknown 10/25/2023 1:09 PM EDT 10/25/2023 1:09 PM EDT us Rosalind Cardoso [facility] LAB BLOOD ORDERABLES Final Res ult [facility] [address] [place] [phone] * (ABNORMAL) CBC auto differential (10/25/2023 1:09 PM EDT) White Blood Count 9.0 4.8 - 10.8 X10*3/uL [facility] Red Blood Count 4.91 4.20 - 5.50 X10*6/uL [facility] Hemoglobin 9.5(L) 12.0 - 16.0 g/dl [facility] Hematocrit 32.4(L) 37.0 - 47.0 % [facility] Mean Corpuscular Volume 66.0(L) 80.0 - 98.0 fL [facility] Mean Corpuscular Hemoglobin 19.3(L) 27.0 - 33.0 pg [facility] Mean Corpuscular HGB Conc 29.3(L) 31.0 - 35.0 g/dl [facility] Red Cell Distribution Width 17.2(H) 11.0 - 16.0 % [facility] Platelet Count 442(H) 160 - 400 X10*3/uL [facility] Mean Platelet Volume 11.3 9.4 - 12.3 fL [facility] Neutrophils Percent Auto 60.9 45 - 73 % [facility] Imm Gran Pct Auto 0.4 0.0 - 0.4 % [facility] Lymphocytes Percent Auto 25.2 20 - 40 % [facility] Monocytes Percent Auto 8.7 2 - 11 % [facility] Eosinophils Percent Auto 4.1(H) 0 - 4 % [facility] Basophils Percent Auto 0.7 0 - 2 % [facility] NRBC Pct Auto 0.0 0.0 - 0.2 /100WBC [facility] Neutrophils Absolute Auto 5.5 2.0 - 8.3 x10*3/uL [facility] Imm Gran Abs Auto 0.04(H) 0.00 - 0.03 X10*3/uL [facility] Lymphocytes Absolute Auto 2.3 1.2 - 4.9 X10*3/uL [facility] Monocytes Absolute Auto 0.8 0.1 - 1.2 X10*3/uL [facility] Eosinophils Absolute Auto 0.4 0.0 - 0.4 X10*3/uL [facility] Basophils Absolute Auto 0.1 0.0 - 0.2 X10*3/uL [facility] NRBC Abs Auto 0.000 0.0 - 0.012 X10*3/uL [facility] Blood Venous blood specimen / Unknown 10/25/2023 1:09 PM EDT 10/25/2023 1:09 PM EDT us Rosalind Cardoso DATA WAREHOUSE CONSULTANT LAB BLOOD ORDERABLES Final Res ult [facility] [address] [place] [address] [phone] documented in this encounter Visit Diagnoses [...] documented as of this encounter Care Teams Multimedia Services Coordinator Relationship Specialty Start Date End Date Rosalind Cardoso FNP [address] [place] [address] PCP - General Family Medicine 04/28/21 documented as of this encounter
--- OUTSIDE RECORDS SUMMARY | 2024-08-04 10:23 | XMS_ITS | Encounter Summary ---
Author Organization [employer] Address [address] [facility] 7t [place] [address] Care Team Providers Care Credit Professional Name Role Phone Rosalind Cardoso Primary Care Provider [phone] Encounter Details Date Type Department Care Team ([facility] st Contact Info) Description 09/18/2023 Telephone [facility] MEDICINE [address] [place] [address] Rosalind Cadroso FNP [address] [place] [address] Social History Tobacco Use Types Packs/Day Years [...] encounter Miscellaneous Notes * Telephone Encounter - Bahman Jasper - 09/18/2023 2:59 PM EDT Tc from pt stated she received a call for for televisit with pcp, chief writer didn't see anything tasked. Please contact pt at [phone]. documented in this encounter Plan of Treatment Upcoming Encounters Date Type Department Care Team (Late st Contact Info) Description 09/04/2024 10:00 AM EST Office Visit [facility] MED & PEDS [address] [place] [address] Rosalind Cardoso FNP [address] [place] [address] documented as of this encounter Visit Diagnoses Not on filedocumented in this encounter Additional Health Concerns Assessment Noted Time PHQ-9 Depression Total Score: 0 12/26/19 23 1:09 PM EDT documented as of this encounter Care Teams Credit Professional Relationship Specialty Start Date End Date Rosalind Cardoso FNP [address] [place] [address] PCP - General Family Medicine 04/28/21 documented as of this encounter
--- OUTSIDE RECORDS SUMMARY | 2024-08-04 10:23 | XMS_ITS | Encounter Summary ---
Author Organization [employer] Address [address] [facility] 7t [place] [address] Care Team Providers Care Health Psychologist Name Role Phone Rosalind Cardoso Primary Care Provider [phone] Reason for Visit * Reason Onset Date Comments medication request 10/22/2023 Encounter Details Date Type Department Care Team ([facility] st Contact Info) Description 10/22/2023 Telephone [facility] MEDICINE [address] [place] [address] Rosalind Cardoso FNP [address] [place] [address] medication request Social History Tobacco Use Types Packs/Day Years [...] encounter Miscellaneous Notes * Telephone Encounter - Mira Danielle RN - 10/22/2023 2:39 PM EDT Chart Update- discussed results with PCP- no pneumonia seen on CXR- no need for medication. Fluid seen is d/t CHF. Pt made aware and to follow up with cardio and nephro to manage this CHF. Pt verbalized understanding and agrees to plan. * Telephone Encounter - Rosie Whitt - 10/22/2023 8:10 AM EDT Tc from pt requesting medication for pneumonia stated Pain Management from [facility] call her to advise of dx documented in this encounter Plan of Treatment Upcoming Encounters Date Type Department Care Team (Late st Contact Info) Description 09/04/2024 10:00 AM EST Office Visit [facility] MED & PEDS [address] [place] [address] Rosalind Cardoso FNP [address] [place] [address] documented as of this encounter Visit Diagnoses Not on filedocumented in this encounter Additional Health Concerns Assessment Noted Time PHQ-9 Depression Total Score: 0 12/26/19 23 1:09 PM EDT documented as of this encounter Care Teams Health Psychologist Relationship Specialty Start Date End Date Rosalind Cardoso FNP [address] [place] [address] PCP - General Family Medicine 04/28/21 documented as of this encounter
--- OUTSIDE RECORDS SUMMARY | 2024-08-04 10:23 | XMS_ITS | Encounter Summary ---
Author Organization [employer] Address [address] [facility] [address]t [place] [address] Care Team Providers Care Production Hand Name Role Phone Rosalind Cardoso Primary Care Provider [phone] Reason for Visit * Reason Onset Date Comments Results 10/29/2023 Encounter Details Date Type Department Care Team ([facility] st Contact Info) Description 10/29/2023 Telephone [facility] MEDICINE [address] [place] [address] Rosalind Cardoso FNP [address] [place] [address] Results Social History Tobacco Use Types Packs/Day [...] encounter Miscellaneous Notes * Telephone Encounter - Rosie Whitt - 10/29/2023 2:15 PM EDT Tc from pt requesting a call back in regards lab result from 10/10, 10/17 and 10/24 documented in this encounter Plan of Treatment Upcoming Encounters Date Type Department Care Team (Late st Contact Info) Description 09/04/2024 10:00 AM EST Office Visit [facility] MED & PEDS [address] [place] [address] Rosalind Cardoso FNP [address] [place] [address] documented as of this encounter Visit Diagnoses Not on filedocumented in this encounter Additional Health Concerns Assessment Noted Time PHQ-9 Depression Total Score: 0 12/26/19 1:09 PM EDT documented as of this encounter Care Teams Production Hand Relationship Specialty Start Date End Date Rosalind Cardoso FNP [address] [place] [address] PCP - General Family Medicine 04/28/21 documented as of this encounter
[2024-08-04 10:24] LABS: Basophils Absolute Auto 0.1 X10*3/uL (0.0-0.2); Basophils Percent Auto 0.5 % (0-2); Eosinophils Absolute Auto 0.2 X10*3/uL (0.0-0.4); Eosinophils Percent Auto 2.5 % (0-4); Hematocrit 33.5 % (37.0-47.0); Hemoglobin 10.3 g/dl (12.0-16.0); Imm Gran Abs Auto 0.04 X10*3/uL (0.00-0.03); Imm Gran Pct Auto 0.4 % (0.0-0.4); Lymphocytes Absolute Auto 2.1 X10*3/uL (1.2-4.9); Lymphocytes Percent Auto 21.4 % (20-40); Mean Corpuscular HGB Conc 30.7 g/dl (31.0-35.0); Mean Corpuscular Hemoglobin 18.8 pg (27.0-33.0); Mean Platelet Volume 10.1 fL (9.4-12.3); Monocytes Absolute Auto 0.7 X10*3/uL (0.1-1.2); Monocytes Percent Auto 7.1 % (2-11); Neutrophils Absolute Auto 6.6 x10*3/uL (2.0-8.3); Neutrophils Percent Auto 68.1 % (45-73); Platelet Count 346 X10*3/uL (160-400); Red Blood Count 5.48 X10*6/uL (4.20-5.50); Red Cell Distribution Width 16.4 % (11.0-16.0); White Blood Count 9.7 X10*3/uL (4.8-10.8)
[2024-08-04 10:25] LABS: Mean Corpuscular Volume 61.1 fL (80.0-98.0)
[2024-08-04 10:59] LABS: INTERNATIONAL NORM RATIO 0.9 (0.9-1.1); Prothrombin Time 10.9 SEC (10.9-12.4)
[2024-08-04 11:41] LABS: Erythrocyte Sedimentation Rate 50 MM/HR (0-20)
[2024-08-04 11:57] LABS: Alanine Aminotransferase < 6 U/L (0-31); Albumin Level 3.6 g/dL (3.5-5.0); Alkaline Phosphatase 101 U/L (39-117); Anion Gap 11 (12-20); Aspartate Amino Transferase 16 U/L (5-31); Bilirubin Total 0.2 mg/dL (0.0-1.0); Blood Urea Nitrogen 50 mg/dL (9-16); C Reactive Protein 0.52 mg/dL (< or = 0.50); Calcium 9.1 mg/dL (8.4-10.2); Carbon Dioxide 27 mmol/L (22-29); Chloride 100 mmol/L (96-108); Estimated Glomerular Filt Rate 34; Glucose Random 265 mg/dL (60-115); Magnesium 2.3 mg/dL (1.6-2.6); Potassium 4.1 mmol/L (3.3-5.1); Sodium 134 mmol/L (135-145); Total Protein 7.6 g/dL (6.5-8.0)
== END 2024-08-04 09:43 | disposition home or self-care (01) ==
LOC: HO.LAB 09:42
PROVIDERS: Absent Provider Nurse Practitioner Family; PCP Registered Nurse; Referring Provider Internal Medicine Medical Oncology; Visit Provider Registered Nurse
DX: E11.22 Type 2 diabetes mellitus with diabetic chronic kidney disease (principal); D64.9 Anemia, unspecified; N18.30 Chronic kidney disease, stage 3 unspecified; Z79.4 Long term (current) use of insulin; M79.10 Myalgia, unspecified site; I10 Essential (primary) hypertension; N18.32 Chronic kidney disease, stage 3b; Z89.512 Acquired absence of left leg below knee
CPT/HCPCS: 36415; 80053; 83735; 85025; 85610; 85652; 86140; 86850; 86900; 86901

== ENCOUNTER 2024-10-02 14:10 | Outpatient (AMB) | payer OTHER, SELFPAY ==
--- NOTE | 2024-10-02 14:11 | A.OFFVIS_ITS ---
Vital Signs 10/02/24 14:12 Height 5 ft BMI Reason not done Patient refused/unable BP 136/56 L Blood Pressure Location Rt brachial Pulse 80 Pulse Source Pulse Oximeter Intake Visit Reasons: f/u Choral Director Required: No Accompanied by: Daughter Allergies No Known Allergies Allergy (Verified 06/23/24 10:43) Medication List - Last Reconciled 10/02/24 by Madeline Yo SECURITY PUBLIC SAFETY OFFICER-C amlodipine 5 mg PO DAILY aspirin 81 mg PO DAILY atorvastatin 80 mg PO BEDTIME blood sugar diagnostic (FreeStyle Lite Strips) As directed cholecalciferol (vitamin D3) 1 tab PO DAILY clotrimazole 1% 1 appl topical QAM AND QHS ezetimibe 10 mg PO DAILY folic acid 1 mg PO DAILY furosemide 80 mg (2 x 40 mg) PO DAILY 90 days insulin glargine (Lantus Solostar U-100 Insulin) 40 units subcut DAILY isosorbide mononitrate ER 60 mg PO DAILY lancets (TRUEplus Lancets) As directed lidocaine 5% 1 patch topical DAILY lisinopril 10 mg PO DAILY magnesium oxide 400 mg PO TID metformin 1 tab PO BID metoprolol succinate ER 50 mg See Protocol PO DAILY pantoprazole 40 mg PO BEDTIME pen needle, diabetic (UltiCare Pen Needle) As directed pioglitazone 15 mg PO DAILY HPI HPI f/u: Details: Mitra is a 58 yo female with PMH of HTN, DM,CKD, PVD, Left BKA, chronic anemia, SVT, moderate CAD as seen on CTA of coronaries who presents for follow up. Today she reports that she has been doing well since her last visit in January. She has not had issues with edema like she had in the past. She is getting random stabbing pains under her left breast. She has no chest discomfort that is brought on by exertion. She has some mild shortness of breath with exertion. She is mostly sedentary and primarily uses a wheelchair. She says it is on comfortable to wear her prosthetic. She lives on the 4th floor and to do the stairs she has to crawl up them when the elevator is not working. No heart palpitations, lightheadedness, presyncope, syncope. Taking all meds as directed. Daughter Asya is present. [facility] Medical History Below-knee amputation of left lower extremity with complication Essential hypertension Obesity Chronic ulcer of right foot Peripheral vascular disease Anemia in chronic kidney disease (CKD) Acid reflux Osteomyelitis Leukocytosis Microcytic hypochromic anemia Irritable bowel syndrome Rectal prolapse Prolapsed uterus Carpal tunnel syndrome Peripheral neuropathy Retinopathy Osteoporosis Degenerative joint disease of spine PAD (peripheral artery disease) Toe ulcer due to DM Hypertension Arthritis Surgical History S/P below knee amputation H/O dilation and curettage Family History Maternal Grandmother Diabetes Maternal Grandfather Heart disease Cancer of unknown origin Mother HTN (hypertension) Paternal Uncle Thalassemia Social History Household Members: Children Household Members Other:: 4 Housing: Apartment Are you a primary primary health care nurse to a significant other at home: No Do you presently have visiting nurse or other home services: No Unable to assess alcohol history related to: Unknown Alcohol intake: never Comment: pt refusing red socks and bed alarm Patient Tobacco Use Status: Never used Tobacco Second Hand Smoke Exposure: No service: No Current occupational status: disabled Female Reproductive History Menstrual Age of Menarche: 8 Review of Systems Const All systems reviewed & are unremarkable except as noted in HPI and below Denies chills, Denies fatigue, Denies fever(s), Denies weight gain and Denies weight loss ENT Denies dizziness Card Details: sharp pain at times under left breast Denies chest pain, Denies leg edema, Denies lightheadedness, Denies palpitations, Denies dyspnea on exertion, Denies orthopnea and Denies other Resp Denies cough and Denies dyspnea on exertion GI Denies hematochezia and Denies change in stool character Musc Details: Left BKA. uses wheelchair Reports abnormal gait, Denies muscle weakness, Denies numbness, Denies radiating pain into limb and Denies tingling Neuro Reports abnormal gait, Denies dizziness, Denies numbness and Denies tingling Endo Denies fatigue and Denies palpitations Physical Exam Vital Signs: Last Vital Signs Pulse 80 10/02/24 14:12 BP 136/56 L 03/28/25 14:12 Const Other: sitting in wheelchair General: cooperative, healthy appearing, comfortable and no acute distress Orientation/consciousness: patient oriented x3 Neck Neck: Yes normal visual inspection and Yes no JVD Resp Effort & Inspection: normal respiratory effort Auscultation: clear to auscultation bilaterally, no crackles, no rales, no rhonchi and no wheezes Cardio Jugular venous distension: no JVD Rate: regular rate Rhythm: regular rhythm Heart sounds: S1 normal heart sound present, S2 normal heart sound present, no gallops, no murmurs and no rubs GI Inspection: Yes normal to inspection Neuro General: patient oriented x3 Extrem Other: Left BKA, No edema at present Psych Appearance: grossly normal Mental Status: mental status grossly normal Speech and movement: Normal speech and movement present Assessment & Plan Assessment & Plan (1) Chest pain: Code(s): R07.9 - Chest pain, unspecified Category: Medical Qualifiers: Chest pain type: unspecified Qualified Code(s): R07.9 - Chest pain, unspecified Plan: Reports of atypical chest discomfort. She has cardiac risk factors of hypertension, hyperlipidemia, peripheral vascular disease and diabetes. She is known to have nonobstructive coronary disease based on cardiac testing: A pharmacological nuclear stress test was done on 07/27/2022 and was equivocal for apical basal lateral ischemia. A CTA of the coronary arteries was done on 09/07/2022 showing 70% stenosis of the mid LAD between the 2nd and 3rd diagonal, RCA dominant with mid 50-60% stenosis. She as declined cardiac catheterization. Currently no clear anginal sounding symptoms. Will continue with med management. She is on triple antianginals including isosorbide, amlodipine and metoprolol. She is on aspirin, high-dose atorvastatin and Zetia. Signs and symptoms of angina reviewed with her. Emergency care if ever needed for symptoms. Cardiology follow-up 6 months, sooner if needed. (2) CAD (coronary artery disease): Comment: Moderate LAD and RCA stenosis on CTA of the coronary arteries 09/07/2022 - declined cardiac catheterization Code(s): I25.10 - Atherosclerotic heart disease of craig coronary artery without angina pectoris Category: Medical Plan: As above. Labs being drawn today. (3) Edema: Code(s): R60.9 - Edema, unspecified Category: Medical Plan: Prior issues with leg edema. She had been on higher dose amlodipine which was decreased. She also had an increase in her late. Continue Lasix. Checking BMP today. (4) SVT (supraventricular tachycardia): Code(s): I47.1 - Supraventricular tachycardia Category: Medical Plan: Episode of SVT noted during [facility] admission 05/2022. Narrow complex tachycardia with heart rate in the 170s. She was treated with adenosine with conversion back to sinus rhythm. Echocardiogram 05/14/2022 showed EF 55-60%, normal RV, atrium size is normal. Holter monitor done on 07/27/2022 for 3 days showed sinus rhythm with average heart rate 87, PACs 2.25% of the time, short SVT runs, longest 6 beats. She has been maintained on metoprolol with no symptomatic recurrent SVT. Reviewed caffeine reduction, maintain good hydration and getting adequate rest. (5) Diabetes: Code(s): E11.9 - Type 2 diabetes mellitus without complications Category: Medical Plan: Hemoglobin A1c goal less than 7. Followed by her PCP (6) Anemia: Code(s): D64.9 - Anemia, unspecified Category: Medical Plan: History of chronic anemia. Has received transfusions in the past. Follows with Oncology/Hematology. Labs done 08/04/2024 shows hematocrit 33.5. She denies any signs of bleeding. Plan Time spent on chart review, documentation, interview, assessment, MD communication Orders: Orders Lipid Panel Today E11.9 - Type 2 diabetes mellitus without complications Coding Level of Care Code Est Pt Level 4 (78961) Complex EM visit Add On G2211 Diagnoses Chest pain R07.9 Chest pain type: unspecified CAD (coronary artery disease) I25.10 Edema R60.9 SVT (supraventricular tachycardia) I47.1 Diabetes E11.9 Anemia D64.9 Time Spent (min) 32
[2024-10-02 14:12] VITALS: BP 136/56; PULSE 80
== END 2024-10-02 14:40 | disposition home or self-care (01) ==
LOC: HO.HCS 14:11
PROVIDERS: PCP Registered Nurse; Visit Provider Nurse Practitioner Family
DX: R07.9 Chest pain, unspecified (principal); I25.10 Atherosclerotic heart disease of native coronary artery without angina pectoris; R60.9 Edema, unspecified; I47.10 Supraventricular tachycardia, unspecified; E11.9 Type 2 diabetes mellitus without complications; D64.9 Anemia, unspecified
CPT/HCPCS: 99214; G2211

== ENCOUNTER 2024-10-02 14:10 | Outpatient (REF) | payer OTHER, SELFPAY ==
[2024-10-02 15:12] LABS: MANUAL DIFF FLAG NO
[2024-10-02 16:03] LABS: Basophils Absolute Auto 0.1 X10*3/uL (0.0-0.2); Basophils Percent Auto 0.7 % (0-2); Eosinophils Absolute Auto 0.3 X10*3/uL (0.0-0.4); Eosinophils Percent Auto 3.2 % (0-4); Hemoglobin 9.3 g/dl (12.0-16.0); Imm Gran Abs Auto 0.04 X10*3/uL (0.00-0.03); Imm Gran Pct Auto 0.4 % (0.0-0.4); Lymphocytes Absolute Auto 2.1 X10*3/uL (1.2-4.9); Lymphocytes Percent Auto 21.1 % (20-40); Mean Corpuscular Hemoglobin 18.7 pg (27.0-33.0); Mean Platelet Volume 10.4 fL (9.4-12.3); Monocytes Absolute Auto 0.6 X10*3/uL (0.1-1.2); Monocytes Percent Auto 6.5 % (2-11); Neutrophils Absolute Auto 6.7 x10*3/uL (2.0-8.3); Neutrophils Percent Auto 68.1 % (45-73); Platelet Count 383 X10*3/uL (160-400); Red Blood Count 4.98 X10*6/uL (4.20-5.50); White Blood Count 9.8 X10*3/uL (4.8-10.8)
[2024-10-02 16:05] LABS: Mean Corpuscular Volume 60.2 fL (80.0-98.0)
[2024-10-02 16:08] LABS: INTERNATIONAL NORM RATIO 0.9 (0.9-1.1); Prothrombin Time 10.5 SEC (10.9-12.4)
[2024-10-02 16:50] LABS: Erythrocyte Sedimentation Rate 53 MM/HR (0-20)
[2024-10-02 17:10] LABS: Alanine Aminotransferase 10 U/L (0-31); Albumin Level 3.5 g/dL (3.5-5.0); Anion Gap 16 (12-20); Aspartate Amino Transferase 18 U/L (5-31); Bilirubin Total 0.2 mg/dL (0.0-1.0); Blood Urea Nitrogen 71 mg/dL (9-16); C Reactive Protein 1.06 mg/dL (< or = 0.50); Calcium 9.1 mg/dL (8.4-10.2); Carbon Dioxide 23 mmol/L (22-29); Chloride 94 mmol/L (96-108); Cholesterol 311 mg/dL (<200); Estimated Glomerular Filt Rate 19; HDL Cholesterol 35 mg/dL (>40); LDL Cholesterol Calculated 212 mg/dL (<100); Magnesium 2.3 mg/dL (1.6-2.6); Potassium 3.7 mmol/L (3.3-5.1); Sodium 129 mmol/L (135-145); Total Protein 7.1 g/dL (6.5-8.0); Triglycerides 323 mg/dL (<150)
[2024-10-02 17:37] LABS: Glucose Random 571 mg/dL (60-115)
[2024-10-02 18:04] LABS: Alkaline Phosphatase 102 U/L (39-117)
== END 2024-10-02 14:11 | disposition home or self-care (01) ==
LOC: HO.LAB 14:10
PROVIDERS: Internal Medicine Medical Oncology; PCP Registered Nurse; Visit Provider Nurse Practitioner Family
DX: R07.9 Chest pain, unspecified (principal); E11.9 Type 2 diabetes mellitus without complications; D64.9 Anemia, unspecified; E11.22 Type 2 diabetes mellitus with diabetic chronic kidney disease; N18.30 Chronic kidney disease, stage 3 unspecified; Z79.4 Long term (current) use of insulin; I10 Essential (primary) hypertension; N18.32 Chronic kidney disease, stage 3b; Z89.512 Acquired absence of left leg below knee; M79.10 Myalgia, unspecified site; I25.10 Atherosclerotic heart disease of native coronary artery without angina pectoris; R60.9 Edema, unspecified; I47.10 Supraventricular tachycardia, unspecified
CPT/HCPCS: 36415; 80053; 80061; 83735; 85025; 85610; 85652; 86140; 99212

== ENCOUNTER 2024-10-06 10:10 | Outpatient (REF) | payer OTHER, SELFPAY ==
[2024-10-06 10:28] LABS: MANUAL DIFF FLAG NO
[2024-10-06 10:32] LABS: Basophils Absolute Auto 0.1 X10*3/uL (0.0-0.2); Basophils Percent Auto 0.7 % (0-2); Eosinophils Absolute Auto 0.3 X10*3/uL (0.0-0.4); Eosinophils Percent Auto 3.7 % (0-4); Hematocrit 27.5 % (37.0-47.0); Hemoglobin 8.6 g/dl (12.0-16.0); Imm Gran Abs Auto 0.04 X10*3/uL (0.00-0.03); Imm Gran Pct Auto 0.4 % (0.0-0.4); Lymphocytes Absolute Auto 3.1 X10*3/uL (1.2-4.9); Lymphocytes Percent Auto 34.5 % (20-40); Mean Corpuscular HGB Conc 31.3 g/dl (31.0-35.0); Mean Corpuscular Hemoglobin 18.9 pg (27.0-33.0); Monocytes Absolute Auto 0.6 X10*3/uL (0.1-1.2); Neutrophils Absolute Auto 4.9 x10*3/uL (2.0-8.3); Neutrophils Percent Auto 53.7 % (45-73); Platelet Count 343 X10*3/uL (160-400); Red Blood Count 4.55 X10*6/uL (4.20-5.50); Red Cell Distribution Width 17.9 % (11.0-16.0)
[2024-10-06 10:39] LABS: Mean Corpuscular Volume 60.4 fL (80.0-98.0)
[2024-10-06 10:44] LABS: INTERNATIONAL NORM RATIO 0.9 (0.9-1.1); Prothrombin Time 10.4 SEC (10.9-12.4)
[2024-10-06 11:05] LABS: Alanine Aminotransferase 7 U/L (0-31); Albumin Level 3.6 g/dL (3.5-5.0); Alkaline Phosphatase 91 U/L (39-117); Anion Gap 13 (12-20); Aspartate Amino Transferase 15 U/L (5-31); Bilirubin Total 0.3 mg/dL (0.0-1.0); Blood Urea Nitrogen 85 mg/dL (9-16); C Reactive Protein 0.59 mg/dL (< or = 0.50); Calcium 9.6 mg/dL (8.4-10.2); Carbon Dioxide 24 mmol/L (22-29); Chloride 101 mmol/L (96-108); Estimated Glomerular Filt Rate 21; Glucose Random 298 mg/dL (60-115); Potassium 4.4 mmol/L (3.3-5.1); Sodium 134 mmol/L (135-145); Total Protein 6.9 g/dL (6.5-8.0)
[2024-10-06 11:14] LABS: Erythrocyte Sedimentation Rate 53 MM/HR (0-20)
--- OUTSIDE RECORDS SUMMARY | 2024-10-06 11:55 | XMS_ITS | Encounter Summary ---
Author Organization [employer] Address [address] [place] [address] [address] [place] [address] Care Team Providers Care Casino Assistant Manager Name Role Phone Rosalind Cardoso Primary Care Provider [phone] Reason for Visit * Reason Comments Med Refill Encounter Details Date Type Department Care Team ([facility] st Contact Info) Description 10/23/2022 Refill [facility] MEDICINE [address] [place] [address] Name, MD Jaiden [address] [place] [address] Social History Tobacco Use Types Packs/Day Years [...] as of this encounter Plan of Treatment Not on file documented as of this encounter Visit Diagnoses Not on filedocumented in this encounter Care Teams Casino Assistant Manager Relationship Specialty Start Date End Date Rosalind Cardoso FNP [address] [place] [address] PCP - General Family Medicine 04/28/21 documented as of this encounter
--- OUTSIDE RECORDS SUMMARY | 2024-10-06 11:55 | XMS_ITS | Encounter Summary ---
Author Organization [employer] Address [address] [facility] [address]t [place] [address] Care Team Providers Care Superintendent [employer]crete Mixing [employer] Name Role Phone Rosalind Cardoso Primary Care Provider [phone] Encounter Details Date Type Department Care Team ([facility] st Contact Info) Description 07/03/2024 Orders Only [facility] & PEDS [address] [place], [place] [phone] Rosalind Cardoso FNP [address] [place] [address] Type 2 diabetes mellitus with stage 3 [...] on file documented as of this encounter Procedures Procedure [...] Prothrombin Time 10.7(L) 10.9 - 12.4 SEC [facility] INTERNATIONAL NORM RATIO 0.9 0.9 - 1.1 [facility] Comment:INTERNATIONAL NORMAL IZED RATIO (INR) REFERENCE [...] 07/07/2024 10:24 AM EST us Rosalind Cardoso AUTO SPECIALTY SERVICES MANAGER LAB BLOOD ORDERABLES Final Res ult [facility] [address] [place] [address] [phone] * (ABNORMAL) C-reactive Protein (07/07/2024 10:24 AM EST) C Reactive Protein 1.00(H) < or = 0.50 mg/dL [facility] Blood Venous blood specimen / Unknown 07/07/2024 10:24 AM EST 07/07/2024 10:24 AM EST Roaslind Cardoso AUTO SPECIALTY SERVICES MANAGER LAB BLOOD ORDERABLES Final Res ult Performing Organization Address [facility]/ZIP Co de Phone Number [facility] [address] [place] [address] [phone] * (ABNORMAL) Sed Rate by Modified Westergren (07/07/2024 10:24 AM EST) Erythrocyte Sedimentation Rate 34(H) 0 - 20 MM/HR [facility] Comment:Patients with polycy themia and many hemoglobin abnormalitiesmay have depressed sed rates whereas patients with anemiamay have elevated sed rates. Blood Venous blood specimen / Unknown 07/07/2024 10:24 AM EST 07/07/2024 10:24 AM EST Rosalind Cardoso [facility] BLOOD ORDERABLES Final Res ult Performing Organization Address [facility] Co de Phone Number [facility] [address] [place] [address] [phone] * Magnesium (07/07/2024 10:24 AM EST) Magnesium 1.8 1.6 - 2.6 mg/dL [facility] Blood Venous blood specimen / Unknown 07/07/2024 10:24 AM EST 07/07/2024 10:24 AM EST Rosalind Cardoso [facility] BLOOD ORDERABLES Final Res ult Performing Organization Address City/[facility]/ZIP Co de Phone Number [facility] [address] [place] [address] [phone] * (ABNORMAL) Comprehensive Metabolic Panel (07/07/2024 10:24 AM EST) Sodium 135 135 - 145 mmol/L [facility] Potassium 3.7 3.3 - 5.1 mmol/L [facility] Chloride 102 96 - 108 mmol/L [facility] Carbon Dioxide 25 22 - 29 mmol/L [facility] Anion Gap 12 12 - 20 [facility] Urea Nitrogen (BUN) 47(H) 9 - 16 mg/dL [facility] Creatinine, Serum 1.54(H) 0.5 - 1.4 mg/dL [facility] Estimated Glomerular Filt Rate 34 [facility] Comment:Chronic Kidney Disea se: Estimated GFR < 60 mL/min/1.31r3Cnrurd Kidney Disease: Estimated GFR < 15 mL/min/1.73m2 Glucose 400(HH) 60 - 115 mg/dL [facility] Comment:Critical value for G RADHA: Results called to and read backby: KAYLEE Gallegos Person calling: OLESYA Date: 07/07/24 Time:1102 Calcium 9.6 8.4 - 10.2 mg/dL [facility] Bilirubin, Total 0.2 0.0 - 1.0 mg/dL [facility] Aspartate Amino Transferase 17 5 - 31 U/L [facility] Alanine Aminotransferase 9 0 - 31 U/L [facility] Total Protein 7.3 6.5 - 8.0 g/dL [facility] Albumin Level 3.5 3.5 - 5.0 g/dL [facility] Alkaline Phosphatase 109 39 - 117 U/L [facility] Blood Venous blood specimen / Unknown 07/07/2024 10:24 AM EST 07/07/2024 10:24 AM EST us Rosalind Cardoso AUTO SPECIALTY SERVICES MANAGER LAB BLOOD ORDERABLES Final Res ult [facility] [address] [place] [address] [phone] documented in this encounter Visit Diagnoses Diagnosis Type 2 diabetes mellitus with stage 3 chronic kidney disease, with long-term current use of insulin, unspecified whether stage 3a or 3b CKD (CMS/HCC) Primary hypertension Unspecified essential hypertension Stage 3b chronic kidney disease ([facility]/HCC) 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
--- OUTSIDE RECORDS SUMMARY | 2024-10-06 11:55 | XMS_ITS | Encounter Summary ---
Author Organization [employer] Address [address] [facility] [address] [place] [address] Care Team Providers Care Waterworks Operator Name Role Phone Rosalind Cardoso Primary Care Provider [phone] Encounter Details Date Type Department Care Team (Late st Contact Info) Description 12/27/2023 Orders Only [facility] MEDICINE [address] [place] [address] Rosalind Cardoso FNP [address] [place] [address] Type 2 diabetes mellitus with stage 3 [...] unspecified whether stage 3a or 3b CKD ([facility]) Myalgia documented in this encounter Results * Prothrombin Time-INR (12/27/2023 9:33 AM EDT) Prothrombin Time 11.5 11.1 - 13.3 SEC [facility] INTERNATIONAL NORM RATIO 0.9 0.9 - 1.1 [facility] Comment:INTERNATIONAL NORMAL IZED RATIO (INR) [...] 12/27/2023 9:33 AM EDT us Rosalind Cardoso [employer] LAB BLOOD ORDERABLES Final Res ult [facility] [address] [place] [address] [phone] documented in this encounter Visit Diagnoses [...] documented as of this encounter Care Teams Waterworks Operator Relationship Specialty Start Date End Date Rosalind Cardoso FNP [address] [place] [address] PCP - General Family Medicine 04/28/21 documented as of this encounter
--- OUTSIDE RECORDS SUMMARY | 2024-10-06 11:55 | XMS_ITS | Encounter Summary ---
Author Organization [employer] Address [address] [facility] [address] [place] [address] Care Team Providers Care Harvest Field Ticketer Name Role Phone Rosalind Cardoso Primary Care Provider [phone] Encounter Details Date Type Department Care Team ([facility] st Contact Info) Description 06/19/2024 Orders Only [facility] PEDS [address] [place], [place] [phone] Rosalind Cardoso FNP [address] [place] [address] Type 2 diabetes mellitus with stage 3 [...] Prothrombin Time 11.3 10.9 - 12.4 SEC [facility] INTERNATIONAL NORM RATIO 1.0 0.9 - 1.1 [facility] Comment:INTERNATIONAL NORMAL IZED RATIO (INR) [...] AM EST 06/23/2024 10:31 AM EST Rosalind [employer] [facility] BLOOD ORDERABLES Final Res ult Performing Organization Address [facility] Co de Phone Number [facility] [address] [place] [phone] * (ABNORMAL) Sed Rate by Modified Westergren (06/23/2024 10:31 AM EST) Pathologist [facility] Erythrocyte Sedimentation Rate 38(H) 0 - 20 MM/HR [facility] Comment:Patients with polycy themia and many hemoglobin abnormalitiesmay have depressed sed rates whereas patients with anemiamay have elevated sed rates. Blood Venous blood specimen / Unknown 06/23/2024 10:31 AM EST 06/23/2024 10:31 AM EST Rosalind [employer] [facility] BLOOD ORDERABLES Final Res ult Performing Organization Address [facility] de Phone Number [facility] [address] [place] [phone] * (ABNORMAL) Comprehensive Metabolic Panel (06/23/2024 10:31 AM EST) Sodium 134(L) 135 - 145 mmol/L [facility] Potassium 4.1 3.3 - 5.1 mmol/L [facility] Chloride 97 96 - 108 mmol/L [facility] Carbon Dioxide 27 22 - 29 mmol/L [facility] Anion Gap 14 12 - 20 [facility] Urea Nitrogen (BUN) 45(H) 9 - 16 mg/dL [facility] Creatinine, Serum 1.91(H) 0.5 - 1.4 mg/dL [facility] Estimated Glomerular Filt Rate 27 [facility] Comment:Chronic Kidney Disea se: Estimated GFR < 60 mL/min/1.21c7Insdte Kidney Disease: Estimated GFR < 15 mL/min/1.73m2 Glucose 287(H) 60 - 115 mg/dL [facility] Calcium 9.1 8.4 - 10.2 mg/dL [facility] Bilirubin, Total 0.3 0.0 - 1.0 mg/dL [facility] Aspartate Amino Transferase 19 5 - 31 U/L [facility] Alanine Aminotransferase 11 0 - 31 U/L [facility] Total Protein 7.4 6.5 - 8.0 g/dL [facility] Albumin Level 3.6 3.5 - 5.0 g/dL [facility] Alkaline Phosphatase 99 39 - 117 U/L [facility] Blood Venous blood specimen / Unknown 06/23/2024 10:31 AM EST 06/23/2024 10:31 AM EST us Rosalind Cardoso MECHANICAL FIELD ENGINEER LAB BLOOD ORDERABLES Final Res ult [facility] [address] [place] [address] [phone] documented in this encounter Visit Diagnoses Diagnosis Type 2 diabetes mellitus with stage 3 chronic kidney disease, with long-term current use of insulin, unspecified whether stage 3a or 3b CKD ([facility]/HCC) Primary hypertension Unspecified essential hypertension Stage 3b chronic kidney disease ([facility]/HCC) 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
--- OUTSIDE RECORDS SUMMARY | 2024-10-06 11:55 | XMS_ITS | Encounter Summary ---
Author Organization [employer] Address [address] [facility] 7t [place] [address] Care Team Providers Care Chaplaincy Name Role Phone Rosalind Cardoso Primary Care Provider [phone] Encounter Details Date Type Department Care Team (Late st Contact Info) Description 11/15/2023 Orders Only [facility] MEDICINE [address] [place] [address] Rosalind Cardoso FNP [address] [place] [address] Type 2 diabetes mellitus with stage 3 [...] Comments SED RATE BY MODIFIED WESTERGREN Routine 11/20/2023 9:36 AM EDT Type 2 diabetes mellitus with stage 3 chronic kidney disease, with long-term current use of insulin, unspecified whether stage 3a or 3b CKD (CMS/HCC) Myalgia PROTHROMBIN TIME-INR Routine 11/20/2023 9:36 AM [...] Results * (ABNORMAL) Sed Rate by Modified Marlene (11/20/2023 9:36 AM EDT) Erythrocyte Sedimentation Rate 30(H) 0 - 20 MM/HR [facility] Comment:Patients with polycy themia and many hemoglobin abnormalitiesmay have depressed sed rates whereas patients with anemiamay have elevated sed rates. Blood Venous blood specimen / Unknown 11/20/2023 9:36 AM EDT 11/20/2023 9:36 AM EDT Rosalind Cardoso SERVICE TRANSFORMER REPAIR SUPERVISOR LAB BLOOD ORDERABLES Final Res ult Performing Organization Address [facility] Co de Phone Number [facility] [address] [place] [phone] * (ABNORMAL) C-reactive Protein (11/20/2023 9:36 AM EDT) C Reactive Protein 1.26(H) < or = 0.50 mg/dL [facility] Blood Venous blood specimen / Unknown 11/20/2023 9:36 AM EDT 11/20/2023 9:36 AM EDT Rosalind Cardoso SERVICE TRANSFORMER REPAIR SUPERVISOR LAB BLOOD ORDERABLES Final Res ult Performing Organization Address [facility] Co de Phone Number [facility] [address] [place] [phone] * Magnesium (11/20/2023 9:36 AM EDT) Magnesium 1.8 1.6 - 2.6 mg/dL [facility] Blood Venous blood specimen / Unknown 11/20/2023 9:36 AM EDT 11/20/2023 9:36 AM EDT Rosalind Phaledna SERVICE TRANSFORMER REPAIR SUPERVISOR LAB BLOOD ORDERABLES Final Res ult Performing Organization Address [facility]/ZIP Co de Phone Number [facility] [address] [place] [address] [phone] * Prothrombin Time-INR (11/20/2023 9:36 AM EDT) Prothrombin Time 11.6 11.1 - 13.3 SEC [facility] INTERNATIONAL NORM RATIO 1.0 0.9 - 1.1 [facility] Comment:INTERNATIONAL NORMAL IZED RATIO [...] EDT 11/20/2023 9:36 AM EDT Rosalind Cardoso SERVICE TRANSFORMER REPAIR SUPERVISOR LAB BLOOD ORDERABLES Final Res ult [facility] [address] [place] [phone] * (ABNORMAL) Comprehensive Metabolic Panel (11/20/2023 9:36 AM EDT) Pathologist [facility] Sodium 139 135 - 145 mmol/L [facility] Potassium 4.0 3.3 - 5.1 mmol/L [facility] Chloride 102 96 - 108 mmol/L [facility] Carbon Dioxide 28 22 - 29 mmol/L [facility] Anion Gap 13 12 - 20 [facility] Urea Nitrogen (BUN) 40(H) 9 - 16 mg/dL [facility] Creatinine, Serum 1.51(H) 0.5 - 1.4 mg/dL [facility] Estimated Glomerular Filt Rate 35 [facility] Comment:NOTE: For -Am erican individuals, multiply the result by 1.210.Chronic Kidney Disease: Estimated GFR < 60 mL/min/1.76o1Rxjmih Kidney Disease: Estimated GFR < 15 mL/min/1.73m2 Glucose 214(H) 60 - 115 mg/dL [facility] Calcium 9.7 8.4 - 10.2 mg/dL [facility] Bilirubin, Total 0.2 0.0 - 1.0 mg/dL [facility] Aspartate Amino Transferase 15 5 - 31 U/L [facility] Alanine Aminotransferase 11 0 - 31 U/L [facility] Total Protein 7.0 6.5 - 8.0 g/dL [facility] Albumin Level 3.4(L) 3.5 - 5.0 g/dL [facility] Alkaline Phosphatase 112 39 - 117 U/L [facility] Blood Venous blood specimen / Unknown 11/20/2023 9:36 AM EDT 11/20/2023 9:36 AM EDT us Rosalind MORELOS LAB BLOOD ORDERABLES Final Res ult [facility] [address] [place] [phone] [phone] documented in this encounter Visit Diagnoses Diagnosis Type 2 diabetes mellitus with stage 3 chronic kidney disease, with long-term current use of insulin, unspecified whether stage 3a or 3b CKD ([facility]) Myalgia Unspecified myalgia and myositis documented in this encounter Additional Health Concerns Assessment Noted Time PHQ-9 Depression Total Score: 0 12/26/19 23 1:09 PM EDT documented as of this encounter Care Teams Chaplaincy Relationship Specialty Start Date End Date Rosalind Cardoso FNP [address] [place] [address] PCP - General Family Medicine 04/28/21 documented as of this encounter
--- OUTSIDE RECORDS SUMMARY | 2024-10-06 11:55 | XMS_ITS | Encounter Summary ---
Author Organization [employer] Address [address] [place] [phone] Care Team Providers Care Sports Physiotherapist Name Role Phone Rosalind Cardoso Primary Care Provider [phone] Reason for Referral * Consultation (Routine) - Closed Specialty Diagnoses / Procedures Referred By Anthony reyes Referred To Contact Diagnoses Cervicalgia Fibromyalgia 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 (CMS/HCC) Rosalind Cardoso FNP [address] [place] [address] Phone: tel: fax: [facility] Referral ID Status Reason Start Date Expiration Date V isits Requested Visits Authorized [id number] Closed Specialty Services Required 11/28/2023 11/27/2024 1 1 * Consultation (Routine) - Closed Specialty Diagnoses / Procedures Referred By Anthony reyes Referred To Contact Physical Therapy Diagnoses Cervicalgia Fibromyalgia 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 ([facility]/HCC) Rosalind Cardoso FNP [address] [place] [address] Phone: tel: fax: [facility] [address] [place] [phone] Phone: tel: fax: Referral ID Status Reason Start Date Expiration Date V isits Requested Visits Authorized [id number] Closed Specialty Services Required 11/28/2023 11/27/2024 1 1 Reason for Visit * Reason Onset Date Comments Referral 11/25/2023 Results 11/25/2023 Encounter Details Date Type Department Care Team (Late st Contact Info) Description 11/25/2023 Telephone [facility] [address] [place] [address] Rosalind Cardoso FNP [address] [place] [address] Referral; Results Social History Tobacco Use Types [...] lisinopril, 10 mg starting last month by otm consultant along with continuing furosemide, 80 mg. Pt is also requesting new referral [facility] and full body massage respectively. [facility] unable to [facility] due to being sick and leg swelling. Called [facility] at [phone], spoke to Stella and confirmed a referral was sent and another needs to be sent so insurance cancover it. Their fax is [phone]. Also called [facility] and got their fax number which is [phone]. Pt is also waiting for results of US done on kidney at [facility] on 11/19. Advised that results may take [...] referral : DATE: n/a TIME: n/a Address: [address] [place] [address] Visits: n/a Facility Name: [facility] Type of Specialist: Acupuncture DX: amputation and Fibromyalgia Phone # : [phone] Fax #: n/a TC from pt requesting call back regarding Results. Type of results: labs Date when done: 11/19 Facility: [facility] Pt is also calling to advise provider otm consultant increased dosage of furosemide (Lasix) 20 MG tablet to 80 mg. Advise to continue medication for a week and do blood work by end of this week. Pt will also be receiving prosthetic leg in about a week or so Any questions, contact pt at [phone] documented in this encounter Plan of Treatment Scheduled Referrals Name Type Priority Associated Diagnoses Order Schedule Referral to Massage Therapy Outpatient Referral Routine Cervicalgia Fibromyalgia 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 (CMS/HCC) Expected: 11/28/2023 (Approximate), Expires: 11/27/2024 Referral for Acupuncture Outpatient Referral Routine Cervicalgia Fibromyalgia 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 (CMS/HCC) Expected: 11/28/2023 (Approximate), Expires: 11/27/2024 documented as of this encounter Visit Diagnoses Diagnosis Cervicalgia- Primary Fibromyalgia Unspecified myalgia and myositis 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
--- OUTSIDE RECORDS SUMMARY | 2024-10-06 11:55 | XMS_ITS | Encounter Summary ---
Author Organization [employer] Address [address] [place] [address] [address] [place] [address] Care Team Providers Care Shear Grinder Operator Helper Name Role Phone Rosalind Cardoso Primary Care Provider [phone] Encounter Details Date Type Department Care Team ([facility] Contact Info) Description 10/19/2022 Telephone [facility] [address] [place] [address] Rosalind Cardoso FNP [address] [place] [address] Social History Tobacco Use Types Packs/Day Years [...] on filedocumented in this encounter Care Teams Shear Grinder Operator Helper Relationship Specialty Start Date End Date Rosalind Cardoso FNP [address] [place] [address] PCP - General Family Medicine 04/28/21 documented as of this encounter
--- OUTSIDE RECORDS SUMMARY | 2024-10-06 11:55 | XMS_ITS | Encounter Summary ---
Author Organization [employer] Address [address] [facility] [address]t [place] [address] Care Team Providers Care Vice President Of Contracts Name Role Phone Rosalind Cardoso Primary Care Provider [phone] Reason for Visit * Reason Onset Date Comments Durable Medical Equipment 10/23/2022 Encounter Details Date Type Department Care Team (Late st Contact Info) Description 10/23/2022 Telephone [facility] MEDICINE [address] [place] [address] Rosalind Cardoso FNP [address] [place] [address] Durable Medical Equipment Social History Tobacco Use [...] Script for walker was already sent to home visit field care manager and pt notified. * Telephone Encounter - Riannereida Rafa Talley - 10/23/2022 2:25 PM EDT Tc from pt requesting a regular Walker for physical therapy program. Pt states that she needs the regular walker with the two wheels in the front and not seat. Please contact pt at [phone] documented in this encounter Plan of Treatment Not on file documented as of this encounter Visit Diagnoses Not on filedocumented in this encounter Care Teams Vice President Of Contracts Relationship Specialty Start Date End Date Rosalind Cardoso FNP [address] [place] [address] PCP - General Family Medicine 04/28/21 documented as of this encounter
--- OUTSIDE RECORDS SUMMARY | 2024-10-06 11:55 | XMS_ITS | Encounter Summary ---
Author Organization [employer] Address [address] [facility] [address] [place] [address] Care Team Providers Care Inner Tube Inserter Name Role Phone Rosalind Cardoso Primary Care Provider [phone] Encounter Details Date Type Department Care Team (Late st Contact Info) Description 11/29/2023 Orders Only [facility] MEDICINE [address] [place] [address] Rosalind Cardoso FNP [address] [place] [address] Type 2 diabetes mellitus with stage 3 [...] EDT Narrative 12/27/2023 3:26 PM EDT ? [facility] ? [address] ?[place] [address] ? Mammography Report ? Signed ? Patient: Manus,Mitra ?MR#: [id number] ? : 1965 ?Acct:[id number] ? Age/Sex: 58 / F ?ADM Date: 11/28/ ? Loc: HO.MAMMO ? Attending Dr: Rosalind Cardoso CAKE BATTER MIXER ? Ordering Physician: Janae,Rosalind CAKE BATTER MIXER ?Results: 1Negat ?? aiden ? Date of Service: 11/28/ ?Follow Up: 1 Year From Orig ?? inal Mammogram ? Procedure(s): MM tomosynthesis screening BI ?? Accession Number(s): [id number] ? cc: Rosalind Cardoso CAKE BATTER MIXER ? EXAMINATION: ?? MM SCREENING DIGITAL BREAST [...] 1522 ? DD/ 1440 ? TD/TT: ? Commercial Sales Manager: ? Procedure Note Mauri, Image - 12/27/2023 [facility] [address] [place] [address] [place] [address] Mammography Report Signed Patient: Dany Parish#: [id number] : 1965Acct:[id number] Age/Sex: 58 / FADM Date: 11/29/23 Loc: NAJMA Attending Dr: Rosalind Cardoso CAKE BATTER MIXER Ordering Physician: Rosalind Cardoso FNPResults: 1Negat aiden Date of Service: 11/29/23Follow Up: 1 Year From Orig inal Mammogram Procedure(s): MM tomosynthesis screening BI Accession Number(s): [id number] cc: Rosalind Cardoso EXAMINATION: MM SCREENING DIGITAL [...] in OV> 12/27/23 1522 DD/ 1440 TD/TT: Commercial Sales Manager: Rosalind MORELOS IMG BI PROCEDURES Final Result * (ABNORMAL) Sed Rate by Modified Marlene (11/29/2023 1:21 PM EDT) Erythrocyte Sedimentation Rate 30(H) 0 - 20 MM/HR [facility] Comment:Patients with polycy themia and many hemoglobin abnormalitiesmay have depressed sed rates whereas patients with anemiamay have elevated sed rates. Blood Venous blood specimen / Unknown 11/29/2023 1:21 PM EDT 11/29/2023 1:21 PM EDT us Rosalind STARKSP LAB BLOOD ORDERABLES Final Res ult [facility] [address] [place] [phone] * C-reactive Protein (11/29/2023 1:21 PM EDT) [facility] C Reactive Protein 0.34 < or = 0.50 mg/dL [facility] Blood Venous blood specimen / Unknown 11/29/2023 1:21 PM EDT 11/29/2023 1:21 PM EDT Rosalind Cardoso CAKE BATTER MIXER LAB BLOOD ORDERABLES Final Res ult Performing Organization Address [facility] Co de Phone Number [facility] [address] [place] [phone] * Magnesium (11/29/2023 1:21 PM EDT) [facility] Magnesium 1.8 1.6 - 2.6 mg/dL [facility] Blood Venous blood specimen / Unknown 11/29/2023 1:21 PM EDT 11/29/2023 1:21 PM EDT Rosalind Cardoso [facility] LAB BLOOD ORDERABLES Final Res ult Performing Organization Address [facility] de Phone Number [facility] [address] [place] [phone] * Prothrombin Time-INR (11/29/2023 1:21 PM EDT) [facility] Prothrombin Time 11.8 11.1 - 13.3 SEC [facility] INTERNATIONAL NORM RATIO 1.0 0.9 - 1.1 [facility] Comment:INTERNATIONAL NORMAL IZED RATIO (INR) [...] EDT 11/29/2023 1:21 PM EDT us Rosalind Cardoso CAKE BATTER MIXER LAB BLOOD ORDERABLES Final Res ult [facility] [address] [place], [place] [phone] * (ABNORMAL) Comprehensive Metabolic Panel (11/29/2023 1:21 PM EDT) Sodium 140 135 - 145 mmol/L [facility] Potassium 3.6 3.3 - 5.1 mmol/L [facility] Chloride 103 96 - 108 mmol/L [facility] Carbon Dioxide 28 22 - 29 mmol/L [facility] Anion Gap 13 12 - 20 [facility] Urea Nitrogen (BUN) 23(H) 9 - 16 mg/dL [facility] Creatinine, Serum 1.06 0.5 - 1.4 mg/dL [facility] Estimated Glomerular Filt Rate 53 [facility] Comment:NOTE: For -Am erican individuals, multiply the result by 1.210.Chronic Kidney Disease: Estimated GFR < 60 mL/min/1.36d5Sauulc Kidney Disease: Estimated GFR < 15 mL/min/1.73m2 Glucose 165(H) 60 - 115 mg/dL [facility] Calcium 9.5 8.4 - 10.2 mg/dL [facility] Bilirubin, Total 0.3 0.0 - 1.0 mg/dL [facility] Aspartate Amino Transferase 16 5 - 31 U/L [facility] Alanine Aminotransferase 13 0 - 31 U/L [facility] Total Protein 6.8 6.5 - 8.0 g/dL [facility] Albumin Level 3.3(L) 3.5 - 5.0 g/dL [facility] Alkaline Phosphatase 94 39 - 117 U/L [facility] Blood Venous blood specimen / Unknown 11/29/2023 1:21 PM EDT 11/29/2023 1:21 PM EDT us Rosalind Cardoso CAKE BATTER MIXER LAB BLOOD ORDERABLES Final Res ult [facility] [address] [place] [phone] [phone] * (ABNORMAL) CBC auto differential (11/29/2023 1:21 PM EDT) White Blood Count 8.7 4.8 - 10.8 X10*3/uL [facility] Red Blood Count 5.99(H) 4.20 - 5.50 X10*6/uL [facility] Hemoglobin 11.3(L) 12.0 - 16.0 g/dl [facility] Hematocrit 37.5 37.0 - 47.0 % [facility] Mean Corpuscular Volume 62.6(L) 80.0 - 98.0 fL [facility] Mean Corpuscular Hemoglobin 18.9(L) 27.0 - 33.0 pg [facility] Mean Corpuscular HGB Conc 30.1(L) 31.0 - 35.0 g/dl [facility] Red Cell Distribution Width 16.4(H) 11.0 - 16.0 % [facility] Platelet Count 310 160 - 400 X10*3/uL [facility] Mean Platelet Volume 11.1 9.4 - 12.3 fL [facility] Neutrophils Percent Auto 56.2 45 - 73 % [facility] Imm Gran Pct Auto 0.2 0.0 - 0.4 % [facility] Lymphocytes Percent Auto 32.5 20 - 40 % [facility] Monocytes Percent Auto 7.6 2 - 11 % [facility] Eosinophils Percent Auto 2.8 0 - 4 % [facility] Basophils Percent Auto 0.7 0 - 2 % [facility] NRBC Pct Auto 0.0 0.0 - 0.2 /100WBC [facility] Neutrophils Absolute Auto 4.9 2.0 - 8.3 x10*3/uL [facility] Imm Gran Abs Auto 0.02 0.00 - 0.03 X10*3/uL [facility] Lymphocytes Absolute Auto 2.8 1.2 - 4.9 X10*3/uL [facility] Monocytes Absolute Auto 0.7 0.1 - 1.2 X10*3/uL [facility] Eosinophils Absolute Auto 0.2 0.0 - 0.4 X10*3/uL [facility] Basophils Absolute Auto 0.1 0.0 - 0.2 X10*3/uL [facility] NRBC Abs Auto 0.000 0.0 - 0.012 X10*3/uL [facility] Blood Venous blood specimen / Unknown 11/29/2023 1:21 PM EDT 11/29/2023 1:21 PM EDT us Rosalind MORELOS LAB BLOOD ORDERABLES Final Res ult Performing Organization Address City/State/[facility] Co de Phone Number [facility] [address] [place] [phone] documented in this encounter Visit Diagnoses [...] documented as of this encounter Care Teams Inner Tube Inserter Relationship Specialty Start Date End Date Rosalind Cardoso FNP [address] [place] [address] PCP - General Family Medicine 04/28/21 documented as of this encounter
--- OUTSIDE RECORDS SUMMARY | 2024-10-06 11:55 | XMS_ITS | Encounter Summary ---
Author Organization [employer] Address [address] [place] [address] [address] [place] [address] Care Team Providers Care Pneumatic Tool Repairer Name Role Phone Rosalind Cardoso Primary Care Provider [phone] Encounter Details Date Type Department Care Team ([facility] st Contact Info) Description 11/28/2022 Abstract [facility] MEDICINE [address] [place] [address] Rosalind Cardoso FNP [address] [place] [address] Social History Tobacco Use Types Packs/Day Years [...] on filedocumented in this encounter Care Teams Pneumatic Tool Repairer Relationship Specialty Start Date End Date Rosalind Cardoso FNP [address] [place] [address] PCP - General Family Medicine 04/28/21 documented as of this encounter
--- OUTSIDE RECORDS SUMMARY | 2024-10-06 11:55 | XMS_ITS | Data Portability ---
Author Organization [employer] [facility] [place] in - [facility] Address [address] [place] [phone] Care Team Providers Care Packaging Operator Name Role Phone [facility] Referring Provider [facility] Referring Provider Assessment Encounter Date Assessment Date Assessment LastModified by Organization Details LastModified Time 07/24/2023 07/24/2023 I provided real -time medical direction via phone for this encounter, and was available for additional phone based assistance as needed. I have reviewed and agree with the Assessment and Plan as documented by the Care Taker. Patient given the opportunity to ask questions. [...] hemoglobin + hematocrit, blood 2023 024 [place] [facility], [address] [place] [address], [phone], 09:28:43 Referral None recorded. Procedures None recorded. [...] APPLY TOPICALLY TO AFFECTED AREA(S) DIRECTED BY [facility] active [...] Available Not Available No t Available FreeStyle Pomona Lite kit USE TO TEST BLOOD SUGAR [...] /min 132 mm[Hg] 81 mm[Hg] Not Available [employer] - production 2 16:51:45 Social History None [...] [id number] Anish Rocha MD Main - [facility] [address] [place] [phone] 05/04/2022 16:51:33 05/08/2022 15:59:32 Chest pain [id number] R07.9 Chronic. Symptoms for months. EKG with no ST-T wave changes. Advised to f/u with primary care team for abdominal US/ECHO and possible CT chest given chronicity of symtpoms [id number] Anny Whalen MD Main - [facility] [address] [place] [phone] 07/24/2023 12:57:53 07/25/2023 09:42:01 Anemia [id number] D64.9 Health Concerns Section Related Observation LastModified by Organization Detai ls LastModified Time None Recorded Concern Status LastModified by Organization Details LastModified Time None Recorded Advance Directives Directive None Recorded Payers Encounter Date Sequence Insurance Name Policy Number Policy Penn Covered Member ID Penn Member ID Guarantor Name 05/04/[address] [facility] - DOS PRIOR TO 2022 - DUAL ELIGIBLE (MEDICARE REPLACEMENT/ADV ANTAGE - HMO) Mtira Parish [id number] Mitra Parish 07/24/[address] [facility] - DOS ON OR AFTER 2022 - DUAL ELIGIBLE - DETENTION OPTIONS AND ONE CARE (MEDICARE REPLACEMENT/ADV ANTAGE - HMO) Mitra Parish [id number] Mitra Parish Notes Date Note Type Note [...] .................. .................. .................. .................. .................. .................. ............... Care Taker Note: Patient chief complaint of epigastric pain. [...] .................. ............... Disposition: Fulfilled Anish Rocha MD [address] [place] [address],[facility], [place], [phone], [employer] 05/05/2022 13:11:58 07/24/2023 text/html HPI: Patient with history of CKD stage 3b , microcytic anemia. follows with Dr. Mattson not seen in > 2 months for procrit injections. Last H&H in chart 06/10/23 Hgb 9.9 HCT 33.6. Patient is an amputee unable to get out to appt. Has pending CLOCK MAKER but not in place at this time. [...] .................. .................. .................. .................. .................. .................. ............... Care Taker Note From Maximus Neal: Dispatched to the [...] non tender/distended, pupils PERRL. Blood draw from [facility] with 23g butterfly. BMP. HCT 33, Hb 11.2. [facility] consulted. Pt advised of results. Red flags discussed. ALL times are approx. .................. .................. .................. .................. .................. .................. .................. ............... Disposition: Fulfilled Anny Whalen MD [address] [place] [address],[facility], [place], [phone], MANJU TEIXEIRA 07/24/2023 12:59:58 OBGyn Episode No OBEpisode recorded.
--- OUTSIDE RECORDS SUMMARY | 2024-10-06 11:55 | XMS_ITS | Encounter Summary ---
Author Organization [employer] Address [address] [facility] 7t [place] [address] Care Team Providers Care Prospecting Driller Helper Name Role Phone Rosalind Cardoso Primary Care Provider [phone] Encounter Details Date Type Department Care Team (Late st Contact Info) Description 12/13/2023 Orders Only [facility] [address] [place] [address] Rosalind Cardoso FNP [address] [place] [address] Type 2 diabetes mellitus with stage 3 [...] whether stage 3a or 3b CKD ([facility]) Myalgia B TYPE NATRIURETIC PEPTIDE (BNP) Routine 12/13/2023 8:52 AM EDT Type 2 diabetes mellitus with stage 3 chronic kidney disease, with long-term current use of insulin, unspecified whether stage 3a or 3b CKD ([facility]) documented in this encounter Results * (ABNORMAL) B Type Natriuretic Peptide (BNP) (12/13/2023 8:52 AM EDT) B Type Natriuretic Peptide 1,216(H) <100 pg/mL [facility] Comment:For those patients w ho are being treated with Natrecor(nesiritide, recombinant BNP), BNP testing should beperformed at least two hours post treatment in order toensure that only endogenous levels of BNP are detected. 12/13/2023 8:52 AM EDT 12/13/2023 8:52 AM EDT us Generic External Data Provider LAB BLOOD ORDERAB LES Final Result [facility] [address] [place] [address] [phone] * (ABNORMAL) CBC auto differential (12/13/2023 8:52 AM EDT) White Blood Count 9.1 4.8 - 10.8 X10*3/uL [facility] Red Blood Count 6.02(H) 4.20 - 5.50 X10*6/uL [facility] Hemoglobin 11.4(L) 12.0 - 16.0 g/dl [facility] Hematocrit 37.7 37.0 - 47.0 % [facility] Mean Corpuscular Volume 62.6(L) 80.0 - 98.0 fL [facility] Mean Corpuscular Hemoglobin 18.9(L) 27.0 - 33.0 pg [facility] Mean Corpuscular HGB Conc 30.2(L) 31.0 - 35.0 g/dl [facility] Red Cell Distribution Width 17.2(H) 11.0 - 16.0 % [facility] Platelet Count 285 160 - 400 X10*3/uL [facility] Mean Platelet Volume 10.8 9.4 - 12.3 fL [facility] Neutrophils Percent Auto 51.6 45 - 73 % [facility] Imm Gran Pct Auto 0.4 0.0 - 0.4 % [facility] Lymphocytes Percent Auto 36.9 20 - 40 % [facility] Monocytes Percent Auto 7.7 2 - 11 % [facility] Eosinophils Percent Auto 2.8 0 - 4 % [facility] Basophils Percent Auto 0.6 0 - 2 % [facility] NRBC Pct Auto 0.0 0.0 - 0.2 /100WBC [facility] Neutrophils Absolute Auto 4.7 2.0 - 8.3 x10*3/uL [facility] Imm Gran Abs Auto 0.04(H) 0.00 - 0.03 X10*3/uL [facility] Lymphocytes Absolute Auto 3.3 1.2 - 4.9 X10*3/uL [facility] Monocytes Absolute Auto 0.7 0.1 - 1.2 X10*3/uL [facility] Eosinophils Absolute Auto 0.3 0.0 - 0.4 X10*3/uL [facility] Basophils Absolute Auto 0.1 0.0 - 0.2 X10*3/uL [facility] NRBC Abs Auto 0.000 0.0 - 0.012 X10*3/uL [facility] Blood Venous blood specimen / Unknown 12/13/2023 8:52 AM EDT 12/13/2023 8:52 AM EDT us Rosalind MORELOS LAB BLOOD ORDERABLES Final Res ult [facility] [address] [place] [phone] [phone] documented in this encounter Visit Diagnoses [...] documented as of this encounter Care Teams Prospecting Driller Helper Relationship Specialty Start Date End Date Rosalind Cardoso FNP [address] [place] [address] PCP - General Family Medicine 04/28/21 documented as of this encounter
--- OUTSIDE RECORDS SUMMARY | 2024-10-06 11:55 | XMS_ITS | Encounter Summary ---
Author Organization [employer] Address [address] [facility] 7t [place] [address] Care Team Providers Care Peeler Operator Name Role Phone Rosalind Cardoso Primary Care Provider [phone] Encounter Details Date Type Department Care Team (Late st Contact Info) Description 11/01/2023 Orders [address] [facility] [address] [place] [address] Rosalind Cardoso FNP [address] [place] [address] Type 2 diabetes mellitus with stage 3 [...] or 3b CKD (CMS/HCC) Myalgia MAGNESIUM Routine 11/01/2023 3:53 PM EDT Type 2 diabetes mellitus with stage 3 chronic kidney disease, with long-term current use of insulin, unspecified whether stage 3a or 3b CKD (CMS/HCC) Myalgia COMPREHENSIVE METABOLIC PANEL Routine 11/01/2023 3:53 PM EDT Type 2 diabetes mellitus with stage 3 chronic kidney disease, with long-term current use of insulin, unspecified whether stage 3a or 3b CKD ([facility]) Myalgia documented in this encounter Results * (ABNORMAL) CBC auto differential (11/01/2023 3:58 PM EDT) White Blood Count 10.2 4.8 - 10.8 X10*3/uL [facility] Red Blood Count 5.64(H) 4.20 - 5.50 X10*6/uL [facility] Hemoglobin 10.9(L) 12.0 - 16.0 g/dl [facility] Hematocrit 36.9(L) 37.0 - 47.0 % [facility] Mean Corpuscular Volume 65.4(L) 80.0 - 98.0 fL [facility] Mean Corpuscular Hemoglobin 19.3(L) 27.0 - 33.0 pg [facility] Mean Corpuscular HGB Conc 29.5(L) 31.0 - 35.0 g/dl [facility] Red Cell Distribution Width 18.8(H) 11.0 - 16.0 % [facility] Platelet Count 469(H) 160 - 400 X10*3/uL [facility] Mean Platelet Volume 10.4 9.4 - 12.3 fL [facility] Neutrophils Percent Auto 66.7 45 - 73 % [facility] Imm Gran Pct Auto 0.3 0.0 - 0.4 % [facility] Lymphocytes Percent Auto 22.9 20 - 40 % [facility] Monocytes Percent Auto 6.2 2 - 11 % [facility] Eosinophils Percent Auto 3.3 0 - 4 % [facility] Basophils Percent Auto 0.6 0 - 2 % [facility] NRBC Pct Auto 0.2 0.0 - 0.2 /100WBC [facility] Neutrophils Absolute Auto 6.8 2.0 - 8.3 x10*3/uL [facility] Imm Gran Abs Auto 0.03 0.00 - 0.03 X10*3/uL [facility] Lymphocytes Absolute Auto 2.3 1.2 - 4.9 X10*3/uL [facility] Monocytes Absolute Auto 0.6 0.1 - 1.2 X10*3/uL [facility] Eosinophils Absolute Auto 0.3 0.0 - 0.4 X10*3/uL [facility] Basophils Absolute Auto 0.1 0.0 - 0.2 X10*3/uL [facility] NRBC Abs Auto 0.020(H) 0.0 - 0.012 X10*3/uL [facility] Blood Venous blood specimen / Unknown 11/01/2023 3:58 PM EDT 11/01/2023 5:40 PM EDT Rosalind Cardoso [facility] LAB BLOOD ORDERABLES Final Res ult Performing Organization Address [facility] Co de Phone Number [facility] [address] [place] [phone] * (ABNORMAL) Sed Rate by Modified Javierren (11/01/2023 3:53 PM EDT) Pathologist [facility] Erythrocyte Sedimentation Rate 28(H) 0 - 20 MM/HR [facility] Comment:Patients with polycy themia and many hemoglobin abnormalitiesmay have depressed sed rates whereas patients with anemiamay have elevated sed rates. Blood Venous blood specimen / Unknown 11/01/2023 3:53 PM EDT 11/01/2023 5:40 PM EDT Rosalind Cardoso [facility] LAB BLOOD ORDERABLES Final Res ult Performing Organization Address [facility] Co de Phone Number [facility] [address] [place] [phone] * C-reactive Protein (11/01/2023 3:53 PM EDT) Pathologist [facility] C Reactive Protein 0.48 < or = 0.50 mg/dL [facility] Blood Venous blood specimen / Unknown 11/01/2023 3:53 PM EDT 11/01/2023 5:40 PM EDT Rosalind Cardoso [employer] LAB BLOOD ORDERABLES Final Res ult Performing Organization Address [facility] Co de Phone Number [facility] [address] [place] [phone] * Magnesium (11/01/2023 3:53 PM EDT) Magnesium 1.7 1.6 - 2.6 mg/dL [facility] Blood Venous blood specimen / Unknown 11/01/2023 3:53 PM EDT 11/01/2023 5:40 PM EDT Rosalindgraham Bruceedna [facility] LAB BLOOD ORDERABLES Final Res ult Performing Organization Address [facility] Co de Phone Number [facility] [address] [place] [phone] * Prothrombin Time-INR (11/01/2023 3:53 PM EDT) Prothrombin Time 12.3 11.1 - 13.3 SEC [facility] INTERNATIONAL NORM RATIO 1.0 0.9 - 1.1 [facility] Comment:INTERNATIONAL NORMAL IZED RATIO (INR) [...] EDT 11/01/2023 5:40 PM EDT us Rosalind STARKSP LAB BLOOD ORDERABLES Final Res ult Performing Organization Address City/[facility]/ZIP Co de Phone Number [facility] [address] [place], [place] [phone] * (ABNORMAL) Comprehensive Metabolic Panel (11/01/2023 3:53 PM EDT) Sodium 140 135 - 145 mmol/L [facility] Potassium 3.9 3.3 - 5.1 mmol/L [facility] Chloride 102 96 - 108 mmol/L [facility] Carbon Dioxide 30(H) 22 - 29 mmol/L [facility] Anion Gap 12 12 - 20 [facility] Urea Nitrogen (BUN) 22(H) 9 - 16 mg/dL [facility] Creatinine, Serum 1.64(H) 0.5 - 1.4 mg/dL [facility] Estimated Glomerular Filt Rate 32 [facility] Comment:NOTE: For -Am erican individuals, multiply the result by 1.210.Chronic Kidney Disease: Estimated GFR < 60 mL/min/1.69r5Aryxlp Kidney Disease: Estimated GFR < 15 mL/min/1.73m2 Glucose 237(H) 60 - 115 mg/dL [facility] Calcium 9.3 8.4 - 10.2 mg/dL [facility] Bilirubin, Total 0.3 0.0 - 1.0 mg/dL [facility] Aspartate Amino Transferase 20 5 - 31 U/L [facility] Alanine Aminotransferase 26 0 - 31 U/L [facility] Total Protein 6.8 6.5 - 8.0 g/dL [facility] Albumin Level 3.3(L) 3.5 - 5.0 g/dL [facility] Alkaline Phosphatase 135(H) 39 - 117 U/L [facility] Blood Venous blood specimen / Unknown 11/01/2023 3:53 PM EDT 11/01/2023 5:40 PM EDT Rosalind Cardoso [facility] LAB BLOOD ORDERABLES Final Res ult [facility] [address] [place] [phone] documented in this encounter Visit Diagnoses Diagnosis Type 2 diabetes mellitus with stage 3 chronic kidney disease, with long-term current use of insulin, unspecified whether stage 3a or 3b CKD ([facility]) Myalgia Unspecified myalgia and myositis documented in this encounter Additional Health Concerns Assessment Noted Time PHQ-9 Depression Total Score: 0 12/26/19 23 1:09 PM EDT documented as of this encounter Care Teams Peeler Operator Relationship Specialty Start Date End Date Rosalind Cardoso FNP [address] [place] [address] PCP - General Family Medicine 04/28/21 documented as of this encounter
--- OUTSIDE RECORDS SUMMARY | 2024-10-06 11:56 | XMS_ITS | Encounter Summary ---
Author Organization [employer] Address [address] [facility] [address] [place] [address] Care Team Providers Care Yarn Texturing Machine Operator Name Role Phone Rosalind Cardoso Primary Care Provider Encounter Details Date Type Department Care Team ([facility] st Contact Info) Description 04/24/2024 Orders Only [facility] [address] [place], [place] [phone] Rosalind Cardoso FNP [address] [place] [address] Type 2 diabetes mellitus with stage 3 [...] documented as of this encounter Care Teams Yarn Texturing Machine Operator Relationship Specialty Start Date End Date Rosalind Cardoso FNP [address] [place] [phone] PCP - General Family Medicine 04/28/21 documented as of this encounter
--- OUTSIDE RECORDS SUMMARY | 2024-10-06 11:56 | XMS_ITS | Clinical Summary ---
Author Organization [facility] Address [address] [facility] [address] [place] [address] Phone Care Team Providers Care Manager Of Photography Name Role Phone Rosalind Cardoso TAMY Primary Care Provider [phone] Allergies No known active allergies Medications aspirin [...] BKA performed by Dr. Borden 09/01/22 at [facility] -Indication: gangrene and ulcers of [...] & Plan: -Optometry: [facility] November 2021 -Dental: [facility] -Pap: reports last 2019 and believes results were normal, referred to UroGYN -Colorectal CA screening: iFOBT neg 12/18/21, due December 2022 -Mammogram: BIRADS 3 on 01/16/22, due Jul 2022 -Outstanding vaccines: influenza, Tdap, Shingrix, PCV20, COVID ?? [employer] Joint Builder Osi: plan to schedule follow up appts the following specialists: ?? [facility] Nephrology ?? [facility] ?? [facility] GI ?? [facility] Cards ?? [facility] UroGYN Generalized abdominal pain 06/20/2022 Overview (12/17/2022): [...] on patient's age to complete this topic Insurance [facility] ([id number]) [facility] ([id number]) Care Teams Manager Of Photography Relationship Specialty Start Date End Date Rosalind Cardoso FNP [address] [place], [place] [phone] PCP - General 11/12/23
--- OUTSIDE RECORDS SUMMARY | 2024-10-06 11:56 | XMS_ITS | Encounter Summary ---
Author Organization [employer] Address [address] [facility] [address] [place] [address] Care Team Providers Care Business Intelligence Consultant Name Role Phone Rosalind Cardoso Primary Care Provider [phone] Encounter Details Date Type Department Care Team ([facility] st Contact Info) Description 02/28/2024 Orders Only [facility] [address] [place], [place] [phone] Rosalind Cardoso FNP [address] [place] [address] Type 2 diabetes mellitus with stage 3 [...] documented as of this encounter Care Teams Business Intelligence Consultant Relationship Specialty Start Date End Date Rosalind Cardoso FNP [address] [place] [phone] PCP - General Family Medicine 04/28/21 documented as of this encounter
--- OUTSIDE RECORDS SUMMARY | 2024-10-06 11:56 | XMS_ITS | Encounter Summary ---
Author Organization [employer] Address [address] [facility] [address] [place] [address] Care Team Providers Care Allergy Nurse Name Role Phone Rosalind Cardoso Primary Care Provider [phone] Encounter Details Date Type Department Care Team (Late st Contact Info) Description 02/21/2024 Orders Only [facility] MEDICINE [address] [place] [address] Rosalind Cardoso FNP [address] [place] [address] Type 2 diabetes mellitus with stage 3 [...] documented as of this encounter Care Teams Allergy Nurse Relationship Specialty Start Date End Date Rosalind Cardoso FNP [address] [place] [phone] PCP - General Family Medicine 04/28/21 documented as of this encounter
--- OUTSIDE RECORDS SUMMARY | 2024-10-06 11:56 | XMS_ITS | Encounter Summary ---
Author Organization [employer] Address [address] [facility] 7t [place] [address] Care Team Providers Care Corsets Salesperson Name Role Phone Rosalind Cardoso Primary Care Provider [phone] Encounter Details Date Type Department Care Team (Late st Contact Info) Description 05/29/2024 Orders Only [facility] MEDICINE [address] [place] [address] Rosalind Cardoso FNP [address] [place] [address] Type 2 diabetes mellitus with stage 3 [...] 2:18 PM EST) Triglycerides 266(H) <150 mg/dL [facility] Comment:Desirable Triglyceri de: less than 150 mg/dLBorderline High Triglyceride 150-199 mg/dLHigh Triglyceride: 200-499 mg/dLVery High Triglyceride: greater than or equal to 5OO mg/dL Cholesterol 250(H) <200 mg/dL [facility] Comment:Desirable Cholestero l: less than 200 mg/dLBorderline High Cholesterol: 200-239 mg/dLHigh Cholesterol: greater than 239 mg/dL LDL Cholesterol Calculated 161(H) <100 mg/dL [facility] Comment:Desirable LDL: less than 100 mg/dLNear Optimal/Above Optimal LDL: 110- 129 mg/dLBorderline High LDL: 130-159 mg/dLHigh LDL: 160-189 mg/dLVery High LDL: greater than or equal to 190 mg/dL HDL Cholesterol 36(L) >40 mg/dL [facility] Comment:Desirable HDL: great er than 40 mg/dL Note: This HDL assay may give artificially low results in patients with liver disease. 05/29/2024 2:18 PM EST 05/29/2024 2:18 PM EST us Generic External Data Provider LAB BLOOD ORDERAB LES Final Result [facility] [address] [place] [phone] * (ABNORMAL) Comprehensive Metabolic Panel (05/29/2024 2:18 PM EST) Sodium 134(L) 135 - 145 mmol/L [facility] Potassium 4.0 3.3 - 5.1 mmol/L [facility] Chloride 99 96 - 108 mmol/L [facility] Carbon Dioxide 26 22 - 29 mmol/L [facility] Anion Gap 13 12 - 20 [facility] Urea Nitrogen (BUN) 41(H) 9 - 16 mg/dL [facility] Creatinine, Serum 1.49(H) 0.5 - 1.4 mg/dL [facility] Estimated Glomerular Filt Rate 36 [facility] Comment:Chronic Kidney Disea se: Estimated GFR < 60 mL/min/[id number] Kidney Disease: Estimated GFR < 15 mL/min/1.73m2 Glucose 370(HH) 60 - 115 mg/dL [facility] Comment:Critical value for t est(s): GLUR Results called to concepcion back by: KJ Gallegos Person calling: JOHNY Date:05/29/24Time:1558 Calcium 9.5 8.4 - 10.2 mg/dL [facility] Bilirubin, Total 0.3 0.0 - 1.0 mg/dL [facility] Aspartate Amino Transferase 65(H) 5 - 31 U/L [facility] Alanine Aminotransferase 64(H) 0 - 31 U/L [facility] Total Protein 6.9 6.5 - 8.0 g/dL [facility] Albumin Level 3.4(L) 3.5 - 5.0 g/dL [facility] Alkaline Phosphatase 146(H) 39 - 117 U/L [facility] 05/29/2024 2:18 PM EST 05/29/2024 2:18 PM EST us Generic External Data Provider LAB BLOOD ORDERAB LES Final Result [facility] [address] [place] [phone] * (ABNORMAL) CBC auto differential (05/29/2024 2:18 PM EST) White Blood Count 12.0(H) 4.8 - 10.8 X10*3/uL [facility] Red Blood Count 4.01(L) 4.20 - 5.50 X10*6/uL [facility] Hemoglobin 7.8(L) 12.0 - 16.0 g/dl [facility] Hematocrit 25.3(L) 37.0 - 47.0 % [facility] Mean Corpuscular Volume 63.1(L) 80.0 - 98.0 fL [facility] Mean Corpuscular Hemoglobin 19.5(L) 27.0 - 33.0 pg [facility] Mean Corpuscular HGB Conc 30.8(L) 31.0 - 35.0 g/dl [facility] Red Cell Distribution Width 15.3 11.0 - 16.0 % [facility] Platelet Count 312 160 - 400 X10*3/uL [facility] Mean Platelet Volume 10.4 9.4 - 12.3 fL [facility] Neutrophils Percent Auto 71.1 45 - 73 % [facility] Imm Gran Pct Auto 0.9(H) 0.0 - 0.4 % [facility] Lymphocytes Percent Auto 18.6(L) 20 - 40 % [facility] Monocytes Percent Auto 6.4 2 - 11 % [facility] Eosinophils Percent Auto 2.6 0 - 4 % [facility] Basophils Percent Auto 0.4 0 - 2 % [facility] NRBC Pct Auto 0.2 0.0 - 0.2 /100WBC [facility] Neutrophils Absolute Auto 8.6(H) 2.0 - 8.3 x10*3/uL [facility] Imm Gran Abs Auto 0.11(H) 0.00 - 0.03 X10*3/uL [facility] Lymphocytes Absolute Auto 2.2 1.2 - 4.9 X10*3/uL [facility] Monocytes Absolute Auto 0.8 0.1 - 1.2 X10*3/uL [facility] Eosinophils Absolute Auto 0.3 0.0 - 0.4 X10*3/uL [facility] Basophils Absolute Auto 0.1 0.0 - 0.2 X10*3/uL [facility] NRBC Abs Auto 0.020(H) 0.0 - 0.012 X10*3/uL [facility] 05/29/2024 2:18 PM EST 05/29/2024 2:18 PM EST us Generic External Data Provider LAB BLOOD ORDERAB LES Final Result [facility] [address] [place] [phone] [phone] documented in this encounter Visit Diagnoses Diagnosis Type 2 diabetes mellitus with stage 3 chronic kidney disease, with long-term current use of insulin, unspecified whether stage 3a or 3b CKD ([facility]) Myalgia Unspecified myalgia and myositis documented in this encounter Additional Health Concerns Assessment Noted Time PHQ-9 Depression Total Score: 0 12/26/19 23 1:09 PM EDT documented as of this encounter Care Teams Corsets Salesperson Relationship Specialty Start Date End Date Rosalind Cardoso FNP [address] [place] [address] PCP - General Family Medicine 04/28/21 documented as of this encounter
--- OUTSIDE RECORDS SUMMARY | 2024-10-06 11:56 | XMS_ITS | Encounter Summary ---
Author Organization [employer] Address 75 [facility] 7t [place] [address] Care Team Providers Care Center Medical Specialist Name Role Phone Rosalind Cardoso Primary Care Provider [phone] Encounter Details Date Type Department Care Team (Late st Contact Info) Description 04/03/2024 Orders Only [facility] MEDICINE [address] [place] [address] Rosalind Cardoso FNP [address] [place] [address] Type 2 diabetes mellitus with stage 3 [...] documented as of this encounter Care Teams Center Medical Specialist Relationship Specialty Start Date End Date Rosalind Cardoso FNP [address] [place] [address] PCP - General Family Medicine 04/28/21 documented as of this encounter
--- OUTSIDE RECORDS SUMMARY | 2024-10-06 11:56 | XMS_ITS | Encounter Summary ---
Author Organization [employer] Address [address] [facility] 7t [place] [address] Care Team Providers Care Therapy Aide Name Role Phone Rosalind Cardoso Primary Care Provider [phone] Encounter Details Date Type Department Care Team (Late st Contact Info) Description 03/20/2024 Orders Only [facility] MEDICINE [address] [place] [address] Rosalind Cardoso FNP [address] [place] [address] Type 2 diabetes mellitus with stage 3 [...] documented as of this encounter Care Teams Therapy Aide Relationship Specialty Start Date End Date Rosalind Cardoso FNP [address] [place] [address] PCP - General Family Medicine 04/28/21 documented as of this encounter
--- OUTSIDE RECORDS SUMMARY | 2024-10-06 11:56 | XMS_ITS | Encounter Summary ---
Author Organization [employer] Address [address] [facility] 7t [place] [address] Care Team Providers Care Vp Scientific Affairs Name Role Phone Rosalind Cardoso Primary Care Provider [phone] Encounter Details Date Type Department Care Team ([facility] st Contact Info) Description 01/17/2024 Orders Only [facility] MED & PEDS [address] [place], [place] [phone] Rosalind Cardoso FNP [address] [place] [address] Type 2 diabetes mellitus with stage 3 [...] Protein 0.36 < or = 0.50 mg/dL [facility] Blood Venous blood specimen / Unknown 01/17/2024 12:30 PM EDT 01/17/2024 12:30 PM EDT us Rosalind Cardoso TUBING OILER LAB BLOOD ORDERABLES Final Res ult Performing Organization Address City/[facility]/ZIP Co de Phone Number [facility] [address] [place] [address] [phone] * (ABNORMAL) Sed Rate by Modified [place]ren (01/17/2024 12:30 PM EDT) Erythrocyte Sedimentation Rate 36(H) 0 - 20 MM/HR [facility] Comment:Patients with polycy themia and many hemoglobin abnormalitiesmay have depressed sed rates whereas patients with anemiamay have elevated sed rates. Blood Venous blood specimen / Unknown 01/17/2024 12:30 PM EDT 01/17/2024 12:30 PM EDT us Rosalind Cardoso TUBING OILER LAB BLOOD ORDERABLES Final Res ult Performing Organization Address [facility] Co de Phone Number [facility] [address] [place] [address] [phone] documented in this encounter Visit Diagnoses Diagnosis Type 2 diabetes mellitus with stage 3 chronic kidney disease, with long-term current use of insulin, unspecified whether stage 3a or 3b CKD (CMS/HCC) Primary hypertension Unspecified essential hypertension Stage 3b chronic kidney disease ([facility]/HCC) 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 (CMS/HCC) documented in this encounter Additional Health Concerns Assessment Noted Time PHQ-9 Depression Total Score: 0 12/26/19 23 1:09 PM EDT documented as of this encounter Care Teams Vp Scientific Affairs Relationship Specialty Start Date End Date Rosalind Cardoso FNP [address] [place] [address] PCP - General Family Medicine 04/28/21 documented as of this encounter
--- OUTSIDE RECORDS SUMMARY | 2024-10-06 11:56 | XMS_ITS | Encounter Summary ---
Author Organization [employer] Address [address] [facility] 7t [place] [address] Care Team Providers Care Piano Player Name Role Phone Rosalind Cardoso Primary Care Provider [phone] Encounter Details Date Type Department Care Team ([facility] st Contact Info) Description 04/10/2024 Orders Only [facility]C MED & PEDS [address] [place], [place] [phone] Rosalind Cardoso FNP [address] [place] [address] Type 2 diabetes mellitus with stage 3 [...] documented as of this encounter Care Teams Piano Player Relationship Specialty Start Date End Date Rosalind Cardoso FNP [address] [place] [address] PCP - General Family Medicine 04/28/21 documented as of this encounter
--- OUTSIDE RECORDS SUMMARY | 2024-10-06 11:56 | XMS_ITS | Encounter Summary ---
Author Organization [employer] Address [address] [facility] 7t [place] [address] Care Team Providers Care Director Of Hotel Name Role Phone Rosalind Cardoso Primary Care Provider [phone] Encounter Details Date Type Department Care Team ([facility] st Contact Info) Description 05/22/2024 Orders Only [facility] MED & PEDS [address] [place], [place] [phone] Rosalind Cardoso FNP [address] [place] [address] Type 2 diabetes mellitus with stage 3 [...] mellitus with other specified complication, unspecified whether shelter insulin use (CMS/HCC); Fibromyalgia Social History Tobacco [...] unspecified whether stage 3a or 3b CKD ([facility]) Primary hypertension Unspecified essential hypertension Stage 3b chronic kidney disease ([facility]) 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 ([facility]) Low back pain at multiple sites Type 2 diabetes mellitus with hyperglycemia, with long-term current use of insulin ([facility]) Type 2 diabetes mellitus with foot ulcer, with long-term current use of insulin ([facility]) Pure hypercholesterolemia, unspecified Pain Generalized pain Type 2 diabetes mellitus with hyperglycemia ([facility]) Type 2 diabetes mellitus with other specified complication, unspecified whether shelter insulin use ([facility]) Fibromyalgia Unspecified myalgia and myositis documented in this encounter Additional Health Concerns Assessment Noted Time PHQ-9 Depression Total Score: 0 12/26/19 23 1:09 PM EDT documented as of this encounter Care Teams Director Of Hotel Relationship Specialty Start Date End Date Rosalind Cardoso FNP [address] [place] [phone] PCP - General Family Medicine 04/28/21 documented as of this encounter
--- OUTSIDE RECORDS SUMMARY | 2024-10-06 11:56 | XMS_ITS | Encounter Summary ---
Author Organization [employer] Address [address] [facility] 7t [place] [address] Care Team Providers Care County Sheriff Name Role Phone Rosalind Cardoso Primary Care Provider [phone] Encounter Details Date Type Department Care Team ([facility] st Contact Info) Description 05/08/2024 Orders Only [facility] CHC MED & PEDS [address] [place], [place] [phone] Rosalind Cardoso FNP [address] [place] [address] Type 2 diabetes mellitus with stage 3 [...] documented as of this encounter Care Teams County Sheriff Relationship Specialty Start Date End Date Rosalind Cardoso FNP [address] [place] [address] PCP - General Family Medicine 04/28/21 documented as of this encounter
--- OUTSIDE RECORDS SUMMARY | 2024-10-06 11:56 | XMS_ITS | Encounter Summary ---
Author Organization [employer] Address [address] [facility] 7t [place] [address] Care Team Providers Care Data Input Clerk Name Role Phone Rosalind Cardoso Primary Care Provider [phone] Encounter Details Date Type Department Care Team (Late st Contact Info) Description 03/06/2024 Orders Only [facility] MEDICINE [address] [place] [address] Rosalind Cardoso FNP [address] [place] [address] Type 2 diabetes mellitus with stage 3 [...] documented as of this encounter Care Teams Data Input Clerk Relationship Specialty Start Date End Date Rosalind Cardoso FNP [address] [place] [address] PCP - General Family Medicine 04/28/21 documented as of this encounter
--- OUTSIDE RECORDS SUMMARY | 2024-10-06 11:56 | XMS_ITS | Encounter Summary ---
Author Organization [employer] Address [address] [facility] 7t [place] [address] Care Team Providers Care Healthcare Science Specialist Name Role Phone Rosalind Cardoso Primary Care Provider [phone] Encounter Details Date Type Department Care Team (Late st Contact Info) Description 02/07/2024 Orders Only [facility] MEDICINE [address] [place] [address] Rosalind Cardoso FNP [address] [place] [address] Type 2 diabetes mellitus with stage 3 [...] documented as of this encounter Care Teams Healthcare Science Specialist Relationship Specialty Start Date End Date Rosalind Cardoso FNP [address] [place] [address] PCP - General Family Medicine 04/28/21 documented as of this encounter
--- OUTSIDE RECORDS SUMMARY | 2024-10-06 11:56 | XMS_ITS | Encounter Summary ---
Author Organization [employer] Address [address] [facility] 7t [place] [address] Care Team Providers Care Sales Support Specialist Name Role Phone Rosalind Cardoso Primary Care Provider [phone] Encounter Details Date Type Department Care Team ([facility] st Contact Info) Description 08/28/2024 Orders Only [facility] CHC MED & PEDS [address] [place], [place] [phone] Rosalind Cardoso FNP [address] [place] [address] Type 2 diabetes mellitus with stage 3 [...] as of this encounter Care Teams Sales Support Specialist Relationship Specialty Start Date End Date Rosalind Cardoso FNP [address] [place] [address] PCP - General Family Medicine 04/28/21 documented as of this encounter
--- OUTSIDE RECORDS SUMMARY | 2024-10-06 11:56 | XMS_ITS | Encounter Summary ---
Author Organization [employer] Address [address] [facility] 7t [place] [address] Care Team Providers Care Mathematician Name Role Phone Rosalind Cardoso Primary Care Provider [phone] Encounter Details Date Type Department Care Team (Late st Contact Info) Description 05/15/2024 Orders Only [facility] MEDICINE [address] [place] [address] Rosalind Cardoso FNP [address] [place] [address] Type 2 diabetes mellitus with stage 3 [...] documented as of this encounter Care Teams Mathematician Relationship Specialty Start Date End Date Rosalind Cardoso FNP [address] [place] [address] PCP - General Family Medicine 04/28/21 documented as of this encounter
--- OUTSIDE RECORDS SUMMARY | 2024-10-06 11:56 | XMS_ITS | Encounter Summary ---
Author Organization [employer] Address [address] [facility] 7t [place] [address] Care Team Providers Care Patent Attorney Name Role Phone Rosalind Cardoso Primary Care Provider [phone] Encounter Details Date Type Department Care Team (Late st Contact Info) Description 01/10/2024 Orders Only [facility] MEDICINE [address] [place] [address] Rosalind Cardoso FNP [address] [place] [address] Type 2 diabetes mellitus with stage 3 [...] unspecified whether stage 3a or 3b CKD ([facility]) Myalgia documented in this encounter Results * Prothrombin Time-INR (01/17/2024 12:30 PM EDT) Prothrombin Time 11.4 11.1 - 13.3 SEC [facility] INTERNATIONAL NORM RATIO 0.9 0.9 - 1.1 [facility] Comment:INTERNATIONAL NORMAL IZED RATIO (INR) [...] 01/17/2024 12:30 PM EDT us Rosalind Cardoso CHIEF DIVERSITY OFFICER LAB BLOOD ORDERABLES Final Res ult [facility] [address] [place] [address] [phone] documented in this encounter Visit Diagnoses [...] documented as of this encounter Care Teams Patent Attorney Relationship Specialty Start Date End Date Rosalind Cardoso FNP [address] [place] [address] PCP - General Family Medicine 04/28/21 documented as of this encounter
--- OUTSIDE RECORDS SUMMARY | 2024-10-06 11:56 | XMS_ITS | Encounter Summary ---
Author Organization [employer] Address [address] [facility] 7t [place] [address] Care Team Providers Care Fire Official Name Role Phone Rosalind Cardoso Primary Care Provider [phone] Encounter Details Date Type Department Care Team ([facility] st Contact Info) Description 12/20/2023 Orders Only [facility] CHC MED & PEDS [address] [place], [place] [phone] Rosalind Cardoso FNP [address] [place] [address] Type 2 diabetes mellitus with stage 3 [...] of left leg through tibia and fibula ([facility]/HCC) COMPREHENSIVE METABOLIC PANEL Routine 12/27/2023 9:33 AM EDT Type 2 diabetes mellitus with stage 3 chronic kidney disease, with long-term current use of insulin, unspecified whether stage 3a or 3b CKD (CMS/HCC) Primary hypertension Stage 3b chronic kidney disease (CMS/HCC) 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 ([facility]/HCC) documented in this encounter Results * C-reactive Protein (12/27/2023 9:33 AM EDT) Pathologist [facility] C Reactive Protein 0.46 < or = 0.50 mg/dL [facility] Blood Venous blood specimen / Unknown 12/27/2023 9:33 AM EDT 12/27/2023 9:33 AM EDT Rosalind Cardoso AUTOMOTIVE GLASS TECHNICIAN LAB BLOOD ORDERABLES Final Res ult Performing Organization Address [facility] Co de Phone Number [facility] [address] [place] [phone] * (ABNORMAL) Sed Rate by Modified Javierren (12/27/2023 9:33 AM EDT) Erythrocyte Sedimentation Rate 36(H) 0 - 20 MM/HR [facility] Comment:Patients with polycy themia and many hemoglobin abnormalitiesmay have depressed sed rates whereas patients with anemiamay have elevated sed rates. Blood Venous blood specimen / Unknown 12/27/2023 9:33 AM EDT 12/27/2023 9:33 AM EDT us Rosalind Phaledna AUTOMOTIVE GLASS TECHNICIAN LAB BLOOD ORDERABLES Final Res ult Performing Organization Address City/[facility] Co de Phone Number [facility] [address] [place] [address] [phone] * Magnesium (12/27/2023 9:33 AM EDT) Magnesium 2.2 1.6 - 2.6 mg/dL [facility] Blood Venous blood specimen / Unknown 12/27/2023 9:33 AM EDT 12/27/2023 9:33 AM EDT Rosalind Teoedna AUTOMOTIVE GLASS TECHNICIAN LAB BLOOD ORDERABLES Final Res ult [facility] [address] [place] [address] [phone] * (ABNORMAL) Comprehensive Metabolic Panel (12/27/2023 9:33 AM EDT) Pathologist [facility] Sodium 141 135 - 145 mmol/L [facility] Potassium 3.8 3.3 - 5.1 mmol/L [facility] Chloride 105 96 - 108 mmol/L [facility] Carbon Dioxide 28 22 - 29 mmol/L [facility] Anion Gap 12 12 - 20 [facility] Urea Nitrogen (BUN) 28(H) 9 - 16 mg/dL [facility] Creatinine, Serum 1.18 0.5 - 1.4 mg/dL [facility] Estimated Glomerular Filt Rate 47 [facility] Comment:NOTE: For -Am erican individuals, multiply the result by 1.210.Chronic Kidney Disease: Estimated GFR < 60 mL/min/[id number] Kidney Disease: Estimated GFR < 15 mL/min/1.73m2 Glucose 206(H) 60 - 115 mg/dL [facility] Calcium 9.3 8.4 - 10.2 mg/dL [facility] Bilirubin, Total 0.3 0.0 - 1.0 mg/dL [facility] Aspartate Amino Transferase 16 5 - 31 U/L [facility] Alanine Aminotransferase 22 0 - 31 U/L [facility] Total Protein 6.8 6.5 - 8.0 g/dL [facility] Albumin Level 3.5 3.5 - 5.0 g/dL [facility] Alkaline Phosphatase 88 39 - 117 U/L [facility] Blood Venous blood specimen / Unknown 12/27/2023 9:33 AM EDT 12/27/2023 9:33 AM EDT us Rosalind Cardoso AUTOMOTIVE GLASS TECHNICIAN LAB BLOOD ORDERABLES Final Res ult [facility] [address] [place] [address] [phone] * (ABNORMAL) CBC auto differential (12/27/2023 9:33 AM EDT) White Blood Count 9.2 4.8 - 10.8 X10*3/uL [facility] Red Blood Count 5.36 4.20 - 5.50 X10*6/uL [facility] Hemoglobin 10.1(L) 12.0 - 16.0 g/dl [facility] Hematocrit 32.8(L) 37.0 - 47.0 % [facility] Mean Corpuscular Volume 61.2(L) 80.0 - 98.0 fL [facility] Mean Corpuscular Hemoglobin 18.8(L) 27.0 - 33.0 pg [facility] Mean Corpuscular HGB Conc 30.8(L) 31.0 - 35.0 g/dl [facility] Red Cell Distribution Width 17.0(H) 11.0 - 16.0 % [facility] Platelet Count 292 160 - 400 X10*3/uL [facility] Mean Platelet Volume 11.0 9.4 - 12.3 fL [facility] Neutrophils Percent Auto 59.0 45 - 73 % [facility] Imm Gran Pct Auto 0.3 0.0 - 0.4 % [facility] Lymphocytes Percent Auto 28.1 20 - 40 % [facility] Monocytes Percent Auto 8.8 2 - 11 % [facility] Eosinophils Percent Auto 3.1 0 - 4 % [facility] Basophils Percent Auto 0.7 0 - 2 % [facility] NRBC Pct Auto 0.0 0.0 - 0.2 /100WBC [facility] Neutrophils Absolute Auto 5.4 2.0 - 8.3 x10*3/uL [facility] Imm Gran Abs Auto 0.03 0.00 - 0.03 X10*3/uL [facility] Lymphocytes Absolute Auto 2.6 1.2 - 4.9 X10*3/uL [facility] Monocytes Absolute Auto 0.8 0.1 - 1.2 X10*3/uL [facility] Eosinophils Absolute Auto 0.3 0.0 - 0.4 X10*3/uL [facility] Basophils Absolute Auto 0.1 0.0 - 0.2 X10*3/uL [facility] NRBC Abs Auto 0.000 0.0 - 0.012 X10*3/uL [facility] Blood Venous blood specimen / Unknown 12/27/2023 9:33 AM EDT 12/27/2023 9:33 AM EDT us Rosalind MORELOS LAB BLOOD ORDERABLES Final Res ult [facility] [address] [place] [phone] documented in this encounter Visit Diagnoses [...] documented as of this encounter Care Teams Fire Official Relationship Specialty Start Date End Date Rosalind Cardoso FNP [address] [place] [address] PCP - General Family Medicine 04/28/21 documented as of this encounter
--- OUTSIDE RECORDS SUMMARY | 2024-10-06 11:56 | XMS_ITS | Encounter Summary ---
Author Organization [employer] Address [address] [facility] [address]t [place] [address] Care Team Providers Care Rigger Name Role Phone Rosalind Cardoso Primary Care Provider [phone] Encounter Details Date Type Department Care Team ([facility] st Contact Info) Description 01/31/2024 Orders Only [facility] CHC MED & PEDS [address] [place], [place] [phone] Rosalind Cardoso FNP [address] [place] [address] Type 2 diabetes mellitus with stage 3 [...] whether stage 3a or 3b CKD ([facility]) Primary hypertension Stage 3b chronic kidney disease ([facility]) 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 ([facility]) documented in this encounter Results * (ABNORMAL) Sed Rate by Modified Westergren (05/29/2024 2:18 PM EST) Erythrocyte Sedimentation Rate 71(H) 0 - 20 MM/HR [facility] Comment:Patients with polycy themia and many hemoglobin abnormalitiesmay have depressed sed rates whereas patients with anemiamay have elevated sed rates. 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
--- OUTSIDE RECORDS SUMMARY | 2024-10-06 11:56 | XMS_ITS | Encounter Summary ---
Author Organization [employer] Address [address] [facility] 7t [place] [address] Care Team Providers Care Masking Machine Operator Name Role Phone Rosalind Cardoso Primary Care Provider [phone] Encounter Details Date Type Department Care Team ([facility] st Contact Info) Description 12/27/2022 Abstract [facility] MEDICINE [address] [place] [address] Rosalind Cardoso FNP [address] [place] [address] Social History Tobacco Use Types Packs/Day Years [...] Procedure Name Priority Date/Time Associated Diagnosis Comments HM MAMMOGRAPHY Routine 11/23/2022 2:56 PM EDT documented in this encounter Results * Mammography (11/23/2022 2:56 PM EDT) Mammogram Birads 1 Anatomical Region Laterality Modality Other Narrative 11/23/2022 2:56 PM EDT Recommended routine annual screening us Historical Provider HEALTH MAINTENANCE Final Result documented in this encounter Visit Diagnoses Not on filedocumented in this encounter Additional Health Concerns Assessment Noted Time PHQ-9 Depression Total Score: 0 12/26/19 23 1:09 PM EDT documented as of this encounter Care Teams Masking Machine Operator Relationship Specialty Start Date End Date Rosalind Cardoso FNP [address] [place] [phone] PCP - General Family Medicine 04/28/21 documented as of this encounter
--- OUTSIDE RECORDS SUMMARY | 2024-10-06 11:56 | XMS_ITS | Encounter Summary ---
Author Organization [employer] Address [address] [facility] 7t [place] [address] Care Team Providers Care Business Development Associate Name Role Phone Rosalind Cardoso Primary Care Provider [phone] Encounter Details Date Type Department Care Team (Late st Contact Info) Description 08/07/2024 Orders Only [facility] MEDICINE [address] [place] [address] Rosalind Cardoso FNP [address] [place], [place] [phone] Type 2 diabetes mellitus with stage 3 [...] Date/Time Associated Diagnosis Comments PROTHROMBIN TIME-INR Routine 10/02/2024 3:12 PM EDT Type 2 diabetes mellitus with stage 3 chronic kidney disease, with long-term current use of insulin, unspecified whether stage 3a or 3b CKD ([facility]) Myalgia documented in this encounter Results * (ABNORMAL) Prothrombin Time-INR (10/02/2024 3:12 PM EDT) Prothrombin Time 10.5(L) 10.9 - 12.4 SEC [facility] INTERNATIONAL NORM RATIO 0.9 0.9 - 1.1 [facility] Comment:INTERNATIONAL NORMAL IZED RATIO [...] 3.5 Blood Venous blood specimen / Unknown 10/02/2024 3:12 PM EDT 10/02/2024 3:12 PM EDT us Rosalind MORELOS LAB BLOOD ORDERABLES Final Res ult [facility] [address] [place] [phone] [phone] documented in this encounter Visit Diagnoses [...] as of this encounter Care Teams Business Development Associate Relationship Specialty Start Date End Date Rosalind Cardoso FNP [address] [place] [phone] PCP - General Family Medicine 04/28/21 documented as of this encounter
--- OUTSIDE RECORDS SUMMARY | 2024-10-06 11:56 | XMS_ITS | Encounter Summary ---
Author Organization [employer] Address [address] [facility] 7t [place] [address] Care Team Providers Care Operations Lieutenant Name Role Phone Rosalind Cardoso Primary Care Provider [phone] Encounter Details Date Type Department Care Team ([facility] st Contact Info) Description 06/05/2024 Orders Only [facility] CHC MED & PEDS [address] [place], [place] [phone] Rosalind Cardoso FNP [address] [place] [address] Type 2 diabetes mellitus with stage 3 [...] stage 3a or 3b CKD ([facility]/HCC) Primary hypertension Stage 3b chronic kidney disease ([facility]/HCC) 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 ([facility]/HCC) documented in this encounter Results * Prothrombin Time-INR (06/08/2024 9:25 AM EST) Prothrombin Time 11.7 10.9 - 12.4 SEC [facility] INTERNATIONAL NORM RATIO 1.0 0.9 - 1.1 [facility] Comment:INTERNATIONAL NORMAL IZED RATIO (INR) [...] EST 06/08/2024 9:25 AM EST Rosalind Cardoso [facility] BLOOD ORDERABLES Final Res ult Performing Organization Address [facility] Co de Phone Number [facility] [address] [place] [phone] * (ABNORMAL) C-reactive Protein (06/08/2024 9:25 AM EST) C Reactive Protein 1.04(H) < or = 0.50 mg/dL [facility] Blood Venous blood specimen / Unknown 06/08/2024 9:25 AM EST 06/08/2024 9:25 AM EST Rosalind Cardoso SEROLOGY TECHNICIAN LAB BLOOD ORDERABLES Final Res ult Performing Organization Address City/[facility]/ZIP Co de Phone Number [facility] [address] [place] [phone] * (ABNORMAL) Sed Rate by Modified Westergren (06/08/2024 9:25 AM EST) Erythrocyte Sedimentation Rate 54(H) 0 - 20 MM/HR [facility] Comment:Patients with polycy themia and many hemoglobin abnormalitiesmay have depressed sed rates whereas patients with anemiamay have elevated sed rates. Blood Venous blood specimen / Unknown 06/08/2024 9:25 AM EST 06/08/2024 9:25 AM EST Rosalind Cardoso SEROLOGY TECHNICIAN LAB BLOOD ORDERABLES Final Res ult Performing Organization Address City/[facility]/ZIP Co de Phone Number [facility] [address] [place] [phone] * Magnesium (06/08/2024 9:25 AM EST) Pathologist [facility] Magnesium 1.9 1.6 - 2.6 mg/dL [facility] Blood Venous blood specimen / Unknown 06/08/2024 9:25 AM EST 06/08/2024 9:25 AM EST Rosalind Cardoso [facility] BLOOD ORDERABLES Final Res ult Performing Organization Address City/[facility]/ZIP Co de Phone Number [facility] [address] [place] [phone] documented in this encounter Visit Diagnoses [...] documented as of this encounter Care Teams Operations Lieutenant Relationship Specialty Start Date End Date Rosalind Cardoso FNP [address] [place] [phone] PCP - General Family Medicine 04/28/21 documented as of this encounter
--- OUTSIDE RECORDS SUMMARY | 2024-10-06 11:56 | XMS_ITS | Encounter Summary ---
Author Organization [employer] Address [address] [facility] 7t [place] [address] Care Team Providers Care Bilingual Customer Service Name Role Phone Rosalind Cardoso Primary Care Provider [phone] Encounter Details Date Type Department Care Team (Late st Contact Info) Description 08/21/2024 Orders Only [facility] MEDICINE [address] [place] [address] Rosalind Cardoso FNP [address] [place], [place] [phone] Type 2 diabetes mellitus with stage 3 [...] documented as of this encounter Care Teams Bilingual Customer Service Relationship Specialty Start Date End Date Rosalind Cardoso FNP [address] [place] [address] PCP - General Family Medicine 04/28/21 documented as of this encounter
--- OUTSIDE RECORDS SUMMARY | 2024-10-06 11:56 | XMS_ITS | Encounter Summary ---
Author Organization [employer] Address [address] [facility] 7t [place] [address] Care Team Providers Care Manager Hiv Name Role Phone Rosalind Cardoso Primary Care Provider [phone] Encounter Details Date Type Department Care Team ([facility] st Contact Info) Description 08/14/2024 Orders Only [facility] CHC MED & PEDS [address] [place], [place] [phone] Rosalind Cardoso FNP [address] [place] [address] Type 2 diabetes mellitus with stage 3 [...] as of this encounter Care Teams Manager Hiv Relationship Specialty Start Date End Date Rosalind Cardoso FNP [address] [place] [phone] PCP - General Family Medicine 04/28/21 documented as of this encounter
--- OUTSIDE RECORDS SUMMARY | 2024-10-06 11:56 | XMS_ITS | Encounter Summary ---
Author Organization [employer] Address [address] [facility] 7t [place] [address] Care Team Providers Care Gas Turbine Powerplant Mechanic Helper Name Role Phone Rosalind Cardoso Primary Care Provider [phone] Encounter Details Date Type Department Care Team ([facility] st Contact Info) Description 01/03/2024 Orders Only [facility] CHC MED & PEDS [address] [place], [place] [phone] Rosalind Cardoso FNP [address] [place] [address] Type 2 diabetes mellitus with stage 3 [...] (CMS/HCC) documented in this encounter Results * Magnesium (01/17/2024 12:30 PM EDT) Magnesium 2.4 1.6 - 2.6 mg/dL [facility] Blood Venous blood specimen / Unknown 01/17/2024 12:30 PM EDT 01/17/2024 12:30 PM EDT us Rosalind Cardoso MOCK UP ASSEMBLER LAB BLOOD ORDERABLES Final Res ult [facility] [address] [place] [address] [phone] * (ABNORMAL) Comprehensive Metabolic Panel (01/17/2024 12:30 PM EDT) Pathologist [facility] Sodium 141 135 - 145 mmol/L [facility] Potassium 4.2 3.3 - 5.1 mmol/L [facility] Chloride 106 96 - 108 mmol/L [facility] Carbon Dioxide 26 22 - 29 mmol/L [facility] Anion Gap 13 12 - 20 [facility] Urea Nitrogen (BUN) 30(H) 9 - 16 mg/dL [facility] Creatinine, Serum 1.24 0.5 - 1.4 mg/dL [facility] Estimated Glomerular Filt Rate 44 [facility] Comment:NOTE: For -Am erican individuals, multiply the result by 1.210.Chronic Kidney Disease: Estimated GFR < 60 mL/min/1.10o9Ypacpi Kidney Disease: Estimated GFR < 15 mL/min/1.73m2 Glucose 165(H) 60 - 115 mg/dL [facility] Calcium 9.7 8.4 - 10.2 mg/dL [facility] Bilirubin, Total 0.4 0.0 - 1.0 mg/dL [facility] Aspartate Amino Transferase 14 5 - 31 U/L [facility] Alanine Aminotransferase 14 0 - 31 U/L [facility] Total Protein 6.8 6.5 - 8.0 g/dL [facility] Albumin Level 3.5 3.5 - 5.0 g/dL [facility] Alkaline Phosphatase 79 39 - 117 U/L [facility] Blood Venous blood specimen / Unknown 01/17/2024 12:30 PM EDT 01/17/2024 12:30 PM EDT Rosalind Cardoso MOCK UP ASSEMBLER LAB BLOOD ORDERABLES Final Res ult [facility] [address] [place] [phone] [phone] * (ABNORMAL) CBC auto differential (01/17/2024 12:30 PM EDT) White Blood Count 8.3 4.8 - 10.8 X10*3/uL [facility] Red Blood Count 4.91 4.20 - 5.50 X10*6/uL [facility] Hemoglobin 9.4(L) 12.0 - 16.0 g/dl [facility] Hematocrit 30.6(L) 37.0 - 47.0 % [facility] Mean Corpuscular Volume 62.3(L) 80.0 - 98.0 fL [facility] Mean Corpuscular Hemoglobin 19.1(L) 27.0 - 33.0 pg [facility] Mean Corpuscular HGB Conc 30.7(L) 31.0 - 35.0 g/dl [facility] Red Cell Distribution Width 20.2(H) 11.0 - 16.0 % [facility] Platelet Count 302 160 - 400 X10*3/uL [facility] Mean Platelet Volume 10.6 9.4 - 12.3 fL [facility] Neutrophils Percent Auto 64.0 45 - 73 % [facility] Imm Gran Pct Auto 0.5(H) 0.0 - 0.4 % [facility] Lymphocytes Percent Auto 24.0 20 - 40 % [facility] Monocytes Percent Auto 8.2 2 - 11 % [facility] Eosinophils Percent Auto 2.9 0 - 4 % [facility] Basophils Percent Auto 0.4 0 - 2 % [facility] NRBC Pct Auto 0.0 0.0 - 0.2 /100WBC [facility] Neutrophils Absolute Auto 5.3 2.0 - 8.3 x10*3/uL [facility] Imm Gran Abs Auto 0.04(H) 0.00 - 0.03 X10*3/uL [facility] Lymphocytes Absolute Auto 2.0 1.2 - 4.9 X10*3/uL [facility] Monocytes Absolute Auto 0.7 0.1 - 1.2 X10*3/uL [facility] Eosinophils Absolute Auto 0.2 0.0 - 0.4 X10*3/uL [facility] Basophils Absolute Auto 0.0 0.0 - 0.2 X10*3/uL [facility] NRBC Abs Auto 0.000 0.0 - 0.012 X10*3/uL [facility] Blood Venous blood specimen / Unknown 01/17/2024 12:30 PM EDT 01/17/2024 12:30 PM EDT us Rosalind MORELOS LAB BLOOD ORDERABLES Final Res ult [facility] [address] [place] [phone] [phone] documented in this encounter Visit Diagnoses [...] documented as of this encounter Care Teams Gas Turbine Powerplant Mechanic Helper Relationship Specialty Start Date End Date Rosalind Cardoso FNP [address] [place] [address] PCP - General Family Medicine 04/28/21 documented as of this encounter
--- OUTSIDE RECORDS SUMMARY | 2024-10-06 11:56 | XMS_ITS | Encounter Summary ---
Author Organization [employer] Address [address] [facility] 7t [place] [address] Care Team Providers Care Treasury Representative Name Role Phone Rosalind Cardoso Primary Care Provider [phone] Encounter Details Date Type Department Care Team ([facility] st Contact Info) Description 03/27/[address] [facility] CHC MED & PEDS [address] [place], [place] [phone] Rosalind Cardoso FNP [address] [place] [address] Type 2 diabetes mellitus with stage 3 [...] documented as of this encounter Care Teams Treasury Representative Relationship Specialty Start Date End Date Rosalind Cardoso FNP [address] [place] [phone] PCP - General Family Medicine 04/28/21 documented as of this encounter
--- OUTSIDE RECORDS SUMMARY | 2024-10-06 11:56 | XMS_ITS | Encounter Summary ---
Author Organization [employer] Address 75 [facility] 7t [place] [address] Care Team Providers Care Director Of Land Acquisition Name Role Phone Rosalind Cardoso Primary Care Provider [phone] Reason for Visit * Reason Onset Date Comments Durable Medical Equipment 12/06/2022 Encounter Details Date Type Department Care Team (Late st Contact Info) Description 12/06/2022 Telephone [facility] MEDICINE [address] [place] [address] Rosalind Cardoso FNP [address] [place] [address] Durable Medical Equipment Social History Tobacco Use [...] For more clarification, please contact pt at [phone] documented in this encounter Plan of Treatment Not on file documented as of this encounter Visit Diagnoses Not on filedocumented in this encounter Care Teams Director Of Land Acquisition Relationship Specialty Start Date End Date Rosalind Cardoso FNP [address] [place] [address] PCP - General Family Medicine 04/28/21 documented as of this encounter
--- OUTSIDE RECORDS SUMMARY | 2024-10-06 11:56 | XMS_ITS | Encounter Summary ---
Author Organization [employer] Address 75 [facility] 7t [place] [address] Care Team Providers Care Orthodontic Band Maker Name Role Phone Rosalind Cardoso Primary Care Provider Encounter Details Date Type Department Care Team ([facility] st Contact Info) Description 02/14/2024 Orders Only [facility] CHC MED & PEDS [address] [place], [place] [phone] Rosalind Cardoso FNP [address] [place] [address] Type 2 diabetes mellitus with stage 3 [...] documented as of this encounter Care Teams Orthodontic Band Maker Relationship Specialty Start Date End Date Rosalind Cardoso FNP [address] [place] [address] PCP - General Family Medicine 04/28/21 documented as of this encounter
--- OUTSIDE RECORDS SUMMARY | 2024-10-06 11:56 | XMS_ITS | Encounter Summary ---
Author Organization [employer] Address 75 [facility] 7t [place] [address] Care Team Providers Care Rug Touch Up Painter Name Role Phone Rosalind Cardoso Primary Care Provider [phone] Encounter Details Date Type Department Care Team (Late st Contact Info) Description 01/24/2024 Orders Only [facility] MEDICINE [address] [place] [address] Rosalind Cardoso FNP [address] [place] [address] Type 2 diabetes mellitus with stage 3 [...] or 3b CKD (CMS/HCC) Myalgia MAGNESIUM Routine 05/29/2024 2:18 PM EST Type 2 diabetes mellitus with stage 3 chronic kidney disease, with long-term current use of insulin, unspecified whether stage 3a or 3b CKD (CMS/HCC) Myalgia documented in this encounter Results * Magnesium (05/29/2024 2:18 PM EST) Magnesium 2.0 1.6 - 2.6 mg/dL [facility] Blood Venous blood specimen / Unknown 05/29/2024 2:18 PM EST 05/29/2024 2:18 PM EST us Rosalind Cardoso [facility] LAB BLOOD ORDERABLES Final Res ult [facility] [address] [place] [phone] * Prothrombin Time-INR (05/29/2024 2:18 PM EST) Prothrombin Time 11.1 10.9 - 12.4 SEC [facility] INTERNATIONAL NORM RATIO 1.0 0.9 - 1.1 [facility] Comment:INTERNATIONAL NORMAL IZED RATIO (INR) REFERENCE [...] MORELOS LAB BLOOD ORDERABLES Final Res ult [facility] [address] [place] [address] [phone] documented in this encounter Visit Diagnoses [...] as of this encounter Care Teams Rug Touch Up Painter Relationship Specialty Start Date End Date Rosalind Cardoso FNP [address] [place] [address] PCP - General Family Medicine 04/28/21 documented as of this encounter
--- OUTSIDE RECORDS SUMMARY | 2024-10-06 11:56 | XMS_ITS | Encounter Summary ---
Author Organization [employer] Address [address] [place] [address] [place] [address] Care Team Providers Care Principal Database Developer Name Role Phone Rosalind Cardoso RAW STOCK MACHINE LOADER Primary Care Provider [phone] Reason for Visit * Reason Comments Med Refill Encounter Details Date Type Department Care Team (Late st Contact Info) Description 01/13/[address] [facility] CHC MED & PEDS [address] [place] [address] Saba Garcia FNP [address] [place] [address] Dept [place] [address] Type 2 diabetes mellitus with hyperglycemia (CMS/HCC) [...] documented as of this encounter Care Teams Principal Database Developer Relationship Specialty Start Date End Date Rosalind Cardoso FNP [address] [place] [address] PCP - General Family Medicine 04/28/21 documented as of this encounter
--- OUTSIDE RECORDS SUMMARY | 2024-10-06 11:56 | XMS_ITS | Encounter Summary ---
Author Organization [employer] Address 75 [facility] 7t [place] [address] Care Team Providers Care Silver Designer Name Role Phone Rosalind Cardoso Primary Care Provider [phone] Encounter Details Date Type Department Care Team ([facility] st Contact Info) Description 03/13/[address] [facility] CHC MED & PEDS 505 [place], [place] [phone] Rosalind Cardoso FNP 505 [place] [address] Type 2 diabetes mellitus with stage 3 [...] Primary hypertension Stage 3b chronic kidney disease ([facility]/HCC) 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 ([facility]/HCC) documented in this encounter Results * (ABNORMAL) C-reactive Protein (05/29/2024 2:18 PM EST) C Reactive Protein 1.25(H) < or = 0.50 mg/dL [facility] Blood Venous blood specimen / Unknown 05/29/2024 2:18 PM EST 05/29/2024 2:18 PM EST us Rosalind Cardoso MEDICAL DIRECTOR LAB BLOOD ORDERABLES Final Res ult [facility] [address] [place] [address] [phone] documented in this encounter Visit Diagnoses [...] documented as of this encounter Care Teams Silver Designer Relationship Specialty Start Date End Date Rosalind Cardoso FNP [address] [place] [address] PCP - General Family Medicine 04/28/21 documented as of this encounter
--- OUTSIDE RECORDS SUMMARY | 2024-10-06 11:56 | XMS_ITS | Encounter Summary ---
Author Organization [employer] Address 75 [facility] 7t [place] [address] Care Team Providers Care Video Operator Name Role Phone Rosalind Cardoso Primary Care Provider [phone] Encounter Details Date Type Department Care Team (Late st Contact Info) Description 05/01/2024 Orders Only [facility] MEDICINE [address] [place] [address] Rosalind Cardoso FNP [address] [place] [address] Type 2 diabetes mellitus with stage 3 [...] documented as of this encounter Care Teams Video Operator Relationship Specialty Start Date End Date Rosalind Cardoso FNP [address] [place] [phone] PCP - General Family Medicine 04/28/21 documented as of this encounter
--- OUTSIDE RECORDS SUMMARY | 2024-10-06 11:56 | XMS_ITS | Encounter Summary ---
Author Organization [employer] Address 75 [facility] 7t [place] [address] Care Team Providers Care Plane Tableman Name Role Phone Rosalind Cardoso Primary Care Provider [phone] Encounter Details Date Type Department Care Team (Late st Contact Info) Description 04/17/2024 Orders Only [facility] MEDICINE [address] [place] [address] Rosalind Cardoso FNP [address] [place] [address] Type 2 diabetes mellitus with stage 3 [...] documented as of this encounter Care Teams Plane Tableman Relationship Specialty Start Date End Date Rosalind Cardoso FNP [address] [place] [address] PCP - General Family Medicine 04/28/21 documented as of this encounter
--- OUTSIDE RECORDS SUMMARY | 2024-10-06 11:57 | XMS_ITS | Encounter Summary ---
Author Organization [employer] Address 75 [facility] 7t [place] [address] Care Team Providers Care Roofing Apprentice Name Role Phone Rosalind Cardoso TAMY Primary Care Provider [phone] Encounter Details Date Type Department Care Team ([facility] st Contact Info) Description 10/06/2024 Orders Only GENERIC EXTERNAL DATA DEPARTMENT Provider, Generic External Data Social History Tobacco Use Types Packs/Day Years [...] Diagnosis Comments CBC WITH AUTO DIFFERENTIAL Routine 10/06/2024 10:27 AM EDT documented in this encounter Results * (ABNORMAL) CBC auto differential (10/06/2024 10:27 AM EDT) White Blood Count 9.0 4.8 - 10.8 X10*3/uL [facility] Red Blood Count 4.55 4.20 - 5.50 X10*6/uL [facility] Hemoglobin 8.6(L) 12.0 - 16.0 g/dl [facility] Hematocrit 27.5(L) 37.0 - 47.0 % [facility] Mean Corpuscular Volume 60.4(L) 80.0 - 98.0 fL [facility] Mean Corpuscular Hemoglobin 18.9(L) 27.0 - 33.0 pg [facility] Mean Corpuscular HGB Conc 31.3 31.0 - 35.0 g/dl [facility] Red Cell Distribution Width 17.9(H) 11.0 - 16.0 % [facility] Platelet Count 343 160 - 400 X10*3/uL [facility] Mean Platelet Volume 10.0 9.4 - 12.3 fL [facility] Neutrophils Percent Auto 53.7 45 - 73 % [facility] Imm Gran Pct Auto 0.4 0.0 - 0.4 % [facility] Lymphocytes Percent Auto 34.5 20 - 40 % [facility] Monocytes Percent Auto 7.0 2 - 11 % [facility] Eosinophils Percent Auto 3.7 0 - 4 % [facility] Basophils Percent Auto 0.7 0 - 2 % [facility] NRBC Pct Auto 0.0 0.0 - 0.2 /100WBC [facility] Neutrophils Absolute Auto 4.9 2.0 - 8.3 x10*3/uL [facility] Imm Gran Abs Auto 0.04(H) 0.00 - 0.03 X10*3/uL [facility] Lymphocytes Absolute Auto 3.1 1.2 - 4.9 X10*3/uL [facility] Monocytes Absolute Auto 0.6 0.1 - 1.2 X10*3/uL [facility] Eosinophils Absolute Auto 0.3 0.0 - 0.4 X10*3/uL [facility] Basophils Absolute Auto 0.1 0.0 - 0.2 X10*3/uL [facility] NRBC Abs Auto 0.000 0.0 - 0.012 X10*3/uL [facility] 10/06/2024 10:2 7 AM EDT 10/06/2024 10:27 AM EDT us Generic External Data Provider LAB BLOOD ORDERAB LES Final Result Performing Organization Address City/State/[facility] Co de Phone Number [facility] [address] [place] [address] [phone] documented in this encounter Visit Diagnoses Not on filedocumented in this encounter Additional Health Concerns Assessment Noted Time PHQ-9 Depression Total Score: 6 08/03/19 25 9:07 AM EST documented as of this encounter Care Teams Roofing Apprentice Relationship Specialty Start Date End Date Rosalind Cardoso FNP [address] [place] [address] PCP - General Family Medicine 04/28/21 documented as of this encounter
--- OUTSIDE RECORDS SUMMARY | 2024-10-06 11:57 | XMS_ITS | Encounter Summary ---
Author Organization [employer] Address 75 [facility] 7t [place] [address] Care Team Providers Care Wash Plant Operator Name Role Phone Rosalind Cardoso Primary Care Provider [phone] Encounter Details Date Type Department Care Team (Late st Contact Info) Description 06/12/2024 Orders Only [facility] MEDICINE [address] [place] [address] Rosalind Cardoso FNP [address] [place] [address] Type 2 diabetes mellitus with stage 3 [...] unspecified whether stage 3a or 3b CKD (CMS/[facility]) Myalgia MAGNESIUM Routine 06/23/2024 10:31 AM EST Type 2 diabetes mellitus with stage 3 chronic kidney disease, with long-term current use of insulin, unspecified whether stage 3a or 3b CKD (CMS/HCC) Myalgia documented in this encounter Results * C-reactive Protein (06/23/2024 10:31 AM EST) C Reactive Protein 0.50 < or = 0.50 mg/dL [facility] Blood Venous blood specimen / Unknown 06/23/2024 10:31 AM EST 06/23/2024 10:31 AM EST us Rosalind Cardoso CHEMICAL DEPENDENCY ATTENDANT LAB BLOOD ORDERABLES Final Res ult [facility] [address] [place] [phone] * Magnesium (06/23/2024 10:31 AM EST) Magnesium 1.8 1.6 - 2.6 mg/dL [facility] Blood Venous blood specimen / Unknown 06/23/2024 10:31 AM EST 06/23/2024 10:31 AM EST us Rosalind MORELOS LAB BLOOD ORDERABLES Final Res ult [facility] [address] [place] [address] [phone] documented in this encounter Visit Diagnoses [...] documented as of this encounter Care Teams Wash Plant Operator Relationship Specialty Start Date End Date Rosalind Cardoso FNP [address] [place] [address] PCP - General Family Medicine 04/28/21 documented as of this encounter
--- OUTSIDE RECORDS SUMMARY | 2024-10-06 11:57 | XMS_ITS | Encounter Summary ---
Author Organization [employer] Address 75 [facility] 7t [place] [address] Care Team Providers Care [place] Rafting Guide Name Role Phone Rosalind Cardoso Primary Care Provider [phone] Encounter Details Date Type Department Care Team ([facility] st Contact Info) Description 06/25/2023 Telephone [facility] MEDICINE [address] [place] [address] Rosalind Cardoso FNP [address] [place] [address] Social History Tobacco Use Types Packs/Day Years [...] documented as of this encounter Care Teams [place] Rafting Guide Relationship Specialty Start Date End Date Rosalind Cardoso FNP [address] [place] [address] PCP - General Family Medicine 04/28/21 documented as of this encounter
--- OUTSIDE RECORDS SUMMARY | 2024-10-06 11:57 | XMS_ITS | Encounter Summary ---
Author Organization [employer] Address 75 [facility] 7t [place] [address] Care Team Providers Care Internet Cafe Manager Name Role Phone Rosalind Cardoso Primary Care Provider [phone] Encounter Details Date Type Department Care Team ([facility] st Contact Info) Description 09/25/2024 Orders Only [facility] CHC MED & PEDS [address] [place], [place] [phone] Rosalind Cardoso FNP [address] [place] [address] Type 2 diabetes mellitus with stage 3 chronic kidney disease, with long-term current use of insulin, unspecified whether stage 3a or 3b CKD (CMS/HCC) (Primary Dx); Primary hypertension; Stage 3b chronic kidney disease [...] the past 12 months, has t he [employer], gas, oil or water [employer] threatened to shut off services in your home? No 04/25/2023 Depression Answer Date Recorded Patient Health Questionnaire-2 Score 0 08/03/2024 Comments Unknown Sex and Gender Information Value Date Recorded Sex Assigned at Female 05/07/2022 10:30 AM EDT Legal Sex Female 10:30 AM EDT Gender Identity Female 05/07/2022 10:30 AM EDT Sexual Orientation Straight 05/07/2022 10 :30 AM EDT documented as of this encounter Progress Notes * Lily Palumbo RN - 09/25/2024 6:01 AM EDT TC to patient. No answer. Voicemail left to return call to office to review lab results. documented in this encounter Miscellaneous Notes * Addendum Note - Gissell Bryant RN - 09/25/2024 6:01 AM EDTAddended by: GISSELL BRYANT on: 10/05/2024 12:50 PM Modules accepted: Orders documented in this encounter Plan of Treatment Not on file documented as of this encounter Procedures Procedure Name Priority Date/Time Associated Diagnosis Comments SED RATE BY MODIFIED WESTERGREN Routine 10/06/2024 10:27 AM EDT Type 2 diabetes mellitus with stage 3 chronic kidney disease, with long-term current use of insulin, unspecified whether stage 3a or 3b CKD (CMS/HCC) Primary hypertension Stage 3b chronic kidney disease (CMS/HCC) 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 (CMS/HCC) PROTHROMBIN TIME-INR Routine 10/06/2024 10:27 AM EDT Type 2 diabetes mellitus with stage 3 chronic kidney disease, with long-term current use of insulin, unspecified whether stage 3a or 3b CKD (CMS/HCC) Primary hypertension Stage 3b chronic kidney disease (CMS/HCC) 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 (CMS/HCC) C-REACTIVE PROTEIN Routine 10/02/2024 3: 12 PM EDT Type 2 diabetes mellitus with stage 3 chronic kidney disease, with long-term current use of insulin, unspecified whether stage 3a or 3b CKD (CMS/HCC) Primary hypertension Stage 3b chronic kidney disease (CMS/HCC) 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 (CMS/HCC) MAGNESIUM Routine 10/02/2024 3:12 PM EDT Type 2 diabetes mellitus with stage 3 chronic kidney disease, with long-term current use of insulin, unspecified whether stage 3a or 3b CKD (CMS/HCC) Primary hypertension Stage 3b chronic kidney disease (CMS/HCC) 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 (CMS/HCC) COMPREHENSIVE METABOLIC PANEL Routine 10/02/2024 3:12 PM EDT Type 2 diabetes mellitus with stage 3 chronic kidney disease, with long-term current use of insulin, unspecified whether stage 3a or 3b CKD (CMS/HCC) Primary hypertension Stage 3b chronic kidney disease (CMS/HCC) 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 (CMS/HCC) documented in this encounter Results * (ABNORMAL) Prothrombin Time-INR (10/06/2024 10:27 AM EDT) [facility] Signature Prothrombin Time 10.4(L) 10.9 - 12.4 SEC [facility] INTERNATIONAL NORM RATIO 0.9 0.9 - 1.1 [facility] Comment:INTERNATIONAL NORMAL IZED RATIO (INR) [...] 3.5 Blood Venous blood specimen / Unknown 10/06/2024 10:27 AM EDT 10/06/2024 10:27 AM EDT Rosalind Cardoso FACILITY PRACTICE SPECIALIST LAB BLOOD ORDERABLES Final Res ult Performing Organization Address [facility] Co de Phone Number [facility] [address] [place] [phone] * (ABNORMAL) Sed Rate by Modified Mangoergren (10/06/2024 10:27 AM EDT) Erythrocyte Sedimentation Rate 53(H) 0 - 20 MM/HR [facility] Comment:Patients with polycy themia and many hemoglobin abnormalitiesmay have depressed sed rates whereas patients with anemiamay have elevated sed rates. Blood Venous blood specimen / Unknown 10/06/2024 10:27 AM EDT 10/06/2024 10:27 AM EDT us Rosalind Cardoso FACILITY PRACTICE SPECIALIST LAB BLOOD ORDERABLES Final Res ult Performing Organization Address [facility] Co de Phone Number [facility] [address] [place] [phone] * (ABNORMAL) C-reactive Protein (10/02/2024 3:12 PM EDT) C Reactive Protein 1.06(H) < or = 0.50 mg/dL [facility] Blood Venous blood specimen / Unknown 10/02/2024 3:12 PM EDT 10/02/2024 3:12 PM EDT us Boyer Phaledna FACILITY PRACTICE SPECIALIST LAB BLOOD ORDERABLES Final Res ult Performing Organization Address [facility] Co de Phone Number [facility] [address] [place] [address] [phone] * Magnesium (10/02/2024 3:12 PM EDT) Pathologist [facility] Magnesium 2.3 1.6 - 2.6 mg/dL [facility] Blood Venous blood specimen / Unknown 10/02/2024 3:12 PM EDT 10/02/2024 3:12 PM EDT Rosalind Teoedna FACILITY PRACTICE SPECIALIST LAB BLOOD ORDERABLES Final Res ult [facility] [address] [place] [address] [phone] * (ABNORMAL) Comprehensive Metabolic Panel (10/02/2024 3:12 PM EDT) Pathologist [facility] Sodium 129(L) 135 - 145 mmol/L [facility] Potassium 3.7 3.3 - 5.1 mmol/L [facility] Chloride 94(L) 96 - 108 mmol/L [facility] Carbon Dioxide 23 22 - 29 mmol/L [facility] Anion Gap 16 12 - 20 [facility] Urea Nitrogen (BUN) 71(H) 9 - 16 mg/dL [facility] Creatinine, Serum 2.61(H) 0.5 - 1.4 mg/dL [facility] Estimated Glomerular Filt Rate 19 [facility] Comment:Chronic Kidney Disea se: Estimated GFR < 60 mL/min/[id number] Kidney Disease: Estimated GFR < 15 mL/min/1.73m2 Glucose 571(HH) 60 - 115 mg/dL [facility] Comment:Critical value for t est(s): GLUR Results called to and readback by: DR. JESSICA Gary calling: MARY Date:10/02/24 Time: 171 Calcium 9.1 8.4 - 10.2 mg/dL [facility] Bilirubin, Total 0.2 0.0 - 1.0 mg/dL [facility] Aspartate Amino Transferase 18 5 - 31 U/L [facility] Alanine Aminotransferase 10 0 - 31 U/L [facility] Total Protein 7.1 6.5 - 8.0 g/dL [facility] Albumin Level 3.5 3.5 - 5.0 g/dL [facility] Alkaline Phosphatase 102 39 - 117 U/L [facility] Blood Venous blood specimen / Unknown 10/02/2024 3:12 PM EDT 10/02/2024 3:12 PM EDT us Rosalind MORELOS LAB BLOOD ORDERABLES Final Res ult [facility] [address] [place] [phone] [phone] documented in this encounter Visit Diagnoses Diagnosis Type 2 diabetes mellitus with stage 3 chronic kidney disease, with long-term current use of insulin, unspecified whether stage 3a or 3b CKD (CMS/HCC)- Primary Primary hypertension Unspecified essential hypertension Stage 3b chronic kidney disease (CMS/HCC) 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
--- OUTSIDE RECORDS SUMMARY | 2024-10-06 11:57 | XMS_ITS | Encounter Summary ---
Author Organization [employer] Address 75 [facility] 7t [place] [address] Care Team Providers Care Manager Sharepoint Name Role Phone Rosalind Cardoso Primary Care Provider [phone] Encounter Details Date Type Department Care Team (Late st Contact Info) Description 07/10/2024 Orders Only [facility] MEDICINE [address] [place] [address] Rosalind Cardoso FNP [address] [place] [address] Type 2 diabetes mellitus with stage 3 [...] as of this encounter Care Teams Manager Sharepoint Relationship Specialty Start Date End Date Rosalind Cardoso FNP [address] [place] [phone] PCP - General Family Medicine 04/28/21 documented as of this encounter
--- OUTSIDE RECORDS SUMMARY | 2024-10-06 11:57 | XMS_ITS | Encounter Summary ---
Author Organization [employer] Address 75 [facility] 7t [place] [address] Care Team Providers Care Wire Border Assembler Name Role Phone Rosalind Cardoso Primary Care Provider [phone] Encounter Details Date Type Department Care Team ([facility] st Contact Info) Description 07/31/2024 Orders Only [facility] CHC MED & PEDS [address] [place], [place] [phone] Rosalind Cardoso FNP [address] [place] [address] Type 2 diabetes mellitus with stage 3 [...] documented as of this encounter Care Teams Wire Border Assembler Relationship Specialty Start Date End Date Rosalind Cardoso FNP [address] [place] [address] PCP - General Family Medicine 04/28/21 documented as of this encounter
--- OUTSIDE RECORDS SUMMARY | 2024-10-06 11:57 | XMS_ITS | Encounter Summary ---
Author Organization [employer] Address [address] [facility] 7t [place] [address] Care Team Providers Care High Lead Yarder Name Role Phone Rosalind Cardoso TAMY Primary Care Provider [phone] Encounter Details Date Type Department Care Team ([facility] st Contact Info) Description 05/23/2023 Abstract [facility] MEDICINE [address] [place], [place] [phone] Adela Pena Social History Tobacco Use Types [...] documented as of this encounter Care Teams High Lead Yarder Relationship Specialty Start Date End Date Rosalind Cardoso FNP [address] [place] [phone] PCP - General Family Medicine 04/28/21 documented as of this encounter
--- OUTSIDE RECORDS SUMMARY | 2024-10-06 11:57 | XMS_ITS | Encounter Summary ---
Author Organization [employer] Address [address] [place] [address] 7 [place] [address] Care Team Providers Care Industrial Staff Nurse Name Role Phone Rosalind Cardoso Primary Care Provider Reason for Visit * Reason Onset Date Comments Request For Order(s) 07/30/2023 Encounter Details Date Type Department Care Team ([facility] Contact Info) Description 07/30/2023 Telephone [facility] MED & PEDS [address] [place] [address] Rosalind Cardoso FNP [address] [place] [address] Request For Order(s) Social History Tobacco Use [...] referrals team. * Telephone Encounter - Hilaria Sandoval - 07/30/2023 4:26 PM EST Tc from michelle with [facility] requesting updated PT orders due to pt complaining of hip and back pain. Will also need OT orders for pain in the hands. Please fax to [phone] (attention: michelle) documented in this encounter Plan [...] documented as of this encounter Care Teams Industrial Staff Nurse Relationship Specialty Start Date End Date Rosalind Cardoso FNP [address] [place] [phone] PCP - General Family Medicine 04/28/21 documented as of this encounter
--- OUTSIDE RECORDS SUMMARY | 2024-10-06 11:57 | XMS_ITS | Encounter Summary ---
Author Organization [employer] Address [address] [facility] 7t [place] [address] Care Team Providers Care Mines Inspector Name Role Phone Rosalind Cardoso Primary Care Provider [phone] Reason for Visit * Reason Onset Date Comments Referral Renewal 07/18/2023 Encounter Details Date Type Department Care Team ([facility] st Contact Info) Description 07/18/2023 Telephone [facility] MEDICINE [address] [place] [address] Rosalind Cardoso FNP [address] [place] [address] Referral Renewal Social History Tobacco Use Types [...] - 07/24/2023 2:27 PM EST Referral to [facility] for OT and physical therapy placed, thank you! * Telephone Encounter - Tiffanie Marquez RN - 07/19/2023 1:10 PM EST Returned call to pt regarding message below. Pt states she is requesting the same services she was getting to [facility] just in [facility] for PT and OT due to transportation. [facility] can offer pt transportation. Pt states she [...] following with Physical therapy and OT at [facility] (2x/week) for hx of left BKA. Please confirm that she is interested in switching locations, as well as confirm that still for same diagnosis. Thank you! 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
--- OUTSIDE RECORDS SUMMARY | 2024-10-06 11:57 | XMS_ITS | Encounter Summary ---
Author Organization [employer] Address [address] [facility] 7t [place] [address] Care Team Providers Care Tong Hooker Name Role Phone Rosalind Cardoso Primary Care Provider [phone] Encounter Details Date Type Department Care Team ([facility] st Contact Info) Description 09/11/2024 Orders Only [facility] MED & PEDS [address] [place], [place] [phone] Rosalind Cardoso FNP [address] [place] [address] Type 2 diabetes mellitus with stage 3 [...] the past 12 months, has t he [employer], [employer], oil or [employer] threatened to shut off services in your [...] Date/Time Associated Diagnosis Comments C-REACTIVE PROTEIN Routine 10/06/2024 10 :27 AM EDT Type 2 diabetes mellitus with stage 3 chronic kidney disease, with long-term current use of insulin, unspecified whether stage 3a or 3b CKD (CMS/HCC) Primary hypertension Stage 3b chronic kidney disease (CMS/HCC) 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 (CMS/HCC) MAGNESIUM Routine 10/06/2024 10:27 AM EDT Type 2 diabetes mellitus with stage 3 chronic kidney disease, with long-term current use of insulin, unspecified whether stage 3a or 3b CKD (CMS/HCC) Primary hypertension Stage 3b chronic kidney disease (CMS/HCC) 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/HCC) Primary hypertension Stage 3b chronic kidney disease (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) documented in this encounter Results * (ABNORMAL) C-reactive Protein (10/06/2024 10:27 AM EDT) C Reactive Protein 0.59(H) < or = 0.50 mg/dL [facility] Blood Venous blood specimen / Unknown 10/06/2024 10:27 AM EDT 10/06/2024 10:27 AM EDT Rosalind Cardoso DIRECTOR OF USER EXPERIENCE LAB BLOOD ORDERABLES Final Res ult Performing Organization Address [facility]/ZIP Co de Phone Number [facility] [address] [place] [phone] * Magnesium (10/06/2024 10:27 AM EDT) Pathologist [facility] Magnesium 2.0 1.6 - 2.6 mg/dL [facility] Blood Venous blood specimen / Unknown 10/06/2024 10:27 AM EDT 10/06/2024 10:27 AM EDT Rosalind Phalen DIRECTOR OF USER EXPERIENCE LAB BLOOD ORDERABLES Final Res ult Performing Organization Address [facility]/ZIP Co de Phone Number [facility] [address] [place] [phone] * (ABNORMAL) Comprehensive Metabolic Panel (10/06/2024 10:27 AM EDT) Sodium 134(L) 135 - 145 mmol/L [facility] Potassium 4.4 3.3 - 5.1 mmol/L [facility] Chloride 101 96 - 108 mmol/L [facility] Carbon Dioxide 24 22 - 29 mmol/L [facility] Anion Gap 13 12 - 20 [facility] Urea Nitrogen (BUN) 85(H) 9 - 16 mg/dL [facility] Creatinine, Serum 2.35(H) 0.5 - 1.4 mg/dL [facility] Estimated Glomerular Filt Rate 21 [facility] Comment:Chronic Kidney Disea se: Estimated GFR < 60 mL/min/1.05w4Abmwap Kidney Disease: Estimated GFR < 15 mL/min/1.73m2 Glucose 298(H) 60 - 115 mg/dL [facility] Calcium 9.6 8.4 - 10.2 mg/dL [facility] Bilirubin, Total 0.3 0.0 - 1.0 mg/dL [facility] Aspartate Amino Transferase 15 5 - 31 U/L [facility] Alanine Aminotransferase 7 0 - 31 U/L [facility] Total Protein 6.9 6.5 - 8.0 g/dL [facility] Albumin Level 3.6 3.5 - 5.0 g/dL [facility] Alkaline Phosphatase 91 39 - 117 U/L [facility] Blood Venous blood specimen / Unknown 10/06/2024 10:27 AM EDT 10/06/2024 10:27 AM EDT us Rosalind Cardoso DIRECTOR OF USER EXPERIENCE LAB BLOOD ORDERABLES Final Res ult [facility] [address] [place] [phone] * (ABNORMAL) Sed Rate by Modified Marlene (10/02/2024 3:12 PM EDT) Erythrocyte Sedimentation Rate 53(H) 0 - 20 MM/HR [facility] Comment:Patients with polycy themia and many hemoglobin abnormalitiesmay have depressed sed rates whereas patients with anemiamay have elevated sed rates. Blood Venous blood specimen / Unknown 10/02/2024 3:12 PM EDT 10/02/2024 3:12 PM EDT Rosalind MORELOS LAB BLOOD ORDERABLES Final Res ult [facility] [address] [place] [phone] documented in this encounter Visit Diagnoses [...] documented as of this encounter Care Teams Tong Hooker Relationship Specialty Start Date End Date Rosalind Cardoso FNP [address] [place] [phone] PCP - General Family Medicine 04/28/21 documented as of this encounter
--- OUTSIDE RECORDS SUMMARY | 2024-10-06 11:57 | XMS_ITS | Encounter Summary ---
Author Organization [employer] Address [address] [place] [address] 7t [place] [address] Care Team Providers Care Hot Mill Tin Roller Name Role Phone Rosalind Cardoso Primary Care Provider [phone] Reason for Visit * Reason Onset Date Comments Results 08/06/2023 Encounter Details Date Type Department Care Team ([facility] Contact Info) Description 08/06/2023 Telephone [facility] MED & PEDS [address] [place] [address] Rosalind Cardoso FNP [address] [place] [address] Results Social History Tobacco Use Types Packs/Day [...] results: labs Date when done: 08/[address]: [facility] Please contact pt at [phone] documented in this encounter Plan of Treatment Not on file documented as of this encounter Visit Diagnoses Not on filedocumented in this encounter Additional Health Concerns Assessment Noted Time PHQ-9 Depression Total Score: 0 12/26/19 23 1:09 PM EDT documented as of this encounter Care Teams Hot Mill Tin Roller Relationship Specialty Start Date End Date Rosalind Cardoso FNP [address] [place] [phone] PCP - General Family Medicine 04/28/21 documented as of this encounter
--- OUTSIDE RECORDS SUMMARY | 2024-10-06 11:57 | XMS_ITS | Encounter Summary ---
Author Organization [facility] Address [address] [place] [phone] Care Team Providers Care Fuel Operator Name Role Phone Physician, Pcp Unknown Primary Care Provider Felecia vailable Reason for Referral * Imaging (Routine) - Pending Review Specialty Diagnoses / Procedures Referred By Contkatie t Referred To Contact Diagnoses PAD (peripheral artery disease) (CMS/HCC) Procedures Vascular US duplex lower extremity arteries bilateral with MANUEL Nu Holt PA [address] [facility] [address] [place] [address] Phone: tel: fax: [facility] Referral ID Status Reason Start Date Expiration Date V isits Requested Visits Authorized [id number] Pending Review 10/05/2024 10/05/2025 1 1 Reason for Visit * Reason Comments Follow-up Peripheral Vascular Disease Encounter Details Date Type Department Care Team ([facility] Contact Info) Description 10/05/2024 3:00 PM EDT Office Visit Vascular Surgery - [place] [address] [facility] [address] [place] [phone] Nu Holt PA [address] [facility] [address] [place] [address] PAD (peripheral artery disease) (CMS/HCC) (Primary Dx) Social History Tobacco Use Types Packs/Day Years Used Date Smoking Tobacco: Never Smokeless Tobacco: Never Comments Unknown Sex and Gender Information Value Date Recorded Sex Assigned at Not on file Legal Sex Female 8:42 PM EST Gender Identity Not on file Sexual Orientation Not on file documented as of this encounter Last Filed Vital Signs Vital Sign Reading Time Taken Comments Blood Pressure 129/56 10/05/2024 3:14 PM EDT Pulse 83 10/05/2024 3:14 PM EDT Temperature - - Respiratory Rate - - Oxygen Saturation - - Inhaled Oxygen Concentration - - Weight - - Height 152.4 cm (5') 10/05/2024 3:14 PM EDT Body Mass Index - - documented in this encounter Progress Notes * ZARIA Oliver - 10/05/2024 3:00 PM EDT PATIENT: Mitra Parish ENCOUNTER: 10/05/2024 EMRN: [id number] : 1965 PCP: Pcp Unknown Physician CHIEF COMPLAINT: Follow-up and Peripheral Vascular Disease HPI: This 59 y.o. female presents for follow up of PAD. 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 Patient has a left BKA, T2DM, HLD, HTN. She is seeing Dr. Quijano for chronic rightheel ulcer. Petroleum jelly recommended for heel callous/ulcer along with glycemic control. She waslast seen in this office in December 2023. Patient had a left BKA in August 2022 and has not really been able to use a prosthetic due to burning pain along the incision line and extending down the medial aspect of the thigh. She has tried gabapentin in the past before her BKA and refuses to try againdue to adverse side effects. She is a nonsmoker. She is presenting in a wheelchair. She is able to transfer independently. She has had a left leg angiogram with star closure at [facility] in the past, before her BKA. PAST MEDICAL HISTORY: Patient Active Problem List Diagnosis DM2 (diabetes mellitus, type 2) ([facility]) Hx of BKA, left ([facility]) Hyperlipidemia Hypertension PAD (peripheral artery disease) ([facility]) Vitamin D deficiency PAST SURGICAL HISTORY: Past Surgical History: Procedure Laterality Date OTHER SURGICAL HISTORY Left 09/01/2022 PROCEDURE: IN AMPUTATION LEG THROUGH TIBIA&FIBULA MEDICATIONS: Outpatient Medications Marked as Taking for the 10/05/24 encounter (Office Visit) with ZARIA Oliver Medication Sig Dispense Refill acetaminophen (TYLENOL) 325 mg tablet Take 2 tablets (650 mg total) by mouth every 6 (six) hours ifneeded. amitriptyline (ELAVIL) 25 mg tablet Take 1 Tablet by mouth at bedtime. amLODIPine (NORVASC) 5 mg tablet Take 1 tablet (5 mg total) by mouth 1 (one) time each day. aspirin 81 mg EC tablet Take 1 tablet (81 mg total) by mouth 1 (one) time each day. atorvastatin (LIPITOR) 40 mg tablet Take 1 tablet (40 mg total) by mouth 1 (one) time each day. chlorthalidone (HYGROTON) 25 mg tablet Take 1 tablet (25 mg total) by mouth 1 (one) time each day. cholecalciferol (VITAMIN D-3) 25 mcg (1,000 unit) tablet Take by mouth. dextrose 15 gram/32 mL gel in packet Take by mouth. ezetimibe (ZETIA) 10 mg tablet Take 1 tablet (10 mg total) by mouth 1 (one) time each day. folic acid (FOLVITE) 1 mg tablet Take 1 tablet (1,000 mcg total) by mouth 1 (one) time each day. furosemide (LASIX) 40 mg tablet Take 2 tablets (80 mg total) by mouth 1 (one) time each day. insulin glargine (LANTUS) 100 unit/mL injection Inject into the skin at bedtime. lisinopriL (PRINIVIL,ZESTRIL) 20 mg tablet Take 0.5 Tablets by mouth daily. magnesium oxide (MAG-OX) 400 mg magnesium tablet Take by mouth. metFORMIN (GLUCOPHAGE) 1,000 mg tablet Take 1 Tablet by mouth 2 times daily (with meals). metoprolol succinate (TOPROL-XL) 100 mg 24 hr tablet Take 1 tablet (100 mg total) by mouth 1 (one) time each day. pantoprazole (PROTONIX) 40 mg EC tablet Take 1 tablet (40 mg total) by mouth 1 (one) time each day. white petrolatum ointment Apply topically if needed for dry skin. 368 g 3 ALLERGIES: No Known Allergies SOCIAL HISTORY: Social History Tobacco Use Smoking status: Never Smokeless tobacco: Never FAMILY HISTORY: No family history on file. ROS: GENERAL: No malaise, significant weight loss or fever NECK: No lumps, goiter, pain or significant neck swelling RESPIRATORY: No cough, wheezing or shortness of breath CARDIAC: No chest pain or palpitations GI: No abdominal discomfort MUSCULOSKELETAL: SEE HPI SKIN: No lesions, rash or itching NEURO: No persistent headache, syncope, seizures, weakness or numbness VASCULAR: SEE HPI PHYSICAL EXAM: Vitals: 10/05/24 1514 BP: 129/56 BP Location: Right arm Patient Position: Sitting Pulse: 83 Height: 1.524 m (60 ) General: Alert and oriented x 3, no acute distress, obese HEENT: Normocephalic atraumatic Neck: No JVD Chest: Respiratory effort normal Cardiac: Regular rate rhythm Abdomen: Soft, nontender, nondistended, no widened aortic pulse Extremities: -Right upper extremity: 2+ radial artery pulses palpable. -Left upper extremity: 2+ radial artery pulses palpable. -Right lower extremity: 2+ femoral artery pulse palpable. No palpable popliteal artery pulse. No palpable DP or PT. Dry lateral heel lesion. Scars from prior burn on foot. No edema. -Left lower extremity: 2+ femoral artery pulse palpable. S/p L BKA, well healed, no swelling. Neuro: Grossly intact DIAGNOSTIC TESTING: N/a ASSESSMENT: 1. PAD (peripheral artery disease) ([facility]) PLAN: 59 y.o. female with PAD and T2DM with burning pain within the left leg which is preventing her fromusing a prosthetic. Pt's pain does seem neurogenic. I recommended arterial duplex and this was ordered. She should follow up once it is complete. However her left BKA is well perfused and has no skinbreakdown, callus, or bony prominence to explain her pain. She does not want to trial gabapentin for neuropathic pain. We discussed the natural pathophysiology of PAD. I spent 34 minutes in an encounter with this patient, including time spent with patient, chart review, ordering diagnostic studies, and documentation. documented in this encounter Plan of Treatment Upcoming Encounters Date Type Department Care Team (Late st Contact Info) Description 11/09/2024 2:00 PM EDT Office Visit Orthopedic Surgery - [place] [address] [phone] Raheel Quijano, DPM [address] [address] 01/06/2025 1:00 PM EDT Office Visit Vascular Surgery - [place] [address] [place] [phone] Oralia Borden MD [address] [place] [address] Scheduled Orders Name Type Priority Associated Diagnoses Orde r Schedule Vascular US duplex lower extremity arteries bilateral with MANUEL Vascular Ultrasound Routine PAD (peripheral artery disease) ([facility]) Expected: 10/05/2024, Expires: 10/05/2025 documented as of this encounter Visit Diagnoses Diagnosis PAD (peripheral artery disease) ([facility])- Primary Unspecified peripheral vascular disease documented in this encounter Care Teams Fuel Operator Relationship Specialty Start Date End Date Physician, Pcp Unknown PCP - General 07/27/24 documented as of this encounter
--- OUTSIDE RECORDS SUMMARY | 2024-10-06 11:57 | XMS_ITS | Encounter Summary ---
Author Organization [employer] Address [address] [facility] [address] [place] [address] Care Team Providers Care Certified Medical Assistant Name Role Phone Rosalind Cardoso Primary Care Provider [phone] Encounter Details Date Type Department Care Team ([facility] st Contact Info) Description 07/17/2024 Orders Only [facility] [address] [place], [place] [phone] Rosalind Cardoso FNP [address] [place] [address] Type 2 diabetes mellitus with stage 3 [...] Comments SED RATE BY MODIFIED WESTERGREN Routine 08/04/2024 10:17 AM EST Type 2 diabetes mellitus with stage 3 chronic kidney disease, with long-term current use of insulin, unspecified whether stage 3a or 3b CKD (CMS/HCC) Primary hypertension Stage 3b chronic kidney disease (CMS/HCC) 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 (CMS/HCC) MAGNESIUM Routine 08/04/2024 10:17 AM EST Type 2 diabetes mellitus with stage 3 chronic kidney disease, with long-term current use of insulin, unspecified whether stage 3a or 3b CKD (CMS/HCC) Primary hypertension Stage 3b chronic kidney disease (CMS/HCC) 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 (CMS/HCC) COMPREHENSIVE METABOLIC PANEL Routine 08/04/2024 10:17 AM EST Type 2 diabetes mellitus with stage 3 chronic kidney disease, with long-term current use of insulin, unspecified whether stage 3a or 3b CKD (CMS/HCC) Primary hypertension Stage 3b chronic kidney disease (CMS/HCC) 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 (CMS/HCC) documented in this encounter Results * (ABNORMAL) Sed Rate by Modified Westergren (08/04/2024 10:17 AM EST) Pathologist [facility] Erythrocyte Sedimentation Rate 50(H) 0 - 20 MM/HR [facility] Comment:Patients with polycy themia and many hemoglobin abnormalitiesmay have depressed sed rates whereas patients with anemiamay have elevated sed rates. Blood Venous blood specimen / Unknown 08/04/2024 10:17 AM EST 08/04/2024 10:17 AM EST Rosalind Cardoso [facility] BLOOD ORDERABLES Final Res ult Performing Organization Address [facility]/ZIP Co de Phone Number [facility] [address] [place] [phone] * Magnesium (08/04/2024 10:17 AM EST) [facility] Magnesium 2.3 1.6 - 2.6 mg/dL [facility] Blood Venous blood specimen / Unknown 08/04/2024 10:17 AM EST 08/04/2024 10:17 AM EST Rosalind Cardoso [facility] BLOOD ORDERABLES Final Res ult Performing Organization Address [facility] Co de Phone Number [facility] [address] [place] [phone] * (ABNORMAL) Comprehensive Metabolic Panel (08/04/2024 10:17 AM EST) [facility] Sodium 134(L) 135 - 145 mmol/L [facility] Potassium 4.1 3.3 - 5.1 mmol/L [facility] Chloride 100 96 - 108 mmol/L [facility] Carbon Dioxide 27 22 - 29 mmol/L [facility] Anion Gap 11(L) 12 - 20 [facility] Urea Nitrogen (BUN) 50(H) 9 - 16 mg/dL [facility] Creatinine, Serum 1.56(H) 0.5 - 1.4 mg/dL [facility] Estimated Glomerular Filt Rate 34 [facility] Comment:Chronic Kidney Disea se: Estimated GFR < 60 mL/min/1.61x0Zenlyv Kidney Disease: Estimated GFR < 15 mL/min/1.73m2 Glucose 265(H) 60 - 115 mg/dL [facility] Calcium 9.1 8.4 - 10.2 mg/dL [facility] Bilirubin, Total 0.2 0.0 - 1.0 mg/dL [facility] Aspartate Amino Transferase 16 5 - 31 U/L [facility] Alanine Aminotransferase <6 0 - 31 U/L [facility] Total Protein 7.6 6.5 - 8.0 g/dL [facility] Albumin Level 3.6 3.5 - 5.0 g/dL [facility] Alkaline Phosphatase 101 39 - 117 U/L [facility] Blood Venous blood specimen / Unknown 08/04/2024 10:17 AM EST 08/04/2024 10:17 AM EST us Rso[facility] LAB BLOOD ORDERABLES Final Res ult [facility] [address] [place] [phone] documented in this encounter Visit Diagnoses Diagnosis Type 2 diabetes mellitus with stage 3 chronic kidney disease, with long-term current use of insulin, unspecified whether stage 3a or 3b CKD (CMS/HCC) Primary hypertension Unspecified essential hypertension Stage 3b chronic kidney disease ([facility]/HCC) 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 ([facility]/HCC) documented in this encounter Additional Health Concerns Assessment Noted Time PHQ-9 Depression Total Score: 0 12/26/19 23 1:09 PM EDT documented as of this encounter Care Teams Certified Medical Assistant Relationship Specialty Start Date End Date Rosalind Cardoso FNP [address] [place] [phone] PCP - General Family Medicine 04/28/21 documented as of this encounter
--- OUTSIDE RECORDS SUMMARY | 2024-10-06 11:57 | XMS_ITS | Clinical Summary ---
Author Organization [employer] Address [address] [facility] [address] [place] [address] Care Team Providers Care Caregivers Non Medical Name Role Phone Rosalind Cardoso TAMY Primary Care Provider [phone] Allergies Active Allergy Reactions Criticality Noted Date Comments Empagliflozin Other 12/10/2023 Hx BKA, shared decision making to avoid SGLT-2i Medications * This document contains information received from the source organization and may not represent a complete record from that organization. Nutritional Supplements (Glucerna Shake) liquid Supplement meals with one glucerna drink daily as needed - Vanilla Glucerna 10/07/19 22 Active isosorbide mononitrate ER (Imdur) 60 MG 24 hr tablet 06/20/20 23 Active mupirocin (Bactroban) 2 % ointmentIndicati ons:Other chronic osteomyelitis, left ankle and foot (CMS/HCC) APPLY TOPICALLY TO AFFECTED AREA(S) THREE TIMES DAILY FOR 10 DAYS 22 g 3 06/21/20 23 Active lidocaine-priloc daren (Emla) 2.5-2.5 % creamIndications :Other chronic osteomyelitis of left foot (CMS/HCC) APPLY TO THE AFFECTED AREA(S) ONCE DAILY NEEDED FOR PAIN 30 g 11 06/21/20 23 Active sodium chloride (Deep Sea Nasal K[place]ett) 0.65 % nasal spray USE 1 SPRAY IN EACH NOSTRIL NEEDED FOR NASAL CONGESTION 44 mL 11 10/02/19 24 Active folic acid (Folvite) 1 MG tablet Take 1 tablet (1 mg) by mouth Once daily. 90 tablet 10/10/19 24 Active aspirin (Aspirin Adult Low Strength) 81 MG EC tabletIndication s:Type 2 diabetes mellitus with hyperglycemia, with long-term current use of insulin (CMS/[facility]) Take 1 tablet (81 mg) by mouth Once daily. 90 tablet 3 05/29/20 24 Active chlorthalidone (Hygroton) 25 MG tablet Take 1 tablet (25 mg) by mouth in the morning. 90 tablet 3 05/29/20 24 Active atorvastatin (Lipitor) 80 MG tablet TAKE 1 TABLET BY MOUTH AT BEDTIME 90 tablet 3 05/29/20 24 Active metFORMIN (Glucophage) 1000 MG tabletIndication s:Type 2 diabetes mellitus with foot ulcer, with long-term current use of insulin (CMS/[facility]) TAKE 1 TABLET BY MOUTH TWICE DAILY IN THE MORNING AND IN THE EVENING WITH MEALS 180 tablet 3 05/29/20 24 Active pantoprazole (ProtoNix) 40 MG EC tablet Take 1 tablet (40 mg) by mouth Once daily. 90 tablet 3 05/29/20 24 Active cholecalciferol (Vitamin D-3) 25 MCG (1000 UT) tablet Take 1 tablet (25 mcg) by mouth Once daily. 90 tablet 3 05/29/20 24 Active lisinopril 20 MG tablet Take 1 tablet (20 mg) by mouth in the morning. 90 tablet 1 05/29/20 24 Active metoprolol succinate XL (Toprol XL) 100 MG 24 hr tablet Take 1 tablet (100 mg) by mouth Once per day. Do not crush or chew. 90 tablet 3 05/29/20 24 025 Active ezetimibe (Zetia) 10 MG tabletIndication s:Pure hypercholesterol emia, unspecified Take 1 tablet (10 mg) by mouth in the morning. 90 tablet 3 05/29/20 24 Active lidocaine (Lidoderm) 5 % patchIndications :Pain APPLY 1 PATCH TOPICALLY TO SKIN, LEAVE ON FOR 12 HOURS AND OFF FOR 12 HOURS DIRECTED 30 patch 05/29/20 24 Active magnesium oxide (Mag-Ox) 400 MG tabletIndication s:Type 2 diabetes mellitus with other specified complication, unspecified whether detention insulin use (CMS/HCC) TAKE 1 TABLET BY MOUTH THREE TIMES DAILY 270 tablet 1 05/29/20 24 Active amitriptyline (Elavil) 25 MG tabletIndication s:Fibromyalgia Take 1 tablet (25 mg) by mouth at bedtime. 90 tablet 1 05/29/20 24 Active bacitracin 500 UNIT/GM ointment Apply topically 2 times daily. Apply to affected area daily 30 g 06/09/20 24 Active clotrimazole (Lotrimin) 1 % cream APPLY TOPICALLY TWICE DAILY FOR 28 DAYS 30 g 3 06/19/20 24 Active Blood Glucose Monitoring Suppl kitIndications:T ype 2 diabetes mellitus with foot ulcer, with long-term current use of insulin ([facility]) Use to check Blood glucose values three times dailyUse to check Blood glucose values three times daily 1 kit 1 08/03/19 25 Active Blood Pressure kit Use to check blood pressure daily and when symptomatic. 1 kit 08/03/19 25 Active Alcohol Swabs (SM Alcohol Prep) 70 % padsIndications: Type 2 diabetes mellitus with foot ulcer, with long-term current use of insulin ([facility]) TEST BLOOD SUGAR THREE TIMES DAILY 100 each 08/03/19 25 Active FreeStyle lancets 1 each by Other route 3 times daily. Use as instructed 100 each 08/03/19 25 Active pen needle 31G x 5 mm misc Inject under the skin 3 times daily. Use as instructed 100 each 3 08/03/19 25 Active glucose blood (OneTouch Verio) test stripIndications :Type 2 diabetes mellitus with foot ulcer, with long-term current use of insulin ([facility]) USE DIRECTED TO TEST BLOOD SUGAR THREE TIMES DAILY 100 strip 11 08/03/19 25 Active amLODIPine (Norvasc) 5 MG tablet Take 1 tablet by mouth Once per day. 07/02/20 24 Active Repatha SureClick 140 MG/ML injection 08/10/19 25 Active furosemide (Lasix) 40 MG tablet Take 2 tablets by mouth Once per day. 07/02/20 24 Active insulin glargine (Lantus SoloStar) 100 UNIT/ML penIndications:T ype 2 diabetes mellitus with hyperglycemia ([facility]) Inject 42-48 units once daily as directed. Increase to 42 units today, then increase by 2 units every 3-4 days if FBS > 130mg/dl with NO hypoglycemia. 08/14/19 25 Active Acetaminophen Extra Strength 500 MG tabletIndication s:Low back pain at multiple sites TAKE 1 TO 2 TABLETS BY MOUTH EVERY 8 HOURS NEEDED (for pain) 100 tablet 3 03/07/20 25 Active Acetaminophen Extra Strength 500 MG tabletIndication s:Low back pain at multiple sites TAKE 1 TO 2 TABLETS BY MOUTH EVERY 8 HOURS NEEDED (for pain) 100 tablet 1 07/13/19 25 025 Discontinued Active Problems Problem Noted Date Diagnosed Date Cervicalgia 08/11/2023 Overview (08/11/2023): ?? Evaluation through [facility] - MRI cervical spine completed Jul 2023 unremarkable ?? Referral to [facility] Pain Management 08/11/23 Fibromyalgia 05/14/2023 Overview (12/10/2023): Previously followed by [facility] Neurology, Dr. Jolly Continues with amitriptyline 25mg [...] BKA performed by Dr. Borden 09/01/22 at [facility] -Indication: gangrene and ulcers of the left foot, charcot foot, and OM Assessment & Plan (10/03/2023 12:46 PM EDT): Plan for updated prosthetic to accommodate the increased swelling Assessment & Plan (01/31/2023 6:27 PM EDT): ?? Currently completing at home physical therapy, referral for physical therapy at [facility] Assessment & Plan (12/26/2022 8:59 AM [...] -Cont Metoprolol succ 100mg daily -Following with [facility] Cards Assessment & Plan (11/05/2022 9:48 PM [...] Routine health maintenance 06/20/2022 Overview (03/16/2024): -Optometry: [facility] November 2021 -Dental: [facility] dental clinic -Pap: reports last 2019 and believes results were normal, referred to UroGYN -Mammo: 11/29/23 BIRADS 1 -Colorectal CA screening: iFOBT neg 12/18/21, due Assessment & Plan (10/03/2023 12:48 PM EDT): Complex care management/medical binder completed today and reviewed with patient -Pt continues to decline all vaccines Assessment & Plan (06/21/2023 9:30 PM EST): -Optometry: [facility] November 2021 -Dental: [facility] dental clinic -Pap: reports last 2019 and believes results were normal, referred to UroGYN -Colorectal CA screening: iFOBT neg 12/18/21, due December 2022 ?? Complex care management/medical binder completed today with patient. Medical binder to be picked up next week when elevator in apartment functioning. Assessment & Plan (11/05/2022 9:38 PM EDT): -Optometry: [facility] November 2021 -Dental: [facility] dental clinic -Pap: reports last 2019 and believes results were normal, referred to UroGYN -Colorectal CA screening: iFOBT neg 12/18/21, due December 2022 -Mammogram: BIRADS 3 on 01/16/22, due Jul 2022 -Outstanding vaccines: influenza, Tdap, Shingrix, PCV20, COVID ?? 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 [facility] Nephrology ?? [facility] End[facility] ?? [facility] GI ?? [facility] Cards ?? [facility] UroGYN Assessment & Plan (06/20/2022 6:06 PM EST): -Optometry: NABORNovember 2021 -Dental: [facility] dental clinic -Pap: reports last 2019 [...] to add microalbumin to routine blood work [id number], ordered Irritable bowel syndrome 09/21/2021 Peripheral vascular [...] 09/26/2022 HGBA1C 11.3 (H) 08/22/2021 -Followed by [facility] Endo -Cont current medication regimen metformin 1000mg BID Lantus 40 units at bedtime Actos 15mg daily -Movement/exercise as tolerated Pt declines any med adjustments at this time, although future considerations include: -Consider DC of Actos given cardiac conditions -Consider addition of GLP1 - Referred to [facility] clinic on 08/03/24 Avoid SGLT2 [...] EST): -A1c 8.0 on 05/01/22 -Followed by [facility] Endo -Continue on current regimen: -metformin 1000mg BID -Jardiance 10mg daily -Lantus 40 units at bedtime -Actos 15mg daily -Movement/exercise as tolerated Beta thalassemia trait 10/09/2018 Second degree uterine prolapse 10/09/2018 Urinary incontinence 10/09/2018 Overview (12/10/2023): Following with [facility] UroGYN for hx urinary incont and [...] Plan (10/03/2023 12:45 PM EDT): Following with [facility] Heme/Onc, plan to repeat labs through PCP [id number]: CBC, CMP, magnesium, sed rate, CRP, microalbumin Continues with Procrit while Hemoglobin < 10 Assessment & Plan (05/14/2023 12:02 PM EST): Following with [facility] Heme/Onc, plan to repeat labs today through PCP Q 2 weeks: ?? CBC, CMP, magnesium, sed rate, CRP, microalbumin Assessment & Plan (12/26/2022 9:00 AM EDT): Previously followed by [facility] Heme/Onc, plan to repeat labs today through PCP Q 2 weeks: ?? CBC, CMP, magnesium, sed rate, CRP, microalbumin Assessment & Plan (11/05/2022 9:50 PM EDT): Previously followed by [facility] Heme/Onc, plan to repeat labs today through PCP. Ordered. Osteoarthritis of both knees 08/12/2017 Primary hypertension 03/16/2016 Overview (08/03/2024): Following with [facility] Cards - Dr. Middleton/CHANDU Yo. September 2023: [...] or cuboid bones. Pt was seen by [facility] ID and initiated on PO doxy x 6 weeks, with possible need for surgical intervention. Following with [facility] Vascular - Dr. Vigil - and podiatry. 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 Date Type Department Care Team Description 10/06/2024 Orders Only GENERIC EXTERNAL DATA DEPARTMENT Provider, Generic External Data 10/05/2024 Telephone [facility] [address] [place] [address] Rosalind Cardoso FNP Results; Lab Orders 10/02/2024 Orders Only GENERIC EXTERNAL DATA DEPARTMENT Provider, Generic External Data 09/25/2024 Orders Only [facility] [address] [place] [address] Phalen, Rosalind, OFFICE COMMUNICATION PROFESSOR Type 2 diabetes mellitus with stage 3 chronic kidney disease, with long-term current use of insulin, unspecified whether stage 3a or 3b CKD (CMS/HCC) (Primary Dx); Primary hypertension; Stage 3b chronic kidney disease (CMS/HCC); 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 (CMS/HCC) 09/11/2024 Orders Only [facility] [address] [place] [address] Rosalind Cardoso, OFFICE COMMUNICATION PROFESSOR Type 2 diabetes mellitus with stage 3 chronic kidney disease, with long-term current use of insulin, unspecified whether stage 3a or 3b CKD (CMS/HCC); Primary hypertension; Stage 3b chronic kidney disease (CMS/HCC); 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 ([facility]/HCC) 09/10/2024 Telephone [facility] [address] [place] [address] Amira Ayoub PharmD 09/10/2024 Refill [facility] [address] [place] [address] Rosalind Cardoso, OFFICE COMMUNICATION PROFESSOR Low back pain at multiple sites 09/01/2024 Telephone [facility] [address] [place] [address] Glenn Winn [place] Chart Prep 08/28/2024 Orders Only [facility] [address] [place] [address] Rosalind Cardoso, OFFICE COMMUNICATION PROFESSOR Type 2 diabetes mellitus with stage 3 chronic kidney disease, with long-term current use of insulin, unspecified whether stage 3a or 3b CKD (CMS/HCC); Primary hypertension; Stage 3b chronic kidney disease (CMS/HCC); 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 ([facility]/HCC) 08/21/2024 Orders Only [facility] [address] [place] [address] Rosalind Cardoso, OFFICE COMMUNICATION PROFESSOR Type 2 diabetes mellitus with stage 3 chronic kidney disease, with long-term current use of insulin, unspecified whether stage 3a or 3b CKD (CMS/HCC); Myalgia 08/14/2024 10:30 AM EST Telemedicine [facility] [address] [place] [address] Amira Ayoub, ChristopherD Type 2 diabetes mellitus with hyperglycemia, with long-term current use of insulin (CMS/HCC) (Primary Dx); Type 2 diabetes mellitus with hyperglycemia (CMS/HCC) 08/14/2024 Telephone [facility] [address] [place] [address] Amira Ayoub PharmD 08/14/[address] [address] Rosalind Cardoso FNP Appointment Request 08/14/2024 Orders Only [facility] [address] [place] [address] Rosalind Cardoso FNP Type 2 diabetes mellitus with stage 3 chronic kidney disease, with long-term current use of insulin, unspecified whether stage 3a or 3b CKD (CMS/HCC); Primary hypertension; Stage 3b chronic kidney disease (CMS/HCC); 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 (CMS/HCC) 08/13/2024 Telephone [facility] [address] [place] [address] Alix Hodges, RN Results 08/07/2024 Orders Only [address] [id number] Rosalind Cardoso FNP Type 2 diabetes mellitus with stage 3 chronic kidney disease, with long-term current use of insulin, unspecified whether stage 3a or 3b CKD (CMS/HCC); Myalgia 08/05/2024 Telephone [facility] [address] [place], [place] [phone] Rosalind Cardoso FNP 08/04/2024 Orders Only GENERIC EXTERNAL DATA DEPARTMENT Provider, Generic External Data 08/03/2024 9:00 AM EST Office Visit [facility] [address] [place], [place] [phone] Rosalind Cardoso FNP Type 2 diabetes mellitus with stage 3 chronic kidney disease, with long-term current use of insulin, unspecified whether stage 3a or 3b CKD (CMS/HCC) (Primary Dx); Routine health maintenance; Type 2 diabetes mellitus with foot ulcer, with long-term current use of insulin (CMS/HCC); Primary hypertension; Stage 3b chronic kidney disease ([facility]/HCC); Supraventricular tachycardia (CMS/HCC); 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 (CMS/HCC); Peripheral vascular disease (CMS/HCC) 08/03/2024 Refill [facility] [address] [place] [address] Rosalind Cardoso, OFFICE COMMUNICATION PROFESSOR Type 2 diabetes mellitus with foot ulcer, with long-term current use of insulin ([facility]/HCC) 08/03/2024 Telephone [facility] [address] [place] [address] Rosalind Cardoso, OFFICE COMMUNICATION PROFESSOR Referral 08/03/2024 Travel 07/31/2024 Telephone [facility] [address] [place] [address] Glenn Winn [place] Chart Prep 07/31/2024 Orders Only [facility] [address] [place] [address] Rosalind Cardoso, OFFICE COMMUNICATION PROFESSOR Type 2 diabetes mellitus with stage 3 chronic kidney disease, with long-term current use of insulin, unspecified whether stage 3a or 3b CKD ([facility]); Primary hypertension; Stage 3b chronic kidney disease ([facility]/HCC); 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 ([facility]/HCC) 07/29/2024 Telephone [facility] [address] [place] [address] Rosalind Cardoso, OFFICE COMMUNICATION PROFESSOR Durable Medical Equipment 07/24/2024 Orders Only [facility] [address] [place] [address] Rosalind Cardoso, OFFICE COMMUNICATION PROFESSOR Type 2 diabetes mellitus with stage 3 chronic kidney disease, with long-term current use of insulin, unspecified whether stage 3a or 3b CKD ([facility]/HCC); Myalgia 07/17/2024 Orders Only [facility] [address] [place] [address] Rosalind Cardoso, OFFICE COMMUNICATION PROFESSOR Type 2 diabetes mellitus with stage 3 chronic kidney disease, with long-term current use of insulin, unspecified whether stage 3a or 3b CKD ([facility]/HCC); Primary hypertension; Stage 3b chronic kidney disease ([facility]); 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 ([facility]/HCC) 07/11/2024 Refill [facility] [address] [place] [address] Rosalind Cardoso FNP Low back pain at multiple sites 07/10/2024 Orders Only [facility] [address] [place] [address] Rosalind Cardoso FNP Type 2 diabetes mellitus with stage 3 chronic kidney disease, with long-term current use of insulin, unspecified whether stage 3a or 3b CKD ([facility]); Myalgia from Last 3 Months Social History Tobacco [...] 08/03/2024 9:05 AM EST Plan of Treatment Health Maintenance Due Date Last Done Comments CT Colonography 1963 Colonoscopy 1963 Colorectal Cancer Screening 1963 FIT DNA/Cologuard 1963 FIT 1963 FOBT 1963 Sigmoidoscopy 1963 Eye Exam 1973 Alcohol/Substance Use Screening 1975 DTaP/Tdap/Td Vaccines (1 - Tdap) 1982 Pneumococcal Vaccine: 50+ Years (1 of 2 - PCV) 1982 Pap Smear 1984 Cervical Cancer Screening 1993 HPV/Cotest 1993 Zoster Vaccines (1 of 2) 2013 RSV Patients and Patients Aged 60 years or older (1 - Risk 60-74 years 1-dose series) 2023 Diabetes: Foot Exam 07/31/2023 07/31/2022, 07/31/2022, 07/31/2022, Additional history exists COVID-19 Vaccine ( - 2023- season) 2024 Influenza Vaccine (#1) 2024 SDOH Screening 08/01/2024 08/01/2023 Diabetes: Hemoglobin A1C 11/01/2024 025, 10/02/2023, 04/12/2023, Additional history exists Mammogram 11/28/2024 11/29/2023, 11/05, 11/23/2022, Additional history exists Depression Screening 08/03/2025 08/03/2024, 08/03/19 25 Tobacco Screening 08/03/2025 08/03/2024 Lipid Panel 10/02/2025 10/02/2024, 11/08/2023, 09/10/2023, Additional history exists HIV Screening Completed 08/22/2021 Hepatitis C Screening [...] AUTO DIFFERENTIAL Routine 10/06/2024 10:27 AM EDT PROTHROMBIN TIME-INR Routine 10/06/2024 10:27 AM EDT Type 2 diabetes mellitus with stage 3 chronic kidney disease, with long-term current use of insulin, unspecified whether stage 3a or 3b CKD (CMS/HCC) Primary hypertension Stage 3b chronic kidney disease (CMS/HCC) 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 (CMS/HCC) SED RATE BY MODIFIED WESTERGREN Routine 10/06/2024 10:27 AM EDT Type 2 diabetes mellitus with stage 3 chronic kidney disease, with long-term current use of insulin, unspecified whether stage 3a or 3b CKD (CMS/HCC) Primary hypertension Stage 3b chronic kidney disease (CMS/HCC) 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 (CMS/HCC) C-REACTIVE PROTEIN Routine 10/06/2024 10 :27 AM [...] and fibula (CMS/HCC) LIPID PANEL, STANDARD Routine 10/02/2024 3:12 PM EDT CBC WITH AUTO DIFFERENTIAL Routine 10/02/2024 3:12 PM EDT C-REACTIVE PROTEIN Routine 10/02/2024 3: 12 PM [...] tibia and fibula (CMS/HCC) PROTHROMBIN TIME-INR Routine 10/02/2024 3:12 PM EDT Type 2 diabetes mellitus with stage 3 chronic kidney disease, with long-term current use of insulin, unspecified whether stage 3a or 3b CKD (CMS/HCC) Myalgia CBC WITH AUTO DIFFERENTIAL Routine 08/04/2024 10:17 AM EST SED RATE BY MODIFIED WESTERGREN Routine 08/04/2024 [...] tibia and fibula (CMS/HCC) C-REACTIVE PROTEIN Routine 08/04/2024 10 :17 AM EST Type 2 diabetes mellitus with stage 3 chronic kidney disease, with long-term current use of insulin, unspecified whether stage 3a or 3b CKD (CMS/HCC) Myalgia PROTHROMBIN TIME-INR Routine 08/04/2024 10:17 AM EST Type 2 diabetes mellitus with stage 3 chronic kidney disease, with long-term current use of insulin, unspecified whether stage 3a or 3b CKD (CMS/HCC) Myalgia TYPE AND SCREEN Routine 08/04/2024 10:15 AM EST POCT GLYCATED HEMOGLOBIN, TOTAL Routine 08/03/2024 10:14 [...] whether stage 3a or 3b CKD (CMS/HCC) BI MAMMOGRAM SCREENING TOMOSYNTHESIS BILATERAL Routine 11/29/2023 2:40 PM EDT ZZZ HISTORICAL HEPATITIS C AB W/REFL TO HCV RNA, QN, PCR Routine 08/22/2021 8:22 AM EST HIV 1/2 ANTIGEN/ANTIBODY, FOURTH GENERATION W/RFL Routine 08/22/2021 8:22 AM EST from Last 3 Months or Most Recently Relevant to Health Maintenance Results * (ABNORMAL) CBC auto differential (10/06/2024 10:27 AM EDT) Only the most recent of3 resultswithin the time period is included. White Blood Count 9.0 4.8 - 10.8 X10*3/uL [facility] Red Blood Count 4.55 4.20 - 5.50 X10*6/uL [facility] Hemoglobin 8.6(L) 12.0 - 16.0 g/dl [facility] Hematocrit 27.5(L) 37.0 - 47.0 % [facility] Mean Corpuscular Volume 60.4(L) 80.0 - 98.0 fL [facility] Mean Corpuscular Hemoglobin 18.9(L) 27.0 - 33.0 pg [facility] Mean Corpuscular HGB Conc 31.3 31.0 - 35.0 g/dl [facility] Red Cell Distribution Width 17.9(H) 11.0 - 16.0 % [facility] Platelet Count 343 160 - 400 X10*3/uL [facility] Mean Platelet Volume 10.0 9.4 - 12.3 fL [facility] Neutrophils Percent Auto 53.7 45 - 73 % [facility] Imm Gran Pct Auto 0.4 0.0 - 0.4 % [facility] Lymphocytes Percent Auto 34.5 20 - 40 % [facility] Monocytes Percent Auto 7.0 2 - 11 % [facility] Eosinophils Percent Auto 3.7 0 - 4 % [facility] Basophils Percent Auto 0.7 0 - 2 % [facility] NRBC Pct Auto 0.0 0.0 - 0.2 /100WBC [facility] Neutrophils Absolute Auto 4.9 2.0 - 8.3 x10*3/uL [facility] Imm Gran Abs Auto 0.04(H) 0.00 - 0.03 X10*3/uL [facility] Lymphocytes Absolute Auto 3.1 1.2 - 4.9 X10*3/uL [facility] Monocytes Absolute Auto 0.6 0.1 - 1.2 X10*3/uL [facility] Eosinophils Absolute Auto 0.3 0.0 - 0.4 X10*3/uL [facility] Basophils Absolute Auto 0.1 0.0 - 0.2 X10*3/uL [facility] NRBC Abs Auto 0.000 0.0 - 0.012 X10*3/uL [facility] 10/06/2024 10:2 7 AM EDT 10/06/2024 10:27 AM EDT us Generic External Data Provider LAB BLOOD ORDERAB LES Final Result Performing Organization Address City/[facility]/ZIP Co de Phone Number [facility] [address] [place] [phone] * (ABNORMAL) Sed Rate by Modified Westergren (10/06/2024 10:27 AM EDT) Only the most recent of3 resultswithin the time period is included. Erythrocyte Sedimentation Rate 53(H) 0 - 20 MM/HR [facility] Comment:Patients with polycy themia and many hemoglobin abnormalitiesmay have depressed sed rates whereas patients with anemiamay have elevated sed rates. Blood Venous blood specimen / Unknown 10/06/2024 10:27 AM EDT 10/06/2024 10:27 AM EDT us Rosalind Cardoso OFFICE COMMUNICATION PROFESSOR LAB BLOOD ORDERABLES Final Res ult Performing Organization Address [facility]/ZIP Co de Phone Number [facility] [address] [place] [address] [phone] * (ABNORMAL) Prothrombin Time-INR (10/06/2024 10:27 AM EDT) Only the most recent of3 resultswithin the time period is included. Prothrombin Time 10.4(L) 10.9 - 12.4 SEC [facility] INTERNATIONAL NORM RATIO 0.9 0.9 - 1.1 [facility] Comment:INTERNATIONAL NORMAL IZED RATIO (INR) REFERENCE [...] 10/06/2024 10:27 AM EDT us Rosalind Cardoso OFFICE COMMUNICATION PROFESSOR LAB BLOOD ORDERABLES Final Res ult Performing Organization Address City/[facility]/ZIP Co de Phone Number [facility] [address] [place] [address] [phone] * (ABNORMAL) C-reactive Protein (10/06/2024 10:27 AM EDT) Only the most recent of3 resultswithin the time period is included. C Reactive Protein 0.59(H) < or = 0.50 mg/dL [facility] Blood Venous blood specimen / Unknown 10/06/2024 10:27 AM EDT 10/06/2024 10:27 AM EDT us Rosalind Cardoso OFFICE COMMUNICATION PROFESSOR LAB BLOOD ORDERABLES Final Res ult Performing Organization Address [facility] Co de Phone Number [facility] [address] [place] [address] [phone] * Magnesium (10/06/2024 10:27 AM EDT) Only the most recent of3 resultswithin the time period is included. Magnesium 2.0 1.6 - 2.6 mg/dL [facility] Blood Venous blood specimen / Unknown 10/06/2024 10:27 AM EDT 10/06/2024 10:27 AM EDT us Rosalind Cardoso OFFICE COMMUNICATION PROFESSOR LAB BLOOD ORDERABLES Final Res ult Performing Organization Address City/[facility] Co de Phone Number [facility] [address] [place] [phone] * (ABNORMAL) Comprehensive Metabolic Panel (10/06/2024 10:27 AM EDT) Only the most recent of3 resultswithin the time period is included. Sodium 134(L) 135 - 145 mmol/L [facility] Potassium 4.4 3.3 - 5.1 mmol/L [facility] Chloride 101 96 - 108 mmol/L [facility] Carbon Dioxide 24 22 - 29 mmol/L [facility] Anion Gap 13 12 - 20 [facility] Urea Nitrogen (BUN) 85(H) 9 - 16 mg/dL [facility] Creatinine, Serum 2.35(H) 0.5 - 1.4 mg/dL [facility] Estimated Glomerular Filt Rate 21 [facility] Comment:Chronic Kidney Disea se: Estimated GFR < 60 mL/min/1.89c0Xtouhh Kidney Disease: Estimated GFR < 15 mL/min/1.73m2 Glucose 298(H) 60 - 115 mg/dL [facility] Calcium 9.6 8.4 - 10.2 mg/dL [facility] Bilirubin, Total 0.3 0.0 - 1.0 mg/dL [facility] Aspartate Amino Transferase 15 5 - 31 U/L [facility] Alanine Aminotransferase 7 0 - 31 U/L [facility] Total Protein 6.9 6.5 - 8.0 g/dL [facility] Albumin Level 3.6 3.5 - 5.0 g/dL [facility] Alkaline Phosphatase 91 39 - 117 U/L [facility] Blood Venous blood specimen / Unknown 10/06/2024 10:27 AM EDT 10/06/2024 10:27 AM EDT us Rosalind Cardoso OFFICE COMMUNICATION PROFESSOR LAB BLOOD ORDERABLES Final Res ult [facility] [address] [place] [address] [phone] * (ABNORMAL) Lipid Panel, Standard (10/02/2024 3:12 PM EDT) Triglycerides 323(H) <150 mg/dL [facility] Comment:Desirable Triglyceri de: less than 150 mg/dLBorderline High Triglyceride 150-199 mg/dLHigh Triglyceride: 200-499 mg/dLVery High Triglyceride: greater than or equal to 5OO mg/dL Cholesterol 311(H) <200 mg/dL [facility] Comment:Desirable Cholestero l: less than 200 mg/dLBorderline High Cholesterol: 200-239 mg/dLHigh Cholesterol: greater than 239 mg/dL LDL Cholesterol Calculated 212(H) <100 mg/dL [facility] Comment:Desirable LDL: less than 100 mg/dLNear Optimal/Above Optimal LDL: 110- 129 mg/dLBorderline High LDL: 130-159 mg/dLHigh LDL: 160-189 mg/dLVery High LDL: greater than or equal to 190 mg/dL HDL Cholesterol 35(L) >40 mg/dL [facility] Comment:Desirable HDL: great er than 40 mg/dL Note: This HDL assay may give artificially low results in patients with liver disease. 10/02/2024 3:12 PM EDT 10/02/2024 3:12 PM EDT us Generic External Data Provider LAB BLOOD ORDERAB LES Final Result Performing Organization Address [facility]/ZIP Co de Phone Number [facility] [address] [place] [phone] * Type and screen (08/04/2024 10:15 AM EST) Blood Type OP [facility] Antibody Screen NEGATIVE [facility] 08/04/2024 10:1 5 AM EST 08/04/2024 10:23 AM EST Narrative [facility] - 08/04/2024 11:09 AM EST WITNESSED BY JOSELUIS us Generic External Data Provider LAB BLOOD BANK TE ST ORDERABLES Final Result Performing Organization Address City/[facility]/ZIP Co de Phone Number [facility] [address] [place] [address] [phone] * (ABNORMAL) POCT HGB A1C (08/03/2024 10:14 AM EST) Hemoglobin A1C 14.8(A) 4.0 - 6.0 % QC Media Lot # [id number] Lot# Expiration Date [id number] Blood 08/03/2024 10:1 4 AM EST us Rosalind Cardoso OFFICE COMMUNICATION PROFESSOR POINT OF CARE TEST ENTER/EDIT ORDERABLES Final Result * (ABNORMAL) POCT Glucose (08/03/2024 10:13 AM EST) Glucose Blood, POC 247(A) 60 - 200 mg/dL Comment:fasting QC Media Lot # [id number] Lot# Expiration Date 4,825 Blood Capillary blood specimen / Unknown 08/03/2024 10:13 AM EST us Rosalind Cardoso OFFICE COMMUNICATION PROFESSOR POINT OF CARE TEST ENTER/EDIT ORDERABLES Final Result * BI Mammogram Screening Tomosynthesis Bilateral (11/29/2023 2:40 PM EDT) Anatomical Region Laterality Modality Breast Bilateral Mammography 11/29/2023 2:40 PM EDT Narrative 12/27/2023 3:26 PM EDT ? [facility] [place] ? [address] ?[place] [address] ? Mammography Report ? Signed ? Patient: Manus,Mitra ?MR#: [id number] ? : 1965 ?Acct:[id number] ? Age/Sex: 58 / F ?ADM Date: 05/24/24 ? Loc: HO.MAMMO ? Attending Dr: Rosalind Cardoso OFFICE COMMUNICATION PROFESSOR ? Ordering Physician: Janae,Rosalind OFFICE COMMUNICATION PROFESSOR ?Results: 1Negat ?? moncho ? Date of Service: 11/29/23 ?Follow Up: 1 Year From Orig ?? inal Mammogram ? Procedure(s): MM tomosynthesis screening BI ?? Accession Number(s): [id number] ? cc: Rosalind Cardoso OFFICE COMMUNICATION PROFESSOR ? EXAMINATION: ?? MM SCREENING DIGITAL BREAST [...] by Yoli Childs MD in OV> ? 06// 1522 ? DD/DT: //24 1440 ? TD/TT: ? Entry Level Civil Engineer: ? Procedure Note Mauri, Image - 12/27/2023 [facility] [address] [place], [place] [address] Mammography Report Signed Patient: Dany Parish#: [id number] : 1965Acct:[id number] Age/Sex: 58 / FADM Date: 11/29/23 Loc: HO.MAMMO Attending Dr: Rosalind Cardoso OFFICE COMMUNICATION PROFESSOR Ordering Physician: Rosalind Cardoso FNPResults: 1Negat moncho Date of Service: 11/29/23Follow Up: 1 Year From Orig inal Mammogram Procedure(s): MM tomosynthesis screening BI Accession Number(s): [id number] cc: Rosalind Cardoso EXAMINATION: MM SCREENING DIGITAL [...] in OV> 12/27/23 1522 DD/ 1440 TD/TT: Entry Level Civil Engineer: Rosalind MORELOS IMG BI PROCEDURES Final Result * HEPATITIS C AB W/REFL TO HCV RNA, QN, PCR (08/22/2021 8:22 AM EST) HEPATITIS C ANTIBODY NON-REACT [facility] NON-REACT [facility] INDEX 0.02 <1.00 [facility] Comment: ?? HCV antibody was non-reactive. There is no laboratory ?? evidence of HCV infection. ?? In most cases, no further action is required. However, if recent HCV exposure is suspected, a test for HCV RNA (test code 27344) is suggested. ?? For additional information please refer to http://[employer]/faq/EGD16b9 (This link is being provided for informational/ educational purposes only.) ?? 08/22/2021 8:22 AM EST us Rosalind MORELOS HISTORICAL/NON ORDERABLE LABS Final Result Performing Organization Address City/State/[facility] Co de Phone Number [facility] [address] [place] [address], * HIV 1/2 ANTIGEN/ANTIBODY,FOURTH GENERATION W/RFL (08/22/2021 8:22 AM EST) HIV-1/2 ANTIGEN AND ANTIBODIES, 4TH GENERATION W/ REFLEX NON-REACT [facility] NON-REACT [facility] Comment: HIV-1 antigen and HIV-1/HIV-2 [...] ? For additional information please refer to http://[employer]/faq/ZIK122 (This link is being provided for informational/ educational purposes only.) ? The performance of this assay has not been clinically validated in patients less than 2 years old. ?? 08/22/2021 8:22 AM EST us Rosalind MORELOS LAB BLOOD ORDERABLES Final Res ult [facility] [address] from Last 3 Months or Most Recently Relevant to Health Maintenance Insurance Care Teams Caregivers Non Medical Relationship Specialty Start Date End Date Rosalind Cardoso FNP [address] [place] [phone] PCP - General Family Medicine 04/28/21
--- OUTSIDE RECORDS SUMMARY | 2024-10-06 11:57 | XMS_ITS | Clinical Summary ---
Author Organization [address] [place] [address] Address [address] [place] [address] Phone Care Team Providers Care Child Support Case Officer Name Role Phone Physician, Pcp Unknown Primary Care Provider Felecia vailable Allergies No known active allergies Medications furosemide (LASIX) 40 mg tablet Take 2 tablets (80 mg total) by mouth 1 (one) time each day. Active lisinopriL (PRINIVIL,ZESTR IL) 20 mg tablet Take 0.5 Tablets by [...] 400 mg magnesium tablet Take by mouth. Activ e metFORMIN (GLUCOPHAGE) 1,000 mg tablet Take 1 [...] mcg (1,000 unit) tablet Take by mouth. Ac tive acetaminophen (TYLENOL) 325 mg tablet Take 2 [...] mL gel in packet Take by mouth. Activ e insulin glargine (LANTUS) 100 unit/mL injection Inject into the skin at bedtime. Active white petrolatum ointment Apply topically if needed for dry skin. 368 g 3 5 08/10/19 26 Active Active Problems Problem Noted Date Diagnosed Date DM2 (diabetes mellitus, type 2) 10/22/2022 Hx of BKA, left 10/22/2022 Hyperlipidemia 10/22/2022 Hypertension 10/22/2022 PAD (peripheral artery disease) 10/22/2022 Vitamin D deficiency 10/22/2022 Encounters Date Type Department Care Team Description 10/05/2024 3:00 PM EDT Office Visit Vascular Surgery - [place] [address] [place] [phone] Nu Holt PA PAD (peripheral artery disease) (CMS/HCC) (Primary Dx) 08/10/2024 2:15 PM EST Office Visit Orthopedic Surgery - [place] [address] [facility] [address] [place] [phone] Raheel Quijano, DPM Fissure in skin of right foot (Primary Dx); Dermatophytosis of nail; Pain in toe of right foot; Type II diabetes mellitus with peripheral circulatory disorder (CMS/HCC); Diabetic mononeuropathy simplex (CMS/HCC); History of amputation from Last 3 Months Surgical History Surgery Date Site/Laterality Comments OTHER SURGICAL HISTORY 09/01/2022 Left PROCEDURE: [place] AMPUTATION LEG THROUGH TIBIA&FIBULA Social History Tobacco Use Types Packs/Day Years Used Date Smoking Tobacco: Never Smokeless Tobacco: Never Comments Unknown Sex and Gender Information Value Date Recorded Sex Assigned at Not on file Legal Sex Female 8:42 PM EST Gender Identity Not on file Sexual Orientation Not on file Obstetrics History Last Filed Vital Signs Vital Sign Reading Time Taken Comments Blood Pressure 129/56 10/05/2024 3:14 PM EDT Pulse 83 10/05/2024 3:14 PM EDT Temperature - - Respiratory Rate - - Oxygen Saturation - - Inhaled Oxygen Concentration - - Weight 98.9 kg (218 lb) 08/10/2024 2:35 PM EST Height 152.4 cm (5') 10/05/2024 3:14 PM EDT Body Mass Index 42.58 08/10/2024 2:35 PM EST Plan of Treatment Upcoming Encounters Date Type Department Care Team (Late st Contact Info) Description 11/09/2024 2:00 PM EDT Office Visit Orthopedic Surgery - [place] [address] [facility] [address] [place] [phone] Raheel Quijano DPLatonya [address] [facility] [address] [place] [address] 01/06/2025 1:00 PM EDT Office Visit Vascular Surgery - [place] [address] [facility] [address] [place] [address] Oralia Borden MD [address] [facility] [address] [place] [address] Health Maintenance Due Date Last Done Comments Breast Cancer Screening 1965 Diabetes: Annual Foot Exam 1973 Diabetes: Annual Retina Eye Exam 1973 DTaP,Tdap,and Td Vaccines (1 - Tdap) 1982 Pneumococcal Vaccine: 50+ Years (1 of 2 - PCV) 1982 Pneumococcal Vaccine: Pediatrics (0 to 5 Years) and At-Risk Patients (6 to 64 Years) (1 of 2 - PCV) 1982 Cervical Cancer Screening: Pap Smear 1984 Zoster Vaccines (1 of 2) 2013 RSV Immunization Patients 60+ Years Old (1 - Risk 60-74 years 1-dose series) 2023 Colorectal Cancer Screening: Colonoscopy 08/02/2023 Hepatitis C Screening 08/02/2023 Medicare Annual Wellness Visit 08/02/2023 Social Influencers of Health Screening 08/02/2023 Diabetes: Annual Urine Albumin-Creatinine Ratio (uACR) 08/21/2023 COVID-19 Vaccine ( season) 2024 Influenza Vaccine (#1) 2024 Diabetes: Blood Sugar Control Test (HGBA1C) 01/31/2025 08/03/2024 Depression Screening 08/03/2025 08/03/2024 Diabetes: Annual GFR (Glomerular Filtration Rate) 10/02/2025 10/02/2024, 08/04/2024, 07/07/2024, Additional history exists Hypertension/CHF/CAD Annual BMP Blood Test 10/02/2025 10/02/2024, 08/04/2024, 07/07/2024, Additional history exists Cholesterol Screening (Lipid Panel) 10/02/2029 10/02/2024, 05/29/2024 HIV Screening Completed 08/22/2021 HIB Vaccines Aged Out [...] patient's age to complete this topic Meningococcal B Vacine Aged Out No lo nger eligible based on patient's age to complete this topic RSV Immunization Patients Under 20 months Aged Out No longer eligible based on patient's age to complete this topic Varicella Vaccines Aged Out No longer eligible based on patient's age to complete this topic Insurance MEDICAID - [place] [employer] MEDICARE Member Subscriber Plan / Payer (Ef fective 2016-Present) Name:Mitra Parish Relation to Subscriber:Self Name:Mitra Parish Payer ID:[id number] Group ID:[id number] Type:Not on file Address: [address] [place] [phone] Advance Directives Documents on File Type Date Recorded 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
--- OUTSIDE RECORDS SUMMARY | 2024-10-06 11:57 | XMS_ITS | Encounter Summary ---
Author Organization [employer] Address [address] [facility] 7[address] [place] [address] Care Team Providers Care Flare Maker Name Role Phone Rosalind Cardoso Primary Care Provider [phone] Reason for Visit * Reason Onset Date Comments Nurse Triage 06/08/2024 Encounter Details Date Type Department Care Team ([facility] st Contact Info) Description 06/08/2024 Telephone [facility] MED[facility] [address] [place] [address] Rosalind Cardoso FNP [address] [place] [address] Nurse Triage Social History Tobacco Use Types [...] nereyda. Pt is advised to come to [facility] today to be seen by provider but, unable to obtain transportation. Pt will come tomorrow to [facility]. Hours 830am - 800pm given. Insurance is [...] documented as of this encounter Care Teams Flare Maker Relationship Specialty Start Date End Date Rosalind Cardoso FNP [address] [place] [phone] PCP - General Family Medicine 04/28/21 documented as of this encounter
--- OUTSIDE RECORDS SUMMARY | 2024-10-06 11:57 | XMS_ITS | Encounter Summary ---
Author Organization [employer] Address [address] [place] [address] 7 [place] [address] Care Team Providers Care Lcac Operator Name Role Phone Rosalind Cardoso Primary Care Provider [phone] Reason for Visit * Reason Comments Med Refill Encounter Details Date Type Department Care Team ([facility] st Contact Info) Description 07/10/2022 Refill [facility] [address] [place], [place] [phone] Rosalind Cardoso FNP [address] [place], [place] [phone] Primary hypertension; Type 2 diabetes mellitus with other specified complication, unspecified whether terminal manager insulin use ([facility]) Social History Tobacco Use Types Packs/Day [...] mellitus with other specified complication, unspecified whether usp insulin use ([facility]) documented in this encounter Care Teams Lcac Operator Relationship Specialty Start Date End Date Rosalind Cardoso FNP [address] [place] [phone] PCP - General Family Medicine 04/28/21 documented as of this encounter
--- OUTSIDE RECORDS SUMMARY | 2024-10-06 11:57 | XMS_ITS | Encounter Summary ---
Author Organization [employer] Address [address] [facility] 7t [place] [address] Care Team Providers Care Tawer Name Role Phone Rosalind Cardoso Primary Care Provider [phone] Encounter Details Date Type Department Care Team (Late st Contact Info) Description 09/20/2023 Orders Only [facility] MEDICINE [address] [place] [address] Rosalind Cardoso FNP [address] [place] [address] Type 2 diabetes mellitus with stage 3 [...] or 3b CKD (CMS/HCC) Myalgia MAGNESIUM Routine 09/27/2023 9:56 AM EDT Type 2 diabetes mellitus with stage 3 chronic kidney disease, with long-term current use of insulin, unspecified whether stage 3a or 3b CKD (CMS/HCC) Myalgia COMPREHENSIVE METABOLIC PANEL Routine 09/27/2023 9:56 AM EDT Type 2 diabetes mellitus with stage 3 chronic kidney disease, with long-term current use of insulin, unspecified whether stage 3a or 3b CKD ([facility]/HCC) Myalgia documented in this encounter Results * (ABNORMAL) Sed Rate by Modified Westergren (09/27/2023 9:56 AM EDT) Erythrocyte Sedimentation Rate 42(H) 0 - 20 MM/HR [facility] Comment:Patients with polycy themia and many hemoglobin abnormalitiesmay have depressed sed rates whereas patients with anemiamay have elevated sed rates. Blood Venous blood specimen / Unknown 09/27/2023 9:56 AM EDT 09/27/2023 9:58 AM EDT Rosalind Cardoso VISUAL MERCHANDISING SPECIALIST LAB BLOOD ORDERABLES Final Res ult Performing Organization Address City/[facility]/ZIP Co de Phone Number [facility] [address] [place] [phone] * (ABNORMAL) C-reactive Protein (09/27/2023 9:56 AM EDT) Pathologist [facility] C Reactive Protein 0.63(H) < or = 0.50 mg/dL [facility] Blood Venous blood specimen / Unknown 09/27/2023 9:56 AM EDT 09/27/2023 9:58 AM EDT Rosalind Cardoso VISUAL MERCHANDISING SPECIALIST LAB BLOOD ORDERABLES Final Res ult Performing Organization Address [facility]/ZIP Co de Phone Number [facility] [address] [place] [phone] * Magnesium (09/27/2023 9:56 AM EDT) Magnesium 1.7 1.6 - 2.6 mg/dL [facility] Blood Venous blood specimen / Unknown 09/27/2023 9:56 AM EDT 09/27/2023 9:58 AM EDT Rosalind Cardoso [facility] LAB BLOOD ORDERABLES Final Res ult Performing Organization Address [facility] Co de Phone Number [facility] [address] [place] [phone] * Prothrombin Time-INR (09/27/2023 9:56 AM EDT) Prothrombin Time 11.5 11.1 - 13.3 SEC [facility] INTERNATIONAL NORM RATIO 0.9 0.9 - 1.1 [facility] Comment:INTERNATIONAL NORMAL IZED RATIO [...] EDT 09/27/2023 9:58 AM EDT Rosalind Cardoso [facility] LAB BLOOD ORDERABLES Final Res ult Performing Organization Address [facility] Co de Phone Number [facility] [address] [place] [phone] * (ABNORMAL) Comprehensive Metabolic Panel (09/27/2023 9:56 AM EDT) Sodium 140 135 - 145 mmol/L [facility] Potassium 3.8 3.3 - 5.1 mmol/L [facility] Chloride 105 96 - 108 mmol/L [facility] Carbon Dioxide 27 22 - 29 mmol/L [facility] Anion Gap 12 12 - 20 [facility] Urea Nitrogen (BUN) 36(H) 9 - 16 mg/dL [facility] Creatinine, Serum 1.55(H) 0.5 - 1.4 mg/dL [facility] Estimated Glomerular Filt Rate 34 [facility] Comment:NOTE: For -Am erican individuals, multiply the result by 1.210.Chronic Kidney Disease: Estimated GFR < 60 mL/min/1.15d7Baeoze Kidney Disease: Estimated GFR < 15 mL/min/1.73m2 Glucose 191(H) 60 - 115 mg/dL [facility] Calcium 9.2 8.4 - 10.2 mg/dL [facility] Bilirubin, Total 0.3 0.0 - 1.0 mg/dL [facility] Aspartate Amino Transferase 22 5 - 31 U/L [facility] Alanine Aminotransferase 35(H) 0 - 31 U/L [facility] Total Protein 6.3(L) 6.5 - 8.0 g/dL [facility] Albumin Level 3.2(L) 3.5 - 5.0 g/dL [facility] Alkaline Phosphatase 125(H) 39 - 117 U/L [facility] Blood Venous blood specimen / Unknown 09/27/2023 9:56 AM EDT 09/27/2023 9:58 AM EDT Rosalind Cardoso [facility] LAB BLOOD ORDERABLES Final Res ult [facility] [address] [place] [phone] * (ABNORMAL) CBC auto differential (09/27/2023 9:56 AM EDT) White Blood Count 8.6 4.8 - 10.8 X10*3/uL [facility] Red Blood Count 4.52 4.20 - 5.50 X10*6/uL [facility] Hemoglobin 8.8(L) 12.0 - 16.0 g/dl [facility] Hematocrit 29.9(L) 37.0 - 47.0 % [facility] Mean Corpuscular Volume 66.2(L) 80.0 - 98.0 fL [facility] Mean Corpuscular Hemoglobin 19.5(L) 27.0 - 33.0 pg [facility] Mean Corpuscular HGB Conc 29.4(L) 31.0 - 35.0 g/dl [facility] Red Cell Distribution Width 18.4(H) 11.0 - 16.0 % [facility] Platelet Count 370 160 - 400 X10*3/uL [facility] Mean Platelet Volume 10.5 9.4 - 12.3 fL [facility] Neutrophils Percent Auto 66.9 45 - 73 % [facility] Imm Gran Pct Auto 0.6(H) 0.0 - 0.4 % [facility] Lymphocytes Percent Auto 21.8 20 - 40 % [facility] Monocytes Percent Auto 7.0 2 - 11 % [facility] Eosinophils Percent Auto 3.0 0 - 4 % [facility] Basophils Percent Auto 0.7 0 - 2 % [facility] NRBC Pct Auto 0.0 0.0 - 0.2 /100WBC [facility] Neutrophils Absolute Auto 5.7 2.0 - 8.3 x10*3/uL [facility] Imm Gran Abs Auto 0.05(H) 0.00 - 0.03 X10*3/uL [facility] Lymphocytes Absolute Auto 1.9 1.2 - 4.9 X10*3/uL [facility] Monocytes Absolute Auto 0.6 0.1 - 1.2 X10*3/uL [facility] Eosinophils Absolute Auto 0.3 0.0 - 0.4 X10*3/uL [facility] Basophils Absolute Auto 0.1 0.0 - 0.2 X10*3/uL [facility] NRBC Abs Auto 0.000 0.0 - 0.012 X10*3/uL [facility] Blood Venous blood specimen / Unknown 09/27/2023 9:56 AM EDT 09/27/2023 9:58 AM EDT us Rosalind Cardoso VISUAL MERCHANDISING SPECIALIST LAB BLOOD ORDERABLES Final Res ult [facility] [address] [place] [phone] documented in this encounter Visit Diagnoses [...] documented as of this encounter Care Teams Tawer Relationship Specialty Start Date End Date Rosalind Cardoso FNP [address] [place] [address] PCP - General Family Medicine 04/28/21 documented as of this encounter
--- OUTSIDE RECORDS SUMMARY | 2024-10-06 11:57 | XMS_ITS | Encounter Summary ---
Author Organization [employer] Address [address] [place] [address] 7 [place] [address] Care Team Providers Care Site Monitor Name Role Phone Leia Carter Primary Care Provider [phone] Reason for Visit * Reason Onset Date Comments Results 10/05/2024 Lab Orders 10/05/2024 Encounter Details Date Type Department Care Team ([facility] st Contact Info) Description 10/05/2024 Telephone [facility]ED[facility] [address] [place] [address] Leia Carter FNP [address] [place], [place] [phone] Results; Lab Orders Social History Tobacco Use Types [...] as of this encounter Miscellaneous Notes * Addendum Note - TAMY Ram - 10/05/2024 12:49 PM EDTAddended by: LEIA CARTER on: 10/05/2024 12:49 PM Modules accepted: Orders * Telephone Encounter - Michelle Manriquez RN - 10/05/2024 12:38 PM EDT TC to pt. RN explained the severity of her lab work including her glucose, sodium, and creatinine. Pt states that she has not been feeling well lately, however she feels better today. RN explained topt that the TABLE KEEPER wants her to go to the ED if she is not feeling well, and if she starts to feel bad again that she needs to go be evaluated. RN explained that she is going to put in lab work that needs to be done today at either [place] or [place]. Pt states that she has an appointment with hematology tomorrow and that she needs to go to another doctors appointment today and well see if she canget here, unsure of her ride situation to get to [place]. RN reeducated the patient on the severity of her labs and told pt that she does not need to go to [place] for these labs to be done she can get them done anytime today before 4:30 at [facility] or [facility]. Pt verbalized understanding and tod RNthat she would try to make it and would give us a call later to let us know. BMP order placed for cosign with TABLE KEEPER and note routed. documented in this encounter Plan of Treatment Scheduled Orders Name Type Priority Associated Diagnoses Orde r Schedule Basic Metabolic Panel Lab Routine Type 2 diabetes mellitus with stage 3 chronic kidney disease, with long-term current use of insulin, unspecified whether stage 3a or 3b CKD (CMS/HCC) Expected: 10/05/2024 (Approximate), Expires: 10/05/2025 documented as of this encounter Visit Diagnoses Diagnosis Type 2 diabetes mellitus with stage 3 chronic kidney disease, with long-term current use of insulin, unspecified whether stage 3a or 3b CKD (CMS/HCC)- Primary documented in this encounter Additional Health Concerns Assessment Noted Time PHQ-9 Depression Total Score: 6 08/03/19 25 9:07 AM EST documented as of this encounter Care Teams Site Monitor Relationship Specialty Start Date End Date Leia Carter FNP [address] [place] [phone] PCP - General Family Medicine 04/28/21 documented as of this encounter
--- OUTSIDE RECORDS SUMMARY | 2024-10-06 11:57 | XMS_ITS | Encounter Summary ---
Author Organization [employer] Address [address] [facility] 7t [place] [address] Care Team Providers Care Contracting Support Specialist Name Role Phone Rosalind Cardoso Primary Care Provider Encounter Details Date Type Department Care Team (Late st Contact Info) Description 07/24/2024 Orders Only [facility] MEDICINE [address] [place] [address] Rosalind Cardoso FNP [address] [place] [address] Type 2 diabetes mellitus with stage 3 [...] documented as of this encounter Care Teams Contracting Support Specialist Relationship Specialty Start Date End Date Rosalind Cardoso FNP [address] [place] [phone] PCP - General Family Medicine 04/28/21 documented as of this encounter
--- OUTSIDE RECORDS SUMMARY | 2024-10-06 11:57 | XMS_ITS | Encounter Summary ---
Author Organization [employer] Address [address] [place] [address] [address] [place] [address] Care Team Providers Care Comprehensive Advisor Name Role Phone Rosalind Cardoso Primary Care Provider [phone] Encounter Details Date Type Department Care Team ([facility] Contact Info) Description 06/22/2022 Telephone [facility] [address] [place] [address] Emily Matthews RN Social History Tobacco Use [...] on filedocumented in this encounter Care Teams Comprehensive Advisor Relationship Specialty Start Date End Date Rosalind Cardoso FNP [address] [place] [address] PCP - General Family Medicine 04/28/21 documented as of this encounter
--- OUTSIDE RECORDS SUMMARY | 2024-10-06 11:57 | XMS_ITS | Patient Health Record ---
Author Organization [facility] Address [address] [facility] [place] [address] Care Team Providers Care Events Associate Name Role Phone Lesvia Sosa Unavailable [phone] Reason For Referral No Information Medications Medication [...] Oral for 90 Active [employer] Short Pen [place] 31G X 8 MM USE ONCE DAILY [...] Problem Status W/U Status Risk Notes Problem 465305193 Charcot's joint, left ankle and foot (M14.672) Active confirmed Problem 741439610 Hammer toe of ri ght foot (M20.41) Active confirmed Problem 834105164 Hammer toe of le ft foot (M20.42) Active confirmed Problem 293571884 Neuropathy (G62.9) Active confirmed Problem 24730667 Type 2 diabetes mellitus with polyneuropathy (E11.42) Active confirmed Plan Of Treatment Pending Test Test Name Order Date X ray : Foot, left 3V 11/28/2021 X ray : Foot, right 3V 11/28/2021 Insurance Providers Payer Name Payer Address Payer Phone Subscriber Number Group Number Insured Name Patient Relationship to Insured Coverage Start Date Coverage End Date [facility] [employer] Claims [address] [place] [id number] [place] Self - patient is the insured Medical (General) History Medical History History ICD Code Anemia Arthritis Back,Hip,and Knee pain Cholesterol Cataracts Diabetic Headaches/Migraines Heart disease High blood pressure Kidney disease Neuropathy Psoriasis/eczema Measles Chicken pox Surgical History Surgery Date(Month/Year) Angeogram D+C 1987 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
--- OUTSIDE RECORDS SUMMARY | 2024-10-06 11:57 | XMS_ITS | Encounter Summary ---
Author Organization [employer] Address [address] [facility] [address]t [place] [address] Care Team Providers Care Tinning Equipment Tender Name Role Phone Rosalind Cardoso TAMY Primary Care Provider [phone] Encounter Details Date Type Department Care Team ([facility] st Contact Info) Description 10/02/2024 Orders Only GENERIC EXTERNAL DATA DEPARTMENT [...] Diagnosis Comments CBC WITH AUTO DIFFERENTIAL Routine 10/02/2024 3:12 PM EDT LIPID PANEL, STANDARD Routine 10/02/2024 3:12 PM EDT documented in this encounter Results * (ABNORMAL) Lipid Panel, Standard (10/02/2024 3:12 PM EDT) Triglycerides 323(H) <150 mg/dL [facility] Comment:Desirable Triglyceri de: less than 150 mg/dLBorderline High Triglyceride 150-199 mg/dLHigh Triglyceride: 200-499 mg/dLVery High Triglyceride: greater than or equal to 5OO mg/dL Cholesterol 311(H) <200 mg/dL [facility] Comment:Desirable Cholestero l: less than 200 mg/dLBorderline High Cholesterol: 200-239 mg/dLHigh Cholesterol: greater than 239 mg/dL LDL Cholesterol Calculated 212(H) <100 mg/dL [facility] Comment:Desirable LDL: less than 100 mg/dLNear Optimal/Above Optimal LDL: 110- 129 mg/dLBorderline High LDL: 130-159 mg/dLHigh LDL: 160-189 mg/dLVery High LDL: greater than or equal to 190 mg/dL HDL Cholesterol 35(L) >40 mg/dL [facility] Comment:Desirable HDL: great er than 40 mg/dL Note: This HDL assay may give artificially low results in patients with liver disease. 10/02/2024 3:12 PM EDT 10/02/2024 3:12 PM EDT us Generic External Data Provider LAB BLOOD ORDERAB LES Final Result [facility] [address] [place] [phone] * (ABNORMAL) CBC auto differential (10/02/2024 3:12 PM EDT) White Blood Count 9.8 4.8 - 10.8 X10*3/uL [facility] Red Blood Count 4.98 4.20 - 5.50 X10*6/uL [facility] Hemoglobin 9.3(L) 12.0 - 16.0 g/dl [facility] Hematocrit 30.0(L) 37.0 - 47.0 % [facility] Mean Corpuscular Volume 60.2(L) 80.0 - 98.0 fL [facility] Mean Corpuscular Hemoglobin 18.7(L) 27.0 - 33.0 pg [facility] Mean Corpuscular HGB Conc 31.0 31.0 - 35.0 g/dl [facility] Red Cell Distribution Width 18.0(H) 11.0 - 16.0 % [facility] Platelet Count 383 160 - 400 X10*3/uL [facility] Mean Platelet Volume 10.4 9.4 - 12.3 fL [facility] Neutrophils Percent Auto 68.1 45 - 73 % [facility] Imm Gran Pct Auto 0.4 0.0 - 0.4 % [facility] Lymphocytes Percent Auto 21.1 20 - 40 % [facility] Monocytes Percent Auto 6.5 2 - 11 % [facility] Eosinophils Percent Auto 3.2 0 - 4 % [facility] Basophils Percent Auto 0.7 0 - 2 % [facility] NRBC Pct Auto 0.0 0.0 - 0.2 /100WBC [facility] Neutrophils Absolute Auto 6.7 2.0 - 8.3 x10*3/uL [facility] Imm Gran Abs Auto 0.04(H) 0.00 - 0.03 X10*3/uL [facility] Lymphocytes Absolute Auto 2.1 1.2 - 4.9 X10*3/uL [facility] Monocytes Absolute Auto 0.6 0.1 - 1.2 X10*3/uL [facility] Eosinophils Absolute Auto 0.3 0.0 - 0.4 X10*3/uL [facility] Basophils Absolute Auto 0.1 0.0 - 0.2 X10*3/uL [facility] NRBC Abs Auto 0.000 0.0 - 0.012 X10*3/uL [facility] 10/02/2024 3:12 PM EDT 10/02/2024 3:12 PM EDT us Generic External Data Provider LAB BLOOD ORDERAB LES Final Result Performing Organization Address City/State/[facility] Co de Phone Number [facility] [address] [place] [address] [phone] documented in this encounter Visit Diagnoses Not on filedocumented in this encounter Additional Health Concerns Assessment Noted Time PHQ-9 Depression Total Score: 6 08/03/19 25 9:07 AM EST documented as of this encounter Care Teams Tinning Equipment Tender Relationship Specialty Start Date End Date Rosalind Cardoso FNP [address] [place] [address] PCP - General Family Medicine 04/28/21 documented as of this encounter
--- OUTSIDE RECORDS SUMMARY | 2024-10-06 11:57 | XMS_ITS | Encounter Summary ---
Author Organization [employer] Address [address] [facility] 7t [place] [address] Care Team Providers Care Hydrometeorology Teacher Name Role Phone Rosalind Cardoso Primary Care Provider [phone] Reason for Visit * Reason Onset Date Comments Results 08/29/2023 Encounter Details Date Type Department Care Team ([facility] st Contact Info) Description 08/29/2023 Telephone [facility] MEDICINE [address] [place] [address] Rosalind Cardoso FNP [address] [place] [address] Results Social History Tobacco Use Types Packs/Day [...] done today 08/29/23. Please contact pt @ [phone] documented in this encounter Plan of Treatment Not on file documented as of this encounter Visit Diagnoses Not on filedocumented in this encounter Additional Health Concerns Assessment Noted Time PHQ-9 Depression Total Score: 0 12/26/19 23 1:09 PM EDT documented as of this encounter Care Teams Hydrometeorology Teacher Relationship Specialty Start Date End Date Rosalind Cardoso FNP [address] [place] [phone] PCP - General Family Medicine 04/28/21 documented as of this encounter
--- OUTSIDE RECORDS SUMMARY | 2024-10-06 11:57 | XMS_ITS | Encounter Summary ---
Author Organization [employer] Address [address] [facility] [address]t [place] [address] Care Team Providers Care Manager English Name Role Phone Rosalind Cardoso Primary Care Provider [phone] Reason for Visit * Reason Comments Med Refill Encounter Details Date Type Department Care Team ([facility] st Contact Info) Description 05/28/2023 Refill [facility] PEDS [address] [place], [place] [phone] Rosalind Cardoso FNP [address] [place] [address] Other chronic osteomyelitis of left foot (CMS/HCC); [...] as of this encounter Care Teams Manager English Relationship Specialty Start Date End Date Rosalind Cardoso FNP [address] [place] [address] PCP - General Family Medicine 04/28/21 documented as of this encounter
--- OUTSIDE RECORDS SUMMARY | 2024-10-06 11:58 | XMS_ITS | Encounter Summary ---
Author Organization [employer] Address [address] [facility] [address]t [place] [address] Care Team Providers Care Community Development Specialist Name Role Phone Rosalind Cardoso Primary Care Provider [phone] Encounter Details Date Type Department Care Team ([facility] st Contact Info) Description 09/18/2023 Telephone [facility] MEDICINE [address] [place] [address] Rosalind Cardoso FNP [address] [place] [address] Social History Tobacco Use Types Packs/Day Years [...] a call for for televisit with pcp, headline writer didn't see anything tasked. Please contact pt at [phone]. documented in this encounter Plan of Treatment Not on file documented as of this encounter Visit Diagnoses Not on filedocumented in this encounter Additional Health Concerns Assessment Noted Time PHQ-9 Depression Total Score: 0 12/26/19 23 1:09 PM EDT documented as of this encounter Care Teams Community Development Specialist Relationship Specialty Start Date End Date Rosalind Cardoso FNP [address] [place] [phone] PCP - General Family Medicine 04/28/21 documented as of this encounter
--- OUTSIDE RECORDS SUMMARY | 2024-10-06 11:58 | XMS_ITS | Encounter Summary ---
Author Organization [employer] Address [address] [place] [address] [address] [place] [address] Care Team Providers Care Sinter Feeder Name Role Phone Rosalind Cardoso Primary Care Provider [phone] Reason for Visit * Reason Onset Date Comments FYI 09/10/2022 Encounter Details Date Type Department Care Team ([facility] st Contact Info) Description 09/10/2022 Telephone [facility] MEDICINE [address] [place] [address] Rosalind Cardoso FNP [address] [place] [address] FYI Social History Tobacco Use Types Packs/Day [...] If any question please contact Nae at [phone] documented in this encounter Plan of Treatment Not on file documented as of this encounter Visit Diagnoses Not on filedocumented in this encounter Care Teams Sinter Feeder Relationship Specialty Start Date End Date Rosalind Cardoso FNP [address] [place] [address] PCP - General Family Medicine 04/28/21 documented as of this encounter
--- OUTSIDE RECORDS SUMMARY | 2024-10-06 11:58 | XMS_ITS | Encounter Summary ---
Author Organization [employer] Address [address] [facility] 7t [place] [address] Care Team Providers Care Wood Polisher Name Role Phone Rosalind Cardoso Primary Care Provider [phone] Encounter Details Date Type Department Care Team (Late st Contact Info) Description 10/04/2023 Orders Only [facility] MEDICINE [address] [place] [address] Rosalind Cardoso FNP [address] [place] [address] Type 2 diabetes mellitus with stage 3 [...] stage 3a or 3b CKD ([facility]) Myalgia PROTHROMBIN TIME-INR Routine 10/25/2023 1:09 PM EDT Type 2 diabetes mellitus with stage 3 chronic kidney disease, with long-term current use of insulin, unspecified whether stage 3a or 3b CKD ([facility]) Myalgia documented in this encounter Results * (ABNORMAL) Sed Rate by Modified Westergren (10/25/2023 1:09 PM EDT) Erythrocyte Sedimentation Rate 46(H) 0 - 20 MM/HR [facility] Comment:Patients with polycy themia and many hemoglobin abnormalitiesmay have depressed sed rates whereas patients with anemiamay have elevated sed rates. Blood Venous blood specimen / Unknown 10/25/2023 1:09 PM EDT 10/25/2023 1:09 PM EDT us Rosalind Cardoso INTERNAL CARVER LAB BLOOD ORDERABLES Final Res ult [facility] [address] [place] [phone] * Prothrombin Time-INR (10/25/2023 1:09 PM EDT) Prothrombin Time 12.3 11.1 - 13.3 SEC [facility] INTERNATIONAL NORM RATIO 1.0 0.9 - 1.1 [facility] Comment:INTERNATIONAL NORMAL IZED RATIO (INR) [...] EDT 10/25/2023 1:09 PM EDT us Rosalind MORELOS LAB BLOOD ORDERABLES Final Res ult [facility] [address] [place] [phone] documented in this encounter Visit Diagnoses [...] documented as of this encounter Care Teams Wood Polisher Relationship Specialty Start Date End Date Rosalind Cardoso FNP [address] [place] [address] PCP - General Family Medicine 04/28/21 documented as of this encounter
--- OUTSIDE RECORDS SUMMARY | 2024-10-06 11:58 | XMS_ITS | Encounter Summary ---
Author Organization [employer] Address [address] [facility] 7t [place] [address] Care Team Providers Care Graduate Teacher Education Name Role Phone Rosalind Cardoso Primary Care Provider [phone] Reason for Visit * Reason Onset Date Comments Referral 10/10/2023 Encounter Details Date Type Department Care Team ([facility] st Contact Info) Description 10/10/2023 Telephone [facility] MEDICINE [address] [place] [address] Rosalind Cardoso FNP [address] [place] [address] Referral Social History Tobacco Use Types Packs/Day [...] any questions you can contact pt at [phone]. documented in this encounter Plan of Treatment Not on file documented as of this encounter Visit Diagnoses Not on filedocumented in this encounter Additional Health Concerns Assessment Noted Time PHQ-9 Depression Total Score: 0 12/26/19 23 1:09 PM EDT documented as of this encounter Care Teams Graduate Teacher Education Relationship Specialty Start Date End Date Rosalind Cardoso FNP [address] [place] [address] PCP - General Family Medicine 04/28/21 documented as of this encounter
--- OUTSIDE RECORDS SUMMARY | 2024-10-06 11:58 | XMS_ITS | Encounter Summary ---
Author Organization [employer] Address [address] [facility] 7t [place] [address] Care Team Providers Care Manager Aerospace Name Role Phone Rosalind Cardoso Primary Care Provider [phone] Reason for Visit * Reason Onset Date Comments Medication Question 10/22/2023 Encounter Details Date Type Department Care Team ([facility] st Contact Info) Description 10/22/2023 Telephone [facility] MEDICINE [address] [place] [address] Rosalind Cardoso FNP [address] [place] [address] Medication Question Social History Tobacco Use Types [...] as of this encounter Care Teams Manager Aerospace Relationship Specialty Start Date End Date Rosalind Cardoso FNP [address] [place] [address] PCP - General Family Medicine 04/28/21 documented as of this encounter
--- OUTSIDE RECORDS SUMMARY | 2024-10-06 11:58 | XMS_ITS | Encounter Summary ---
Author Organization [employer] Address [address] [facility] 7t [place] [address] Care Team Providers Care Manager Commercial Sales Name Role Phone Rosalind Cardoso Primary Care Provider [phone] Reason for Visit * Reason Onset Date Comments Results 10/29/2023 Encounter Details Date Type Department Care Team ([facility] st Contact Info) Description 10/29/2023 Telephone [facility] MEDICINE [address] [place] [address] Rosalind Cardoso FNP [address] [place] [address] Results Social History Tobacco Use Types Packs/Day [...] as of this encounter Care Teams Manager Commercial Sales Relationship Specialty Start Date End Date Rosalind Cardoso FNP [address] [place] [address] PCP - General Family Medicine 04/28/21 documented as of this encounter
--- OUTSIDE RECORDS SUMMARY | 2024-10-06 11:58 | XMS_ITS | Encounter Summary ---
Author Organization [employer] Address [address] [facility] 7t [place] [address] Care Team Providers Care Dot Compliance Specialist Name Role Phone Rosalind Cardoso Primary Care Provider [phone] Encounter Details Date Type Department Care Team ([facility] st Contact Info) Description 10/29/2023 Telephone [facility] MEDICINE [address] [place] [address] Rosalind Cardoso FNP [address] [place] [address] Social History Tobacco Use Types Packs/Day Years [...] documented as of this encounter Care Teams Dot Compliance Specialist Relationship Specialty Start Date End Date Rosalind Cardoso FNP [address] [place] [phone] PCP - General Family Medicine 04/28/21 documented as of this encounter
--- OUTSIDE RECORDS SUMMARY | 2024-10-06 11:58 | XMS_ITS | Encounter Summary ---
Author Organization [employer] Address [address] [facility] 7t [place] [address] Care Team Providers Care Mail Carrier And Clerk Name Role Phone Rosalind Cardoso Primary Care Provider [phone] Reason for Visit * Reason Onset Date Comments Durable Medical Equipment 09/14/2022 Encounter Details Date Type Department Care Team (Late st Contact Info) Description 09/14/2022 Telephone [facility] MEDICINE [address] [place] [address] Rosalind Cardoso FNP [address] [place] [address] Durable Medical Equipment Social History Tobacco Use [...] for signature and will be emailed to family day carer Leonard for processing * Telephone Encounter - Franc Talley - 09/14/2022 11:52 AM EST Tc from pt requesting a call back, pt claims that the visiting care takers advised that patient needs a thick cushion for her wheel chair and a New walker with two wheels because the other walker is to fast for the pt. If any questions please contact pt at [phone] documented in this encounter Plan of Treatment Not on file documented as of this encounter Visit Diagnoses Not on filedocumented in this encounter Care Teams Mail Carrier And Clerk Relationship Specialty Start Date End Date Rosalind Cardoso FNP [address] [place] [phone] PCP - General Family Medicine 04/28/21 documented as of this encounter
--- OUTSIDE RECORDS SUMMARY | 2024-10-06 11:58 | XMS_ITS | Encounter Summary ---
Author Organization [employer] Address [address] [facility] 7t [place] [address] Care Team Providers Care Licensed Staff Mft Name Role Phone Rosalind Cardoso Primary Care Provider [phone] Encounter Details Date Type Department Care Team (Late st Contact Info) Description 10/18/2023 Orders Only [facility] MEDICINE [address] [place] [address] Roaslind Cardoso FNP [address] [place] [address] Type 2 diabetes mellitus with stage 3 [...] Protein 1.49(H) < or = 0.50 mg/dL [facility] Blood Venous blood specimen / Unknown 10/25/2023 1:09 PM EDT 10/25/2023 1:09 PM EDT Rosalind Cardoso [facility] LAB BLOOD ORDERABLES Final Res ult Performing Organization Address [facility]/ZIP Co de Phone Number [facility] [address] [place] [phone] * Magnesium (10/25/2023 1:09 PM EDT) Magnesium 2.1 1.6 - 2.6 mg/dL [facility] Blood Venous blood specimen / Unknown 10/25/2023 1:09 PM EDT 10/25/2023 1:09 PM EDT Rosalind Cardoso [facility] LAB BLOOD ORDERABLES Final Res ult Performing Organization Address [facility] Co de Phone Number [facility] [address] [place] [phone] * (ABNORMAL) Comprehensive Metabolic Panel (10/25/2023 1:09 PM EDT) Pathologist [facility] Sodium 143 135 - 145 mmol/L [facility] Potassium 4.1 3.3 - 5.1 mmol/L [facility] Chloride 104 96 - 108 mmol/L [facility] Carbon Dioxide 31(H) 22 - 29 mmol/L [facility] Anion Gap 12 12 - 20 [facility] Urea Nitrogen (BUN) 27(H) 9 - 16 mg/dL [facility] Creatinine, Serum 1.20 0.5 - 1.4 mg/dL [facility] Estimated Glomerular Filt Rate 46 [facility] Comment:NOTE: For -Am erican individuals, multiply the result by 1.210.Chronic Kidney Disease: Estimated GFR < 60 mL/min/1.84z3Kuobbl Kidney Disease: Estimated GFR < 15 mL/min/1.73m2 Glucose 223(H) 60 - 115 mg/dL [facility] Calcium 9.4 8.4 - 10.2 mg/dL [facility] Bilirubin, Total 0.3 0.0 - 1.0 mg/dL [facility] Aspartate Amino Transferase 20 5 - 31 U/L [facility] Alanine Aminotransferase 34(H) 0 - 31 U/L [facility] Total Protein 6.6 6.5 - 8.0 g/dL [facility] Albumin Level 3.2(L) 3.5 - 5.0 g/dL [facility] Alkaline Phosphatase 166(H) 39 - 117 U/L [facility] Blood Venous blood specimen / Unknown 10/25/2023 1:09 PM EDT 10/25/2023 1:09 PM EDT us Rosalind Cardoso METAL BED ASSEMBLER LAB BLOOD ORDERABLES Final Res ult [facility] [address] [place] [phone] * (ABNORMAL) CBC auto differential (10/25/2023 1:09 PM EDT) White Blood Count 9.0 4.8 - 10.8 X10*3/uL [facility] Red Blood Count 4.91 4.20 - 5.50 X10*6/uL [facility] Hemoglobin 9.5(L) 12.0 - 16.0 g/dl [facility] Hematocrit 32.4(L) 37.0 - 47.0 % [facility] Mean Corpuscular Volume 66.0(L) 80.0 - 98.0 fL [facility] Mean Corpuscular Hemoglobin 19.3(L) 27.0 - 33.0 pg [facility] Mean Corpuscular HGB Conc 29.3(L) 31.0 - 35.0 g/dl [facility] Red Cell Distribution Width 17.2(H) 11.0 - 16.0 % [facility] Platelet Count 442(H) 160 - 400 X10*3/uL [facility] Mean Platelet Volume 11.3 9.4 - 12.3 fL [facility] Neutrophils Percent Auto 60.9 45 - 73 % [facility] Imm Gran Pct Auto 0.4 0.0 - 0.4 % [facility] Lymphocytes Percent Auto 25.2 20 - 40 % [facility] Monocytes Percent Auto 8.7 2 - 11 % [facility] Eosinophils Percent Auto 4.1(H) 0 - 4 % [facility] Basophils Percent Auto 0.7 0 - 2 % [facility] NRBC Pct Auto 0.0 0.0 - 0.2 /100WBC [facility] Neutrophils Absolute Auto 5.5 2.0 - 8.3 x10*3/uL [facility] Imm Gran Abs Auto 0.04(H) 0.00 - 0.03 X10*3/uL [facility] Lymphocytes Absolute Auto 2.3 1.2 - 4.9 X10*3/uL [facility] Monocytes Absolute Auto 0.8 0.1 - 1.2 X10*3/uL [facility] Eosinophils Absolute Auto 0.4 0.0 - 0.4 X10*3/uL [facility] Basophils Absolute Auto 0.1 0.0 - 0.2 X10*3/uL [facility] NRBC Abs Auto 0.000 0.0 - 0.012 X10*3/uL [facility] Blood Venous blood specimen / Unknown 10/25/2023 1:09 PM EDT 10/25/2023 1:09 PM EDT us Rosalind Cardoso METAL BED ASSEMBLER LAB BLOOD ORDERABLES Final Res ult [facility] [address] [place] [phone] documented in this encounter Visit Diagnoses Diagnosis Type 2 diabetes mellitus with stage 3 chronic kidney disease, with long-term current use of insulin, unspecified whether stage 3a or 3b CKD ([facility]) Myalgia Unspecified myalgia and myositis documented in this encounter Additional Health Concerns Assessment Noted Time PHQ-9 Depression Total Score: 0 12/26/19 23 1:09 PM EDT documented as of this encounter Care Teams Licensed Staff Mft Relationship Specialty Start Date End Date Rosalind Cardoso FNP [address] [place] [address] PCP - General Family Medicine 04/28/21 documented as of this encounter
--- OUTSIDE RECORDS SUMMARY | 2024-10-06 11:58 | XMS_ITS | Encounter Summary ---
Author Organization [employer] Address [address] [facility] 7t [place] [address] Care Team Providers Care Navy Seal Name Role Phone Rosalind Cardoso Primary Care Provider Reason for Visit * Reason Onset Date Comments Results 10/25/2023 Encounter Details Date Type Department Care Team ([facility] st Contact Info) Description 10/25/2023 Telephone [facility] MEDICINE [address] [place] [address] Rosalind Cardoso FNP [address] [place] [address] Results Social History Tobacco Use Types Packs/Day [...] results: Labs Date when done: 10/24 Facility: [facility] * Telephone Encounter - Bahman Hutchinson - 10/25/2023 3:16 PM EDT TC from pt requesting call back regarding Results. Type of results: Labs Date when done: 10/24 Facility: [facility] documented in this encounter Plan of Treatment Not on file documented as of this encounter Visit Diagnoses Not on filedocumented in this encounter Additional Health Concerns Assessment Noted Time PHQ-9 Depression Total Score: 0 12/26/19 23 1:09 PM EDT documented as of this encounter Care Teams Navy Seal Relationship Specialty Start Date End Date Rosalind Cardoso FNP [address] [place] [phone] PCP - General Family Medicine 04/28/21 documented as of this encounter
--- OUTSIDE RECORDS SUMMARY | 2024-10-06 11:58 | XMS_ITS | Encounter Summary ---
Author Organization [employer] Address [address] [facility] 7t [place] [address] Care Team Providers Care High School Foreign Language Teacher Name Role Phone Rosalind Cardoso Primary Care Provider Reason for Visit * Reason Onset Date Comments medication request 10/22/2023 Encounter Details Date Type Department Care Team ([facility] st Contact Info) Description 10/22/2023 Telephone [facility] MEDICINE [address] [place] [address] Rosalind Cardoso FNP [address] [place] [address] medication request Social History Tobacco Use Types [...] medication for pneumonia stated Pain Management from [facility] call her to advise of dx documented in this encounter Plan of Treatment Not on file documented as of this encounter Visit Diagnoses Not on filedocumented in this encounter Additional Health Concerns Assessment Noted Time PHQ-9 Depression Total Score: 0 12/26/19 23 1:09 PM EDT documented as of this encounter Care Teams High School Foreign Language Teacher Relationship Specialty Start Date End Date Rosalind Cardoso FNP [address] [place] [address] PCP - General Family Medicine 04/28/21 documented as of this encounter
== END 2024-10-06 10:11 | disposition home or self-care (01) ==
LOC: HO.LAB 10:10
PROVIDERS: Absent Provider Nurse Practitioner Family; PCP Registered Nurse; Referring Provider Registered Nurse; Visit Provider Internal Medicine Medical Oncology
DX: D64.9 Anemia, unspecified (principal); E11.22 Type 2 diabetes mellitus with diabetic chronic kidney disease; N18.30 Chronic kidney disease, stage 3 unspecified; Z79.4 Long term (current) use of insulin; I10 Essential (primary) hypertension; N18.32 Chronic kidney disease, stage 3b; Z89.512 Acquired absence of left leg below knee; M79.10 Myalgia, unspecified site
CPT/HCPCS: 36415; 80053; 83735; 85025; 85610; 85652; 86140

== ENCOUNTER 2024-11-26 08:57 | Outpatient (REF) | payer OTHER, SELFPAY ==
--- OUTSIDE RECORDS SUMMARY | 2024-11-26 09:09 | XMS_ITS | Encounter Summary ---
Author Organization [employer] Address [address] [facility] 7t [place] [address] Care Team Providers Care Dairy Supplies Sales Representative Name Role Phone Rosalind Cardoso Primary Care Provider [phone] Encounter Details Date Type Department Care Team (Late st Contact Info) Description 11/01/2023 Orders Only [facility] MEDICINE [address] [place] [address] Rosalind Cardoso FNP [address] [place] [address] Type 2 diabetes mellitus with stage 3 [...] Care Team (Late st Contact Info) Description 11/26/2024 9:45 AM EDT Office Visit [facility]ICINE [address] [place] [address] Rosana Olvera MD [address] [place], [place] [phone] documented as of this encounter Procedures Procedure [...] unspecified whether stage 3a or 3b CKD ([facility]/HCC) Myalgia MAGNESIUM Routine 11/01/2023 3:53 PM EDT Type 2 diabetes mellitus with stage 3 chronic kidney disease, with long-term current use of insulin, unspecified whether stage 3a or 3b CKD ([facility]/HCC) Myalgia COMPREHENSIVE METABOLIC PANEL Routine 11/01/2023 3:53 PM EDT Type 2 diabetes mellitus with stage 3 chronic kidney disease, with long-term current use of insulin, unspecified whether stage 3a or 3b CKD ([facility]/HCC) Myalgia documented in this encounter Results * (ABNORMAL) CBC auto differential (11/01/2023 3:58 PM EDT) White Blood Count 10.2 4.8 - 10.8 X10*3/uL [facility] Red Blood Count 5.64(H) 4.20 - 5.50 X10*6/uL [facility] Hemoglobin 10.9(L) 12.0 - 16.0 g/dl [facility] Hematocrit 36.9(L) 37.0 - 47.0 % [facility] Mean Corpuscular Volume 65.4(L) 80.0 - 98.0 fL [facility] Mean Corpuscular Hemoglobin 19.3(L) 27.0 - 33.0 pg [facility] Mean Corpuscular HGB Conc 29.5(L) 31.0 - 35.0 g/dl [facility] Red Cell Distribution Width 18.8(H) 11.0 - 16.0 % [facility] Platelet Count 469(H) 160 - 400 X10*3/uL [facility] Mean Platelet Volume 10.4 9.4 - 12.3 fL [facility] Neutrophils Percent Auto 66.7 45 - 73 % [facility] Imm Gran Pct Auto 0.3 0.0 - 0.4 % [facility] Lymphocytes Percent Auto 22.9 20 - 40 % [facility] Monocytes Percent Auto 6.2 2 - 11 % [facility] Eosinophils Percent Auto 3.3 0 - 4 % [facility] Basophils Percent Auto 0.6 0 - 2 % [facility] NRBC Pct Auto 0.2 0.0 - 0.2 /100WBC [facility] Neutrophils Absolute Auto 6.8 2.0 - 8.3 x10*3/uL [facility] Imm Gran Abs Auto 0.03 0.00 - 0.03 X10*3/uL [facility] Lymphocytes Absolute Auto 2.3 1.2 - 4.9 X10*3/uL [facility] Monocytes Absolute Auto 0.6 0.1 - 1.2 X10*3/uL [facility] Eosinophils Absolute Auto 0.3 0.0 - 0.4 X10*3/uL [facility] Basophils Absolute Auto 0.1 0.0 - 0.2 X10*3/uL [facility] NRBC Abs Auto 0.020(H) 0.0 - 0.012 X10*3/uL [facility] Blood Venous blood specimen / Unknown 11/01/2023 3:58 PM EDT 11/01/2023 5:40 PM EDT [employer] [facility] [employer] LAB BLOOD ORDERABLES Final Res ult [facility] [address] [place] [address] [phone] * (ABNORMAL) Sed Rate by Modified Javierren (11/01/2023 3:53 PM EDT) Erythrocyte Sedimentation Rate 28(H) 0 - 20 MM/HR [facility] Comment:Patients with polycy themia and many hemoglobin abnormalitiesmay have depressed sed rates whereas patients with anemiamay have elevated sed rates. Blood Venous blood specimen / Unknown 11/01/2023 3:53 PM EDT 11/01/2023 5:40 PM EDT [facility] [employer] TRANSCRIPTIONIST LAB BLOOD ORDERABLES Final Res ult Performing Organization Address [facility] Co de Phone Number [facility] [address] [place] [phone] * C-reactive Protein (11/01/2023 3:53 PM EDT) C Reactive Protein 0.48 < or = 0.50 mg/dL [facility] Blood Venous blood specimen / Unknown 11/01/2023 3:53 PM EDT 11/01/2023 5:40 PM EDT Rosalind Cardoso TRANSCRIPTIONIST LAB BLOOD ORDERABLES Final Res ult Performing Organization Address [facility] de Phone Number [facility] [address] [place] [phone] * Magnesium (11/01/2023 3:53 PM EDT) Magnesium 1.7 1.6 - 2.6 mg/dL [facility] Blood Venous blood specimen / Unknown 11/01/2023 3:53 PM EDT 11/01/2023 5:40 PM EDT Rosalind Cardoso TRANSCRIPTIONIST LAB BLOOD ORDERABLES Final Res ult Performing Organization Address [facility] de Phone Number [facility] [address] [place] [phone] * Prothrombin Time-INR (11/01/2023 3:53 PM EDT) Prothrombin Time 12.3 11.1 - 13.3 SEC [facility] INTERNATIONAL NORM RATIO 1.0 0.9 - 1.1 [facility] Comment:INTERNATIONAL NORMAL IZED RATIO [...] 11/01/2023 5:40 PM EDT us Rosalind Cardoso TRANSCRIPTIONIST LAB BLOOD ORDERABLES Final Res ult [facility] [address] [place] [phone] * (ABNORMAL) Comprehensive Metabolic Panel (11/01/2023 3:53 PM EDT) Sodium 140 135 - 145 mmol/L [facility] Potassium 3.9 3.3 - 5.1 mmol/L [facility] Chloride 102 96 - 108 mmol/L [facility] Carbon Dioxide 30(H) 22 - 29 mmol/L [facility] Anion Gap 12 12 - 20 [facility] Urea Nitrogen (BUN) 22(H) 9 - 16 mg/dL [facility] Creatinine, Serum 1.64(H) 0.5 - 1.4 mg/dL [facility] Estimated Glomerular Filt Rate 32 [facility] Comment:NOTE: For -Am erican individuals, multiply the result by 1.210.Chronic Kidney Disease: Estimated GFR < 60 mL/min/1.65b2Hztfmm Kidney Disease: Estimated GFR < 15 mL/min/1.73m2 Glucose 237(H) 60 - 115 mg/dL [facility] Calcium 9.3 8.4 - 10.2 mg/dL [facility] Bilirubin, Total 0.3 0.0 - 1.0 mg/dL [facility] Aspartate Amino Transferase 20 5 - 31 U/L [facility] Alanine Aminotransferase 26 0 - 31 U/L [facility] Total Protein 6.8 6.5 - 8.0 g/dL [facility] Albumin Level 3.3(L) 3.5 - 5.0 g/dL [facility] Alkaline Phosphatase 135(H) 39 - 117 U/L [facility] Blood Venous blood specimen / Unknown 11/01/2023 3:53 PM EDT 11/01/2023 5:40 PM EDT us Rosalind MORELOS LAB BLOOD ORDERABLES Final Res ult [facility] [address] [place] [phone] documented in this encounter Visit Diagnoses [...] documented as of this encounter Care Teams Dairy Supplies Sales Representative Relationship Specialty Start Date End Date Rosalind Cardoso FNP [address] [place] [phone] PCP - General Family Medicine 04/28/21 documented as of this encounter
--- OUTSIDE RECORDS SUMMARY | 2024-11-26 09:09 | XMS_ITS | Encounter Summary ---
Author Organization [employer] Address [address] [place] [address] 7 [place] [address] Care Team Providers Care Alteration Tailor Apprentice Name Role Phone Rosalind Cardoso Primary Care Provider Encounter Details Date Type Department Care Team ([facility] Contact Info) Description 10/19/2022 Telephone [facility] MEDICINE [address] [place] [phone] Rosalind Cardoso FNP [address] [place] [phone] Social History Tobacco Use Types Packs/Day Years [...] Upcoming Encounters Date Type Department Care Team ([facility] Contact Info) Description 11/26/2024 9:45 AM EDT Office Visit [facility] MEDICINE [address] [place] [phone] Rosana Olvera MD [address] [place] [address] [place] [address] documented as of this encounter Visit Diagnoses Not on filedocumented in this encounter Care Teams Alteration Tailor Apprentice Relationship Specialty Start Date End Date Rosalind Cardoso FNP [address] [place] [address] PCP - General Family Medicine 04/28/21 documented as of this encounter
--- OUTSIDE RECORDS SUMMARY | 2024-11-26 09:09 | XMS_ITS | Encounter Summary ---
Author Organization [employer] Address [address] [place] [address] 7 [place] [address] Care Team Providers Care Electrochemist Name Role Phone Rosalind Cardoso Primary Care Provider [phone] Encounter Details Date Type Department Care Team ([facility] st Contact Info) Description 06/19/2024 Orders Only [facility] MED & PEDS [address] [place], [place] [phone] Rosalind Cardoso FNP [address] [place] [address] Type 2 diabetes mellitus with stage 3 [...] Description 11/26/2024 9:45 AM EDT Office Visit [facility] MEDICINE [address] [place] [address] Rosana Olvera MD [address] [place] [address] documented as of this encounter Procedures Procedure [...] unspecified whether stage 3a or 3b CKD ([facility]/HCC) Primary hypertension Stage 3b chronic kidney disease ([facility]/HCC) 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 ([facility]) documented in this encounter Results * Prothrombin Time-INR (06/23/2024 10:31 AM EST) Prothrombin Time 11.3 10.9 - 12.4 SEC [facility] INTERNATIONAL NORM RATIO 1.0 0.9 - 1.1 [facility] Comment:INTERNATIONAL NORMAL IZED RATIO (INR) [...] AM EST 06/23/2024 10:31 AM EST Result [facility] Rosalind Cardoso [facility] LAB BLOOD ORDERABLES Final Res ult Performing Organization Address City/[facility]/ZIP Co de Phone Number [facility] [address] [place] [phone] * (ABNORMAL) Sed Rate by Modified Mangoergren (06/23/2024 10:31 AM EST) Erythrocyte Sedimentation Rate 38(H) 0 - 20 MM/HR [facility] Comment:Patients with polycy themia and many hemoglobin abnormalitiesmay have depressed sed rates whereas patients with anemiamay have elevated sed rates. Blood Venous blood specimen / Unknown 06/23/2024 10:31 AM EST 06/23/2024 10:31 AM EST Rosalind [employer] [facility] LAB BLOOD ORDERABLES Final Res ult [facility] [address] [place] [phone] * (ABNORMAL) Comprehensive Metabolic Panel (06/23/2024 10:31 AM EST) Sodium 134(L) 135 - 145 mmol/L [facility] Potassium 4.1 3.3 - 5.1 mmol/L [facility] Chloride 97 96 - 108 mmol/L [facility] Carbon Dioxide 27 22 - 29 mmol/L [facility] Anion Gap 14 12 - 20 [facility] Urea Nitrogen (BUN) 45(H) 9 - 16 mg/dL [facility] Creatinine, Serum 1.91(H) 0.5 - 1.4 mg/dL [facility] Estimated Glomerular Filt Rate 27 [facility] Comment:Chronic Kidney Disea se: Estimated GFR < 60 mL/min/[id number] Kidney Disease: Estimated GFR < 15 mL/min/1.73m2 Glucose 287(H) 60 - 115 mg/dL [facility] Calcium 9.1 8.4 - 10.2 mg/dL [facility] Bilirubin, Total 0.3 0.0 - 1.0 mg/dL [facility] Aspartate Amino Transferase 19 5 - 31 U/L [facility] Alanine Aminotransferase 11 0 - 31 U/L [facility] Total Protein 7.4 6.5 - 8.0 g/dL [facility] Albumin Level 3.6 3.5 - 5.0 g/dL [facility] Alkaline Phosphatase 99 39 - 117 U/L [facility] Blood Venous blood specimen / Unknown 06/23/2024 10:31 AM EST 06/23/2024 10:31 AM EST Rosalind Cardoso ASSISTANT FOOTBALL COACH LAB BLOOD ORDERABLES Final Res ult Performing Organization Address City/[facility]/ZIP Co de Phone Number [facility] [address] [place] [phone] documented in this encounter Visit Diagnoses [...] documented as of this encounter Care Teams Electrochemist Relationship Specialty Start Date End Date Rosalind Cardoso FNP [address] [place] [phone] PCP - General Family Medicine 04/28/21 documented as of this encounter
--- OUTSIDE RECORDS SUMMARY | 2024-11-26 09:09 | XMS_ITS | Encounter Summary ---
Author Organization [employer] Address [address] [place] [address] [address] [place] [address] Care Team Providers Care Camp Program Director Name Role Phone Rosalind Cardoso TAMY Primary Care Provider [phone] Reason for Visit * Reason Comments Med Refill Encounter Details Date Type Department Care Team ([facility] Contact Info) Description 10/23/2022 Refill [facility] MEDICINE [address] [place] [address] NameJaiden MD [address] [place] [address] Social History Tobacco Use Types Packs/Day Years [...] Upcoming Encounters Date Type Department Care Team ([facility] Contact Info) Description 11/26/2024 9:45 AM EDT Office Visit [facility] MEDICINE [address] [place] [phone] Rosana Olvera MD [address] [place] [address] documented as of this encounter Visit Diagnoses Not on filedocumented in this encounter Care Teams Camp Program Director Relationship Specialty Start Date End Date Rosalind Cardoso FNP [address] [place] [address] PCP - General Family Medicine 04/28/21 documented as of this encounter
--- OUTSIDE RECORDS SUMMARY | 2024-11-26 09:09 | XMS_ITS | Encounter Summary ---
Author Organization [employer] Address [address] [facility] 7t [place] [address] Care Team Providers Care Production Analyst Name Role Phone Rosalind Cardoso Primary Care Provider [phone] Encounter Details Date Type Department Care Team (Late st Contact Info) Description 11/15/2023 Orders Only [facility] MEDICINE [address] [place] [address] Rosalind Cardoso FNP [address] [place] [address] Type 2 diabetes mellitus with stage 3 [...] Description 11/26/2024 9:45 AM EDT Office Visit [facility] MEDICINE [address] [place], [place] [phone] Rosana Olvera MD [address] [place], [place] [phone] documented as of this encounter Procedures Procedure Name Priority Date/Time Associated Diagnosis Comments SED RATE BY MODIFIED WESTERGREN Routine 11/20/2023 9:36 AM EDT Type 2 diabetes mellitus with stage 3 chronic kidney disease, with long-term current use of insulin, unspecified whether stage 3a or 3b CKD ([facility]/HCC) Myalgia PROTHROMBIN TIME-INR Routine 11/20/2023 9:36 [...] unspecified whether stage 3a or 3b CKD ([facility]/HCC) Myalgia COMPREHENSIVE METABOLIC PANEL Routine 11/20/2023 9:36 AM EDT Type 2 diabetes mellitus with stage 3 chronic kidney disease, with long-term current use of insulin, unspecified whether stage 3a or 3b CKD ([facility]/HCC) Myalgia documented in this encounter Results * (ABNORMAL) Sed Rate by Modified Westergren (11/20/2023 9:36 AM EDT) Erythrocyte Sedimentation Rate 30(H) 0 - 20 MM/HR [facility] Comment:Patients with polycy themia and many hemoglobin abnormalitiesmay have depressed sed rates whereas patients with anemiamay have elevated sed rates. Blood Venous blood specimen / Unknown 11/20/2023 9:36 AM EDT 11/20/2023 9:36 AM EDT Rosalind Cardoso TECHNICAL SUPPORT CONSULTANT LAB BLOOD ORDERABLES Final Res ult Performing Organization Address [facility]/ZIP Co de Phone Number [facility] [address] [place] [phone] * (ABNORMAL) C-reactive Protein (11/20/2023 9:36 AM EDT) C Reactive Protein 1.26(H) < or = 0.50 mg/dL [facility] Blood Venous blood specimen / Unknown 11/20/2023 9:36 AM EDT 11/20/2023 9:36 AM EDT Rosalind [employer]where TECHNICAL SUPPORT CONSULTANT LAB BLOOD ORDERABLES Final Res ult Performing Organization Address [facility]/ZIP Co de Phone Number [facility] [address] [place] [phone] * Magnesium (11/20/2023 9:36 AM EDT) Magnesium 1.8 1.6 - 2.6 mg/dL [facility] Blood Venous blood specimen / Unknown 11/20/2023 9:36 AM EDT 11/20/2023 9:36 AM EDT Rosalind Cardoso [facility] LAB BLOOD ORDERABLES Final Res ult Performing Organization Address [facility] Co de Phone Number [facility] [address] [place] [phone] * Prothrombin Time-INR (11/20/2023 9:36 AM EDT) Prothrombin Time 11.6 11.1 - 13.3 SEC [facility] INTERNATIONAL NORM RATIO 1.0 0.9 - 1.1 [facility] Comment:INTERNATIONAL NORMAL IZED RATIO (INR) [...] EDT 11/20/2023 9:36 AM EDT Rosalind Cardoso [facility] LAB BLOOD ORDERABLES Final Res ult Performing Organization Address [facility] de Phone Number [facility] [address] [place] [phone] * (ABNORMAL) Comprehensive Metabolic Panel (11/20/2023 9:36 AM EDT) Sodium 139 135 - 145 mmol/L [facility] Potassium 4.0 3.3 - 5.1 mmol/L [facility] Chloride 102 96 - 108 mmol/L [facility] Carbon Dioxide 28 22 - 29 mmol/L [facility] Anion Gap 13 12 - 20 [facility] Urea Nitrogen (BUN) 40(H) 9 - 16 mg/dL [facility] Creatinine, Serum 1.51(H) 0.5 - 1.4 mg/dL [facility] Estimated Glomerular Filt Rate 35 [facility] Comment:NOTE: For -Am erican individuals, multiply the result by 1.210.Chronic Kidney Disease: Estimated GFR < 60 mL/min/1.67i0Ypuoeg Kidney Disease: Estimated GFR < 15 mL/min/1.73m2 Glucose 214(H) 60 - 115 mg/dL [facility] Calcium 9.7 8.4 - 10.2 mg/dL [facility] Bilirubin, Total 0.2 0.0 - 1.0 mg/dL [facility] Aspartate Amino Transferase 15 5 - 31 U/L [facility] Alanine Aminotransferase 11 0 - 31 U/L [facility] Total Protein 7.0 6.5 - 8.0 g/dL [facility] Albumin Level 3.4(L) 3.5 - 5.0 g/dL [facility] Alkaline Phosphatase 112 39 - 117 U/L [facility] Blood Venous blood specimen / Unknown 11/20/2023 9:36 AM EDT 11/20/2023 9:36 AM EDT us Rosalind MORELOS LAB BLOOD ORDERABLES Final Res ult [facility] [address] [place] [phone] documented in this encounter Visit Diagnoses Diagnosis Type 2 diabetes mellitus with stage 3 chronic kidney disease, with long-term current use of insulin, unspecified whether stage 3a or 3b CKD ([facility]/HCC) Myalgia Unspecified myalgia and myositis documented in this encounter Additional Health Concerns Assessment Noted Time PHQ-9 Depression Total Score: 0 12/26/19 23 1:09 PM EDT documented as of this encounter Care Teams Production Analyst Relationship Specialty Start Date End Date Rosalind Cardoso FNP [address] [place] [address] PCP - General Family Medicine 04/28/21 documented as of this encounter
--- OUTSIDE RECORDS SUMMARY | 2024-11-26 09:10 | XMS_ITS | Encounter Summary ---
Author Organization [employer] Address [address] [facility] 7t [place] [address] Care Team Providers Care Boring Mill Operator For Metal Name Role Phone Rosalind Cardoso Primary Care Provider [phone] Encounter Details Date Type Department Care Team (Late st Contact Info) Description 03/20/2024 Orders Only [facility] MEDICINE [address] [place] [address] Rosalind Cardoso FNP [address] [place] [address] Type 2 diabetes mellitus with stage 3 [...] Description 11/26/2024 9:45 AM EDT Office Visit [facility] MEDICINE [address] [place] [phone] Rosana Olvera MD [address] [place] [address] documented as of this encounter Visit Diagnoses [...] documented as of this encounter Care Teams Boring Mill Operator For Metal Relationship Specialty Start Date End Date Rosalind Cardoso FNP [address] [place] [phone] PCP - General Family Medicine 04/28/21 documented as of this encounter
--- OUTSIDE RECORDS SUMMARY | 2024-11-26 09:10 | XMS_ITS | Encounter Summary ---
Author Organization [employer] Address [address] [place] [address] 7 [place] [address] Care Team Providers Care Tobacco Wrapping Machine Tender Name Role Phone Rosalind Cardoso Primary Care Provider Encounter Details Date Type Department Care Team ([facility] st Contact Info) Description 01/03/2024 Orders Only [facility] CHC MED & PEDS [address] [place], [place] [phone] Rosalind Cardoso FNP [address] [place] [address] Type 2 diabetes mellitus with stage 3 [...] Description 11/26/2024 9:45 AM EDT Office Visit [facility] MEDICINE [address] [place], [place] [phone] Rosana Olvera MD [address] [place] [address] documented as of this encounter Procedures Procedure [...] 3a or 3b CKD ([facility]) Primary hypertension Stage 3b chronic kidney disease ([facility]) 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 ([facility]) documented in this encounter Results * Magnesium (01/17/2024 12:30 PM EDT) Magnesium 2.4 1.6 - 2.6 mg/dL [facility] Blood Venous blood specimen / Unknown 01/17/2024 12:30 PM EDT 01/17/2024 12:30 PM EDT us Rosalind Cardoso REGROOVER LAB BLOOD ORDERABLES Final Res ult [facility] [address] [place] [address] [phone] * (ABNORMAL) Comprehensive Metabolic Panel (01/17/2024 [...] 1.210.Chronic Kidney Disease: Estimated GFR < 60 mL/min/[id number] Kidney Disease: Estimated GFR < 15 mL/min/1.73m2 [...] 01/17/2024 12:30 PM EDT us Rosalind Cardoso [employer]OOVER LAB BLOOD ORDERABLES Final Res ult [facility] [address] [place] [phone] * (ABNORMAL) CBC auto differential (01/17/2024 [...] MORELOS LAB BLOOD ORDERABLES Final Res ult [facility] [address] [place] [phone] documented in this encounter Visit Diagnoses Diagnosis Type 2 diabetes mellitus with stage 3 chronic kidney disease, with long-term current use of insulin, unspecified whether stage 3a or 3b CKD (CMS/HCC) Primary hypertension Unspecified essential hypertension Stage 3b chronic kidney disease (CMS/HCC) 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 ([facility]/HCC) documented in this encounter Additional Health Concerns Assessment Noted Time PHQ-9 Depression Total Score: 0 12/26/19 23 1:09 PM EDT documented as of this encounter Care Teams Tobacco Wrapping Machine Tender Relationship Specialty Start Date End Date Rosalind Cardoso FNP [address] [place] [address] PCP - General Family Medicine 04/28/21 documented as of this encounter
--- OUTSIDE RECORDS SUMMARY | 2024-11-26 09:10 | XMS_ITS | Encounter Summary ---
Author Organization [employer] Address [address] [facility] 7t [place] [address] Care Team Providers Care Mgmt Specialist Name Role Phone Rosalind Cardoso Primary Care Provider [phone] Encounter Details Date Type Department Care Team (Late st Contact Info) Description 12/27/2023 Orders Only [facility] MED[facility]INE [address] [place] [address] Rosalind Cardoso FNP [address] [place] [address] Type 2 diabetes mellitus with stage 3 [...] Description 11/26/2024 9:45 AM EDT Office Visit [facility] 230 [place] [address] Rosana Olvera MD [address] [place], [place] [phone] documented as of this encounter Procedures Procedure Name Priority Date/Time Associated Diagnosis Comments PROTHROMBIN TIME-INR Routine 12/27/2023 9:33 AM EDT Type 2 diabetes mellitus with stage 3 chronic kidney disease, with long-term current use of insulin, unspecified whether stage 3a or 3b CKD ([facility]) Myalgia documented in this encounter Results * Prothrombin Time-INR (12/27/2023 9:33 AM EDT) Prothrombin Time 11.5 11.1 - 13.3 SEC [facility] INTERNATIONAL NORM RATIO 0.9 0.9 - 1.1 [facility] Comment:INTERNATIONAL NORMAL IZED RATIO (INR) [...] MORELOS LAB BLOOD ORDERABLES Final Res ult [facility] [address] [place] [address] [phone] documented in this encounter Visit Diagnoses [...] documented as of this encounter Care Teams Mgmt Specialist Relationship Specialty Start Date End Date Rosalind Cardoso FNP [address] [place] [address] PCP - General Family Medicine 04/28/21 documented as of this encounter
--- OUTSIDE RECORDS SUMMARY | 2024-11-26 09:10 | XMS_ITS | Data Portability ---
Author Organization [employer] [place] - [facility] Address [address] [place] [phone] Care Team Providers Care Automobile Lights Assembler Name Role Phone [facility] Referring Provider [facility] Referring Provider Assessment Encounter Date Assessment Date Assessment LastModified by Organization Details LastModified Time 07/24/2023 07/24/2023 I provided real -time medical direction via phone for this encounter, and was available for additional phone based assistance as needed. I have reviewed and agree with the Assessment and Plan as documented by the Film Editor Supervisor. Patient given the opportunity to ask questions. [...] hemoglobin + hematocrit, blood 2023 [address] [facility], [address] [place] [address], [phone] 09:28:43 Referral None recorded. Procedures None recorded. [...] APPLY TOPICALLY TO AFFECTED AREA(S) DIRECTED BY [facility] active Not Available Not [...] Available Not Available No t Available Free[employer] [place] Lite kit USE TO TEST BLOOD SUGAR [...] /min 166 mm[Hg] 84 mm[Hg] Not Available [facility] - production 4 12:58:02 Date Recorded Body temperature Oxygen saturation Oxygen saturation in Arterial blood by Pulse oximetry Heart rate Respiratory rate Systolic blood pressure Diastolic blood pressure Provider Name and Address Organization Details Last Updated DateTime 2 98.2 [degF] 100 % 100 % 108 /min 16 /min 132 mm[Hg] 81 mm[Hg] Not Available [facility] - production 2 16:51:45 Social History None [...] 4923 Anish Rocha MD Main - [facility] [address] [place] [phone] 05/04/2022 16:51:33 05/08/2022 15:59:32 Chest pain 80056993 R07.9 Chronic. Symptoms for months. EKG with no ST-T wave changes. Advised to f/u with primary care team for abdominal US/ECHO and possible CT chest given chronicity of symtpoms [id number] Anny Whalen MD Main - [facility] [address] [place] [phone] 07/24/2023 12:57:53 07/25/2023 09:42:01 Anemia [id number] D64.9 Health Concerns Section Related Observation LastModified by Organization Detai ls LastModified Time None Recorded Concern Status LastModified by Organization Details LastModified Time None Recorded Advance Directives Directive None Recorded Payers Insurance Date Sequence Insurance Name Policy Number Policy Penn Covered Member ID Penn Member ID Guarantor Name 07/24/2023 1 [facility] - DOS PRIOR TO 2022 - DUAL ELIGIBLE (MEDICARE REPLACEMENT/ADV ANTAGE - HMO) Mitra Parish [id number] Mitra Parish 09/01/2023 1 [employer] [facility] Satarii - DOS ON OR AFTER 2022 - DUAL ELIGIBLE - PRISON OPTIONS AND ONE CARE (MEDICARE REPLACEMENT/ADV ANTAGE - HMO) Mitra Parish [id number] Mitra Parish Notes Date Note Type Note [...] .................. .................. .................. .................. .................. .................. ............... Film Editor Supervisor Note: Patient chief complaint of epigastric pain. Patient states ongoing pain for one month following angiogram. Patient states the pain begins at her ribs, goes through her lungs, and into her breasts. patient vitals WNL, 108 HR noted. 12 lead EKG performed, showing 108 HR and occasional PVC. [facility] contacted. Patient instructed to follow up with PCP for sonography. Education given, red flags discussed. .................. .................. .................. .................. .................. .................. .................. ............... Disposition: Fulfilled Anish Rocha MD [address] [place] [address],[address], [place], [phone], [place] 05/05/2022 13:11:58 07/24/2023 text/html HPI: Patient with history of CKD stage 3b , microcytic anemia. follows with Dr. Mattson not seen in > 2 months for procrit injections. Last H&H in chart 06/10/23 Hgb 9.9 HCT 33.6. Patient is an amputee unable to get out to appt. Has pending TITLE I DIRECTOR but not in place at this time. [...] .................. .................. .................. .................. .................. .................. ............... Film Editor Supervisor Note From Maximus Neal: Dispatched to the [...] non tender/distended, pupils PERRL. Blood draw from [facility] with 23g butterfly. BMP. HCT 33, Hb 11.2. [facility] consulted. Pt advised of results. Red flags discussed. ALL times are approx. .................. .................. .................. .................. .................. .................. .................. ............... Disposition: Fulfilled Anny Whalen MD [address] [place] [address],[address], [place], [phone], [place] 07/24/2023 12:59:58 OBGyn Episode No OBEpisode recorded.
--- OUTSIDE RECORDS SUMMARY | 2024-11-26 09:10 | XMS_ITS | Encounter Summary ---
Author Organization [employer] Address [address] [place] [address] 7 [place] [address] Care Team Providers Care Tax Credit Leasing Consultant Name Role Phone Rosalind Cardoso Primary Care Provider [phone] Encounter Details Date Type Department Care Team ([facility] Contact Info) Description 12/27/2022 Abstract [facility] MEDICINE [address] [place] [address] Rosalind Cardoso FNP [address] [place] [address] Social History Tobacco Use Types Packs/Day Years [...] Upcoming Encounters Date Type Department Care Team ([facility] Contact Info) Description 11/26/2024 9:45 AM EDT Office Visit [facility] MED[facility]INE [address] [place] [address] Rosana Olvera MD [address] [place] [address] documented as of this encounter Procedures Procedure [...] documented as of this encounter Care Teams Tax Credit Leasing Consultant Relationship Specialty Start Date End Date Rosalind Cardoso FNP [address] [place] [address] PCP - General Family Medicine 04/28/21 documented as of this encounter
--- OUTSIDE RECORDS SUMMARY | 2024-11-26 09:10 | XMS_ITS | Encounter Summary ---
Author Organization [employer] Address [address] [place] [address] 7t [place] [address] Care Team Providers Care Flight Crew Time Clerk Name Role Phone Rosalind Cardoso Primary Care Provider [phone] Encounter Details Date Type Department Care Team (Late st Contact Info) Description 08/07/2024 Orders Only [facility] MEDICINE [address] [place] [address] Rosalind Cardoso FNP [address] [place] [address] Type 2 diabetes mellitus with stage 3 [...] Description 11/26/2024 9:45 AM EDT Office Visit [facility] MED[facility]INE [address] [place] [address] Rosana Olvera MD [address] [place] [address] documented as of this encounter Procedures Procedure [...] Prothrombin Time 10.5(L) 10.9 - 12.4 SEC [facility] INTERNATIONAL NORM RATIO 0.9 0.9 - 1.1 [facility] Comment:INTERNATIONAL NORMAL IZED RATIO (INR) [...] MORELOS LAB BLOOD ORDERABLES Final Res ult [facility] [address] [place] [address] [phone] documented in this encounter Visit Diagnoses [...] documented as of this encounter Care Teams Flight Crew Time Clerk Relationship Specialty Start Date End Date Rosalind Cardoso FNP [address] [place] [address] PCP - General Family Medicine 04/28/21 documented as of this encounter
--- OUTSIDE RECORDS SUMMARY | 2024-11-26 09:10 | XMS_ITS | Encounter Summary ---
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 (CMS/HCC) Rosalind Cardoso FNP [address] [place] [address] Phone: tel: fax: [facility] Referral ID Status Reason Start Date Expiration Date V isits Requested Visits Authorized [id number] Closed Specialty Services Required 11/28/2023 11/27/2024 1 1 * Consultation (Routine) - Closed Specialty Diagnoses / Procedures Referred By Anthony reyes Referred To Contact Physical Therapy Diagnoses Cervicalgia Fibromyalgia 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 ([facility]/HCC) Rosalind Cardoso FNP [address] [place] [address] Phone: tel: fax: [facility] [address] [place] [address] Phone: tel: fax: Referral ID Status Reason Start Date Expiration Date V isits Requested Visits Authorized [id number] Closed Specialty Services Required 11/28/2023 11/27/2024 1 1 Reason for Visit * Reason Onset Date Comments Referral 11/25/2023 Results 11/25/2023 Encounter Details Date Type Department Care Team (Late st Contact Info) Description 11/25/2023 Telephone [facility]EDS [address] [place] [address] Rosalind Cardoso FNP [address] [place] [address] Referral; Results Social History Tobacco Use Types [...] Telephone Encounter - Wing Deep RN - 11/28/2023 10:01 AM EDT Tc to pt to inform about referral. Pt reports feeling better and reminded of upcoming appt. Stated there is no news on the [place] of [place] as of yet when pt asked. * Telephone Encounter - TAMY aRm - 11/28/2023 7:08 AM EDT Thanks ! [...] lisinopril, 10 mg starting last month by certified wellness program coordinator along with continuing furosemide, 80 mg. Pt is also requesting new referral to [facility] and [facility] [employer] for full body acupuncture and full body massage respectively. Originally was written by Pain Management at [facility] pt was unable to go due to being sick and leg swelling. Called [facility] at [phone], spoke to Stella and confirmed a referral was sent and another needs to be sent so insurance cancover it. Their fax is [phone]. Also called [facility] and got their fax number which is [phone]. Pt is also waiting for results of US done on kidney at [facility] on 11/19. Advised that results may take [...] referral : DATE: n/a TIME: n/a Address: [address] [place] [address] Visits: n/a Facility Name: [facility] Type of Specialist: Acupuncture DX: amputation and Fibromyalgia Phone # : [phone] Fax #: n/a TC from pt requesting call back regarding Results. Type of results: labs Date when done: 11/19 Facility: [facility] Pt is also calling to advise provider certified wellness program coordinator increased dosage of furosemide (Lasix) 20 MG tablet to 80 mg. Advise to continue medication for a week and do blood work by end of this week. Pt will also be receiving prosthetic leg in about a week or so Any questions, contact pt at [phone] documented in this encounter Plan of Treatment Upcoming Encounters Date Type Department Care Team ([facility] Contact Info) Description 11/26/2024 9:45 AM EDT Office Visit [facility] MED[facility] [address] [place] [address] Rosana Olvera MD [address] [place] [address] Scheduled Referrals Name Type Priority Associated Diagnoses Order Schedule Referral to Massage Therapy Outpatient Referral Routine Cervicalgia Fibromyalgia 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 ([facility]) Expected: 11/28/2023 (Approximate), Expires: 11/27/2024 Referral for Acupuncture Outpatient Referral Routine Cervicalgia Fibromyalgia 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 ([facility]) Expected: 11/28/2023 (Approximate), Expires: 11/27/2024 documented as of this encounter Visit Diagnoses Diagnosis Cervicalgia- Primary Fibromyalgia Unspecified myalgia and myositis 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
--- OUTSIDE RECORDS SUMMARY | 2024-11-26 09:10 | XMS_ITS | Encounter Summary ---
Author Organization [employer] Address [address] [facility] 7t [place] [address] Care Team Providers Care Medical Record Coder Name Role Phone Rosalind Cardoso Primary Care Provider [phone] Encounter Details Date Type Department Care Team (Late st Contact Info) Description 02/21/2024 Orders Only [facility] MEDICINE [address] [place] [address] Rosalind Cardoso FNP [address] [place] [address] Type 2 diabetes mellitus with stage 3 [...] Description 11/26/2024 9:45 AM EDT Office Visit [facility] MEDICINE [address] [place] [address] Rosana Olvera MD [address] [place] [address] documented as of this encounter Visit Diagnoses [...] as of this encounter Care Teams Medical Record Coder Relationship Specialty Start Date End Date Rosalind Cardoso FNP [address] [place] [address] PCP - General Family Medicine 04/28/21 documented as of this encounter
--- OUTSIDE RECORDS SUMMARY | 2024-11-26 09:10 | XMS_ITS | Encounter Summary ---
Author Organization [employer] Address [address] [place] [address] 7 [place] [address] Care Team Providers Care Psychological Anthropologist Name Role Phone Rosalind Cardoso Primary Care Provider Encounter Details Date Type Department Care Team ([facility] st Contact Info) Description 01/31/2024 Orders Only [facility] PEDS [address] [place], [place] [phone] Rosalind Cardoso FNP [address] [place] [address] Type 2 diabetes mellitus with stage 3 [...] Description 11/26/2024 9:45 AM EDT Office Visit [facility] MEDICINE [address] [place], [place] [phone] Rosana Olvera MD [address] [place] [address] documented as of this encounter Procedures Procedure Name Priority Date/Time Associated Diagnosis Comments SED RATE BY MODIFIED WESTERGREN Routine 05/29/2024 2:18 PM EST Type 2 diabetes mellitus with stage 3 chronic kidney disease, with long-term current use of insulin, unspecified whether stage 3a or 3b CKD ([facility]) Primary hypertension Stage 3b chronic kidney disease ([facility]) 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 Blood Venous blood specimen / Unknown 05/29/2024 2:18 PM EST 05/29/2024 2:18 PM EST us Rosalind MORELOS LAB BLOOD ORDERABLES Final Res ult [facility] [address] [place] [address] [phone] documented in this encounter Visit Diagnoses [...] documented as of this encounter Care Teams Psychological Anthropologist Relationship Specialty Start Date End Date Rosalind Cardoso FNP [address] [place] [address] PCP - General Family Medicine 04/28/21 documented as of this encounter
--- OUTSIDE RECORDS SUMMARY | 2024-11-26 09:10 | XMS_ITS | Encounter Summary ---
Author Organization [employer] Address [address] [place] [address] 7 [place] [address] Care Team Providers Care Outreach Specialist Name Role Phone Rosalind Cardoso Primary Care Provider [phone] Encounter Details Date Type Department Care Team ([facility] st Contact Info) Description 08/14/2024 Orders Only [facility] MED [facility] PEDS [address] [place], [place] [phone] Rosalind Cardoso FNP [address] [place] [address] Type 2 diabetes mellitus with stage 3 [...] Description 11/26/2024 9:45 AM EDT Office Visit [facility] MEDICINE [address] [place] [address] Rosana Olvera MD [address] [place] [address] documented as of this encounter Visit Diagnoses [...] documented as of this encounter Care Teams Outreach Specialist Relationship Specialty Start Date End Date Rosalind Cardoso FNP [address] [place] [address] PCP - General Family Medicine 04/28/21 documented as of this encounter
--- OUTSIDE RECORDS SUMMARY | 2024-11-26 09:10 | XMS_ITS | Encounter Summary ---
Author Organization [employer] Address [address] [place] [address] 7t [place] [address] Care Team Providers Care Food Service Aide Name Role Phone Rosalind Cardoso Primary Care Provider [phone] Reason for Visit * Reason Onset Date Comments Durable Medical Equipment 12/06/2022 Encounter Details Date Type Department Care Team ([facility] st Contact Info) Description 12/06/2022 Telephone [facility] MEDICINE [address] [place] [address] Rosalind Cardoso FNP [address] [place] [address] Durable Medical Equipment Social History Tobacco Use [...] For more clarification, please contact pt at [phone] documented in this encounter Plan of Treatment Upcoming Encounters Date Type Department Care Team (Late st Contact Info) Description 11/26/2024 9:45 AM EDT Office Visit [facility] MEDICINE [address] [place] [address] Rosana Olvera MD [address] [place] [address] documented as of this encounter Visit Diagnoses Not on filedocumented in this encounter Care Teams Food Service Aide Relationship Specialty Start Date End Date Rosalind Cardoso FNP [address] [place] [address] PCP - General Family Medicine 04/28/21 documented as of this encounter
--- OUTSIDE RECORDS SUMMARY | 2024-11-26 09:10 | XMS_ITS | Encounter Summary ---
Author Organization [employer] Address [address] [place] [address] 7 [place] [address] Care Team Providers Care Recruiting Consultant Name Role Phone Rosalind Cardoso Primary Care Provider [phone] Encounter Details Date Type Department Care Team ([facility] st Contact Info) Description 02/14/2024 Orders Only [facility] PEDS [address] [place], [place] [phone] Rosalind Cardoso FNP [address] [place] [address] Type 2 diabetes mellitus with stage 3 [...] Description 11/26/2024 9:45 AM EDT Office Visit [facility] MEDICINE [address] [place] [address] Rosana Olvera MD [address] [place] [address] documented as of this encounter Visit Diagnoses [...] documented as of this encounter Care Teams Recruiting Consultant Relationship Specialty Start Date End Date Rosalind Cardoso FNP [address] [place] [address] PCP - General Family Medicine 04/28/21 documented as of this encounter
--- OUTSIDE RECORDS SUMMARY | 2024-11-26 09:10 | XMS_ITS | Encounter Summary ---
Author Organization [employer] Address [address] [place] [address] 7 [place] [address] Care Team Providers Care Conveyor Technician Name Role Phone Rosalind Cardoso Primary Care Provider [phone] Encounter Details Date Type Department Care Team ([facility] st Contact Info) Description 03/13/2024 Orders Only [facility] PEDS [address] [place], [place] [phone] Rosalind Cardoso FNP [address] [place] [address] Type 2 diabetes mellitus with stage 3 [...] Description 11/26/2024 9:45 AM EDT Office Visit [facility] MEDICINE [address] [place], [place] [phone] Rosana Olvera MD [address] [place] [address] documented as of this encounter Procedures Procedure Name Priority Date/Time Associated Diagnosis Comments C-REACTIVE PROTEIN Routine 05/29/2024 2: 18 PM EST Type 2 diabetes mellitus with stage 3 chronic kidney disease, with long-term current use of insulin, unspecified whether stage 3a or 3b CKD ([facility]/HCC) Primary hypertension Stage 3b chronic kidney disease ([facility]CC) 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 ([facility]CC) documented in this encounter Results * (ABNORMAL) C-reactive Protein (05/29/2024 2:18 PM EST) C Reactive Protein 1.25(H) < or = 0.50 mg/dL [facility] Blood Venous blood specimen / Unknown 05/29/2024 2:18 PM EST 05/29/2024 2:18 PM EST Rosalind MORELOS LAB BLOOD ORDERABLES Final Res ult [facility] [address] [place] [address] [phone] documented in this encounter Visit Diagnoses Diagnosis Type 2 diabetes mellitus with stage 3 chronic kidney disease, with long-term current use of insulin, unspecified whether stage 3a or 3b CKD ([facility]/HCC) Primary hypertension Unspecified essential hypertension Stage 3b chronic kidney disease ([facility]) 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 ([facility]) documented in this encounter Additional Health Concerns Assessment Noted Time PHQ-9 Depression Total Score: 0 12/26/19 23 1:09 PM EDT documented as of this encounter Care Teams Conveyor Technician Relationship Specialty Start Date End Date Rosalind Cardoso FNP [address] [place] [address] PCP - General Family Medicine 04/28/21 documented as of this encounter
--- OUTSIDE RECORDS SUMMARY | 2024-11-26 09:10 | XMS_ITS | Clinical Summary ---
Author Organization [facility] Address [address] [facility] [address] [place] [address] Phone Care Team Providers Care Stave Grader Name Role Phone Rosalind Cardoso TAMY Primary Care Provider [phone] Allergies No known active allergies Medications aspirin [...] BKA performed by Dr. Borden 09/01/22 at [facility] -Indication: gangrene and ulcers of the [...] & Plan: -Optometry: NABOR November 2021 -Dental: [facility] dental clinic -Pap: reports last 2019 and believes results were normal, referred to UroGYN -Colorectal CA screening: iFOBT neg 12/18/21, due December 2022 -Mammogram: BIRADS 3 on 01/16/22, due Jul 2022 -Outstanding vaccines: influenza, Tdap, Shingrix, PCV20, COVID ?? [facility] Cigar Bander Hand Osi: plan to schedule follow up appts the following specialists: ?? [facility] Nephrology ?? [facility] ?? [facility] GI ?? [facility] Cards ?? [facility] UroGYN Generalized abdominal pain 06/20/2022 Overview [...] Comments Breast Cancer Screening 1965 Pneumococcal Vaccine: 50+ Years (1 of 2 - PCV) 1982 Colorectal Cancer Screening: Annual FOBT 2012 Colorectal Cancer Screening: Colonoscopy 2012 Colorectal Cancer Screening: Sigmoidoscopy 2012 Diabetes: Ophthalmology Exam 08/08/2020 Diabetes: Pedal Pulse Checked 08/08/2020 Diabetes: Sensory Foot Exam 08/08/2020 Diabetes: Visual Foot Exam 08/08/2020 Diabetes: Hemoglobin A1C 01/02/2024 024, 04/12/2023, 09/26/2022 Influenza Vaccine (Season Ended) 2025 Hepatitis B Vaccine Aged Out No longe r eligible based on patient's age to complete this topic Insurance [facility] ([id number]) [facility] ([id number]) Care Teams Stave Grader Relationship Specialty Start Date End Date Rosalind Cardoso FNP [address] [place] [address] PCP - General 11/12/23
--- OUTSIDE RECORDS SUMMARY | 2024-11-26 09:10 | XMS_ITS | Encounter Summary ---
Author Organization [employer] Address [address] [facility] 7t [place] [address] Care Team Providers Care Monomer Purification Operator Name Role Phone Rosalind Cradoso Primary Care Provider [phone] Encounter Details Date Type Department Care Team (Late st Contact Info) Description 12/13/2023 Orders Only [facility] MEDICINE [address] [place] [address] Rosalind Cardoso FNP [address] [place] [address] Type 2 diabetes mellitus with stage 3 [...] Description 11/26/2024 9:45 AM EDT Office Visit [facility] [address] [place], [place] [phone] Rosana Olvera MD [address] [place], [place] [phone] documented as of this encounter Procedures Procedure Name Priority Date/Time Associated Diagnosis Comments CBC WITH AUTO DIFFERENTIAL Routine 12/13/2023 8:52 AM EDT Type 2 diabetes mellitus with stage 3 chronic kidney disease, with long-term current use of insulin, unspecified whether stage 3a or 3b CKD ([facility]) Myalgia B TYPE NATRIURETIC PEPTIDE (BNP) Routine 12/13/2023 8:52 AM EDT Type 2 diabetes mellitus with stage 3 chronic kidney disease, with long-term current use of insulin, unspecified whether stage 3a or 3b CKD ([facility]) documented in this encounter Results * (ABNORMAL) B Type Natriuretic Peptide (BNP) (12/13/2023 8:52 AM EDT) B Type Natriuretic Peptide 1,216(H) <100 pg/mL [facility] Comment:For those patients w ho are being treated with Natrecor(nesiritide, recombinant BNP), BNP testing should beperformed at least two hours post treatment in order toensure that only endogenous levels of BNP are detected. 12/13/2023 8:52 AM EDT 12/13/2023 8:52 AM EDT us Generic External Data Provider LAB BLOOD ORDERAB LES Final Result [facility] [address] [place] [address] [phone] * (ABNORMAL) CBC auto differential (12/13/2023 8:52 AM EDT) White Blood Count 9.1 4.8 - 10.8 X10*3/uL [facility] Red Blood Count 6.02(H) 4.20 - 5.50 X10*6/uL [facility] Hemoglobin 11.4(L) 12.0 - 16.0 g/dl [facility] Hematocrit 37.7 37.0 - 47.0 % [facility] Mean Corpuscular Volume 62.6(L) 80.0 - 98.0 fL [facility] Mean Corpuscular Hemoglobin 18.9(L) 27.0 - 33.0 pg [facility] Mean Corpuscular HGB Conc 30.2(L) 31.0 - 35.0 g/dl [facility] Red Cell Distribution Width 17.2(H) 11.0 - 16.0 % [facility] Platelet Count 285 160 - 400 X10*3/uL [facility] Mean Platelet Volume 10.8 9.4 - 12.3 fL [facility] Neutrophils Percent Auto 51.6 45 - 73 % [facility] Imm Gran Pct Auto 0.4 0.0 - 0.4 % [facility] Lymphocytes Percent Auto 36.9 20 - 40 % [facility] Monocytes Percent Auto 7.7 2 - 11 % [facility] Eosinophils Percent Auto 2.8 0 - 4 % [facility] Basophils Percent Auto 0.6 0 - 2 % [facility] NRBC Pct Auto 0.0 0.0 - 0.2 /100WBC [facility] Neutrophils Absolute Auto 4.7 2.0 - 8.3 x10*3/uL [facility] Imm Gran Abs Auto 0.04(H) 0.00 - 0.03 X10*3/uL [facility] Lymphocytes Absolute Auto 3.3 1.2 - 4.9 X10*3/uL [facility] Monocytes Absolute Auto 0.7 0.1 - 1.2 X10*3/uL [facility] Eosinophils Absolute Auto 0.3 0.0 - 0.4 X10*3/uL [facility] Basophils Absolute Auto 0.1 0.0 - 0.2 X10*3/uL [facility] NRBC Abs Auto 0.000 0.0 - 0.012 X10*3/uL [facility] Blood Venous blood specimen / Unknown 12/13/2023 8:52 AM EDT 12/13/2023 8:52 AM EDT us Rosalind MORELOS LAB BLOOD ORDERABLES Final Res ult [facility] [address] [place] [address] [phone] documented in this encounter Visit Diagnoses Diagnosis Type 2 diabetes mellitus with stage 3 chronic kidney disease, with long-term current use of insulin, unspecified whether stage 3a or 3b CKD ([facility]) Myalgia Unspecified myalgia and myositis documented in this encounter Additional Health Concerns Assessment Noted Time PHQ-9 Depression Total Score: 0 12/26/19 23 1:09 PM EDT documented as of this encounter Care Teams Monomer Purification Operator Relationship Specialty Start Date End Date Rosalind Cardoso FNP [address] [place] [phone] PCP - General Family Medicine 04/28/21 documented as of this encounter
--- OUTSIDE RECORDS SUMMARY | 2024-11-26 09:10 | XMS_ITS | Encounter Summary ---
Author Organization [employer] Address [address] [facility] 7t [place] [address] Care Team Providers Care Cst Name Role Phone Rosalind Cardoso Primary Care Provider [phone] Encounter Details Date Type Department Care Team (Late st Contact Info) Description 11/29/2023 Orders Only [facility] MEDICINE [address] [place] [address] Rosalind Cardoso FNP [address] [place] [address] Type 2 diabetes mellitus with stage 3 [...] 9:45 AM EDT Office Visit [facility] MEDICINE [address] [place], [place] [phone] Rosana Olvera MD [address] [place], [place] [phone] documented as of this encounter Procedures Procedure [...] EDT Narrative 12/27/2023 3:26 PM EDT ? [facility] [place] ? [address] ?[place] [address] ? Mammography Report ? Signed ? Patient: Manus,Mitra ?MR#: [id number] ? : 1965 ?Acct:[id number] ? Age/Sex: 58 / F ?ADM Date: 05/24/24 ? Loc: HO.MAMMO ? Attending Dr: Rosalind Cardoso [employer] ? Ordering Physician: Janae,Rosalind [employer] ?Results: 1Negat ?? aiden ? Date of Service: 11/29/23 ?Follow Up: 1 Year From Orig ?? inal Mammogram ? Procedure(s): MM tomosynthesis screening BI ?? Accession Number(s): [id number] ? cc: Rosalind Cardoso [employer] ? EXAMINATION: ?? MM SCREENING DIGITAL BREAST [...] 1522 ? DD/ 1440 ? TD/TT: ? Fire Code Inspector: ? Procedure Note Mauri, Mily - 12/27/2023 [facility] [address] [place] [address] Dr. Maynard, [place] [address] Mammography Report Signed Patient: Dany Parish#: [id number] : 1965Acct:[id number] Age/Sex: 58 / FADM Date: 11/29/23 Loc: HO.MAMMO Attending Dr: Rosalind Cardoso [employer] Ordering Physician: Rosalind CardosoPResults: 1Negat [place] Date of Service: 11/29/23Follow Up: 1 Year From Orig inal Mammogram Procedure(s): MM tomosynthesis screening BI Accession Number(s): [id number] cc: Rosalind Cardoso EXAMINATION: MM SCREENING DIGITAL [...] in OV> 12/27/23 1522 DD/ 1440 TD/TT: Fire Code Inspector: Rosalind STARKSP IMG BI PROCEDURES Final Result * (ABNORMAL) Sed Rate by Modified Marlene (11/29/2023 1:21 PM EDT) Erythrocyte Sedimentation Rate 30(H) 0 - 20 MM/HR [facility] Comment:Patients with polycy themia and many hemoglobin abnormalitiesmay have depressed sed rates whereas patients with anemiamay have elevated sed rates. Blood Venous blood specimen / Unknown 11/29/2023 1:21 PM EDT 11/29/2023 1:21 PM EDT us Rosalind Cardoso [employer] LAB BLOOD ORDERABLES Final Res ult Performing Organization Address [facility] Co de Phone Number [facility] [address] [place] [phone] * C-reactive Protein (11/29/2023 1:21 PM EDT) C Reactive Protein 0.34 < or = 0.50 mg/dL [facility] Blood Venous blood specimen / Unknown 11/29/2023 1:21 PM EDT 11/29/2023 1:21 PM EDT Rosalind Cardoso [employer] LAB BLOOD ORDERABLES Final Res ult Performing Organization Address [facility] Co il Phone Number [facility] [address] [place] [phone] * Magnesium (11/29/2023 1:21 PM EDT) Magnesium 1.8 1.6 - 2.6 mg/dL [facility] Blood Venous blood specimen / Unknown 11/29/2023 1:21 PM EDT 11/29/2023 1:21 PM EDT Rosalind Cardoso [employer] LAB BLOOD ORDERABLES Final Res ult Performing Organization Address [facility] Co de Phone Number [facility] [address] [place] [phone] * Prothrombin Time-INR (11/29/2023 1:21 PM EDT) Prothrombin Time 11.8 11.1 - 13.3 SEC [facility] INTERNATIONAL NORM RATIO 1.0 0.9 - 1.1 [facility] Comment:INTERNATIONAL NORMAL IZED RATIO (INR) [...] 11/29/2023 1:21 PM EDT us Rosalind Teoedna [employer] LAB BLOOD ORDERABLES Final Res ult [facility] [address] [place] [address] [phone] * (ABNORMAL) Comprehensive Metabolic Panel (11/29/2023 1:21 PM EDT) Sodium 140 135 - 145 mmol/L [facility] Potassium 3.6 3.3 - 5.1 mmol/L [facility] Chloride 103 96 - 108 mmol/L [facility] Carbon Dioxide 28 22 - 29 mmol/L [facility] Anion Gap 13 12 - 20 [facility] Urea Nitrogen (BUN) 23(H) 9 - 16 mg/dL [facility] Creatinine, Serum 1.06 0.5 - 1.4 mg/dL [facility] Estimated Glomerular Filt Rate 53 [facility] Comment:NOTE: For -Am erican individuals, multiply the result by 1.210.Chronic Kidney Disease: Estimated GFR < 60 mL/min/1.90q2Yvejkh Kidney Disease: Estimated GFR < 15 mL/min/1.73m2 Glucose 165(H) 60 - 115 mg/dL [facility] Calcium 9.5 8.4 - 10.2 mg/dL [facility] Bilirubin, Total 0.3 0.0 - 1.0 mg/dL [facility] Aspartate Amino Transferase 16 5 - 31 U/L [facility] Alanine Aminotransferase 13 0 - 31 U/L [facility] Total Protein 6.8 6.5 - 8.0 g/dL [facility] Albumin Level 3.3(L) 3.5 - 5.0 g/dL [facility] Alkaline Phosphatase 94 39 - 117 U/L [facility] Blood Venous blood specimen / Unknown 11/29/2023 1:21 PM EDT 11/29/2023 1:21 PM EDT Rosalind Teoedna [employer] LAB BLOOD ORDERABLES Final Res ult [facility] [address] [place], [place] [phone] * (ABNORMAL) CBC auto differential (11/29/2023 1:21 PM EDT) White Blood Count 8.7 4.8 - 10.8 X10*3/uL [facility] Red Blood Count 5.99(H) 4.20 - 5.50 X10*6/uL [facility] Hemoglobin 11.3(L) 12.0 - 16.0 g/dl [facility] Hematocrit 37.5 37.0 - 47.0 % [facility] Mean Corpuscular Volume 62.6(L) 80.0 - 98.0 fL [facility] Mean Corpuscular Hemoglobin 18.9(L) 27.0 - 33.0 pg [facility] Mean Corpuscular HGB Conc 30.1(L) 31.0 - 35.0 g/dl [facility] Red Cell Distribution Width 16.4(H) 11.0 - 16.0 % [facility] Platelet Count 310 160 - 400 X10*3/uL [facility] Mean Platelet Volume 11.1 9.4 - 12.3 fL [facility] Neutrophils Percent Auto 56.2 45 - 73 % [facility] Imm Gran Pct Auto 0.2 0.0 - 0.4 % [facility] Lymphocytes Percent Auto 32.5 20 - 40 % [facility] Monocytes Percent Auto 7.6 2 - 11 % [facility] Eosinophils Percent Auto 2.8 0 - 4 % [facility] Basophils Percent Auto 0.7 0 - 2 % [facility] NRBC Pct Auto 0.0 0.0 - 0.2 /100WBC [facility] Neutrophils Absolute Auto 4.9 2.0 - 8.3 x10*3/uL [facility] Imm Gran Abs Auto 0.02 0.00 - 0.03 X10*3/uL [facility] Lymphocytes Absolute Auto 2.8 1.2 - 4.9 X10*3/uL [facility] Monocytes Absolute Auto 0.7 0.1 - 1.2 X10*3/uL [facility] Eosinophils Absolute Auto 0.2 0.0 - 0.4 X10*3/uL [facility] Basophils Absolute Auto 0.1 0.0 - 0.2 X10*3/uL [facility] NRBC Abs Auto 0.000 0.0 - 0.012 X10*3/uL [facility] Blood Venous blood specimen / Unknown 11/29/2023 1:21 PM EDT 11/29/2023 1:21 PM EDT us Rosalind MORELOS LAB BLOOD ORDERABLES Final Res ult [facility] [address] [place] [address] [phone] documented in this encounter Visit Diagnoses [...] documented as of this encounter Care Teams Cst Relationship Specialty Start Date End Date Rosalind Cardoso FNP [address] [place] [phone] PCP - General Family Medicine 04/28/21 documented as of this encounter
--- OUTSIDE RECORDS SUMMARY | 2024-11-26 09:10 | XMS_ITS | Encounter Summary ---
Author Organization [employer] Address [address] [place] [address] 7 [place] [address] Care Team Providers Care Loft Worker Head Name Role Phone Rosalind Cardoso Primary Care Provider [phone] Encounter Details Date Type Department Care Team ([facility] st Contact Info) Description 12/20/2023 Orders Only [facility] MED & PEDS [address] [place], [place] [phone] Rosalind Cardoso FNP [address] [place] [address] Type 2 diabetes mellitus with stage 3 [...] Description 11/26/2024 9:45 AM EDT Office Visit [facility] MEDICINE [address] [place], [place] [phone] Rosana lOvera MD [address] [place] [address] documented as of this encounter Procedures Procedure [...] Protein 0.46 < or = 0.50 mg/dL [facility] Blood Venous blood specimen / Unknown 12/27/2023 9:33 AM EDT 12/27/2023 9:33 AM EDT Rosalind Cardoso [facility] LAB BLOOD ORDERABLES Final Res ult [facility] [address] [place] [phone] [phone] * (ABNORMAL) Sed Rate by Modified Javierren (12/27/2023 9:33 AM EDT) Erythrocyte Sedimentation Rate 36(H) 0 - 20 MM/HR [facility] Comment:Patients with polycy themia and many hemoglobin abnormalitiesmay have depressed sed rates whereas patients with anemiamay have elevated sed rates. Blood Venous blood specimen / Unknown 12/27/2023 9:33 AM EDT 12/27/2023 9:33 AM EDT Rosalind Cardoso [facility] LAB BLOOD ORDERABLES Final Res ult Performing Organization Address [facility]/ZIP Co de Phone Number [facility] [address] [place] [phone] * Magnesium (12/27/2023 9:33 AM EDT) Magnesium 2.2 1.6 - 2.6 mg/dL [facility] Blood Venous blood specimen / Unknown 12/27/2023 9:33 AM EDT 12/27/2023 9:33 AM EDT us Rosalind Cardoso [facility] LAB BLOOD ORDERABLES Final Res ult Performing Organization Address [facility] Co de Phone Number [facility] [address] [place] [phone] * (ABNORMAL) Comprehensive Metabolic Panel (12/27/2023 9:33 AM EDT) Sodium 141 135 - 145 mmol/L [facility] Potassium 3.8 3.3 - 5.1 mmol/L [facility] Chloride 105 96 - 108 mmol/L [facility] Carbon Dioxide 28 22 - 29 mmol/L [facility] Anion Gap 12 12 - 20 [facility] Urea Nitrogen (BUN) 28(H) 9 - 16 mg/dL [facility] Creatinine, Serum 1.18 0.5 - 1.4 mg/dL [facility] Estimated Glomerular Filt Rate 47 [facility] Comment:NOTE: For -Am erican individuals, multiply the result by 1.210.Chronic Kidney Disease: Estimated GFR < 60 mL/min/1.30m3Ebcmpb Kidney Disease: Estimated GFR < 15 mL/min/1.73m2 Glucose 206(H) 60 - 115 mg/dL [facility] Calcium 9.3 8.4 - 10.2 mg/dL [facility] Bilirubin, Total 0.3 0.0 - 1.0 mg/dL [facility] Aspartate Amino Transferase 16 5 - 31 U/L [facility] Alanine Aminotransferase 22 0 - 31 U/L [facility] Total Protein 6.8 6.5 - 8.0 g/dL [facility] Albumin Level 3.5 3.5 - 5.0 g/dL [facility] Alkaline Phosphatase 88 39 - 117 U/L [facility] Blood Venous blood specimen / Unknown 12/27/2023 9:33 AM EDT 12/27/2023 9:33 AM EDT us Rosalind Cardoso [facility] LAB BLOOD ORDERABLES Final Res ult [facility] [address] [place] [phone] * (ABNORMAL) CBC auto differential (12/27/2023 9:33 AM EDT) White Blood Count 9.2 4.8 - 10.8 X10*3/uL [facility] Red Blood Count 5.36 4.20 - 5.50 X10*6/uL [facility] Hemoglobin 10.1(L) 12.0 - 16.0 g/dl [facility] Hematocrit 32.8(L) 37.0 - 47.0 % [facility] Mean Corpuscular Volume 61.2(L) 80.0 - 98.0 fL [facility] Mean Corpuscular Hemoglobin 18.8(L) 27.0 - 33.0 pg [facility] Mean Corpuscular HGB Conc 30.8(L) 31.0 - 35.0 g/dl [facility] Red Cell Distribution Width 17.0(H) 11.0 - 16.0 % [facility] Platelet Count 292 160 - 400 X10*3/uL [facility] Mean Platelet Volume 11.0 9.4 - 12.3 fL [facility] Neutrophils Percent Auto 59.0 45 - 73 % [facility] Imm Gran Pct Auto 0.3 0.0 - 0.4 % [facility] Lymphocytes Percent Auto 28.1 20 - 40 % [facility] Monocytes Percent Auto 8.8 2 - 11 % [facility] Eosinophils Percent Auto 3.1 0 - 4 % [facility] Basophils Percent Auto 0.7 0 - 2 % [facility] NRBC Pct Auto 0.0 0.0 - 0.2 /100WBC [facility] Neutrophils Absolute Auto 5.4 2.0 - 8.3 x10*3/uL [facility] Imm Gran Abs Auto 0.03 0.00 - 0.03 X10*3/uL [facility] Lymphocytes Absolute Auto 2.6 1.2 - 4.9 X10*3/uL [facility] Monocytes Absolute Auto 0.8 0.1 - 1.2 X10*3/uL [facility] Eosinophils Absolute Auto 0.3 0.0 - 0.4 X10*3/uL [facility] Basophils Absolute Auto 0.1 0.0 - 0.2 X10*3/uL [facility] NRBC Abs Auto 0.000 0.0 - 0.012 X10*3/uL [facility] Blood Venous blood specimen / Unknown 12/27/2023 9:33 AM EDT 12/27/2023 9:33 AM EDT us Rosalind Cardoso [facility] LAB BLOOD ORDERABLES Final Res ult [facility] [address] [place] [phone] documented in this encounter Visit Diagnoses Diagnosis Type 2 diabetes mellitus with stage 3 chronic kidney disease, with long-term current use of insulin, unspecified whether stage 3a or 3b CKD ([facility]/HCC) Primary hypertension Unspecified essential hypertension Stage 3b chronic kidney disease ([facility]/HCC) 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
--- OUTSIDE RECORDS SUMMARY | 2024-11-26 09:10 | XMS_ITS | Encounter Summary ---
Author Organization [employer] Address [address] [place] [address] 7 [place] [address] Care Team Providers Care Box Finisher Name Role Phone Rosalind Cardoso Primary Care Provider [phone] Encounter Details Date Type Department Care Team ([facility] st Contact Info) Description 02/28/2024 Orders Only [facility] CHC MED & PEDS [address] [place], [place] [phone] Rosalind Cardoso FNP [address] [place] [address] Type 2 diabetes mellitus with stage 3 [...] Description 11/26/2024 9:45 AM EDT Office Visit [facility] MEDICINE [address] [place] [address] Rosana Olvera MD [address] [place] [address] documented as of this encounter Visit Diagnoses [...] documented as of this encounter Care Teams Box Finisher Relationship Specialty Start Date End Date Rosalind Cardoso FNP [address] [place] [address] PCP - General Family Medicine 04/28/21 documented as of this encounter
--- OUTSIDE RECORDS SUMMARY | 2024-11-26 09:10 | XMS_ITS | Encounter Summary ---
Author Organization [employer] Address [address] [place] [address] 7 [place] [address] Care Team Providers Care Bed Operator Name Role Phone Rosalind Cardoso Primary Care Provider [phone] Encounter Details Date Type Department Care Team ([facility] st Contact Info) Description 04/24/2024 Orders Only [facility] CHC MED & PEDS [address] [place], [place] [phone] Rosalind Cardoso FNP [address] [place] [address] Type 2 diabetes mellitus with stage 3 [...] Description 11/26/2024 9:45 AM EDT Office Visit [facility] MEDICINE [address] [place] [address] Rosana Olvera MD [address] [place] [address] documented as of this encounter Visit Diagnoses [...] documented as of this encounter Care Teams Bed Operator Relationship Specialty Start Date End Date Rosalind Cardoso FNP [address] [place] [address] PCP - General Family Medicine 04/28/21 documented as of this encounter
--- OUTSIDE RECORDS SUMMARY | 2024-11-26 09:10 | XMS_ITS | Encounter Summary ---
Author Organization [employer] Address [address] [place] [address] 7t [place] [address] Care Team Providers Care Oim Architect Name Role Phone Rosalind Cardoso Primary Care Provider [phone] Reason for Visit * Reason Onset Date Comments Durable Medical Equipment 10/23/2022 Encounter Details Date Type Department Care Team ([facility] st Contact Info) Description 10/23/2022 Telephone [facility] MED[facility]INE [address] [place] [address] Rosalind Cardoso FNP [address] [place] [address] Durable Medical Equipment Social History Tobacco Use [...] Script for walker was already sent to healthcare specialist and pt notified. * Telephone Encounter - Franc Talley - 10/23/2022 2:25 PM EDT Tc from pt requesting a regular Walker for physical therapy program. Pt states that she needs the regular walker with the two wheels in the front and not seat. Please contact pt at [phone] documented in this encounter Plan of Treatment Upcoming Encounters Date Type Department Care Team (Late st Contact Info) Description 11/26/2024 9:45 AM EDT Office Visit [facility] MEDICINE [address] [place] [address] Rosana Olvera MD [address] [place] [address] documented as of this encounter Visit Diagnoses Not on filedocumented in this encounter Care Teams Oim Architect Relationship Specialty Start Date End Date Rosalind Cardoso FNP [address] [place] [address] PCP - General Family Medicine 04/28/21 documented as of this encounter
--- OUTSIDE RECORDS SUMMARY | 2024-11-26 09:10 | XMS_ITS | Encounter Summary ---
Author Organization [employer] Address [address] [place] [address] 7 [place] [address] Care Team Providers Care Web Mobile Designer Name Role Phone Rosalind Cardoso Primary Care Provider [phone] Encounter Details Date Type Department Care Team ([facility] Contact Info) Description 11/28/2022 Abstract [facility] MEDICINE [address] [place] [address] Rosalind Cardoso FNP [address] [place] [address] Social History Tobacco Use Types Packs/Day Years [...] Upcoming Encounters Date Type Department Care Team ([facility] Contact Info) Description 11/26/2024 9:45 AM EDT Office Visit [facility] MED[facility]INE [address] [place] [address] Rosana Olvera MD [address] [place] [address] [place] [address] documented as of this encounter Visit Diagnoses Not on filedocumented in this encounter Care Teams Web Mobile Designer Relationship Specialty Start Date End Date Rosalind Cardoso FNP [address] [place] [address] PCP - General Family Medicine 04/28/21 documented as of this encounter
--- OUTSIDE RECORDS SUMMARY | 2024-11-26 09:10 | XMS_ITS | Encounter Summary ---
Author Organization [employer] Address [address] [facility] 7t [place] [address] Care Team Providers Care Director Telehealth Name Role Phone Rosalind Cardoso Primary Care Provider [phone] Encounter Details Date Type Department Care Team (Late st Contact Info) Description 03/06/[address] [facility] MEDICINE [address] [place] [address] Rosalind Cardoso FNP [address] [place] [address] Type 2 diabetes mellitus with stage 3 [...] Description 11/26/2024 9:45 AM EDT Office Visit [facility] [address] [place] [address] Rosana Olvera MD [address] [place] [address] documented as of this encounter Visit Diagnoses [...] as of this encounter Care Teams Director Telehealth Relationship Specialty Start Date End Date Rosalind Cardoso FNP [address] [place] [address] PCP - General Family Medicine 04/28/21 documented as of this encounter
--- OUTSIDE RECORDS SUMMARY | 2024-11-26 09:10 | XMS_ITS | Encounter Summary ---
Author Organization [employer] Address [address] [facility] 7t [place] [address] Care Team Providers Care Retail Manager Name Role Phone Rosalind Cardoso Primary Care Provider [phone] Encounter Details Date Type Department Care Team (Late st Contact Info) Description 01/24/2024 Orders Only [facility] MEDICINE [address] [place] [address] Rosalind Cardoso FNP [address] [place] [address] Type 2 diabetes mellitus with stage 3 [...] Description 11/26/2024 9:45 AM EDT Office Visit [facility] MEDICINE [address] [place], [place] [phone] Rosana Olvera MD [address] [place], [place] [phone] documented as of this encounter Procedures Procedure Name Priority Date/Time Associated Diagnosis Comments PROTHROMBIN TIME-INR Routine 05/29/2024 2:18 PM EST Type 2 diabetes mellitus with stage 3 chronic kidney disease, with long-term current use of insulin, unspecified whether stage 3a or 3b CKD ([facility]/HCC) Myalgia MAGNESIUM Routine 05/29/2024 2:18 PM EST Type 2 diabetes mellitus with stage 3 chronic kidney disease, with long-term current use of insulin, unspecified whether stage 3a or 3b CKD (CMS/HCC) Myalgia documented in this encounter Results * Magnesium (05/29/2024 2:18 PM EST) Magnesium 2.0 1.6 - 2.6 mg/dL [facility] Blood Venous blood specimen / Unknown 05/29/2024 2:18 PM EST 05/29/2024 2:18 PM EST Rosalind Cardoso [facility] BLOOD ORDERABLES Final Res ult Performing Organization Address [facility] Co de Phone Number [facility] [address] [place] [address] [phone] * Prothrombin Time-INR (05/29/2024 2:18 PM EST) Prothrombin Time 11.1 10.9 - 12.4 SEC [facility] INTERNATIONAL NORM RATIO 1.0 0.9 - 1.1 [facility] Comment:INTERNATIONAL NORMAL IZED RATIO [...] ult Performing Organization Address [facility] de Phone Number [facility] [address] [place] [phone] documented in this encounter Visit Diagnoses [...] documented as of this encounter Care Teams Retail Manager Relationship Specialty Start Date End Date Rosalind Cardoso FNP [address] [place] [address] PCP - General Family Medicine 04/28/21 documented as of this encounter
--- OUTSIDE RECORDS SUMMARY | 2024-11-26 09:10 | XMS_ITS | Encounter Summary ---
Author Organization [employer] Address [address] [place] [address] 7 [place] [address] Care Team Providers Care Fleet Manager/Dispatch Name Role Phone Rosalind Cardoso Primary Care Provider [phone] Encounter Details Date Type Department Care Team ([facility] st Contact Info) Description 07/03/2024 Orders Only [facility] MED & PEDS [address] [place], [place] [phone] Rosalind Cardoso FNP [address] [place] [address] Type 2 diabetes mellitus with stage 3 [...] Description 11/26/2024 9:45 AM EDT Office Visit [facility] MEDICINE [address] [place] [address] Rosana Olvera MD [address] [place] [address] documented as of this encounter Procedures Procedure [...] Prothrombin Time 10.7(L) 10.9 - 12.4 SEC [facility] INTERNATIONAL NORM RATIO 0.9 0.9 - 1.1 [facility] Comment:INTERNATIONAL NORMAL IZED RATIO (INR) [...] 07/07/2024 10:24 AM EST us Rosalind Cardoso ICE PLANT OPERATOR LAB BLOOD ORDERABLES Final Res ult [facility] [address] [place] [address] [phone] * (ABNORMAL) C-reactive Protein (07/07/2024 10:24 AM EST) C Reactive Protein 1.00(H) < or = 0.50 mg/dL [facility] Blood Venous blood specimen / Unknown 07/07/2024 10:24 AM EST 07/07/2024 10:24 AM EST Rosalind Teoedna ICE PLANT OPERATOR LAB BLOOD ORDERABLES Final Res ult Performing Organization Address [facility] Co de Phone Number [facility] [address] [place] [phone] * (ABNORMAL) Sed Rate by Modified [place] (07/07/2024 10:24 AM EST) Erythrocyte Sedimentation Rate 34(H) 0 - 20 MM/HR [facility] Comment:Patients with polycy themia and many hemoglobin abnormalitiesmay have depressed sed rates whereas patients with anemiamay have elevated sed rates. Blood Venous blood specimen / Unknown 07/07/2024 10:24 AM EST 07/07/2024 10:24 AM EST us Rosalind Cardoso ICE PLANT OPERATOR LAB BLOOD ORDERABLES Final Res ult Performing Organization Address [facility] Co de Phone Number [facility] [address] [place] [address] [phone] * Magnesium (07/07/2024 10:24 AM EST) Magnesium 1.8 1.6 - 2.6 mg/dL [facility] Blood Venous blood specimen / Unknown 07/07/2024 10:24 AM EST 07/07/2024 10:24 AM EST Rosalind Teoedna ICE PLANT OPERATOR LAB BLOOD ORDERABLES Final Res ult Performing Organization Address [facility]/State/ZIP Co de Phone Number [facility] [address] [place] [address] [phone] * (ABNORMAL) Comprehensive Metabolic Panel (07/07/2024 10:24 AM EST) Sodium 135 135 - 145 mmol/L [facility] Potassium 3.7 3.3 - 5.1 mmol/L [facility] Chloride 102 96 - 108 mmol/L [facility] Carbon Dioxide 25 22 - 29 mmol/L [facility] Anion Gap 12 12 - 20 [facility] Urea Nitrogen (BUN) 47(H) 9 - 16 mg/dL [facility] Creatinine, Serum 1.54(H) 0.5 - 1.4 mg/dL [facility] Estimated Glomerular Filt Rate 34 [facility] Comment:Chronic Kidney Disea se: Estimated GFR < 60 mL/min/1.50d7Niulye Kidney Disease: Estimated GFR < 15 mL/min/1.73m2 Glucose 400(HH) 60 - 115 mg/dL [facility] Comment:Critical value for G RADHA: Results called to and read backby: KAYLEE Gallegos Person calling: OLESYA Date: 07/07/24 Time:1102 Calcium 9.6 8.4 - 10.2 mg/dL [facility] Bilirubin, Total 0.2 0.0 - 1.0 mg/dL [facility] Aspartate Amino Transferase 17 5 - 31 U/L [facility] Alanine Aminotransferase 9 0 - 31 U/L [facility] Total Protein 7.3 6.5 - 8.0 g/dL [facility] Albumin Level 3.5 3.5 - 5.0 g/dL [facility] Alkaline Phosphatase 109 39 - 117 U/L [facility] Blood Venous blood specimen / Unknown 07/07/2024 10:24 AM EST 07/07/2024 10:24 AM EST us Rosalind Cardoso ICE PLANT OPERATOR LAB BLOOD ORDERABLES Final Res ult [facility] [address] [place] [address] [phone] documented in this encounter Visit Diagnoses Diagnosis Type 2 diabetes mellitus with stage 3 chronic kidney disease, with long-term current use of insulin, unspecified whether stage 3a or 3b CKD ([facility]/HCC) Primary hypertension Unspecified essential hypertension Stage 3b chronic kidney disease ([facility]/HCC) 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
--- OUTSIDE RECORDS SUMMARY | 2024-11-26 09:10 | XMS_ITS | Encounter Summary ---
Author Organization [employer] Address [address] [facility] 7t [place] [address] Care Team Providers Care Plant Technical Specialist Name Role Phone Rosalind Cardoso Primary Care Provider [phone] Encounter Details Date Type Department Care Team (Late st Contact Info) Description 01/10/2024 Orders Only [facility] MEDICINE [address] [place] [address] Rosalind Cardoso FNP [address] [place] [address] Type 2 diabetes mellitus with stage 3 [...] 9:45 AM EDT Office Visit [facility] [address] [place], [place] [phone] Rosana Olvera MD [address] [place], [place] [phone] documented as of this encounter Procedures Procedure Name Priority Date/Time Associated Diagnosis Comments PROTHROMBIN TIME-INR Routine 01/17/2024 12:30 PM EDT Type 2 diabetes mellitus with stage 3 chronic kidney disease, with long-term current use of insulin, unspecified whether stage 3a or 3b CKD ([facility]) Myalgia documented in this encounter Results * Prothrombin Time-INR (01/17/2024 12:30 PM EDT) Prothrombin Time 11.4 11.1 - 13.3 SEC [facility] INTERNATIONAL NORM RATIO 0.9 0.9 - 1.1 [facility] Comment:INTERNATIONAL NORMAL IZED RATIO (INR) REFERENCE [...] [facility] LAB BLOOD ORDERABLES Final Res ult [facility] [address] [place] [address] [phone] documented in this encounter Visit Diagnoses [...] documented as of this encounter Care Teams Plant Technical Specialist Relationship Specialty Start Date End Date Rosalind Cardoso FNP [address] [place] [phone] PCP - General Family Medicine 04/28/21 documented as of this encounter
--- OUTSIDE RECORDS SUMMARY | 2024-11-26 09:10 | XMS_ITS | Encounter Summary ---
Author Organization [employer] Address [address] [facility] 7t [place] [address] Care Team Providers Care Marble Polisher Name Role Phone Rosalind Cardoso Primary Care Provider [phone] Encounter Details Date Type Department Care Team (Late st Contact Info) Description 02/07/2024 Orders Only [facility] MEDICINE [address] [place] [address] Rosalind Cardoso FNP [address] [place] [address] Type 2 diabetes mellitus with stage 3 [...] Description 11/26/2024 9:45 AM EDT Office Visit [facility] MEDICINE [address] [place] [address] Rosana Olvera MD [address] [place] [address] documented as of this encounter Visit Diagnoses [...] documented as of this encounter Care Teams Marble Polisher Relationship Specialty Start Date End Date Rosalind Cardoso FNP [address] [place] [address] PCP - General Family Medicine 04/28/21 documented as of this encounter
--- OUTSIDE RECORDS SUMMARY | 2024-11-26 09:10 | XMS_ITS | Encounter Summary ---
Author Organization [employer] Address [address] [place] [address] 7 [place] [address] Care Team Providers Care Hotel Assistant Manager Name Role Phone TeoRosalind bishop TAMY Primary Care Provider [phone] Reason for Visit * Reason Comments Med Refill Encounter Details Date Type Department Care Team (Late Contact Info) Description 01/13/2023 Refill [facility] MED & PEDS [address] [place] [address] Saba Garcia FNP [address] [place] [address] Dept [place] [address] Type 2 diabetes mellitus with hyperglycemia (CMS/HCC) [...] Department Care Team (Late Contact Info) Description 11/26/2024 9:45 AM EDT Office Visit [facility] MEDICINE [address] [place] [address] Rosana Olvera MD [address] [place] [address] documented as of this encounter Visit Diagnoses Diagnosis Type 2 diabetes mellitus with hyperglycemia (CMS/[facility]) documented in this encounter Additional Health Concerns Assessment Noted Time PHQ-9 Depression Total Score: 0 12/26/19 23 1:09 PM EDT documented as of this encounter Care Teams Hotel Assistant Manager Relationship Specialty Start Date End Date Rosalind Cardoso FNP [address] [place] [address] PCP - General Family Medicine 04/28/21 documented as of this encounter
--- OUTSIDE RECORDS SUMMARY | 2024-11-26 09:10 | XMS_ITS | Encounter Summary ---
Author Organization [employer] Address [address] [place] [address] 7 [place] [address] Care Team Providers Care Model And Mold Maker Name Role Phone Rosalind Cardoso Primary Care Provider [phone] Encounter Details Date Type Department Care Team ([facility] st Contact Info) Description 01/17/2024 Orders Only [facility] CHC MED & PEDS [address] [place], [place] [phone] Rosalind Cardoso FNP [address] [place] [address] Type 2 diabetes mellitus with stage 3 [...] Description 11/26/2024 9:45 AM EDT Office Visit [facility] MEDICINE [address] [place] [address] Rosana Olvera MD [address] [place] [address] documented as of this encounter Procedures Procedure [...] Protein 0.36 < or = 0.50 mg/dL [facility] Blood Venous blood specimen / Unknown 01/17/2024 12:30 PM EDT 01/17/2024 12:30 PM EDT Rosalind Cardoso GAS CUTTING MACHINE OPERATOR LAB BLOOD ORDERABLES Final Res ult Performing Organization Address [facility] Co de Phone Number [facility] [address] [place] [phone] * (ABNORMAL) Sed Rate by Modified Marlene (01/17/2024 12:30 PM EDT) Erythrocyte Sedimentation Rate 36(H) 0 - 20 MM/HR [facility] Comment:Patients with polycy themia and many hemoglobin abnormalitiesmay have depressed sed rates whereas patients with anemiamay have elevated sed rates. Blood Venous blood specimen / Unknown 01/17/2024 12:30 PM EDT 01/17/2024 12:30 PM EDT Rosalind Cardoso [facility] LAB BLOOD ORDERABLES Final Res ult Performing Organization Address [facility] de Phone Number [facility] [address] [place] [phone] documented in this encounter Visit Diagnoses [...] of this encounter Care Teams Model And Mold Maker Relationship Specialty Start Date End Date Rosalind Cardoso FNP [address] [place] [address] PCP - General Family Medicine 04/28/21 documented as of this encounter
--- OUTSIDE RECORDS SUMMARY | 2024-11-26 09:10 | XMS_ITS | Encounter Summary ---
Author Organization [employer] Address [address] [place] [address] 7 [place] [address] Care Team Providers Care Lab Coordinator Name Role Phone Rosalind Cardoso Primary Care Provider [phone] Encounter Details Date Type Department Care Team ([facility] st Contact Info) Description 03/27/2024 Orders Only [facility] CHC MED & PEDS [address] [place], [place] [phone] Rosalind Cardoso FNP [address] [place] [address] Type 2 diabetes mellitus with stage 3 [...] Description 11/26/2024 9:45 AM EDT Office Visit [facility] MEDICINE [address] [place] [address] Rosana Olvera MD [address] [place] [address] documented as of this encounter Visit Diagnoses [...] documented as of this encounter Care Teams Lab Coordinator Relationship Specialty Start Date End Date Rosalind Cardoso FNP [address] [place] [address] PCP - General Family Medicine 04/28/21 documented as of this encounter
--- OUTSIDE RECORDS SUMMARY | 2024-11-26 09:11 | XMS_ITS | Encounter Summary ---
Author Organization [employer] Address [address] [facility] 7t [place] [address] Care Team Providers Care Manager Occupational Name Role Phone Rosalind Cardoso Primary Care Provider Encounter Details Date Type Department Care Team (Late st Contact Info) Description 04/17/2024 Orders Only [facility] MEDICINE [address] [place] [address] Rosalind Cardoso FNP [address] [place] [address] Type 2 diabetes mellitus with stage 3 [...] Description 11/26/2024 9:45 AM EDT Office Visit [facility] MEDICINE [address] [place] [address] Rosana Olvera MD [address] [place] [address] documented as of this encounter Visit Diagnoses [...] as of this encounter Care Teams Manager Occupational Relationship Specialty Start Date End Date Rosalind Cardoso FNP [address] [place] [address] PCP - General Family Medicine 04/28/21 documented as of this encounter
--- OUTSIDE RECORDS SUMMARY | 2024-11-26 09:11 | XMS_ITS | Encounter Summary ---
Author Organization [employer] Address [address] [place] [address] Care Team Providers Care Bulkhead Carpenter Name Role Phone Rosalind Cardoso Primary Care Provider [phone] Encounter Details Date Type Department Care Team (Late st Contact Info) Description 05/29/2024 Orders Only [facility] [address] [place] [address] Rosalind Cardoso FNP [address] [place] [address] Type 2 diabetes mellitus with stage 3 [...] Description 11/26/2024 9:45 AM EDT Office Visit [facility] [address] [place], [place] [phone] Rosana Olvera MD [address] [place], [place] [phone] documented as of this encounter Procedures Procedure [...] 2:18 PM EST) Triglycerides 266(H) <150 mg/dL [facility] Comment:Desirable Triglyceri de: less than 150 mg/dLBorderline High Triglyceride 150-199 mg/dLHigh Triglyceride: 200-499 mg/dLVery High Triglyceride: greater than or equal to 5OO mg/dL Cholesterol 250(H) <200 mg/dL [facility] Comment:Desirable Cholestero l: less than 200 mg/dLBorderline High Cholesterol: 200-239 mg/dLHigh Cholesterol: greater than 239 mg/dL LDL Cholesterol Calculated 161(H) <100 mg/dL [facility] Comment:Desirable LDL: less than 100 mg/dLNear Optimal/Above Optimal LDL: 110- 129 mg/dLBorderline High LDL: 130-159 mg/dLHigh LDL: 160-189 mg/dLVery High LDL: greater than or equal to 190 mg/dL HDL Cholesterol 36(L) >40 mg/dL [facility] Comment:Desirable HDL: great er than 40 mg/dL Note: This HDL assay may give artificially low results in patients with liver disease. 05/29/2024 2:18 PM EST 05/29/2024 2:18 PM EST us Generic External Data Provider LAB BLOOD ORDERAB LES Final Result [facility] [address] [place] [phone] * (ABNORMAL) Comprehensive Metabolic Panel (05/29/2024 2:18 PM EST) Sodium 134(L) 135 - 145 mmol/L [facility] Potassium 4.0 3.3 - 5.1 mmol/L [facility] Chloride 99 96 - 108 mmol/L [facility] Carbon Dioxide 26 22 - 29 mmol/L [facility] Anion Gap 13 12 - 20 [facility] Urea Nitrogen (BUN) 41(H) 9 - 16 mg/dL [facility] Creatinine, Serum 1.49(H) 0.5 - 1.4 mg/dL [facility] Estimated Glomerular Filt Rate 36 [facility] Comment:Chronic Kidney Disea se: Estimated GFR < 60 mL/min/[id number] Kidney Disease: Estimated GFR < 15 mL/min/1.73m2 Glucose 370(HH) 60 - 115 mg/dL [facility] Comment:Critical value for t est(s): GLUR Results called to concepcion back by: KJ Gallegos Person calling: JOHNY Date:05/29/24Time:1558 Calcium 9.5 8.4 - 10.2 mg/dL [facility] Bilirubin, Total 0.3 0.0 - 1.0 mg/dL [facility] Aspartate Amino Transferase 65(H) 5 - 31 U/L [facility] Alanine Aminotransferase 64(H) 0 - 31 U/L [facility] Total Protein 6.9 6.5 - 8.0 g/dL [facility] Albumin Level 3.4(L) 3.5 - 5.0 g/dL [facility] Alkaline Phosphatase 146(H) 39 - 117 U/L [facility] 05/29/2024 2:18 PM EST 05/29/2024 2:18 PM EST us Generic External Data Provider LAB BLOOD ORDERAB LES Final Result [facility] [address] [place] [phone] * (ABNORMAL) CBC auto differential (05/29/2024 2:18 PM EST) White Blood Count 12.0(H) 4.8 - 10.8 X10*3/uL [facility] Red Blood Count 4.01(L) 4.20 - 5.50 X10*6/uL [facility] Hemoglobin 7.8(L) 12.0 - 16.0 g/dl [facility] Hematocrit 25.3(L) 37.0 - 47.0 % [facility] Mean Corpuscular Volume 63.1(L) 80.0 - 98.0 fL [facility] Mean Corpuscular Hemoglobin 19.5(L) 27.0 - 33.0 pg [facility] Mean Corpuscular HGB Conc 30.8(L) 31.0 - 35.0 g/dl [facility] Red Cell Distribution Width 15.3 11.0 - 16.0 % [facility] Platelet Count 312 160 - 400 X10*3/uL [facility] Mean Platelet Volume 10.4 9.4 - 12.3 fL [facility] Neutrophils Percent Auto 71.1 45 - 73 % [facility] Imm Gran Pct Auto 0.9(H) 0.0 - 0.4 % [facility] Lymphocytes Percent Auto 18.6(L) 20 - 40 % [facility] Monocytes Percent Auto 6.4 2 - 11 % [facility] Eosinophils Percent Auto 2.6 0 - 4 % [facility] Basophils Percent Auto 0.4 0 - 2 % [facility] NRBC Pct Auto 0.2 0.0 - 0.2 /100WBC [facility] Neutrophils Absolute Auto 8.6(H) 2.0 - 8.3 x10*3/uL [facility] Imm Gran Abs Auto 0.11(H) 0.00 - 0.03 X10*3/uL [facility] Lymphocytes Absolute Auto 2.2 1.2 - 4.9 X10*3/uL [facility] Monocytes Absolute Auto 0.8 0.1 - 1.2 X10*3/uL [facility] Eosinophils Absolute Auto 0.3 0.0 - 0.4 X10*3/uL [facility] Basophils Absolute Auto 0.1 0.0 - 0.2 X10*3/uL [facility] NRBC Abs Auto 0.020(H) 0.0 - 0.012 X10*3/uL [facility] 05/29/2024 2:18 PM EST 05/29/2024 2:18 PM EST us Generic External Data Provider LAB BLOOD ORDERAB LES Final Result [facility] [address] [place] [phone] documented in this encounter Visit Diagnoses Diagnosis Type 2 diabetes mellitus with stage 3 chronic kidney disease, with long-term current use of insulin, unspecified whether stage 3a or 3b CKD ([facility]) Myalgia Unspecified myalgia and myositis documented in this encounter Additional Health Concerns Assessment Noted Time PHQ-9 Depression Total Score: 0 12/26/19 23 1:09 PM EDT documented as of this encounter Care Teams Bulkhead Carpenter Relationship Specialty Start Date End Date Rosalind Cardoso FNP [address] [place] [phone] PCP - General Family Medicine 04/28/21 documented as of this encounter
--- OUTSIDE RECORDS SUMMARY | 2024-11-26 09:11 | XMS_ITS | Clinical Summary ---
Author Organization [employer] Address [address] [place] [address] 7 [place] [address] Care Team Providers Care It Portfolio Manager Name Role Phone TeoRosalind bishop TAYM Primary Care Provider [phone] Allergies Active Allergy Reactions Criticality Noted Date Comments Empagliflozin Other 12/10/2023 Hx BKA, shared decision making to avoid SGLT-2i Medications * This document contains information received from the source organization and may not represent a complete record from that organization. Nutritional Supplements (Glucerna Shake) liquid Supplement meals with one glucerna drink daily as needed - Vanilla Glucerna 2 Active isosorbide mononitrate ER (Imdur) 60 MG 24 hr tablet 3 Active mupirocin (Bactroban) 2 % ointmentIndicatio ns:Other chronic osteomyelitis, left ankle and foot (CMS/HCC) APPLY TOPICALLY TO AFFECTED AREA(S) THREE TIMES DAILY FOR 10 DAYS 22 g 3 3 Active lidocaine-priloca ine (Emla) 2.5-2.5 % creamIndications: Other chronic osteomyelitis of left foot (CMS/HCC) APPLY TO THE AFFECTED AREA(S) ONCE DAILY NEEDED FOR PAIN 30 g 11 3 Active sodium chloride (Deep Sea Nasal [place]) 0.65 % nasal spray USE 1 SPRAY IN EACH NOSTRIL NEEDED FOR NASAL CONGESTION 44 mL 11 4 Active folic acid (Folvite) 1 MG tablet Take 1 tablet (1 mg) by mouth Once daily. 90 tablet 4 Active aspirin (Aspirin Adult Low Strength) 81 MG EC tabletIndications :Type 2 diabetes mellitus with hyperglycemia, with long-term current use of insulin (CMS/[facility]) Take 1 tablet (81 mg) by mouth Once daily. 90 tablet 3 4 Active chlorthalidone (Hygroton) 25 MG tablet Take 1 tablet (25 mg) by mouth in the morning. 90 tablet 3 4 Active atorvastatin (Lipitor) 80 MG tablet TAKE 1 TABLET BY MOUTH AT BEDTIME 90 tablet 3 4 Active metFORMIN (Glucophage) 1000 MG tabletIndications :Type 2 diabetes mellitus with foot ulcer, with long-term current use of insulin (CMS/[facility]) TAKE 1 TABLET BY MOUTH TWICE DAILY IN THE MORNING AND IN THE EVENING WITH MEALS 180 tablet 3 4 Active pantoprazole (ProtoNix) 40 MG EC tablet Take 1 tablet (40 mg) by mouth Once daily. 90 tablet 3 4 Active cholecalciferol (Vitamin D-3) 25 MCG (1000 UT) tablet Take 1 tablet (25 mcg) by mouth Once daily. 90 tablet 3 4 Active lisinopril 20 MG tablet Take 1 tablet (20 mg) by mouth in the morning. 90 tablet 1 4 Active metoprolol succinate XL (Toprol XL) 100 MG 24 hr tablet Take 1 tablet (100 mg) by mouth Once per day. Do not crush or chew. 90 tablet 3 4 05/29/20 25 Active ezetimibe (Zetia) 10 MG tabletIndications :Pure hypercholesterole mj, unspecified Take 1 tablet (10 mg) by mouth in the morning. 90 tablet 3 4 Active lidocaine (Lidoderm) 5 % patchIndications: Pain APPLY 1 PATCH TOPICALLY TO SKIN, LEAVE ON FOR 12 HOURS AND OFF FOR 12 HOURS DIRECTED 30 patch 11 4 Active magnesium oxide (Mag-Ox) 400 MG tabletIndications :Type 2 diabetes mellitus with other specified complication, unspecified whether senior living insulin use (CMS/HCC) TAKE 1 TABLET BY MOUTH THREE TIMES DAILY 270 tablet 1 4 Active amitriptyline (Elavil) 25 MG tabletIndications :Fibromyalgia Take 1 tablet (25 mg) by mouth at bedtime. 90 tablet 1 4 Active bacitracin 500 UNIT/GM ointment Apply topically 2 times daily. Apply to affected area daily 30 g 4 Active clotrimazole (Lotrimin) 1 % cream APPLY TOPICALLY TWICE DAILY FOR 28 DAYS 30 g 3 4 Active Blood Glucose Monitoring Suppl kitIndications:Ty pe 2 diabetes mellitus with foot ulcer, with long-term current use of insulin ([facility]) Use to check Blood glucose values three times dailyUse to check Blood glucose values three times daily 1 kit 1 5 Active Blood Pressure kit Use to check blood pressure daily and when symptomatic. 1 kit 5 Active Alcohol Swabs (SM Alcohol Prep) 70 % padsIndications:T ype 2 diabetes mellitus with foot ulcer, with long-term current use of insulin ([facility]) TEST BLOOD SUGAR THREE TIMES DAILY 100 each 11 5 Active FreeStyle lancets 1 each by Other route 3 times daily. Use as instructed 100 each 11 5 Active pen needle 31G x 5 mm misc Inject under the skin 3 times daily. Use as instructed 100 each 3 5 Active glucose blood (OneTouch Verio) test stripIndications: Type 2 diabetes mellitus with foot ulcer, with long-term current use of insulin ([facility]) USE DIRECTED TO TEST BLOOD SUGAR THREE TIMES DAILY 100 strip 11 5 Active amLODIPine (Norvasc) 5 MG tablet Take 1 tablet by mouth Once per day. 4 Active Repatha SureClick 140 MG/ML injection 5 Active furosemide (Lasix) 40 MG tablet Take 2 tablets by mouth Once per day. 4 Active insulin glargine (Lantus SoloStar) 100 UNIT/ML penIndications:Ty pe 2 diabetes mellitus with hyperglycemia ([facility]) Inject 42-48 units once daily as directed. Increase to 42 units today, then increase by 2 units every 3-4 days if FBS > 130mg/dl with NO hypoglycemia. 5 Active Acetaminophen Extra Strength 500 MG tabletIndications :Low back pain at multiple sites TAKE 1 TO 2 TABLETS BY MOUTH EVERY 8 HOURS NEEDED (for pain) 100 tablet 3 5 Active Active Problems Problem Noted Date Diagnosed Date Cervicalgia 08/11/2023 Overview (08/11/2023): ?? Evaluation through [facility] Spine [facility] - MRI cervical spine completed Jul 2023 unremarkable ?? Referral to [facility] Pain Management 08/11/23 Fibromyalgia 05/14/2023 Overview (12/10/2023): Previously followed by [facility] Neurology, Dr. Jolly Continues with amitriptyline 25mg [...] BKA performed by Dr. Borden 09/01/22 at [facility] -Indication: gangrene and ulcers of the left foot, charcot foot, and OM Assessment & Plan (10/03/2023 12:46 PM EDT): Plan for updated prosthetic to accommodate the increased swelling Assessment & Plan (01/31/2023 6:27 PM EDT): ?? Currently completing at home physical therapy, referral for physical therapy at [facility] Assessment & Plan (12/26/2022 8:59 AM [...] -Cont Metoprolol succ 100mg daily -Following with [facility] Cards Assessment & Plan (11/05/2022 9:48 PM [...] Routine health maintenance 06/20/2022 Overview (03/16/2024): -Optometry: November 2021 -Dental: [facility] dental clinic -Pap: reports last 2019 and believes results were normal, referred to UroGYN -Mammo: 11/29/23 BIRADS 1 -Colorectal CA screening: iFOBT neg 12/18/21, due Assessment & Plan (10/03/2023 12:48 PM EDT): Complex care management/medical binder completed today and reviewed with patient -Pt continues to decline all vaccines Assessment & Plan (06/21/2023 9:30 PM EST): -Optometry: NABORNovember 2021 -Dental: [facility] dental clinic -Pap: reports last 2019 and believes results were normal, referred to UroGYN -Colorectal CA screening: iFOBT neg 12/18/21, due December 2022 ?? Complex care management/medical binder completed today with patient. Medical binder to be picked up next week when elevator in apartment functioning. Assessment & Plan (11/05/2022 9:38 PM EDT): -Optometry: November 2021 -Dental: [facility] dental clinic -Pap: reports last 2019 and believes results were normal, referred to UroGYN -Colorectal CA screening: iFOBT neg 12/18/21, due December 2022 -Mammogram: BIRADS 3 on 01/16/22, due Jul 2022 -Outstanding vaccines: influenza, Tdap, Shingrix, PCV20, COVID ?? [facility] Employee Relations Specialist Osi: plan to schedule follow up appts the following specialists: ?? [facility] Nephrology ?? [facility] Endo ?? [facility] GI ?? [facility] Cards ?? [facility] UroGYN Assessment & Plan (06/20/2022 6:06 PM EST): -Optometry: NABOR November 2021 -Dental: [facility] dental clinic -Pap: reports last 2019 [...] to add microalbumin to routine blood work [id number], ordered Irritable bowel syndrome 09/21/2021 Peripheral vascular [...] 09/26/2022 HGBA1C 11.3 (H) 08/22/2021 -Followed by [facility] Endo -Cont current medication regimen metformin 1000mg BID Lantus 40 units at bedtime Actos 15mg daily -Movement/exercise as tolerated Pt declines any med adjustments at this time, although future considerations include: -Consider DC of Actos given cardiac conditions -Consider addition of GLP1 - Referred to [facility] CDTM clinic on 08/03/24 Avoid SGLT2 [...] EST): -A1c 8.0 on 05/01/22 -Followed by [facility] Endo -Continue on current regimen: -metformin 1000mg BID -Jardiance 10mg daily -Lantus 40 units at bedtime -Actos 15mg daily -Movement/exercise as tolerated Beta thalassemia trait 10/09/2018 Second degree uterine prolapse 10/09/2018 Urinary incontinence 10/09/2018 Overview (12/10/2023): Following with [facility] UroGYN for hx urinary incont and uterine [...] Plan (10/03/2023 12:45 PM EDT): Following with [facility] Heme/Onc, plan to repeat labs through PCP [id number]: CBC, CMP, magnesium, sed rate, CRP, microalbumin Continues with Procrit while Hemoglobin < 10 Assessment & Plan (05/14/2023 12:02 PM EST): Following with [facility] Heme/Onc, plan to repeat labs today through PCP Q 2 weeks: ?? CBC, CMP, magnesium, sed rate, CRP, microalbumin Assessment & Plan (12/26/2022 9:00 AM EDT): Previously followed by [facility] Heme/Onc, plan to repeat labs today through PCP Q 2 weeks: ?? CBC, CMP, magnesium, sed rate, CRP, microalbumin Assessment & Plan (11/05/2022 9:50 PM EDT): Previously followed by [facility] Heme/Onc, plan to repeat labs today through PCP. Ordered. Osteoarthritis of both knees 08/12/2017 Primary hypertension 03/16/2016 Overview (08/03/2024): Following with [facility] Cards - Dr. Middleton/CHANDU Yo. September 2023: [...] or cuboid bones. Pt was seen by [facility] ID and initiated on PO doxy x 6 weeks, with possible need for surgical intervention. Following with [facility] Vascular - Dr. Vigil - and podiatry. 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 Date Type Department Care Team Description 11/25/2024 Telephone [facility] [address] [place], [place] [phone] Rosalind Cardoso FNP Chart Prep 11/23/2024 Refill [facility] [address] [place] [address] Rosalind Cardoso FNP 11/20/2024 Orders Only [facility] [address] [place] [address] Rosalind Cardoso FNP Type 2 diabetes mellitus with stage 3 chronic kidney disease, with long-term current use of insulin, unspecified whether stage 3a or 3b CKD ([facility]); Primary hypertension; Stage 3b chronic kidney disease (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/HCC) 10/23/2024 Orders Only [facility] [address] [place] [address] Rosalind Cardoso, CITY SUPERINTENDENT Type 2 diabetes mellitus with stage 3 chronic kidney disease, with long-term current use of insulin, unspecified whether stage 3a or 3b CKD (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/HCC) 10/16/2024 Telephone [facility] [address] [place] [place] [phone] Rosalind Cardoso FNP 10/16/2024 Telephone [facility] [address] [place] [address] Amira Ayoub, PharmMathew 10/13/2024 Telephone [facility] [address] [place] [address] Rosalind Cardoso FNP 10/13/[address] [address] Rosalind Cardoso, CITY SUPERINTENDENT Appointment Request 10/09/2024 Orders Only [facility] [address] [place] [address] Rosalind Cardoso, CITY SUPERINTENDENT Type 2 diabetes mellitus with stage 3 chronic kidney disease, with long-term current use of insulin, unspecified whether stage 3a or 3b CKD ([facility]/HCC); Primary hypertension; Stage 3b chronic kidney disease ([facility]/HCC); 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 ([facility]/HCC) 10/07/2024 Telephone [facility] [address] [place] [phone] Rosalind Cardoso, CITY SUPERINTENDENT PCP Contact (TAMY Ram [facility] Nurses/Please call to let her know that hemoglobin dropped to 8.6, sodium level did improve to 134, and kidney function also improved, creatinine improved to 2.35. Her baseline Cr, however, is around 1.5, so this is still considered elevated. Would continue to recommend ED visit, especially if not feeling well. If she refuses, please review meds she is currently taking. Would hold lisinopril over the next week, hydrate well, and follow-up with darinel Collier) 10/06/2024 Orders Only GENERIC EXTERNAL DATA DEPARTMENT Provider, Generic External Data 10/05/2024 Telephone [facility] [address] [place] [address] Rosalind Cardoso FNP Results; Lab Orders 10/02/2024 Orders Only GENERIC EXTERNAL DATA DEPARTMENT Provider, Generic External Data 09/25/2024 Orders Only [facility] [address] [place] [address] Rosalind Cardoso FNP Type 2 diabetes mellitus with stage 3 chronic kidney disease, with long-term current use of insulin, unspecified whether stage 3a or 3b CKD (CMS/HCC) (Primary Dx); Primary hypertension; Stage 3b chronic kidney disease (CMS/HCC); 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 (CMS/HCC) 09/11/2024 Orders Only [facility] [address] [place] [address] Rosalind Cardoso FNP Type 2 diabetes mellitus with stage 3 chronic kidney disease, with long-term current use of insulin, unspecified whether stage 3a or 3b CKD (CMS/HCC); Primary hypertension; Stage 3b chronic kidney disease (CMS/HCC); 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 (CMS/HCC) 09/10/2024 Telephone [facility] [address] [place] [address] Amira Ayoub, [place] 09/10/2024 Refill [facility] [address] [place] [address] Rosalind Cardoso FNP Low back pain at multiple sites 09/01/2024 Telephone [facility] [address] [place] [address] Glenn Winn MA Chart Prep from Last 3 Months Social History Tobacco [...] Description 11/26/2024 9:45 AM EDT Office Visit [facility] [address] [place] [address] Rosana Olvera MD [address] [place] [address] Health Maintenance Due Date Last Done Comments [...] history exists Depression Screening 08/03/2025 08/03/2024, 08/03/19 Disability Screening 08/03/2025 08/03/2024 Tobacco Screening 08/03/2025 08/03/2024 Lipid Panel 10/02/2025 10/02/2024, 05/09, 09/10/2023, Additional history exists HIV Screening Completed [...] age to complete this topic Meningococcal B Vaccine Aged Out No l onger eligible based on patient's age to complete [...] stage 3a or 3b CKD (CMS/HCC) Myalgia POCT GLYCATED HEMOGLOBIN, TOTAL Routine 08/03/2024 10:14 [...] 10:27 AM EDT) Only the most recent of2 resultswithin the time period is included. White Blood Count 9.0 4.8 - 10.8 X10*3/uL [facility] Red Blood Count 4.55 4.20 - 5.50 X10*6/uL [facility] Hemoglobin 8.6(L) 12.0 - 16.0 g/dl [facility] Hematocrit 27.5(L) 37.0 - 47.0 % [facility] Mean Corpuscular Volume 60.4(L) 80.0 - 98.0 fL [facility] Mean Corpuscular Hemoglobin 18.9(L) 27.0 - 33.0 pg [facility] Mean Corpuscular HGB Conc 31.3 31.0 - 35.0 g/dl [facility] Red Cell Distribution Width 17.9(H) 11.0 - 16.0 % [facility] Platelet Count 343 160 - 400 X10*3/uL [facility] Mean Platelet Volume 10.0 9.4 - 12.3 fL [facility] Neutrophils Percent Auto 53.7 45 - 73 % [facility] Imm Gran Pct Auto 0.4 0.0 - 0.4 % [facility] Lymphocytes Percent Auto 34.5 20 - 40 % [facility] Monocytes Percent Auto 7.0 2 - 11 % [facility] Eosinophils Percent Auto 3.7 0 - 4 % [facility] Basophils Percent Auto 0.7 0 - 2 % [facility] NRBC Pct Auto 0.0 0.0 - 0.2 /100WBC [facility] Neutrophils Absolute Auto 4.9 2.0 - 8.3 x10*3/uL [facility] Imm Gran Abs Auto 0.04(H) 0.00 - 0.03 X10*3/uL [facility] Lymphocytes Absolute Auto 3.1 1.2 - 4.9 X10*3/uL [facility] Monocytes Absolute Auto 0.6 0.1 - 1.2 X10*3/uL [facility] Eosinophils Absolute Auto 0.3 0.0 - 0.4 X10*3/uL [facility] Basophils Absolute Auto 0.1 0.0 - 0.2 X10*3/uL [facility] NRBC Abs Auto 0.000 0.0 - 0.012 X10*3/uL [facility] 10/06/2024 10:2 7 AM EDT 10/06/2024 10:27 AM EDT us Generic External Data Provider LAB BLOOD ORDERAB LES Final Result Performing Organization Address [facility] Co de Phone Number [facility] [address] [place] [phone] * (ABNORMAL) Sed Rate by Modified [place] (10/06/2024 10:27 AM EDT) Only the most recent of2 resultswithin the time period is included. Erythrocyte Sedimentation Rate 53(H) 0 - 20 MM/HR [facility] Comment:Patients with polycy themia and many hemoglobin abnormalitiesmay have depressed sed rates whereas patients with anemiamay have elevated sed rates. Blood Venous blood specimen / Unknown 10/06/2024 10:27 AM EDT 10/06/2024 10:27 AM EDT Rosalind Cardoso CITY SUPERINTENDENT LAB BLOOD ORDERABLES Final Res ult Performing Organization Address [facility] Co de Phone Number [facility] [address] [place] [phone] * (ABNORMAL) Prothrombin Time-INR (10/06/2024 10:27 AM EDT) Only the most recent of2 resultswithin the time period is included. Prothrombin Time 10.4(L) 10.9 - 12.4 SEC [facility] INTERNATIONAL NORM RATIO 0.9 0.9 - 1.1 [facility] Comment:INTERNATIONAL NORMAL IZED RATIO (INR) [...] EDT 10/06/2024 10:27 AM EDT Rosalind Cardoso CITY SUPERINTENDENT LAB BLOOD ORDERABLES Final Res ult Performing Organization Address [facility] Co de Phone Number [facility] [address] [place] [phone] * (ABNORMAL) C-reactive Protein (10/06/2024 10:27 AM EDT) Only the most recent of2 resultswithin the time period is included. C Reactive Protein 0.59(H) < or = 0.50 mg/dL [facility] Blood Venous blood specimen / Unknown 10/06/2024 10:27 AM EDT 10/06/2024 10:27 AM EDT Rosalind Cardoso [facility] LAB BLOOD ORDERABLES Final Res ult Performing Organization Address [facility] Phone Number [facility] [address] [place] [phone] * Magnesium (10/06/2024 10:27 AM EDT) Only the most recent of2 resultswithin the time period is included. Magnesium 2.0 1.6 - 2.6 mg/dL [facility] Blood Venous blood specimen / Unknown 10/06/2024 10:27 AM EDT 10/06/2024 10:27 AM EDT Rosalind Cardoso CITY SUPERINTENDENT LAB BLOOD ORDERABLES Final Res ult Performing Organization Address [facility] Co de Phone Number [facility] [address] [place] [phone] * (ABNORMAL) Comprehensive Metabolic Panel (10/06/2024 10:27 AM EDT) Only the most recent of2 resultswithin the time period is included. Sodium 134(L) 135 - 145 mmol/L [facility] Potassium 4.4 3.3 - 5.1 mmol/L [facility] Chloride 101 96 - 108 mmol/L [facility] Carbon Dioxide 24 22 - 29 mmol/L [facility] Anion Gap 13 12 - 20 [facility] Urea Nitrogen (BUN) 85(H) 9 - 16 mg/dL [facility] Creatinine, Serum 2.35(H) 0.5 - 1.4 mg/dL [facility] Estimated Glomerular Filt Rate 21 [facility] Comment:Chronic Kidney Disea se: Estimated GFR < 60 mL/min/[id number] Kidney Disease: Estimated GFR < 15 mL/min/1.73m2 Glucose 298(H) 60 - 115 mg/dL [facility] Calcium 9.6 8.4 - 10.2 mg/dL [facility] Bilirubin, Total 0.3 0.0 - 1.0 mg/dL [facility] Aspartate Amino Transferase 15 5 - 31 U/L [facility] Alanine Aminotransferase 7 0 - 31 U/L [facility] Total Protein 6.9 6.5 - 8.0 g/dL [facility] Albumin Level 3.6 3.5 - 5.0 g/dL [facility] Alkaline Phosphatase 91 39 - 117 U/L [facility] Blood Venous blood specimen / Unknown 10/06/2024 10:27 AM EDT 10/06/2024 10:27 AM EDT us Rosalind Cardoso CITY SUPERINTENDENT LAB BLOOD ORDERABLES Final Res ult [facility] [address] [place] [phone] * (ABNORMAL) Lipid Panel, Standard (10/02/2024 3:12 PM EDT) Triglycerides 323(H) <150 mg/dL [facility] Comment:Desirable Triglyceri de: less than 150 mg/dLBorderline High Triglyceride 150-199 mg/dLHigh Triglyceride: 200-499 mg/dLVery High Triglyceride: greater than or equal to 5OO mg/dL Cholesterol 311(H) <200 mg/dL [facility] Comment:Desirable Cholestero l: less than 200 mg/dLBorderline High Cholesterol: 200-239 mg/dLHigh Cholesterol: greater than 239 mg/dL LDL Cholesterol Calculated 212(H) <100 mg/dL [facility] Comment:Desirable LDL: less than 100 mg/dLNear Optimal/Above Optimal LDL: 110- 129 mg/dLBorderline High LDL: 130-159 mg/dLHigh LDL: 160-189 mg/dLVery High LDL: greater than or equal to 190 mg/dL HDL Cholesterol 35(L) >40 mg/dL [facility] Comment:Desirable HDL: great er than 40 mg/dL Note: This HDL assay may give artificially low results in patients with liver disease. 10/02/2024 3:1 2 PM EDT 10/02/2024 3:12 PM EDT us Generic External Data Provider LAB BLOOD ORDERAB LES Final Result [facility] [address] [place] [phone] * (ABNORMAL) POCT HGB A1C (08/03/2024 10:14 AM EST) Hemoglobin A1C 14.8(A) 4.0 - 6.0 % QC Media Lot # [id number] Lot# Expiration Date [id number] Blood 08/03/2024 10:1 4 AM EST Rosalind Cardoso CITY SUPERINTENDENT POINT OF CARE TEST ENTER/EDIT ORDERABLES Final Result * BI Mammogram Screening Tomosynthesis Bilateral (11/29/2023 2:40 PM EDT) Anatomical Region Laterality Modality Breast Bilateral Mammography 11/29/2023 2:40 PM EDT Narrative 12/27/2023 3:26 PM EDT ? [facility] ? [address] ?[place] [address] ? Mammography Report ? Signed ? Patient: Manus,Mitra ?MR#: [id number] ? : 1965 ?Acct:[id number] ? Age/Sex: 58 / F ?ADM Date: 11/29/23 ? Loc: HO.MAMMO ? Attending Dr: Rosalind Cardoso CITY SUPERINTENDENT ? Ordering Physician: Rosalind Cardoso CITY SUPERINTENDENT ?Results: 1Negat ?? moncho ? Date of Service: 11/29/23 ?Follow Up: 1 Year From Orig ?? inal Mammogram ? Procedure(s): MM tomosynthesis screening BI ?? Accession Number(s): [id number] ? cc: Rosalind Cardoso CITY SUPERINTENDENT ? EXAMINATION: ?? MM SCREENING DIGITAL BREAST TOMOSYNTHESIS, BILATERAL ? CLINICAL INFORMATION: ? Screening. Asymptomatic. ? COMPARISON: ?? Mammography: This study is compared with prior exams dating back to ?? 2016. ?? TECHNIQUE: ?? Digital breast tomosynthesis is [...] 1522 ? DD/ 1440 ? TD/TT: ? Cobol Engineer: ? Procedure Note Mauri, Mily - 12/27/2023 [facility] [address] [place] [address] Mammography Report Signed Patient: Dany Parish#: [id number] : 1965Acct:[id number] Age/Sex: 58 / FADM Date: 11/29/23 Loc: HO.MAMMO Attending Dr: Rosalind MORELOS Ordering Physician: Rosalind CardosoPResults: 1Negat moncho Date of Service: 11/29/23Follow Up: 1 Year From Orig inal Mammogram Procedure(s): MM tomosynthesis screening BI Accession Number(s): [id number] cc: Rosalind Cardoso EXAMINATION: MM SCREENING DIGITAL [...] in OV> 12/27/23 1522 DD/ 1440 TD/TT: Cobol Engineer: us Rosalind MORELOS IMG BI PROCEDURES Final Result * HEPATITIS C AB W/REFL TO HCV RNA, QN, PCR (08/22/2021 8:22 AM EST) HEPATITIS C ANTIBODY NON-REACT MONCHO NON-REACT MONCHO [facility] INDEX 0.02 <1.00 [facility] Comment: ?? HCV antibody was non-reactive. There is no laboratory ?? evidence of HCV infection. ?? In most cases, no further action is required. However, if recent HCV exposure is suspected, a test for HCV RNA (test code 05852) is suggested. ?? For additional information please refer to http://education.[employer]ta[employer]/faq/YUB29l9 (This link is being provided for informational/ educational purposes only.) ?? 08/22/2021 8:22 AM EST us Rosalind MORELOS HISTORICAL/NON ORDERABLE LABS Final Result [facility] [address] * HIV 1/2 ANTIGEN/ANTIBODY,FOURTH GENERATION W/RFL (08/22/2021 8:22 AM EST) HIV-1/2 ANTIGEN AND ANTIBODIES, 4TH GENERATION W/ REFLEX NON-REACT MONCHO NON-REACT MONCHO [facility] Comment: HIV-1 antigen and HIV-1/HIV-2 [...] ? For additional information please refer to http://education.AltaV[employer]/faq/KSA201 (This link is being provided for informational/ educational purposes only.) ? The performance of this assay has not been clinically validated in patients less than 2 years old. ?? 08/22/2021 8:22 AM EST us Rosalind Cardoso CITY SUPERINTENDENT LAB BLOOD ORDERABLES Final Res ult [facility] [address] from Last 3 Months or Most Recently Relevant to Health Maintenance Insurance [facility]ARE < 65 [place]ICK[place] [id number] [place] [id number] Care Teams It Portfolio Manager Relationship Specialty Start Date End Date Rosalind Cardoso FNP [address] [place] [place] [address] PCP - General Family Medicine 04/28/21
--- OUTSIDE RECORDS SUMMARY | 2024-11-26 09:11 | XMS_ITS | Encounter Summary ---
Author Organization [employer] Address [address] [facility] 7t [place] [address] Care Team Providers Care Project Controls Specialist Name Role Phone Rosalind Cardoso Primary Care Provider [phone] Encounter Details Date Type Department Care Team (Late st Contact Info) Description 07/24/2024 Orders Only [facility] MEDICINE [address] [place] [address] Rosalind Cardoso FNP [address] [place] [address] Type 2 diabetes mellitus with stage 3 [...] 9:45 AM EDT Office Visit [facility] [address] [place] [address] Rosana Olvera MD [address] [place] [address] documented as of this encounter Visit Diagnoses [...] documented as of this encounter Care Teams Project Controls Specialist Relationship Specialty Start Date End Date Rosalind Cardoso FNP [address] [place] [address] PCP - General Family Medicine 04/28/21 documented as of this encounter
--- OUTSIDE RECORDS SUMMARY | 2024-11-26 09:11 | XMS_ITS | Encounter Summary ---
Author Organization [employer] Address [address] [place] [address] 7 [place] [address] Care Team Providers Care Operational Communication Chief Name Role Phone Rosalind Cardoso Primary Care Provider [phone] Encounter Details Date Type Department Care Team (Late st Contact Info) Description 08/21/2024 Orders Only [facility] MEDICINE [address] [place] [address] Rosalind Cardoso FNP [address] [place] [address] Type 2 diabetes mellitus with stage 3 [...] Office Visit [facility] MEDICINE [address] [place] [address] Rosana Olvera MD [address] [place] [address] documented as of this encounter Visit Diagnoses [...] documented as of this encounter Care Teams Operational Communication Chief Relationship Specialty Start Date End Date Rosalind Cardoso FNP [address] [place] [address] PCP - General Family Medicine 04/28/21 documented as of this encounter
--- OUTSIDE RECORDS SUMMARY | 2024-11-26 09:11 | XMS_ITS | Encounter Summary ---
Author Organization [employer] Address [address] [facility] 7t [place] [address] Care Team Providers Care Clerk Entry Level Name Role Phone Rosalind Cardoso Primary Care Provider [phone] Encounter Details Date Type Department Care Team (Late st Contact Info) Description 04/03/2024 Orders Only [facility] MEDICINE [address] [place] [address] Rosalind Cardoso FNP [address] [place] [address] Type 2 diabetes mellitus with stage 3 [...] Description 11/26/2024 9:45 AM EDT Office Visit [facility] [address] [place] [address] Rosana Olvera MD [address] [place] [address] documented as of this encounter Visit Diagnoses [...] documented as of this encounter Care Teams Clerk Entry Level Relationship Specialty Start Date End Date Rosalind Cardoso FNP [address] [place] [address] PCP - General Family Medicine 04/28/21 documented as of this encounter
--- OUTSIDE RECORDS SUMMARY | 2024-11-26 09:11 | XMS_ITS | Encounter Summary ---
Author Organization [employer] Address [address] [place] [address] 7 [place] [address] Care Team Providers Care Sound Effects Technician Name Role Phone Rosalind Cardoso Primary Care Provider [phone] Encounter Details Date Type Department Care Team ([facility] st Contact Info) Description 07/31/2024 Orders Only [facility] MED & PEDS [address] [place], [place] [phone] Rosalind Cardoso FNP [address] [place] [address] Type 2 diabetes mellitus with stage 3 [...] AM EDT documented as of this encounter Functional Status * Over the past 2 weeks, how often have you been bothered by any of the following problems? Question Answer Date of Assessment Author Patient Health Questionnaire -2 Score 0 08/03/2024 9:07 AM Jyotsna Collins [place] * Little interest or pleasure in doing things Answer Date of Assessment Author Not at all 08/03/2024 9:07 AM Kasey Collins [place] * Feeling down, depressed, or hopeless Answer Date of Assessment Author Not at all 08/03/2024 9:07 AM Kasey Collins [place] * Trouble falling or staying asleep, or sleeping too much Answer Date of Assessment Author Nearly every day 08/03/2024 9:07 AM Kasey Carrillo [place] * Feeling tired or having little energy Answer Date of Assessment Author Nearly every day 08/03/2024 9:07 AM Kasey Carrillo [place] * Poor appetite or overeating Answer Date of Assessment Author Not at all 08/03/2024 9:07 AM Kasey Collins [place] * Feeling bad about yourself - or that you are a failure or have let yourself or your family down Answer Date of Assessment Author Not at all 08/03/2024 9:07 AM Kasey Collins [place] * Trouble concentrating on things, such as reading the newspaper or watching television Answer Date of Assessment Author Not at all 08/03/2024 9:07 AM Kasey Collins [place] * Moving or speaking so slowly that other people could have noticed? Or the opposite - being so fidgety or restless that you have been moving around a lot more than usual. Answer Date of Assessment Author Not at all 08/03/2024 9:07 AM Kasey Collins MA * Thoughts that you would be better off or hurting yourself in some way Answer Date of Assessment Author Not at all 08/03/2024 9:07 AM Kasey Collins MA * Patient Health Questionnaire-9 Score Answer Date of Assessment Author 6 08/03/2024 9:07 AM Kasey Collins MA * How difficult have these problems made it for you to do your work, take care of things at home, or get along with other people? Answer Date of Assessment Author Not difficult at all 08/03/2024 9:07 AM Kasey Norman [place] documented as of this encounter Plan of Treatment Upcoming Encounters Date Type Department Care Team (Late st Contact Info) Description 11/26/2024 9:45 AM EDT Office Visit [facility] MEDICINE [address] [place] [address] Rosana Olvera MD [address] [place] [address] documented as of this encounter Visit Diagnoses [...] documented as of this encounter Care Teams Sound Effects Technician Relationship Specialty Start Date End Date Rosalind Cardoso FNP [address] [place] [address] PCP - General Family Medicine 04/28/21 documented as of this encounter
--- OUTSIDE RECORDS SUMMARY | 2024-11-26 09:11 | XMS_ITS | Encounter Summary ---
Author Organization [employer] Address [address] [place] [address] 7 [place] [address] Care Team Providers Care Supportability Engineer Name Role Phone Rosalind Cardoso Primary Care Provider [phone] Encounter Details Date Type Department Care Team ([facility] st Contact Info) Description 04/10/2024 Orders Only [facility] MED & PEDS [address] [place], [place] [phone] Rosalind Cardoso FNP [address] [place] [address] Type 2 diabetes mellitus with stage 3 [...] Description 11/26/2024 9:45 AM EDT Office Visit [facility] MEDICINE [address] [place] [address] Rosana Olvera MD [address] [place] [address] documented as of this encounter Visit Diagnoses [...] documented as of this encounter Care Teams Supportability Engineer Relationship Specialty Start Date End Date Rosalind Cardoso FNP [address] [place] [address] PCP - General Family Medicine 04/28/21 documented as of this encounter
--- OUTSIDE RECORDS SUMMARY | 2024-11-26 09:11 | XMS_ITS | Encounter Summary ---
Author Organization [employer] Address [address] [facility] 7t [place] [address] Care Team Providers Care Billing Auditor Name Role Phone Rosalind Cardoso Primary Care Provider [phone] Encounter Details Date Type Department Care Team (Late st Contact Info) Description 07/10/2024 Orders Only [facility] MEDICINE [address] [place] [address] Rosalind Cardoso FNP [address] [place] [address] Type 2 diabetes mellitus with stage 3 [...] Description 11/26/2024 9:45 AM EDT Office Visit [facility] MEDICINE [address] [place] [address] Rosana Olvera MD [address] [place] [address] documented as of this encounter Visit Diagnoses [...] documented as of this encounter Care Teams Billing Auditor Relationship Specialty Start Date End Date Rosalind Cardoso FNP [address] [place] [address] PCP - General Family Medicine 04/28/21 documented as of this encounter
--- OUTSIDE RECORDS SUMMARY | 2024-11-26 09:11 | XMS_ITS | Encounter Summary ---
Author Organization [employer] Address [address] [facility] 7t [place] [address] Care Team Providers Care Park Landscape Architect Name Role Phone Rosalind Cardoso Primary Care Provider [phone] Encounter Details Date Type Department Care Team ([facility] st Contact Info) Description 06/25/2023 Telephone [facility] MEDICINE [address] [place] [address] Rosalind Cardoso FNP [address] [place] [address] Social History Tobacco Use Types Packs/Day Years [...] 11/26/2024 9:45 AM EDT Office Visit [facility] MEDICINE [address] [place] [address] Rosana Olvera MD [address] [place] [address] documented as of this encounter Visit Diagnoses Not on filedocumented in this encounter Additional Health Concerns Assessment Noted Time PHQ-9 Depression Total Score: 0 12/26/19 23 1:09 PM EDT documented as of this encounter Care Teams Park Landscape Architect Relationship Specialty Start Date End Date Rosalind Cardoso FNP [address] [place] [address] PCP - General Family Medicine 04/28/21 documented as of this encounter
--- OUTSIDE RECORDS SUMMARY | 2024-11-26 09:11 | XMS_ITS | Encounter Summary ---
Author Organization [employer] Address [address] [place] [address] 7 [place] [address] Care Team Providers Care Manager Mechanical Name Role Phone Rosalind Cardoso Primary Care Provider [phone] Encounter Details Date Type Department Care Team ([facility] st Contact Info) Description 06/05/2024 Orders Only [facility] MED & PEDS [address] [place], [place] [phone] Rosalind Cardoso FNP [address] [place] [address] Type 2 diabetes mellitus with stage 3 [...] 11/26/2024 9:45 AM EDT Office Visit [facility] MEDICINE [address] [place] [address] Rosana Olvera MD [address] [place] [address] documented as of this encounter Procedures Procedure [...] Prothrombin Time 11.7 10.9 - 12.4 SEC [facility] INTERNATIONAL NORM RATIO 1.0 0.9 - 1.1 [facility] Comment:INTERNATIONAL NORMAL IZED RATIO (INR) [...] 06/08/2024 9:25 AM EST us Rosalind Cardoso SOCIAL WORKER MASTERS LAB BLOOD ORDERABLES Final Res ult [facility] [address] [place] [address] [phone] * (ABNORMAL) C-reactive Protein (06/08/2024 9:25 AM EST) C Reactive Protein 1.04(H) < or = 0.50 mg/dL [facility] Blood Venous blood specimen / Unknown 06/08/2024 9:25 AM EST 06/08/2024 9:25 AM EST Rosalind Cardoso SOCIAL WORKER MASTERS LAB BLOOD ORDERABLES Final Res ult Performing Organization Address [facility] Co de Phone Number [facility] [address] [place] [phone] * (ABNORMAL) Sed Rate by Modified Westergren (06/08/2024 9:25 AM EST) Erythrocyte Sedimentation Rate 54(H) 0 - 20 MM/HR [facility] Comment:Patients with polycy themia and many hemoglobin abnormalitiesmay have depressed sed rates whereas patients with anemiamay have elevated sed rates. Blood Venous blood specimen / Unknown 06/08/2024 9:25 AM EST 06/08/2024 9:25 AM EST Rosalind Cardoso SOCIAL WORKER MASTERS LAB BLOOD ORDERABLES Final Res ult Performing Organization Address [facility] Co de Phone Number [facility] [address] [place] [address] [phone] * Magnesium (06/08/2024 9:25 AM EST) Magnesium 1.9 1.6 - 2.6 mg/dL [facility] Blood Venous blood specimen / Unknown 06/08/2024 9:25 AM EST 06/08/2024 9:25 AM EST Rosalind Cardoso SOCIAL WORKER MASTERS LAB BLOOD ORDERABLES Final Res ult Performing Organization Address [facility] Co de Phone Number [facility] [address] [place] [address] [phone] documented in this encounter Visit Diagnoses Diagnosis Type 2 diabetes mellitus with stage 3 chronic kidney disease, with long-term current use of insulin, unspecified whether stage 3a or 3b CKD (CMS/HCC) Primary hypertension Unspecified essential hypertension Stage 3b chronic kidney disease (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
--- OUTSIDE RECORDS SUMMARY | 2024-11-26 09:11 | XMS_ITS | Encounter Summary ---
Author Organization [employer] Address [address] [place] [address] 7 [place] [address] Care Team Providers Care Manager Managed Backup Services Name Role Phone Rosalind Cardoso Primary Care Provider [phone] Reason for Visit * Reason Onset Date Comments Chart Prep 11/25/2024 Encounter Details Date Type Department Care Team ([facility] st Contact Info) Description 11/25/2024 Telephone [facility] MEDICINE [address] [place] [address] Rosalind Cardoso FNP [address] [place] [address] Chart Prep Social History Tobacco Use Types [...] encounter Miscellaneous Notes * Telephone Encounter - Zuhair Sanchez MA - 11/25/2024 11:54 AM EDT Chart Prep Labs: not done Images: not applicable Referrals: appointment pending Vaccines due: Covid, Flu, PCV20, Tdap, and Zoster Screenings: colonoscopy, mammogram, pap smear, eye exam, and foot exam Overdue care gaps: A1c, Glucose, SBIRT, ANDREW-7, and Tobacco documented in this encounter Plan of Treatment Upcoming Encounters Date Type Department Care Team (Late st Contact Info) Description 11/26/2024 9:45 AM EDT Office Visit [facility] MEDICINE [address] [place] [address] Rosana Olvera MD [address] [place] [address] documented as of this encounter Visit Diagnoses Not on filedocumented in this encounter Additional Health Concerns Assessment Noted Time PHQ-9 Depression Total Score: 6 08/03/19 25 9:07 AM EST documented as of this encounter Care Teams Manager Managed Backup Services Relationship Specialty Start Date End Date Rosalind Cardoso FNP [address] [place] [address] PCP - General Family Medicine 04/28/21 documented as of this encounter
--- OUTSIDE RECORDS SUMMARY | 2024-11-26 09:11 | XMS_ITS | Patient Health Record ---
Author Organization [facility] Address [address] [facility] [place] [address] Care Team Providers Care Rooming House Operator Name Role Phone Lesvia Sosa Unavailable [phone] Reason For Referral No Information Medications Medication [...] Oral for 90 Active [employer] Short Pen [place] 31G X 8 MM USE ONCE DAILY [...] Problem Status W/U Status Risk Notes Problem 575842541 Charcot's joint, left ankle and foot (M14.672) Active confirmed Problem 544165432 Hammer toe of ri ght foot (M20.41) Active confirmed Problem 484455092 Hammer toe of le ft foot (M20.42) Active confirmed Problem 548261161 Neuropathy (G62.9) Active confirmed Problem 83633938 Type 2 diabetes mellitus with polyneuropathy (E11.42) Active confirmed Plan Of Treatment Pending Test Test Name Order Date X ray : Foot, left 3V 11/28/2021 X ray : Foot, right 3V 11/28/2021 Insurance Providers Payer Name Payer Address Payer Phone Subscriber Number Group Number Insured Name Patient Relationship to Insured Coverage Start Date Coverage End Date 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
--- OUTSIDE RECORDS SUMMARY | 2024-11-26 09:11 | XMS_ITS | Encounter Summary ---
Author Organization [employer] Address [address] [place] [address] 7 [place] [address] Care Team Providers Care Jboss Architect Name Role Phone Rosalind Cardoso Primary Care Provider [phone] Reason for Visit * Reason Onset Date Comments Appointment Request 10/13/2024 Encounter Details Date Type Department Care Team ([facility] st Contact Info) Description 10/13/2024 Telephone [facility] MEDICINE [address] [place] [address] Rosalind Cardoso FNP [address] [place] [address] Appointment Request Social History Tobacco Use Types Packs/Day Years [...] encounter Miscellaneous Notes * Telephone Encounter - Codi Flores - 10/13/2024 10:08 AM EDT Tc from pt requesting r/s 10/13 appt with Amira Ayoub. documented in this encounter Plan of Treatment Upcoming Encounters Date Type Department Care Team (Late st Contact Info) Description 11/26/2024 9:45 AM EDT Office Visit [facility] MEDICINE [address] [place] [address] Rosana Olvera MD [address] [place] [address] documented as of this encounter Visit Diagnoses Not on filedocumented in this encounter Additional Health Concerns Assessment Noted Time PHQ-9 Depression Total Score: 6 08/03/19 25 9:07 AM EST documented as of this encounter Care Teams Jboss Architect Relationship Specialty Start Date End Date Rosalind Cardoso FNP [address] [place] [address] PCP - General Family Medicine 04/28/21 documented as of this encounter
--- OUTSIDE RECORDS SUMMARY | 2024-11-26 09:11 | XMS_ITS | Encounter Summary ---
Author Organization [employer] Address [address] [facility] 7t [place] [address] Care Team Providers Care Gas Regulator Repairer Helper Name Role Phone Rosalind Cardoso Primary Care Provider [phone] Encounter Details Date Type Department Care Team (Late st Contact Info) Description 05/01/2024 Orders Only [facility] MEDICINE [address] [place] [address] Rosalind Cardoso FNP [address] [place] [address] Type 2 diabetes mellitus with stage 3 [...] Description 11/26/2024 9:45 AM EDT Office Visit [facility] MEDICINE [address] [place] [address] Rosana Olvera MD [address] [place] [address] documented as of this encounter Visit Diagnoses [...] as of this encounter Care Teams Gas Regulator Repairer Helper Relationship Specialty Start Date End Date Rosalind Cardoso FNP [address] [place] [address] PCP - General Family Medicine 04/28/21 documented as of this encounter
--- OUTSIDE RECORDS SUMMARY | 2024-11-26 09:11 | XMS_ITS | Encounter Summary ---
Author Organization [employer] Address [address] [place] [address] 7 [place] [address] Care Team Providers Care Freelance Court Reporter Name Role Phone Rosalind Cardoso Primary Care Provider [phone] Reason for Visit * Reason Comments Med Refill Encounter Details Date Type Department Care Team ([facility] Contact Info) Description 11/23/[address] [facility] CHC MED & PEDS [address] [place], [place] [phone] Rosalind Cardoso FNP [address] [place] [address] Social History Tobacco Use Types Packs/Day Years [...] * Telephone Encounter - TAMY Ram - 11/24/2024 3:39 PM EDT Holding lisinopril due to renal function. Please ask if she is able to get blood work completed at [facility] (she may be better candidate for home blood draw if possible). Continue to hold lisinopril untilwe know if kidney function has returned to her baseline. Thank you! documented in this encounter Plan of Treatment Upcoming Encounters Date Type Department Care Team (Late st Contact Info) Description 11/26/2024 9:45 AM EDT Office Visit [facility] MEDICINE [address] [place] [address] Rosana Olvera MD 230 [place] [address] documented as of this encounter Visit Diagnoses Not on filedocumented in this encounter Additional Health Concerns Assessment Noted Time PHQ-9 Depression Total Score: 6 08/03/19 25 9:07 AM EST documented as of this encounter Care Teams Freelance Court Reporter Relationship Specialty Start Date End Date Rosalind Cardoso FNP [address] [place] [address] PCP - General Family Medicine 04/28/21 documented as of this encounter
--- OUTSIDE RECORDS SUMMARY | 2024-11-26 09:11 | XMS_ITS | Encounter Summary ---
Author Organization [employer] Address [address] [facility] 7t [place] [address] Care Team Providers Care Network Operations Analyst Name Role Phone Rosalind Cardoso TAMY Primary Care Provider [phone] Encounter Details Date Type Department Care Team ([facility] st Contact Info) Description 05/23/2023 Abstract [facility] MEDICINE [address] [place], [place] [phone] Adela Pena Social History Tobacco Use Types [...] 9:45 AM EDT Office Visit [facility] MEDICINE [address] [place] [address] Rosana Olvera MD [address] [place] [address] documented as of this encounter Visit Diagnoses Not on filedocumented in this encounter Additional Health Concerns Assessment Noted Time PHQ-9 Depression Total Score: 0 12/26/19 23 1:09 PM EDT documented as of this encounter Care Teams Network Operations Analyst Relationship Specialty Start Date End Date Rosalind Cardoso FNP [address] [place] [address] PCP - General Family Medicine 04/28/21 documented as of this encounter
--- OUTSIDE RECORDS SUMMARY | 2024-11-26 09:11 | XMS_ITS | Encounter Summary ---
Author Organization [employer] Address [address] [place] [address] 7 [place] [address] Care Team Providers Care Breaker Up Name Role Phone Rosalind Cardoso Primary Care Provider [phone] Encounter Details Date Type Department Care Team ([facility] st Contact Info) Description 11/06/2024 Orders Only [facility] CHC MED & PEDS [address] [place], [place] [phone] Rosalind Cardoso FNP 505 [place] [address] Type 2 diabetes mellitus with stage 3 [...] Description 11/26/2024 9:45 AM EDT Office Visit [facility] MEDICINE [address] [place] [address] Rosana Olvera MD 230 [place] [address] documented as of this encounter Visit Diagnoses [...] documented as of this encounter Care Teams Breaker Up Relationship Specialty Start Date End Date Rosalind Cardoso FNP [address] [place] [address] PCP - General Family Medicine 04/28/21 documented as of this encounter
--- OUTSIDE RECORDS SUMMARY | 2024-11-26 09:11 | XMS_ITS | Encounter Summary ---
Author Organization [employer] Address [address] [facility] 7t [place] [address] Care Team Providers Care Bakery Chef Name Role Phone Rosalind Cardoso Primary Care Provider [phone] Encounter Details Date Type Department Care Team (Late st Contact Info) Description 06/12/2024 Orders Only [facility] MEDICINE [address] [place] [address] Rosalind Cardoso FNP [address] [place] [address] Type 2 diabetes mellitus with stage 3 [...] Description 11/26/2024 9:45 AM EDT Office Visit [facility] MEDICINE 230 [place], [place] [phone] Rosana Olvera MD 230 [place], [place] [phone] documented as of this encounter Procedures Procedure Name Priority Date/Time Associated Diagnosis Comments C-REACTIVE PROTEIN Routine 06/23/2024 10 :31 AM EST Type 2 diabetes mellitus with stage 3 chronic kidney disease, with long-term current use of insulin, unspecified whether stage 3a or 3b CKD ([facility]/HCC) Myalgia MAGNESIUM Routine 06/23/2024 10:31 AM EST 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 Co de Phone Number [facility] [address] [place] [address] [phone] * Magnesium (06/23/2024 10:31 AM EST) Magnesium 1.8 1.6 - 2.6 mg/dL [facility] Blood Venous blood specimen / Unknown 06/23/2024 10:31 AM EST 06/23/2024 10:31 AM EST us Rosalind Janae [facility] LAB BLOOD ORDERABLES Final Res ult Performing Organization Address [facility] Co de Phone Number [facility] [address] [place] [address] [phone] documented in this encounter Visit Diagnoses [...] documented as of this encounter Care Teams Bakery Chef Relationship Specialty Start Date End Date Rosalind Cardoso FNP [address] [place] [address] PCP - General Family Medicine 04/28/21 documented as of this encounter
--- OUTSIDE RECORDS SUMMARY | 2024-11-26 09:11 | XMS_ITS | Encounter Summary ---
Author Organization [employer] Address [address] [place] [address] 7 [place] [address] Care Team Providers Care Solar Development Engineer Name Role Phone Rosalind Cardoso Primary Care Provider [phone] Encounter Details Date Type Department Care Team ([facility] st Contact Info) Description 10/23/2024 Orders Only [facility] CHC MED & PEDS [address] [place], [place] [phone] Rosalind Cardoso FNP [address] [place] [address] Type 2 diabetes mellitus with stage 3 [...] Description 11/26/2024 9:45 AM EDT Office Visit [facility] MEDICINE [address] [place] [address] Rosana Olvera MD [address] [place] [address] documented as of this encounter Visit Diagnoses [...] documented as of this encounter Care Teams Solar Development Engineer Relationship Specialty Start Date End Date Rosalind Cardoso FNP [address] [place] [address] PCP - General Family Medicine 04/28/21 documented as of this encounter
--- OUTSIDE RECORDS SUMMARY | 2024-11-26 09:11 | XMS_ITS | Encounter Summary ---
Author Organization [employer] Address [address] [place] [address] 7 [place] [address] Care Team Providers Care Lay Out Carpenter Name Role Phone Rosalind Cardoso Primary Care Provider [phone] Encounter Details Date Type Department Care Team ([facility] st Contact Info) Description 09/11/2024 Orders Only [facility] CHC MED & PEDS [address] [place], [place] [phone] Rosalind Cardoso FNP [address] [place] [address] Type 2 diabetes mellitus with stage 3 [...] 9:45 AM EDT Office Visit [facility] MEDICINE [address] [place] [address] Rosana Olvera MD [address] [place] [address] documented as of this encounter Procedures Procedure [...] Protein 0.59(H) < or = 0.50 mg/dL [facility] Blood Venous blood specimen / Unknown 10/06/2024 10:27 AM EDT 10/06/2024 10:27 AM EDT Rosalind Cardoso RIGGING SLINGER LAB BLOOD ORDERABLES Final Res ult Performing Organization Address [facility]/ZIP Co de Phone Number [facility] [address] [place] [phone] * Magnesium (10/06/2024 10:27 AM EDT) Magnesium 2.0 1.6 - 2.6 mg/dL [facility] Blood Venous blood specimen / Unknown 10/06/2024 10:27 AM EDT 10/06/2024 10:27 AM EDT Rosalind Cardoso RIGGING SLINGER LAB BLOOD ORDERABLES Final Res ult Performing Organization Address City/[facility]/ZIP Co de Phone Number [facility] [address] [place] [address] [place] [phone] * (ABNORMAL) Comprehensive Metabolic Panel (10/06/2024 10:27 AM EDT) Sodium 134(L) 135 - 145 mmol/L [facility] Potassium 4.4 3.3 - 5.1 mmol/L [facility] Chloride 101 96 - 108 mmol/L [facility] Carbon Dioxide 24 22 - 29 mmol/L [facility] Anion Gap 13 12 - 20 [facility] Urea Nitrogen (BUN) 85(H) 9 - 16 mg/dL [facility] Creatinine, Serum 2.35(H) 0.5 - 1.4 mg/dL [facility] Estimated Glomerular Filt Rate 21 [facility] Comment:Chronic Kidney Disea se: Estimated GFR < 60 mL/min/1.01m0Wvexeh Kidney Disease: Estimated GFR < 15 mL/min/1.73m2 Glucose 298(H) 60 - 115 mg/dL [facility] Calcium 9.6 8.4 - 10.2 mg/dL [facility] Bilirubin, Total 0.3 0.0 - 1.0 mg/dL [facility] Aspartate Amino Transferase 15 5 - 31 U/L [facility] Alanine Aminotransferase 7 0 - 31 U/L [facility] Total Protein 6.9 6.5 - 8.0 g/dL [facility] Albumin Level 3.6 3.5 - 5.0 g/dL [facility] Alkaline Phosphatase 91 39 - 117 U/L [facility] Blood Venous blood specimen / Unknown 10/06/2024 10:27 AM EDT 10/06/2024 10:27 AM EDT us Rosalind Cardoso RIGGING SLINGER LAB BLOOD ORDERABLES Final Res ult [facility] [address] [place] [address] [phone] * (ABNORMAL) Sed Rate by Modified Westergren (10/02/2024 3:12 PM EDT) Erythrocyte Sedimentation Rate 53(H) 0 - 20 MM/HR [facility] Comment:Patients with polycy themia and many hemoglobin abnormalitiesmay have depressed sed rates whereas patients with anemiamay have elevated sed rates. Blood Venous blood specimen / Unknown 10/02/2024 3:12 PM EDT 10/02/2024 3:12 PM EDT us Rosalind MORELOS LAB BLOOD ORDERABLES Final Res ult [facility] [address] [place] [address] [phone] documented in this encounter Visit Diagnoses [...] documented as of this encounter Care Teams Lay Out Carpenter Relationship Specialty Start Date End Date Rosalind Cardoso FNP [address] [place] [address] PCP - General Family Medicine 04/28/21 documented as of this encounter
--- OUTSIDE RECORDS SUMMARY | 2024-11-26 09:11 | XMS_ITS | Encounter Summary ---
Author Organization [employer] Address [address] [place] [address] 7 [place] [address] Care Team Providers Care Chief Executive Officer Name Role Phone Rosalind Cardoso Primary Care Provider [phone] Encounter Details Date Type Department Care Team ([facility] st Contact Info) Description 07/17/2024 Orders Only [facility] CHC MED & PEDS [address] [place], [place] [phone] Rosalind Cardoso FNP [address] [place] [address] Type 2 diabetes mellitus with stage 3 [...] Office Visit [facility] MEDICINE [address] [place], [place] [phone] Rosana Olvera MD [address] [place] [address] documented as of this encounter Procedures Procedure Name Priority Date/Time Associated Diagnosis Comments SED RATE BY MODIFIED GENTRYERGREN Routine 08/04/2024 10:17 AM EST Type 2 [...] stage 3a or 3b CKD ([facility]/HCC) Primary hypertension Stage 3b chronic kidney disease ([facility]/HCC) 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 Blood Venous blood specimen / Unknown 08/04/2024 10:17 AM EST 08/04/2024 10:17 AM EST Rosalind Cardoso RETAIL ADVERTISING SALES MANAGER LAB BLOOD ORDERABLES Final Res ult Performing Organization Address [facility]/ZIP Co de Phone Number [facility] [address] [place] [phone] * Magnesium (08/04/2024 10:17 AM EST) [facility] Magnesium 2.3 1.6 - 2.6 mg/dL [facility] Blood Venous blood specimen / Unknown 08/04/2024 10:17 AM EST 08/04/2024 10:17 AM EST Rosalind Cardoso RETAIL ADVERTISING SALES MANAGER LAB BLOOD ORDERABLES Final Res ult Performing Organization Address [facility]/ZIP Co de Phone Number [facility] [address] [place] [address] [phone] * (ABNORMAL) Comprehensive Metabolic Panel (08/04/2024 10:17 AM EST) [facility] Sodium 134(L) 135 - 145 mmol/L [facility] Potassium 4.1 3.3 - 5.1 mmol/L [facility] Chloride 100 96 - 108 mmol/L [facility] Carbon Dioxide 27 22 - 29 mmol/L [facility] Anion Gap 11(L) 12 - 20 [facility] Urea Nitrogen (BUN) 50(H) 9 - 16 mg/dL [facility] Creatinine, Serum 1.56(H) 0.5 - 1.4 mg/dL [facility] Estimated Glomerular Filt Rate 34 [facility] Comment:Chronic Kidney Disea se: Estimated GFR < 60 mL/min/1.84i9Vrqalf Kidney Disease: Estimated GFR < 15 mL/min/1.73m2 Glucose 265(H) 60 - 115 mg/dL [facility] Calcium 9.1 8.4 - 10.2 mg/dL [facility] Bilirubin, Total 0.2 0.0 - 1.0 mg/dL [facility] Aspartate Amino Transferase 16 5 - 31 U/L [facility] Alanine Aminotransferase <6 0 - 31 U/L [facility] Total Protein 7.6 6.5 - 8.0 g/dL [facility] Albumin Level 3.6 3.5 - 5.0 g/dL [facility] Alkaline Phosphatase 101 39 - 117 U/L [facility] Blood Venous blood specimen / Unknown 08/04/2024 10:17 AM EST 08/04/2024 10:17 AM EST us Rosalind MORELOS LAB BLOOD ORDERABLES Final Res ult [facility] [address] [place] [phone] [phone] documented in this encounter Visit Diagnoses Diagnosis Type 2 diabetes mellitus with stage 3 chronic kidney disease, with long-term current use of insulin, unspecified whether stage 3a or 3b CKD (CMS/HCC) Primary hypertension Unspecified essential hypertension Stage 3b chronic kidney disease ([facility]/HCC) 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
--- OUTSIDE RECORDS SUMMARY | 2024-11-26 09:11 | XMS_ITS | Encounter Summary ---
Author Organization [employer] Address [address] [place] [address] [address] [place] [address] Care Team Providers Care Nursing Services Manager Name Role Phone Rosalind Cardoso Primary Care Provider Reason for Visit * Reason Comments Med Refill Encounter Details Date Type Department Care Team (Late Contact Info) Description 07/10/2022 Refill [facility] CHC MED & PEDS [address] [place], [place] [phone] Rosalind Cardoso FNP [address] [place] [address] Primary hypertension; Type 2 diabetes mellitus with other specified complication, unspecified whether sheriff detective insulin use ([facility]) Social History Tobacco Use Types Packs/Day Years [...] Description 11/26/2024 9:45 AM EDT Office Visit [facility] MEDICINE [address] [place] [address] Rosana Olvera MD [address] [place] [address] documented as of this encounter Visit Diagnoses Diagnosis Primary hypertension Unspecified essential hypertension Type 2 diabetes mellitus with other specified complication, unspecified whether custodial insulin use ([facility]) documented in this encounter Care Teams Nursing Services Manager Relationship Specialty Start Date End Date Rosalind Cardoso FNP [address] [place] [address] PCP - General Family Medicine 04/28/21 documented as of this encounter
--- OUTSIDE RECORDS SUMMARY | 2024-11-26 09:11 | XMS_ITS | Encounter Summary ---
Author Organization [employer] Address [address] [place] [address] 7t [place] [address] Care Team Providers Care Petroleum Blending Plant Operator Name Role Phone Rosalind Cardoso Primary Care Provider [phone] Reason for Visit * Reason Comments Med Refill Encounter Details Date Type Department Care Team ([facility] Contact Info) Description 05/28/2023 Refill [facility] CHC MED & PEDS [address] [place], [place] [phone] Rosalind Cardoso FNP [address] [place] [address] Other chronic osteomyelitis of left foot (CMS/HCC); [...] Description 11/26/2024 9:45 AM EDT Office Visit [facility] MEDICINE [address] [place] [address] Rosana Olvera MD [address] [place] [address] documented as of this encounter Visit Diagnoses Diagnosis Other chronic osteomyelitis of left foot (CMS/HCC) Low back pain at multiple sites documented in this encounter Additional Health Concerns Assessment Noted Time PHQ-9 Depression Total Score: 0 12/26/19 23 1:09 PM EDT documented as of this encounter Care Teams Petroleum Blending Plant Operator Relationship Specialty Start Date End Date Rosalind Cardoso FNP [address] [place] [address] PCP - General Family Medicine 04/28/21 documented as of this encounter
--- OUTSIDE RECORDS SUMMARY | 2024-11-26 09:11 | XMS_ITS | Encounter Summary ---
Author Organization [employer] Address [address] [place] [address] 7 [place] [address] Care Team Providers Care Affirmative Action Officer Name Role Phone Rosalind Cardoso Primary Care Provider [phone] Encounter Details Date Type Department Care Team ([facility] st Contact Info) Description 08/28/2024 Orders Only [facility] CHC MED & PEDS [address] [place], [place] [phone] Rosalind Cardoso FNP [address] [place] [address] Type 2 diabetes mellitus with stage 3 [...] 9:45 AM EDT Office Visit [facility] MEDICINE [address] [place] [address] Rosana Olvera MD [address] [place] [address] documented as of this encounter Visit Diagnoses [...] documented as of this encounter Care Teams Affirmative Action Officer Relationship Specialty Start Date End Date Rosalind Cardoso FNP [address] [place] [address] PCP - General Family Medicine 04/28/21 documented as of this encounter
--- OUTSIDE RECORDS SUMMARY | 2024-11-26 09:11 | XMS_ITS | Encounter Summary ---
Author Organization [employer] Address [address] [place] [address] [address], [place] [address] Care Team Providers Care Assembler Metal Furniture Name Role Phone Rosalind Cardoso Primary Care Provider Encounter Details Date Type Department Care Team (Late Contact Info) Description 06/22/2022 Telephone [facility] MEDICINE [address] [place] [phone] Emily Matthews RN Social History Tobacco Use [...] 11/26/2024 9:45 AM EDT Office Visit [facility] MEDICINE [address] [place] [address] Rosana Olvera MD [address] [place] [address] documented as of this encounter Visit Diagnoses Not on filedocumented in this encounter Care Teams Assembler Metal Furniture Relationship Specialty Start Date End Date Rosalind Cardoso FNP [address] [place] [address] PCP - General Family Medicine 04/28/21 documented as of this encounter
--- OUTSIDE RECORDS SUMMARY | 2024-11-26 09:11 | XMS_ITS | Encounter Summary ---
Author Organization [employer] Address [address] [place] [address] 7 [place] [address] Care Team Providers Care Account Group Supervisor Name Role Phone Rosalind Cardoso Primary Care Provider [phone] Encounter Details Date Type Department Care Team ([facility] st Contact Info) Description 05/08/2024 Orders Only [facility] CHC MED & PEDS [address] [place], [place] [phone] Rosalind Cardoso FNP [address] [place] [address] Type 2 diabetes mellitus with stage 3 [...] EDT Office Visit [facility] MEDICINE [address] [place] [address] Rosana Olvera MD [address] [place] [address] documented as of this encounter Visit Diagnoses [...] documented as of this encounter Care Teams Account Group Supervisor Relationship Specialty Start Date End Date Rosalind Cardoso FNP [address] [place] [address] PCP - General Family Medicine 04/28/21 documented as of this encounter
--- OUTSIDE RECORDS SUMMARY | 2024-11-26 09:11 | XMS_ITS | Encounter Summary ---
Author Organization [employer] Address [address] [place] [address] 7 [place] [address] Care Team Providers Care Boots And Shoes Supervisor Name Role Phone Rosalind Cardoso Primary Care Provider [phone] Encounter Details Date Type Department Care Team ([facility] st Contact Info) Description 10/09/2024 Orders Only [facility] CHC MED & PEDS [address] [place], [place] [phone] Rosalind Cardoso FNP [address] [place] [address] Type 2 diabetes mellitus with stage 3 [...] 9:45 AM EDT Office Visit [facility] MEDICINE [address] [place] [address] Rosana Olvera MD [address] [place] [address] documented as of this encounter Visit Diagnoses [...] documented as of this encounter Care Teams Boots And Shoes Supervisor Relationship Specialty Start Date End Date Rosalind Cardoso FNP [address] [place] [address] PCP - General Family Medicine 04/28/21 documented as of this encounter
--- OUTSIDE RECORDS SUMMARY | 2024-11-26 09:11 | XMS_ITS | Encounter Summary ---
Author Organization [employer] Address [address] [place] [address] 7 [place] [address] Care Team Providers Care Car Rental Clerk Name Role Phone Rosalind Cardoso Primary Care Provider [phone] Encounter Details Date Type Department Care Team ([facility] Contact Info) Description 11/20/2024 Orders Only [facility] MED & PEDS [address] [place], [place] [phone] Rosalind Cardoso FNP [address] [place] [address] Type 2 diabetes mellitus with stage 3 [...] Description 11/26/2024 9:45 AM EDT Office Visit [facility] MEDICINE [address] [place] [address] Rosana Olvera MD [address] [place] [address] documented as of this encounter Visit Diagnoses [...] documented as of this encounter Care Teams Car Rental Clerk Relationship Specialty Start Date End Date Rosalind Cardoso FNP [address] [place] [address] PCP - General Family Medicine 04/28/21 documented as of this encounter
--- OUTSIDE RECORDS SUMMARY | 2024-11-26 09:11 | XMS_ITS | Encounter Summary ---
Author Organization [employer] Address [address] [place] [address] 7 [place] [address] Care Team Providers Care Erp Business Analyst Name Role Phone Rosalind Cardoso Primary Care Provider [phone] Reason for Visit * Reason Onset Date Comments Nurse Triage 06/08/2024 Encounter Details Date Type Department Care Team ([facility] st Contact Info) Description 06/08/2024 Telephone [facility] MEDICINE [address] [place] [address] Rosalind Cardoso FNP [address] [place] [address] Nurse Triage Social History Tobacco Use Types [...] nereyda. Pt is advised to come to [facility] today to be seen by provider but, unable to obtain transportation. Pt will come tomorrow to [facility]. Hours 830am - 800pm given. Insurance is [...] 11/26/2024 9:45 AM EDT Office Visit [facility] MEDICINE [address] [place] [address] Rosana Olvera MD [address] [place], [place] [phone] documented as of this encounter Visit Diagnoses Diagnosis Employs prosthetic leg documented in this encounter Additional Health Concerns Assessment Noted Time PHQ-9 Depression Total Score: 0 12/26/19 23 1:09 PM EDT documented as of this encounter Care Teams Erp Business Analyst Relationship Specialty Start Date End Date Rosalind Cardoso FNP [address] [place] [address] PCP - General Family Medicine 04/28/21 documented as of this encounter
--- OUTSIDE RECORDS SUMMARY | 2024-11-26 09:11 | XMS_ITS | Encounter Summary ---
Author Organization [employer] Address [address] [place] [address] 7 [place] [address] Care Team Providers Care Edge Beader Name Role Phone Rosalind Cardoso Primary Care Provider [phone] Encounter Details Date Type Department Care Team ([facility] st Contact Info) Description 05/22/2024 Orders Only [facility] MED & PEDS [address] [place], [place] [phone] Rosalind Cardoso FNP [address] [place] [address] Type 2 diabetes mellitus with stage 3 [...] mellitus with other specified complication, unspecified whether intermodal dispatcher insulin use (CMS/HCC); Fibromyalgia Social History Tobacco Use Types Packs/Day Years Used Date Smoking Tobacco: Never Smokeless Tobacco: Never Alcohol Use Standard Drinks/Week Comments Never 0 (1 standard drink = 0.6 oz pur e alcohol) Depression Answer Date Recorded Patient Health Questionnaire-9 Score 0 12/25/2022 Housing Stability Answer Date Recorded What is your housing situation today? I have elbert sing 04/25/[address] you li [...] 9:45 AM EDT Office Visit [facility] MEDICINE [address] [place] [address] Rosana Olvera MD [address] [place] [address] documented as of this encounter Visit Diagnoses [...] mellitus with other specified complication, unspecified whether intermodal dispatcher insulin use (CMS/[facility]) Fibromyalgia Unspecified myalgia and myositis documented in this encounter Additional Health Concerns Assessment Noted Time PHQ-9 Depression Total Score: 0 12/26/19 23 1:09 PM EDT documented as of this encounter Care Teams Edge Beader Relationship Specialty Start Date End Date Rosalind Cardoso FNP [address] [place] [address] PCP - General Family Medicine 04/28/21 documented as of this encounter
--- OUTSIDE RECORDS SUMMARY | 2024-11-26 09:11 | XMS_ITS | Encounter Summary ---
Author Organization [employer] Address [address] [facility] 7t [place] [address] Care Team Providers Care Light Fixture Servicer Name Role Phone Rosalind Cardoso Primary Care Provider [phone] Encounter Details Date Type Department Care Team (Late st Contact Info) Description 05/15/2024 Orders Only [facility]INE [address] [place] [address] Rosalind Cardoso FNP [address] [place] [address] Type 2 diabetes mellitus with stage 3 [...] 9:45 AM EDT Office Visit [facility] [address] [place] [phone] Rosana Olvera MD [address] [place] [address] documented as of this encounter Visit Diagnoses [...] documented as of this encounter Care Teams Light Fixture Servicer Relationship Specialty Start Date End Date Rosalind Cardoso FNP [address] [place] [address] PCP - General Family Medicine 04/28/21 documented as of this encounter
--- OUTSIDE RECORDS SUMMARY | 2024-11-26 09:12 | XMS_ITS | Clinical Summary ---
Author Organization [address] [place] [address] Address [address] [place] [address] Phone Care Team Providers Care Bit Gatherer Name Role Phone Physician, Pcp Unknown Primary [...] Diagnosed Date DM2 (diabetes mellitus, type 2) ([facility] V24, CM /[facility] V28) 10/22/2022 Hx of BKA, left ([facility] V24, [facility] V28) 10/22 Hyperlipidemia 10/22/2022 Hypertension 10/22/2022 PAD (peripheral artery disease) ([facility] V24) Vitamin D deficiency 10/22/2022 Encounters Date Type Department Care Team Description 10/27/2024 12:00 PM EDT Ancillary Procedure [facility] [address] [facility] [address] [place] [phone] PAD (peripheral artery disease) ([facility] V24) 10/05/2024 3:00 PM EDT Office Visit Vascular Surgery - [facility] [address] [facility] [address] [place] [phone] Nu Holt PA PAD (peripheral artery disease) ([facility] V24) (Primary Dx) from Last 3 Months Surgical History Surgery Date Site/Laterality Comments OTHER SURGICAL HISTORY 09/01/2022 Left PROCEDURE: NH AMPUTATION LEG THROUGH TIBIA&FIBULA Social History Tobacco [...] Care Team (Late st Contact Info) Description 01/06/2025 1:00 PM EDT Office Visit Vascular Surgery - [place] [address] [place] [address] Oral[facility]orden MD [facility] [address] [place] [address] 01/19/2025 9:15 AM EDT Office Visit Orthopedic Surgery - [facility] [address] [facility] [address] [place] [address] Raheel Quijano, DPM 175 [facility] [address] [place] [address] Health Maintenance Due Date Last Done Comments [...] Vaccines (1 of 2) 2013 RSV Immunization Adult Patients (1 - Risk 60-74 years 1-dose series) 2023 Colorectal Cancer Screening: Colonoscopy 08/02/2023 Hepatitis C Screening 08/02/2023 Medicare Annual Wellness Visit 08/02/2023 Social Influencers of Health Screening 08/02/2023 Diabetes: Annual Urine Albumin-Creatinine Ratio (uACR) 08/21/2023 COVID-19 Vaccine ( season) 2024 Diabetes: Blood Sugar Control Test (HGBA1C) 01/31/2025 08/03/2024 Influenza Vaccine (Season Ended) 2025 Depression Screening 08/03/2025 08/03/2024 Diabetes: Annual GFR (Glomerular Filtration Rate) 10/06/2025 10/06/2024, 10/02/2024, 08/04/2024, Additional history exists Hypertension/CHF/CAD Annual BMP Blood Test 10/06/2025 10/06/2024, 10/02/2024, 08/04/2024, Additional history exists Cholesterol Screening (Lipid Panel) [...] Procedure Name Priority Date/Time Associated Diagnosis Comments VAS US DUPLEX LOWER EXT ARTERIES BILAT WITH MANUEL Routine 10/27/2024 1:17 PM EDT PAD (peripheral artery disease) (CMS/[facility] V24) from Last 3 Months Results * Vascular US duplex lower extremity arteries bilateral with MANUEL (10/27/2024 1:17 PM EDT) Left HELP DESK SUPPORT prox sys PSV 104 cm/s CV V[facility] LAB Left popliteal dist sys PSV 21 cm/s CV [facility] Left popliteal prox sys PSV 16 cm/s CV [facility] Left super femoral dist sys PSV 54 cm/s CV V[facility] LAB Left super femoral mid sys PSV 241 cm/s CV VAS LAB Left super femoral prox sys PSV 56 cm/s CV VAS LAB Left profunda sys PSV 93 cm/s CV VAS LAB Right HELP DESK SUPPORT prox sys PSV 122 cm/s CV VAS LAB Right AT dist sys PSV 60 cm/s CV VAS LAB Right AT mid sys PSV 67 cm/s CV VAS LAB Right AT prox sys PSV 99 cm/s CV VAS LAB Right popliteal dist sys PSV 104 cm/s CV VAS LAB Right popliteal prox sys PSV 62 cm/s CV VAS LAB Right PT dist sys PSV 17 cm/s CV VAS LAB Right PT mid sys PSV 0 cm/s CV VAS LAB Right PT prox sys PSV 0 cm/s CV VAS LAB Right super femoral dist sys PSV 57 cm/s CV VAS LAB Right super femoral mid sys PSV 151 cm/s CV VAS LAB Right super femoral prox sys PSV 375 cm/s CV VAS LAB Right profunda sys PSV 165 cm/s CV VAS LAB Right prox peroneal sys PSV 0 cm/s CV V[facility] LAB Right arm BP 161 mmHg CV [facility] Left arm BP 163 mmHg CV [facility] Right posterior tibial 79 mmHg CV [facility] Right Dorsalis Pedis 130 mmHg CV [facility] Right MANUEL 0.80 CV VAS LAB Anatomical Region Laterality Modality Vascular, Abdomen Ultrasound Narrative 10/29/2024 9:33 AM EDT Right Right proximal SFA has 50 to 99% stenosis. ??The flow distally is blunted and has monomorphic appearance. ??SFA arterial wall is significantly calcified. Two-vessel runoff in the right calf. ??The right peroneal artery has no flow. Right ankle pressure and ankle-brachial index are mildly reduced with right MANUEL 0.8. ??Suspect right MANUEL over estimated due to arterial calcification. Left Status post left BKA. Left SFA severe stenosis with very diminished flow in the proximal and mid segment. ??Left mid SFA has 50 to 99% stenosis. Left proximal popliteal artery has minimal flow with a collateral branch. No prior study for comparison. Right MANUEL Right BP= 161/76 Left MANUEL Patient is status post below knee amputation. Left BP= 163/69 Right Lower Arterial Duplex The distal external iliac artery has triphasic flow. The common femoral artery has triphasic flow. The profunda femoris artery has biphasic flow. The superficial femoral artery has monophasic flow. The proximal superficial femoral artery is turbulent. The popliteal artery has monophasic flow. The anterior tibial artery has monophasic flow. The proximal posterior tibial artery has absent flow. The mid posterior tibial artery has absent flow. The distal posterior tibial artery has monophasic flow. The mid peroneal artery has absent flow. Left Lower Arterial Duplex The common femoral artery has monophasic flow. The profunda femoris artery has biphasic flow. The superficial femoral artery has monophasic flow. The popliteal artery has monophasic flow. Armoring Machine Operator Details A edmonds scale, color and doppler analysis ultrasound was performed. During the study longitudinal views were obtained. Pulsed wave doppler was performed. us Nu ENCISO CV VASCULAR PROCEDURES Final Result from Last 3 Months Insurance [employer] MEDICARE Member Subscriber Plan / Payer (Ef fective 2016-Present) Name:Mitra Parish Relation to Subscriber:Self Name:Mitra Parish Payer ID:[id number] Group ID:[id number] Type:Not on file Address: [place] [address] [address] [id number] Advance Directives Documents on File Type Date Recorded Patient Social Media Sr Strategy Manager Expl anation Health Care Decision (hx) 09/04/2022 AD REINOSO DIRECTIVE Health Care Decision (hx) 09/04/2022 AD REINOSO DIRECTIVE Care Teams Bit Gatherer Relationship Specialty Start Date End Date Physician, Pcp Unknown PCP - General 07/27/24
--- OUTSIDE RECORDS SUMMARY | 2024-11-26 09:12 | XMS_ITS | Encounter Summary ---
Author Organization [employer] Address [address] [place] [address] 7 [place] [address] Care Team Providers Care Training Engineer Name Role Phone Rosalind Cardoso Primary Care Provider [phone] Reason for Visit * Reason Onset Date Comments Request For Order(s) 07/30/2023 Encounter Details Date Type Department Care Team ([facility] Contact Info) Description 07/30/2023 Telephone [facility] MED & PEDS [address] [place] [address] Rosalind Cardoso FNP [address] [place] [address] Request For Order(s) Social History Tobacco Use [...] 4:26 PM EST Tc from michelle with [facility] core requesting updated PT orders due to pt complaining of hip and back pain. Will also need OT orders for pain in the hands. Please fax to [phone] (attention: michelle) documented in this encounter Plan of Treatment Upcoming Encounters Date Type Department Care Team (Late st Contact Info) Description 11/26/2024 9:45 AM EDT Office Visit [facility] MEDICINE [address] [place] [address] Rosana Olvera MD [address] [place] [address] documented as of this encounter Visit Diagnoses Diagnosis Pain in both hands- Primary Back pain, unspecified back location, unspecified back pain laterality, unspecified chronicity Hip pain, unspecified laterality documented in this encounter Additional Health Concerns Assessment Noted Time PHQ-9 Depression Total Score: 0 12/26/19 1:09 PM EDT documented as of this encounter Care Teams Training Engineer Relationship Specialty Start Date End Date Rosalind Cardoso FNP [address] [place] [address] PCP - General Family Medicine 04/28/21 documented as of this encounter
--- OUTSIDE RECORDS SUMMARY | 2024-11-26 09:12 | XMS_ITS | Encounter Summary ---
Author Organization [employer] Address [address] [facility] 7t [place] [address] Care Team Providers Care Director Of Corporate Sponsorships Name Role Phone Rosalind Cardoso Primary Care Provider [phone] Encounter Details Date Type Department Care Team (Late st Contact Info) Description 10/18/2023 Orders Only [facility] MEDICINE [address] [place] [address] Rosalind Cardoso FNP [address] [place] [address] Type 2 diabetes mellitus with stage 3 [...] 9:45 AM EDT Office Visit [facility] MEDICINE [address] [place] [address] Rosana Olvera MD 230 [place], [place] [phone] documented as of this encounter Procedures Procedure Name Priority Date/Time Associated Diagnosis Comments CBC WITH AUTO DIFFERENTIAL Routine 10/25/2023 1:09 PM EDT Type 2 diabetes mellitus with stage 3 chronic kidney disease, with long-term current use of insulin, unspecified whether stage 3a or 3b CKD ([facility]) Myalgia C-REACTIVE PROTEIN Routine 10/25/2023 1: 09 [...] (ABNORMAL) C-reactive Protein (10/25/2023 1:09 PM EDT) Pathologist [facility] C Reactive Protein 1.49(H) < or = 0.50 mg/dL [facility] Blood Venous blood specimen / Unknown 10/25/2023 1:09 PM EDT 10/25/2023 1:09 PM EDT Rosalind Cardoso TABULATING CLERK LAB BLOOD ORDERABLES Final Res ult Performing Organization Address [facility]/ZIP Co de Phone Number [facility] [address] [place] [phone] * Magnesium (10/25/2023 1:09 PM EDT) [facility] Magnesium 2.1 1.6 - 2.6 mg/dL [facility] Blood Venous blood specimen / Unknown 10/25/2023 1:09 PM EDT 10/25/2023 1:09 PM EDT Rosalind Cardoso [facility] LAB BLOOD ORDERABLES Final Res ult Performing Organization Address [facility] Co de Phone Number [facility] [address] [place] [phone] * (ABNORMAL) Comprehensive Metabolic Panel (10/25/2023 1:09 PM EDT) Pathologist [facility] Sodium 143 135 - 145 mmol/L [facility] Potassium 4.1 3.3 - 5.1 mmol/L [facility] Chloride 104 96 - 108 mmol/L [facility] Carbon Dioxide 31(H) 22 - 29 mmol/L [facility] Anion Gap 12 12 - 20 [facility] Urea Nitrogen (BUN) 27(H) 9 - 16 mg/dL [facility] Creatinine, Serum 1.20 0.5 - 1.4 mg/dL [facility] Estimated Glomerular Filt Rate 46 [facility] Comment:NOTE: For -Am erican individuals, multiply the result by 1.210.Chronic Kidney Disease: Estimated GFR < 60 mL/min/[id number] Kidney Disease: Estimated GFR < 15 mL/min/1.73m2 Glucose 223(H) 60 - 115 mg/dL [facility] Calcium 9.4 8.4 - 10.2 mg/dL [facility] Bilirubin, Total 0.3 0.0 - 1.0 mg/dL [facility] Aspartate Amino Transferase 20 5 - 31 U/L [facility] Alanine Aminotransferase 34(H) 0 - 31 U/L [facility] Total Protein 6.6 6.5 - 8.0 g/dL [facility] Albumin Level 3.2(L) 3.5 - 5.0 g/dL [facility] Alkaline Phosphatase 166(H) 39 - 117 U/L [facility] Blood Venous blood specimen / Unknown 10/25/2023 1:09 PM EDT 10/25/2023 1:09 PM EDT us Rosalind Cardoso [facility] LAB BLOOD ORDERABLES Final Res ult [facility] [address] [place] [phone] * (ABNORMAL) CBC auto differential (10/25/2023 1:09 PM EDT) White Blood Count 9.0 4.8 - 10.8 X10*3/uL [facility] Red Blood Count 4.91 4.20 - 5.50 X10*6/uL [facility] Hemoglobin 9.5(L) 12.0 - 16.0 g/dl [facility] Hematocrit 32.4(L) 37.0 - 47.0 % [facility] Mean Corpuscular Volume 66.0(L) 80.0 - 98.0 fL [facility] Mean Corpuscular Hemoglobin 19.3(L) 27.0 - 33.0 pg [facility] Mean Corpuscular HGB Conc 29.3(L) 31.0 - 35.0 g/dl [facility] Red Cell Distribution Width 17.2(H) 11.0 - 16.0 % [facility] Platelet Count 442(H) 160 - 400 X10*3/uL [facility] Mean Platelet Volume 11.3 9.4 - 12.3 fL [facility] Neutrophils Percent Auto 60.9 45 - 73 % [facility] Imm Gran Pct Auto 0.4 0.0 - 0.4 % [facility] Lymphocytes Percent Auto 25.2 20 - 40 % [facility] Monocytes Percent Auto 8.7 2 - 11 % [facility] Eosinophils Percent Auto 4.1(H) 0 - 4 % [facility] Basophils Percent Auto 0.7 0 - 2 % [facility] NRBC Pct Auto 0.0 0.0 - 0.2 /100WBC [facility] Neutrophils Absolute Auto 5.5 2.0 - 8.3 x10*3/uL [facility] Imm Gran Abs Auto 0.04(H) 0.00 - 0.03 X10*3/uL [facility] Lymphocytes Absolute Auto 2.3 1.2 - 4.9 X10*3/uL [facility] Monocytes Absolute Auto 0.8 0.1 - 1.2 X10*3/uL [facility] Eosinophils Absolute Auto 0.4 0.0 - 0.4 X10*3/uL [facility] Basophils Absolute Auto 0.1 0.0 - 0.2 X10*3/uL [facility] NRBC Abs Auto 0.000 0.0 - 0.012 X10*3/uL [facility] Blood Venous blood specimen / Unknown 10/25/2023 1:09 PM EDT 10/25/2023 1:09 PM EDT us Rosalind Cardoso TABULATING CLERK LAB BLOOD ORDERABLES Final Res ult [facility] [address] [place] [phone] documented in this encounter Visit Diagnoses Diagnosis Type 2 diabetes mellitus with stage 3 chronic kidney disease, with long-term current use of insulin, unspecified whether stage 3a or 3b CKD ([facility]/HCC) Myalgia Unspecified myalgia and myositis documented in this encounter Additional Health Concerns Assessment Noted Time PHQ-9 Depression Total Score: 0 12/26/19 23 1:09 PM EDT documented as of this encounter Care Teams Director Of Corporate Sponsorships Relationship Specialty Start Date End Date Rosalind Cardoso FNP [address] [place] [address] PCP - General Family Medicine 04/28/21 documented as of this encounter
--- OUTSIDE RECORDS SUMMARY | 2024-11-26 09:12 | XMS_ITS | Encounter Summary ---
Author Organization [employer] Address [address] [place] [address] 7t [place] [address] Care Team Providers Care Director Music Name Role Phone Rosalind Cardoso Primary Care Provider [phone] Reason for Visit * Reason Onset Date Comments Results 10/29/2023 Encounter Details Date Type Department Care Team ([facility] st Contact Info) Description 10/29/2023 Telephone [facility] MEDICINE [address] [place] [address] Rosalind Cardoso FNP [address] [place] [address] Results Social History Tobacco Use Types Packs/Day [...] 9:45 AM EDT Office Visit [facility] MEDICINE [address] [place] [address] Rosana Olvera MD [address] [place] [address] documented as of this encounter Visit Diagnoses Not on filedocumented in this encounter Additional Health Concerns Assessment Noted Time PHQ-9 Depression Total Score: 0 12/26/19 1:09 PM EDT documented as of this encounter Care Teams Director Music Relationship Specialty Start Date End Date Rosalind Cardoso FNP [address] [place] [address] PCP - General Family Medicine 04/28/21 documented as of this encounter
--- OUTSIDE RECORDS SUMMARY | 2024-11-26 09:12 | XMS_ITS | Encounter Summary ---
Author Organization [employer] Address [address] [place] [address] 7t [place] [address] Care Team Providers Care Body Shop Floorperson Name Role Phone Rosalind Cardoso Primary Care Provider [phone] Reason for Visit * Reason Onset Date Comments Results 10/25/2023 Encounter Details Date Type Department Care Team ([facility] st Contact Info) Description 10/25/2023 Telephone [facility] MEDICINE [address] [place] [address] Rosalind Cardoso FNP [address] [place] [address] Results Social History Tobacco Use Types Packs/Day [...] agrees with plan. * Telephone Encounter - TAYM Ram - 10/30/2023 8:52 AM EDT H/H 9.5/32.4. Inflammatory markers have elevated compared to last checked, as well as some of proteins associated with liver inflammation. Magnesium WNL. Please triage for any symptoms. Thank you! * Telephone Encounter - Arablela Rosa RN - 10/28/2023 9:10 AM EDT See message below. RN will forward to ordering provider PCP Rosalind MORELOS to review and advise [facility] team nurses. TC from pt requesting call back regarding Results. Type of results: Labs Date when done: 10/24 Facility: [facility] * Telephone Encounter - Bahman Hutchinson - 10/25/2023 3:16 PM EDT TC from pt requesting call back regarding Results. Type of results: Labs Date when done: 4/19 Facility: [facility] documented in this encounter Plan of Treatment Upcoming Encounters Date Type Department Care Team (Late st Contact Info) Description 11/26/2024 9:45 AM EDT Office Visit [facility] MEDICINE [address] [place] [address] Rosana Olvera MD [address] [place], [place] [phone] documented as of this encounter Visit Diagnoses Not on filedocumented in this encounter Additional Health Concerns Assessment Noted Time PHQ-9 Depression Total Score: 0 12/26/19 23 1:09 PM EDT documented as of this encounter Care Teams Body Shop Floorperson Relationship Specialty Start Date End Date Rosalind Cardoso FNP [address] [place] [address] PCP - General Family Medicine 04/28/21 documented as of this encounter
--- OUTSIDE RECORDS SUMMARY | 2024-11-26 09:12 | XMS_ITS | Encounter Summary ---
Author Organization [employer] Address [address] [facility] 7t [place] [address] Care Team Providers Care Podiatrist Name Role Phone Rosalind Cardoso Primary Care Provider [phone] Encounter Details Date Type Department Care Team ([facility] st Contact Info) Description 10/29/2023 Telephone [facility] MEDICINE [address] [place] [address] Rosalind Cardoso FNP [address] [place] [address] Social History Tobacco Use Types Packs/Day Years [...] 11/26/2024 9:45 AM EDT Office Visit [facility] MEDICINE [address] [place] [address] Rosana Olvera MD [address] [place] [address] documented as of this encounter Visit Diagnoses Not on filedocumented in this encounter Additional Health Concerns Assessment Noted Time PHQ-9 Depression Total Score: 0 12/26/19 23 1:09 PM EDT documented as of this encounter Care Teams Podiatrist Relationship Specialty Start Date End Date Rosalind Cardoso FNP [address] [place] [address] PCP - General Family Medicine 04/28/21 documented as of this encounter
--- OUTSIDE RECORDS SUMMARY | 2024-11-26 09:12 | XMS_ITS | Encounter Summary ---
Author Organization [employer] Address [address] [facility] 7t [place] [address] Care Team Providers Care Business Services Manager Name Role Phone Rosalind Cardoso Primary Care Provider [phone] Encounter Details Date Type Department Care Team ([facility] st Contact Info) Description 09/18/[address] [facility] MEDICINE [address] [place] [address] Rosalind Cardoso FNP [address] [place] [address] Social History Tobacco Use Types Packs/Day Years [...] Miscellaneous Notes * Telephone Encounter - Bahman Hutchinson - 09/18/2023 2:59 PM EDT Tc from pt stated she received a call for for televisit with pcp, blurb writer didn't see anything tasked. Please contact pt at [phone]. documented in this encounter Plan of Treatment Upcoming Encounters Date Type Department Care Team (Late st Contact Info) Description 11/26/2024 9:45 AM EDT Office Visit [facility] MEDICINE [address] [place] [address] Rosana Olvera MD 230 [place] [address] documented as of this encounter Visit Diagnoses Not on filedocumented in this encounter Additional Health Concerns Assessment Noted Time PHQ-9 Depression Total Score: 0 12/26/19 23 1:09 PM EDT documented as of this encounter Care Teams Business Services Manager Relationship Specialty Start Date End Date Rosalind Cardoso FNP [address] [place] [address] PCP - General Family Medicine 04/28/21 documented as of this encounter
--- OUTSIDE RECORDS SUMMARY | 2024-11-26 09:12 | XMS_ITS | Encounter Summary ---
Author Organization [employer] Address [address] [place] [address] 7t [place] [address] Care Team Providers Care Cupola Tapper Helper Name Role Phone Rosalind Cardoso Primary Care Provider [phone] Reason for Visit * Reason Onset Date Comments Results 08/29/2023 Encounter Details Date Type Department Care Team ([facility] st Contact Info) Description 08/29/[address] [facility] MEDICINE [address] [place] [address] Rosalind Cardoso FNP [address] [place] [address] Results Social History Tobacco Use Types Packs/Day [...] done today 08/29/23. Please contact pt @ [phone] documented in this encounter Plan of Treatment Upcoming Encounters Date Type Department Care Team (Late st Contact Info) Description 11/26/2024 9:45 AM EDT Office Visit [facility] MEDICINE [address] [place] [address] Rosana Olvera MD 230 [place] [address] documented as of this encounter Visit Diagnoses Not on filedocumented in this encounter Additional Health Concerns Assessment Noted Time PHQ-9 Depression Total Score: 0 12/26/19 23 1:09 PM EDT documented as of this encounter Care Teams Cupola Tapper Helper Relationship Specialty Start Date End Date Rosalind Cardoso FNP [address] [place] [address] PCP - General Family Medicine 04/28/21 documented as of this encounter
--- OUTSIDE RECORDS SUMMARY | 2024-11-26 09:12 | XMS_ITS | Encounter Summary ---
Author Organization [email or web address] Address [address] [place] [address] 7 [place] [address] Care Team Providers Care Computer Video Game Designer Name Role Phone Rosalind Cardoso Primary Care Provider [phone] Reason for Visit * Reason Onset Date Comments Referral Renewal 07/18/2023 Encounter Details Date Type Department Care Team ([facility] st Contact Info) Description 07/18/2023 Telephone [facility] MEDICINE [address] [place] [address] Rosalind Cardoso FNP [address] [place] [address] Referral Renewal Social History Tobacco Use Types [...] - 07/24/2023 2:27 PM EST Referral to [facility] for OT and physical therapy placed, thank you! * Telephone Encounter - Tiffanie Marquez RN - 07/19/2023 1:10 PM EST Returned call to pt regarding message below. Pt states she is requesting the same services she was getting to [facility] just in [facility] for PT and OT due to transportation. [facility] can offer pt transportation. Pt states she [...] following with Physical therapy and OT at [facility] (2x/week) for hx of left BKA. Please confirm that she is interested in switching locations, as well as confirm that still for same diagnosis. Thank you! * Telephone Encounter - Mario Lobo - 07/18/2023 12:11 PM EST Tc from patient calling to get a referral renewal for PT and OT and would like to be sent to [facility] at [address] [facility], [place] [address] documented in this encounter Plan of Treatment Upcoming Encounters Date Type Department Care Team (Late st Contact Info) Description 11/26/2024 9:45 AM EDT Office Visit [facility] MEDICINE [address] [place] [address] Rosana Olvera MD [address] [place] [address] documented as of this encounter Visit Diagnoses Diagnosis 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 (CMS/HCC)- Primary documented in this encounter Additional Health Concerns Assessment Noted Time PHQ-9 Depression Total Score: 0 12/26/19 23 1:09 PM EDT documented as of this encounter Care Teams Computer Video Game Designer Relationship Specialty Start Date End Date Rosalind Cardoso FNP [address] [place] [address] PCP - General Family Medicine 04/28/21 documented as of this encounter
--- OUTSIDE RECORDS SUMMARY | 2024-11-26 09:12 | XMS_ITS | Encounter Summary ---
Author Organization [employer] Address [address] [place] [address] 7 [place] [address] Care Team Providers Care Alumina Refinery Operator Name Role Phone Rosalind Cardoso Primary Care Provider [phone] Reason for Visit * Reason Onset Date Comments Durable Medical Equipment 09/14/2022 Encounter Details Date Type Department Care Team ([facility] st Contact Info) Description 09/14/2022 Telephone [facility] MEDICINE [address] [place] [address] Rosalind Cardoso FNP [address] [place] [address] Durable Medical Equipment Social History Tobacco Use [...] for signature and will be emailed to career consultant Leonard for processing * Telephone Encounter - Franc Talley - 09/14/2022 11:52 AM EST Tc from pt requesting a call back, pt claims that the visiting care takers advised that patient needs a thick cushion for her wheel chair and a New walker with two wheels because the other walker is to fast for the pt. If any questions please contact pt at [phone] documented in this encounter Plan of Treatment Upcoming Encounters Date Type Department Care Team (Late st Contact Info) Description 11/26/2024 9:45 AM EDT Office Visit [facility] MEDICINE [address] [place] [address] Rosana Olvera MD [address] [place] [address] documented as of this encounter Visit Diagnoses Not on filedocumented in this encounter Care Teams Alumina Refinery Operator Relationship Specialty Start Date End Date Rosalind Cardoso FNP [address] [place] [address] PCP - General Family Medicine 04/28/21 documented as of this encounter
--- OUTSIDE RECORDS SUMMARY | 2024-11-26 09:12 | XMS_ITS | Encounter Summary ---
Author Organization [employer] Address [address] [place] [address] 7 [place] [address] Care Team Providers Care Layout Mechanic Name Role Phone Rosalind Cardoso Primary Care Provider [phone] Reason for Visit * Reason Onset Date Comments Medication Question 10/22/2023 Encounter Details Date Type Department Care Team ([facility] st Contact Info) Description 10/22/2023 Telephone [facility] MEDICINE [address] [place] [address] Rosalind Cardoso FNP [address] [place] [address] Medication Question Social History Tobacco Use Types [...] 11/26/2024 9:45 AM EDT Office Visit [facility] MEDICINE [address] [place] [address] Rosana Olvera MD 230 [place] [address] documented as of this encounter Visit Diagnoses Not on filedocumented in this encounter Additional Health Concerns Assessment Noted Time PHQ-9 Depression Total Score: 0 12/26/19 23 1:09 PM EDT documented as of this encounter Care Teams Layout Mechanic Relationship Specialty Start Date End Date Rosalind Cardoso FNP [address] [place] [address] PCP - General Family Medicine 04/28/21 documented as of this encounter
--- OUTSIDE RECORDS SUMMARY | 2024-11-26 09:12 | XMS_ITS | Encounter Summary ---
Author Organization [employer] Address [address] [place] [address] 7 [place] [address] Care Team Providers Care Disability Case Manager Name Role Phone Rosalind Cardoso Primary Care Provider [phone] Reason for Visit * Reason Onset Date Comments medication request 10/22/2023 Encounter Details Date Type Department Care Team ([facility] st Contact Info) Description 10/22/2023 Telephone [facility] MEDICINE [address] [place] [address] Rosalind Cardoso FNP [address] [place] [address] medication request Social History Tobacco Use Types [...] medication for pneumonia stated Pain Management from [facility] call her to advise of dx documented in this encounter Plan of Treatment Upcoming Encounters Date Type Department Care Team (Late st Contact Info) Description 11/26/2024 9:45 AM EDT Office Visit [facility] MEDICINE [address] [place] [address] Rosana Olvera MD [address] [place] [address] documented as of this encounter Visit Diagnoses Not on filedocumented in this encounter Additional Health Concerns Assessment Noted Time PHQ-9 Depression Total Score: 0 12/26/19 23 1:09 PM EDT documented as of this encounter Care Teams Disability Case Manager Relationship Specialty Start Date End Date Rosalind Cardoso FNP [address] [place] [address] PCP - General Family Medicine 04/28/21 documented as of this encounter
--- OUTSIDE RECORDS SUMMARY | 2024-11-26 09:12 | XMS_ITS | Encounter Summary ---
Author Organization [employer] Address [address] [facility] 7t [place] [address] Care Team Providers Care Drawing Tracer Name Role Phone Rosalind Cardoso Primary Care Provider Encounter Details Date Type Department Care Team (Late st Contact Info) Description 10/04/2023 Orders Only [facility] MEDICINE [address] [place] [address] Rosalind Cardoso FNP [address] [place] [address] Type 2 diabetes mellitus with stage 3 [...] Office Visit [facility] MEDICINE [address] [place], [place] [phone] Rosana Olvera MD [address] [place], [place] [phone] documented as of this encounter Procedures Procedure Name Priority Date/Time Associated Diagnosis Comments SED RATE BY MODIFIED WESTERGREN Routine 10/25/2023 1:09 PM EDT Type 2 diabetes mellitus with stage 3 chronic kidney disease, with long-term current use of insulin, unspecified whether stage 3a or 3b CKD ([facility]) Myalgia PROTHROMBIN TIME-INR Routine 10/25/2023 1:09 PM EDT Type 2 diabetes mellitus with stage 3 chronic kidney disease, with long-term current use of insulin, unspecified whether stage 3a or 3b CKD ([facility]/HCC) Myalgia documented in this encounter Results * (ABNORMAL) Sed Rate by Modified Westergren (10/25/2023 1:09 PM EDT) Erythrocyte Sedimentation Rate 46(H) 0 - 20 MM/HR [facility] Comment:Patients with polycy themia and many hemoglobin abnormalitiesmay have depressed sed rates whereas patients with anemiamay have elevated sed rates. Blood Venous blood specimen / Unknown 10/25/2023 1:09 PM EDT 10/25/2023 1:09 PM EDT Rosalind MORELOS LAB BLOOD ORDERABLES Final Res ult Performing Organization Address City/[facility]/ZIP Co de Phone Number [facility] [address] [place] [address] [phone] * Prothrombin Time-INR (10/25/2023 1:09 PM EDT) Prothrombin Time 12.3 11.1 - 13.3 SEC [facility] INTERNATIONAL NORM RATIO 1.0 0.9 - 1.1 [facility] Comment:INTERNATIONAL NORMAL IZED RATIO [...] PM EDT 10/25/2023 1:09 PM EDT Rosalind MORELOS LAB BLOOD ORDERABLES Final Res ult Performing Organization Address [facility] Co de Phone Number [facility] [address] [place] [phone] documented in this encounter Visit Diagnoses Diagnosis Type 2 diabetes mellitus with stage 3 chronic kidney disease, with long-term current use of insulin, unspecified whether stage 3a or 3b CKD (CMS/HCC) Myalgia Unspecified myalgia and myositis documented in this encounter Additional Health Concerns Assessment Noted Time PHQ-9 Depression Total Score: 0 12/26/19 1:09 PM EDT documented as of this encounter Care Teams Drawing Tracer Relationship Specialty Start Date End Date Rosalind Cardoso FNP [address] [place] [address] PCP - General Family Medicine 04/28/21 documented as of this encounter
--- OUTSIDE RECORDS SUMMARY | 2024-11-26 09:12 | XMS_ITS | Encounter Summary ---
Author Organization [employer] Address [address] [place] [address] 7 [place] [address] Care Team Providers Care Machine Maintenance Technician Name Role Phone Rosalind Cardoso Primary Care Provider [phone] Reason for Visit * Reason Onset Date Comments FYI 09/10/2022 Encounter Details Date Type Department Care Team ([facility] st Contact Info) Description 09/10/2022 Telephone [facility] MEDICINE [address] [place] [address] Rosalind Cardoso FNP [address] [place] [address] FYI Social History Tobacco Use Types Packs/Day [...] If any question please contact Nae at [phone] documented in this encounter Plan of Treatment Upcoming Encounters Date Type Department Care Team (Late st Contact Info) Description 11/26/2024 9:45 AM EDT Office Visit [facility] MEDICINE [address] [place] [address] Rosana Olvera MD [address] [place] [address] documented as of this encounter Visit Diagnoses Not on filedocumented in this encounter Care Teams Machine Maintenance Technician Relationship Specialty Start Date End Date Rosalind Cardoso FNP [address] [place] [address] PCP - General Family Medicine 04/28/21 documented as of this encounter
--- OUTSIDE RECORDS SUMMARY | 2024-11-26 09:12 | XMS_ITS | Encounter Summary ---
Author Organization [employer] Address [address] [place] [address] 7 [place] [address] Care Team Providers Care Dividend Deposit Entry Clerk Name Role Phone Rosalind Cardoso Primary Care Provider [phone] Reason for Visit * Reason Onset Date Comments Results 08/06/2023 Encounter Details Date Type Department Care Team ([facility] Contact Info) Description 08/06/2023 Telephone [facility] [address] [place] [address] Rosalind Cardoso FNP [address] [place] [address] Results Social History Tobacco Use Types Packs/Day [...] results: labs Date when done: 08/06 Facility: [facility] Please contact pt at [phone] documented in this encounter Plan of Treatment Upcoming Encounters Date Type Department Care Team (Late st Contact Info) Description 11/26/2024 9:45 AM EDT Office Visit [facility] MEDICINE [address] [place] [address] Rosana Olvera MD [address] [place] [address] documented as of this encounter Visit Diagnoses Not on filedocumented in this encounter Additional Health Concerns Assessment Noted Time PHQ-9 Depression Total Score: 0 12/26/19 23 1:09 PM EDT documented as of this encounter Care Teams Dividend Deposit Entry Clerk Relationship Specialty Start Date End Date Rosalind Cardoso FNP [address] [place] [address] PCP - General Family Medicine 04/28/21 documented as of this encounter
--- OUTSIDE RECORDS SUMMARY | 2024-11-26 09:12 | XMS_ITS | Encounter Summary ---
Author Organization [employer] Address [address] [facility] 7t [place] [address] Care Team Providers Care Eco Industrial Development Consultant Name Role Phone Rosalind Cardoso Primary Care Provider [phone] Encounter Details Date Type Department Care Team (Late st Contact Info) Description 09/20/2023 Orders Only [facility] MEDICINE [address] [place] [address] Rosalind Cardoso FNP [address] [place] [address] Type 2 diabetes mellitus with stage 3 [...] Description 11/26/2024 9:45 AM EDT Office Visit [facility] MEDICINE [address] [place] [address] Rosana Olvera MD [address] [place], [place] [phone] documented as of this encounter Procedures Procedure [...] 3a or 3b CKD ([facility]/HCC) Myalgia COMPREHENSIVE METABOLIC PANEL Routine 09/27/2023 9:56 AM EDT Type 2 diabetes mellitus with stage 3 chronic kidney disease, with long-term current use of insulin, unspecified whether stage 3a or 3b CKD ([facility]/HCC) Myalgia documented in this encounter Results * (ABNORMAL) Sed Rate by Modified Mangoergren (09/27/2023 9:56 AM EDT) Erythrocyte Sedimentation Rate 42(H) 0 - 20 MM/HR [facility] Comment:Patients with polycy themia and many hemoglobin abnormalitiesmay have depressed sed rates whereas patients with anemiamay have elevated sed rates. Blood Venous blood specimen / Unknown 09/27/2023 9:56 AM EDT 09/27/2023 9:58 AM EDT Rosalind Cardoso [facility] LAB BLOOD ORDERABLES Final Res ult Performing Organization Address [facility]/ZIP Co de Phone Number [facility] [address] [place] [phone] * (ABNORMAL) C-reactive Protein (09/27/2023 9:56 AM EDT) Pathologist [facility] C Reactive Protein 0.63(H) < or = 0.50 mg/dL [facility] Blood Venous blood specimen / Unknown 09/27/2023 9:56 AM EDT 09/27/2023 9:58 AM EDT Rosalind Cardoso DESIGN ASSEMBLER LAB BLOOD ORDERABLES Final Res ult [facility] [address] [place] [phone] * Magnesium (09/27/2023 9:56 AM EDT) Pathologist [facility] Magnesium 1.7 1.6 - 2.6 mg/dL [facility] Blood Venous blood specimen / Unknown 09/27/2023 9:56 AM EDT 09/27/2023 9:58 AM EDT Rosalind Cardoso [facility] LAB BLOOD ORDERABLES Final Res ult Performing Organization Address [facility]/ZIP Co de Phone Number [facility] [address] [place] [phone] * Prothrombin Time-INR (09/27/2023 9:56 AM EDT) [facility] Prothrombin Time 11.5 11.1 - 13.3 SEC [facility] INTERNATIONAL NORM RATIO 0.9 0.9 - 1.1 [facility] Comment:INTERNATIONAL NORMAL IZED RATIO (INR) [...] EDT 09/27/2023 9:58 AM EDT Rosalind Cardoso [facility] LAB BLOOD ORDERABLES Final Res ult Performing Organization Address [facility]/ZIP Co de Phone Number [facility] [address] [place] [phone] * (ABNORMAL) Comprehensive Metabolic Panel (09/27/2023 9:56 AM EDT) [facility] Sodium 140 135 - 145 mmol/L [facility] Potassium 3.8 3.3 - 5.1 mmol/L [facility] Chloride 105 96 - 108 mmol/L [facility] Carbon Dioxide 27 22 - 29 mmol/L [facility] Anion Gap 12 12 - 20 [facility] Urea Nitrogen (BUN) 36(H) 9 - 16 mg/dL [facility] Creatinine, Serum 1.55(H) 0.5 - 1.4 mg/dL [facility] Estimated Glomerular Filt Rate 34 [facility] Comment:NOTE: For -Am erican individuals, multiply the result by 1.210.Chronic Kidney Disease: Estimated GFR < 60 mL/min/1.30r1Vehsub Kidney Disease: Estimated GFR < 15 mL/min/1.73m2 Glucose 191(H) 60 - 115 mg/dL [facility] Calcium 9.2 8.4 - 10.2 mg/dL [facility] Bilirubin, Total 0.3 0.0 - 1.0 mg/dL [facility] Aspartate Amino Transferase 22 5 - 31 U/L [facility] Alanine Aminotransferase 35(H) 0 - 31 U/L [facility] Total Protein 6.3(L) 6.5 - 8.0 g/dL [facility] Albumin Level 3.2(L) 3.5 - 5.0 g/dL [facility] Alkaline Phosphatase 125(H) 39 - 117 U/L [facility] Blood Venous blood specimen / Unknown 09/27/2023 9:56 AM EDT 09/27/2023 9:58 AM EDT us Rosalind Cardoso DESIGN ASSEMBLER LAB BLOOD ORDERABLES Final Res ult [facility] [address] [place] [address] [phone] * (ABNORMAL) CBC auto differential (09/27/2023 9:56 AM EDT) White Blood Count 8.6 4.8 - 10.8 X10*3/uL [facility] Red Blood Count 4.52 4.20 - 5.50 X10*6/uL [facility] Hemoglobin 8.8(L) 12.0 - 16.0 g/dl [facility] Hematocrit 29.9(L) 37.0 - 47.0 % [facility] Mean Corpuscular Volume 66.2(L) 80.0 - 98.0 fL [facility] Mean Corpuscular Hemoglobin 19.5(L) 27.0 - 33.0 pg [facility] Mean Corpuscular HGB Conc 29.4(L) 31.0 - 35.0 g/dl [facility] Red Cell Distribution Width 18.4(H) 11.0 - 16.0 % [facility] Platelet Count 370 160 - 400 X10*3/uL [facility] Mean Platelet Volume 10.5 9.4 - 12.3 fL [facility] Neutrophils Percent Auto 66.9 45 - 73 % [facility] Imm Gran Pct Auto 0.6(H) 0.0 - 0.4 % [facility] Lymphocytes Percent Auto 21.8 20 - 40 % [facility] Monocytes Percent Auto 7.0 2 - 11 % [facility] Eosinophils Percent Auto 3.0 0 - 4 % [facility] Basophils Percent Auto 0.7 0 - 2 % [facility] NRBC Pct Auto 0.0 0.0 - 0.2 /100WBC [facility] Neutrophils Absolute Auto 5.7 2.0 - 8.3 x10*3/uL [facility] Imm Gran Abs Auto 0.05(H) 0.00 - 0.03 X10*3/uL [facility] Lymphocytes Absolute Auto 1.9 1.2 - 4.9 X10*3/uL [facility] Monocytes Absolute Auto 0.6 0.1 - 1.2 X10*3/uL [facility] Eosinophils Absolute Auto 0.3 0.0 - 0.4 X10*3/uL [facility] Basophils Absolute Auto 0.1 0.0 - 0.2 X10*3/uL [facility] NRBC Abs Auto 0.000 0.0 - 0.012 X10*3/uL [facility] Blood Venous blood specimen / Unknown 09/27/2023 9:56 AM EDT 09/27/2023 9:58 AM EDT us Rosalind MORELOS LAB BLOOD ORDERABLES Final Res ult [facility] [address] [place] [address] [phone] documented in this encounter Visit Diagnoses [...] documented as of this encounter Care Teams Eco Industrial Development Consultant Relationship Specialty Start Date End Date Rosalind Cardoso FNP [address] [place] [address] PCP - General Family Medicine 04/28/21 documented as of this encounter
--- OUTSIDE RECORDS SUMMARY | 2024-11-26 09:12 | XMS_ITS | Encounter Summary ---
Author Organization [employer] Address [address] [place] [address] 7t [place] [address] Care Team Providers Care Permaculture Designer Name Role Phone Rosalind Cardoso Primary Care Provider [phone] Reason for Visit * Reason Onset Date Comments Referral 10/10/2023 Encounter Details Date Type Department Care Team ([facility] st Contact Info) Description 10/10/2023 Telephone [facility] MEDICINE [address] [place] [address] Rosalind Cardoso FNP [address] [place] [address] Referral Social History Tobacco Use Types Packs/Day [...] any questions you can contact pt at [phone]. documented in this encounter Plan of Treatment Upcoming Encounters Date Type Department Care Team (Late st Contact Info) Description 11/26/2024 9:45 AM EDT Office Visit [facility] MEDICINE [address] [place], [place] [phone] Rosana Olvera MD [address] [place], [place] [phone] documented as of this encounter Visit Diagnoses Not on filedocumented in this encounter Additional Health Concerns Assessment Noted Time PHQ-9 Depression Total Score: 0 12/26/19 23 1:09 PM EDT documented as of this encounter Care Teams Permaculture Designer Relationship Specialty Start Date End Date Rosalind Cardoso FNP [address] [place] [address] PCP - General Family Medicine 04/28/21 documented as of this encounter
[2024-11-26 11:07] LABS: MANUAL DIFF FLAG NO
[2024-11-26 11:18] LABS: Basophils Absolute Auto 0.1 X10*3/uL (0.0-0.2); Basophils Percent Auto 0.6 % (0-2); Eosinophils Absolute Auto 0.2 X10*3/uL (0.0-0.4); Eosinophils Percent Auto 1.7 % (0-4); Hematocrit 26.9 % (37.0-47.0); Imm Gran Abs Auto 0.05 X10*3/uL (0.00-0.03); Imm Gran Pct Auto 0.5 % (0.0-0.4); Lymphocytes Absolute Auto 1.4 X10*3/uL (1.2-4.9); Lymphocytes Percent Auto 14.5 % (20-40); Mean Corpuscular HGB Conc 29.7 g/dl (31.0-35.0); Mean Corpuscular Hemoglobin 19.2 pg (27.0-33.0); Mean Platelet Volume 11.7 fL (9.4-12.3); Monocytes Absolute Auto 0.5 X10*3/uL (0.1-1.2); Monocytes Percent Auto 5.6 % (2-11); NRBC Pct Auto 0.3 /100WBC (0.0-0.2); Neutrophils Absolute Auto 7.1 x10*3/uL (2.0-8.3); Neutrophils Percent Auto 77.1 % (45-73); Platelet Count 281 X10*3/uL (160-400); Red Blood Count 4.17 X10*6/uL (4.20-5.50); Red Cell Distribution Width 18.4 % (11.0-16.0); White Blood Count 9.3 X10*3/uL (4.8-10.8)
[2024-11-26 11:19] LABS: Prothrombin Time 11.1 SEC (10.9-12.4)
[2024-11-26 11:20] LABS: Mean Corpuscular Volume 64.5 fL (80.0-98.0)
[2024-11-26 12:00] LABS: Erythrocyte Sedimentation Rate 48 MM/HR (0-20)
[2024-11-26 12:53] LABS: Alanine Aminotransferase 19 U/L (0-31); Albumin Level 3.6 g/dL (3.5-5.0); Alkaline Phosphatase 117 U/L (39-117); Anion Gap 13 (12-20); Aspartate Amino Transferase 22 U/L (5-31); Bilirubin Total 0.4 mg/dL (0.0-1.0); Blood Urea Nitrogen 30 mg/dL (9-16); C Reactive Protein 1.56 mg/dL (< or = 0.50); Calcium 9.1 mg/dL (8.4-10.2); Carbon Dioxide 26 mmol/L (22-29); Chloride 103 mmol/L (96-108); Estimated Glomerular Filt Rate 29; Glucose Random 449 mg/dL (60-115); Magnesium 2.2 mg/dL (1.6-2.6); Potassium 3.7 mmol/L (3.3-5.1); Sodium 138 mmol/L (135-145); Total Protein 6.7 g/dL (6.5-8.0)
== END 2024-11-26 08:58 | disposition home or self-care (01) ==
LOC: HO.HHCL 08:57
PROVIDERS: Internal Medicine Medical Oncology; Nurse Practitioner Family; Visit Provider Registered Nurse
DX: Z13.89 Encounter for screening for other disorder (principal)
CPT/HCPCS: 36415; 80053; 83735; 85025; 85610; 85652; 86140

== ENCOUNTER 2024-11-26 11:10 | Outpatient (REF) | payer OTHER, SELFPAY ==
--- OUTSIDE RECORDS SUMMARY | 2024-11-26 11:47 | XMS_ITS | Encounter Summary ---
Author Organization [employer] Address [address] [place] [address] 7 [place] [address] Care Team Providers Care Power Saw Mechanic Name Role Phone Rosalind Cardoso Primary Care Provider [phone] Encounter Details Date Type Department Care Team ([facility] st Contact Info) Description 06/19/2024 Orders Only [facility] MED & PEDS [address] [place], [place] [phone] Rosalind Cardoso FNP [address] [place] [address] Type 2 diabetes mellitus with stage 3 [...] Prothrombin Time 11.3 10.9 - 12.4 SEC [facility] INTERNATIONAL NORM RATIO 1.0 0.9 - 1.1 [facility] Comment:INTERNATIONAL NORMAL IZED RATIO (INR) [...] AM EST 06/23/2024 10:31 AM EST Rosalind [email or web address] [facility] LAB BLOOD ORDERABLES Final Res ult Performing Organization Address [facility] Co de Phone Number [facility] [address] [place] [phone] * (ABNORMAL) Sed Rate by Modified Westergren (06/23/2024 10:31 AM EST) Pathologist [facility] Erythrocyte Sedimentation Rate 38(H) 0 - 20 MM/HR [facility] Comment:Patients with polycy themia and many hemoglobin abnormalitiesmay have depressed sed rates whereas patients with anemiamay have elevated sed rates. Blood Venous blood specimen / Unknown 06/23/2024 10:31 AM EST 06/23/2024 10:31 AM EST Rosalind [email or web address] BLOOD ORDERABLES Final Res ult Performing Organization Address [facility] Co de Phone Number [facility] [address] [place] [phone] * (ABNORMAL) Comprehensive Metabolic Panel (06/23/2024 10:31 AM EST) Pathologist [facility] Sodium 134(L) 135 - 145 mmol/L [facility] Potassium 4.1 3.3 - 5.1 mmol/L [facility] Chloride 97 96 - 108 mmol/L [facility] Carbon Dioxide 27 22 - 29 mmol/L [facility] Anion Gap 14 12 - 20 [facility] Urea Nitrogen (BUN) 45(H) 9 - 16 mg/dL [facility] Creatinine, Serum 1.91(H) 0.5 - 1.4 mg/dL [facility] Estimated Glomerular Filt Rate 27 [facility] Comment:Chronic Kidney Disea se: Estimated GFR < 60 mL/min/1.57m9Vtberp Kidney Disease: Estimated GFR < 15 mL/min/1.73m2 Glucose 287(H) 60 - 115 mg/dL [facility] Calcium 9.1 8.4 - 10.2 mg/dL [facility] Bilirubin, Total 0.3 0.0 - 1.0 mg/dL [facility] Aspartate Amino Transferase 19 5 - 31 U/L [facility] Alanine Aminotransferase 11 0 - 31 U/L [facility] Total Protein 7.4 6.5 - 8.0 g/dL [facility] Albumin Level 3.6 3.5 - 5.0 g/dL [facility] Alkaline Phosphatase 99 39 - 117 U/L [facility] Blood Venous blood specimen / Unknown 06/23/2024 10:31 AM EST 06/23/2024 10:31 AM EST Rosalind Cardoso WAFER SUBSTRATE TESTER LAB BLOOD ORDERABLES Final Res ult [facility] [address] [place] [phone] [phone] documented in this encounter Visit Diagnoses Diagnosis Type 2 diabetes mellitus with stage 3 chronic kidney disease, with long-term current use of insulin, unspecified whether stage 3a or 3b CKD (CMS/HCC) Primary hypertension Unspecified essential hypertension Stage 3b chronic kidney disease ([facility]/HCC) 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
--- OUTSIDE RECORDS SUMMARY | 2024-11-26 11:47 | XMS_ITS | Encounter Summary ---
Author Organization [employer] Address [address] [place] [address] 7t [place] [address] Care Team Providers Care Information Analyst Name Role Phone Rosalind Cardoso Primary Care Provider [phone] Encounter Details Date Type Department Care Team (Late st Contact Info) Description 08/07/2024 Orders Only [facility] MEDICINE [address] [place] [address] Rosalind Cardoso FNP [address] [place] [address] Type 2 diabetes mellitus with stage 3 [...] unspecified whether stage 3a or 3b CKD (CMS/[facility]) Myalgia documented in this encounter Results * (ABNORMAL) Prothrombin Time-INR (10/02/2024 3:12 PM EDT) Prothrombin Time 10.5(L) 10.9 - 12.4 SEC [facility] INTERNATIONAL NORM RATIO 0.9 0.9 - 1.1 [facility] Comment:INTERNATIONAL NORMAL IZED RATIO (INR) [...] MORELOS LAB BLOOD ORDERABLES Final Res ult [facility] [address] [place] [address] [phone] documented in this encounter Visit Diagnoses [...] documented as of this encounter Care Teams Information Analyst Relationship Specialty Start Date End Date Rosalind Cardoso FNP [address] [place] [address] PCP - General Family Medicine 04/28/21 documented as of this encounter
--- OUTSIDE RECORDS SUMMARY | 2024-11-26 11:47 | XMS_ITS | Encounter Summary ---
Author Organization [employer] Address [address] [place] [address] 7 [place] [address] Care Team Providers Care Biotechnologist Name Role Phone Rosalind Cardoso Primary Care Provider [phone] Encounter Details Date Type Department Care Team ([facility] st Contact Info) Description 07/03/2024 Orders Only [facility] CHC MED & PEDS [address] [place], [place] [phone] Rosalind Cardoso FNP [address] [place] [address] Type 2 diabetes mellitus with stage 3 [...] Prothrombin Time 10.7(L) 10.9 - 12.4 SEC [facility] [...] 07/07/2024 10:24 AM EST us Rosalind Cardoso BOND WRITER LAB BLOOD ORDERABLES Final Res ult [facility] [address] [place] [phone] * (ABNORMAL) C-reactive Protein (07/07/2024 10:24 AM EST) C Reactive Protein 1.00(H) < or = 0.50 mg/dL [facility] Blood Venous blood specimen / Unknown 07/07/2024 10:24 AM EST 07/07/2024 10:24 AM EST Rosalind Cardoso BOND WRITER LAB BLOOD ORDERABLES Final Res ult Performing Organization Address [facility] Co de Phone Number [facility] [address] [place] [address] [phone] * (ABNORMAL) Sed Rate by Modified Westergren (07/07/2024 10:24 AM EST) Erythrocyte Sedimentation Rate 34(H) 0 - 20 MM/HR [facility] Comment:Patients with polycy themia and many hemoglobin abnormalitiesmay have depressed sed rates whereas patients with anemiamay have elevated sed rates. Blood Venous blood specimen / Unknown 07/07/2024 10:24 AM EST 07/07/2024 10:24 AM EST Rosalind Cardoso BOND WRITER LAB BLOOD ORDERABLES Final Res ult Performing Organization Address [facility] Co de Phone Number [facility] [address] [place] [address] [phone] * Magnesium (07/07/2024 10:24 AM EST) Magnesium 1.8 1.6 - 2.6 mg/dL [facility] Blood Venous blood specimen / Unknown 07/07/2024 10:24 AM EST 07/07/2024 10:24 AM EST Rosalind Phaledna BOND WRITER LAB BLOOD ORDERABLES Final Res ult Performing Organization Address [facility]/ZIP Co de Phone Number [facility] [address] [place] [address] [phone] * (ABNORMAL) Comprehensive Metabolic Panel (07/07/2024 10:24 AM EST) Sodium 135 135 - 145 mmol/L [facility] Potassium 3.7 3.3 - 5.1 mmol/L [facility] Chloride 102 96 - 108 mmol/L [facility] Carbon Dioxide 25 22 - 29 mmol/L [facility] Anion Gap 12 12 - 20 [facility] Urea Nitrogen (BUN) 47(H) 9 - 16 mg/dL [facility] Creatinine, Serum 1.54(H) 0.5 - 1.4 mg/dL [facility] Estimated Glomerular Filt Rate 34 [facility] Comment:Chronic Kidney Disea se: Estimated GFR < 60 mL/min/1.42a1Daugot Kidney Disease: Estimated GFR < 15 mL/min/1.73m2 Glucose 400(HH) 60 - 115 mg/dL [facility] Comment:Critical value for G RADHA: Results called to and read backby: KAYLEE Gallegos Person calling: OLESYA Date: 07/07/24 Time:1102 Calcium 9.6 8.4 - 10.2 mg/dL [facility] Bilirubin, Total 0.2 0.0 - 1.0 mg/dL [facility] Aspartate Amino Transferase 17 5 - 31 U/L [facility] Alanine Aminotransferase 9 0 - 31 U/L [facility] Total Protein 7.3 6.5 - 8.0 g/dL [facility] Albumin Level 3.5 3.5 - 5.0 g/dL [facility] Alkaline Phosphatase 109 39 - 117 U/L [facility] Blood Venous blood specimen / Unknown 07/07/2024 10:24 AM EST 07/07/2024 10:24 AM EST us Rosalind Cardoso BOND WRITER LAB BLOOD ORDERABLES Final Res ult [facility] [address] [place] [phone] [phone] documented in this encounter Visit Diagnoses Diagnosis Type 2 diabetes mellitus with stage 3 chronic kidney disease, with long-term current use of insulin, unspecified whether stage 3a or 3b CKD ([facility]/HCC) Primary hypertension Unspecified essential hypertension Stage 3b chronic kidney disease ([facility]/HCC) 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
--- OUTSIDE RECORDS SUMMARY | 2024-11-26 11:47 | XMS_ITS | Clinical Summary ---
Author Organization [facility] Address [address] [facility] [address] [place] [address] Phone Care Team Providers Care Bakery Machine Mechanic Name Role Phone Rosalind Cardoso TAMY Primary Care Provider [phone] Allergies No known active allergies Medications aspirin [...] BKA performed by Dr. Borden 09/01/22 at [facility] -Indication: gangrene and ulcers of [...] & Plan: -Optometry: [facility] November 2021 -Dental: [facility] -Pap: reports last 2019 and believes results were normal, referred to UroGYN -Colorectal CA screening: iFOBT neg 12/18/21, due December 2022 -Mammogram: BIRADS 3 on 01/16/22, due Jul 2022 -Outstanding vaccines: influenza, Tdap, Shingrix, PCV20, COVID ?? [facility] Circular Sawyer Helper Osi: plan to schedule follow up appts the following specialists: ?? [facility]ph[facility] ?? [facility] ?? [facility] GI ?? [facility] Cards ?? [facility] UroGYN Generalized abdominal pain 06/20/2022 Overview (12/17/2022): [...] patient's age to complete this topic Insurance [facility] ([id number]) [facility] ([id number]) Care Teams Bakery Machine Mechanic Relationship Specialty Start Date End Date Rosalind Cardoso FNP [address] [place] [address] PCP - General 11/12/23
--- OUTSIDE RECORDS SUMMARY | 2024-11-26 11:48 | XMS_ITS | Encounter Summary ---
Author Organization [employer] Address [address] [place] [address] 7t [place] [address] Care Team Providers Care Cardiology Fellow Name Role Phone Rosalind Cardoso Primary Care Provider [phone] Reason for Visit * Reason Onset Date Comments Results 10/29/2023 Encounter Details Date Type Department Care Team ([facility] st Contact Info) Description 10/29/2023 Telephone [facility] MEDICINE [address] [place] [address] Rosalind Cardoso FNP [address] [place] [address] Results Social History Tobacco Use Types Packs/Day [...] documented as of this encounter Care Teams Cardiology Fellow Relationship Specialty Start Date End Date Rosalind Cardoso FNP [address] [place] [address] PCP - General Family Medicine 04/28/21 documented as of this encounter
--- OUTSIDE RECORDS SUMMARY | 2024-11-26 11:48 | XMS_ITS | Encounter Summary ---
Author Organization [employer] Address [address] [place] [address] 7 [place] [address] Care Team Providers Care Clay Modeler Name Role Phone Rosalind Cardoso Primary Care Provider [phone] Encounter Details Date Type Department Care Team ([facility] st Contact Info) Description 08/28/2024 Orders Only [facility] CHC MED & PEDS [address] [place], [place] [phone] Rosalind Cardoso FNP [address] [place] [address] Type 2 diabetes mellitus with stage 3 [...] documented as of this encounter Care Teams Clay Modeler Relationship Specialty Start Date End Date Rosalind Cardoso FNP [address] [place] [phone] PCP - General Family Medicine 04/28/21 documented as of this encounter
--- OUTSIDE RECORDS SUMMARY | 2024-11-26 11:48 | XMS_ITS | Encounter Summary ---
Author Organization [employer] Address [address] [place] [address] 7 [place] [address] Care Team Providers Care Food And Beverage Checker Name Role Phone Rosalind Cardoso Primary Care Provider [phone] Reason for Visit * Reason Onset Date Comments Referral Renewal 07/18/2023 Encounter Details Date Type Department Care Team ([facility] st Contact Info) Description 07/18/2023 Telephone [facility] MEDICINE [address] [place] [address] Rosalind Cardoso FNP [address] [place] [address] Referral Renewal Social History Tobacco Use Types [...] - 07/24/2023 2:27 PM EST Referral to [facility] for OT and physical therapy placed, thank you! * Telephone Encounter - Tiffanie Marquez RN - 07/19/2023 1:10 PM EST Returned call to pt regarding message below. Pt states she is requesting the same services she was getting to [facility] just in [facility] for PT and OT due to transportation. [facility] can offer pt transportation. Pt states she [...] following with Physical therapy and OT at [facility] (2x/week) for hx of left BKA. Please confirm that she is interested in switching locations, as well as confirm that still for same diagnosis. Thank you! * Telephone Encounter - Mario Lobo - 07/18/2023 12:11 PM EST Tc from patient calling to get a referral renewal for PT and OT and would like to be sent to 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
--- OUTSIDE RECORDS SUMMARY | 2024-11-26 11:48 | XMS_ITS | Encounter Summary ---
Author Organization [employer] Address [address] [place] [address] 7t [place] [address] Care Team Providers Care Utility Worker Roller Shop Name Role Phone Rosalind Cardoso Primary Care Provider [phone] Reason for Visit * Reason Onset Date Comments Results 08/29/2023 Encounter Details Date Type Department Care Team ([facility] st Contact Info) Description 08/29/2023 Telephone [facility] MEDICINE [address] [place] [address] Rosalind Cardoso FNP [address] [place] [address] Results Social History Tobacco Use Types Packs/Day [...] with plan. Message from PCP, Please call Daily Марина - not all of her lab work [...] done today 08/29/23. Please contact pt @ [phone] documented in this encounter Plan of Treatment Not on file documented as of this encounter Visit Diagnoses Not on filedocumented in this encounter Additional Health Concerns Assessment Noted Time PHQ-9 Depression Total Score: 0 12/26/19 23 1:09 PM EDT documented as of this encounter Care Teams Utility Worker Roller Shop Relationship Specialty Start Date End Date Rosalind Cardoso FNP [address] [place] [phone] PCP - General Family Medicine 04/28/21 documented as of this encounter
--- OUTSIDE RECORDS SUMMARY | 2024-11-26 11:48 | XMS_ITS | Encounter Summary ---
Author Organization [employer] Address [address] [place] [address] 7 [place] [address] Care Team Providers Care Telephonic Nurse Case Manager Name Role Phone Rosalind Cardoso Primary Care Provider [phone] Encounter Details Date Type Department Care Team ([facility] st Contact Info) Description 09/11/[address] 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 ([facility]) documented in this encounter Results * (ABNORMAL) C-reactive Protein (10/06/2024 10:27 AM EDT) C Reactive Protein 0.59(H) < or = 0.50 mg/dL [facility] Blood Venous blood specimen / Unknown 10/06/2024 10:27 AM EDT 10/06/2024 10:27 AM EDT Rosalind Phaledna [facility] LAB BLOOD ORDERABLES Final Res ult Performing Organization Address [facility]/ZIP Co de Phone Number [facility] [address] [place] [phone] * Magnesium (10/06/2024 10:27 AM EDT) Pathologist [facility] Magnesium 2.0 1.6 - 2.6 mg/dL [facility] Blood Venous blood specimen / Unknown 10/06/2024 10:27 AM EDT 10/06/2024 10:27 AM EDT Rosalind Needl SALES ENGAGEMENT MANAGER LAB BLOOD ORDERABLES Final Res ult [facility] [address] [place] [phone] * (ABNORMAL) Comprehensive Metabolic Panel (10/06/2024 10:27 AM EDT) Sodium 134(L) 135 - 145 mmol/L [facility] Potassium 4.4 3.3 - 5.1 mmol/L [facility] Chloride 101 96 - 108 mmol/L [facility] Carbon Dioxide 24 22 - 29 mmol/L [facility] Anion Gap 13 12 - 20 [facility] Urea Nitrogen (BUN) 85(H) 9 - 16 mg/dL [facility] Creatinine, Serum 2.35(H) 0.5 - 1.4 mg/dL [facility] Estimated Glomerular Filt Rate 21 [facility] Comment:Chronic Kidney Disea se: Estimated GFR < 60 mL/min/1.61e5Qvyuzl Kidney Disease: Estimated GFR < 15 mL/min/1.73m2 Glucose 298(H) 60 - 115 mg/dL [facility] Calcium 9.6 8.4 - 10.2 mg/dL [facility] Bilirubin, Total 0.3 0.0 - 1.0 mg/dL [facility] Aspartate Amino Transferase 15 5 - 31 U/L [facility] Alanine Aminotransferase 7 0 - 31 U/L [facility] Total Protein 6.9 6.5 - 8.0 g/dL [facility] Albumin Level 3.6 3.5 - 5.0 g/dL [facility] Alkaline Phosphatase 91 39 - 117 U/L [facility] Blood Venous blood specimen / Unknown 10/06/2024 10:27 AM EDT 10/06/2024 10:27 AM EDT us Rosalind Cardoso SALES ENGAGEMENT MANAGER LAB BLOOD ORDERABLES Final Res ult [facility] [address] [place] [phone] * (ABNORMAL) Sed Rate by Modified Marlene (10/02/2024 3:12 PM EDT) Erythrocyte Sedimentation Rate 53(H) 0 - 20 MM/HR [facility] Comment:Patients with polycy themia and many hemoglobin abnormalitiesmay have depressed sed rates whereas patients with anemiamay have elevated sed rates. Blood Venous blood specimen / Unknown 10/02/2024 3:12 PM EDT 10/02/2024 3:12 PM EDT us Rosalind MORELOS LAB BLOOD ORDERABLES Final Res ult [facility] [address] [place] [phone] [phone] documented in this encounter Visit Diagnoses [...] documented as of this encounter Care Teams Telephonic Nurse Case Manager Relationship Specialty Start Date End Date Rosalind Cardoso FNP [address] [place] [phone] PCP - General Family Medicine 04/28/21 documented as of this encounter
--- OUTSIDE RECORDS SUMMARY | 2024-11-26 11:48 | XMS_ITS | Encounter Summary ---
Author Organization [employer] Address [address] [place] [address] 7 [place] [address] Care Team Providers Care Window Cleaner Name Role Phone Rosalind Cardoso Primary Care Provider [phone] Reason for Visit * Reason Onset Date Comments Medication Question 10/22/2023 Encounter Details Date Type Department Care Team ([facility] st Contact Info) Description 10/22/2023 Telephone [facility] MEDICINE [address] [place] [address] Rosalind Cardoso FNP [address] [place] [address] Medication Question Social History Tobacco Use Types [...] documented as of this encounter Care Teams Window Cleaner Relationship Specialty Start Date End Date Rosalind Cardoso FNP [address] [place] [phone] PCP - General Family Medicine 04/28/21 documented as of this encounter
--- OUTSIDE RECORDS SUMMARY | 2024-11-26 11:48 | XMS_ITS | Encounter Summary ---
Author Organization [employer] Address [address] [facility] 7t [place] [address] Care Team Providers Care Welt Treater Name Role Phone Rosalind Cardoso Primary Care Provider Encounter Details Date Type Department Care Team (Late st Contact Info) Description 09/20/2023 Orders Only [facility] MEDICINE [address] [place] [address] Rosalind Cardoso FNP [address] [place] [address] Type 2 diabetes mellitus with stage 3 [...] Sedimentation Rate 42(H) 0 - 20 MM/HR [facility] Comment:Patients with polycy themia and many hemoglobin abnormalitiesmay have depressed sed rates whereas patients with anemiamay have elevated sed rates. Blood Venous blood specimen / Unknown 09/27/2023 9:56 AM EDT 09/27/2023 9:58 AM EDT Rosalind Cardoso AGRICULTURAL SCIENCES PROFESSOR LAB BLOOD ORDERABLES Final Res ult Performing Organization Address [facility]/ZIP Co de Phone Number [facility] [address] [place] [phone] * (ABNORMAL) C-reactive Protein (09/27/2023 9:56 AM EDT) Pathologist [facility] C Reactive Protein 0.63(H) < or = 0.50 mg/dL [facility] Blood Venous blood specimen / Unknown 09/27/2023 9:56 AM EDT 09/27/2023 9:58 AM EDT Rosalind Cardoso AGRICULTURAL SCIENCES PROFESSOR LAB BLOOD ORDERABLES Final Res ult Performing Organization Address [facility]/State/ZIP Co de Phone Number [facility] [address] [place] [phone] * Magnesium (09/27/2023 9:56 AM EDT) Pathologist [facility] Magnesium 1.7 1.6 - 2.6 mg/dL [facility] Blood Venous blood specimen / Unknown 09/27/2023 9:56 AM EDT 09/27/2023 9:58 AM EDT Rosalind Cardoso [facility] LAB BLOOD ORDERABLES Final Res ult Performing Organization Address [facility] Co de Phone Number [facility] [address] [place] [address] [phone] * Prothrombin Time-INR (09/27/2023 9:56 AM EDT) Prothrombin Time 11.5 11.1 - 13.3 SEC [facility] INTERNATIONAL NORM RATIO 0.9 0.9 - 1.1 [facility] Comment:INTERNATIONAL NORMAL IZED RATIO (INR) [...] EDT 09/27/2023 9:58 AM EDT Rosalind Cardoso [facility] LAB BLOOD ORDERABLES Final Res ult Performing Organization Address [facility] Co de Phone Number [facility] [address] [place] [address] [phone] * (ABNORMAL) Comprehensive Metabolic Panel (09/27/2023 9:56 AM EDT) Sodium 140 135 - 145 mmol/L [facility] Potassium 3.8 3.3 - 5.1 mmol/L [facility] Chloride 105 96 - 108 mmol/L [facility] Carbon Dioxide 27 22 - 29 mmol/L [facility] Anion Gap 12 12 - 20 [facility] Urea Nitrogen (BUN) 36(H) 9 - 16 mg/dL [facility] Creatinine, Serum 1.55(H) 0.5 - 1.4 mg/dL [facility] Estimated Glomerular Filt Rate 34 [facility] Comment:NOTE: For -Am erican individuals, multiply the result by 1.210.Chronic Kidney Disease: Estimated GFR < 60 mL/min/1.06g5Ivlkew Kidney Disease: Estimated GFR < 15 mL/min/1.73m2 Glucose 191(H) 60 - 115 mg/dL [facility] Calcium 9.2 8.4 - 10.2 mg/dL [facility] Bilirubin, Total 0.3 0.0 - 1.0 mg/dL [facility] Aspartate Amino Transferase 22 5 - 31 U/L [facility] Alanine Aminotransferase 35(H) 0 - 31 U/L [facility] Total Protein 6.3(L) 6.5 - 8.0 g/dL [facility] Albumin Level 3.2(L) 3.5 - 5.0 g/dL [facility] Alkaline Phosphatase 125(H) 39 - 117 U/L [facility] Blood Venous blood specimen / Unknown 09/27/2023 9:56 AM EDT 09/27/2023 9:58 AM EDT us Rosalind Cardoso AGRICULTURAL SCIENCES PROFESSOR LAB BLOOD ORDERABLES Final Res ult [facility] [address] [place] [phone] * (ABNORMAL) CBC auto differential (09/27/2023 9:56 AM EDT) White Blood Count 8.6 4.8 - 10.8 X10*3/uL [facility] Red Blood Count 4.52 4.20 - 5.50 X10*6/uL [facility] Hemoglobin 8.8(L) 12.0 - 16.0 g/dl [facility] Hematocrit 29.9(L) 37.0 - 47.0 % [facility] Mean Corpuscular Volume 66.2(L) 80.0 - 98.0 fL [facility] Mean Corpuscular Hemoglobin 19.5(L) 27.0 - 33.0 pg [facility] Mean Corpuscular HGB Conc 29.4(L) 31.0 - 35.0 g/dl [facility] Red Cell Distribution Width 18.4(H) 11.0 - 16.0 % [facility] Platelet Count 370 160 - 400 X10*3/uL [facility] Mean Platelet Volume 10.5 9.4 - 12.3 fL [facility] Neutrophils Percent Auto 66.9 45 - 73 % [facility] Imm Gran Pct Auto 0.6(H) 0.0 - 0.4 % [facility] Lymphocytes Percent Auto 21.8 20 - 40 % [facility] Monocytes Percent Auto 7.0 2 - 11 % [facility] Eosinophils Percent Auto 3.0 0 - 4 % [facility] Basophils Percent Auto 0.7 0 - 2 % [facility] NRBC Pct Auto 0.0 0.0 - 0.2 /100WBC [facility] Neutrophils Absolute Auto 5.7 2.0 - 8.3 x10*3/uL [facility] Imm Gran Abs Auto 0.05(H) 0.00 - 0.03 X10*3/uL [facility] Lymphocytes Absolute Auto 1.9 1.2 - 4.9 X10*3/uL [facility] Monocytes Absolute Auto 0.6 0.1 - 1.2 X10*3/uL [facility] Eosinophils Absolute Auto 0.3 0.0 - 0.4 X10*3/uL [facility] Basophils Absolute Auto 0.1 0.0 - 0.2 X10*3/uL [facility] NRBC Abs Auto 0.000 0.0 - 0.012 X10*3/uL [facility] Blood Venous blood specimen / Unknown 09/27/2023 9:56 AM EDT 09/27/2023 9:58 AM EDT us Rosalind Cardoso AGRICULTURAL SCIENCES PROFESSOR LAB BLOOD ORDERABLES Final Res ult [facility] [address] [place] [phone] documented in this encounter Visit Diagnoses [...] documented as of this encounter Care Teams Welt Treater Relationship Specialty Start Date End Date Rosalind Cardoso FNP [address] [place] [phone] PCP - General Family Medicine 04/28/21 documented as of this encounter
--- OUTSIDE RECORDS SUMMARY | 2024-11-26 11:48 | XMS_ITS | Encounter Summary ---
Author Organization [employer] Address [address] [place] [address] 7 [place] [address] Care Team Providers Care Flight Manager Name Role Phone Rosalind Cardoso Primary Care Provider [phone] Reason for Visit * Reason Onset Date Comments FYI 09/10/2022 Encounter Details Date Type Department Care Team ([facility] st Contact Info) Description 09/10/2022 Telephone [facility] [address] [place] [address] Rosalind Cardoso FNP [address] [place] [address] FYI Social History Tobacco Use Types Packs/Day [...] If any question please contact Nae at [phone] documented in this encounter Plan of Treatment Not on file documented as of this encounter Visit Diagnoses Not on filedocumented in this encounter Care Teams Flight Manager Relationship Specialty Start Date End Date Rosalind Cardoso FNP [address] [place] [phone] PCP - General Family Medicine 04/28/21 documented as of this encounter
--- OUTSIDE RECORDS SUMMARY | 2024-11-26 11:48 | XMS_ITS | Encounter Summary ---
Author Organization [employer] Address [address] [place] [address] 7t [place] [address] Care Team Providers Care Lead Security Officer Name Role Phone Rosalind Cardoso Primary Care Provider [phone] Encounter Details Date Type Department Care Team ([facility] Contact Info) Description 10/19/2022 Telephone [facility] MEDICINE [address] [place] [address] Rosalind Cardoso FNP [address] [place] [address] Social History Tobacco Use Types Packs/Day Years [...] on filedocumented in this encounter Care Teams Lead Security Officer Relationship Specialty Start Date End Date Rosalind Cardoso FNP [address] [place] [address] PCP - General Family Medicine 04/28/21 documented as of this encounter
--- OUTSIDE RECORDS SUMMARY | 2024-11-26 11:48 | XMS_ITS | Encounter Summary ---
Author Organization [employer] Address [address] [place] [address] 7t [place] [address] Care Team Providers Care Access Lead Name Role Phone Rosalind Cardoso Primary Care Provider [phone] Reason for Visit * Reason Onset Date Comments Durable Medical Equipment 10/23/2022 Encounter Details Date Type Department Care Team ([facility] st Contact Info) Description 10/23/2022 Telephone [facility] MEDICINE [address] [place] [address] Rosalind Cardoso FNP [address] [place] [address] Durable Medical Equipment Social History Tobacco Use [...] for walker was already sent to home care chaplain and pt notified. * Telephone Encounter - Franc Talley - 10/23/2022 2:25 PM EDT Tc from pt requesting a regular Walker for physical therapy program. Pt states that she needs the regular walker with the two wheels in the front and not seat. Please contact pt at [phone] documented in this encounter Plan of Treatment Not on file documented as of this encounter Visit Diagnoses Not on filedocumented in this encounter Care Teams Access Lead Relationship Specialty Start Date End Date Rosalind Cardoso FNP [address] [place] [address] PCP - General Family Medicine 04/28/21 documented as of this encounter
--- OUTSIDE RECORDS SUMMARY | 2024-11-26 11:48 | XMS_ITS | Encounter Summary ---
Author Organization [employer] Address [address] [place] [address] 7t [place] [address] Care Team Providers Care Finishing Trimmer Name Role Phone Rosalind Cardoso Primary Care Provider [phone] Reason for Visit * Reason Onset Date Comments Results 10/25/2023 Encounter Details Date Type Department Care Team ([facility] st Contact Info) Description 10/25/2023 Telephone [facility] MEDICINE [address] [place] [address] Rosalind Cardoso FNP [address] [place] [address] Results Social History Tobacco Use Types Packs/Day [...] results: Labs Date when done: 10/24 Facility: [facility] Labs * Telephone Encounter - Bahman Hutchinson - 10/25/2023 3:16 PM EDT TC from pt requesting call back regarding Results. Type of results: Labs Date when done: 4/19 Facility: [facility] Labs documented in this encounter Plan of Treatment Not on file documented as of this encounter Visit Diagnoses Not on filedocumented in this encounter Additional Health Concerns Assessment Noted Time PHQ-9 Depression Total Score: 0 12/26/19 1:09 PM EDT documented as of this encounter Care Teams Finishing Trimmer Relationship Specialty Start Date End Date Rosalind Cardoso FNP [address] [place] [address] PCP - General Family Medicine 04/28/21 documented as of this encounter
--- OUTSIDE RECORDS SUMMARY | 2024-11-26 11:48 | XMS_ITS | Encounter Summary ---
Author Organization [employer] Address [address] [place] [address] 7 [place] [address] Care Team Providers Care Supervisor Engine Assembly Name Role Phone Rosalind Cardoso Primary Care Provider [phone] Reason for Visit * Reason Onset Date Comments Request For Order(s) 07/30/2023 Encounter Details Date Type Department Care Team ([facility] Contact Info) Description 07/30/2023 Telephone [facility] MED & PEDS [address] [place] [address] Rosalind Cardoso FNP [address] [place] [address] Request For Order(s) Social History Tobacco Use [...] 4:26 PM EST Tc from michelle with [facility] core requesting updated PT orders due to pt complaining of hip and back pain. Will also need OT orders for pain in the hands. Please fax to [phone] (attention: michelle) documented in this encounter Plan [...] documented as of this encounter Care Teams Supervisor Engine Assembly Relationship Specialty Start Date End Date Rosalind Cardoso FNP [address] [place] [phone] PCP - General Family Medicine 04/28/21 documented as of this encounter
--- OUTSIDE RECORDS SUMMARY | 2024-11-26 11:48 | XMS_ITS | Encounter Summary ---
Author Organization [employer] Address [address] [place] [address] 7 [place] [address] Care Team Providers Care Paper Products Printer Name Role Phone Rosalind Cardoso Primary Care Provider [phone] Encounter Details Date Type Department Care Team ([facility] st Contact Info) Description 08/14/2024 Orders Only [facility] MED & PEDS [address] [place], [place] [phone] Rosalind Cardoso FNP [address] [place] [address] Type 2 diabetes mellitus with stage 3 [...] documented as of this encounter Care Teams Paper Products Printer Relationship Specialty Start Date End Date Rosalind Cardoso FNP [address] [place] [phone] PCP - General Family Medicine 04/28/21 documented as of this encounter
--- OUTSIDE RECORDS SUMMARY | 2024-11-26 11:48 | XMS_ITS | Encounter Summary ---
Author Organization [employer] Address [address] [facility] 7t [place] [address] Care Team Providers Care Proofing Machine Operator Name Role Phone Rosalind Cardoso Primary Care Provider [phone] Encounter Details Date Type Department Care Team (Late st Contact Info) Description 10/18/2023 Orders Only [facility] MEDICINE [address] [place] [address] Rosalind Cardoso FNP [address] [place] [address] Type 2 diabetes mellitus with stage 3 [...] Protein 1.49(H) < or = 0.50 mg/dL [facility] Blood Venous blood specimen / Unknown 10/25/2023 1:09 PM EDT 10/25/2023 1:09 PM EDT Rosalind Cardoso [facility] BLOOD ORDERABLES Final Res ult Performing Organization Address [facility] Co de Phone Number [facility] [address] [place] [address] [phone] * Magnesium (10/25/2023 1:09 PM EDT) Pathologist [facility] Magnesium 2.1 1.6 - 2.6 mg/dL [facility] Blood Venous blood specimen / Unknown 10/25/2023 1:09 PM EDT 10/25/2023 1:09 PM EDT Rosalind Cardoso [facility] BLOOD ORDERABLES Final Res ult Performing Organization Address [facility] de Phone Number [facility] [address] [place] [address] [phone] * (ABNORMAL) Comprehensive Metabolic Panel (10/25/2023 1:09 PM EDT) Pathologist [facility] Sodium 143 135 - 145 mmol/L [facility] Potassium 4.1 3.3 - 5.1 mmol/L [facility] Chloride 104 96 - 108 mmol/L [facility] Carbon Dioxide 31(H) 22 - 29 mmol/L [facility] Anion Gap 12 12 - 20 [facility] Urea Nitrogen (BUN) 27(H) 9 - 16 mg/dL [facility] Creatinine, Serum 1.20 0.5 - 1.4 mg/dL [facility] Estimated Glomerular Filt Rate 46 [facility] Comment:NOTE: For -Am erican individuals, multiply the result by 1.210.Chronic Kidney Disease: Estimated GFR < 60 mL/min/1.15l6Lsycaq Kidney Disease: Estimated GFR < 15 mL/min/1.73m2 Glucose 223(H) 60 - 115 mg/dL [facility] Calcium 9.4 8.4 - 10.2 mg/dL [facility] Bilirubin, Total 0.3 0.0 - 1.0 mg/dL [facility] Aspartate Amino Transferase 20 5 - 31 U/L [facility] Alanine Aminotransferase 34(H) 0 - 31 U/L [facility] Total Protein 6.6 6.5 - 8.0 g/dL [facility] Albumin Level 3.2(L) 3.5 - 5.0 g/dL [facility] Alkaline Phosphatase 166(H) 39 - 117 U/L [facility] Blood Venous blood specimen / Unknown 10/25/2023 1:09 PM EDT 10/25/2023 1:09 PM EDT us Rosalind Cardoso METAL CASTING TRADES WORKER LAB BLOOD ORDERABLES Final Res ult [facility] [address] [place] [phone] * (ABNORMAL) CBC auto differential (10/25/2023 1:09 PM EDT) White Blood Count 9.0 4.8 - 10.8 X10*3/uL [facility] Red Blood Count 4.91 4.20 - 5.50 X10*6/uL [facility] Hemoglobin 9.5(L) 12.0 - 16.0 g/dl [facility] Hematocrit 32.4(L) 37.0 - 47.0 % [facility] Mean Corpuscular Volume 66.0(L) 80.0 - 98.0 fL [facility] Mean Corpuscular Hemoglobin 19.3(L) 27.0 - 33.0 pg [facility] Mean Corpuscular HGB Conc 29.3(L) 31.0 - 35.0 g/dl [facility] Red Cell Distribution Width 17.2(H) 11.0 - 16.0 % [facility] Platelet Count 442(H) 160 - 400 X10*3/uL [facility] Mean Platelet Volume 11.3 9.4 - 12.3 fL [facility] Neutrophils Percent Auto 60.9 45 - 73 % [facility] Imm Gran Pct Auto 0.4 0.0 - 0.4 % [facility] Lymphocytes Percent Auto 25.2 20 - 40 % [facility] Monocytes Percent Auto 8.7 2 - 11 % [facility] Eosinophils Percent Auto 4.1(H) 0 - 4 % [facility] Basophils Percent Auto 0.7 0 - 2 % [facility] NRBC Pct Auto 0.0 0.0 - 0.2 /100WBC [facility] Neutrophils Absolute Auto 5.5 2.0 - 8.3 x10*3/uL [facility] Imm Gran Abs Auto 0.04(H) 0.00 - 0.03 X10*3/uL [facility] Lymphocytes Absolute Auto 2.3 1.2 - 4.9 X10*3/uL [facility] Monocytes Absolute Auto 0.8 0.1 - 1.2 X10*3/uL [facility] Eosinophils Absolute Auto 0.4 0.0 - 0.4 X10*3/uL [facility] Basophils Absolute Auto 0.1 0.0 - 0.2 X10*3/uL [facility] NRBC Abs Auto 0.000 0.0 - 0.012 X10*3/uL [facility] Blood Venous blood specimen / Unknown 10/25/2023 1:09 PM EDT 10/25/2023 1:09 PM EDT us Rosalind Cardoso METAL CASTING TRADES WORKER LAB BLOOD ORDERABLES Final Res ult [facility] [address] [place] [phone] [phone] documented in this encounter Visit Diagnoses Diagnosis Type 2 diabetes mellitus with stage 3 chronic kidney disease, with long-term current use of insulin, unspecified whether stage 3a or 3b CKD (CMS/[facility]) Myalgia Unspecified myalgia and myositis documented in this encounter Additional Health Concerns Assessment Noted Time PHQ-9 Depression Total Score: 0 12/26/19 23 1:09 PM EDT documented as of this encounter Care Teams Proofing Machine Operator Relationship Specialty Start Date End Date Rosalind Cardoso FNP [address] [place] [address] PCP - General Family Medicine 04/28/21 documented as of this encounter
--- OUTSIDE RECORDS SUMMARY | 2024-11-26 11:48 | XMS_ITS | Encounter Summary ---
Author Organization [employer] Address [address] [place] [address] 7 [place] [address] Care Team Providers Care Manager Trade Marketing Name Role Phone Rosalind Cardoso Primary Care Provider [phone] Reason for Visit * Reason Onset Date Comments Results 08/06/2023 Encounter Details Date Type Department Care Team ([facility] Contact Info) Description 08/06/2023 Telephone [facility] MED & PEDS [address] [place] [address] Rosalind Cardoso FNP [address] [place] [address] Results Social History Tobacco Use Types Packs/Day [...] results: labs Date when done: 08/06 Facility: [facility] Please contact pt at [phone] documented in this encounter Plan of Treatment Not on file documented as of this encounter Visit Diagnoses Not on filedocumented in this encounter Additional Health Concerns Assessment Noted Time PHQ-9 Depression Total Score: 0 12/26/19 23 1:09 PM EDT documented as of this encounter Care Teams Manager Trade Marketing Relationship Specialty Start Date End Date Rosalind Cardoso FNP [address] [place] [address] PCP - General Family Medicine 04/28/21 documented as of this encounter
--- OUTSIDE RECORDS SUMMARY | 2024-11-26 11:48 | XMS_ITS | Encounter Summary ---
Author Organization [employer] Address [address] [place] [address] 7 [place] [address] Care Team Providers Care Rope Coiling Machine Operator Name Role Phone Rosalind Cardoso Primary Care Provider [phone] Reason for Visit * Reason Onset Date Comments medication request 10/22/2023 Encounter Details Date Type Department Care Team ([facility] st Contact Info) Description 10/22/2023 Telephone [facility] [address] [place] [address] Rosalind Carodso FNP [address] [place] [address] medication request Social History Tobacco Use Types [...] medication for pneumonia stated Pain Management from [facility] call her to advise of dx documented in this encounter Plan of Treatment Not on file documented as of this encounter Visit Diagnoses Not on filedocumented in this encounter Additional Health Concerns Assessment Noted Time PHQ-9 Depression Total Score: 0 12/26/19 23 1:09 PM EDT documented as of this encounter Care Teams Rope Coiling Machine Operator Relationship Specialty Start Date End Date Rosalind Cardoso FNP [address] [place] [address] PCP - General Family Medicine 04/28/21 documented as of this encounter
--- OUTSIDE RECORDS SUMMARY | 2024-11-26 11:48 | XMS_ITS | Encounter Summary ---
Author Organization [employer] Address [address] [facility] 7t [place] [address] Care Team Providers Care Civil Transportation Engineer Name Role Phone Rosalind Cardoso Primary Care Provider [phone] Encounter Details Date Type Department Care Team (Late st Contact Info) Description 11/01/2023 Orders Only [facility] [address] [place] [address] Rosalind Cardoso FNP [address] [place] [address] Type 2 diabetes mellitus with stage 3 [...] whether stage 3a or 3b CKD ([facility]/HCC) Myalgia documented in this encounter Results * (ABNORMAL) CBC auto differential (11/01/2023 3:58 PM EDT) White Blood Count 10.2 4.8 - 10.8 X10*3/uL [facility] Red Blood Count 5.64(H) 4.20 - 5.50 X10*6/uL [facility] Hemoglobin 10.9(L) 12.0 - 16.0 g/dl [facility] Hematocrit 36.9(L) 37.0 - 47.0 % [facility] Mean Corpuscular Volume 65.4(L) 80.0 - 98.0 fL [facility] Mean Corpuscular Hemoglobin 19.3(L) 27.0 - 33.0 pg [facility] Mean Corpuscular HGB Conc 29.5(L) 31.0 - 35.0 g/dl [facility] Red Cell Distribution Width 18.8(H) 11.0 - 16.0 % [facility] Platelet Count 469(H) 160 - 400 X10*3/uL [facility] Mean Platelet Volume 10.4 9.4 - 12.3 fL [facility] Neutrophils Percent Auto 66.7 45 - 73 % [facility] Imm Gran Pct Auto 0.3 0.0 - 0.4 % [facility] Lymphocytes Percent Auto 22.9 20 - 40 % [facility] Monocytes Percent Auto 6.2 2 - 11 % [facility] Eosinophils Percent Auto 3.3 0 - 4 % [facility] Basophils Percent Auto 0.6 0 - 2 % [facility] NRBC Pct Auto 0.2 0.0 - 0.2 /100WBC [facility] Neutrophils Absolute Auto 6.8 2.0 - 8.3 x10*3/uL [facility] Imm Gran Abs Auto 0.03 0.00 - 0.03 X10*3/uL [facility] Lymphocytes Absolute Auto 2.3 1.2 - 4.9 X10*3/uL [facility] Monocytes Absolute Auto 0.6 0.1 - 1.2 X10*3/uL [facility] Eosinophils Absolute Auto 0.3 0.0 - 0.4 X10*3/uL [facility] Basophils Absolute Auto 0.1 0.0 - 0.2 X10*3/uL [facility] NRBC Abs Auto 0.020(H) 0.0 - 0.012 X10*3/uL [facility] Blood Venous blood specimen / Unknown 11/01/2023 3:58 PM EDT 11/01/2023 5:40 PM EDT Rosalind Cardsoo GASTROENTEROLOGY TEACHER LAB BLOOD ORDERABLES Final Res ult Performing Organization Address [facility]/ZIP Co de Phone Number [facility] [address] [place] [phone] * (ABNORMAL) Sed Rate by Modified Javierren (11/01/2023 3:53 PM EDT) Pathologist [facility] Erythrocyte Sedimentation Rate 28(H) 0 - 20 MM/HR [facility] Comment:Patients with polycy themia and many hemoglobin abnormalitiesmay have depressed sed rates whereas patients with anemiamay have elevated sed rates. Blood Venous blood specimen / Unknown 11/01/2023 3:53 PM EDT 11/01/2023 5:40 PM EDT Rosalind Cardoso GASTROENTEROLOGY TEACHER LAB BLOOD ORDERABLES Final Res ult Performing Organization Address [facility]/ZIP Co de Phone Number [facility] [address] [place] [phone] * C-reactive Protein (11/01/2023 3:53 PM EDT) Pathologist [facility] C Reactive Protein 0.48 < or = 0.50 mg/dL [facility] Blood Venous blood specimen / Unknown 11/01/2023 3:53 PM EDT 11/01/2023 5:40 PM EDT Rosalind Cardoso GASTROENTEROLOGY TEACHER LAB BLOOD ORDERABLES Final Res ult Performing Organization Address [facility] Co de Phone Number [facility] [address] [place] [phone] * Magnesium (11/01/2023 3:53 PM EDT) Magnesium 1.7 1.6 - 2.6 mg/dL [facility] Blood Venous blood specimen / Unknown 11/01/2023 3:53 PM EDT 11/01/2023 5:40 PM EDT Rosalind Cardoso [facility] LAB BLOOD ORDERABLES Final Res ult Performing Organization Address [facility] Co de Phone Number [facility] [address] [place] [phone] * Prothrombin Time-INR (11/01/2023 3:53 PM EDT) Prothrombin Time 12.3 11.1 - 13.3 SEC [facility] INTERNATIONAL NORM RATIO 1.0 0.9 - 1.1 [facility] Comment:INTERNATIONAL NORMAL IZED RATIO (INR) [...] EDT 11/01/2023 5:40 PM EDT us Rosalind Phalen GASTROENTEROLOGY TEACHER LAB BLOOD ORDERABLES Final Res ult Performing Organization Address City/[facility]/ZIP Co de Phone Number [facility] [address] [place] [phone] * (ABNORMAL) Comprehensive Metabolic Panel (11/01/2023 3:53 PM EDT) Sodium 140 135 - 145 mmol/L [facility] Potassium 3.9 3.3 - 5.1 mmol/L [facility] Chloride 102 96 - 108 mmol/L [facility] Carbon Dioxide 30(H) 22 - 29 mmol/L [facility] Anion Gap 12 12 - 20 [facility] Urea Nitrogen (BUN) 22(H) 9 - 16 mg/dL [facility] Creatinine, Serum 1.64(H) 0.5 - 1.4 mg/dL [facility] Estimated Glomerular Filt Rate 32 [facility] Comment:NOTE: For -Am erican individuals, multiply the result by 1.210.Chronic Kidney Disease: Estimated GFR < 60 mL/min/[id number] Kidney Disease: Estimated GFR < 15 mL/min/1.73m2 Glucose 237(H) 60 - 115 mg/dL [facility] Calcium 9.3 8.4 - 10.2 mg/dL [facility] Bilirubin, Total 0.3 0.0 - 1.0 mg/dL [facility] Aspartate Amino Transferase 20 5 - 31 U/L [facility] Alanine Aminotransferase 26 0 - 31 U/L [facility] Total Protein 6.8 6.5 - 8.0 g/dL [facility] Albumin Level 3.3(L) 3.5 - 5.0 g/dL [facility] Alkaline Phosphatase 135(H) 39 - 117 U/L [facility] Blood Venous blood specimen / Unknown 11/01/2023 3:53 PM EDT 11/01/2023 5:40 PM EDT Rosalind Cardoso [facility] LAB BLOOD ORDERABLES Final Res ult [facility] [address] [place] [phone] documented in this encounter Visit Diagnoses Diagnosis Type 2 diabetes mellitus with stage 3 chronic kidney disease, with long-term current use of insulin, unspecified whether stage 3a or 3b CKD ([facility]) Myalgia Unspecified myalgia and myositis documented in this encounter Additional Health Concerns Assessment Noted Time PHQ-9 Depression Total Score: 0 12/26/19 23 1:09 PM EDT documented as of this encounter Care Teams Civil Transportation Engineer Relationship Specialty Start Date End Date Rosalind Cardoso FNP [address] [place] [address] PCP - General Family Medicine 04/28/21 documented as of this encounter
--- OUTSIDE RECORDS SUMMARY | 2024-11-26 11:48 | XMS_ITS | Encounter Summary ---
Author Organization [employer] Address [address] [place] [address] [address]t [place] [address] Care Team Providers Care Passenger Attendant Name Role Phone Rosalind Cardoso Primary Care Provider [phone] Reason for Visit * Reason Onset Date Comments Referral 10/10/2023 Encounter Details Date Type Department Care Team ([facility] st Contact Info) Description 10/10/2023 Telephone [facility] MED[facility]INE [address] [place] [address] Rosalind Cardoso FNP [address] [place] [address] Referral Social History Tobacco Use Types Packs/Day [...] any questions you can contact pt at [phone]. documented in this encounter Plan of Treatment Not on file documented as of this encounter Visit Diagnoses Not on filedocumented in this encounter Additional Health Concerns Assessment Noted Time PHQ-9 Depression Total Score: 0 12/26/19 23 1:09 PM EDT documented as of this encounter Care Teams Passenger Attendant Relationship Specialty Start Date End Date Rosalind Cardoso FNP [address] [place] [phone] PCP - General Family Medicine 04/28/21 documented as of this encounter
--- OUTSIDE RECORDS SUMMARY | 2024-11-26 11:48 | XMS_ITS | Encounter Summary ---
Author Organization [employer] Address [address] [facility] 7t [place] [address] Care Team Providers Care Hydraulic Boom Operator Name Role Phone Rosalind Cardoso Primary Care Provider [phone] Encounter Details Date Type Department Care Team (Late st Contact Info) Description 11/15/2023 Orders Only [facility] MEDICINE [address] [place] [address] Rosalind Cardoso FNP [address] [place] [address] Type 2 diabetes mellitus with stage 3 [...] * (ABNORMAL) Sed Rate by Modified Mangoergren (11/20/2023 9:36 AM EDT) Erythrocyte Sedimentation Rate 30(H) 0 - 20 MM/HR [facility] Comment:Patients with polycy themia and many hemoglobin abnormalitiesmay have depressed sed rates whereas patients with anemiamay have elevated sed rates. Blood Venous blood specimen / Unknown 11/20/2023 9:36 AM EDT 11/20/2023 9:36 AM EDT Rosalind Cardoso CONCRETE SCULPTOR LAB BLOOD ORDERABLES Final Res ult Performing Organization Address [facility] Co de Phone Number [facility] [address] [place] [phone] * (ABNORMAL) C-reactive Protein (11/20/2023 9:36 AM EDT) C Reactive Protein 1.26(H) < or = 0.50 mg/dL [facility] Blood Venous blood specimen / Unknown 11/20/2023 9:36 AM EDT 11/20/2023 9:36 AM EDT Rosalind Cardoso CONCRETE SCULPTOR LAB BLOOD ORDERABLES Final Res ult Performing Organization Address [facility] Co de Phone Number [facility] [address] [place] [phone] * Magnesium (11/20/2023 9:36 AM EDT) Magnesium 1.8 1.6 - 2.6 mg/dL [facility] Blood Venous blood specimen / Unknown 11/20/2023 9:36 AM EDT 11/20/2023 9:36 AM EDT Rosalind Phaledna CONCRETE SCULPTOR LAB BLOOD ORDERABLES Final Res ult Performing Organization Address [facility] Co de Phone Number [facility] [address] [place] [phone] * Prothrombin Time-INR (11/20/2023 9:36 AM EDT) Prothrombin Time 11.6 11.1 - 13.3 SEC [facility] INTERNATIONAL NORM RATIO 1.0 0.9 - 1.1 [facility] Comment:INTERNATIONAL NORMAL IZED RATIO (INR) [...] EDT 11/20/2023 9:36 AM EDT Rosalind Cardoso CONCRETE SCULPTOR LAB BLOOD ORDERABLES Final Res ult [facility] [address] [place] [phone] * (ABNORMAL) Comprehensive Metabolic Panel (11/20/2023 9:36 AM EDT) [facility] Sodium 139 135 - 145 mmol/L [facility] Potassium 4.0 3.3 - 5.1 mmol/L [facility] Chloride 102 96 - 108 mmol/L [facility] Carbon Dioxide 28 22 - 29 mmol/L [facility] Anion Gap 13 12 - 20 [facility] Urea Nitrogen (BUN) 40(H) 9 - 16 mg/dL [facility] Creatinine, Serum 1.51(H) 0.5 - 1.4 mg/dL [facility] Estimated Glomerular Filt Rate 35 [facility] Comment:NOTE: For -Am erican individuals, multiply the result by 1.210.Chronic Kidney Disease: Estimated GFR < 60 mL/min/[id number] Kidney Disease: Estimated GFR < 15 mL/min/1.73m2 Glucose 214(H) 60 - 115 mg/dL [facility] Calcium 9.7 8.4 - 10.2 mg/dL [facility] Bilirubin, Total 0.2 0.0 - 1.0 mg/dL [facility] Aspartate Amino Transferase 15 5 - 31 U/L [facility] Alanine Aminotransferase 11 0 - 31 U/L [facility] Total Protein 7.0 6.5 - 8.0 g/dL [facility] Albumin Level 3.4(L) 3.5 - 5.0 g/dL [facility] Alkaline Phosphatase 112 39 - 117 U/L [facility] Blood Venous blood specimen / Unknown 11/20/2023 9:36 AM EDT 11/20/2023 9:36 AM EDT us Rosalind MORELOS LAB BLOOD ORDERABLES Final Res ult [facility] [address] [place] [phone] documented in this encounter Visit Diagnoses Diagnosis Type 2 diabetes mellitus with stage 3 chronic kidney disease, with long-term current use of insulin, unspecified whether stage 3a or 3b CKD ([facility]) Myalgia Unspecified myalgia and myositis documented in this encounter Additional Health Concerns Assessment Noted Time PHQ-9 Depression Total Score: 0 12/26/19 23 1:09 PM EDT documented as of this encounter Care Teams Hydraulic Boom Operator Relationship Specialty Start Date End Date Rosalind Cardoso FNP [address] [place] [address] PCP - General Family Medicine 04/28/21 documented as of this encounter
--- OUTSIDE RECORDS SUMMARY | 2024-11-26 11:48 | XMS_ITS | Encounter Summary ---
Author Organization [employer] Address [address] [facility] 7t [place] [address] Care Team Providers Care Outside Industrial Sales Representative Name Role Phone Rosalind Cardoso Primary Care Provider [phone] Encounter Details Date Type Department Care Team (Late st Contact Info) Description 10/04/2023 Orders Only [facility] [address] [place] [address] Rosalind Cardoso FNP [address] [place] [address] Type 2 diabetes mellitus with stage 3 [...] unspecified whether stage 3a or 3b CKD ([facility]) Myalgia PROTHROMBIN TIME-INR Routine 10/25/2023 1:09 PM EDT Type 2 diabetes mellitus with stage 3 chronic kidney disease, with long-term current use of insulin, unspecified whether stage 3a or 3b CKD ([facility]/HCC) Myalgia documented in this encounter Results * (ABNORMAL) Sed Rate by Modified Westergren (10/25/2023 1:09 PM EDT) Erythrocyte Sedimentation Rate 46(H) 0 - 20 MM/HR [facility] Comment:Patients with polycy themia and many hemoglobin abnormalitiesmay have depressed sed rates whereas patients with anemiamay have elevated sed rates. Blood Venous blood specimen / Unknown 10/25/2023 1:09 PM EDT 10/25/2023 1:09 PM EDT us Rosalind Cardoso [employer] LAB BLOOD ORDERABLES Final Res ult [facility] [address] [place] [phone] * Prothrombin Time-INR (10/25/2023 1:09 PM EDT) Prothrombin Time 12.3 11.1 - 13.3 SEC [facility] INTERNATIONAL NORM RATIO 1.0 0.9 - 1.1 [facility] Comment:INTERNATIONAL NORMAL IZED RATIO [...] MORELOS LAB BLOOD ORDERABLES Final Res ult [facility] [address] [place] [phone] [phone] documented in this encounter Visit Diagnoses [...] documented as of this encounter Care Teams Outside Industrial Sales Representative Relationship Specialty Start Date End Date Rosalind Cardoso FNP [address] [place] [address] PCP - General Family Medicine 04/28/21 documented as of this encounter
--- OUTSIDE RECORDS SUMMARY | 2024-11-26 11:48 | XMS_ITS | Encounter Summary ---
Author Organization [employer] Address [address] [facility] 7t [place] [address] Care Team Providers Care Secondary School Special Ed Teacher Name Role Phone Rosalind Cardoso Primary Care Provider [phone] Encounter Details Date Type Department Care Team ([facility] st Contact Info) Description 09/18/2023 Telephone [facility] MEDICINE [address] [place] [address] Rosalind Cardoso FNP [address] [place] [address] Social History Tobacco Use Types Packs/Day Years [...] a call for for televisit with pcp, consumer loan underwriter didn't see anything tasked. Please contact pt at [phone]. documented in this encounter Plan of Treatment Not on file documented as of this encounter Visit Diagnoses Not on filedocumented in this encounter Additional Health Concerns Assessment Noted Time PHQ-9 Depression Total Score: 0 12/26/19 23 1:09 PM EDT documented as of this encounter Care Teams [employer] Special Ed Teacher Relationship Specialty Start Date End Date Rosalind Cardoso FNP [address] [place] [address] PCP - General Family Medicine 04/28/21 documented as of this encounter
--- OUTSIDE RECORDS SUMMARY | 2024-11-26 11:48 | XMS_ITS | Encounter Summary ---
Author Organization [employer] Address [address] [facility] 7t [place] [address] Care Team Providers Care Environmental Science Professor Name Role Phone Rosalind Cardoso Primary Care Provider [phone] Encounter Details Date Type Department Care Team ([facility] st Contact Info) Description 10/29/2023 Telephone [facility] MEDICINE [address] [place] [address] Rosalind Cardoso FNP [address] [place] [address] Social History Tobacco Use Types Packs/Day Years [...] documented as of this encounter Care Teams Environmental Science Professor Relationship Specialty Start Date End Date Rosalind Cardoso FNP [address] [place] [address] PCP - General Family Medicine 04/28/21 documented as of this encounter
--- OUTSIDE RECORDS SUMMARY | 2024-11-26 11:48 | XMS_ITS | Encounter Summary ---
Author Organization [employer] Address [address] [place] [address] [address] [place] [address] Care Team Providers Care Hand Molder And Caster Name Role Phone Rosalind Cardoso Primary Care Provider [phone] Reason for Visit * Reason Comments Med Refill Encounter Details Date Type Department Care Team ([facility] Contact Info) Description 10/23/2022 Refill [facility] MEDICINE [address] [place] [address] Name, MD Jaiden [address] [place] [address] Social History Tobacco Use Types Packs/Day Years [...] on filedocumented in this encounter Care Teams Hand Molder And Caster Relationship Specialty Start Date End Date Rosalind Cardoso FNP [address] [place] [address] PCP - General Family Medicine 04/28/21 documented as of this encounter
--- OUTSIDE RECORDS SUMMARY | 2024-11-26 11:48 | XMS_ITS | Encounter Summary ---
Author Organization [employer] Address [address] [facility] 7t [place] [address] Care Team Providers Care Hand Stapler Name Role Phone Rosalind Cardoso Primary Care Provider [phone] Encounter Details Date Type Department Care Team (Late st Contact Info) Description 11/29/2023 Orders Only [facility] [address] [place] [address] Rosalind Cardoso FNP [address] [place] [address] Type 2 diabetes mellitus with stage 3 [...] EDT Narrative 12/27/2023 3:26 PM EDT ? [facility] [place] ? [address] ?[place] [address] ? Mammography Report ? Signed ? Patient: Manus,Mitra ?MR#: [id number] ? : 1965 ?Acct:[id number] ? Age/Sex: 58 / F ?ADM Date: 11/28/ ? Loc: HO.MAMMO ? Attending Dr: Rosalind Cardoso INSTRUCTOR PRIVATE ? Ordering Physician: Janae,Rosalind INSTRUCTOR PRIVATE ?Results: 1Negat ?? aiden ? Date of Service: 11/28/ ?Follow Up: 1 Year From Orig ?? inal Mammogram ? Procedure(s): MM tomosynthesis screening BI ?? Accession Number(s): [id number] ? cc: Roslaind Cardoso INSTRUCTOR PRIVATE ? EXAMINATION: ?? MM SCREENING DIGITAL BREAST [...] 1522 ? DD/ 1440 ? TD/TT: ? Bread Pan Greaser: ? Procedure Note Mauri, Mily - 12/27/2023 [facility] [address] [place], [place] [address] Mammography Report Signed Patient: Dany Parish#: [id number] : 1965Acct:[id number] Age/Sex: 58 / FADM Date: 11/29/23 Loc: MAMMO Attending Dr: Rosalind Cardoso INSTRUCTOR PRIVATE Ordering Physician: Rosalind Cardoso FNPResults: 1Negat aiden Date of Service: 11/29/23Follow Up: 1 Year From Orig ina Mammogram Procedure(s): MM tomosynthesis screening BI Accession Number(s): [id number] cc: Rosalind Cardoso EXAMINATION: MM SCREENING DIGITAL [...] in OV> 12/27/23 1522 DD/ 1440 TD/TT: Bread Pan Greaser: Rosalind MORELOS IMG BI PROCEDURES Final Result * (ABNORMAL) Sed Rate by Modified Marlene (11/29/2023 1:21 PM EDT) Erythrocyte Sedimentation Rate 30(H) 0 - 20 MM/HR [facility] Comment:Patients with polycy themia and many hemoglobin abnormalitiesmay have depressed sed rates whereas patients with anemiamay have elevated sed rates. Blood Venous blood specimen / Unknown 11/29/2023 1:21 PM EDT 11/29/2023 1:21 PM EDT us Rosalind Cardoso INSTRUCTOR PRIVATE LAB BLOOD ORDERABLES Final Res ult [facility] [address] [place] [phone] * C-reactive Protein (11/29/2023 1:21 PM EDT) Pathologist [facility] C Reactive Protein 0.34 < or = 0.50 mg/dL [facility] Blood Venous blood specimen / Unknown 11/29/2023 1:21 PM EDT 11/29/2023 1:21 PM EDT Rosalind Cardoso INSTRUCTOR PRIVATE LAB BLOOD ORDERABLES Final Res ult Performing Organization Address [facility] Co de Phone Number [facility] [address] [place] [phone] * Magnesium (11/29/2023 1:21 PM EDT) [facility] Magnesium 1.8 1.6 - 2.6 mg/dL [facility] Blood Venous blood specimen / Unknown 11/29/2023 1:21 PM EDT 11/29/2023 1:21 PM EDT Rosalind Cardoso [facility] LAB BLOOD ORDERABLES Final Res ult Performing Organization Address [facility] de Phone Number [facility] [address] [place] [phone] * Prothrombin Time-INR (11/29/2023 1:21 PM EDT) [facility] Prothrombin Time 11.8 11.1 - 13.3 SEC [facility] INTERNATIONAL NORM RATIO 1.0 0.9 - 1.1 [facility] Comment:INTERNATIONAL NORMAL IZED RATIO (INR) [...] 11/29/2023 1:21 PM EDT us Rosalind Cardoso INSTRUCTOR PRIVATE LAB BLOOD ORDERABLES Final Res ult [facility] [address] [place] [address] [phone] * (ABNORMAL) Comprehensive Metabolic Panel (11/29/2023 1:21 PM EDT) Sodium 140 135 - 145 mmol/L [facility] Potassium 3.6 3.3 - 5.1 mmol/L [facility] Chloride 103 96 - 108 mmol/L [facility] Carbon Dioxide 28 22 - 29 mmol/L [facility] Anion Gap 13 12 - 20 [facility] Urea Nitrogen (BUN) 23(H) 9 - 16 mg/dL [facility] Creatinine, Serum 1.06 0.5 - 1.4 mg/dL [facility] Estimated Glomerular Filt Rate 53 [facility] Comment:NOTE: For -Am erican individuals, multiply the result by 1.210.Chronic Kidney Disease: Estimated GFR < 60 mL/min/1.55x5Mhdkon Kidney Disease: Estimated GFR < 15 mL/min/1.73m2 Glucose 165(H) 60 - 115 mg/dL [facility] Calcium 9.5 8.4 - 10.2 mg/dL [facility] Bilirubin, Total 0.3 0.0 - 1.0 mg/dL [facility] Aspartate Amino Transferase 16 5 - 31 U/L [facility] Alanine Aminotransferase 13 0 - 31 U/L [facility] Total Protein 6.8 6.5 - 8.0 g/dL [facility] Albumin Level 3.3(L) 3.5 - 5.0 g/dL [facility] Alkaline Phosphatase 94 39 - 117 U/L [facility] Blood Venous blood specimen / Unknown 11/29/2023 1:21 PM EDT 11/29/2023 1:21 PM EDT us Rosalind Cardoso INSTRUCTOR PRIVATE LAB BLOOD ORDERABLES Final Res ult [facility] [address] [place] [address] [phone] * (ABNORMAL) CBC auto differential (11/29/2023 1:21 PM EDT) White Blood Count 8.7 4.8 - 10.8 X10*3/uL [facility] Red Blood Count 5.99(H) 4.20 - 5.50 X10*6/uL [facility] Hemoglobin 11.3(L) 12.0 - 16.0 g/dl [facility] Hematocrit 37.5 37.0 - 47.0 % [facility] Mean Corpuscular Volume 62.6(L) 80.0 - 98.0 fL [facility] Mean Corpuscular Hemoglobin 18.9(L) 27.0 - 33.0 pg [facility] Mean Corpuscular HGB Conc 30.1(L) 31.0 - 35.0 g/dl [facility] Red Cell Distribution Width 16.4(H) 11.0 - 16.0 % [facility] Platelet Count 310 160 - 400 X10*3/uL [facility] Mean Platelet Volume 11.1 9.4 - 12.3 fL [facility] Neutrophils Percent Auto 56.2 45 - 73 % [facility] Imm Gran Pct Auto 0.2 0.0 - 0.4 % [facility] Lymphocytes Percent Auto 32.5 20 - 40 % [facility] Monocytes Percent Auto 7.6 2 - 11 % [facility] Eosinophils Percent Auto 2.8 0 - 4 % [facility] Basophils Percent Auto 0.7 0 - 2 % [facility] NRBC Pct Auto 0.0 0.0 - 0.2 /100WBC [facility] Neutrophils Absolute Auto 4.9 2.0 - 8.3 x10*3/uL [facility] Imm Gran Abs Auto 0.02 0.00 - 0.03 X10*3/uL [facility] Lymphocytes Absolute Auto 2.8 1.2 - 4.9 X10*3/uL [facility] Monocytes Absolute Auto 0.7 0.1 - 1.2 X10*3/uL [facility] Eosinophils Absolute Auto 0.2 0.0 - 0.4 X10*3/uL [facility] Basophils Absolute Auto 0.1 0.0 - 0.2 X10*3/uL [facility] NRBC Abs Auto 0.000 0.0 - 0.012 X10*3/uL [facility] Blood Venous blood specimen / Unknown 11/29/2023 1:21 PM EDT 11/29/2023 1:21 PM EDT us Rosalind MORELOS LAB BLOOD ORDERABLES Final Res ult Performing Organization Address City/State/[facility] Co de Phone Number [facility] [address] [place] [phone] documented in this encounter Visit Diagnoses [...] documented as of this encounter Care Teams Hand Stapler Relationship Specialty Start Date End Date Rosalind Cardoso FNP [address] [place] [phone] PCP - General Family Medicine 04/28/21 documented as of this encounter
--- OUTSIDE RECORDS SUMMARY | 2024-11-26 11:48 | XMS_ITS | Encounter Summary ---
Author Organization [employer] Address [address] [place] [address] 7 [place] [address] Care Team Providers Care Short Order Fry Cook Name Role Phone Rosalind Cardoso Primary Care Provider [phone] Reason for Visit * Reason Onset Date Comments Durable Medical Equipment 09/14/2022 Encounter Details Date Type Department Care Team ([facility] st Contact Info) Description 09/14/2022 Telephone [facility] MEDICINE [address] [place] [address] Rosalind Cardoso FNP [address] [place] [address] Durable Medical Equipment Social History Tobacco Use [...] for signature and will be emailed to companion caregiver Leonard for processing * Telephone Encounter - Franc Talley - 09/14/2022 11:52 AM EST Tc from pt requesting a call back, pt claims that the visiting care takers advised that patient needs a thick cushion for her wheel chair and a New walker with two wheels because the other walker is to fast for the pt. If any questions please contact pt at [phone] documented in this encounter Plan of Treatment Not on file documented as of this encounter Visit Diagnoses Not on filedocumented in this encounter Care Teams Short Order Fry Cook Relationship Specialty Start Date End Date Rosalind Cardoso FNP [address] [place] [phone] PCP - General Family Medicine 04/28/21 documented as of this encounter
--- OUTSIDE RECORDS SUMMARY | 2024-11-26 11:48 | XMS_ITS | Clinical Summary ---
Author Organization [address] [place] [address] Address [address] [place] [address] Phone Care Team Providers Care Fabrication Supervisor Name Role Phone Physician, Pcp Unknown [...] Diagnosed Date DM2 (diabetes mellitus, type 2) ([facility] V24, CM /[facility] V28) 10/22/2022 Hx of BKA, left ([facility] V24, [facility] V28) 10/22 Hyperlipidemia 10/22/2022 Hypertension 10/22/2022 PAD (peripheral artery disease) ([facility] V24) Vitamin D deficiency 10/22/2022 Encounters Date Type Department Care Team Description 10/27/2024 12:00 PM EDT Ancillary Procedure [facility] [address] [facility] [address] [place] [phone] PAD (peripheral artery disease) ([facility] V24) 10/05/2024 3:00 PM EDT Office Visit Vascular Surgery - [place] [address] [facility] [address] [place] [phone] Nu Holt PA PAD (peripheral artery disease) ([facility] V24) (Primary Dx) from Last 3 Months Surgical History Surgery Date Site/Laterality Comments OTHER SURGICAL HISTORY 09/01/2022 Left PROCEDURE: OK AMPUTATION LEG THROUGH TIBIA&FIBULA Social History Tobacco [...] PM EDT Office Visit Vascular Surgery - [place] [address] [place] [address] Oralia Borden MD [address] [facility] [address] [place] [address] 01/19/2025 9:15 AM EDT Office Visit Orthopedic Surgery - [place] [address] [facility] [address] [place] [address] Raheel Quijano, DPM [address] [facility] [address] [place] [address] Health Maintenance Due Date Last Done Comments [...] EDT PAD (peripheral artery disease) (CMS/[facility] V24) from Last 3 Months Results * Vascular US duplex lower extremity arteries bilateral with MANUEL (10/27/2024 1:17 PM EDT) Left ELECTRONICS RECYCLER prox sys PSV 104 cm/s CV VAS [...] PSV 93 cm/s CV VAS LAB Right ELECTRONICS RECYCLER prox sys PSV 122 cm/s CV VAS [...] flow. The popliteal artery has monophasic flow. Sheet Rock Sander Details A edmonds scale, color and doppler analysis ultrasound was performed. During the study longitudinal views were obtained. Pulsed wave doppler was performed. us Nu ENCISO CV VASCULAR PROCEDURES Final Result from Last 3 Months Insurance [employer] MEDICARE Member Subscriber Plan / Payer (Ef fective 2016-Present) Name:Mitra Parish Relation to Subscriber:Self Name:Mitra Parish Payer ID:[id number] Group ID:[id number] Type:Not on file Address: [place] [address] [address] [id number] Advance Directives Documents on File Type Date Recorded Patient Infant Teacher Expl anation Health Care Decision (hx) 09/04/2022 AD REINOSO DIRECTIVE Health Care Decision (hx) 09/04/2022 AD REINOSO DIRECTIVE Care Teams Fabrication Supervisor Relationship Specialty Start Date End Date Physician, Pcp Unknown PCP - General 07/27/24
--- OUTSIDE RECORDS SUMMARY | 2024-11-26 11:48 | XMS_ITS | Encounter Summary ---
Author Organization [employer] Address [address] [place] [address] 7 [place] [address] Care Team Providers Care College Professor Name Role Phone Rosalind Cardoso Primary Care Provider [phone] Reason for Visit * Reason Onset Date Comments Chart Prep 11/25/2024 Encounter Details Date Type Department Care Team ([facility] st Contact Info) Description 11/25/2024 Telephone [facility] MEDICINE [address] [place] [address] Rosalind Cardoso FNP [address] [place] [address] Chart Prep Social History Tobacco Use Types [...] documented as of this encounter Care Teams College Professor Relationship Specialty Start Date End Date Rosalind Cardoso FNP [address] [place] [address] PCP - General Family Medicine 04/28/21 documented as of this encounter
--- OUTSIDE RECORDS SUMMARY | 2024-11-26 11:48 | XMS_ITS | Encounter Summary ---
Author Organization [employer] Address [address] [place] [address] 7 [place] [address] Care Team Providers Care Youth Worker Name Role Phone Rosalind Cardoso Primary Care Provider [phone] Encounter Details Date Type Department Care Team (Late st Contact Info) Description 08/21/2024 Orders Only [facility] MED[facility]INE [address] [place] [address] Rosalind Cardoso FNP [address] [place] [address] Type 2 diabetes mellitus with stage 3 [...] documented as of this encounter Care Teams Youth Worker Relationship Specialty Start Date End Date Rosalind Cardoso FNP [address] [place] [address] PCP - General Family Medicine 04/28/21 documented as of this encounter
--- OUTSIDE RECORDS SUMMARY | 2024-11-26 11:49 | XMS_ITS | Encounter Summary ---
Author Organization [employer] Address [address] [facility] 7t [place] [address] Care Team Providers Care Supervisor Waterproofing Name Role Phone Rosalind Cardoso Primary Care Provider [phone] Encounter Details Date Type Department Care Team (Late st Contact Info) Description 12/27/2023 Orders Only [facility] MEDICINE [address] [place] [address] Rosalind Cardoso FNP [address] [place] [address] Type 2 diabetes mellitus with stage 3 [...] unspecified whether stage 3a or 3b CKD ([facility]) Myalgia documented in this encounter Results * Prothrombin Time-INR (12/27/2023 9:33 AM EDT) Prothrombin Time 11.5 11.1 - 13.3 SEC [facility] INTERNATIONAL NORM RATIO 0.9 0.9 - 1.1 [facility] Comment:INTERNATIONAL NORMAL IZED RATIO [...] 12/27/2023 9:33 AM EDT us Rosalind Cardoso METAL SPONGE MAKING MACHINE OPERATOR LAB BLOOD ORDERABLES Final Res ult [facility] [address] [place] [phone] [phone] documented in this encounter Visit Diagnoses [...] as of this encounter Care Teams Supervisor Waterproofing Relationship Specialty Start Date End Date Rosalind Cardoso FNP [address] [place] [address] PCP - General Family Medicine 04/28/21 documented as of this encounter
--- OUTSIDE RECORDS SUMMARY | 2024-11-26 11:49 | XMS_ITS | Encounter Summary ---
Author Organization [employer] Address [address] [place] [address] 7 [place] [address] Care Team Providers Care Shaker Plate Operator Name Role Phone Rosalind Cardoso Primary Care Provider [phone] Encounter Details Date Type Department Care Team ([facility] st Contact Info) Description 03/13/2024 Orders Only [facility] CHC MED & PEDS [address] [place], [place] [phone] Rosalind Cardoso FNP [address] [place] [address] Type 2 diabetes mellitus with stage 3 [...] unspecified whether stage 3a or 3b CKD ([facility]/HCC) Primary hypertension Stage 3b chronic kidney disease ([facility]) 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 ([facility]) documented in this encounter Results * (ABNORMAL) C-reactive Protein (05/29/2024 2:18 PM EST) C Reactive Protein 1.25(H) < or = 0.50 mg/dL [facility] Blood Venous blood specimen / Unknown 05/29/2024 2:18 PM EST 05/29/2024 2:18 PM EST us Rosalind Cardoso FBI SPECIAL AGENT LAB BLOOD ORDERABLES Final Res ult [facility] [address] [place] [phone] documented in this encounter Visit Diagnoses [...] documented as of this encounter Care Teams Shaker Plate Operator Relationship Specialty Start Date End Date Rosalind Cardoso FNP [address] [place] [address] PCP - General Family Medicine 04/28/21 documented as of this encounter
--- OUTSIDE RECORDS SUMMARY | 2024-11-26 11:49 | XMS_ITS | Encounter Summary ---
Author Organization [employer] Address [address] [facility] 7t [place] [address] Care Team Providers Care Manager Transport Name Role Phone Rosalind Cardoso Primary Care Provider [phone] Encounter Details Date Type Department Care Team (Late st Contact Info) Description 04/17/2024 Orders Only [facility] MEDICINE [address] [place] [address] Rosalind Cardoso FNP [address] [place] [address] Type 2 diabetes mellitus with stage 3 [...] as of this encounter Care Teams Manager Transport Relationship Specialty Start Date End Date Rosalind Cardoso FNP [address] [place] [address] PCP - General Family Medicine 04/28/21 documented as of this encounter
--- OUTSIDE RECORDS SUMMARY | 2024-11-26 11:49 | XMS_ITS | Encounter Summary ---
Author Organization [email or web address] Address [address] [facility] 7t [place] [address] Care Team Providers Care Storage Facility Rental Clerk Name Role Phone Rosalind Cardoso Primary Care Provider [phone] Encounter Details Date Type Department Care Team (Late st Contact Info) Description 02/07/2024 Orders Only [facility] MEDICINE [address] [place] [address] Rosalind Cardoso FNP [address] [place] [address] Type 2 diabetes mellitus with stage 3 [...] documented as of this encounter Care Teams Storage Facility Rental Clerk Relationship Specialty Start Date End Date Rosalind Cardoso FNP [address] [place] [address] PCP - General Family Medicine 04/28/21 documented as of this encounter
--- OUTSIDE RECORDS SUMMARY | 2024-11-26 11:49 | XMS_ITS | Encounter Summary ---
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 (CMS/HCC) Rosalind Cardoso FNP [address] [place] [address] Phone: tel: fax: [facility] Referral ID Status Reason Start Date Expiration Date V isits Requested Visits Authorized [id number] Closed Specialty Services Required 11/28/2023 11/27/2024 1 1 * Consultation (Routine) - Closed Specialty Diagnoses / Procedures Referred By Anthony reyes Referred To Contact Physical Therapy Diagnoses Cervicalgia Fibromyalgia 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 ([facility]/HCC) Rosalind Cardoso FNP [address] [place] [address] Phone: tel: fax: [facility] Therapy [address] [place] [address] Phone: tel: fax: Referral ID Status Reason Start Date Expiration Date V isits Requested Visits Authorized [id number] Closed Specialty Services Required 11/28/2023 11/27/2024 1 1 Reason for Visit * Reason Onset Date Comments Referral 11/25/2023 Results 11/25/2023 Encounter Details Date Type Department Care Team (Late st Contact Info) Description 11/25/2023 Telephone [facility] CHC MED & PEDS [address] [place] [address] Rosalind Cardoso FNP [address] [place] [address] Referral; Results Social History Tobacco Use Types [...] lisinopril, 10 mg starting last month by leadite worker along with continuing furosemide, 80 mg. Pt is also requesting new referral to [facility] and [facility] for full body acupuncture and full body massage respectively. Originally was [facility] pt was unable to go due to being sick and leg swelling. Called [facility] at [phone], spoke to Stella and confirmed a referral was sent and another needs to be sent so insurance cancover it. Their fax is [phone]. Also called [facility] and got their fax number which is [phone]. Pt is also waiting for results of [...] referral : DATE: n/a TIME: n/a Address: [address] [place] [address] Visits: n/a Facility Name: [facility] Type of Specialist: Acupuncture DX: amputation and Fibromyalgia Phone # : [phone] Fax #: n/a TC from pt requesting call back regarding Results. Type of results: labs Date when done: 11/19 Facility: [facility] Pt is also calling to advise provider leadite worker increased dosage of furosemide (Lasix) 20 MG tablet to 80 mg. Advise to continue medication for a week and do blood work by end of this week. Pt will also be receiving prosthetic leg in about a week or so Any questions, contact pt at [phone] documented in this encounter Plan of Treatment [...] left leg through tibia and fibula ([facility]) documented in this encounter Additional Health Concerns Assessment Noted Time PHQ-9 Depression Total Score: 0 12/26/19 23 1:09 PM EDT documented as of this encounter Care Teams Glazier Supervisor Relationship Specialty Start Date End Date Rosalnid Cardoso FNP [address] [place] [address] PCP - General Family Medicine 04/28/21 documented as of this encounter
--- OUTSIDE RECORDS SUMMARY | 2024-11-26 11:49 | XMS_ITS | Encounter Summary ---
Author Organization [email or web address] Address 75 [facility] 7t [place] [address] Care Team Providers Care Superior Court Clerk Name Role Phone Rosalind Cardoso Primary Care Provider [phone] Encounter Details Date Type Department Care Team (Late st Contact Info) Description 04/03/2024 Orders Only [facility] MEDICINE [address] [place] [address] Rosalind Cardoso FNP [address] [place] [address] Type 2 diabetes mellitus with stage 3 [...] documented as of this encounter Care Teams Superior Court Clerk Relationship Specialty Start Date End Date Rosalind Cardoso FNP [address] [place] [address] PCP - General Family Medicine 04/28/21 documented as of this encounter
--- OUTSIDE RECORDS SUMMARY | 2024-11-26 11:49 | XMS_ITS | Encounter Summary ---
Author Organization [employer] Address [address] [place] [address] 7 [place] [address] Care Team Providers Care Music Researcher Name Role Phone Rosalind Cardoso Primary Care Provider [phone] Encounter Details Date Type Department Care Team ([facility] st Contact Info) Description 01/31/2024 Orders Only [facility] CHC MED & PEDS [address] [place], [place] [phone] Rosalind Cardoso FNP [address] [place] [address] Type 2 diabetes mellitus with stage 3 [...] unspecified whether stage 3a or 3b CKD ([facility]) Primary hypertension Stage 3b chronic kidney disease ([facility]) 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
--- OUTSIDE RECORDS SUMMARY | 2024-11-26 11:49 | XMS_ITS | Encounter Summary ---
Author Organization [employer] Address [address] [place] [address] 7 [place] [address] Care Team Providers Care Lap Polisher Name Role Phone Rosalind Cardoso Primary Care Provider [phone] Encounter Details Date Type Department Care Team ([facility] st Contact Info) Description 02/28/2024 Orders Only [facility] CHC MED & PEDS [address] [place], [place] [phone] Rosalind Cardoso FNP [address] [place] [address] Type 2 diabetes mellitus with stage 3 [...] documented as of this encounter Care Teams Lap Polisher Relationship Specialty Start Date End Date Rosalind Cardoso FNP [address] [place] [phone] PCP - General Family Medicine 04/28/21 documented as of this encounter
--- OUTSIDE RECORDS SUMMARY | 2024-11-26 11:49 | XMS_ITS | Encounter Summary ---
Author Organization [employer] Address [address] [place] [address] 7 [place] [address] Care Team Providers Care Properties Supervisor Name Role Phone Rosalind Cardoso Primary Care Provider [phone] Encounter Details Date Type Department Care Team ([facility] st Contact Info) Description 01/03/2024 Orders Only [facility] CHC MED & PEDS [address] [place], [place] [phone] Rosalind Cardoso FNP [address] [place] [address] Type 2 diabetes mellitus with stage 3 [...] EDT) Magnesium 2.4 1.6 - 2.6 mg/dL [facility] Blood Venous blood specimen / Unknown 01/17/2024 12:30 PM EDT 01/17/2024 12:30 PM EDT us Rosalind Cardoso JOINERS SUPERVISOR LAB BLOOD ORDERABLES Final Res ult [facility] [address] [place] [phone] * (ABNORMAL) Comprehensive Metabolic Panel (01/17/2024 12:30 PM EDT) Pathologist [facility] Sodium 141 135 - 145 mmol/L [facility] Potassium 4.2 3.3 - 5.1 mmol/L [facility] Chloride 106 96 - 108 mmol/L [facility] Carbon Dioxide 26 22 - 29 mmol/L [facility] Anion Gap 13 12 - 20 [facility] Urea Nitrogen (BUN) 30(H) 9 - 16 mg/dL [facility] Creatinine, Serum 1.24 0.5 - 1.4 mg/dL [facility] Estimated Glomerular Filt Rate 44 [facility] Comment:NOTE: For -Am erican individuals, multiply the result by 1.210.Chronic Kidney Disease: Estimated GFR < 60 mL/min/[id number] Kidney Disease: Estimated GFR < 15 mL/min/1.73m2 Glucose 165(H) 60 - 115 mg/dL [facility] Calcium 9.7 8.4 - 10.2 mg/dL [facility] Bilirubin, Total 0.4 0.0 - 1.0 mg/dL [facility] Aspartate Amino Transferase 14 5 - 31 U/L [facility] Alanine Aminotransferase 14 0 - 31 U/L [facility] Total Protein 6.8 6.5 - 8.0 g/dL [facility] Albumin Level 3.5 3.5 - 5.0 g/dL [facility] Alkaline Phosphatase 79 39 - 117 U/L [facility] Blood Venous blood specimen / Unknown 01/17/2024 12:30 PM EDT 01/17/2024 12:30 PM EDT Rosalind Cardoso JOINERS SUPERVISOR LAB BLOOD ORDERABLES Final Res ult [facility] [address] [place] [address] [phone] * (ABNORMAL) CBC auto differential (01/17/2024 12:30 PM EDT) White Blood Count 8.3 4.8 - 10.8 X10*3/uL [facility] Red Blood Count 4.91 4.20 - 5.50 X10*6/uL [facility] Hemoglobin 9.4(L) 12.0 - 16.0 g/dl [facility] Hematocrit 30.6(L) 37.0 - 47.0 % [facility] Mean Corpuscular Volume 62.3(L) 80.0 - 98.0 fL [facility] Mean Corpuscular Hemoglobin 19.1(L) 27.0 - 33.0 pg [facility] Mean Corpuscular HGB Conc 30.7(L) 31.0 - 35.0 g/dl [facility] Red Cell Distribution Width 20.2(H) 11.0 - 16.0 % [facility] Platelet Count 302 160 - 400 X10*3/uL [facility] Mean Platelet Volume 10.6 9.4 - 12.3 fL [facility] Neutrophils Percent Auto 64.0 45 - 73 % [facility] Imm Gran Pct Auto 0.5(H) 0.0 - 0.4 % [facility] Lymphocytes Percent Auto 24.0 20 - 40 % [facility] Monocytes Percent Auto 8.2 2 - 11 % [facility] Eosinophils Percent Auto 2.9 0 - 4 % [facility] Basophils Percent Auto 0.4 0 - 2 % [facility] NRBC Pct Auto 0.0 0.0 - 0.2 /100WBC [facility] Neutrophils Absolute Auto 5.3 2.0 - 8.3 x10*3/uL [facility] Imm Gran Abs Auto 0.04(H) 0.00 - 0.03 X10*3/uL [facility] Lymphocytes Absolute Auto 2.0 1.2 - 4.9 X10*3/uL [facility] Monocytes Absolute Auto 0.7 0.1 - 1.2 X10*3/uL [facility] Eosinophils Absolute Auto 0.2 0.0 - 0.4 X10*3/uL [facility] Basophils Absolute Auto 0.0 0.0 - 0.2 X10*3/uL [facility] NRBC Abs Auto 0.000 0.0 - 0.012 X10*3/uL [facility] Blood Venous blood specimen / Unknown 01/17/2024 12:30 PM EDT 01/17/2024 12:30 PM EDT us Rosalind MORELOS LAB BLOOD ORDERABLES Final Res ult [facility] [address] [place] [address] [phone] documented in this encounter Visit Diagnoses Diagnosis Type 2 diabetes mellitus with stage 3 chronic kidney disease, with long-term current use of insulin, unspecified whether stage 3a or 3b CKD (CMS/HCC) Primary hypertension Unspecified essential hypertension Stage 3b chronic kidney disease ([facility]/HCC) 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
--- OUTSIDE RECORDS SUMMARY | 2024-11-26 11:49 | XMS_ITS | Encounter Summary ---
Author Organization [employer] Address [address] [place] [address] 7 [place] [address] Care Team Providers Care Animal Laboratory Technician Name Role Phone Rosalind Cardoso Primary Care Provider [phone] Encounter Details Date Type Department Care Team ([facility] st Contact Info) Description 05/08/2024 Orders Only [facility] CHC MED & PEDS [address] [place], [place] [phone] Rosalind Cradoso FNP [address] [place] [address] Type 2 diabetes mellitus with stage 3 [...] documented as of this encounter Care Teams Animal Laboratory Technician Relationship Specialty Start Date End Date Rosalind Cardoso FNP [address] [place] [address] PCP - General Family Medicine 04/28/21 documented as of this encounter
--- OUTSIDE RECORDS SUMMARY | 2024-11-26 11:49 | XMS_ITS | Encounter Summary ---
Author Organization [employer] Address [address] [place] [address] 7 [place] [address] Care Team Providers Care Psychiatric Aide Name Role Phone Rosalind Cardoso Primary Care Provider [phone] Encounter Details Date Type Department Care Team ([facility] st Contact Info) Description 12/20/2023 Orders Only [facility] CHC MED & PEDS [address] [place], [place] [phone] Rosalind Cardoso FNP [address] [place] [address] Type 2 diabetes mellitus with stage 3 [...] Primary hypertension Stage 3b chronic kidney disease ([facility]/HCC) 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 ([facility]) COMPREHENSIVE METABOLIC PANEL Routine 12/27/2023 9:33 AM EDT Type 2 diabetes mellitus with stage 3 chronic kidney disease, with long-term current use of insulin, unspecified whether stage 3a or 3b CKD (CMS/HCC) Primary hypertension Stage 3b chronic kidney disease ([facility]/HCC) 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 ([facility]) documented in this encounter Results * C-reactive Protein (12/27/2023 9:33 AM EDT) Pathologist [facility] C Reactive Protein 0.46 < or = 0.50 mg/dL [facility] Blood Venous blood specimen / Unknown 12/27/2023 9:33 AM EDT 12/27/2023 9:33 AM EDT Rosalind Cardoso LEAD CARGO MOVER LAB BLOOD ORDERABLES Final Res ult Performing Organization Address [facility]/ZIP Co de Phone Number [facility] [address] [place] [phone] * (ABNORMAL) Sed Rate by Modified Javierren (12/27/2023 9:33 AM EDT) Pathologist [facility] Erythrocyte Sedimentation Rate 36(H) 0 - 20 MM/HR [facility] Comment:Patients with polycy themia and many hemoglobin abnormalitiesmay have depressed sed rates whereas patients with anemiamay have elevated sed rates. Blood Venous blood specimen / Unknown 12/27/2023 9:33 AM EDT 12/27/2023 9:33 AM EDT us Rosalind Phalen LEAD CARGO MOVER LAB BLOOD ORDERABLES Final Res ult Performing Organization Address City/[facility]/ZIP Co de Phone Number [facility] [address] [place] [address] [place] [phone] * Magnesium (12/27/2023 9:33 AM EDT) Pathologist [facility] Magnesium 2.2 1.6 - 2.6 mg/dL [facility] Blood Venous blood specimen / Unknown 12/27/2023 9:33 AM EDT 12/27/2023 9:33 AM EDT Rosalind Teoedna LEAD CARGO MOVER LAB BLOOD ORDERABLES Final Res ult [facility] [address] [place] [address] [phone] * (ABNORMAL) Comprehensive Metabolic Panel (12/27/2023 9:33 AM EDT) Pathologist [facility] Sodium 141 135 - 145 mmol/L [facility] Potassium 3.8 3.3 - 5.1 mmol/L [facility] Chloride 105 96 - 108 mmol/L [facility] Carbon Dioxide 28 22 - 29 mmol/L [facility] Anion Gap 12 12 - 20 [facility] Urea Nitrogen (BUN) 28(H) 9 - 16 mg/dL [facility] Creatinine, Serum 1.18 0.5 - 1.4 mg/dL [facility] Estimated Glomerular Filt Rate 47 [facility] Comment:NOTE: For -Am erican individuals, multiply the result by 1.210.Chronic Kidney Disease: Estimated GFR < 60 mL/min/[id number] Kidney Disease: Estimated GFR < 15 mL/min/1.73m2 Glucose 206(H) 60 - 115 mg/dL [facility] Calcium 9.3 8.4 - 10.2 mg/dL [facility] Bilirubin, Total 0.3 0.0 - 1.0 mg/dL [facility] Aspartate Amino Transferase 16 5 - 31 U/L [facility] Alanine Aminotransferase 22 0 - 31 U/L [facility] Total Protein 6.8 6.5 - 8.0 g/dL [facility] Albumin Level 3.5 3.5 - 5.0 g/dL [facility] Alkaline Phosphatase 88 39 - 117 U/L [facility] Blood Venous blood specimen / Unknown 12/27/2023 9:33 AM EDT 12/27/2023 9:33 AM EDT us Rosalind Cardoso LEAD CARGO MOVER LAB BLOOD ORDERABLES Final Res ult [facility] [address] [place] [address] [phone] * (ABNORMAL) CBC auto differential (12/27/2023 9:33 AM EDT) White Blood Count 9.2 4.8 - 10.8 X10*3/uL [facility] Red Blood Count 5.36 4.20 - 5.50 X10*6/uL [facility] Hemoglobin 10.1(L) 12.0 - 16.0 g/dl [facility] Hematocrit 32.8(L) 37.0 - 47.0 % [facility] Mean Corpuscular Volume 61.2(L) 80.0 - 98.0 fL [facility] Mean Corpuscular Hemoglobin 18.8(L) 27.0 - 33.0 pg [facility] Mean Corpuscular HGB Conc 30.8(L) 31.0 - 35.0 g/dl [facility] Red Cell Distribution Width 17.0(H) 11.0 - 16.0 % [facility] Platelet Count 292 160 - 400 X10*3/uL [facility] Mean Platelet Volume 11.0 9.4 - 12.3 fL [facility] Neutrophils Percent Auto 59.0 45 - 73 % [facility] Imm Gran Pct Auto 0.3 0.0 - 0.4 % [facility] Lymphocytes Percent Auto 28.1 20 - 40 % [facility] Monocytes Percent Auto 8.8 2 - 11 % [facility] Eosinophils Percent Auto 3.1 0 - 4 % [facility] Basophils Percent Auto 0.7 0 - 2 % [facility] NRBC Pct Auto 0.0 0.0 - 0.2 /100WBC [facility] Neutrophils Absolute Auto 5.4 2.0 - 8.3 x10*3/uL [facility] Imm Gran Abs Auto 0.03 0.00 - 0.03 X10*3/uL [facility] Lymphocytes Absolute Auto 2.6 1.2 - 4.9 X10*3/uL [facility] Monocytes Absolute Auto 0.8 0.1 - 1.2 X10*3/uL [facility] Eosinophils Absolute Auto 0.3 0.0 - 0.4 X10*3/uL [facility] Basophils Absolute Auto 0.1 0.0 - 0.2 X10*3/uL [facility] NRBC Abs Auto 0.000 0.0 - 0.012 X10*3/uL [facility] Blood Venous blood specimen / Unknown 12/27/2023 9:33 AM EDT 12/27/2023 9:33 AM EDT us Rosalind MORELOS LAB BLOOD ORDERABLES Final Res ult [facility] [address] [place] [phone] documented in this encounter Visit Diagnoses [...] documented as of this encounter Care Teams Psychiatric Aide Relationship Specialty Start Date End Date Rosalind Cardoso FNP [address] [place] [address] PCP - General Family Medicine 04/28/21 documented as of this encounter
--- OUTSIDE RECORDS SUMMARY | 2024-11-26 11:49 | XMS_ITS | Encounter Summary ---
Author Organization [employer] Address [address] [place] [address] 7 [place] [address] Care Team Providers Care Railway Shunter Name Role Phone TeoRosalind bishop TAMY Primary Care Provider [phone] Reason for Visit * Reason Comments Med Refill Encounter Details Date Type Department Care Team ([facility] st Contact Info) Description 01/13/2023 Refill [facility] CHC MED & PEDS [address] [place] [address] Saba Garcia FNP [address] [place] [address] [place] [address] Type 2 diabetes mellitus with hyperglycemia ([facility]/HCC) Social History Tobacco Use Types Packs/Day Years [...] documented as of this encounter Care Teams Railway Shunter Relationship Specialty Start Date End Date Rosalind Cardoso FNP [address] [place] [address] PCP - General Family Medicine 04/28/21 documented as of this encounter
--- OUTSIDE RECORDS SUMMARY | 2024-11-26 11:49 | XMS_ITS | Encounter Summary ---
Author Organization [employer] Address [address] [place] [address] 7 [place] [address] Care Team Providers Care Medical Assistant Instructor Name Role Phone Rosalind Cardoso Primary Care Provider [phone] Encounter Details Date Type Department Care Team ([facility] st Contact Info) Description 04/10/2024 Orders Only [facility] CHC MED & PEDS [address] [place], [place] [phone] Rosalind Cardoso FNP [address] [place] [address] Type 2 diabetes mellitus with stage 3 [...] as of this encounter Care Teams Medical Assistant Instructor Relationship Specialty Start Date End Date Rosalind Cardoso FNP [address] [place] [address] PCP - General Family Medicine 04/28/21 documented as of this encounter
--- OUTSIDE RECORDS SUMMARY | 2024-11-26 11:49 | XMS_ITS | Encounter Summary ---
Author Organization [employer] Address [address] [facility] [address] [place] [address] Care Team Providers Care Mathematics Improvement Teacher Name Role Phone Rosalind Cardoso Primary Care Provider [phone] Encounter Details Date Type Department Care Team (Late st Contact Info) Description 12/13/2023 Orders Only [facility] [address] [place] [address] Rosalind Cardoso FNP [address] [place] [address] Type 2 diabetes mellitus with stage 3 [...] whether stage 3a or 3b CKD ([facility]) Myalgia B TYPE NATRIURETIC PEPTIDE (BNP) Routine 12/13/2023 8:52 AM EDT Type 2 diabetes mellitus with stage 3 chronic kidney disease, with long-term current use of insulin, unspecified whether stage 3a or 3b CKD ([facility]) documented in this encounter Results * (ABNORMAL) B Type Natriuretic Peptide (BNP) (12/13/2023 8:52 AM EDT) B Type Natriuretic Peptide 1,216(H) <100 pg/mL [facility] Comment:For those patients w ho are being treated with Natrecor(nesiritide, recombinant BNP), BNP testing should beperformed at least two hours post treatment in order toensure that only endogenous levels of BNP are detected. 12/13/2023 8:52 AM EDT 12/13/2023 8:52 AM EDT us Generic External Data Provider LAB BLOOD ORDERAB LES Final Result [facility] [address] [place] [address] [phone] * (ABNORMAL) CBC auto differential (12/13/2023 8:52 AM EDT) White Blood Count 9.1 4.8 - 10.8 X10*3/uL [facility] Red Blood Count 6.02(H) 4.20 - 5.50 X10*6/uL [facility] Hemoglobin 11.4(L) 12.0 - 16.0 g/dl [facility] Hematocrit 37.7 37.0 - 47.0 % [facility] Mean Corpuscular Volume 62.6(L) 80.0 - 98.0 fL [facility] Mean Corpuscular Hemoglobin 18.9(L) 27.0 - 33.0 pg [facility] Mean Corpuscular HGB Conc 30.2(L) 31.0 - 35.0 g/dl [facility] Red Cell Distribution Width 17.2(H) 11.0 - 16.0 % [facility] Platelet Count 285 160 - 400 X10*3/uL [facility] Mean Platelet Volume 10.8 9.4 - 12.3 fL [facility] Neutrophils Percent Auto 51.6 45 - 73 % [facility] Imm Gran Pct Auto 0.4 0.0 - 0.4 % [facility] Lymphocytes Percent Auto 36.9 20 - 40 % [facility] Monocytes Percent Auto 7.7 2 - 11 % [facility] Eosinophils Percent Auto 2.8 0 - 4 % [facility] Basophils Percent Auto 0.6 0 - 2 % [facility] NRBC Pct Auto 0.0 0.0 - 0.2 /100WBC [facility] Neutrophils Absolute Auto 4.7 2.0 - 8.3 x10*3/uL [facility] Imm Gran Abs Auto 0.04(H) 0.00 - 0.03 X10*3/uL [facility] Lymphocytes Absolute Auto 3.3 1.2 - 4.9 X10*3/uL [facility] Monocytes Absolute Auto 0.7 0.1 - 1.2 X10*3/uL [facility] Eosinophils Absolute Auto 0.3 0.0 - 0.4 X10*3/uL [facility] Basophils Absolute Auto 0.1 0.0 - 0.2 X10*3/uL [facility] NRBC Abs Auto 0.000 0.0 - 0.012 X10*3/uL [facility] Blood Venous blood specimen / Unknown 12/13/2023 8:52 AM EDT 12/13/2023 8:52 AM EDT us Rosalind MORELOS LAB BLOOD ORDERABLES Final Res ult [facility] [address] [place] [address] [phone] documented in this encounter Visit Diagnoses [...] documented as of this encounter Care Teams Mathematics Improvement Teacher Relationship Specialty Start Date End Date Rosalind Cardoso FNP [address] [place] [address] PCP - General Family Medicine 04/28/21 documented as of this encounter
--- OUTSIDE RECORDS SUMMARY | 2024-11-26 11:49 | XMS_ITS | Encounter Summary ---
Author Organization [employer] Address [address] [facility] 7t [place] [address] Care Team Providers Care Pumping Station Supervisor Name Role Phone Rosalind Cardoso Primary Care Provider [phone] Encounter Details Date Type Department Care Team (Late st Contact Info) Description 05/29/2024 Orders Only [facility] MEDICINE [address] [place] [address] Rosalind Cardoso FNP [address] [place] [address] Type 2 diabetes mellitus with stage 3 [...] stage 3a or 3b CKD ([facility]) LIPID PANEL, STANDARD Routine 05/29/2024 2:18 PM EST Type 2 diabetes mellitus with stage 3 chronic kidney disease, with long-term current use of insulin, unspecified whether stage 3a or 3b CKD ([facility]) COMPREHENSIVE METABOLIC PANEL Routine 05/29/2024 2:18 PM EST Type 2 diabetes mellitus with stage 3 chronic kidney disease, with long-term current use of insulin, unspecified whether stage 3a or 3b CKD ([facility]) documented in this encounter Results * (ABNORMAL) Lipid Panel, Standard (05/29/2024 2:18 PM EST) Triglycerides 266(H) <150 mg/dL [facility] Comment:Desirable Triglyceri de: less than 150 mg/dLBorderline High Triglyceride 150-199 mg/dLHigh Triglyceride: 200-499 mg/dLVery High Triglyceride: greater than or equal to 5OO mg/dL Cholesterol 250(H) <200 mg/dL [facility] Comment:Desirable Cholestero l: less than 200 mg/dLBorderline High Cholesterol: 200-239 mg/dLHigh Cholesterol: greater than 239 mg/dL LDL Cholesterol Calculated 161(H) <100 mg/dL [facility] Comment:Desirable LDL: less than 100 mg/dLNear Optimal/Above Optimal LDL: 110- 129 mg/dLBorderline High LDL: 130-159 mg/dLHigh LDL: 160-189 mg/dLVery High LDL: greater than or equal to 190 mg/dL HDL Cholesterol 36(L) >40 mg/dL [facility] Comment:Desirable HDL: great er than 40 mg/dL Note: This HDL assay may give artificially low results in patients with liver disease. 05/29/2024 2:18 PM EST 05/29/2024 2:18 PM EST us Generic External Data Provider LAB BLOOD ORDERAB LES Final Result [facility] [address] [place] [phone] * (ABNORMAL) Comprehensive Metabolic Panel (05/29/2024 2:18 PM EST) Sodium 134(L) 135 - 145 mmol/L [facility] Potassium 4.0 3.3 - 5.1 mmol/L [facility] Chloride 99 96 - 108 mmol/L [facility] Carbon Dioxide 26 22 - 29 mmol/L [facility] Anion Gap 13 12 - 20 [facility] Urea Nitrogen (BUN) 41(H) 9 - 16 mg/dL [facility] Creatinine, Serum 1.49(H) 0.5 - 1.4 mg/dL [facility] Estimated Glomerular Filt Rate 36 [facility] Comment:Chronic Kidney Disea se: Estimated GFR < 60 mL/min/1.52u2Hzqkzs Kidney Disease: Estimated GFR < 15 mL/min/1.73m2 Glucose 370(HH) 60 - 115 mg/dL [facility] Comment:Critical value for t est(s): GLUR Results called to concepcion back by: KJ Gallegos Person calling: JOHNY Date:05/29/24Time:1558 Calcium 9.5 8.4 - 10.2 mg/dL [facility] Bilirubin, Total 0.3 0.0 - 1.0 mg/dL [facility] Aspartate Amino Transferase 65(H) 5 - 31 U/L [facility] Alanine Aminotransferase 64(H) 0 - 31 U/L [facility] Total Protein 6.9 6.5 - 8.0 g/dL [facility] Albumin Level 3.4(L) 3.5 - 5.0 g/dL [facility] Alkaline Phosphatase 146(H) 39 - 117 U/L [facility] 05/29/2024 2:18 PM EST 05/29/2024 2:18 PM EST us Generic External Data Provider LAB BLOOD ORDERAB LES Final Result [facility] [address] [place] [phone] * (ABNORMAL) CBC auto differential (05/29/2024 2:18 PM EST) White Blood Count 12.0(H) 4.8 - 10.8 X10*3/uL [facility] Red Blood Count 4.01(L) 4.20 - 5.50 X10*6/uL [facility] Hemoglobin 7.8(L) 12.0 - 16.0 g/dl [facility] Hematocrit 25.3(L) 37.0 - 47.0 % [facility] Mean Corpuscular Volume 63.1(L) 80.0 - 98.0 fL [facility] Mean Corpuscular Hemoglobin 19.5(L) 27.0 - 33.0 pg [facility] Mean Corpuscular HGB Conc 30.8(L) 31.0 - 35.0 g/dl [facility] Red Cell Distribution Width 15.3 11.0 - 16.0 % [facility] Platelet Count 312 160 - 400 X10*3/uL [facility] Mean Platelet Volume 10.4 9.4 - 12.3 fL [facility] Neutrophils Percent Auto 71.1 45 - 73 % [facility] Imm Gran Pct Auto 0.9(H) 0.0 - 0.4 % [facility] Lymphocytes Percent Auto 18.6(L) 20 - 40 % [facility] Monocytes Percent Auto 6.4 2 - 11 % [facility] Eosinophils Percent Auto 2.6 0 - 4 % [facility] Basophils Percent Auto 0.4 0 - 2 % [facility] NRBC Pct Auto 0.2 0.0 - 0.2 /100WBC [facility] Neutrophils Absolute Auto 8.6(H) 2.0 - 8.3 x10*3/uL [facility] Imm Gran Abs Auto 0.11(H) 0.00 - 0.03 X10*3/uL [facility] Lymphocytes Absolute Auto 2.2 1.2 - 4.9 X10*3/uL [facility] Monocytes Absolute Auto 0.8 0.1 - 1.2 X10*3/uL [facility] Eosinophils Absolute Auto 0.3 0.0 - 0.4 X10*3/uL [facility] Basophils Absolute Auto 0.1 0.0 - 0.2 X10*3/uL [facility] NRBC Abs Auto 0.020(H) 0.0 - 0.012 X10*3/uL [facility] 05/29/2024 2:18 PM EST 05/29/2024 2:18 PM EST us Generic External Data Provider LAB BLOOD ORDERAB LES Final Result [facility] [address] [place], [place] [phone] documented in this encounter Visit Diagnoses Diagnosis Type 2 diabetes mellitus with stage 3 chronic kidney disease, with long-term current use of insulin, unspecified whether stage 3a or 3b CKD ([facility]) Myalgia Unspecified myalgia and myositis documented in this encounter Additional Health Concerns Assessment Noted Time PHQ-9 Depression Total Score: 0 12/26/19 23 1:09 PM EDT documented as of this encounter Care Teams Pumping Station Supervisor Relationship Specialty Start Date End Date Rosalind Cardoso FNP [address] [place] [address] PCP - General Family Medicine 04/28/21 documented as of this encounter
--- OUTSIDE RECORDS SUMMARY | 2024-11-26 11:49 | XMS_ITS | Encounter Summary ---
Author Organization [employer] Address [address] [facility] 7t [place] [address] Care Team Providers Care Discovery Manager Name Role Phone Rosalind Cardoso Primary Care Provider [phone] Encounter Details Date Type Department Care Team (Late st Contact Info) Description 03/06/2024 Orders Only [facility] MEDICINE [address] [place] [address] Rosalind Cardoso FNP [address] [place] [address] Type 2 diabetes mellitus with stage 3 [...] documented as of this encounter Care Teams Discovery Manager Relationship Specialty Start Date End Date Rosalind Cardoso FNP [address] [place] [address] PCP - General Family Medicine 04/28/21 documented as of this encounter
--- OUTSIDE RECORDS SUMMARY | 2024-11-26 11:49 | XMS_ITS | Encounter Summary ---
Author Organization [employer] Address [address] [place] [address] 7 [place] [address] Care Team Providers Care Principal Developer Name Role Phone Rosalind Cardoso Primary Care Provider [phone] Encounter Details Date Type Department Care Team ([facility] st Contact Info) Description 11/28/2022 Abstract [facility] MEDICINE [address] [place] [address] Rosalind Cardoso FNP [address] [place] [address] Social History Tobacco Use Types Packs/Day Years [...] on filedocumented in this encounter Care Teams Principal Developer Relationship Specialty Start Date End Date Rosalind Cardoso FNP [address] [place], [place] [phone] PCP - General Family Medicine 04/28/21 documented as of this encounter
--- OUTSIDE RECORDS SUMMARY | 2024-11-26 11:49 | XMS_ITS | Encounter Summary ---
Author Organization [employer] Address [address] [facility] 7t [place] [address] Care Team Providers Care Devil Dog Name Role Phone Rosalind Cardoso Primary Care Provider [phone] Encounter Details Date Type Department Care Team (Late st Contact Info) Description 02/21/2024 Orders Only [facility] MEDICINE [address] [place] [address] Rosalind Cardoso FNP [address] [place] [address] Type 2 diabetes mellitus with stage 3 [...] documented as of this encounter Care Teams Devil Dog Relationship Specialty Start Date End Date Rosalind Cardoso FNP [address] [place] [address] PCP - General Family Medicine 04/28/21 documented as of this encounter
--- OUTSIDE RECORDS SUMMARY | 2024-11-26 11:49 | XMS_ITS | Encounter Summary ---
Author Organization [employer] Address [address] [place] [address] 7 [place] [address] Care Team Providers Care Trailer Steerer Name Role Phone Rosalind Cardoso Primary Care Provider [phone] Encounter Details Date Type Department Care Team ([facility] st Contact Info) Description 12/27/2022 Abstract [facility] [address] [place] [address] Rosalind Cardoso FNP [address] [place] [address] Social History Tobacco Use Types Packs/Day Years [...] Recommended routine annual screening us Historical Provider MD HEALTH MAINTENANCE Final Result documented in this encounter Visit Diagnoses Not on filedocumented in this encounter Additional Health Concerns Assessment Noted Time PHQ-9 Depression Total Score: 0 12/26/19 23 1:09 PM EDT documented as of this encounter Care Teams Trailer Steerer Relationship Specialty Start Date End Date Rosalind Cardoso FNP [address] [place] [address] PCP - General Family Medicine 04/28/21 documented as of this encounter
--- OUTSIDE RECORDS SUMMARY | 2024-11-26 11:49 | XMS_ITS | Encounter Summary ---
Author Organization [employer] Address [address] [place] [address] 7 [place] [address] Care Team Providers Care Embedded Systems Software Engineer Name Role Phone Rosalind Cardoso Primary Care Provider [phone] Encounter Details Date Type Department Care Team ([facility] st Contact Info) Description 02/14/2024 Orders Only [facility] [address] [place], [place] [phone] Rosalind Cardoso FNP [address] [place] [address] Type 2 diabetes mellitus with stage 3 [...] documented as of this encounter Care Teams Embedded Systems Software Engineer Relationship Specialty Start Date End Date Rosalind Cardoso FNP [address] [place] [address] PCP - General Family Medicine 04/28/21 documented as of this encounter
--- OUTSIDE RECORDS SUMMARY | 2024-11-26 11:49 | XMS_ITS | Encounter Summary ---
Author Organization [employer] Address [address] [place] [address] 7 [place] [address] Care Team Providers Care Mitten Stitcher Name Role Phone Rosalind Cardoso Primary Care Provider [phone] Encounter Details Date Type Department Care Team ([facility] st Contact Info) Description 03/27/2024 Orders Only [facility] MED & PEDS [address] [place], [place] [phone] Rosalind Cardoso FNP [address] [place] [address] Type 2 diabetes mellitus with stage 3 [...] documented as of this encounter Care Teams Mitten Stitcher Relationship Specialty Start Date End Date Rosalind Cardoso FNP [address] [place] [address] PCP - General Family Medicine 04/28/21 documented as of this encounter
--- OUTSIDE RECORDS SUMMARY | 2024-11-26 11:49 | XMS_ITS | Encounter Summary ---
Author Organization [employer] Address [address] [facility] 7t [place] [address] Care Team Providers Care Sheet Tester Name Role Phone Rosalind Cardoso Primary Care Provider [phone] Encounter Details Date Type Department Care Team (Late st Contact Info) Description 01/24/2024 Orders Only [facility] MEDICINE [address] [place] [address] Rosalind Cardsoo FNP [address] [place] [address] Type 2 diabetes mellitus with stage 3 [...] EST) Magnesium 2.0 1.6 - 2.6 mg/dL [facility] Blood Venous blood specimen / Unknown 05/29/2024 2:18 PM EST 05/29/2024 2:18 PM EST us Rosalind Cardoso ELECTRONIC COMMERCE SPECIALIST LAB BLOOD ORDERABLES Final Res ult [facility] [address] [place] [phone] * Prothrombin Time-INR (05/29/2024 2:18 PM EST) Prothrombin Time 11.1 10.9 - 12.4 SEC [facility] INTERNATIONAL NORM RATIO 1.0 0.9 - 1.1 [facility] Comment:INTERNATIONAL NORMAL IZED RATIO (INR) [...] MORELOS LAB BLOOD ORDERABLES Final Res ult [facility] [address] [place] [phone] documented in this encounter Visit Diagnoses [...] documented as of this encounter Care Teams Sheet Tester Relationship Specialty Start Date End Date Rosalind Cardoso FNP [address] [place] [address] PCP - General Family Medicine 04/28/21 documented as of this encounter
--- OUTSIDE RECORDS SUMMARY | 2024-11-26 11:49 | XMS_ITS | Encounter Summary ---
Author Organization [employer] Address [address] [place] [address] 7t [place] [address] Care Team Providers Care Regulatory Law Specialist Name Role Phone Rosalind Cardoso Primary Care Provider [phone] Reason for Visit * Reason Onset Date Comments Durable Medical Equipment 12/06/2022 Encounter Details Date Type Department Care Team ([facility] st Contact Info) Description 12/06/2022 Telephone [facility] MEDICINE [address] [place] [address] Rosalind Cardoso FNP [address] [place] [address] Durable Medical Equipment Social History Tobacco Use [...] For more clarification, please contact pt at [phone] documented in this encounter Plan of Treatment Not on file documented as of this encounter Visit Diagnoses Not on filedocumented in this encounter Care Teams Regulatory Law Specialist Relationship Specialty Start Date End Date Rosalind Cardoso FNP [address] [place] [address] PCP - General Family Medicine 04/28/21 documented as of this encounter
--- OUTSIDE RECORDS SUMMARY | 2024-11-26 11:49 | XMS_ITS | Encounter Summary ---
Author Organization [employer] Address [address] [facility] 7t [place] [address] Care Team Providers Care Radio Frequency Engineer Name Role Phone Rosalind Cardoso Primary Care Provider [phone] Encounter Details Date Type Department Care Team (Late st Contact Info) Description 05/15/2024 Orders Only [facility] MEDICINE [address] [place] [address] Rosalind Cardoso FNP [address] [place] [address] Type 2 diabetes mellitus with stage 3 [...] documented as of this encounter Care Teams Radio Frequency Engineer Relationship Specialty Start Date End Date Rosalind Cardoso FNP [address] [place] [address] PCP - General Family Medicine 04/28/21 documented as of this encounter
--- OUTSIDE RECORDS SUMMARY | 2024-11-26 11:49 | XMS_ITS | Encounter Summary ---
Author Organization [employer] Address [address] [facility] 7t [place] [address] Care Team Providers Care Cinder Block Mason Name Role Phone Rosalind Cardoso Primary Care Provider [phone] Encounter Details Date Type Department Care Team (Late st Contact Info) Description 01/10/2024 Orders Only [facility] MEDICINE [address] [place] [address] Rosalind Cardoso FNP [address] [place] [address] Type 2 diabetes mellitus with stage 3 [...] unspecified whether stage 3a or 3b CKD ([facility]) Myalgia documented in this encounter Results * Prothrombin Time-INR (01/17/2024 12:30 PM EDT) Prothrombin Time 11.4 11.1 - 13.3 SEC [facility] INTERNATIONAL NORM RATIO 0.9 0.9 - 1.1 [facility] Comment:INTERNATIONAL NORMAL IZED RATIO (INR) [...] 01/17/2024 12:30 PM EDT us Rosalind Cardoso PLANT INSPECTOR LAB BLOOD ORDERABLES Final Res ult [facility] [address] [place] [address] [phone] documented in this encounter Visit Diagnoses [...] documented as of this encounter Care Teams Cinder Block Mason Relationship Specialty Start Date End Date Rosalind Cardoso FNP [address] [place] [address] PCP - General Family Medicine 04/28/21 documented as of this encounter
--- OUTSIDE RECORDS SUMMARY | 2024-11-26 11:49 | XMS_ITS | Encounter Summary ---
Author Organization [employer] Address [address] [facility] 7t [place] [address] Care Team Providers Care Music Producer Name Role Phone Rosalind Cardoso Primary Care Provider [phone] Encounter Details Date Type Department Care Team (Late st Contact Info) Description 05/01/2024 Orders Only [facility] MEDICINE [address] [place] [address] Rosalind Cardoso FNP [address] [place] [address] Type 2 diabetes mellitus with stage 3 [...] as of this encounter Care Teams Music Producer Relationship Specialty Start Date End Date Rosalind Cardoso FNP [address] [place] [address] PCP - General Family Medicine 04/28/21 documented as of this encounter
--- OUTSIDE RECORDS SUMMARY | 2024-11-26 11:49 | XMS_ITS | Encounter Summary ---
Author Organization [employer] Address [address] [facility] 7t [place] [address] Care Team Providers Care Home Care Nurse Name Role Phone Rosalind Cardoso Primary Care Provider [phone] Encounter Details Date Type Department Care Team (Late st Contact Info) Description 03/20/2024 Orders Only [facility] MED[facility] [address] [place] [address] Rosalind Cardoso FNP [address] [place] [address] Type 2 diabetes mellitus with stage 3 [...] documented as of this encounter Care Teams Home Care Nurse Relationship Specialty Start Date End Date Rosalind Cardoso FNP [address] [place] [address] PCP - General Family Medicine 04/28/21 documented as of this encounter
--- OUTSIDE RECORDS SUMMARY | 2024-11-26 11:49 | XMS_ITS | Encounter Summary ---
Author Organization [employer] Address [address] [place] [address] 7 [place] [address] Care Team Providers Care Paper Cone Maker Name Role Phone Rosalind Cardoso Primary Care Provider [phone] Encounter Details Date Type Department Care Team ([facility] st Contact Info) Description 04/24/2024 Orders Only [facility] MED & PEDS [address] [place], [place] [phone] Rosalind Cardoso FNP [address] [place] [address] Type 2 diabetes mellitus with stage 3 [...] as of this encounter Care Teams Paper Cone Maker Relationship Specialty Start Date End Date Rosalind Cardoso FNP [address] [place] [address] PCP - General Family Medicine 04/28/21 documented as of this encounter
--- OUTSIDE RECORDS SUMMARY | 2024-11-26 11:49 | XMS_ITS | Encounter Summary ---
Author Organization [employer] Address [address] [place] [address] 7 [place] [address] Care Team Providers Care Pediatrics Hospitalist Name Role Phone Rosalind Cardoso Primary Care Provider [phone] Encounter Details Date Type Department Care Team ([facility] st Contact Info) Description 01/17/2024 Orders Only [facility] MED & PEDS [address] [place], [place] [phone] Rosalind Cardoso FNP [address] [place] [address] Type 2 diabetes mellitus with stage 3 [...] Protein 0.36 < or = 0.50 mg/dL [facility] Blood Venous blood specimen / Unknown 01/17/2024 12:30 PM EDT 01/17/2024 12:30 PM EDT us Rosalind Cardoso TREASURY DIRECTOR LAB BLOOD ORDERABLES Final Res ult Performing Organization Address City/[facility]/ZIP Co de Phone Number [facility] [address] [place] [address] [phone] * (ABNORMAL) Sed Rate by Modified Westergren (01/17/2024 12:30 PM EDT) Erythrocyte Sedimentation Rate 36(H) 0 - 20 MM/HR [facility] Comment:Patients with polycy themia and many hemoglobin abnormalitiesmay have depressed sed rates whereas patients with anemiamay have elevated sed rates. Blood Venous blood specimen / Unknown 01/17/2024 12:30 PM EDT 01/17/2024 12:30 PM EDT us Rosalind Cardoso [facility] LAB BLOOD ORDERABLES Final Res ult Performing Organization Address [facility]/ZIP Co de Phone Number [facility] [address] [place] [address] [phone] documented in this encounter Visit Diagnoses [...] documented as of this encounter Care Teams Pediatrics Hospitalist Relationship Specialty Start Date End Date Rosalind Cardoso FNP [address] [place] [address] PCP - General Family Medicine 04/28/21 documented as of this encounter
--- OUTSIDE RECORDS SUMMARY | 2024-11-26 11:50 | XMS_ITS | Clinical Summary ---
Author Organization [employer] Address [address] [place] [address] 7 [place] [address] Care Team Providers Care Optical Technician Name Role Phone Teoedna Rosalind TAMY Primary Care Provider [phone] Allergies Active Allergy Reactions Criticality Noted Date [...] DAYS 22 g 3 06/21/20 23 Active sodium chloride (Deep Sea Nasal [place]) 0.65 % nasal spray USE 1 SPRAY [...] or chew. 90 tablet 3 05/29/20 24 2024 Active ezetimibe (Zetia) 10 MG tabletIndication s:Pure hypercholesterol emia, unspecified Take 1 tablet (10 mg) by mouth in the morning. 90 tablet 3 05/29/20 24 Active lidocaine (Lidoderm) 5 % patchIndications :Pain APPLY 1 PATCH TOPICALLY TO SKIN, LEAVE ON FOR 12 HOURS AND OFF FOR 12 HOURS DIRECTED 30 patch 05/29/20 Active magnesium oxide (Mag-Ox) 400 MG tabletIndication s:Type 2 diabetes mellitus with other specified complication, unspecified whether alf insulin use (CMS/HCC) TAKE 1 TABLET BY [...] with long-term current use of insulin (CMS/HCC) Use to check Blood glucose values three times dailyUse to check Blood glucose values three times daily 1 kit 1 08/03/19 25 Active Blood Pressure kit Use to check blood pressure daily and when symptomatic. 1 kit 08/03/19 25 Active Alcohol Swabs (SM Alcohol Prep) 70 % padsIndications: Type 2 diabetes mellitus with foot ulcer, with long-term current use of insulin (CMS/HCC) TEST BLOOD SUGAR THREE TIMES DAILY 100 each 11 08/03/19 25 Active FreeStyle lancets 1 each [...] with long-term current use of insulin (CMS/HCC) USE DIRECTED TO TEST BLOOD SUGAR THREE TIMES DAILY 100 strip 11 08/03/19 25 Active amLODIPine (Norvasc) 5 MG tablet Take 1 tablet by mouth Once per day. 07/02/20 24 Active Repatha SureClick 140 MG/ML injection 08/10/19 25 Active furosemide (Lasix) 40 MG tablet Take 2 tablets by mouth Once per day. 07/02/20 24 Active Acetaminophen Extra Strength 500 MG tabletIndication s:Low back pain at multiple sites TAKE 1 TO 2 TABLETS BY MOUTH EVERY 8 HOURS NEEDED (for pain) 100 tablet 3 09/12/19 25 Active insulin glargine (Lantus SoloStar) 100 UNIT/ML penIndications:T ype 2 diabetes mellitus with hyperglycemia (CMS/HCC) Inject 45 units once daily as directed. 3 mL 11/27/19 25 Active lidocaine-priloc daren (Emla) 2.5-2.5 % creamIndications :Other chronic osteomyelitis of left foot (CMS/HCC) APPLY TO THE AFFECTED AREA(S) ONCE DAILY NEEDED FOR PAIN 30 g 11 11/27/19 25 Active lidocaine-priloc daren (Emla) 2.5-2.5 % creamIndications :Other chronic osteomyelitis of left foot (CMS/HCC) APPLY TO THE AFFECTED AREA(S) ONCE DAILY NEEDED FOR PAIN 30 g 11 06/21/20 23 2024 Discontinued(R eorder (will not trigger notification to Pharmacy)) insulin glargine (Lantus SoloStar) 100 UNIT/ML penIndications:T ype 2 diabetes mellitus with hyperglycemia (CMS/HCC) Inject 42-48 units once daily as directed. Increase to 42 units today, then increase by 2 units every 3-4 days if FBS > 130mg/dl with NO hypoglycemia. 08/14/19 25 2024 Discontinued(R eorder (will not trigger notification to Pharmacy)) Active Problems Problem Noted Date Diagnosed Date Screening for colorectal cancer 11/26/2024 Encounter for screening mamm ogram for malignant neoplasm of breast 11/26/2024 Preventative health care 11/26/2024 Cervicalgia 08/11/2023 Overview (08/11/2023): ?? Evaluation through [facility] - MRI cervical spine completed Jul 2023 unremarkable ?? Referral to [facility] Pain Management 08/11/23 Fibromyalgia 05/14/2023 Overview (12/10/2023): Previously followed by [facility] Neurology, Dr. Jolly Continues with [...] physical therapy, referral [facility] Assessment & Plan (12/26/2022 8:59 AM [...] -Cont Metoprolol succ 100mg daily -Following with [facility] Assessment & Plan (11/05/2022 9:48 PM [...] Overview (03/16/2024): -Optometry: NABOR November 2021 -Dental: [facility] dental clinic -Pap: reports last 2019 and believes results were normal, referred to UroGYN -Mammo: 11/29/23 BIRADS 1 -Colorectal CA screening: iFOBT neg 12/18/21, due Assessment & Plan (10/03/2023 12:48 PM EDT): Complex care management/medical binder completed today and reviewed with patient -Pt continues to decline all vaccines Assessment & Plan (06/21/2023 9:30 PM EST): -Optometry: NABORNovember 2021 -Dental: [facility] dental [facility] -Pap: reports last 2019 and believes results were normal, referred to UroGYN -Colorectal CA screening: iFOBT neg 12/18/21, due December 2022 ?? Complex care management/medical binder completed today with patient. Medical binder to be picked up next week when elevator in apartment functioning. Assessment & Plan (11/05/2022 9:38 PM EDT): -Optometry: NABORNovember 2021 -Dental: [facility] dental [facility] -Pap: reports last 2019 and believes results were normal, referred to UroGYN -Colorectal CA screening: iFOBT neg 12/18/21, due December 2022 -Mammogram: BIRADS 3 on 01/16/22, due Jul 2022 -Outstanding vaccines: influenza, Tdap, Shingrix, PCV20, COVID ?? [facility] Osi: plan to schedule follow up appts the following specialists: ?? [facility] Nephrology ?? [facility] Endo ?? [facility] GI ?? [facility] Cards ?? [facility] UroGYN Assessment & Plan (06/20/2022 6:06 PM EST): -Optometry: NABORNovember 2021 -Dental: [facility] dental clinic -Pap: reports last 2019 [...] to add microalbumin to routine blood work [id number], ordered Irritable bowel syndrome 09/21/2021 Peripheral vascular [...] 09/26/2022 HGBA1C 11.3 (H) 08/22/2021 -Followed by James Evans -Cont current medication regimen metformin 1000mg BID Lantus 40 units at bedtime Actos 15mg daily -Movement/exercise as tolerated Pt declines any med adjustments at this time, although future considerations include: -Consider DC of Actos given cardiac conditions -Consider addition of GLP1 - Referred to [facility] clinic on 08/03/24 Avoid SGLT2 [...] EST): -A1c 8.0 on 05/01/22 -Followed by James Evans -Continue on current regimen: -metformin 1000mg BID -Jardiance 10mg daily -Lantus 40 units at bedtime -Actos 15mg daily -Movement/exercise as tolerated Beta thalassemia trait 10/09/2018 Second degree uterine prolapse 10/09/2018 Urinary incontinence 10/09/2018 Overview (12/10/2023): Following with [facility] UroGYN for hx urinary incont and [...] PM EDT): Following with [facility] Heme/Onc, plan to repeat labs through PCP [id number]: CBC, CMP, magnesium, sed rate, CRP, microalbumin Continues with Procrit while Hemoglobin < 10 Assessment & Plan (05/14/2023 12:02 PM EST): Following with [facility] Heme/Onc, plan to repeat labs today through PCP Q 2 weeks: ?? CBC, CMP, magnesium, sed rate, CRP, microalbumin Assessment & Plan (12/26/2022 9:00 AM EDT): Previously followed by [facility] Heme/Onc, plan to repeat labs today through PCP Q 2 weeks: ?? CBC, CMP, magnesium, sed rate, CRP, microalbumin Assessment & Plan (11/05/2022 9:50 PM EDT): Previously followed by [facility] Heme/Onc, plan to repeat labs today through PCP. Ordered. Osteoarthritis of both knees 08/12/2017 Primary hypertension 03/16/2016 Overview (08/03/2024): Following with [facility] Cards - Dr. Middleton/CHANDU Yo. [...] Pt was seen by [facility] ID and initiated on PO doxy x 6 weeks, with possible need for surgical intervention. Following with [facility] Vascular - Dr. Vigil - and podiatry. 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 Date Type Department Care Team Description 11/26/2024 9:45 AM EDT Office Visit [facility] [address] [place] [phone] Rosana Olvera MD Hypercholesterolemia (Primary Dx); Type 2 diabetes mellitus with stage 3 chronic kidney disease, with long-term current use of insulin, unspecified whether stage 3a or 3b CKD (CMS/HCC); Screening for colorectal cancer; Encounter for screening mammogram for malignant neoplasm of breast; Preventative health care; Primary hypertension; Type 2 diabetes mellitus with hyperglycemia (CMS/HCC); Other chronic osteomyelitis of left foot (CMS/HCC) 11/26/2024 Orders Only GENERIC EXTERNAL DATA DEPARTMENT Provider, Generic External Data 11/26/[address] [address] Rosalind Cardoso FNP Lab Orders 11/26/2024 Travel 11/25/[address] [address] Rosalind Cardoso FNP Chart Prep 11/23/2024 Refill [facility] [address] [place] [address] Rosalind Cardoso FNP 11/20/2024 Orders Only [facility] [address] [place] [address] Rosalind Cardoso FNP Type 2 diabetes mellitus with stage 3 chronic kidney disease, with long-term current use of insulin, unspecified whether stage 3a or 3b CKD (CMS/HCC); Primary hypertension; Stage 3b chronic kidney disease (CMS/HCC); 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 (CMS/HCC) 11/06/2024 Orders Only [facility] [address] [place] [address] Rosalind Cardoso FNP Type 2 diabetes mellitus with stage 3 chronic kidney disease, with long-term current use of insulin, unspecified whether stage 3a or 3b CKD (CMS/HCC); Primary hypertension; Stage 3b chronic kidney disease (CMS/HCC); 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 (CMS/HCC) 10/23/2024 Orders Only [facility] [address] [place] [address] Rosalind Cardoso FNP Type 2 diabetes mellitus with stage 3 chronic kidney disease, with long-term current use of insulin, unspecified whether stage 3a or 3b CKD ([facility]/HCC); Primary hypertension; Stage 3b chronic kidney disease ([facility]/HCC); 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 ([facility]/HCC) 10/16/2024 Telephone [facility] [address] [place] [address] Rosalind Cardoso FNP 10/16/2024 Telephone [facility] [address] [place] [address] Amira Ayoub PharmD 10/13/2024 Telephone [facility] [address] [place] [address] Rosalind Cardoso FNP 10/13/2024 Telephone [facility] [address] [place] [address] Rosalind Cardoso FNP Appointment Request 10/09/2024 Orders Only [facility] [address] [place] [address] Rosalind Cardoso FNP Type 2 diabetes mellitus with stage 3 chronic kidney disease, with long-term current use of insulin, unspecified whether stage 3a or 3b CKD ([facility]/HCC); Primary hypertension; Stage 3b chronic kidney disease ([facility]/HCC); 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 ([facility]/HCC) 10/07/[address] [address] Rosalind Cardoso FNP PCP Contact (TAMY [facility] Nurses/Please call to [...] DEPARTMENT Provider, Generic External Data 10/05/2024 Telephone [facility] [address] [place] [address] Rosalind Cardoso, TAMY Results; Lab Orders 10/02/2024 Orders Only GENERIC EXTERNAL DATA DEPARTMENT Provider, Generic External Data 09/25/2024 Orders Only [facility] [address] [place] [address] Rosalind Cardoso, EEO OFFICER Type 2 diabetes mellitus with stage 3 chronic kidney disease, with long-term current use of insulin, unspecified whether stage 3a or 3b CKD (CMS/HCC) (Primary Dx); Primary hypertension; Stage 3b chronic kidney disease (CMS/HCC); 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 (CMS/HCC) 09/11/2024 Orders Only [facility] [address] [place] [address] Rosalind Cardoso, EEO OFFICER Type 2 diabetes mellitus with stage 3 chronic kidney disease, with long-term current use of insulin, unspecified whether stage 3a or 3b CKD (CMS/HCC); Primary hypertension; Stage 3b chronic kidney disease (CMS/HCC); 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 (CMS/HCC) 09/10/2024 Telephone [facility] [address] [place] [address] Amira Ayoub PharmD 09/10/2024 Refill [facility] [address] [place] [address] Rosalind Cardoso FNP Low back pain at multiple sites 09/01/2024 Telephone [facility] [address] [place] [address] Glenn Winn MA Chart Prep from Last [...] Sign Reading Time Taken Comments Blood Pressure 174/81 11/26/2024 9:23 AM EDT Pulse 98 11/26/2024 9:23 AM EDT Temperature 36.2 ??C (97.2 ??F) 11/26/2024 9:23 AM ED T Respiratory Rate 20 11/26/2024 9:23 AM EDT Oxygen Saturation 95% 11/26/2024 9:23 AM EDT Inhaled Oxygen Concentration - - Weight 86.6 kg (191 lb) 11/26/2024 9:23 AM EDT Height 152.4 cm (5') 11/26/2024 9:23 AM EDT Body Mass Index 37.3 11/26/2024 9:23 AM EDT Plan of Treatment Health Maintenance Due [...] 07/31/2022, Additional history exists COVID-19 Vaccine ( season) 2024 Influenza Vaccine (#1) 2024 SDOH Screening 08/01/2024 08/01/2023 Mammogram 11/28/2024 11/29/2023, 11/05, 11/23/2022, Additional history exists Diabetes: Hemoglobin A1C 02/26/2025 025, 08/03/2024, 10/02/2023, Additional history exists Depression Screening 08/03/2025 08/03/2024, 08/03/19 25 Disability Screening 08/03/2025 08/03/2024 Tobacco Screening 08/03/2025 [...] Diagnosis Comments POCT GLYCATED HEMOGLOBIN, TOTAL Routine 11/26/2024 9:32 AM EDT Type 2 diabetes mellitus with stage 3 chronic kidney disease, with long-term current use of insulin, unspecified whether stage 3a or 3b CKD (CMS/HCC) POCT GLUCOSE Routine 11/26/2024 9:30 AM EDT Type 2 diabetes mellitus with stage 3 chronic kidney disease, with long-term current use of insulin, unspecified whether stage 3a or 3b CKD (CMS/HCC) CBC WITH AUTO DIFFERENTIAL Routine 11/26/2024 9:01 AM EDT PROTHROMBIN TIME-INR Routine 11/26/2024 9:01 AM EDT Type 2 diabetes mellitus with stage 3 chronic kidney disease, with long-term current use of insulin, unspecified whether stage 3a or 3b CKD (CMS/HCC) Primary hypertension Stage 3b chronic kidney disease (CMS/HCC) 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 (CMS/HCC) CBC WITH AUTO DIFFERENTIAL Routine 10/06/2024 10:27 [...] Maintenance Results * (ABNORMAL) POCT HGB A1C (11/26/2024 9:32 AM EDT) Hemoglobin A1C 13.5(A) 4.0 - 6.0 % QC Media Lot # [id number] Lot# Expiration Date Blood 11/26/2024 9:32 AM EDT Rosana Olvera MD POINT OF CARE TEST ENTER /EDIT ORDERABLES Final Result * (ABNORMAL) POCT Glucose (11/26/2024 9:30 AM EDT) Pathologist [facility] Glucose Blood, POC 500(A) 60 - 200 mg/dL Comment:[facility] QC Media Lot # [id number] Lot# Expiration Date 101,526 Blood Capillary blood specimen / Unknown 11/26/2024 9:30 AM EDT Rosana Olvera MD POINT OF CARE TEST ENTER /EDIT ORDERABLES Final Result * (ABNORMAL) CBC auto differential (11/26/2024 9:01 AM EDT) Only the most recent of3 resultswithin the time period is included. [facility] White Blood Count 9.3 4.8 - 10.8 X10*3/uL [facility] Red Blood Count 4.17(L) 4.20 - 5.50 X10*6/uL [facility] Hemoglobin 8.0(L) 12.0 - 16.0 g/dl [facility] Hematocrit 26.9(L) 37.0 - 47.0 % [facility] Mean Corpuscular Volume 64.5(L) 80.0 - 98.0 fL [facility] Mean Corpuscular Hemoglobin 19.2(L) 27.0 - 33.0 pg [facility] Mean Corpuscular HGB Conc 29.7(L) 31.0 - 35.0 g/dl [facility] Red Cell Distribution Width 18.4(H) 11.0 - 16.0 % [facility] Platelet Count 281 160 - 400 X10*3/uL [facility] Mean Platelet Volume 11.7 9.4 - 12.3 fL [facility] Neutrophils Percent Auto 77.1(H) 45 - 73 % [facility] Imm Gran Pct Auto 0.5(H) 0.0 - 0.4 % [facility] Lymphocytes Percent Auto 14.5(L) 20 - 40 % [facility] Monocytes Percent Auto 5.6 2 - 11 % [facility] Eosinophils Percent Auto 1.7 0 - 4 % [facility] Basophils Percent Auto 0.6 0 - 2 % [facility] NRBC Pct Auto 0.3(H) 0.0 - 0.2 /100WBC [facility] Neutrophils Absolute Auto 7.1 2.0 - 8.3 x10*3/uL [facility] Imm Gran Abs Auto 0.05(H) 0.00 - 0.03 X10*3/uL [facility] Lymphocytes Absolute Auto 1.4 1.2 - 4.9 X10*3/uL [facility] Monocytes Absolute Auto 0.5 0.1 - 1.2 X10*3/uL [facility] Eosinophils Absolute Auto 0.2 0.0 - 0.4 X10*3/uL [facility] Basophils Absolute Auto 0.1 0.0 - 0.2 X10*3/uL [facility] NRBC Abs Auto 0.030(H) 0.0 - 0.012 X10*3/uL [facility] 11/26/2024 9:01 AM EDT 11/26/2024 11:04 AM EDT us Generic External Data Provider LAB BLOOD ORDERAB LES Final Result [facility] [address] [place] [phone] * Prothrombin Time-INR (11/26/2024 9:01 AM EDT) Only the most recent of3 resultswithin the time period is included. Prothrombin Time 11.1 10.9 - 12.4 SEC [facility] INTERNATIONAL NORM RATIO 1.0 0.9 - 1.1 [facility] Comment:INTERNATIONAL NORMAL IZED RATIO (INR) [...] 3.5 Blood Venous blood specimen / Unknown 11/26/2024 9:01 AM EDT 11/26/2024 11:04 AM EDT Rosalind Cardoso EEO OFFICER LAB BLOOD ORDERABLES Final Res ult Performing Organization Address [facility] Co de Phone Number [facility] [address] [place] [phone] * (ABNORMAL) Sed Rate by Modified Marlene (10/06/2024 10:27 AM EDT) Only the most recent of2 resultswithin the time period is included. Erythrocyte Sedimentation Rate 53(H) 0 - 20 MM/HR [facility] Comment:Patients with polycy themia and many hemoglobin abnormalitiesmay have depressed sed rates whereas patients with anemiamay have elevated sed rates. Blood Venous blood specimen / Unknown 10/06/2024 10:27 AM EDT 10/06/2024 10:27 AM EDT Rosalind Cardoso [facility] LAB BLOOD ORDERABLES Final Res ult Performing Organization Address [facility] Co de Phone Number [facility] [address] [place] [phone] * (ABNORMAL) C-reactive Protein (10/06/2024 10:27 AM EDT) Only the most recent of2 resultswithin the time period is included. C Reactive Protein 0.59(H) < or = 0.50 mg/dL [facility] Blood Venous blood specimen / Unknown 10/06/2024 10:27 AM EDT 10/06/2024 10:27 AM EDT Rosalind Cardoso [facility] LAB BLOOD ORDERABLES Final Res ult Performing Organization Address [facility]/ZIP Co de Phone Number [facility] [address] [place] [address] [phone] * Magnesium (10/06/2024 10:27 AM EDT) Only the most recent of2 resultswithin the time period is included. Magnesium 2.0 1.6 - 2.6 mg/dL [facility] Blood Venous blood specimen / Unknown 10/06/2024 10:27 AM EDT 10/06/2024 10:27 AM EDT Rosalind Cardoso [facility] LAB BLOOD ORDERABLES Final Res ult Performing Organization Address [facility] de Phone Number [facility] [address] [place] [address] [phone] * (ABNORMAL) Comprehensive Metabolic Panel (10/06/2024 10:27 AM EDT) Only the most recent of2 resultswithin the time period is included. Sodium 134(L) 135 - 145 mmol/L [facility] Potassium 4.4 3.3 - 5.1 mmol/L [facility] Chloride 101 96 - 108 mmol/L [facility] Carbon Dioxide 24 22 - 29 mmol/L [facility] Anion Gap 13 12 - 20 [facility] Urea Nitrogen (BUN) 85(H) 9 - 16 mg/dL [facility] Creatinine, Serum 2.35(H) 0.5 - 1.4 mg/dL [facility] Estimated Glomerular Filt Rate 21 [facility] Comment:Chronic Kidney Disea se: Estimated GFR < 60 mL/min/1.21h4Licuxx Kidney Disease: Estimated GFR < 15 mL/min/1.73m2 Glucose 298(H) 60 - 115 mg/dL [facility] Calcium 9.6 8.4 - 10.2 mg/dL [facility] Bilirubin, Total 0.3 0.0 - 1.0 mg/dL [facility] Aspartate Amino Transferase 15 5 - 31 U/L [facility] Alanine Aminotransferase 7 0 - 31 U/L [facility] Total Protein 6.9 6.5 - 8.0 g/dL [facility] Albumin Level 3.6 3.5 - 5.0 g/dL [facility] Alkaline Phosphatase 91 39 - 117 U/L [facility] Blood Venous blood specimen / Unknown 10/06/2024 10:27 AM EDT 10/06/2024 10:27 AM EDT us Rosalind Cardoso EEO OFFICER LAB BLOOD ORDERABLES Final Res ult [facility] [address] [place] [phone] [phone] * (ABNORMAL) Lipid Panel, Standard (10/02/2024 3:12 PM EDT) Triglycerides 323(H) <150 mg/dL [facility] Comment:Desirable Triglyceri de: less than 150 mg/dLBorderline High Triglyceride 150-199 mg/dLHigh Triglyceride: 200-499 mg/dLVery High Triglyceride: greater than or equal to 5OO mg/dL Cholesterol 311(H) <200 mg/dL [facility] Comment:Desirable Cholestero l: less than 200 mg/dLBorderline High Cholesterol: 200-239 mg/dLHigh Cholesterol: greater than 239 mg/dL LDL Cholesterol Calculated 212(H) <100 mg/dL [facility] Comment:Desirable LDL: less than 100 mg/dLNear Optimal/Above Optimal LDL: 110- 129 mg/dLBorderline High LDL: 130-159 mg/dLHigh LDL: 160-189 mg/dLVery High LDL: greater than or equal to 190 mg/dL HDL Cholesterol 35(L) >40 mg/dL [facility] Comment:Desirable HDL: great er than 40 mg/dL Note: This HDL assay may give artificially low results in patients with liver disease. 10/02/2024 3:12 PM EDT 10/02/2024 3:12 PM EDT us Generic External Data Provider LAB BLOOD ORDERAB LES Final Result [facility] [address] [facility] [place] [address] [phone] * BI Mammogram Screening Tomosynthesis Bilateral (11/29/2023 2:40 PM EDT) Anatomical Region Laterality Modality Breast Bilateral Mammography 11/29/2023 2:40 PM EDT Narrative 12/27/2023 3:26 PM EDT ? [facility] ? [address] ?[place] [address] ? Mammography Report ? Signed ? Patient: Manus,Mitra ?MR#: [id number] ? : 1965 ?Acct:[id number] ? Age/Sex: 58 / F ?ADM Date: 11/29/23 ? Loc: HO.MAMMO ? Attending Dr: Rosalind Cardoso EEO OFFICER ? Ordering Physician: Rosalind Cardoso EEO OFFICER ?Results: 1Negat ?? moncho ? Date of Service: 11/29/23 ?Follow Up: 1 Year From Orig ?? inal Mammogram ? Procedure(s): MM tomosynthesis screening BI ?? Accession Number(s): [id number] ? cc: Rosalind Cardoso EEO OFFICER ? EXAMINATION: ?? MM SCREENING DIGITAL BREAST [...] 1522 ? DD/ 1440 ? TD/TT: ? Relay Repairer: ? Procedure Note Mily Dotson - 12/27/2023 [facility] [address] [place] [address] Mammography Report Signed Patient: Dany Parish#: [id number] : 1965Acct:[id number] Age/Sex: 58 / FADM Date: 11/29/23 Loc: [facility] Attending Dr: Rosalind Cardoso EEO OFFICER Ordering Physician: Rosalind Cardoso FNPResults: 1Negat moncho Date of Service: 11/29/23Follow Up: 1 Year From Orig inal Mammogram Procedure(s): MM tomosynthesis screening BI Accession Number(s): [id number] cc: Rosalind Cardoso EXAMINATION: MM SCREENING DIGITAL [...] in OV> 12/27/23 1522 DD/ 1440 TD/TT: Relay Repairer: Rosalind MORELOS IMG BI PROCEDURES Final Result * HEPATITIS C AB W/REFL TO HCV RNA, QN, PCR (08/22/2021 8:22 AM EST) HEPATITIS C ANTIBODY NON-REACT MONCHO NON-REACT MONCHO [facility] INDEX 0.02 <1.00 [facility] Comment: ?? HCV antibody was non-reactive. There is no laboratory ?? evidence of HCV infection. ?? In most cases, no further action is required. However, if recent HCV exposure is suspected, a test for HCV RNA (test code 71806) is suggested. ?? For additional information please refer to http://education.Zonoff/faq/PMA90o4 (This link is being provided for informational/ educational purposes only.) ?? 08/22/2021 8:22 AM EST us Rosalind MORELOS HISTORICAL/NON ORDERABLE LABS Final Result Performing Organization Address [facility] Co de Phone Number [facility] [address] * HIV 1/2 ANTIGEN/ANTIBODY,FOURTH GENERATION W/RFL (08/22/2021 8:22 AM EST) HIV-1/2 ANTIGEN AND ANTIBODIES, 4TH GENERATION W/ REFLEX NON-REACT MONCHO NON-REACT MONCHO [facility] Comment: HIV-1 antigen and [...] ? For additional information please refer to http://education.Zonoff/faq/IOX361 (This link is being provided for informational/ educational purposes only.) ? The performance of this assay has not been clinically validated in patients less than 2 years old. ?? 08/22/2021 8:22 AM EST Rosalind Cardoso [facility] LAB BLOOD ORDERABLES Final Res ult Performing Organization Address [facility] de Phone Number [facility] [address] from Last 3 Months or Most Recently Relevant to Health Maintenance Insurance [facility] ONE CARE < 65 Care Teams Optical Technician Relationship Specialty Start Date End Date Rosalind Cardoso FNP [address] [place] [address] PCP - General Family Medicine 04/28/21
--- OUTSIDE RECORDS SUMMARY | 2024-11-26 11:50 | XMS_ITS | Encounter Summary ---
Author Organization [employer] Address [address] [place] [address] 7 [place] [address] Care Team Providers Care Technical Manager Name Role Phone Rosalind Cardoso Primary Care Provider [phone] Reason for Visit * Reason Onset Date Comments Appointment Request 10/13/2024 Encounter Details Date Type Department Care Team ([facility] st Contact Info) Description 10/13/[address] [facility] MEDICINE [address] [place] [address] Rosalind Cardoso FNP [address] [place] [address] Appointment Request Social History Tobacco Use Types [...] documented as of this encounter Care Teams Technical Manager Relationship Specialty Start Date End Date Rosalind Cardoso FNP [address] [place] [address] PCP - General Family Medicine 04/28/21 documented as of this encounter
--- OUTSIDE RECORDS SUMMARY | 2024-11-26 11:50 | XMS_ITS | Encounter Summary ---
Author Organization [employer] Address [address] [place] [address] 7t [place] [address] Care Team Providers Care Unit Receptionist Name Role Phone Rosalind Cardoso TAMY Primary Care Provider [phone] Encounter Details Date Type Department Care Team ([facility] Contact Info) Description 11/26/2024 Orders Only GENERIC EXTERNAL DATA DEPARTMENT [...] t he electric, gas, oil or water [employer] threatened to shut off services in your [...] Diagnosis Comments CBC WITH AUTO DIFFERENTIAL Routine 11/26/2024 9:01 AM EDT documented in this encounter Results * (ABNORMAL) CBC auto differential (11/26/2024 9:01 AM EDT) White Blood Count 9.3 4.8 - 10.8 X10*3/uL [facility] Red Blood Count 4.17(L) 4.20 - 5.50 X10*6/uL [facility] Hemoglobin 8.0(L) 12.0 - 16.0 g/dl [facility] Hematocrit 26.9(L) 37.0 - 47.0 % [facility] Mean Corpuscular Volume 64.5(L) 80.0 - 98.0 fL [facility] Mean Corpuscular Hemoglobin 19.2(L) 27.0 - 33.0 pg [facility] Mean Corpuscular HGB Conc 29.7(L) 31.0 - 35.0 g/dl [facility] Red Cell Distribution Width 18.4(H) 11.0 - 16.0 % [facility] Platelet Count 281 160 - 400 X10*3/uL [facility] Mean Platelet Volume 11.7 9.4 - 12.3 fL [facility] Neutrophils Percent Auto 77.1(H) 45 - 73 % [facility] Imm Gran Pct Auto 0.5(H) 0.0 - 0.4 % [facility] Lymphocytes Percent Auto 14.5(L) 20 - 40 % [facility] Monocytes Percent Auto 5.6 2 - 11 % [facility] Eosinophils Percent Auto 1.7 0 - 4 % [facility] Basophils Percent Auto 0.6 0 - 2 % [facility] NRBC Pct Auto 0.3(H) 0.0 - 0.2 /100WBC [facility] Neutrophils Absolute Auto 7.1 2.0 - 8.3 x10*3/uL [facility] Imm Gran Abs Auto 0.05(H) 0.00 - 0.03 X10*3/uL [facility] Lymphocytes Absolute Auto 1.4 1.2 - 4.9 X10*3/uL [facility] Monocytes Absolute Auto 0.5 0.1 - 1.2 X10*3/uL [facility] Eosinophils Absolute Auto 0.2 0.0 - 0.4 X10*3/uL [facility] Basophils Absolute Auto 0.1 0.0 - 0.2 X10*3/uL [facility] NRBC Abs Auto 0.030(H) 0.0 - 0.012 X10*3/uL [facility] 11/26/2024 9:01 AM EDT 11/26/2024 11:04 AM EDT us Generic External Data Provider LAB BLOOD ORDERAB LES Final Result Performing Organization Address City/State/[facility] Co de Phone Number [facility] [address] [place] [address] [phone] documented in this encounter Visit Diagnoses Not on filedocumented in this encounter Additional Health Concerns Assessment Noted Time PHQ-9 Depression Total Score: 6 08/03/19 25 9:07 AM EST documented as of this encounter Care Teams Unit Receptionist Relationship Specialty Start Date End Date Rosalind Cardoso FNP [address] [place] [address] PCP - General Family Medicine 04/28/21 documented as of this encounter
--- OUTSIDE RECORDS SUMMARY | 2024-11-26 11:50 | XMS_ITS | Encounter Summary ---
Author Organization [employer] Address [address] [facility] 7t [place] [address] Care Team Providers Care Community Health Nurse Supervisor Name Role Phone Rosalind Cardoso Primary Care Provider [phone] Encounter Details Date Type Department Care Team (Late st Contact Info) Description 07/10/2024 Orders Only [facility] MEDICINE [address] [place] [address] Rosalind Cardoso FNP [address] [place] [address] Type 2 diabetes mellitus with stage 3 [...] as of this encounter Care Teams Community Health Nurse Supervisor Relationship Specialty Start Date End Date Rosalind Cardoso FNP [address] [place] [address] PCP - General Family Medicine 04/28/21 documented as of this encounter
--- OUTSIDE RECORDS SUMMARY | 2024-11-26 11:50 | XMS_ITS | Encounter Summary ---
Author Organization [employer] Address [address] [facility] 7t [place] [address] Care Team Providers Care Automotive Window Tinter Name Role Phone Rosalind Cardoso Primary Care Provider [phone] Encounter Details Date Type Department Care Team (Late st Contact Info) Description 07/24/2024 Orders Only [facility] MEDICINE [address] [place] [address] Rosalind Cardoso FNP [address] [place] [address] Type 2 diabetes mellitus with stage 3 [...] documented as of this encounter Care Teams Automotive Window Tinter Relationship Specialty Start Date End Date Rosalind Cardoso FNP [address] [place] [address] PCP - General Family Medicine 04/28/21 documented as of this encounter
--- OUTSIDE RECORDS SUMMARY | 2024-11-26 11:50 | XMS_ITS | Encounter Summary ---
Author Organization [employer] Address [address] [place] [address] [facility] [place] [address] Care Team Providers Care Gas Meter Installer Name Role Phone Rosalind Cardoso Primary Care Provider [phone] Reason for Visit * Reason Comments Med Refill Encounter Details Date Type Department Care Team ([facility] st Contact Info) Description 07/10/2022 Refill [facility] CHC MED & PEDS [address] [place], [place] [phone] Rosalind Cardoso FNP [address] [place], [place] [phone] Primary hypertension; Type 2 diabetes mellitus with other specified complication, unspecified whether keno terminal operator insulin use ([facility]) Social History Tobacco Use Types [...] mellitus with other specified complication, unspecified whether jail insulin use ([facility]) documented in this encounter Care Teams Gas Meter Installer Relationship Specialty Start Date End Date Rosalind Cardoso FNP [address] [place] [address] PCP - General Family Medicine 04/28/21 documented as of this encounter
--- OUTSIDE RECORDS SUMMARY | 2024-11-26 11:50 | XMS_ITS | Encounter Summary ---
Author Organization [employer] Address [address] [place] [address] 7 [place] [address] Care Team Providers Care Livestock Sales Representative Name Role Phone Rosalind Cardoso Primary Care Provider [phone] Reason for Visit * Reason Onset Date Comments Nurse Triage 06/08/2024 Encounter Details Date Type Department Care Team ([facility] st Contact Info) Description 06/08/2024 Telephone [facility] MEDICINE [address] [place] [address] Rosalind Cardoso FNP [address] [place] [address] Nurse Triage Social History Tobacco Use Types [...] nereyda. Pt is advised to come to [facility] today to be seen by provider but, unable to obtain transportation. Pt will come tomorrow to [facility]. Hours 830am - 800pm given. [...] documented as of this encounter Care Teams Livestock Sales Representative Relationship Specialty Start Date End Date Rosalind Cardoso FNP [address] [place] [address] PCP - General Family Medicine 04/28/21 documented as of this encounter
--- OUTSIDE RECORDS SUMMARY | 2024-11-26 11:50 | XMS_ITS | Encounter Summary ---
Author Organization [employer] Address [address] [place] [address] 7t [place] [address] Care Team Providers Care Wheat Farmer Name Role Phone Rosalind Cardoso Primary Care Provider [phone] Encounter Details Date Type Department Care Team ([facility] Contact Info) Description 06/22/2022 Telephone [facility] MEDICINE [address] [place] [address] Emily Matthews RN Social History Tobacco Use [...] on filedocumented in this encounter Care Teams Wheat Farmer Relationship Specialty Start Date End Date Rosalind Cardoso FNP [address] [place] [address] PCP - General Family Medicine 04/28/21 documented as of this encounter
--- OUTSIDE RECORDS SUMMARY | 2024-11-26 11:50 | XMS_ITS | Encounter Summary ---
Author Organization [employer] Address [address] [place] [address] 7 [place] [address] Care Team Providers Care Grill Chef Name Role Phone TeoRosalind bishop TAMY Primary Care Provider [phone] Encounter Details Date Type Department Care Team (Latest Contact Info) Description 11/26/2024 9:45 AM EDT Office Visit [facility] MEDICINE [address] [place] [address] Rosana Olvera MD [address] [place], [place] [phone] Hypercholesterolemia (Primary Dx); Type 2 diabetes mellitus with stage 3 chronic kidney disease, with long-term current use of insulin, unspecified whether stage 3a or 3b CKD (CMS/HCC); Screening for colorectal cancer; Encounter for screening mammogram for malignant neoplasm of breast; Preventative health care; Primary hypertension; Type 2 diabetes mellitus with hyperglycemia (CMS/HCC); Other chronic osteomyelitis of left foot (CMS/HCC) Social History Tobacco Use Types Packs/Day [...] Mass Index 37.3 11/26/2024 9:23 AM EDT documented in this encounter Plan of Treatment Scheduled Orders Name Type Priority Associated Diagnoses Orde r Schedule T-SPOT??.TB Lab Routine Type 2 diabetes mellitus with hyperglycemia ([facility]/HCC) Expected: 11/26/2024 (Approximate), Expires: 11/26/2025 documented as of this encounter Procedures Procedure [...] encounter Results * (ABNORMAL) POCT HGB A1C (11/26/2024 9:32 AM EDT) Hemoglobin A1C 13.5(A) 4.0 - 6.0 % QC Media Lot # [id number] Lot# Expiration Date Blood 11/26/2024 9:32 AM EDT Rosana Olvera MD POINT OF CARE TEST ENTER /EDIT ORDERABLES Final Result * (ABNORMAL) POCT Glucose (11/26/2024 9:30 AM EDT) Glucose Blood, POC 500(A) 60 - 200 mg/dL Comment:[facility] QC Media Lot # [id number] Lot# Expiration Date 101,526 Blood Capillary blood specimen / Unknown 11/26/2024 9:30 AM EDT Rosana Olvera MD POINT OF CARE TEST ENTER /EDIT ORDERABLES Final Result documented in this encounter Visit Diagnoses Diagnosis Hypercholesterolemia- Primary Pure hypercholesterolemia Type 2 diabetes mellitus with stage 3 chronic kidney disease, with long-term current use of insulin, unspecified whether stage 3a or 3b CKD (CMS/HCC) Screening for colorectal cancer Encounter for screening mammogram for malignant neoplasm of breast Preventative health care Routine general medical examination at a health care facility Primary hypertension Unspecified essential hypertension Type 2 diabetes mellitus with hyperglycemia (CMS/HCC) Other chronic osteomyelitis of left foot (CMS/HCC) documented in this encounter Additional Health Concerns Assessment Noted Time PHQ-9 Depression Total Score: 6 08/03/19 25 9:07 AM EST documented as of this encounter Care Teams Grill Chef Relationship Specialty Start Date End Date Rosalind Cardoso FNP [address] [place] [address] PCP - General Family Medicine 04/28/21 documented as of this encounter
--- OUTSIDE RECORDS SUMMARY | 2024-11-26 11:50 | XMS_ITS | Encounter Summary ---
Author Organization [employer] Address [address] [facility] 7t [place] [address] Care Team Providers Care Sprinkler Fitter Name Role Phone Rosalind Cardoso TAMY Primary Care Provider [phone] Encounter Details Date Type Department Care Team ([facility] st Contact Info) Description 05/23/2023 Abstract [facility] MEDICINE [address] [place], [place] [phone] Adela Pena Social History Tobacco Use Types [...] documented as of this encounter Care Teams Sprinkler Fitter Relationship Specialty Start Date End Date Rosalind Cardoso FNP [address] [place] [address] PCP - General Family Medicine 04/28/21 documented as of this encounter
--- OUTSIDE RECORDS SUMMARY | 2024-11-26 11:50 | XMS_ITS | Encounter Summary ---
Author Organization [employer] Address [address] [place] [address] 7 [place] [address] Care Team Providers Care Clay Digger Name Role Phone Rosalind Cardoso Primary Care Provider [phone] Encounter Details Date Type Department Care Team ([facility] Contact Info) Description 11/20/2024 Orders Only [facility] CHC MED & PEDS [address] [place], [place] [phone] Rosalind Cardoso FNP 505 [place] [address] Type 2 diabetes mellitus with stage 3 [...] the past 12 months, has t he [employer] gas, oil or water company threatened to [...] Date/Time Associated Diagnosis Comments PROTHROMBIN TIME-INR Routine 11/26/2024 9:01 AM EDT Type 2 diabetes mellitus with stage 3 chronic kidney disease, with long-term current use of insulin, unspecified whether stage 3a or 3b CKD ([facility]) Primary hypertension Stage 3b chronic kidney disease ([facility]) 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 ([facility]) documented in this encounter Results * Prothrombin Time-INR (11/26/2024 9:01 AM EDT) Prothrombin Time 11.1 10.9 - 12.4 SEC [facility] [...] AM EDT 11/26/2024 11:04 AM EDT Rosalind MORELOS LAB BLOOD ORDERABLES Final Res ult [facility] [address] [place] [address] [phone] documented in this encounter Visit Diagnoses [...] as of this encounter Care Teams Clay Digger Relationship Specialty Start Date End Date Rosalind Cardoso FNP [address] [place] [address] PCP - General Family Medicine 04/28/21 documented as of this encounter
--- OUTSIDE RECORDS SUMMARY | 2024-11-26 11:50 | XMS_ITS | Encounter Summary ---
Author Organization [employer] Address [address] [place] [address] 7 [place] [address] Care Team Providers Care Washery Boss Name Role Phone Rosalind Cardoso Primary Care Provider [phone] Encounter Details Date Type Department Care Team ([facility] st Contact Info) Description 07/31/2024 Orders Only [facility] CHC MED & PEDS [address] [place], [place] [phone] Rosalind Cardoso FNP 505 [place] [address] Type 2 diabetes mellitus with stage 3 [...] documented as of this encounter Care Teams Washery Boss Relationship Specialty Start Date End Date Rosalind Cardoso FNP [address] [place] [address] PCP - General Family Medicine 04/28/21 documented as of this encounter
--- OUTSIDE RECORDS SUMMARY | 2024-11-26 11:50 | XMS_ITS | Encounter Summary ---
Author Organization [employer] Address [address] [place] [address] 7 [place] [address] Care Team Providers Care Top Waddy Name Role Phone Rosalind Cardoso Primary Care Provider [phone] Reason for Visit * Reason Onset Date Comments Lab Orders 11/26/2024 Encounter Details Date Type Department Care Team ([facility] st Contact Info) Description 11/26/2024 Telephone [facility] MEDICINE [address] [place] [address] Rosalind Cardoso FNP [address] [place] [address] Lab Orders Social History Tobacco Use Types [...] encounter Miscellaneous Notes * Telephone Encounter - Abigail Aguirre [place] - 11/26/2024 10:20 AM EDT Tc to [facility] to ask if TB spot order can be added to blood work pt had done this morning. Per lab, TB requires a specific tube, and they need a redraw blood. I called pt, who agreed to get blood work done. documented in this encounter Plan of Treatment Not on file documented as of this encounter Visit Diagnoses Not on filedocumented in this encounter Additional Health Concerns Assessment Noted Time PHQ-9 Depression Total Score: 6 08/03/19 25 9:07 AM EST documented as of this encounter Care Teams Top Waddy Relationship Specialty Start Date End Date Rosalind Cardoso FNP [address] [place] [address] PCP - General Family Medicine 04/28/21 documented as of this encounter
--- OUTSIDE RECORDS SUMMARY | 2024-11-26 11:50 | XMS_ITS | Encounter Summary ---
Author Organization [employer] Address [address] [place] [address] 7t [place] [address] Care Team Providers Care Lab Support Technician Name Role Phone Rosalind Cardoso Primary Care Provider [phone] Reason for Visit * Reason Comments Med Refill Encounter Details Date Type Department Care Team ([facility] Contact Info) Description 05/28/2023 Refill [facility] CHC MED & PEDS [address] [place], [place] [phone] Rosalind Cardoso FNP [address] [place] [address] Other chronic osteomyelitis of left foot (CMS/HCC); [...] as of this encounter Care Teams Lab Support Technician Relationship Specialty Start Date End Date Rosalind Cardoso FNP [address] [place] [address] PCP - General Family Medicine 04/28/21 documented as of this encounter
--- OUTSIDE RECORDS SUMMARY | 2024-11-26 11:50 | XMS_ITS | Encounter Summary ---
Author Organization [employer] Address [address] [facility] 7t [place] [address] Care Team Providers Care Rubber Calender Helper Name Role Phone Rosalind Cardoso TAMY Primary Care Provider [phone] Encounter Details Date Type Department Care Team (Latest Contact Info) Description 11/26/2024 Travel Social History Tobacco Use Types Packs/Day [...] documented as of this encounter Care Teams Rubber Calender Helper Relationship Specialty Start Date End Date Rosalind Cardoso FNP [address] [place] [address] PCP - General Family Medicine 04/28/21 documented as of this encounter
--- OUTSIDE RECORDS SUMMARY | 2024-11-26 11:50 | XMS_ITS | Encounter Summary ---
Author Organization [employer] Address [address] [place] [address] 7 [place] [address] Care Team Providers Care Manager Field Service Name Role Phone Rosalind Cardoso Primary Care Provider [phone] Encounter Details Date Type Department Care Team ([facility] st Contact Info) Description 10/09/2024 Orders Only [facility] CHC MED & PEDS [address] [place], [place] [phone] Rosalind Cardoso FNP [address] [place] [address] Type 2 diabetes mellitus with stage 3 [...] as of this encounter Care Teams Manager Field Service Relationship Specialty Start Date End Date Rosalind Cardoso FNP [address] [place] [address] PCP - General Family Medicine 04/28/21 documented as of this encounter
--- OUTSIDE RECORDS SUMMARY | 2024-11-26 11:50 | XMS_ITS | Encounter Summary ---
Author Organization [employer] Address [address] [place] [address] 7 [place] [address] Care Team Providers Care Multiple Resaw Operator Name Role Phone Rosalind Cardoso Primary Care Provider [phone] Encounter Details Date Type Department Care Team ([facility] st Contact Info) Description 05/22/2024 Orders Only [facility] MED & PEDS [address] [place], [place] [phone] Rosalind Cardoso FNP [address] [place] [address] Type 2 diabetes mellitus with stage 3 [...] mellitus with other specified complication, unspecified whether intermediate manager insulin use (CMS/HCC); Fibromyalgia Social History Tobacco [...] stage 3a or 3b CKD ([facility]) Primary hypertension Unspecified essential hypertension Stage 3b chronic kidney disease ([facility]) 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 ([facility]) Low back pain at multiple sites Type 2 diabetes mellitus with hyperglycemia, with long-term current use of insulin ([facility]) Type 2 diabetes mellitus with foot ulcer, with long-term current use of insulin ([facility]) Pure hypercholesterolemia, unspecified Pain Generalized pain Type 2 diabetes mellitus with hyperglycemia ([facility]) Type 2 diabetes mellitus with other specified complication, unspecified whether half-way insulin use ([facility]) Fibromyalgia Unspecified myalgia and myositis documented in this encounter Additional Health Concerns Assessment Noted Time PHQ-9 Depression Total Score: 0 12/26/19 23 1:09 PM EDT documented as of this encounter Care Teams Multiple Resaw Operator Relationship Specialty Start Date End Date Phalen, Rosalind, MEAT PUMPER [address] [place] [address] PCP - General Family Medicine 04/28/21 documented as of this encounter
--- OUTSIDE RECORDS SUMMARY | 2024-11-26 11:50 | XMS_ITS | Encounter Summary ---
Author Organization [employer] Address [address] [place] [address] 7 [place] [address] Care Team Providers Care Account Services Manager Name Role Phone Rosalind Cardoso Primary Care Provider [phone] Encounter Details Date Type Department Care Team ([facility] st Contact Info) Description 07/17/2024 Orders Only [facility] CHC MED & PEDS [address] [place], [place] [phone] Rosalind Cardoso FNP [address] [place] [address] Type 2 diabetes mellitus with stage 3 [...] by Modified Westergren (08/04/2024 10:17 AM EST) Erythrocyte Sedimentation Rate 50(H) 0 - 20 MM/HR [facility] Comment:Patients with polycy themia and many hemoglobin abnormalitiesmay have depressed sed rates whereas patients with anemiamay have elevated sed rates. Blood Venous blood specimen / Unknown 08/04/2024 10:17 AM EST 08/04/2024 10:17 AM EST Rosalind Cardoso [employer] LAB BLOOD ORDERABLES Final Res ult Performing Organization Address [facility] Co de Phone Number [facility] [address] [place] [phone] * Magnesium (08/04/2024 10:17 AM EST) [facility] Magnesium 2.3 1.6 - 2.6 mg/dL [facility] Blood Venous blood specimen / Unknown 08/04/2024 10:17 AM EST 08/04/2024 10:17 AM EST Rosalind Cardoso [facility] LAB BLOOD ORDERABLES Final Res ult Performing Organization Address [facility] de Phone Number [facility] [address] [place] [phone] * (ABNORMAL) Comprehensive Metabolic Panel (08/04/2024 10:17 AM EST) Pathologist [facility] Sodium 134(L) 135 - 145 mmol/L [facility] Potassium 4.1 3.3 - 5.1 mmol/L [facility] Chloride 100 96 - 108 mmol/L [facility] Carbon Dioxide 27 22 - 29 mmol/L [facility] Anion Gap 11(L) 12 - 20 [facility] Urea Nitrogen (BUN) 50(H) 9 - 16 mg/dL [facility] Creatinine, Serum 1.56(H) 0.5 - 1.4 mg/dL [facility] Estimated Glomerular Filt Rate 34 [facility] Comment:Chronic Kidney Disea se: Estimated GFR < 60 mL/min/[id number] Kidney Disease: Estimated GFR < 15 mL/min/1.73m2 Glucose 265(H) 60 - 115 mg/dL [facility] Calcium 9.1 8.4 - 10.2 mg/dL [facility] Bilirubin, Total 0.2 0.0 - 1.0 mg/dL [facility] Aspartate Amino Transferase 16 5 - 31 U/L [facility] Alanine Aminotransferase <6 0 - 31 U/L [facility] Total Protein 7.6 6.5 - 8.0 g/dL [facility] Albumin Level 3.6 3.5 - 5.0 g/dL [facility] Alkaline Phosphatase 101 39 - 117 U/L [facility] Blood Venous blood specimen / Unknown 08/04/2024 10:17 AM EST 08/04/2024 10:17 AM EST us Rosalind MORELOS LAB BLOOD ORDERABLES Final Res ult [facility] [address] [place] [phone] documented in this encounter Visit Diagnoses Diagnosis Type 2 diabetes mellitus with stage 3 chronic kidney disease, with long-term current use of insulin, unspecified whether stage 3a or 3b CKD (CMS/HCC) Primary hypertension Unspecified essential hypertension Stage 3b chronic kidney disease ([facility]/HCC) 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 ([facility]/HCC) documented in this encounter Additional Health Concerns Assessment Noted Time PHQ-9 Depression Total Score: 0 12/26/19 23 1:09 PM EDT documented as of this encounter Care Teams Account Services Manager Relationship Specialty Start Date End Date Rosalind Cardoso FNP [address] [place] [address] PCP - General Family Medicine 04/28/21 documented as of this encounter
--- OUTSIDE RECORDS SUMMARY | 2024-11-26 11:50 | XMS_ITS | Encounter Summary ---
Author Organization [employer] Address [address] [place] [address] 7 [place] [address] Care Team Providers Care Computer Teacher Name Role Phone Rosalind Cardoso Primary Care Provider [phone] Reason for Visit * Reason Comments Med Refill Encounter Details Date Type Department Care Team ([facility] Contact Info) Description 11/23/2024 Refill [facility] CHC MED & PEDS [address] [place], [place] [phone] Rosalind Cardoso FNP [address] [place] [address] Social History Tobacco Use Types Packs/Day Years [...] able to get blood work completed at [facility] (she may be better candidate for home [...] as of this encounter Care Teams Computer Teacher Relationship Specialty Start Date End Date Rosalind Cardoso FNP [address] [place] [phone] PCP - General Family Medicine 04/28/21 documented as of this encounter
--- OUTSIDE RECORDS SUMMARY | 2024-11-26 11:50 | XMS_ITS | Encounter Summary ---
Author Organization [employer] Address [address] [place] [address] 7 [place] [address] Care Team Providers Care Hoist Mechanic Name Role Phone Rosalind Cardoso Primary Care Provider [phone] Encounter Details Date Type Department Care Team ([facility] st Contact Info) Description 11/06/2024 Orders Only [facility] CHC MED & PEDS [address] [place], [place] [phone] Rosalind Cardoso FNP [address] [place] [address] Type 2 diabetes mellitus with stage 3 [...] documented as of this encounter Care Teams Hoist Mechanic Relationship Specialty Start Date End Date Rosalind Cardoso FNP [address] [place] [phone] PCP - General Family Medicine 04/28/21 documented as of this encounter
--- OUTSIDE RECORDS SUMMARY | 2024-11-26 11:50 | XMS_ITS | Encounter Summary ---
Author Organization [employer] Address [address] [facility] 7t [place] [address] Care Team Providers Care Porcelain Enameling Supervisor Name Role Phone Rosalind Cardsoo Primary Care Provider [phone] Encounter Details Date Type Department Care Team ([facility] st Contact Info) Description 06/25/2023 Telephone [facility] [address] [place] [address] Rosalind Cardoso FNP [address] [place] [address] Social History Tobacco Use Types Packs/Day Years [...] documented as of this encounter Care Teams Porcelain Enameling Supervisor Relationship Specialty Start Date End Date Rosalind Cardoso FNP [address] [place] [address] PCP - General Family Medicine 04/28/21 documented as of this encounter
--- OUTSIDE RECORDS SUMMARY | 2024-11-26 11:50 | XMS_ITS | Encounter Summary ---
Author Organization [employer] Address [address] [place] [address] 7 [place] [address] Care Team Providers Care Sock Boarder Name Role Phone Rosalind Cardoso Primary Care Provider [phone] Encounter Details Date Type Department Care Team ([facility] st Contact Info) Description 10/23/2024 Orders Only [facility] CHC MED & PEDS [address] [place], [place] [phone] Rosalind Cardoso FNP [address] [place] [address] Type 2 diabetes mellitus with stage 3 [...] documented as of this encounter Care Teams Sock Boarder Relationship Specialty Start Date End Date Rosalind Cardoso FNP [address] [place] [phone] PCP - General Family Medicine 04/28/21 documented as of this encounter
--- OUTSIDE RECORDS SUMMARY | 2024-11-26 11:50 | XMS_ITS | Encounter Summary ---
Author Organization [employer] Address [address] [facility] 7t [place] [address] Care Team Providers Care Clinical Sociologist Name Role Phone Rosalind Cardoso Primary Care Provider [phone] Encounter Details Date Type Department Care Team (Late st Contact Info) Description 06/12/2024 Orders Only [facility] MEDICINE [address] [place] [address] Rosalind Cardoso FNP [address] [place] [address] Type 2 diabetes mellitus with stage 3 [...] unspecified whether stage 3a or 3b CKD ([facility]) Myalgia MAGNESIUM Routine 06/23/2024 10:31 AM EST Type 2 diabetes mellitus with stage 3 chronic kidney disease, with long-term current use of insulin, unspecified whether stage 3a or 3b CKD ([facility]/HCC) Myalgia documented in this encounter Results * C-reactive Protein (06/23/2024 10:31 AM EST) C Reactive Protein 0.50 < or = 0.50 mg/dL [facility] Blood Venous blood specimen / Unknown 06/23/2024 10:31 AM EST 06/23/2024 10:31 AM EST us Rosalind Cardoso TECHNICIAN TERMINAL AND REPEATER LAB BLOOD ORDERABLES Final Res ult [facility] [address] [place] [phone] * Magnesium (06/23/2024 10:31 AM EST) Magnesium 1.8 1.6 - 2.6 mg/dL [facility] Blood Venous blood specimen / Unknown 06/23/2024 10:31 AM EST 06/23/2024 10:31 AM EST us Rosalind MORELOS LAB BLOOD ORDERABLES Final Res ult [facility] [address] [place] [phone] documented in this encounter Visit Diagnoses [...] documented as of this encounter Care Teams Clinical Sociologist Relationship Specialty Start Date End Date Rosalind Cardoso FNP [address] [place] [phone] PCP - General Family Medicine 04/28/21 documented as of this encounter
--- OUTSIDE RECORDS SUMMARY | 2024-11-26 11:50 | XMS_ITS | Encounter Summary ---
Author Organization [employer] Address [address] [place] [address] 7 [place] [address] Care Team Providers Care Carriage Operator Name Role Phone Rosalind Cardoso Primary Care Provider Encounter Details Date Type Department Care Team ([facility] st Contact Info) Description 06/05/2024 Orders Only [facility] CHC MED & PEDS [address] [place], [place] [phone] Rosalind Cardoso FNP [address] [place] [address] Type 2 diabetes mellitus with stage 3 [...] stage 3a or 3b CKD ([facility]/HCC) Primary hypertension Stage 3b chronic kidney disease ([facility]/HCC) 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 Co de Phone Number [facility] [address] [place] [phone] * (ABNORMAL) C-reactive Protein (06/08/2024 9:25 AM EST) C Reactive Protein 1.04(H) < or = 0.50 mg/dL [facility] Blood Venous blood specimen / Unknown 06/08/2024 9:25 AM EST 06/08/2024 9:25 AM EST Rosalind Cardoso [employer] LAB BLOOD ORDERABLES Final Res ult Performing Organization Address City/[facility]/ZIP Co de Phone Number [facility] [address] [place] [phone] * (ABNORMAL) Sed Rate by Modified Westergren (06/08/2024 9:25 AM EST) Erythrocyte Sedimentation Rate 54(H) 0 - 20 MM/HR [facility] Comment:Patients with polycy themia and many hemoglobin abnormalitiesmay have depressed sed rates whereas patients with anemiamay have elevated sed rates. Blood Venous blood specimen / Unknown 06/08/2024 9:25 AM EST 06/08/2024 9:25 AM EST Rosalind Cardoso [employer] LAB BLOOD ORDERABLES Final Res ult Performing Organization Address City/[facility]/ZIP Co de Phone Number [facility] [address] [place] [phone] * Magnesium (06/08/2024 9:25 AM EST) Pathologist [facility] Magnesium 1.9 1.6 - 2.6 mg/dL [facility] Blood Venous blood specimen / Unknown 06/08/2024 9:25 AM EST 06/08/2024 9:25 AM EST Rosalind Cardoso [facility] LAB BLOOD ORDERABLES Final Res ult Performing Organization Address City/[facility]/ZIP Co de Phone Number [facility] [address] [place] [phone] documented in this encounter Visit Diagnoses [...] documented as of this encounter Care Teams Carriage Operator Relationship Specialty Start Date End Date Rosalind Cardoso FNP [address] [place] [phone] PCP - General Family Medicine 04/28/21 documented as of this encounter
[2024-11-28 21:13] LABS: TS Negative Control Passed; TS Panel A 0; TS Panel B 0; TS Positive Control Passed; TSpotTB Negative (Negative)
== END 2024-11-26 11:11 | disposition home or self-care (01) ==
LOC: HO.HHCL 11:10
PROVIDERS: Visit Provider Internal Medicine
DX: E11.65 Type 2 diabetes mellitus with hyperglycemia (principal); Z79.01 Long term (current) use of anticoagulants
CPT/HCPCS: 36415; 80053; 83735; 85025; 85610; 85652; 86140; 86481

== ENCOUNTER 2024-12-18 09:54 | Outpatient (REF) | payer OTHER, SELFPAY ==
[2024-12-18 10:18] LABS: MANUAL DIFF FLAG NO
--- OUTSIDE RECORDS SUMMARY | 2024-12-18 10:37 | XMS_ITS | Patient Health Record ---
Author Organization [facility] Address [address] [facility] [place] [address] Care Team Providers Care Carding Utility Tender Name Role Phone Lesvia Sosa Unavailable [phone] Reason For Referral No Information Medications Medication [...] Oral for 90 Active [employer] Short Pen [place] 31G X 8 MM USE ONCE DAILY [...] Problem Status W/U Status Risk Notes Problem 218069726 Charcot's joint, left ankle and foot (M14.672) Active confirmed Problem 628508239 Hammer toe of ri ght foot (M20.41) Active confirmed Problem 534771247 Hammer toe of le ft foot (M20.42) Active confirmed Problem 077278752 Neuropathy (G62.9) Active confirmed Problem 98762717 Type 2 diabetes mellitus with polyneuropathy (E11.42) Active confirmed Plan Of Treatment Pending Test Test Name Order Date X ray : Foot, left 3V 11/28/2021 X ray : Foot, right 3V 11/28/2021 Insurance Providers Payer Name Payer Address Payer Phone Subscriber Number Group Number Insured Name Patient Relationship to Insured Coverage Start Date Coverage End Date 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
[2024-12-18 10:40] LABS: Basophils Absolute Auto 0.1 X10*3/uL (0.0-0.2); Basophils Percent Auto 0.8 % (0-2); Eosinophils Absolute Auto 0.3 X10*3/uL (0.0-0.4); Eosinophils Percent Auto 3.4 % (0-4); Hematocrit 31.4 % (37.0-47.0); Hemoglobin 9.3 g/dl (12.0-16.0); Imm Gran Abs Auto 0.09 X10*3/uL (0.00-0.03); Lymphocytes Absolute Auto 2.3 X10*3/uL (1.2-4.9); Lymphocytes Percent Auto 25.7 % (20-40); Mean Corpuscular HGB Conc 29.6 g/dl (31.0-35.0); Mean Corpuscular Hemoglobin 19.4 pg (27.0-33.0); Mean Corpuscular Volume 65.4 fL (80.0-98.0); Mean Platelet Volume 11.6 fL (9.4-12.3); Monocytes Absolute Auto 0.6 X10*3/uL (0.1-1.2); Monocytes Percent Auto 6.7 % (2-11); Neutrophils Absolute Auto 5.6 x10*3/uL (2.0-8.3); Neutrophils Percent Auto 62.4 % (45-73); Platelet Count 398 X10*3/uL (160-400); Red Cell Distribution Width 18.8 % (11.0-16.0)
[2024-12-18 10:51] LABS: Prothrombin Time 11.8 SEC (10.9-12.4)
[2024-12-18 11:14] LABS: Alanine Aminotransferase 22 U/L (0-31); Albumin Level 3.6 g/dL (3.5-5.0); Alkaline Phosphatase 122 U/L (39-117); Anion Gap 12 (12-20); Aspartate Amino Transferase 32 U/L (5-31); Bilirubin Total 0.4 mg/dL (0.0-1.0); Blood Urea Nitrogen 53 mg/dL (9-16); C Reactive Protein 0.65 mg/dL (< or = 0.50); Calcium 9.1 mg/dL (8.4-10.2); Carbon Dioxide 27 mmol/L (22-29); Chloride 101 mmol/L (96-108); Estimated Glomerular Filt Rate 22; Glucose Random 143 mg/dL (60-115); Magnesium 1.9 mg/dL (1.6-2.6); Potassium 3.9 mmol/L (3.3-5.1); Sodium 136 mmol/L (135-145); Total Protein 6.7 g/dL (6.5-8.0)
[2024-12-18 11:30] LABS: Erythrocyte Sedimentation Rate 25 MM/HR (0-20)
== END 2024-12-18 09:55 | disposition home or self-care (01) ==
LOC: HO.LAB 09:54
PROVIDERS: Absent Provider Internal Medicine Medical Oncology; PCP Registered Nurse; Referring Provider Nurse Practitioner Family; Visit Provider Registered Nurse
DX: I13.0 Hypertensive heart and chronic kidney disease with heart failure and stage 1 through stage 4 chronic kidney disease, or unspecified chronic kidney disease (principal); E11.22 Type 2 diabetes mellitus with diabetic chronic kidney disease; N18.32 Chronic kidney disease, stage 3b; I50.9 Heart failure, unspecified; D64.9 Anemia, unspecified; Z89.512 Acquired absence of left leg below knee; Z79.4 Long term (current) use of insulin
CPT/HCPCS: 36415; 80053; 83735; 85025; 85610; 85652; 86140

== ENCOUNTER 2024-12-18 11:00 | Outpatient (RCR) | payer OTHER, SELFPAY | END 2025-06-23 08:40 | disposition home or self-care (01) | LOC: HO.PT 11:00 | PROVIDERS: PCP Registered Nurse; Visit Provider Internal Medicine | DX: Z89.512 Acquired absence of left leg below knee (principal); Z97.14 Presence of artificial left leg (complete) (partial) | CPT/HCPCS: 97163 ==

== ENCOUNTER 2024-12-21 14:05 | Outpatient (REF) | payer OTHER, SELFPAY ==
--- OUTSIDE RECORDS SUMMARY | 2024-12-21 15:48 | XMS_ITS | Encounter Summary ---
Author Organization [employer] Address [address] [place] [address] 7 [place] [address] Care Team Providers Care Medical Record Consultant Name Role Phone Rosalind Cardoso Primary Care Provider [phone] Encounter Details Date Type Department Care Team ([facility] st Contact Info) Description 06/19/2024 Orders Only [facility] CHC MED & PEDS [address] [place], [place] [phone] Rosalind Cardoso FNP [address] [place] [address] Type 2 diabetes mellitus with stage 3 [...] Prothrombin Time 11.3 10.9 - 12.4 SEC [facility] INTERNATIONAL NORM RATIO 1.0 0.9 - 1.1 [facility] Comment:INTERNATIONAL NORMAL IZED RATIO [...] AM EST 06/23/2024 10:31 AM EST Rosalind Write.[employer] [facility] LAB BLOOD ORDERABLES Final Res ult Performing Organization Address [facility] Co de Phone Number [facility] [address] [place] [phone] * (ABNORMAL) Sed Rate by Modified Westergren (06/23/2024 10:31 AM EST) Pathologist [facility] Erythrocyte Sedimentation Rate 38(H) 0 - 20 MM/HR [facility] Comment:Patients with polycy themia and many hemoglobin abnormalitiesmay have depressed sed rates whereas patients with anemiamay have elevated sed rates. Blood Venous blood specimen / Unknown 06/23/2024 10:31 AM EST 06/23/2024 10:31 AM EST [facility]alind [facility] BLOOD ORDERABLES Final Res ult Performing Organization Address [facility] Co de Phone Number [facility] [address] [place] [phone] * (ABNORMAL) Comprehensive Metabolic Panel (06/23/2024 10:31 AM EST) Pathologist [facility] Sodium 134(L) 135 - 145 mmol/L [facility] Potassium 4.1 3.3 - 5.1 mmol/L [facility] Chloride 97 96 - 108 mmol/L [facility] Carbon Dioxide 27 22 - 29 mmol/L [facility] Anion Gap 14 12 - 20 [facility] Urea Nitrogen (BUN) 45(H) 9 - 16 mg/dL [facility] Creatinine, Serum 1.91(H) 0.5 - 1.4 mg/dL [facility] Estimated Glomerular Filt Rate 27 [facility] Comment:Chronic Kidney Disea se: Estimated GFR < 60 mL/min/[id number] Kidney Disease: Estimated GFR < 15 mL/min/1.73m2 Glucose 287(H) 60 - 115 mg/dL [facility] Calcium 9.1 8.4 - 10.2 mg/dL [facility] Bilirubin, Total 0.3 0.0 - 1.0 mg/dL [facility] Aspartate Amino Transferase 19 5 - 31 U/L [facility] Alanine Aminotransferase 11 0 - 31 U/L [facility] Total Protein 7.4 6.5 - 8.0 g/dL [facility] Albumin Level 3.6 3.5 - 5.0 g/dL [facility] Alkaline Phosphatase 99 39 - 117 U/L [facility] Blood Venous blood specimen / Unknown 06/23/2024 10:31 AM EST 06/23/2024 10:31 AM EST Rosalind Cardoso INSPECTOR AIDE LAB BLOOD ORDERABLES Final Res ult [facility] [address] [place] [address] [phone] documented in this encounter Visit Diagnoses Diagnosis Type 2 diabetes mellitus with stage 3 chronic kidney disease, with long-term current use of insulin, unspecified whether stage 3a or 3b CKD (CMS/HCC) Primary hypertension Unspecified essential hypertension Stage 3b chronic kidney disease ([facility]/HCC) 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
[2024-12-21 16:12] LABS: MANUAL DIFF FLAG NO
[2024-12-21 16:20] LABS: Basophils Absolute Auto 0.1 X10*3/uL (0.0-0.2); Basophils Percent Auto 0.6 % (0-2); Eosinophils Absolute Auto 0.2 X10*3/uL (0.0-0.4); Eosinophils Percent Auto 2.2 % (0-4); Imm Gran Abs Auto 0.04 X10*3/uL (0.00-0.03); Imm Gran Pct Auto 0.5 % (0.0-0.4); Lymphocytes Absolute Auto 1.9 X10*3/uL (1.2-4.9); Lymphocytes Percent Auto 21.9 % (20-40); Mean Corpuscular Hemoglobin 19.3 pg (27.0-33.0); Mean Corpuscular Volume 66.5 fL (80.0-98.0); Mean Platelet Volume 11.7 fL (9.4-12.3); Monocytes Absolute Auto 0.7 X10*3/uL (0.1-1.2); Monocytes Percent Auto 7.8 % (2-11); NRBC Pct Auto 0.9 /100WBC (0.0-0.2); Neutrophils Absolute Auto 5.7 x10*3/uL (2.0-8.3); Platelet Count 313 X10*3/uL (160-400); Red Blood Count 4.66 X10*6/uL (4.20-5.50); Red Cell Distribution Width 18.9 % (11.0-16.0); White Blood Count 8.5 X10*3/uL (4.8-10.8)
[2024-12-21 16:24] LABS: INTERNATIONAL NORM RATIO 1.1 (0.9-1.1); Prothrombin Time 12.3 SEC (10.9-12.4)
[2024-12-21 17:55] LABS: Alanine Aminotransferase 25 U/L (0-31); Albumin Level 3.4 g/dL (3.5-5.0); Alkaline Phosphatase 119 U/L (39-117); Anion Gap 13 (12-20); Aspartate Amino Transferase 19 U/L (5-31); Bilirubin Total 0.3 mg/dL (0.0-1.0); Blood Urea Nitrogen 37 mg/dL (9-16); C Reactive Protein 1.65 mg/dL (< or = 0.50); Calcium 8.8 mg/dL (8.4-10.2); Carbon Dioxide 26 mmol/L (22-29); Chloride 101 mmol/L (96-108); Estimated Glomerular Filt Rate 34; Glucose Random 450 mg/dL (60-115); Magnesium 1.9 mg/dL (1.6-2.6); Potassium 3.8 mmol/L (3.3-5.1); Sodium 136 mmol/L (135-145); Total Protein 6.4 g/dL (6.5-8.0)
== END 2024-12-21 14:06 | disposition home or self-care (01) ==
LOC: HO.HHCL 14:05
PROVIDERS: Visit Provider Registered Nurse
DX: N18.32 Chronic kidney disease, stage 3b (principal); I10 Essential (primary) hypertension; E11.22 Type 2 diabetes mellitus with diabetic chronic kidney disease; Z79.4 Long term (current) use of insulin; Z89.512 Acquired absence of left leg below knee
CPT/HCPCS: 36415; 80053; 83735; 85025; 85610; 86140

== ENCOUNTER 2024-12-24 09:51 | Outpatient (REF) | payer OTHER, SELFPAY ==
[2024-12-24 10:20] LABS: MANUAL DIFF FLAG NO
[2024-12-24 10:22] LABS: Basophils Absolute Auto 0.1 X10*3/uL (0.0-0.2); Basophils Percent Auto 0.9 % (0-2); Eosinophils Absolute Auto 0.2 X10*3/uL (0.0-0.4); Eosinophils Percent Auto 2.3 % (0-4); Hematocrit 30.9 % (37.0-47.0); Hemoglobin 9.3 g/dl (12.0-16.0); Imm Gran Abs Auto 0.02 X10*3/uL (0.00-0.03); Imm Gran Pct Auto 0.3 % (0.0-0.4); Lymphocytes Absolute Auto 1.6 X10*3/uL (1.2-4.9); Mean Corpuscular HGB Conc 30.1 g/dl (31.0-35.0); Mean Corpuscular Hemoglobin 19.6 pg (27.0-33.0); Mean Corpuscular Volume 65.1 fL (80.0-98.0); Mean Platelet Volume 10.5 fL (9.4-12.3); Monocytes Absolute Auto 0.6 X10*3/uL (0.1-1.2); Monocytes Percent Auto 7.7 % (2-11); NRBC Pct Auto 0.9 /100WBC (0.0-0.2); Neutrophils Absolute Auto 5.2 x10*3/uL (2.0-8.3); Neutrophils Percent Auto 67.8 % (45-73); Platelet Count 364 X10*3/uL (160-400); Red Blood Count 4.75 X10*6/uL (4.20-5.50); White Blood Count 7.7 X10*3/uL (4.8-10.8)
[2024-12-24 10:44] LABS: INTERNATIONAL NORM RATIO 1.1 (0.9-1.1); Prothrombin Time 12.6 SEC (10.9-12.4)
--- OUTSIDE RECORDS SUMMARY | 2024-12-24 10:53 | XMS_ITS | Encounter Summary ---
Author Organization [employer] Address [address] [place] [address] 7 [place] [address] Care Team Providers Care Mortuary Beautician Name Role Phone Rosalind Cardoso Primary Care Provider [phone] Encounter Details Date Type Department Care Team ([facility] st Contact Info) Description 06/19/2024 Orders Only [facility] CHC MED & PEDS [address] [place], [place] [phone] Rosalind Cardoso FNP [address] [place] [address] Type 2 diabetes mellitus with stage 3 [...] Prothrombin Time 11.3 10.9 - 12.4 SEC [facility] INTERNATIONAL NORM RATIO 1.0 0.9 - 1.1 [facility] Comment:INTERNATIONAL NORMAL IZED RATIO (INR) [...] AM EST 06/23/2024 10:31 AM EST Rosalind [facility] BLOOD ORDERABLES Final Res ult Performing Organization Address [facility] Co de Phone Number [facility] [address] [place] [phone] * (ABNORMAL) Sed Rate by Modified Westergren (06/23/2024 10:31 AM EST) Pathologist [facility] Erythrocyte Sedimentation Rate 38(H) 0 - 20 MM/HR [facility] Comment:Patients with polycy themia and many hemoglobin abnormalitiesmay have depressed sed rates whereas patients with anemiamay have elevated sed rates. Blood Venous blood specimen / Unknown 06/23/2024 10:31 AM EST 06/23/2024 10:31 AM EST Rosalind [facility] BLOOD ORDERABLES Final Res ult Performing Organization Address [facility] Co de Phone Number [facility] [address] [place] [phone] * (ABNORMAL) Comprehensive Metabolic Panel (06/23/2024 10:31 AM EST) Pathologist [facility] Sodium 134(L) 135 - 145 mmol/L [facility] Potassium 4.1 3.3 - 5.1 mmol/L [facility] Chloride 97 96 - 108 mmol/L [facility] Carbon Dioxide 27 22 - 29 mmol/L [facility] Anion Gap 14 12 - 20 [facility] Urea Nitrogen (BUN) 45(H) 9 - 16 mg/dL [facility] Creatinine, Serum 1.91(H) 0.5 - 1.4 mg/dL [facility] Estimated Glomerular Filt Rate 27 [facility] Comment:Chronic Kidney Disea se: Estimated GFR < 60 mL/min/[id number] Kidney Disease: Estimated GFR < 15 mL/min/1.73m2 Glucose 287(H) 60 - 115 mg/dL [facility] Calcium 9.1 8.4 - 10.2 mg/dL [facility] Bilirubin, Total 0.3 0.0 - 1.0 mg/dL [facility] Aspartate Amino Transferase 19 5 - 31 U/L [facility] Alanine Aminotransferase 11 0 - 31 U/L [facility] Total Protein 7.4 6.5 - 8.0 g/dL [facility] Albumin Level 3.6 3.5 - 5.0 g/dL [facility] Alkaline Phosphatase 99 39 - 117 U/L [facility] Blood Venous blood specimen / Unknown 06/23/2024 10:31 AM EST 06/23/2024 10:31 AM EST Rosalind Cardoso GEOSPATIAL PROGRAM MANAGEMENT OFFICER LAB BLOOD ORDERABLES Final Res ult [facility] [address] [place] [phone] [phone] documented in this encounter Visit Diagnoses Diagnosis Type 2 diabetes mellitus with stage 3 chronic kidney disease, with long-term current use of insulin, unspecified whether stage 3a or 3b CKD (CMS/HCC) Primary hypertension Unspecified essential hypertension Stage 3b chronic kidney disease ([facility]/HCC) 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
[2024-12-24 11:10] LABS: B Type Natriuretic Peptide 2573 pg/mL (<100)
[2024-12-24 11:32] LABS: Anion Gap 15 (12-20); Blood Urea Nitrogen 36 mg/dL (9-16); C Reactive Protein 1.07 mg/dL (< or = 0.50); Calcium 8.9 mg/dL (8.4-10.2); Carbon Dioxide 25 mmol/L (22-29); Chloride 103 mmol/L (96-108); Estimated Glomerular Filt Rate 28; Glucose Random 283 mg/dL (60-115); Potassium 3.7 mmol/L (3.3-5.1); Sodium 139 mmol/L (135-145)
[2024-12-24 11:55] LABS: Anion Gap 13 (12-20); Blood Urea Nitrogen 35 mg/dL (9-16); Carbon Dioxide 26 mmol/L (22-29); Chloride 103 mmol/L (96-108); Estimated Glomerular Filt Rate 28; Glucose Random 285 mg/dL (60-115); Potassium 3.7 mmol/L (3.3-5.1); Sodium 138 mmol/L (135-145)
== END 2024-12-24 09:52 | disposition home or self-care (01) ==
LOC: HO.LAB 09:51
PROVIDERS: Absent Provider Nurse Practitioner Family; PCP Registered Nurse; Referring Provider Internal Medicine Medical Oncology; Visit Provider Registered Nurse
DX: I50.9 Heart failure, unspecified (principal); R60.9 Edema, unspecified; D63.1 Anemia in chronic kidney disease; I12.9 Hypertensive chronic kidney disease with stage 1 through stage 4 chronic kidney disease, or unspecified chronic kidney disease; E11.22 Type 2 diabetes mellitus with diabetic chronic kidney disease; N18.30 Chronic kidney disease, stage 3 unspecified; N18.32 Chronic kidney disease, stage 3b; Z79.4 Long term (current) use of insulin; Z89.512 Acquired absence of left leg below knee
CPT/HCPCS: 36415; 80048; 83880; 85025; 85610; 86140

== ENCOUNTER 2025-01-01 10:18 | Outpatient (REF) | payer OTHER, SELFPAY ==
--- OUTSIDE RECORDS SUMMARY | 2025-01-01 11:02 | XMS_ITS | Encounter Summary ---
Author Organization [employer] Address [address] [place] [address] 7 [place] [address] Care Team Providers Care Senior Education Specialist Name Role Phone Rosalind Cardoso Primary Care Provider [phone] Encounter Details Date Type Department Care Team ([facility] st Contact Info) Description 06/19/2024 Orders Only [facility] CHC MED & PEDS [address] [place], [place] [phone] Rosalind Cardoso FNP [address] [place] [address] Type 2 diabetes mellitus with stage 3 [...] Prothrombin Time 11.3 10.9 - 12.4 SEC [facility] [...] AM EST 06/23/2024 10:31 AM EST Rosalind [employer] [facility] LAB BLOOD ORDERABLES Final Res ult Performing Organization Address [facility] Co de Phone Number [facility] [address] [place] [phone] * (ABNORMAL) Sed Rate by Modified Westergren (06/23/2024 10:31 AM EST) Pathologist [facility] Erythrocyte Sedimentation Rate 38(H) 0 - 20 MM/HR [facility] Comment:Patients with polycy themia and many hemoglobin abnormalitiesmay have depressed sed rates whereas patients with anemiamay have elevated sed rates. Blood Venous blood specimen / Unknown 06/23/2024 10:31 AM EST 06/23/2024 10:31 AM EST [facility]LOOD ORDERABLES Final Res ult Performing Organization Address [facility] Co de Phone Number [facility] [address] [place] [phone] * (ABNORMAL) Comprehensive Metabolic Panel (06/23/2024 10:31 AM EST) Pathologist [facility] Sodium 134(L) 135 - 145 mmol/L [facility] Potassium 4.1 3.3 - 5.1 mmol/L [facility] Chloride 97 96 - 108 mmol/L [facility] Carbon Dioxide 27 22 - 29 mmol/L [facility] Anion Gap 14 12 - 20 [facility] Urea Nitrogen (BUN) 45(H) 9 - 16 mg/dL [facility] Creatinine, Serum 1.91(H) 0.5 - 1.4 mg/dL [facility] Estimated Glomerular Filt Rate 27 [facility] Comment:Chronic Kidney Disea se: Estimated GFR < 60 mL/min/1.29r1Bgzhax Kidney Disease: Estimated GFR < 15 mL/min/1.73m2 Glucose 287(H) 60 - 115 mg/dL [facility] Calcium 9.1 8.4 - 10.2 mg/dL [facility] Bilirubin, Total 0.3 0.0 - 1.0 mg/dL [facility] Aspartate Amino Transferase 19 5 - 31 U/L [facility] Alanine Aminotransferase 11 0 - 31 U/L [facility] Total Protein 7.4 6.5 - 8.0 g/dL [facility] Albumin Level 3.6 3.5 - 5.0 g/dL [facility] Alkaline Phosphatase 99 39 - 117 U/L [facility] Blood Venous blood specimen / Unknown 06/23/2024 10:31 AM EST 06/23/2024 10:31 AM EST Rosalind Cardoso NUCLEAR PHYSICIST LAB BLOOD ORDERABLES Final Res ult 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
[2025-01-01 11:10] LABS: Basophils Percent Auto 0.4 % (0-2); Eosinophils Absolute Auto 0.3 X10*3/uL (0.0-0.4); Eosinophils Percent Auto 3.6 % (0-4); Hematocrit 33.7 % (37.0-47.0); Hemoglobin 10.1 g/dl (12.0-16.0); Imm Gran Abs Auto 0.03 X10*3/uL (0.00-0.03); Imm Gran Pct Auto 0.4 % (0.0-0.4); Lymphocytes Absolute Auto 1.9 X10*3/uL (1.2-4.9); Lymphocytes Percent Auto 23.9 % (20-40); MANUAL DIFF FLAG SCAN; Mean Corpuscular Hemoglobin 18.9 pg (27.0-33.0); Monocytes Absolute Auto 0.5 X10*3/uL (0.1-1.2); Monocytes Percent Auto 6.6 % (2-11); Neutrophils Percent Auto 65.1 % (45-73); Platelet Count 348 X10*3/uL (160-400); Red Blood Count 5.34 X10*6/uL (4.20-5.50); Red Cell Distribution Width 18.7 % (11.0-16.0); SCAN SMEAR FLAG 1; White Blood Count 7.7 X10*3/uL (4.8-10.8)
[2025-01-01 11:11] LABS: Mean Corpuscular Volume 63.1 fL (80.0-98.0)
[2025-01-01 11:35] LABS: SLIDE REVIEW VERIFIED
== END 2025-01-01 10:19 | disposition home or self-care (01) ==
LOC: HO.LAB 10:18
PROVIDERS: PCP Registered Nurse; Visit Provider Internal Medicine Medical Oncology
DX: D64.9 Anemia, unspecified (principal)
CPT/HCPCS: 36415; 85025

== ENCOUNTER 2025-01-20 12:16 | Outpatient (REF) | payer OTHER, SELFPAY ==
--- OUTSIDE RECORDS SUMMARY | 2025-01-20 13:19 | XMS_ITS | Clinical Summary ---
Author Organization [address] [place] [address] Address [address] [place] [address] Phone Care Team Providers Care Society Reporter Name Role Phone Physician, Pcp Unknown Primary [...] Diagnosed Date DM2 (diabetes mellitus, type 2) ([facility] V24, [facility] V28) 10/22/2022 Hx of BKA, left ([facility]24, [facility] V28) 10/22 Hyperlipidemia 10/22/2022 Hypertension 10/22/2022 PAD (peripheral artery disease) ([facility] V24) Vitamin D deficiency 10/22/2022 Encounters Date Type Department Care Team Description 01/19/2025 10:45 AM EDT Office Visit Orthopedic Surgery [facility] [address] [place] [address] [address] [place] [phone] Raheel Quijano DPM Dermatophytosis of nail (Primary Dx); Type II diabetes mellitus with peripheral circulatory disorder ([facility] V24, [facility] V28); Diabetic mononeuropathy simplex ([facility]24, [facility] V28); Fissure in skin of right foot 01/06/2025 1:00 PM EDT Office Visit Vascular Surgery [facility] 300 [facility] [address] [place] [phone] Oralia Borden MD PAD (peripheral artery disease) ([facility] V24) (Primary Dx); Hx of BKA, left ([facility] V24, [facility] V28) 10/27/2024 12:00 PM EDT Ancillary Procedure [facility] 101 300 [facility] 101 [place] [phone] PAD (peripheral artery disease) ([facility] V24) from Last 3 Months Surgical History Surgery Date Site/Laterality Comments OTHER SURGICAL HISTORY 09/01/2022 Left PROCEDURE: [place] AMPUTATION LEG THROUGH TIBIA&FIBULA Social History Tobacco [...] Sign Reading Time Taken Comments Blood Pressure 126/70 01/06/2025 1:00 PM EDT Pulse 72 01/06/2025 1:00 PM EDT Temperature - - Respiratory Rate 16 01/06/2025 1:00 PM EDT Oxygen Saturation - - Inhaled Oxygen Concentration - - Weight 98.9 kg (218 lb) 08/10/2024 2:35 PM EST Height 152.4 cm (5') 01/06/2025 1:00 PM EDT Body Mass Index 42.58 08/10/2024 2:35 PM EST Plan of Treatment Upcoming Encounters Date Type Department Care Team (Late st Contact Info) Description 04/21/2025 2:00 PM EDT Office Visit Orthopedic Surgery - [place] 250 [address] [facility] 250 [place] [phone] Raheel Quijano, DPM [address] [address] 01/12/2026 1:00 PM EDT Office Visit Vascular Surgery - [place] 300 [facility] 210 [place] [phone] Oralia Borden MD 300 [facility] 210 [place] [address] Health Maintenance Due Date Last Done Comments Breast Cancer Screening 1965 Diabetes: Annual Foot Exam 1973 Diabetes: Annual Retina Eye Exam 1973 DTaP,Tdap,and Td Vaccines (1 - Tdap) 1982 Pneumococcal Vaccine: 50+ Years (1 of 2 - PCV) 1982 Cervical [...] Vaccine ( season) 2024 Influenza Vaccine (#1) 2025 Diabetes: Blood Sugar Control Test (HGBA1C) 05/29/2025 11/26/2024, 08/03/2024 Depression Screening 08/03/2025 08/03/2024 Diabetes: Annual GFR (Glomerular Filtration Rate) 12/24/2025 12/24/2024, 12/21/2024, 12/18/2024, Additional history exists Hypertension/CHF/CAD Annual BMP Blood Test 12/24/2025 12/24/2024, 12/21/2024, 12/18/2024, Additional history exists Cholesterol Screening (Lipid Panel) [...] 1:17 PM EDT PAD (peripheral artery disease) ([facility] V24) from Last 3 Months Results * Vascular US duplex lower extremity arteries bilateral with MANUEL (10/27/2024 1:17 PM EDT) Left TRIP MOTOR OPERATOR prox sys PSV 104 cm/s CV VAS [...] PSV 93 cm/s CV VAS LAB Right TRIP MOTOR OPERATOR prox sys PSV 122 cm/s CV VAS [...] proximal SFA has 50 to 99% stenosis. The flow distally is blunted and has monomorphic appearance. SFA arterial wall is significantly calcified. Two-vessel runoff in the right calf. The right peroneal artery has no flow. Right ankle pressure and ankle-brachial index are mildly reduced with right MANUEL 0.8. Suspect right MANUEL over estimated due to arterial calcification. Left Status post left BKA. Left SFA severe stenosis with very diminished flow in the proximal and mid segment. Left mid SFA has 50 to 99% stenosis. [...] flow. The popliteal artery has monophasic flow. Garbage Truck Dispatcher Details A edmonds scale, color and doppler analysis ultrasound was performed. During the study longitudinal views were obtained. Pulsed wave doppler was performed. Nu ENCISO CV VASCULAR PROCEDURES Final Result from Last 3 Months Insurance [facility] MEDICARE Member Subscriber Plan / Payer (Ef fective 2016-Present) Name:MITRA PARISH Relation to Subscriber:Self Name:Mitra Parish Payer ID:[id number] Group ID:[id number] Type:Not on file Address: [address] [place] [phone] Advance Directives Documents on File Type Date Recorded Patient Remote Advisor Expl anation Health Care Decision (hx) 09/04/2022 AD REINOSO DIRECTIVE Health Care Decision (hx) 09/04/2022 AD REINOSO DIRECTIVE Care Teams Society Reporter Relationship Specialty Start Date End Date Physician, Pcp Unknown PCP - General 07/27/24
--- OUTSIDE RECORDS SUMMARY | 2025-01-20 13:19 | XMS_ITS | Encounter Summary ---
Author Organization [employer] Address [address] [place] [address] 7 [place] [address] Care Team Providers Care Computer Hardware Designer Name Role Phone Rosalind Cardoso Primary Care Provider [phone] Barron Wetzel MD Unavailable [phone] Madeline Yo Unavailable Encounter Details Date Type Department Care Team (Late st Contact Info) Description 06/19/2024 Orders Only [facility] CHC MED & PEDS [address] [place], [place] [phone] Rosalind Cardoso FNP [address] [place], [place] [phone] Type 2 diabetes mellitus with stage 3 [...] Care Team (Late st Contact Info) Description 01/22/2025 1:00 PM EDT Telemedicine [facility] & PEDS [address] [place] [address] Amira Ayoub, PharmD [address] [place] [address] documented as of this encounter Procedures Procedure [...] unspecified whether stage 3a or 3b CKD ([facility]/HCC) Primary hypertension Stage 3b chronic kidney disease ([facility]/HCC) 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 ([facility]) documented in this encounter Results * Prothrombin Time-INR (06/23/2024 10:31 AM EST) Prothrombin Time 11.3 10.9 - 12.4 SEC [facility] INTERNATIONAL NORM RATIO 1.0 0.9 - 1.1 [facility] Comment:INTERNATIONAL NORMAL IZED RATIO (INR) [...] 06/23/2024 10:31 AM EST us Rosalind Cardoso [facility] BLOOD ORDERABLES Final Res ult [facility] [address] [place] [phone] * (ABNORMAL) Sed Rate by Modified Westergren (06/23/2024 10:31 AM EST) Erythrocyte Sedimentation Rate 38(H) 0 - 20 MM/HR [facility] Comment:Patients with polycy themia and many hemoglobin abnormalitiesmay have depressed sed rates whereas patients with anemiamay have elevated sed rates. Blood Venous blood specimen / Unknown 06/23/2024 10:31 AM EST 06/23/2024 10:31 AM EST us Rosalind Cardoso MANAGER CREATIVE SERVICES LAB BLOOD ORDERABLES Final Res ult Performing Organization Address City/[facility]/ZIP Co de Phone Number [facility] [address] [place] [phone] * (ABNORMAL) Comprehensive Metabolic Panel (06/23/2024 10:31 AM EST) Sodium 134(L) 135 - 145 mmol/L [facility] Potassium 4.1 3.3 - 5.1 mmol/L [facility] Chloride 97 96 - 108 mmol/L [facility] Carbon Dioxide 27 22 - 29 mmol/L [facility] Anion Gap 14 12 - 20 [facility] Urea Nitrogen (BUN) 45(H) 9 - 16 mg/dL [facility] Creatinine, Serum 1.91(H) 0.5 - 1.4 mg/dL [facility] Estimated Glomerular Filt Rate 27 [facility] Comment:Chronic Kidney Disea se: Estimated GFR < 60 mL/min/1.99r7Uzkcvn Kidney Disease: Estimated GFR < 15 mL/min/1.73m2 Glucose 287(H) 60 - 115 mg/dL [facility] Calcium 9.1 8.4 - 10.2 mg/dL [facility] Bilirubin, Total 0.3 0.0 - 1.0 mg/dL [facility] Aspartate Amino Transferase 19 5 - 31 U/L [facility] Alanine Aminotransferase 11 0 - 31 U/L [facility] Total Protein 7.4 6.5 - 8.0 g/dL [facility] Albumin Level 3.6 3.5 - 5.0 g/dL [facility] Alkaline Phosphatase 99 39 - 117 U/L [facility] Blood Venous blood specimen / Unknown 06/23/2024 10:31 AM EST 06/23/2024 10:31 AM EST us Rosalind Cardoso MANAGER CREATIVE SERVICES LAB BLOOD ORDERABLES Final Res ult [facility] [address] [place] [phone] documented in this encounter Visit Diagnoses Diagnosis Type 2 diabetes mellitus with stage 3 chronic kidney disease, with long-term current use of insulin, unspecified whether stage 3a or 3b CKD ([facility]/HCC) Primary hypertension Unspecified essential hypertension Stage 3b chronic kidney disease ([facility]/HCC) 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 ([facility]/HCC) documented in this encounter Additional Health Concerns Assessment Noted Time PHQ-9 Depression Total Score: 0 12/26/19 23 1:09 PM EDT documented as of this encounter Care Teams Computer Hardware Designer Relationship Specialty Start Date End Date Rosalind Cardoso FNP [address] [place] [address] PCP - General Family Medicine 04/28/21 Barron Wetzel MD 100 [facility] 200 [place] [phone] Nephrology 01/15/25 Madeline Yo [address] [place] [address] Drive 3rd [place] [address] Cardiology 01/15/25 [employer] 01/05/25 documented as of this encounter
--- OUTSIDE RECORDS SUMMARY | 2025-01-20 13:19 | XMS_ITS | Patient Health Record ---
Demographics Address [address] [place] [address] Email Address Preferred Language en Marital Status Unknown Alevism Affiliation Unknown Race White Ethnic Group Not or Lati no Author Organization [facility] Address [address] [place] [address] Support Name Relationship Address Phone Yessenia Parish Emergency Contact [address] [place] [address] TAODONNA Guarantor Unknown [phone] Care Team Providers Care Fiberglass Boat Parts Finisher Name Role Phone Arianna Whitmore Primary Care Provider Nate Florez [phone] Reason For Referral No Information Medications Medication SIG (Take, Route, Frequency, Duration) Notes Start Date End Date Status Dicyclomine HCl 10 MG 1-2 capsules Orall y Four times a day prn abdominal cramps/bloating/cramps/di arrhea for 30 day(s) 03/27/2016 Active Lisinopril-hydroCHLOROthiaz marsha 20-25 MG 1 tablet Orally Once a day Active metFORMIN HCl 1000 MG 1 tablet with meal s Orally Twice a day Active Aspir-81 81 MG 1 tablet Orally Once a day Active Problems Problem Type SNOMED Code ICD Code Onset Dates Problem Status W/U Status Risk Notes Problem 677418416 Encounter for screening for malignant neoplasm of colon (Z12.11) Active confirmed Problem 239038618 Irritable bowel syndrome with diarrhea (K58.0) Active confirmed Problem 404059007 Calculus of gallbladder without cholecystitis without obstruction (K80.20) Active confirmed Problem Screening for malignant neoplasm of rectum (265136314) Encounter for screening for malignant neoplasm of rectum (Z12.12) Active confirmed Problem 178784322 Microcytic anemi a (D50.9) Active confirmed Plan Of Treatment Pending Test Test Name Order Date IRON + IBC (FE) 03/27/2016 FERRITIN 03/27/2016 VITAMIN B12 AND FOLATE 03/27/2016 CBC w DIFF 03/27/2016 CELIAC PANEL #10 03/27/2016 Future Test Test Name Order Date COLONOSCOPY 03/27/2016 Insurance Providers Payer Name Payer Address Payer Phone Subscriber Number Group Number Insured Name Patient Relationship to Insured Coverage Start Date Coverage End Date MEDICARE OF [place] [address] [place] [id number] DONNA PARISH Self - patient is the insured MEDICAID OF [facility] [address] [place] [address] [id number] DONNA PARISH Self - patient is the insured Medical (General) History Medical History History ICD Code NIDDM Hypertension Denies AK,CVA,Lung disease Mild renal insufficiency Urinary incontinence She reports fatty liver--see n in [facility]--no liver biopsy was done--however, she had a normal liver profile in November of 2015, and had a normal liver ultrasound and MRI as well IBS--seen by GI MD in [facility] Gallstones Microcytic anemia Surgical History Surgery Date(Month/Year) Exploratory laparotomy 1988 D&C 1997
--- OUTSIDE RECORDS SUMMARY | 2025-01-20 13:19 | XMS_ITS | Clinical Summary ---
Author Organization [facility] Address [address] [facility] [address] [place] [address] Phone Care Team Providers Care Sanitizer Name Role Phone Rosalind Cardoso TAMY Primary Care Provider [phone] Allergies No known active allergies Medications aspirin (ST YIN) 81 MG EC tablet Take 1 tablet by mouth 1 (one) time each day Active atorvastatin (LIPITOR) 40 MG tablet Take 40 mg by mouth 1 (one) time each day 2 Active cholecalciferol (VITAMIN D-3) 25 MCG (1000 UT) tablet Take 1,000 Units by mouth 1 (one) time each day 2 Active ezetimibe (ZETIA) 10 MG tablet Take 10 mg by mouth 1 (one) time each day 1 Active Lantus SoloStar 100 UNIT/ML injection every night 2 Active pioglitazone (ACTOS) 15 MG tablet Take 15 mg by mouth 1 (one) time each day 1 Active isosorbide dinitrate (ISORDIL) 10 MG tablet [...] mouth 1 (one) time each day Active metFORMIN (GLUCOPHAGE) 1000 MG tablet Take 1,000 mg by mouth every morning and evening 1 12/24/19 25 Discontinu ed(Alterna te therapy) Active Problems Problem Noted Date Diagnosed Date Stage 3b chronic kidney disease 12/23/2024 Renal osteodystrophy 12/23/2024 Fibromyalgia 05/14/2023 07/04/2023 Overview (07/04/2023): Last Assessment & Plan: ENT appt scheduled 05/15/23 ED/urgent care precautions reviewed Chronic kidney disease, stage 2 (mild) 3 Proteinuria 12/19/2022 Vitamin D deficiency 10/22/2022 07/04/2023 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 Borden 09/01/22 at [facility] -Indication: gangrene and ulcers of the [...] & Plan: -Optometry: [facility] November 2021 -Dental: [facility] dental clinic -Pap: reports last 2019 and believes results were normal, referred to UroGYN -Colorectal CA screening: iFOBT neg 12/18/21, due December 2022 -Mammogram: BIRADS 3 on 01/16/22, due Jul 2022 -Outstanding vaccines: influenza, Tdap, Shingrix, PCV20, COVID CCA Allergist Osi: plan to schedule follow up appts the following specialists: [facility] Nephrology [facility] UroGYN Generalized abdominal pain 06/20/2022 Overview [...] Blood urea outside reference range 08/14/2021 10/02/2021 Encounters Date Type Department Care Team Description 12/23/2024 4:00 PM EDT Office Visit [facility] [address] [phone] Barron Wetzel MD Stage 3b chronic kidney disease (HCC) (Primary Dx); Type 2 diabetes mellitus with diabetic chronic kidney disease (HCC); Renal osteodystrophy from Last 3 Months Family History Medical History Relation Comments Diabetes [...] Sign Reading Time Taken Comments Blood Pressure 110/72 12/23/2024 3:25 PM EDT Pulse 81 11/12/2023 1:24 PM EDT Temperature - - Respiratory Rate - - Oxygen Saturation 94% 12/19/2022 1:22 PM EDT Inhaled Oxygen Concentration - - Weight 103 kg (228 lb) 12/23/2024 3:25 PM EDT Height 152.4 cm (5') 12/19/2022 1:22 PM EDT Body Mass Index 44.53 12/19/2022 1:22 PM EDT Plan of Treatment Upcoming Encounters Date Type Department Care Team (Late st Contact Info) Description 04/05/2025 2:30 PM EDT [facility] Visit [facility] [address] [place] [address] Barron Wetzel MD [address] [phone] Health Maintenance Due Date Last Done Comments Breast Cancer Screening 1965 Pneumococcal Vaccine: 50+ Years (1 of 2 - PCV) 1982 Colorectal Cancer Screening: Annual FOBT 2012 Colorectal Cancer Screening: Colonoscopy 2012 Colorectal Cancer Screening: Sigmoidoscopy 2012 Diabetes: Ophthalmology Exam 08/08/2020 Diabetes: Pedal Pulse Checked 08/08/2020 Diabetes: Sensory Foot Exam 08/08/2020 Diabetes: Visual Foot Exam 08/08/2020 Diabetes: Hemoglobin A1C 02/26/2025 025, 10/02/2023, 04/12/2023, Additional history exists Influenza Vaccine (#1) 2025 Hepatitis B Vaccine Aged Out No longe r eligible based on patient's age to complete this topic Insurance MCR ([id number]) MCR ([id number]) Care Teams Sanitizer Relationship Specialty Start Date End Date Rosalind Cardoso FNP [address] [place] [phone] PCP - General 11/12/23
--- OUTSIDE RECORDS SUMMARY | 2025-01-20 13:20 | XMS_ITS | Data Portability ---
Author Organization [facility], [facility] Address [address] [place] [phone] Care Team Providers Care Game Author Name Role Phone [facility] Referring Provider [phone] [facility] Referring Provider Assessment Encounter Date Assessment Date Assessment LastModified by Organization Details LastModified Time 07/24/2023 07/24/2023 I provided real -time medical direction via phone for this encounter, and was available for additional phone based assistance as needed. I have reviewed and agree with the Assessment and Plan as documented by the Oil And Gas Exploration Technician. Patient given the opportunity to ask questions. [...] hemoglobin + hematocrit, blood 2023 024 [facility], [address] [place] [address], [phone] 09:28:43 Referral None recorded. Procedures None recorded. [...] APPLY TOPICALLY TO AFFECTED AREA(S) DIRECTED BY [facility] active [...] Available Not Available No t Available FreeStyle [place] Lite kit USE TO TEST BLOOD SUGAR [...] Respiratory rate Body temperature Heart rate Systolic And Diastolic Provider Name and Address Organization Details Last Updated DateTime 4 98 % 98 % 16 /min 98.5 [degF] 86 /min 166/84 mm[Hg] Not Available [employer] production 4 12:58:02 Date Recorded Body temperature Oxygen saturation Oxygen saturation in Arterial blood by Pulse oximetry Heart rate Respiratory rate Systolic And Diastolic Provider Name and Address Organization Details Last Updated DateTime 2 98.2 [degF] 100 % 100 % 108 /min 16 /min 132/81 mm[Hg] Not Available [employer] - production 2 16:51:45 Social History None [...] 4923 Anish Rocha MD Main - instED [address] [place] [phone] 05/04/2022 16:51:33 05/08/2022 15:59:32 Chest pain 36271162 R07.9 Chronic. Symptoms for months. EKG with no ST-T wave changes. Advised to f/u with primary care team for abdominal US/ECHO and possible CT chest given chronicity of symtpoms [id number] Anny Whalen MD Main - [facility] [address] [place] [phone] 07/24/2023 12:57:53 07/25/2023 09:42:01 Anemia 278130414 D64.9 Health Concerns Section Related Observation LastModified by Organization Detai ls LastModified Time None Recorded Concern Status LastModified by Organization Details LastModified Time None Recorded Advance Directives Directive None Recorded Payers Insurance Date Sequence Insurance Name Policy Number Policy Penn Covered Member ID Penn Member ID Guarantor Name 07/24/2023 1 [facility] - DOS PRIOR TO 2022 - DUAL ELIGIBLE (MEDICARE REPLACEMENT/ADV ANTAGE - HMO) Mitra Parish [id number] Mitra Parish 09/01/2023 1 [facility] [employer] - DOS ON OR AFTER 2022 - DUAL ELIGIBLE - SHELTER OPTIONS AND ONE CARE (MEDICARE REPLACEMENT/ADV ANTAGE - HMO) Mitra Марина [id number] Mitra Hanks Марина Notes Date Note Type Note Provider Name [...] .................. .................. .................. .................. .................. .................. ............... Oil And Gas Exploration Technician Note: Patient chief complaint of epigastric pain. Patient states ongoing pain for one month following angiogram. Patient states the pain begins at her ribs, goes through her lungs, and into her breasts. patient vitals WNL, 108 HR noted. 12 lead EKG performed, showing 108 HR and occasional PVC. [facility] contacted. Patient instructed to follow up with PCP for sonography. Education given, red flags discussed. .................. .................. .................. .................. .................. .................. .................. ............... Disposition: Fulfilled Anish Rocha MD [address] [place] [address],[address] [facility], [place], [phone], [employer] 05/05/2022 13:11:58 07/24/2023 text/html HPI: Patient with history of CKD stage 3b , microcytic anemia. follows with Dr. Mattson not seen in > 2 months for procrit injections. Last H&H in chart 06/10/23 Hgb 9.9 HCT 33.6. Patient is an amputee unable to get out to appt. Has pending SQL DEVELOPER DBA but not in place at this time. [...] .................. .................. .................. .................. .................. .................. ............... Oil And Gas Exploration Technician Note From Maximus Neal: Dispatched to the [...] tender/distended, pupils PERRL. Blood draw from [facility] with 23g butterfly. BMP. HCT 33, Hb 11.2. [facility] consulted. Pt advised of results. Red flags discussed. ALL times are approx. .................. .................. .................. .................. .................. .................. .................. ............... Disposition: Fulfilled Anny Whalen MD [address] [place] [address],[facility] [facility], [place], [phone], [employer] 07/24/2023 12:59:58 OBGyn Episode No OBEpisode recorded.
--- OUTSIDE RECORDS SUMMARY | 2025-01-20 13:20 | XMS_ITS | Patient Health Record ---
Author Organization [facility] Address [address] [facility] [place] [address] Care Team Providers Care Mushroom Press Operator Name Role Phone Lesvia Sosa Unavailable [phone] Reason For Referral No Information Medications Medication SIG (Take, Route, Frequency, Duration) Notes Start Date End Date Status Clopidogrel Bisulfate 75 MG Oral; Duration: 90 Active metFORMIN HCl 1000 MG Oral; Duration: 90 Active Aspirin Low Dose 81 MG Oral; Duration: 90 Active Lantus SoloStar 100 UNIT/ML Subcutaneous ; Duration: 36 Active Lidocaine-Prilocaine 2.5-2.5 % External; Duration: 30 Not-Taking Vitamin D3 25 MCG (1000 UT) Oral; Duration: 90 Active Terbinafine HCl 250 MG Oral; Duration: 42 Not-Taking Pioglitazone HCl 15 MG Oral; Duration: 90 Active UltiCare Short Pen [place] 31G X 8 MM USE ONCE DAILY DIRECTED; Duration: 90 Not-Taking Atorvastatin Calcium 40 MG Oral; Duration: 30 Active Ezetimibe 10 MG Oral; Duration: 90 Active Walking Boot/Pneumatic As directed Wear Daily; Duration: Until further notice 11/28/2021 Active Jardiance 25 MG Oral; Duration: 30 Active Invokana 100 MG TAKE 1 TABLET BY MOUTH DAILY BEFORE THE FIRST MEAL OF THE DAY Oral; Duration: 30 Not-Taking Omeprazole 20 MG Oral; Duration: 30 Active Lidocaine 5 % External; Duration: 15 Not-Taking Folic Acid 1 MG Oral; Duration: 90 Active Cyclobenzaprine HCl 10 MG Oral; Duration: 5 Not-Taking Lisinopril-hydroCHLOROthiaz marsha 20-25 MG Oral; Duration: 90 Active TRUEplus Lancets 33G - ; Duration: 34 Not-Taking FreeStyle Lite Test - TEST BLOOD SUGAR THREE TIMES DAILY In Vitro; Duration: 33 Not-Taking Doxycycline Hyclate 100 MG Oral; Duration: 30 Active Alcohol Prep 70 % TEST BLOOD SUGAR THREE TIMES DAILY; Duration: 33 Not-Taking Social History Tobacco Use: Social [...] Problem Status W/U Status Risk Notes Problem Arthropathy associated with a neurological disorder (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) Charcot's joint, left ankle and foot (M14.672) Active confirmed Problem Acquired hammer toe of right foot (4925326334690803 ) Hammer toe of right foot (M20.41) Active confirmed Problem Acquired hammer toe of left foot (5772632833162423 ) Hammer toe of left foot (M20.42) Active confirmed Problem Neuropathy (418227234) Neuropathy (G62.9) Active confirmed Problem Polyneuropathy due to type 2 diabetes mellitus (899077217) Type 2 diabetes mellitus with polyneuropathy (E11.42) Active confirmed Plan Of Treatment Pending Test Test Name Order Date X ray : Foot, left 3V 11/28/2021 X ray : Foot, right 3V 11/28/2021 Insurance Providers Payer Name Payer Address Payer Phone Subscriber Number Group Number Insured Name Patient Relationship to Insured Coverage Start Date Coverage End Date [facility] [employer] Claims [address] [place] [id number] Mitra Parish Self - patient is the insured Medical (General) History Medical History History ICD Code Anemia Arthritis Back,Hip,and Knee pain Cholesterol Cataracts Diabetic Headaches/Migraines Heart disease High blood pressure Kidney disease Neuropathy Psoriasis/eczema Measles Chicken pox Surgical History Surgery Date(Month/Year) Angeogram D+C 1987 Exploratory HIDE DROPPER 1988
== END 2025-01-20 12:17 | disposition home or self-care (01) ==
LOC: HO.LAB 12:16
PROVIDERS: Absent Provider Internal Medicine Medical Oncology; PCP Registered Nurse; Visit Provider Registered Nurse
DX: Z13.89 Encounter for screening for other disorder (principal)

== ENCOUNTER → 2025-01-26 14:42 | Outpatient (REF) | payer OTHER, SELFPAY ==
--- NOTE | 2025-01-26 14:44 | CA_ITS ---
Transthoracic Echocardiogram Patient (Last, First, Middle): Mitra Parish, Gender: Female Date of : 1965 Age: 59 Procedure Date: 01/26/2025 Procedure Type: Transthoracic Echocardiogram Location: OP Height: 152.4 cm Weight: 90.72 kg BSA: 1.87 m2 Heart Rate: 75 bpm BP: 138 / 78 mmHg Explosives Truck Driver: SB/RC Referring MD: Ronny Roberson NP Symptoms: I50.9 - Heart failure, unspecified Study Quality: Adequate ECG Rhythm: Sinus Conclusions: - The left ventricular systolic function is severely decreased. The calculated ejection fraction is 25% by biplane method. - The basal inferior, mid inferior, mid inferoseptal, and mid inferolateral segments are akinetic. - Moderate pulmonary hypertension is present. - The inferior vena cava is mildly dilated and collapses less than 50% with inspiration. - No obvious valvular pathology seen on this study. Findings Left Ventricle Normal left ventricular cavity size. The left ventricular systolic function is severely decreased. The calculated ejection fraction is 25% by biplane method. There is evidence of regional wall motion abnormalities. Evidence suggests grade II (moderate) diastolic dysfunction. Wall Motion Rest Echo Findings The basal inferior, mid inferior, mid inferoseptal, and mid inferolateral segments are akinetic. Right Ventricle Normal right ventricular cavity size. There is moderately decreased right ventricular systolic function. Atria Both atria are normal in size. Aortic Valve There is mild calcification of the aortic valve. There is no aortic valve stenosis. There is no aortic valve regurgitation. Mitral Valve There is mild mitral annular calcification. There is mild mitral valve regurgitation. There is no mitral valve stenosis. Pulmonic Valve The pulmonic valve is likely normal. There is trace pulmonic valve regurgitation. Tricuspid Valve There is mild tricuspid valve regurgitation. Moderate pulmonary hypertension is present. Great Vessels The asc aorta is normal in size. Venous The inferior vena cava is mildly dilated and collapses less than 50% with inspiration. Pericardium/Pleural There is no evidence of pericardial effusion. Prior Study Comparison Changes noted compared to prior study dated: 08/20/2022. Decrease in LVEF; see comment on wall motion. Recommendations, Care & Conclusions No obvious valvular pathology seen on this study. Measurements 2D Linear Measurements IVSd: 1.02 0.6-0.9/0.6-1.0 cm LVIDd: 5.33 3.9-5.3/4.2-5.9 cm LVIDd Index: 2.85 2.4-3.2/2.2-3.1 cm/m2 LVIDs: 4.69 2.0-3.6 cm LVPWd: 0.99 0.7-1.1 cm LA Diam: 4.10 2.7-3.8/3.0-4.0 cm LAIDs Index: 2.19 1.5-2.3 cm/m2 LV Mass: 253.62 67-162/88-224 g LV Mass Index: 135.63 43-95/49-115 g/m2 LVOT Diam: 2.00 3.0+(-)1.3 cm 2D Systolic Function EF 4C: 26.20 >55% EF 2C: 21.20 >55% EF BiP: 25.40 >55% Mitral Valve MV Pk E: 0.81 MV PK A: 0.63 MV Decel Time: 115.00 E/A: 1.30 E'Lateral: 4.50 E'Medial: 2.94 E/E' Med: 27.60 E/E' Lat: 18.00 PHT: 34.00 MVA PHT: 6.47 Decel [place]: 7.03 Aortic Valve AoV Pk Kodak: 1.23 AoV Mn Kodak: 0.89 AoV VTI: 0.25 AoV Pk Grad: 6.00 Aov Mn Grad: 4.00 DERRELL Cont.VTI: 1.43 LVOT LVOT Pk Kodak: 0.63 LVOT Mn Kodak: 0.44 LVOT VTI: 0.12 LVOT Pk Grad: 2.00 LVOT Mn Grad: 1.00 LVOT Diam: 2.00 LVOT Area: 3.14 Diastolic Function MV Pk E: 0.81 MV Pk A: 0.63 E/A: 1.30 E'Medial: 2.94 E/E' Med: 27.60 E' Laterial: 4.50 E/E' Lat: 18.00 Right Ventricle TAPSE (mm): 15.80 TVS' Kodak: 6.87 Tricuspid Valve TR Pk Kodak: 3.27 TR Pk Grad: 43.00 RA Press: 15.00 RVSP: 58.00 Great Vessels Aorta Sinus of Valsalva: 2.80 2.0-3.5 cm Ao Asc: 3.20 2.1-3.4 cm Pulmonary Valve PV Pk Kodak: 0.61 Peak PV Grad: 1.00 Updated in Other Vendor System with Status of Final Marino Dale MD electronically signed on 01/27/2025 1:58:56 PM with status of Final
--- OUTSIDE RECORDS SUMMARY | 2025-01-26 15:52 | XMS_ITS | Clinical Summary ---
Author Organization [facility] Address [address] [facility] [address] [place] [address] Phone Care Team Providers Care Manager Production Name Role Phone Rosalind Cardoso TAMY Primary Care Provider [phone] Allergies No known active allergies Medications aspirin [...] 100 UNIT/ML injection every night 07/18/2021 Active pioglitazone (ACTOS) 15 MG tablet Take [...] reviewed Chronic kidney disease, stage 2 (mild) Proteinuria 12/19/2022 Vitamin D deficiency 10/22/2022 07/04/2023 [...] & Plan: -Optometry: [facility] November 2021 -Dental: [facility] dental clinic -Pap: reports last 2019 and believes results were normal, referred to UroGYN -Colorectal CA screening: iFOBT neg 12/18/21, due December 2022 -Mammogram: BIRADS 3 on 01/16/22, due Jul 2022 -Outstanding vaccines: influenza, Tdap, Shingrix, PCV20, COVID CCA Tool And Die Manager Osi: plan to schedule follow up appts the following specialists: [facility] Nephrology [facility] UroGYN Generalized abdominal pain 06/20/2022 Overview [...] Office Visit [facility] [address] [place] [address] Barron Wetzel MD Stage 3b chronic kidney [...] Office Visit [facility] [address] [place] [address] Barron Wetzel MD [address] [phone] Health Maintenance Due Date Last Done Comments [...] patient's age to complete this topic [place] [address] ([id number]) [place] [address] ([id number]) Care Teams Manager Production Relationship Specialty Start Date End Date Rosalind Cardoso FNP [address] [place] [phone] PCP - General 11/12/23
--- OUTSIDE RECORDS SUMMARY | 2025-01-26 15:52 | XMS_ITS | Encounter Summary ---
Author Organization [employer] Address [address] [place] [address] 7 [place] [address] Care Team Providers Care Program Analyst Name Role Phone Rosalind Cardoso Primary Care Provider [phone] Barron Wetzel MD Unavailable [phone] Madeline Yo Unavailable Encounter Details Date Type Department Care Team (Late st Contact Info) Description 06/19/2024 Orders Only [facility] MED & PEDS [address] [place], [place] [phone] Rosalind Cardoso FNP [address] [place], [place] [phone] Type 2 diabetes mellitus with stage 3 [...] Care Team (Late st Contact Info) Description 01/29/2025 11:30 AM EDT Telemedicine [facility] MED [facility] PEDS [address] [place] [address] Amira Ayoub, PharmD [address] [place] [address] documented as of this encounter Procedures Procedure [...] unspecified whether stage 3a or 3b CKD ([facility]/HCC) Primary hypertension Stage 3b chronic kidney disease ([facility]/HCC) 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 ([facility]) documented in this encounter Results * Prothrombin Time-INR (06/23/2024 10:31 AM EST) Prothrombin Time 11.3 10.9 - 12.4 SEC [facility] INTERNATIONAL NORM RATIO 1.0 0.9 - 1.1 [facility] Comment:INTERNATIONAL NORMAL IZED RATIO (INR) [...] 06/23/2024 10:31 AM EST us Rosalind Cardoso [facility] LAB BLOOD ORDERABLES Final Res ult [facility] [address] [place] [phone] * (ABNORMAL) Sed Rate by Modified Westergren (06/23/2024 10:31 AM EST) Erythrocyte Sedimentation Rate 38(H) 0 - 20 MM/HR [facility] Comment:Patients with polycy themia and many hemoglobin abnormalitiesmay have depressed sed rates whereas patients with anemiamay have elevated sed rates. Blood Venous blood specimen / Unknown 06/23/2024 10:31 AM EST 06/23/2024 10:31 AM EST us Rosalind Cardoso WELFARE DIRECTOR LAB BLOOD ORDERABLES Final Res ult Performing Organization Address City/[facility]/ZIP Co de Phone Number [facility] [address] [place] [address] [phone] * (ABNORMAL) Comprehensive Metabolic Panel (06/23/2024 10:31 AM EST) Sodium 134(L) 135 - 145 mmol/L [facility] Potassium 4.1 3.3 - 5.1 mmol/L [facility] Chloride 97 96 - 108 mmol/L [facility] Carbon Dioxide 27 22 - 29 mmol/L [facility] Anion Gap 14 12 - 20 [facility] Urea Nitrogen (BUN) 45(H) 9 - 16 mg/dL [facility] Creatinine, Serum 1.91(H) 0.5 - 1.4 mg/dL [facility] Estimated Glomerular Filt Rate 27 [facility] Comment:Chronic Kidney Disea se: Estimated GFR < 60 mL/min/1.74f5[place]ua Kidney Disease: Estimated GFR < 15 mL/min/1.73m2 Glucose 287(H) 60 - 115 mg/dL [facility] Calcium 9.1 8.4 - 10.2 mg/dL [facility] Bilirubin, Total 0.3 0.0 - 1.0 mg/dL [facility] Aspartate Amino Transferase 19 5 - 31 U/L [facility] Alanine Aminotransferase 11 0 - 31 U/L [facility] Total Protein 7.4 6.5 - 8.0 g/dL [facility] Albumin Level 3.6 3.5 - 5.0 g/dL [facility] Alkaline Phosphatase 99 39 - 117 U/L [facility] Blood Venous blood specimen / Unknown 06/23/2024 10:31 AM EST 06/23/2024 10:31 AM EST us Rosalind Cardoso WELFARE DIRECTOR LAB BLOOD ORDERABLES Final Res ult [facility] [address] [place] [address] [phone] documented in this encounter Visit Diagnoses Diagnosis Type 2 diabetes mellitus with stage 3 chronic kidney disease, with long-term current use of insulin, unspecified whether stage 3a or 3b CKD ([facility]/HCC) Primary hypertension Unspecified essential hypertension Stage 3b chronic kidney disease ([facility]) 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 ([facility]) documented in this encounter Additional Health Concerns Assessment Noted Time PHQ-9 Depression Total Score: 0 12/26/19 23 1:09 PM EDT documented as of this encounter Care Teams Program Analyst Relationship Specialty Start Date End Date Rosalind Cardoso FNP [address] [place] [address] PCP - General Family Medicine 04/28/21 Barron Wetzel MD [address] [facility] [address] [place] [address] Nephrology 01/15/25 Madeline Yo [address] [place] [address] Drive [address] [place] [address] Cardiology 01/15/25 [employer] 01/05/25 documented as of this encounter
--- OUTSIDE RECORDS SUMMARY | 2025-01-26 15:53 | XMS_ITS | Patient Health Record ---
Demographics Address [address] [place] [address] Email Address Preferred Language en Marital Status Unknown Anabaptism Affiliation Unknown Race White Ethnic Group Not or Lati no Author Organization [facility] Address [address] [place] [address] Support Name Relationship Address Phone Yessenia Parish Emergency Contact [address] [place] [address] TAODONNA Guarantor Unknown [phone] Care Team Providers Care Warp Placer Name Role Phone Arianna [place] Primary Care Provider Nate Florez [phone] Reason For Referral No Information Medications Medication [...] Problem Status W/U Status Risk Notes Problem [id number] Encounter for screening for malignant neoplasm of colon (Z12.11) Active confirmed Problem 896220706 Irritable bowel syndrome with diarrhea (K58.0) Active confirmed Problem 645595595 Calculus of gallbladder without cholecystitis without obstruction (K80.20) Active confirmed Problem Encounter for screening for malignant neoplasm of rectum (Z12.12) Active confirmed Problem 502400236 Microcytic anemi a (D50.9) Active confirmed Plan [...] Start Date Coverage End Date MEDICARE OF [place] [address] [place] [id number] DONNA PARISH Self - patient is the insured [place] [facility] [address] [place] [id number] DONNA PARISH Self - patient is the insured Medical (General) History Medical History History ICD Code NIDDM Hypertension Denies MO,CVA,Lung disease Mild renal insufficiency Urinary incontinence She reports fatty liver--see n in [facility]--no liver biopsy was done--however, she had a normal liver profile in November of 2015, and had a normal liver ultrasound and MRI as well IBS--seen by GI MD in [facility] Gallstones Microcytic anemia Surgical History Surgery Date(Month/Year) Exploratory laparotomy 1988 D&C 1997
--- OUTSIDE RECORDS SUMMARY | 2025-01-26 15:53 | XMS_ITS | Data Portability ---
Author Organization [employer] [facility] Address [address] [place] [phone] Care Team Providers Care Furniture Upholsterer Name Role Phone [facility] Referring Provider [phone] [facility] Referring Provider Assessment Encounter Date Assessment Date Assessment LastModified by Organization Details LastModified Time 07/24/2023 07/24/2023 I provided real -time medical direction via phone for this encounter, and was available for additional phone based assistance as needed. I have reviewed and agree with the Assessment and Plan as documented by the Grain Receiver. Patient given the opportunity to ask questions. [...] hemoglobin + hematocrit, blood 2023 024 [place] [facility], [address] [place] [address], [phone] 09:28:43 Referral None recorded. Procedures None recorded. [...] APPLY TOPICALLY TO AFFECTED AREA(S) DIRECTED BY [facility] active Not Available Not [...] Available Not Available No t Available [employer] Wysox Lite kit USE TO TEST BLOOD SUGAR [...] [degF] 86 /min 166/84 mm[Hg] Not Available [employer] - production 4 12:58:02 Date Recorded Body temperature Oxygen saturation Oxygen saturation in Arterial blood by Pulse oximetry Heart rate Respiratory rate Systolic And Diastolic Provider Name and Address Organization Details Last Updated DateTime 2 98.2 [degF] 100 % 100 % 108 /min 16 /min 132/81 mm[Hg] Not Available [employer] - production 2 16:51:45 Social History None [...] 4923 Anish Rocha MD Main - [facility] [address] [place] [phone] 05/04/2022 16:51:33 05/08/2022 15:59:32 Chest pain 72831386 R07.9 Chronic. Symptoms for months. EKG with no ST-T wave changes. Advised to f/u with primary care team for abdominal US/ECHO and possible CT chest given chronicity of symtpoms 18263 Anny Whalen MD Main - [facility] [address] [place] [phone] 07/24/2023 12:57:53 07/25/2023 09:42:01 Anemia 127726239 D64.9 Health Concerns Section Related Observation LastModified by Organization Detai ls LastModified Time None Recorded Concern Status LastModified by Organization Details LastModified Time None Recorded Advance Directives Directive None Recorded Payers Insurance Date Sequence Insurance Name Policy Number Policy Penn Covered Member ID Penn Member ID Guarantor Name 07/24/2023 1 [facility] - DOS PRIOR TO 2022 - DUAL ELIGIBLE (MEDICARE REPLACEMENT/ADV ANTAGE - HMO) Mitra Parish [id number] Mitra Parish 09/01/2023 1 [facility] [email or web address] - DOS ON OR AFTER 2022 - DUAL ELIGIBLE - RETIREMENT OPTIONS AND ONE CARE (MEDICARE REPLACEMENT/ADV ANTAGE - HMO) Mitra Марина [id number] Mitra Hanks Марина Notes Date Note Type [...] .................. .................. .................. .................. .................. .................. ............... Grain Receiver Note: Patient chief complaint of epigastric pain. Patient states ongoing pain for one month following angiogram. Patient states the pain begins at her ribs, goes through her lungs, and into her breasts. patient vitals WNL, 108 HR noted. 12 lead EKG performed, showing 108 HR and occasional PVC. [facility] contacted. Patient instructed to follow up with PCP for sonography. Education given, red flags discussed. .................. .................. .................. .................. .................. .................. .................. ............... Disposition: Fulfilled Anish Rocha MD [address] [place] [address],[facility], [place], [phone], [employer] 05/05/2022 13:11:58 07/24/2023 text/html HPI: Patient with history of CKD stage 3b , microcytic anemia. follows with Dr. Mattson not seen in > 2 months for procrit injections. Last H&H in chart 06/10/23 Hgb 9.9 HCT 33.6. Patient is an amputee unable to get out to appt. Has pending PUBLIC SERVICE REPRESENTATIVE but not in place at this time. [...] .................. .................. .................. .................. .................. .................. ............... Grain Receiver Note From Maximus Neal: Dispatched to the [...] non tender/distended, pupils PERRL. Blood draw from [facility] with 23g butterfly. BMP. HCT 33, Hb 11.2. [facility] consulted. Pt advised of results. Red flags discussed. ALL times are approx. .................. .................. .................. .................. .................. .................. .................. ............... Disposition: Fulfilled Anny Whalen MD [address] [place] [address],[facility], [place], [phone], [employer] 07/24/2023 12:59:58 OBGyn Episode No OBEpisode recorded.
--- OUTSIDE RECORDS SUMMARY | 2025-01-26 15:53 | XMS_ITS | Clinical Summary ---
Author Organization [address] [place] [address] Address [address] [place] [address] Phone Care Team Providers Care Marketing Analytics Specialist Name Role Phone Physician, Pcp Unknown Primary [...] Diagnosed Date DM2 (diabetes mellitus, type 2) ([facility] V24, [facility] V28) 10/22/2022 Hx of BKA, left ([facility] V24, [facility] V28) 10/22 Hyperlipidemia 10/22/2022 Hypertension 10/22/2022 PAD (peripheral artery disease) ([facility] V24) Vitamin D deficiency 10/22/2022 Encounters Date Type Department Care Team Description 01/19/2025 10:45 AM EDT Office Visit Orthopedic Surgery [facility] [address] [place] [address] [address] [place] [phone] Raheel Quijano DPM Dermatophytosis of nail (Primary Dx); Type II diabetes mellitus with peripheral circulatory disorder ([facility] V24, [facility] V28); Diabetic mononeuropathy simplex ([facility] V24, [facility] V28); Fissure in skin of right foot 01/06/2025 1:00 PM EDT Office Visit Vascular Surgery [facility] 300 [facility] [address] [place] [phone] Oralia Borden MD PAD (peripheral artery disease) ([facility] V24) (Primary Dx); Hx of BKA, left ([facility] V24, [facility] V28) 10/27/2024 12:00 PM EDT Ancillary Procedure [facility] 101 300 [facility] 101 [place] [address] PAD (peripheral artery disease) ([facility] V24) from Last 3 Months Surgical History Surgery Date Site/Laterality Comments OTHER SURGICAL HISTORY 09/01/2022 Left PROCEDURE: CT AMPUTATION LEG THROUGH TIBIA&FIBULA Social History Tobacco [...] PM EDT Office Visit Orthopedic Surgery - [place] 250 175 [facility] 250 [place] [phone] Raheel Quijano, DPM [address] [address] 01/12/2026 1:00 PM EDT Office Visit Vascular Surgery - [place] 300 [facility] 210 [place] [address] Oralia Borden MD 300 [facility] 210 [place] [address] Health Maintenance Due Date Last Done Comments [...] (uACR) 08/21/2023 COVID-19 Vaccine ( season) 2024 Depression Screening 07/08/2024 Influenza Vaccine (#1) 2025 Diabetes: Blood Sugar Control Test (HGBA1C) 05/29/2025 11/26/2024, 08/03/2024 Diabetes: Annual GFR (Glomerular Filtration Rate) [...] 1:17 PM EDT PAD (peripheral artery disease) ([facility] V24) from Last 3 Months Results * Vascular US duplex lower extremity arteries bilateral with MANUEL (10/27/2024 1:17 PM EDT) Left STREET RAILWAY LINE INSTALLER prox sys PSV 104 cm/s CV VAS [...] PSV 93 cm/s CV VAS LAB Right STREET RAILWAY LINE INSTALLER prox sys PSV 122 cm/s CV VAS [...] flow. The popliteal artery has monophasic flow. Airfield Engineer Officer Details A edmonds scale, color and doppler analysis ultrasound was performed. During the study longitudinal views were obtained. Pulsed wave doppler was performed. us Nu ENCISO CV VASCULAR PROCEDURES Final Result from Last 3 Months Insurance [facility] MEDICARE Member Subscriber Plan / Payer (Ef fective 2016-Present) Name:MITRA PARISH Relation to Subscriber:Self Name:Mitra Parish Payer ID:[id number] Group ID:[id number] Type:Not on file Address: [address] [place] [phone] Advance Directives Documents on File Type Date Recorded Patient Student Ambassador Expl anation Health Care Decision (hx) 09/04/2022 AD REINOSO DIRECTIVE Health Care Decision (hx) 09/04/2022 AD REINOSO DIRECTIVE Care Teams Marketing Analytics Specialist Relationship Specialty Start Date End Date Physician, Pcp Unknown PCP - General 07/27/24
== END ==
LOC: HO.CARD 14:42
PROVIDERS: PCP Registered Nurse
DX: I50.9 Heart failure, unspecified (principal); R60.9 Edema, unspecified
CPT/HCPCS: 93306

== ENCOUNTER → 2025-01-26 14:44 | Outpatient (BNV) | payer OTHER, SELFPAY | PROVIDERS: PCP Registered Nurse; Visit Provider Internal Medicine | DX: I51.89 Other ill-defined heart diseases (principal); I27.20 Pulmonary hypertension, unspecified | CPT/HCPCS: 93306 ==

== ENCOUNTER 2025-02-11 11:23 | Outpatient (REF) | payer OTHER, SELFPAY ==
[2025-02-11 11:33] LABS: MANUAL DIFF FLAG NO
[2025-02-11 11:52] LABS: Hematocrit 34.8 % (37.0-47.0); Hemoglobin 10.6 g/dl (12.0-16.0); Imm Gran Abs Auto 0.03 X10*3/uL (0.00-0.03); Imm Gran Pct Auto 0.4 % (0.0-0.4); Lymphocytes Absolute Auto 2.0 X10*3/uL (1.2-4.9); Mean Corpuscular HGB Conc 30.5 g/dl (31.0-35.0); Mean Corpuscular Hemoglobin 19.0 pg (27.0-33.0); NRBC Abs Auto 0.000 X10*3/uL (0.0-0.012); NRBC Pct Auto 0.0 /100WBC (0.0-0.2); Platelet Count 322 X10*3/uL (160-400); Red Blood Count 5.59 X10*6/uL (4.20-5.50); White Blood Count 7.8 X10*3/uL (4.8-10.8)
[2025-02-11 11:53] LABS: Mean Corpuscular Volume 62.3 fL (80.0-98.0)
--- OUTSIDE RECORDS SUMMARY | 2025-02-11 12:05 | XMS_ITS | Clinical Summary ---
Author Organization [address] [place] [address] Address [address] [place] [address] Phone Care Team Providers Care Commanding Officer Garage Name Role Phone Physician, Pcp Unknown Primary [...] Diagnosed Date DM2 (diabetes mellitus, type 2) ([facility] V24, [facility] V28) 10/22/2022 Hx of BKA, left ([facility] V24, [facility] V28) 10/22 Hyperlipidemia 10/22/2022 Hypertension 10/22/2022 PAD (peripheral artery disease) ([facility] V24) Vitamin D deficiency 10/22/2022 Encounters Date Type Department Care Team Description 01/19/2025 10:45 AM EDT Office Visit Orthopedic Surgery - [place] [address] [place] [address] 250 [place] [phone] Raheel Quijano DPM Dermatophytosis of nail (Primary Dx); Type II diabetes mellitus with peripheral circulatory disorder ([facility] V24, [facility] V28); Diabetic mononeuropathy simplex ([facility] V24, [facility] V28); Fissure in skin of right foot 01/06/2025 1:00 PM EDT Office Visit Vascular Surgery [facility] [address] [place] [address] Oralia Borden MD PAD (peripheral artery disease) ([facility] V24) (Primary Dx); Hx of BKA, left ([facility] V24, [facility] V28) from Last 3 Months Surgical History Surgery Date Site/Laterality Comments OTHER SURGICAL HISTORY 09/01/2022 Left PROCEDURE: [place] AMPUTATION LEG THROUGH TIBIA&FIBULA Social History Tobacco [...] PM EDT Office Visit Orthopedic Surgery - [place] 250 175 [facility] [address] [place] [address] Raheel Quijano, DPM [address] [address] 01/12/2026 1:00 PM EDT Office Visit Vascular Surgery - [place] [address] [place] [address] Oralia [facility]orden MD [facility] 210 [place] [address] Health Maintenance Due Date Last Done Comments [...] patient's age to complete this topic Insurance [facility] MEDICARE Member Subscriber Plan / Payer (Ef fective 2016-Present) Name:MITRA PARISH Relation to Subscriber:Self Name:Mitra Parish Payer ID:[id number] Group ID:[id number] Type:Not on file Address: [facility] [address] [place] [phone] Advance Directives Documents on File Type Date Recorded Patient Test Cell Technician Expl anation Health Care Decision (hx) 09/04/2022 AD REINOSO DIRECTIVE Health Care Decision (hx) 09/04/2022 AD REINOSO DIRECTIVE Care Teams Commanding Officer Garage Relationship Specialty Start Date End Date Physician, Pcp Unknown PCP - General 07/27/24
--- OUTSIDE RECORDS SUMMARY | 2025-02-11 12:05 | XMS_ITS | Encounter Summary ---
Author Organization [employer] Address [address] [place] [address] 7 [place] [address] Care Team Providers Care Vertical Roll Operator Name Role Phone Rosalind Cardoso Primary Care Provider [phone] Barron Wetzel MD Unavailable Madeline Yo Unavailable Encounter Details Date Type Department Care Team (Late st Contact Info) Description 06/19/2024 Orders Only [facility] [address] [place], [place] [phone] Rosalind Cardoso FNP [address] [place], [place] [phone] Type 2 diabetes mellitus with stage 3 [...] the past 12 months, has t he [facility], gas, oil or water company threatened to [...] Prothrombin Time 11.3 10.9 - 12.4 SEC [facility] INTERNATIONAL [...] AM EST 06/23/2024 10:31 AM EST Rosalind trinketP LAB BLOOD ORDERABLES Final Res ult Performing Organization Address [facility] Co de Phone Number [facility] [address] [place] [phone] * (ABNORMAL) Sed Rate by Modified Westergren (06/23/2024 10:31 AM EST) Erythrocyte Sedimentation Rate 38(H) 0 - 20 MM/HR [facility] Comment:Patients with polycy themia and many hemoglobin abnormalitiesmay have depressed sed rates whereas patients with anemiamay have elevated sed rates. Blood Venous blood specimen / Unknown 06/23/2024 10:31 AM EST 06/23/2024 10:31 AM EST [employer] LAB BLOOD ORDERABLES Final Res ult Performing Organization Address City/[facility]/ZIP Co de Phone Number [facility] [address] [place] [phone] * (ABNORMAL) Comprehensive Metabolic Panel (06/23/2024 10:31 AM EST) Sodium 134(L) 135 - 145 mmol/L [facility] Potassium 4.1 3.3 - 5.1 mmol/L [facility] Chloride 97 96 - 108 mmol/L [facility] Carbon Dioxide 27 22 - 29 mmol/L [facility] Anion Gap 14 12 - 20 [facility] Urea Nitrogen (BUN) 45(H) 9 - 16 mg/dL [facility] Creatinine, Serum 1.91(H) 0.5 - 1.4 mg/dL [facility] Estimated Glomerular Filt Rate 27 [facility] Comment:Chronic Kidney Disea se: Estimated GFR < 60 mL/min/1.46k3Kqjtiq Kidney Disease: Estimated GFR < 15 mL/min/1.73m2 Glucose 287(H) 60 - 115 mg/dL [facility] Calcium 9.1 8.4 - 10.2 mg/dL [facility] Bilirubin, Total 0.3 0.0 - 1.0 mg/dL [facility] Aspartate Amino Transferase 19 5 - 31 U/L [facility] Alanine Aminotransferase 11 0 - 31 U/L [facility] Total Protein 7.4 6.5 - 8.0 g/dL [facility] Albumin Level 3.6 3.5 - 5.0 g/dL [facility] Alkaline Phosphatase 99 39 - 117 U/L [facility] Blood Venous blood specimen / Unknown 06/23/2024 10:31 AM EST 06/23/2024 10:31 AM EST us Rosalind Cardoso [facility] BLOOD ORDERABLES Final Res ult [facility] [address] [place] [phone] documented in this encounter Visit Diagnoses Diagnosis Type 2 diabetes mellitus with stage 3 chronic kidney disease, with long-term current use of insulin, unspecified whether stage 3a or 3b CKD (CMS/HCC) Primary hypertension Unspecified essential hypertension Stage 3b chronic kidney disease ([facility]/HCC) 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
--- OUTSIDE RECORDS SUMMARY | 2025-02-11 12:05 | XMS_ITS | Patient Health Record ---
Author Organization [facility] Address [address] [facility] [place] [address] Care Team Providers Care Supervisor Pipe Joints Name Role Phone Lesvia Sosa Unavailable [phone] Reason For Referral No Information Medications Medication [...] Oral; Duration: 90 Active [employer] Short Pen Max 31G X 8 MM USE ONCE DAILY [...] Problem Arthropathy associated with a neurological disorder (60864790) Charcot's joint, left ankle and foot (M14.672) Active confirmed Problem Acquired hammer toe of right foot (6359750537182989 ) Hammer toe of right foot (M20.41) Active confirmed Problem Acquired hammer toe of left foot (9139956743466246 ) Hammer toe of left foot (M20.42) Active confirmed Problem Neuropathy (764419691) Neuropathy (G62.9) Active confirmed Problem Polyneuropathy due to type 2 diabetes mellitus (795159206) Type 2 diabetes mellitus with polyneuropathy (E11.42) Active confirmed Plan Of Treatment Pending Test Test Name Order Date X ray : Foot, left 3V 11/28/2021 X ray : Foot, right 3V 11/28/2021 Insurance Providers Payer Name Payer Address Payer Phone Subscriber Number Group Number Insured Name Patient Relationship to Insured Coverage Start Date Coverage End Date [facility] CCA [employer]CO Claims [address] [place] [phone] [id number] Mitra Parish Self - patient is the insured Medical (General) History Medical History History ICD Code Anemia Arthritis Back,Hip,and Knee pain Cholesterol Cataracts Diabetic Headaches/Migraines Heart disease High blood pressure Kidney disease Neuropathy Psoriasis/eczema Measles Chicken pox Surgical History Surgery Date(Month/Year) Angeogram D+C 1987 Exploratory RIVETER PNEUMATIC 1988
--- OUTSIDE RECORDS SUMMARY | 2025-02-11 12:05 | XMS_ITS | Clinical Summary ---
Author Organization [facility] Address [address] [facility] [address] [place] [address] Phone Care Team Providers Care Armature Balancer Name Role Phone Rosalind Cardoso TAMY Primary Care Provider [phone] Allergies No known active allergies Medications aspirin [...] BKA performed by Dr. Borden 09/01/22 at [facility] -Indication: gangrene and ulcers of [...] Plan: -Optometry: [facility] November 2021 -Dental: [facility] dental clinic -Pap: reports last 2019 and believes results were normal, referred to UroGYN -Colorectal CA screening: iFOBT neg 12/18/21, due December 2022 -Mammogram: BIRADS 3 on 01/16/22, due Jul 2022 -Outstanding vaccines: influenza, Tdap, Shingrix, PCV20, COVID CCA Hammer Heater Osi: plan to schedule follow up appts the following specialists: [facility] Nephrology [facility]o [facility] Cards [facility] UroGYN Generalized abdominal pain 06/20/2022 Overview [...] Visit [facility]by[facility]. [address] [place] [address] Barron Wetzel MD Stage 3b chronic kidney [...] Office Visit [facility] [address] [place] [address] Barron Wetzel MD [address] [phone] Health Maintenance Due Date Last Done Comments [...] patient's age to complete this topic [place] [address] ([id number]) [place] [address] ([id number]) Care Teams Armature Balancer Relationship Specialty Start Date End Date Rosalind Cardoso FNP [address] [place] [phone] PCP - General 11/12/23
--- OUTSIDE RECORDS SUMMARY | 2025-02-11 12:05 | XMS_ITS | Patient Health Record ---
Demographics Address [address] [place] [address] Email Address Preferred Language en Marital Status Unknown Restorationism Affiliation Unknown Race White Ethnic Group Not or Lati no Author Organization [facility] Address [address] [place] [address] Support Name Relationship Address Phone Yessenia Parish Emergency Contact [address] [place] [address] TAODONNA Guarantor Unknown [phone] Care Team Providers Care Director Of Culture Name Role Phone Arianna Whitmore Primary Care Provider Nate Florez [phone] Reason For Referral No Information Medications Medication [...] Problem Status W/U Status Risk Notes Problem [id number] Encounter for screening for malignant neoplasm of colon (Z12.11) Active confirmed Problem 851184817 Irritable bowel syndrome with diarrhea (K58.0) Active confirmed Problem 917445291 Calculus of gallbladder without cholecystitis without obstruction (K80.20) Active confirmed Problem Encounter for screening for malignant neoplasm of rectum (Z12.12) Active confirmed Problem 182467468 Microcytic anemi a (D50.9) Active confirmed Plan [...] OF [place] [address] [place] [address] [id number] DONNA PARISH Self - patient is the insured [facility]ICAID [facility] [address] [place] [phone] [id number] DONNA PARISH Self - patient is the insured Medical (General) History Medical History History ICD Code NIDDM Hypertension Denies NM,CVA,Lung disease Mild renal insufficiency Urinary incontinence She reports fatty liver--see n in [facility]--no liver biopsy was done--however, she had a normal liver profile in November of 2015, and had a normal liver ultrasound and MRI as well IBS--seen by GI MD in [facility] Gallstones Microcytic anemia Surgical History Surgery Date(Month/Year) Exploratory laparotomy 1988 D&C 1997
[2025-02-11 12:22] LABS: Cholesterol 214 mg/dL (<200); HDL Cholesterol 25 mg/dL (>40); Triglycerides 189 mg/dL (<150)
== END 2025-02-11 11:24 | disposition home or self-care (01) ==
LOC: HO.LAB 11:23
PROVIDERS: Absent Provider Internal Medicine Medical Oncology; PCP Registered Nurse; Referring Provider Nurse Practitioner Family; Visit Provider Registered Nurse
DX: I25.10 Atherosclerotic heart disease of native coronary artery without angina pectoris (principal); D64.9 Anemia, unspecified
CPT/HCPCS: 36415; 80061; 85025

== ENCOUNTER 2025-02-22 09:03 | Outpatient (AMB) | payer OTHER, SELFPAY ==
[2025-02-22 09:10] VITALS: BP 134/82; PULSE 73
--- NOTE | 2025-02-22 09:10 | A.OFFVIS_ITS ---
Vital Signs 02/22/25 09:10 Height 5 ft BP 134/82 Blood Pressure Location Lt brachial Position Sitting Pulse 73 Pulse Source Monitor Intake Visit Reasons: r/s 02/12/25 followup per madeline Group Worker Required: No Tactical Intelligence Officer: Tactical Intelligence Officer Present Allergies No Known Allergies Allergy (Verified 02/22/25 09:11) Medication List - Last Reconciled 02/22/25 by CLARENCE Almanzar amlodipine 10 mg PO DAILY aspirin 81 mg PO DAILY atorvastatin 80 mg PO BEDTIME blood sugar diagnostic (FreeStyle Lite Strips) As directed cholecalciferol (vitamin D3) 1 tab PO DAILY clotrimazole 1% 1 appl topical QAM AND QHS ezetimibe 10 mg PO DAILY folic acid 1 mg PO DAILY furosemide 80 mg (2 x 40 mg) PO DAILY 90 days insulin glargine (Lantus Solostar U-100 Insulin) 45 units subcut DAILY isosorbide mononitrate ER 60 mg PO DAILY lancets (TRUEplus Lancets) As directed lidocaine 5% 1 patch topical DAILY lisinopril 10 mg PO DAILY magnesium oxide 400 mg PO TID metoprolol succinate ER 100 mg PO DAILY pen needle, diabetic (UltiCare Pen Needle) As directed HPI HPI r/s 02/12/25 followup per madeline: Details: Mitra is a 58 yo female with PMH of HTN, DM,CKD, PVD, Left BKA, chronic anemia, SVT, moderate CAD as seen on CTA of coronaries who recently had echocardiogram that showed abnormal findings and now presents for follow up. Today she reports that she has been noticing increased shortness of breath especially with physical activity. She is mostly sedentary and sits in her wheelchair. She does have to crawl up her stairs to her 4th floor apartment at times, when elevator is not working. She is not using a left leg prosthetic as it is uncomfortable to wear. She has not had issues with edema like she had in the past. She has no chest discomfort at rest or with activity. No palpitations, lightheadedness, presyncope, syncope. Taking all meds as directed. She has declined cardiac catheterization in the past due to her fear of angiograms. She had procedure on left leg in the past that resulted in left BKA. Daughter Asya is present. [facility] Medical History (Updated 02/22/25 @ 10:15 by Madeline Yo NP-C) PAD (peripheral artery disease) Below-knee amputation of left lower extremity with complication Essential hypertension Obesity Chronic ulcer of right foot Peripheral vascular disease Anemia in chronic kidney disease (CKD) Acid reflux Osteomyelitis Leukocytosis Microcytic hypochromic anemia Irritable bowel syndrome Rectal prolapse Prolapsed uterus Carpal tunnel syndrome Peripheral neuropathy Retinopathy Osteoporosis Degenerative joint disease of spine Toe ulcer due to DM Hypertension Arthritis Surgical History S/P below knee amputation H/O dilation and curettage Family History Maternal Grandmother Diabetes Maternal Grandfather Heart disease Cancer of unknown origin Mother HTN (hypertension) Paternal Uncle Thalassemia Social History Household Members: Children Household Members Other:: 4 Housing: Apartment Are you a primary geriatric personal care aide to a significant other at home: No Do you presently have visiting nurse or other home services: No Unable to assess alcohol history related to: Unknown Alcohol intake: never Comment: pt refusing red socks and bed alarm Patient Tobacco Use Status: Never used Tobacco Second Hand Smoke Exposure: No service: No Current occupational status: disabled Female Reproductive History Menstrual Age of Menarche: 8 Review of Systems Const All systems reviewed & are unremarkable except as noted in HPI and below ENT Denies dizziness Card Denies chest pain, Denies chest pain at rest, Denies chest pain with activity, Denies rapid heart rate, Denies pedal edema, Denies edema, Denies leg edema, Denies lightheadedness, Denies palpitations, Reports dyspnea, Reports dyspnea on exertion and Denies orthopnea Resp Denies cough, Reports dyspnea and Reports dyspnea on exertion GI Denies hematochezia and Denies change in stool character Musc Details: in wheelchair. Left BKA Reports abnormal gait, Denies limited range of motion, Denies muscle cramps, Denies muscle weakness, Denies numbness, Denies radiating pain into limb, Denies stiffness and Denies tingling Neuro Reports abnormal gait, Denies dizziness, Denies numbness and Denies tingling Endo Denies palpitations Physical Exam Vital Signs: Last Vital Signs Pulse 73 02/22/25 09:10 BP 134/82 02/22/25 09:10 Const Other: sitting in wheelchair General: cooperative, healthy appearing, comfortable and no acute distress Orientation/consciousness: patient oriented x3 Neck Neck: Yes normal visual inspection and Yes no JVD Resp Effort & Inspection: normal respiratory effort Auscultation: clear to auscultation bilaterally, no crackles, no rales, no rhonchi and no wheezes Cardio Jugular venous distension: no JVD Rate: regular rate Rhythm: regular rhythm Heart sounds: S1 normal heart sound present, S2 normal heart sound present, no gallops, no murmurs and no rubs GI Inspection: Yes normal to inspection Neuro General: patient oriented x3 Extrem Other: Left BKA, No edema at present Psych Appearance: grossly normal Mental Status: mental status grossly normal Speech and movement: Normal speech and movement present Office Procedures EKG Details: Today, read by me sinus rhytm, possible inferior infarct, with T wave inversions inferolateral leads, rate 73, Qtc 449ms [id number], Complete Assessment & Plan Assessment & Plan (1) CAD (coronary artery disease): Comment: Moderate LAD and RCA stenosis on CTA of the coronary arteries 09/07/2022 - declined cardiac catheterization Code(s): I25.10 - Atherosclerotic heart disease of [place] coronary artery without angina pectoris Category: Medical Plan: She is known to have moderate nonobstructive coronary disease based on cardiac testing: CTA of the coronary arteries was done on 09/07/2022 showing 70% stenosis of the mid LAD between the 2nd and 3rd diagonal, RCA dominant with mid 50-60% stenosis. She had declined cardiac catheterization on prior visits. Currently reporting increasing shortness of breath. Echocardiogram done 01/26/2025 showing EF 25% with inferior wall motion abnormality, grade 2 diastolic dysfunction. Prior echo from 08/20/2022 had shown normal EF and no regional wall motion abnormality. EKG done today showing sinus rhythm with T-wave inversion inferior lateral leads, rate 73. Test results reviewed with her in detail. The need for cardiac catheterization reviewed. Details of the procedure explained and all questions answered. Risks of bleeding, infection, [place], mi, stroke discussed. At this time she is now agreeable to proceed. Will arrange for left heart catheterization, question PCI. Preprocedure labs ordered. She has known CKD. Continue triple antianginals including isosorbide, amlodipine and metoprolol. Continue aspirin, high-dose atorvastatin and Zetia. Signs and symptoms of angina reviewed with her. Emergency care if ever needed for symptoms. Cardiology follow-up 2 weeks post cath., sooner if needed. (2) Cardiomyopathy: Code(s): I42.9 - Cardiomyopathy, unspecified Category: Medical Plan: cardiomyopathy noted on recent echocardiogram. She does not appear fluid overloaded on exam. Continue metoprolol XL and lisinopril for neurohormonal modulation. Continue Lasix. Cardiac catheterization as above. (3) Edema: Code(s): R60.9 - Edema, unspecified Category: Medical Plan: Prior issues with leg edema, currently controlled with daily Lasix. No med changes made. (4) SVT (supraventricular tachycardia): Code(s): I47.1 - Supraventricular tachycardia Category: Medical Plan: Episode of SVT noted during [facility] admission 05/2022. Narrow complex tachycardia with heart rate in the 170s. She was treated with adenosine with conversion back to sinus rhythm. Holter monitor done on 07/27/2022 for 3 days showed sinus rhythm with average heart rate 87, PACs 2.25% of the time, short SVT runs, longest 6 beats. She has been maintained on metoprolol with no symptomatic re current SVT. Reviewed caffeine reduction, maintain good hydration and getting adequate rest. (5) Diabetes: Code(s): E11.9 - Type 2 diabetes mellitus without complications Category: Medical Plan: Hemoglobin A1c goal less than 7. Followed by her PCP (6) Anemia: Code(s): D64.9 - Anemia, unspecified Category: Medical Plan: History of chronic anemia. Has received transfusions in the past. Follows with Oncology/Hematology. Labs done 02/11/2025 showed hematocrit 34.8. She denies any signs of bleeding. (7) PAD (peripheral artery disease): Comment: 10/11/2021 - left anterior tibial plasty Code(s): I73.9 - Peripheral vascular disease, unspecified Category: Medical Plan: History of PID and left BKA. Follows with Dr. Vigil. Plan I discussed with the patient the need for a cardiac catheterization to evaluate coronary artery disease and potential stent placement. We reviewed the risks, including renal impairment and cardiac events. The patient expressed concerns about previous procedures, and I reassured her about the differences in this approach. We also discussed post-procedure care and the necessity of follow-up appointments to monitor her condition. Orders: Orders Cardiac Cath LT w PCI Today I25.10 - Atherosclerotic heart disease of [place] coronary artery without angina pectoris, I42.9 - Cardiomyopathy, unspecified Complete Blood Count Auto Diff Today I25.10 - Atherosclerotic heart disease of [place] coronary artery without angina pectoris, I42.9 - Cardiomyopathy, unspecified Basic Metabolic Panel Today I25.10 - Atherosclerotic heart disease of [place] coronary artery without angina pectoris, I42.9 - Cardiomyopathy, unspecified Prothrombin Time INR Today I25.10 - Atherosclerotic heart disease of [place] coronary artery without angina pectoris, I42.9 - Cardiomyopathy, unspecified Patient Instructions: - Prepare for cardiac catheterization by staying hydrated. - Monitor for any new or worsening symptoms and report them immediately. - Attend all follow-up appointments to ensure proper management of heart and kidney health. Patient was informed and verbally consented to the use of an ambient scribe for clinic note documentation during this visit. Visit time spent on chart review, interview, assessment, orders, documentation. Coding Level of Care Code Est Pt Level 4 (45200) Complex EM visit Add On G2211 Diagnoses CAD (coronary artery disease) I25.10 Cardiomyopathy I42.9 Edema R60.9 SVT (supraventricular tachycardia) I47.1 Diabetes E11.9 Anemia D64.9 PAD (peripheral artery disease) I73.9 CPT Codes EKG - CPT: 94330-[id number], Complete ([id number]) Time Spent (min) 34
--- OUTSIDE RECORDS SUMMARY | 2025-02-22 09:33 | XMS_ITS | Clinical Summary ---
Author Organization [address] [place] [address] [place] [phone] Phone Care Team Providers Care Production Roustabout Name Role Phone Physician, Pcp Unknown Primary [...] Diagnosed Date DM2 (diabetes mellitus, type 2) ([facility] V24, [facility] V28) 10/22/2022 Hx of BKA, left ([facility] V24, [facility] V28) 10/22 Hyperlipidemia 10/22/2022 Hypertension 10/22/2022 PAD (peripheral artery disease) ([facility] V24) Vitamin D deficiency 10/22/2022 Encounters Date Type Department Care Team Description 01/19/2025 10:45 AM EDT Office Visit Orthopedic Surgery - [place] [address] [place] [address] [address] [place] [phone] Raheel Quijano DPM Dermatophytosis of nail (Primary Dx); Type II diabetes mellitus with peripheral circulatory disorder ([facility] V24, [facility] V28); Diabetic mononeuropathy simplex ([facility] V24, [facility] V28); Fissure in skin of right foot 01/06/2025 1:00 PM EDT Office Visit Vascular Surgery [facility] [address] [place] [address] Oralia Borden MD PAD (peripheral artery disease) ([facility] V24) (Primary Dx); Hx of BKA, left ([facility] V24, [facility] V28) from Last 3 Months Surgical History Surgery Date Site/Laterality Comments OTHER SURGICAL HISTORY 09/01/2022 Left PROCEDURE: DC AMPUTATION LEG THROUGH TIBIA&FIBULA Social History Tobacco [...] PM EDT Office Visit Orthopedic Surgery - [place] [address] [facility] [address] [place] [address] Raheel Quijano, DPM [address] [address] 01/12/2026 1:00 PM EDT Office Visit Vascular Surgery - [place] [address] [place] [address] Oralia [facility]orden MD [address] [facility] [address] [place] [address] Health Maintenance Due Date Last Done Comments [...] ID:[id number] Group ID:[id number] Type:Not on file Address: [facility] [address] [phone] Advance Directives Documents on File Type Date Recorded Patient Operations Support Analyst Expl anation Health Care Decision (hx) 09/04/2022 AD REINOSO DIRECTIVE Health Care Decision (hx) 09/04/2022 AD REINOSO DIRECTIVE Care Teams Production Roustabout Relationship Specialty Start Date End Date Physician, Pcp Unknown PCP - General 07/27/24
--- OUTSIDE RECORDS SUMMARY | 2025-02-22 09:33 | XMS_ITS | Encounter Summary ---
Author Organization [facility] Address [address] [place] [address] 7 [place] [address] Care Team Providers Care Closed Circuit Screen Watcher Name Role Phone Rosalind Cardoso Primary Care Provider [phone] Barron Wetzel MD Unavailable [phone] Madeline Yo Unavailable Encounter Details Date Type Department Care Team (Late st Contact Info) Description 06/19/2024 Orders Only [facility] [address] [place], [place] [phone] Rosalind Cardoso FNP [address] [place], [place] [phone] Type 2 diabetes mellitus with stage 3 [...] Care Team (Late st Contact Info) Description 05/03/2025 11:15 AM EDT Office Visit [facility] [address] [place] [address] Rosalind Cardoso, TAMY [address] [place] [address] documented as of this encounter Procedures Procedure [...] whether stage 3a or 3b CKD ([facility]) Primary hypertension Stage 3b chronic kidney disease ([facility]) 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 ([facility]) documented in this encounter Results * Prothrombin Time-INR (06/23/2024 10:31 AM EST) Prothrombin Time 11.3 10.9 - 12.4 SEC [facility] INTERNATIONAL NORM RATIO 1.0 0.9 - 1.1 [facility] Comment:INTERNATIONAL NORMAL IZED RATIO (INR) [...] 06/23/2024 10:31 AM EST us Rosalind Cardoso [facility] BLOOD ORDERABLES Final Res ult [facility] [address] [place] [phone] * (ABNORMAL) Sed Rate by Modified Westergren (06/23/2024 10:31 AM EST) Erythrocyte Sedimentation Rate 38(H) 0 - 20 MM/HR [facility] Comment:Patients with polycy themia and many hemoglobin abnormalitiesmay have depressed sed rates whereas patients with anemiamay have elevated sed rates. Blood Venous blood specimen / Unknown 06/23/2024 10:31 AM EST 06/23/2024 10:31 AM EST us Rosalind Cardoso LOGISTICS ADMINISTRATOR LAB BLOOD ORDERABLES Final Res ult [facility] [address] [place] [address] [phone] * (ABNORMAL) Comprehensive Metabolic Panel (06/23/2024 10:31 AM EST) Sodium 134(L) 135 - 145 mmol/L [facility] Potassium 4.1 3.3 - 5.1 mmol/L [facility] Chloride 97 96 - 108 mmol/L [facility] Carbon Dioxide 27 22 - 29 mmol/L [facility] Anion Gap 14 12 - 20 [facility] Urea Nitrogen (BUN) 45(H) 9 - 16 mg/dL [facility] Creatinine, Serum 1.91(H) 0.5 - 1.4 mg/dL [facility] Estimated Glomerular Filt Rate 27 [facility] Comment:Chronic Kidney Disea se: Estimated GFR < 60 mL/min/1.41m2Mjkvgo Kidney Disease: Estimated GFR < 15 mL/min/1.73m2 Glucose 287(H) 60 - 115 mg/dL [facility] Calcium 9.1 8.4 - 10.2 mg/dL [facility] Bilirubin, Total 0.3 0.0 - 1.0 mg/dL [facility] Aspartate Amino Transferase 19 5 - 31 U/L [facility] Alanine Aminotransferase 11 0 - 31 U/L [facility] Total Protein 7.4 6.5 - 8.0 g/dL [facility] Albumin Level 3.6 3.5 - 5.0 g/dL [facility] Alkaline Phosphatase 99 39 - 117 U/L [facility] Blood Venous blood specimen / Unknown 06/23/2024 10:31 AM EST 06/23/2024 10:31 AM EST us Rosalind Cardoso LOGISTICS ADMINISTRATOR LAB BLOOD ORDERABLES Final Res ult [facility] [address] [place] [phone] documented in this encounter Visit Diagnoses Diagnosis Type 2 diabetes mellitus with stage 3 chronic kidney disease, with long-term current use of insulin, unspecified whether stage 3a or 3b CKD ([facility]) Primary hypertension Unspecified essential hypertension Stage 3b chronic kidney disease ([facility]) 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 ([facility]) documented in this encounter Additional Health Concerns Assessment Noted Time PHQ-9 Depression Total Score: 0 12/26/19 23 1:09 PM EDT documented as of this encounter Care Teams Closed Circuit Screen Watcher Relationship Specialty Start Date End Date Rosalind Cardoso FNP [address] [place] [address] PCP - General Family Medicine 04/28/21 Barron Wetzel MD [address] [facility] [address] [place] [address] Nephrology 01/15/25 Madeline Yo [address] [place] [address] Drive 3rd [place] [address] Cardiology 01/15/25 Help Remedies 01/05/25 documented as of this encounter
--- OUTSIDE RECORDS SUMMARY | 2025-02-22 09:33 | XMS_ITS | Clinical Summary ---
Author Organization [facility] Address [address] [place] [address] Phone Care Team Providers Care Histology Manager Name Role Phone Rosalind Cardoso TAMY Primary Care Provider [phone] Allergies No known active allergies Medications aspirin [...] performed by Dr. Borden 09/01/22 at [facility] -Indication: gangrene and ulcers of [...] Plan: -Optometry: [facility] November 2021 -Dental: [facility] dental clinic -Pap: reports last 2019 and believes results were normal, referred to UroGYN -Colorectal CA screening: iFOBT neg 12/18/21, due December 2022 -Mammogram: BIRADS 3 on 01/16/22, due Jul 2022 -Outstanding vaccines: influenza, Tdap, Shingrix, PCV20, COVID CCA Web Database Developer Osi: plan to schedule follow up appts the following specialists: [facility] Nephrology [facility]o [facility] UroGYN Generalized abdominal pain 06/20/2022 Overview [...] Visit [facility] [address] [place] [phone] Barron Wetzel MD Stage 3b chronic kidney [...] Office Visit [facility] [address] [place] [address] Barron Wetzel MD [address] [phone] Health Maintenance Due Date Last Done Comments [...] patient's age to complete this topic [place] [address] ([id number]) [place] [address] ([id number]) Care Teams Histology Manager Relationship Specialty Start Date End Date Rosalind Cardoso FNP [address] [place] [phone] PCP - General 11/12/23
--- OUTSIDE RECORDS SUMMARY | 2025-02-22 09:33 | XMS_ITS | Patient Health Record ---
Author Organization [facility] Address [address] [facility] [place] [address] Care Team Providers Care Sport Internship Name Role Phone Lesvia Sosa Unavailable [phone] Reason For Referral No Information Medications Medication [...] Oral; Duration: 90 Active UltiCare Short Pen Whittaker 31G X 8 MM USE ONCE DAILY [...] Problem Arthropathy associated with a neurological disorder (03390006) Charcot's joint, left ankle and foot (M14.672) Active confirmed Problem Acquired hammer toe of right foot ([id number] ) Hammer toe of right foot (M20.41) Active confirmed Problem Acquired hammer toe of left foot ([id number] ) Hammer toe of left foot (M20.42) Active confirmed Problem Neuropathy (699295054) Neuropathy (G62.9) Active confirmed Problem Polyneuropathy due to type 2 diabetes mellitus (306469222) Type 2 diabetes mellitus with polyneuropathy (E11.42) Active confirmed Plan Of Treatment Pending Test Test Name Order Date X ray : Foot, left 3V 11/28/2021 X ray : Foot, right 3V 11/28/2021 Insurance Providers Payer Name Payer Address Payer Phone Subscriber Number Group Number Insured Name Patient Relationship to Insured Coverage Start Date Coverage End Date [facility] [employer] Claims [address] [place] [id number] [place] Self - patient is the insured Medical (General) History Medical History History ICD Code Anemia Arthritis Back,Hip,and Knee pain Cholesterol Cataracts Diabetic Headaches/Migraines Heart disease High blood pressure Kidney disease Neuropathy Psoriasis/eczema Measles Chicken pox Surgical History Surgery Date(Month/Year) Angeogram D+C 1987 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
--- OUTSIDE RECORDS SUMMARY | 2025-02-22 09:33 | XMS_ITS | Patient Health Record ---
Demographics Address [address] [place] [address] Email Address Preferred Language en Marital Status Unknown Latter Day Affiliation Unknown Race White Ethnic Group Not or Lati no Author Organization [facility] Address [address] [place] [address] Support Name Relationship Address Phone Yessenia Parish Emergency Contact [address] [place] [address] TAODONNA Guarantor Unknown [phone] Care Team Providers Care Ornamental Plaster Sticker Name Role Phone Arianna Whitmore Primary Care Provider Nate Florez [phone] Reason For Referral No Information Medications Medication [...] Problem Status W/U Status Risk Notes Problem 220681458 Encounter for screening for malignant neoplasm of colon (Z12.11) Active confirmed Problem 553578328 Irritable bowel syndrome with diarrhea (K58.0) Active confirmed Problem 324347866 Calculus of gallbladder without cholecystitis without obstruction (K80.20) Active confirmed Problem Screening for malignant neoplasm of rectum (505526299) Encounter for screening for malignant neoplasm of rectum (Z12.12) Active confirmed Problem 414582264 Microcytic anemi a (D50.9) Active confirmed Plan [...] OF [place] [address] [place] [address] [id number] DONNA PARISH Self - patient is the insured MEDICAID OF [facility] [address] [place] [address] [id number] DONNA PARISH Self - patient is the insured Medical (General) History Medical History History ICD Code NIDDM Hypertension Denies [place],CVA,Lung disease Mild renal insufficiency Urinary incontinence She reports fatty liver--see n in [facility]--no liver biopsy was done--however, she had a normal liver profile in November of 2015, and had a normal liver ultrasound and MRI as well IBS--seen by GI MD in [facility] Gallstones Microcytic anemia Surgical History Surgery Date(Month/Year) Exploratory laparotomy 1988 D&C 1997
== END 2025-02-22 10:05 | disposition home or self-care (01) ==
LOC: HO.HCS 09:03
PROVIDERS: PCP Registered Nurse; Visit Provider Nurse Practitioner Family
DX: I25.10 Atherosclerotic heart disease of native coronary artery without angina pectoris (principal); I42.9 Cardiomyopathy, unspecified; R60.9 Edema, unspecified; I47.10 Supraventricular tachycardia, unspecified; E11.8 Type 2 diabetes mellitus with unspecified complications; D64.9 Anemia, unspecified; I73.9 Peripheral vascular disease, unspecified; I48.91 Unspecified atrial fibrillation
CPT/HCPCS: 93010; 99214; G2211

== ENCOUNTER → 2025-02-22 09:03 | Outpatient (BNVA) | payer OTHER, SELFPAY | PROVIDERS: PCP Registered Nurse; Visit Provider Nurse Practitioner Family | DX: I25.10 Atherosclerotic heart disease of native coronary artery without angina pectoris (principal); I42.9 Cardiomyopathy, unspecified; R60.9 Edema, unspecified; E11.9 Type 2 diabetes mellitus without complications; D64.9 Anemia, unspecified; I73.9 Peripheral vascular disease, unspecified; I47.10 Supraventricular tachycardia, unspecified | CPT/HCPCS: 93005; 99212 ==

== ENCOUNTER 2025-02-26 10:58 | Outpatient (REF) | payer OTHER, SELFPAY ==
--- OUTSIDE RECORDS SUMMARY | 2025-02-26 11:05 | XMS_ITS | Patient Health Record ---
Demographics Address [address] [place] [address] Email Address Preferred Language en Marital Status Unknown Confucianist Affiliation Unknown Race White Ethnic Group Not or Lati no Author Organization [facility] Address [address] [place] [address] Support Name Relationship Address Phone Yessenia Parish Emergency Contact [address] [place] [address] TAODONNA Guarantor Unknown [phone] Care Team Providers Care Hydro Electric Station Operator Name Role Phone Arianna Whitmore Primary Care Provider aNte Florez [phone] Reason For Referral No Information Medications Medication [...] Problem Status W/U Status Risk Notes Problem [id number] Encounter for screening for malignant neoplasm of colon (Z12.11) Active confirmed Problem 148736041 Irritable bowel syndrome with diarrhea (K58.0) Active confirmed Problem 980626893 Calculus of gallbladder without cholecystitis without obstruction (K80.20) Active confirmed Problem Screening for malignant neoplasm of rectum (556211497) Encounter for screening for malignant neoplasm of rectum (Z12.12) Active confirmed Problem 265958462 Microcytic anemi a (D50.9) Active confirmed Plan [...] OF [place] [address] [place] [address] [id number] DONNA PARISH Self - patient is the insured MEDICAID OF [facility] [address] [place] [phone] [id number] DONNA PARISH Self - patient is the insured Medical (General) History Medical History History ICD Code NIDDM Hypertension Denies [place],CVA,Lung disease Mild renal insufficiency Urinary incontinence She reports fatty liver--see n in [facility]--no liver biopsy was done--however, she had a normal liver profile in November of 2015, and had a normal liver ultrasound and MRI as well IBS--seen by GI MD in [facility] Gallstones Microcytic anemia Surgical History Surgery Date(Month/Year) Exploratory laparotomy 1988 D&C 1997
--- OUTSIDE RECORDS SUMMARY | 2025-02-26 11:05 | XMS_ITS | Encounter Summary ---
Author Organization [employer] Address [address] [place] [address] 7 [place] [address] Care Team Providers Care Bankman Name Role Phone Rosalind Cardoso Primary Care Provider [phone] Barron Wetzel MD Unavailable [phone] Madeline Yo Unavailable Encounter Details Date Type Department Care Team (Late st Contact Info) Description 06/19/2024 Orders Only [facility] MED & PEDS [address] [place], [place] [phone] Rosalind Cardoso FNP [address] [place], [place] [phone] Type 2 diabetes mellitus with stage 3 [...] Description 05/03/2025 11:15 AM EDT Office Visit [facility] MED & PEDS [address] [place] [address] Rosalind Cardoso, TAMY [address] [place] [address] documented as of this encounter Procedures Procedure [...] unspecified whether stage 3a or 3b CKD ([facility]) Primary hypertension Stage 3b chronic kidney disease ([facility]) 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 ([facility]) documented in this encounter Results * Prothrombin Time-INR (06/23/2024 10:31 AM EST) Prothrombin Time 11.3 10.9 - 12.4 SEC [facility] INTERNATIONAL NORM RATIO 1.0 0.9 - 1.1 [facility] Comment:INTERNATIONAL NORMAL IZED RATIO (INR) REFERENCE [...] 06/23/2024 10:31 AM EST us Rosalind Cardoso [facility] LAB BLOOD ORDERABLES Final Res ult [facility] [address] [place] [phone] * (ABNORMAL) Sed Rate by Modified Westergren (06/23/2024 10:31 AM EST) Erythrocyte Sedimentation Rate 38(H) 0 - 20 MM/HR [facility] Comment:Patients with polycy themia and many hemoglobin abnormalitiesmay have depressed sed rates whereas patients with anemiamay have elevated sed rates. Blood Venous blood specimen / Unknown 06/23/2024 10:31 AM EST 06/23/2024 10:31 AM EST us Rosalind Cardoso CUSTOM DECORATING CONSULTANT LAB BLOOD ORDERABLES Final Res ult [facility] [address] [place] [address] [phone] * (ABNORMAL) Comprehensive Metabolic Panel (06/23/2024 10:31 AM EST) Sodium 134(L) 135 - 145 mmol/L [facility] Potassium 4.1 3.3 - 5.1 mmol/L [facility] Chloride 97 96 - 108 mmol/L [facility] Carbon Dioxide 27 22 - 29 mmol/L [facility] Anion Gap 14 12 - 20 [facility] Urea Nitrogen (BUN) 45(H) 9 - 16 mg/dL [facility] Creatinine, Serum 1.91(H) 0.5 - 1.4 mg/dL [facility] Estimated Glomerular Filt Rate 27 [facility] Comment:Chronic Kidney Disea se: Estimated GFR < 60 mL/min/1.42x8Bvcpoj Kidney Disease: Estimated GFR < 15 mL/min/1.73m2 Glucose 287(H) 60 - 115 mg/dL [facility] Calcium 9.1 8.4 - 10.2 mg/dL [facility] Bilirubin, Total 0.3 0.0 - 1.0 mg/dL [facility] Aspartate Amino Transferase 19 5 - 31 U/L [facility] Alanine Aminotransferase 11 0 - 31 U/L [facility] Total Protein 7.4 6.5 - 8.0 g/dL [facility] Albumin Level 3.6 3.5 - 5.0 g/dL [facility] Alkaline Phosphatase 99 39 - 117 U/L [facility] Blood Venous blood specimen / Unknown 06/23/2024 10:31 AM EST 06/23/2024 10:31 AM EST us Rosalind Cardoso CUSTOM DECORATING CONSULTANT LAB BLOOD ORDERABLES Final Res ult [facility] [address] [place] [address] [phone] documented in this encounter Visit Diagnoses Diagnosis Type 2 diabetes mellitus with stage 3 chronic kidney disease, with long-term current use of insulin, unspecified whether stage 3a or 3b CKD ([facility]) Primary hypertension Unspecified essential hypertension Stage 3b chronic kidney disease ([facility]) 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
--- OUTSIDE RECORDS SUMMARY | 2025-02-26 11:05 | XMS_ITS | Clinical Summary ---
Author Organization [address] [place] [address] Address [address] [place] [address] Phone Care Team Providers Care Customs Appraiser Name Role Phone Physician, Pcp Unknown Primary [...] Diagnosed Date DM2 (diabetes mellitus, type 2) ([facility] V24, [facility] V28) 10/22/2022 Hx of BKA, left ([facility] V24, [facility] V28) 10/22 Hyperlipidemia 10/22/2022 Hypertension 10/22/2022 PAD (peripheral artery disease) ([facility] V24) Vitamin D deficiency 10/22/2022 Encounters Date Type Department Care Team Description 01/19/2025 10:45 AM EDT Office Visit [facility] [place] [address] [place] [address] [address] [place] [phone] Raheel Quijano DPM Dermatophytosis of nail (Primary Dx); Type II diabetes mellitus with peripheral circulatory disorder ([facility] V24, [facility] V28); Diabetic mononeuropathy simplex ([facility] V24, [facility] V28); Fissure in skin of right foot 01/06/2025 1:00 PM EDT Office Visit Vascular Surgery [facility] [address] [place] [address] Oralia Borden MD PAD (peripheral artery disease) ([facility] V24) (Primary Dx); Hx of BKA, left ([facility] V24, [facility] V28) from Last 3 Months Surgical History Surgery Date Site/Laterality Comments OTHER SURGICAL HISTORY 09/01/2022 Left PROCEDURE: [place] AMPUTATION LEG THROUGH TIBIA&FIBULA Social History Tobacco [...] PM EDT Office Visit [facility] [place] [address] [facility] [address] [place] [address] Raheel Quijano, DPM [address] [address] 01/12/2026 1:00 PM EDT Office Visit [facility] [place] [address] [place] [address] Oralia Borden MD [address] [facility] [address] [place] [address] Health Maintenance Due Date Last Done Comments [...] ID:[id number] Group ID:[id number] Type:Not on file Address: [facility] [address] [phone] Advance Directives Documents on File Type Date Recorded Patient Typesetting Machine Operator/Tender Expl anation Health Care Decision (hx) 09/04/2022 AD REINOSO DIRECTIVE Health Care Decision (hx) 09/04/2022 AD REINOSO DIRECTIVE Care Teams Customs Appraiser Relationship Specialty Start Date End Date Physician, Pcp Unknown PCP - General 07/27/24
--- OUTSIDE RECORDS SUMMARY | 2025-02-26 11:05 | XMS_ITS | Patient Health Record ---
Author [facility] Address [address] [facility] [place] [address] Care Team Providers Care Java Groovy Developer Name Role Phone Lesvia Sosa Unavailable [phone] Reason For Referral No Information Medications Medication [...] Oral; Duration: 90 Active [employer] Short Pen [place] 31G X 8 MM USE ONCE DAILY [...] Problem Arthropathy associated with a neurological disorder (57070844) Charcot's joint, left ankle and foot (M14.672) Active confirmed Problem Acquired hammer toe of right foot (4950572415638741 ) Hammer toe of right foot (M20.41) Active confirmed Problem Acquired hammer toe of left foot (5692818333620261 ) Hammer toe of left foot (M20.42) Active confirmed Problem Neuropathy (836223944) Neuropathy (G62.9) Active confirmed Problem Polyneuropathy due to type 2 diabetes mellitus (164401841) Type 2 diabetes mellitus with polyneuropathy (E11.42) Active confirmed Plan Of Treatment Pending Test Test Name Order Date X ray : Foot, left 3V 11/28/2021 X ray : Foot, right 3V 11/28/2021 Insurance Providers Payer Name Payer Address Payer Phone Subscriber Number Group Number Insured Name Patient Relationship to Insured Coverage Start Date Coverage End Date [facility] [employer] Claims [address] [place] [phone] [id number] Mitra Parish Self - patient is the insured Medical (General) History Medical History History ICD Code Anemia Arthritis Back,Hip,and Knee pain Cholesterol Cataracts Diabetic Headaches/Migraines Heart disease High blood pressure Kidney disease Neuropathy Psoriasis/eczema Measles Chicken pox Surgical History Surgery Date(Month/Year) Angeogram D+C 1987 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
--- OUTSIDE RECORDS SUMMARY | 2025-02-26 11:05 | XMS_ITS | Clinical Summary ---
Author Organization [facility] Address [address] [facility] [address] [place] [address] Phone Care Team Providers Care Tow Motor Driver Name Role Phone Rosalind Cardoso TAMY Primary Care Provider [phone] Allergies No known active allergies Medications aspirin [...] BKA performed by Dr. Borden 09/01/22 at [facility] -Indication: gangrene and ulcers of the [...] & Plan: -Optometry: NABOR November 2021 -Dental: [facility] -Pap: reports last 2019 and believes results were normal, referred to UroGYN -Colorectal CA screening: iFOBT neg 12/18/21, due December 2022 -Mammogram: BIRADS 3 on 01/16/22, due Jul 2022 -Outstanding vaccines: influenza, Tdap, Shingrix, PCV20, COVID CCA Lottery Clerk Osi: plan to schedule follow up appts the following specialists: [facility] UroGYN Generalized abdominal pain 06/20/2022 Overview [...] Visit [facility] [address] [place] [address] Barron Wetzel MD Stage 3b chronic kidney [...] Office Visit [facility] [address] [place] [address] Barron Wetzel MD [address] [phone] Health Maintenance Due Date Last Done Comments [...] patient's age to complete this topic [place] [address] ([id number]) [place] [address] ([id number]) Care Teams Tow Motor Driver Relationship Specialty Start Date End Date Rosalind Cardoso FNP [address] [place] [address] PCP - General 11/12/23
[2025-02-26 11:54] LABS: MANUAL DIFF FLAG NO
[2025-02-26 12:06] LABS: Hematocrit 37.8 % (37.0-47.0); Hemoglobin 11.3 g/dl (12.0-16.0); Imm Gran Abs Auto 0.03 X10*3/uL (0.00-0.03); Imm Gran Pct Auto 0.4 % (0.0-0.4); Lymphocytes Absolute Auto 2.3 X10*3/uL (1.2-4.9); Mean Corpuscular HGB Conc 29.9 g/dl (31.0-35.0); Mean Corpuscular Hemoglobin 18.6 pg (27.0-33.0); NRBC Abs Auto 0.000 X10*3/uL (0.0-0.012); NRBC Pct Auto 0.0 /100WBC (0.0-0.2); Platelet Count 323 X10*3/uL (160-400); Red Blood Count 6.06 X10*6/uL (4.20-5.50); White Blood Count 7.7 X10*3/uL (4.8-10.8)
[2025-02-26 12:12] LABS: INTERNATIONAL NORM RATIO 1.0 (0.9-1.1); Prothrombin Time 11.3 SEC (10.9-12.4)
[2025-02-26 12:15] LABS: Mean Corpuscular Volume 62.4 fL (80.0-98.0)
[2025-02-26 12:33] LABS: Anion Gap 14 (12-20); Blood Urea Nitrogen 56 mg/dL (9-16); Calcium 9.0 mg/dL (8.4-10.2); Carbon Dioxide 26 mmol/L (22-29); Chloride 102 mmol/L (96-108); Estimated Glomerular Filt Rate 27; Potassium 4.0 mmol/L (3.3-5.1); Sodium 138 mmol/L (135-145)
== END 2025-02-26 10:59 | disposition home or self-care (01) ==
LOC: HO.HHCL 10:58
PROVIDERS: PCP Registered Nurse; Referring Provider Internal Medicine Medical Oncology; Visit Provider Nurse Practitioner Family
DX: I25.10 Atherosclerotic heart disease of native coronary artery without angina pectoris (principal); I42.9 Cardiomyopathy, unspecified
CPT/HCPCS: 36415; 80048; 85025; 85610

== ENCOUNTER 2025-03-11 11:25 | Outpatient (REF) | payer OTHER, SELFPAY ==
[2025-03-11 11:59] LABS: MANUAL DIFF FLAG NO
[2025-03-11 12:08] LABS: Hematocrit 35.0 % (37.0-47.0); Hemoglobin 10.6 g/dl (12.0-16.0); Imm Gran Abs Auto 0.03 X10*3/uL (0.00-0.03); Imm Gran Pct Auto 0.3 % (0.0-0.4); Lymphocytes Absolute Auto 2.7 X10*3/uL (1.2-4.9); Mean Corpuscular HGB Conc 30.3 g/dl (31.0-35.0); Mean Corpuscular Hemoglobin 18.4 pg (27.0-33.0); NRBC Abs Auto 0.000 X10*3/uL (0.0-0.012); NRBC Pct Auto 0.0 /100WBC (0.0-0.2); Platelet Count 233 X10*3/uL (160-400); Red Blood Count 5.75 X10*6/uL (4.20-5.50); White Blood Count 8.7 X10*3/uL (4.8-10.8)
[2025-03-11 12:18] LABS: Mean Corpuscular Volume 60.9 fL (80.0-98.0)
--- OUTSIDE RECORDS SUMMARY | 2025-03-11 13:08 | XMS_ITS | Encounter Summary ---
Author Organization [employer] Address [address] [place] [address] 7t [place] [address] Care Team Providers Care Top Stop Attacher Name Role Phone Rosalind Cardoso Primary Care Provider [phone] Barron Wetzel MD Unavailable [phone] Madeline Yo Unavailable Reason for Visit * Reason Onset Date Comments Results 08/29/2023 Encounter Details Date Type Department Care Team (Late st Contact Info) Description 08/29/2023 Telephone [facility] MEDICINE [address] [place] [address] Rosalind Cardoso FNP [address] [place], [place] [phone] Results Social History Tobacco Use Types Packs/Day [...] done today 08/29/23. Please contact pt @ [phone] documented in this encounter Plan of Treatment Upcoming Encounters Date Type Department Care Team (Late st Contact Info) Description 05/03/2025 11:15 AM EDT Office Visit [facility] MED & PEDS [address] [place] [address] Rosalind Cardoso FNP [address] [place] [address] documented as of this encounter Visit Diagnoses Not on filedocumented in this encounter Additional Health Concerns Assessment Noted Time PHQ-9 Depression Total Score: 0 12/26/19 23 1:09 PM EDT documented as of this encounter Care Teams Top Stop Attacher Relationship Specialty Start Date End Date Rosalind Cardoso FNP [address] [place] [address] PCP - General Family Medicine 04/28/21 Barron Wetzel MD [address] [address] Nephrology 01/15/25 Madeline Yo [address] [place] [address] 3rd [place] [address] Cardiology 01/15/25 [employer] 01/05/25 documented as of this encounter
--- OUTSIDE RECORDS SUMMARY | 2025-03-11 13:08 | XMS_ITS | Encounter Summary ---
Author Organization [employer] Address [address] [place] [address] 7t [place] [address] Care Team Providers Care Manganese Heater Name Role Phone Rosalind Cardoso Primary Care Provider [phone] Barron Wetzel MD Unavailable Madeline Yo Unavailable Encounter Details Date Type Department Care Team (Late st Contact Info) Description 09/18/[address] [facility] MEDICINE [address] [place] [address] Rosalind Cardoso FNP [address] [place], [place] [phone] Social History Tobacco Use Types Packs/Day Years [...] encounter Miscellaneous Notes * Telephone Encounter - Bahmanvera Hutchinson - 09/18/2023 2:59 PM EDT Tc from pt stated she received a call for for televisit with pcp, story writer didn't see anything tasked. Please contact pt at [phone]. documented in this encounter Plan of Treatment Upcoming Encounters Date Type Department Care Team (Late st Contact Info) Description 05/03/2025 11:15 AM EDT Office Visit [facility] MED & PEDS [address] [place] [address] Rosalind Cardoso FNP [address] [place] [address] documented as of this encounter Visit Diagnoses Not on filedocumented in this encounter Additional Health Concerns Assessment Noted Time PHQ-9 Depression Total Score: 0 12/26/19 23 1:09 PM EDT documented as of this encounter Care Teams Manganese Heater Relationship Specialty Start Date End Date Rosalind Cardoso FNP [address] [place] [address] PCP - General Family Medicine 04/28/21 Barron Wetzel MD 100 [facility] 200 [place] [address] Nephrology 01/15/25 Madeline Yo [address] 3rd [place] [address] Cardiology 01/15/25 [employer] 01/05/25 documented as of this encounter
--- OUTSIDE RECORDS SUMMARY | 2025-03-11 13:08 | XMS_ITS | Encounter Summary ---
Author Organization [employer] Address [address] [place] [address] 7 [place] [address] Care Team Providers Care Foam Molder Name Role Phone Rosalind Cardoso Primary Care Provider [phone] Barron Wetzel MD Unavailable [phone] Madeline Yo Unavailable Encounter Details Date Type Department Care Team (Late st Contact Info) Description 10/04/2023 Orders Only [facility] MEDICINE [address] [place] [address] Rosalind Cardoso FNP [address] [place], [place] [phone] Type 2 diabetes mellitus with stage 3 [...] 11:15 AM EDT Office Visit [facility] MED & PEDS [address] [place] [address] Rosalind Cardoso, STAGECRAFT PROFESSOR [address] [place] [address] documented as of this encounter Procedures Procedure Name Priority Date/Time Associated Diagnosis Comments SED RATE BY MODIFIED WESTERGREN Routine 10/25/2023 1:09 PM EDT Type 2 diabetes mellitus with stage 3 chronic kidney disease, with long-term current use of insulin, unspecified whether stage 3a or 3b CKD (CMS/HCC) Myalgia PROTHROMBIN TIME-INR Routine 10/25/2023 1:09 PM EDT Type 2 diabetes mellitus with stage 3 chronic kidney disease, with long-term current use of insulin, unspecified whether stage 3a or 3b CKD (CMS/HCC) Myalgia documented in this encounter Results * (ABNORMAL) Sed Rate by Modified Westergren (10/25/2023 1:09 PM EDT) Erythrocyte Sedimentation Rate 46(H) 0 - 20 MM/HR [facility] Comment:Patients with polycy themia and many hemoglobin abnormalitiesmay have depressed sed rates whereas patients with anemiamay have elevated sed rates. Blood Venous blood specimen / Unknown 10/25/2023 1:09 PM EDT 10/25/2023 1:09 PM EDT Rosalind Cardoso STAGECRAFT PROFESSOR LAB BLOOD ORDERABLES Final Res ult Performing Organization Address [facility] Co de Phone Number [facility] [address] [place] [address] [phone] * Prothrombin Time-INR (10/25/2023 1:09 PM [...] EDT 10/25/2023 1:09 PM EDT Rosalind Cardoso STAGECRAFT PROFESSOR LAB BLOOD ORDERABLES Final Res ult Performing Organization Address [facility] Co de Phone Number [facility] [address] [place] [phone] documented in this encounter Visit Diagnoses Diagnosis Type 2 diabetes mellitus with stage 3 chronic kidney disease, with long-term current use of insulin, unspecified whether stage 3a or 3b CKD ([facility]/HCC) Myalgia Unspecified myalgia and myositis documented in this encounter Additional Health Concerns Assessment Noted Time PHQ-9 Depression Total Score: 0 12/26/19 23 1:09 PM EDT documented as of this encounter Care Teams Foam Molder Relationship Specialty Start Date End Date Rosalind Cardoso FNP [address] [place] [address] PCP - General Family Medicine 04/28/21 Barron Wetzel MD [address] [facility] 200 [place] [address] Nephrology 01/15/25 Madeline Yo [address] [place] [address] 3rd [place] [address] Cardiology 01/15/25 [employer] 01/05/25 documented as of this encounter
--- OUTSIDE RECORDS SUMMARY | 2025-03-11 13:08 | XMS_ITS | Encounter Summary ---
Author Organization [employer] Address [address] [place] [address] 7 [place] [address] Care Team Providers Care Records Supervisor Name Role Phone Rosalind Cardoso Primary Care Provider [phone] Barron Wetzel MD Unavailable [phone] Madeline Yo Unavailable Reason for Visit * Reason Onset Date Comments Referral Renewal 07/18/2023 Encounter Details Date Type Department Care Team (Late st Contact Info) Description 07/18/2023 Telephone [facility] MEDICINE [address] [place] [address] Rosalind Cardoso FNP [address] [place], [place] [phone] Referral Renewal Social History Tobacco Use Types [...] - 07/24/2023 2:27 PM EST Referral to [facility] for OT and physical therapy placed, thank you! * Telephone Encounter - Tiffanie Marquez RN - 07/19/2023 1:10 PM EST Returned call to pt regarding message below. Pt states she is requesting the same services she was getting to [facility] just in [facility] for PT and OT due to transportation. [facility] can offer pt transportation. Pt states she [...] following with Physical therapy and OT at [facility] (2x/week) for hx of left BKA. Please confirm that she is interested in switching locations, as well as confirm that still for same diagnosis. Thank you! 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
--- OUTSIDE RECORDS SUMMARY | 2025-03-11 13:08 | XMS_ITS | Encounter Summary ---
Author Organization [employer] Address [address] [place] [address] 7 [place] [address] Care Team Providers Care Hospital Carrier Name Role Phone Rosalind Cardoso Primary Care Provider [phone] Barron Wetzel MD Unavailable [phone] Madeline Yo Unavailable Encounter Details Date Type Department Care Team (Late st Contact Info) Description 08/14/2024 Orders Only [facility] CHC MED & PEDS 505 [place], [place] [phone] Rosalind Cardoso FNP [address] [place], [place] [phone] Type 2 diabetes mellitus with stage 3 [...] [facility] MED & PEDS 505 [place] [address] Rosalind Cardoso FNP 505 [place] [address] documented as of this encounter Visit Diagnoses [...] documented as of this encounter Care Teams Hospital Carrier Relationship Specialty Start Date End Date Rosalind Cardoso FNP [address] [place] [address] PCP - General Family Medicine 04/28/21 Barron Wetzel MD 100 [facility] BI [facility] 200 [place] [address] Nephrology 01/15/25 Madeline Yo [address] [place] [address] Drive 3rd [place] [address] Cardiology 01/15/25 [facility] [employer] 01/05/25 documented as of this encounter
--- OUTSIDE RECORDS SUMMARY | 2025-03-11 13:08 | XMS_ITS | Clinical Summary ---
Author Organization [address] [place] [address] Address 300 [place] [address] Phone Care Team Providers Care Pin Ticket Machine Operator Name Role Phone Physician, Pcp Unknown [...] Diagnosed Date DM2 (diabetes mellitus, type 2) ([facility] V24, [facility] V28) 10/22/2022 Hx of BKA, left ([facility] V24, [facility] V28) 10/22 Hyperlipidemia 10/22/2022 Hypertension 10/22/2022 PAD (peripheral artery disease) ([facility] V24) Vitamin D deficiency 10/22/2022 Encounters Date Type Department Care Team Description 01/19/2025 10:45 AM EDT Office Visit [facility] [place] [address] [place] [address] 250 [place] [phone] Raheel Quijano DPM Dermatophytosis of nail (Primary Dx); Type II diabetes mellitus with peripheral circulatory disorder ([facility] V24, [facility] V28); Diabetic mononeuropathy simplex ([facility] V24, [facility] V28); Fissure in skin of right foot 01/06/2025 1:00 PM EDT Office Visit Vascular Surgery [facility] [address] [place] [address] Oralia Borden MD PAD (peripheral artery disease) ([facility] V24) (Primary Dx); Hx of BKA, left ([facility] V24, [facility] V28) from Last 3 Months Surgical History Surgery Date Site/Laterality Comments OTHER SURGICAL HISTORY 09/01/2022 Left PROCEDURE: SD AMPUTATION LEG THROUGH TIBIA&FIBULA Social History Tobacco [...] PM EDT Office Visit [facility] - [place] [address] [facility] [address] [place] [phone] Raheel Quijano, DPM 175 [facility] 250 [place] [address] 01/12/2026 1:00 PM EDT Office Visit [facility] [place] [address] [place] [phone] Oralia Borden MD [address] [place] [phone] Health Maintenance Due Date Last Done Comments [...] Diabetes: Annual Urine Albumin-Creatinine Ratio (uACR) 08/21/2023 Depression Screening 07/08/2024 COVID-19 Vaccine ( season) 2025 Influenza Vaccine (#1) 2025 Diabetes: Blood Sugar [...] patient's age to complete this topic Insurance [facility] MEDICARE Member Subscriber Plan / Payer (Ef fective 2016-Present) Name:MITRA PARISH Relation to Subscriber:Self Name:Mitra Parish Payer ID:[id number] Group ID:[id number] Type:Not on file Address: [address] [place] [id number] Advance Directives Documents on File Type Date Recorded Patient Electrical Parts Reconditioner Expl anation Health Care Decision (hx) 09/04/2022 AD REINOSO DIRECTIVE Health Care Decision (hx) 09/04/2022 AD REINOSO DIRECTIVE Care Teams Pin Ticket Machine Operator Relationship Specialty Start Date End Date Physician, Pcp Unknown PCP - General 07/27/24
--- OUTSIDE RECORDS SUMMARY | 2025-03-11 13:08 | XMS_ITS | Encounter Summary ---
Author Organization [employer] Address [address] [place] [address] [address] [address] Care Team Providers Care Radarman Name Role Phone Rosalind Cardoso Primary Care Provider [phone] Barron Wetzel MD Unavailable [phone] Madeline Yo Unavailable Reason for Visit * Reason Onset Date Comments Request For Order(s) 07/30/2023 Encounter Details Date Type Department Care Team ([facility] st Contact Info) Description 07/30/2023 Telephone [facility] CHC MED & PEDS 505 [place], [place] [phone] Rosalind Cardoso FNP 505 [place], [place] [phone] Request For Order(s) Social History Tobacco Use [...] Sandoval - 07/30/2023 4:26 PM EST Tc ro martinez with [facility] requesting updated PT orders due to pt complaining of hip and back pain. Will also need OT orders for pain in the hands. Please fax to [phone] (attention: michelle) documented in this encounter Plan of Treatment Upcoming Encounters Date Type Department Care Team (Late st Contact Info) Description 05/03/2025 11:15 AM EDT Office Visit [facility] CHC MED & PEDS 505 [place], [place] [phone] Rosalind Cardoso FNP 505 [place] [address] documented as of this encounter Visit Diagnoses Diagnosis Pain in both hands- Primary Back pain, unspecified back location, unspecified back pain laterality, unspecified chronicity Hip pain, unspecified laterality documented in this encounter Additional Health Concerns Assessment Noted Time PHQ-9 Depression Total Score: 0 12/26/19 23 1:09 PM EDT documented as of this encounter Care Teams Radarman Relationship Specialty Start Date End Date Rosalind Cardoso FNP 230 [place] [address] PCP - General Family Medicine 04/28/21 Barron Wetzel MD 100 [facility] 200 [place] [address] Nephrology 01/15/25 Madeline Yo [address] [place] [address] 3rd [place] [address] Cardiology 01/15/25 [employer] 01/05/25 documented as of this encounter
--- OUTSIDE RECORDS SUMMARY | 2025-03-11 13:08 | XMS_ITS | Encounter Summary ---
Author Organization [employer] Address [address] [place] [address] 7 [place] [address] Care Team Providers Care Blemish Remover Name Role Phone Rosalind Cardoso Primary Care Provider [phone] Barron Wetzel MD Unavailable [phone] Madeline Yo Unavailable Encounter Details Date Type Department Care Team (Late st Contact Info) Description 09/20/2023 Orders Only [facility] MEDICINE 230 [place] [address] Rosalind Cardoso FNP [address] [place], [place] [phone] Type 2 diabetes mellitus with stage 3 [...] Description 05/03/2025 11:15 AM EDT Office Visit [facility] MED & PEDS 505 [place] [address] Rosalind Cardoso, ANIMAL NUTRITIONIST 505 [place] [address] documented as of this encounter Procedures Procedure [...] unspecified whether stage 3a or 3b CKD ([facility]) Myalgia MAGNESIUM Routine 09/27/2023 9:56 AM EDT Type 2 diabetes mellitus with stage 3 chronic kidney disease, with long-term current use of insulin, unspecified whether stage 3a or 3b CKD ([facility]) Myalgia COMPREHENSIVE METABOLIC PANEL Routine 09/27/2023 9:56 AM EDT Type 2 diabetes mellitus with stage 3 chronic kidney disease, with long-term current use of insulin, unspecified whether stage 3a or 3b CKD ([facility]) Myalgia documented in this encounter Results * (ABNORMAL) Sed Rate by Modified Westergren (09/27/2023 9:56 AM EDT) Erythrocyte Sedimentation Rate 42(H) 0 - 20 MM/HR [facility] Comment:Patients with polycy themia and many hemoglobin abnormalitiesmay have depressed sed rates whereas patients with anemiamay have elevated sed rates. Blood Venous blood specimen / Unknown 09/27/2023 9:56 AM EDT 09/27/2023 9:58 AM EDT us Rosalind Cardoso [facility] LAB BLOOD ORDERABLES Final Res ult [facility] [address] [place] [address] [phone] * (ABNORMAL) C-reactive Protein (09/27/2023 9:56 AM EDT) C Reactive Protein 0.63(H) < or = 0.50 mg/dL [facility] Blood Venous blood specimen / Unknown 09/27/2023 9:56 AM EDT 09/27/2023 9:58 AM EDT us Rosalind Bruceen [facility] LAB BLOOD ORDERABLES Final Res ult Performing Organization Address [facility]/ZIP Co de Phone Number [facility] [address] [place] [phone] * Magnesium (09/27/2023 9:56 AM EDT) Magnesium 1.7 1.6 - 2.6 mg/dL [facility] Blood Venous blood specimen / Unknown 09/27/2023 9:56 AM EDT 09/27/2023 9:58 AM EDT Rosalind Cardoso [facility] LAB BLOOD ORDERABLES Final Res ult Performing Organization Address [facility] de Phone Number [facility] [address] [place] [phone] * Prothrombin Time-INR (09/27/2023 9:56 AM EDT) Prothrombin Time 11.5 11.1 - 13.3 SEC [facility] INTERNATIONAL NORM RATIO 0.9 0.9 - 1.1 [facility] Comment:INTERNATIONAL NORMAL IZED RATIO [...] EDT 09/27/2023 9:58 AM EDT Rosalind Cardoso [facility] LAB BLOOD ORDERABLES Final Res ult Performing Organization Address [facility] Co de Phone Number [facility] [address] [place] [phone] * (ABNORMAL) Comprehensive Metabolic Panel (09/27/2023 9:56 AM EDT) Sodium 140 135 - 145 mmol/L [facility] Potassium 3.8 3.3 - 5.1 mmol/L [facility] Chloride 105 96 - 108 mmol/L [facility] Carbon Dioxide 27 22 - 29 mmol/L [facility] Anion Gap 12 12 - 20 [facility] Urea Nitrogen (BUN) 36(H) 9 - 16 mg/dL [facility] Creatinine, Serum 1.55(H) 0.5 - 1.4 mg/dL [facility] Estimated Glomerular Filt Rate 34 [facility] Comment:NOTE: For -Am erican individuals, multiply the result by 1.210.Chronic Kidney Disease: Estimated GFR < 60 mL/min/1.32v1Nogydl Kidney Disease: Estimated GFR < 15 mL/min/1.73m2 Glucose 191(H) 60 - 115 mg/dL [facility] Calcium 9.2 8.4 - 10.2 mg/dL [facility] Bilirubin, Total 0.3 0.0 - 1.0 mg/dL [facility] Aspartate Amino Transferase 22 5 - 31 U/L [facility] Alanine Aminotransferase 35(H) 0 - 31 U/L [facility] Total Protein 6.3(L) 6.5 - 8.0 g/dL [facility] Albumin Level 3.2(L) 3.5 - 5.0 g/dL [facility] Alkaline Phosphatase 125(H) 39 - 117 U/L [facility] Blood Venous blood specimen / Unknown 09/27/2023 9:56 AM EDT 09/27/2023 9:58 AM EDT us Rosalind Cardoso ANIMAL NUTRITIONIST LAB BLOOD ORDERABLES Final Res ult [facility] [address] [place] [phone] * (ABNORMAL) CBC auto differential (09/27/2023 9:56 AM EDT) White Blood Count 8.6 4.8 - 10.8 X10*3/uL [facility] Red Blood Count 4.52 4.20 - 5.50 X10*6/uL [facility] Hemoglobin 8.8(L) 12.0 - 16.0 g/dl [facility] Hematocrit 29.9(L) 37.0 - 47.0 % [facility] Mean Corpuscular Volume 66.2(L) 80.0 - 98.0 fL [facility] Mean Corpuscular Hemoglobin 19.5(L) 27.0 - 33.0 pg [facility] Mean Corpuscular HGB Conc 29.4(L) 31.0 - 35.0 g/dl [facility] Red Cell Distribution Width 18.4(H) 11.0 - 16.0 % [facility] Platelet Count 370 160 - 400 X10*3/uL [facility] Mean Platelet Volume 10.5 9.4 - 12.3 fL [facility] Neutrophils Percent Auto 66.9 45 - 73 % [facility] Imm Gran Pct Auto 0.6(H) 0.0 - 0.4 % [facility] Lymphocytes Percent Auto 21.8 20 - 40 % [facility] Monocytes Percent Auto 7.0 2 - 11 % [facility] Eosinophils Percent Auto 3.0 0 - 4 % [facility] Basophils Percent Auto 0.7 0 - 2 % [facility] NRBC Pct Auto 0.0 0.0 - 0.2 /100WBC [facility] Neutrophils Absolute Auto 5.7 2.0 - 8.3 x10*3/uL [facility] Imm Gran Abs Auto 0.05(H) 0.00 - 0.03 X10*3/uL [facility] Lymphocytes Absolute Auto 1.9 1.2 - 4.9 X10*3/uL [facility] Monocytes Absolute Auto 0.6 0.1 - 1.2 X10*3/uL [facility] Eosinophils Absolute Auto 0.3 0.0 - 0.4 X10*3/uL [facility] Basophils Absolute Auto 0.1 0.0 - 0.2 X10*3/uL [facility] NRBC Abs Auto 0.000 0.0 - 0.012 X10*3/uL [facility] Blood Venous blood specimen / Unknown 09/27/2023 9:56 AM EDT 09/27/2023 9:58 AM EDT us Rosalind MORELOS LAB BLOOD ORDERABLES Final Res ult [facility] [address] [place] [phone] documented in this encounter Visit Diagnoses [...] documented as of this encounter Care Teams Blemish Remover Relationship Specialty Start Date End Date Rosalind Cardoso FNP [address] [place] [address] PCP - General Family Medicine 04/28/21 Barron Wetzel MD 100 [facility] 200 [place] [address] Nephrology 01/15/25 Madeline Yo [address] [facility] [address] 3rd [place] [address] Cardiology 01/15/25 [employer] 01/05/25 documented as of this encounter
--- OUTSIDE RECORDS SUMMARY | 2025-03-11 13:08 | XMS_ITS | Clinical Summary ---
Author Organization [facility] Address [address] [facility] 204 [place] [address] Phone Care Team Providers Care Polysomnographic Technologist Name Role Phone Rosalind Cardoso TAMY Primary Care Provider [phone] Allergies No known active allergies Medications aspirin [...] BKA performed by Dr. Borden 09/01/22 at [facility] -Indication: gangrene and ulcers of the [...] vaccines: influenza, Tdap, Shingrix, PCV20, COVID [employer] Osi: plan to schedule follow up appts the following specialists: [facility] Nephrology [facility] Endo [facility] Cards [facility] UroGYN Generalized abdominal pain 06/20/2022 Overview [...] Visit [facility] [address] [place] [phone] Barron Wetzel MD Stage 3b chronic kidney [...] Office Visit [facility] [address] [place] [address] Barron Wetzel MD [address] [phone] Health Maintenance Due Date Last Done Comments [...] patient's age to complete this topic [place] [address] ([id number]) [place] [address] ([id number]) Care Teams Polysomnographic Technologist Relationship Specialty Start Date End Date Rosalind Cardoso FNP [address] [place] [address] PCP - General 11/12/23
--- OUTSIDE RECORDS SUMMARY | 2025-03-11 13:08 | XMS_ITS | Encounter Summary ---
Author Organization [employer] Address [address] [place] [address] 7 [place] [address] Care Team Providers Care Direct Support Specialist Name Role Phone Rosalind Cardoso Primary Care Provider [phone] Barron Wetzel MD Unavailable [phone] Madeline Yo Unavailable Encounter Details Date Type Department Care Team (Late st Contact Info) Description 06/19/2024 Orders Only [facility] CHC MED & PEDS [address] [place], [place] [phone] Rosalind Cardoso FNP 505 [place], [place] [phone] Type 2 diabetes mellitus with stage 3 [...] [facility] MED & PEDS [address] [place] [address] Rosalind Cardoso, TAMY 505 [place] [address] documented as of this encounter Procedures Procedure [...] unspecified whether stage 3a or 3b CKD ([facility]) Primary hypertension Stage 3b chronic kidney disease ([facility]) 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 ([facility]) documented in this encounter Results * Prothrombin Time-INR (06/23/2024 10:31 AM EST) Prothrombin Time 11.3 10.9 - 12.4 SEC [facility] [...] 06/23/2024 10:31 AM EST us Rosalind Cardoso [facility] LAB BLOOD ORDERABLES Final Res ult [facility] [address] [place] [phone] * (ABNORMAL) Sed Rate by Modified Westergren (06/23/2024 10:31 AM EST) Erythrocyte Sedimentation Rate 38(H) 0 - 20 MM/HR [facility] Comment:Patients with polycy themia and many hemoglobin abnormalitiesmay have depressed sed rates whereas patients with anemiamay have elevated sed rates. Blood Venous blood specimen / Unknown 06/23/2024 10:31 AM EST 06/23/2024 10:31 AM EST us Rosalind Cardoso [facility] LAB BLOOD ORDERABLES Final Res ult [facility] [address] [place] [address] [phone] * (ABNORMAL) Comprehensive Metabolic Panel (06/23/2024 10:31 AM EST) Sodium 134(L) 135 - 145 mmol/L [facility] Potassium 4.1 3.3 - 5.1 mmol/L [facility] Chloride 97 96 - 108 mmol/L [facility] Carbon Dioxide 27 22 - 29 mmol/L [facility] Anion Gap 14 12 - 20 [facility] Urea Nitrogen (BUN) 45(H) 9 - 16 mg/dL [facility] Creatinine, Serum 1.91(H) 0.5 - 1.4 mg/dL [facility] Estimated Glomerular Filt Rate 27 [facility] Comment:Chronic Kidney Disea se: Estimated GFR < 60 mL/min/1.52e5Ugnpjv Kidney Disease: Estimated GFR < 15 mL/min/1.73m2 Glucose 287(H) 60 - 115 mg/dL [facility] Calcium 9.1 8.4 - 10.2 mg/dL [facility] Bilirubin, Total 0.3 0.0 - 1.0 mg/dL [facility] Aspartate Amino Transferase 19 5 - 31 U/L [facility] Alanine Aminotransferase 11 0 - 31 U/L [facility] Total Protein 7.4 6.5 - 8.0 g/dL [facility] Albumin Level 3.6 3.5 - 5.0 g/dL [facility] Alkaline Phosphatase 99 39 - 117 U/L [facility] Blood Venous blood specimen / Unknown 06/23/2024 10:31 AM EST 06/23/2024 10:31 AM EST us Rosalind Cardoso [facility] LAB BLOOD ORDERABLES Final Res ult [facility] [address] [place] [address] [phone] documented in this encounter Visit Diagnoses Diagnosis Type 2 diabetes mellitus with stage 3 chronic kidney disease, with long-term current use of insulin, unspecified whether stage 3a or 3b CKD ([facility]) Primary hypertension Unspecified essential hypertension Stage 3b chronic kidney disease ([facility]) 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 ([facility]) documented in this encounter Additional Health Concerns Assessment Noted Time PHQ-9 Depression Total Score: 0 12/26/19 23 1:09 PM EDT documented as of this encounter Care Teams Direct Support Specialist Relationship Specialty Start Date End Date Rosalind Cardoso FNP [address] [place] [address] PCP - General Family Medicine 04/28/21 Barron Wetzel MD 100 [facility] 200 [place] [address] Nephrology 01/15/25 Madeline Yo [address] [place] [address] Drive 3rd [place] [address] Cardiology 01/15/25 [email or web address] 01/05/25 documented as of this encounter
--- OUTSIDE RECORDS SUMMARY | 2025-03-11 13:08 | XMS_ITS | Encounter Summary ---
Author Organization [employer] Address [address] [place] [address] 7 [place] [address] Care Team Providers Care Store Consultant Name Role Phone Rosalind Cardoso Primary Care Provider [phone] Barron Wetzel MD Unavailable [phone] Madeline Yo Unavailable Encounter Details Date Type Department Care Team (Late st Contact Info) Description 07/03/2024 Orders Only [facility] MED & PEDS [address] [place], [place] [phone] Rosalind Cardoso FNP 505 [place], [place] [phone] Type 2 diabetes mellitus with stage 3 [...] 11:15 AM EDT Office Visit [facility] MED & PEDS [address] [place] [address] Rosalind Cardoso, TAMY 505 [place] [address] documented as of this encounter Procedures Procedure [...] Prothrombin Time 10.7(L) 10.9 - 12.4 SEC [facility] INTERNATIONAL NORM RATIO 0.9 0.9 - 1.1 [facility] Comment:INTERNATIONAL NORMAL IZED RATIO (INR) [...] EST 07/07/2024 10:24 AM EST Rosalind Cardoso PROOF OPERATOR LAB BLOOD ORDERABLES Final Res ult Performing Organization Address City/[facility]/ZIP Co de Phone Number [facility] [address] [place] [phone] * (ABNORMAL) C-reactive Protein (07/07/2024 10:24 AM EST) C Reactive Protein 1.00(H) < or = 0.50 mg/dL [facility] Blood Venous blood specimen / Unknown 07/07/2024 10:24 AM EST 07/07/2024 10:24 AM EST Rosalind Cardoso PROOF OPERATOR LAB BLOOD ORDERABLES Final Res ult Performing Organization Address [facility] Co de Phone Number [facility] [address] [place] [phone] * (ABNORMAL) Sed Rate by Modified Westergren (07/07/2024 10:24 AM EST) Erythrocyte Sedimentation Rate 34(H) 0 - 20 MM/HR [facility] Comment:Patients with polycy themia and many hemoglobin abnormalitiesmay have depressed sed rates whereas patients with anemiamay have elevated sed rates. Blood Venous blood specimen / Unknown 07/07/2024 10:24 AM EST 07/07/2024 10:24 AM EST Rosalind Cardoso PROOF OPERATOR LAB BLOOD ORDERABLES Final Res ult Performing Organization Address City/[facility]/ZIP Co de Phone Number [facility] [address] [place] [address] [phone] * Magnesium (07/07/2024 10:24 AM EST) Magnesium 1.8 1.6 - 2.6 mg/dL [facility] Blood Venous blood specimen / Unknown 07/07/2024 10:24 AM EST 07/07/2024 10:24 AM EST us Rosalind Cardoso PROOF OPERATOR LAB BLOOD ORDERABLES Final Res ult [facility] [address] [place] [address] [phone] * (ABNORMAL) Comprehensive Metabolic Panel (07/07/2024 10:24 AM EST) Sodium 135 135 - 145 mmol/L [facility] Potassium 3.7 3.3 - 5.1 mmol/L [facility] Chloride 102 96 - 108 mmol/L [facility] Carbon Dioxide 25 22 - 29 mmol/L [facility] Anion Gap 12 12 - 20 [facility] Urea Nitrogen (BUN) 47(H) 9 - 16 mg/dL [facility] Creatinine, Serum 1.54(H) 0.5 - 1.4 mg/dL [facility] Estimated Glomerular Filt Rate 34 [facility] Comment:Chronic Kidney Disea se: Estimated GFR < 60 mL/min/[id number] Kidney Disease: Estimated GFR < 15 mL/min/1.73m2 Glucose 400(HH) 60 - 115 mg/dL [facility] Comment:Critical value for G RADHA: Results called to and read backby: KAYLEE Gallegos Person calling: OLESYA Date: 07/07/24 Time:1102 Calcium 9.6 8.4 - 10.2 mg/dL [facility] Bilirubin, Total 0.2 0.0 - 1.0 mg/dL [facility] Aspartate Amino Transferase 17 5 - 31 U/L [facility] Alanine Aminotransferase 9 0 - 31 U/L [facility] Total Protein 7.3 6.5 - 8.0 g/dL [facility] Albumin Level 3.5 3.5 - 5.0 g/dL [facility] Alkaline Phosphatase 109 39 - 117 U/L [facility] Blood Venous blood specimen / Unknown 07/07/2024 10:24 AM EST 07/07/2024 10:24 AM EST us Rosalind MORELOS LAB BLOOD ORDERABLES Final Res ult [facility] [address] [place] [address] [phone] documented in this encounter Visit Diagnoses Diagnosis Type 2 diabetes mellitus with stage 3 chronic kidney disease, with long-term current use of insulin, unspecified whether stage 3a or 3b CKD ([facility]/HCC) Primary hypertension Unspecified essential hypertension Stage 3b chronic kidney disease ([facility]/HCC) 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 ([facility]) documented in this encounter Additional Health Concerns Assessment Noted Time PHQ-9 Depression Total Score: 0 12/26/19 23 1:09 PM EDT documented as of this encounter Care Teams Store Consultant Relationship Specialty Start Date End Date Rosalind Cardoso FNP [address] [place] [address] PCP - General Family Medicine 04/28/21 Barron Wetzel MD 100 [facility] 200 [place] [address] Nephrology 01/15/25 Madeline Yo [address] [place] [address] 3rd [place] [address] Cardiology 01/15/25 [employer] 01/05/25 documented as of this encounter
--- OUTSIDE RECORDS SUMMARY | 2025-03-11 13:08 | XMS_ITS | Encounter Summary ---
Author Organization [employer] Address [address] [place] [address] 7 [place] [address] Care Team Providers Care School Vocational Educator Name Role Phone Rosalind Cardoso Primary Care Provider [phone] Barron Wetzel MD Unavailable [phone] Madeline Yo Unavailable Encounter Details Date Type Department Care Team (Late st Contact Info) Description 08/21/2024 Orders Only [facility] MEDICINE [address] [place] [address] Rosalind Cardoso FNP [address] [place], [place] [phone] Type 2 diabetes mellitus with stage 3 [...] the past 12 months, has t he [employer], gas, oil or water [employer] threatened to shut off services in your [...] Description 05/03/2025 11:15 AM EDT Office Visit [facility] MED & PEDS 505 [place] [address] Rosalind Cardoso FNP 505 [place] [address] documented as of this encounter Visit Diagnoses Diagnosis Type 2 diabetes mellitus with stage 3 chronic kidney disease, with long-term current use of insulin, unspecified whether stage 3a or 3b CKD ([facility]/HCC) Myalgia Unspecified myalgia and myositis documented in this encounter Additional Health Concerns Assessment Noted Time PHQ-9 Depression Total Score: 6 08/03/19 25 9:07 AM EST documented as of this encounter Care Teams School Vocational Educator Relationship Specialty Start Date End Date Rosalind Cardoso FNP [address] [place] [address] PCP - General Family Medicine 04/28/21 Barron Wetzel MD 100 [facility] 200 [place] [address] Nephrology 01/15/25 Madeline Yo [address] [place] [address] 3rd [place] [address] Cardiology 01/15/25 [employer] 01/05/25 documented as of this encounter
--- OUTSIDE RECORDS SUMMARY | 2025-03-11 13:08 | XMS_ITS | Encounter Summary ---
Author Organization [employer] Address [address] [place] [address] 7 [place] [address] Care Team Providers Care Tow Motor Driver Name Role Phone Rosalind Cardoso Primary Care Provider [phone] Barron Wetzel MD Unavailable [phone] Madeline Yo Unavailable Reason for Visit * Reason Onset Date Comments Results 08/06/2023 Encounter Details Date Type Department Care Team ([facility] st Contact Info) Description 08/06/2023 Telephone [facility] MED & PEDS 505 [place], [place] [phone] Rosalind Cardoso FNP 505 [place], [place] [phone] Results Social History Tobacco Use Types Packs/Day [...] results: labs Date when done: 08/06 Facility: [facility] Please contact pt at [phone] documented in this encounter Plan of Treatment Upcoming Encounters Date Type Department Care Team (Late st Contact Info) Description 05/03/2025 11:15 AM EDT Office Visit [facility] MED & PEDS [address] [place] [address] Rosalind Cardoso FNP 505 [place] [address] documented as of this encounter Visit Diagnoses Not on filedocumented in this encounter Additional Health Concerns Assessment Noted Time PHQ-9 Depression Total Score: 0 12/26/19 23 1:09 PM EDT documented as of this encounter Care Teams Tow Motor Driver Relationship Specialty Start Date End Date Rosalind Cardoso FNP [address] [place] [address] PCP - General Family Medicine 04/28/21 Barron Wetzel MD 100 [facility] 200 [place] [address] Nephrology 01/15/25 Madeline Yo [address] [place] [address] 3rd [place] [address] Cardiology 01/15/25 [employer] 01/05/25 documented as of this encounter
--- OUTSIDE RECORDS SUMMARY | 2025-03-11 13:08 | XMS_ITS | Encounter Summary ---
Author Organization [employer] Address [address] [place] [address] 7 [place] [address] Care Team Providers Care Atomizer Assembler Name Role Phone Rosalind Cardoso Primary Care Provider [phone] Barron Wetzel MD Unavailable [phone] Madeline Yo Unavailable Encounter Details Date Type Department Care Team (Late st Contact Info) Description 08/07/2024 Orders Only [facility] MEDICINE 230 [place] [address] Rosalind Cardoso FNP [address] [place], [place] [phone] Type 2 diabetes mellitus with stage 3 [...] the past 12 months, has t he [employer], gas, oil or water [employer] threatened to shut off services in your [...] 11:15 AM EDT Office Visit [facility] MED & PEDS 505 [place] [address] Rosalind Cardoso FNP 505 [place] [address] documented as of this encounter Procedures Procedure Name Priority Date/Time Associated Diagnosis Comments PROTHROMBIN TIME-INR Routine 10/02/2024 3:12 PM EDT Type 2 diabetes mellitus with stage 3 chronic kidney disease, with long-term current use of insulin, unspecified whether stage 3a or 3b CKD ([facility]) Myalgia documented in this encounter Results * (ABNORMAL) Prothrombin Time-INR (10/02/2024 3:12 PM EDT) Prothrombin Time 10.5(L) 10.9 - 12.4 SEC [facility] INTERNATIONAL NORM RATIO 0.9 0.9 - 1.1 [facility] Comment:INTERNATIONAL NORMAL IZED RATIO (INR) [...] MORELOS LAB BLOOD ORDERABLES Final Res ult [facility] [address] [place] [phone] documented in this encounter Visit Diagnoses [...] documented as of this encounter Care Teams Atomizer Assembler Relationship Specialty Start Date End Date Rosalind Cardoso FNP 230 [place] [address] PCP - General Family Medicine 04/28/21 Barron Wetzel MD 100 [facility] 200 [place] [address] Nephrology 01/15/25 Madeline Yo 11 [facility] 3rd [place] [address] Cardiology 01/15/25 [employer] 01/05/25 documented as of this encounter
--- OUTSIDE RECORDS SUMMARY | 2025-03-11 13:08 | XMS_ITS | Encounter Summary ---
Author Organization [employer] Address [address] [place] [address] 7t [place] [address] Care Team Providers Care Spreader Operator Automatic Name Role Phone TeoRosalind bishop TAMY Primary Care Provider [phone] Barron Wetzel MD Unavailable [phone] Srinath, Madeline Unavailable Encounter Details Date Type Department Care Team ([facility] Contact Info) Description 03/11/2025 Orders Only GENERIC EXTERNAL DATA DEPARTMENT Provider, [...] Upcoming Encounters Date Type Department Care Team ([facility] st Contact Info) Description 05/03/2025 11:15 AM EDT Office Visit [facility] MED & PEDS 505 [place], [place] [phone] Rosalind Cardoso, RN CAMP 505 [place], [place] [phone] documented as of this encounter Procedures Procedure Name Priority Date/Time Associated Diagnosis Comments CBC WITH AUTO DIFFERENTIAL Routine 03/11/2025 11:58 AM EDT documented in this encounter Results * (ABNORMAL) CBC auto differential (03/11/2025 11:58 AM EDT) White Blood Count 8.7 4.8 - 10.8 X10*3/uL [facility] Red Blood Count 5.75(H) 4.20 - 5.50 X10*6/uL [facility] Hemoglobin 10.6(L) 12.0 - 16.0 g/dl [facility] Hematocrit 35.0(L) 37.0 - 47.0 % [facility] Mean Corpuscular Volume 60.9(L) 80.0 - 98.0 fL [facility] Mean Corpuscular Hemoglobin 18.4(L) 27.0 - 33.0 pg [facility] Mean Corpuscular HGB Conc 30.3(L) 31.0 - 35.0 g/dl [facility] Red Cell Distribution Width 17.8(H) 11.0 - 16.0 % [facility] Platelet Count 233 160 - 400 X10*3/uL [facility] Mean Platelet Volume TNP 9.4 - 12.3 fL [facility] Neutrophils Percent Auto 58.7 45 - 73 % [facility] Imm Gran Pct Auto 0.3 0.0 - 0.4 % [facility] Lymphocytes Percent Auto 31.0 20 - 40 % [facility] Monocytes Percent Auto 6.7 2 - 11 % [facility] Eosinophils Percent Auto 3.0 0 - 4 % [facility] Basophils Percent Auto 0.3 0 - 2 % [facility] NRBC Pct Auto 0.0 0.0 - 0.2 /100WBC [facility] Neutrophils Absolute Auto 5.1 2.0 - 8.3 x10*3/uL [facility] Imm Gran Abs Auto 0.03 0.00 - 0.03 X10*3/uL [facility] Lymphocytes Absolute Auto 2.7 1.2 - 4.9 X10*3/uL [facility] Monocytes Absolute Auto 0.6 0.1 - 1.2 X10*3/uL [facility] Eosinophils Absolute Auto 0.3 0.0 - 0.4 X10*3/uL [facility] Basophils Absolute Auto 0.0 0.0 - 0.2 X10*3/uL [facility] NRBC Abs Auto 0.000 0.0 - 0.012 X10*3/uL [facility] 03/11/2025 11:5 8 AM EDT 03/11/2025 11:58 AM EDT us Generic External Data Provider LAB BLOOD ORDERAB LES Final Result [facility] [address] [place] [address] [phone] documented in this encounter Visit Diagnoses Not on filedocumented in this encounter Additional Health Concerns Assessment Noted Time PHQ-9 Depression Total Score: 6 08/03/19 25 9:07 AM EST documented as of this encounter Care Teams Spreader Operator Automatic Relationship Specialty Start Date End Date Rosalind Cardoso FNP 230 [place] [address] PCP - General Family Medicine 04/28/21 Barron Wetzel MD 100 [facility] 200 [place] [address] Nephrology 01/15/25 Madeline Yo [address] [place] [address] 3rd [place] [address] Cardiology 01/15/25 [employer] 01/05/25 documented as of this encounter
--- OUTSIDE RECORDS SUMMARY | 2025-03-11 13:08 | XMS_ITS | Encounter Summary ---
Author Organization [employer] Address [address] [place] [address] 7 [place] [address] Care Team Providers Care Gas Plant Worker Name Role Phone Rosalind Cardoso Primary Care Provider [phone] Barron Wetzel MD Unavailable [phone] Madeline Yo Unavailable Encounter Details Date Type Department Care Team (Late st Contact Info) Description 08/28/2024 Orders Only [facility] MED & PEDS [address] [place], [place] [phone] Rosalind Cardoso FNP [address] [place], [place] [phone] Type 2 diabetes mellitus with stage 3 [...] Description 05/03/2025 11:15 AM EDT Office Visit [facility] MED & PEDS 505 [place] [address] Rosalind Cardoso FNP [address] [place] [address] documented as of this encounter Visit Diagnoses [...] as of this encounter Care Teams Gas Plant Worker Relationship Specialty Start Date End Date Rosalind Cardoso FNP [address] [place] [address] PCP - General Family Medicine 04/28/21 Barron Wetzel MD 100 [facility] BI [facility] 200 [place] [address] Nephrology 01/15/25 Madeline Yo [address] [place] [address] Drive 3rd [place] [address] Cardiology 01/15/25 [employer] 01/05/25 documented as of this encounter
--- OUTSIDE RECORDS SUMMARY | 2025-03-11 13:08 | XMS_ITS | Patient Health Record ---
Demographics Address [address] [place] [address] Email Address Preferred Language en Marital Status Unknown Episcopal Affiliation Unknown Race White Ethnic Group Not or Lati no Author Organization [facility] Address [address] [place] [address] Support Name Relationship Address Phone Yessenia Parish Emergency Contact [address] [place] [address] TAODONNA Guarantor Unknown [phone] Care Team Providers Care Spanish Linguist Name Role Phone Arianna Whitmoer Primary Care Provider Nate Florez [phone] Reason For Referral No Information Medications Medication [...] Problem Status W/U Status Risk Notes Problem 752495306 Encounter for screening for malignant neoplasm of colon (Z12.11) Active confirmed Problem 426569226 Irritable bowel syndrome with diarrhea (K58.0) Active confirmed Problem [id number] Calculus of gallbladder without cholecystitis without obstruction (K80.20) Active confirmed Problem Screening for malignant neoplasm of rectum (636752601) Encounter for screening for malignant neoplasm of rectum (Z12.12) Active confirmed Problem [id number] Microcytic anemi a (D50.9) Active confirmed Plan [...] OF [place] [address] [place] [address] [phone] [id number] DONNA PARISH Self - patient is the insured MEDICAID OF [facility] [address] [place] [address] [id number] DONNA PARISH Self - patient is the insured Medical (General) History Medical History History ICD Code NIDDM Hypertension Denies TX,CVA,Lung disease Mild renal insufficiency Urinary incontinence She reports fatty liver--see n in [facility]--no liver biopsy was done--however, she had a normal liver profile in November of 2015, and had a normal liver ultrasound and MRI as well IBS--seen by GI MD in [facility] Gallstones Microcytic anemia Surgical History Surgery Date(Month/Year) Exploratory laparotomy 1988 D&C 1997
--- OUTSIDE RECORDS SUMMARY | 2025-03-11 13:08 | XMS_ITS | Encounter Summary ---
Author Organization [employer] Address [address] [place] [address] 7 [place] [address] Care Team Providers Care Manager Valuation Name Role Phone Rosalind Cardoso Primary Care Provider [phone] Barron Wetzel MD Unavailable [phone] Madeline Yo Unavailable Encounter Details Date Type Department Care Team (Late st Contact Info) Description 09/11/2024 Orders Only [facility] MED & PEDS [address] [place], [place] [phone] Rosalind Cardoso FNP 505 [place], [place] [phone] Type 2 diabetes mellitus with stage 3 [...] Description 05/03/2025 11:15 AM EDT Office Visit [facility] MED & PEDS [address] [place] [address] Rosalind Cardoso, TAMY 505 [place] [address] documented as of this encounter Procedures Procedure [...] Protein 0.59(H) < or = 0.50 mg/dL [facility] Blood Venous blood specimen / Unknown 10/06/2024 10:27 AM EDT 10/06/2024 10:27 AM EDT Rosalind MORELOS LAB BLOOD ORDERABLES Final Res ult [facility] [address] [place] [phone] * Magnesium (10/06/2024 10:27 AM EDT) Magnesium 2.0 1.6 - 2.6 mg/dL [facility] Blood Venous blood specimen / Unknown 10/06/2024 10:27 AM EDT 10/06/2024 10:27 AM EDT us Rosalind Phalen BUSINESS ACCOUNT LEADER LAB BLOOD ORDERABLES Final Res ult Performing Organization Address [facility]/ZIP Co de Phone Number [facility] [address] [place] [address] [phone] * (ABNORMAL) Comprehensive Metabolic Panel (10/06/2024 10:27 AM EDT) Sodium 134(L) 135 - 145 mmol/L [facility] Potassium 4.4 3.3 - 5.1 mmol/L [facility] Chloride 101 96 - 108 mmol/L [facility] Carbon Dioxide 24 22 - 29 mmol/L [facility] Anion Gap 13 12 - 20 [facility] Urea Nitrogen (BUN) 85(H) 9 - 16 mg/dL [facility] Creatinine, Serum 2.35(H) 0.5 - 1.4 mg/dL [facility] Estimated Glomerular Filt Rate 21 [facility] Comment:Chronic Kidney Disea se: Estimated GFR < 60 mL/min/1.00d9Mrwpcp Kidney Disease: Estimated GFR < 15 mL/min/1.73m2 Glucose 298(H) 60 - 115 mg/dL [facility] Calcium 9.6 8.4 - 10.2 mg/dL [facility] Bilirubin, Total 0.3 0.0 - 1.0 mg/dL [facility] Aspartate Amino Transferase 15 5 - 31 U/L [facility] Alanine Aminotransferase 7 0 - 31 U/L [facility] Total Protein 6.9 6.5 - 8.0 g/dL [facility] Albumin Level 3.6 3.5 - 5.0 g/dL [facility] Alkaline Phosphatase 91 39 - 117 U/L [facility] Blood Venous blood specimen / Unknown 10/06/2024 10:27 AM EDT 10/06/2024 10:27 AM EDT Rosalind Cardoso BUSINESS ACCOUNT LEADER LAB BLOOD ORDERABLES Final Res ult Performing Organization Address [facility]/ZIP Co de Phone Number [facility] [address] [place] [address] [phone] * (ABNORMAL) Sed Rate by Modified Westergren (10/02/2024 3:12 PM EDT) Erythrocyte Sedimentation Rate 53(H) 0 - 20 MM/HR [facility] Comment:Patients with polycy themia and many hemoglobin abnormalitiesmay have depressed sed rates whereas patients with anemiamay have elevated sed rates. Blood Venous blood specimen / Unknown 10/02/2024 3:12 PM EDT 10/02/2024 3:12 PM EDT us Rosalind MORELOS LAB BLOOD ORDERABLES Final Res ult [facility] [address] [place] [address] [phone] documented in this encounter Visit Diagnoses [...] as of this encounter Care Teams Manager Valuation Relationship Specialty Start Date End Date Rosalind Cardoso FNP [address] [place] [address] PCP - General Family Medicine 04/28/21 Barron Wetzel MD 100 [facility] 200 [place] [address] Nephrology 01/15/25 Madeline Yo [address] 3rd [place] [address] Cardiology 01/15/25 [employer] 01/05/25 documented as of this encounter
--- OUTSIDE RECORDS SUMMARY | 2025-03-11 13:09 | XMS_ITS | Encounter Summary ---
Author Organization [employer] Address [address] [place] [address] 7 [place] [address] Care Team Providers Care Lead Project Engineer Name Role Phone Rosalind Cardoso Primary Care Provider [phone] Barron Wetzel MD Unavailable [phone] Madeline Yo Unavailable Encounter Details Date Type Department Care Team ([facility] Contact Info) Description 11/28/2022 Abstract [facility] MEDICINE [address] [place] [address] Rosalind Cardoso FNP [address] [place], [place] [phone] Social History Tobacco Use Types Packs/Day Years [...] Upcoming Encounters Date Type Department Care Team ([facility] Contact Info) Description 05/03/2025 11:15 AM EDT Office Visit [facility] MED & PEDS [address] [place] [address] Rosalind Cardoso FNP [address] [place] [address] documented as of this encounter Visit Diagnoses Not on filedocumented in this encounter Care Teams Lead Project Engineer Relationship Specialty Start Date End Date Rosalind Cardoso FNP [address] [place] [address] PCP - General Family Medicine 04/28/21 Barron Wetzel MD [address] [address] Nephrology 01/15/25 Madeline Yo [address] [place] [address] Drive 3rd [place] [address] Cardiology 01/15/25 [employer] 01/05/25 documented as of this encounter
--- OUTSIDE RECORDS SUMMARY | 2025-03-11 13:09 | XMS_ITS | Encounter Summary ---
Author Organization [employer] Address [address] [place] [address] 7 [place] [address] Care Team Providers Care Underground Mine Superintendent Name Role Phone Rosalind Cardoso Primary Care Provider [phone] Barron Wetzel MD Unavailable [phone] Madeline Yo Unavailable Encounter Details Date Type Department Care Team (Late st Contact Info) Description 12/13/2023 Orders Only [facility] [address] [place] [address] Rosalind Cardoso FNP [address] [place], [place] [phone] Type 2 diabetes mellitus with stage 3 [...] 05/03/2025 11:15 AM EDT Office Visit [facility] 505 [place] [address] Rosalind Cardoso, TRAINS DISPATCHER SUPERVISOR 505 [place] [address] documented as of this encounter Procedures Procedure Name Priority Date/Time Associated Diagnosis Comments CBC WITH AUTO DIFFERENTIAL Routine 12/13/2023 8:52 AM EDT Type 2 diabetes mellitus with stage 3 chronic kidney disease, with long-term current use of insulin, unspecified whether stage 3a or 3b CKD ([facility]) Myalgia B TYPE NATRIURETIC PEPTIDE (BNP) Routine 12/13/2023 8:52 AM EDT Type 2 diabetes mellitus with stage 3 chronic kidney disease, with long-term current use of insulin, unspecified whether stage 3a or 3b CKD (CMS/HCC) documented in this encounter Results * (ABNORMAL) B Type Natriuretic Peptide (BNP) (12/13/2023 8:52 AM EDT) B Type Natriuretic Peptide 1,216(H) <100 pg/mL [facility] Comment:For those patients w ho are being treated with Natrecor(nesiritide, recombinant BNP), BNP testing should beperformed at least two hours post treatment in order toensure that only endogenous levels of BNP are detected. 12/13/2023 8:5 2 AM EDT 12/13/2023 8:52 AM EDT us Generic External Data Provider LAB BLOOD ORDERAB LES Final Result [facility] [address] [place] [address] [phone] * (ABNORMAL) CBC auto differential (12/13/2023 8:52 AM EDT) White Blood Count 9.1 4.8 - 10.8 X10*3/uL [facility] Red Blood Count 6.02(H) 4.20 - 5.50 X10*6/uL [facility] Hemoglobin 11.4(L) 12.0 - 16.0 g/dl [facility] Hematocrit 37.7 37.0 - 47.0 % [facility] Mean Corpuscular Volume 62.6(L) 80.0 - 98.0 fL [facility] Mean Corpuscular Hemoglobin 18.9(L) 27.0 - 33.0 pg [facility] Mean Corpuscular HGB Conc 30.2(L) 31.0 - 35.0 g/dl [facility] Red Cell Distribution Width 17.2(H) 11.0 - 16.0 % [facility] Platelet Count 285 160 - 400 X10*3/uL [facility] Mean Platelet Volume 10.8 9.4 - 12.3 fL [facility] Neutrophils Percent Auto 51.6 45 - 73 % [facility] Imm Gran Pct Auto 0.4 0.0 - 0.4 % [facility] Lymphocytes Percent Auto 36.9 20 - 40 % [facility] Monocytes Percent Auto 7.7 2 - 11 % [facility] Eosinophils Percent Auto 2.8 0 - 4 % [facility] Basophils Percent Auto 0.6 0 - 2 % [facility] NRBC Pct Auto 0.0 0.0 - 0.2 /100WBC [facility] Neutrophils Absolute Auto 4.7 2.0 - 8.3 x10*3/uL [facility] Imm Gran Abs Auto 0.04(H) 0.00 - 0.03 X10*3/uL [facility] Lymphocytes Absolute Auto 3.3 1.2 - 4.9 X10*3/uL [facility] Monocytes Absolute Auto 0.7 0.1 - 1.2 X10*3/uL [facility] Eosinophils Absolute Auto 0.3 0.0 - 0.4 X10*3/uL [facility] Basophils Absolute Auto 0.1 0.0 - 0.2 X10*3/uL [facility] NRBC Abs Auto 0.000 0.0 - 0.012 X10*3/uL [facility] Blood Venous blood specimen / Unknown 12/13/2023 8:52 AM EDT 12/13/2023 8:52 AM EDT us Rosalind MORELOS LAB BLOOD ORDERABLES Final Res ult Performing Organization Address City/State/[facility] Co de Phone Number [facility] [address] [place] [phone] documented in this encounter Visit Diagnoses [...] documented as of this encounter Care Teams Underground Mine Superintendent Relationship Specialty Start Date End Date Rosalind Cardoso FNP [address] [place] [address] PCP - General Family Medicine 04/28/21 Barron Wetzel MD [address] [place] [address] Nephrology 01/15/25 Madeline Yo [address] [place] [address] 3rd [place] [address] Cardiology 01/15/25 [employer] 01/05/25 documented as of this encounter
--- OUTSIDE RECORDS SUMMARY | 2025-03-11 13:09 | XMS_ITS | Encounter Summary ---
Author Organization [employer] Address [address] [place] [address] 7t [place] [address] Care Team Providers Care Skimmer Reverberatory Name Role Phone Rosalind Cardoso Primary Care Provider [phone] Barron Wetzel MD Unavailable [phone] Madeline Yo Unavailable Encounter Details Date Type Department Care Team ([facility] Contact Info) Description 10/19/2022 Telephone [facility] [address] [place] [address] Rosalind Cardoso FNP [address] [place], [place] [phone] Social History Tobacco Use Types Packs/Day Years [...] Date Type Department Care Team ([facility] Contact Info) Description 05/03/2025 11:15 AM EDT Office Visit [facility] [address] [place] [address] Rosalind Cardoso FNP [address] [place] [address] documented as of this encounter Visit Diagnoses Not on filedocumented in this encounter Care Teams Skimmer Reverberatory Relationship Specialty Start Date End Date Rosalind Cardoso FNP [address] [place] [address] PCP - General Family Medicine 04/28/21 Barron Wetzel MD [address] [address] Nephrology 01/15/25 Madeline Yo [address] [place] [address] Drive 3rd [place] [address] Cardiology 01/15/25 [employer] 01/05/25 documented as of this encounter
--- OUTSIDE RECORDS SUMMARY | 2025-03-11 13:09 | XMS_ITS | Encounter Summary ---
Author Organization [employer] Address [address] [place] [address] 7t [place] [address] Care Team Providers Care Tube Sizer Operator Name Role Phone Rosalind Cardoso Primary Care Provider [phone] Barron Wetzel MD Unavailable Madeline Yo Unavailable Reason for Visit * Reason Onset Date Comments Referral 10/10/2023 Encounter Details Date Type Department Care Team (Late st Contact Info) Description 10/10/2023 Telephone [facility] MED[facility] [address] [place] [address] Rosalind Cardoso FNP [address] [place], [place] [phone] Referral Social History Tobacco Use Types Packs/Day [...] any questions you can contact pt at [phone]. documented in this encounter Plan of Treatment Upcoming Encounters Date Type Department Care Team (Late st Contact Info) Description 05/03/2025 11:15 AM EDT Office Visit [facility] 505 [place] [address] Rosalind Cardoso FNP [address] [place] [address] documented as of this encounter Visit Diagnoses Not on filedocumented in this encounter Additional Health Concerns Assessment Noted Time PHQ-9 Depression Total Score: 0 12/26/19 23 1:09 PM EDT documented as of this encounter Care Teams Tube Sizer Operator Relationship Specialty Start Date End Date Rosalind Cardoso FNP [address] [place] [address] PCP - General Family Medicine 04/28/21 Barron Wetzel MD [address] [address] Nephrology 01/15/25 Madeline Yo [address] [place] [address] 3rd [place] [address] Cardiology 01/15/25 [employer] 01/05/25 documented as of this encounter
--- OUTSIDE RECORDS SUMMARY | 2025-03-11 13:09 | XMS_ITS | Encounter Summary ---
Author Organization [employer] Address [address] [place] [address] 7 [place] [address] Care Team Providers Care Graphic User Interface Designer Name Role Phone Rosalind Cardoso Primary Care Provider [phone] Barron Wetzel MD Unavailable [phone] Madeline Yo Unavailable Reason for Visit * Reason Onset Date Comments Medication Question 10/22/2023 Encounter Details Date Type Department Care Team (Late st Contact Info) Description 10/22/2023 Telephone [facility]ICINE [address] [place] [address] Rosalind Cardoso FNP [address] [place], [place] [phone] Medication Question Social History Tobacco Use Types [...] Description 05/03/2025 11:15 AM EDT Office Visit [facility] [address] [place] [address] Rosalind Cardoso FNP 505 [place] [address] documented as of this encounter Visit Diagnoses Not on filedocumented in this encounter Additional Health Concerns Assessment Noted Time PHQ-9 Depression Total Score: 0 12/26/19 23 1:09 PM EDT documented as of this encounter Care Teams Graphic User Interface Designer Relationship Specialty Start Date End Date Rosalind Cardoso FNP [address] [place] [address] PCP - General Family Medicine 04/28/21 Barron Wetzel MD 100 [facility] 200 [place] [address] Nephrology 01/15/25 Madeline Yo [address] [place] [address] Drive 3rd Floor [place] [address] Cardiology 01/15/25 [employer] 01/05/25 documented as of this encounter
--- OUTSIDE RECORDS SUMMARY | 2025-03-11 13:09 | XMS_ITS | Encounter Summary ---
Author Organization [employer] Address [address] [place] [address] 7 [place] [address] Care Team Providers Care Motorcycle Maker Name Role Phone Rosalind Cardoso Primary Care Provider [phone] Barron Wetzel MD Unavailable [phone] Madeline Yo Unavailable Reason for Visit * Reason Onset Date Comments medication request 10/22/2023 Encounter Details Date Type Department Care Team (Late st Contact Info) Description 10/22/2023 Telephone [facility] MEDICINE [address] [place] [address] Rosalind Cardoso FNP [address] [place], [place] [phone] medication request Social History Tobacco Use Types [...] medication for pneumonia stated Pain Management from [facility] call her to advise of dx documented in this encounter Plan of Treatment Upcoming Encounters Date Type Department Care Team (Late st Contact Info) Description 05/03/2025 11:15 AM EDT Office Visit [facility] [address] [place] [address] Rosalind Cardoso FNP [address] [place] [address] documented as of this encounter Visit Diagnoses Not on filedocumented in this encounter Additional Health Concerns Assessment Noted Time PHQ-9 Depression Total Score: 0 12/26/19 23 1:09 PM EDT documented as of this encounter Care Teams Motorcycle Maker Relationship Specialty Start Date End Date Rosalind Cardoso FNP [address] [place] [address] PCP - General Family Medicine 04/28/21 Barron Wetzel MD 100 [facility] 200 [place] [address] Nephrology 01/15/25 Madeline Yo [address] [place] [address] 3rd [place] [address] Cardiology 01/15/25 [employer] 01/05/25 documented as of this encounter
--- OUTSIDE RECORDS SUMMARY | 2025-03-11 13:09 | XMS_ITS | Encounter Summary ---
Author Organization [employer] Address [address] [place] [address] 7t [place] [address] Care Team Providers Care Dehydrogenation Converter Operator Name Role Phone Rsoalind Cardoso Primary Care Provider [phone] Barron Wetzel MD Unavailable [phone] Madeline Yo Unavailable Encounter Details Date Type Department Care Team (Late st Contact Info) Description 10/29/2023 Telephone [facility] [address] [place] [address] Rosalind Cardoso FNP [address] [place], [place] [phone] Social History Tobacco Use Types Packs/Day Years [...] AM EDT Office Visit [facility] 505 [place] [address] Rosalind Carodso FNP [address] [place] [address] documented as of this encounter Visit Diagnoses Not on filedocumented in this encounter Additional Health Concerns Assessment Noted Time PHQ-9 Depression Total Score: 0 12/26/19 23 1:09 PM EDT documented as of this encounter Care Teams Dehydrogenation Converter Operator Relationship Specialty Start Date End Date Rosalind Cardoso FNP [address] [place] [address] PCP - General Family Medicine 04/28/21 Barron Wetzel MD 100 [facility] 200 [place] [address] Nephrology 01/15/25 Madeline Yo [address] [facility] [address] 3rd [place] [address] Cardiology 01/15/25 [employer] 01/05/25 documented as of this encounter
--- OUTSIDE RECORDS SUMMARY | 2025-03-11 13:09 | XMS_ITS | Encounter Summary ---
Author Organization [employer] Address [address] [place] [address] 7 [place] [address] Care Team Providers Care Biofuels Manager Name Role Phone Rosalind Cardoso Primary Care Provider [phone] Barron Wetzel MD Unavailable [phone] Madeline Yo Unavailable Encounter Details Date Type Department Care Team (Late st Contact Info) Description 12/27/2023 Orders Only [facility] MED[facility] [address] [place] [address] Rosalind Cardoso FNP [address] [place], [place] [phone] Type 2 diabetes mellitus with stage 3 [...] 11:15 AM EDT Office Visit [facility] [address] [place] [address] Rosalind Cardoso, TAMY 505 [place] [address] documented as of this encounter Procedures Procedure Name Priority Date/Time Associated Diagnosis Comments PROTHROMBIN TIME-INR Routine 12/27/2023 9:33 AM EDT Type 2 diabetes mellitus with stage 3 chronic kidney disease, with long-term current use of insulin, unspecified whether stage 3a or 3b CKD ([facility]) Myalgia documented in this encounter Results * Prothrombin Time-INR (12/27/2023 9:33 AM EDT) Prothrombin Time 11.5 11.1 - 13.3 SEC [facility] INTERNATIONAL NORM RATIO 0.9 0.9 - 1.1 [facility] Comment:INTERNATIONAL NORMAL IZED RATIO (INR) [...] MORELOS LAB BLOOD ORDERABLES Final Res ult [facility] [address] [place] [address] [phone] documented in this encounter Visit Diagnoses [...] documented as of this encounter Care Teams Biofuels Manager Relationship Specialty Start Date End Date Rosalind Cardoso FNP [address] [place] [address] PCP - General Family Medicine 04/28/21 Barron Wetzel MD 100 [facility] 200 [place] [address] Nephrology 01/15/25 Madeline Yo [address] [place] [address] 3rd [place] [address] Cardiology 01/15/25 [employer] 01/05/25 documented as of this encounter
--- OUTSIDE RECORDS SUMMARY | 2025-03-11 13:09 | XMS_ITS | Encounter Summary ---
Author Organization [employer] Address [address] [place] [address] 7 [place] [address] Care Team Providers Care Inside Outside Sales Representative Name Role Phone TeoRosalind bishop TAMY Primary Care Provider [phone] Barron Wetzel MD Unavailable [phone] Srinath, Madeline Unavailable Reason for Visit * Reason Comments Med Refill Encounter Details Date Type Department Care Team ([facility] Contact Info) Description 10/23/2022 Refill [facility] 230 [place] [address] Name, MD Jaiden [address] [place] [address] Social History Tobacco Use Types Packs/Day Years [...] Upcoming Encounters Date Type Department Care Team ([facility] Contact Info) Description 05/03/2025 11:15 AM EDT Office Visit [facility] [address] [place] [address] Rosalind Cardoso FNP [address] [place] [address] documented as of this encounter Visit Diagnoses Not on filedocumented in this encounter Care Teams Inside Outside Sales Representative Relationship Specialty Start Date End Date Rosalind Cardoso FNP [address] [place] [address] PCP - General Family Medicine 04/28/21 Barron Wetzel MD [address] [address] Nephrology 01/15/25 Madeline Yo [address] [place] [address] 3rd [place] [address] Cardiology 01/15/25 [employer] 01/05/25 documented as of this encounter
--- OUTSIDE RECORDS SUMMARY | 2025-03-11 13:09 | XMS_ITS | Encounter Summary ---
Author Organization [employer] Address [address] [place] [address] [address] [place] [address] Care Team Providers Care Telephone Order Clerk Name Role Phone Rosalind Cardoso Primary Care Provider [phone] Barron Wetzel MD Unavailable [phone] Madeline Yo Unavailable Reason for Visit * Reason Comments Med Refill Encounter Details Date Type Department Care Team (Late st Contact Info) Description 11/28/2024 Refill [facility]S [address] [place], [place] [phone] Rosalind Cardoso FNP [address] [place], [place] [phone] Type 2 diabetes mellitus with foot ulcer, with long-term current use of insulin ([facility]) Social History Tobacco Use Types Packs/Day Years [...] the past 12 months, has t he [employer] gas, oil or water company threatened to [...] Description 05/03/2025 11:15 AM EDT Office Visit [facility] PEDS [address] [place] [address] Rosalind Cardoso FNP [address] [place] [address] documented as of this encounter Visit Diagnoses Diagnosis Type 2 diabetes mellitus with foot ulcer, with long-term current use of insulin ([facility]) documented in this encounter Additional Health Concerns Assessment Noted Time PHQ-9 Depression Total Score: 6 08/03/19 25 9:07 AM EST documented as of this encounter Care Teams Telephone Order Clerk Relationship Specialty Start Date End Date Rosalind Cardoso FNP [address] [place] [address] PCP - General Family Medicine 04/28/21 Barron Wetzel MD 100 [facility] 200 [place] [address] Nephrology 01/15/25 Madeline Yo [address] [place] [address] Drive 3rd [place] [address] Cardiology 01/15/25 [employer] 01/05/25 documented as of this encounter
--- OUTSIDE RECORDS SUMMARY | 2025-03-11 13:09 | XMS_ITS | Encounter Summary ---
Author Organization [employer] Address [address] [place] [address] 7t [place] [address] Care Team Providers Care Field Services Analyst Name Role Phone Rosalind Cardoso Primary Care Provider [phone] Barron Wetzel MD Unavailable [phone] Madeline Yo Unavailable Reason for Visit * Reason Onset Date Comments Durable Medical Equipment 12/06/2022 Encounter Details Date Type Department Care Team (Late st Contact Info) Description 12/06/2022 Telephone [facility] MEDICINE [address] [place] [address] Rosalind Cardoso FNP [address] [place], [place] [phone] Durable Medical Equipment Social History Tobacco Use [...] Miscellaneous Notes * Telephone Encounter - Hilaria Jaime - 12/06/2022 11:28 AM EDT Tc from pt calling in regards to script for walker that was sent to [facility]. [facility] advised Pt shecant use walker that was prescribed. Requested that script is resent to [facility] for a plain walker with no wheels and diagnosis to be amputation. For more clarification, please contact pt at [phone] documented in this encounter Plan of Treatment Upcoming Encounters Date Type Department Care Team (Late st Contact Info) Description 05/03/2025 11:15 AM EDT Office Visit [facility] [address] [place] [address] Rosalind Cardoso FNP [address] [place] [address] documented as of this encounter Visit Diagnoses Not on filedocumented in this encounter Care Teams Field Services Analyst Relationship Specialty Start Date End Date Rosalind Cardoso FNP [address] [place] [address] PCP - General Family Medicine 04/28/21 Barron Wetzel MD 100 [facility] 200 [place] [address] Nephrology 01/15/25 Madeline Yo [address] [place] [address] 3rd [place] [address] Cardiology 01/15/25 [employer] 01/05/25 documented as of this encounter
--- OUTSIDE RECORDS SUMMARY | 2025-03-11 13:09 | XMS_ITS | Encounter Summary ---
Author Organization [employer] Address [address] [place] [address] 7 [place] [address] Care Team Providers Care Employment Law Specialist Name Role Phone Rosalind Cardoso Primary Care Provider [phone] Barron Wetzel MD Unavailable [phone] Madeline Yo Unavailable Reason for Visit * Reason Onset Date Comments FYI 09/10/2022 Encounter Details Date Type Department Care Team (Late st Contact Info) Description 09/10/2022 Telephone [facility] MEDICINE 230 [place] [address] Rosalind Cardoso FNP [address] [place], [place] [phone] FY Social History Tobacco Use Types Packs/Day Years [...] 09/10/2022 4:30 PM EST Tc from [facility], Informing provider that pt started her PT, and harsh be seeing her 2 times a week. If any question please contact Nae at [phone] documented in this encounter Plan of Treatment Upcoming Encounters Date Type Department Care Team (Late st Contact Info) Description 05/03/2025 11:15 AM EDT Office Visit [facility] 505 [place], [place] [phone] Rosalind Cardoso FNP 505 [place] [address] documented as of this encounter Visit Diagnoses Not on filedocumented in this encounter Care Teams Employment Law Specialist Relationship Specialty Start Date End Date Rosalind Cardoso FNP [address] [place] [address] PCP - General Family Medicine 04/28/21 Barron Wetzel MD 100 [facility] 200 [place] [address] Nephrology 01/15/25 Madeline Yo [address] [place] [address] 3rd [place] [address] Cardiology 01/15/25 [employer] 01/05/25 documented as of this encounter
--- OUTSIDE RECORDS SUMMARY | 2025-03-11 13:09 | XMS_ITS | Encounter Summary ---
Author Organization [employer] Address [address] [place] [address] 7 [place] [address] Care Team Providers Care Concrete Engineer Name Role Phone Rosalind Carodso Primary Care Provider [phone] Barron Wetzel MD Unavailable [phone] Madeline Yo Unavailable Reason for Visit * Reason Onset Date Comments Results 10/25/2023 Encounter Details Date Type Department Care Team (Late st Contact Info) Description 10/25/2023 Telephone [facility] MEDICINE 230 [place] [address] Rosalind Cardoso FNP [address] [place], [place] [phone] Results Social History Tobacco Use Types Packs/Day [...] Labs Date when done: 10/24 Facility: [facility] * Telephone Encounter - Bahman Hutchinson - 10/25/2023 3:16 PM EDT TC from pt requesting call back regarding Results. Type of results: Labs Date when done: 10/24 Facility: [facility] documented in this encounter Plan of Treatment Upcoming Encounters Date Type Department Care Team (Late st Contact Info) Description 05/03/2025 11:15 AM EDT Office Visit [facility] MED & PEDS 505 [place], [place] [phone] Rosalind Cardoso FNP [address] [place] [address] documented as of this encounter Visit Diagnoses Not on filedocumented in this encounter Additional Health Concerns Assessment Noted Time PHQ-9 Depression Total Score: 0 12/26/19 23 1:09 PM EDT documented as of this encounter Care Teams Concrete Engineer Relationship Specialty Start Date End Date Rosalind Cardoso FNP [address] [place] [address] PCP - General Family Medicine 04/28/21 Barron Wetzel MD 100 [facility] 200 [place] [address] Nephrology 01/15/25 Madeline Yo [address] [place] [address] 3rd [place] [address] Cardiology 01/15/25 [employer] 01/05/25 documented as of this encounter
--- OUTSIDE RECORDS SUMMARY | 2025-03-11 13:09 | XMS_ITS | Encounter Summary ---
Author Organization [employer] Address [address] [place] [address] 7 [place] [address] Care Team Providers Care Drafter Plumbing Name Role Phone Rosalind Cardoso Primary Care Provider [phone] Barron Wetzel MD Unavailable [phone] Madeline Yo Unavailable Reason for Visit * Reason Onset Date Comments Results 10/29/2023 Encounter Details Date Type Department Care Team (Late st Contact Info) Description 10/29/2023 Telephone [facility] MEDICINE [address] [place] [address] Rosalind Cardoso FNP [address] [place], [place] [phone] Results Social History Tobacco Use Types Packs/Day Years Used Date Smoking Tobacco: Never Smokeless Tobacco: Never Alcohol Use Standard Drinks/Week Comments Never 0 (1 standard drink = 0.6 oz pur e alcohol) Depression Answer Date Recorded Patient Health Questionnaire-9 Score 0 12/25/2022 Housing Stability Answer Date Recorded What is your housing situation today? I have elbertrosemarie mtez 04/25/[address] you li [...] [facility] [address] [place] [address] Rosalind Cardoso FNP 505 [place] [address] documented as of this encounter Visit Diagnoses Not on filedocumented in this encounter Additional Health Concerns Assessment Noted Time PHQ-9 Depression Total Score: 0 12/26/19 1:09 PM EDT documented as of this encounter Care Teams Drafter Plumbing Relationship Specialty Start Date End Date Rosalind Cardoso FNP [address] [place] [address] PCP - General Family Medicine 04/28/21 Barron Wetzel MD [address] [phone] Nephrology 01/15/25 Madeline Yo [address] [place] [address] Drive 3rd [place] [address] Cardiology 01/15/25 [employer] 01/05/25 documented as of this encounter
--- OUTSIDE RECORDS SUMMARY | 2025-03-11 13:09 | XMS_ITS | Encounter Summary ---
Author Organization [employer] Address [address] [place] [address] 7t [place] [address] Care Team Providers Care Senior Sql Server Dba Name Role Phone Rosalind Cardoso Primary Care Provider [phone] Barron Wetzel MD Unavailable [phone] Madeline Yo Unavailable Reason for Visit * Reason Onset Date Comments Nurse Triage 01/22/2025 Encounter Details Date Type Department Care Team (Late st Contact Info) Description 01/22/2025 Telephone [facility] MEDICINE [address] [place] [address] Rosalind Cardoso FNP [address] [place], [place] [phone] Nurse Triage Social History Tobacco Use Types [...] encounter Miscellaneous Notes * Telephone Encounter - Shazia Gonzalez RN - 01/22/2025 3:42 PM EDT Called home PT provider regarding message, spoke to Joselin. States only calling today to report elevated BP. 166/99, 164/97. Pt is not very compliant with medications and takes things when she wants to. States plan is to discharge from service next week unless there are further orders. Pt seen yesterday in the clinic for evaluation of headache and elevated BP. Will send to team nurses to follow up or reach out for status in the next 3-5 days. * Telephone Encounter - Yamileth Cisse - 01/22/2025 3:00 PM EDT Symptoms: High Blood Pressure - Caller Reports, Headache Outcome: Schedule an urgent appointment (within 4 hours) or talk to a nurse or provider soon Reason: Started within the past 3 days The caller accepted this outcome. TC from Joselin stating that patient is not taking the prescribed medication for high blood pressureon the right time. Blood pressure left arm: 166 / 99 Blood pressure right arm: 165/97 documented in this encounter Plan of Treatment Upcoming Encounters Date Type Department Care Team (Late st Contact Info) Description 05/03/2025 11:15 AM EDT Office Visit [facility] MED & PEDS 505 [place] [address] Rosalind Cardoso FNP 505 [place] [address] documented as of this encounter Visit Diagnoses Not on filedocumented in this encounter Additional Health Concerns Assessment Noted Time PHQ-9 Depression Total Score: 6 08/03/19 9:07 AM EST documented as of this encounter Care Teams Senior Sql Server Dba Relationship Specialty Start Date End Date Rosalind Cardoso FNP [address] [place] [phone] PCP - General Family Medicine 04/28/21 Barron Wetzel MD 100 [facility] 200 [place] [address] Nephrology 01/15/25 Madeline Yo [address] [place] [address] 3rd [place] [address] Cardiology 01/15/25 [employer] 01/05/25 documented as of this encounter
--- OUTSIDE RECORDS SUMMARY | 2025-03-11 13:09 | XMS_ITS | Encounter Summary ---
Author Organization [employer] Address [address] [place] [address] 7 [place] [address] Care Team Providers Care Coiled Tubing Operator Name Role Phone Rosalind Cardoso Primary Care Provider [phone] Barron Wetzel MD Unavailable [phone] Madeline Yo Unavailable Encounter Details Date Type Department Care Team (Late st Contact Info) Description 11/01/2023 Orders Only [facility] MEDICINE 230 [place] [address] Rosalind Cardoso FNP [address] [place], [place] [phone] Type 2 diabetes mellitus with stage 3 [...] 11:15 AM EDT Office Visit [facility] MED & PEDS 505 [place] [address] Rosalind Cardoso, BIOFUELS TECHNOLOGY MANAGER 505 [place] [address] documented as of this encounter Procedures Procedure [...] stage 3a or 3b CKD ([facility]) Myalgia MAGNESIUM Routine 11/01/2023 3:53 PM EDT Type 2 diabetes mellitus with stage 3 chronic kidney disease, with long-term current use of insulin, unspecified whether stage 3a or 3b CKD ([facility]) Myalgia COMPREHENSIVE METABOLIC PANEL Routine 11/01/2023 3:53 PM EDT Type 2 diabetes mellitus with stage 3 chronic kidney disease, with long-term current use of insulin, unspecified whether stage 3a or 3b CKD ([facility]) Myalgia documented in this encounter [...] 3:58 PM EDT 11/01/2023 5:40 PM EDT us Rosalind Cardoso BIOFUELS TECHNOLOGY MANAGER LAB BLOOD ORDERABLES Final Res ult [facility] [address] [place] [phone] * (ABNORMAL) Sed Rate by Modified Marlene (11/01/2023 3:53 PM EDT) Erythrocyte Sedimentation Rate 28(H) 0 - 20 MM/HR [facility] Comment:Patients with polycy themia and many hemoglobin abnormalitiesmay have depressed sed rates whereas patients with anemiamay have elevated sed rates. Blood Venous blood specimen / Unknown 11/01/2023 3:53 PM EDT 11/01/2023 5:40 PM EDT us Rosalind Cardoso BIOFUELS TECHNOLOGY MANAGER LAB BLOOD ORDERABLES Final Res ult Performing Organization Address [facility] Co de Phone Number [facility] [address] [place] [phone] * C-reactive Protein (11/01/2023 3:53 PM EDT) C Reactive Protein 0.48 < or = 0.50 mg/dL [facility] Blood Venous blood specimen / Unknown 11/01/2023 3:53 PM EDT 11/01/2023 5:40 PM EDT us Rosalind Cardoso BIOFUELS TECHNOLOGY MANAGER LAB BLOOD ORDERABLES Final Res ult Performing Organization Address [facility] Phone Number [facility] [address] [place] [phone] * Magnesium (11/01/2023 3:53 PM EDT) Magnesium 1.7 1.6 - 2.6 mg/dL [facility] Blood Venous blood specimen / Unknown 11/01/2023 3:53 PM EDT 11/01/2023 5:40 PM EDT Rosalind Cardoso BIOFUELS TECHNOLOGY MANAGER LAB BLOOD ORDERABLES Final Res ult Performing Organization Address [facility] de Phone Number [facility] [address] [place] [phone] * Prothrombin Time-INR (11/01/2023 3:53 PM [...] 11/01/2023 5:40 PM EDT us Rosalind Cardoso BIOFUELS TECHNOLOGY MANAGER LAB BLOOD ORDERABLES Final Res ult [facility] [address] [place], [place] [phone] * (ABNORMAL) Comprehensive Metabolic Panel (11/01/2023 [...] 1.210.Chronic Kidney Disease: Estimated GFR < 60 mL/min/1.23l1Rdugut Kidney Disease: Estimated GFR < 15 mL/min/1.73m2 [...] ult [facility] [address] [place] [address] [phone] documented in this encounter Visit Diagnoses [...] documented as of this encounter Care Teams Coiled Tubing Operator Relationship Specialty Start Date End Date Rosalind Cardoso FNP 230 [place] [address] PCP - General Family Medicine 04/28/21 Barron Wetzel MD 100 [facility] 200 [place] [address] Nephrology 01/15/25 Madeline Yo [address] [place] [address] 3rd [place] [address] Cardiology 01/15/25 [employer] 01/05/25 documented as of this encounter
--- OUTSIDE RECORDS SUMMARY | 2025-03-11 13:09 | XMS_ITS | Encounter Summary ---
Author Organization [employer] Address [address] [place] [address] 7 [place] [address] Care Team Providers Care Access Rn Name Role Phone Rosalind Cardoso Primary Care Provider [phone] Barron Wetzel MD Unavailable [phone] Madeline Yo Unavailable Encounter Details Date Type Department Care Team (Late st Contact Info) Description 12/20/2023 Orders Only [facility] CH[facility] MED & PEDS 505 [place], [place] [phone] Rosalind Cardoso FNP 505 [place], [place] [phone] Type 2 diabetes mellitus with stage 3 [...] the past 12 months, has t he [employer], gas, oil or water company threatened to [...] Description 05/03/2025 11:15 AM EDT Office Visit [facility] MED & PEDS 505 [place] [address] Rosalind Cardoso, TAMY 505 [place] [address] documented as of this encounter Procedures Procedure [...] tibia and fibula ([facility]/HCC) documented in this encounter Results * C-reactive Protein (12/27/2023 9:33 AM EDT) C Reactive Protein 0.46 < or = 0.50 mg/dL [facility] Blood Venous blood specimen / Unknown 12/27/2023 9:33 AM EDT 12/27/2023 9:33 AM EDT us Rosalind Cardoso SYNTHETIC FILAMENT EXTRUDER LAB BLOOD ORDERABLES Final Res ult [facility] [address] [place] [phone] * (ABNORMAL) Sed Rate by Modified Javierren (12/27/2023 9:33 AM EDT) Erythrocyte Sedimentation Rate 36(H) 0 - 20 MM/HR [facility] Comment:Patients with polycy themia and many hemoglobin abnormalitiesmay have depressed sed rates whereas patients with anemiamay have elevated sed rates. Blood Venous blood specimen / Unknown 12/27/2023 9:33 AM EDT 12/27/2023 9:33 AM EDT Rosalind Cardoso SYNTHETIC FILAMENT EXTRUDER LAB BLOOD ORDERABLES Final Res ult Performing Organization Address [facility] Co de Phone Number [facility] [address] [place] [phone] * Magnesium (12/27/2023 9:33 AM EDT) Magnesium 2.2 1.6 - 2.6 mg/dL [facility] Blood Venous blood specimen / Unknown 12/27/2023 9:33 AM EDT 12/27/2023 9:33 AM EDT Rosalind Cardoso SYNTHETIC FILAMENT EXTRUDER LAB BLOOD ORDERABLES Final Res ult Performing Organization Address [facility] de Phone Number [facility] [address] [place] [phone] * (ABNORMAL) Comprehensive Metabolic Panel (12/27/2023 9:33 AM EDT) Sodium 141 135 - 145 mmol/L [facility] Potassium 3.8 3.3 - 5.1 mmol/L [facility] Chloride 105 96 - 108 mmol/L [facility] Carbon Dioxide 28 22 - 29 mmol/L [facility] Anion Gap 12 12 - 20 [facility] Urea Nitrogen (BUN) 28(H) 9 - 16 mg/dL [facility] Creatinine, Serum 1.18 0.5 - 1.4 mg/dL [facility] Estimated Glomerular Filt Rate 47 [facility] Comment:NOTE: For -Am erican individuals, multiply the result by 1.210.Chronic Kidney Disease: Estimated GFR < 60 mL/min/1.23q6Siajos Kidney Disease: Estimated GFR < 15 mL/min/1.73m2 Glucose 206(H) 60 - 115 mg/dL [facility] Calcium 9.3 8.4 - 10.2 mg/dL [facility] Bilirubin, Total 0.3 0.0 - 1.0 mg/dL [facility] Aspartate Amino Transferase 16 5 - 31 U/L [facility] Alanine Aminotransferase 22 0 - 31 U/L [facility] Total Protein 6.8 6.5 - 8.0 g/dL [facility] Albumin Level 3.5 3.5 - 5.0 g/dL [facility] Alkaline Phosphatase 88 39 - 117 U/L [facility] Blood Venous blood specimen / Unknown 12/27/2023 9:33 AM EDT 12/27/2023 9:33 AM EDT us Rosalind Cardoso SYNTHETIC FILAMENT EXTRUDER LAB BLOOD ORDERABLES Final Res ult [facility] [address] [place] [phone] * (ABNORMAL) CBC auto differential (12/27/2023 9:33 AM EDT) White Blood Count 9.2 4.8 - 10.8 X10*3/uL [facility] Red Blood Count 5.36 4.20 - 5.50 X10*6/uL [facility] Hemoglobin 10.1(L) 12.0 - 16.0 g/dl [facility] Hematocrit 32.8(L) 37.0 - 47.0 % [facility] Mean Corpuscular Volume 61.2(L) 80.0 - 98.0 fL [facility] Mean Corpuscular Hemoglobin 18.8(L) 27.0 - 33.0 pg [facility] Mean Corpuscular HGB Conc 30.8(L) 31.0 - 35.0 g/dl [facility] Red Cell Distribution Width 17.0(H) 11.0 - 16.0 % [facility] Platelet Count 292 160 - 400 X10*3/uL [facility] Mean Platelet Volume 11.0 9.4 - 12.3 fL [facility] Neutrophils Percent Auto 59.0 45 - 73 % [facility] Imm Gran Pct Auto 0.3 0.0 - 0.4 % [facility] Lymphocytes Percent Auto 28.1 20 - 40 % [facility] Monocytes Percent Auto 8.8 2 - 11 % [facility] Eosinophils Percent Auto 3.1 0 - 4 % [facility] Basophils Percent Auto 0.7 0 - 2 % [facility] NRBC Pct Auto 0.0 0.0 - 0.2 /100WBC [facility] Neutrophils Absolute Auto 5.4 2.0 - 8.3 x10*3/uL [facility] Imm Gran Abs Auto 0.03 0.00 - 0.03 X10*3/uL [facility] Lymphocytes Absolute Auto 2.6 1.2 - 4.9 X10*3/uL [facility] Monocytes Absolute Auto 0.8 0.1 - 1.2 X10*3/uL [facility] Eosinophils Absolute Auto 0.3 0.0 - 0.4 X10*3/uL [facility] Basophils Absolute Auto 0.1 0.0 - 0.2 X10*3/uL [facility] NRBC Abs Auto 0.000 0.0 - 0.012 X10*3/uL [facility] Blood Venous blood specimen / Unknown 12/27/2023 9:33 AM EDT 12/27/2023 9:33 AM EDT us Rosalind Cardoso SYNTHETIC FILAMENT EXTRUDER LAB BLOOD ORDERABLES Final Res ult [facility] [address] [place] [phone] documented in this encounter Visit Diagnoses Diagnosis Type 2 diabetes mellitus with stage 3 chronic kidney disease, with long-term current use of insulin, unspecified whether stage 3a or 3b CKD ([facility]) Primary hypertension Unspecified essential hypertension Stage 3b chronic kidney disease (CMS/HCC) 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 200 [place] [address] Nephrology 01/15/25 Madeline Yo [address] [place] [address] 3rd [place] [address] Cardiology 01/15/25 [email or web address] 01/05/25 documented as of this encounter
--- OUTSIDE RECORDS SUMMARY | 2025-03-11 13:09 | XMS_ITS | Encounter Summary ---
Author Organization [employer] Address [address] [place] [address] 7 [place] [address] Care Team Providers Care Private Branch Exchange Repairer Name Role Phone Rosalind Cardoso Primary Care Provider [phone] Barron Wetzel MD Unavailable [phone] Madeline Yo Unavailable Encounter Details Date Type Department Care Team (Late st Contact Info) Description 02/07/2024 Orders Only [facility] MEDICINE [address] [place] [address] Rosalind Cardoso FNP [address] [place], [place] [phone] Type 2 diabetes mellitus with stage 3 [...] 11:15 AM EDT Office Visit [facility] MED & PEDS 505 [place] [address] Rosalind Cardoso FNP 505 [place] [address] documented as of this encounter Visit Diagnoses Diagnosis Type 2 diabetes mellitus with stage 3 chronic kidney disease, with long-term current use of insulin, unspecified whether stage 3a or 3b CKD ([facility]/HCC) Myalgia Unspecified myalgia and myositis documented in this encounter Additional Health Concerns Assessment Noted Time PHQ-9 Depression Total Score: 0 12/26/19 23 1:09 PM EDT documented as of this encounter Care Teams Private Branch Exchange Repairer Relationship Specialty Start Date End Date Rosalind Cardoso FNP [address] [place] [address] PCP - General Family Medicine 04/28/21 Barron Wetzel MD 100 [facility] 200 [place] [phone] Nephrology 01/15/25 Madeline Yo [address] 3rd [place] [address] Cardiology 01/15/25 [employer] 01/05/25 documented as of this encounter
--- OUTSIDE RECORDS SUMMARY | 2025-03-11 13:09 | XMS_ITS | Encounter Summary ---
Author Organization [employer] Address [address] [place] [address] 7 [place] [address] Care Team Providers Care Sales Contracts Analyst Name Role Phone Rosalind Cardoso Primary Care Provider [phone] Barron eWtzel MD Unavailable [phone] Madeline Yo Unavailable Encounter Details Date Type Department Care Team (Late st Contact Info) Description 11/15/2023 Orders Only [facility] MEDICINE [address] [place] [address] Rosalind Cardoso FNP [address] [place], [place] [phone] Type 2 diabetes mellitus with stage 3 [...] [facility] [address] [place] [address] Rosalind Cardoso, INTERNAL MEDICINE NURSE PRACTITIONER 505 [place] [address] documented as of this encounter Procedures Procedure [...] whether stage 3a or 3b CKD ([facility]) Myalgia COMPREHENSIVE METABOLIC PANEL Routine 11/20/2023 9:36 AM EDT Type 2 diabetes mellitus with stage 3 chronic kidney disease, with long-term current use of insulin, unspecified whether stage 3a or 3b CKD ([facility]) Myalgia documented in this encounter Results * (ABNORMAL) Sed Rate by Modified Westergren (11/20/2023 9:36 AM EDT) Erythrocyte Sedimentation Rate 30(H) 0 - 20 MM/HR [facility] Comment:Patients with polycy themia and many hemoglobin abnormalitiesmay have depressed sed rates whereas patients with anemiamay have elevated sed rates. Blood Venous blood specimen / Unknown 11/20/2023 9:36 AM EDT 11/20/2023 9:36 AM EDT Rosalind Cardoso INTERNAL MEDICINE NURSE PRACTITIONER LAB BLOOD ORDERABLES Final Res ult Performing Organization Address [facility]/ZIP Co de Phone Number [facility] [address] [place] [phone] * (ABNORMAL) C-reactive Protein (11/20/2023 9:36 AM EDT) C Reactive Protein 1.26(H) < or = 0.50 mg/dL [facility] Blood Venous blood specimen / Unknown 11/20/2023 9:36 AM EDT 11/20/2023 9:36 AM EDT Rosalind Cardoso INTERNAL MEDICINE NURSE PRACTITIONER LAB BLOOD ORDERABLES Final Res ult Performing Organization Address City/[facility]/ZIP Co de Phone Number [facility] [address] [place] [phone] * Magnesium (11/20/2023 9:36 AM EDT) [facility] Magnesium 1.8 1.6 - 2.6 mg/dL [facility] Blood Venous blood specimen / Unknown 11/20/2023 9:36 AM EDT 11/20/2023 9:36 AM EDT Rosalind Cardoso [facility] LAB BLOOD ORDERABLES Final Res ult Performing Organization Address [facility] Co de Phone Number [facility] [address] [place] [phone] * Prothrombin Time-INR (11/20/2023 9:36 AM EDT) [facility] Prothrombin Time 11.6 11.1 - 13.3 SEC [facility] [...] EDT 11/20/2023 9:36 AM EDT Rosalind Cardoso [facility] LAB BLOOD ORDERABLES Final Res ult Performing Organization Address [facility] Co de Phone Number [facility] [address] [place] [phone] * (ABNORMAL) Comprehensive Metabolic Panel (11/20/2023 9:36 AM EDT) [facility] Sodium 139 135 - 145 mmol/L [facility] Potassium 4.0 3.3 - 5.1 mmol/L [facility] Chloride 102 96 - 108 mmol/L [facility] Carbon Dioxide 28 22 - 29 mmol/L [facility] Anion Gap 13 12 - 20 [facility] Urea Nitrogen (BUN) 40(H) 9 - 16 mg/dL [facility] Creatinine, Serum 1.51(H) 0.5 - 1.4 mg/dL [facility] Estimated Glomerular Filt Rate 35 [facility] Comment:NOTE: For -Am erican individuals, multiply the result by 1.210.Chronic Kidney Disease: Estimated GFR < 60 mL/min/1.21x9Alyiaa Kidney Disease: Estimated GFR < 15 mL/min/1.73m2 Glucose 214(H) 60 - 115 mg/dL [facility] Calcium 9.7 8.4 - 10.2 mg/dL [facility] Bilirubin, Total 0.2 0.0 - 1.0 mg/dL [facility] Aspartate Amino Transferase 15 5 - 31 U/L [facility] Alanine Aminotransferase 11 0 - 31 U/L [facility] Total Protein 7.0 6.5 - 8.0 g/dL [facility] Albumin Level 3.4(L) 3.5 - 5.0 g/dL [facility] Alkaline Phosphatase 112 39 - 117 U/L [facility] Blood Venous blood specimen / Unknown 11/20/2023 9:36 AM EDT 11/20/2023 9:36 AM EDT us Rosalind MORELOS LAB BLOOD ORDERABLES Final Res ult [facility] [address] [place] [phone] documented in this encounter Visit Diagnoses [...] as of this encounter Care Teams Sales Contracts Analyst Relationship Specialty Start Date End Date Rosalind Cardoso FNP [address] [place] [address] PCP - General Family Medicine 04/28/21 Barron Wetzel MD 100 [facility] 200 [place] [address] Nephrology 01/15/25 Madeline Yo [address] [place] [address] 3rd [place] [address] Cardiology 01/15/25 [employer] 01/05/25 documented as of this encounter
--- OUTSIDE RECORDS SUMMARY | 2025-03-11 13:09 | XMS_ITS | Encounter Summary ---
Author Organization [employer] Address [address] [place] [address] 7 [place] [address] Care Team Providers Care Night Nurse Name Role Phone Rosalind Cardoso Primary Care Provider [phone] Barron Wetzel MD Unavailable [phone] Madeline Yo Unavailable Reason for Visit * Reason Onset Date Comments Durable Medical Equipment 09/14/2022 Encounter Details Date Type Department Care Team (Late st Contact Info) Description 09/14/2022 Telephone [facility] [address] [place] [address] Rosalind Cardoso FNP [address] [place], [place] [phone] Durable Medical Equipment Social History Tobacco Use [...] for signature and will be emailed to behavioral health care manager Leonard for processing * Telephone Encounter - Franc Talley - 09/14/2022 11:52 AM EST Tc from pt requesting a call back, pt claims that the visiting care takers advised that patient needs a thick cushion for her wheel chair and a New walker with two wheels because the other walker is to fast for the pt. If any questions please contact pt at [phone] documented in this encounter Plan of Treatment Upcoming Encounters Date Type Department Care Team (Late st Contact Info) Description 05/03/2025 11:15 AM EDT Office Visit [facility] & [facility]EDS [address] [place] [address] Rosalind Cardoso FNP 505 [place] [address] documented as of this encounter Visit Diagnoses Not on filedocumented in this encounter Care Teams Night Nurse Relationship Specialty Start Date End Date Rosalind Cardoso FNP [address] [place] [address] PCP - General Family Medicine 04/28/21 Barron Wetzel MD 100 [facility] 200 [place] [address] Nephrology 01/15/25 Madeline Yo 11 [facility] 3rd [place] [address] Cardiology 01/15/25 [employer] 01/05/25 documented as of this encounter
--- OUTSIDE RECORDS SUMMARY | 2025-03-11 13:09 | XMS_ITS | Encounter Summary ---
Author Organization [employer] Address [address] [place] [address] 7 [place] [address] Care Team Providers Care Batter Depositor Name Role Phone Rosalind Cardoso Primary Care Provider [phone] Barron Wetzel MD Unavailable [phone] Madeline Yo Unavailable Encounter Details Date Type Department Care Team (Late st Contact Info) Description 01/24/2024 Orders Only [facility] [address] [place] [address] Rosalind Cardoso FNP [address] [place], [place] [phone] Type 2 diabetes mellitus with stage 3 [...] [facility] 505 [place] [address] Rosalind Cardoso, TAMY 505 [place] [address] documented as of this encounter Procedures Procedure [...] EST) Magnesium 2.0 1.6 - 2.6 mg/dL [facility] Blood Venous blood specimen / Unknown 05/29/2024 2:18 PM EST 05/29/2024 2:18 PM EST Rosalind Cardoso INSPECTOR [employer] LAB BLOOD ORDERABLES Final Res ult Performing Organization Address [facility]/ZIP Co de Phone Number [facility] [address] [place] [address] [phone] * Prothrombin Time-INR (05/29/2024 2:18 PM EST) Prothrombin Time 11.1 10.9 - 12.4 SEC [facility] INTERNATIONAL NORM RATIO 1.0 0.9 - 1.1 [facility] Comment:INTERNATIONAL NORMAL IZED RATIO (INR) [...] EST 05/29/2024 2:18 PM EST Rosalind Cardoso [facility] BLOOD ORDERABLES Final Res ult Performing Organization Address [facility] Co de Phone Number [facility] [address] [place] [phone] documented in this encounter Visit Diagnoses [...] documented as of this encounter Care Teams Batter Depositor Relationship Specialty Start Date End Date Rosalind Cardoso FNP [address] [place] [address] PCP - General Family Medicine 04/28/21 Barron Wetzel MD 100 [facility] 200 [place] [address] Nephrology 01/15/25 Madeline Yo [address] [place] [address] 3rd [place] [address] Cardiology 01/15/25 [employer] 01/05/25 documented as of this encounter
--- OUTSIDE RECORDS SUMMARY | 2025-03-11 13:09 | XMS_ITS | Encounter Summary ---
Author Organization [employer] Address [address] [place] [address] 7 [place] [address] Care Team Providers Care Photocopying Equipment Repairer Name Role Phone Rosalind Cardoso Primary Care Provider [phone] Barron Wetzel MD Unavailable [phone] Madeline Yo Unavailable Encounter Details Date Type Department Care Team (Late st Contact Info) Description 01/10/2024 Orders Only [facility] [address] [place] [address] Rosalind Cardoso FNP [address] [place], [place] [phone] Type 2 diabetes mellitus with stage 3 [...] [facility] [address] [place] [address] Rosalind Cardoso, TAMY 505 [place] [address] documented as of this encounter Procedures Procedure Name Priority Date/Time Associated Diagnosis Comments PROTHROMBIN TIME-INR Routine 01/17/2024 12:30 PM EDT Type 2 diabetes mellitus with stage 3 chronic kidney disease, with long-term current use of insulin, unspecified whether stage 3a or 3b CKD ([facility]) Myalgia documented in this encounter Results * Prothrombin Time-INR (01/17/2024 12:30 PM EDT) Prothrombin Time 11.4 11.1 - 13.3 SEC [facility] INTERNATIONAL NORM RATIO 0.9 0.9 - 1.1 [facility] Comment:INTERNATIONAL NORMAL IZED RATIO (INR) [...] MORELOS LAB BLOOD ORDERABLES Final Res ult [facility] [address] [place] [address] [phone] documented in this encounter Visit Diagnoses [...] documented as of this encounter Care Teams Photocopying Equipment Repairer Relationship Specialty Start Date End Date Rosalind Cardoso FNP 230 [place] [address] PCP - General Family Medicine 04/28/21 Barron Wetzel MD 100 [facility] 200 [place] [address] Nephrology 01/15/25 Madeline Yo [address] [place] [address] 3rd [place] [address] Cardiology 01/15/25 [employer] 01/05/25 documented as of this encounter
--- OUTSIDE RECORDS SUMMARY | 2025-03-11 13:09 | XMS_ITS | Encounter Summary ---
Author Organization [employer] Address [address] [place] [address] 7 [place] [address] Care Team Providers Care Petroleum Analyst Name Role Phone Rosalind Cardoso Primary Care Provider [phone] Barron Wetzel MD Unavailable [phone] Madeline Yo Unavailable Encounter Details Date Type Department Care Team (Late st Contact Info) Description 01/17/2024 Orders Only [facility] & PEDS 505 [place], [place] [phone] Rosalind Cardoso FNP 505 [place], [place] [phone] Type 2 diabetes mellitus with stage 3 [...] the past 12 months, has t he [employer] gas, oil or water company threatened to [...] Description 05/03/2025 11:15 AM EDT Office Visit [facility] MED & PEDS 505 [place] [address] Rosalind Cardoso, TAMY 505 [place] [address] documented as of this encounter Procedures Procedure [...] Protein 0.36 < or = 0.50 mg/dL [facility] Blood Venous blood specimen / Unknown 01/17/2024 12:30 PM EDT 01/17/2024 12:30 PM EDT Rosalind STARKSP LAB BLOOD ORDERABLES Final Res ult Performing Organization Address [facility] Co de Phone Number [facility] [address] [place] [phone] * (ABNORMAL) Sed Rate by Modified [...] Final Res ult Performing Organization Address [facility] Co de Phone Number [facility] [address] [place] [phone] documented in this encounter Visit Diagnoses Diagnosis Type 2 diabetes mellitus with stage 3 chronic kidney disease, with long-term current use of insulin, unspecified whether stage 3a or 3b CKD ([facility]) Primary hypertension Unspecified essential hypertension Stage 3b chronic kidney disease ([facility]/H[facility]) 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 ([facility]) documented in this encounter Additional Health Concerns Assessment Noted Time PHQ-9 Depression Total Score: 0 12/26/19 23 1:09 PM EDT documented as of this encounter Care Teams Petroleum Analyst Relationship Specialty Start Date End Date Rosalind Cardoso FNP [address] [place] [address] PCP - General Family Medicine 04/28/21 Barron Wetzel MD 100 [facility] BI [facility] 200 [place] [address] Nephrology 01/15/25 Madeline Yo [address] [place] [address] 3[address] [place] [address] Cardiology 01/15/25 [employer] 01/05/25 documented as of this encounter
--- OUTSIDE RECORDS SUMMARY | 2025-03-11 13:09 | XMS_ITS | Encounter Summary ---
Author Organization [employer] Address [address] [place] [address] 7 [place] [address] Care Team Providers Care Cotton Sampler Name Role Phone Rosalind Cardoso Primary Care Provider [phone] Barron Wetzel MD Unavailable [phone] Madeline Yo Unavailable Encounter Details Date Type Department Care Team (Late st Contact Info) Description 01/03/2024 Orders Only [facility] MED & PEDS 505 [place], [place] [phone] Rosalind Cardoso FNP 505 [place], [place] [phone] Type 2 diabetes mellitus with stage 3 [...] Description 05/03/2025 11:15 AM EDT Office Visit [facility] MED [facility] PEDS [address] [place] [address] Rosalind Cardoso FNP 505 [place] [address] documented as of this encounter Procedures Procedure [...] unspecified whether stage 3a or 3b CKD ([facility]) Primary hypertension Stage 3b chronic kidney disease ([facility]) 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 ([facility]) documented in this encounter Results * Magnesium (01/17/2024 12:30 PM EDT) Magnesium 2.4 1.6 - 2.6 mg/dL [facility] Blood Venous blood specimen / Unknown 01/17/2024 12:30 PM EDT 01/17/2024 12:30 PM EDT us Rosalind Cardoso ASSEMBLY SUPERVISOR LAB BLOOD ORDERABLES Final Res ult [facility] [address] [place] [phone] * (ABNORMAL) Comprehensive Metabolic Panel (01/17/2024 12:30 PM EDT) Sodium 141 135 - 145 mmol/L [facility] Potassium 4.2 3.3 - 5.1 mmol/L [facility] Chloride 106 96 - 108 mmol/L [facility] Carbon Dioxide 26 22 - 29 mmol/L [facility] Anion Gap 13 12 - 20 [facility] Urea Nitrogen (BUN) 30(H) 9 - 16 mg/dL [facility] Creatinine, Serum 1.24 0.5 - 1.4 mg/dL [facility] Estimated Glomerular Filt Rate 44 [facility] Comment:NOTE: For -Am erican individuals, multiply the result by 1.210.Chronic Kidney Disease: Estimated GFR < 60 mL/min/1.39a1Tactmy Kidney Disease: Estimated GFR < 15 mL/min/1.73m2 Glucose 165(H) 60 - 115 mg/dL [facility] Calcium 9.7 8.4 - 10.2 mg/dL [facility] Bilirubin, Total 0.4 0.0 - 1.0 mg/dL [facility] Aspartate Amino Transferase 14 5 - 31 U/L [facility] Alanine Aminotransferase 14 0 - 31 U/L [facility] Total Protein 6.8 6.5 - 8.0 g/dL [facility] Albumin Level 3.5 3.5 - 5.0 g/dL [facility] Alkaline Phosphatase 79 39 - 117 U/L [facility] Blood Venous blood specimen / Unknown 01/17/2024 12:30 PM EDT 01/17/2024 12:30 PM EDT us Rosalind Cardoso ASSEMBLY SUPERVISOR LAB BLOOD ORDERABLES Final Res ult [facility] [address] [place] [address] [phone] * (ABNORMAL) CBC auto differential (01/17/2024 12:30 PM EDT) White Blood Count 8.3 4.8 - 10.8 X10*3/uL [facility] Red Blood Count 4.91 4.20 - 5.50 X10*6/uL [facility] Hemoglobin 9.4(L) 12.0 - 16.0 g/dl [facility] Hematocrit 30.6(L) 37.0 - 47.0 % [facility] Mean Corpuscular Volume 62.3(L) 80.0 - 98.0 fL [facility] Mean Corpuscular Hemoglobin 19.1(L) 27.0 - 33.0 pg [facility] Mean Corpuscular HGB Conc 30.7(L) 31.0 - 35.0 g/dl [facility] Red Cell Distribution Width 20.2(H) 11.0 - 16.0 % [facility] Platelet Count 302 160 - 400 X10*3/uL [facility] Mean Platelet Volume 10.6 9.4 - 12.3 fL [facility] Neutrophils Percent Auto 64.0 45 - 73 % [facility] Imm Gran Pct Auto 0.5(H) 0.0 - 0.4 % [facility] Lymphocytes Percent Auto 24.0 20 - 40 % [facility] Monocytes Percent Auto 8.2 2 - 11 % [facility] Eosinophils Percent Auto 2.9 0 - 4 % [facility] Basophils Percent Auto 0.4 0 - 2 % [facility] NRBC Pct Auto 0.0 0.0 - 0.2 /100WBC [facility] Neutrophils Absolute Auto 5.3 2.0 - 8.3 x10*3/uL [facility] Imm Gran Abs Auto 0.04(H) 0.00 - 0.03 X10*3/uL [facility] Lymphocytes Absolute Auto 2.0 1.2 - 4.9 X10*3/uL [facility] Monocytes Absolute Auto 0.7 0.1 - 1.2 X10*3/uL [facility] Eosinophils Absolute Auto 0.2 0.0 - 0.4 X10*3/uL [facility] Basophils Absolute Auto 0.0 0.0 - 0.2 X10*3/uL [facility] NRBC Abs Auto 0.000 0.0 - 0.012 X10*3/uL [facility] Blood Venous blood specimen / Unknown 01/17/2024 12:30 PM EDT 01/17/2024 12:30 PM EDT us Rosalind Cardoso ASSEMBLY SUPERVISOR LAB BLOOD ORDERABLES Final Res ult [facility] [address] [place] [phone] [phone] documented in this encounter Visit Diagnoses Diagnosis Type 2 diabetes mellitus with stage 3 chronic kidney disease, with long-term current use of insulin, unspecified whether stage 3a or 3b CKD ([facility]) Primary hypertension Unspecified essential hypertension Stage 3b chronic kidney disease ([facility]) 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 ([facility]) documented in this encounter Additional Health Concerns Assessment Noted Time PHQ-9 Depression Total Score: 0 12/26/19 23 1:09 PM EDT documented as of this encounter Care Teams Cotton Sampler Relationship Specialty Start Date End Date Rosalind Cardoso FNP [address] [place] [address] PCP - General Family Medicine 04/28/21 Barron Wetzel MD 100 [facility] 200 [place] [address] Nephrology 01/15/25 Madeline Yo [address] [place] [address] 3rd [place] [address] Cardiology 01/15/25 [employer] 01/05/25 documented as of this encounter
--- OUTSIDE RECORDS SUMMARY | 2025-03-11 13:09 | XMS_ITS | Encounter Summary ---
Author Organization [employer] Address [address] [place] [address] 7 [place] [address] Care Team Providers Care Reeler Operator Name Role Phone Rosalind Cardoso Primary Care Provider [phone] Barron Wetzel MD Unavailable [phone] Madeline Yo Unavailable Encounter Details Date Type Department Care Team (Late st Contact Info) Description 11/29/2023 Orders Only [facility] [address] [place] [address] Rosalind Cardoso FNP [address] [place], [place] [phone] Type 2 diabetes mellitus with stage 3 [...] AM EDT Office Visit [facility] 505 [place] [address] Rosalind Cardoso, TANNING SALON ATTENDANT [address] [place] [address] documented as of this encounter Procedures Procedure [...] PM EDT Narrative 12/27/2023 3:26 PM EDT [facility]'s [address] [place], [place] [address] Mammography Report Signed Patient: Mitra Parish MR#: [id number] : 1965 Acct:[id number] Age/Sex: 58 / F ADM Date: 11/29/23 Loc: HO.MAMMO Attending Dr: Rosalind MORELOS Ordering Physician: Rosalind Cardoso Results: 1Negat aiden Date of Service: 11/29/23 Follow Up: 1 Year From Orig ina Mammogram Procedure(s): MM tomosynthesis screening BI Accession Number(s): [id number] cc: Rosalind Cardoso EXAMINATION: MM SCREENING DIGITAL [...] in OV> 12/27/23 1522 DD/ 1440 TD/TT: Ward Aide: Procedure Note Donotuseinterpreter, Image - 12/27/[address] [facility]'s [address] [place] [address] Mammography Report Signed Patient: Dany Parish#: [id number] : 1965Acct:[id number] Age/Sex: 58 / FADM Date: 11/29/23 Loc: HO.MAMMO Attending Dr: Rosalind MORELOS Ordering Physician: Rosalind CardosoPResults: 1Negat aiden Date of Service: 11/29/23Follow Up: 1 Year From [facility] Mammogram Procedure(s): MM tomosynthesis screening BI Accession Number(s): [id number] cc: Rosalind Cardoso EXAMINATION: MM SCREENING DIGITAL [...] in OV> 12/27/23 1522 DD/ 1440 TD/TT: Ward Aide: us Rosalind Cardoso TANNING SALON ATTENDANT IMG BI PROCEDURES Final Result * (ABNORMAL) Sed Rate by Modified Marlene (11/29/2023 1:21 PM EDT) Erythrocyte Sedimentation Rate 30(H) 0 - 20 MM/HR [facility] Comment:Patients with polycy themia and many hemoglobin abnormalitiesmay have depressed sed rates whereas patients with anemiamay have elevated sed rates. Blood Venous blood specimen / Unknown 11/29/2023 1:21 PM EDT 11/29/2023 1:21 PM EDT Rosalind Phalen TANNING SALON ATTENDANT LAB BLOOD ORDERABLES Final Res ult Performing Organization Address [facility] Co de Phone Number [facility] [address] [place] [phone] * C-reactive Protein (11/29/2023 1:21 PM EDT) C Reactive Protein 0.34 < or = 0.50 mg/dL [facility] Blood Venous blood specimen / Unknown 11/29/2023 1:21 PM EDT 11/29/2023 1:21 PM EDT Rosalind Phalen TANNING SALON ATTENDANT LAB BLOOD ORDERABLES Final Res ult Performing Organization Address City/[facility]/ZIP Co de Phone Number [facility] [address] [place] [phone] * Magnesium (11/29/2023 1:21 PM EDT) Pathologist [facility] Magnesium 1.8 1.6 - 2.6 mg/dL [facility] Blood Venous blood specimen / Unknown 11/29/2023 1:21 PM EDT 11/29/2023 1:21 PM EDT [facility] LAB BLOOD ORDERABLES Final Res ult Performing Organization Address [facility]/ZIP Co de Phone Number [facility] [address] [place] [phone] * Prothrombin Time-INR (11/29/2023 1:21 PM EDT) [facility] Prothrombin Time 11.8 11.1 - 13.3 SEC [facility] INTERNATIONAL NORM RATIO 1.0 0.9 - 1.1 [facility] Comment:INTERNATIONAL NORMAL IZED RATIO (INR) [...] PM EDT 11/29/2023 1:21 PM EDT Rosalind [facility] LAB BLOOD ORDERABLES Final Res ult Performing Organization Address [facility]/ZIP Co de Phone Number [facility] [address] [place] [phone] * (ABNORMAL) Comprehensive Metabolic Panel (11/29/2023 1:21 PM EDT) [facility] Sodium 140 135 - 145 mmol/L [facility] Potassium 3.6 3.3 - 5.1 mmol/L [facility] Chloride 103 96 - 108 mmol/L [facility] Carbon Dioxide 28 22 - 29 mmol/L [facility] Anion Gap 13 12 - 20 [facility] Urea Nitrogen (BUN) 23(H) 9 - 16 mg/dL [facility] Creatinine, Serum 1.06 0.5 - 1.4 mg/dL [facility] Estimated Glomerular Filt Rate 53 [facility] Comment:NOTE: For -Am erican individuals, multiply the result by 1.210.Chronic Kidney Disease: Estimated GFR < 60 mL/min/1.86m0Pqgehu Kidney Disease: Estimated GFR < 15 mL/min/1.73m2 Glucose 165(H) 60 - 115 mg/dL [facility] Calcium 9.5 8.4 - 10.2 mg/dL [facility] Bilirubin, Total 0.3 0.0 - 1.0 mg/dL [facility] Aspartate Amino Transferase 16 5 - 31 U/L [facility] Alanine Aminotransferase 13 0 - 31 U/L [facility] Total Protein 6.8 6.5 - 8.0 g/dL [facility] Albumin Level 3.3(L) 3.5 - 5.0 g/dL [facility] Alkaline Phosphatase 94 39 - 117 U/L [facility] Blood Venous blood specimen / Unknown 11/29/2023 1:21 PM EDT 11/29/2023 1:21 PM EDT us Rosalind Cardoso TANNING SALON ATTENDANT LAB BLOOD ORDERABLES Final Res ult [facility] [address] [place] [address] [phone] * (ABNORMAL) CBC auto differential (11/29/2023 1:21 PM EDT) White Blood Count 8.7 4.8 - 10.8 X10*3/uL [facility] Red Blood Count 5.99(H) 4.20 - 5.50 X10*6/uL [facility] Hemoglobin 11.3(L) 12.0 - 16.0 g/dl [facility] Hematocrit 37.5 37.0 - 47.0 % [facility] Mean Corpuscular Volume 62.6(L) 80.0 - 98.0 fL [facility] Mean Corpuscular Hemoglobin 18.9(L) 27.0 - 33.0 pg [facility] Mean Corpuscular HGB Conc 30.1(L) 31.0 - 35.0 g/dl [facility] Red Cell Distribution Width 16.4(H) 11.0 - 16.0 % [facility] Platelet Count 310 160 - 400 X10*3/uL [facility] Mean Platelet Volume 11.1 9.4 - 12.3 fL [facility] Neutrophils Percent Auto 56.2 45 - 73 % [facility] Imm Gran Pct Auto 0.2 0.0 - 0.4 % [facility] Lymphocytes Percent Auto 32.5 20 - 40 % [facility] Monocytes Percent Auto 7.6 2 - 11 % [facility] Eosinophils Percent Auto 2.8 0 - 4 % [facility] Basophils Percent Auto 0.7 0 - 2 % [facility] NRBC Pct Auto 0.0 0.0 - 0.2 /100WBC [facility] Neutrophils Absolute Auto 4.9 2.0 - 8.3 x10*3/uL [facility] Imm Gran Abs Auto 0.02 0.00 - 0.03 X10*3/uL [facility] Lymphocytes Absolute Auto 2.8 1.2 - 4.9 X10*3/uL [facility] Monocytes Absolute Auto 0.7 0.1 - 1.2 X10*3/uL [facility] Eosinophils Absolute Auto 0.2 0.0 - 0.4 X10*3/uL [facility] Basophils Absolute Auto 0.1 0.0 - 0.2 X10*3/uL [facility] NRBC Abs Auto 0.000 0.0 - 0.012 X10*3/uL [facility] Blood Venous blood specimen / Unknown 11/29/2023 1:21 PM EDT 11/29/2023 1:21 PM EDT Rosalind MORELOS LAB BLOOD ORDERABLES Final Res ult [facility] [address] [place] [phone] [phone] documented in this encounter Visit Diagnoses [...] documented as of this encounter Care Teams Reeler Operator Relationship Specialty Start Date End Date Rosalind Cardoso FNP [address] [place] [address] PCP - General Family Medicine 04/28/21 Barron Wetzel MD [address] [phone] Nephrology 01/15/25 Madeline Yo [address] [place] [address] 3rd [place] [address] Cardiology 01/15/25 [employer] 01/05/25 documented as of this encounter
--- OUTSIDE RECORDS SUMMARY | 2025-03-11 13:09 | XMS_ITS | Encounter Summary ---
Author Organization [employer] Address [address] [place] [address] Care Team Providers Care Expedition Supervisor Name Role Phone Rosalind Cardoso Primary Care Provider [phone] Barron Wetzel MD Unavailable [phone] Madeline Yo Unavailable Reason for Referral * Consultation (Routine) - Closed Specialty Diagnoses / Procedures Referred By Anthony reyes Referred To Contact Diagnoses Cervicalgia Fibromyalgia 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 (CMS/HCC) Rosalind Cardoso FNP [address] [place] [address] Phone: tel: fax: [facility] Referral ID Status Reason Start Date Expiration Date V isits Requested Visits Authorized [id number] Closed Specialty Services Required 11/28/2023 11/27/2024 1 1 * Consultation (Routine) - Closed Specialty Diagnoses / Procedures Referred By Anthony reyes Referred To Contact Physical Therapy Diagnoses Cervicalgia Fibromyalgia 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 ([facility]/HCC) Rosalind Cardoso FNP [address] [place] [address] Phone: tel: fax: [facility] [address] [place] [address] Phone: tel: fax: Referral ID Status Reason Start Date Expiration Date V isits Requested Visits Authorized [id number] Closed Specialty Services Required 11/28/2023 11/27/2024 1 1 Reason for Visit * Reason Onset Date Comments Referral 11/25/2023 Results 11/25/2023 Encounter Details Date Type Department Care Team ([facility] Contact Info) Description 11/25/2023 Telephone [facility] CHC MED & PEDS [address] [place] [address] Rosalind Cardoso FNP [address] [place] [address] Referral; Results Social History Tobacco Use Types [...] lisinopril, 10 mg starting last month by attache along with continuing furosemide, 80 mg. Pt is also requesting new referral to [facility] for full body acupuncture and full body massage respectively. [facility] was unable to go due to being sick and leg swelling. Called [facility] at [phone], spoke to Stella and confirmed a referral was sent and another needs to be sent so insurance cancover it. Their fax is [phone]. Also called [facility] and got their fax number which is [phone]. Pt is also waiting for results of US done on kidney at [facility] on 11/19. Advised that results may take [...] Thank you! * Telephone Encounter - Hilaria Sandoval - 11/25/2023 10:55 AM EDT TC from pt requesting new referral : DATE: n/a TIME: n/a Address: [address] [place] [address] Visits: n/a Facility Name: [facility] Type of Specialist: Acupuncture DX: amputation and Fibromyalgia Phone # : [phone] Fax #: n/a TC from pt requesting call back regarding Results. Type of results: labs Date when done: 11/19 Facility: [facility] Pt is also calling to advise provider attache increased dosage of furosemide (Lasix) 20 MG tablet to 80 mg. Advise to continue medication for a week and do blood work by end of this week. Pt will also be receiving prosthetic leg in about a week or so Any questions, contact pt at [phone] documented in this encounter Plan of Treatment Upcoming Encounters Date Type Department Care Team ([facility] Contact Info) Description 05/03/2025 11:15 AM EDT Office Visit [facility] CHC MED & PEDS [address] [place] [address] Rosalind Cardoso FNP [address] [place] [address] Scheduled Referrals Name Type Priority Associated Diagnoses Order Schedule Referral to Massage Therapy Outpatient Referral Routine Cervicalgia Fibromyalgia 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 ([facility]) Expected: 11/28/2023 (Approximate), Expires: 11/27/2024 Referral for Acupuncture Outpatient Referral Routine Cervicalgia Fibromyalgia 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 ([facility]) Expected: 11/28/2023 (Approximate), Expires: 11/27/2024 documented as of this encounter Visit Diagnoses Diagnosis Cervicalgia- Primary Fibromyalgia Unspecified myalgia and myositis 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 ([facility]) documented in this encounter Additional Health Concerns Assessment Noted Time PHQ-9 Depression Total Score: 0 12/26/19 1:09 PM EDT documented as of this encounter Care Teams Expedition Supervisor Relationship Specialty Start Date End Date Rosalind Cardoso FNP [address] [place] [address] PCP - General Family Medicine 04/28/21 Barron Wetzel MD [address] [address] Nephrology 01/15/25 Madeline Yo [address] [place] [address] 3rd [place] [address] Cardiology 01/15/25 [employer] 01/05/25 documented as of this encounter
--- OUTSIDE RECORDS SUMMARY | 2025-03-11 13:09 | XMS_ITS | Encounter Summary ---
Author Organization [employer] Address [address] [place] [address] 7 [place] [address] Care Team Providers Care Counseling Services Manager Name Role Phone Rosalind Cardoso Primary Care Provider Barron Wetzel MD Unavailable [phone] Madeline Yo Unavailable Encounter Details Date Type Department Care Team (Late st Contact Info) Description 10/18/2023 Orders Only [facility] MEDICINE [address] [place] [address] Rosalind Cardoso FNP [address] [place], [place] [phone] Type 2 diabetes mellitus with stage 3 [...] Office Visit [facility]ED[facility] [address] [place] [address] Rosalind Cardoso, RACK PRODUCTION WORKER [address] [place] [address] documented as of this encounter Procedures Procedure [...] 3a or 3b CKD ([facility]) Myalgia documented in this encounter Results * (ABNORMAL) C-reactive Protein (10/25/2023 1:09 PM EDT) Pathologist [facility] C Reactive Protein 1.49(H) < or = 0.50 mg/dL [facility] Blood Venous blood specimen / Unknown 10/25/2023 1:09 PM EDT 10/25/2023 1:09 PM EDT Rosalind Cardoso [facility] BLOOD ORDERABLES Final Res ult Performing Organization Address [facility]/ZIP Co de Phone Number [facility] [address] [place] [phone] * Magnesium (10/25/2023 1:09 PM EDT) Pathologist [facility] Magnesium 2.1 1.6 - 2.6 mg/dL [facility] Blood Venous blood specimen / Unknown 10/25/2023 1:09 PM EDT 10/25/2023 1:09 PM EDT Rosalind Cardoso [facility] BLOOD ORDERABLES Final Res ult Performing Organization Address [facility]/ZIP Co de Phone Number [facility] [address] [place] [phone] * (ABNORMAL) Comprehensive Metabolic Panel (10/25/2023 1:09 PM EDT) Pathologist [facility] Sodium 143 135 - 145 mmol/L [facility] Potassium 4.1 3.3 - 5.1 mmol/L [facility] Chloride 104 96 - 108 mmol/L [facility] Carbon Dioxide 31(H) 22 - 29 mmol/L [facility] Anion Gap 12 12 - 20 [facility] Urea Nitrogen (BUN) 27(H) 9 - 16 mg/dL [facility] Creatinine, Serum 1.20 0.5 - 1.4 mg/dL [facility] Estimated Glomerular Filt Rate 46 [facility] Comment:NOTE: For -Am erican individuals, multiply the result by 1.210.Chronic Kidney Disease: Estimated GFR < 60 mL/min/1.44u4Awkxla Kidney Disease: Estimated GFR < 15 mL/min/1.73m2 Glucose 223(H) 60 - 115 mg/dL [facility] Calcium 9.4 8.4 - 10.2 mg/dL [facility] Bilirubin, Total 0.3 0.0 - 1.0 mg/dL [facility] Aspartate Amino Transferase 20 5 - 31 U/L [facility] Alanine Aminotransferase 34(H) 0 - 31 U/L [facility] Total Protein 6.6 6.5 - 8.0 g/dL [facility] Albumin Level 3.2(L) 3.5 - 5.0 g/dL [facility] Alkaline Phosphatase 166(H) 39 - 117 U/L [facility] Blood Venous blood specimen / Unknown 10/25/2023 1:09 PM EDT 10/25/2023 1:09 PM EDT us Rosalind Cardoso [employer] LAB BLOOD ORDERABLES Final Res ult [facility] [address] [place] [phone] * (ABNORMAL) CBC auto differential (10/25/2023 1:09 PM EDT) White Blood Count 9.0 4.8 - 10.8 X10*3/uL [facility] Red Blood Count 4.91 4.20 - 5.50 X10*6/uL [facility] Hemoglobin 9.5(L) 12.0 - 16.0 g/dl [facility] Hematocrit 32.4(L) 37.0 - 47.0 % [facility] Mean Corpuscular Volume 66.0(L) 80.0 - 98.0 fL [facility] Mean Corpuscular Hemoglobin 19.3(L) 27.0 - 33.0 pg [facility] Mean Corpuscular HGB Conc 29.3(L) 31.0 - 35.0 g/dl [facility] Red Cell Distribution Width 17.2(H) 11.0 - 16.0 % [facility] Platelet Count 442(H) 160 - 400 X10*3/uL [facility] Mean Platelet Volume 11.3 9.4 - 12.3 fL [facility] Neutrophils Percent Auto 60.9 45 - 73 % [facility] Imm Gran Pct Auto 0.4 0.0 - 0.4 % [facility] Lymphocytes Percent Auto 25.2 20 - 40 % [facility] Monocytes Percent Auto 8.7 2 - 11 % [facility] Eosinophils Percent Auto 4.1(H) 0 - 4 % [facility] Basophils Percent Auto 0.7 0 - 2 % [facility] NRBC Pct Auto 0.0 0.0 - 0.2 /100WBC [facility] Neutrophils Absolute Auto 5.5 2.0 - 8.3 x10*3/uL [facility] Imm Gran Abs Auto 0.04(H) 0.00 - 0.03 X10*3/uL [facility] Lymphocytes Absolute Auto 2.3 1.2 - 4.9 X10*3/uL [facility] Monocytes Absolute Auto 0.8 0.1 - 1.2 X10*3/uL [facility] Eosinophils Absolute Auto 0.4 0.0 - 0.4 X10*3/uL [facility] Basophils Absolute Auto 0.1 0.0 - 0.2 X10*3/uL [facility] NRBC Abs Auto 0.000 0.0 - 0.012 X10*3/uL [facility] Blood Venous blood specimen / Unknown 10/25/2023 1:09 PM EDT 10/25/2023 1:09 PM EDT Rosalind MORELOS LAB BLOOD ORDERABLES Final Res ult [facility] [address] [place] [phone] documented in this encounter Visit Diagnoses [...] documented as of this encounter Care Teams Counseling Services Manager Relationship Specialty Start Date End Date Rosalind Cardoso FNP [address] [place] [address] PCP - General Family Medicine 04/28/21 Barron Wetzel MD [address] [address] Nephrology 01/15/25 Madeline Yo [address] [place] [address] 3rd [place] [address] Cardiology 01/15/25 [employer] 01/05/25 documented as of this encounter
--- OUTSIDE RECORDS SUMMARY | 2025-03-11 13:09 | XMS_ITS | Encounter Summary ---
Author Organization [employer] Address [address] [place] [address] 7t [place] [address] Care Team Providers Care Warehouse Logistics Coordinator Name Role Phone Rosalind Cardoso Primary Care Provider [phone] Barron Wetzel MD Unavailable [phone] Madeline Yo Unavailable Reason for Visit * Reason Onset Date Comments Durable Medical Equipment 10/23/2022 Encounter Details Date Type Department Care Team (Late st Contact Info) Description 10/23/[address] [facility] MEDICINE [address] [place] [address] Rosalind Cardoso FNP [address] [place], [place] [phone] Durable Medical Equipment Social History Tobacco Use [...] for walker was already sent to healthcare economics manager and pt notified. * Telephone Encounter - Franc Talley - 10/23/2022 2:25 PM EDT Tc from pt requesting a regular Walker for physical therapy program. Pt states that she needs the regular walker with the two wheels in the front and not seat. Please contact pt at [phone] documented in this encounter Plan of Treatment Upcoming Encounters Date Type Department Care Team (Late st Contact Info) Description 05/03/2025 11:15 AM EDT Office Visit [facility] PEDS [address] [place] [address] Rosalind Cardoso FNP [address] [place] [address] documented as of this encounter Visit Diagnoses Not on filedocumented in this encounter Care Teams Warehouse Logistics Coordinator Relationship Specialty Start Date End Date Rosalind Cardoso FNP [address] [place] [address] PCP - General Family Medicine 04/28/21 Barron Wetzel MD 100 [facility] [address] [place] [address] Nephrology 01/15/25 Madeline Yo [address] [place] [address] 3[address] [place] [address] Cardiology 01/15/25 [facility] [facility] 01/05/25 documented as of this encounter
--- OUTSIDE RECORDS SUMMARY | 2025-03-11 13:10 | XMS_ITS | Encounter Summary ---
Author Organization [employer] Address [address] [place] [address] 7 [place] [address] Care Team Providers Care Admeasurer Name Role Phone Rosalind Cardoso Primary Care Provider [phone] Barron Wetzel MD Unavailable [phone] Madeline Yo Unavailable Encounter Details Date Type Department Care Team (Late st Contact Info) Description 03/27/2024 Orders Only [facility] CHC MED & PEDS [address] [place], [place] [phone] Rosalind Cardoso FNP [address] [place], [place] [phone] Type 2 diabetes mellitus with stage 3 [...] [facility] [address] [place] [address] Rosalind Cardoso FNP [address] [place] [address] documented as of this encounter Visit Diagnoses [...] documented as of this encounter Care Teams Admeasurer Relationship Specialty Start Date End Date Rosalind Cardoso FNP [address] [place] [address] PCP - General Family Medicine 04/28/21 Barron Wetzel MD [address] [facility] [address] [place] [address] Nephrology 01/15/25 Madeline Yo [address] [place] [address] Drive 3rd [place] [address] Cardiology 01/15/25 [facility] 01/05/25 documented as of this encounter
--- OUTSIDE RECORDS SUMMARY | 2025-03-11 13:10 | XMS_ITS | Encounter Summary ---
Author Organization [employer] Address [address] [place] [address] 7 [place] [address] Care Team Providers Care Art Psychotherapist Name Role Phone Rosalind Cardoso Primary Care Provider [phone] Barron Wetzel MD Unavailable [phone] Madeline Yo Unavailable Encounter Details Date Type Department Care Team (Late st Contact Info) Description 05/08/2024 Orders Only [facility] CHC MED & PEDS [address] [place], [place] [phone] Rosalind Cardoso FNP [address] [place], [place] [phone] Type 2 diabetes mellitus with stage 3 [...] 05/03/2025 11:15 AM EDT Office Visit [facility] MED & PEDS [address] [place] [address] Rosalind Cardoso FNP [address] [place] [address] documented as of this encounter Visit Diagnoses [...] documented as of this encounter Care Teams Art Psychotherapist Relationship Specialty Start Date End Date Rosalind Cardoso FNP [address] [place] [address] PCP - General Family Medicine 04/28/21 Barron Wetzel MD [address] [facility] [address] [place] [address] Nephrology 01/15/25 Madeline Yo [address] [place] [address] Drive 3rd [place] [address] Cardiology 01/15/25 [employer] 01/05/25 documented as of this encounter
--- OUTSIDE RECORDS SUMMARY | 2025-03-11 13:10 | XMS_ITS | Encounter Summary ---
Author Organization [employer] Address [address] [place] [address] 7t [place] [address] Care Team Providers Care Interlibrary Loan Services Librarian Name Role Phone Rosalind Cardoso Primary Care Provider [phone] Barron Wetzel MD Unavailable [phone] Madeline Yo Unavailable Reason for Visit * Reason Comments Med Refill Encounter Details Date Type Department Care Team (Late st Contact Info) Description 01/13/2023 Refill [facility] MED & PEDS [address] [place] [address] Saba Garcia FNP Type 2 diabetes mellitus with hyperglycemia (CMS/HCC) [...] Description 05/03/2025 11:15 AM EDT Office Visit [facility] CHC MED & PEDS [address] [place] [address] Rosalind Cardoso FNP [address] [place] [address] documented as of this encounter Visit Diagnoses Diagnosis Type 2 diabetes mellitus with hyperglycemia (CMS/HCC) documented in this encounter Additional Health Concerns Assessment Noted Time PHQ-9 Depression Total Score: 0 12/26/19 23 1:09 PM EDT documented as of this encounter Care Teams Interlibrary Loan Services Librarian Relationship Specialty Start Date End Date Rosalind Cardoso FNP [address] [place] [address] PCP - General Family Medicine 04/28/21 Barron Wetzel MD [address] [address] Nephrology 01/15/25 Madeline Yo [address] [place] [address] 3rd [place] [address] Cardiology 01/15/25 [employer] 01/05/25 documented as of this encounter
--- OUTSIDE RECORDS SUMMARY | 2025-03-11 13:10 | XMS_ITS | Encounter Summary ---
Author Organization [employer] Address [address] [place] [address] 7 [place] [address] Care Team Providers Care Java Security Architect Name Role Phone Rosalind Cardoso Primary Care Provider [phone] Barron Wetzel MD Unavailable [phone] Madeline Yo Unavailable Encounter Details Date Type Department Care Team (Late st Contact Info) Description 03/06/2024 Orders Only [facility] MEDICINE [address] [place] [address] Rosalind Cardoso FNP [address] [place], [place] [phone] Type 2 diabetes mellitus with stage 3 [...] Description 05/03/2025 11:15 AM EDT Office Visit [facility] MED & PEDS [address] [place] [address] Rosalind Cardoso FNP [address] [place] [address] documented as of this encounter Visit Diagnoses Diagnosis Type 2 diabetes mellitus with stage 3 chronic kidney disease, with long-term current use of insulin, unspecified whether stage 3a or 3b CKD ([facility]/HCC) Myalgia Unspecified myalgia and myositis documented in this encounter Additional Health Concerns Assessment Noted Time PHQ-9 Depression Total Score: 0 12/26/19 23 1:09 PM EDT documented as of this encounter Care Teams Java Security Architect Relationship Specialty Start Date End Date Rosalind Cardoso FNP [address] [place] [address] PCP - General Family Medicine 04/28/21 Barron Wetzel MD 100 [facility] [address] [place] [address] Nephrology 01/15/25 Madeline Yo [address]rd [place] [address] Cardiology 01/15/25 [employer] 01/05/25 documented as of this encounter
--- OUTSIDE RECORDS SUMMARY | 2025-03-11 13:10 | XMS_ITS | Encounter Summary ---
Author Organization [employer] Address [address] [place] [address] 7 [place] [address] Care Team Providers Care Hospital Director Name Role Phone Rosalind Cardoso Primary Care Provider [phone] Barron Wetzel MD Unavailable [phone] Madeline Yo Unavailable Encounter Details Date Type Department Care Team (Late st Contact Info) Description 07/24/2024 Orders Only [facility] MEDICINE [address] [place] [address] Rosalind Cardoso FNP [address] [place], [place] [phone] Type 2 diabetes mellitus with stage 3 [...] [facility] [address] [place] [address] Rosalind Cardoso FNP [address] [place] [address] documented as of this encounter Visit Diagnoses Diagnosis Type 2 diabetes mellitus with stage 3 chronic kidney disease, with long-term current use of insulin, unspecified whether stage 3a or 3b CKD ([facility]/HCC) Myalgia Unspecified myalgia and myositis documented in this encounter Additional Health Concerns Assessment Noted Time PHQ-9 Depression Total Score: 0 12/26/19 23 1:09 PM EDT documented as of this encounter Care Teams Hospital Director Relationship Specialty Start Date End Date Rosalind Cardoso FNP [address] [place] [address] PCP - General Family Medicine 04/28/21 Barron Wetzel MD 100 [facility] 200 [place] [address] Nephrology 01/15/25 Madeline Yo [address]rd [place] [id number] Cardiology 01/15/25 [facility] [employer] 01/05/25 documented as of this encounter
--- OUTSIDE RECORDS SUMMARY | 2025-03-11 13:10 | XMS_ITS | Encounter Summary ---
Author Organization [employer] Address [address] [place] [address] 7 [place] [address] Care Team Providers Care Mat Weaver Name Role Phone Rosalind Cardoso Primary Care Provider [phone] Barron Wetzel MD Unavailable [phone] Madeline Yo Unavailable Encounter Details Date Type Department Care Team (Late st Contact Info) Description 05/01/2024 Orders Only [facility] MEDICINE [address] [place] [address] Rosalind Cardoso FNP [address] [place], [place] [phone] Type 2 diabetes mellitus with stage 3 [...] Description 05/03/2025 11:15 AM EDT Office Visit [facility] MED & PEDS [address] [place] [address] Rosalind Cardoso FNP [address] [place] [address] documented as of this encounter Visit Diagnoses Diagnosis Type 2 diabetes mellitus with stage 3 chronic kidney disease, with long-term current use of insulin, unspecified whether stage 3a or 3b CKD ([facility]/HCC) Myalgia Unspecified myalgia and myositis documented in this encounter Additional Health Concerns Assessment Noted Time PHQ-9 Depression Total Score: 0 12/26/19 23 1:09 PM EDT documented as of this encounter Care Teams Mat Weaver Relationship Specialty Start Date End Date Rosalind Cardoso FNP [address] [place] [address] PCP - General Family Medicine 04/28/21 Barron Wetzel MD 100 [facility] 200 [place] [address] Nephrology 01/15/25 Madeline Yo [address] 3rd [place] [address] Cardiology 01/15/25 [employer] 01/05/25 documented as of this encounter
--- OUTSIDE RECORDS SUMMARY | 2025-03-11 13:10 | XMS_ITS | Encounter Summary ---
Author Organization [employer] Address [address] [place] [address] 7 [place] [address] Care Team Providers Care Realtime Reporter Name Role Phone Rosalind Cardoso Primary Care Provider [phone] Barron Wetzel MD Unavailable [phone] Madeline Yo Unavailable Encounter Details Date Type Department Care Team (Late st Contact Info) Description 06/05/2024 Orders Only [facility] CHC MED & PEDS 505 [place], [place] [phone] Rosalind Cardoso FNP 505 [place], [place] [phone] Type 2 diabetes mellitus with stage 3 [...] 11:15 AM EDT Office Visit [facility] MED & PEDS 505 [place] [address] Rosalind Cardoso, TAMY 505 [place] [address] documented as of this encounter Procedures Procedure [...] tibia and fibula ([facility]/HCC) MAGNESIUM Routine 06/08/2024 9:25 AM EST Type 2 diabetes mellitus with stage 3 chronic kidney disease, with long-term current use of insulin, unspecified whether stage 3a or 3b CKD (CMS/HCC) Primary hypertension Stage 3b chronic kidney disease (CMS/HCC) 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 ([facility]/HCC) documented in this encounter Results * Prothrombin Time-INR (06/08/2024 9:25 AM EST) Prothrombin Time 11.7 10.9 - 12.4 SEC [facility] INTERNATIONAL NORM RATIO 1.0 0.9 - 1.1 [facility] Comment:INTERNATIONAL NORMAL IZED RATIO [...] 06/08/2024 9:25 AM EST us Rosalind Cardoso [facility] BLOOD ORDERABLES Final Res ult [facility] [address] [place] [address] [phone] * (ABNORMAL) C-reactive Protein (06/08/2024 9:25 AM EST) C Reactive Protein 1.04(H) < or = 0.50 mg/dL [facility] Blood Venous blood specimen / Unknown 06/08/2024 9:25 AM EST 06/08/2024 9:25 AM EST us Rosalind Cardoso CONTINUOUS PROCESS [employer] LAB BLOOD ORDERABLES Final Res ult Performing Organization Address [facility] [[email or web address]] Co de Phone Number [facility] [address] [place] [phone] * (ABNORMAL) Sed Rate by Modified Westergren (06/08/2024 9:25 AM EST) Erythrocyte Sedimentation Rate 54(H) 0 - 20 MM/HR [facility] Comment:Patients with polycy themia and many hemoglobin abnormalitiesmay have depressed sed rates whereas patients with anemiamay have elevated sed rates. Blood Venous blood specimen / Unknown 06/08/2024 9:25 AM EST 06/08/2024 9:25 AM EST us Rosalind Cardoso CONTINUOUS PROCESS [employer] LAB BLOOD ORDERABLES Final Res ult Performing Organization Address [facility] Phone Number [facility] [address] [place] [phone] * Magnesium (06/08/2024 9:25 AM EST) Magnesium 1.9 1.6 - 2.6 mg/dL [facility] Blood Venous blood specimen / Unknown 06/08/2024 9:25 AM EST 06/08/2024 9:25 AM EST us Rosalind Cardoso CONTINUOUS PROCESS [employer] LAB BLOOD ORDERABLES Final Res ult Performing Organization Address [facility] de Phone Number [facility] [address] [place] [phone] documented in this encounter Visit Diagnoses [...] documented as of this encounter Care Teams Realtime Reporter Relationship Specialty Start Date End Date Rosalind Cardoso FNP [address] [place] [address] PCP - General Family Medicine 04/28/21 Barron Wetzel MD [address] [address] Nephrology 01/15/25 Madeline Yo [address] [place] [address] Drive 3rd [place] [address] Cardiology 01/15/25 [employer] 01/05/25 documented as of this encounter
--- OUTSIDE RECORDS SUMMARY | 2025-03-11 13:10 | XMS_ITS | Encounter Summary ---
Author Organization [employer] Address [address] [place] [address] 7 [place] [address] Care Team Providers Care Senior Applications Architect Name Role Phone Rosalind Cardoso Primary Care Provider [phone] Barron Wetzel MD Unavailable [phone] Madeline Yo Unavailable Encounter Details Date Type Department Care Team (Late st Contact Info) Description 06/12/2024 Orders Only [facility] MEDICINE [address] [place] [address] Rosalind Cardoso FNP [address] [place], [place] [phone] Type 2 diabetes mellitus with stage 3 [...] AM EDT Office Visit [facility] MED & PEDS 505 [place] [address] Rosalind Cardoso, TAMY 505 [place] [address] documented as of this encounter Procedures Procedure [...] Protein 0.50 < or = 0.50 mg/dL [facility] Blood Venous blood specimen / Unknown 06/23/2024 10:31 AM EST 06/23/2024 10:31 AM EST us Rosalind Cardoso [employer] LAB BLOOD ORDERABLES Final Res ult Performing Organization Address City/[facility]/ZIP Co de Phone Number [facility] [address] [place] [phone] [phone] * Magnesium (06/23/2024 10:31 AM EST) Magnesium 1.8 1.6 - 2.6 mg/dL [facility] Blood Venous blood specimen / Unknown 06/23/2024 10:31 AM EST 06/23/2024 10:31 AM EST us Rosalind Janae [facility] BLOOD ORDERABLES Final Res ult Performing Organization Address [facility] Co de Phone Number [facility] [address] [place] [phone] [phone] documented in this encounter Visit Diagnoses [...] as of this encounter Care Teams Senior Applications Architect Relationship Specialty Start Date End Date Rosalind Cardoso FNP [address] [place] [address] PCP - General Family Medicine 04/28/21 Barron Wetzel MD 100 [facility] 200 [place] [address] Nephrology 01/15/25 Madeline Yo [address] 3rd [place] [address] Cardiology 01/15/25 [employer] 01/05/25 documented as of this encounter
--- OUTSIDE RECORDS SUMMARY | 2025-03-11 13:10 | XMS_ITS | Encounter Summary ---
Author Organization [employer] Address [address] [place] [address] [address] [place] [address] Care Team Providers Care Soa Architect Name Role Phone Rosalind Cardoso Primary Care Provider [phone] Barron Wetzel MD Unavailable [phone] Madeline Yo Unavailable Encounter Details Date Type Department Care Team (Late st Contact Info) Description 05/22/2024 Orders Only [facility] MED & PEDS 505 [place], [place] [phone] Rosalind Cardoso FNP 505 [place], [place] [phone] Type 2 diabetes mellitus with stage 3 chronic kidney disease, with long-term current use of insulin, unspecified whether stage 3a or 3b CKD (CMS/HCC); Primary hypertension; Stage 3b chronic kidney disease ([facility]/HCC); 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 ([facility]); Low back pain at multiple sites; Type 2 diabetes mellitus with hyperglycemia, with long-term current use of insulin (CMS/[facility]); Type 2 diabetes mellitus with foot ulcer, with long-term current use of insulin ([facility]); Pure hypercholesterolemia, unspecified; Pain; Type 2 diabetes mellitus with hyperglycemia (CMS/HCC); Type 2 diabetes mellitus with other specified complication, unspecified whether remote computer terminal operator insulin use (CMS/HCC); Fibromyalgia Social History Tobacco Use Types Packs/Day Years Used Date Smoking Tobacco: Never Smokeless Tobacco: Never Alcohol Use Standard Drinks/Week Comments Never 0 (1 standard drink = 0.6 oz pur e alcohol) Depression Answer Date Recorded Patient Health Questionnaire-9 Score 0 12/25/2022 Housing Stability Answer Date Recorded What is your housing situation today? I have elbert mtez 04/25/[address] you [...] Description 05/03/2025 11:15 AM EDT Office Visit [facility] MED & PEDS 505 [place] [address] Rosalind Cardoso FNP 505 [place] [address] documented as of this encounter Visit Diagnoses [...] hyperglycemia, with long-term current use of insulin ([facility]) Type 2 diabetes mellitus with foot ulcer, with long-term current use of insulin ([facility]) Pure hypercholesterolemia, unspecified Pain Generalized pain Type 2 diabetes mellitus with hyperglycemia ([facility]) Type 2 diabetes mellitus with other specified complication, unspecified whether remote computer terminal operator insulin use ([facility]) Fibromyalgia Unspecified myalgia and myositis documented in this encounter Additional Health Concerns Assessment Noted Time PHQ-9 Depression Total Score: 0 12/26/19 23 1:09 PM EDT documented as of this encounter Care Teams Soa Architect Relationship Specialty Start Date End Date Rosalind Cardoso FNP 230 [place] [address] PCP - General Family Medicine 04/28/21 Barron Wetzel MD [address] [facility] 200 [place] [address] Nephrology 01/15/25 Madeline Yo [address] [place] [address] 3rd [place] [address] Cardiology 01/15/25 [employer] 01/05/25 documented as of this encounter
--- OUTSIDE RECORDS SUMMARY | 2025-03-11 13:10 | XMS_ITS | Encounter Summary ---
Author Organization [employer] Address [address] [place] [address] 7 [place] [address] Care Team Providers Care Gas Appliance Repairer Name Role Phone Rosalind Cardoso Primary Care Provider [phone] Barron Wetzel MD Unavailable [phone] Madeline Yo Unavailable Encounter Details Date Type Department Care Team (Late st Contact Info) Description 02/14/2024 Orders Only [facility] CHC MED & PEDS 505 [place], [place] [phone] Rosalind Cardoso FNP [address] [place], [place] [phone] Type 2 diabetes mellitus with stage 3 [...] [facility] MED & PEDS 505 [place] [address] Rosalind Cardoso FNP [address] [place] [address] documented as of this encounter Visit Diagnoses [...] as of this encounter Care Teams Gas Appliance Repairer Relationship Specialty Start Date End Date Rosalind Cardoso FNP [address] [place] [address] PCP - General Family Medicine 04/28/21 Barron Wetzel MD [address] [facility] 200 [place] [address] Nephrology 01/15/25 Madeline Yo [address] [place] [address] Drive 3rd [place] [address] Cardiology 01/15/25 [employer] 01/05/25 documented as of this encounter
--- OUTSIDE RECORDS SUMMARY | 2025-03-11 13:10 | XMS_ITS | Encounter Summary ---
Author Organization [employer] Address [address] [place] [address] 7 [place] [address] Care Team Providers Care Seal Delivery Vehicle Officer Name Role Phone Rosalind Cardoso Primary Care Provider [phone] Barron Wetzel MD Unavailable [phone] Madeline Yo Unavailable Encounter Details Date Type Department Care Team (Late st Contact Info) Description 04/10/2024 Orders Only [facility] CHC MED & PEDS 505 [place], [place] [phone] Rosalind Cardoso FNP [address] [place], [place] [phone] Type 2 diabetes mellitus with stage 3 [...] [facility] MED & PEDS 505 [place] [address] Rosalind Cardoso FNP [address] [place] [address] documented as of this encounter Visit Diagnoses [...] documented as of this encounter Care Teams Seal Delivery Vehicle Officer Relationship Specialty Start Date End Date Rosalind Cardoso FNP [address] [place] [address] PCP - General Family Medicine 04/28/21 Barron Wetzel MD [address] [facility] 200 [place] [address] Nephrology 01/15/25 Madeline Yo [address] [place] [address] Drive 3rd [place] [address] Cardiology 01/15/25 [employer] 01/05/25 documented as of this encounter
--- OUTSIDE RECORDS SUMMARY | 2025-03-11 13:10 | XMS_ITS | Encounter Summary ---
Author Organization [employer] Address [address] [place] [address] 7 [place] [address] Care Team Providers Care Audio Video Technician Name Role Phone Rosalind Cardoso Primary Care Provider [phone] Barron Wetzel MD Unavailable [phone] Madeline Yo Unavailable Encounter Details Date Type Department Care Team (Late st Contact Info) Description 04/17/2024 Orders Only [facility] MEDICINE [address] [place] [address] Rosalind Cardoso FNP [address] [place], [place] [phone] Type 2 diabetes mellitus with stage 3 [...] [facility] 505 [place] [address] Rosalind Cardoso FNP 505 [place] [address] documented as of this encounter Visit Diagnoses Diagnosis Type 2 diabetes mellitus with stage 3 chronic kidney disease, with long-term current use of insulin, unspecified whether stage 3a or 3b CKD ([facility]/HCC) Myalgia Unspecified myalgia and myositis documented in this encounter Additional Health Concerns Assessment Noted Time PHQ-9 Depression Total Score: 0 12/26/19 23 1:09 PM EDT documented as of this encounter Care Teams Audio Video Technician Relationship Specialty Start Date End Date Rosalind Cardoso FNP [address] [place] [address] PCP - General Family Medicine 04/28/21 Barron Wetzel MD 100 [facility] 200 [place] [address] Nephrology 01/15/25 Madeline Yo [address] 3rd [place] [address] Cardiology 01/15/25 [employer] 01/05/25 documented as of this encounter
--- OUTSIDE RECORDS SUMMARY | 2025-03-11 13:10 | XMS_ITS | Encounter Summary ---
Author Organization [employer] Address [address] [place] [address] 7 [place] [address] Care Team Providers Care Anatomy And Physiology Instructor Name Role Phone Rosalind Cardoso Primary Care Provider [phone] Barron Wetzel MD Unavailable [phone] Madeline Yo Unavailable Encounter Details Date Type Department Care Team (Late st Contact Info) Description 02/28/2024 Orders Only [facility] CHC MED & PEDS 505 [place], [place] [phone] Rosalind Cardoso FNP 505 [place], [place] [phone] Type 2 diabetes mellitus with stage 3 [...] [facility] MED & PEDS 505 [place] [address] Rosalind Cardoso FNP 505 [place] [address] documented as of this encounter Visit Diagnoses [...] documented as of this encounter Care Teams Anatomy And Physiology Instructor Relationship Specialty Start Date End Date Rosalind Cardoso FNP [address] [place] [address] PCP - General Family Medicine 04/28/21 Barron Wetzel MD [address] [facility] 200 [place] [address] Nephrology 01/15/25 Madeline Yo [address] [place] [address] Drive 3rd [place] [address] Cardiology 01/15/25 [employer] 01/05/25 documented as of this encounter
--- OUTSIDE RECORDS SUMMARY | 2025-03-11 13:10 | XMS_ITS | Encounter Summary ---
Author Organization [employer] Address [address] [place] [address] 7 [place] [address] Care Team Providers Care Electronic Security Specialist Name Role Phone Rosalind Cardoso Primary Care Provider [phone] Barron Wetzel MD Unavailable [phone] Madeline Yo Unavailable Encounter Details Date Type Department Care Team (Late st Contact Info) Description 04/24/2024 Orders Only [facility] CHC MED & PEDS 505 [place], [place] [phone] Rosalind Cardoso FNP 505 [place], [place] [phone] Type 2 diabetes mellitus with stage 3 [...] [facility] MED & PEDS 505 [place] [address] Rosalind Cardoso FNP 505 [place] [address] documented as of this encounter Visit Diagnoses [...] documented as of this encounter Care Teams Electronic Security Specialist Relationship Specialty Start Date End Date Rosalind Cardoso FNP [address] [place] [address] PCP - General Family Medicine 04/28/21 Barron Wetzel MD [address] [facility] 200 [place] [address] Nephrology 01/15/25 Madeline Yo [address] [place] [address] Drive 3rd [place] [address] Cardiology 01/15/25 [employer] 01/05/25 documented as of this encounter
--- OUTSIDE RECORDS SUMMARY | 2025-03-11 13:10 | XMS_ITS | Encounter Summary ---
Author Organization [employer] Address [address] [place] [address] 7 [place] [address] Care Team Providers Care Belt Puncher Name Role Phone Rosalind Cardoso Primary Care Provider Barron Wetzel MD Unavailable [phone] Madeline Yo Unavailable Encounter Details Date Type Department Care Team (Late st Contact Info) Description 12/27/2022 Abstract [facility] MEDICINE 230 [place] [address] Rosalind Cardoso FNP [address] [place], [place] [phone] Social History Tobacco Use Types Packs/Day Years [...] Description 05/03/2025 11:15 AM EDT Office Visit [facility] CHC MED & PEDS [address] [place] [address] Rosalind Cardoso FNP [address] [place] [address] documented as of this encounter Procedures Procedure Name Priority Date/Time Associated Diagnosis Comments MAMMOGRAPHY Routine 11/23/2022 2:56 PM EDT documented in this encounter Results * Hm Mammography (11/23/2022 2:56 PM EDT) Mammogram Birads 1 Anatomical Region Laterality Modality Other Narrative 11/23/2022 2:56 PM EDT Recommended routine annual screening Historical Provider HEALTH MAINTENANCE Final Result documented in this encounter Visit Diagnoses Not on filedocumented in this encounter Additional Health Concerns Assessment Noted Time PHQ-9 Depression Total Score: 0 12/26/19 23 1:09 PM EDT documented as of this encounter Care Teams Belt Puncher Relationship Specialty Start Date End Date Rosalind Cardoso FNP 230 [place] [address] PCP - General Family Medicine 04/28/21 Barron Wetzel MD [address] [facility] 200 [place] [address] Nephrology 01/15/25 Madeline Yo [address] [place] [address] 3rd [place] [address] Cardiology 01/15/25 [employer] 01/05/25 documented as of this encounter
--- OUTSIDE RECORDS SUMMARY | 2025-03-11 13:10 | XMS_ITS | Encounter Summary ---
Author Organization [employer] Address [address] [place] [address] 7 [place] [address] Care Team Providers Care Budget Record Clerk Name Role Phone Rosalidn Cardoso Primary Care Provider Barron Wetzel MD Unavailable [phone] Madeline Yo Unavailable Encounter Details Date Type Department Care Team (Late st Contact Info) Description 02/21/2024 Orders Only [facility] MEDICINE 230 [place] [address] Rosalind Cardoso FNP [address] [place], [place] [phone] Type 2 diabetes mellitus with stage 3 [...] Description 05/03/2025 11:15 AM EDT Office Visit [facility] MED & PEDS 505 [place] [address] Rosalind Cardoso FNP 505 [place] [address] documented as of this encounter Visit Diagnoses Diagnosis Type 2 diabetes mellitus with stage 3 chronic kidney disease, with long-term current use of insulin, unspecified whether stage 3a or 3b CKD ([facility]/HCC) Myalgia Unspecified myalgia and myositis documented in this encounter Additional Health Concerns Assessment Noted Time PHQ-9 Depression Total Score: 0 12/26/19 23 1:09 PM EDT documented as of this encounter Care Teams Budget Record Clerk Relationship Specialty Start Date End Date Rosalind Cardoso FNP 230 [place] [address] PCP - General Family Medicine 04/28/21 Barron Wetzel MD 100 [facility] [address] [place] [address] Nephrology 01/15/25 Madeline Yo [address]rd [place] [address] Cardiology 01/15/25 [email or web address] 01/05/25 documented as of this encounter
--- OUTSIDE RECORDS SUMMARY | 2025-03-11 13:10 | XMS_ITS | Encounter Summary ---
Author Organization [employer] Address [address] [place] [address] 7 [place] [address] Care Team Providers Care Spooler Operator Automatic Name Role Phone Rosalind Cardoso Primary Care Provider [phone] Barron Wetzel MD Unavailable [phone] Madeline Yo Unavailable Encounter Details Date Type Department Care Team (Late st Contact Info) Description 03/13/2024 Orders Only [facility] CHC MED & PEDS 505 [place], [place] [phone] Rosalind Cardoso FNP 505 [place], [place] [phone] Type 2 diabetes mellitus with stage 3 [...] the past 12 months, has t he [employer] gas, oil or water company threatened to [...] 11:15 AM EDT Office Visit [facility] MED & PEDS [address] [place] [address] Rosalind Cardoso, TAMY 505 [place] [address] documented as of this encounter Procedures Procedure [...] Protein 1.25(H) < or = 0.50 mg/dL [facility] Blood Venous blood specimen / Unknown 05/29/2024 2:18 PM EST 05/29/2024 2:18 PM EST Rosalind MORELOS LAB BLOOD ORDERABLES Final Res ult [facility] [address] [place] [address] [phone] documented in this encounter Visit Diagnoses Diagnosis Type 2 diabetes mellitus with stage 3 chronic kidney disease, with long-term current use of insulin, unspecified whether stage 3a or 3b CKD (CMS/HCC) Primary hypertension Unspecified essential hypertension Stage 3b chronic kidney disease (CMS/HCC) 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 ([facility]/HCC) documented in this encounter Additional Health Concerns Assessment Noted Time PHQ-9 Depression Total Score: 0 12/26/19 23 1:09 PM EDT documented as of this encounter Care Teams Spooler Operator Automatic Relationship Specialty Start Date End Date Rosalind Cardoso FNP [address] [place] [address] PCP - General Family Medicine 04/28/21 Barron Wetzel MD [address] [address] Nephrology 01/15/25 Madeline Yo [address] [place] [address] 3rd [place] [address] Cardiology 01/15/25 [employer] 01/05/25 documented as of this encounter
--- OUTSIDE RECORDS SUMMARY | 2025-03-11 13:10 | XMS_ITS | Encounter Summary ---
Author Organization [employer] Address [address] [place] [address] 7 [place] [address] Care Team Providers Care Sr Community Manager Name Role Phone Rosalind Cardoso Primary Care Provider [phone] Barron Wetzel MD Unavailable [phone] Madeline Yo Unavailable Encounter Details Date Type Department Care Team (Late st Contact Info) Description 05/15/2024 Orders Only [facility] MEDICINE 230 [place] [address] Rosalind Cardoso FNP [address] [place], [place] [phone] Type 2 diabetes mellitus with stage 3 [...] 11:15 AM EDT Office Visit [facility] MED & PEDS 505 [place] [address] Rosalind Cardoso FNP 505 [place] [address] documented as of this encounter Visit Diagnoses Diagnosis Type 2 diabetes mellitus with stage 3 chronic kidney disease, with long-term current use of insulin, unspecified whether stage 3a or 3b CKD ([facility]/HCC) Myalgia Unspecified myalgia and myositis documented in this encounter Additional Health Concerns Assessment Noted Time PHQ-9 Depression Total Score: 0 12/26/19 23 1:09 PM EDT documented as of this encounter Care Teams Sr Community Manager Relationship Specialty Start Date End Date Rosalind Cardoso FNP [address] [place] [address] PCP - General Family Medicine 04/28/21 Barron Wetzel MD 100 [facility] 200 [place] [address] Nephrology 01/15/25 Madeline Yo [address]rd [place] [address] Cardiology 01/15/25 [employer] 01/05/25 documented as of this encounter
--- OUTSIDE RECORDS SUMMARY | 2025-03-11 13:10 | XMS_ITS | Encounter Summary ---
Author Organization [employer] Address [address] [place] [address] 7 [place] [address] Care Team Providers Care Medical Apparatus Model Maker Name Role Phone Rosalind Cardoso Primary Care Provider [phone] Barron Wetzel MD Unavailable [phone] Madeline Yo Unavailable Encounter Details Date Type Department Care Team (Late st Contact Info) Description 07/17/2024 Orders Only [facility] [address] [place], [place] [phone] Rosalind Cardoso FNP [address] [place], [place] [phone] Type 2 diabetes mellitus with stage 3 [...] [facility] MED & PEDS [address] [place] [address] Rosalind Cardoso, TAMY [address] [place] [address] documented as of this encounter Procedures Procedure [...] Sedimentation Rate 50(H) 0 - 20 MM/HR [facility] Comment:Patients with polycy themia and many hemoglobin abnormalitiesmay have depressed sed rates whereas patients with anemiamay have elevated sed rates. Blood Venous blood specimen / Unknown 08/04/2024 10:17 AM EST 08/04/2024 10:17 AM EST Rosalind Phalen [facility] LAB BLOOD ORDERABLES Final Res ult Performing Organization Address City/[facility]/ZIP Co de Phone Number [facility] [address] [place] [phone] * Magnesium (08/04/2024 10:17 AM EST) Pathologist [facility] Magnesium 2.3 1.6 - 2.6 mg/dL [facility] Blood Venous blood specimen / Unknown 08/04/2024 10:17 AM EST 08/04/2024 10:17 AM EST Rosalind Phalen [facility] LAB BLOOD ORDERABLES Final Res ult Performing Organization Address City/[facility]/ZIP Co de Phone Number [facility] [address] [place] [phone] * (ABNORMAL) Comprehensive Metabolic Panel (08/04/2024 10:17 AM EST) Sodium 134(L) 135 - 145 mmol/L [facility] Potassium 4.1 3.3 - 5.1 mmol/L [facility] Chloride 100 96 - 108 mmol/L [facility] Carbon Dioxide 27 22 - 29 mmol/L [facility] Anion Gap 11(L) 12 - 20 [facility] Urea Nitrogen (BUN) 50(H) 9 - 16 mg/dL [facility] Creatinine, Serum 1.56(H) 0.5 - 1.4 mg/dL [facility] Estimated Glomerular Filt Rate 34 [facility] Comment:Chronic Kidney Disea se: Estimated GFR < 60 mL/min/[id number] Kidney Disease: Estimated GFR < 15 mL/min/1.73m2 Glucose 265(H) 60 - 115 mg/dL [facility] Calcium 9.1 8.4 - 10.2 mg/dL [facility] Bilirubin, Total 0.2 0.0 - 1.0 mg/dL [facility] Aspartate Amino Transferase 16 5 - 31 U/L [facility] Alanine Aminotransferase <6 0 - 31 U/L [facility] Total Protein 7.6 6.5 - 8.0 g/dL [facility] Albumin Level 3.6 3.5 - 5.0 g/dL [facility] Alkaline Phosphatase 101 39 - 117 U/L [facility] Blood Venous blood specimen / Unknown 08/04/2024 10:17 AM EST 08/04/2024 10:17 AM EST us Rosalind Cardoso [employer] LAB BLOOD ORDERABLES Final Res ult [facility] [address] [place] [phone] [phone] documented in this encounter Visit Diagnoses Diagnosis Type 2 diabetes mellitus with stage 3 chronic kidney disease, with long-term current use of insulin, unspecified whether stage 3a or 3b CKD ([facility]/HCC) Primary hypertension Unspecified essential hypertension Stage 3b chronic kidney disease ([facility]/HCC) 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 ([facility]/HCC) documented in this encounter Additional Health Concerns Assessment Noted Time PHQ-9 Depression Total Score: 0 12/26/19 23 1:09 PM EDT documented as of this encounter Care Teams Medical Apparatus Model Maker Relationship Specialty Start Date End Date Rosalind Cardoso FNP [address] [place] [address] PCP - General Family Medicine 04/28/21 Barron Wetzel MD 100 [facility] BI [facility] [address] [place] [phone] Nephrology 01/15/25 Madeline Yo [address] [place] [address] 3rd [place] [address] Cardiology 01/15/25 [employer] 01/05/25 documented as of this encounter
--- OUTSIDE RECORDS SUMMARY | 2025-03-11 13:10 | XMS_ITS | Encounter Summary ---
Author Organization [employer] Address [address] [place] [address] 7 [place] [address] Care Team Providers Care Sheet Rocker Name Role Phone Rosalind Cardoso Primary Care Provider [phone] Barron Wetzel MD Unavailable [phone] Madeline Yo Unavailable Encounter Details Date Type Department Care Team (Late st Contact Info) Description 03/20/2024 Orders Only [facility] MEDICINE [address] [place] [address] Rosalind Cardoso FNP [address] [place], [place] [phone] Type 2 diabetes mellitus with stage 3 [...] [facility] MED & PEDS [address] [place] [address] Rosalind Cardoso FNP [address] [place] [address] documented as of this encounter Visit Diagnoses Diagnosis Type 2 diabetes mellitus with stage 3 chronic kidney disease, with long-term current use of insulin, unspecified whether stage 3a or 3b CKD ([facility]/HCC) Myalgia Unspecified myalgia and myositis documented in this encounter Additional Health Concerns Assessment Noted Time PHQ-9 Depression Total Score: 0 12/26/19 23 1:09 PM EDT documented as of this encounter Care Teams Sheet Rocker Relationship Specialty Start Date End Date Rosalind Cardoso FNP [address] [place] [address] PCP - General Family Medicine 04/28/21 Barron Wetzel MD 100 [facility] 200 [place] [address] Nephrology 01/15/25 Madeline Yo [address]rd [place] [address] Cardiology 01/15/25 [employer] 01/05/25 documented as of this encounter
--- OUTSIDE RECORDS SUMMARY | 2025-03-11 13:10 | XMS_ITS | Encounter Summary ---
Author Organization [employer] Address [address] [place] [address] 7 [place] [address] Care Team Providers Care Splitter Machine Name Role Phone Rosalind Cardoso Primary Care Provider Barron Wetzel MD Unavailable [phone] Madeline Yo Unavailable Encounter Details Date Type Department Care Team (Late st Contact Info) Description 05/29/2024 Orders Only [facility] [address] [place] [address] Rosalind Cardoso FNP [address] [place], [place] [phone] Type 2 diabetes mellitus with stage 3 [...] [facility] [address] [place] [address] Rosalind Cardoso, TAMY [address] [place] [address] documented as of this encounter Procedures Procedure [...] 2:18 PM EST) Triglycerides 266(H) <150 mg/dL [facility] Comment:Desirable Triglyceri de: less than 150 mg/dLBorderline High Triglyceride 150-199 mg/dLHigh Triglyceride: 200-499 mg/dLVery High Triglyceride: greater than or equal to 5OO mg/dL Cholesterol 250(H) <200 mg/dL [facility] Comment:Desirable Cholestero l: less than 200 mg/dLBorderline High Cholesterol: 200-239 mg/dLHigh Cholesterol: greater than 239 mg/dL LDL Cholesterol Calculated 161(H) <100 mg/dL [facility] Comment:Desirable LDL: less than 100 mg/dLNear Optimal/Above Optimal LDL: 110- 129 mg/dLBorderline High LDL: 130-159 mg/dLHigh LDL: 160-189 mg/dLVery High LDL: greater than or equal to 190 mg/dL HDL Cholesterol 36(L) >40 mg/dL [facility] Comment:Desirable HDL: great er than 40 mg/dL Note: This HDL assay may give artificially low results in patients with liver disease. 05/29/2024 2:18 PM EST 05/29/2024 2:18 PM EST us Generic External Data Provider LAB BLOOD ORDERAB LES Final Result [facility] [address] [place], [place] [phone] * (ABNORMAL) Comprehensive Metabolic Panel (05/29/2024 2:18 PM EST) Sodium 134(L) 135 - 145 mmol/L [facility] Potassium 4.0 3.3 - 5.1 mmol/L [facility] Chloride 99 96 - 108 mmol/L [facility] Carbon Dioxide 26 22 - 29 mmol/L [facility] Anion Gap 13 12 - 20 [facility] Urea Nitrogen (BUN) 41(H) 9 - 16 mg/dL [facility] Creatinine, Serum 1.49(H) 0.5 - 1.4 mg/dL [facility] Estimated Glomerular Filt Rate 36 [facility] Comment:Chronic Kidney Disea se: Estimated GFR < 60 mL/min/1.02s8Rchnmh Kidney Disease: Estimated GFR < 15 mL/min/1.73m2 Glucose 370(HH) 60 - 115 mg/dL [facility] Comment:Critical value for t est(s): GLUR Results called to concepcion back by: KJ Gallegos Person calling: HAKEEMRICKY Date:05/29/24Time:1558 Calcium 9.5 8.4 - 10.2 mg/dL [facility] Bilirubin, Total 0.3 0.0 - 1.0 mg/dL [facility] Aspartate Amino Transferase 65(H) 5 - 31 U/L [facility] Alanine Aminotransferase 64(H) 0 - 31 U/L [facility] Total Protein 6.9 6.5 - 8.0 g/dL [facility] Albumin Level 3.4(L) 3.5 - 5.0 g/dL [facility] Alkaline Phosphatase 146(H) 39 - 117 U/L [facility] 05/29/2024 2:18 PM EST 05/29/2024 2:18 PM EST us Generic External Data Provider LAB BLOOD ORDERAB LES Final Result [facility] [address] [place] [phone] * (ABNORMAL) CBC auto differential (05/29/2024 2:18 PM EST) White Blood Count 12.0(H) 4.8 - 10.8 X10*3/uL [facility] Red Blood Count 4.01(L) 4.20 - 5.50 X10*6/uL [facility] Hemoglobin 7.8(L) 12.0 - 16.0 g/dl [facility] Hematocrit 25.3(L) 37.0 - 47.0 % [facility] Mean Corpuscular Volume 63.1(L) 80.0 - 98.0 fL [facility] Mean Corpuscular Hemoglobin 19.5(L) 27.0 - 33.0 pg [facility] Mean Corpuscular HGB Conc 30.8(L) 31.0 - 35.0 g/dl [facility] Red Cell Distribution Width 15.3 11.0 - 16.0 % [facility] Platelet Count 312 160 - 400 X10*3/uL [facility] Mean Platelet Volume 10.4 9.4 - 12.3 fL [facility] Neutrophils Percent Auto 71.1 45 - 73 % [facility] Imm Gran Pct Auto 0.9(H) 0.0 - 0.4 % [facility] Lymphocytes Percent Auto 18.6(L) 20 - 40 % [facility] Monocytes Percent Auto 6.4 2 - 11 % [facility] Eosinophils Percent Auto 2.6 0 - 4 % [facility] Basophils Percent Auto 0.4 0 - 2 % [facility] NRBC Pct Auto 0.2 0.0 - 0.2 /100WBC [facility] Neutrophils Absolute Auto 8.6(H) 2.0 - 8.3 x10*3/uL [facility] Imm Gran Abs Auto 0.11(H) 0.00 - 0.03 X10*3/uL [facility] Lymphocytes Absolute Auto 2.2 1.2 - 4.9 X10*3/uL [facility] Monocytes Absolute Auto 0.8 0.1 - 1.2 X10*3/uL [facility] Eosinophils Absolute Auto 0.3 0.0 - 0.4 X10*3/uL [facility] Basophils Absolute Auto 0.1 0.0 - 0.2 X10*3/uL [facility] NRBC Abs Auto 0.020(H) 0.0 - 0.012 X10*3/uL [facility] 05/29/2024 2:18 PM EST 05/29/2024 2:18 PM EST us Generic External Data Provider LAB BLOOD ORDERAB LES Final Result [facility] [address] [place] [address] [phone] documented in this encounter Visit Diagnoses [...] documented as of this encounter Care Teams Splitter Machine Relationship Specialty Start Date End Date Rosalind Cardoso FNP [address] [place] [address] PCP - General Family Medicine 04/28/21 Barron Wetzel MD 100 [facility] 200 [place] [address] Nephrology 01/15/25 Madeline Yo [address] [place] [address] Drive 3rd [place] [address] Cardiology 01/15/25 [employer] 01/05/25 documented as of this encounter
--- OUTSIDE RECORDS SUMMARY | 2025-03-11 13:10 | XMS_ITS | Encounter Summary ---
Author Organization [employer] Address [address] [place] [address] 7 [place] [address] Care Team Providers Care High Risk Case Manager Name Role Phone Rosalind Cardoso Primary Care Provider [phone] Barron Wetzel MD Unavailable [phone] Madeline Yo Unavailable Encounter Details Date Type Department Care Team (Late st Contact Info) Description 04/03/2024 Orders Only [facility] MEDICINE [address] [place] [address] Rosalind Cardoso FNP [address] [place], [place] [phone] Type 2 diabetes mellitus with stage 3 [...] [facility] [address] [place] [address] Rosalind Cardoso FNP [address] [place] [address] documented as of this encounter Visit Diagnoses Diagnosis Type 2 diabetes mellitus with stage 3 chronic kidney disease, with long-term current use of insulin, unspecified whether stage 3a or 3b CKD ([facility]/HCC) Myalgia Unspecified myalgia and myositis documented in this encounter Additional Health Concerns Assessment Noted Time PHQ-9 Depression Total Score: 0 12/26/19 23 1:09 PM EDT documented as of this encounter Care Teams High Risk Case Manager Relationship Specialty Start Date End Date Rosalind Cardoso FNP [address] [place] [address] PCP - General Family Medicine 04/28/21 Barron Wetzel MD 100 [facility] 200 [place] [address] Nephrology 01/15/25 Madeline Yo [address]rd [place] [address] Cardiology 01/15/25 [employer] 01/05/25 documented as of this encounter
--- OUTSIDE RECORDS SUMMARY | 2025-03-11 13:10 | XMS_ITS | Encounter Summary ---
Author Organization [employer] Address [address] [place] [address] 7 [place] [address] Care Team Providers Care Balloon Tester Name Role Phone Rosalind Cardoso Primary Care Provider Barron Wetzel MD Unavailable [phone] aMdeline Yo Unavailable Encounter Details Date Type Department Care Team (Late st Contact Info) Description 01/31/2024 Orders Only [facility] [address] [place], [place] [phone] Rosalind Cardoso FNP [address] [place], [place] [phone] Type 2 diabetes mellitus with stage 3 [...] the past 12 months, has t he [employer] gas, oil or water company threatened to [...] [facility] [address] [place] [address] Rosalind Cardoso, TAMY [address] [place] [address] documented as of this encounter Procedures Procedure Name Priority Date/Time Associated Diagnosis Comments SED RATE BY MODIFIED WESTERGREN Routine 05/29/2024 2:18 PM EST Type 2 diabetes mellitus with stage 3 chronic kidney disease, with long-term current use of insulin, unspecified whether stage 3a or 3b CKD (CMS/HCC) Primary hypertension Stage 3b chronic kidney disease ([facility]/HCC) 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
--- OUTSIDE RECORDS SUMMARY | 2025-03-11 13:10 | XMS_ITS | Clinical Summary ---
Author Organization [employer] Address [address] [place] [address] 7 [place] [address] Care Team Providers Care Opthalmic Tech Name Role Phone Teoedna Rosalind MORELOS Primary Care Provider [phone] Barron Wetzel MD Unavailable [phone] Madeline Yo Unavailable Allergies Active Allergy Reactions Criticality Noted Date [...] 23 Active sodium chloride (Deep Sea Nasal Roxana) 0.65 % nasal spray USE 1 SPRAY [...] BEDTIME 90 tablet 3 05/29/20 24 Active pantoprazole (ProtoNix) 40 MG EC tablet Take 1 tablet (40 mg) by mouth Once daily. 90 tablet 3 05/29/20 24 Active cholecalciferol (Vitamin D-3) 25 MCG (1000 UT) tablet Take 1 tablet (25 mcg) by mouth Once daily. 90 tablet 3 05/29/20 24 Active metoprolol succinate XL (Toprol [...] HOURS DIRECTED 30 patch 05/29/20 24 Active bacitracin 500 UNIT/GM ointment Apply topically 2 times daily. Apply to affected area daily 30 g 06/09/20 24 Active Blood Glucose Monitoring Suppl kitIndications:T ype 2 diabetes mellitus with foot ulcer, with long-term current use of insulin ([facility]) Use to check Blood glucose values three times dailyUse to check Blood glucose values three times daily 1 kit 1 08/03/19 25 Active Blood Pressure kit Use to check blood pressure daily and when symptomatic. 1 kit 08/03/19 25 Active Alcohol Swabs (SM Alcohol Prep) 70 % padsIndications: Type 2 diabetes mellitus with foot ulcer, with long-term current use of insulin ([facility]) TEST BLOOD SUGAR THREE TIMES DAILY 100 each 08/03/19 25 Active FreeStyle lancets 1 each by Other route 3 times daily. Use as instructed 100 each 08/03/19 25 Active pen needle 31G x 5 mm misc Inject under the skin 3 times daily. Use as instructed 100 each 3 08/03/19 25 Active Repatha SureClick 140 MG/ML injection 08/10/19 25 Active furosemide (Lasix) 40 MG tablet Take 2 tablets by mouth Once per day. 07/02/20 24 Active insulin glargine (Lantus SoloStar) 100 UNIT/ML penIndications:T ype 2 diabetes mellitus with hyperglycemia ([facility]) Inject 45 units once daily as directed. 3 mL 11/27/19 25 Active lidocaine-priloc daren (Emla) 2.5-2.5 % creamIndications :Other chronic osteomyelitis of left foot ([facility]) APPLY TO THE AFFECTED AREA(S) ONCE DAILY NEEDED FOR PAIN 30 g 11 11/27/19 25 Active clotrimazole (Lotrimin) 1 % cream APPLY TOPICALLY TWICE DAILY FOR 28 DAYS 30 g 12/18/19 25 Active glucose blood ([employer] Verio) test stripIndications :Type 2 diabetes mellitus with stage 3 chronic kidney disease, with long-term current use of insulin, unspecified whether stage 3a or 3b CKD ([facility]) USE DIRECTED TO TEST BLOOD SUGAR THREE TIMES DAILY 100 strip 11 12/22/19 25 Active albuterol 108 (90 Base) MCG/ACT inhaler Inhale 2 puffs every 6 (six) hours if needed for wheezing or shortness of breath. 18 g 01/16/20 25 026 Active lisinopril 10 MG tablet Take 1 tablet (10 mg) by mouth Once per day. 30 tablet 3 01/22/20 25 026 Active magnesium oxide (Mag-Ox) 400 MG tabletIndication s:Type 2 diabetes mellitus with other specified complication, unspecified whether fci insulin use ([facility]) TAKE 1 TABLET BY MOUTH THREE TIMES DAILY 270 tablet 01/23/20 25 Active amitriptyline (Elavil) 25 MG tabletIndication s:Fibromyalgia TAKE 1 TABLET BY MOUTH AT BEDTIME 90 tablet 01/23/20 25 Active Acetaminophen Extra Strength 500 MG tabletIndication s:Low back pain at multiple sites TAKE 1 TO 2 TABLETS BY MOUTH EVERY 8 HOURS NEEDED (for pain) 100 tablet 3 02/18/20 25 Active Acetaminophen Extra Strength 500 MG tabletIndication s:Low back pain at multiple sites TAKE 1 TO 2 TABLETS BY MOUTH EVERY 8 HOURS NEEDED (for pain) 100 tablet 3 09/12/19 25 025 Discontinued Active Problems Problem Noted Date Diagnosed Date Coronary artery disease 01/15/2025 Overview (01/15/2025): September 2022: CTA coronary arteries demonstrated 70% stenosis of the mid LAD between the 2nd and 3rd diagonal, RCA dominant with mid 50-60% stenosis. Recommended cardiac cath, although pt deferred. Med management: high-dose statin, Zetia, and aspirin Assessment & Plan (01/15/2025 4:53 PM EDT): - Would benefit from A/C in the home to help prevent temp extremes. Please see further explanation/support for intervention in the HPI. Screening for colorectal cancer 11/26/2024 Assessment & Plan (11/26/2024 1:58 PM EDT): We discussed about screening options including colonoscopy which she declined and agree to have Cologuard, and gave her information regarding the testing Encounter for screening mamm ogram for malignant neoplasm of breast 11/26/2024 Assessment & Plan (11/26/2024 2:15 PM EDT): Up-to-date, next 1 due next month, will order mammogram At high risk for osteoporosis 11/26/2024 Assessment & Plan (11/26/2024 2:14 PM EDT): Due to CKD + postmenopausal. Order with BMD Cervicalgia 08/11/2023 Overview (08/11/2023): Evaluation through [facility] - MRI cervical spine completed Jul 2023 unremarkable Referral to [facility] Pain Management 08/11/23 Fibromyalgia 05/14/2023 Overview (12/10/2023): Previously followed by [facility] Neurology, Dr. Jolly Continues with amitriptyline 25mg [...] BKA performed by Dr. Borden 09/01/22 at -Indication: gangrene and ulcers of the left foot, charcot foot, and OM Assessment & Plan (01/15/2025 4:49 PM EDT): Mainly wheelchair-bound due to inability to use the prosthetics secondary to leg swelling (worsens over summer) DME rx for Transport Chair and Wheelchair (repair or replace) provided 01/15/25. Also sent to HIM to scan into record. Referral to [facility] ED for eval of lightweight electric transfer chair Assessment & Plan (11/26/2024 2:41 PM EDT): Mainly wheelchair-bound due to inability to use the prosthetics secondary to leg swelling and his balance Referred to PT and OT to help with prosthetics and improved balance/gait Advised to move to a first floor apartment or one with reliable handicap access as her current apartment does not have a working elevator most of the times which has limited patient's ability to be compliant with appointments (she has to crawl up and down the stairs to leave and acces the apartment) Assessment & Plan (10/03/2023 12:46 PM EDT): Plan for updated prosthetic to accommodate the increased swelling Assessment & Plan (01/31/2023 6:27 PM EDT): Currently completing at home physical therapy, referral for physical therapy at [facility] Assessment & Plan (12/26/2022 8:59 AM EDT): [...] -Cont Metoprolol succ 100mg daily -Following with [facility] Cards Assessment & Plan (11/05/2022 9:48 PM [...] Overview (03/16/2024): -Optometry: N[facility] November 2021 -Dental: [facility] dental clinic -Pap: reports last 2019 and believes results were normal, referred to UroGYN -Mammo: 11/29/23 BIRADS 1 -Colorectal CA screening: iFOBT neg 12/18/21, due Assessment & Plan (10/03/2023 12:48 PM EDT): Complex care management/medical binder completed today and reviewed with patient -Pt continues to decline all vaccines Assessment & Plan (06/21/2023 9:30 PM EST): -Optometry: N[facility] November 2021 -Dental: [facility] dental clinic -Pap: reports last 2019 and believes results were normal, referred to UroGYN -Colorectal CA screening: iFOBT neg 12/18/21, due December 2022 Complex care management/medical binder completed today with patient. Medical binder to be picked up next week when elevator in apartment functioning. Assessment & Plan (11/05/2022 9:38 PM EDT): -Optometry: NABORNovember 2021 -Dental: [facility] dental clinic -Pap: reports last 2019 and believes results were normal, referred to UroGYN -Colorectal CA screening: iFOBT neg 12/18/21, due December 2022 -Mammogram: BIRADS 3 on 01/16/22, due Jul 2022 -Outstanding vaccines: influenza, Tdap, Shingrix, PCV20, COVID CCA Fuse Spooler Osi: plan to schedule follow up appts the following specialists: [facility] Nephrology [facility] Endo C [facility] Cards [facility] UroGYN Assessment & Plan (06/20/2022 6:06 PM EST): -Optometry: NABORNovember 2021 -Dental: [facility] dental clinic -Pap: reports last 2019 and believes results were normal, referred to UroGYN -Colorectal CA screening: iFOBT neg 12/18/21, due December 2022 -Mammogram: BIRADS 3 on 01/16/22, due Jul 2022 -Outstanding vaccines: influenza, Tdap, Shingrix, PCV20, COVID Generalized abdominal pain 06/20/2022 Assessment & Plan (06/20/2022 6:31 PM EST): -Followed by SANDRA, thi morris for cholithiasis (4 weeks after stopping Plavix) -Try to locate results of most recent abdominal ultrasound to review with patient -Plan to schedule colonoscopy/endoscopy to r/o GI source of anemia/blood loss once eligible (needs to be 6-8 weeks after stopping Plavix) Stage 3b chronic kidney disease 06/14/2022 Overview (01/15/2025): Followed by Nephrology - Dr. Wetzel/LESLYE Williamson 11/20/23: US renal doppler ordered LESLYE Williamson. Impression: 1. No evidence to suggest renal artery stenosis. 2. Mildly echogenic kidneys with normal volume consistent with diagnosis of medical renal disease. LUIS December 2024 with serum creatinine increase to 2.24. Assessment & Plan (12/26/2022 8:55 AM EDT): Followed by Dr. Wetzel Per last consult note in December 2022, plan to recheck UACR, and start Kerendia if elevated. Avoid SGLT2-inhibitors Pt requesting to add microalbumin to routine blood work [id number], ordered Irritable bowel syndrome 09/21/2021 Peripheral vascular disease 09/02/2021 Overview (10/03/2023): -s/p Angioplasty, by Dr. Vigil in 10/2021 -Plavix DC Apr 2022, continues on lifelong aspirin -Currently followed by Dr. Borden -09/25/23: US duplex venous right ordered by Dr. Borden - no evidence of a deep venous thrombosis involving the right lower extremity. Lincoln cyst. Assessment & Plan (01/15/2025 4:52 PM EDT): - DME rx provided for deep tissue massage Assessment & Plan (08/01/2022 7:29 AM EST): [...] h diabetic chronic kidney disease 08/14/2021 Overview (01/15/2025): Lab Results Component Value Date HGBA1C 13.5 (A) 11/26/2024 HGBA1C 14.8 (A) 08/03/2024 HGBA1C 10.5 (A) 10/02/2023 HGBA1C 8.2 (H) 09/26/2022 HGBA1C 11.3 (H) 08/22/2021 -Previously followed by [facility], plan to start with [facility] CDTM -Cont current medication regimen Lantus 40 units at bedtime -Movement/exercise as tolerated Previous medications: DC by renal 12/30 d/t worsening eGFR) -(DC 09/01 d/t cardiac hx) Avoid SGLT2 inhibitors given hx of BKA Assessment & Plan (01/15/2025 1:54 PM EDT): - Time did not permit for further discussion of T2DM today. However, she is currently only using lantus for BG control given discontinuation of other medications with her comorbid conditions. She may be a good candidate for GLP1 given limitations with using other drug classes. - Scheduled to meet with [facility] next week for further discussion of BG control Assessment & Plan (11/26/2024 1:57 PM EDT): Uncontrolled, increase Lantus to 40 units, patient should reach out to [facility] clinic to reschedule appointment. I will follow-up with her in the afternoon on her blood sugar to see her level after using her medications Continue metformin same dose for now and follow-up GFR, if it drops below 30 metformin should probably be discontinued, should consider Jardiance and or GLP due to risk of heart disease (untreated CAD). We extensively discussed about importance of tight control of diabetes in order to decrease cardiovascular morbidity mortality. Follow-up with PCP in 4 weeks Follows up with ophthalmology on January 2025, notes are to follow She has left BKA/right foot exam is normal with no DM neuropathy. Declined PCV today Dental prophylaxis is up-to-date Assessment & Plan (10/03/2023 12:44 PM EDT): Pt declines adjustment in medications at this time, encouraged to closely monitor BG and nutrition at home. Assessment & Plan (12/12/2022 9:35 AM EDT): Previous medications: Jardiance discontinued due to concern of SE and hx BKA, continue to monitor BG at home DME [...] EST): -A1c 8.0 on 05/01/22 -Followed by [facility] Endo -Continue on current regimen: -metformin 1000mg BID -Jardiance 10mg daily -Lantus 40 units at bedtime -Actos 15mg daily -Movement/exercise as tolerated Beta thalassemia trait 10/09/2018 Second degree uterine prolapse 10/09/2018 Urinary incontinence 10/09/2018 Overview (12/10/2023): Following with [facility] UroGYN for hx urinary incont and uterine prolapse Assessment & Plan (12/10/2023 11:19 AM EDT): DME request for the following items on 12/10/23 Disposable XL extra-absorbant (heavy) incontinence pads (for wheelchair) Reusable XL extra-absorbant incontinence pads (for bed) Gloves (size medium) Hypercholesterolemia 08/12/2017 Overview (01/15/2025): Continues with atorvastatin 80mg nightly Continues with exetimibe 10mg daily Lab Results Component Value Date CHOL 311 (H) 10/02/2024 CHOL 250 (H) 05/29/2024 CHOL 293 (H) 09/10/2023 TRIG 323 (H) 10/02/2024 TRIG 266 (H) 05/29/2024 TRIG 224 (H) 09/10/2023 TRIG 124 09/26/2022 HDL 35 (L) 10/02/2024 HDL 36 (L) 05/29/2024 HDL 33 (L) 09/10/2023 LDLCHOLCAL 212 (H) 10/02/2024 LDLCHOLCAL 161 (H) 05/29/2024 LDLCHOLCAL 216 (H) 09/10/2023 -continue lifestyle modification Microcytic anemia 08/12/2017 Assessment & Plan (10/03/2023 12:45 PM EDT): Following with [facility]c, plan to repeat labs through PCP [id number]: CBC, CMP, magnesium, sed rate, CRP, microalbumin Continues with Procrit while Hemoglobin < 10 Assessment & Plan (05/14/2023 12:02 PM EST): Following with [facility], plan to repeat labs today through PCP Q 2 weeks: CBC, CMP, magnesium, sed rate, CRP, microalbumin Assessment & Plan (12/26/2022 9:00 AM EDT): Previously followed by [facility] Heme/Onc, plan to repeat labs today through PCP Q 2 weeks: CBC, CMP, magnesium, sed rate, CRP, microalbumin Assessment & Plan (11/05/2022 9:50 PM EDT): Previously followed by [facility] Heme/Onc, plan to repeat labs today through PCP. Ordered. Osteoarthritis of both knees 08/12/2017 Primary hypertension 03/16/2016 Overview (01/15/2025): Following with [facility] Cards - Dr. Middleton/Srinath, CHANDU. September 2022: CTA coronary arteries demonstrated 70% stenosis of the mid LAD between the 2nd and 3rd diagonal, RCA dominant with mid 50-60% stenosis. . Plan for cardiac cath, although pt deferred. October 2023: CXR ordered for SOB, demonstrated enlarged cardiac silhouette, suspected mild CHF Continue the following med regimen: Chlorthalidone 25mg daily Metoprolol 100mg daily Isosorbide mononitrate 60mg nightly Lisinopril 10mg nightly (Rx Cards) Furosemide (Rx Cards) Previous meds: (DC by renal 2/2 lower extremity edema) Assessment & Plan (01/15/2025 4:56 PM EDT): - Elevated today in office, although pt reports she has not yet taken her BP medications. Advised to take meds when she gets home and to f/up if home readings cont to be elevated. ED precautions. - Discussed home VNA to assist with med management, although pt declines at this time Assessment & Plan (11/26/2024 1:46 PM EDT): Uncontrolled today, reportedly as patient had not had any of the medications, she's grally asymptomatic. Continue chlorthalidone, metoprolol, isosorbide, amlodipine and furosemide. She reportedly off lisinopril for at least 1 week after seeing cardiology, cardiology note is to follow. Will follow-up BMP/K and obtain cardiology note from last OV, will restart lisinopril if there is no contraindication. I will call her back in the afternoon to check on her BP readings after taking her meds. Follow-up with PCP in 1 month Assessment & Plan (09/18/2023 8:53 PM EDT): Reviewed lifestyle interventions and ED precautions Resolved Problems Problem Noted Date Diagnosed Date Resolved Date Preventative health care 11/26/202405/2025 Assessment & Plan (11/26/2024 2:45 PM EDT): Discussed with patient re increase fresh fruit and vegetable intake. Counseled re moderate exercise as tolerated, with upper body stretches up to 20min/d Patient feels safe at home. She should be able to attend adult day programs and continue with current medications. PAP smear: Overdue, will refer to [employer] as she has uterine prolapse as well. Mammogram: Up-to-date, will order next mammogram to be done with PMD Bone density test: Overdue, will order Eye exam: Reportedly up-to-date, will obtain last ophthalmology notes CRC screen: Order Cologuard Lipids/FBS: Up-to-date, follow-up with PCP Vaccinations: Overdue, declined Td, PCV or COVID boosters. She is aware of high risk of complications with preventable diseases Dental visit: Up-to-date, next one due March 2025. I gave her ACP information to fill it out, sign it and drop it to medical records Type 2 diabetes mellitus with hyperglycemia 11/26/2024 01/15/2025 Assessment & Plan (11/26/2024 2:14 PM EDT): Patient did not have Lantus or any p.o. medications today + she is fasting. She will take Lantus 40 units as soon as she gets home we will call her back in the afternoon, just to get blood work today Chronic kidney disease, stage 2 (mild) 12/19/2022 [...] or cuboid bones. Pt was seen by [facility] ID and initiated on PO doxy x 6 weeks, with possible need for surgical intervention. Following with [facility] Vascular - Dr. Vigil - and podiatry. 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 being followed by ID and vascular Encounters Date Type Department Care Team Description 03/11/2025 Orders Only GENERIC EXTERNAL DATA DEPARTMENT Provider, Generic External Data 02/26/2025 Orders Only GENERIC EXTERNAL DATA DEPARTMENT Provider, Generic External Data 02/17/2025 Refill [facility] [address] [place] [address] Rosalind Cardoso FNP Low back pain at multiple sites 02/11/2025 Orders Only GENERIC EXTERNAL DATA DEPARTMENT Provider, Generic External Data 01/29/2025 Telephone [facility] [address] [place] [address] Amira Ayoub PharmD 01/25/2025 Telephone [facility] [address] [place] [address] Rosalind Carodso FNP FYI 01/25/2025 Orders Only [facility] [address] [place] [address] Waleska Mccoy MD Type 2 diabetes mellitus with stage 3 chronic kidney disease, with long-term current use of insulin, unspecified whether stage 3a or 3b CKD (CMS/HCC) (Primary Dx) 01/22/2025 1:00 PM EDT Telemedicine [facility] [address] [place] [address] Amira Ayoub, [place] Type 2 diabetes mellitus with stage 3 chronic kidney disease, with long-term current use of insulin, unspecified whether stage 3a or 3b CKD (CMS/HCC) (Primary Dx); Primary hypertension 01/22/2025 Telephone [facility] [address] [place] [phone] Rosalind Cardoso FNP Nurse Triage 01/22/2025 Telephone [facility] [address] [place] [address] Amira Ayoub PharmD 01/22/2025 Travel 01/21/2025 1:00 PM EDT Office Visit [facility] [address] [place] [phone] Gala Amado DO Acute nonintractable headache, unspecified headache type (Primary Dx) 01/21/2025 Refill [facility] [address] [place] [address] Rosalind Cardoso FNP Type 2 diabetes mellitus with other specified complication, unspecified whether fci insulin use (CMS/HCC); Fibromyalgia 01/21/2025 Travel 01/19/2025 Telephone [facility] [address] [place] [address] Rosalind Cardoso FNP Nurse Triage 01/19/2025 Telephone [facility] [address] [place] [phone] Rosalind Cardoso FNP Durable Medical Equipment 01/15/2025 11:15 AM EDT Office Visit [facility] [address] [place] [address] Rosalind Cardoso FNP Coronary artery disease involving [place] coronary artery of [place] heart, unspecified whether angina present (Primary Dx); Type 2 diabetes mellitus with stage 3 chronic kidney disease, with long-term current use of insulin, unspecified whether stage 3a or 3b CKD ([facility]); Primary hypertension; Hypercholesterolemia; Stage 3b chronic kidney disease ([facility]); Swelling of lower extremity; 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 ([facility]); Impaired mobility and ADLs; Peripheral vascular disease ([facility]); History of bronchitis 01/15/2025 Travel 01/14/2025 Telephone [facility] [address], [place] [phone] Rosalind Cardoso FNP Call Back Request 01/11/[address] [address] Rosalind Cardoso FNP FYI 01/06/[address] [address] Rosalind Cardoso FNP Call Back Request 01/01/2025 Orders Only GENERIC EXTERNAL DATA DEPARTMENT Provider, Generic External Data 12/25/[address] [address] Rosalind Cardoso FNP Referral 12/24/2024 Orders Only GENERIC EXTERNAL DATA DEPARTMENT Provider, Generic External Data 12/22/2024 Telephone [facility] [address] [place] [phone] Rosana Olvera MD 12/22/2024 Results Follow-Up [facility] [address], [place] [phone] Rosalind Cardoso FNP Comprehensive Metabolic Panel, Magnesium, Sed Rate by Modified Westergren, Additional followed-up results: 2 12/21/2024 Telephone [facility] [address] [place] [phone] Walker Bruce MD 12/21/2024 Results Follow-Up [facility] [address], [place] [phone] Rosalind Cardoso FNP Comprehensive Metabolic Panel, Magnesium, Sed Rate by Modified [place]gren, Additional followed-up results: 2 12/18/2024 Telephone [facility] [address] [place] [address] Rosalind Cardoso FNP Call Back Request (/) 12/18/2024 Orders Only GENERIC EXTERNAL DATA DEPARTMENT Provider, Generic External Data 12/17/2024 Refill [facility] [address] [place] [address] Rosalind Cardoso FNP from Last 3 Months Social History Tobacco [...] Sign Reading Time Taken Comments Blood Pressure 150/78 01/21/2025 1:21 PM EDT Pulse 73 01/21/2025 12:52 PM EDT Temperature 36.3 C (97.3 F) 01/21/2025 12:52 PM EDT Respiratory Rate 17 01/21/2025 12:52 PM EDT Oxygen Saturation 98% 01/21/2025 12:52 PM EDT Inhaled Oxygen Concentration - - Weight 87.1 kg (192 lb) 01/15/2025 10:20 AM EDT Height 152.4 cm (5') 01/15/2025 10:20 AM EDT Body Mass Index 37.5 01/15/2025 10:20 AM EDT Plan of Treatment Upcoming Encounters Date Type Department Care Team (Late st Contact Info) Description 05/03/2025 11:15 AM EDT Office Visit [facility] [address] [place] [address] Rosalind Cardoso FNP [address] [place] [address] Health Maintenance Due Date Last Done Comments [...] - Risk 60-74 years 1-dose series) 2023 SDOH Screening 08/01/2024 08/01/2023 Mammogram 11/28/2024 11/29/2023, 11/05, 11/23/2022, Additional history exists Diabetes: Hemoglobin A1C 02/26/2025 025, 08/03/2024, 10/02/2023, Additional history exists COVID-19 Vaccine ( season) 2025 Influenza Vaccine (#1) 2025 Depression Screening 08/03/2025 08/03/2024, 08/03/19 Disability Screening 08/03/2025 08/03/2024 Diabetes: Foot Exam 11/26/2025 11/26/2024, 11/26/2024, 11/26/2024, Additional history exists Tobacco Screening 01/21/2026 01/21/2025 Lipid Panel 02/11/2026 02/11/2025, 09/06, 05/29/2024, Additional history exists HIV Screening Completed 08/22/2021 [...] AUTO DIFFERENTIAL Routine 03/11/2025 11:58 AM EDT BASIC METABOLIC PANEL Routine 02/26/2025 11:02 AM EDT CBC WITH AUTO DIFFERENTIAL Routine 02/26/2025 11:02 AM EDT PROTHROMBIN TIME-INR Routine 02/26/2025 11:02 AM EDT LIPID PANEL, STANDARD Routine 02/11/2025 11:32 AM EDT CBC WITH AUTO DIFFERENTIAL Routine 02/11/2025 11:32 AM EDT POCT GLUCOSE Routine 01/15/2025 10:19 AM EDT Type 2 diabetes mellitus with stage 3 chronic kidney disease, with long-term current use of insulin, unspecified whether stage 3a or 3b CKD (CMS/HCC) SLIDE REVIEW Routine 01/01/2025 10:31 AM EDT CBC WITH AUTO DIFFERENTIAL Routine 01/01/2025 10:31 AM EDT BASIC METABOLIC PANEL Routine 12/24/2024 10:18 AM EDT B TYPE NATRIURETIC PEPTIDE (BNP) Routine 12/24/2024 10:18 AM EDT CBC WITH AUTO DIFFERENTIAL Routine 12/24/2024 10:18 AM EDT BASIC METABOLIC PANEL Routine 12/24/2024 10:18 AM EDT Stage 3b chronic kidney disease (CMS/HCC) PROTHROMBIN TIME-INR Routine 12/24/2024 10:18 AM EDT Type 2 diabetes mellitus with stage 3 chronic kidney disease, with long-term current use of insulin, unspecified whether stage 3a or 3b CKD (CMS/HCC) Primary hypertension Stage 3b chronic kidney disease (CMS/HCC) 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 (CMS/HCC) C-REACTIVE PROTEIN Routine 12/24/2024 10 :18 AM EDT Type 2 diabetes mellitus with stage 3 chronic kidney disease, with long-term current use of insulin, unspecified whether stage 3a or 3b CKD (CMS/HCC) Primary hypertension Stage 3b chronic kidney disease (CMS/HCC) 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 (CMS/HCC) CBC WITH AUTO DIFFERENTIAL Routine 12/21/2024 2:13 PM EDT Type 2 diabetes mellitus with stage 3 chronic kidney disease, with long-term current use of insulin, unspecified whether stage 3a or 3b CKD (CMS/HCC) Primary hypertension Stage 3b chronic kidney disease (CMS/HCC) 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 (CMS/HCC) COMPREHENSIVE METABOLIC PANEL Routine 12/21/2024 2:13 PM EDT Type 2 diabetes mellitus with stage 3 chronic kidney disease, with long-term current use of insulin, unspecified whether stage 3a or 3b CKD (CMS/HCC) Primary hypertension Stage 3b chronic kidney disease (CMS/HCC) 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 (CMS/HCC) PROTHROMBIN TIME-INR Routine 12/21/2024 2:13 PM EDT Type 2 diabetes mellitus with stage 3 chronic kidney disease, with long-term current use of insulin, unspecified whether stage 3a or 3b CKD (CMS/HCC) Primary hypertension Stage 3b chronic kidney disease (CMS/HCC) 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 (CMS/HCC) C-REACTIVE PROTEIN Routine 12/21/2024 2: 13 PM EDT Type 2 diabetes mellitus with stage 3 chronic kidney disease, with long-term current use of insulin, unspecified whether stage 3a or 3b CKD (CMS/HCC) Primary hypertension Stage 3b chronic kidney disease (CMS/HCC) 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 (CMS/HCC) MAGNESIUM Routine 12/21/2024 2:13 PM EDT Type 2 diabetes mellitus with stage 3 chronic kidney disease, with long-term current use of insulin, unspecified whether stage 3a or 3b CKD (CMS/HCC) Primary hypertension Stage 3b chronic kidney disease (CMS/HCC) 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 (CMS/HCC) CBC WITH AUTO DIFFERENTIAL Routine 12/18/2024 10:17 AM EDT COMPREHENSIVE METABOLIC PANEL Routine 12/18/2024 10:17 AM EDT Type 2 diabetes mellitus with stage 3 chronic kidney disease, with long-term current use of insulin, unspecified whether stage 3a or 3b CKD (CMS/HCC) Primary hypertension Stage 3b chronic kidney disease (CMS/HCC) 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 (CMS/HCC) PROTHROMBIN TIME-INR Routine 12/18/2024 10:17 AM EDT Type 2 diabetes mellitus with stage 3 chronic kidney disease, with long-term current use of insulin, unspecified whether stage 3a or 3b CKD (CMS/HCC) Primary hypertension Stage 3b chronic kidney disease (CMS/HCC) 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 (CMS/HCC) C-REACTIVE PROTEIN Routine 12/18/2024 10 :17 AM EDT Type 2 diabetes mellitus with stage 3 chronic kidney disease, with long-term current use of insulin, unspecified whether stage 3a or 3b CKD (CMS/HCC) Primary hypertension Stage 3b chronic kidney disease (CMS/HCC) 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 (CMS/HCC) SED RATE BY MODIFIED WESTERGREN Routine 12/18/2024 10:17 AM EDT Type 2 diabetes mellitus with stage 3 chronic kidney disease, with long-term current use of insulin, unspecified whether stage 3a or 3b CKD (CMS/HCC) Primary hypertension Stage 3b chronic kidney disease (CMS/HCC) 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 (CMS/HCC) MAGNESIUM Routine 12/18/2024 10:17 AM EDT Type 2 diabetes mellitus with stage 3 chronic kidney disease, with long-term current use of insulin, unspecified whether stage 3a or 3b CKD (CMS/HCC) Primary hypertension Stage 3b chronic kidney disease (CMS/HCC) 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 (CMS/HCC) POCT GLYCATED HEMOGLOBIN, TOTAL Routine 11/26/2024 9:32 [...] Maintenance Results * (ABNORMAL) CBC auto differential (03/11/2025 11:58 AM EDT) Only the most recent of7 resultswithin the time period is included. White Blood Count 8.7 4.8 - 10.8 X10*3/uL [facility] Red Blood Count 5.75(H) 4.20 - 5.50 X10*6/uL [facility] Hemoglobin 10.6(L) 12.0 - 16.0 g/dl [facility] Hematocrit 35.0(L) 37.0 - 47.0 % [facility] Mean Corpuscular Volume 60.9(L) 80.0 - 98.0 fL [facility] Mean Corpuscular Hemoglobin 18.4(L) 27.0 - 33.0 pg [facility] Mean Corpuscular HGB Conc 30.3(L) 31.0 - 35.0 g/dl [facility] Red Cell Distribution Width 17.8(H) 11.0 - 16.0 % [facility] Platelet Count 233 160 - 400 X10*3/uL [facility] Mean Platelet Volume TNP 9.4 - 12.3 fL [facility] Neutrophils Percent Auto 58.7 45 - 73 % [facility] Imm Gran Pct Auto 0.3 0.0 - 0.4 % [facility] Lymphocytes Percent Auto 31.0 20 - 40 % [facility] Monocytes Percent Auto 6.7 2 - 11 % [facility] Eosinophils Percent Auto 3.0 0 - 4 % [facility] Basophils Percent Auto 0.3 0 - 2 % [facility] NRBC Pct Auto 0.0 0.0 - 0.2 /100WBC [facility] Neutrophils Absolute Auto 5.1 2.0 - 8.3 x10*3/uL [facility] Imm Gran Abs Auto 0.03 0.00 - 0.03 X10*3/uL [facility] Lymphocytes Absolute Auto 2.7 1.2 - 4.9 X10*3/uL [facility] Monocytes Absolute Auto 0.6 0.1 - 1.2 X10*3/uL [facility] Eosinophils Absolute Auto 0.3 0.0 - 0.4 X10*3/uL [facility] Basophils Absolute Auto 0.0 0.0 - 0.2 X10*3/uL [facility] NRBC Abs Auto 0.000 0.0 - 0.012 X10*3/uL [facility] 03/11/2025 11:5 8 AM EDT 03/11/2025 11:58 AM EDT Generic External Data Provider LAB BLOOD ORDERAB LES Final Result Performing Organization Address City/State/[facility] Co de Phone Number [facility] [address] [place] [phone] * Prothrombin Time-INR (02/26/2025 11:02 AM EDT) Only the most recent of4 resultswithin the time period is included. Prothrombin Time 11.3 10.9 - 12.4 SEC [facility] INTERNATIONAL NORM RATIO 1.0 0.9 - 1.1 [facility] [...] mechanical prosthetic heart valves: 2.5 - 3.5 02/26/2025 11:0 2 AM EDT 02/26/2025 11:51 AM EDT us Generic External Data Provider LAB BLOOD ORDERAB LES Final Result Performing Organization Address [facility] Co de Phone Number [facility] [address] [place] [phone] * (ABNORMAL) Basic Metabolic Panel (02/26/2025 11:02 AM EDT) Only the most recent of3 resultswithin the time period is included. Sodium 138 135 - 145 mmol/L [facility] Potassium 4.0 3.3 - 5.1 mmol/L [facility] Chloride 102 96 - 108 mmol/L [facility] Carbon Dioxide 26 22 - 29 mmol/L [facility] Anion Gap 14 12 - 20 [facility] Urea Nitrogen (BUN) 56(H) 9 - 16 mg/dL [facility] Creatinine, Serum 1.90(H) 0.5 - 1.4 mg/dL [facility] Estimated Glomerular Filt Rate 27 [facility] Comment:Chronic Kidney Disea se: Estimated GFR < 60 mL/min/[id number] Kidney Disease: Estimated GFR < 15 mL/min/1.73m2 Glucose 260(H) 60 - 115 mg/dL [facility] Calcium 9.0 8.4 - 10.2 mg/dL [facility] 02/26/2025 11:0 2 AM EDT 02/26/2025 11:51 AM EDT Generic External Data Provider LAB BLOOD ORDERAB LES Final Result Performing Organization Address City/[facility]/ZIP Co de Phone Number [facility] [address] [place] [phone] * (ABNORMAL) Lipid Panel, Standard (02/11/2025 11:32 AM EDT) Triglycerides 189(H) <150 mg/dL [facility] Comment:Desirable Triglyceri de: less than 150 mg/dLBorderline High Triglyceride 150-199 mg/dLHigh Triglyceride: 200-499 mg/dLVery High Triglyceride: greater than or equal to 5OO mg/dL Cholesterol 214(H) <200 mg/dL [facility] Comment:Desirable Cholestero l: less than 200 mg/dLBorderline High Cholesterol: 200-239 mg/dLHigh Cholesterol: greater than 239 mg/dL LDL Cholesterol Calculated 152(H) <100 mg/dL [facility] Comment:Desirable LDL: less than 100 mg/dLNear Optimal/Above Optimal LDL: 110- 129 mg/dLBorderline High LDL: 130-159 mg/dLHigh LDL: 160-189 mg/dLVery High LDL: greater than or equal to 190 mg/dL HDL Cholesterol 25(L) >40 mg/dL [facility] Comment:Desirable HDL: great er than 40 mg/dL Note: This HDL assay may give artificially low results in patients with liver disease. 02/11/2025 11:3 2 AM EDT 02/11/2025 11:32 AM EDT us Generic External Data Provider LAB BLOOD ORDERAB LES Final Result [facility] [address] [place] [phone] * (ABNORMAL) POCT glucose manually resulted (01/15/2025 10:19 AM EDT) Glucose Blood, POC 224(A) 60 - 200 mg/dL QC Media Lot # Comment:[id number] Lot# Expiration Date Comment:05/06/2025 Blood Capillary blood specimen / Unknown 01/15/2025 10:19 AM EDT us Rosalind Cardoso SUPPLEMENTAL MANAGER POINT OF CARE TEST ENTER/EDIT ORDERABLES Final Result * Slide Review (01/01/2025 10:31 AM EDT) Slide Review VERIFIED [facility] 01/01/2025 10:3 1 AM EDT 01/01/2025 10:31 AM EDT us Generic External Data Provider LAB BLOOD ORDERAB LES Final Result Performing Organization Address [facility] de Phone Number [facility] [address] [place] [phone] * (ABNORMAL) C-reactive Protein (12/24/2024 10:18 AM EDT) Only the most recent of3 resultswithin the time period is included. C Reactive Protein 1.07(H) < or = 0.50 mg/dL [facility] Blood Venous blood specimen / Unknown 12/24/2024 10:18 AM EDT 12/24/2024 10:18 AM EDT Rosalind Cardoso SUPPLEMENTAL MANAGER LAB BLOOD ORDERABLES Final Res ult Performing Organization Address [facility] de Phone Number [facility] [address] [place] [phone] * (ABNORMAL) B Type Natriuretic Peptide (BNP) (12/24/2024 10:18 AM EDT) B Type Natriuretic Peptide 2,573(H) <100 pg/mL [facility] 12/24/2024 10:1 8 AM EDT 12/24/2024 10:18 AM EDT Generic External Data Provider LAB BLOOD ORDERAB LES Final Result Performing Organization Address [facility] de Phone Number [facility] [address] [place] [phone] * Magnesium (12/21/2024 2:13 PM EDT) Only the most recent of2 resultswithin the time period is included. Magnesium 1.9 1.6 - 2.6 mg/dL [facility] Blood Venous blood specimen / Unknown 12/21/2024 2:13 PM EDT 12/21/2024 4:02 PM EDT us Rosalind Cardoso SUPPLEMENTAL MANAGER LAB BLOOD ORDERABLES Final Res ult [facility] [address] [place] [phone] * (ABNORMAL) Comprehensive Metabolic Panel (12/21/2024 2:13 PM EDT) Only the most recent of2 resultswithin the time period is included. Sodium 136 135 - 145 mmol/L [facility] Potassium 3.8 3.3 - 5.1 mmol/L [facility] Chloride 101 96 - 108 mmol/L [facility] Carbon Dioxide 26 22 - 29 mmol/L [facility] Anion Gap 13 12 - 20 [facility] Urea Nitrogen (BUN) 37(H) 9 - 16 mg/dL [facility] Creatinine, Serum 1.54(H) 0.5 - 1.4 mg/dL [facility] Estimated Glomerular Filt Rate 34 [facility] Comment:Chronic Kidney Disea se: Estimated GFR < 60 mL/min/[id number] Kidney Disease: Estimated GFR < 15 mL/min/1.73m2 Glucose 450(HH) 60 - 115 mg/dL [facility] Comment:Critical value for t est(s): GLUR Results called to and readback by: Person calling: [employer] Date: 12/21/24 Time:1753 Calcium 8.8 8.4 - 10.2 mg/dL [facility] Bilirubin, Total 0.3 0.0 - 1.0 mg/dL [facility] Aspartate Amino Transferase 19 5 - 31 U/L [facility] Alanine Aminotransferase 25 0 - 31 U/L [facility] Total Protein 6.4(L) 6.5 - 8.0 g/dL [facility] Albumin Level 3.4(L) 3.5 - 5.0 g/dL [facility] Alkaline Phosphatase 119(H) 39 - 117 U/L [facility] Blood Venous blood specimen / Unknown 12/21/2024 2:13 PM EDT 12/21/2024 4:02 PM EDT Rosalind Cardoso SUPPLEMENTAL MANAGER LAB BLOOD ORDERABLES Final Res ult Performing Organization Address [facility] Co de Phone Number [facility] [address] [place] [phone] * (ABNORMAL) Sed Rate by Modified Westergren (12/18/2024 10:17 AM EDT) Erythrocyte Sedimentation Rate 25(H) 0 - 20 MM/HR [facility] Comment:Patients with polycy themia and many hemoglobin abnormalitiesmay have depressed sed rates whereas patients with anemiamay have elevated sed rates. Blood Venous blood specimen / Unknown 12/18/2024 10:17 AM EDT 12/18/2024 10:17 AM EDT Rosalind Cardoso SUPPLEMENTAL MANAGER LAB BLOOD ORDERABLES Final Res ult Performing Organization Address [facility] Co de Phone Number [facility] [address] [place] [phone] * (ABNORMAL) POCT HGB A1C (11/26/2024 9:32 AM EDT) Hemoglobin A1C 13.5(A) 4.0 - 6.0 % QC Media Lot # [id number] Lot# Expiration Date Blood 11/26/2024 9:3 2 AM EDT Rosana Olvera MD POINT OF CARE TEST ENTER /EDIT ORDERABLES Final Result * BI Mammogram Screening Tomosynthesis Bilateral (11/29/2023 2:40 PM EDT) Anatomical Region Laterality Modality Breast Bilateral Mammography 11/29/2023 2:40 PM EDT Narrative 12/27/2023 3:26 PM EDT [facility] [address] [place] [address] Mammography Report Signed Patient: Mitra Parish MR#: [id number] : 1965 Acct:[id number] Age/Sex: 58 / F ADM Date: 11/29/23 Loc: MAMMO Attending Dr: Rosalind MORELOS Ordering Physician: Rosalind Cardoso Results: 1Negat moncho Date of Service: 11/29/23 Follow Up: 1 Year From Orig inal Mammogram Procedure(s): MM tomosynthesis screening BI Accession Number(s): [id number] cc: Rosalind Cardoso EXAMINATION: MM SCREENING DIGITAL [...] in OV> 12/27/23 1522 DD/ 1440 TD/TT: Wax Pumper: Procedure Note Donotuseinterpreter, Image - [facility] [address] [place] [address] Mammography Report Signed Patient: Carolyn ParishR#: [id number] : 1965Acct:[id number] Age/Sex: 58 / FADM Date: 11/29/23 Loc: MAMMO Attending Dr: Rosalind MORELOS Ordering Physician: Phalen,Rosalind FNPResults: 1Negat moncho Date of Service: 11/29/23Follow Up: 1 Year From Orig ina Mammogram Procedure(s): MM tomosynthesis screening BI Accession Number(s): [id number] cc: Rosalind Cardoso SUPPLEMENTAL MANAGER EXAMINATION: MM SCREENING DIGITAL BREAST TOMOSYNTHESIS, BILATERAL [...] in OV> 12/27/23 1522 DD/ 1440 TD/TT: Wax Pumper: Rosalind Cardoso SUPPLEMENTAL MANAGER IMG BI PROCEDURES Final Result * HEPATITIS C AB W/REFL TO HCV RNA, QN, PCR (08/22/2021 8:22 AM EST) HEPATITIS C ANTIBODY NON-REACT MONCHO NON-REACT MONCHO [facility] INDEX 0.02 <1.00 [facility] Comment: HCV antibody was non-reactive. There is no laboratory evidence of HCV infection. In most cases, no further action is required. However, if recent HCV exposure is suspected, a test for HCV RNA (test code 45627) is suggested. For additional information please refer to http://education.TrackingPoint/faq/VSB35c1 (This link is being provided for informational/ educational purposes only.) 08/22/2021 8:22 AM EST Rosalind MORELOS HISTORICAL/NON ORDERABLE LABS Final Result Performing Organization Address [facility] Co de Phone Number [facility] [address] * HIV 1/2 ANTIGEN/ANTIBODY,FOURTH GENERATION W/RFL (08/22/2021 8:22 AM EST) HIV-1/2 ANTIGEN AND ANTIBODIES, 4TH GENERATION W/ REFLEX NON-REACT MONCHO NON-REACT MONCHO [facility] Comment: HIV-1 antigen and HIV-1/HIV-2 antibodies were not detected. There is no laboratory evidence of HIV infection. PLEASE NOTE: This information has been disclosed to you from records whose confidentiality may be protected by state law. If your state requires such protection, then the state law prohibits you from making any further disclosure of the information without the specific written consent of the person to whom it pertains, or as otherwise permitted by law. A general authorization for the release of medical or other information is NOT sufficient for this purpose. For additional information please refer to http://education.[employer].Digilab/faq/JFF027 (This link is being provided for informational/ educational purposes only.) The performance of this assay has not been clinically validated in patients less than 2 years old. 08/22/2021 8:22 AM EST Rosalind MORELOS LAB BLOOD ORDERABLES Final Res ult Performing Organization Address City/[facility] Co de Phone Number [facility] [address] from Last 3 Months or Most Recently Relevant to Health Maintenance Insurance [facility] ONE CARE < 65 [place] [id number] Care Teams Opthalmic Tech Relationship Specialty Start Date End Date Rosalind Cardoso FNP [address] [place] [phone] PCP - General Family Medicine 04/28/21 Barron Wetzel MD [address] [facility] [address] [place] [phone] Nephrology 01/15/25 Madeline Yo [address] [place] [address] [address] [place] [address] Cardiology 01/15/25 [employer] 01/05/25
--- OUTSIDE RECORDS SUMMARY | 2025-03-11 13:11 | XMS_ITS | Encounter Summary ---
Author Organization [employer] Address [address] [place] [address] 7 [place] [address] Care Team Providers Care Press Box Custodian Name Role Phone Rosalind Cardoso Primary Care Provider [phone] Barron Wetzel MD Unavailable [phone] Madeline Yo Unavailable Encounter Details Date Type Department Care Team (Late st Contact Info) Description 11/20/2024 Orders Only [facility]EDS [address] [place], [place] [phone] Rosalind Cardoso FNP [address] [place], [place] [phone] Type 2 diabetes mellitus with stage 3 [...] Description 05/03/2025 11:15 AM EDT Office Visit [facility] MED & PEDS [address] [place] [address] Rosalind Cardoso, TAMY [address] [place] [address] documented as of this encounter Procedures Procedure Name Priority Date/Time Associated Diagnosis Comments CBC WITH AUTO DIFFERENTIAL Routine 12/21/2024 2:13 PM EDT Type 2 diabetes mellitus with stage 3 chronic kidney disease, with long-term current use of insulin, unspecified whether stage 3a or 3b CKD (CMS/HCC) Primary hypertension Stage 3b chronic kidney disease (CMS/HCC) 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 (CMS/HCC) COMPREHENSIVE METABOLIC PANEL Routine 12/18/2024 10:17 AM EDT Type 2 diabetes mellitus with stage 3 chronic kidney disease, with long-term current use of insulin, unspecified whether stage 3a or 3b CKD (CMS/HCC) Primary hypertension Stage 3b chronic kidney disease (CMS/HCC) 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 (CMS/HCC) SED RATE BY MODIFIED WESTERGREN Routine 11/26/2024 9:01 AM EDT Type 2 diabetes mellitus with stage 3 chronic kidney disease, with long-term current use of insulin, unspecified whether stage 3a or 3b CKD (CMS/HCC) Primary hypertension Stage 3b chronic kidney disease (CMS/HCC) 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 (CMS/HCC) PROTHROMBIN TIME-INR Routine 11/26/2024 9:01 AM EDT Type 2 diabetes mellitus with stage 3 chronic kidney disease, with long-term current use of insulin, unspecified whether stage 3a or 3b CKD (CMS/HCC) Primary hypertension Stage 3b chronic kidney disease (CMS/HCC) 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 (CMS/HCC) C-REACTIVE PROTEIN Routine 11/26/2024 9: 01 AM EDT Type 2 diabetes mellitus with stage 3 chronic kidney disease, with long-term current use of insulin, unspecified whether stage 3a or 3b CKD (CMS/HCC) Primary hypertension Stage 3b chronic kidney disease (CMS/HCC) 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 (CMS/HCC) MAGNESIUM Routine 11/26/2024 9:01 AM EDT Type 2 diabetes mellitus with stage 3 chronic kidney disease, with long-term current use of insulin, unspecified whether stage 3a or 3b CKD (CMS/HCC) Primary hypertension Stage 3b chronic kidney disease (CMS/HCC) 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 (CMS/HCC) documented in this encounter Results * (ABNORMAL) CBC auto differential (12/21/2024 2:13 PM EDT) White Blood Count 8.5 4.8 - 10.8 X10*3/uL [facility] Red Blood Count 4.66 4.20 - 5.50 X10*6/uL [facility] Hemoglobin 9.0(L) 12.0 - 16.0 g/dl [facility] Hematocrit 31.0(L) 37.0 - 47.0 % [facility] Mean Corpuscular Volume 66.5(L) 80.0 - 98.0 fL [facility] Mean Corpuscular Hemoglobin 19.3(L) 27.0 - 33.0 pg [facility] Mean Corpuscular HGB Conc 29.0(L) 31.0 - 35.0 g/dl [facility] Red Cell Distribution Width 18.9(H) 11.0 - 16.0 % [facility] Platelet Count 313 160 - 400 X10*3/uL [facility] Mean Platelet Volume 11.7 9.4 - 12.3 fL [facility] Neutrophils Percent Auto 67.0 45 - 73 % [facility] Imm Gran Pct Auto 0.5(H) 0.0 - 0.4 % [facility] Lymphocytes Percent Auto 21.9 20 - 40 % [facility] Monocytes Percent Auto 7.8 2 - 11 % [facility] Eosinophils Percent Auto 2.2 0 - 4 % [facility] Basophils Percent Auto 0.6 0 - 2 % [facility] NRBC Pct Auto 0.9(H) 0.0 - 0.2 /100WBC [facility] Neutrophils Absolute Auto 5.7 2.0 - 8.3 x10*3/uL [facility] Imm Gran Abs Auto 0.04(H) 0.00 - 0.03 X10*3/uL [facility] Lymphocytes Absolute Auto 1.9 1.2 - 4.9 X10*3/uL [facility] Monocytes Absolute Auto 0.7 0.1 - 1.2 X10*3/uL [facility] Eosinophils Absolute Auto 0.2 0.0 - 0.4 X10*3/uL [facility] Basophils Absolute Auto 0.1 0.0 - 0.2 X10*3/uL [facility] NRBC Abs Auto 0.080(H) 0.0 - 0.012 X10*3/uL [facility] Blood Venous blood specimen / Unknown 12/21/2024 2:13 PM EDT 12/21/2024 4:02 PM EDT us Rosalind Cardoso TOP DYEING MACHINE TENDER LAB BLOOD ORDERABLES Final Res ult [facility] [address] [place], [place] [phone] * (ABNORMAL) Comprehensive Metabolic Panel (12/18/2024 10:17 AM EDT) Sodium 136 135 - 145 mmol/L [facility] Potassium 3.9 3.3 - 5.1 mmol/L [facility] Chloride 101 96 - 108 mmol/L [facility] Carbon Dioxide 27 22 - 29 mmol/L [facility] Anion Gap 12 12 - 20 [facility] Urea Nitrogen (BUN) 53(H) 9 - 16 mg/dL [facility] Creatinine, Serum 2.24(H) 0.5 - 1.4 mg/dL [facility] Estimated Glomerular Filt Rate 22 [facility] Comment:Chronic Kidney Disea se: Estimated GFR < 60 mL/min/1.29f0Wgseck Kidney Disease: Estimated GFR < 15 mL/min/1.73m2 Glucose 143(H) 60 - 115 mg/dL [facility] Calcium 9.1 8.4 - 10.2 mg/dL [facility] Bilirubin, Total 0.4 0.0 - 1.0 mg/dL [facility] Aspartate Amino Transferase 32(H) 5 - 31 U/L [facility] Alanine Aminotransferase 22 0 - 31 U/L [facility] Total Protein 6.7 6.5 - 8.0 g/dL [facility] Albumin Level 3.6 3.5 - 5.0 g/dL [facility] Alkaline Phosphatase 122(H) 39 - 117 U/L [facility] Blood Venous blood specimen / Unknown 12/18/2024 10:17 AM EDT 12/18/2024 10:17 AM EDT Rosalind Cardoso TOP DYEING MACHINE TENDER LAB BLOOD ORDERABLES Final Res ult Performing Organization Address [facility] Co de Phone Number [facility] [address] [place] [phone] * Prothrombin Time-INR (11/26/2024 9:01 AM EDT) Prothrombin Time 11.1 10.9 - 12.4 SEC [facility] INTERNATIONAL NORM RATIO 1.0 0.9 - 1.1 [facility] Comment:INTERNATIONAL NORMAL IZED RATIO [...] EDT 11/26/2024 11:04 AM EDT Rosalind Cardoso TOP DYEING MACHINE TENDER LAB BLOOD ORDERABLES Final Res ult Performing Organization Address [facility] Co de Phone Number [facility] [address] [place] [phone] * (ABNORMAL) C-reactive Protein (11/26/2024 9:01 AM EDT) C Reactive Protein 1.56(H) < or = 0.50 mg/dL [facility] Blood Venous blood specimen / Unknown 11/26/2024 9:01 AM EDT 11/26/2024 11:04 AM EDT us Rosalind Cardoso TOP DYEING MACHINE TENDER LAB BLOOD ORDERABLES Final Res ult Performing Organization Address City/[facility]/ZIP Co de Phone Number [facility] [address] [place] [phone] * (ABNORMAL) Sed Rate by Modified Westergren (11/26/2024 9:01 AM EDT) Erythrocyte Sedimentation Rate 48(H) 0 - 20 MM/HR [facility] Comment:Patients with polycy themia and many hemoglobin abnormalitiesmay have depressed sed rates whereas patients with anemiamay have elevated sed rates. Blood Venous blood specimen / Unknown 11/26/2024 9:01 AM EDT 11/26/2024 11:04 AM EDT Rosalind Cardoso TOP DYEING MACHINE TENDER LAB BLOOD ORDERABLES Final Res ult Performing Organization Address [facility] Co de Phone Number [facility] [address] [place] [phone] * Magnesium (11/26/2024 9:01 AM EDT) Pathologist [facility] Magnesium 2.2 1.6 - 2.6 mg/dL [facility] Blood Venous blood specimen / Unknown 11/26/2024 9:01 AM EDT 11/26/2024 11:04 AM EDT Rosalind Cardoso TOP DYEING MACHINE TENDER LAB BLOOD ORDERABLES Final Res ult Performing Organization Address [facility] Co de Phone Number [facility] [address] [place] [phone] documented in this encounter Visit Diagnoses Diagnosis Type 2 diabetes mellitus with stage 3 chronic kidney disease, with long-term current use of insulin, unspecified whether stage 3a or 3b CKD (CMS/HCC) Primary hypertension Unspecified essential hypertension Stage 3b chronic kidney disease ([facility]/HCC) 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 (CMS/HCC) documented in this encounter Additional Health Concerns Assessment Noted Time PHQ-9 Depression Total Score: 6 08/03/19 25 9:07 AM EST documented as of this encounter Care Teams Press Box Custodian Relationship Specialty Start Date End Date Rosalind Cardoso FNP [address] [place] [address] PCP - General Family Medicine 04/28/21 Barron Wetzel MD 100 [facility] [address] [place] [address] Nephrology 01/15/25 Madeline Yo [address] [place] [address] Drive 3rd [place] [address] Cardiology 01/15/25 [employer] 01/05/25 documented as of this encounter
--- OUTSIDE RECORDS SUMMARY | 2025-03-11 13:11 | XMS_ITS | Encounter Summary ---
Author Organization [employer] Address [address] [place] [address] 7 [place] [address] Care Team Providers Care Spa Manager/Esthetician Name Role Phone Rosalind Cardoso Primary Care Provider [phone] Barron Wetzel MD Unavailable [phone] Madeline Yo Unavailable Encounter Details Date Type Department Care Team (Late st Contact Info) Description 07/31/2024 Orders Only [facility] & PEDS [address] [place], [place] [phone] Rosalind Cardoso FNP [address] [place], [place] [phone] Type 2 diabetes mellitus with stage 3 [...] -2 Score 0 08/03/2024 9:07 AM Jyotsna Colilns [place] * Little interest or pleasure in [...] [facility] [address] [place] [address] Rosalind Cardoso FNP [address] [place] [address] documented as of this encounter Visit Diagnoses [...] documented as of this encounter Care Teams Spa Manager/Esthetician Relationship Specialty Start Date End Date Rosalind Cardoso FNP [address] [place] [address] PCP - General Family Medicine 04/28/21 Barron Wetzel MD [address] [facility] 200 [place] [address] Nephrology 01/15/25 Madeline Yo [address] [place] [address] Drive 3rd [place] [address] Cardiology 01/15/25 [employer] 01/05/25 documented as of this encounter
--- OUTSIDE RECORDS SUMMARY | 2025-03-11 13:11 | XMS_ITS | Encounter Summary ---
Author Organization [employer] Address [address] [place] [address] [address] [place] [place] [address] Care Team Providers Care State Pilot Name Role Phone Rosalind Cardoso Primary Care Provider [phone] Barron Wetzel MD Unavailable [phone] Madeline Yo Unavailable Reason for Visit * Reason Comments Med Refill Encounter Details Date Type Department Care Team (Late st Contact Info) Description 07/10/2022 Refill [facility] MED & PEDS [address] [place] [address] Rosalind Cardoso FNP [address] [place], [place] [phone] Primary hypertension; Type 2 diabetes mellitus with other specified complication, unspecified whether steep tender insulin use ([facility]) Social History Tobacco Use Types Packs/Day Years [...] Description 05/03/2025 11:15 AM EDT Office Visit [facility] PEDS [address] [place] [address] Rosalind Cardoso FNP [address] [place] [address] documented as of this encounter Visit Diagnoses Diagnosis Primary hypertension Unspecified essential hypertension Type 2 diabetes mellitus with other specified complication, unspecified whether steep tender insulin use ([facility]) documented in this encounter Care Teams State Pilot Relationship Specialty Start Date End Date Rosalind Cardoso FNP [address] [place] [address] PCP - General Family Medicine 04/28/21 Barron Wetzel MD 100 [facility] 200 [place] [address] Nephrology 01/15/25 Madeline Yo [address] [place] [address] 3rd [place] [address] Cardiology 01/15/25 [employer] 01/05/25 documented as of this encounter
--- OUTSIDE RECORDS SUMMARY | 2025-03-11 13:11 | XMS_ITS | Encounter Summary ---
Author Organization [employer] Address [address] [place] [address] 7t [place] [address] Care Team Providers Care Loader Semiconductor Dies Name Role Phone Rosalind Cardoso Primary Care Provider [phone] Barron Wetzel MD Unavailable [phone] Madeline Yo Unavailable Encounter Details Date Type Department Care Team ([facility] st Contact Info) Description 06/25/2023 Telephone [facility] MEDICINE [address] [place] [address] Rosalind Cardoso FNP [address] [place], [place] [phone] Social History Tobacco Use Types Packs/Day Years [...] [facility] MED & PEDS [address] [place] [address] Rosalind Cardoso FNP [address] [place] [address] documented as of this encounter Visit Diagnoses Not on filedocumented in this encounter Additional Health Concerns Assessment Noted Time PHQ-9 Depression Total Score: 0 12/26/19 23 1:09 PM EDT documented as of this encounter Care Teams Loader Semiconductor Dies Relationship Specialty Start Date End Date Rosalind Cardoso FNP [address] [place] [address] PCP - General Family Medicine 04/28/21 Barron Wetzel MD 100 [facility] 200 [place] [address] Nephrology 01/15/25 Madeline Yo [address] [facility] [address] 3rd [place] [address] Cardiology 01/15/25 [employer] 01/05/25 documented as of this encounter
--- OUTSIDE RECORDS SUMMARY | 2025-03-11 13:11 | XMS_ITS | Patient Health Record ---
Author Organization [facility] Address [address] [facility] [place] [address] Care Team Providers Care Learning Engineer Name Role Phone Lesvia Sosa Unavailable [phone] Reason For Referral No Information Medications Medication [...] Oral; Duration: 90 Active [employer] Short Pen [place] 31G X 8 MM USE ONCE DAILY [...] Problem Arthropathy associated with a neurological disorder (62394446) Charcot's joint, left ankle and foot (M14.672) Active confirmed Problem Acquired hammer toe of right foot (6817165721077738 ) Hammer toe of right foot (M20.41) Active confirmed Problem Acquired hammer toe of left foot (3336574433980571 ) Hammer toe of left foot (M20.42) Active confirmed Problem Neuropathy (725090478) Neuropathy (G62.9) Active confirmed Problem Polyneuropathy due to type 2 diabetes mellitus (087233881) Type 2 diabetes mellitus with polyneuropathy (E11.42) Active confirmed Plan Of Treatment Pending Test Test Name Order Date X ray : Foot, left 3V 11/28/2021 X ray : Foot, right 3V 11/28/2021 Insurance Providers Payer Name Payer Address Payer Phone Subscriber Number Group Number Insured Name Patient Relationship to Insured Coverage Start Date Coverage End Date [facility] [employer] Claims [address] [place] [id number] [place] Self - patient is the insured Medical (General) History Medical History History ICD Code Anemia Arthritis Back,Hip,and Knee pain Cholesterol Cataracts Diabetic Headaches/Migraines Heart disease High blood pressure Kidney disease Neuropathy Psoriasis/eczema Measles Chicken pox Surgical History Surgery Date(Month/Year) Angeogram D+C 1987 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
--- OUTSIDE RECORDS SUMMARY | 2025-03-11 13:11 | XMS_ITS | Encounter Summary ---
Author Organization [employer] Address [address] [place] [address] 7 [place] [address] Care Team Providers Care Packer And Carry Out Name Role Phone Rosalind Cardoso Primary Care Provider [phone] Barron Wetzel MD Unavailable Madeline Yo Unavailable Reason for Visit * Reason Onset Date Comments Appointment Request 10/13/2024 Encounter Details Date Type Department Care Team (Late st Contact Info) Description 10/13/2024 Telephone [facility] MEDICINE [address] [place] [address] Rosalind Cardoso FNP [address] [place], [place] [phone] Appointment Request Social History Tobacco Use Types [...] Description 05/03/2025 11:15 AM EDT Office Visit [facility] MED & PEDS [address] [place] [address] Rosalind Cardoso FNP [address] [place] [address] documented as of this encounter Visit Diagnoses Not on filedocumented in this encounter Additional Health Concerns Assessment Noted Time PHQ-9 Depression Total Score: 6 08/03/19 25 9:07 AM EST documented as of this encounter Care Teams Packer And Carry Out Relationship Specialty Start Date End Date Rosalind Cardoso FNP [address] [place] [address] PCP - General Family Medicine 04/28/21 Barron Wetzel MD 100 [facility] 200 [place] [address] Nephrology 01/15/25 Madeline Yo [address] [place] [address] 3rd [place] [address] Cardiology 01/15/25 [employer] 01/05/25 documented as of this encounter
--- OUTSIDE RECORDS SUMMARY | 2025-03-11 13:11 | XMS_ITS | Encounter Summary ---
Author Organization [employer] Address [address] [place] [address] 7 [place] [address] Care Team Providers Care Post Anesthesia Nurse Name Role Phone Rosalind Cardoso Primary Care Provider [phone] Barron Wetzel MD Unavailable [phone] Madeline Yo Unavailable Encounter Details Date Type Department Care Team (Late st Contact Info) Description 11/06/2024 Orders Only [facility] & PEDS [address] [place], [place] [phone] Rosalind Cardoso FNP [address] [place], [place] [phone] Type 2 diabetes mellitus with stage 3 [...] EDT Office Visit [facility] MED & PEDS [address] [place] [address] Rosalind Cardoso, FOUNDRY TENDER [address] [place] [address] documented as of this encounter Procedures Procedure Name Priority Date/Time Associated Diagnosis Comments COMPREHENSIVE METABOLIC PANEL Routine 12/21/2024 2:13 PM [...] documented in this encounter Results * (ABNORMAL) Comprehensive Metabolic Panel (12/21/2024 2:13 PM EDT) Sodium 136 135 - 145 mmol/L [facility] Potassium 3.8 3.3 - 5.1 mmol/L [facility] Chloride 101 96 - 108 mmol/L [facility] Carbon Dioxide 26 22 - 29 mmol/L [facility] Anion Gap 13 12 - 20 [facility] Urea Nitrogen (BUN) 37(H) 9 - 16 mg/dL [facility] Creatinine, Serum 1.54(H) 0.5 - 1.4 mg/dL [facility] Estimated Glomerular Filt Rate 34 [facility] Comment:Chronic Kidney Disea se: Estimated GFR < 60 mL/min/1.02i5Covcoo Kidney Disease: Estimated GFR < 15 mL/min/1.73m2 Glucose 450(HH) 60 - 115 mg/dL [facility] Comment:Critical value for t est(s): GLUR Results called to and readback by: Person calling: Digital Assent Date: 12/21/24 Time:1753 Calcium 8.8 8.4 - 10.2 mg/dL [facility] Bilirubin, Total 0.3 0.0 - 1.0 mg/dL [facility] Aspartate Amino Transferase 19 5 - 31 U/L [facility] Alanine Aminotransferase 25 0 - 31 U/L [facility] Total Protein 6.4(L) 6.5 - 8.0 g/dL [facility] Albumin Level 3.4(L) 3.5 - 5.0 g/dL [facility] Alkaline Phosphatase 119(H) 39 - 117 U/L [facility] Blood Venous blood specimen / Unknown 12/21/2024 2:13 PM EDT 12/21/2024 4:02 PM EDT us Rosalind Cardoso FOUNDRY TENDER LAB BLOOD ORDERABLES Final Res ult [facility] [address] [place] [phone] * Prothrombin Time-INR (12/18/2024 10:17 AM EDT) Prothrombin Time 11.8 10.9 - 12.4 SEC [facility] INTERNATIONAL NORM RATIO 1.0 0.9 - 1.1 [facility] Comment:INTERNATIONAL NORMAL IZED RATIO [...] 3.5 Blood Venous blood specimen / Unknown 12/18/2024 10:17 AM EDT 12/18/2024 10:17 AM EDT Rosalind Cardoso FOUNDRY TENDER LAB BLOOD ORDERABLES Final Res ult Performing Organization Address [facility] Co de Phone Number [facility] [address] [place] [phone] * (ABNORMAL) C-reactive Protein (12/18/2024 10:17 AM EDT) C Reactive Protein 0.65(H) < or = 0.50 mg/dL [facility] Blood Venous blood specimen / Unknown 12/18/2024 10:17 AM EDT 12/18/2024 10:17 AM EDT Rosalind Cardoso [facility] LAB BLOOD ORDERABLES Final Res ult Performing Organization Address [facility] de Phone Number [facility] [address] [place] [phone] * (ABNORMAL) Sed Rate by Modified Mangoergren (12/18/2024 10:17 AM EDT) Erythrocyte Sedimentation Rate 25(H) 0 - 20 MM/HR [facility] Comment:Patients with polycy themia and many hemoglobin abnormalitiesmay have depressed sed rates whereas patients with anemiamay have elevated sed rates. Blood Venous blood specimen / Unknown 12/18/2024 10:17 AM EDT 12/18/2024 10:17 AM EDT Rosalind Cardoso [facility] LAB BLOOD ORDERABLES Final Res ult Performing Organization Address [facility] Co de Phone Number [facility] [address] [place] [address] [phone] * Magnesium (12/18/2024 10:17 AM EDT) Magnesium 1.9 1.6 - 2.6 mg/dL [facility] Blood Venous blood specimen / Unknown 12/18/2024 10:17 AM EDT 12/18/2024 10:17 AM EDT Rosalind MORELOS LAB BLOOD ORDERABLES Final Res ult [facility] [address] [place] [phone] [phone] documented in this encounter Visit Diagnoses [...] documented as of this encounter Care Teams Post Anesthesia Nurse Relationship Specialty Start Date End Date Rosalind Cardoso FNP [address] [place] [address] PCP - General Family Medicine 04/28/21 Barron Wetzel MD 100 [facility] 200 [place] [address] Nephrology 01/15/25 Madeline Yo [address] [place] [address] 3rd [place] [address] Cardiology 01/15/25 [employer] 01/05/25 documented as of this encounter
--- OUTSIDE RECORDS SUMMARY | 2025-03-11 13:11 | XMS_ITS | Encounter Summary ---
Author Organization [employer] Address [address] [place] [address] [facility] [place] [address] Care Team Providers Care Locomotive Firer Name Role Phone Rosalind Cardoso Primary Care Provider [phone] Barron Wetzel MD Unavailable [phone] Madeline Yo Unavailable Reason for Visit * Reason Comments Med Refill Encounter Details Date Type Department Care Team ([facility] st Contact Info) Description 05/28/2023 Refill [facility] MED [facility] PEDS [address] [place] [address] Rosalind Cardoso FNP [address] [place], [place] [phone] Other chronic osteomyelitis of left foot (CMS/HCC); [...] 05/03/2025 11:15 AM EDT Office Visit [facility] MED [facility] PEDS [address] [place] [address] Rosalind Cardoso FNP 505 [place] [address] documented as of this encounter Visit Diagnoses Diagnosis Other chronic osteomyelitis of left foot (CMS/HCC) Low back pain at multiple sites documented in this encounter Additional Health Concerns Assessment Noted Time PHQ-9 Depression Total Score: 0 12/26/19 23 1:09 PM EDT documented as of this encounter Care Teams Locomotive Firer Relationship Specialty Start Date End Date Rosalind Cardoso FNP 230 [place] [address] PCP - General Family Medicine 04/28/21 Barron Wetzel MD 100 [facility] 200 [place] [address] Nephrology 01/15/25 Madeline Yo [address] 3rd [place] [address] Cardiology 01/15/25 [place] 01/05/25 documented as of this encounter
--- OUTSIDE RECORDS SUMMARY | 2025-03-11 13:11 | XMS_ITS | Encounter Summary ---
Author Organization [employer] Address [address] [place] [address] 7 [place] [address] Care Team Providers Care Plate Glass Grinder Name Role Phone Rosalind Cardoso Primary Care Provider Barron Wetzel MD Unavailable [phone] Madeline Yo Unavailable Encounter Details Date Type Department Care Team (Late st Contact Info) Description 07/10/2024 Orders Only [facility] MEDICINE 230 [place] [address] Rosalind Cardoso FNP [address] [place], [place] [phone] Type 2 diabetes mellitus with stage 3 [...] Description 05/03/2025 11:15 AM EDT Office Visit [facility] MED & PEDS 505 [place] [address] Rosalind Cardoso FNP 505 [place] [address] documented as of this encounter Visit Diagnoses Diagnosis Type 2 diabetes mellitus with stage 3 chronic kidney disease, with long-term current use of insulin, unspecified whether stage 3a or 3b CKD ([facility]/HCC) Myalgia Unspecified myalgia and myositis documented in this encounter Additional Health Concerns Assessment Noted Time PHQ-9 Depression Total Score: 0 12/26/19 23 1:09 PM EDT documented as of this encounter Care Teams Plate Glass Grinder Relationship Specialty Start Date End Date Rosalind Cardoso FNP [address] [place] [address] PCP - General Family Medicine 04/28/21 Barron Wetzel MD 100 [facility] 200 [place] [address] Nephrology 01/15/25 Madeline Yo [address] 3rd [place] [address] Cardiology 01/15/25 [place] 01/05/25 documented as of this encounter
--- OUTSIDE RECORDS SUMMARY | 2025-03-11 13:11 | XMS_ITS | Encounter Summary ---
Author Organization [employer] Address [address] [place] [address] 7t [place] [address] Care Team Providers Care Welder Railcar Mechanic Name Role Phone Janae Rosalind TAMY Primary Care Provider [phone] Barron Wetzel MD Unavailable [phone] Madeline Yo Unavailable Encounter Details Date Type Department Care Team (Late st Contact Info) Description 05/23/2023 Abstract [facility] MEDICINE 230 [place] [address] Adela Pena Social History Tobacco Use Types [...] Description 05/03/2025 11:15 AM EDT Office Visit [facility] MED & PEDS 505 [place] [address] Rosalind Cardoso FNP 505 [place] [address] documented as of this encounter Visit Diagnoses Not on filedocumented in this encounter Additional Health Concerns Assessment Noted Time PHQ-9 Depression Total Score: 0 12/26/19 23 1:09 PM EDT documented as of this encounter Care Teams Welder Railcar Mechanic Relationship Specialty Start Date End Date Rosalind Cardoso FNP [address] [place] [address] PCP - General Family Medicine 04/28/21 Barron Wetzel MD [address] [facility] 200 [place] [address] Nephrology 01/15/25 Madeline Yo [address] [place] [address] 3rd [place] [address] Cardiology 01/15/25 [employer] 01/05/25 documented as of this encounter
--- OUTSIDE RECORDS SUMMARY | 2025-03-11 13:11 | XMS_ITS | Encounter Summary ---
Author Organization [employer] Address [address] [place] [address] 7 [place] [address] Care Team Providers Care Glass Worker Name Role Phone Rosalind Cardoso Primary Care Provider [phone] Barron Wetzel MD Unavailable [phone] Madeline Yo Unavailable Encounter Details Date Type Department Care Team (Late st Contact Info) Description 10/09/2024 Orders Only [facility] MED & PEDS 505 [place], [place] [phone] Rosalind Cardoso FNP 505 [place], [place] [phone] Type 2 diabetes mellitus with stage 3 [...] [facility] [address] [place] [address] Rosalind Cardoso, TAMY 505 [place] [address] documented as of this encounter Procedures Procedure Name Priority Date/Time Associated Diagnosis Comments PROTHROMBIN TIME-INR Routine 12/24/2024 10:18 AM EDT [...] Primary hypertension Stage 3b chronic kidney disease ([facility]/HCC) History of amputation of left leg through tibia and fibula ([facility]) documented in this encounter Results * (ABNORMAL) Prothrombin Time-INR (12/24/2024 10:18 AM EDT) Prothrombin Time 12.6(H) 10.9 - 12.4 SEC [facility] INTERNATIONAL NORM RATIO 1.1 0.9 - 1.1 [facility] [...] 3.5 Blood Venous blood specimen / Unknown 12/24/2024 10:18 AM EDT 12/24/2024 10:18 AM EDT Rosalind Cardoso [facility] BLOOD ORDERABLES Final Res ult Performing Organization Address [facility] Co de Phone Number [facility] [address] [place] [phone] * (ABNORMAL) C-reactive Protein (12/24/2024 10:18 AM EDT) C Reactive Protein 1.07(H) < or = 0.50 mg/dL [facility] Blood Venous blood specimen / Unknown 12/24/2024 10:18 AM EDT 12/24/2024 10:18 AM EDT Rosalind Haparaedna FIELD AGRONOM[employer] LAB BLOOD ORDERABLES Final Res ult Performing Organization Address City/[facility]/ZIP Co de Phone Number [facility] [address] [place] [phone] documented in this encounter Visit Diagnoses [...] documented as of this encounter Care Teams Glass Worker Relationship Specialty Start Date End Date Rosalind Cardoso FNP 230 [place] [address] PCP - General Family Medicine 04/28/21 Barron Wetzel MD 100 [facility] 200 [place] [address] Nephrology 01/15/25 Madeline Yo [address] [place] [address] 3rd [place] [address] Cardiology 01/15/25 [employer] 01/05/25 documented as of this encounter
--- OUTSIDE RECORDS SUMMARY | 2025-03-11 13:11 | XMS_ITS | Encounter Summary ---
Author Organization [employer] Address [address] [place] [address] 7 [place] [address] Care Team Providers Care Last Puller Name Role Phone Rosalind Cardoso Primary Care Provider [phone] Barron Wetzel MD Unavailable [phone] Madeline Yo Unavailable Encounter Details Date Type Department Care Team (Late st Contact Info) Description 10/23/[address] [facility] CH[facility] MED & PEDS 505 [place], [place] [phone] Rosalind Cardoso FNP 505 [place], [place] [phone] Type 2 diabetes mellitus with stage 3 [...] [facility] 505 [place] [address] Rosalind Cardoso, TAMY 505 [place] [address] documented as of this encounter Procedures Procedure Name Priority Date/Time Associated Diagnosis Comments PROTHROMBIN TIME-INR Routine 12/21/2024 2:13 PM EDT [...] and fibula (CMS/HCC) COMPREHENSIVE METABOLIC PANEL Routine 11/26/2024 9:01 AM EDT Type 2 diabetes mellitus with stage 3 chronic kidney disease, with long-term current use of insulin, unspecified whether stage 3a or 3b CKD (CMS/HCC) Primary hypertension Stage 3b chronic kidney disease (CMS/HCC) History of amputation of left leg through tibia and fibula (CMS/HCC) documented in this encounter Results * Prothrombin Time-INR (12/21/2024 2:13 PM EDT) Prothrombin Time 12.3 10.9 - 12.4 SEC [facility] INTERNATIONAL NORM RATIO 1.1 0.9 - 1.1 [facility] Comment:INTERNATIONAL NORMAL IZED RATIO (INR) [...] 3.5 Blood Venous blood specimen / Unknown 12/21/2024 2:13 PM EDT 12/21/2024 4:02 PM EDT us Rosalind Cardoso [employer] LAB BLOOD ORDERABLES Final Res ult [facility] [address] [place] [phone] * (ABNORMAL) C-reactive Protein (12/21/2024 2:13 PM EDT) Pathologist [facility] C Reactive Protein 1.65(H) < or = 0.50 mg/dL [facility] Blood Venous blood specimen / Unknown 12/21/2024 2:13 PM EDT 12/21/2024 4:02 PM EDT Rosalind Cardoso [facility] BLOOD ORDERABLES Final Res ult Performing Organization Address [facility] de Phone Number [facility] [address] [place] [phone] * Magnesium (12/21/2024 2:13 PM EDT) [facility] Magnesium 1.9 1.6 - 2.6 mg/dL [facility] Blood Venous blood specimen / Unknown 12/21/2024 2:13 PM EDT 12/21/2024 4:02 PM EDT Rosalind Cardoso [facility] BLOOD ORDERABLES Final Res ult Performing Organization Address [facility] de Phone Number [facility] [address] [place] [phone] * (ABNORMAL) Comprehensive Metabolic Panel (11/26/2024 9:01 AM EDT) [facility] Sodium 138 135 - 145 mmol/L [facility] Potassium 3.7 3.3 - 5.1 mmol/L [facility] Chloride 103 96 - 108 mmol/L [facility] Carbon Dioxide 26 22 - 29 mmol/L [facility] Anion Gap 13 12 - 20 [facility] Urea Nitrogen (BUN) 30(H) 9 - 16 mg/dL [facility] Creatinine, Serum 1.80(H) 0.5 - 1.4 mg/dL [facility] Estimated Glomerular Filt Rate 29 [facility] Comment:Chronic Kidney Disea se: Estimated GFR < 60 mL/min/1.06t2Wyjvkt Kidney Disease: Estimated GFR < 15 mL/min/1.73m2 Glucose 449(HH) 60 - 115 mg/dL [facility] Comment:Critical value for t est(s): GLUR Results called to concepcion back by: FAITH Velasquez Person calling: LEAT Date: 11/26/24Time: 1253 Calcium 9.1 8.4 - 10.2 mg/dL [facility] Bilirubin, Total 0.4 0.0 - 1.0 mg/dL [facility] Aspartate Amino Transferase 22 5 - 31 U/L [facility] Alanine Aminotransferase 19 0 - 31 U/L [facility] Total Protein 6.7 6.5 - 8.0 g/dL [facility] Albumin Level 3.6 3.5 - 5.0 g/dL [facility] Alkaline Phosphatase 117 39 - 117 U/L [facility] Blood Venous blood specimen / Unknown 11/26/2024 9:01 AM EDT 11/26/2024 11:04 AM EDT us Rosalind MORELOS LAB BLOOD ORDERABLES Final Res ult [facility] [address] [place] [phone] documented in this encounter Visit Diagnoses Diagnosis Type 2 diabetes mellitus with stage 3 chronic kidney disease, with long-term current use of insulin, unspecified whether stage 3a or 3b CKD (CMS/HCC) Primary hypertension Unspecified essential hypertension Stage 3b chronic kidney disease ([facility]/HCC) History of amputation of left leg through tibia and fibula ([facility]/HCC) documented in this encounter Additional Health Concerns Assessment Noted Time PHQ-9 Depression Total Score: 6 08/03/19 25 9:07 AM EST documented as of this encounter Care Teams Last Puller Relationship Specialty Start Date End Date Rosalind Cardoso FNP [address] [place] [address] PCP - General Family Medicine 04/28/21 Barron Wetzel MD 100 [facility] 200 [place] [address] Nephrology 01/15/25 Madeline Yo [address] [place] [address] 3rd [place] [address] Cardiology 01/15/25 [place] 01/05/25 documented as of this encounter
== END 2025-03-11 11:26 | disposition home or self-care (01) ==
LOC: HO.LAB 11:25
PROVIDERS: Absent Provider Registered Nurse; PCP Registered Nurse; Visit Provider Internal Medicine Medical Oncology
DX: E11.22 Type 2 diabetes mellitus with diabetic chronic kidney disease (principal); I12.9 Hypertensive chronic kidney disease with stage 1 through stage 4 chronic kidney disease, or unspecified chronic kidney disease; N18.32 Chronic kidney disease, stage 3b; D64.9 Anemia, unspecified; Z89.512 Acquired absence of left leg below knee; Z79.4 Long term (current) use of insulin
CPT/HCPCS: 36415; 85025

== ENCOUNTER 2025-04-05 13:11 | Outpatient (REF) | payer OTHER, SELFPAY ==
[2025-04-05 13:43] LABS: MANUAL DIFF FLAG NO
[2025-04-05 13:49] LABS: Hematocrit 36.7 % (37.0-47.0); Hemoglobin 11.2 g/dl (12.0-16.0); Imm Gran Abs Auto 0.02 X10*3/uL (0.00-0.03); Imm Gran Pct Auto 0.2 % (0.0-0.4); Lymphocytes Absolute Auto 2.5 X10*3/uL (1.2-4.9); Mean Corpuscular HGB Conc 30.5 g/dl (31.0-35.0); Mean Corpuscular Hemoglobin 18.8 pg (27.0-33.0); NRBC Abs Auto 0.000 X10*3/uL (0.0-0.012); NRBC Pct Auto 0.0 /100WBC (0.0-0.2); Platelet Count 297 X10*3/uL (160-400); Red Blood Count 5.95 X10*6/uL (4.20-5.50); White Blood Count 9.1 X10*3/uL (4.8-10.8)
[2025-04-05 13:50] LABS: Mean Corpuscular Volume 61.7 fL (80.0-98.0)
--- OUTSIDE RECORDS SUMMARY | 2025-04-05 14:30 | XMS_ITS | Encounter Summary ---
Author Organization [employer] Address [address] [place] [address] 7 [place] [address] Care Team Providers Care Technology Infusion Specialist Name Role Phone Rosalind Cardoso Primary Care Provider [phone] Barron Wetzel MD Unavailable [phone] Madeline Yo Unavailable Encounter Details Date Type Department Care Team (Late st Contact Info) Description 08/21/2024 Orders Only [facility] MEDICINE 230 [place] [address] Rosalind Cardoso FNP [address] [place], [place] [phone] Type 2 diabetes mellitus with stage 3 [...] the past 12 months, has t he [employer], gas, oil or water company threatened to [...] Description 05/03/2025 11:15 AM EDT Office Visit [facility] MED & PEDS 505 [place] [address] Rosalind Cardoso FNP 505 [place] [address] documented as of this encounter Visit Diagnoses Diagnosis Type 2 diabetes mellitus with stage 3 chronic kidney disease, with long-term current use of insulin, unspecified whether stage 3a or 3b CKD (HCC) Myalgia Unspecified myalgia and myositis documented in this encounter Additional Health Concerns Assessment Noted Time PHQ-9 Depression Total Score: 6 08/03/19 25 9:07 AM EST documented as of this encounter Care Teams Technology Infusion Specialist Relationship Specialty Start Date End Date Rosalind Cardoso FNP 230 [place] [address] PCP - General Family Medicine 04/28/21 Barron Wetzel MD [address] [address] Nephrology 01/15/25 Madeline Yo [address] [place] [address] 3rd [place] [address] Cardiology 01/15/25 [employer] 01/05/25 documented as of this encounter
--- OUTSIDE RECORDS SUMMARY | 2025-04-05 14:30 | XMS_ITS | Encounter Summary ---
Author Organization [employer] Address [address] [place] [address] [facility] [place] [address] Care Team Providers Care Hr Payroll Coordinator Name Role Phone Rosalind Cardoso Primary Care Provider [phone] Barron Wetzel MD Unavailable [phone] Madeline Yo Unavailable Reason for Visit * Reason Onset Date Comments Request For Order(s) 07/30/2023 Encounter Details Date Type Department Care Team ([facility] st Contact Info) Description 07/30/2023 Telephone [facility] MED & PEDS [address] [place], [place] [phone] Rosalind Cardoso FNP 505 [place], [place] [phone] Request For Order(s) Social History Tobacco Use [...] 4:26 PM EST Tc ro martinez with [facility] requesting updated PT orders due to pt complaining of hip and back pain. Will also need OT orders for pain in the hands. Please fax to [phone] (attention: michelle) documented in this encounter Plan of Treatment Upcoming Encounters Date Type Department Care Team (Late st Contact Info) Description 05/03/2025 11:15 AM EDT Office Visit [facility] MED & PEDS [address] [place], [place] [phone] Rosalind Cardoso FNP 505 [place] [address] documented as of this encounter Visit Diagnoses Diagnosis Pain in both hands- Primary Back pain, unspecified back location, unspecified back pain laterality, unspecified chronicity Hip pain, unspecified laterality documented in this encounter Additional Health Concerns Assessment Noted Time PHQ-9 Depression Total Score: 0 12/26/19 23 1:09 PM EDT documented as of this encounter Care Teams Hr Payroll Coordinator Relationship Specialty Start Date End Date Rosalind Cardoso FNP 230 [place] [address] PCP - General Family Medicine 04/28/21 Barron Wetzel MD 100 [facility] 200 [place] [address] Nephrology 01/15/25 Madeline Yo [address] [place] [address] 3rd [place] [address] Cardiology 01/15/25 [employer] 01/05/25 documented as of this encounter
--- OUTSIDE RECORDS SUMMARY | 2025-04-05 14:30 | XMS_ITS | Encounter Summary ---
Author Organization [employer] Address [address] [place] [address] 7 [place] [address] Care Team Providers Care Hotel Assistant Manager Name Role Phone Rosalind Cardoso Primary Care Provider [phone] Barron Wetzel MD Unavailable [phone] Madeline Yo Unavailable Encounter Details Date Type Department Care Team (Late st Contact Info) Description 08/07/2024 Orders Only [facility] MEDICINE 230 [place] [address] Rosalind Cardoso FNP [address] [place], [place] [phone] Type 2 diabetes mellitus with stage 3 [...] the past 12 months, has t he [employer], gas, oil or water [employer] threatened to shut off services in your [...] [facility] 505 [place] [address] Rosalind Cardoso FNP 505 [place] [address] documented as of this encounter Procedures Procedure Name Priority Date/Time Associated Diagnosis Comments PROTHROMBIN TIME-INR Routine 10/02/2024 3:12 PM EDT Type 2 diabetes mellitus with stage 3 chronic kidney disease, with long-term current use of insulin, unspecified whether stage 3a or 3b CKD ([facility]) Myalgia documented in this encounter Results * (ABNORMAL) Prothrombin Time-INR (10/02/2024 3:12 PM EDT) Prothrombin Time 10.5(L) 10.9 - 12.4 SEC [facility] INTERNATIONAL NORM RATIO 0.9 0.9 - 1.1 [facility] Comment:INTERNATIONAL [...] ORDERABLES Final Res ult [facility] [address] [place] [phone] documented in this encounter Visit Diagnoses [...] Date End Date Rosalind Cardoso FNP 230 [place] [address] PCP - General Family Medicine 04/28/21 Barron Wetzel MD 100 [facility] 200 [place] [address] Nephrology 01/15/25 Madeline Yo [address] 3rd [place] [address] Cardiology 01/15/25 [facility] 01/05/25 documented as of this encounter
--- OUTSIDE RECORDS SUMMARY | 2025-04-05 14:30 | XMS_ITS | Encounter Summary ---
Author Organization [employer] Address [address] [place] [address] 7 [place] [address] Care Team Providers Care Vault Attendant Name Role Phone Rosalind Cardoso Primary Care Provider [phone] Barron Wetzel MD Unavailable Madeline Yo Unavailable Encounter Details Date Type Department Care Team (Late st Contact Info) Description 08/28/2024 Orders Only [facility] CH[facility] MED & PEDS 505 [place], [place] [phone] Rosalind Cardoso FNP 505 [place], [place] [phone] Type 2 diabetes mellitus with stage 3 [...] Description 05/03/2025 11:15 AM EDT Office Visit [facility] MED & PEDS 505 [place] [address] Rosalind Cardoso FNP 505 [place] [address] documented as of this encounter Visit Diagnoses Diagnosis Type 2 diabetes mellitus with stage 3 chronic kidney disease, with long-term current use of insulin, unspecified whether stage 3a or 3b CKD (HCC) Primary hypertension Unspecified essential hypertension Stage 3b chronic kidney disease (CMS/HCC) (HCC) 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) documented in this encounter Additional Health Concerns Assessment Noted Time PHQ-9 Depression Total Score: 6 08/03/19 25 9:07 AM EST documented as of this encounter Care Teams Vault Attendant Relationship Specialty Start Date End Date Rosalind Cardoso FNP [address] [place] [address] PCP - General Family Medicine 04/28/21 Barron Wetzel MD 100 [facility] 200 [place] [address] Nephrology 01/15/25 Madeline Yo [address] [place] [address] Drive 3rd [place] [address] Cardiology 01/15/25 [employer] 01/05/25 documented as of this encounter
--- OUTSIDE RECORDS SUMMARY | 2025-04-05 14:30 | XMS_ITS | Encounter Summary ---
Author Organization [employer] Address [address] [place] [address] 7 [place] [address] Care Team Providers Care Elementary Assistant Principal Name Role Phone Rosalind Cardoso Primary Care Provider [phone] Barron Wetzel MD Unavailable [phone] Madeline Yo Unavailable Encounter Details Date Type Department Care Team (Late st Contact Info) Description 08/14/2024 Orders Only [facility] CH[facility] MED & PEDS [address] [place], [place] [phone] Rosalind Cardoso FNP 505 [place], [place] [phone] Type 2 diabetes mellitus with stage 3 [...] [facility] MED & PEDS [address] [place] [address] Rosalind Cardoso FNP 505 [place] [address] documented as of this encounter Visit Diagnoses [...] documented as of this encounter Care Teams Elementary Assistant Principal Relationship Specialty Start Date End Date Rosalind Cardoso FNP [address] [place] [address] PCP - General Family Medicine 04/28/21 Barron Wetzel MD 100 [facility] 200 [place] [address] Nephrology 01/15/25 Madeline Yo [address] [place] [address] Drive 3rd [place] [address] Cardiology 01/15/25 [place] 01/05/25 documented as of this encounter
--- OUTSIDE RECORDS SUMMARY | 2025-04-05 14:30 | XMS_ITS | Patient Health Record ---
Demographics Address [address] [place] [address] Email Address Preferred Language en Marital Status Unknown Adventist Affiliation Unknown Race White Ethnic Group Not or Lati no Author Organization [facility] Address [address] [place] [address] Support Name Relationship Address Phone Yessenia Parish Emergency Contact [address] [place] [address] TAODONNA Guarantor Unknown [phone] Care Team Providers Care Clay Caster Name Role Phone Arianna [place] Primary Care Provider Nate Florez [phone] Reason For Referral No Information Medications Medication [...] Problem Status W/U Status Risk Notes Problem [id number] Encounter for screening for malignant neoplasm of colon (Z12.11) Active confirmed Problem 613221931 Irritable bowel syndrome with diarrhea (K58.0) Active confirmed Problem [id number] Calculus of gallbladder without cholecystitis without obstruction (K80.20) Active confirmed Problem Screening for malignant neoplasm of rectum (323682905) Encounter for screening for malignant neoplasm of rectum (Z12.12) Active confirmed Problem [id number] Microcytic anemi a (D50.9) Active confirmed Plan [...] OF [place] [address] [place] [address] [id number] DONNA PARISH Self - patient is the insured MEDICAID OF [facility] [address] [place] [address] [id number] DONNA PARISH Self - patient is the insured Medical (General) History Medical History History ICD Code NIDDM Hypertension Denies [place],CVA,Lung disease Mild renal insufficiency Urinary incontinence She [...]
--- OUTSIDE RECORDS SUMMARY | 2025-04-05 14:30 | XMS_ITS | Encounter Summary ---
Author Organization [employer] Address [address] [place] [address] 7 [place] [address] Care Team Providers Care 911 Emergency Dispatcher Name Role Phone Rosalind Cardoso Primary Care Provider [phone] Barron Wetzel MD Unavailable [phone] Madeline Yo Unavailable Encounter Details Date Type Department Care Team (Late st Contact Info) Description 06/19/2024 Orders Only [facility] [address] [place], [place] [phone] Rosalind Cardoso FNP 505 [place], [place] [phone] Type 2 diabetes mellitus with stage 3 [...] 11:15 AM EDT Office Visit [facility] [address] [place] [address] Rosalind Cardoso, TAMY 505 [place] [address] documented as of this encounter Procedures Procedure [...] whether stage 3a or 3b CKD ([facility]) Primary hypertension Stage 3b chronic kidney disease ([facility]) History of amputation of left leg through tibia and fibula ([facility]) documented in this encounter Results * Prothrombin Time-INR (06/23/2024 10:31 AM EST) Prothrombin Time 11.3 10.9 - 12.4 SEC [facility] INTERNATIONAL NORM RATIO 1.0 0.9 - 1.1 [facility] Comment:INTERNATIONAL NORMAL IZED RATIO [...] 10:31 AM EST us Rosalind Cardoso [facility] BLOOD ORDERABLES Final Res ult [facility] [address] [place] [phone] * (ABNORMAL) Sed Rate by Modified Westergren (06/23/2024 10:31 AM EST) Erythrocyte Sedimentation Rate 38(H) 0 - 20 MM/HR [facility] Comment:Patients with polycy themia and many hemoglobin abnormalitiesmay have depressed sed rates whereas patients with anemiamay have elevated sed rates. Blood Venous blood specimen / Unknown 06/23/2024 10:31 AM EST 06/23/2024 10:31 AM EST us Rosalind Cardoso RADIO OPERATOR LAB BLOOD ORDERABLES Final Res ult [facility] [address] [place] [address] [phone] * (ABNORMAL) Comprehensive Metabolic Panel (06/23/2024 10:31 AM EST) Sodium 134(L) 135 - 145 mmol/L [facility] Potassium 4.1 3.3 - 5.1 mmol/L [facility] Chloride 97 96 - 108 mmol/L [facility] Carbon Dioxide 27 22 - 29 mmol/L [facility] Anion Gap 14 12 - 20 [facility] Urea Nitrogen (BUN) 45(H) 9 - 16 mg/dL [facility] Creatinine, Serum 1.91(H) 0.5 - 1.4 mg/dL [facility] Estimated Glomerular Filt Rate 27 [facility] Comment:Chronic Kidney Disea se: Estimated GFR < 60 mL/min/[id number] Kidney Disease: Estimated GFR < 15 mL/min/1.73m2 Glucose 287(H) 60 - 115 mg/dL [facility] Calcium 9.1 8.4 - 10.2 mg/dL [facility] Bilirubin, Total 0.3 0.0 - 1.0 mg/dL [facility] Aspartate Amino Transferase 19 5 - 31 U/L [facility] Alanine Aminotransferase 11 0 - 31 U/L [facility] Total Protein 7.4 6.5 - 8.0 g/dL [facility] Albumin Level 3.6 3.5 - 5.0 g/dL [facility] Alkaline Phosphatase 99 39 - 117 U/L [facility] Blood Venous blood specimen / Unknown 06/23/2024 10:31 AM EST 06/23/2024 10:31 AM EST us Rosalind Cardoso RADIO OPERATOR LAB BLOOD ORDERABLES Final Res ult [facility] [address] [place] [address] [phone] documented in this encounter Visit Diagnoses [...] documented as of this encounter Care Teams 911 Emergency Dispatcher Relationship Specialty Start Date End Date Rosalind Cardoso FNP [address] [place] [address] PCP - General Family Medicine 04/28/21 Barron Wetzel MD 100 [facility] 200 [place] [address] Nephrology 01/15/25 Madeline Yo [address] [place] [address] Drive 3rd [place] [address] Cardiology 01/15/25 [employer] 01/05/25 documented as of this encounter
--- OUTSIDE RECORDS SUMMARY | 2025-04-05 14:30 | XMS_ITS | Encounter Summary ---
Author Organization [employer] Address [address] [place] [address] 7 [place] [address] Care Team Providers Care Wall Attendant Name Role Phone Rosalind Cardoso Primary Care Provider [phone] Barron Wetzel MD Unavailable [phone] Madeline Yo Unavailable Encounter Details Date Type Department Care Team (Late st Contact Info) Description 07/03/2024 Orders Only [facility] [address] [place], [place] [phone] Rosalind Cardoso FNP [address] [place], [place] [phone] Type 2 diabetes mellitus with stage 3 [...] 05/03/2025 11:15 AM EDT Office Visit [facility] 505 [place] [address] Rosalind Cardoso, TAMY [address] [place] [address] documented as of this encounter Procedures Procedure [...] Prothrombin Time 10.7(L) 10.9 - 12.4 SEC [facility] INTERNATIONAL NORM RATIO 0.9 0.9 - 1.1 [facility] [...] EST 07/07/2024 10:24 AM EST Rosalind Cardoso [employer] LAB BLOOD ORDERABLES Final Res ult Performing Organization Address City/[facility]/ZIP Co de Phone Number [facility] [address] [place] [phone] * (ABNORMAL) C-reactive Protein (07/07/2024 10:24 AM EST) C Reactive Protein 1.00(H) < or = 0.50 mg/dL [facility] Blood Venous blood specimen / Unknown 07/07/2024 10:24 AM EST 07/07/2024 10:24 AM EST Rosalind Cardoso [employer] LAB BLOOD ORDERABLES Final Res ult Performing Organization Address [facility] Co de Phone Number [facility] [address] [place] [phone] * (ABNORMAL) Sed Rate by Modified Westergren (07/07/2024 10:24 AM EST) Erythrocyte Sedimentation Rate 34(H) 0 - 20 MM/HR [facility] Comment:Patients with polycy themia and many hemoglobin abnormalitiesmay have depressed sed rates whereas patients with anemiamay have elevated sed rates. Blood Venous blood specimen / Unknown 07/07/2024 10:24 AM EST 07/07/2024 10:24 AM EST Rosalind Cardoso [employer] LAB BLOOD ORDERABLES Final Res ult Performing Organization Address City/[facility]/ZIP Co de Phone Number [facility] [address] [place] [address] [phone] * Magnesium (07/07/2024 10:24 AM EST) Magnesium 1.8 1.6 - 2.6 mg/dL [facility] Blood Venous blood specimen / Unknown 07/07/2024 10:24 AM EST 07/07/2024 10:24 AM EST us Rosalind Cardoso [employer] LAB BLOOD ORDERABLES Final Res ult [facility] [address] [place] [address] [phone] * (ABNORMAL) Comprehensive Metabolic Panel (07/07/2024 10:24 AM EST) Sodium 135 135 - 145 mmol/L [facility] Potassium 3.7 3.3 - 5.1 mmol/L [facility] Chloride 102 96 - 108 mmol/L [facility] Carbon Dioxide 25 22 - 29 mmol/L [facility] Anion Gap 12 12 - 20 [facility] Urea Nitrogen (BUN) 47(H) 9 - 16 mg/dL [facility] Creatinine, Serum 1.54(H) 0.5 - 1.4 mg/dL [facility] Estimated Glomerular Filt Rate 34 [facility] Comment:Chronic Kidney Disea se: Estimated GFR < 60 mL/min/[id number] Kidney Disease: Estimated GFR < 15 mL/min/1.73m2 Glucose 400(HH) 60 - 115 mg/dL [facility] Comment:Critical value for G RADHA: Results called to and read backby: KAYLEE Gallegos Person calling: OLESYA Date: 07/07/24 Time:1102 Calcium 9.6 8.4 - 10.2 mg/dL [facility] Bilirubin, Total 0.2 0.0 - 1.0 mg/dL [facility] Aspartate Amino Transferase 17 5 - 31 U/L [facility] Alanine Aminotransferase 9 0 - 31 U/L [facility] Total Protein 7.3 6.5 - 8.0 g/dL [facility] Albumin Level 3.5 3.5 - 5.0 g/dL [facility] Alkaline Phosphatase 109 39 - 117 U/L [facility] Blood Venous blood specimen / Unknown 07/07/2024 10:24 AM EST 07/07/2024 10:24 AM EST us Rosalind MORELOS LAB BLOOD ORDERABLES Final Res ult [facility] [address] [place] [address] [phone] documented in this encounter Visit Diagnoses [...] documented as of this encounter Care Teams Wall Attendant Relationship Specialty Start Date End Date Rosalind Cardoso FNP [address] [place] [address] PCP - General Family Medicine 04/28/21 Barron Wetzel MD [address] [phone] Nephrology 01/15/25 Madeline Yo [address] [place] [address] 3rd [place] [address] Cardiology 01/15/25 [employer] 01/05/25 documented as of this encounter
--- OUTSIDE RECORDS SUMMARY | 2025-04-05 14:30 | XMS_ITS | Encounter Summary ---
Author Organization [employer] Address [address] [place] [address] 7 [place] [address] Care Team Providers Care Ux Lead Name Role Phone Rosalind Cardoso Primary Care Provider [phone] Barron Wetzel MD Unavailable [phone] Madeline Yo Unavailable Encounter Details Date Type Department Care Team (Late st Contact Info) Description 09/11/2024 Orders Only [facility]EDS [address] [place], [place] [phone] Rosalind Cardoso FNP [address] [place], [place] [phone] Type 2 diabetes mellitus with stage 3 [...] 05/03/2025 11:15 AM EDT Office Visit [facility] [address] [place] [address] Rosalind Cardoso, TAMY [address] [place] [address] documented as of this encounter Procedures Procedure [...] Protein 0.59(H) < or = 0.50 mg/dL [facility] Blood Venous blood specimen / Unknown 10/06/2024 10:27 AM EDT 10/06/2024 10:27 AM EDT Rosalind MORELOS LAB BLOOD ORDERABLES Final Res ult [facility] [address] [place] [phone] * Magnesium (10/06/2024 10:27 AM EDT) Magnesium 2.0 1.6 - 2.6 mg/dL [facility] Blood Venous blood specimen / Unknown 10/06/2024 10:27 AM EDT 10/06/2024 10:27 AM EDT us Rosalind Phalen FAX MACHINE REPAIRER LAB BLOOD ORDERABLES Final Res ult Performing Organization Address [facility]/ZIP Co de Phone Number [facility] [address] [place] [address] [phone] * (ABNORMAL) Comprehensive Metabolic Panel (10/06/2024 10:27 AM EDT) Sodium 134(L) 135 - 145 mmol/L [facility] Potassium 4.4 3.3 - 5.1 mmol/L [facility] Chloride 101 96 - 108 mmol/L [facility] Carbon Dioxide 24 22 - 29 mmol/L [facility] Anion Gap 13 12 - 20 [facility] Urea Nitrogen (BUN) 85(H) 9 - 16 mg/dL [facility] Creatinine, Serum 2.35(H) 0.5 - 1.4 mg/dL [facility] Estimated Glomerular Filt Rate 21 [facility] Comment:Chronic Kidney Disea se: Estimated GFR < 60 mL/min/[id number] Kidney Disease: Estimated GFR < 15 mL/min/1.73m2 Glucose 298(H) 60 - 115 mg/dL [facility] Calcium 9.6 8.4 - 10.2 mg/dL [facility] Bilirubin, Total 0.3 0.0 - 1.0 mg/dL [facility] Aspartate Amino Transferase 15 5 - 31 U/L [facility] Alanine Aminotransferase 7 0 - 31 U/L [facility] Total Protein 6.9 6.5 - 8.0 g/dL [facility] Albumin Level 3.6 3.5 - 5.0 g/dL [facility] Alkaline Phosphatase 91 39 - 117 U/L [facility] Blood Venous blood specimen / Unknown 10/06/2024 10:27 AM EDT 10/06/2024 10:27 AM EDT Rosalind Cardoso FAX MACHINE REPAIRER LAB BLOOD ORDERABLES Final Res ult Performing Organization Address [facility]/ZIP Co de Phone Number [facility] [address] [place] [address] [phone] * (ABNORMAL) Sed Rate by Modified Westergren (10/02/2024 3:12 PM EDT) Erythrocyte Sedimentation Rate 53(H) 0 - 20 MM/HR [facility] Comment:Patients with polycy themia and many hemoglobin abnormalitiesmay have depressed sed rates whereas patients with anemiamay have elevated sed rates. Blood Venous blood specimen / Unknown 10/02/2024 3:12 PM EDT 10/02/2024 3:12 PM EDT us Rosalind MORELOS LAB BLOOD ORDERABLES Final Res ult [facility] [address] [place] [address] [phone] documented in this encounter Visit Diagnoses [...] documented as of this encounter Care Teams Ux Lead Relationship Specialty Start Date End Date Rosalind Cardoso FNP [address] [place] [address] PCP - General Family Medicine 04/28/21 Barron Wetzel MD 100 [facility] [address] [place] [address] Nephrology 01/15/25 Madeline Yo [address] [place] [address] 3rd [place] [address] Cardiology 01/15/25 [employer] 01/05/25 documented as of this encounter
--- OUTSIDE RECORDS SUMMARY | 2025-04-05 14:31 | XMS_ITS | Encounter Summary ---
Author Organization [employer] Address [address] [place] [address] 7 [place] [address] Care Team Providers Care Plain Clothes Police Officer Name Role Phone Rosalind Cardoso Primary Care Provider [phone] Barron Wetzel MD Unavailable [phone] Madeline Yo Unavailable Reason for Visit * Reason Onset Date Comments Results 10/29/2023 Encounter Details Date Type Department Care Team (Late st Contact Info) Description 10/29/2023 Telephone [facility] [address] [place] [address] Rosalind Cardoso FNP [address], [place] [phone] Results Social History Tobacco Use Types Packs/Day [...] [facility] [address] [place] [address] Rosalind Cardoso FNP 505 [place] [address] documented as of this encounter Visit Diagnoses Not on filedocumented in this encounter Additional Health Concerns Assessment Noted Time PHQ-9 Depression Total Score: 0 12/26/19 1:09 PM EDT documented as of this encounter Care Teams Plain Clothes Police Officer Relationship Specialty Start Date End Date Rosalind Cardoso FNP [address] [place] [address] PCP - General Family Medicine 04/28/21 Barron Wetzel MD [address] [phone] Nephrology 01/15/25 Madeline Yo [address] [place] [address] Drive 3rd [place] [address] Cardiology 01/15/25 [employer] 01/05/25 documented as of this encounter
--- OUTSIDE RECORDS SUMMARY | 2025-04-05 14:31 | XMS_ITS | Encounter Summary ---
Author Organization [employer] Address [address] [place] [address] 7t [place] [address] Care Team Providers Care Linux Server Administrator Name Role Phone Rosalind Cardoso Primary Care Provider [phone] Barron Wetzel MD Unavailable [phone] Madeline Yo Unavailable Reason for Visit * Reason Onset Date Comments Durable Medical Equipment 12/06/2022 Encounter Details Date Type Department Care Team (Late st Contact Info) Description 12/06/2022 Telephone [facility] [address] [place] [address] Rosalind Cardoso FNP [address] [place], [place] [phone] Durable Medical Equipment Social History Tobacco Use [...] For more clarification, please contact pt at [phone] documented in this encounter Plan of Treatment Upcoming Encounters Date Type Department Care Team (Late st Contact Info) Description 05/03/2025 11:15 AM EDT Office Visit [facility] [address] [place] [address] Rosalind Cardoso FNP 505 [place] [address] documented as of this encounter Visit Diagnoses Not on filedocumented in this encounter Care Teams Linux Server Administrator Relationship Specialty Start Date End Date Rosalind Cardoso FNP [address] [place] [address] PCP - General Family Medicine 04/28/21 Barron Wetzel MD 100 [facility] 200 [place] [address] Nephrology 01/15/25 Madeline Yo [address] [place] [address] 3rd [place] [address] Cardiology 01/15/25 [employer] 01/05/25 documented as of this encounter
--- OUTSIDE RECORDS SUMMARY | 2025-04-05 14:31 | XMS_ITS | Encounter Summary ---
Author Organization [employer] Address [address] [place] [address] 7 [place] [address] Care Team Providers Care Cloth Beamer Name Role Phone Rosalind Cardoso Primary Care Provider [phone] Barron Wetzel MD Unavailable [phone] Madeline Yo Unavailable Reason for Visit * Reason Onset Date Comments medication request 10/22/2023 Encounter Details Date Type Department Care Team (Late st Contact Info) Description 10/22/2023 Telephone [facility] [address] [place] [address] Rosalind Cardoso FNP [address] [place], [place] [phone] medication request Social History Tobacco Use Types [...] medication for pneumonia stated [facility] [place] [facility] [place] her to advise of dx documented in this encounter Plan of Treatment Upcoming Encounters Date Type Department Care Team (Late st Contact Info) Description 05/03/2025 11:15 AM EDT Office Visit [facility] PEDS 505 [place] [address] Rosalind Cardoso FNP 505 [place] [address] documented as of this encounter Visit Diagnoses Not on filedocumented in this encounter Additional Health Concerns Assessment Noted Time PHQ-9 Depression Total Score: 0 12/26/19 23 1:09 PM EDT documented as of this encounter Care Teams Cloth Beamer Relationship Specialty Start Date End Date Rosalind Cardoso FNP [address] [place] [address] PCP - General Family Medicine 04/28/21 Barron Wetzel MD 100 [facility] 200 [place] [address] Nephrology 01/15/25 Madeline Yo [address] [place] [address] 3rd [place] [address] Cardiology 01/15/25 [employer] 01/05/25 documented as of this encounter
--- OUTSIDE RECORDS SUMMARY | 2025-04-05 14:31 | XMS_ITS | Encounter Summary ---
Author Organization [employer] Address [address] [place] [address] 7 [place] [address] Care Team Providers Care Substitute Nurse Name Role Phone Rosalind Cardoso Primary Care Provider [phone] Barron Wetzel MD Unavailable Madeline Yo Unavailable Encounter Details Date Type Department Care Team (Late st Contact Info) Description 11/01/2023 Orders Only [facility] MEDICINE [address] [place] [address] Rosalind Cardoso FNP [address] [place], [place] [phone] Type 2 diabetes mellitus with stage 3 [...] [facility] MED & PEDS [address] [place] [address] Rosalind Cardoso, AMMUNITION ASSEMBLY I LABORER [address] [place] [address] documented as of this encounter Procedures Procedure [...] stage 3a or 3b CKD ([facility]) Myalgia MAGNESIUM Routine 11/01/2023 3:53 PM EDT Type 2 diabetes mellitus with stage 3 chronic kidney disease, with long-term current use of insulin, unspecified whether stage 3a or 3b CKD ([facility]) Myalgia COMPREHENSIVE METABOLIC PANEL Routine 11/01/2023 3:53 PM EDT Type 2 diabetes mellitus with stage 3 chronic kidney disease, with long-term current use of insulin, unspecified whether stage 3a or 3b CKD ([facility]) Myalgia documented in this encounter Results * (ABNORMAL) CBC auto differential (11/01/2023 3:58 PM EDT) White Blood Count 10.2 4.8 - 10.8 X10*3/uL [facility] Red Blood Count 5.64(H) 4.20 - 5.50 X10*6/uL [facility] Hemoglobin 10.9(L) 12.0 - 16.0 g/dl [facility] Hematocrit 36.9(L) 37.0 - 47.0 % [facility] Mean Corpuscular Volume 65.4(L) 80.0 - 98.0 fL [facility] Mean Corpuscular Hemoglobin 19.3(L) 27.0 - 33.0 pg [facility] Mean Corpuscular HGB Conc 29.5(L) 31.0 - 35.0 g/dl [facility] Red Cell Distribution Width 18.8(H) 11.0 - 16.0 % [facility] Platelet Count 469(H) 160 - 400 X10*3/uL [facility] Mean Platelet Volume 10.4 9.4 - 12.3 fL [facility] Neutrophils Percent Auto 66.7 45 - 73 % [facility] Imm Gran Pct Auto 0.3 0.0 - 0.4 % [facility] Lymphocytes Percent Auto 22.9 20 - 40 % [facility] Monocytes Percent Auto 6.2 2 - 11 % [facility] Eosinophils Percent Auto 3.3 0 - 4 % [facility] Basophils Percent Auto 0.6 0 - 2 % [facility] NRBC Pct Auto 0.2 0.0 - 0.2 /100WBC [facility] Neutrophils Absolute Auto 6.8 2.0 - 8.3 x10*3/uL [facility] Imm Gran Abs Auto 0.03 0.00 - 0.03 X10*3/uL [facility] Lymphocytes Absolute Auto 2.3 1.2 - 4.9 X10*3/uL [facility] Monocytes Absolute Auto 0.6 0.1 - 1.2 X10*3/uL [facility] Eosinophils Absolute Auto 0.3 0.0 - 0.4 X10*3/uL [facility] Basophils Absolute Auto 0.1 0.0 - 0.2 X10*3/uL [facility] NRBC Abs Auto 0.020(H) 0.0 - 0.012 X10*3/uL [facility] Blood Venous blood specimen / Unknown 11/01/2023 3:58 PM EDT 11/01/2023 5:40 PM EDT us Rosalind Cardoso AMMUNITION ASSEMBLY I LABORER LAB BLOOD ORDERABLES Final Res ult [facility] [address] [place] [phone] * (ABNORMAL) Sed Rate by Modified Marlene (11/01/2023 3:53 PM EDT) Erythrocyte Sedimentation Rate 28(H) 0 - 20 MM/HR [facility] Comment:Patients with polycy themia and many hemoglobin abnormalitiesmay have depressed sed rates whereas patients with anemiamay have elevated sed rates. Blood Venous blood specimen / Unknown 11/01/2023 3:53 PM EDT 11/01/2023 5:40 PM EDT us Rosalind Cardoso AMMUNITION ASSEMBLY I LABORER LAB BLOOD ORDERABLES Final Res ult Performing Organization Address [facility] Co de Phone Number [facility] [address] [place] [phone] * C-reactive Protein (11/01/2023 3:53 PM EDT) C Reactive Protein 0.48 < or = 0.50 mg/dL [facility] Blood Venous blood specimen / Unknown 11/01/2023 3:53 PM EDT 11/01/2023 5:40 PM EDT us Rosalind Cardoso AMMUNITION ASSEMBLY I LABORER LAB BLOOD ORDERABLES Final Res ult Performing Organization Address [facility] Phone Number [facility] [address] [place] [phone] * Magnesium (11/01/2023 3:53 PM EDT) Magnesium 1.7 1.6 - 2.6 mg/dL [facility] Blood Venous blood specimen / Unknown 11/01/2023 3:53 PM EDT 11/01/2023 5:40 PM EDT Rosalind Cardoso AMMUNITION ASSEMBLY I LABORER LAB BLOOD ORDERABLES Final Res ult Performing Organization Address [facility] de Phone Number [facility] [address] [place] [phone] * Prothrombin Time-INR (11/01/2023 3:53 PM EDT) Prothrombin Time 12.3 11.1 - 13.3 SEC [facility] INTERNATIONAL NORM RATIO 1.0 0.9 - 1.1 [facility] Comment:INTERNATIONAL NORMAL IZED RATIO (INR) REFERENCE [...] 11/01/2023 5:40 PM EDT us Rosalind Cardoso AMMUNITION ASSEMBLY I LABORER LAB BLOOD ORDERABLES Final Res ult [facility] [address] [place], [place] [phone] * (ABNORMAL) Comprehensive Metabolic Panel (11/01/2023 3:53 PM EDT) Sodium 140 135 - 145 mmol/L [facility] Potassium 3.9 3.3 - 5.1 mmol/L [facility] Chloride 102 96 - 108 mmol/L [facility] Carbon Dioxide 30(H) 22 - 29 mmol/L [facility] Anion Gap 12 12 - 20 [facility] Urea Nitrogen (BUN) 22(H) 9 - 16 mg/dL [facility] Creatinine, Serum 1.64(H) 0.5 - 1.4 mg/dL [facility] Estimated Glomerular Filt Rate 32 [facility] Comment:NOTE: For -Am erican individuals, multiply the result by 1.210.Chronic Kidney Disease: Estimated GFR < 60 mL/min/[id number] Kidney Disease: Estimated GFR < 15 mL/min/1.73m2 Glucose 237(H) 60 - 115 mg/dL [facility] Calcium 9.3 8.4 - 10.2 mg/dL [facility] Bilirubin, Total 0.3 0.0 - 1.0 mg/dL [facility] Aspartate Amino Transferase 20 5 - 31 U/L [facility] Alanine Aminotransferase 26 0 - 31 U/L [facility] Total Protein 6.8 6.5 - 8.0 g/dL [facility] Albumin Level 3.3(L) 3.5 - 5.0 g/dL [facility] Alkaline Phosphatase 135(H) 39 - 117 U/L [facility] Blood Venous blood specimen / Unknown 11/01/2023 3:53 PM EDT 11/01/2023 5:40 PM EDT us Rosalind MORELOS LAB BLOOD ORDERABLES Final Res ult [facility] [address] [place] [phone] documented in this encounter Visit Diagnoses [...] documented as of this encounter Care Teams Substitute Nurse Relationship Specialty Start Date End Date Rosalind Cardoso FNP [address] [place] [address] PCP - General Family Medicine 04/28/21 Barron Wetzel MD 100 [facility] [address] [place] [address] Nephrology 01/15/25 Madeline Yo [address] [place] [address] 3rd [place] [address] Cardiology 01/15/25 [place] 01/05/25 documented as of this encounter
--- OUTSIDE RECORDS SUMMARY | 2025-04-05 14:31 | XMS_ITS | Encounter Summary ---
Author Organization [employer] Address [address] [place] [address] 7 [place] [address] Care Team Providers Care Director Center Name Role Phone Rosalind Cardoso Primary Care Provider [phone] Barron Wetzel MD Unavailable [phone] Madeline Yo Unavailable Encounter Details Date Type Department Care Team (Late st Contact Info) Description 09/20/2023 Orders Only [facility] MEDICINE [address] [place] [address] Rosalind Cardoso FNP [address] [place], [place] [phone] Type 2 diabetes mellitus with stage 3 [...] 11:15 AM EDT Office Visit [facility] MED & PEDS [address] [place] [address] Rosalind Cardoso, MID LEVEL JAVA DEVELOPER [address] [place] [address] documented as of this encounter Procedures Procedure [...] or 3b CKD ([facility]) Myalgia MAGNESIUM Routine 09/27/2023 9:56 AM EDT Type 2 diabetes mellitus with stage 3 chronic kidney disease, with long-term current use of insulin, unspecified whether stage 3a or 3b CKD ([facility]) Myalgia COMPREHENSIVE METABOLIC PANEL Routine 09/27/2023 9:56 AM EDT Type 2 diabetes mellitus with stage 3 chronic kidney disease, with long-term current use of insulin, unspecified whether stage 3a or 3b CKD ([facility]) Myalgia documented in this encounter Results * (ABNORMAL) Sed Rate by Modified Westergren (09/27/2023 9:56 AM EDT) Erythrocyte Sedimentation Rate 42(H) 0 - 20 MM/HR [facility] Comment:Patients with polycy themia and many hemoglobin abnormalitiesmay have depressed sed rates whereas patients with anemiamay have elevated sed rates. Blood Venous blood specimen / Unknown 09/27/2023 9:56 AM EDT 09/27/2023 9:58 AM EDT us Rosalind Cardoso [facility] LAB BLOOD ORDERABLES Final Res ult [facility] [address] [place] [address] [phone] * (ABNORMAL) C-reactive Protein (09/27/2023 9:56 AM EDT) C Reactive Protein 0.63(H) < or = 0.50 mg/dL [facility] Blood Venous blood specimen / Unknown 09/27/2023 9:56 AM EDT 09/27/2023 9:58 AM EDT us Rosalind Bruceen [facility] LAB BLOOD ORDERABLES Final Res ult Performing Organization Address [facility]/ZIP Co de Phone Number [facility] [address] [place] [phone] * Magnesium (09/27/2023 9:56 AM EDT) Magnesium 1.7 1.6 - 2.6 mg/dL [facility] Blood Venous blood specimen / Unknown 09/27/2023 9:56 AM EDT 09/27/2023 9:58 AM EDT Rosalind Cardoso [facility] LAB BLOOD ORDERABLES Final Res ult Performing Organization Address [facility] de Phone Number [facility] [address] [place] [phone] * Prothrombin Time-INR (09/27/2023 9:56 AM EDT) Prothrombin Time 11.5 11.1 - 13.3 SEC [facility] INTERNATIONAL NORM RATIO 0.9 0.9 - 1.1 [facility] Comment:INTERNATIONAL NORMAL IZED RATIO (INR) REFERENCE [...] EDT 09/27/2023 9:58 AM EDT Rosalind Cardoso [facility] LAB BLOOD ORDERABLES Final Res ult Performing Organization Address [facility] Co de Phone Number [facility] [address] [place] [phone] * (ABNORMAL) Comprehensive Metabolic Panel (09/27/2023 9:56 AM EDT) Sodium 140 135 - 145 mmol/L [facility] Potassium 3.8 3.3 - 5.1 mmol/L [facility] Chloride 105 96 - 108 mmol/L [facility] Carbon Dioxide 27 22 - 29 mmol/L [facility] Anion Gap 12 12 - 20 [facility] Urea Nitrogen (BUN) 36(H) 9 - 16 mg/dL [facility] Creatinine, Serum 1.55(H) 0.5 - 1.4 mg/dL [facility] Estimated Glomerular Filt Rate 34 [facility] Comment:NOTE: For -Am erican individuals, multiply the result by 1.210.Chronic Kidney Disease: Estimated GFR < 60 mL/min/1.24h0Omzpwz Kidney Disease: Estimated GFR < 15 mL/min/1.73m2 Glucose 191(H) 60 - 115 mg/dL [facility] Calcium 9.2 8.4 - 10.2 mg/dL [facility] Bilirubin, Total 0.3 0.0 - 1.0 mg/dL [facility] Aspartate Amino Transferase 22 5 - 31 U/L [facility] Alanine Aminotransferase 35(H) 0 - 31 U/L [facility] Total Protein 6.3(L) 6.5 - 8.0 g/dL [facility] Albumin Level 3.2(L) 3.5 - 5.0 g/dL [facility] Alkaline Phosphatase 125(H) 39 - 117 U/L [facility] Blood Venous blood specimen / Unknown 09/27/2023 9:56 AM EDT 09/27/2023 9:58 AM EDT us Rosalind Cardoso MID LEVEL JAVA DEVELOPER LAB BLOOD ORDERABLES Final Res ult [facility] [address] [place] [phone] * (ABNORMAL) CBC auto differential (09/27/2023 9:56 AM EDT) White Blood Count 8.6 4.8 - 10.8 X10*3/uL [facility] Red Blood Count 4.52 4.20 - 5.50 X10*6/uL [facility] Hemoglobin 8.8(L) 12.0 - 16.0 g/dl [facility] Hematocrit 29.9(L) 37.0 - 47.0 % [facility] Mean Corpuscular Volume 66.2(L) 80.0 - 98.0 fL [facility] Mean Corpuscular Hemoglobin 19.5(L) 27.0 - 33.0 pg [facility] Mean Corpuscular HGB Conc 29.4(L) 31.0 - 35.0 g/dl [facility] Red Cell Distribution Width 18.4(H) 11.0 - 16.0 % [facility] Platelet Count 370 160 - 400 X10*3/uL [facility] Mean Platelet Volume 10.5 9.4 - 12.3 fL [facility] Neutrophils Percent Auto 66.9 45 - 73 % [facility] Imm Gran Pct Auto 0.6(H) 0.0 - 0.4 % [facility] Lymphocytes Percent Auto 21.8 20 - 40 % [facility] Monocytes Percent Auto 7.0 2 - 11 % [facility] Eosinophils Percent Auto 3.0 0 - 4 % [facility] Basophils Percent Auto 0.7 0 - 2 % [facility] NRBC Pct Auto 0.0 0.0 - 0.2 /100WBC [facility] Neutrophils Absolute Auto 5.7 2.0 - 8.3 x10*3/uL [facility] Imm Gran Abs Auto 0.05(H) 0.00 - 0.03 X10*3/uL [facility] Lymphocytes Absolute Auto 1.9 1.2 - 4.9 X10*3/uL [facility] Monocytes Absolute Auto 0.6 0.1 - 1.2 X10*3/uL [facility] Eosinophils Absolute Auto 0.3 0.0 - 0.4 X10*3/uL [facility] Basophils Absolute Auto 0.1 0.0 - 0.2 X10*3/uL [facility] NRBC Abs Auto 0.000 0.0 - 0.012 X10*3/uL [facility] Blood Venous blood specimen / Unknown 09/27/2023 9:56 AM EDT 09/27/2023 9:58 AM EDT us Rosalind MORELOS LAB BLOOD ORDERABLES Final Res ult [facility] [address] [place] [phone] documented in this encounter Visit Diagnoses [...] as of this encounter Care Teams Director Center Relationship Specialty Start Date End Date Rosalind Cardoso FNP [address] [place] [address] PCP - General Family Medicine 04/28/21 Barron Wetzle MD 100 [facility] 200 [place] [address] Nephrology 01/15/25 Madeline Yo [address] [place] [address] 3rd [place] [address] Cardiology 01/15/25 [employer] 01/05/25 documented as of this encounter
--- OUTSIDE RECORDS SUMMARY | 2025-04-05 14:31 | XMS_ITS | Encounter Summary ---
Author Organization [employer] Address [address] [place] [address] 7 [place] [address] Care Team Providers Care Field Advisor Name Role Phone Rosalind Cardoso Primary Care Provider [phone] Barron Wetzel MD Unavailable [phone] Madeline Yo Unavailable Encounter Details Date Type Department Care Team (Late st Contact Info) Description 01/10/2024 Orders Only [facility] MEDICINE [address] [place] [address] Rosalind Cardoso FNP [address] [place], [place] [phone] Type 2 diabetes mellitus with stage 3 [...] [facility] MED & PEDS [address] [place] [address] Rosalind Cardoso, TAMY [address] [place] [address] documented as of this encounter Procedures Procedure Name Priority Date/Time Associated Diagnosis Comments PROTHROMBIN TIME-INR Routine 01/17/2024 12:30 PM EDT Type 2 diabetes mellitus with stage 3 chronic kidney disease, with long-term current use of insulin, unspecified whether stage 3a or 3b CKD ([facility]) Myalgia documented in this encounter Results * Prothrombin Time-INR (01/17/2024 12:30 PM EDT) Prothrombin Time 11.4 11.1 - 13.3 SEC [facility] INTERNATIONAL NORM RATIO 0.9 0.9 - 1.1 [facility] Comment:INTERNATIONAL NORMAL IZED RATIO [...] MORELOS LAB BLOOD ORDERABLES Final Res ult [facility] [address] [place] [address] [phone] documented in this encounter Visit Diagnoses [...] documented as of this encounter Care Teams Field Advisor Relationship Specialty Start Date End Date Rosalind Cardoso FNP [address] [place] [address] PCP - General Family Medicine 04/28/21 Barron Wetzel MD 100 [facility] 200 [place] [address] Nephrology 01/15/25 Madeline Yo [address] [place] [address] 3rd [place] [address] Cardiology 01/15/25 [employer] 01/05/25 documented as of this encounter
--- OUTSIDE RECORDS SUMMARY | 2025-04-05 14:31 | XMS_ITS | Encounter Summary ---
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) Rosalind Cardoso FNP [address] [place] [address] Phone: tel: fax: [facility] Referral ID Status Reason Start Date Expiration Date V isits Requested Visits Authorized [id number] Closed Specialty Services Required 11/28/2023 11/27/2024 1 1 * Consultation (Routine) - Closed Specialty Diagnoses / Procedures Referred By Anthony reyes Referred To Contact Physical Therapy Diagnoses Cervicalgia Fibromyalgia 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) Rosalind Cardoso FNP [address] [place] [address] Phone: tel: fax: [facility] [address] [place] [address] Phone: tel: fax: Referral ID Status Reason Start Date Expiration Date V isits Requested Visits Authorized [id number] Closed Specialty Services Required 11/28/2023 11/27/2024 1 1 Reason for Visit * Reason Onset Date Comments Referral 11/25/2023 Results 11/25/2023 Encounter Details Date Type Department Care Team ([facility] st Contact Info) Description 11/25/2023 Telephone [facility] MED & PEDS [address] [place] [address] Rosalind Cardoso FNP [address] [place] [address] Referral; Results Social History Tobacco Use Types [...] lisinopril, 10 mg starting last month by manager emergency department along with continuing furosemide, 80 mg. Pt is also requesting new referral to [facility] for full body acupuncture and full body massage respectively. Originally was written [facility] pt was unable to go due to being sick and leg swelling. Called [facility] at [phone], spoke to Stella and confirmed a referral was sent and another needs to be sent so insurance cancover it. Their fax is [phone]. Also called [facility] and got their fax number which is [phone]. Pt is also waiting for results of US done on kidney at [facility] on 11/19. Advised that results may take [...] referral : DATE: n/a TIME: n/a Address: [address] [place] [address] Visits: n/a Facility Name: [facility] Type of Specialist: Acupuncture DX: amputation and Fibromyalgia Phone # : [phone] Fax #: n/a TC from pt requesting call back regarding Results. Type of results: labs Date when done: 11/19 Facility: [facility] Pt is also calling to advise provider manager emergency department increased dosage of furosemide (Lasix) 20 MG tablet to 80 mg. Advise to continue medication for a week and do blood work by end of this week. 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 ([facility]) Expected: 11/28/2023 (Approximate), Expires: 11/27/2024 Referral for Acupuncture Outpatient Referral Routine Cervicalgia Fibromyalgia History of amputation of left leg through tibia and fibula ([facility]) Expected: 11/28/2023 (Approximate), Expires: 11/27/2024 documented as of this encounter Visit Diagnoses Diagnosis Cervicalgia- Primary Fibromyalgia Unspecified myalgia and myositis 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 ([facility]) documented in this encounter Additional Health Concerns Assessment Noted Time PHQ-9 Depression Total Score: 0 12/26/19 1:09 PM EDT documented as of this encounter Care Teams Hand Method Lasting Machine Operator Relationship Specialty Start Date End Date Rosalind Cardoso FNP [address] [place] [address] PCP - General Family Medicine 04/28/21 Barron Wetzel MD 100 [facility] 200 [place] [address] Nephrology 01/15/25 Madeline Yo [address] [place] [address] 3rd [place] [address] Cardiology 01/15/25 [employer] 01/05/25 documented as of this encounter
--- OUTSIDE RECORDS SUMMARY | 2025-04-05 14:31 | XMS_ITS | Encounter Summary ---
Author Organization [employer] Address [address] [place] [address] 7[address] [place] [address] Care Team Providers Care Disintegrator Feeder Name Role Phone Rosalind Cardoso Primary Care Provider [phone] Barron Wetzel MD Unavailable [phone] Madeline Yo Unavailable Encounter Details Date Type Department Care Team (Late st Contact Info) Description 10/29/2023 Telephone [facility] MEDICINE [address] [place] [address] Rosalind Cardoso FNP [address] [place], [place] [phone] Social History Tobacco Use Types Packs/Day Years [...] [facility] [address] [place] [address] Rosalind Cardoso FNP [address] [place] [address] documented as of this encounter Visit Diagnoses Not on filedocumented in this encounter Additional Health Concerns Assessment Noted Time PHQ-9 Depression Total Score: 0 12/26/19 23 1:09 PM EDT documented as of this encounter Care Teams Disintegrator Feeder Relationship Specialty Start Date End Date Rosalind Cardoso FNP [address] [place] [address] PCP - General Family Medicine 04/28/21 Barron Wetzel MD [address] [facility] 200 [place] [address] Nephrology 01/15/25 Madeline Yo [address] 3rd [place] [address] Cardiology 01/15/25 [employer] 01/05/25 documented as of this encounter
--- OUTSIDE RECORDS SUMMARY | 2025-04-05 14:31 | XMS_ITS | Encounter Summary ---
Author Organization [employer] Address [address] [place] [address] 7t [place] [address] Care Team Providers Care Clutch Rebuilder Name Role Phone Rosalind Cardoso Primary Care Provider [phone] Barron Wetzel MD Unavailable [phone] Madeline Yo Unavailable Encounter Details Date Type Department Care Team ([facility] Contact Info) Description 10/19/2022 Telephone [facility] MEDICINE [address] [place] [address] Rosalind Cardoso FNP 505 [place], [place] [phone] Social History Tobacco Use Types Packs/Day Years [...] Encounters Date Type Department Care Team ([facility] Contact Info) Description 05/03/2025 11:15 AM EDT Office Visit [facility] MED & PEDS [address] [place] [address] Rosalind Cardoso FNP [address] [place] [address] documented as of this encounter Visit Diagnoses Not on filedocumented in this encounter Care Teams Clutch Rebuilder Relationship Specialty Start Date End Date Rosalind Cardoso FNP [address] [place] [address] PCP - General Family Medicine 04/28/21 Barron Wetzel MD [address] [address] Nephrology 01/15/25 Madeline Yo [address] [place] [address] Drive 3rd [place] [address] Cardiology 01/15/25 [facility] 01/05/25 documented as of this encounter
--- OUTSIDE RECORDS SUMMARY | 2025-04-05 14:31 | XMS_ITS | Encounter Summary ---
Author Organization [employer] Address [address] [place] [address] 7 [place] [address] Care Team Providers Care Medical Office Technology Instructor Name Role Phone Rosalind Cardoso Primary Care Provider [phone] Barron Wetzel MD Unavailable [phone] Madeline Yo Unavailable Encounter Details Date Type Department Care Team (Late st Contact Info) Description 12/13/2023 Orders Only [facility] MEDICINE 230 [place] [address] Rosalind Cardoso FNP [address] [place], [place] [phone] Type 2 diabetes mellitus with stage 3 [...] AM EDT Office Visit [facility] MED & PEDS 505 [place] [address] Rosalind Cardoso, DIRECTOR OF SERVICES 505 [place] [address] documented as of this encounter Procedures Procedure Name Priority Date/Time Associated Diagnosis Comments CBC WITH AUTO DIFFERENTIAL Routine 12/13/2023 8:52 AM EDT Type 2 diabetes mellitus with stage 3 chronic kidney disease, with long-term current use of insulin, unspecified whether stage 3a or 3b CKD ([facility]) Myalgia B TYPE NATRIURETIC PEPTIDE (BNP) Routine 12/13/2023 8:52 AM EDT Type 2 diabetes mellitus with stage 3 chronic kidney disease, with long-term current use of insulin, unspecified whether stage 3a or 3b CKD (CMS/HCC) documented in this encounter Results * (ABNORMAL) B Type Natriuretic Peptide (BNP) (12/13/2023 8:52 AM EDT) B Type Natriuretic Peptide 1,216(H) <100 pg/mL LABS Comment:For those patients w ho are being treated with Natrecor(nesiritide, recombinant BNP), BNP testing should beperformed at least two hours post treatment in order toensure that only endogenous levels of BNP are detected. 12/13/2023 8:52 AM EDT 12/13/2023 8:52 AM EDT us Generic External Data Provider LAB BLOOD ORDERAB LES Final Result LABS [address] [place] [address] [phone] * (ABNORMAL) CBC auto differential (12/13/2023 8:52 AM EDT) White Blood Count 9.1 4.8 - 10.8 X10*3/uL LABS Red Blood Count 6.02(H) 4.20 - 5.50 X10*6/uL LABS Hemoglobin 11.4(L) 12.0 - 16.0 g/dl LABS Hematocrit 37.7 37.0 - 47.0 % LABS Mean Corpuscular Volume 62.6(L) 80.0 - 98.0 fL LABS Mean Corpuscular Hemoglobin 18.9(L) 27.0 - 33.0 pg LABS Mean Corpuscular HGB Conc 30.2(L) 31.0 - 35.0 g/dl LABS Red Cell Distribution Width 17.2(H) 11.0 - 16.0 % LABS Platelet Count 285 160 - 400 X10*3/uL LABS Mean Platelet Volume 10.8 9.4 - 12.3 fL LABS Neutrophils Percent Auto 51.6 45 - 73 % LABS Imm Gran Pct Auto 0.4 0.0 - 0.4 % LABS Lymphocytes Percent Auto 36.9 20 - 40 % LABS Monocytes Percent Auto 7.7 2 - 11 % LABS Eosinophils Percent Auto 2.8 0 - 4 % LABS Basophils Percent Auto 0.6 0 - 2 % LABS NRBC Pct Auto 0.0 0.0 - 0.2 /100WBC LABS Neutrophils Absolute Auto 4.7 2.0 - 8.3 x10*3/uL LABS Imm Gran Abs Auto 0.04(H) 0.00 - 0.03 X10*3/uL LABS Lymphocytes Absolute Auto 3.3 1.2 - 4.9 X10*3/uL LABS Monocytes Absolute Auto 0.7 0.1 - 1.2 X10*3/uL LABS Eosinophils Absolute Auto 0.3 0.0 - 0.4 X10*3/uL LABS Basophils Absolute Auto 0.1 0.0 - 0.2 X10*3/uL LABS NRBC Abs Auto 0.000 0.0 - 0.012 X10*3/uL LABS Blood Venous blood specimen / Unknown 12/13/2023 8:52 AM EDT 12/13/2023 8:52 AM EDT us Rosalind MORELOS LAB BLOOD ORDERABLES Final Res ult LABS [address] [place] [address] [phone] documented in this encounter Visit Diagnoses [...] as of this encounter Care Teams Medical Office Technology Instructor Relationship Specialty Start Date End Date Rosalind Cardoso FNP [address] [place] [address] PCP - General Family Medicine 04/28/21 Barron Wetzel MD [address] [place] [address] Nephrology 01/15/25 Madeline Yo [address] [place] [address] 3rd [place] [address] Cardiology 01/15/25 [employer] 01/05/25 documented as of this encounter
--- OUTSIDE RECORDS SUMMARY | 2025-04-05 14:31 | XMS_ITS | Encounter Summary ---
Author Organization [employer] Address [address] [place] [address] 7t [place] [address] Care Team Providers Care National Sales Director Name Role Phone TeoRosalind bishop TAMY Primary Care Provider [phone] Barron Wetzel MD Unavailable [phone] Srinath, Madeline Unavailable Encounter Details Date Type Department Care Team ([facility] Contact Info) Description 04/05/2025 Orders Only GENERIC EXTERNAL DATA DEPARTMENT Provider, [...] Upcoming Encounters Date Type Department Care Team ([facility] st Contact Info) Description 05/03/2025 11:15 AM EDT Office Visit [facility] MED & PEDS 505 [place], [place] [phone] Rosalind Cardoso, WIRE COMMUNICATIONS ENGINEER 505 [place], [place] [phone] documented as of this encounter Procedures Procedure Name Priority Date/Time Associated Diagnosis Comments CBC WITH AUTO DIFFERENTIAL Routine 04/05/2025 1:41 PM EDT documented in this encounter Results * (ABNORMAL) CBC auto differential (04/05/2025 1:41 PM EDT) White Blood Count 9.1 4.8 - 10.8 X10*3/uL [facility] Red Blood Count 5.95(H) 4.20 - 5.50 X10*6/uL [facility] Hemoglobin 11.2(L) 12.0 - 16.0 g/dl [facility] Hematocrit 36.7(L) 37.0 - 47.0 % [facility] Mean Corpuscular Volume 61.7(L) 80.0 - 98.0 fL [facility] Mean Corpuscular Hemoglobin 18.8(L) 27.0 - 33.0 pg [facility] Mean Corpuscular HGB Conc 30.5(L) 31.0 - 35.0 g/dl [facility] Red Cell Distribution Width 18.3(H) 11.0 - 16.0 % [facility] Platelet Count 297 160 - 400 X10*3/uL [facility] Mean Platelet Volume TNP 9.4 - 12.3 fL [facility] Neutrophils Percent Auto 58.9 45 - 73 % [facility] Imm Gran Pct Auto 0.2 0.0 - 0.4 % [facility] Lymphocytes Percent Auto 27.5 20 - 40 % [facility] Monocytes Percent Auto 9.2 2 - 11 % [facility] Eosinophils Percent Auto 3.5 0 - 4 % [facility] Basophils Percent Auto 0.7 0 - 2 % [facility] NRBC Pct Auto 0.0 0.0 - 0.2 /100WBC [facility] Neutrophils Absolute Auto 5.4 2.0 - 8.3 x10*3/uL [facility] Imm Gran Abs Auto 0.02 0.00 - 0.03 X10*3/uL [facility] Lymphocytes Absolute Auto 2.5 1.2 - 4.9 X10*3/uL [facility] Monocytes Absolute Auto 0.8 0.1 - 1.2 X10*3/uL [facility] Eosinophils Absolute Auto 0.3 0.0 - 0.4 X10*3/uL [facility] Basophils Absolute Auto 0.1 0.0 - 0.2 X10*3/uL [facility] NRBC Abs Auto 0.000 0.0 - 0.012 X10*3/uL [facility] 04/05/2025 1:41 PM EDT 04/05/2025 1:41 PM EDT us Generic External Data Provider LAB BLOOD ORDERAB LES Final Result [facility] [address] [place] [address] [phone] documented in this encounter Visit Diagnoses Not on filedocumented in this encounter Additional Health Concerns Assessment Noted Time PHQ-9 Depression Total Score: 6 08/03/19 25 9:07 AM EST documented as of this encounter Care Teams National Sales Director Relationship Specialty Start Date End Date Rosalind Cardoso FNP 230 [place] [address] PCP - General Family Medicine 04/28/21 Barron Wetzel MD 100 [facility] 200 [place] [address] Nephrology 01/15/25 Madeline Yo [address] [place] [address] 3rd [place] [address] Cardiology 01/15/25 [place] 01/05/25 documented as of this encounter
--- OUTSIDE RECORDS SUMMARY | 2025-04-05 14:31 | XMS_ITS | Encounter Summary ---
Author Organization [employer] Address [address] [place] [address] 7 [place] [address] Care Team Providers Care Hydraulic Press Tender Name Role Phone Rosalind Cardoso Primary Care Provider [phone] Barron Wetzel MD Unavailable [phone] Madeline Yo Unavailable Reason for Visit * Reason Onset Date Comments Results 08/06/2023 Encounter Details Date Type Department Care Team ([facility] st Contact Info) Description 08/06/2023 Telephone [facility] MED & PEDS 505 [place], [place] [phone] Rosalind Cardoso FNP 505 [place], [place] [phone] Results Social History Tobacco Use Types Packs/Day [...] results: labs Date when done: 08/06 Facility: [facility] Please contact pt at [phone] documented in this encounter Plan of Treatment Upcoming Encounters Date Type Department Care Team (Late st Contact Info) Description 05/03/2025 11:15 AM EDT Office Visit [facility] MED & PEDS [address] [place] [address] Rosalind Cardoso FNP 505 [place] [address] documented as of this encounter Visit Diagnoses Not on filedocumented in this encounter Additional Health Concerns Assessment Noted Time PHQ-9 Depression Total Score: 0 12/26/19 23 1:09 PM EDT documented as of this encounter Care Teams Hydraulic Press Tender Relationship Specialty Start Date End Date Rosalind Cardoso FNP [address] [place] [address] PCP - General Family Medicine 04/28/21 Barron Wetzel MD 100 [facility] 200 [place] [address] Nephrology 01/15/25 Madeline Yo [address] [place] [address] 3rd [place] [address] Cardiology 01/15/25 [employer] 01/05/25 documented as of this encounter
--- OUTSIDE RECORDS SUMMARY | 2025-04-05 14:31 | XMS_ITS | Encounter Summary ---
Author Organization [employer] Address [address] [place] [address] 7 [place] [address] Care Team Providers Care E Tailer Name Role Phone Rosalind Cardoso Primary Care Provider [phone] Barron Wetzel MD Unavailable [phone] Madeline Yo Unavailable Encounter Details Date Type Department Care Team (Late st Contact Info) Description 10/04/2023 Orders Only [facility] MEDICINE 230 [place] [address] Rosalind Cardoso FNP [address] [place], [place] [phone] Type 2 diabetes mellitus with stage 3 [...] [facility] MED & PEDS 505 [place] [address] Rosalind Cardoso, LANDSCAPE ARCHITECTURE TEACHER 505 [place] [address] documented as of this encounter Procedures Procedure [...] Sedimentation Rate 46(H) 0 - 20 MM/HR [facility] Comment:Patients with polycy themia and many hemoglobin abnormalitiesmay have depressed sed rates whereas patients with anemiamay have elevated sed rates. Blood Venous blood specimen / Unknown 10/25/2023 1:09 PM EDT 10/25/2023 1:09 PM EDT Rosalind Cardoso LANDSCAPE ARCHITECTURE TEACHER LAB BLOOD ORDERABLES Final Res ult Performing Organization Address [facility] Co de Phone Number [facility] [address] [place] [phone] * Prothrombin Time-INR (10/25/2023 1:09 PM EDT) Prothrombin Time 12.3 11.1 - 13.3 SEC [facility] INTERNATIONAL NORM RATIO 1.0 0.9 - 1.1 [facility] Comment:INTERNATIONAL NORMAL IZED RATIO [...] EDT 10/25/2023 1:09 PM EDT Rosalind Cardoso [facility] LAB BLOOD ORDERABLES Final Res ult Performing Organization Address [facility] Co de Phone Number [facility] [address] [place] [phone] documented in this encounter Visit Diagnoses [...] documented as of this encounter Care Teams E Tailer Relationship Specialty Start Date End Date Rosalind Cardoso FNP 230 [place] [address] PCP - General Family Medicine 04/28/21 Barron Wetzel MD [address] [facility] 200 [place] [address] Nephrology 01/15/25 Madeline Yo [address] [place] [address] 3rd [place] [address] Cardiology 01/15/25 [facility] 01/05/25 documented as of this encounter
--- OUTSIDE RECORDS SUMMARY | 2025-04-05 14:31 | XMS_ITS | Encounter Summary ---
Author Organization [employer] Address [address] [place] [address] 7t [place] [address] Care Team Providers Care Commercial Interior Designer Name Role Phone Rosalind Cardoso Primary Care Provider [phone] Barron Wetzel MD Unavailable [phone] Madeline Yo Unavailable Reason for Visit * Reason Onset Date Comments Results 08/29/2023 Encounter Details Date Type Department Care Team (Late st Contact Info) Description 08/29/2023 Telephone [facility] MEDICINE 230 [place] [address] Rosalind Cardoso FNP [address] [place], [place] [phone] Results Social History Tobacco Use Types Packs/Day [...] done today 08/29/23. Please contact pt @ [phone] documented in this encounter Plan of Treatment Upcoming Encounters Date Type Department Care Team (Late st Contact Info) Description 05/03/2025 11:15 AM EDT Office Visit [facility] MED & PEDS [address] [place] [address] Rosalind Cardoso FNP 505 [place] [address] documented as of this encounter Visit Diagnoses Not on filedocumented in this encounter Additional Health Concerns Assessment Noted Time PHQ-9 Depression Total Score: 0 12/26/19 23 1:09 PM EDT documented as of this encounter Care Teams Commercial Interior Designer Relationship Specialty Start Date End Date Rosalind Cardoso FNP [address] [place] [address] PCP - General Family Medicine 04/28/21 Barron Wetzel MD [address] [address] Nephrology 01/15/25 Madeline Yo [address] [place] [address] 3rd [place] [address] Cardiology 01/15/25 [employer] 01/05/25 documented as of this encounter
--- OUTSIDE RECORDS SUMMARY | 2025-04-05 14:31 | XMS_ITS | Encounter Summary ---
Author Organization [employer] Address [address] [place] [address] 7 [place] [address] Care Team Providers Care Milling/Polishing Operator Name Role Phone Rosalind Cardoso Primary Care Provider [phone] Barron Wetzel MD Unavailable [phone] Madeline Yo Unavailable Reason for Visit * Reason Onset Date Comments Referral Renewal 07/18/2023 Encounter Details Date Type Department Care Team (Late st Contact Info) Description 07/18/2023 Telephone [facility] MEDICINE 230 [place] [address] Rosalind Cardoso FNP [address] [place], [place] [phone] Referral Renewal Social History Tobacco Use Types [...] - 07/24/2023 2:27 PM EST Referral to [facility] [place] and physical therapy placed, thank you! * Telephone Encounter - Tiffanie Marquez RN - 07/19/2023 1:10 PM EST Returned call to pt regarding message below. Pt states she is requesting the same services she was getting to [facility] [place] [facility] for PT and OT due to transportation. [facility] can offer pt transportation. Pt states she [...] following with Physical therapy and OT at [facility] (2x/week) for hx of left BKA. Please confirm that she is interested in switching locations, as well as confirm that still for same diagnosis. Thank you! * Telephone Encounter - Mario Diamond - 07/18/2023 12:11 PM EST Tc from patient calling to get a referral renewal for PT and OT and would like to be sent to [facility] at [address] [facility], [place] [address] documented in this encounter Plan of Treatment Upcoming Encounters Date Type Department Care Team ([facility] st Contact Info) Description 05/03/2025 11:15 AM EDT Office Visit [facility] MED & PEDS 505 [place] [address] Rosalind Cardoso FNP 505 [place] [address] documented as of this encounter Visit Diagnoses Diagnosis 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)- Primary documented in this encounter Additional Health Concerns Assessment Noted Time PHQ-9 Depression Total Score: 0 12/26/19 23 1:09 PM EDT documented as of this encounter Care Teams Milling/Polishing Operator Relationship Specialty Start Date End Date Rosalind Cardoso FNP [address] [place] [address] PCP - General Family Medicine 04/28/21 Barron Wetzel MD 100 [facility] 200 [place] [address] Nephrology 01/15/25 Madelien Yo 11 [facility] 3rd [place] [address] Cardiology 01/15/25 [employer] 01/05/25 documented as of this encounter
--- OUTSIDE RECORDS SUMMARY | 2025-04-05 14:31 | XMS_ITS | Encounter Summary ---
Author Organization [employer] Address [address] [place] [address] 7 [place] [address] Care Team Providers Care Chef & Owner Name Role Phone TeoRosalind bishop TAMY Primary Care Provider [phone] Barron Wetzel MD Unavailable Srinath, Madeline Unavailable Reason for Visit * Reason Comments Med Refill Encounter Details Date Type Department Care Team ([facility] Contact Info) Description 10/23/2022 Refill [facility] MEDICINE 230 [place] [address] Name, MD Jaiden 230 [place] [address] Social History Tobacco Use Types Packs/Day Years [...] Upcoming Encounters Date Type Department Care Team ([facility] Contact Info) Description 05/03/2025 11:15 AM EDT Office Visit [facility] MED & PEDS [address] [place] [address] Rosalind Cardoso FNP [address] [place] [address] documented as of this encounter Visit Diagnoses Not on filedocumented in this encounter Care Teams Chef & Owner Relationship Specialty Start Date End Date Rosalind Cardoso FNP [address] [place] [address] PCP - General Family Medicine 04/28/21 Barron Wetzel MD [address] [address] Nephrology 01/15/25 Madeline Yo [address] [place] [address] 3rd [place] [address] Cardiology 01/15/25 [employer] 01/05/25 documented as of this encounter
--- OUTSIDE RECORDS SUMMARY | 2025-04-05 14:31 | XMS_ITS | Encounter Summary ---
Author Organization [employer] Address [address] [place] [address] 7 [place] [address] Care Team Providers Care Shift Lab Technician Name Role Phone Rosalind Cardoso Primary Care Provider [phone] Barron Wetzel MD Unavailable [phone] Madeline Yo Unavailable Reason for Visit * Reason Onset Date Comments Results 10/25/2023 Encounter Details Date Type Department Care Team (Late st Contact Info) Description 10/25/2023 Telephone [facility] MEDICINE 230 [place] [address] Rosalind Cardoso FNP [address] [place], [place] [phone] Results Social History Tobacco Use Types Packs/Day [...] results: Labs Date when done: 10/24 Facility: [facility] * Telephone Encounter - Bahman Hutchinson - 10/25/2023 3:16 PM EDT TC from pt requesting call back regarding Results. Type of results: Labs Date when done: 10/24 Facility: [facility] documented in this encounter Plan of Treatment Upcoming Encounters Date Type Department Care Team (Late st Contact Info) Description 05/03/2025 11:15 AM EDT Office Visit [facility] MED & PEDS 505 [place], [place] [phone] Rosalind Cardoso FNP [address] [place] [address] documented as of this encounter Visit Diagnoses Not on filedocumented in this encounter Additional Health Concerns Assessment Noted Time PHQ-9 Depression Total Score: 0 12/26/19 23 1:09 PM EDT documented as of this encounter Care Teams Shift Lab Technician Relationship Specialty Start Date End Date Rosalind Cardoso FNP [address] [place] [address] PCP - General Family Medicine 04/28/21 Barron Wetzel MD 100 [facility] 200 [place] [address] Nephrology 01/15/25 Madeline Yo [address] [place] [address] 3rd [place] [address] Cardiology 01/15/25 [employer] 01/05/25 documented as of this encounter
--- OUTSIDE RECORDS SUMMARY | 2025-04-05 14:31 | XMS_ITS | Encounter Summary ---
Author Organization [employer] Address [address] [place] [address] 7 [place] [address] Care Team Providers Care Hardboard Press Operator Name Role Phone Rosalind Cardoso Primary Care Provider [phone] Barron Wetzel MD Unavailable [phone] Madeline Yo Unavailable Reason for Visit * Reason Onset Date Comments Medication Question 10/22/2023 Encounter Details Date Type Department Care Team (Late st Contact Info) Description 10/22/2023 Telephone [facility] MEDICINE 230 [place] [address] Rosalind Cardoso FNP [address] [place], [place] [phone] Medication Question Social History Tobacco Use Types [...] Description 05/03/2025 11:15 AM EDT Office Visit [facility] MED & PEDS 505 [place] [address] Rosalind Cardoso FNP 505 [place] [address] documented as of this encounter Visit Diagnoses Not on filedocumented in this encounter Additional Health Concerns Assessment Noted Time PHQ-9 Depression Total Score: 0 12/26/19 23 1:09 PM EDT documented as of this encounter Care Teams Hardboard Press Operator Relationship Specialty Start Date End Date Rosalind Cardoso FNP 230 [place] [address] PCP - General Family Medicine 04/28/21 Barron Wetzel MD 100 [facility] 200 [place] [address] Nephrology 01/15/25 Madeline Yo [address] [place] [address] Drive 3rd Floor [place] [address] Cardiology 01/15/25 [employer] 01/05/25 documented as of this encounter
--- OUTSIDE RECORDS SUMMARY | 2025-04-05 14:31 | XMS_ITS | Encounter Summary ---
Author Organization [employer] Address [address] [place] [address] 7 [place] [address] Care Team Providers Care Rope Rider Name Role Phone Rosalind Cardoso Primary Care Provider [phone] Barorn Wetzel MD Unavailable [phone] Madeline Yo Unavailable Reason for Visit * Reason Onset Date Comments FYI 09/10/2022 Encounter Details Date Type Department Care Team (Late st Contact Info) Description 09/10/2022 Telephone [facility] MED[facility]INE [address] [place] [address] Rosalind Cardoso FNP [address] [place], [place] [phone] FY Social History Tobacco Use Types Packs/Day [...] If any question please contact Nae at [phone] documented in this encounter Plan of Treatment Upcoming Encounters Date Type Department Care Team (Late st Contact Info) Description 05/03/2025 11:15 AM EDT Office Visit [facility] 505 [place], [place] [phone] Rosalind Cardoso FNP 505 [place] [address] documented as of this encounter Visit Diagnoses Not on filedocumented in this encounter Care Teams Rope Rider Relationship Specialty Start Date End Date Rosalind Cardoso FNP [address] [place] [address] PCP - General Family Medicine 04/28/21 Barron Wetzel MD 100 [facility] 200 [place] [address] Nephrology 01/15/25 Madeline Yo [address] [place] [address] 3rd [place] [address] Cardiology 01/15/25 [employer] 01/05/25 documented as of this encounter
--- OUTSIDE RECORDS SUMMARY | 2025-04-05 14:31 | XMS_ITS | Encounter Summary ---
Author Organization [employer] Address [address] [place] [address] 7 [place] [address] Care Team Providers Care Menu Planner Name Role Phone Rosalind Cardoso Primary Care Provider [phone] Barron Wetzel MD Unavailable [phone] Madeline Yo Unavailable Encounter Details Date Type Department Care Team (Late st Contact Info) Description 01/24/2024 Orders Only [facility] MEDICINE [address] [place] [address] Rosalind Cardoso FNP [address] [place], [place] [phone] Type 2 diabetes mellitus with stage 3 [...] 11:15 AM EDT Office Visit [facility] PED[facility] 505 [place] [address] Rosalind Cardoso, TAMY 505 [place] [address] documented as of this encounter Procedures Procedure [...] EST) Magnesium 2.0 1.6 - 2.6 mg/dL [facility] Blood Venous blood specimen / Unknown 05/29/2024 2:18 PM EST 05/29/2024 2:18 PM EST Rosalind Cardoso [facility] BLOOD ORDERABLES Final Res ult Performing Organization Address [facility]/ZIP Co de Phone Number [facility] [address] [place] [address] [phone] * Prothrombin Time-INR (05/29/2024 2:18 PM [...] EST 05/29/2024 2:18 PM EST Rosalind Cardoso [facility] BLOOD ORDERABLES Final Res ult Performing Organization Address [facility] Co de Phone Number [facility] [address] [place] [address] [phone] documented in this encounter Visit Diagnoses [...] documented as of this encounter Care Teams Menu Planner Relationship Specialty Start Date End Date Rosalind Cardoso FNP [address] [place] [address] PCP - General Family Medicine 04/28/21 Barron Wetzel MD 100 [facility] 200 [place] [address] Nephrology 01/15/25 Madeline Yo [address] [place] [address] 3rd [place] [address] Cardiology 01/15/25 [employer] 01/05/25 documented as of this encounter
--- OUTSIDE RECORDS SUMMARY | 2025-04-05 14:31 | XMS_ITS | Encounter Summary ---
Author Organization [employer] Address [address] [place] [address] 7t [place] [address] Care Team Providers Care Powerhouse Electrician Apprentice Name Role Phone Rosalind Cardoso Primary Care Provider [phone] Barron Wetzel MD Unavailable [phone] Madeline Yo Unavailable Encounter Details Date Type Department Care Team (Late st Contact Info) Description 09/18/2023 Telephone [facility] MEDICINE [address] [place] [address] Rosalind Cardoso FNP [address] [place], [place] [phone] Social History Tobacco Use Types Packs/Day Years [...] a call for for televisit with pcp, residential mortgage underwriter didn't see anything tasked. Please contact pt at [phone]. documented in this encounter Plan of Treatment Upcoming Encounters Date Type Department Care Team (Late st Contact Info) Description 05/03/2025 11:15 AM EDT Office Visit [facility] [address] [place] [address] Rosalind Cardoso FNP 505 [place] [address] documented as of this encounter Visit Diagnoses Not on filedocumented in this encounter Additional Health Concerns Assessment Noted Time PHQ-9 Depression Total Score: 0 12/26/19 23 1:09 PM EDT documented as of this encounter Care Teams Powerhouse Electrician Apprentice Relationship Specialty Start Date End Date Rosalind Cardoso FNP [address] [place] [address] PCP - General Family Medicine 04/28/21 Barron Wetzel MD 100 [facility] 200 [place] [address] Nephrology 01/15/25 Madeline Yo [address] 3rd [place] [address] Cardiology 01/15/25 [employer] 01/05/25 documented as of this encounter
--- OUTSIDE RECORDS SUMMARY | 2025-04-05 14:31 | XMS_ITS | Encounter Summary ---
Author Organization [employer] Address [address] [place] [address] 7 [place] [address] Care Team Providers Care Shiftman Name Role Phone Rosalind Cardoso Primary Care Provider [phone] Barron Wetzel MD Unavailable [phone] Madeline Yo Unavailable Encounter Details Date Type Department Care Team (Late st Contact Info) Description 12/20/2023 Orders Only [facility]S 505 [place], [place] [phone] Rosalind Cardoso FNP 505 [place], [place] [phone] Type 2 diabetes mellitus with stage 3 [...] the past 12 months, has t he [employer], gas, oil or water company threatened to [...] Description 05/03/2025 11:15 AM EDT Office Visit [facility] MED [facility] PED[facility] [address] [place] [address] Rosalind Cardoso, TAMY 505 [place] [address] documented as of this encounter Procedures Procedure [...] of left leg through tibia and fibula ([facility]/HCC) documented in this encounter Results * C-reactive Protein (12/27/2023 9:33 AM EDT) C Reactive Protein 0.46 < or = 0.50 mg/dL [facility] Blood Venous blood specimen / Unknown 12/27/2023 9:33 AM EDT 12/27/2023 9:33 AM EDT us Rosalind Cardoso [employer]INE [employer] LAB BLOOD ORDERABLES Final Res ult [facility] [address] [place] [phone] * (ABNORMAL) Sed Rate by Modified Javierren (12/27/2023 9:33 AM EDT) Erythrocyte Sedimentation Rate 36(H) 0 - 20 MM/HR [facility] Comment:Patients with polycy themia and many hemoglobin abnormalitiesmay have depressed sed rates whereas patients with anemiamay have elevated sed rates. Blood Venous blood specimen / Unknown 12/27/2023 9:33 AM EDT 12/27/2023 9:33 AM EDT Rosalind Cardoso WINE MANAGER LAB BLOOD ORDERABLES Final Res ult Performing Organization Address [facility] Co de Phone Number [facility] [address] [place] [phone] * Magnesium (12/27/2023 9:33 AM EDT) Magnesium 2.2 1.6 - 2.6 mg/dL [facility] Blood Venous blood specimen / Unknown 12/27/2023 9:33 AM EDT 12/27/2023 9:33 AM EDT Rosalind Cardoso WINE MANAGER LAB BLOOD ORDERABLES Final Res ult Performing Organization Address [facility] de Phone Number [facility] [address] [place] [phone] * (ABNORMAL) Comprehensive Metabolic Panel (12/27/2023 9:33 AM EDT) Sodium 141 135 - 145 mmol/L [facility] Potassium 3.8 3.3 - 5.1 mmol/L [facility] Chloride 105 96 - 108 mmol/L [facility] Carbon Dioxide 28 22 - 29 mmol/L [facility] Anion Gap 12 12 - 20 [facility] Urea Nitrogen (BUN) 28(H) 9 - 16 mg/dL [facility] Creatinine, Serum 1.18 0.5 - 1.4 mg/dL [facility] Estimated Glomerular Filt Rate 47 [facility] Comment:NOTE: For -Am erican individuals, multiply the result by 1.210.Chronic Kidney Disease: Estimated GFR < 60 mL/min/1.62d2Rztwyj Kidney Disease: Estimated GFR < 15 mL/min/1.73m2 Glucose 206(H) 60 - 115 mg/dL [facility] Calcium 9.3 8.4 - 10.2 mg/dL [facility] Bilirubin, Total 0.3 0.0 - 1.0 mg/dL [facility] Aspartate Amino Transferase 16 5 - 31 U/L [facility] Alanine Aminotransferase 22 0 - 31 U/L [facility] Total Protein 6.8 6.5 - 8.0 g/dL [facility] Albumin Level 3.5 3.5 - 5.0 g/dL [facility] Alkaline Phosphatase 88 39 - 117 U/L [facility] Blood Venous blood specimen / Unknown 12/27/2023 9:33 AM EDT 12/27/2023 9:33 AM EDT us Rosalind Cardoso WINE MANAGER LAB BLOOD ORDERABLES Final Res ult [facility] [address] [place] [phone] * (ABNORMAL) CBC auto differential (12/27/2023 9:33 AM EDT) White Blood Count 9.2 4.8 - 10.8 X10*3/uL [facility] Red Blood Count 5.36 4.20 - 5.50 X10*6/uL [facility] Hemoglobin 10.1(L) 12.0 - 16.0 g/dl [facility] Hematocrit 32.8(L) 37.0 - 47.0 % [facility] Mean Corpuscular Volume 61.2(L) 80.0 - 98.0 fL [facility] Mean Corpuscular Hemoglobin 18.8(L) 27.0 - 33.0 pg [facility] Mean Corpuscular HGB Conc 30.8(L) 31.0 - 35.0 g/dl [facility] Red Cell Distribution Width 17.0(H) 11.0 - 16.0 % [facility] Platelet Count 292 160 - 400 X10*3/uL [facility] Mean Platelet Volume 11.0 9.4 - 12.3 fL [facility] Neutrophils Percent Auto 59.0 45 - 73 % [facility] Imm Gran Pct Auto 0.3 0.0 - 0.4 % [facility] Lymphocytes Percent Auto 28.1 20 - 40 % [facility] Monocytes Percent Auto 8.8 2 - 11 % [facility] Eosinophils Percent Auto 3.1 0 - 4 % [facility] Basophils Percent Auto 0.7 0 - 2 % [facility] NRBC Pct Auto 0.0 0.0 - 0.2 /100WBC [facility] Neutrophils Absolute Auto 5.4 2.0 - 8.3 x10*3/uL [facility] Imm Gran Abs Auto 0.03 0.00 - 0.03 X10*3/uL [facility] Lymphocytes Absolute Auto 2.6 1.2 - 4.9 X10*3/uL [facility] Monocytes Absolute Auto 0.8 0.1 - 1.2 X10*3/uL [facility] Eosinophils Absolute Auto 0.3 0.0 - 0.4 X10*3/uL [facility] Basophils Absolute Auto 0.1 0.0 - 0.2 X10*3/uL [facility] NRBC Abs Auto 0.000 0.0 - 0.012 X10*3/uL [facility] Blood Venous blood specimen / Unknown 12/27/2023 9:33 AM EDT 12/27/2023 9:33 AM EDT us Rosalind Cardoso WINE MANAGER LAB BLOOD ORDERABLES Final Res ult [facility] [address] [place] [phone] documented in this encounter Visit Diagnoses [...] documented as of this encounter Care Teams Shiftman Relationship Specialty Start Date End Date Rosalind Cardoso FNP [address] [place] [address] PCP - General Family Medicine 04/28/21 Barron Wetzel MD 100 [facility] 200 [place] [address] Nephrology 01/15/25 Madeline Yo [address] [place] [address] 3rd [place] [address] Cardiology 01/15/25 [email or web address] 01/05/25 documented as of this encounter
--- OUTSIDE RECORDS SUMMARY | 2025-04-05 14:31 | XMS_ITS | Encounter Summary ---
Author Organization [employer] Address [address] [place] [address] 7 [place] [address] Care Team Providers Care Verification Engineer Name Role Phone Rosalind Cardoso Primary Care Provider [phone] Barron Wetzel MD Unavailable [phone] Madeline Yo Unavailable Encounter Details Date Type Department Care Team (Late st Contact Info) Description 12/27/2023 Orders Only [facility] MEDICINE [address] [place] [address] Rosalind Cardoso FNP [address] [place], [place] [phone] Type 2 diabetes mellitus with stage 3 [...] [facility] [address] [place] [address] Rosalind Cardoso, TAMY 505 [place] [address] documented as of this encounter Procedures Procedure Name Priority Date/Time Associated Diagnosis Comments PROTHROMBIN TIME-INR Routine 12/27/2023 9:33 AM EDT Type 2 diabetes mellitus with stage 3 chronic kidney disease, with long-term current use of insulin, unspecified whether stage 3a or 3b CKD ([facility]) Myalgia documented in this encounter Results * Prothrombin Time-INR (12/27/2023 9:33 AM EDT) Prothrombin Time 11.5 11.1 - 13.3 SEC [facility] INTERNATIONAL NORM RATIO 0.9 0.9 - 1.1 [facility] Comment:INTERNATIONAL NORMAL IZED RATIO (INR) [...] Final Res ult [facility] [address] [place] [address] [phone] documented in this encounter Visit Diagnoses [...] documented as of this encounter Care Teams Verification Engineer Relationship Specialty Start Date End Date Rosalind Cardoso FNP [address] [place] [address] PCP - General Family Medicine 04/28/21 Barron Wetzel MD 100 [facility] 200 [place] [address] Nephrology 01/15/25 Madeline Yo [address] [place] [address] 3rd [place] [address] Cardiology 01/15/25 [employer] 01/05/25 documented as of this encounter
--- OUTSIDE RECORDS SUMMARY | 2025-04-05 14:31 | XMS_ITS | Encounter Summary ---
Author Organization [employer] Address [address] [place] [address] 7 [place] [address] Care Team Providers Care Customer Field Representative Name Role Phone Rosalind Cardoso Primary Care Provider [phone] Barron Wetzel MD Unavailable [phone] Madeline Yo Unavailable Reason for Visit * Reason Onset Date Comments Durable Medical Equipment 09/14/2022 Encounter Details Date Type Department Care Team (Late st Contact Info) Description 09/14/2022 Telephone [facility] MEDICINE [address] [place] [address] Rosalind Cardoso FNP [address] [place], [place] [phone] Durable Medical Equipment Social History Tobacco Use [...] signature and will be emailed to career based intervention coordinator Leonard for processing * Telephone Encounter - Franc Talley - 09/14/2022 11:52 AM EST Tc from pt requesting a call back, pt claims that the visiting care takers advised that patient needs a thick cushion for her wheel chair and a New walker with two wheels because the other walker is to fast for the pt. If any questions please contact pt at [phone] documented in this encounter Plan of Treatment Upcoming Encounters Date Type Department Care Team (Late st Contact Info) Description 05/03/2025 11:15 AM EDT Office Visit [facility] PED[facility] [address] [place] [address] Rosalind Cardoso FNP [address] [place] [address] documented as of this encounter Visit Diagnoses Not on filedocumented in this encounter Care Teams Customer Field Representative Relationship Specialty Start Date End Date Rosalind Cardoso FNP [address] [place] [address] PCP - General Family Medicine 04/28/21 Barron Wetzel MD 100 [facility] 200 [place] [address] Nephrology 01/15/25 Madeline Yo 11 [facility] 3rd [place] [address] Cardiology 01/15/25 [employer] 01/05/25 documented as of this encounter
--- OUTSIDE RECORDS SUMMARY | 2025-04-05 14:31 | XMS_ITS | Encounter Summary ---
Author Organization [employer] Address [address] [place] [address] 7 [place] [address] Care Team Providers Care Floor Layer Helper Name Role Phone Rosalind Cardoso Primary Care Provider [phone] Barron Wetzel MD Unavailable [phone] Madeline Yo Unavailable Encounter Details Date Type Department Care Team (Late st Contact Info) Description 11/29/2023 Orders Only [facility] [address] [place] [address] Rosalind Cardoso FNP [address] [place], [place] [phone] Type 2 diabetes mellitus with stage 3 [...] - [facility] [address] [place] [address] Rosalind Cardoso, ACCOUNTING TUTOR 505 [place] [address] documented as of this encounter Procedures Procedure [...] PM EDT Narrative 12/27/2023 3:26 PM EDT [facility]'s [address] [place], [place] [address] Mammography Report Signed Patient: Mitra Parish MR#: [id number] : 1965 Acct:[id number] Age/Sex: 58 / F ADM Date: 11/29/23 Loc: HO.MAMMO Attending Dr: Rosalind MORELOS Ordering Physician: Rosalind Cardoso Results: 1Negat aiden Date of Service: 11/29/23 Follow Up: 1 Year From Orig ina Mammogram Procedure(s): MM tomosynthesis screening BI Accession Number(s): [id number] cc: Rosalind Cardoso EXAMINATION: MM SCREENING DIGITAL [...] in OV> 12/27/23 1522 DD/ 1440 TD/TT: Rougher Helper: Procedure Note Donotuseinterpreter, Image - 12/27/2023 [facility]'s [address] [place] [address] Mammography Report Signed Patient: Dany Parish#: [id number] : 1965Acct:[id number] Age/Sex: 58 / FADM Date: 11/29/23 Loc: HO.MAMMO Attending Dr: Rosalind MORELOS Ordering Physician: Rosalind CardosoPResults: 1Negat aiden Date of Service: 11/29/23Follow Up: 1 Year From [facility] Mammogram Procedure(s): MM tomosynthesis screening BI Accession Number(s): [id number] cc: Rosalind Cardoso EXAMINATION: MM SCREENING DIGITAL [...] in OV> 12/27/23 1522 DD/ 1440 TD/TT: Rougher Helper: us Rosalind Cardoso ACCOUNTING TUTOR IMG BI PROCEDURES Final Result * (ABNORMAL) Sed Rate by Modified Marlene (11/29/2023 1:21 PM EDT) Erythrocyte Sedimentation Rate 30(H) 0 - 20 MM/HR [facility] Comment:Patients with polycy themia and many hemoglobin abnormalitiesmay have depressed sed rates whereas patients with anemiamay have elevated sed rates. Blood Venous blood specimen / Unknown 11/29/2023 1:21 PM EDT 11/29/2023 1:21 PM EDT Rosalind Phalen ACCOUNTING TUTOR LAB BLOOD ORDERABLES Final Res ult Performing Organization Address [facility] Co de Phone Number [facility] [address] [place] [phone] * C-reactive Protein (11/29/2023 1:21 PM EDT) C Reactive Protein 0.34 < or = 0.50 mg/dL [facility] Blood Venous blood specimen / Unknown 11/29/2023 1:21 PM EDT 11/29/2023 1:21 PM EDT Rosalind Phalen ACCOUNTING TUTOR LAB BLOOD ORDERABLES Final Res ult Performing Organization Address City/[facility]/ZIP Co de Phone Number [facility] [address] [place] [phone] * Magnesium (11/29/2023 1:21 PM EDT) Pathologist [facility] Magnesium 1.8 1.6 - 2.6 mg/dL [facility] Blood Venous blood specimen / Unknown 11/29/2023 1:21 PM EDT 11/29/2023 1:21 PM EDT [facility] LAB BLOOD ORDERABLES Final Res ult Performing Organization Address [facility]/ZIP Co de Phone Number [facility] [address] [place] [phone] * Prothrombin Time-INR (11/29/2023 1:21 PM EDT) [facility] Prothrombin Time 11.8 11.1 - 13.3 SEC [facility] INTERNATIONAL NORM RATIO 1.0 0.9 - 1.1 [facility] Comment:INTERNATIONAL NORMAL IZED RATIO (INR) [...] PM EDT 11/29/2023 1:21 PM EDT Rosalind [facility] LAB BLOOD ORDERABLES Final Res ult Performing Organization Address [facility]/ZIP Co de Phone Number [facility] [address] [place] [phone] * (ABNORMAL) Comprehensive Metabolic Panel (11/29/2023 1:21 PM EDT) [facility] Sodium 140 135 - 145 mmol/L [facility] Potassium 3.6 3.3 - 5.1 mmol/L [facility] Chloride 103 96 - 108 mmol/L [facility] Carbon Dioxide 28 22 - 29 mmol/L [facility] Anion Gap 13 12 - 20 [facility] Urea Nitrogen (BUN) 23(H) 9 - 16 mg/dL [facility] Creatinine, Serum 1.06 0.5 - 1.4 mg/dL [facility] Estimated Glomerular Filt Rate 53 [facility] Comment:NOTE: For -Am erican individuals, multiply the result by 1.210.Chronic Kidney Disease: Estimated GFR < 60 mL/min/1.17y2Dqckiz Kidney Disease: Estimated GFR < 15 mL/min/1.73m2 Glucose 165(H) 60 - 115 mg/dL [facility] Calcium 9.5 8.4 - 10.2 mg/dL [facility] Bilirubin, Total 0.3 0.0 - 1.0 mg/dL [facility] Aspartate Amino Transferase 16 5 - 31 U/L [facility] Alanine Aminotransferase 13 0 - 31 U/L [facility] Total Protein 6.8 6.5 - 8.0 g/dL [facility] Albumin Level 3.3(L) 3.5 - 5.0 g/dL [facility] Alkaline Phosphatase 94 39 - 117 U/L [facility] Blood Venous blood specimen / Unknown 11/29/2023 1:21 PM EDT 11/29/2023 1:21 PM EDT us Rosalind Cardoso ACCOUNTING TUTOR LAB BLOOD ORDERABLES Final Res ult [facility] [address] [place] [address] [phone] * (ABNORMAL) CBC auto differential (11/29/2023 1:21 PM EDT) White Blood Count 8.7 4.8 - 10.8 X10*3/uL [facility] Red Blood Count 5.99(H) 4.20 - 5.50 X10*6/uL [facility] Hemoglobin 11.3(L) 12.0 - 16.0 g/dl [facility] Hematocrit 37.5 37.0 - 47.0 % [facility] Mean Corpuscular Volume 62.6(L) 80.0 - 98.0 fL [facility] Mean Corpuscular Hemoglobin 18.9(L) 27.0 - 33.0 pg [facility] Mean Corpuscular HGB Conc 30.1(L) 31.0 - 35.0 g/dl [facility] Red Cell Distribution Width 16.4(H) 11.0 - 16.0 % [facility] Platelet Count 310 160 - 400 X10*3/uL [facility] Mean Platelet Volume 11.1 9.4 - 12.3 fL [facility] Neutrophils Percent Auto 56.2 45 - 73 % [facility] Imm Gran Pct Auto 0.2 0.0 - 0.4 % [facility] Lymphocytes Percent Auto 32.5 20 - 40 % [facility] Monocytes Percent Auto 7.6 2 - 11 % [facility] Eosinophils Percent Auto 2.8 0 - 4 % [facility] Basophils Percent Auto 0.7 0 - 2 % [facility] NRBC Pct Auto 0.0 0.0 - 0.2 /100WBC [facility] Neutrophils Absolute Auto 4.9 2.0 - 8.3 x10*3/uL [facility] Imm Gran Abs Auto 0.02 0.00 - 0.03 X10*3/uL [facility] Lymphocytes Absolute Auto 2.8 1.2 - 4.9 X10*3/uL [facility] Monocytes Absolute Auto 0.7 0.1 - 1.2 X10*3/uL [facility] Eosinophils Absolute Auto 0.2 0.0 - 0.4 X10*3/uL [facility] Basophils Absolute Auto 0.1 0.0 - 0.2 X10*3/uL [facility] NRBC Abs Auto 0.000 0.0 - 0.012 X10*3/uL [facility] Blood Venous blood specimen / Unknown 11/29/2023 1:21 PM EDT 11/29/2023 1:21 PM EDT Rosalind [facility] LAB BLOOD ORDERABLES Final Res ult [facility] [address] [place] [phone] [phone] documented in this encounter Visit Diagnoses [...] documented as of this encounter Care Teams Floor Layer Helper Relationship Specialty Start Date End Date Rosalind Cardoso FNP [address] [place] [address] PCP - General Family Medicine 04/28/21 Barron Wetzel MD [address] [phone] Nephrology 01/15/25 Madeline Yo 11 [facility] 3rd [place] [address] Cardiology 01/15/25 Meniga 01/05/25 documented as of this encounter
--- OUTSIDE RECORDS SUMMARY | 2025-04-05 14:31 | XMS_ITS | Encounter Summary ---
Author Organization [email or web address] Address [address] [place] [address] 7t [place] [address] Care Team Providers Care Surgical Sales Representative Name Role Phone Rosalind Cardoso Primary Care Provider [phone] Barron Wetzel MD Unavailable [phone] Madeline Yo Unavailable Reason for Visit * Reason Onset Date Comments Durable Medical Equipment 10/23/2022 Encounter Details Date Type Department Care Team (Late st Contact Info) Description 10/23/2022 Telephone [facility] [address] [place] [address] Rosalind Cardoso FNP [address] [place], [place] [phone] Durable Medical Equipment Social History Tobacco Use [...] Script for walker was already sent to health care specialist and pt notified. * Telephone Encounter - Franc Talley - 10/23/2022 2:25 PM EDT Tc from pt requesting a regular Walker for physical therapy program. Pt states that she needs the regular walker with the two wheels in the front and not seat. Please contact pt at [phone] documented in this encounter Plan of Treatment Upcoming Encounters Date Type Department Care Team (Late st Contact Info) Description 05/03/2025 11:15 AM EDT Office Visit [facility] [address] [place] [address] Rosalind Cardoso FNP [address] [place] [address] documented as of this encounter Visit Diagnoses Not on filedocumented in this encounter Care Teams Surgical Sales Representative Relationship Specialty Start Date End Date Rosalind Cardoso FNP [address] [place] [address] PCP - General Family Medicine 04/28/21 Barron Wetzel MD [address] [facility] [address] [place] [address] Nephrology 01/15/25 Madeline Yo [address] [place] [address] 3[address] [place] [address] Cardiology 01/15/25 Invenergy 01/05/25 documented as of this encounter
--- OUTSIDE RECORDS SUMMARY | 2025-04-05 14:31 | XMS_ITS | Encounter Summary ---
Author Organization [employer] Address [address] [place] [address] 7 [place] [address] Care Team Providers Care Gunstock Spray Unit Feeder Name Role Phone Rosalind Cardoso Primary Care Provider [phone] Barron Wetzel MD Unavailable [phone] Madeline Yo Unavailable Encounter Details Date Type Department Care Team (Late st Contact Info) Description 01/17/2024 Orders Only [facility]S [address] [place], [place] [phone] Rosalind Cardoso FNP [address] [place], [place] [phone] Type 2 diabetes mellitus with stage 3 [...] the past 12 months, has t he [employer], gas, oil or water company threatened to [...] 11:15 AM EDT Office Visit [facility] [address] [place] [address] Rosalind Cardoso, TAMY [address] [place] [address] documented as of this encounter Procedures Procedure [...] Protein 0.36 < or = 0.50 mg/dL [facility] Blood Venous blood specimen / Unknown 01/17/2024 12:30 PM EDT 01/17/2024 12:30 PM EDT Rosalind [facility] LAB BLOOD ORDERABLES Final Res ult Performing Organization Address [facility] Co de Phone Number [facility] [address] [place] [phone] * (ABNORMAL) Sed Rate by Modified Mangoergren (01/17/2024 12:30 PM EDT) Erythrocyte Sedimentation Rate 36(H) 0 - 20 MM/HR [facility] Comment:Patients with polycy themia and many hemoglobin abnormalitiesmay have depressed sed rates whereas patients with anemiamay have elevated sed rates. Blood Venous blood specimen / Unknown 01/17/2024 12:30 PM EDT 01/17/2024 12:30 PM EDT Rosalind MORELOS LAB BLOOD ORDERABLES Final Res ult Performing Organization Address [facility] Co de Phone Number [facility] [address] [place] [phone] documented in this encounter Visit Diagnoses [...] documented as of this encounter Care Teams Gunstock Spray Unit Feeder Relationship Specialty Start Date End Date Rosalind Cardoso FNP [address] [place] [address] PCP - General Family Medicine 04/28/21 Barron Wetzel MD 100 [facility] BI [facility] 200 [place] [address] Nephrology 01/15/25 Madeline Yo [address] [place] [address] 3rd [place] [address] Cardiology 01/15/25 Astaro 01/05/25 documented as of this encounter
--- OUTSIDE RECORDS SUMMARY | 2025-04-05 14:31 | XMS_ITS | Encounter Summary ---
Author Organization [employer] Address [address] [place] [address] 7 [place] [address] Care Team Providers Care Pipe Organ Mechanic Apprentice Name Role Phone Rosalind Cardoso Primary Care Provider [phone] Barron Wetzel MD Unavailable [phone] Madeline Yo Unavailable Encounter Details Date Type Department Care Team (Late st Contact Info) Description 01/03/2024 Orders Only [facility] P[facility]S [address] [place], [place] [phone] Rosalind Cardoso FNP [address] [place], [place] [phone] Type 2 diabetes mellitus with stage 3 [...] 11:15 AM EDT Office Visit [facility] [address] [place] [address] Rosalind Cardoso FNP [address] [place] [address] documented as of this encounter Procedures Procedure [...] unspecified whether stage 3a or 3b CKD ([facility]) Primary hypertension Stage 3b chronic kidney disease ([facility]) History of amputation of left leg through tibia and fibula ([facility]) documented in this encounter Results * Magnesium (01/17/2024 12:30 PM EDT) Magnesium 2.4 1.6 - 2.6 mg/dL [facility] Blood Venous blood specimen / Unknown 01/17/2024 12:30 PM EDT 01/17/2024 12:30 PM EDT us Rosalind Cardoso MACHINE LONG GOODS HELPER LAB BLOOD ORDERABLES Final Res ult [facility] [address] [place] [phone] * (ABNORMAL) Comprehensive Metabolic Panel (01/17/2024 12:30 PM EDT) Sodium 141 135 - 145 mmol/L [facility] Potassium 4.2 3.3 - 5.1 mmol/L [facility] Chloride 106 96 - 108 mmol/L [facility] Carbon Dioxide 26 22 - 29 mmol/L [facility] Anion Gap 13 12 - 20 [facility] Urea Nitrogen (BUN) 30(H) 9 - 16 mg/dL [facility] Creatinine, Serum 1.24 0.5 - 1.4 mg/dL [facility] Estimated Glomerular Filt Rate 44 [facility] Comment:NOTE: For -Am erican individuals, multiply the result by 1.210.Chronic Kidney Disease: Estimated GFR < 60 mL/min/1.84w2Mqyqrj Kidney Disease: Estimated GFR < 15 mL/min/1.73m2 Glucose 165(H) 60 - 115 mg/dL [facility] Calcium 9.7 8.4 - 10.2 mg/dL [facility] Bilirubin, Total 0.4 0.0 - 1.0 mg/dL [facility] Aspartate Amino Transferase 14 5 - 31 U/L [facility] Alanine Aminotransferase 14 0 - 31 U/L [facility] Total Protein 6.8 6.5 - 8.0 g/dL [facility] Albumin Level 3.5 3.5 - 5.0 g/dL [facility] Alkaline Phosphatase 79 39 - 117 U/L [facility] Blood Venous blood specimen / Unknown 01/17/2024 12:30 PM EDT 01/17/2024 12:30 PM EDT us Rosalind Cardoso MACHINE LONG GOODS HELPER LAB BLOOD ORDERABLES Final Res ult [facility] [address] [place] [address] [phone] * (ABNORMAL) CBC auto differential (01/17/2024 12:30 PM EDT) White Blood Count 8.3 4.8 - 10.8 X10*3/uL [facility] Red Blood Count 4.91 4.20 - 5.50 X10*6/uL [facility] Hemoglobin 9.4(L) 12.0 - 16.0 g/dl [facility] Hematocrit 30.6(L) 37.0 - 47.0 % [facility] Mean Corpuscular Volume 62.3(L) 80.0 - 98.0 fL [facility] Mean Corpuscular Hemoglobin 19.1(L) 27.0 - 33.0 pg [facility] Mean Corpuscular HGB Conc 30.7(L) 31.0 - 35.0 g/dl [facility] Red Cell Distribution Width 20.2(H) 11.0 - 16.0 % [facility] Platelet Count 302 160 - 400 X10*3/uL [facility] Mean Platelet Volume 10.6 9.4 - 12.3 fL [facility] Neutrophils Percent Auto 64.0 45 - 73 % [facility] Imm Gran Pct Auto 0.5(H) 0.0 - 0.4 % [facility] Lymphocytes Percent Auto 24.0 20 - 40 % [facility] Monocytes Percent Auto 8.2 2 - 11 % [facility] Eosinophils Percent Auto 2.9 0 - 4 % [facility] Basophils Percent Auto 0.4 0 - 2 % [facility] NRBC Pct Auto 0.0 0.0 - 0.2 /100WBC [facility] Neutrophils Absolute Auto 5.3 2.0 - 8.3 x10*3/uL [facility] Imm Gran Abs Auto 0.04(H) 0.00 - 0.03 X10*3/uL [facility] Lymphocytes Absolute Auto 2.0 1.2 - 4.9 X10*3/uL [facility] Monocytes Absolute Auto 0.7 0.1 - 1.2 X10*3/uL [facility] Eosinophils Absolute Auto 0.2 0.0 - 0.4 X10*3/uL [facility] Basophils Absolute Auto 0.0 0.0 - 0.2 X10*3/uL [facility] NRBC Abs Auto 0.000 0.0 - 0.012 X10*3/uL [facility] Blood Venous blood specimen / Unknown 01/17/2024 12:30 PM EDT 01/17/2024 12:30 PM EDT us Rosalind Cardoso MACHINE LONG GOODS HELPER LAB BLOOD ORDERABLES Final Res ult [facility] [address] [place] [address] [phone] documented in this encounter [...] documented as of this encounter Care Teams Pipe Organ Mechanic Apprentice Relationship Specialty Start Date End Date Rosalind Cardoso FNP [address] [place] [address] PCP - General Family Medicine 04/28/21 Barron Wetzel MD 100 [facility] 200 [place] [address] Nephrology 01/15/25 Madeline Yo [address] [place] [address] 3rd [place] [address] Cardiology 01/15/25 Marqui 01/05/25 documented as of this encounter
--- OUTSIDE RECORDS SUMMARY | 2025-04-05 14:31 | XMS_ITS | Encounter Summary ---
Author Organization [employer] Address [address] [place] [address] 7 [place] [address] Care Team Providers Care Pattern Duplicator Name Role Phone Rosalind Cardoso Primary Care Provider [phone] Barron Wetzel MD Unavailable [phone] Madeline Yo Unavailable Encounter Details Date Type Department Care Team (Late st Contact Info) Description 11/15/[address] [facility] [address] [place] [address] Rosalind Cardoso FNP [address] [place], [place] [phone] Type 2 diabetes mellitus with stage 3 [...] 11:15 AM EDT Office Visit [facility] & PEDS [address] [place] [address] Rosalind Cardoso, KIDNEY TRIMMER [address] [place] [address] documented as of this encounter Procedures Procedure [...] 3b CKD ([facility]) Myalgia COMPREHENSIVE METABOLIC PANEL Routine 11/20/2023 9:36 AM EDT Type 2 diabetes mellitus with stage 3 chronic kidney disease, with long-term current use of insulin, unspecified whether stage 3a or 3b CKD ([facility]) Myalgia documented in this encounter Results * [...] EDT 11/20/2023 9:36 AM EDT Rosalind Cardoso KIDNEY TRIMMER LAB BLOOD ORDERABLES Final Res ult Performing Organization Address [facility]/ZIP Co de Phone Number [facility] [address] [place] [phone] * (ABNORMAL) C-reactive Protein (11/20/2023 9:36 AM EDT) C Reactive Protein 1.26(H) < or = 0.50 mg/dL [facility] Blood Venous blood specimen / Unknown 11/20/2023 9:36 AM EDT 11/20/2023 9:36 AM EDT Rosalind Cardoso KIDNEY TRIMMER LAB BLOOD ORDERABLES Final Res ult Performing Organization Address City/[facility]/ZIP Co de Phone Number [facility] [address] [place] [phone] * Magnesium (11/20/2023 9:36 AM EDT) [facility] Magnesium 1.8 1.6 - 2.6 mg/dL [facility] Blood Venous blood specimen / Unknown 11/20/2023 9:36 AM EDT 11/20/2023 9:36 AM EDT Rosalind Cadroso [facility] LAB BLOOD ORDERABLES Final Res ult Performing Organization Address [facility] Co de Phone Number [facility] [address] [place] [phone] * Prothrombin Time-INR (11/20/2023 9:36 AM EDT) [facility] Prothrombin Time 11.6 11.1 - 13.3 SEC [facility] [...] EDT 11/20/2023 9:36 AM EDT Rosalind Cardoso [facility] LAB BLOOD ORDERABLES Final Res ult Performing Organization Address [facility] Co de Phone Number [facility] [address] [place] [phone] * (ABNORMAL) Comprehensive Metabolic Panel (11/20/2023 9:36 AM EDT) [facility] Sodium 139 135 - 145 mmol/L [facility] Potassium 4.0 3.3 - 5.1 mmol/L [facility] Chloride 102 96 - 108 mmol/L [facility] Carbon Dioxide 28 22 - 29 mmol/L [facility] Anion Gap 13 12 - 20 [facility] Urea Nitrogen (BUN) 40(H) 9 - 16 mg/dL [facility] Creatinine, Serum 1.51(H) 0.5 - 1.4 mg/dL [facility] Estimated Glomerular Filt Rate 35 [facility] Comment:NOTE: For -Am erican individuals, multiply the result by 1.210.Chronic Kidney Disease: Estimated GFR < 60 mL/min/1.81o8Vcdtoz Kidney Disease: Estimated GFR < 15 mL/min/1.73m2 Glucose 214(H) 60 - 115 mg/dL [facility] Calcium 9.7 8.4 - 10.2 mg/dL [facility] Bilirubin, Total 0.2 0.0 - 1.0 mg/dL [facility] Aspartate Amino Transferase 15 5 - 31 U/L [facility] Alanine Aminotransferase 11 0 - 31 U/L [facility] Total Protein 7.0 6.5 - 8.0 g/dL [facility] Albumin Level 3.4(L) 3.5 - 5.0 g/dL [facility] Alkaline Phosphatase 112 39 - 117 U/L [facility] Blood Venous blood specimen / Unknown 11/20/2023 9:36 AM EDT 11/20/2023 9:36 AM EDT us Rosalind MORELOS LAB BLOOD ORDERABLES Final Res ult [facility] [address] [place] [address] [phone] documented in this encounter Visit Diagnoses [...] documented as of this encounter Care Teams Pattern Duplicator Relationship Specialty Start Date End Date Rosalind Cardoso FNP [address] [place] [address] PCP - General Family Medicine 04/28/21 Barron Wetzel MD 100 [facility] 200 [place] [address] Nephrology 01/15/25 Madeline Yo [address] [place] [address] 3rd [place] [address] Cardiology 01/15/25 [employer] 01/05/25 documented as of this encounter
--- OUTSIDE RECORDS SUMMARY | 2025-04-05 14:31 | XMS_ITS | Encounter Summary ---
Author Organization [employer] Address [address] [place] [address] 7 [place] [address] Care Team Providers Care Letter Stamping Machine Operator Name Role Phone Rosalind Cardoso Primary Care Provider [phone] Barron Wetzel MD Unavailable [phone] Madeline Yo Unavailable Encounter Details Date Type Department Care Team (Late st Contact Info) Description 10/18/2023 Orders Only [facility] MEDICINE 230 [place] [address] Rosailnd Cardoso FNP [address] [place], [place] [phone] Type 2 diabetes mellitus with stage 3 [...] 11:15 AM EDT Office Visit [facility] MED & PEDS 505 [place] [address] Rosalind Cardoso, GAMING PIT BOSS 505 [place] [address] documented as of this encounter Procedures Procedure [...] 3a or 3b CKD ([facility]) Myalgia documented in this encounter Results * (ABNORMAL) C-reactive Protein (10/25/2023 1:09 PM EDT) Pathologist [facility] C Reactive Protein 1.49(H) < or = 0.50 mg/dL [facility] Blood Venous blood specimen / Unknown 10/25/2023 1:09 PM EDT 10/25/2023 1:09 PM EDT Rosalind Cardoso [facility] BLOOD ORDERABLES Final Res ult Performing Organization Address [facility]/ZIP Co de Phone Number [facility] [address] [place] [address] [phone] * Magnesium (10/25/2023 1:09 PM EDT) Pathologist [facility] Magnesium 2.1 1.6 - 2.6 mg/dL [facility] Blood Venous blood specimen / Unknown 10/25/2023 1:09 PM EDT 10/25/2023 1:09 PM EDT Rosalind Cardoso [facility] BLOOD ORDERABLES Final Res ult Performing Organization Address [facility]/ZIP Co de Phone Number [facility] [address] [place] [phone] * (ABNORMAL) Comprehensive Metabolic Panel (10/25/2023 1:09 PM EDT) Pathologist [facility] Sodium 143 135 - 145 mmol/L [facility] Potassium 4.1 3.3 - 5.1 mmol/L [facility] Chloride 104 96 - 108 mmol/L [facility] Carbon Dioxide 31(H) 22 - 29 mmol/L [facility] Anion Gap 12 12 - 20 [facility] Urea Nitrogen (BUN) 27(H) 9 - 16 mg/dL [facility] Creatinine, Serum 1.20 0.5 - 1.4 mg/dL [facility] Estimated Glomerular Filt Rate 46 [facility] Comment:NOTE: For -Am erican individuals, multiply the result by 1.210.Chronic Kidney Disease: Estimated GFR < 60 mL/min/1.31f5Quijvk Kidney Disease: Estimated GFR < 15 mL/min/1.73m2 Glucose 223(H) 60 - 115 mg/dL [facility] Calcium 9.4 8.4 - 10.2 mg/dL [facility] Bilirubin, Total 0.3 0.0 - 1.0 mg/dL [facility] Aspartate Amino Transferase 20 5 - 31 U/L [facility] Alanine Aminotransferase 34(H) 0 - 31 U/L [facility] Total Protein 6.6 6.5 - 8.0 g/dL [facility] Albumin Level 3.2(L) 3.5 - 5.0 g/dL [facility] Alkaline Phosphatase 166(H) 39 - 117 U/L [facility] Blood Venous blood specimen / Unknown 10/25/2023 1:09 PM EDT 10/25/2023 1:09 PM EDT us Rosalind Cardoso [employer] [facility] BLOOD ORDERABLES Final Res ult [facility] [address] [place] [phone] * (ABNORMAL) CBC auto differential (10/25/2023 1:09 PM EDT) White Blood Count 9.0 4.8 - 10.8 X10*3/uL [facility] Red Blood Count 4.91 4.20 - 5.50 X10*6/uL [facility] Hemoglobin 9.5(L) 12.0 - 16.0 g/dl [facility] Hematocrit 32.4(L) 37.0 - 47.0 % [facility] Mean Corpuscular Volume 66.0(L) 80.0 - 98.0 fL [facility] Mean Corpuscular Hemoglobin 19.3(L) 27.0 - 33.0 pg [facility] Mean Corpuscular HGB Conc 29.3(L) 31.0 - 35.0 g/dl [facility] Red Cell Distribution Width 17.2(H) 11.0 - 16.0 % [facility] Platelet Count 442(H) 160 - 400 X10*3/uL [facility] Mean Platelet Volume 11.3 9.4 - 12.3 fL [facility] Neutrophils Percent Auto 60.9 45 - 73 % [facility] Imm Gran Pct Auto 0.4 0.0 - 0.4 % [facility] Lymphocytes Percent Auto 25.2 20 - 40 % [facility] Monocytes Percent Auto 8.7 2 - 11 % [facility] Eosinophils Percent Auto 4.1(H) 0 - 4 % [facility] Basophils Percent Auto 0.7 0 - 2 % [facility] NRBC Pct Auto 0.0 0.0 - 0.2 /100WBC [facility] Neutrophils Absolute Auto 5.5 2.0 - 8.3 x10*3/uL [facility] Imm Gran Abs Auto 0.04(H) 0.00 - 0.03 X10*3/uL [facility] Lymphocytes Absolute Auto 2.3 1.2 - 4.9 X10*3/uL [facility] Monocytes Absolute Auto 0.8 0.1 - 1.2 X10*3/uL [facility] Eosinophils Absolute Auto 0.4 0.0 - 0.4 X10*3/uL [facility] Basophils Absolute Auto 0.1 0.0 - 0.2 X10*3/uL [facility] NRBC Abs Auto 0.000 0.0 - 0.012 X10*3/uL [facility] Blood Venous blood specimen / Unknown 10/25/2023 1:09 PM EDT 10/25/2023 1:09 PM EDT Rosalind MORELOS LAB BLOOD ORDERABLES Final Res ult [facility] [address] [place] [address] [phone] documented in this encounter Visit Diagnoses [...] documented as of this encounter Care Teams Letter Stamping Machine Operator Relationship Specialty Start Date End Date Rosalind Cardoso FNP [address] [place] [address] PCP - General Family Medicine 04/28/21 Barron Wetzel MD 100 [facility] 200 [place] [address] Nephrology 01/15/25 Madeline Yo [address] [place] [address] Drive 3rd [place] [address] Cardiology 01/15/25 [employer] 01/05/25 documented as of this encounter
--- OUTSIDE RECORDS SUMMARY | 2025-04-05 14:31 | XMS_ITS | Encounter Summary ---
Author Organization [employer] Address [address] [place] [address] 7t [place] [address] Care Team Providers Care Packer Insulation Name Role Phone Rosalind Cardoso Primary Care Provider [phone] Barron Wetzel MD Unavailable [phone] Madeline Yo Unavailable Reason for Visit * Reason Onset Date Comments Referral 10/10/2023 Encounter Details Date Type Department Care Team (Late st Contact Info) Description 10/10/2023 Telephone [facility] MEDICINE [address] [place] [address] Rosalind Cardoso FNP [address] [place], [place] [phone] Referral Social History Tobacco Use Types Packs/Day [...] any questions you can contact pt at [phone]. documented in this encounter Plan of Treatment Upcoming Encounters Date Type Department Care Team (Late st Contact Info) Description 05/03/2025 11:15 AM EDT Office Visit [facility] MED & PEDS 505 [place] [address] Rosalind Cardoso FNP [address] [place] [address] documented as of this encounter Visit Diagnoses Not on filedocumented in this encounter Additional Health Concerns Assessment Noted Time PHQ-9 Depression Total Score: 0 12/26/19 23 1:09 PM EDT documented as of this encounter Care Teams Packer Insulation Relationship Specialty Start Date End Date Rosalind Cardoso FNP [address] [place] [address] PCP - General Family Medicine 04/28/21 Barron Wetzel MD [address] [address] Nephrology 01/15/25 Madeline Yo [address] [place] [address] 3rd [place] [address] Cardiology 01/15/25 [employer] 01/05/25 documented as of this encounter
--- OUTSIDE RECORDS SUMMARY | 2025-04-05 14:31 | XMS_ITS | Encounter Summary ---
Author Organization [employer] Address [address] [place] [address] 7 [place] [address] Care Team Providers Care Plumbing Warehouse Helper Name Role Phone Rosalind Cardoso Primary Care Provider [phone] Barron Wetzel MD Unavailable [phone] Madeline Yo Unavailable Encounter Details Date Type Department Care Team ([facility] Contact Info) Description 11/28/2022 Abstract [facility] MEDICINE 230 [place] [address] Rosalind Cardoso FNP [address] [place], [place] [phone] Social History Tobacco Use Types Packs/Day Years [...] Upcoming Encounters Date Type Department Care Team ([facility] Contact Info) Description 05/03/2025 11:15 AM EDT Office Visit [facility] MED & PEDS [address] [place] [address] Rosalind Cardoso FNP [address] [place] [address] documented as of this encounter Visit Diagnoses Not on filedocumented in this encounter Care Teams Plumbing Warehouse Helper Relationship Specialty Start Date End Date Rosalind Cardoso FNP 230 [place] [address] PCP - General Family Medicine 04/28/21 Barron Wetzel MD [address] [address] Nephrology 01/15/25 Madeline Yo [address] [place] [address] Drive 3rd [place] [address] Cardiology 01/15/25 [email or web address] 01/05/25 documented as of this encounter
--- OUTSIDE RECORDS SUMMARY | 2025-04-05 14:32 | XMS_ITS | Encounter Summary ---
Author Organization [employer] Address [address] [place] [address] 7 [place] [address] Care Team Providers Care Special Trackwork Blacksmith Name Role Phone Rosalind Cardoso Primary Care Provider [phone] Barron Wetzel MD Unavailable [phone] Madeline Yo Unavailable Encounter Details Date Type Department Care Team (Late st Contact Info) Description 04/17/2024 Orders Only [facility] MEDICINE 230 [place] [address] Rosalind Cardoso FNP [address] [place], [place] [phone] Type 2 diabetes mellitus with stage 3 [...] Description 05/03/2025 11:15 AM EDT Office Visit [facility] MED & PEDS 505 [place] [address] Rosalind Cardoso FNP 505 [place] [address] documented as of this encounter Visit Diagnoses [...] documented as of this encounter Care Teams Special Trackwork Blacksmith Relationship Specialty Start Date End Date Rosalind Cardoso FNP 230 [place] [address] PCP - General Family Medicine 04/28/21 Barron Wetzel MD 100 [facility] 200 [place] [address] Nephrology 01/15/25 Madeline Yo [address] 3rd [place] [address] Cardiology 01/15/25 [employer] 01/05/25 documented as of this encounter
--- OUTSIDE RECORDS SUMMARY | 2025-04-05 14:32 | XMS_ITS | Encounter Summary ---
Author Organization [employer] Address [address] [place] [address] 7 [place] [address] Care Team Providers Care Sugar Mill Worker Name Role Phone Rosalind Cardoso Primary Care Provider [phone] Barron Wetzel MD Unavailable [phone] Madeline Yo Unavailable Encounter Details Date Type Department Care Team (Late st Contact Info) Description 03/06/2024 Orders Only [facility] MEDICINE [address] [place] [address] Rosalind Cardoso FNP [address] [place], [place] [phone] Type 2 diabetes mellitus with stage 3 [...] [facility] 505 [place] [address] Rosalind Cardoso FNP 505 [place] [address] documented as of this encounter Visit Diagnoses [...] documented as of this encounter Care Teams Sugar Mill Worker Relationship Specialty Start Date End Date Rosalind Cardoso FNP [address] [place] [address] PCP - General Family Medicine 04/28/21 Barron Wetzel MD 100 [facility] 200 [place] [address] Nephrology 01/15/25 Madeline Yo [address] 3rd [place] [address] Cardiology 01/15/25 [employer] 01/05/25 documented as of this encounter
--- OUTSIDE RECORDS SUMMARY | 2025-04-05 14:32 | XMS_ITS | Encounter Summary ---
Author Organization [employer] Address [address] [place] [address] 7 [place] [address] Care Team Providers Care Employment Counselor Name Role Phone Rosalind Cardoso Primary Care Provider [phone] Barron Wetzel MD Unavailable [phone] Madeline Yo Unavailable Encounter Details Date Type Department Care Team (Late st Contact Info) Description 07/24/2024 Orders Only [facility] MEDICINE 230 [place] [address] Rosalind Cardoso FNP [address] [place], [place] [phone] Type 2 diabetes mellitus with stage 3 [...] Visit [facility] MED & PEDS 505 [place] [address] Rosalind Cardoso FNP 505 [place] [address] documented as of this encounter Visit Diagnoses [...] as of this encounter Care Teams Employment Counselor Relationship Specialty Start Date End Date Rosalind Cardoso FNP 230 [place] [address] PCP - General Family Medicine 04/28/21 Barron Wetzel MD 100 [facility] 200 [place] [address] Nephrology 01/15/25 Madeline Yo [address] 3rd [place] [address] Cardiology 01/15/25 [employer] 01/05/25 documented as of this encounter
--- OUTSIDE RECORDS SUMMARY | 2025-04-05 14:32 | XMS_ITS | Encounter Summary ---
Author Organization [employer] Address [address] [place] [address] 7 [place] [address] Care Team Providers Care Hand Molder And Caster Name Role Phone Rosalind Cardoso Primary Care Provider [phone] Barron Wetzel MD Unavailable [phone] Madeline Yo Unavailable Encounter Details Date Type Department Care Team (Late st Contact Info) Description 04/10/2024 Orders Only [facility]EDS [address] [place], [place] [phone] Rosalind Cardoso FNP 505 [place], [place] [phone] Type 2 diabetes mellitus with stage 3 [...] [facility] MED & PEDS [address] [place] [address] Rosalind Cardoso FNP 505 [place] [address] documented as of this encounter Visit Diagnoses [...] as of this encounter Care Teams Hand Molder And Caster Relationship Specialty Start Date End Date Rosalind Cardoso FNP [address] [place] [address] PCP - General Family Medicine 04/28/21 Barron Wetzel MD 100 [facility] 200 [place] [address] Nephrology 01/15/25 Madeline Yo [address] [place] [address] 3rd [place] [address] Cardiology 01/15/25 [employer] 01/05/25 documented as of this encounter
--- OUTSIDE RECORDS SUMMARY | 2025-04-05 14:32 | XMS_ITS | Encounter Summary ---
Author Organization [employer] Address [address] [place] [address] 7 [place] [address] Care Team Providers Care Television Repair Teacher Name Role Phone Rosalind Cardoso Primary Care Provider [phone] Barron Wetzel MD Unavailable [phone] Madeline Yo Unavailable Encounter Details Date Type Department Care Team (Late st Contact Info) Description 02/28/2024 Orders Only [facility] MED [facility] PEDS 505 [place], [place] [phone] Rosalind Cardoso FNP 505 [place], [place] [phone] Type 2 diabetes mellitus with stage 3 [...] [facility] MED [facility] 505 [place] [address] Rosalind Cardoso FNP 505 [place] [address] documented as of this encounter Visit Diagnoses [...] documented as of this encounter Care Teams Television Repair Teacher Relationship Specialty Start Date End Date Rosalind Cardoso FNP [address] [place] [address] PCP - General Family Medicine 04/28/21 Barron Wetzel MD 100 [facility] 200 [place] [address] Nephrology 01/15/25 Madeline Yo [address] [place] [address] 3rd [place] [address] Cardiology 01/15/25 [employer] 01/05/25 documented as of this encounter
--- OUTSIDE RECORDS SUMMARY | 2025-04-05 14:32 | XMS_ITS | Encounter Summary ---
Author Organization [employer] Address [address] [place] [address] 7 [place] [address] Care Team Providers Care Breadman Name Role Phone Rosalind Cardoso Primary Care Provider [phone] Barron Wetzel MD Unavailable [phone] Madeline Yo Unavailable Encounter Details Date Type Department Care Team (Late st Contact Info) Description 12/27/2022 Abstract [facility] MEDICINE 230 [place] [address] Rosalind Cardoso FNP [address] [place], [place] [phone] Social History Tobacco Use Types Packs/Day Years [...] 11:15 AM EDT Office Visit [facility] MED & PEDS [address] [place] [address] Rosalind Cardoso FNP [address] [place] [address] documented as of this encounter Procedures Procedure [...] documented as of this encounter Care Teams Breadman Relationship Specialty Start Date End Date Rosalind Cardoso FNP 230 [place] [address] PCP - General Family Medicine 04/28/21 Barron Wetzel MD 100 [facility] 200 [place] [address] Nephrology 01/15/25 Madeline Yo [address] [place] [address] 3rd [place] [address] Cardiology 01/15/25 [employer] 01/05/25 documented as of this encounter
--- OUTSIDE RECORDS SUMMARY | 2025-04-05 14:32 | XMS_ITS | Encounter Summary ---
Author Organization [employer] Address [address] [place] [address] 7 [place] [address] Care Team Providers Care Venetian Blind Washer Name Role Phone Rosalind Cardoso Primary Care Provider [phone] Barron Wetzel MD Unavailable [phone] Madeline Yo Unavailable Encounter Details Date Type Department Care Team (Late st Contact Info) Description 02/21/2024 Orders Only [facility] MEDICINE 230 [place] [address] Rosalind Cardoso FNP [address] [place], [place] [phone] Type 2 diabetes mellitus with stage 3 [...] [facility] MED & PEDS 505 [place] [address] Rosalind Cardoso FNP 505 [place] [address] documented as of this encounter Visit Diagnoses [...] documented as of this encounter Care Teams Venetian Blind Washer Relationship Specialty Start Date End Date Rosalind Cardoso FNP 230 [place] [address] PCP - General Family Medicine 04/28/21 Barron Wetzel MD 100 [facility] 200 [place] [address] Nephrology 01/15/25 Madeline Yo [address] 3rd [place] [address] Cardiology 01/15/25 [employer] 01/05/25 documented as of this encounter
--- OUTSIDE RECORDS SUMMARY | 2025-04-05 14:32 | XMS_ITS | Encounter Summary ---
Author Organization [employer] Address [address] [place] [address] 7 [place] [address] Care Team Providers Care Roll Reclaimer Name Role Phone Rosalind Cardoso Primary Care Provider [phone] Barron Wetzel MD Unavailable [phone] Madeline Yo Unavailable Encounter Details Date Type Department Care Team (Late st Contact Info) Description 02/07/2024 Orders Only [facility] MEDICINE 230 [place] [address] Rosalind Cardoso FNP [address] [place], [place] [phone] Type 2 diabetes mellitus with stage 3 [...] Description 05/03/2025 11:15 AM EDT Office Visit [facility] MED & PEDS 505 [place] [address] Rosalind Cardoso FNP 505 [place] [address] documented as of this encounter Visit Diagnoses [...] documented as of this encounter Care Teams Roll Reclaimer Relationship Specialty Start Date End Date Rosalind Cardoso FNP 230 [place] [address] PCP - General Family Medicine 04/28/21 Barron Wetzel MD 100 [facility] 200 [place] [address] Nephrology 01/15/25 Madeline Yo [address] 3rd [place] [address] Cardiology 01/15/25 [email or web address] 01/05/25 documented as of this encounter
--- OUTSIDE RECORDS SUMMARY | 2025-04-05 14:32 | XMS_ITS | Encounter Summary ---
Author Organization [employer] Address [address] [place] [address] 7 [place] [address] Care Team Providers Care Cell Efficiency Supervisor Name Role Phone Rosalind Cardoso Primary Care Provider [phone] Barron Wetzel MD Unavailable [phone] Madeline Yo Unavailable Encounter Details Date Type Department Care Team (Late st Contact Info) Description 01/31/2024 Orders Only [facility] MED & PEDS 505 [place], [place] [phone] Rosalind Cardoso FNP 505 [place], [place] [phone] Type 2 diabetes mellitus with stage 3 [...] the past 12 months, has t he [employer] gas, oil or water company threatened to [...] [facility] 505 [place] [address] Rosalind Cardoso, TAMY 505 [place] [address] documented as of this encounter Procedures Procedure [...] fibula ([facility]) documented in this encounter Results * (ABNORMAL) Sed Rate by Modified Westergren (05/29/2024 2:18 PM EST) Erythrocyte Sedimentation Rate 71(H) 0 - 20 MM/HR [facility] Comment:Patients with polycy themia and many hemoglobin abnormalitiesmay have depressed sed rates whereas patients with anemiamay have elevated sed rates. Blood Venous blood specimen / Unknown 05/29/2024 2:18 PM EST 05/29/2024 2:18 PM EST Rosalind MORELOS LAB BLOOD ORDERABLES Final Res ult [facility] [address] [place] [address] [phone] documented in this encounter Visit Diagnoses [...] documented as of this encounter Care Teams Cell Efficiency Supervisor Relationship Specialty Start Date End Date Rosalind Cardoso FNP 230 [place] [address] PCP - General Family Medicine 04/28/21 Barron Wetzel MD 100 [facility] 200 [place] [address] Nephrology 01/15/25 Madeline Yo [address] [place] [address] 3rd [place] [address] Cardiology 01/15/25 [employer] 01/05/25 documented as of this encounter
--- OUTSIDE RECORDS SUMMARY | 2025-04-05 14:32 | XMS_ITS | Encounter Summary ---
Author Organization [employer] Address [address] [place] [address] 7 [place] [address] Care Team Providers Care Credit Rating Checker Name Role Phone Rosalind Cardoso Primary Care Provider [phone] Barron Wetzel MD Unavailable [phone] Madeline Yo Unavailable Encounter Details Date Type Department Care Team (Late st Contact Info) Description 07/10/2024 Orders Only [facility] MEDICINE 230 [place] [address] Rosalind Cardoso FNP [address] [place], [place] [phone] Type 2 diabetes mellitus with stage 3 [...] 11:15 AM EDT Office Visit [facility] MED & PEDS 505 [place] [address] Rosalind Cardoso FNP 505 [place] [address] documented as of this encounter Visit Diagnoses [...] as of this encounter Care Teams Credit Rating Checker Relationship Specialty Start Date End Date Rosalind Cardoso FNP 230 [place] [address] PCP - General Family Medicine 04/28/21 Barron Wetzel MD 100 [facility] 200 [place] [address] Nephrology 01/15/25 Madeline Yo [address]rd [place] [address] Cardiology 01/15/25 [employer] 01/05/25 documented as of this encounter
--- OUTSIDE RECORDS SUMMARY | 2025-04-05 14:32 | XMS_ITS | Encounter Summary ---
Author Organization [employer] Address [address] [place] [address] 7 [place] [address] Care Team Providers Care Technical Operations Specialist Name Role Phone Rosalind Cardoso Primary Care Provider [phone] Barron Wetzel MD Unavailable [phone] Madeline Yo Unavailable Encounter Details Date Type Department Care Team (Late st Contact Info) Description 07/17/2024 Orders Only [facility] & PEDS [address] [place], [place] [phone] Rosalind Cardoso FNP 505 [place], [place] [phone] Type 2 diabetes mellitus with stage 3 [...] Description 05/03/2025 11:15 AM EDT Office Visit [facility] MED & PEDS [address] [place] [address] Rosalind Cardoso, TAMY 505 [place] [address] documented as of this encounter Procedures Procedure [...] Sedimentation Rate 50(H) 0 - 20 MM/HR [facility] Comment:Patients with polycy themia and many hemoglobin abnormalitiesmay have depressed sed rates whereas patients with anemiamay have elevated sed rates. Blood Venous blood specimen / Unknown 08/04/2024 10:17 AM EST 08/04/2024 10:17 AM EST Rosalind Phalen [facility] BLOOD ORDERABLES Final Res ult Performing Organization Address City/[facility]/ZIP Co de Phone Number [facility] [address] [place] [phone] * Magnesium (08/04/2024 10:17 AM EST) Pathologist [facility] Magnesium 2.3 1.6 - 2.6 mg/dL [facility] Blood Venous blood specimen / Unknown 08/04/2024 10:17 AM EST 08/04/2024 10:17 AM EST Rosalind Phalen [facility] BLOOD ORDERABLES Final Res ult Performing Organization Address City/[facility]/ZIP Co de Phone Number [facility] [address] [place] [phone] * (ABNORMAL) Comprehensive Metabolic Panel (08/04/2024 10:17 AM EST) Sodium 134(L) 135 - 145 mmol/L [facility] Potassium 4.1 3.3 - 5.1 mmol/L [facility] Chloride 100 96 - 108 mmol/L [facility] Carbon Dioxide 27 22 - 29 mmol/L [facility] Anion Gap 11(L) 12 - 20 [facility] Urea Nitrogen (BUN) 50(H) 9 - 16 mg/dL [facility] Creatinine, Serum 1.56(H) 0.5 - 1.4 mg/dL [facility] Estimated Glomerular Filt Rate 34 [facility] Comment:Chronic Kidney Disea se: Estimated GFR < 60 mL/min/1.23n2Atcygk Kidney Disease: Estimated GFR < 15 mL/min/1.73m2 Glucose 265(H) 60 - 115 mg/dL [facility] Calcium 9.1 8.4 - 10.2 mg/dL [facility] Bilirubin, Total 0.2 0.0 - 1.0 mg/dL [facility] Aspartate Amino Transferase 16 5 - 31 U/L [facility] Alanine Aminotransferase <6 0 - 31 U/L [facility] Total Protein 7.6 6.5 - 8.0 g/dL [facility] Albumin Level 3.6 3.5 - 5.0 g/dL [facility] Alkaline Phosphatase 101 39 - 117 U/L [facility] Blood Venous blood specimen / Unknown 08/04/2024 10:17 AM EST 08/04/2024 10:17 AM EST us Rosalind Cardoso [employer] LAB BLOOD ORDERABLES Final Res ult [facility] [address] [place] [address] [phone] documented in this encounter Visit Diagnoses [...] as of this encounter Care Teams Technical Operations Specialist Relationship Specialty Start Date End Date Rosalind Cardoso FNP [address] [place] [address] PCP - General Family Medicine 04/28/21 Barron Wetzel MD 100 [facility] 200 [place] [address] Nephrology 01/15/25 Madeline Yo [address] [place] [address] 3rd [place] [address] Cardiology 01/15/25 [employer] 01/05/25 documented as of this encounter
--- OUTSIDE RECORDS SUMMARY | 2025-04-05 14:32 | XMS_ITS | Encounter Summary ---
Author Organization [employer] Address [address] [place] [address] 7t [place] [address] Care Team Providers Care Armored Car Messenger Name Role Phone Rosalind Cardoso Primary Care Provider [phone] Barron Wetzel MD Unavailable [phone] Madeline Yo Unavailable Reason for Visit * Reason Comments Med Refill Encounter Details Date Type Department Care Team (Late st Contact Info) Description 01/13/2023 Refill [facility] MED & PEDS [address] [place] [address] Saba Garcia FNP Type 2 diabetes mellitus [...] CENTER CHC MED & PEDS [address] [place] [address] Rosalind Cardoso FNP [address] [place] [address] documented as of this encounter Visit Diagnoses Diagnosis Type 2 diabetes mellitus with hyperglycemia (HCC) documented in this encounter Additional Health Concerns Assessment Noted Time PHQ-9 Depression Total Score: 0 12/26/19 23 1:09 PM EDT documented as of this encounter Care Teams Armored Car Messenger Relationship Specialty Start Date End Date Rosalind Cardoso FNP [address] [place] [address] PCP - General Family Medicine 04/28/21 Barron Wetzel MD 100 [facility] 200 [place] [address] Nephrology 01/15/25 Madeline Yo [address] [place] [address] 3rd [place] [address] Cardiology 01/15/25 [employer] 01/05/25 documented as of this encounter
--- OUTSIDE RECORDS SUMMARY | 2025-04-05 14:32 | XMS_ITS | Encounter Summary ---
Author Organization [employer] Address [address] [place] [address] 7 [place] [address] Care Team Providers Care Heavy Equipment Service Technician Name Role Phone Rosalind Cardoso Primary Care Provider [phone] Barron Wetzel MD Unavailable [phone] Madeline Yo Unavailable Encounter Details Date Type Department Care Team (Late st Contact Info) Description 05/08/2024 Orders Only [facility] MED & PEDS [address] [place], [place] [phone] Rosalind Cardoso FNP [address] [place], [place] [phone] Type 2 diabetes mellitus with stage 3 [...] [facility] MED & PEDS [address] [place] [address] Rosalind Cardoso FNP [address] [place] [address] documented as of this encounter Visit Diagnoses [...] documented as of this encounter Care Teams Heavy Equipment Service Technician Relationship Specialty Start Date End Date Rosalind Cardoso FNP [address] [place] [address] PCP - General Family Medicine 04/28/21 Barron Wetzel MD 100 [facility] 200 [place] [address] Nephrology 01/15/25 Madeline Yo [address] [place] [address] 3rd [place] [address] Cardiology 01/15/25 [employer] 01/05/25 documented as of this encounter
--- OUTSIDE RECORDS SUMMARY | 2025-04-05 14:32 | XMS_ITS | Encounter Summary ---
Author Organization [employer] Address [address] [place] [address] 7 [place] [address] Care Team Providers Care Patient Support Representative Name Role Phone Rosalind Cardoso Primary Care Provider [phone] Barron Wetzel MD Unavailable [phone] Madeline Yo Unavailable Encounter Details Date Type Department Care Team (Late st Contact Info) Description 05/29/2024 Orders Only [facility] [address] [place] [address] Rosalind Cardoso FNP [address] [place], [place] [phone] Type 2 diabetes mellitus with stage 3 [...] 05/03/2025 11:15 AM EDT Office Visit [facility] MED & PEDS 505 [place] [address] Rosalind Cardoso, TAMY 505 [place] [address] documented as of this encounter Procedures Procedure [...] 2:18 PM EST) Triglycerides 266(H) <150 mg/dL [facility] Comment:Desirable Triglyceri de: less than 150 mg/dLBorderline High Triglyceride 150-199 mg/dLHigh Triglyceride: 200-499 mg/dLVery High Triglyceride: greater than or equal to 5OO mg/dL Cholesterol 250(H) <200 mg/dL [facility] Comment:Desirable Cholestero l: less than 200 mg/dLBorderline High Cholesterol: 200-239 mg/dLHigh Cholesterol: greater than 239 mg/dL LDL Cholesterol Calculated 161(H) <100 mg/dL [facility] Comment:Desirable LDL: less than 100 mg/dLNear Optimal/Above Optimal LDL: 110- 129 mg/dLBorderline High LDL: 130-159 mg/dLHigh LDL: 160-189 mg/dLVery High LDL: greater than or equal to 190 mg/dL HDL Cholesterol 36(L) >40 mg/dL [facility] Comment:Desirable HDL: great er than 40 mg/dL Note: This HDL assay may give artificially low results in patients with liver disease. 05/29/2024 2:18 PM EST 05/29/2024 2:18 PM EST us Generic External Data Provider LAB BLOOD ORDERAB LES Final Result [facility] [address] [place], [place] [phone] * (ABNORMAL) Comprehensive Metabolic Panel (05/29/2024 2:18 PM EST) Sodium 134(L) 135 - 145 mmol/L [facility] Potassium 4.0 3.3 - 5.1 mmol/L [facility] Chloride 99 96 - 108 mmol/L [facility] Carbon Dioxide 26 22 - 29 mmol/L [facility] Anion Gap 13 12 - 20 [facility] Urea Nitrogen (BUN) 41(H) 9 - 16 mg/dL [facility] Creatinine, Serum 1.49(H) 0.5 - 1.4 mg/dL [facility] Estimated Glomerular Filt Rate 36 [facility] Comment:Chronic Kidney Disea se: Estimated GFR < 60 mL/min/1.54d7Asaimd Kidney Disease: Estimated GFR < 15 mL/min/1.73m2 Glucose 370(HH) 60 - 115 mg/dL [facility] Comment:Critical value for t est(s): GLUR Results called to concepcion back by: KJ Gallegos Person calling: HAKEEMRICKY Date:05/29/24Time:1558 Calcium 9.5 8.4 - 10.2 mg/dL [facility] Bilirubin, Total 0.3 0.0 - 1.0 mg/dL [facility] Aspartate Amino Transferase 65(H) 5 - 31 U/L [facility] Alanine Aminotransferase 64(H) 0 - 31 U/L [facility] Total Protein 6.9 6.5 - 8.0 g/dL [facility] Albumin Level 3.4(L) 3.5 - 5.0 g/dL [facility] Alkaline Phosphatase 146(H) 39 - 117 U/L [facility] 05/29/2024 2:18 PM EST 05/29/2024 2:18 PM EST us Generic External Data Provider LAB BLOOD ORDERAB LES Final Result [facility] [address] [place] [phone] * (ABNORMAL) CBC auto differential (05/29/2024 2:18 PM EST) White Blood Count 12.0(H) 4.8 - 10.8 X10*3/uL [facility] Red Blood Count 4.01(L) 4.20 - 5.50 X10*6/uL [facility] Hemoglobin 7.8(L) 12.0 - 16.0 g/dl [facility] Hematocrit 25.3(L) 37.0 - 47.0 % [facility] Mean Corpuscular Volume 63.1(L) 80.0 - 98.0 fL [facility] Mean Corpuscular Hemoglobin 19.5(L) 27.0 - 33.0 pg [facility] Mean Corpuscular HGB Conc 30.8(L) 31.0 - 35.0 g/dl [facility] Red Cell Distribution Width 15.3 11.0 - 16.0 % [facility] Platelet Count 312 160 - 400 X10*3/uL [facility] Mean Platelet Volume 10.4 9.4 - 12.3 fL [facility] Neutrophils Percent Auto 71.1 45 - 73 % [facility] Imm Gran Pct Auto 0.9(H) 0.0 - 0.4 % [facility] Lymphocytes Percent Auto 18.6(L) 20 - 40 % [facility] Monocytes Percent Auto 6.4 2 - 11 % [facility] Eosinophils Percent Auto 2.6 0 - 4 % [facility] Basophils Percent Auto 0.4 0 - 2 % [facility] NRBC Pct Auto 0.2 0.0 - 0.2 /100WBC [facility] Neutrophils Absolute Auto 8.6(H) 2.0 - 8.3 x10*3/uL [facility] Imm Gran Abs Auto 0.11(H) 0.00 - 0.03 X10*3/uL [facility] Lymphocytes Absolute Auto 2.2 1.2 - 4.9 X10*3/uL [facility] Monocytes Absolute Auto 0.8 0.1 - 1.2 X10*3/uL [facility] Eosinophils Absolute Auto 0.3 0.0 - 0.4 X10*3/uL [facility] Basophils Absolute Auto 0.1 0.0 - 0.2 X10*3/uL [facility] NRBC Abs Auto 0.020(H) 0.0 - 0.012 X10*3/uL [facility] 05/29/2024 2:18 PM EST 05/29/2024 2:18 PM EST us Generic External Data Provider LAB BLOOD ORDERAB LES Final Result [facility] [address] [place] [address] [phone] documented in this encounter Visit Diagnoses [...] documented as of this encounter Care Teams Patient Support Representative Relationship Specialty Start Date End Date Rosalind Cardoso FNP [address] [place] [address] PCP - General Family Medicine 04/28/21 Barron Wetzel MD 100 [facility] 200 [place] [phone] Nephrology 01/15/25 Madeline Yo [address] [place] [address] Drive 3rd [place] [address] Cardiology 01/15/25 [employer] 01/05/25 documented as of this encounter
--- OUTSIDE RECORDS SUMMARY | 2025-04-05 14:32 | XMS_ITS | Encounter Summary ---
Author Organization [employer] Address [address] [place] [address] [facility] [place] [address] Care Team Providers Care De Icer Finisher Name Role Phone Rosalind Cardoso Primary Care Provider [phone] Barron Wetzel MD Unavailable [phone] Madeline Yo Unavailable Encounter Details Date Type Department Care Team (Late st Contact Info) Description 05/22/2024 Orders Only [facility] MED & PEDS [address] [place], [place] [phone] Rosalind Cardoso FNP [address] [place], [place] [phone] Type 2 diabetes mellitus with stage 3 chronic kidney disease, with long-term current use of insulin, unspecified whether stage 3a or 3b CKD (CMS/HCC); Primary hypertension; Stage 3b chronic kidney disease ([facility]/HCC); 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 ([facility]); Low back pain at multiple sites; Type 2 diabetes mellitus with hyperglycemia, with long-term current use of insulin (CMS/[facility]); Type 2 diabetes mellitus with foot ulcer, with long-term current use of insulin ([facility]); Pure hypercholesterolemia, unspecified; Pain; Type 2 diabetes mellitus with hyperglycemia (CMS/HCC); Type 2 diabetes mellitus with other specified complication, unspecified whether buttermaker helper insulin use (CMS/HCC); Fibromyalgia Social History Tobacco [...] [facility] [address] [place] [address] Rosalind Cardoso FNP [address] [place] [address] documented as of this encounter Visit Diagnoses Diagnosis Type 2 diabetes mellitus with stage 3 chronic kidney disease, with long-term current use of insulin, unspecified whether stage 3a or 3b CKD (HCC) Primary hypertension Unspecified essential hypertension Stage 3b chronic kidney disease (CMS/HCC) (HCC) 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) Low back pain at multiple sites Type 2 diabetes mellitus with hyperglycemia, with long-term current use of insulin (HCC) Type 2 diabetes mellitus with foot ulcer, with long-term current use of insulin (HCC) Pure hypercholesterolemia, unspecified Pain Generalized pain Type 2 diabetes mellitus with hyperglycemia (HCC) Type 2 diabetes mellitus with other specified complication, unspecified whether buttermaker helper insulin use (HCC) Fibromyalgia Unspecified myalgia and myositis documented in this encounter Additional Health Concerns Assessment Noted Time PHQ-9 Depression Total Score: 0 12/26/19 23 1:09 PM EDT documented as of this encounter Care Teams De Icer Finisher Relationship Specialty Start Date End Date Rosalind Cardoso FNP [address] [place] [address] PCP - General Family Medicine 04/28/21 Barron Wetzel MD 100 [facility] 200 [place] [address] Nephrology 01/15/25 Madeline Yo [address] [place] [address] 3rd [place] [address] Cardiology 01/15/25 [employer] 01/05/25 documented as of this encounter
--- OUTSIDE RECORDS SUMMARY | 2025-04-05 14:32 | XMS_ITS | Encounter Summary ---
Author Organization [employer] Address [address] [place] [address] 7 [place] [address] Care Team Providers Care Food Mixer Repairer Name Role Phone Rosalind Cardoso Primary Care Provider [phone] Barron Wetzel MD Unavailable [phone] Madeline Yo Unavailable Encounter Details Date Type Department Care Team (Late st Contact Info) Description 06/05/2024 Orders Only [facility] MED & PEDS [address] [place], [place] [phone] Rosalind Cardoso FNP 505 [place], [place] [phone] Type 2 diabetes mellitus with stage 3 [...] [facility] MED & PEDS [address] [place] [address] Rosalind Cardoso, TAMY [address] [place] [address] documented as of this encounter Procedures Procedure [...] leg through tibia and fibula ([facility]/HCC) MAGNESIUM Routine 06/08/2024 9:25 AM EST Type 2 diabetes mellitus with stage 3 chronic kidney disease, with long-term current use of insulin, unspecified whether stage 3a or 3b CKD (CMS/HCC) Primary hypertension Stage 3b chronic kidney disease (CMS/HCC) History of amputation of left leg through tibia and fibula ([facility]/HCC) documented in this encounter Results * Prothrombin Time-INR (06/08/2024 9:25 AM EST) Prothrombin Time 11.7 10.9 - 12.4 SEC [facility] INTERNATIONAL NORM RATIO 1.0 0.9 - 1.1 [facility] Comment:INTERNATIONAL NORMAL IZED RATIO (INR) [...] 06/08/2024 9:25 AM EST us Rosalind Cardoso [facility] BLOOD ORDERABLES Final Res ult [facility] [address] [place] [address] [phone] * (ABNORMAL) C-reactive Protein (06/08/2024 9:25 AM EST) C Reactive Protein 1.04(H) < or = 0.50 mg/dL [facility] Blood Venous blood specimen / Unknown 06/08/2024 9:25 AM EST 06/08/2024 9:25 AM EST us Rosalind Cardoso LICENSE DISTRIBUTOR LAB BLOOD ORDERABLES Final Res ult Performing Organization Address [facility] Co de Phone Number [facility] [address] [place] [phone] * (ABNORMAL) Sed Rate by Modified Westergren (06/08/2024 9:25 AM EST) Erythrocyte Sedimentation Rate 54(H) 0 - 20 MM/HR [facility] Comment:Patients with polycy themia and many hemoglobin abnormalitiesmay have depressed sed rates whereas patients with anemiamay have elevated sed rates. Blood Venous blood specimen / Unknown 06/08/2024 9:25 AM EST 06/08/2024 9:25 AM EST us Rosalind Cardoso LICENSE DISTRIBUTOR LAB BLOOD ORDERABLES Final Res ult Performing Organization Address [facility] Phone Number [facility] [address] [place] [phone] * Magnesium (06/08/2024 9:25 AM EST) Magnesium 1.9 1.6 - 2.6 mg/dL [facility] Blood Venous blood specimen / Unknown 06/08/2024 9:25 AM EST 06/08/2024 9:25 AM EST us Rosalind Cardoso LICENSE DISTRIBUTOR LAB BLOOD ORDERABLES Final Res ult Performing Organization Address [facility] de Phone Number [facility] [address] [place] [phone] documented in this encounter Visit Diagnoses [...] as of this encounter Care Teams Food Mixer Repairer Relationship Specialty Start Date End Date Rosalind Cardoso FNP [address] [place] [address] PCP - General Family Medicine 04/28/21 Barron Wetzel MD [address] [phone] Nephrology 01/15/25 Madeline Yo [address] [place] [address] Drive 3rd [place] [address] Cardiology 01/15/25 [employer] 01/05/25 documented as of this encounter
--- OUTSIDE RECORDS SUMMARY | 2025-04-05 14:32 | XMS_ITS | Clinical Summary ---
Author Organization [employer] Address [address] [place] [address] 7 [place] [address] Care Team Providers Care Case Specialist Name Role Phone Teoenda Rosalind MORELOS Primary Care Provider [phone] Barron Wetzel MD Unavailable [phone] Madeline Yo Unavailable Allergies Active Allergy Reactions [...] chronic osteomyelitis, left ankle and foot (CMS/HCC) (HCC) APPLY TOPICALLY TO AFFECTED AREA(S) THREE TIMES DAILY FOR 10 DAYS 22 g 3 3 Active sodium chloride (Deep Sea Nasal Burdett) 0.65 % nasal spray USE 1 SPRAY IN EACH NOSTRIL NEEDED FOR NASAL CONGESTION 44 mL 11 4 Active folic acid (Folvite) 1 MG tablet Take 1 tablet (1 mg) by mouth Once daily. 90 tablet 4 Active aspirin (Aspirin Adult Low Strength) 81 MG EC tabletIndications :Type 2 diabetes mellitus with hyperglycemia, with long-term current use of insulin (HCC) Take 1 tablet (81 mg) by mouth Once daily. 90 tablet 3 4 Active chlorthalidone (Hygroton) 25 MG tablet Take 1 tablet (25 mg) by mouth in the morning. 90 tablet 3 4 Active atorvastatin (Lipitor) 80 MG tablet TAKE 1 TABLET BY MOUTH AT BEDTIME 90 tablet 3 4 Active pantoprazole (ProtoNix) 40 MG EC tablet Take 1 tablet (40 mg) by mouth Once daily. 90 tablet 3 4 Active cholecalciferol (Vitamin D-3) 25 MCG (1000 UT) tablet Take 1 tablet (25 mcg) by mouth Once daily. 90 tablet 3 4 Active metoprolol succinate XL (Toprol XL) [...] OFF FOR 12 HOURS DIRECTED 30 patch 4 Active bacitracin 500 UNIT/GM ointment Apply topically 2 times daily. Apply to affected area daily 30 g 4 Active Blood Glucose Monitoring Suppl kitIndications:Ty pe 2 diabetes mellitus with foot ulcer, with long-term current use of insulin ([facility]) Use to check Blood glucose values three times dailyUse to check Blood glucose values three times daily 1 kit 1 5 Active Blood Pressure kit Use to check blood pressure daily and when symptomatic. 1 kit 5 Active Alcohol Swabs (SM Alcohol Prep) 70 % padsIndications:T ype 2 diabetes mellitus with foot ulcer, with long-term current use of insulin ([facility]) TEST BLOOD SUGAR THREE TIMES DAILY 100 each 5 Active FreeStyle lancets 1 each by Other route 3 times daily. Use as instructed 100 each 5 Active pen needle 31G x 5 mm misc Inject under the skin 3 times daily. Use as instructed 100 each 3 5 Active Repatha SureClick 140 MG/ML injection 5 Active furosemide (Lasix) 40 MG tablet Take 2 tablets by mouth Once per day. 4 Active insulin glargine (Lantus SoloStar) 100 UNIT/ML penIndications:Ty pe 2 diabetes mellitus with hyperglycemia (HCC) Inject 45 units once daily as directed. 3 mL 5 Active lidocaine-priloca ine (Emla) 2.5-2.5 % creamIndications: Other chronic osteomyelitis of left foot (HCC) APPLY TO THE AFFECTED AREA(S) ONCE DAILY NEEDED FOR PAIN 30 g 11 5 Active clotrimazole (Lotrimin) 1 % cream APPLY TOPICALLY TWICE DAILY FOR 28 DAYS 30 g 3 5 Active glucose blood (OneTouch Verio) test stripIndications: Type 2 diabetes mellitus with stage 3 chronic kidney disease, with long-term current use of insulin, unspecified whether stage 3a or 3b CKD ([facility]) USE DIRECTED TO TEST BLOOD SUGAR THREE TIMES DAILY 100 strip 11 5 Active albuterol 108 (90 Base) MCG/ACT inhaler Inhale 2 puffs every 6 (six) hours if needed for wheezing or shortness of breath. 18 g 11 5 01/16/20 26 Active lisinopril 10 MG tablet Take 1 tablet (10 mg) by mouth Once per day. 30 tablet 3 5 01/22/20 26 Active magnesium oxide (Mag-Ox) 400 MG tabletIndications :Type 2 diabetes mellitus with other specified complication, unspecified whether adjunct faculty for medical terminology insulin use (HCC) TAKE 1 TABLET BY MOUTH THREE TIMES DAILY 270 tablet 1 5 Active amitriptyline (Elavil) 25 MG tabletIndications :Fibromyalgia TAKE 1 TABLET BY MOUTH AT BEDTIME 90 tablet 1 5 Active Acetaminophen Extra Strength 500 MG [...] BMD Cervicalgia 08/11/2023 Overview (08/11/2023): [place] through [facility] - MRI cervical spine completed Jul 2023 unremarkable Referral to [facility] [place] Management 08/11/23 Fibromyalgia 05/14/2023 Overview (12/10/2023): Previously followed [place] [facility] [place], Dr. Jolly Continues with amitriptyline 25mg [...] BKA performed by Dr. Borden 09/01/22 at [facility] -Indication: gangrene and ulcers of the left foot, charcot foot, and OM Assessment & Plan (01/15/2025 4:49 PM EDT): Mainly wheelchair-bound due to inability to use the prosthetics secondary to leg swelling (worsens over summer) DME rx for Transport Chair and Wheelchair (repair or replace) provided 01/15/25. Also sent to HIM to scan into record. Referral to [facility] ED for eval of lightweight [...] physical therapy, referral for physical therapy at [facility] Assessment & Plan (12/26/2022 8:59 AM [...] -Cont Metoprolol succ 100mg daily -Following with [facility] [place] Assessment & Plan (11/05/2022 9:48 PM [...] 06/20/2022 Overview (03/16/2024): -Optometry: NABORNovember 2021 -Dental: [facility] dental [facility] -Pap: reports last 2019 and believes results were normal, referred to UroGYN -Mammo: 11/29/23 BIRADS 1 -Colorectal CA screening: iFOBT neg 12/18/21, due Assessment & Plan (10/03/2023 12:48 PM EDT): Complex care management/medical binder completed today and reviewed with patient -Pt continues to decline all vaccines Assessment & Plan (06/21/2023 9:30 PM EST): -Optometry: NABORNovember 2021 -Dental: [facility] dental clinic -Pap: reports last 2019 and believes results were normal, referred to UroGYN -Colorectal CA screening: iFOBT neg 12/18/21, due December 2022 Complex care management/medical binder completed today with patient. Medical binder to be picked up next week when elevator in apartment functioning. Assessment & Plan (11/05/2022 9:38 PM EDT): -Optometry: NABOR November 2021 -Dental: [facility] dental clinic -Pap: reports last 2019 and believes results were normal, referred to UroGYN -Colorectal CA screening: iFOBT neg 12/18/21, due December 2022 -Mammogram: BIRADS 3 on 01/16/22, due Jul 2022 -Outstanding vaccines: influenza, Tdap, Shingrix, PCV20, COVID CCA Program Clinician Osi: plan to schedule follow up appts the following specialists: [facility] Nephrology [facility] Endo C GI C Cards [facility] UroGYN Assessment & Plan (06/20/2022 6:06 PM EST): -Optometry: NABORNovember 2021 -Dental: [facility] dental clinic -Pap: reports last 2019 and [...] stopping Plavix) Stage 3b chronic kidney disease ([facility]/HCC) 2021 Overview (01/15/2025): Followed by Nephrology - Dr. [...] to add microalbumin to routine blood work [id number], ordered Irritable bowel syndrome 09/21/2021 Peripheral vascular [...] HGBA1C 11.3 (H) 08/22/2021 -Previously followed by [facility], plan to start with [facility] -Cont current medication regimen Lantus 40 [...] drug classes. - Scheduled to meet with [facility] next week for further discussion of [...] EST): -A1c 8.0 on 05/01/22 -Followed by [facility] Cristina -Continue on current regimen: -metformin 1000mg BID -Jardiance 10mg daily -Lantus 40 units at bedtime -Actos 15mg daily -Movement/exercise as tolerated Beta thalassemia trait 10/09/2018 Second degree uterine prolapse 10/09/2018 Urinary incontinence 10/09/2018 Overview (12/10/2023): Following with [facility] UroGYN for hx urinary incont [...] Plan (10/03/2023 12:45 PM EDT): Following with C Heme/Onc, plan to repeat labs through PCP [id number]: CBC, CMP, magnesium, sed rate, CRP, microalbumin Continues with Procrit while Hemoglobin < 10 Assessment & Plan (05/14/2023 12:02 PM EST): Following with [facility] [place], plan to repeat labs today through PCP Q 2 weeks: CBC, CMP, magnesium, sed rate, CRP, microalbumin Assessment & Plan (12/26/2022 9:00 AM EDT): Previously followed by [facility] [place], plan to repeat labs today through PCP Q 2 weeks: CBC, CMP, magnesium, sed rate, CRP, microalbumin Assessment & Plan (11/05/2022 9:50 PM EDT): Previously followed by [facility] [place]c, plan to repeat labs today through PCP. Ordered. Osteoarthritis of both knees 08/12/2017 Primary hypertension 03/16/2016 Overview (01/15/2025): Following with [facility] [place] - Dr. Middleton/Srinath, CHANDU. September 2022: [...] medications. PAP smear: Overdue, will refer to [employer] as she has uterine prolapse as well. [...] 2 (mild) 12/19/2022 05/12/2023 Osteomyelitis of foot (CMS/HCC) 06/14/2022 10/17/2022 Overview (08/01/2022): Patient was hospitalized 07/09/21 - [...] or cuboid bones. Pt was seen by [facility] [place] and initiated on PO doxy x 6 weeks, with possible need for surgical intervention. Following with [facility] [place] - Dr. Vigil - and podiatry. 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 being followed by ID and vascular Encounters Date Type Department Care Team Description 04/05/2025 Orders Only GENERIC EXTERNAL DATA DEPARTMENT Provider, Generic External Data 03/30/2025 Telephone [facility] [address] [place] [address] Rosalind Cardoso FNP 03/18/2025 Telephone [facility] [address] [place] [address] Rosalind Cardoso FNP Referral 03/11/2025 Orders Only GENERIC EXTERNAL DATA DEPARTMENT Provider, Generic External Data 02/26/2025 Orders Only GENERIC EXTERNAL DATA DEPARTMENT Provider, Generic External Data 02/17/2025 Refill [facility] [address] [place] [address] Rosalind Cardoso FNP Low back pain at multiple sites 02/11/2025 Orders Only GENERIC EXTERNAL DATA DEPARTMENT Provider, Generic External Data 01/29/2025 Telephone [facility] [address] [place] [address] Amira Ayoub PharmD 01/25/2025 Telephone [facility] [address] [place] [address] Rosalind Cardoso FNP FYI 01/25/2025 Orders Only [facility] [address] [place] [address] Waleska Mccoy MD Type 2 diabetes mellitus with stage 3 chronic kidney disease, with long-term current use of insulin, unspecified whether stage 3a or 3b CKD (CMS/HCC) (Primary Dx) 01/22/2025 1:00 PM EDT Telemedicine [facility] [address] [place] [address] Amira Ayoub PharmD Type 2 diabetes mellitus with stage 3 chronic kidney disease, with long-term current use of insulin, unspecified whether stage 3a or 3b CKD (CMS/HCC) (Primary Dx); Primary hypertension 01/22/2025 Telephone [facility] [address] [place] [phone] Rosalind Cardoso FNP Nurse Triage 01/22/2025 Telephone [facility] [address] [place] [address] Amira Ayoub, [place] 01/22/2025 Travel 01/21/2025 1:00 PM EDT Office Visit [facility] [address] [place] [phone] Gala Amado DO Acute nonintractable headache, unspecified headache type (Primary Dx); Essential hypertension 01/21/2025 Refill [facility] [address] [place] [address] Rosalind Cardoso FNP Type 2 diabetes mellitus with other specified complication, unspecified whether assisted insulin use (CMS/HCC); Fibromyalgia 01/21/2025 Travel 01/19/2025 Telephone [facility] [address] [place] [address] Rosalind Cardoso FNP Nurse Triage 01/19/2025 Telephone [facility] [address] [place] [phone] Rosalind Cardoso FNP Durable Medical Equipment 01/15/2025 11:15 AM EDT Office Visit [facility] [address] [place] [address] Rosalind Cardoso FNP Coronary artery disease involving takotna coronary artery of takotna heart, unspecified whether angina present (Primary Dx); Type 2 diabetes mellitus with stage 3 chronic kidney disease, with long-term current use of insulin, unspecified whether stage 3a or 3b CKD ([facility]); Primary hypertension; Hypercholesterolemia; Stage 3b chronic kidney disease (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); Impaired mobility and ADLs; Peripheral vascular disease ([facility]); History of bronchitis 01/15/2025 Travel 01/14/2025 Telephone [facility] [address] [place] [address] Rosalind Cardoso FNP Call Back Request 01/11/2025 Telephone [facility] [address] [place] [address] Rosalind Cardoso FNP FYI 01/06/2025 Telephone [facility] [address] [place] [address] Rosalind Cardoso FNP Call Back Request from Last 3 Months Social History Tobacco [...] Description 05/03/2025 11:15 AM EDT Office Visit [facility] [address] [place] [address] Rosalind Cardoso FNP [address] [place] [address] Health Maintenance Due Date Last Done Comments [...] (#1) 2025 Depression Screening 08/03/2025 08/03/2024, 08/03/19 25 Disability Screening 08/03/2025 08/03/2024 Diabetes: Foot Exam [...] AUTO DIFFERENTIAL Routine 04/05/2025 1:41 PM EDT CBC WITH AUTO DIFFERENTIAL Routine 03/11/2025 11:58 [...] stage 3a or 3b CKD (CMS/HCC) POCT GLYCATED HEMOGLOBIN, TOTAL Routine 11/26/2024 [...] Maintenance Results * (ABNORMAL) CBC auto differential (04/05/2025 1:41 PM EDT) Only the most recent of4 resultswithin the time period is included. White Blood Count 9.1 4.8 - 10.8 X10*3/uL [facility] Red Blood Count 5.95(H) 4.20 - 5.50 X10*6/uL [facility] Hemoglobin 11.2(L) 12.0 - 16.0 g/dl [facility] Hematocrit 36.7(L) 37.0 - 47.0 % [facility] Mean Corpuscular Volume 61.7(L) 80.0 - 98.[address] [facility] Mean Corpuscular Hemoglobin 18.8(L) 27.0 - 33.[address] [facility] Mean Corpuscular HGB Conc 30.5(L) 31.0 - 35.0 g/dl [facility] Red Cell Distribution Width 18.3(H) 11.0 - 16.0 % [facility] Platelet Count 297 160 - 400 X10*3/uL [facility] Mean Platelet Volume TNP 9.4 - 12.[address] [facility] Neutrophils Percent Auto 58.9 45 - 73 % [facility] Imm Gran Pct Auto 0.2 0.0 - 0.4 % [facility] Lymphocytes Percent Auto 27.5 20 - 40 % [facility] Monocytes Percent Auto 9.2 2 - 11 % [facility] Eosinophils Percent Auto 3.5 0 - 4 % [facility] Basophils Percent Auto 0.7 0 - 2 % [facility] NRBC Pct Auto 0.0 0.0 - 0.2 /100WBC [facility] Neutrophils Absolute Auto 5.4 2.0 - 8.3 x10*3/uL [facility] Imm Gran Abs Auto 0.02 0.00 - 0.03 X10*3/uL [facility] Lymphocytes Absolute Auto 2.5 1.2 - 4.9 X10*3/uL [facility] Monocytes Absolute Auto 0.8 0.1 - 1.2 X10*3/uL [facility] Eosinophils Absolute Auto 0.3 0.0 - 0.4 X10*3/uL [facility] Basophils Absolute Auto 0.1 0.0 - 0.2 X10*3/uL [facility] NRBC Abs Auto 0.000 0.0 - 0.012 X10*3/uL [facility] 04/05/2025 1:41 PM EDT 04/05/2025 1:41 PM EDT Generic External Data Provider LAB BLOOD ORDERAB LES Final Result Performing Organization Address [facility] [address] [facility] Co de Phone Number [facility] [address] [place] [phone] * Prothrombin Time-INR (02/26/2025 11:02 AM EDT) Prothrombin Time 11.3 10.9 - 12.[address] [facility] INTERNATIONAL NORM RATIO 1.0 0.9 - 1.[address] [facility] Comment:INTERNATIONAL NORMAL IZED RATIO (INR) [...] 2 AM EDT 02/26/2025 11:51 AM EDT [employer] External Data Provider LAB BLOOD ORDERAB LES Final Result Performing Organization Address [facility] Co de Phone Number [facility] [address] [place] [phone] * (ABNORMAL) Basic Metabolic Panel (02/26/2025 11:02 AM EDT) Sodium 138 135 - 145 mmol/L [facility] Potassium 4.0 3.3 - 5.1 mmol/L [facility] Chloride 102 96 - 108 mmol/L [facility] Carbon Dioxide 26 22 - 29 mmol/L [facility] Anion Gap 14 12 - [address] [facility] Urea Nitrogen (BUN) 56(H) 9 - 16 mg/dL [facility] Creatinine, Serum 1.90(H) 0.5 - 1.4 mg/dL [facility] Estimated Glomerular Filt Rate [address] [facility] Comment:Chronic Kidney Disea se: Estimated GFR < 60 mL/min/1.44w6Jdslmd Kidney Disease: Estimated GFR < 15 mL/min/1.73m2 Glucose 260(H) 60 - 115 mg/dL [facility] Calcium 9.0 8.4 - 10.2 mg/dL [facility] 02/26/2025 11:0 2 AM EDT 02/26/2025 11:51 AM EDT us Generic External Data Provider LAB BLOOD ORDERAB LES Final Result [facility] [address] [place] [phone] * (ABNORMAL) Lipid Panel, Standard (02/11/2025 11:32 AM EDT) Triglycerides 189(H) <150 mg/dL [facility] Comment:Desirable Triglyceri de: less than 150 mg/dLBorderline High Triglyceride 150-199 mg/dLHigh Triglyceride: 200-499 mg/dLVery High Triglyceride: greater than or equal to 5OO mg/dL Cholesterol 214(H) <200 mg/dL [facility] Comment:Desirable Cholestero l: less than 200 mg/dLBorderline High Cholesterol: 200-239 mg/dLHigh Cholesterol: greater than 239 mg/dL LDL Cholesterol Calculated 152(H) <100 mg/dL [facility] Comment:Desirable LDL: less than 100 mg/dLNear Optimal/Above Optimal LDL: 110- 129 mg/dLBorderline High LDL: 130-159 mg/dLHigh LDL: 160-189 mg/dLVery High LDL: greater than or equal to 190 mg/dL HDL Cholesterol 25(L) >40 mg/dL [facility] Comment:Desirable HDL: great er than 40 mg/dL Note: This HDL assay may give artificially low results in patients with liver disease. 02/11/2025 11:3 2 AM EDT 02/11/2025 11:32 AM EDT us Generic External Data Provider LAB BLOOD ORDERAB LES Final Result [facility] [address] [place] [address] [phone] * (ABNORMAL) POCT glucose manually resulted (01/15/2025 10:19 AM EDT) Glucose Blood, POC 224(A) 60 - 200 mg/dL QC [employer] Lot # Comment:[id number] Lot# Expiration Date Comment:05/06/2025 Blood Capillary blood specimen / Unknown 01/15/2025 10:19 AM EDT us Rosalind STARKSP POINT OF CARE TEST ENTER/EDIT ORDERABLES Final Result * (ABNORMAL) POCT HGB A1C (11/26/2024 9:32 [...] PM EDT Narrative 12/27/2023 3:26 PM EDT [place] [place] [address] Mammography Report Signed Patient: Mitra Parish MR#: [id number] : 1965 Acct:[id number] Age/Sex: 58 / F ADM Date: 11/29/23 Loc: MAMMO Attending Dr: Rosalind MORELOS Ordering Physician: Rosalind Cardoso Results: 1Negat moncho Date of Service: 11/29/23 Follow Up: 1 Year From Orig inal Mammogram Procedure(s): MM tomosynthesis screening BI Accession Number(s): [id number] cc: Rosalind Cardoso EXAMINATION: MM SCREENING DIGITAL [...] in OV> 12/27/23 1522 DD/ 1440 TD/TT: Start Up Specialist: Procedure Note Donotuseinterpreter, Image - 12/27/[address] [place] [address] Mammography Report Signed Patient: Carolyn ParishR#: [id number] : 1965Acct:[id number] Age/Sex: 58 / FADM Date: 11/29/23 Loc: MAMMO Attending Dr: Rosalind Cardoso LOCOMOTIVE LUBRICATING SYSTEMS CLERK Ordering Physician: Rosalind CardosoPResults: 1Negat moncho Date of Service: 11/29/23Follow Up: 1 Year From Orig ina Mammogram Procedure(s): MM tomosynthesis screening BI Accession Number(s): [id number] cc: Rosalind Cardoso EXAMINATION: MM SCREENING DIGITAL [...] in OV> 12/27/23 1522 DD/ 1440 TD/TT: Start Up Specialist: Rosalind MORELOS IMG BI PROCEDURES Final Result * HEPATITIS C AB W/REFL TO HCV RNA, QN, PCR (08/22/2021 8:22 AM EST) HEPATITIS C ANTIBODY NON-REACT MONCHO NON-REACT MONCHO [facility] INDEX 0.02 <1.00 [facility] Comment: HCV antibody was non-reactive. There is no laboratory evidence of HCV infection. In most cases, no further action is required. However, if recent HCV exposure is suspected, a test for HCV RNA (test code 72424) is suggested. For additional information please refer to http://education.[employer]/faq/EMO27r8 (This link is being provided for informational/ educational purposes only.) 08/22/2021 8:22 AM EST Rosalind Janae STARK[facility] HISTORICAL/NON ORDERABLE LABS Final Result Performing Organization Address [facility] [address] [facility] de Phone Number [facility] [address] * HIV 1/2 ANTIGEN/ANTIBODY,FOURTH GENERATION W/RFL (08/22/2021 8:22 AM EST) HIV-1/2 ANTIGEN AND ANTIBODIES, 4TH GENERATION W/ REFLEX NON-REACT MONCHO NON-REACT MONCHO [facility] Comment: HIV-1 antigen and HIV-1/HIV-2 [...] purpose. For additional information please refer to http://education.[employer]/faq/DTG830 (This link is being provided for informational/ educational purposes only.) The performance of this assay has not been clinically validated in patients less than 2 years old. 08/22/2021 8:22 AM EST Rosalind STARKSP LAB BLOOD ORDERABLES Final Res ult Performing Organization Address [facility] [address]/[facility] Co de Phone Number [facility] [address] from Last 3 Months or Most Recently Relevant to Health Maintenance Insurance [facility] ONE CARE < 65 [place] [id number] Care Teams Case Specialist Relationship Specialty Start Date End Date Rosalind Cardoso FNP [address] [place] [address] PCP - General Family Medicine 04/28/21 Barron Wetzel MD [address] [phone] Nephrology 01/15/25 Madeline Yo [address] [place] [address] [address] [place] [address] Cardiology 01/15/25 Famely 01/05/25
--- OUTSIDE RECORDS SUMMARY | 2025-04-05 14:32 | XMS_ITS | Encounter Summary ---
Author Organization [employer] Address [address] [place] [address] [address] [place] [address] Care Team Providers Care Licensed Club Manager Name Role Phone Rosalind Cardoso Primary Care Provider [phone] Barron Wetzel MD Unavailable [phone] Madeline Yo Unavailable Encounter Details Date Type Department Care Team (Late st Contact Info) Description 03/20/2024 Orders Only [facility] [address] [place] [address] Rosalind Cardoso FNP [address] [place], [place] [phone] Type 2 diabetes mellitus with stage 3 [...] [facility] [address] [place] [address] Rosalind Cardoso FNP [address] [place] [address] documented as of this encounter Visit Diagnoses [...] as of this encounter Care Teams Licensed Club Manager Relationship Specialty Start Date End Date Rosalind Cardoso FNP [address] [place] [address] PCP - General Family Medicine 04/28/21 Barron Wetzel MD 100 [facility] [address] [place] [phone] Nephrology 01/15/25 Madeline Yo [address] [place] [address] Cardiology 01/15/25 [employer] 01/05/25 documented as of this encounter
--- OUTSIDE RECORDS SUMMARY | 2025-04-05 14:32 | XMS_ITS | Encounter Summary ---
Author Organization [employer] Address [address] [place] [address] 7 [place] [address] Care Team Providers Care Prison Librarian Name Role Phone Rosalind Cardoso Primary Care Provider [phone] Barron Wetzel MD Unavailable [phone] Madeline Yo Unavailable Encounter Details Date Type Department Care Team (Late st Contact Info) Description 04/24/2024 Orders Only [facility] MED & PEDS 505 [place], [place] [phone] Rosalind Cardoso FNP 505 [place], [place] [phone] Type 2 diabetes mellitus with stage 3 [...] [facility] MED & PEDS [address] [place] [address] Rosalind Cardoso FNP 505 [place] [address] documented as of this encounter Visit Diagnoses [...] documented as of this encounter Care Teams Prison Librarian Relationship Specialty Start Date End Date Rosalind Cardoso FNP [address] [place] [address] PCP - General Family Medicine 04/28/21 Barron Wetzel MD 100 [facility] 200 [place] [address] Nephrology 01/15/25 Madeline Yo [address] [place] [address] 3rd [place] [address] Cardiology 01/15/25 [employer] 01/05/25 documented as of this encounter
--- OUTSIDE RECORDS SUMMARY | 2025-04-05 14:32 | XMS_ITS | Encounter Summary ---
Author Organization [employer] Address [address] [place] [address] 7 [place] [address] Care Team Providers Care Pipe Fitter Supervisor Maintenance Name Role Phone Rosalind Cardoso Primary Care Provider [phone] Barron Wetzel MD Unavailable [phone] Madeline Yo Unavailable Encounter Details Date Type Department Care Team (Late st Contact Info) Description 04/03/2024 Orders Only [facility] MEDICINE 230 [place] [address] Rosalind Cardoso FNP [address] [place], [place] [phone] Type 2 diabetes mellitus with stage 3 [...] [facility] 505 [place] [address] Rosalind Cardoso FNP 505 [place] [address] documented as of this encounter Visit Diagnoses [...] as of this encounter Care Teams Pipe Fitter Supervisor Maintenance Relationship Specialty Start Date End Date Rosalind Cardoso FNP 230 [place] [address] PCP - General Family Medicine 04/28/21 Barron Wetzel MD [address] [facility] 200 [place] [address] Nephrology 01/15/25 Madeline Yo [address] 3rd [place] [address] Cardiology 01/15/25 [employer] 01/05/25 documented as of this encounter
--- OUTSIDE RECORDS SUMMARY | 2025-04-05 14:32 | XMS_ITS | Encounter Summary ---
Author Organization [employer] Address [address] [place] [address] 7 [place] [address] Care Team Providers Care Bookstore Manager Name Role Phone Rosalind Cardoso Primary Care Provider [phone] Barron Wetzel MD Unavailable [phone] Madeline Yo Unavailable Encounter Details Date Type Department Care Team (Late st Contact Info) Description 07/31/2024 Orders Only [facility] CHC MED & PEDS 505 [place], [place] [phone] Rosalind Cardoso FNP 505 [place], [place] [phone] Type 2 diabetes mellitus with stage 3 [...] [facility] 505 [place] [address] Rosalind Cardoso FNP 505 [place] [address] documented as of this encounter Visit Diagnoses [...] documented as of this encounter Care Teams Bookstore Manager Relationship Specialty Start Date End Date Rosalind Cardoso FNP 230 [place] [address] PCP - General Family Medicine 04/28/21 Barron Wetzel MD 100 [facility] 200 [place] [address] Nephrology 01/15/25 Madeline Yo [address] [place] [address] Drive 3rd [place] [address] Cardiology 01/15/25 [employer] 01/05/25 documented as of this encounter
--- OUTSIDE RECORDS SUMMARY | 2025-04-05 14:32 | XMS_ITS | Encounter Summary ---
Author Organization [employer] Address [address] [place] [address] 7 [place] [address] Care Team Providers Care Landscaper Helper Name Role Phone Rosalind Cardoso Primary Care Provider [phone] Barron Wetzel MD Unavailable [phone] Madeline Yo Unavailable Encounter Details Date Type Department Care Team (Late st Contact Info) Description 05/01/2024 Orders Only [facility] MEDICINE 230 [place] [address] Rosalind Cardoso FNP [address] [place], [place] [phone] Type 2 diabetes mellitus with stage 3 [...] Description 05/03/2025 11:15 AM EDT Office Visit [facility] MED & PEDS 505 [place] [address] Rosalind Cardoso FNP 505 [place] [address] documented as of this encounter Visit Diagnoses [...] documented as of this encounter Care Teams Landscaper Helper Relationship Specialty Start Date End Date Rosalind Cardoso FNP 230 [place] [address] PCP - General Family Medicine 04/28/21 Barron Wetzel MD 100 [facility] 200 [place] [address] Nephrology 01/15/25 Madeline Yo [address] 3rd [place] [address] Cardiology 01/15/25 [email or web address] 01/05/25 documented as of this encounter
--- OUTSIDE RECORDS SUMMARY | 2025-04-05 14:32 | XMS_ITS | Encounter Summary ---
Author Organization [employer] Address [address] [place] [address] 7 [place] [address] Care Team Providers Care Toe Closing Machine Tender Name Role Phone Rosalind Cardoso Primary Care Provider [phone] Barron Wetzel MD Unavailable [phone] Madeline Yo Unavailable Encounter Details Date Type Department Care Team (Late st Contact Info) Description 05/15/2024 Orders Only [facility] MEDICINE 230 [place] [address] Rosalind Cardoso FNP [address] [place], [place] [phone] Type 2 diabetes mellitus with stage 3 [...] [facility] MED & PEDS 505 [place] [address] Rosalind Cardoso FNP 505 [place] [address] documented as of this encounter Visit Diagnoses [...] documented as of this encounter Care Teams Toe Closing Machine Tender Relationship Specialty Start Date End Date Rosalind Cardoso FNP 230 [place] [address] PCP - General Family Medicine 04/28/21 Barron Wetzel MD 100 [facility] 200 [place] [address] Nephrology 01/15/25 Madeline Yo [address] 3rd [place] [address] Cardiology 01/15/25 [employer] 01/05/25 documented as of this encounter
--- OUTSIDE RECORDS SUMMARY | 2025-04-05 14:32 | XMS_ITS | Encounter Summary ---
Author Organization [employer] Address [address] [place] [address] 7 [place] [address] Care Team Providers Care Law Professor Name Role Phone Rosalind Cardoso Primary Care Provider [phone] Barron Wetzel MD Unavailable [phone] Madeline Yo Unavailable Encounter Details Date Type Department Care Team (Late st Contact Info) Description 02/14/2024 Orders Only [facility] CHC MED & PEDS 505 [place], [place] [phone] Rosalind Cardoso FNP 505 [place], [place] [phone] Type 2 diabetes mellitus with stage 3 [...] 11:15 AM EDT Office Visit [facility] MED & PEDS 505 [place] [address] Rosalind Cardoso FNP 505 [place] [address] documented as of this encounter Visit Diagnoses [...] documented as of this encounter Care Teams Law Professor Relationship Specialty Start Date End Date Rosalind Cardoso FNP [address] [place] [address] PCP - General Family Medicine 04/28/21 Barron Wetzel MD 100 [facility] 200 [place] [address] Nephrology 01/15/25 Madeline Yo [address] [place] [address] 3rd [place] [address] Cardiology 01/15/25 [employer] 01/05/25 documented as of this encounter
--- OUTSIDE RECORDS SUMMARY | 2025-04-05 14:32 | XMS_ITS | Encounter Summary ---
Author Organization [employer] Address [address] [place] [address] 7[address] [place] [address] Care Team Providers Care Industrial Welder Name Role Phone Rosalind Cardoso Primary Care Provider [phone] Barron Wetzel MD Unavailable [phone] Madeline Yo Unavailable Reason for Visit * Reason Comments Med Refill Encounter Details Date Type Department Care Team (Late st Contact Info) Description 11/28/2024 Refill [facility] CHC MED & PEDS 505 [place], [place] [phone] Rosalind Cardoso FNP [address] [place], [place] [phone] Type 2 diabetes mellitus with foot ulcer, with long-term current use of insulin ([facility]) Social History Tobacco Use Types [...] the past 12 months, has t he [employer], gas, oil or water company threatened to [...] AM EDT Office Visit [facility] MED & PEDS 505 [place] [address] Rosalind Cardoso FNP 505 [place] [address] documented as of this encounter Visit Diagnoses Diagnosis Type 2 diabetes mellitus with foot ulcer, with long-term current use of insulin (HCC) documented in this encounter Additional Health Concerns Assessment Noted Time PHQ-9 Depression Total Score: 6 08/03/19 25 9:07 AM EST documented as of this encounter Care Teams Industrial Welder Relationship Specialty Start Date End Date Rosalind Cardoso FNP 230 [place] [address] PCP - General Family Medicine 04/28/21 Barron Wetzel MD [address] [facility] 200 [place] [address] Nephrology 01/15/25 Madeline Yo [address] [place] [address] Drive 3rd [place] [address] Cardiology 01/15/25 [employer] 01/05/25 documented as of this encounter
--- OUTSIDE RECORDS SUMMARY | 2025-04-05 14:32 | XMS_ITS | Encounter Summary ---
Author Organization [employer] Address [address] [place] [address] 7 [place] [address] Care Team Providers Care Manufacturing Production Manager Name Role Phone Rosalind Cardoso Primary Care Provider [phone] Barron Wetzel MD Unavailable [phone] Madeline Yo Unavailable Encounter Details Date Type Department Care Team (Late st Contact Info) Description 03/27/2024 Orders Only [facility] CHC MED & PEDS 505 [place], [place] [phone] Rosalind Cardoso FNP 505 [place], [place] [phone] Type 2 diabetes mellitus with stage 3 [...] [facility] 505 [place] [address] Rosalind Cardoso FNP 505 [place] [address] documented as of this encounter Visit Diagnoses [...] documented as of this encounter Care Teams Manufacturing Production Manager Relationship Specialty Start Date End Date Rosalind Cardoso FNP [address] [place] [address] PCP - General Family Medicine 04/28/21 Barron Wetzel MD 100 [facility] 200 [place] [address] Nephrology 01/15/25 Madeline Yo [address] [place] [address] 3rd [place] [address] Cardiology 01/15/25 [employer] 01/05/25 documented as of this encounter
--- OUTSIDE RECORDS SUMMARY | 2025-04-05 14:32 | XMS_ITS | Encounter Summary ---
Author Organization [facility] Address [address] [place] [address] 7t [place] [address] Care Team Providers Care Automatic Riveting Machine Operator Name Role Phone Janae Rosalind TAMY Primary Care Provider [phone] Barron Wetzel MD Unavailable [phone] Madeline Yo Unavailable Encounter Details Date Type Department Care Team (Late st Contact Info) Description 05/23/2023 Abstract [facility] MEDICINE 230 [place] [address] Adela Pena Social History Tobacco Use Types [...] [facility] 505 [place] [address] Rosalind Cardoso FNP 505 [place] [address] documented as of this encounter Visit Diagnoses Not on filedocumented in this encounter Additional Health Concerns Assessment Noted Time PHQ-9 Depression Total Score: 0 12/26/19 23 1:09 PM EDT documented as of this encounter Care Teams Automatic Riveting Machine Operator Relationship Specialty Start Date End Date Rosalind Cardoso FNP 230 [place] [address] PCP - General Family Medicine 04/28/21 Barron Wetzel MD 100 [facility] 200 [place] [address] Nephrology 01/15/25 Madeline Yo [address] [place] [address] 3rd [place] [address] Cardiology 01/15/25 [employer] 01/05/25 documented as of this encounter
--- OUTSIDE RECORDS SUMMARY | 2025-04-05 14:32 | XMS_ITS | Encounter Summary ---
Author Organization [employer] Address [address] [place] [address] 7 [place] [address] Care Team Providers Care Piano Professor Name Role Phone Rosalind Cardoso Primary Care Provider [phone] Barron Wetzel MD Unavailable [phone] Madeline Yo Unavailable Encounter Details Date Type Department Care Team (Late st Contact Info) Description 06/12/2024 Orders Only [facility] MEDICINE 230 [place] [address] Rosalind Cardoso FNP [address] [place], [place] [phone] Type 2 diabetes mellitus with stage 3 [...] [facility] MED & PEDS 505 [place] [address] Rosalind Cardoso, TAMY 505 [place] [address] documented as of this encounter Procedures Procedure [...] Protein 0.50 < or = 0.50 mg/dL [facility] Blood Venous blood specimen / Unknown 06/23/2024 10:31 AM EST 06/23/2024 10:31 AM EST us Rosalind Cardoso BODY SHOP ESTIMATOR LAB BLOOD ORDERABLES Final Res ult Performing Organization Address [facility] Co de Phone Number [facility] [address] [place] [address] [phone] * Magnesium (06/23/2024 10:31 AM EST) Magnesium 1.8 1.6 - 2.6 mg/dL [facility] Blood Venous blood specimen / Unknown 06/23/2024 10:31 AM EST 06/23/2024 10:31 AM EST us Rosalind Janae [facility] LAB BLOOD ORDERABLES Final Res ult Performing Organization Address [facility] Co de Phone Number [facility] [address] [place] [address] [phone] documented in this encounter Visit Diagnoses [...] as of this encounter Care Teams Piano Professor Relationship Specialty Start Date End Date Rosalind Cardoso FNP [address] [place] [address] PCP - General Family Medicine 04/28/21 Barron Wetzel MD 100 [facility] 200 [place] [address] Nephrology 01/15/25 Madeline Yo [address] 3rd [place] [address] Cardiology 01/15/25 [employer] 01/05/25 documented as of this encounter
--- OUTSIDE RECORDS SUMMARY | 2025-04-05 14:32 | XMS_ITS | Encounter Summary ---
Author Organization [employer] Address [address] [place] [address] [facility] [place] [address] Care Team Providers Care Library Cataloging Technician Name Role Phone Rosalind Cardoso Primary Care Provider [phone] Barron Wetzel MD Unavailable [phone] Madeline Yo Unavailable Reason for Visit * Reason Comments Med Refill Encounter Details Date Type Department Care Team ([facility] st Contact Info) Description 05/28/2023 Refill [facility] MED & PEDS 505 [place] [address] Rosalind Cardoso FNP [address] [place], [place] [phone] Other chronic osteomyelitis of left foot (CMS/HCC); [...] [facility] MED & PEDS 505 [place] [address] Rosalind Cardoso FNP 505 [place] [address] documented as of this encounter Visit Diagnoses Diagnosis Other chronic osteomyelitis of left foot (HCC) Low back pain at multiple sites documented in this encounter Additional Health Concerns Assessment Noted Time PHQ-9 Depression Total Score: 0 12/26/19 23 1:09 PM EDT documented as of this encounter Care Teams Library Cataloging Technician Relationship Specialty Start Date End Date Rosalind Cardoso FNP 230 [place] [address] PCP - General Family Medicine 04/28/21 Barron Wetzel MD 100 [facility] 200 [place] [address] Nephrology 01/15/25 Madeline Yo [address] 3rd [place] [address] Cardiology 01/15/25 [employer] 01/05/25 documented as of this encounter
--- OUTSIDE RECORDS SUMMARY | 2025-04-05 14:32 | XMS_ITS | Encounter Summary ---
Author Organization [employer] Address [address] [place] [address] 7 [place] [address] Care Team Providers Care Lofter Name Role Phone Rosalind Cardoso Primary Care Provider [phone] Barron Wetzel MD Unavailable [phone] Madeline Yo Unavailable Encounter Details Date Type Department Care Team (Late st Contact Info) Description 03/13/2024 Orders Only [facility] 505 [place], [place] [phone] Rosalind Cardoso FNP 505 [place], [place] [phone] Type 2 diabetes mellitus with stage 3 [...] the past 12 months, has t he [employer], gas, oil or water company threatened to [...] 05/03/2025 11:15 AM EDT Office Visit [facility] MED [facility] PEDS 505 [place] [address] Rosalind Cardoso, TAMY 505 [place] [address] documented as of this encounter Procedures Procedure [...] Protein 1.25(H) < or = 0.50 mg/dL [facility] Blood Venous blood specimen / Unknown 05/29/2024 2:18 PM EST 05/29/2024 2:18 PM EST Rosalind MORELOS LAB BLOOD ORDERABLES Final Res ult [facility] [address] [place] [address] [phone] documented in this encounter Visit Diagnoses [...] documented as of this encounter Care Teams Lofter Relationship Specialty Start Date End Date Rosalind Cardoso FNP [address] [place] [address] PCP - General Family Medicine 04/28/21 Barron Wetzel MD [address] [address] Nephrology 01/15/25 Madeline Yo [address] [place] [address] 3rd [place] [address] Cardiology 01/15/25 [employer] 01/05/25 documented as of this encounter
--- OUTSIDE RECORDS SUMMARY | 2025-04-05 14:33 | XMS_ITS | Encounter Summary ---
Author Organization [employer] Address [address] [place] [address] 7 [place] [address] Care Team Providers Care Technical Manager Chemical Plant Name Role Phone Rosalind Cardoso Primary Care Provider [phone] Barron Wetzel MD Unavailable [phone] Madeline Yo Unavailable Encounter Details Date Type Department Care Team (Late st Contact Info) Description 11/06/2024 Orders Only [facility] MED & PEDS 505 [place], [place] [phone] Rosalind Cardoso FNP 505 [place], [place] [phone] Type 2 diabetes mellitus with stage 3 [...] Description 05/03/2025 11:15 AM EDT Office Visit [facility] MED & PEDS 505 [place] [address] Rosalind Cardoso, PLANT ANATOMIST 505 [place] [address] documented as of this encounter Procedures Procedure [...] EDT) Sodium 136 135 - 145 mmol/L [facility] Potassium 3.8 3.3 - 5.1 mmol/L [facility] Chloride 101 96 - 108 mmol/L [facility] Carbon Dioxide 26 22 - 29 mmol/L [facility] Anion Gap 13 12 - 20 [facility] Urea Nitrogen (BUN) 37(H) 9 - 16 mg/dL [facility] Creatinine, Serum 1.54(H) 0.5 - 1.4 mg/dL [facility] Estimated Glomerular Filt Rate 34 [facility] Comment:Chronic Kidney Disea se: Estimated GFR < 60 mL/min/[id number] Kidney Disease: Estimated GFR < 15 mL/min/1.73m2 Glucose 450(HH) 60 - 115 mg/dL [facility] Comment:Critical value for t est(s): GLUR Results called to and readback by: Person calling: aCon Date: 12/21/24 Time:1753 Calcium 8.8 8.4 - 10.2 mg/dL [facility] Bilirubin, Total 0.3 0.0 - 1.0 mg/dL [facility] Aspartate Amino Transferase 19 5 - 31 U/L [facility] Alanine Aminotransferase 25 0 - 31 U/L [facility] Total Protein 6.4(L) 6.5 - 8.0 g/dL [facility] Albumin Level 3.4(L) 3.5 - 5.0 g/dL [facility] Alkaline Phosphatase 119(H) 39 - 117 U/L [facility] Blood Venous blood specimen / Unknown 12/21/2024 2:13 PM EDT 12/21/2024 4:02 PM EDT us Rosalind Cardoso PLANT ANATOMIST LAB BLOOD ORDERABLES Final Res ult [facility] [address] [place] [phone] * Prothrombin Time-INR (12/18/2024 10:17 AM EDT) Prothrombin Time 11.8 10.9 - 12.4 SEC [facility] INTERNATIONAL NORM RATIO 1.0 0.9 - 1.1 [facility] Comment:INTERNATIONAL NORMAL IZED RATIO [...] EDT 12/18/2024 10:17 AM EDT Rosalind Cardoso PLANT ANATOMIST LAB BLOOD ORDERABLES Final Res ult Performing Organization Address [facility] Co de Phone Number [facility] [address] [place] [phone] * (ABNORMAL) C-reactive Protein (12/18/2024 10:17 AM EDT) C Reactive Protein 0.65(H) < or = 0.50 mg/dL [facility] Blood Venous blood specimen / Unknown 12/18/2024 10:17 AM EDT 12/18/2024 10:17 AM EDT Rosalind Cardoso [facility] LAB BLOOD ORDERABLES Final Res ult Performing Organization Address [facility] de Phone Number [facility] [address] [place] [phone] * (ABNORMAL) Sed Rate by Modified Mangoergren (12/18/2024 10:17 AM EDT) Erythrocyte Sedimentation Rate 25(H) 0 - 20 MM/HR [facility] Comment:Patients with polycy themia and many hemoglobin abnormalitiesmay have depressed sed rates whereas patients with anemiamay have elevated sed rates. Blood Venous blood specimen / Unknown 12/18/2024 10:17 AM EDT 12/18/2024 10:17 AM EDT Rosalind Cardoso [facility] LAB BLOOD ORDERABLES Final Res ult Performing Organization Address [facility] Co de Phone Number [facility] [address] [place] [address] [phone] * Magnesium (12/18/2024 10:17 AM EDT) Magnesium 1.9 1.6 - 2.6 mg/dL [facility] Blood Venous blood specimen / Unknown 12/18/2024 10:17 AM EDT 12/18/2024 10:17 AM EDT Rosalind MORELOS LAB BLOOD ORDERABLES Final Res ult [facility] [address] [place] [address] [phone] documented in this encounter Visit Diagnoses [...] of this encounter Care Teams Technical Manager Chemical Plant Relationship Specialty Start Date End Date Rosalind Cardoso FNP [address] [place] [address] PCP - General Family Medicine 04/28/21 Barron Wetzel MD 100 [facility] 200 [place] [address] Nephrology 01/15/25 Madeline Yo [address] [place] [address] 3rd [place] [address] Cardiology 01/15/25 [employer] 01/05/25 documented as of this encounter
--- OUTSIDE RECORDS SUMMARY | 2025-04-05 14:33 | XMS_ITS | Patient Health Record ---
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) Charcot's joint, left ankle and foot (M14.672) Active confirmed Problem Acquired hammer toe of right foot (9730661066747644 ) Hammer toe of right foot (M20.41) Active confirmed Problem Acquired hammer toe of left foot (9173522816043081 ) Hammer toe of left foot (M20.42) Active confirmed Problem Neuropathy (180152250) Neuropathy (G62.9) Active confirmed Problem Polyneuropathy due to type 2 diabetes mellitus (590582481) Type 2 diabetes mellitus with polyneuropathy (E11.42) Active confirmed Plan Of Treatment Pending Test Test Name Order Date X ray : Foot, left 3V 11/28/2021 X ray : Foot, right 3V 11/28/2021 Insurance Providers Payer Name Payer Address Payer Phone Subscriber Number Group Number Insured Name Patient Relationship to Insured Coverage Start Date Coverage End Date [facility] [employer] Claims [address] [place] [id number] [place] Self - patient is the insured Medical (General) History Medical History History ICD Code Anemia Arthritis Back,Hip,and Knee pain Cholesterol Cataracts Diabetic Headaches/Migraines Heart disease High blood pressure Kidney disease Neuropathy Psoriasis/eczema Measles Chicken pox Surgical History Surgery Date(Month/Year) Angeogram D+C 1987 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
--- OUTSIDE RECORDS SUMMARY | 2025-04-05 14:33 | XMS_ITS | Encounter Summary ---
Author Organization [employer] Address [address] [place] [address] 7 [place] [address] Care Team Providers Care Desulphuring Operator Name Role Phone Rosalind Cardoso Primary Care Provider [phone] Barron Wetzel MD Unavailable [phone] Madeline Yo Unavailable Encounter Details Date Type Department Care Team (Late st Contact Info) Description 11/20/2024 Orders Only [facility] CH[facility] MED & PEDS [address] [place], [place] [phone] Rosalind Cardoso FNP [address] [place], [place] [phone] Type 2 diabetes mellitus with stage 3 [...] Description 05/03/2025 11:15 AM EDT Office Visit [facility] MED & PEDS [address] [place] [address] Rosalind Cardoso, TAMY [address] [place] [address] documented as of this encounter Procedures Procedure [...] Blood Count 8.5 4.8 - 10.8 X10*3/uL [facility] Red Blood Count 4.66 4.20 - 5.50 X10*6/uL [facility] Hemoglobin 9.0(L) 12.0 - 16.0 g/dl [facility] Hematocrit 31.0(L) 37.0 - 47.0 % [facility] Mean Corpuscular Volume 66.5(L) 80.0 - 98.0 fL [facility] Mean Corpuscular Hemoglobin 19.3(L) 27.0 - 33.0 pg [facility] Mean Corpuscular HGB Conc 29.0(L) 31.0 - 35.0 g/dl [facility] Red Cell Distribution Width 18.9(H) 11.0 - 16.0 % [facility] Platelet Count 313 160 - 400 X10*3/uL [facility] Mean Platelet Volume 11.7 9.4 - 12.3 fL [facility] Neutrophils Percent Auto 67.0 45 - 73 % [facility] Imm Gran Pct Auto 0.5(H) 0.0 - 0.4 % [facility] Lymphocytes Percent Auto 21.9 20 - 40 % [facility] Monocytes Percent Auto 7.8 2 - 11 % [facility] Eosinophils Percent Auto 2.2 0 - 4 % [facility] Basophils Percent Auto 0.6 0 - 2 % [facility] NRBC Pct Auto 0.9(H) 0.0 - 0.2 /100WBC [facility] Neutrophils Absolute Auto 5.7 2.0 - 8.3 x10*3/uL [facility] Imm Gran Abs Auto 0.04(H) 0.00 - 0.03 X10*3/uL [facility] Lymphocytes Absolute Auto 1.9 1.2 - 4.9 X10*3/uL [facility] Monocytes Absolute Auto 0.7 0.1 - 1.2 X10*3/uL [facility] Eosinophils Absolute Auto 0.2 0.0 - 0.4 X10*3/uL [facility] Basophils Absolute Auto 0.1 0.0 - 0.2 X10*3/uL [facility] NRBC Abs Auto 0.080(H) 0.0 - 0.012 X10*3/uL [facility] Blood Venous blood specimen / Unknown 12/21/2024 2:13 PM EDT 12/21/2024 4:02 PM EDT us Rosalind Cardoso PROJECT BUYER LAB BLOOD ORDERABLES Final Res ult [facility] [address] [place], [place] [phone] * (ABNORMAL) Comprehensive Metabolic Panel (12/18/2024 10:17 AM EDT) Sodium 136 135 - 145 mmol/L [facility] Potassium 3.9 3.3 - 5.1 mmol/L [facility] Chloride 101 96 - 108 mmol/L [facility] Carbon Dioxide 27 22 - 29 mmol/L [facility] Anion Gap 12 12 - 20 [facility] Urea Nitrogen (BUN) 53(H) 9 - 16 mg/dL [facility] Creatinine, Serum 2.24(H) 0.5 - 1.4 mg/dL [facility] Estimated Glomerular Filt Rate 22 [facility] Comment:Chronic Kidney Disea se: Estimated GFR < 60 mL/min/1.50b1Zygrwv Kidney Disease: Estimated GFR < 15 mL/min/1.73m2 Glucose 143(H) 60 - 115 mg/dL [facility] Calcium 9.1 8.4 - 10.2 mg/dL [facility] Bilirubin, Total 0.4 0.0 - 1.0 mg/dL [facility] Aspartate Amino Transferase 32(H) 5 - 31 U/L [facility] Alanine Aminotransferase 22 0 - 31 U/L [facility] Total Protein 6.7 6.5 - 8.0 g/dL [facility] Albumin Level 3.6 3.5 - 5.0 g/dL [facility] Alkaline Phosphatase 122(H) 39 - 117 U/L [facility] Blood Venous blood specimen / Unknown 12/18/2024 10:17 AM EDT 12/18/2024 10:17 AM EDT Rosalind Cardoso PROJECT BUYER LAB BLOOD ORDERABLES Final Res ult Performing Organization Address [facility] Co de Phone Number [facility] [address] [place] [phone] * Prothrombin Time-INR (11/26/2024 9:01 AM EDT) Prothrombin Time 11.1 10.9 - 12.4 SEC [facility] INTERNATIONAL NORM RATIO 1.0 0.9 - 1.1 [facility] Comment:INTERNATIONAL NORMAL IZED RATIO (INR) REFERENCE [...] EDT 11/26/2024 11:04 AM EDT Rosalind Cardoso PROJECT BUYER LAB BLOOD ORDERABLES Final Res ult Performing Organization Address [facility] Co de Phone Number [facility] [address] [place] [phone] * (ABNORMAL) C-reactive Protein (11/26/2024 9:01 AM EDT) C Reactive Protein 1.56(H) < or = 0.50 mg/dL [facility] Blood Venous blood specimen / Unknown 11/26/2024 9:01 AM EDT 11/26/2024 11:04 AM EDT us Rosalind Cardoso PROJECT BUYER LAB BLOOD ORDERABLES Final Res ult Performing Organization Address City/[facility]/ZIP Co de Phone Number [facility] [address] [place] [phone] * (ABNORMAL) Sed Rate by Modified Westergren (11/26/2024 9:01 AM EDT) Erythrocyte Sedimentation Rate 48(H) 0 - 20 MM/HR [facility] Comment:Patients with polycy themia and many hemoglobin abnormalitiesmay have depressed sed rates whereas patients with anemiamay have elevated sed rates. Blood Venous blood specimen / Unknown 11/26/2024 9:01 AM EDT 11/26/2024 11:04 AM EDT Rosalind Cardoso PROJECT BUYER LAB BLOOD ORDERABLES Final Res ult Performing Organization Address [facility]/ZIP Co de Phone Number [facility] [address] [place] [phone] * Magnesium (11/26/2024 9:01 AM EDT) Pathologist [facility] Magnesium 2.2 1.6 - 2.6 mg/dL [facility] Blood Venous blood specimen / Unknown 11/26/2024 9:01 AM EDT 11/26/2024 11:04 AM EDT Rosalind Cardoso [facility] LAB BLOOD ORDERABLES Final Res ult Performing Organization Address [facility]/ZIP Co de Phone Number [facility] [address] [place] [phone] documented in this encounter Visit Diagnoses [...] documented as of this encounter Care Teams Desulphuring Operator Relationship Specialty Start Date End Date Rosalind Cardoso FNP [address] [place] [address] PCP - General Family Medicine 04/28/21 Barron Wetzel MD 100 [facility] [address] [place] [address] Nephrology 01/15/[address] [place] [address] Cardiology 01/15/25 [employer] 01/05/25 documented as of this encounter
--- OUTSIDE RECORDS SUMMARY | 2025-04-05 14:33 | XMS_ITS | Encounter Summary ---
Author Organization [employer] Address [address] [place] [address] 7located [facility] [place] [address] Care Team Providers Care Pulp And Paper Tester Name Role Phone Rosalind Cardoso Primary Care Provider Barron Wetzel MD Unavailable [phone] Madeline Yo Unavailable Reason for Visit * Reason Comments Med Refill Encounter Details Date Type Department Care Team (Late st Contact Info) Description 07/10/2022 Refill [facility] MED & PEDS [address] [place] [address] Rosalind Cardoso FNP [address] [place], [place] [phone] Primary hypertension; Type 2 diabetes mellitus with other specified complication, unspecified whether longitudinal float operator insulin use ([facility]) Social History Tobacco Use Types Packs/Day Years [...] 11:15 AM EDT Office Visit [facility] CH[facility] MED & PEDS [address] [place] [address] Rosalind Cardoso FNP [address] [place] [address] documented as of this encounter Visit Diagnoses Diagnosis Primary hypertension Unspecified essential hypertension Type 2 diabetes mellitus with other specified complication, unspecified whether longterm insulin use (HCC) documented in this encounter Care Teams Pulp And Paper Tester Relationship Specialty Start Date End Date Rosalind Cardoso FNP [address] [place] [address] PCP - General Family Medicine 04/28/21 Barron Wetzel MD [address] [address] Nephrology 01/15/25 Madeline Yo [address] [place] [address] 3rd [place] [address] Cardiology 01/15/25 [facility] [employer] 01/05/25 documented as of this encounter
--- OUTSIDE RECORDS SUMMARY | 2025-04-05 14:33 | XMS_ITS | Encounter Summary ---
Author Organization [employer] Address [address] [place] [address] 7 [place] [address] Care Team Providers Care Director Investor Relations Name Role Phone Rosalind Cardoso Primary Care Provider [phone] Barron Wetzel MD Unavailable [phone] Madeline Yo Unavailable Reason for Visit * Reason Onset Date Comments Appointment Request 10/13/2024 Encounter Details Date Type Department Care Team (Late st Contact Info) Description 10/13/2024 Telephone [facility] MEDICINE [address] [place] [address] Rosalind Cardoso FNP [address] [place], [place] [phone] Appointment Request Social History Tobacco Use Types [...] [facility] MED & PEDS [address] [place] [address] Rosalind Cardoso FNP [address] [place] [address] documented as of this encounter Visit Diagnoses Not on filedocumented in this encounter Additional Health Concerns Assessment Noted Time PHQ-9 Depression Total Score: 6 08/03/19 25 9:07 AM EST documented as of this encounter Care Teams Director Investor Relations Relationship Specialty Start Date End Date Rosalind Cardoso FNP [address] [place] [address] PCP - General Family Medicine 04/28/21 Barron Wetzel MD 100 [facility] [address] [place] [address] Nephrology 01/15/25 Madeline Yo [address] [place] [address] 3rd [place] [address] Cardiology 01/15/25 Differential 01/05/25 documented as of this encounter
--- OUTSIDE RECORDS SUMMARY | 2025-04-05 14:33 | XMS_ITS | Encounter Summary ---
Author Organization [employer] Address [address] [place] [address] 7 [place] [address] Care Team Providers Care Shelver Name Role Phone Rosalind Cardoso Primary Care Provider Barron Wetzel MD Unavailable [phone] Madeline Yo Unavailable Encounter Details Date Type Department Care Team (Late st Contact Info) Description 10/09/2024 Orders Only [facility] CHC MED & PEDS [address] [place], [place] [phone] Rosalind Cadroso FNP [address] [place], [place] [phone] Type 2 diabetes mellitus with stage 3 [...] Visit [facility] MED & PEDS [address] [place] [address] Rosalind Cardoso, TAMY [address] [place] [address] documented as of this encounter Procedures Procedure [...] Primary hypertension Stage 3b chronic kidney disease ([facility]/HCC) History of 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 ([facility]) documented in this encounter Results * (ABNORMAL) Prothrombin Time-INR (12/24/2024 10:18 AM EDT) Prothrombin Time 12.6(H) 10.9 - 12.4 SEC [facility] INTERNATIONAL NORM RATIO 1.1 0.9 - 1.1 [facility] Comment:INTERNATIONAL NORMAL IZED RATIO (INR) [...] EDT 12/24/2024 10:18 AM EDT Rosalind Cardoso [facility] LAB BLOOD ORDERABLES Final Res ult Performing Organization Address [facility] Co de Phone Number [facility] [address] [place] [phone] * (ABNORMAL) C-reactive Protein (12/24/2024 10:18 AM EDT) C Reactive Protein 1.07(H) < or = 0.50 mg/dL [facility] Blood Venous blood specimen / Unknown 12/24/2024 10:18 AM EDT 12/24/2024 10:18 AM EDT Rosalind Hashtrackedna UPHOLSTERY ESTIMATOR LAB BLOOD ORDERABLES Final Res ult Performing Organization Address City/[facility]/ZIP Co de Phone Number [facility] [address] [place] [phone] documented in this encounter Visit Diagnoses [...] documented as of this encounter Care Teams Shelver Relationship Specialty Start Date End Date Rosalind Cardoso FNP [address] [place] [address] PCP - General Family Medicine 04/28/21 Barron Wetzel MD 100 [facility] [address] [place] [address] Nephrology 01/15/25 Madeline Yo [address] [place] [address] [address] [place] [address] Cardiology 01/15/25 [place] 01/05/25 documented as of this encounter
--- OUTSIDE RECORDS SUMMARY | 2025-04-05 14:33 | XMS_ITS | Encounter Summary ---
Author Organization [email or web address] Address [address] [place] [address] 7t [place] [address] Care Team Providers Care Engineering Inspection Assistant Name Role Phone Rosalind Cardoso Primary Care Provider [phone] Barron Wetzel MD Unavailable [phone] Madeline Yo Unavailable Encounter Details Date Type Department Care Team ([facility] st Contact Info) Description 06/25/2023 Telephone [facility] MEDICINE [address] [place] [address] Rosalind Cardoso FNP [address] [place], [place] [phone] Social History Tobacco Use Types Packs/Day Years [...] Description 05/03/2025 11:15 AM EDT Office Visit [facility] MED & PEDS [address] [place] [address] Rosalind Cardoso FNP [address] [place] [address] documented as of this encounter Visit Diagnoses Not on filedocumented in this encounter Additional Health Concerns Assessment Noted Time PHQ-9 Depression Total Score: 0 12/26/19 23 1:09 PM EDT documented as of this encounter Care Teams Engineering Inspection Assistant Relationship Specialty Start Date End Date Rosalind Cardoso FNP [address] [place] [address] PCP - General Family Medicine 04/28/21 Barron Wetzel MD 100 [facility] [address] [place] [address] Nephrology 01/15/25 Madeline Yo [address] 3rd [place] [address] Cardiology 01/15/25 [employer] 01/05/25 documented as of this encounter
--- OUTSIDE RECORDS SUMMARY | 2025-04-05 14:33 | XMS_ITS | Encounter Summary ---
Author Organization [employer] Address [address] [place] [address] 7 [place] [address] Care Team Providers Care Childcare Provider Name Role Phone Rosalind Cardoso Primary Care Provider [phone] Barron Wetzel MD Unavailable [phone] Madeline Yo Unavailable Encounter Details Date Type Department Care Team (Late st Contact Info) Description 10/23/2024 Orders Only [facility] CHC MED & PEDS [address] [place], [place] [phone] Rosalind Cardoso FNP [address] [place], [place] [phone] Type 2 diabetes mellitus with stage 3 [...] [facility] MED & PEDS [address] [place] [address] Rosalind Cardoso, TAMY [address] [place] [address] documented as of this encounter Procedures Procedure [...] Prothrombin Time 12.3 10.9 - 12.4 SEC [facility] INTERNATIONAL NORM RATIO 1.1 0.9 - 1.1 [facility] [...] 12/21/2024 4:02 PM EDT us Rosalind Cardoso LITIGATION DOCKET MANAGER LAB BLOOD ORDERABLES Final Res ult [facility] [address] [place] [phone] * (ABNORMAL) C-reactive Protein (12/21/2024 2:13 PM EDT) Pathologist [facility] C Reactive Protein 1.65(H) < or = 0.50 mg/dL [facility] Blood Venous blood specimen / Unknown 12/21/2024 2:13 PM EDT 12/21/2024 4:02 PM EDT Rosalind Cardoso [facility] LAB BLOOD ORDERABLES Final Res ult Performing Organization Address [facility] de Phone Number [facility] [address] [place] [phone] * Magnesium (12/21/2024 2:13 PM EDT) [facility] Magnesium 1.9 1.6 - 2.6 mg/dL [facility] Blood Venous blood specimen / Unknown 12/21/2024 2:13 PM EDT 12/21/2024 4:02 PM EDT Rosalind Cardoso [facility] LAB BLOOD ORDERABLES Final Res ult Performing Organization Address [facility] de Phone Number [facility] [address] [place] [phone] * (ABNORMAL) Comprehensive Metabolic Panel (11/26/2024 9:01 AM EDT) [facility] Sodium 138 135 - 145 mmol/L [facility] Potassium 3.7 3.3 - 5.1 mmol/L [facility] Chloride 103 96 - 108 mmol/L [facility] Carbon Dioxide 26 22 - 29 mmol/L [facility] Anion Gap 13 12 - 20 [facility] Urea Nitrogen (BUN) 30(H) 9 - 16 mg/dL [facility] Creatinine, Serum 1.80(H) 0.5 - 1.4 mg/dL [facility] Estimated Glomerular Filt Rate 29 [facility] Comment:Chronic Kidney Disea se: Estimated GFR < 60 mL/min/1.15u9Juxmef Kidney Disease: Estimated GFR < 15 mL/min/1.73m2 Glucose 449(HH) 60 - 115 mg/dL [facility] Comment:Critical value for t est(s): GLUR Results called to concepcion back by: FAITH Velasquez Person calling: LEAT Date: 11/26/24Time: 1253 Calcium 9.1 8.4 - 10.2 mg/dL [facility] Bilirubin, Total 0.4 0.0 - 1.0 mg/dL [facility] Aspartate Amino Transferase 22 5 - 31 U/L [facility] Alanine Aminotransferase 19 0 - 31 U/L [facility] Total Protein 6.7 6.5 - 8.0 g/dL [facility] Albumin Level 3.6 3.5 - 5.0 g/dL [facility] Alkaline Phosphatase 117 39 - 117 U/L [facility] Blood Venous blood specimen / Unknown 11/26/2024 9:01 AM EDT 11/26/2024 11:04 AM EDT us Rosalind MORELOS LAB BLOOD ORDERABLES Final Res ult [facility] [address] [place] [phone] documented in this encounter Visit Diagnoses [...] documented as of this encounter Care Teams Childcare Provider Relationship Specialty Start Date End Date Rosalind Cardoso FNP [address] [place] [address] PCP - General Family Medicine 04/28/21 Barron Wetzel MD [address] [facility] 200 [place] [address] Nephrology 01/15/25 Madeline Yo [address] [place] [address] 3rd [place] [address] Cardiology 01/15/25 [employer] 01/05/25 documented as of this encounter
[2025-04-05 16:43] LABS: MANUAL DIFF FLAG NO
[2025-04-05 17:46] LABS: Hematocrit 37.6 % (37.0-47.0); Hemoglobin 11.4 g/dl (12.0-16.0); Imm Gran Abs Auto 0.04 X10*3/uL (0.00-0.03); Imm Gran Pct Auto 0.5 % (0.0-0.4); Lymphocytes Absolute Auto 1.7 X10*3/uL (1.2-4.9); Mean Corpuscular HGB Conc 30.3 g/dl (31.0-35.0); Mean Corpuscular Hemoglobin 18.4 pg (27.0-33.0); Mean Corpuscular Volume 60.8 fL (80.0-98.0); NRBC Abs Auto 0.000 X10*3/uL (0.0-0.012); NRBC Pct Auto 0.0 /100WBC (0.0-0.2); Platelet Count 304 X10*3/uL (160-400); Red Blood Count 6.18 X10*6/uL (4.20-5.50); White Blood Count 8.8 X10*3/uL (4.8-10.8)
[2025-04-05 17:53] LABS: Appearance Urine Clear; Glucose Urine UA 500 mg/dL (Negative); PH 5.5 (5.0-9.0); Specific Gravity - Urine 1.015 (1.005-1.025); UMIC TRIGGER UA YES
[2025-04-05 18:28] LABS: Albumin Level 3.9 g/dL (3.5-5.0); Anion Gap 14 (12-20); Blood Urea Nitrogen 69 mg/dL (9-16); Calcium 9.5 mg/dL (8.4-10.2); Carbon Dioxide 28 mmol/L (22-29); Chloride 100 mmol/L (96-108); Estimated Glomerular Filt Rate 30; Magnesium 2.5 mg/dL (1.6-2.6); Potassium 4.4 mmol/L (3.3-5.1); Sodium 138 mmol/L (135-145)
[2025-04-05 18:41] LABS: Microalbum/Creatinine Ratio Ur 2964.7 ug/mg cr (<30); Protein/Creatinine Ratio, Ur 5.68 (<0.2); Total Protein Urine Random 383 mg/dL (<12)
[2025-04-05 18:41] LABS: Parathyroid Hormone Intact 91.1 pg/mL (8.7-77.1)
== END 2025-04-05 13:12 | disposition home or self-care (01) ==
LOC: HO.LAB 13:11
PROVIDERS: Internal Medicine Nephrology; Absent Provider Internal Medicine Medical Oncology; PCP Registered Nurse; Visit Provider Registered Nurse
DX: E11.22 Type 2 diabetes mellitus with diabetic chronic kidney disease (principal); N18.32 Chronic kidney disease, stage 3b; D63.1 Anemia in chronic kidney disease; N25.0 Renal osteodystrophy
CPT/HCPCS: 36415; 80051; 81001; 82040; 82043; 82306; 82310; 82565; 82570; 83735; 83970; 84100; 84156; 84520; 85025

== ENCOUNTER 2025-04-20 11:49 | Outpatient (REF) | payer OTHER, SELFPAY ==
[2025-04-20 14:18] LABS: Hemoglobin A1C 387.0631 umol/L; Total Hemoglobin (HGBA1C) 2762.2109 umol/L
== END 2025-04-20 11:50 | disposition home or self-care (01) ==
LOC: HO.CHCLDS 11:49
PROVIDERS: PCP Registered Nurse; Visit Provider Internal Medicine
DX: E11.22 Type 2 diabetes mellitus with diabetic chronic kidney disease (principal); N18.30 Chronic kidney disease, stage 3 unspecified; Z79.4 Long term (current) use of insulin
CPT/HCPCS: 36415; 83036

== ENCOUNTER 2025-04-26 11:55 | Outpatient (REF) | payer OTHER, SELFPAY ==
[2025-04-26 12:28] LABS: Hemoglobin 10.0 g/dl (12.0-16.0); NRBC Abs Auto 0.120 X10*3/uL (0.0-0.012); SCAN SMEAR FLAG 1
[2025-04-26 12:30] LABS: Hematocrit 33.8 % (37.0-47.0); Imm Gran Abs Auto 0.05 X10*3/uL (0.00-0.03); Imm Gran Pct Auto 0.5 % (0.0-0.4); Lymphocytes Absolute Auto 2.8 X10*3/uL (1.2-4.9); MANUAL DIFF FLAG SCAN; Mean Corpuscular HGB Conc 29.6 g/dl (31.0-35.0); Mean Corpuscular Hemoglobin 18.5 pg (27.0-33.0); Platelet Count 299 X10*3/uL (160-400); Red Blood Count 5.42 X10*6/uL (4.20-5.50); White Blood Count 10.8 X10*3/uL (4.8-10.8)
[2025-04-26 12:31] LABS: Mean Corpuscular Volume 62.4 fL (80.0-98.0); NRBC Pct Auto 1.1 /100WBC (0.0-0.2); PLT ABN DIST 1
== END 2025-04-26 11:56 | disposition home or self-care (01) ==
LOC: HO.LAB 11:55
PROVIDERS: Internal Medicine Medical Oncology; PCP Registered Nurse; Visit Provider Registered Nurse
DX: D64.9 Anemia, unspecified (principal)
CPT/HCPCS: 36415; 85025

== ENCOUNTER 2025-06-10 10:00 | Inpatient (IN) | payer OTHER, SELFPAY ==
--- OUTSIDE RECORDS SUMMARY | 2025-06-07 11:00 | XMS_ITS | Encounter Summary ---
Author Organization [employer] Address [address] [place] [id number] Care Team Providers Care Purchase Order Checker Name Role Phone Rosalind Cardoso Primary Care Provider [phone] Barron Wetzel MD Unavailable [phone] Madeline Yo Unavailable Reason for Referral * Consultation (Urgent) - Authorized Specialty Diagnoses / Procedures Referred By Anthony t Referred To Contact Wound Care Diagnoses Wound drainage Rosalind Cardoso FNP [address] [place] [address] Phone: tel: fax: [facility] Referral ID Status Reason Start Date Expiration Date Visits Requested Visits Authorized [id number] Authorized Specialty Services Required 06/07/2025 06/07/2026 1 1 * Consultation (Urgent) - Closed Specialty Diagnoses / Procedures Referred By Anthony reyes Referred To Contact Hematology and Oncology Diagnoses Microcytic anemia Beta thalassemia trait Rosalind Cardoso FNP [address] [place] [address] Phone: tel: fax: Abrahan Mattson MD [address] [place] [id number] Phone: tel: Referral ID Status Reason Start Date Expiration Date V isits Requested Visits Authorized [id number] Closed Specialty Services Required 06/07/2025 06/07/2026 1 1 * Consultation (Urgent) - Closed Specialty Diagnoses / Procedures Referred By Anthony reyes Referred To Contact Vascular Surgery Diagnoses Peripheral vascular disease (CMS/HCC) 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) Rosalind Cardoso FNP [address] [place] [address] Phone: tel: fax: Oralia Borden [address] [place], [place] [address] Phone: tel: fax: Referral ID Status Reason Start Date Expiration Date V isits Requested Visits Authorized [id number] Closed Specialty Services Required 06/07/2025 06/07/2026 1 1 * Consultation (Urgent) - Closed Specialty Diagnoses / Procedures Referred By Anthony reyes Referred To Contact Nephrology Diagnoses Stage 3b chronic kidney disease (CMS/HCC) (HCC) Rosalind Cardoso FNP [address] [place] [address] Phone: tel: fax: Barron Wetzel MD [address] [place] [phone] Phone: tel: fax: Referral ID Status Reason Start Date Expiration Date V isits Requested Visits Authorized [id number] Closed Specialty Services Required 06/07/2025 06/07/2026 1 1 * Consultation (Urgent) - Closed Specialty Diagnoses / Procedures Referred By Anthony t Referred To Contact Cardiology Diagnoses Primary hypertension Hypercholesterolemia Supraventricular tachycardia (CMS/HCC) Coronary artery disease involving kaltag coronary artery of kaltag heart, unspecified whether angina present Rosalind Cardoso FNP [address] [place] [address] Phone: tel: fax: Madeline Yo [address] [place] [address] [address] [place] [address] Phone: tel: Referral ID Status Reason Start Date Expiration Date V isits Requested Visits Authorized [id number] Closed Specialty Services Required 06/07/2025 06/07/2026 1 1 Reason for Visit * Reason Comments Leg Swelling fu Encounter Details Date Type Department Care Team (Late st Contact Info) Description 06/07/2025 11:00 AM EST Telemedicine [facility] [address] [place] [address] Rosalind Cardoso FNP [address] [place] [address] Wound drainage (Primary Dx); Primary hypertension; Hypercholesterolemia; Supraventricular tachycardia (CMS/HCC); Coronary artery disease involving k[place]ag coronary artery of k[place]ag heart, unspecified whether angina present; Stage 3b chronic kidney disease (CMS/HCC) (HCC); Peripheral vascular disease (CMS/HCC); 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); Microcytic anemia; Beta thalassemia trait; Chronic congestive heart failure, unspecified heart failure type (HCC); Dietary counseling; Exercise counseling; Type 2 diabetes mellitus with stage 3 chronic kidney disease, with long-term current use of insulin, unspecified whether stage 3a or 3b CKD (HCC) Social History Tobacco Use Types Packs/Day Years [...] as of this encounter Progress Notes * Rosalind Cardoso, TAMY - 06/07/2025 11:00 AM EST Subjective: Mitra Parish is a 60 y.o. female with a history of HTN, T2DM with current insulin therapy, beta thalassemia trait, hypochromic microcytic anemia, hypercholesterolemia, OA of bilateral knees, urinaryincontinence, CKD, fibromyalgia, and left BKA Aug 2022 who presents via telehealth for a sick visit. HPI Last PCP visit: 01/15/25. Continues to follow with multiple specialists. Assessment/plan below updated to reflect most recent available consult notes. 03/21/25: referral to massage therapy placed (referral as well as DME prescription) Current concerns: Patient reports that she has been feeling unwell for the past 4-6 weeks since receiving last Procrit injection. She describes heaviness in legs as well as wound of right lower extremity. No recent BGreadings available. Denies F/C/V/D. Unable to visualize wound d/t lack of video capability. Encouraged pt to proceed to in person UC/ED evaluation, but she reports difficulty doing so with unreliableelevator. Her primary request today is to get updated referrals to her specialists so that she continue care with them. Reports needs updated referrals per insurance. Referrals placed, and again reviewed strict ED precautions. Telehealth: Patient gave verbal consent to be seen in this manner. A complete assessment and plan is detailed in the note, all of which were conducted remotely using virtual technology. Patient identity was verbally confirmed with 2 identifiers at the start of the visit. Patient verbalized being located in the [facility] during the televisit. Provider was located in an Ambulatory examroom/outside the office at a secure location during the visits. Problem List[1] Review of Systems Constitutional: Negative for chills and fever. Gastrointestinal: Negative for diarrhea and vomiting. Musculoskeletal: Positive for gait problem. Skin: Positive for wound. Psychiatric/Behavioral: Negative for suicidal ideas. Physical Exam Neurological: Mental Status: She is oriented to person, place, and time. Psychiatric: Mood and Affect: Mood normal. Behavior: Behavior normal. Comments: No PE - Televisit Problem List Items Addressed This Visit Cardiac and Vasculature Primary hypertension - Primary Overview Following with [facility] - Dr. Middleton/CHANDU Yo. September 2022: CTA coronary arteries demonstrated 70% [...] (DC by renal 2/2 lower extremity edema) Relevant Orders Referral to Cardiology Hypercholesterolemia Overview Continues with atorvastatin 80mg nightly Continues with [...] LDLCHOLCAL 216 (H) 09/10/2023 -continue lifestyle modification Relevant Orders Referral to Cardiology Peripheral vascular disease ([facility]) Overview -s/p Angioplasty, by Dr. Vigil in 10/2021 -Plavix DC Apr 2022, continues on lifelong aspirin -Currently followed by Dr. Borden -09/25/23: US duplex venous right ordered by Dr. Borden - no evidence of a deep venous thrombosis involving the right lower extremity. Lincoln cyst. Relevant Orders Referral to Vascular Surgery Supraventricular tachycardia ([facility]) Overview -Noted incidentally during hospital admission 05/12-05/17/22 -Cont Metoprolol succ 100mg daily -Following with [facility] [employer] [facility] Relevant Orders Referral to Cardiology Coronary artery disease Overview September 2022: CTA coronary arteries demonstrated 70% stenosis of the mid LAD between the 2nd and 3rd diagonal, RCA dominant with mid 50-60% stenosis. Recommended cardiac cath, although pt deferred. Med management: high-dose statin, Zetia, and aspirin Pt in agreement with cardiac cath as of Feb 2025 Relevant Orders Referral to Cardiology CHF (congestive heart failure) ([facility]) Overview Following with [employer] [facility] - per consult note 02/2025 - Echocardiogram completed 01/26/2025 demonstrated EF 25% with inferior wall motion abnormality, grade 2 diastolic dysfunction. Current Assessment & Plan - continue following with specialist Endocrine and Metabolic Type 2 diabetes mellitus with diabetic chronic kidney disease ([facility]) Overview Lab Results Component Value Date HGBA1C >14.0 (H) 04/20/2025 HGBA1C 13.5 (A) 11/26/2024 HGBA1C 14.8 (A) 08/03/2024 HGBA1C 10.5 (A) 10/02/2023 HGBA1C 8.2 (H) 09/26/2022 HGBA1C 11.3 (H) 08/22/2021 -Previously followed by [facility], currently following with [facility] -Cont current medication regimen Lantus 45 units at bedtime Mounjaro 2.5mg subcutaneous weekly -Movement/exercise as tolerated Previous medications: DC by renal 12/30 d/t worsening eGFR) -(DC 09/01 d/t cardiac hx) Avoid SGLT2 inhibitors given hx of BKA Current Assessment & Plan - Continue following with [facility] - Unclear how consistent she is with insulin and Mounjaro usage - Reviewed ED precautions Genitourinary and Reproductive Stage 3b chronic kidney disease ([facility]/HCC) ([facility]) Overview Followed by Nephrology - Dr. Wetzel/LESLYE Williamson 11/20/23: US renal doppler ordered LESLYE Williamson. Impression: 1. No evidence to suggest renal artery stenosis. 2. Mildly echogenic kidneys with normal volume consistent with diagnosis of medical renal disease. Lab Results Component Value Date CREATININE 1.71 (H) 04/05/2025 CREATININE 1.90 (H) 02/26/2025 CREATININE 1.82 (H) 12/24/2024 CREATININE 1.86 (H) 12/24/2024 CREATININE 0.88 06/04/2022 CREATININE 1.05 05/29/2022 CREATININE 1.03 05/18/2022 Current Assessment & Plan Followed by Dr. 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 Borden 09/01/22 at [facility] -Indication: gangrene and ulcers of the left foot, charcot foot, and OM Relevant Orders Referral to Vascular Surgery Other Visit Diagnoses Wound drainage - Pt describes wound of right lower extremity, Unable to visualize due to lack of video capability.Stressed in person eval, pt refuses AMA. Refer to Wound Care Relevant Orders Referral to Wound Clinic Dietary counseling Exercise counseling Follow up in about 3 months (around 09/05/2025) for Extended (30mins), Chronic Conditions. Current Outpatient Medications Medication Sig Dispense Refill Acetaminophen Extra Strength 500 MG tablet TAKE 1 TO 2 TABLETS BY MOUTH EVERY 8 HOURS NEEDED (for pain) 100 tablet 3 albuterol 108 (90 Base) MCG/ACT inhaler Inhale 2 puffs every 6 (six) hours if needed for wheezing or shortness of breath. 18 g 11 Alcohol Swabs (SM Alcohol Prep) 70 % pads TEST BLOOD SUGAR THREE TIMES DAILY 100 each 11 amitriptyline (Elavil) 25 MG tablet TAKE 1 TABLET BY MOUTH AT BEDTIME 90 tablet 1 aspirin (Aspirin Adult Low Strength) 81 MG EC tablet Take 1 tablet (81 mg) by mouth Once daily. 90 tablet 3 atorvastatin (Lipitor) 80 MG tablet TAKE 1 TABLET BY MOUTH AT BEDTIME 90 tablet 3 Blood Glucose Monitoring Suppl kit Use to check Blood glucose values three times dailyUse to check Blood glucose values three times daily 1 kit 1 Blood Pressure kit Use to check blood pressure daily and when symptomatic. 1 kit 0 chlorthalidone (Hygroton) 25 MG tablet Take 1 tablet (25 mg) by mouth in the morning. 90 tablet 3 cholecalciferol (Vitamin D-3) 25 MCG (1000 UT) tablet Take 1 tablet (25 mcg) by mouth Once daily. 90 tablet 3 clotrimazole (Lotrimin) 1 % cream APPLY TOPICALLY TWICE DAILY FOR 28 DAYS 30 g 3 Embecta Pen Needle Ultrafine 31G X 5 MM misc USE THREE TIMES DAILY DIRECTED 100 each 3 ezetimibe (Zetia) 10 MG tablet Take 1 tablet (10 mg) by mouth in the morning. 90 tablet 3 folic acid (Folvite) 1 MG tablet Take 1 tablet (1 mg) by mouth Once daily. 90 tablet 0 FreeStyle lancets 1 each by Other route 3 times daily. Use as instructed 100 each 11 furosemide (Lasix) 40 MG tablet Take 2 tablets by mouth Once per day. glucose blood (Upmann'such Verio) test strip USE DIRECTED TO TEST BLOOD SUGAR THREE TIMES DAILY 100strip 11 insulin glargine (Lantus SoloStar) 100 UNIT/ML pen INJECT 45 UNITS SUBCUTANEOUSLY ONCE DAILY DIRECTED 15 mL 0 isosorbide mononitrate ER (Imdur) 60 MG 24 hr tablet lidocaine (Lidoderm) 5 % patch APPLY 1 PATCH TOPICALLY TO SKIN, LEAVE ON FOR 12 HOURS AND OFF FOR 12 HOURS DIRECTED 30 patch 11 lidocaine-prilocaine (Emla) 2.5-2.5 % cream APPLY TO THE AFFECTED AREA(S) ONCE DAILY NEEDED FOR PAIN 30 g 11 lisinopril 10 MG tablet Take 1 tablet (10 mg) by mouth Once per day. 30 tablet 3 magnesium oxide (Mag-Ox) 400 MG tablet TAKE 1 TABLET BY MOUTH THREE TIMES DAILY 270 tablet 1 metoprolol succinate XL (Toprol XL) 100 MG 24 hr tablet Take 1 tablet (100 mg) by mouth Once per day. Do not crush or chew. 90 tablet 3 Nutritional Supplements (Glucerna Shake) liquid Supplement meals with one glucerna drink daily as needed - Vanilla Glucerna pantoprazole (ProtoNix) 40 MG EC tablet Take 1 tablet (40 mg) by mouth Once daily. 90 tablet 3 Tirzepatide (Mounjaro) 2.5 MG/0.5ML solution auto-injector Inject 2.5 mg under the skin 1 (one) time per week. 2 mL 0 Tirzepatide (Mounjaro) 5 MG/0.5ML solution auto-injector Inject 5 mg under the skin 1 (one) time per week. 2 mL 2 No current facility-administered medications for this visit. [1] Patient Active Problem List Diagnosis Primary hypertension Beta thalassemia trait Stage 3b chronic kidney disease (CMS/HCC) ([facility]) Hypercholesterolemia Irritable bowel syndrome Microcytic anemia Osteoarthritis of both knees Peripheral vascular disease (CMS/HCC) Second degree uterine prolapse Type 2 diabetes mellitus with diabetic chronic kidney disease ([facility]) Urinary incontinence Routine health maintenance Generalized abdominal pain Supraventricular tachycardia (CMS/HCC) History of amputation of left leg through tibia and fibula ([facility]) Facial pain Proteinuria Fibromyalgia Cervicalgia Screening for colorectal cancer Encounter for screening mammogram for malignant neoplasm of breast At high risk for osteoporosis Coronary artery disease CHF (congestive heart failure) ([facility]) documented in this encounter Miscellaneous Notes * Assessment & Plan Note - TAMY Ram - 06/08/2025 6:02 PM ESTAssociated Problem(s): Type 2 diabetes mellitus with diabetic chronic kidney disease (HCC) - Continue following with [facility] - Unclear how consistent she is with insulin and Mounjaro usage - Reviewed ED precautions * Assessment & Plan Note - TAMY Ram - 06/08/2025 6:00 PM ESTAssociated Problem(s): Stage 3b chronic kidney disease (CMS/HCC) ([facility]) Followed by Dr. Wetzel Per last available consult note 03/2025: significant risk of progression to ESRD given heavy urine proteins * Assessment & Plan Note - TAMY Ram - 06/08/2025 5:58 PM ESTAssociated Problem(s): CHF (congestive heart failure) ([facility]) - continue following with specialist documented in this encounter Plan of Treatment Upcoming Encounters Date Type Department Care Team (Late st Contact Info) Description 06/16/2025 10:00 AM EST Telemedicine [facility] [address] [place] [address] Amira Ayoub PharmD [address] [place], [place] [id number] Scheduled Referrals Name Type Priority Associated Diagnoses Orde r Schedule Referral to Cardiology Outpatient Referral Urgent Primary hypertension Hypercholesterolemia Supraventricular tachycardia (CMS/HCC) Coronary artery disease involving kaltag coronary artery of k[place]ag heart, unspecified whether angina present Expected: 06/07/2025 (Approximate), Expires: 06/07/2026 Referral to Nephrology Outpatient Referral Urgent Stage 3b chronic kidney disease (CMS/HCC) (HCC) Expected: 06/07/2025 (Approximate), Expires: 06/07/2026 Referral to Vascular Surgery Outpatient Referral Urgent Peripheral vascular disease (CMS/HCC) 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) Expected: 06/07/2025 (Approximate), Expires: 06/07/2026 Referral to Hematology / Oncology Outpatient Referral Urgent Microcytic anemia Beta thalassemia trait Expected: 06/07/2025 (Approximate), Expires: 06/07/2026 Referral to Wound Clinic Outpatient Referral Urgent Wound drainage Expected: 06/07/2025 (Approximate), Expires: 06/07/2026 documented as of this encounter Goals Goal Patient Goal Type Associated Problems Recent Progress Patient-Stated? Author Help patients manage their type 2 diabetes Care Plan Help patients manage their type 2 diabetes No Amira Ayoub, PharmD Weekly blood pressure task Care Plan Weekly blood pressure task No Amira Ayoub, PharmD Help patients manage their type 2 diabetes Care Plan Help patients manage their type 2 diabetes No Amira Ayoub, PharmD Patient has chronic kidney disease Care Plan Patient has chronic kidney disease No Amira Ayoub PharmD Weekly blood pressure task Care Plan Weekly blood pressure task No Amira Ayoub PharmD Patient has chronic kidney disease Care Plan Patient has chronic kidney disease No Amira Ayoub PharmD Weekly blood pressure task Care Plan Weekly blood pressure task No Alize Ge MD Weekly blood pressure task Care Plan Weekly blood pressure task No Alize Ge MD Patient has chronic kidney disease Care Plan Patient has chronic kidney disease No Alize Ge MD Patient has chronic kidney disease Care Plan Patient has chronic kidney disease No Alize Ge MD Weekly blood pressure task Care Plan Weekly blood pressure task No Real Hutchinson Weekly blood pressure task Care Plan Weekly blood pressure task No Real Hutchinson Patient has chronic kidney disease Care Plan Patient has chronic kidney disease No Real Hutchinson Patient has chronic kidney disease Care Plan Patient has chronic kidney disease No Real Hutchinson Weekly blood pressure task Care Plan Weekly blood pressure task No Jaiden Monte Weekly blood pressure task Care Plan Weekly blood pressure task No Lavell Jaiden Patient has chronic kidney disease Care Plan Patient has chronic kidney disease No Lavell Jaiden Patient has chronic kidney disease Care Plan Patient has chronic kidney disease No Lavell Jaiden Weekly blood pressure task Care Plan Weekly blood pressure task No Rosalind Cardoso DIRECTOR TEEN POST Weekly blood pressure task Care Plan Weekly blood pressure task No Janae Rosalind DIRECTOR TEEN POST Patient has chronic kidney disease Care Plan Patient has chronic kidney disease No Rosalind Cardoso, DIRECTOR TEEN POST Patient has chronic kidney disease Care Plan Patient has chronic kidney disease No Janae Rosalind, DIRECTOR TEEN POST documented as of this encounter Visit Diagnoses Diagnosis Wound drainage- Primary Primary hypertension Unspecified essential hypertension Hypercholesterolemia Pure hypercholesterolemia Supraventricular tachycardia (CMS/HCC) Other specified cardiac dysrhythmias Coronary artery disease involving k[place] coronary artery of kaltag heart, unspecified whether angina present Stage 3b chronic kidney disease (CMS/HCC) ([facility]) Peripheral vascular disease (CMS/[facility]) Unspecified peripheral vascular disease History of amputation of left leg through tibia and fibula ([facility]) Microcytic anemia Unspecified iron deficiency anemia Beta thalassemia trait Other thalassemia Chronic congestive heart failure, unspecified heart failure type ([facility]) Dietary counseling Dietary surveillance and counseling Exercise counseling Type 2 diabetes mellitus with stage 3 chronic kidney disease, with long-term current use of insulin, unspecified whether stage 3a or 3b CKD (HCC) documented in this encounter Additional Health Concerns Active Problems Noted Date Diagnosed Date Help patients manage their type 2 diabetes 05/20 Weekly blood pressure task 05/20/2025 Help patients manage their type 2 diabetes 05/20 Patient has chronic kidney disease 05/20/2025 Weekly blood pressure task 05/20/2025 Patient has chronic kidney disease 05/20/2025 Weekly blood pressure task 05/20/2025 Weekly blood pressure task 05/20/2025 Patient has chronic kidney disease 05/20/2025 Patient has chronic kidney disease 05/20/2025 Weekly blood pressure task 05/31/2025 Weekly blood pressure task 05/31/2025 Patient has chronic kidney disease 05/31/2025 Patient has chronic kidney disease 05/31/2025 Weekly blood pressure task 06/02/2025 Weekly blood pressure task 06/02/2025 Patient has chronic kidney disease 06/02/2025 Patient has chronic kidney disease 06/02/2025 Weekly blood pressure task 06/05/2025 Weekly blood pressure task 06/05/2025 Patient has chronic kidney disease 06/05/2025 Patient has chronic kidney disease 06/05/2025 Assessment Noted Time PHQ-9 Depression Total Score: 6 08/03/19 9:07 AM EST documented as of this encounter Care Teams Purchase Order Checker Relationship Specialty Start Date End Date Rosalind Cardoso FNP [address] [place] [address] PCP - General Family Medicine 04/28/21 Barron Wetzel MD [address] [phone] Nephrology 01/15/25 Madeline Yo [address] [address] Cardiology 01/15/25 [email or web address] 01/05/25 documented as of this encounter
--- NOTE | ~2025-06-10 | CT_ITS ---
EXAMINATION: CT CHEST WITHOUT CONTRAST CLINICAL INFORMATION: Shortness of breath, chest pain COMPARISON: January 21, 2022 TECHNIQUE: Multidetector volumetric CT imaging of the chest was done. Axial MIP volume rendering provided. Sagittal and coronal reformatted images were obtained. This CT examination was performed using dose optimization techniques as appropriate, variously including the following: *Automated exposure control *Adjustment of mA and/or kV according to patient size (this includes techniques or standardized protocols for targeted exams where dose is matched to indication/reason for exam; i.e. extremities or head) *Use of iterative reconstruction technique FINDINGS: LUNGS: Subtle diffuse groundglass density is diffuse. Pulmonary vessels are mildly prominent. Linear atelectasis is present in the lower portion of the left upper lobe and in the dependent left lower lobe. MEDIASTINUM: There is cardiomegaly. Minimal pericardial effusion is noted. CORONARY ARTERY CALCIFICATION: Present PLEURA: Small layering pleural effusions are present bilaterally, right greater than left. AXILLA: No lymphadenopathy. There is reticulation of the subcutaneous soft tissues consistent with edema. UPPER ABDOMEN: See ABD/PEL CT. OSSEOUS STRUCTURES: Unremarkable. CT/CT chest wo IV con IMPRESSION: Layering pleural effusions, mildly prominent pulmonary vascularity, cardiomegaly, and diffuse groundglass densities raise question of mild pulmonary edema versus atypical/viral pneumonitis. Trace pericardial effusion. Fleischner guidelines were followed. Electronically signed by: Bello Duncan MD 06/10/2025 04:19 PM [facility]
--- NOTE | ~2025-06-10 | CT_ITS ---
EXAMINATION: CT ABDOMEN PELVIS WITHOUT IV CONTRAST HISTORY: pain, ? hernia COMPARISON: Comparison is made with the prior examination dated 06/10/2025. TECHNIQUE: CT scan of the abdomen and pelvis was performed without contrast using standard departmental protocol. Coronal and sagittal reformatted images were generated and reviewed. Oral contrast material was not administered at the request of the referring physician. This CT exam was performed with one or more of the following dose reduction techniques: automated exposure control, adjustment of the mA and/or kV according to patient size, use of iterative reconstruction technique. DLP: 584 mGy-cm FINDINGS: LOWER CHEST: The visualized lung bases are clear. There are small bilateral pleural effusions which have decreased in size since the prior study. CARDIOVASCULATURE: The heart remains enlarged. There is no pericardial effusion. LIVER: The liver is normal in size and contour. The liver has an unremarkable unenhanced appearance. GALLBLADDER / BILE DUCTS: There is cholelithiasis. There is no intra or extrahepatic biliary ductal dilatation. SPLEEN: The spleen is normal in size and has an unremarkable unenhanced appearance. PANCREAS: The pancreas has an unremarkable unenhanced appearance. ADRENAL GLANDS: Again seen is nodularity of the adrenal glands, likely representing adenomas. KIDNEYS/RETROPERITONEUM: No renal calculi are identified. There is no hydronephrosis. LYMPH NODES: No retroperitoneal lymphadenopathy is identified in the abdomen or pelvis. VASCULATURE: The abdominal aorta demonstrates atherosclerotic calcification, but is normal in caliber. MESENTERY/PERITONEUM: No free fluid. No masses. There is no free intraperitoneal gas. STOMACH: There is a moderate amount of debris in the stomach. SMALL BOWEL: The small bowel is normal in caliber. COLON: The colon is unremarkable. APPENDIX: Normal. URINARY BLADDER/PELVIC ORGANS: The urinary bladder is unremarkable. The uterus has an unremarkable unenhanced appearance. BONES / SOFT TISSUES: Diffuse body wall edema has improved. There is a tiny umbilical hernia containing fat. There is no hiatal hernia, inguinal hernia, or additional ventral hernia. The bones are intact. CT/CT abdomen pelvis wo IV con IMPRESSION: 1. Tiny fat-containing umbilical hernia. No additional hernia is identified. 2. Interval decrease in size of small bilateral pleural effusions. 3. Cholelithiasis. Electronically signed by: Nate Duke MD 06/16/2025 11:14 AM EST
--- NOTE | ~2025-06-10 | CT_ITS ---
EXAMINATION: CT ABDOMEN AND PELVIS WITHOUT CONTRAST CLINICAL INFORMATION: Periumbilical pain, Left sided abd pain COMPARISON: 08/15/2022 TECHNIQUE: Multidetector volumetric imaging was performed from the superior aspect of the liver through the pubic symphysis. Sagittal and coronal reformatted images were obtained on the technologist's workstation. This CT examination was performed using dose optimization techniques as appropriate, variously including the following: *Automated exposure control *Adjustment of mA and/or kV according to patient size (this includes techniques or standardized protocols for targeted exams where dose is matched to indication/reason for exam; i.e. extremities or head) *Use of iterative reconstruction technique FINDINGS: LUNG BASES: Small layering pleural effusions are present bilaterally. See same day Chest CT LIVER, GALLBLADDER, AND BILIARY TREE: The liver is normal in size, shape, and attenuation. No focal hepatic lesion or biliary ductal dilatation is present. There is a partially calcified stone in the gallbladder. Unchanged. There is high density in the gallbladder, likely from vicarious excretion of contrast. PANCREAS: Unremarkable. SPLEEN: Unremarkable. ADRENAL GLANDS: There is globular enlargement of the left adrenal gland which measure in Hounsfield units on prior noncontrast CT chest May 12, 2022. There is mild thickening of the right adrenal gland, also similar to the prior. KIDNEYS AND URETERS: No stones or hydronephrosis. BLADDER: Unremarkable. GASTROINTESTINAL TRACT: The small and large bowel are unremarkable aside from scattered pseudodiverticula through the colon.. The appendix is unremarkable. ABDOMINAL WALL: There is increased density with fat stranding in the subcutaneous soft tissues consistent with edema LYMPH NODES: Bilateral inguinal lymph nodes are increased in size compared to the prior. Size is at the upper limits of normal. VASCULAR: Moderate arthritic ossification is present PELVIC VISCERA: Uterus and adnexa are unremarkable. OSSEOUS STRUCTURES: Facet sclerosis and osteophytes are present at L4-5 and L5-S1. CT/CT abdomen pelvis wo IV con IMPRESSION: Superficial soft tissue edema. Reactive inguinal lymph nodes. Diverticulosis without sign of infection. Cholelithiasis. Suspected vicarious excretion of contrast into the gallbladder. Has the patient recently had iodinated iv contrast? Fleischner guidelines were followed. Electronically signed by: Bello Duncan MD 06/10/2025 04:30 PM [facility]
[2025-06-10 10:23] VITALS: BP 96/56; PULSE 90; RESP 16; TEMP 37; O2SAT 96; BMI 32.9
--- NOTE | 2025-06-10 10:45 | ED_ITS ---
HPI - General Adult General Chief complaint: General Medical Stated complaint: BLOOD BLISTERS HANDS/FEET,?INF AMPUTATION LLE Time Seen by Provider: 06/10/25 10:45 Source: RN notes reviewed Mode of arrival: ambulatory Limitations: no limitations History of Present Illness ED Provider: Jojo Tovar PA-C HPI narrative: This is a 60-year-old female, with a past medical history of microcytic anemia, thalassemia trait, CKD, CHF, PID, fibromyalgia, diabetes, PID, cardiomyopathy, hyperlipidemia, diabetes, [id number] amputation on the left, who presents emergency department for evaluation of multiple complaints. Patient reports that she is on chronic Procrit injections, last dose was on April 26. The same day of her injection she had developed bilateral leg edema, and feels as though she has needles in her lower extremities. She reports that she has had severe lower abdominal pain radiating up beneath her breasts, describing it as a palpable knot in her lower abdomen and sensation that the areas on fire and may ?explode?. She also reports marked swelling, heaviness, and fluctuating engorgement of both of her breasts. She states that she normally is flat chested. She also reports diffuse paresthesias throughout her hands, chest, legs. She states that she has no strength in her legs anymore. She states that she is unable to get up, and previously could stand on her right leg, unable to bear weight due to the pain and weakness. She states that since then she has had progressive, body pain, generalized weakness since after that dose.She also reports intermittent shortness of breath, which requires her to turn off her apartment heat and opening up a window to breathe while awaiting for EMS. She also endorses some chest tightness. She denies any fevers, chills, urinary or bowel symptoms. No other complaints or concerns at this time. MD complaint: Multiple complaints Relieving factors: none Exacerbating factors: none Associated symptoms: chest pain and shortness of breath Related Data Home Medications ?Medication ?Instructions ?Recorded ?Confirmed cholecalciferol (vitamin D3) 25 1 tab PO DAILY 1 02/22/25 mcg (1,000 unit) tablet blood sugar diagnostic (FreeStyle #10 ea 09/18/2109/06 Lite Strips) lancets 33 gauge (TRUEplus Lancets) #100 ea 09/18/21 0 02/22/25 pen needle, diabetic 31 gauge x #1,200 ea 09/18/2111/20 (UltiCare Pen Needle) insulin glargine 100 unit/mL (3 45 unit subcut DAILY 0 08/15/22 02/22/25 mL) subcutaneous pen (Lantus Solostar U-100 Insulin) magnesium oxide 400 mg (241.3 mg 400 mg PO TID 3 02/22/25 magnesium) tablet clotrimazole 1 % topical cream 1 appl topical BID 09/0602/22/25 lidocaine 5 % topical patch 1 patch topical DAILY 09/0602/22/25 metoprolol succinate 100 mg 100 mg PO DAILY 02/22/25 0 02/22/25 tablet,extended release 24 hr acetaminophen 500 mg tablet 500 - 1,000 mg PO Q8H PRN pain 06/10/25 albuterol sulfate 90 mcg/actuation 2 puff inhalation Q 6H PRN 06/10/25 aerosol inhaler Shortness Of Breath Or Wheez ing amitriptyline 25 mg tablet 25 mg PO BEDTIME 06/10/25 chlorthalidone 25 mg tablet 25 mg PO QAM 06/10/25 pantoprazole 40 mg tablet,delayed 40 mg PO DAILY 06/10 release tirzepatide 2.5 mg/0.5 mL 2.5 mg subcut QWEEK 06/10/25 subcutaneous pen injector (Greta) Previous Rx's ?Medication ?Instructions ?Recorded aspirin 81 mg tablet,delayed 81 mg PO DAILY #90 tabs 0 01/21/24 release atorvastatin 80 mg tablet 80 mg PO BEDTIME #90 tabs ezetimibe 10 mg tablet 10 mg PO DAILY #90 tabs 01/05 12/29 lisinopril 10 mg tablet 10 mg PO DAILY #90 tabs 01/29 amlodipine 10 mg tablet 10 mg PO DAILY #90 tabs 12/06 09/29 folic acid 1 mg tablet 1 mg PO DAILY #90 tabs 01/21 furosemide 40 mg tablet 80 mg (2 x 40 mg) PO DAILY # 180 04/23/25 tabs isosorbide mononitrate 60 mg 60 mg PO DAILY #90 tabs 1 tablet,extended release 24 hr Allergies Allergy/AdvReac Type Severity Reaction Status Date / Time No Known Allergies Allergy Verified 06/10/25 10:28 Review of Systems 2 Review of Systems: Constitutional : No Fever, No Chills ENT/Mouth : No sore throat, No Rhinorrhea Eyes: No Eye Pain, No Swelling, No Redness Cardiovascular : + Chest Pain, No SOB Respiratory : No Cough, No Sputum Gastrointestinal : No Nausea, No Vomiting, No Diarrhea, No abdominal Pain Genitourinary : No Dysuria, No Hematuria Musculoskeletal : No joint pain, No Myalgias, No Joint Swelling Skin : No Skin Lesions Neuro : No Weakness, No Numbness, No Headache All other systems reviewed and are negative Yes all other systems are reviewed and are negative Constitutional: Constitutional: Reports as per HPI [facility] Past Medical History Medical History PAD (peripheral artery disease) Below-knee amputation of left lower extremity with complication Essential hypertension Obesity Chronic ulcer of right foot Peripheral vascular disease Anemia in chronic kidney disease (CKD) Acid reflux Osteomyelitis Leukocytosis Microcytic hypochromic anemia Irritable bowel syndrome Rectal prolapse Prolapsed uterus Carpal tunnel syndrome Peripheral neuropathy Retinopathy Osteoporosis Degenerative joint disease of spine Toe ulcer due to DM Hypertension Arthritis Surgical History S/P below knee amputation H/O dilation and curettage Family History Family History Maternal Grandmother Diabetes Maternal Grandfather Heart disease Cancer of unknown origin Mother HTN (hypertension) Paternal Uncle Thalassemia Social History Social History Household Members: Children Household Members Other:: 4 Housing: Apartment Are you a primary personal care assistant to a significant other at home: No Do you presently have visiting nurse or other home services: No Alcohol intake: never Comment: pt refusing red socks and bed alarm Patient Tobacco Use Status: Never used Tobacco Smoked in Last 30 Days: No Second Hand Smoke Exposure: No Use of substances other than those prescribed or required for medical reasons: No Advance Directives: Yes Advance Directives on File: Yes Advance Directives Date on File: 06/10/25 Patient : No service: No Current occupational status: disabled Physical Exam ED Vital Signs: Vital Signs - 24 hr 06/10/25 10:23 06/10/25 13:53 06/10/25 14:20 Temperature 98.6 F Pulse Rate 90 96 Respiratory Rate 16 20 Blood Pressure 96/56 L 154/76 H 154/76 H Pulse Oximetry 96 96 Oxygen Delivery Method Room Air Room Air 06/10/25 14:43 Temperature Pulse Rate Respiratory Rate Blood Pressure 163/70 H Pulse Oximetry Oxygen Delivery Method BMI result Body Mass Index 32.9 Const General: cooperative, comfortable and no acute distress Orientation/consciousness: patient oriented x3 Limitations: no limitations HENMT Head: Yes normal to inspection, Yes normocephalic and Yes atraumatic Ears: hearing grossly normal bilaterally General nose exam: Normal external nose present Face and sinus: Yes normal facial exam Mouth: Normal oral and palatal mucosa present, oropharynx normal and moist mucous membranes Throat: Yes posterior oropharynx normal Eyes General: appearance normal, both eyes and all related structures Eyelids: Yes eyelids normal Conjunctivae: conjunctivae normal Sclerae: sclerae normal Pupils: Equal, round and reactive pupils present EOM: EOMs intact bilaterally Neck Neck: Yes normal visual inspection, Yes full ROM and Yes no lymphadenopathy Lymphatic: no lymphadenopathy noted Chest Other: Bilateral breasts appear with pitting edema noted, no nipple discharge, no overlying erythema Chest palpation & inspection: normal inspection of the chest Resp Effort & Inspection: normal respiratory effort and able to speak in complete sentences Auscultation: clear to auscultation bilaterally, no crackles, no rales, no rhonchi and no wheezes Cardio Rate: regular rate Rhythm: regular rhythm Heart sounds: S1 normal heart sound present and S2 normal heart sound present GI Other: Abdomen soft however with tenderness palpation throughout, edema noted. Inspection: Yes normal to inspection Skin Other: Bilateral hands are dry, with superficial excoriations noted throughout. No surrounding erythema. General skin exam: no rashes or lesions noted Trauma: no lacerations or abrasions Wounds: no wounds Neuro General: patient oriented x3 and moves all extremities Cranial nerves: Yes Equal, round and reactive pupils present Extrem Other: Left BKA noted, healed surgical incision. No surrounding erythema, drainage, or warmth. 1+ pitting edema noted. Tender to palpation. Right lower extremity with 1+ pitting edema noted. DP PT pulses palpated, faint. General: Yes normal to inspection Right upper extremity: normal to inspection Left upper extremity: normal to inspection Right lower extremity: normal to inspection Left lower extremity: normal to inspection Medications Administered Discontinued Medications Generic Name Dose Route Start Last Admin Trade Name Tiffany PRN Reason Stop Dose Admin Furosemide 80 mg 06/10/25 14:03 06/10/25 14:20 Furosemide 100 Mg/10 Ml Vial IVPUSH 06/10/25 14:04 80 mg ONCE ONE Administration Protocol Medical Decision Making Medical Decision Making [facility] Narrative: This is a 60-year-old female, with a past medical history of microcytic anemia, thalassemia trait, CKD, CHF, PID, fibromyalgia, diabetes, PID, cardiomyopathy, CHF, hyperlipidemia, diabetes, [id number] amputation on the left, who presents emergency department for evaluation of multiple complaints. On arrival, patient is alert and oriented, chronically ill-appearing however does not appear to be under any acute distress. Blood pressure low at 96/56, all other vital signs within normal limits. Patient with multiple complaints which patient attributes to her last Procrit injection in April. Patient appears to be edematous throughout her body including bilateral breasts, abdomen, and bilateral lower extremities. Differential diagnoses include anasarca, CHF. Also considering electrolyte derangement, pulmonary edema. I discussed this case with my attending physician, Dr. Downey. He came and assessed patient, bedside ultrasound was performed. There is no pericardial effusion noted on the ultrasound per MD, however does show mild pleural effusion on the right. Cardiomegaly also appreciated on ultrasound. Patient had an echocardiogram on 01/26/2025 which revealed EF of 25%. Patient appears to be volume overloaded, therefore treated with IV Lasix 80 mg IV. Given shortness for breath as well as abdominal pain, CT abdomen and pelvis was ordered. Labs reveal slight leukocytosis at 11.3, infection is not suspected. Chemistry revealing elevated creatinine at 2.1 with a BUN of 56, this appears to be similar to previous. She does have a history of CKD therefore this is chronic for her. Troponin elevated at 22, repeat 24.5. Urine with trace protein, trace blood, 1+ bacteria, however this does appear to be contaminated with 6-10 squamous epithelial cells. 4:57 PM 06/10/2025 (Jojo Tovar PA-C): CT chest revealing layering of pleural effusions, mildly prominent pulmonary vascularity, cardiomegaly, and diffuse ground-glass densities. Adjuvant reveals superficial soft tissue edema, reactive inguinal lymph nodes, diverticulosis without signs of infection, and cholelithiasis. There is also suspected vicarious excretion of contrast into the gallbladder, I discussed with patient, she has not had any IV contrast recently. Unclear what the etiology of this is. She has no abdominal pain in the right upper quadrant therefore gallbladder etiology is less likely. [place] [id number], and evidence of anasarca, patient needs to be admitted for aggressive IV diuretics, and comprehensive echocardiogram/cardiology workup. Patient is agreeable for admission. Spoke to hospitalist, Dr. Blas Denson who requested cardiology consultation. I discussed this with Dr. Dale IV diuresis. Repeat EKG does not appear to be atrial fibrillation. Transfer of care initiated. Differential Diagnosis Differential Diagnoses: The differential diagnosis associated with the presentation includes Anasarca, CHF exacerbation, pneumonia, CKD, ACS Admission/Observation Consideration of admission/observation: Escalation of care including admission/observation considered Consult Healthcare Provider Management of the patient was discussed with: Laundry Assistant Dr. Dale Lab Data [facility] Lab Attestation statement: I reviewed the patient's lab results. See MDM 06/10/25 12:14 06/10/25 12:14 Labs: Lab Results 06/10/25 06/10/25 06/10/25 Range/Units 12:14 12:42 14:41 WBC 11.3 H (4.8-10.8) X10*3/uL RBC 6.16 H (4.20-5.50) X10*6/uL Hgb 11.9 L (12.0-16.0) g/dl Hct 39.3 (37.0-47.0) % MCV 63.8 L (80.0-98.0) fL MCH 19.3 L (27.0-33.0) pg MCHC 30.3 L (31.0-35.0) g/dl RDW 19.9 H (11.0-16.0) % Plt Count 355 (160-400) X10*3/uL MPV 10.2 (9.4-12.3) fL Immature Gran % (Auto) 0.4 (0.0-0.4) % Neut % (Auto) 75.8 H (45-73) % Lymph % (Auto) 10.8 L (20-40) % [place] % (Auto) 10.6 (2-11) % Eos % (Auto) 1.9 (0-4) % Baso % (Auto) 0.5 (0-2) % Lymph # (Auto) 1.2 (1.2-4.9) X10*3/uL [place] # (Auto) 1.2 (0.1-1.2) X10*3/uL Eos # (Auto) 0.2 (0.0-0.4) X10*3/uL Baso # (Auto) 0.1 (0.0-0.2) X10*3/uL Abs Immat Gran (auto) 0.04 H (0.00-0.03) X10*3/uL Absolute Neuts (auto) 8.5 H (2.0-8.3) x10*3/uL Absolute Nucleated RBC 0.040 H (0.0-0.012) X10*3/uL Nucleated RBC % (auto) 0.4 H (0.0-0.2) /100WBC Sodium 136 (135-145) mmol/L Potassium 4.8 (3.3-5.1) mmol/L Chloride 107 (96-108) mmol/L Carbon Dioxide 20 L (22-29) mmol/L Anion Gap 14 (12-20) BUN 56 H (9-16) mg/dL Creatinine 2.12 H (0.5-1.4) mg/dL Estim Creat Clear Calc 27.2 Estimated GFR 24 Random Glucose 184 H (60-115) mg/dL Calcium 8.8 D (8.4-10.2) mg/dL Magnesium 2.3 (1.6-2.6) mg/dL Total Bilirubin 0.6 (0.0-1.0) mg/dL Direct Bilirubin 0.4 (0.0-0.5) mg/dL AST 66 H (5-31) U/L ALT 37 H (0-31) U/L Alkaline Phosphatase 147 H (39-117) U/L Troponin I High Sens 22.2 H D 24.5 H (<3.5-17.0) ng/L NT-Pro-B Natriuret Pep 75891.5 H (<300) pg/mL Total Protein 6.4 L (6.5-8.0) g/dL Albumin 3.2 L (3.5-5.0) g/dL Lipase 34 (8-78) U/L Urine Color Yellow Urine Appearance Clear Urine pH 5.0 (5.0-9.0) Ur Specific [place] 1.015 (1.005-1.025) Urine Protein 300 (3+) H (Neg-Trace) mg/dL Urine Glucose (UA) Negative (Negative) mg/dL Urine Ketones Trace (Negative) mg/dL Urine Blood Trace H (Negative) Urine Nitrite Negative (Negative) Ur Leukocyte Esterase Negative (Negative) Urine RBC 0-2 (0-2) /HPF Urine WBC 0-5 (0-5) /HPF Ur Squamous Epith Cells 6-10 (0-2) /HPF Urine Bacteria 1+ (None Seen) Hyaline Casts 0-2 (0-2) /LPF Influenza Type A (PCR) NEGATIVE (Negative) Influenza Type B (PCR) NEGATIVE (Negative) RSV RNA Qual (PCR) NEGATIVE (Negative) SARS-CoV-2 RNA (RT-PCR) NEGATIVE (Negative) Independent Interpretation I performed an independent interpretation of an: EKG Interpretation: EKG at 1203 revealing jumbled isometric line, read as atrial fibrillation however I believes that the P-waves are buried, patient shaky on EKG. We will get repeat and serial troponins. Patient does have inverted T-waves seen in V4 through V6 as well as leads 2 and 3 Repeat EKG performed at 5:24 p.m. revealing normal sinus rhythm at a ventricular rate of 85 beats per minute, NJ interval 140, QT QTC 380/452. Inverted T-waves seen will be 5 through V6. Also seen in leads 2 and 3, seen as previous. Radiology Impression Discussion of test interpretation with radiology: I have reviewed the radiologist's reading. Radiologist Impression: TECHNIQUE: Multidetector volumetric CT imaging of the chest was done. Axial MIP volume rendering provided. Sagittal and coronal reformatted images were obtained. This CT examination was performed using dose optimization techniques as appropriate, variously including the following: *Automated exposure control *Adjustment of mA and/or kV according to patient size (this includes techniques or standardized protocols for targeted exams where dose is matched to indication/reason for exam; i.e. extremities or head) *Use of iterative reconstruction technique FINDINGS: LUNGS: Subtle diffuse groundglass density is diffuse. Pulmonary vessels are mildly prominent. Linear atelectasis is present in the lower portion of the left upper lobe and in the dependent left lower lobe. MEDIASTINUM: There is cardiomegaly. Minimal pericardial effusion is noted. CORONARY ARTERY CALCIFICATION: Present PLEURA: Small layering pleural effusions are present bilaterally, right greater than left. AXILLA: No lymphadenopathy. There is reticulation of the subcutaneous soft tissues consistent with edema. UPPER ABDOMEN: See ABD/PEL CT. OSSEOUS STRUCTURES: Unremarkable. CT/CT chest wo IV con IMPRESSION: Layering pleural effusions, mildly prominent pulmonary vascularity, cardiomegaly, and diffuse groundglass densities raise question of mild pulmonary edema versus atypical/viral pneumonitis. Trace pericardial effusion. Fleischner guidelines were followed. Electronically signed by: Bello Duncan MD 06/10/2025 04:19 PM [facility] [place]ictated By: Bello Duncan MD COMPARISON: 08/15/2022 TECHNIQUE: Multidetector volumetric imaging was performed from the superior aspect of the liver through the pubic symphysis. Sagittal and coronal reformatted images were obtained on the technologist's workstation. This CT examination was performed using dose optimization techniques as appropriate, variously including the following: *Automated exposure control *Adjustment of mA and/or kV according to patient size (this includes techniques or standardized protocols for targeted exams where dose is matched to indication/reason for exam; i.e. extremities or head) *Use of iterative reconstruction technique FINDINGS: LUNG BASES: Small layering pleural effusions are present bilaterally. See same day Chest CT LIVER, GALLBLADDER, AND BILIARY TREE: The liver is normal in size, shape, and attenuation. No focal hepatic lesion or biliary ductal dilatation is present. There is a partially calcified stone in the gallbladder. Unchanged. There is high density in the gallbladder, likely from vicarious excretion of contrast. PANCREAS: Unremarkable. SPLEEN: Unremarkable. ADRENAL GLANDS: There is globular enlargement of the left adrenal gland which measure in Hounsfield units on prior noncontrast CT chest May 12, 2022. There is mild thickening of the right adrenal gland, also similar to the prior. KIDNEYS AND URETERS: No stones or hydronephrosis. BLADDER: Unremarkable. GASTROINTESTINAL TRACT: The small and large bowel are unremarkable aside from scattered pseudodiverticula through the colon.. The appendix is unremarkable. ABDOMINAL WALL: There is increased density with fat stranding in the subcutaneous soft tissues consistent with edema LYMPH NODES: Bilateral inguinal lymph nodes are increased in size compared to the prior. Size is at the upper limits of normal. VASCULAR: Moderate arthritic ossification is present PELVIC VISCERA: Uterus and adnexa are unremarkable. OSSEOUS STRUCTURES: Facet sclerosis and osteophytes are present at L4-5 and L5-S1. CT/CT abdomen pelvis wo IV con IMPRESSION: Superficial soft tissue edema. Reactive inguinal lymph nodes. Diverticulosis without sign of infection. Cholelithiasis. Suspected vicarious excretion of contrast into the gallbladder. Has the patient recently had iodinated iv contrast? Fleischner guidelines were followed. Electronically signed by: Bello Duncan MD 06/10/2025 04:30 PM [facility] [place] Dictated By: Bello Duncan MD Critical Care Time Critical Care Time Critical Care Time: Yes Total Critical Care Time: 50 Attestation: I have personally provided critical care time exclusive of time spent on separately billable procedures. Time includes review of lab data, radiology results, discussion with consultants, and monitoring for potential decompensation. Intervention performed as documented. Discharge Plan Discharge Clinical Impression: Cardiomegaly, Anasarca, CKD (chronic kidney disease) Patient Disposition: Admitted As Inpatient Print Language: Mexican
--- NOTE | 2025-06-10 11:39 | ECG_ITS ---
Test Reason : cp Blood Pressure : */* mmHG Vent. Rate : 90 BPM Atrial Rate : * BPM P-R Int : * ms QRS Dur : 90 ms QT Int : 366 ms P-R-T Axes : * 90 265 degrees QTcB Int : 447 ms Atrial fibrillation Rightward axis ST & T wave abnormality, consider inferolateral ischemia Abnormal ECG When compared with ECG of 15-Aug-2022 16:10, Atrial fibrillation has replaced Sinus rhythm T wave inversion now evident in Inferior leads T wave inversion now evident in Lateral leads Referred By: Jojo Tovar Electronically Signed By: PHILOMENA SUAREZ
--- NOTE | 2025-06-10 12:18 | MHC.EDTECH ---
Nasal swab/labs drawn/sent
[2025-06-10 12:20] LABS: MANUAL DIFF FLAG NO
[2025-06-10 12:23] LABS: Hematocrit 39.3 % (37.0-47.0); Hemoglobin 11.9 g/dl (12.0-16.0); Imm Gran Abs Auto 0.04 X10*3/uL (0.00-0.03); Imm Gran Pct Auto 0.4 % (0.0-0.4); Lymphocytes Absolute Auto 1.2 X10*3/uL (1.2-4.9); Mean Corpuscular HGB Conc 30.3 g/dl (31.0-35.0); Mean Corpuscular Hemoglobin 19.3 pg (27.0-33.0); Mean Corpuscular Volume 63.8 fL (80.0-98.0); NRBC Abs Auto 0.040 X10*3/uL (0.0-0.012); NRBC Pct Auto 0.4 /100WBC (0.0-0.2); Platelet Count 355 X10*3/uL (160-400); Red Blood Count 6.16 X10*6/uL (4.20-5.50); White Blood Count 11.3 X10*3/uL (4.8-10.8)
[2025-06-10 12:35] LABS: Alanine Aminotransferase 37 U/L (0-31); Albumin Level 3.2 g/dL (3.5-5.0); Alkaline Phosphatase 147 U/L (39-117); Anion Gap 14 (12-20); Aspartate Amino Transferase 66 U/L (5-31); Blood Urea Nitrogen 56 mg/dL (9-16); Calcium 8.8 mg/dL (8.4-10.2); Carbon Dioxide 20 mmol/L (22-29); Chloride 107 mmol/L (96-108); Creatinine Clr Calc Pharmacy 27.2; Estimated Glomerular Filt Rate 24; Lipase 34 U/L (8-78); Magnesium 2.3 mg/dL (1.6-2.6); Potassium 4.8 mmol/L (3.3-5.1); Sodium 136 mmol/L (135-145); Total Protein 6.4 g/dL (6.5-8.0)
[2025-06-10 12:41] LABS: Troponin-I High Sensitivity 22.2 ng/L (<3.5-17.0)
[2025-06-10 12:52] LABS: Appearance Urine Clear; Glucose Urine UA Negative (Negative); PH 5.0 (5.0-9.0); Specific Gravity - Urine 1.015 (1.005-1.025); UMIC TRIGGER UACC YES
[2025-06-10 12:57] LABS: Resp Syncy Virus RNA Qual PCR NEGATIVE (Negative); SARS COV2 PCR INHOUSE NEGATIVE (Negative)
--- OUTSIDE RECORDS SUMMARY | 2025-06-10 13:34 | XMS_ITS | Encounter Summary ---
Author Organization [employer] Address [address] [place] [address] [address] [place] [address] Care Team Providers Care Air Traffic Control Supervisor Name Role Phone Rosalind Cardoso Primary Care Provider [phone] Barron Wetzel MD Unavailable [phone] Madeline Yo Unavailable Encounter Details Date Type Department Care Team (Late st Contact Info) Description 08/21/2024 Orders Only [facility] MEDICINE [address] [place] [address] Rosalind Cardoso FNP [address] [place], [place] [id number] Type 2 diabetes mellitus with stage 3 [...] the past 12 months, has t he [employer], gas, oil or water company threatened to [...] Info) Description 06/16/2025 10:00 AM EST Telemedicine [facility] [address] [place] [address] Amira Ayoub PharmD [address] [place] [address] documented as of this encounter Visit Diagnoses [...] as of this encounter Care Teams Air Traffic Control Supervisor Relationship Specialty Start Date End Date Rosalind Cardoso FNP [address] [place] [address] PCP - General Family Medicine 04/28/21 Barron Wetzel MD [address] [id number] Nephrology 01/15/25 Madeline Yo [address] [place] [address] 3[address] [place] [address] Cardiology 01/15/25 [employer] 01/05/25 documented as of this encounter
--- OUTSIDE RECORDS SUMMARY | 2025-06-10 13:34 | XMS_ITS | Encounter Summary ---
Author Organization [employer] Address [address] [place] [address] 7 [place] [address] Care Team Providers Care Director Of Environmental Services Name Role Phone Rosalind Cardoso Primary Care Provider [phone] Barron Wetzel MD Unavailable [phone] Madeline Yo Unavailable Encounter Details Date Type Department Care Team (Late st Contact Info) Description 07/03/2024 Orders Only [facility] MED & PEDS [address] [place], [place] [phone] Rosalind Cardoso FNP 505 [place], [place] [phone] Type 2 diabetes mellitus with stage 3 [...] Info) Description 06/16/2025 10:00 AM EST Telemedicine [facility] MED & PEDS [address] [place] [address] Amira Ayoub, PharmD 230 [place] [address] documented as of this encounter Procedures Procedure [...] Prothrombin Time 10.7(L) 10.9 - 12.4 SEC [facility] INTERNATIONAL NORM RATIO 0.9 0.9 - 1.1 [facility] Comment:INTERNATIONAL NORMAL IZED RATIO (INR) [...] EST 07/07/2024 10:24 AM EST Rosalind Cardoso MANAGER MEDICAL AFFAIRS LAB BLOOD ORDERABLES Final Res ult Performing Organization Address City/[facility]/ZIP Co de Phone Number [facility] [address] [place] [phone] * (ABNORMAL) C-reactive Protein (07/07/2024 10:24 AM EST) C Reactive Protein 1.00(H) < or = 0.50 mg/dL [facility] Blood Venous blood specimen / Unknown 07/07/2024 10:24 AM EST 07/07/2024 10:24 AM EST Rosalind Cardoso MANAGER MEDICAL AFFAIRS LAB BLOOD ORDERABLES Final Res ult Performing Organization Address [facility] Co de Phone Number [facility] [address] [place] [phone] * (ABNORMAL) Sed Rate by Modified Westergren (07/07/2024 10:24 AM EST) Erythrocyte Sedimentation Rate 34(H) 0 - 20 MM/HR [facility] Comment:Patients with polycy themia and many hemoglobin abnormalitiesmay have depressed sed rates whereas patients with anemiamay have elevated sed rates. Blood Venous blood specimen / Unknown 07/07/2024 10:24 AM EST 07/07/2024 10:24 AM EST Rosalind Cardoso MANAGER MEDICAL AFFAIRS LAB BLOOD ORDERABLES Final Res ult Performing Organization Address City/[facility]/ZIP Co de Phone Number [facility] [address] [place] [address] [phone] * Magnesium (07/07/2024 10:24 AM EST) Magnesium 1.8 1.6 - 2.6 mg/dL [facility] Blood Venous blood specimen / Unknown 07/07/2024 10:24 AM EST 07/07/2024 10:24 AM EST us Rosalind Cardoso MANAGER MEDICAL AFFAIRS LAB BLOOD ORDERABLES Final Res ult [facility] [address] [place] [address] [phone] * (ABNORMAL) Comprehensive Metabolic Panel (07/07/2024 10:24 AM EST) Sodium 135 135 - 145 mmol/L [facility] Potassium 3.7 3.3 - 5.1 mmol/L [facility] Chloride 102 96 - 108 mmol/L [facility] Carbon Dioxide 25 22 - 29 mmol/L [facility] Anion Gap 12 12 - 20 [facility] Urea Nitrogen (BUN) 47(H) 9 - 16 mg/dL [facility] Creatinine, Serum 1.54(H) 0.5 - 1.4 mg/dL [facility] Estimated Glomerular Filt Rate 34 [facility] Comment:Chronic Kidney Disea se: Estimated GFR < 60 mL/min/1.62d0Hsszqp Kidney Disease: Estimated GFR < 15 mL/min/1.73m2 Glucose 400(HH) 60 - 115 mg/dL [facility] Comment:Critical value for G RADHA: Results called to and read backby: KAYLEE Gallegos Person calling: OLESYA Date: 07/07/24 Time:1102 Calcium 9.6 8.4 - 10.2 mg/dL [facility] Bilirubin, Total 0.2 0.0 - 1.0 mg/dL [facility] Aspartate Amino Transferase 17 5 - 31 U/L [facility] Alanine Aminotransferase 9 0 - 31 U/L [facility] Total Protein 7.3 6.5 - 8.0 g/dL [facility] Albumin Level 3.5 3.5 - 5.0 g/dL [facility] Alkaline Phosphatase 109 39 - 117 U/L [facility] Blood Venous blood specimen / Unknown 07/07/2024 10:24 AM EST 07/07/2024 10:24 AM EST us Rosalind MORELOS LAB BLOOD ORDERABLES Final Res ult [facility] [address] [place] [address] [phone] documented in this encounter Visit Diagnoses [...] of this encounter Care Teams Director Of Environmental Services Relationship Specialty Start Date End Date Rosalind Cardoso FNP [address] [place] [address] PCP - General Family Medicine 04/28/21 Barron Wetzel MD [address] [address] Nephrology 01/15/25 Madeline Yo [address] [place] [address] 3rd [place] [address] Cardiology 01/15/25 [employer] 01/05/25 documented as of this encounter
--- OUTSIDE RECORDS SUMMARY | 2025-06-10 13:34 | XMS_ITS | Encounter Summary ---
Author Organization [employer] Address [address] [place] [address] 7 [place] [address] Care Team Providers Care Welder Production Line Arc Name Role Phone Rosalind Cardoso Primary Care Provider [phone] Barron Wetzel MD Unavailable [phone] Madeline Yo Unavailable Encounter Details Date Type Department Care Team ([facility] st Contact Info) Description 05/14/2025 Orders Only [facility] CH[facility] MED & PEDS [address] [place], [place] [phone] Rosalind Cardoso FNP 505 [place], [place] [phone] Microcytic anemia Social History Tobacco Use Types Packs/Day Years [...] Info) Description 06/16/2025 10:00 AM EST Telemedicine [facility] MED & PEDS 505 [place] [address] Amira Ayoub PharmD 230 [place] [address] documented as of this encounter Visit Diagnoses Diagnosis Microcytic anemia Unspecified iron deficiency anemia documented in this encounter Additional Health Concerns Assessment Noted Time PHQ-9 Depression Total Score: 6 08/03/19 25 9:07 AM EST documented as of this encounter Care Teams Welder Production Line Arc Relationship Specialty Start Date End Date Rosalind Cardoso FNP 230 [place] [address] PCP - General Family Medicine 04/28/21 Barron Wetzel MD 100 [facility] 200 [place] [address] Nephrology 01/15/25 Madeline Yo [address] 3rd [place] [address] Cardiology 01/15/25 [employer] 01/05/25 documented as of this encounter
--- OUTSIDE RECORDS SUMMARY | 2025-06-10 13:34 | XMS_ITS | Encounter Summary ---
Author Organization [employer] Address [address] [place] [address] 7 [place] [address] Care Team Providers Care Forwarder Operator Name Role Phone Rosalind Cardoso Primary Care Provider [phone] Barron Wetzel MD Unavailable [phone] Madeline Yo Unavailable Encounter Details Date Type Department Care Team (Late st Contact Info) Description 08/07/2024 Orders Only [facility] MEDICINE [address] [place] [address] Rosalind Cardoso FNP [address] [place], [place] [phone] Type 2 diabetes mellitus with stage 3 [...] the past 12 months, has t he [employer], gas, oil or water [employer] threatened to shut off services in your [...] Info) Description 06/16/2025 10:00 AM EST Telemedicine [facility] CHC MED & PEDS 505 [place] [address] Amira Ayoub, PharmD 230 [place] [address] documented as of this encounter Procedures Procedure Name Priority Date/Time Associated Diagnosis Comments PROTHROMBIN TIME-INR Routine 10/02/2024 3:12 PM EDT Type 2 diabetes mellitus with stage 3 chronic kidney disease, with long-term current use of insulin, unspecified whether stage 3a or 3b CKD ([facility]) Myalgia documented in this encounter Results * (ABNORMAL) Prothrombin Time-INR (10/02/2024 3:12 PM EDT) Prothrombin Time 10.5(L) 10.9 - 12.4 [facility] [...] Final Res ult [facility] [address] [place] [phone] documented in this encounter Visit Diagnoses [...] documented as of this encounter Care Teams Forwarder Operator Relationship Specialty Start Date End Date Rosalind Cardoso FNP 230 [place] [address] PCP - General Family Medicine 04/28/21 Barron Wetzel MD 100 [facility] 200 [place] [address] Nephrology 01/15/25 Madeline Yo [address] [facility] [address] 3rd [place] [address] Cardiology 01/15/25 [employer] 01/05/25 documented as of this encounter
--- OUTSIDE RECORDS SUMMARY | 2025-06-10 13:34 | XMS_ITS | Encounter Summary ---
Author Organization [employer] Address [address] [place] [address] 7 [place] [address] Care Team Providers Care Picking Table Worker Name Role Phone Rosalind Cardoso Primary Care Provider [phone] Barron Wetzel MD Unavailable Madeline Yo Unavailable Encounter Details Date Type Department Care Team ([facility] Contact Info) Description 04/30/2025 Orders Only [facility] CHC MED & PEDS 505 [place], [place] [phone] Rosalind Cardoso FNP 505 [place], [place] [phone] Microcytic anemia Social History Tobacco Use Types [...] Info) Description 06/16/2025 10:00 AM EST Telemedicine [facility] MED & PEDS 505 [place] [address] Amira Ayoub PharmD 230 [place] [address] documented as of this encounter Visit Diagnoses Diagnosis Microcytic anemia Unspecified iron deficiency anemia documented in this encounter Additional Health Concerns Assessment Noted Time PHQ-9 Depression Total Score: 6 08/03/19 25 9:07 AM EST documented as of this encounter Care Teams Picking Table Worker Relationship Specialty Start Date End Date Rosalind Cardoso FNP 230 [place] [address] PCP - General Family Medicine 04/28/21 Barron Wetzel MD 100 [facility] 200 [place] [address] Nephrology 01/15/25 Madeline Yo [address] 3rd [place] [address] Cardiology 01/15/25 [employer] 01/05/25 documented as of this encounter
--- OUTSIDE RECORDS SUMMARY | 2025-06-10 13:34 | XMS_ITS | Encounter Summary ---
Author Organization [employer] Address [address] [place] [address] 7 [place] [address] Care Team Providers Care Water Carter Name Role Phone Rosalind Cardoso Primary Care Provider [phone] Barron Wetzel MD Unavailable [phone] Madeline Yo Unavailable Encounter Details Date Type Department Care Team (Late st Contact Info) Description 08/14/2024 Orders Only [facility] CHC MED & PEDS 505 [place], [place] [phone] Rosalind Cardoso FNP 505 [place], [place] [phone] Type 2 diabetes mellitus with stage 3 [...] Info) Description 06/16/2025 10:00 AM EST Telemedicine [facility] CHC MED & PEDS [address] [place] [address] Amira Ayoub, ChristopherD 230 [place] [address] documented as of this encounter Visit Diagnoses [...] documented as of this encounter Care Teams Water Carter Relationship Specialty Start Date End Date Rosalind Cardoso FNP 230 [place], [place] [phone] PCP - General Family Medicine 04/28/21 Barron Wetzel MD 100 [facility] 200 [place] [address] Nephrology 01/15/25 Madeline Yo [address] [place] [address] Drive 3rd [place] [address] Cardiology 01/15/25 [employer] 01/05/25 documented as of this encounter
--- OUTSIDE RECORDS SUMMARY | 2025-06-10 13:34 | XMS_ITS | Encounter Summary ---
Author Organization [employer] Address [address] [place] [address] 7 [place] [address] Care Team Providers Care Industrial Real Estate Agent Name Role Phone Rosalind Cardoso Primary Care Provider [phone] Barron Wetzel MD Unavailable [phone] Madeline Yo Unavailable Encounter Details Date Type Department Care Team (Late st Contact Info) Description 08/28/2024 Orders Only [facility] CHC MED & PEDS 505 [place], [place] [phone] Rosalind Cardoso FNP [address] [place], [place] [phone] Type 2 diabetes mellitus with stage 3 [...] Info) Description 06/16/2025 10:00 AM EST Telemedicine [facility] CHC MED & PEDS [address] [place] [address] Amira Ayoub, ChristopherD 230 [place] [address] documented as of this encounter Visit Diagnoses [...] as of this encounter Care Teams Industrial Real Estate Agent Relationship Specialty Start Date End Date Rosalind Cardoso FNP 230 [place], [place] [phone] PCP - General Family Medicine 04/28/21 Barron Wetzel MD 100 [facility] 200 [place] [address] Nephrology 01/15/25 Madeline Yo [address] [place] [address] Drive 3rd [place] [address] Cardiology 01/15/25 [employer] 01/05/25 documented as of this encounter
--- OUTSIDE RECORDS SUMMARY | 2025-06-10 13:34 | XMS_ITS | Encounter Summary ---
Author Organization [employer] Address [address] [place] [address] 7 [place] [address] Care Team Providers Care Bench Technician Name Role Phone Rosalind Cardoso Primary Care Provider [phone] Barron Wetzel MD Unavailable [phone] Madeline Yo Unavailable Encounter Details Date Type Department Care Team (Late st Contact Info) Description 06/19/2024 Orders Only [facility] CHC MED & PEDS 505 [place], [place] [phone] Rosalind Cardoso FNP 505 [place], [place] [phone] Type 2 diabetes mellitus with stage 3 [...] Info) Description 06/16/2025 10:00 AM EST Telemedicine [facility] CHC MED & PEDS 505 [place] [address] Amira Ayoub, PharmD 230 [place] [address] documented as of this encounter Procedures Procedure [...] unspecified whether stage 3a or 3b CKD ([facility]) Primary hypertension Stage 3b chronic kidney disease ([facility]) 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 ([facility]) documented in this encounter Results * Prothrombin Time-INR (06/23/2024 10:31 AM EST) Prothrombin Time 11.3 10.9 - 12.4 SEC [facility] INTERNATIONAL NORM RATIO 1.0 0.9 - 1.1 [facility] Comment:INTERNATIONAL NORMAL IZED RATIO (INR) [...] 06/23/2024 10:31 AM EST us Rosalind Cardoso [facility] BLOOD ORDERABLES Final Res ult [facility] [address] [place] [phone] * (ABNORMAL) Sed Rate by Modified Westergren (06/23/2024 10:31 AM EST) Erythrocyte Sedimentation Rate 38(H) 0 - 20 MM/HR [facility] Comment:Patients with polycy themia and many hemoglobin abnormalitiesmay have depressed sed rates whereas patients with anemiamay have elevated sed rates. Blood Venous blood specimen / Unknown 06/23/2024 10:31 AM EST 06/23/2024 10:31 AM EST us Rosalind Cardoso TOY STU[employer] LAB BLOOD ORDERABLES Final Res ult [facility] [address] [place] [address] [phone] * (ABNORMAL) Comprehensive Metabolic Panel (06/23/2024 10:31 AM EST) Sodium 134(L) 135 - 145 mmol/L [facility] Potassium 4.1 3.3 - 5.1 mmol/L [facility] Chloride 97 96 - 108 mmol/L [facility] Carbon Dioxide 27 22 - 29 mmol/L [facility] Anion Gap 14 12 - 20 [facility] Urea Nitrogen (BUN) 45(H) 9 - 16 mg/dL [facility] Creatinine, Serum 1.91(H) 0.5 - 1.4 mg/dL [facility] Estimated Glomerular Filt Rate 27 [facility] Comment:Chronic Kidney Disea se: Estimated GFR < 60 mL/min/1.17r5Ofyonh Kidney Disease: Estimated GFR < 15 mL/min/1.73m2 Glucose 287(H) 60 - 115 mg/dL [facility] Calcium 9.1 8.4 - 10.2 mg/dL [facility] Bilirubin, Total 0.3 0.0 - 1.0 mg/dL [facility] Aspartate Amino Transferase 19 5 - 31 U/L [facility] Alanine Aminotransferase 11 0 - 31 U/L [facility] Total Protein 7.4 6.5 - 8.0 g/dL [facility] Albumin Level 3.6 3.5 - 5.0 g/dL [facility] Alkaline Phosphatase 99 39 - 117 U/L [facility] Blood Venous blood specimen / Unknown 06/23/2024 10:31 AM EST 06/23/2024 10:31 AM EST us Rosalind Cardoso TOY STUFFER LAB BLOOD ORDERABLES Final Res ult [facility] [address] [place] [address] [phone] documented in this encounter Visit Diagnoses [...] documented as of this encounter Care Teams Bench Technician Relationship Specialty Start Date End Date Rosalind Cardoso FNP 230 [place] [address] PCP - General Family Medicine 04/28/21 Barron Wetzel MD 100 [facility] 200 [place] [address] Nephrology 01/15/25 Madeline Yo [address] [place] [address] Drive 3rd [place] [address] Cardiology 01/15/25 [employer] 01/05/25 documented as of this encounter
--- OUTSIDE RECORDS SUMMARY | 2025-06-10 13:35 | XMS_ITS | Encounter Summary ---
Author Organization [employer] Address [address] [place] [address] 7 [place] [address] Care Team Providers Care Truck Loader And Unloader Name Role Phone Rosalind Cardoso Primary Care Provider [phone] Barron Wetzel MD Unavailable [phone] Madeline Yo Unavailable Encounter Details Date Type Department Care Team (Late st Contact Info) Description 10/18/2023 Orders Only [facility] [address] [place] [address] Rosalind Cardoso FNP [address] [place], [place] [phone] Type 2 diabetes mellitus with stage 3 [...] Info) Description 06/16/2025 10:00 AM EST Telemedicine [facility] MED & PEDS 505 [place] [address] Amira Ayoub, PharmD 230 [place] [address] documented as of this encounter Procedures Procedure [...] stage 3a or 3b CKD ([facility]) Myalgia documented in this encounter Results * (ABNORMAL) C-reactive Protein (10/25/2023 1:09 PM EDT) Pathologist [facility] C Reactive Protein 1.49(H) < or = 0.50 mg/dL [facility] Blood Venous blood specimen / Unknown 10/25/2023 1:09 PM EDT 10/25/2023 1:09 PM EDT Rosalind Cardoso [facility] BLOOD ORDERABLES Final Res ult Performing Organization Address [facility]/ZIP Co de Phone Number [facility] [address] [place] [address] [phone] * Magnesium (10/25/2023 1:09 PM EDT) Pathologist [facility] Magnesium 2.1 1.6 - 2.6 mg/dL [facility] Blood Venous blood specimen / Unknown 10/25/2023 1:09 PM EDT 10/25/2023 1:09 PM EDT Rosalind Cardoso [facility] BLOOD ORDERABLES Final Res ult Performing Organization Address [facility]/ZIP Co de Phone Number [facility] [address] [place] [phone] * (ABNORMAL) Comprehensive Metabolic Panel (10/25/2023 1:09 PM EDT) Pathologist [facility] Sodium 143 135 - 145 mmol/L [facility] [...] 1.210.Chronic Kidney Disease: Estimated GFR < 60 mL/min/1.04d2Zcgztv Kidney Disease: Estimated GFR < 15 mL/min/1.73m2 [...] 10/25/2023 1:09 PM EDT us Rosalind Cardoso STEAM ROOM ATTENDANT LAB BLOOD ORDERABLES Final Res ult [facility] [address] [place] [phone] * (ABNORMAL) CBC auto differential [...] MORELOS LAB BLOOD ORDERABLES Final Res ult [facility] [address] [place] [address] [phone] documented in this encounter Visit Diagnoses [...] as of this encounter Care Teams Truck Loader And Unloader Relationship Specialty Start Date End Date Rosalind Cardoso FNP [address] [place] [address] PCP - General Family Medicine 04/28/21 Barron Wetzel MD 100 [facility] 200 [place] [address] Nephrology 01/15/25 Madeline Yo [address] [place] [address] Drive 3rd [place] [address] Cardiology 01/15/25 [employer] 01/05/25 documented as of this encounter
--- OUTSIDE RECORDS SUMMARY | 2025-06-10 13:35 | XMS_ITS | Encounter Summary ---
Author Organization [employer] Address [address] [place] [address] 7t [place] [address] Care Team Providers Care Nutritional Health Coach Name Role Phone Rosalind Cardoso Primary Care Provider [phone] Barron Wetzel MD Unavailable [phone] Madeline Yo Unavailable Encounter Details Date Type Department Care Team (Late st Contact Info) Description 09/18/2023 Telephone [facility] MEDICINE 230 [place] [address] Rosalind Cardoso FNP [address] [place], [place] [phone] Social History Tobacco Use Types Packs/Day Years [...] a call for for televisit with pcp, law writer didn't see anything tasked. Please contact pt at [phone]. documented in this encounter Plan of Treatment Upcoming Encounters Date Type Department Care Team (Late st Contact Info) Description 06/16/2025 10:00 AM EST Telemedicine [facility] MED & PEDS 505 [place] [address] Amira Ayoub PharmD 230 [place] [address] documented as of this encounter Visit Diagnoses Not on filedocumented in this encounter Additional Health Concerns Assessment Noted Time PHQ-9 Depression Total Score: 0 12/26/19 23 1:09 PM EDT documented as of this encounter Care Teams Nutritional Health Coach Relationship Specialty Start Date End Date Rosalind Cardoso FNP 230 [place] [address] PCP - General Family Medicine 04/28/21 Barron Wetzel MD 100 [facility] 200 [place] [address] Nephrology 01/15/25 Madeline Yo [address] [facility] [address] 3rd [place] [address] Cardiology 01/15/25 [employer] 01/05/25 documented as of this encounter
--- OUTSIDE RECORDS SUMMARY | 2025-06-10 13:35 | XMS_ITS | Encounter Summary ---
Author Organization [employer] Address [address] [place] [address] 7 [place] [address] Care Team Providers Care Executive Director Global Brand Marketing Name Role Phone Rosalind Cardoso Primary Care Provider [phone] Barron Wetzel MD Unavailable [phone] Madeline Yo Unavailable Encounter Details Date Type Department Care Team (Late st Contact Info) Description 10/04/2023 Orders Only [facility] MEDICINE [address] [place] [address] Rosalind Cardoso FNP [address] [place], [place] [phone] Type 2 diabetes mellitus with stage 3 [...] Info) Description 06/16/2025 10:00 AM EST Telemedicine [facility] [address] [place] [address] Amira Ayoub, PharmD 230 [place] [address] documented as of this encounter Procedures Procedure [...] 46(H) 0 - 20 MM/HR [facility] Comment:Patients with polycy themia and many hemoglobin abnormalitiesmay have depressed sed rates whereas patients with anemiamay have elevated sed rates. Blood Venous blood specimen / Unknown 10/25/2023 1:09 PM EDT 10/25/2023 1:09 PM EDT Rosalind Cardoso AIR BREAKER OPERATOR LAB BLOOD ORDERABLES Final Res ult Performing Organization Address [facility] Co de Phone Number [facility] [address] [place] [phone] * Prothrombin Time-INR (10/25/2023 1:09 PM EDT) Prothrombin Time 12.3 11.1 - 13.3 SEC [facility] INTERNATIONAL NORM RATIO 1.0 0.9 - 1.1 [facility] Comment:INTERNATIONAL NORMAL IZED RATIO (INR) [...] PM EDT Rosalind Cardoso [facility] LAB BLOOD ORDERABLES Final Res ult Performing Organization Address [facility] Co de Phone Number [facility] [address] [place] [phone] documented in this encounter Visit Diagnoses [...] documented as of this encounter Care Teams Executive Director Global Brand Marketing Relationship Specialty Start Date End Date Rosalind Cardoso FNP [address] [place] [address] PCP - General Family Medicine 04/28/21 Barron Wetzel MD 100 [facility] 200 [place] [address] Nephrology 01/15/25 Madeline Yo [address] [place] [address] 3rd [place] [address] Cardiology 01/15/25 [employer] 01/05/25 documented as of this encounter
--- OUTSIDE RECORDS SUMMARY | 2025-06-10 13:35 | XMS_ITS | Encounter Summary ---
Author Organization [employer] Address [address] [place] [address] 7t [place] [address] Care Team Providers Care Environmental Marketing Representative Name Role Phone Rosalind Cardoso Primary Care Provider [phone] Barron Wetzel MD Unavailable [phone] Madeline Yo Unavailable Encounter Details Date Type Department Care Team (Late st Contact Info) Description 10/29/2023 Telephone [facility] MED[facility]INE 230 [place] [address] Rosalind Cardoso FNP [address] [place], [place] [phone] Social History Tobacco Use Types Packs/Day Years [...] Info) Description 06/16/2025 10:00 AM EST Telemedicine [facility] [address] [place] [address] Amira Ayoub PharmD 230 [place] [address] documented as of this encounter Visit Diagnoses Not on filedocumented in this encounter Additional Health Concerns Assessment Noted Time PHQ-9 Depression Total Score: 0 12/26/19 23 1:09 PM EDT documented as of this encounter Care Teams Environmental Marketing Representative Relationship Specialty Start Date End Date Rosalind Cardoso FNP 230 [place] [address] PCP - General Family Medicine 04/28/21 Barron Wetzel MD 100 [facility] 200 [place] [address] Nephrology 01/15/25 Madeline Yo [address] 3rd [place] [address] Cardiology 01/15/25 [employer] 01/05/25 documented as of this encounter
--- OUTSIDE RECORDS SUMMARY | 2025-06-10 13:35 | XMS_ITS | Clinical Summary ---
Author Organization [address] [place] [address] [place] [phone] Phone Care Team Providers Care Senior Recruiter Name Role Phone Physician, Pcp Unknown Primary [...] 400 mg magnesium tablet Take by mouth. Active metFORMIN (GLUCOPHAGE) 1,000 mg tablet Take 1 [...] mcg (1,000 unit) tablet Take by mouth. Active acetaminophen (TYLENOL) 325 mg tablet Take 2 [...] 368 g 3 5 08/10/19 26 Active lidocaine (LIDODERM) 5 % patchIndications:D iabetic mononeuropathy simplex ([facility] V24, [facility] V28) Apply 1 patch topically 1 (one) time each day. Remove & discard patch within 12 hours or as directed by MD. 30 each 2 5 06/13/20 25 Active Active Problems Problem Noted Date Diagnosed Date DM2 (diabetes mellitus, type 2) ([facility] V24, CM S/[facility] V28) 10/22/2022 Hx of BKA, left ([facility] V24, [facility] V28) 10/22 Hyperlipidemia 10/22/2022 Hypertension 10/22/2022 PAD (peripheral artery disease) ([facility] V24) Vitamin D deficiency 10/22/2022 Encounters Date Type Department Care Team Description 06/02/2025 Telephone Vascular Surgery [facility] [address] [phone] Oralia Borden MD 03/15/2025 3:00 PM EDT Office Visit Vascular Surgery [facility] 300 [facility] 210 [place] [address] Maggy Khalil MD Neuropathy (Primary Dx); Leg pain, bilateral 03/15/2025 8:30 AM EDT Office Visit Orthopedic Surgery [address] [phone] Raheel Quijano DPM Diabetic mononeuropathy simplex ([facility] V24, [facility] V28) (Primary Dx); Type II diabetes mellitus with peripheral circulatory disorder ([facility] V24, [facility] V28); Dermatophytosis of nail; Fissure in skin of right foot; Pain in toe of right foot; History of amputation 03/12/2025 Telephone Vascular Surgery [facility] 300 [facility] 210 [place] [address] Oralia Borden MD from Last 3 Months Surgical History Surgery [...] Sign Reading Time Taken Comments Blood Pressure 141/72 03/15/2025 1:24 PM EDT Pulse 99 03/15/2025 1:24 PM EDT Temperature - - Respiratory Rate 16 01/06/2025 1:00 PM EDT Oxygen Saturation - - Inhaled Oxygen Concentration - - Weight 98.9 kg (218 lb) 08/10/2024 2:35 PM EST Height 152.4 cm (5') 03/15/2025 1:24 PM EDT Body Mass Index 42.58 08/10/2024 2:35 PM EST Plan of Treatment Upcoming Encounters Date Type Department Care Team (Late st Contact Info) Description 06/15/2025 8:45 AM EST Office Visit Orthopedic Surgery [facility] [address] [phone] Raheel Quijano DPM [address] [phone] 01/12/2026 1:00 PM EDT Office Visit Vascular Surgery [facility] 300 [facility] 210 [place] [phone] Oralia Borden MD [address] [place] [phone] Health Maintenance Due Date Last Done Comments Breast Cancer Screening 1963 Colorectal Cancer Screening: Colonoscopy 1963 Diabetes: Annual Foot Exam 1973 Diabetes: Annual Retina Eye Exam 1973 DTaP,Tdap,and Td Vaccines (1 - Tdap) 1982 Pneumococcal Vaccine: 50+ Years (1 of 2 - PCV) 1982 Cervical Cancer Screening: Pap Smear 1984 RSV Immunization Adult Patients (1 - Risk 50-74 years 1-dose series) 2013 Zoster Vaccines (1 of 2) 2013 Hepatitis C Screening 08/02/2023 Medicare Annual Wellness Visit 08/02/2023 Social Influencers of Health Screening 08/02/2023 Diabetes: Annual Urine Albumin-Creatinine Ratio (uACR) 08/21/2023 Depression Screening 07/08/2024 COVID-19 Vaccine ( - season) 2025 Influenza Vaccine (#1) 2025 Diabetes: Blood Sugar Control Test (HGBA1C) 05/29/2025 11/26/2024, 08/03/2024 Diabetes: Annual GFR (Glomerular Filtration Rate) 02/26/2026 02/26/2025, 12/24/2024, 12/21/2024, Additional history exists Hypertension/CHF/CAD Annual BMP Blood Test 02/26/2026 02/26/2025, 12/24/2024, 12/21/2024, Additional history exists Cholesterol Screening (Lipid Panel) 02/11/2030 02/11/2025, 10/02/2024, 05/29/2024 HIV Screening Completed 08/22/2021 HIB [...] patient's age to complete this topic Insurance [facility] MEDIC[facility] Member Subscriber Plan / Payer (Ef fective 2016-Present) Name:MITRA PARISH Relation to Subscriber:Self Name:Mitra Parish Payer ID:[id number] Group ID:[id number] Type:Not on file Address: [place] [facility] [place] [id number] Advance Directives Documents on File Type Date Recorded Patient Anti Air Warfare Operations Officer Expl anation Health Care Decision (hx) 09/04/2022 AD REINOSO DIRECTIVE Health Care Decision (hx) 09/04/2022 AD REINOSO DIRECTIVE Care Teams Senior Recruiter Relationship Specialty Start Date End Date Physician, Pcp Unknown PCP - General 07/27/24
--- OUTSIDE RECORDS SUMMARY | 2025-06-10 13:35 | XMS_ITS | Encounter Summary ---
Author Organization [employer] Address [address] [place] [address] 7 [place] [address] Care Team Providers Care Radioisotope Technician Name Role Phone Rosalind Cardoso Primary Care Provider [phone] Barron Wetzel MD Unavailable [phone] Madeline Yo Unavailable Encounter Details Date Type Department Care Team (Late st Contact Info) Description 09/20/2023 Orders Only [facility] MEDICINE 230 [place] [address] Rosalind Cardoso FNP [address] [place], [place] [phone] Type 2 diabetes mellitus with stage 3 [...] Description 06/16/2025 10:00 AM EST Telemedicine [facility] MED & PED[facility] [address] [place] [address] Amira Ayoub, PharmD 230 [place] [address] documented as of this encounter Procedures Procedure [...] unspecified whether stage 3a or 3b CKD ([facility]) Myalgia MAGNESIUM Routine 09/27/2023 9:56 AM EDT Type 2 diabetes mellitus with stage 3 chronic kidney disease, with long-term current use of insulin, unspecified whether stage 3a or 3b CKD ([facility]) Myalgia COMPREHENSIVE METABOLIC PANEL Routine 09/27/2023 9:56 AM EDT Type 2 diabetes mellitus with stage 3 chronic kidney disease, with long-term current use of insulin, unspecified whether stage 3a or 3b CKD ([facility]) Myalgia documented in this encounter Results * (ABNORMAL) Sed Rate by Modified Westergren (09/27/2023 9:56 AM EDT) Erythrocyte Sedimentation Rate 42(H) 0 - 20 MM/HR [facility] Comment:Patients with polycy themia and many hemoglobin abnormalitiesmay have depressed sed rates whereas patients with anemiamay have elevated sed rates. Blood Venous blood specimen / Unknown 09/27/2023 9:56 AM EDT 09/27/2023 9:58 AM EDT us Rosalind Cardoso [facility] LAB BLOOD ORDERABLES Final Res ult [facility] [address] [place] [phone] * (ABNORMAL) C-reactive Protein (09/27/2023 9:56 AM EDT) C Reactive Protein 0.63(H) < or = 0.50 mg/dL [facility] Blood Venous blood specimen / Unknown 09/27/2023 9:56 AM EDT 09/27/2023 9:58 AM EDT us Rosalind Bruceen [facility] LAB BLOOD ORDERABLES Final Res ult Performing Organization Address [facility]/ZIP Co de Phone Number [facility] [address] [place] [phone] * Magnesium (09/27/2023 9:56 AM EDT) Magnesium 1.7 1.6 - 2.6 mg/dL [facility] Blood Venous blood specimen / Unknown 09/27/2023 9:56 AM EDT 09/27/2023 9:58 AM EDT Rosalind Cardoso [facility] LAB BLOOD ORDERABLES Final Res ult Performing Organization Address [facility] de Phone Number [facility] [address] [place] [phone] * Prothrombin Time-INR (09/27/2023 9:56 AM EDT) Prothrombin Time 11.5 11.1 - 13.3 SEC [facility] INTERNATIONAL NORM RATIO 0.9 0.9 - 1.1 [facility] Comment:INTERNATIONAL NORMAL IZED RATIO (INR) REFERENCE [...] EDT 09/27/2023 9:58 AM EDT Rosalind Cardoso [facility] LAB BLOOD ORDERABLES Final Res ult Performing Organization Address [facility] Co de Phone Number [facility] [address] [place] [phone] * (ABNORMAL) Comprehensive Metabolic Panel (09/27/2023 9:56 AM EDT) Sodium 140 135 - 145 mmol/L [facility] Potassium 3.8 3.3 - 5.1 mmol/L [facility] Chloride 105 96 - 108 mmol/L [facility] Carbon Dioxide 27 22 - 29 mmol/L [facility] Anion Gap 12 12 - 20 [facility] Urea Nitrogen (BUN) 36(H) 9 - 16 mg/dL [facility] Creatinine, Serum 1.55(H) 0.5 - 1.4 mg/dL [facility] Estimated Glomerular Filt Rate 34 [facility] Comment:NOTE: For -Am erican individuals, multiply the result by 1.210.Chronic Kidney Disease: Estimated GFR < 60 mL/min/1.18c7Pyvpyz Kidney Disease: Estimated GFR < 15 mL/min/1.73m2 Glucose 191(H) 60 - 115 mg/dL [facility] Calcium 9.2 8.4 - 10.2 mg/dL [facility] Bilirubin, Total 0.3 0.0 - 1.0 mg/dL [facility] Aspartate Amino Transferase 22 5 - 31 U/L [facility] Alanine Aminotransferase 35(H) 0 - 31 U/L [facility] Total Protein 6.3(L) 6.5 - 8.0 g/dL [facility] Albumin Level 3.2(L) 3.5 - 5.0 g/dL [facility] Alkaline Phosphatase 125(H) 39 - 117 U/L [facility] Blood Venous blood specimen / Unknown 09/27/2023 9:56 AM EDT 09/27/2023 9:58 AM EDT us Rosalind Cardoso [employer]OT [employer] LAB BLOOD ORDERABLES Final Res ult [facility] [address] [place] [phone] * (ABNORMAL) CBC auto differential (09/27/2023 9:56 AM EDT) White Blood Count 8.6 4.8 - 10.8 X10*3/uL [facility] Red Blood Count 4.52 4.20 - 5.50 X10*6/uL [facility] Hemoglobin 8.8(L) 12.0 - 16.0 g/dl [facility] Hematocrit 29.9(L) 37.0 - 47.0 % [facility] Mean Corpuscular Volume 66.2(L) 80.0 - 98.0 fL [facility] Mean Corpuscular Hemoglobin 19.5(L) 27.0 - 33.0 pg [facility] Mean Corpuscular HGB Conc 29.4(L) 31.0 - 35.0 g/dl [facility] Red Cell Distribution Width 18.4(H) 11.0 - 16.0 % [facility] Platelet Count 370 160 - 400 X10*3/uL [facility] Mean Platelet Volume 10.5 9.4 - 12.3 fL [facility] Neutrophils Percent Auto 66.9 45 - 73 % [facility] Imm Gran Pct Auto 0.6(H) 0.0 - 0.4 % [facility] Lymphocytes Percent Auto 21.8 20 - 40 % [facility] Monocytes Percent Auto 7.0 2 - 11 % [facility] Eosinophils Percent Auto 3.0 0 - 4 % [facility] Basophils Percent Auto 0.7 0 - 2 % [facility] NRBC Pct Auto 0.0 0.0 - 0.2 /100WBC [facility] Neutrophils Absolute Auto 5.7 2.0 - 8.3 x10*3/uL [facility] Imm Gran Abs Auto 0.05(H) 0.00 - 0.03 X10*3/uL [facility] Lymphocytes Absolute Auto 1.9 1.2 - 4.9 X10*3/uL [facility] Monocytes Absolute Auto 0.6 0.1 - 1.2 X10*3/uL [facility] Eosinophils Absolute Auto 0.3 0.0 - 0.4 X10*3/uL [facility] Basophils Absolute Auto 0.1 0.0 - 0.2 X10*3/uL [facility] NRBC Abs Auto 0.000 0.0 - 0.012 X10*3/uL [facility] Blood Venous blood specimen / Unknown 09/27/2023 9:56 AM EDT 09/27/2023 9:58 AM EDT us Rosalind MORELOS LAB BLOOD ORDERABLES Final Res ult [facility] [address] [place] [phone] documented in this encounter Visit Diagnoses [...] documented as of this encounter Care Teams Radioisotope Technician Relationship Specialty Start Date End Date Rosalind Cardoso FNP [address] [place] [address] PCP - General Family Medicine 04/28/21 Barron Wetzel MD 100 [facility] 200 [place] [address] Nephrology 01/15/25 Madeline Yo [address] [place] [address] 3rd [place] [address] Cardiology 01/15/25 [employer] 01/05/25 documented as of this encounter
--- OUTSIDE RECORDS SUMMARY | 2025-06-10 13:35 | XMS_ITS | Encounter Summary ---
Author Organization [employer] Address [address] [place] [address] 7 [place] [address] Care Team Providers Care Small Arms Artillery Repairer Name Role Phone Rosalind Cardoso Primary Care Provider [phone] Barron Wetzel MD Unavailable [phone] Madeline Yo Unavailable Reason for Visit * Reason Onset Date Comments FYI 09/10/2022 Encounter Details Date Type Department Care Team (Late st Contact Info) Description 09/10/2022 Telephone [facility] MEDICINE [address] [place] [address] Rosalind Cardoso FNP [address] [place], [place] [phone] FY Social History Tobacco Use Types Packs/Day [...] If any question please contact Nae at [phone] documented in this encounter Plan of Treatment Upcoming Encounters Date Type Department Care Team (Late st Contact Info) Description 06/16/2025 10:00 AM EST Telemedicine [facility] [address] [place] [address] Amira Ayoub PharmD 230 [place] [address] documented as of this encounter Visit Diagnoses Not on filedocumented in this encounter Care Teams Small Arms Artillery Repairer Relationship Specialty Start Date End Date Rosalind Cardoso FNP [address] [place] [address] PCP - General Family Medicine 04/28/21 Barron Wetzel MD [address] [facility] 200 [place] [address] Nephrology 01/15/25 Madeline Yo [address] [place] [address] 3rd [place] [address] Cardiology 01/15/25 [employer] 01/05/25 documented as of this encounter
--- OUTSIDE RECORDS SUMMARY | 2025-06-10 13:35 | XMS_ITS | Encounter Summary ---
Author Organization [employer] Address [address] [place] [address] 7 [place] [address] Care Team Providers Care Drafter Automotive Design Name Role Phone Rosalind Cardoso Primary Care Provider [phone] Barron Wetzel MD Unavailable [phone] Madeline Yo Unavailable Reason for Visit * Reason Onset Date Comments Medication Question 10/22/2023 Encounter Details Date Type Department Care Team (Late st Contact Info) Description 10/22/2023 Telephone [facility] MEDICINE [address] [place] [address] Rosalind Cardoso FNP [address] [place], [place] [phone] Medication Question Social History Tobacco Use Types [...] 06/16/2025 10:00 AM EST Telemedicine [facility] MED & PEDS 505 [place] [address] Amira Ayoub, PharmD 230 [place] [address] documented as of this encounter Visit Diagnoses Not on filedocumented in this encounter Additional Health Concerns Assessment Noted Time PHQ-9 Depression Total Score: 0 12/26/19 23 1:09 PM EDT documented as of this encounter Care Teams Drafter Automotive Design Relationship Specialty Start Date End Date Rosalind Cardoso FNP 230 [place] [address] PCP - General Family Medicine 04/28/21 Barron Wetzel MD 100 [facility] 200 [place] [address] Nephrology 01/15/25 Madeline Yo [address] [place] [address] Drive 3rd Floor [place] [address] Cardiology 01/15/25 [employer] 01/05/25 documented as of this encounter
--- OUTSIDE RECORDS SUMMARY | 2025-06-10 13:35 | XMS_ITS | Encounter Summary ---
Author Organization [employer] Address [address] [place] [address] [address]t [place] [address] Care Team Providers Care Mailroom Associate Name Role Phone Rosalind Cardoso Primary Care Provider [phone] Barron Wetzel MD Unavailable [phone] Madeline Yo Unavailable Reason for Visit * Reason Onset Date Comments Results 08/29/2023 Encounter Details Date Type Department Care Team (Late st Contact Info) Description 08/29/2023 Telephone [facility] MEDICINE [address] [place] [address] Rosalind Cardoso FNP [address] [place], [place] [phone] Results Social History Tobacco Use Types Packs/Day [...] done today 08/29/23. Please contact pt @ [phone] documented in this encounter Plan of Treatment Upcoming Encounters Date Type Department Care Team (Late st Contact Info) Description 06/16/2025 10:00 AM EST Telemedicine [facility] MED & PEDS [address] [facility] [place] [address] Amira Ayoub, ChristopherD [address] [place] [address] documented as of this encounter Visit Diagnoses Not on filedocumented in this encounter Additional Health Concerns Assessment Noted Time PHQ-9 Depression Total Score: 0 12/26/19 23 1:09 PM EDT documented as of this encounter Care Teams Mailroom Associate Relationship Specialty Start Date End Date Rosalind Cardoso FNP [address] [place] [address] PCP - General Family Medicine 04/28/21 Barron Wetzel MD 100 [facility] 200 [place] [address] Nephrology 01/15/25 Madeline Yo [address] [place] [address] 3rd [place] [address] Cardiology 01/15/25 [employer] 01/05/25 documented as of this encounter
--- OUTSIDE RECORDS SUMMARY | 2025-06-10 13:35 | XMS_ITS | Encounter Summary ---
Author Organization [employer] Address [address] [place] [address] 7 [place] [address] Care Team Providers Care Editor & Co Founder Name Role Phone Rosalind Cardoso Primary Care Provider [phone] Barron Wetzel MD Unavailable [phone] Madeline Yo Unavailable Reason for Visit * Reason Onset Date Comments Results 10/25/2023 Encounter Details Date Type Department Care Team (Late st Contact Info) Description 10/25/2023 Telephone [facility] MEDICINE [address] [place] [address] Rosalind Cardoso FNP [address] [place], [place] [phone] Results Social History Tobacco Use Types Packs/Day [...] results: Labs Date when done: 10/24 Facility: [facility] * Telephone Encounter - Bahman Hutchinson - 10/25/2023 3:16 PM EDT TC from pt requesting call back regarding Results. Type of results: Labs Date when done: 10/24 Facility: [facility] documented in this encounter Plan of Treatment Upcoming Encounters Date Type Department Care Team (Late st Contact Info) Description 06/16/2025 10:00 AM EST Telemedicine [facility] MED & PEDS [address] [place] [address] Amira Ayoub PharmD 230 [place] [address] documented as of this encounter Visit Diagnoses Not on filedocumented in this encounter Additional Health Concerns Assessment Noted Time PHQ-9 Depression Total Score: 0 12/26/19 23 1:09 PM EDT documented as of this encounter Care Teams Editor & Co Founder Relationship Specialty Start Date End Date Rosalind Cardoso FNP [address] [place] [address] PCP - General Family Medicine 04/28/21 Barron Wetzel MD 100 [facility] 200 [place] [address] Nephrology 01/15/25 Madeline Yo [address] [place] [address] 3rd [place] [address] Cardiology 01/15/25 [employer] 01/05/25 documented as of this encounter
--- OUTSIDE RECORDS SUMMARY | 2025-06-10 13:35 | XMS_ITS | Encounter Summary ---
Author Organization [employer] Address [address] [place] [address] 7 [place] [address] Care Team Providers Care Lining Caser Name Role Phone Rosalind Cardoso Primary Care Provider [phone] Barron Wetzel MD Unavailable [phone] Madeline Yo Unavailable Encounter Details Date Type Department Care Team (Late st Contact Info) Description 09/11/2024 Orders Only [facility] MED & PEDS [address] [place], [place] [phone] Rosalind Cardoso FNP 505 [place], [place] [phone] Type 2 diabetes mellitus with stage 3 [...] Info) Description 06/16/2025 10:00 AM EST Telemedicine [facility] MED & PEDS 505 [place] [address] Amira Ayoub, PharmD 230 [place] [address] documented as of this encounter Procedures Procedure [...] Protein 0.59(H) < or = 0.50 mg/dL [facility] Blood Venous blood specimen / Unknown 10/06/2024 10:27 AM EDT 10/06/2024 10:27 AM EDT Rosalind MORELOS LAB BLOOD ORDERABLES Final Res ult [facility] [address] [place] [phone] * Magnesium (10/06/2024 10:27 AM EDT) Magnesium 2.0 1.6 - 2.6 mg/dL [facility] Blood Venous blood specimen / Unknown 10/06/2024 10:27 AM EDT 10/06/2024 10:27 AM EDT us Rosalind Phalen CHIEF MEDICAL PHYSICIST LAB BLOOD ORDERABLES Final Res ult Performing Organization Address [facility]/ZIP Co de Phone Number [facility] [address] [place] [phone] [phone] * (ABNORMAL) Comprehensive Metabolic Panel (10/06/2024 10:27 AM EDT) Sodium 134(L) 135 - 145 mmol/L [facility] Potassium 4.4 3.3 - 5.1 mmol/L [facility] Chloride 101 96 - 108 mmol/L [facility] Carbon Dioxide 24 22 - 29 mmol/L [facility] Anion Gap 13 12 - 20 [facility] Urea Nitrogen (BUN) 85(H) 9 - 16 mg/dL [facility] Creatinine, Serum 2.35(H) 0.5 - 1.4 mg/dL [facility] Estimated Glomerular Filt Rate 21 [facility] Comment:Chronic Kidney Disea se: Estimated GFR < 60 mL/min/[id number] Kidney Disease: Estimated GFR < 15 mL/min/1.73m2 Glucose 298(H) 60 - 115 mg/dL [facility] Calcium 9.6 8.4 - 10.2 mg/dL [facility] Bilirubin, Total 0.3 0.0 - 1.0 mg/dL [facility] Aspartate Amino Transferase 15 5 - 31 U/L [facility] Alanine Aminotransferase 7 0 - 31 U/L [facility] Total Protein 6.9 6.5 - 8.0 g/dL [facility] Albumin Level 3.6 3.5 - 5.0 g/dL [facility] Alkaline Phosphatase 91 39 - 117 U/L [facility] Blood Venous blood specimen / Unknown 10/06/2024 10:27 AM EDT 10/06/2024 10:27 AM EDT Rosalind Cardoso CHIEF MEDICAL PHYSICIST LAB BLOOD ORDERABLES Final Res ult Performing Organization Address [facility]/ZIP Co de Phone Number [facility] [address] [place] [address] [phone] * (ABNORMAL) Sed Rate by Modified Westergren (10/02/2024 3:12 PM EDT) Erythrocyte Sedimentation Rate 53(H) 0 - 20 MM/HR [facility] Comment:Patients with polycy themia and many hemoglobin abnormalitiesmay have depressed sed rates whereas patients with anemiamay have elevated sed rates. Blood Venous blood specimen / Unknown 10/02/2024 3:12 PM EDT 10/02/2024 3:12 PM EDT us Rosalind MORELOS LAB BLOOD ORDERABLES Final Res ult [facility] [address] [place] [address] [phone] documented in this encounter Visit Diagnoses [...] documented as of this encounter Care Teams Lining Caser Relationship Specialty Start Date End Date Rosalind Cardoso FNP [address] [place] [address] PCP - General Family Medicine 04/28/21 Barron Wetzel MD 100 [facility] 200 [place] [address] Nephrology 01/15/25 Madeline Yo [address] [place] [address] 3rd [place] [address] Cardiology 01/15/25 [employer] 01/05/25 documented as of this encounter
--- OUTSIDE RECORDS SUMMARY | 2025-06-10 13:35 | XMS_ITS | Encounter Summary ---
Author Organization [employer] Address [address] [place] [address] 7 [place] [address] Care Team Providers Care Order Analyst Name Role Phone Rosalind Cardoso Primary Care Provider [phone] Barron Wetzel MD Unavailable [phone] Madeline Yo Unavailable Encounter Details Date Type Department Care Team (Late st Contact Info) Description 11/15/2023 Orders Only [facility] MEDICINE [address] [place] [address] Rosalind Cardoso FNP [address] [place], [place] [phone] Type 2 diabetes mellitus with stage 3 [...] Info) Description 06/16/2025 10:00 AM EST Telemedicine [facility] MED & PEDS [address] [place] [address] Amira Ayoub, PharmD [address] [place] [address] documented as of this encounter Procedures Procedure [...] unspecified whether stage 3a or 3b CKD ([facility]) Myalgia COMPREHENSIVE METABOLIC PANEL Routine 11/20/2023 9:36 AM EDT Type 2 diabetes mellitus with stage 3 chronic kidney disease, with long-term current use of insulin, unspecified whether stage 3a or 3b CKD ([facility]) Myalgia documented in this encounter Results * (ABNORMAL) Sed Rate by Modified Westergren (11/20/2023 9:36 AM EDT) Erythrocyte Sedimentation Rate 30(H) 0 - 20 MM/HR [facility] Comment:Patients with polycy themia and many hemoglobin abnormalitiesmay have depressed sed rates whereas patients with anemiamay have elevated sed rates. Blood Venous blood specimen / Unknown 11/20/2023 9:36 AM EDT 11/20/2023 9:36 AM EDT Rosalind Cardoso BASKET GRADER LAB BLOOD ORDERABLES Final Res ult Performing Organization Address [facility]/ZIP Co de Phone Number [facility] [address] [place] [address] [phone] * (ABNORMAL) C-reactive Protein (11/20/2023 9:36 AM EDT) C Reactive Protein 1.26(H) < or = 0.50 mg/dL [facility] Blood Venous blood specimen / Unknown 11/20/2023 9:36 AM EDT 11/20/2023 9:36 AM EDT Rosalind Cardoso BASKET GRADER LAB BLOOD ORDERABLES Final Res ult Performing Organization Address City/[facility]/ZIP Co de Phone Number [facility] [address] [place] [phone] * Magnesium (11/20/2023 9:36 AM EDT) [facility] Magnesium 1.8 1.6 - 2.6 mg/dL [facility] Blood Venous blood specimen / Unknown 11/20/2023 9:36 AM EDT 11/20/2023 9:36 AM EDT Rosalind Cardoso [facility] LAB BLOOD ORDERABLES Final Res ult Performing Organization Address [facility] Co de Phone Number [facility] [address] [place] [phone] * Prothrombin Time-INR (11/20/2023 9:36 AM EDT) [facility] Prothrombin Time 11.6 11.1 - 13.3 SEC [facility] INTERNATIONAL NORM RATIO 1.0 0.9 - 1.1 [facility] Comment:INTERNATIONAL NORMAL IZED [...] EDT 11/20/2023 9:36 AM EDT Rosalind Cardoso [facility] LAB BLOOD ORDERABLES Final Res ult Performing Organization Address [facility] Co de Phone Number [facility] [address] [place] [phone] * (ABNORMAL) Comprehensive Metabolic Panel (11/20/2023 9:36 AM EDT) [facility] Sodium 139 135 - 145 mmol/L [facility] Potassium 4.0 3.3 - 5.1 mmol/L [facility] Chloride 102 96 - 108 mmol/L [facility] Carbon Dioxide 28 22 - 29 mmol/L [facility] Anion Gap 13 12 - 20 [facility] Urea Nitrogen (BUN) 40(H) 9 - 16 mg/dL [facility] Creatinine, Serum 1.51(H) 0.5 - 1.4 mg/dL [facility] Estimated Glomerular Filt Rate 35 [facility] Comment:NOTE: For -Am erican individuals, multiply the result by 1.210.Chronic Kidney Disease: Estimated GFR < 60 mL/min/[id number] Kidney Disease: Estimated GFR < 15 mL/min/1.73m2 Glucose 214(H) 60 - 115 mg/dL [facility] Calcium 9.7 8.4 - 10.2 mg/dL [facility] Bilirubin, Total 0.2 0.0 - 1.0 mg/dL [facility] Aspartate Amino Transferase 15 5 - 31 U/L [facility] Alanine Aminotransferase 11 0 - 31 U/L [facility] Total Protein 7.0 6.5 - 8.0 g/dL [facility] Albumin Level 3.4(L) 3.5 - 5.0 g/dL [facility] Alkaline Phosphatase 112 39 - 117 U/L [facility] Blood Venous blood specimen / Unknown 11/20/2023 9:36 AM EDT 11/20/2023 9:36 AM EDT us Rosalind MORELOS LAB BLOOD ORDERABLES Final Res ult [facility] [address] [place] [phone] documented in this encounter Visit Diagnoses [...] documented as of this encounter Care Teams Order Analyst Relationship Specialty Start Date End Date Rosalind Cardoso FNP [address] [place] [address] PCP - General Family Medicine 04/28/21 Barron Wetzel MD 100 [facility] 200 [place] [address] Nephrology 01/15/25 Madeline Yo [address] [place] [address] 3rd [place] [address] Cardiology 01/15/25 [employer] 01/05/25 documented as of this encounter
--- OUTSIDE RECORDS SUMMARY | 2025-06-10 13:35 | XMS_ITS | Encounter Summary ---
Author Organization [employer] Address [address] [place] [address] 7t [place] [address] Care Team Providers Care Brake Lining Curer Name Role Phone Rosalind Cardoso Primary Care Provider [phone] Barron Wetzel MD Unavailable [phone] Madeline Yo Unavailable Reason for Visit * Reason Onset Date Comments Referral 10/10/2023 Encounter Details Date Type Department Care Team (Late st Contact Info) Description 10/10/2023 Telephone [facility] MEDICINE [address] [place] [address] Rosalind Cardoso FNP [address] [place], [place] [phone] Referral Social History Tobacco Use Types Packs/Day [...] any questions you can contact pt at [phone]. documented in this encounter Plan of Treatment Upcoming Encounters Date Type Department Care Team (Late st Contact Info) Description 06/16/2025 10:00 AM EST Telemedicine [facility] MED & PEDS [address] [place] [address] Amira Ayoub PharmD [address] [place] [address] documented as of this encounter Visit Diagnoses Not on filedocumented in this encounter Additional Health Concerns Assessment Noted Time PHQ-9 Depression Total Score: 0 12/26/19 23 1:09 PM EDT documented as of this encounter Care Teams Brake Lining Curer Relationship Specialty Start Date End Date Rosalind Cardoso FNP [address] [place] [address] PCP - General Family Medicine 04/28/21 Barron Wetzel MD 100 [facility] 200 [place] [address] Nephrology 01/15/25 Madeline Yo [address] [place] [address] 3rd [place] [address] Cardiology 01/15/25 [employer] 01/05/25 documented as of this encounter
--- OUTSIDE RECORDS SUMMARY | 2025-06-10 13:35 | XMS_ITS | Encounter Summary ---
Author Organization [employer] Address [address] [place] [address] [facility] [place] [address] Care Team Providers Care Accounts Payable Administrator Name Role Phone Rosalind Cardoso Primary Care Provider [phone] Barron Wetzel MD Unavailable [phone] Madeline Yo Unavailable Reason for Visit * Reason Onset Date Comments Request For Order(s) 07/30/2023 Encounter Details Date Type Department Care Team ([facility] st Contact Info) Description 07/30/2023 Telephone [facility]S [address] [place], [place] [phone] Rosalind Cardoso FNP [address] [place], [place] [phone] Request For Order(s) Social History Tobacco Use [...] 4:26 PM EST Tc ro martinez with [facility] core requesting updated PT orders due to pt complaining of hip and back pain. Will also need OT orders for pain in the hands. Please fax to [phone] (attention: michelle) documented in this encounter Plan of Treatment Upcoming Encounters Date Type Department Care Team (Late st Contact Info) Description 06/16/2025 10:00 AM EST Telemedicine [facility] MED & PEDS [address] [place] [address] Amira Ayoub, PharmD [address] [place] [address] documented as of this encounter Visit Diagnoses Diagnosis Pain in both hands- Primary Back pain, unspecified back location, unspecified back pain laterality, unspecified chronicity Hip pain, unspecified laterality documented in this encounter Additional Health Concerns Assessment Noted Time PHQ-9 Depression Total Score: 0 12/26/19 23 1:09 PM EDT documented as of this encounter Care Teams Accounts Payable Administrator Relationship Specialty Start Date End Date Rosalind Cardoso FNP [address] [place] [address] PCP - General Family Medicine 04/28/21 Barron Wetzel MD 100 [facility] 200 [place] [address] Nephrology 01/15/25 Madeline Yo [address] [place] [address] 3rd [place] [address] Cardiology 01/15/25 [employer] 01/05/25 documented as of this encounter
--- OUTSIDE RECORDS SUMMARY | 2025-06-10 13:35 | XMS_ITS | Encounter Summary ---
Author Organization [employer] Address [address] [place] [address] 7 [place] [address] Care Team Providers Care Enterprise Systems Administrator Name Role Phone Rosalind Cardoso Primary Care Provider [phone] Barron Wetzel MD Unavailable [phone] Madeline Yo Unavailable Reason for Visit * Reason Onset Date Comments Durable Medical Equipment 09/14/2022 Encounter Details Date Type Department Care Team (Late st Contact Info) Description 09/14/2022 Telephone [facility] MEDICINE [address] [place] [address] Rosalind Cardoso FNP [address] [place], [place] [phone] Durable Medical Equipment Social History Tobacco Use [...] signature and will be emailed to care rep Leonard for processing * Telephone Encounter - Franc Talley - 09/14/2022 11:52 AM EST Tc from pt requesting a call back, pt claims that the visiting care takers advised that patient needs a thick cushion for her wheel chair and a New walker with two wheels because the other walker is to fast for the pt. If any questions please contact pt at [phone] documented in this encounter Plan of Treatment Upcoming Encounters Date Type Department Care Team (Late st Contact Info) Description 06/16/2025 10:00 AM EST Telemedicine [facility] MED & PEDS [address] [place] [address] Amira Ayoub PharmD [address] [place] [address] documented as of this encounter Visit Diagnoses Not on filedocumented in this encounter Care Teams Enterprise Systems Administrator Relationship Specialty Start Date End Date Rosalind Cardoso FNP [address] [place] [address] PCP - General Family Medicine 04/28/21 Barron Wetzel MD 100 [facility] 200 [place] [address] Nephrology 01/15/25 Madeline Yo [address] [place] [address] Drive 3rd [place] [address] Cardiology 01/15/25 [employer] 01/05/25 documented as of this encounter
--- OUTSIDE RECORDS SUMMARY | 2025-06-10 13:35 | XMS_ITS | Encounter Summary ---
Author Organization [employer] Address [address] [place] [address] 7 [place] [address] Care Team Providers Care Bull Wheel Worker Name Role Phone Rosalind Cardoso Primary Care Provider [phone] Barron Wetzel MD Unavailable [phone] Madeline Yo Unavailable Reason for Visit * Reason Onset Date Comments Referral Renewal 07/18/2023 Encounter Details Date Type Department Care Team (Late st Contact Info) Description 07/18/2023 Telephone [facility] MEDICINE [address] [place] [address] Rosalind Cardoso FNP [address] [place], [place] [phone] Referral Renewal Social History Tobacco Use Types [...] - 07/24/2023 2:27 PM EST [place]erral [place] [facility] [place] and physical therapy placed, thank you! * Telephone Encounter - Tiffanie Marquez RN - 07/19/2023 1:10 PM EST Returned call to pt regarding message below. Pt states she is requesting the same services she was getting to [facility] just in [facility] [place] and OT due to transportation. [facility] can offer pt transportation. Pt states she [...] following with Physical therapy and OT at [facility] (2x/week) for hx of left BKA. Please confirm that she is interested in switching locations, as well as confirm that still for same diagnosis. Thank you! 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
--- OUTSIDE RECORDS SUMMARY | 2025-06-10 13:35 | XMS_ITS | Encounter Summary ---
Author Organization [employer] Address [address] [place] [address] 7 [place] [address] Care Team Providers Care Lump Inspector Name Role Phone Rosalind Cardoso Primary Care Provider Barron Wetzel MD Unavailable [phone] Madeline Yo Unavailable Reason for Visit * Reason Onset Date Comments Results 08/06/2023 Encounter Details Date Type Department Care Team ([facility] st Contact Info) Description 08/06/2023 Telephone [facility] MED & PEDS [address] [place], [place] [phone] Rosalind Cardoso FNP 505 [place], [place] [phone] Results Social History Tobacco Use Types Packs/Day [...] results: labs Date when done: 08/06 Facility: [facility] Please contact pt at [phone] documented in this encounter Plan of Treatment Upcoming Encounters Date Type Department Care Team (Late st Contact Info) Description 06/16/2025 10:00 AM EST Telemedicine [facility] MED [facility] PEDS [address] [place] [address] Amira Ayoub PharmD 230 [place] [address] documented as of this encounter Visit Diagnoses Not on filedocumented in this encounter Additional Health Concerns Assessment Noted Time PHQ-9 Depression Total Score: 0 12/26/19 23 1:09 PM EDT documented as of this encounter Care Teams Lump Inspector Relationship Specialty Start Date End Date Rosalind Cardoso FNP [address] [place] [address] PCP - General Family Medicine 04/28/21 Barron Wetzel MD 100 [facility] 200 [place] [address] Nephrology 01/15/25 Madeline Yo [address] [place] [address] 3rd [place] [address] Cardiology 01/15/25 [employer] 01/05/25 documented as of this encounter
--- OUTSIDE RECORDS SUMMARY | 2025-06-10 13:35 | XMS_ITS | Patient Health Record ---
Demographics Address [address] [place] [address] Email Address Preferred Language en Marital Status Unknown Scientology Affiliation Unknown Race White Ethnic Group Not or Lati no Author Organization [facility] Address [address] [place] [address] Support Name Relationship Address Phone Yessenia Parish Emergency Contact [address] [place], [place] [phone] [employer] Guarantor Unknown [phone] Care Team Providers Care Cager Operator Name Role Phone Arianna Whitmore Primary Care Provider Nate Florez [phone] Reason For Referral No Information Medications Medication SIG (Take, Route, Frequency, Duration) Notes Start Date End Date Status Dicyclomine HCl 10 MG Capsule 1-2 capsules Orally Four times a day prn abdominal cramps/bloating/cramps/di arrhea; Duration: 30 day(s) 03/27/2016 Active Lisinopril-hydroCHLOROthiaz marsha 20-25 MG Tablet 1 tablet Orally Once a day Active metFORMIN HCl 1000 MG Tablet 1 tablet with meals Orally Twice a day Active Aspir-81 81 MG Tablet Delayed Release 1 tablet Orally Once a day Active Social History Social History Additional Details Category Social Info Options Details Miscellaneous: Marital status: single Occupation: retired Section Notes: Nonsmoker; no sig. alcohol Originally from the [place], [place]--came to [place] in 2014 Problems Problem Type SNOMED Code ICD Code Onset Dates Problem Status W/U Status Risk Notes Problem Screening for malignant neoplasm of colon (199353561) Encounter for screening for malignant neoplasm of colon (Z12.11) Active confirmed Problem Irritable bowel syndrome with diarrhea (389749842) Irritable bowel syndrome with diarrhea (K58.0) Active confirmed Problem Cholelithiasis without obstruction (47862629) Calculus of gallbladder without cholecystitis without obstruction (K80.20) Active confirmed Problem Screening for malignant neoplasm of rectum (068638198) Encounter for screening for malignant neoplasm of rectum (Z12.12) Active confirmed Problem Microcytic anemia (192501684) Microcytic anemia (D50.9) Active confirmed Plan Of Treatment Pending [...] OF [place] [address] [place] [address] [id number] DONNA PARISH Self - patient is the insured MEDICAID OF [employer] [address] [place] [address] [phone] [id number] DONNA PARISH Self - patient is the insured Medical (General) History Medical History History ICD Code NIDDM Hypertension Denies NE,CVA,Lung disease Mild renal insufficiency Urinary incontinence She reports fatty liver--see n in [facility]--no liver biopsy was done--however, she had a normal liver profile in November of 2015, and had a normal liver ultrasound and MRI as well IBS--seen by GI MD in [facility] Gallstones Microcytic anemia Surgical History Surgery Date(Month/Year) Exploratory laparotomy 1988 D&C 1997
--- OUTSIDE RECORDS SUMMARY | 2025-06-10 13:35 | XMS_ITS | Encounter Summary ---
Author Organization [employer] Address [address] [place] [address] 7 [place] [address] Care Team Providers Care Fur Scraper Name Role Phone Rosalind Cardoso Primary Care Provider [phone] Barron Wetzel MD Unavailable Madeline Yo Unavailable Reason for Visit * Reason Onset Date Comments medication request 10/22/2023 Encounter Details Date Type Department Care Team (Late st Contact Info) Description 10/22/2023 Telephone [facility] MEDICINE [address] [place] [address] Rosalind Cardoso FNP [address] [place], [place] [phone] medication request Social History Tobacco Use Types [...] medication for pneumonia stated [place] [facility] [place] to advise of dx documented in this encounter Plan of Treatment Upcoming Encounters Date Type Department Care Team (Late st Contact Info) Description 06/16/2025 10:00 AM EST Telemedicine [facility] MED & PEDS [address] [place] [address] Amira Ayoub, PharmD 230 [place] [address] documented as of this encounter Visit Diagnoses Not on filedocumented in this encounter Additional Health Concerns Assessment Noted Time PHQ-9 Depression Total Score: 0 12/26/19 23 1:09 PM EDT documented as of this encounter Care Teams Fur Scraper Relationship Specialty Start Date End Date Rosalind Cardoso FNP [address] [place] [address] PCP - General Family Medicine 04/28/21 Barron Wetzel MD 100 [facility] 200 [place] [address] Nephrology 01/15/25 Madeline Yo [address] [place] [address] 3rd [place] [address] Cardiology 01/15/25 [employer] 01/05/25 documented as of this encounter
--- OUTSIDE RECORDS SUMMARY | 2025-06-10 13:35 | XMS_ITS | Encounter Summary ---
Author Organization [employer] Address [address] [place] [address] [address] [place] [address] Care Team Providers Care Electrical Estimator Name Role Phone Rosalind Cardoso Primary Care Provider Barron Wetzel MD Unavailable [phone] Madeline Yo Unavailable Encounter Details Date Type Department Care Team ([facility] Contact Info) Description 10/19/2022 Telephone [facility] MEDICINE [address] [place] [address] Rosalind Cardoso FNP [address] [place] [address] Social History Tobacco Use Types Packs/Day Years [...] Team ([facility] Contact Info) Description 06/16/2025 10:00 AM EST Telemedicine [facility] MED & PEDS 505 [place] [address] Amira Ayoub PharmD 230 [place] [address] documented as of this encounter Visit Diagnoses Not on filedocumented in this encounter Care Teams Electrical Estimator Relationship Specialty Start Date End Date Rosalind Cardoso FNP [address] [place] [address] PCP - General Family Medicine 04/28/21 Barron Wetzel MD [address] [address] Nephrology 01/15/25 Madeline Yo [address] 3rd [place] [address] Cardiology 01/15/25 [employer] 01/05/25 documented as of this encounter
--- OUTSIDE RECORDS SUMMARY | 2025-06-10 13:35 | XMS_ITS | Encounter Summary ---
Author Organization [employer] Address [address] [place] [address] 7 [place] [address] Care Team Providers Care Circus Hand Name Role Phone Rosalind Cardoso Primary Care Provider [phone] Barron Wetzel MD Unavailable [phone] Madeline Yo Unavailable Reason for Visit * Reason Onset Date Comments Results 10/29/2023 Encounter Details Date Type Department Care Team (Late st Contact Info) Description 10/29/2023 Telephone [facility] MEDICINE [address] [place] [address] Rosalind Cardoso FNP [address] [place], [place] [phone] Results Social History Tobacco Use Types Packs/Day Years Used Date Smoking Tobacco: Never Smokeless Tobacco: Never Alcohol Use Standard Drinks/Week Comments Never 0 (1 standard drink = 0.6 oz pur e alcohol) Depression Answer Date Recorded Patient Health Questionnaire-9 Score 0 12/25/2022 Housing Stability Answer Date Recorded What is your housing situation today? I have lebertrosemarie metz 04/25/[address] you [...] 10:00 AM EST Telemedicine [facility] MED & PEDS [address] [place] [address] Amira Ayoub PharmD 230 [place] [address] documented as of this encounter Visit Diagnoses Not on filedocumented in this encounter Additional Health Concerns Assessment Noted Time PHQ-9 Depression Total Score: 0 12/26/19 1:09 PM EDT documented as of this encounter Care Teams Circus Hand Relationship Specialty Start Date End Date Rosalind Cardoso FNP 230 [place] [address] PCP - General Family Medicine 04/28/21 Barron Wetzel MD 100 [facility] 200 [place] [phone] Nephrology 01/15/25 Madeline Yo [address] [place] [address] Drive 3rd [place] [address] Cardiology 01/15/25 [employer] 01/05/25 documented as of this encounter
--- OUTSIDE RECORDS SUMMARY | 2025-06-10 13:36 | XMS_ITS | Encounter Summary ---
Author Organization [employer] Address [address] [place] [address] 7 [place] [address] Care Team Providers Care Gantry Crane Operator Name Role Phone Rosalind Cardoso Primary Care Provider [phone] Barron Wetzel MD Unavailable [phone] Madeline Yo Unavailable Encounter Details Date Type Department Care Team (Late st Contact Info) Description 12/27/2023 Orders Only [facility] MEDICINE [address] [place] [address] Rosalind Cardoso FNP [address] [place], [place] [phone] Type 2 diabetes mellitus with stage 3 [...] 10:00 AM EST Telemedicine [facility] MED & PEDS [address] [place] [address] Amira Ayoub, PharmD 230 [place] [address] documented as of this encounter Procedures Procedure Name Priority Date/Time Associated Diagnosis Comments PROTHROMBIN TIME-INR Routine 12/27/2023 9:33 AM EDT Type 2 diabetes mellitus with stage 3 chronic kidney disease, with long-term current use of insulin, unspecified whether stage 3a or 3b CKD ([facility]) Myalgia documented in this encounter Results * Prothrombin Time-INR (12/27/2023 9:33 AM EDT) Prothrombin Time 11.5 11.1 - 13.3 SEC [facility] INTERNATIONAL NORM RATIO 0.9 0.9 - 1.1 [facility] Comment:INTERNATIONAL NORMAL IZED RATIO (INR) [...] LAB BLOOD ORDERABLES Final Res ult [facility] [address] [place] [address] [phone] documented in this encounter Visit Diagnoses [...] documented as of this encounter Care Teams Gantry Crane Operator Relationship Specialty Start Date End Date Rosalind Cardoso FNP [address] [place] [address] PCP - General Family Medicine 04/28/21 Barron Wetzel MD 100 [facility] 200 [place] [address] Nephrology 01/15/25 Madeline Yo [address] [place] [address] 3rd [place] [address] Cardiology 01/15/25 [employer] 01/05/25 documented as of this encounter
--- OUTSIDE RECORDS SUMMARY | 2025-06-10 13:36 | XMS_ITS | Encounter Summary ---
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) Rosalind Cardoso FNP [address] [place] [address] Phone: tel: fax: [facility] Referral ID Status Reason Start Date Expiration Date V isits Requested Visits Authorized [id number] Closed Specialty Services Required 11/28/2023 11/27/2024 1 1 * Consultation (Routine) - Closed Specialty Diagnoses / Procedures Referred By Anthony reyes Referred To Contact Physical Therapy Diagnoses Cervicalgia Fibromyalgia 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) Rosalind Cardoso FNP [address] [place] [address] Phone: tel: fax: [facility] [address] [place] [address] Phone: tel: fax: Referral ID Status Reason Start Date Expiration Date V isits Requested Visits Authorized [id number] Closed Specialty Services Required 11/28/2023 11/27/2024 1 1 Reason for Visit * Reason Onset Date Comments Referral 11/25/2023 Results 11/25/2023 Encounter Details Date Type Department Care Team ([facility] st Contact Info) Description 11/25/2023 Telephone [facility] CHC MED & PEDS [address] [place] [address] Rosalind Cardoso FNP 505 [place] [address] Referral; Results Social History Tobacco Use Types [...] lisinopril, 10 mg starting last month by assistant community director along with continuing furosemide, 80 mg. Pt is also requesting new referral to [facility] and full body massage respectively. Originally was written by [facility] [place] [facility] [place] pt was unable to go due to being sick and leg swelling. Called [facility] at [phone], spoke to Stella and confirmed a referral was sent and another needs to be sent so insurance cancover it. Their fax is [phone]. Also called [facility] and got their fax number which is [phone]. Pt is also waiting for results of US done on kidney at [facility] [place]. Advised that results may take [...] referral : DATE: n/a TIME: n/a Address: [address] [place] [address] Visits: n/a Facility Name: [facility] Type of Specialist: Acupuncture DX: amputation and Fibromyalgia Phone # : [phone] Fax #: n/a TC from pt requesting call back regarding Results. Type of results: labs Date when done: 11/19 Facility: [facility] Pt is also calling to advise provider assistant community director increased dosage of furosemide (Lasix) 20 MG tablet to 80 mg. Advise to continue medication for a week and do blood work by end of this week. Pt will also be receiving prosthetic leg in about a week or so Any questions, contact pt at [phone] documented in this encounter Plan of Treatment Upcoming Encounters Date Type Department Care Team ([facility] st Contact Info) Description 06/16/2025 10:00 AM EST Telemedicine [facility] CH[facility] MED & PEDS [address] [place] [address] Amira Ayoub, PharmD 230 [place] [address] Scheduled Referrals Name Type Priority Associated Diagnoses Order Schedule Referral to Massage Therapy Outpatient Referral Routine Cervicalgia Fibromyalgia History of amputation of left leg through tibia and fibula ([facility]) Expected: 11/28/2023 (Approximate), Expires: 11/27/2024 Referral for Acupuncture Outpatient Referral Routine Cervicalgia Fibromyalgia History of amputation of left leg through tibia and fibula ([facility]) Expected: 11/28/2023 (Approximate), Expires: 11/27/2024 documented as of this encounter Visit Diagnoses Diagnosis Cervicalgia- Primary Fibromyalgia Unspecified myalgia and myositis History of amputation of left leg through tibia and fibula ([facility]) documented in this encounter Additional Health Concerns Assessment Noted Time PHQ-9 Depression Total Score: 0 12/26/19 1:09 PM EDT documented as of this encounter Care Teams Reel Repairer Relationship Specialty Start Date End Date Rosalind Cardoso FNP [address] [place] [address] PCP - General Family Medicine 04/28/21 Barron Wetzel MD 100 [facility] 200 [place] [address] Nephrology 01/15/25 Madeline Yo [address] [place] [address] 3rd [place] [address] Cardiology 01/15/25 [email or web address] 01/05/25 documented as of this encounter
--- OUTSIDE RECORDS SUMMARY | 2025-06-10 13:36 | XMS_ITS | Encounter Summary ---
Author Organization [employer] Address [address] [place] [address] 7 [place] [address] Care Team Providers Care Oil Well Cable Tool Driller Name Role Phone Rosalind Cardoso Primary Care Provider [phone] Barron Wetzel MD Unavailable [phone] Madeline Yo Unavailable Encounter Details Date Type Department Care Team (Late st Contact Info) Description 01/17/2024 Orders Only [facility] CHC MED & PEDS [address] [place], [place] [phone] Rosalind Cardoso FNP 505 [place], [place] [phone] Type 2 diabetes mellitus with stage 3 [...] EST Telemedicine [facility] MED & PEDS [address] [place] [address] Amira Ayoub, PharmD 230 [place] [address] documented as of this encounter Procedures Procedure [...] Protein 0.36 < or = 0.50 mg/dL [facility] Blood Venous blood specimen / Unknown 01/17/2024 12:30 PM EDT 01/17/2024 12:30 PM EDT Rosalind STARKSP LAB BLOOD ORDERABLES Final Res ult Performing Organization Address [facility] Co de Phone Number [facility] [address] [place] [phone] * (ABNORMAL) Sed Rate by Modified Mangoergren (01/17/2024 12:30 PM EDT) Erythrocyte Sedimentation Rate 36(H) 0 - 20 MM/HR [facility] Comment:Patients with polycy themia and many hemoglobin abnormalitiesmay have depressed sed rates whereas patients with anemiamay have elevated sed rates. Blood Venous blood specimen / Unknown 01/17/2024 12:30 PM EDT 01/17/2024 12:30 PM EDT Rosalind MORELOS LAB BLOOD ORDERABLES Final Res ult Performing Organization Address [facility] Co de Phone Number [facility] [address] [place] [phone] documented in this encounter Visit Diagnoses [...] documented as of this encounter Care Teams Oil Well Cable Tool Driller Relationship Specialty Start Date End Date Rosalind Cardoso FNP 230 [place] [address] PCP - General Family Medicine 04/28/21 Barron Wetzel MD 100 [facility] 200 [place] [address] Nephrology 01/15/25 Madeline Yo [address] [place] [address] 3rd [place] [address] Cardiology 01/15/25 [employer] 01/05/25 documented as of this encounter
--- OUTSIDE RECORDS SUMMARY | 2025-06-10 13:36 | XMS_ITS | Encounter Summary ---
Author Organization [employer] Address [address] [place] [address] 7t [place] [address] Care Team Providers Care Lay Midwife Name Role Phone Rosalind Cardoso Primary Care Provider [phone] Barron Wetzel MD Unavailable [phone] Madeline Yo Unavailable Reason for Visit * Reason Onset Date Comments Durable Medical Equipment 12/06/2022 Encounter Details Date Type Department Care Team (Late st Contact Info) Description 12/06/[address] [facility] MEDICINE [address] [place] [address] Rosalind Cardoso FNP [address] [place], [place] [phone] Durable Medical Equipment Social History Tobacco Use [...] For more clarification, please contact pt at [phone] documented in this encounter Plan of Treatment Upcoming Encounters Date Type Department Care Team (Late st Contact Info) Description 06/16/2025 10:00 AM EST Telemedicine [facility] MED & PEDS [address] [place] [address] Amira Ayoub PharmD 230 [place] [address] documented as of this encounter Visit Diagnoses Not on filedocumented in this encounter Care Teams Lay Midwife Relationship Specialty Start Date End Date Rosalind Cardoso FNP 230 [place] [address] PCP - General Family Medicine 04/28/21 Barron Wetzel MD 100 [facility] 200 [place] [address] Nephrology 01/15/25 Madeline Yo [address] [place] [address] Drive 3rd [place] [address] Cardiology 01/15/25 [employer] 01/05/25 documented as of this encounter
--- OUTSIDE RECORDS SUMMARY | 2025-06-10 13:36 | XMS_ITS | Encounter Summary ---
Author Organization [employer] Address [address] [place] [address] 7 [place] [address] Care Team Providers Care Radiologic Technologist Mammogram Name Role Phone Rosalind Cardoso Primary Care Provider [phone] Barron Wetzel MD Unavailable [phone] Madeline Yo Unavailable Encounter Details Date Type Department Care Team (Late st Contact Info) Description 11/29/2023 Orders Only [facility] MEDICINE [address] [place] [address] Rosalind Cardoso FNP [address] [place], [place] [phone] Type 2 diabetes mellitus with stage 3 [...] [facility] [address] [place] [address] Amira Ayoub, PharmD 230 [place] [address] documented as of this encounter Procedures Procedure [...] PM EDT Narrative 12/27/2023 3:26 PM EDT [facility] [address] [place], [place] [address] Mammography Report Signed Patient: Mitra Parish MR#: [id number] : 1965 Acct:[id number] Age/Sex: 58 / F ADM Date: 11/29/23 Loc: HO.MAMMO Attending Dr: Rosalind MORELSO Ordering Physician: Rosalind Cardoso Results: 1Negat aiden Date of Service: 11/29/23 Follow Up: 1 Year From Orig ina Mammogram Procedure(s): MM tomosynthesis screening BI Accession Number(s): [id number] cc: Rosalind Cardoso EXAMINATION: MM SCREENING DIGITAL [...] in OV> 12/27/23 1522 DD/ 1440 TD/TT: Fitness Sales Consultant: Procedure Note Donotuseinterpreter, Image - 12/27/2023 Caesar [facility] [address] [place] [address] Mammography Report Signed Patient: Dany Parish#: [id number] : 1965Acct:[id number] Age/Sex: 58 / FADM Date: 11/29/23 Loc: HO.MAMMO Attending Dr: Rosalind MORELOS Ordering Physician: Rosalind CardosoPResults: 1Negat aiden Date of Service: 11/29/23Follow Up: 1 Year From [facility] Mammogram Procedure(s): MM tomosynthesis screening BI Accession Number(s): [id number] cc: Rosalind Cardoso EXAMINATION: MM SCREENING DIGITAL [...] in OV> 12/27/23 1522 DD/ 1440 TD/TT: Fitness Sales Consultant: us Rosalind Cardoso FINISHING SUPERVISOR PLASTIC SHEETS IMG BI PROCEDURES Final Result * (ABNORMAL) Sed Rate by Modified Marlene (11/29/2023 1:21 PM EDT) Erythrocyte Sedimentation Rate 30(H) 0 - 20 MM/HR [facility] Comment:Patients with polycy themia and many hemoglobin abnormalitiesmay have depressed sed rates whereas patients with anemiamay have elevated sed rates. Blood Venous blood specimen / Unknown 11/29/2023 1:21 PM EDT 11/29/2023 1:21 PM EDT Rosalind Phalen FINISHING SUPERVISOR PLASTIC SHEETS LAB BLOOD ORDERABLES Final Res ult Performing Organization Address [facility] Co de Phone Number [facility] [address] [place] [phone] * C-reactive Protein (11/29/2023 1:21 PM EDT) C Reactive Protein 0.34 < or = 0.50 mg/dL [facility] Blood Venous blood specimen / Unknown 11/29/2023 1:21 PM EDT 11/29/2023 1:21 PM EDT Rosalind Phalen FINISHING SUPERVISOR P[employer]IC SHEETS LAB BLOOD ORDERABLES Final Res ult Performing Organization Address City/[facility]/ZIP Co de Phone Number [facility] [address] [place] [phone] * Magnesium (11/29/2023 1:21 PM EDT) Pathologist [facility] Magnesium 1.8 1.6 - 2.6 mg/dL [facility] Blood Venous blood specimen / Unknown 11/29/2023 1:21 PM EDT 11/29/2023 1:[address] [facility] [facility] LAB BLOOD ORDERABLES Final Res ult Performing Organization Address [facility]/ZIP Co de Phone Number [facility] [address] [place] [phone] * Prothrombin Time-INR (11/29/2023 1:21 PM EDT) [facility] Prothrombin Time 11.8 11.1 - 13.3 SEC [facility] INTERNATIONAL NORM RATIO 1.0 0.9 - 1.1 [facility] Comment:INTERNATIONAL NORMAL IZED RATIO [...] PM EDT 11/29/2023 1:21 PM EDT Rosalind [facility] LAB BLOOD ORDERABLES Final Res ult Performing Organization Address [facility]/ZIP Co de Phone Number [facility] [address] [place] [phone] * (ABNORMAL) Comprehensive Metabolic Panel (11/29/2023 1:21 PM EDT) [facility] Sodium 140 135 - 145 mmol/L [facility] Potassium 3.6 3.3 - 5.1 mmol/L [facility] Chloride 103 96 - 108 mmol/L [facility] Carbon Dioxide 28 22 - 29 mmol/L [facility] Anion Gap 13 12 - 20 [facility] Urea Nitrogen (BUN) 23(H) 9 - 16 mg/dL [facility] Creatinine, Serum 1.06 0.5 - 1.4 mg/dL [facility] Estimated Glomerular Filt Rate 53 [facility] Comment:NOTE: For -Am erican individuals, multiply the result by 1.210.Chronic Kidney Disease: Estimated GFR < 60 mL/min/[id number] Kidney Disease: Estimated GFR < 15 mL/min/1.73m2 Glucose 165(H) 60 - 115 mg/dL [facility] Calcium 9.5 8.4 - 10.2 mg/dL [facility] Bilirubin, Total 0.3 0.0 - 1.0 mg/dL [facility] Aspartate Amino Transferase 16 5 - 31 U/L [facility] Alanine Aminotransferase 13 0 - 31 U/L [facility] Total Protein 6.8 6.5 - 8.0 g/dL [facility] Albumin Level 3.3(L) 3.5 - 5.0 g/dL [facility] Alkaline Phosphatase 94 39 - 117 U/L [facility] Blood Venous blood specimen / Unknown 11/29/2023 1:21 PM EDT 11/29/2023 1:21 PM EDT us Rosalind Cardoso FINISHING SUPERVISOR PLASTIC SHEETS LAB BLOOD ORDERABLES Final Res ult [facility] [address] [place] [address] [phone] * (ABNORMAL) CBC auto differential (11/29/2023 1:21 PM EDT) White Blood Count 8.7 4.8 - 10.8 X10*3/uL [facility] Red Blood Count 5.99(H) 4.20 - 5.50 X10*6/uL [facility] Hemoglobin 11.3(L) 12.0 - 16.0 g/dl [facility] Hematocrit 37.5 37.0 - 47.0 % [facility] Mean Corpuscular Volume 62.6(L) 80.0 - 98.0 fL [facility] Mean Corpuscular Hemoglobin 18.9(L) 27.0 - 33.0 pg [facility] Mean Corpuscular HGB Conc 30.1(L) 31.0 - 35.0 g/dl [facility] Red Cell Distribution Width 16.4(H) 11.0 - 16.0 % [facility] Platelet Count 310 160 - 400 X10*3/uL [facility] Mean Platelet Volume 11.1 9.4 - 12.3 fL [facility] Neutrophils Percent Auto 56.2 45 - 73 % [facility] Imm Gran Pct Auto 0.2 0.0 - 0.4 % [facility] Lymphocytes Percent Auto 32.5 20 - 40 % [facility] Monocytes Percent Auto 7.6 2 - 11 % [facility] Eosinophils Percent Auto 2.8 0 - 4 % [facility] Basophils Percent Auto 0.7 0 - 2 % [facility] NRBC Pct Auto 0.0 0.0 - 0.2 /100WBC [facility] Neutrophils Absolute Auto 4.9 2.0 - 8.3 x10*3/uL [facility] Imm Gran Abs Auto 0.02 0.00 - 0.03 X10*3/uL [facility] Lymphocytes Absolute Auto 2.8 1.2 - 4.9 X10*3/uL [facility] Monocytes Absolute Auto 0.7 0.1 - 1.2 X10*3/uL [facility] Eosinophils Absolute Auto 0.2 0.0 - 0.4 X10*3/uL [facility] Basophils Absolute Auto 0.1 0.0 - 0.2 X10*3/uL [facility] NRBC Abs Auto 0.000 0.0 - 0.012 X10*3/uL [facility] Blood Venous blood specimen / Unknown 11/29/2023 1:21 PM EDT 11/29/2023 1:21 PM EDT Rosalind [facility] LAB BLOOD ORDERABLES Final Res ult [facility] [address] [place] [address] [phone] documented in this encounter Visit Diagnoses [...] documented as of this encounter Care Teams Radiologic Technologist Mammogram Relationship Specialty Start Date End Date Rosalind Cardoso FNP [address] [place] [phone] PCP - General Family Medicine 04/28/21 Barron Wetzel MD [address] [phone] Nephrology 01/15/25 Madeline Yo 11 [facility] 3rd [place] [address] Cardiology 01/15/25 [employer] 01/05/25 documented as of this encounter
--- OUTSIDE RECORDS SUMMARY | 2025-06-10 13:36 | XMS_ITS | Encounter Summary ---
Author Organization [employer] Address [address] [place] [address] [address] [address] Care Team Providers Care Pen And Pencil Repairer Name Role Phone Rosalind Cardoso Primary Care Provider [phone] Barron Wetzel MD Unavailable [phone] Madeline Yo Unavailable Reason for Visit * Reason Comments Med Refill Encounter Details Date Type Department Care Team (Late st Contact Info) Description 11/28/2024 Refill [facility]S [address] [place], [place] [phone] Rosalind Cardoso FNP [address] [place], [place] [phone] Type 2 diabetes mellitus with foot ulcer, with long-term current use of insulin ([facility]) Social History Tobacco Use Types [...] the past 12 months, has t he [employer], gas, oil or water company threatened to [...] Info) Description 06/16/2025 10:00 AM EST Telemedicine [facility] [address] [place] [address] Amira Ayoub PharmD 230 [place] [address] documented as of this encounter Visit Diagnoses Diagnosis Type 2 diabetes mellitus with foot ulcer, with long-term current use of insulin (HCC) documented in this encounter Additional Health Concerns Assessment Noted Time PHQ-9 Depression Total Score: 6 08/03/19 25 9:07 AM EST documented as of this encounter Care Teams Pen And Pencil Repairer Relationship Specialty Start Date End Date Rosalind Cardoso FNP 230 [place] [address] PCP - General Family Medicine 04/28/21 Barron Wetzel MD 100 [facility] 200 [place] [phone] Nephrology 01/15/25 Madeline Yo [address] [place] [address] Drive 3rd [place] [address] Cardiology 01/15/25 [employer] 01/05/25 documented as of this encounter
--- OUTSIDE RECORDS SUMMARY | 2025-06-10 13:36 | XMS_ITS | Encounter Summary ---
Author Organization [email or web address] Address [address] [place] [address] 7t [place] [address] Care Team Providers Care Yeast Washer Name Role Phone Rosalind Cardoso Primary Care Provider Barron Wetzel MD Unavailable [phone] Madeline Yo Unavailable Encounter Details Date Type Department Care Team ([facility] Contact Info) Description 11/28/2022 Abstract [facility] MEDICINE [address] [place] [address] Rosalind Cardoso FNP [address] [place], [place] [phone] Social History Tobacco Use Types Packs/Day Years [...] Upcoming Encounters Date Type Department Care Team ([facility] Contact Info) Description 06/16/2025 10:00 AM EST Telemedicine [facility] MED & PEDS 505 [place] [address] Amira Ayoub PharmD 230 [place] [address] documented as of this encounter Visit Diagnoses Not on filedocumented in this encounter Care Teams Yeast Washer Relationship Specialty Start Date End Date Rosalind Cardoso FNP 230 [place] [address] PCP - General Family Medicine 04/28/21 Barron Wetzel MD [address] [address] Nephrology 01/15/25 Madeline Yo [address] 3rd [place] [address] Cardiology 01/15/25 [employer] 01/05/25 documented as of this encounter
--- OUTSIDE RECORDS SUMMARY | 2025-06-10 13:36 | XMS_ITS | Encounter Summary ---
Author Organization [employer] Address [address] [place] [address] 7 [place] [address] Care Team Providers Care Grey Percher Name Role Phone Rosalind Cardoso Primary Care Provider [phone] Barron Wetzel MD Unavailable [phone] Madeline Yo Unavailable Encounter Details Date Type Department Care Team (Late st Contact Info) Description 02/28/2024 Orders Only [facility]S 505 [place], [place] [phone] Rosalind Cardoso FNP 505 [place], [place] [phone] Type 2 diabetes mellitus with stage 3 [...] Info) Description 06/16/2025 10:00 AM EST Telemedicine [facility] MED & PEDS [address] [place] [address] Amira Ayoub PharmD 230 [place] [address] documented as of this encounter Visit Diagnoses [...] documented as of this encounter Care Teams Grey Percher Relationship Specialty Start Date End Date Rosalind Cardoso FNP [address] [place] [address] PCP - General Family Medicine 04/28/21 Barron Wetzel MD 100 [facility] 200 [place] [address] Nephrology 01/15/25 Madeline Yo [address] [place] [address] 3rd [place] [address] Cardiology 01/15/25 [employer] 01/05/25 documented as of this encounter
--- OUTSIDE RECORDS SUMMARY | 2025-06-10 13:36 | XMS_ITS | Encounter Summary ---
Author Organization [employer] Address [address] [place] [address] 7 [place] [address] Care Team Providers Care Chemical Lab Supervisor Name Role Phone Rosalind Cardoso Primary Care Provider [phone] Barron Wetzel MD Unavailable [phone] Madeline Yo Unavailable Encounter Details Date Type Department Care Team (Late st Contact Info) Description 02/14/2024 Orders Only [facility] PEDS 505 [place], [place] [phone] Rosalind Cardoso FNP 505 [place], [place] [phone] Type 2 diabetes mellitus with stage 3 [...] 10:00 AM EST Telemedicine [facility] MED & PEDS [address] [place] [address] Amira Ayoub PharmD 230 [place] [address] documented as of this encounter Visit Diagnoses [...] documented as of this encounter Care Teams Chemical Lab Supervisor Relationship Specialty Start Date End Date Rosalind Cardoso FNP 230 [place] [address] PCP - General Family Medicine 04/28/21 Barron Wetzel MD 100 [facility] 200 [place] [address] Nephrology 01/15/25 Madeline Yo [address] [place] [address] 3rd [place] [address] Cardiology 01/15/25 [employer] 01/05/25 documented as of this encounter
--- OUTSIDE RECORDS SUMMARY | 2025-06-10 13:36 | XMS_ITS | Encounter Summary ---
Author Organization [employer] Address [address] [place] [address] 7 [place] [address] Care Team Providers Care Lime Mixer Name Role Phone Rosalind Cardoso Primary Care Provider [phone] Barron Wetzel MD Unavailable [phone] Madeline Yo Unavailable Encounter Details Date Type Department Care Team (Late st Contact Info) Description 01/31/2024 Orders Only [facility] PEDS [address] [place], [place] [phone] Rosalind Cardoso FNP 505 [place], [place] [phone] Type 2 diabetes mellitus with stage 3 [...] Info) Description 06/16/2025 10:00 AM EST Telemedicine [facility] MED & PEDS [address] [place] [address] Amira Ayoub, PharmD 230 [place] [address] documented as of this encounter Procedures Procedure [...] CENTER/HCC) documented in this encounter Results * (ABNORMAL) Sed Rate by Modified Westergren (05/29/2024 2:18 PM EST) Erythrocyte Sedimentation Rate 71(H) 0 - 20 MM/HR [facility] Comment:Patients with polycy themia and many hemoglobin abnormalitiesmay have depressed sed rates whereas patients with anemiamay have elevated sed rates. Blood Venous blood specimen / Unknown 05/29/2024 2:18 PM EST 05/29/2024 2:18 PM EST Rosalind MORELOS LAB BLOOD ORDERABLES Final Res ult [facility] [address] [place] [address] [phone] documented in this encounter Visit Diagnoses [...] documented as of this encounter Care Teams Lime Mixer Relationship Specialty Start Date End Date Rosalind Cardoso FNP 230 [place] [address] PCP - General Family Medicine 04/28/21 Barron Wetzel MD 100 [facility] 200 [place] [address] Nephrology 01/15/25 Madeline Yo [address] [place] [address] 3rd [place] [address] Cardiology 01/15/25 [employer] 01/05/25 documented as of this encounter
--- OUTSIDE RECORDS SUMMARY | 2025-06-10 13:36 | XMS_ITS | Encounter Summary ---
Author Organization [employer] Address [address] [place] [address] 7 [place] [address] Care Team Providers Care Antenna Design Engineer Name Role Phone Rosalind Cardoso Primary Care Provider [phone] Barron Wetzel MD Unavailable [phone] Madeline Yo Unavailable Encounter Details Date Type Department Care Team (Late st Contact Info) Description 01/03/2024 Orders Only [facility]EDS 505 [place], [place] [phone] Rosalind Cardoso FNP 505 [place], [place] [phone] Type 2 diabetes mellitus with stage 3 [...] Info) Description 06/16/2025 10:00 AM EST Telemedicine 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 ([facility]) documented in this encounter Results * Magnesium (01/17/2024 12:30 PM EDT) Magnesium 2.4 1.6 - 2.6 mg/dL [facility] Blood Venous blood specimen / Unknown 01/17/2024 12:30 PM EDT 01/17/2024 12:30 PM EDT us Rosalind Cardoso LEARNING SOLUTIONS SPECIALIST LAB BLOOD ORDERABLES Final Res ult [facility] [address] [place] [phone] * (ABNORMAL) Comprehensive Metabolic Panel (01/17/2024 12:30 PM EDT) Sodium 141 135 - 145 mmol/L [facility] Potassium 4.2 3.3 - 5.1 mmol/L [facility] Chloride 106 96 - 108 mmol/L [facility] Carbon Dioxide 26 22 - 29 mmol/L [facility] Anion Gap 13 12 - 20 [facility] Urea Nitrogen (BUN) 30(H) 9 - 16 mg/dL [facility] Creatinine, Serum 1.24 0.5 - 1.4 mg/dL [facility] Estimated Glomerular Filt Rate 44 [facility] Comment:NOTE: For -Am erican individuals, multiply the result by 1.210.Chronic Kidney Disease: Estimated GFR < 60 mL/min/[id number] Kidney Disease: Estimated GFR < 15 mL/min/1.73m2 Glucose 165(H) 60 - 115 mg/dL [facility] Calcium 9.7 8.4 - 10.2 mg/dL [facility] Bilirubin, Total 0.4 0.0 - 1.0 mg/dL [facility] Aspartate Amino Transferase 14 5 - 31 U/L [facility] Alanine Aminotransferase 14 0 - 31 U/L [facility] Total Protein 6.8 6.5 - 8.0 g/dL [facility] Albumin Level 3.5 3.5 - 5.0 g/dL [facility] Alkaline Phosphatase 79 39 - 117 U/L [facility] Blood Venous blood specimen / Unknown 01/17/2024 12:30 PM EDT 01/17/2024 12:30 PM EDT us Rosalind Cardoso LEARNING SOLUTIONS SPECIALIST LAB BLOOD ORDERABLES Final Res ult [facility] [address] [place] [address] [phone] * (ABNORMAL) CBC auto differential (01/17/2024 12:30 PM EDT) White Blood Count 8.3 4.8 - 10.8 X10*3/uL [facility] Red Blood Count 4.91 4.20 - 5.50 X10*6/uL [facility] Hemoglobin 9.4(L) 12.0 - 16.0 g/dl [facility] Hematocrit 30.6(L) 37.0 - 47.0 % [facility] Mean Corpuscular Volume 62.3(L) 80.0 - 98.0 fL [facility] Mean Corpuscular Hemoglobin 19.1(L) 27.0 - 33.0 pg [facility] Mean Corpuscular HGB Conc 30.7(L) 31.0 - 35.0 g/dl [facility] Red Cell Distribution Width 20.2(H) 11.0 - 16.0 % [facility] Platelet Count 302 160 - 400 X10*3/uL [facility] Mean Platelet Volume 10.6 9.4 - 12.3 fL [facility] Neutrophils Percent Auto 64.0 45 - 73 % [facility] Imm Gran Pct Auto 0.5(H) 0.0 - 0.4 % [facility] Lymphocytes Percent Auto 24.0 20 - 40 % [facility] Monocytes Percent Auto 8.2 2 - 11 % [facility] Eosinophils Percent Auto 2.9 0 - 4 % [facility] Basophils Percent Auto 0.4 0 - 2 % [facility] NRBC Pct Auto 0.0 0.0 - 0.2 /100WBC [facility] Neutrophils Absolute Auto 5.3 2.0 - 8.3 x10*3/uL [facility] Imm Gran Abs Auto 0.04(H) 0.00 - 0.03 X10*3/uL [facility] Lymphocytes Absolute Auto 2.0 1.2 - 4.9 X10*3/uL [facility] Monocytes Absolute Auto 0.7 0.1 - 1.2 X10*3/uL [facility] Eosinophils Absolute Auto 0.2 0.0 - 0.4 X10*3/uL [facility] Basophils Absolute Auto 0.0 0.0 - 0.2 X10*3/uL [facility] NRBC Abs Auto 0.000 0.0 - 0.012 X10*3/uL [facility] Blood Venous blood specimen / Unknown 01/17/2024 12:30 PM EDT 01/17/2024 12:30 PM EDT us Rosalind Cardoso LEARNING SOLUTIONS SPECIALIST LAB BLOOD ORDERABLES Final Res ult [facility] [address] [place] [phone] [phone] documented in this encounter [...] documented as of this encounter Care Teams Antenna Design Engineer Relationship Specialty Start Date End Date Rosalind Cardoso FNP 230 [place] [address] PCP - General Family Medicine 04/28/21 Barron Wetzel MD [address] [facility] 200 [place] [address] Nephrology 01/15/25 Madeline Yo [address] [place] [address] 3rd [place] [address] Cardiology 01/15/25 [email or web address] 01/05/25 documented as of this encounter
--- OUTSIDE RECORDS SUMMARY | 2025-06-10 13:36 | XMS_ITS | Encounter Summary ---
Author Organization [employer] Address [address] [place] [address] 7 [place] [address] Care Team Providers Care Ed Special Education Teacher Name Role Phone Rosalind Cardoso Primary Care Provider [phone] Barron Wetzel MD Unavailable [phone] Madeline Yo Unavailable Encounter Details Date Type Department Care Team (Late st Contact Info) Description 02/07/2024 Orders Only [facility] MEDICINE [address] [place] [address] Rosalind Cardoso FNP [address] [place], [place] [phone] Type 2 diabetes mellitus with stage 3 [...] Info) Description 06/16/2025 10:00 AM EST Telemedicine [facility] MED & PEDS [address] [place] [address] Amira Ayoub PharmD 230 [place] [address] documented as of this encounter Visit Diagnoses [...] documented as of this encounter Care Teams Ed Special Education Teacher Relationship Specialty Start Date End Date Rosalind Cardoso FNP [address] [place] [address] PCP - General Family Medicine 04/28/21 Barron Wetzel MD 100 [facility] 200 [place] [address] Nephrology 01/15/25 Madeline Yo [address] 3rd [place] [address] Cardiology 01/15/25 Language Learning Class 01/05/25 documented as of this encounter
--- OUTSIDE RECORDS SUMMARY | 2025-06-10 13:36 | XMS_ITS | Encounter Summary ---
Author Organization [employer] Address [address] [place] [address] 7 [place] [address] Care Team Providers Care Stenographic Court Reporter Name Role Phone Rosalind Cardoso Primary Care Provider [phone] Barron Wetzel MD Unavailable [phone] Madeline Yo Unavailable Encounter Details Date Type Department Care Team (Late st Contact Info) Description 12/13/2023 Orders Only [facility] [address] [place] [address] Rosalind Cardoso FNP [address] [place], [place] [phone] Type 2 diabetes mellitus with stage 3 [...] Info) Description 06/16/2025 10:00 AM EST Telemedicine [facility] [address] [place] [address] mAira Ayoub, PharmD [address] [place] [address] documented as of this encounter Procedures Procedure Name Priority Date/Time Associated Diagnosis Comments CBC WITH AUTO DIFFERENTIAL Routine 12/13/2023 8:52 AM EDT Type 2 diabetes mellitus with stage 3 chronic kidney disease, with long-term current use of insulin, unspecified whether stage 3a or 3b CKD ([facility]) Myalgia B TYPE NATRIURETIC PEPTIDE (BNP) Routine 12/13/2023 8:52 AM EDT Type 2 diabetes mellitus with stage 3 chronic kidney disease, with long-term current use of insulin, unspecified whether stage 3a or 3b CKD (CMS/HCC) documented in this encounter Results * (ABNORMAL) B Type Natriuretic Peptide (BNP) (12/13/2023 8:52 AM EDT) B Type Natriuretic Peptide 1,216(H) <100 pg/mL [facility] Comment:For those patients w ho are being treated with Natrecor(nesiritide, recombinant BNP), BNP testing should beperformed at least two hours post treatment in order toensure that only endogenous levels of BNP are detected. 12/13/2023 8:52 AM EDT 12/13/2023 8:52 AM EDT us Generic External Data Provider LAB BLOOD ORDERAB LES Final Result [facility] [address] [place] [address] [phone] * (ABNORMAL) CBC auto differential (12/13/2023 8:52 AM EDT) White Blood Count 9.1 4.8 - 10.8 X10*3/uL [facility] Red Blood Count 6.02(H) 4.20 - 5.50 X10*6/uL [facility] Hemoglobin 11.4(L) 12.0 - 16.0 g/dl [facility] Hematocrit 37.7 37.0 - 47.0 % [facility] Mean Corpuscular Volume 62.6(L) 80.0 - 98.0 fL [facility] Mean Corpuscular Hemoglobin 18.9(L) 27.0 - 33.0 pg [facility] Mean Corpuscular HGB Conc 30.2(L) 31.0 - 35.0 g/dl [facility] Red Cell Distribution Width 17.2(H) 11.0 - 16.0 % [facility] Platelet Count 285 160 - 400 X10*3/uL [facility] Mean Platelet Volume 10.8 9.4 - 12.3 fL [facility] Neutrophils Percent Auto 51.6 45 - 73 % [facility] Imm Gran Pct Auto 0.4 0.0 - 0.4 % [facility] Lymphocytes Percent Auto 36.9 20 - 40 % [facility] Monocytes Percent Auto 7.7 2 - 11 % [facility] Eosinophils Percent Auto 2.8 0 - 4 % [facility] Basophils Percent Auto 0.6 0 - 2 % [facility] NRBC Pct Auto 0.0 0.0 - 0.2 /100WBC [facility] Neutrophils Absolute Auto 4.7 2.0 - 8.3 x10*3/uL [facility] Imm Gran Abs Auto 0.04(H) 0.00 - 0.03 X10*3/uL [facility] Lymphocytes Absolute Auto 3.3 1.2 - 4.9 X10*3/uL [facility] Monocytes Absolute Auto 0.7 0.1 - 1.2 X10*3/uL [facility] [...] Final Res ult [facility] [address] [place] [address] [phone] documented in this encounter Visit Diagnoses [...] documented as of this encounter Care Teams Stenographic Court Reporter Relationship Specialty Start Date End Date Rosalind Cardoso FNP [address] [place] [address] PCP - General Family Medicine 04/28/21 Barron Wetzel MD [address] [place] [address] Nephrology 01/15/25 Madeline Yo [address] [place] [address] 3rd [place] [address] Cardiology 01/15/25 [employer] 01/05/25 documented as of this encounter
--- OUTSIDE RECORDS SUMMARY | 2025-06-10 13:36 | XMS_ITS | Encounter Summary ---
Author Organization [employer] Address [address] [place] [address] 7 [place] [address] Care Team Providers Care Senior Mainframe Programmer Analyst Name Role Phone Rosalind Cardoso Primary Care Provider [phone] Barron Wetzel MD Unavailable [phone] Madeline Yo Unavailable Encounter Details Date Type Department Care Team (Late st Contact Info) Description 01/24/2024 Orders Only [facility] [address] [place] [address] Rosalind Cardoso FNP [address] [place], [place] [phone] Type 2 diabetes mellitus with stage 3 [...] 06/16/2025 10:00 AM EST Telemedicine [facility] [address] [place] [address] Amira Ayoub, PharmD [address] [place] [address] documented as of this encounter Procedures Procedure Name Priority Date/Time Associated Diagnosis Comments PROTHROMBIN TIME-INR Routine 05/29/2024 2:18 PM EST Type 2 diabetes mellitus with stage 3 chronic kidney disease, with long-term current use of insulin, unspecified whether stage 3a or 3b CKD ([facility]/HCC) Myalgia MAGNESIUM Routine 05/29/2024 2:18 PM EST Type 2 diabetes mellitus with stage 3 chronic kidney disease, with long-term current use of insulin, unspecified whether stage 3a or 3b CKD (CMS/HCC) Myalgia documented in this encounter Results * Magnesium (05/29/2024 2:18 PM EST) Magnesium 2.0 1.6 - 2.6 mg/dL [facility] Blood Venous blood specimen / Unknown 05/29/2024 2:18 PM EST 05/29/2024 2:18 PM EST Rosalind Cardsoo [facility] LAB BLOOD ORDERABLES Final Res ult Performing Organization Address [facility]/ZIP Co de Phone Number [facility] [address] [place] [address] [phone] * Prothrombin Time-INR (05/29/2024 2:18 PM EST) Prothrombin Time 11.1 10.9 - 12.4 SEC [facility] INTERNATIONAL NORM RATIO 1.0 0.9 - 1.1 [facility] Comment:INTERNATIONAL NORMAL IZED RATIO (INR) REFERENCE [...] EST 05/29/2024 2:18 PM EST Rosalind Cardoso [facility] LAB BLOOD ORDERABLES Final Res ult Performing Organization Address [facility] Co de Phone Number [facility] [address] [place] [address] [phone] documented in this encounter Visit Diagnoses [...] as of this encounter Care Teams Senior Mainframe Programmer Analyst Relationship Specialty Start Date End Date Rosalind Cardoso FNP [address] [place] [address] PCP - General Family Medicine 04/28/21 Barron Wetzel MD 100 [facility] 200 [place] [address] Nephrology 01/15/25 Madeline Yo [address] [place] [address] 3rd [place] [address] Cardiology 01/15/25 [employer] 01/05/25 documented as of this encounter
--- OUTSIDE RECORDS SUMMARY | 2025-06-10 13:36 | XMS_ITS | Encounter Summary ---
Author Organization [employer] Address [address] [place] [address] 7 [place] [address] Care Team Providers Care Mc Kay Machine Operator Name Role Phone Rosalind Cardoso Primary Care Provider [phone] Barron Wetzel MD Unavailable [phone] Madeline Yo Unavailable Encounter Details Date Type Department Care Team (Late st Contact Info) Description 01/10/2024 Orders Only [facility] [address] [place] [address] Rosalind Cardoso FNP [address] [place], [place] [phone] Type 2 diabetes mellitus with stage 3 [...] [facility] [address] [place] [address] Amira Ayoub, PharmD [address] [place] [address] documented as of this encounter Procedures Procedure Name Priority Date/Time Associated Diagnosis Comments PROTHROMBIN TIME-INR Routine 01/17/2024 12:30 PM EDT Type 2 diabetes mellitus with stage 3 chronic kidney disease, with long-term current use of insulin, unspecified whether stage 3a or 3b CKD ([facility]) Myalgia documented in this encounter Results * Prothrombin Time-INR (01/17/2024 12:30 PM EDT) Prothrombin Time 11.4 11.1 - 13.3 SEC [facility] INTERNATIONAL NORM RATIO 0.9 0.9 - 1.1 [facility] Comment:INTERNATIONAL NORMAL IZED [...] [facility] LAB BLOOD ORDERABLES Final Res ult [facility] [address] [place] [address] [phone] documented in this encounter Visit Diagnoses [...] documented as of this encounter Care Teams Mc Kay Machine Operator Relationship Specialty Start Date End Date Rosalind Cardoso FNP [address] [place] [address] PCP - General Family Medicine 04/28/21 Barron Wetzel MD 100 [facility] 200 [place] [address] Nephrology 01/15/25 Madeline Yo [address] [place] [address] 3rd [place] [address] Cardiology 01/15/25 [employer] 01/05/25 documented as of this encounter
--- OUTSIDE RECORDS SUMMARY | 2025-06-10 13:36 | XMS_ITS | Encounter Summary ---
Author Organization [employer] Address [address] [place] [address] 7 [place] [address] Care Team Providers Care Director Of Consumer Marketing Name Role Phone Rosalind Cardoso Primary Care Provider Barron Wetzel MD Unavailable [phone] Madeline Yo Unavailable Encounter Details Date Type Department Care Team (Late st Contact Info) Description 12/20/2023 Orders Only [facility] [address] [place], [place] [phone] Rosalind Cardoso FNP [address] [place], [place] [phone] Type 2 diabetes mellitus with stage 3 [...] Info) Description 06/16/2025 10:00 AM EST Telemedicine [facility] [address] [place] [address] Amira Ayoub, PharmD [address] [place] [address] documented as of this encounter Procedures Procedure [...] through tibia and fibula ([facility]/HCC) documented in this encounter Results * C-reactive Protein (12/27/2023 9:33 AM EDT) C Reactive Protein 0.46 < or = 0.50 mg/dL [facility] Blood Venous blood specimen / Unknown 12/27/2023 9:33 AM EDT 12/27/2023 9:33 AM EDT us Rosalind Cardsoo DINKEY OPERATOR LAB BLOOD ORDERABLES Final Res ult [facility] [address] [place] [phone] * (ABNORMAL) Sed Rate by Modified Javierren (12/27/2023 9:33 AM EDT) Erythrocyte Sedimentation Rate 36(H) 0 - 20 MM/HR [facility] Comment:Patients with polycy themia and many hemoglobin abnormalitiesmay have depressed sed rates whereas patients with anemiamay have elevated sed rates. Blood Venous blood specimen / Unknown 12/27/2023 9:33 AM EDT 12/27/2023 9:33 AM EDT Rosalind Cardoso DINKEY OPERATOR LAB BLOOD ORDERABLES Final Res ult Performing Organization Address [facility] Co de Phone Number [facility] [address] [place] [phone] * Magnesium (12/27/2023 9:33 AM EDT) Magnesium 2.2 1.6 - 2.6 mg/dL [facility] Blood Venous blood specimen / Unknown 12/27/2023 9:33 AM EDT 12/27/2023 9:33 AM EDT Rosalind Cardoso DINKEY OPERATOR LAB BLOOD ORDERABLES Final Res ult Performing Organization Address [facility] de Phone Number [facility] [address] [place] [phone] * (ABNORMAL) Comprehensive Metabolic Panel (12/27/2023 9:33 AM EDT) Sodium 141 135 - 145 mmol/L [facility] Potassium 3.8 3.3 - 5.1 mmol/L [facility] Chloride 105 96 - 108 mmol/L [facility] Carbon Dioxide 28 22 - 29 mmol/L [facility] Anion Gap 12 12 - 20 [facility] Urea Nitrogen (BUN) 28(H) 9 - 16 mg/dL [facility] Creatinine, Serum 1.18 0.5 - 1.4 mg/dL [facility] Estimated Glomerular Filt Rate 47 [facility] Comment:NOTE: For -Am erican individuals, multiply the result by 1.210.Chronic Kidney Disease: Estimated GFR < 60 mL/min/1.35a8Qoildd Kidney Disease: Estimated GFR < 15 mL/min/1.73m2 Glucose 206(H) 60 - 115 mg/dL [facility] Calcium 9.3 8.4 - 10.2 mg/dL [facility] Bilirubin, Total 0.3 0.0 - 1.0 mg/dL [facility] Aspartate Amino Transferase 16 5 - 31 U/L [facility] Alanine Aminotransferase 22 0 - 31 U/L [facility] Total Protein 6.8 6.5 - 8.0 g/dL [facility] Albumin Level 3.5 3.5 - 5.0 g/dL [facility] Alkaline Phosphatase 88 39 - 117 U/L [facility] Blood Venous blood specimen / Unknown 12/27/2023 9:33 AM EDT 12/27/2023 9:33 AM EDT us Rosalind Cardoso DINKEY OPERATOR LAB BLOOD ORDERABLES Final Res ult [facility] [address] [place] [phone] * (ABNORMAL) CBC auto differential (12/27/2023 9:33 AM EDT) White Blood Count 9.2 4.8 - 10.8 X10*3/uL [facility] Red Blood Count 5.36 4.20 - 5.50 X10*6/uL [facility] Hemoglobin 10.1(L) 12.0 - 16.0 g/dl [facility] Hematocrit 32.8(L) 37.0 - 47.0 % [facility] Mean Corpuscular Volume 61.2(L) 80.0 - 98.0 fL [facility] Mean Corpuscular Hemoglobin 18.8(L) 27.0 - 33.0 pg [facility] Mean Corpuscular HGB Conc 30.8(L) 31.0 - 35.0 g/dl [facility] Red Cell Distribution Width 17.0(H) 11.0 - 16.0 % [facility] Platelet Count 292 160 - 400 X10*3/uL [facility] Mean Platelet Volume 11.0 9.4 - 12.3 fL [facility] Neutrophils Percent Auto 59.0 45 - 73 % [facility] Imm Gran Pct Auto 0.3 0.0 - 0.4 % [facility] Lymphocytes Percent Auto 28.1 20 - 40 % [facility] Monocytes Percent Auto 8.8 2 - 11 % [facility] Eosinophils Percent Auto 3.1 0 - 4 % [facility] Basophils Percent Auto 0.7 0 - 2 % [facility] NRBC Pct Auto 0.0 0.0 - 0.2 /100WBC [facility] Neutrophils Absolute Auto 5.4 2.0 - 8.3 x10*3/uL [facility] Imm Gran Abs Auto 0.03 0.00 - 0.03 X10*3/uL [facility] Lymphocytes Absolute Auto 2.6 1.2 - 4.9 X10*3/uL [facility] Monocytes Absolute Auto 0.8 0.1 - 1.2 X10*3/uL [facility] Eosinophils Absolute Auto 0.3 0.0 - 0.4 X10*3/uL [facility] Basophils Absolute Auto 0.1 0.0 - 0.2 X10*3/uL [facility] NRBC Abs Auto 0.000 0.0 - 0.012 X10*3/uL [facility] Blood Venous blood specimen / Unknown 12/27/2023 9:33 AM EDT 12/27/2023 9:33 AM EDT us Rosalind Cardoso DINKEY OPERATOR LAB BLOOD ORDERABLES Final Res ult [facility] [address] [place] [phone] documented in this encounter Visit Diagnoses [...] of this encounter Care Teams Director Of Consumer Marketing Relationship Specialty Start Date End Date Rosalind Cardoso FNP [address] [place] [address] PCP - General Family Medicine 04/28/21 Barron Wetzel MD 100 [facility] [address] [place] [address] Nephrology 01/15/25 Madeline Yo [address] [place] [address] 3rd [place] [address] Cardiology 01/15/25 [employer] 01/05/25 documented as of this encounter
--- OUTSIDE RECORDS SUMMARY | 2025-06-10 13:36 | XMS_ITS | Encounter Summary ---
Author Organization [employer] Address [address] [place] [address] 7t [place] [address] Care Team Providers Care Livestock Yard Supervisor Name Role Phone Rosalind Cardoso Primary Care Provider [phone] Barron Wetzel MD Unavailable [phone] Madeline oY Unavailable Reason for Visit * Reason Onset Date Comments Durable Medical Equipment 10/23/2022 Encounter Details Date Type Department Care Team (Late st Contact Info) Description 10/23/2022 Telephone [facility] [address] [place] [address] Rosalind Cardoso FNP [address] [place], [place] [phone] Durable Medical Equipment Social History Tobacco Use [...] for walker was already sent to healthcare advisory services manager and pt notified. * Telephone Encounter - Franc Talley - 10/23/2022 2:25 PM EDT Tc from pt requesting a regular Walker for physical therapy program. Pt states that she needs the regular walker with the two wheels in the front and not seat. Please contact pt at [phone] documented in this encounter Plan of Treatment Upcoming Encounters Date Type Department Care Team (Late st Contact Info) Description 06/16/2025 10:00 AM EST Telemedicine [facility] [address] [place] [address] Amira Ayoub PharmD [address] [place] [address] documented as of this encounter Visit Diagnoses Not on filedocumented in this encounter Care Teams Livestock Yard Supervisor Relationship Specialty Start Date End Date Rosalind Cardoso FNP [address] [place] [address] PCP - General Family Medicine 04/28/21 Barron Wetzel MD 100 [facility] 200 [place] [address] Nephrology 01/15/25 Madeline Yo [address] [place] [address] [address] [place] [address] Cardiology 01/15/25 [employer] 01/05/25 documented as of this encounter
--- OUTSIDE RECORDS SUMMARY | 2025-06-10 13:36 | XMS_ITS | Encounter Summary ---
Author Organization [employer] Address [address] [place] [address] 7 [place] [address] Care Team Providers Care Industrial Hygienist Name Role Phone Rosalind Cardoso Primary Care Provider [phone] Barron Wetzel MD Unavailable [phone] Madeline Yo Unavailable Encounter Details Date Type Department Care Team (Late st Contact Info) Description 12/27/2022 Abstract [facility] [address] [place] [address] Rosalind Cardoso FNP [address] [place], [place] [phone] Social History Tobacco Use Types Packs/Day Years [...] Info) Description 06/16/2025 10:00 AM EST Telemedicine [facility] [address] [place] [address] Amira Ayoub PharmD [address] [place] [address] documented as of this encounter Procedures Procedure [...] as of this encounter Care Teams Industrial Hygienist Relationship Specialty Start Date End Date Rosalind Cardoso FNP [address] [place] [address] PCP - General Family Medicine 04/28/21 Barron Wetzel MD 100 [facility] 200 [place] [address] Nephrology 01/15/25 Madeline Yo [address] [facility] [address] 3rd [place] [address] Cardiology 01/15/25 [email or web address] 01/05/25 documented as of this encounter
--- OUTSIDE RECORDS SUMMARY | 2025-06-10 13:36 | XMS_ITS | Encounter Summary ---
Author Organization [employer] Address [address] [place] [address] 7 [place] [address] Care Team Providers Care Circular Clerk Name Role Phone Rosalind Cardoso Primary Care Provider [phone] Barron Wetzel MD Unavailable [phone] Madeline Yo Unavailable Encounter Details Date Type Department Care Team (Late st Contact Info) Description 11/01/2023 Orders Only [facility] MEDICINE [address] [place] [address] Rosalind Cardoso FNP [address] [place], [place] [phone] Type 2 diabetes mellitus with stage 3 [...] Info) Description 06/16/2025 10:00 AM EST Telemedicine [facility] MED & PEDS 505 [place] [address] Amira Ayoub, PharmD 230 [place] [address] documented as of this encounter Procedures Procedure [...] or 3b CKD ([facility]) Myalgia MAGNESIUM Routine 11/01/2023 3:53 PM EDT Type 2 diabetes mellitus with stage 3 chronic kidney disease, with long-term current use of insulin, unspecified whether stage 3a or 3b CKD ([facility]) Myalgia COMPREHENSIVE METABOLIC PANEL Routine 11/01/2023 3:53 PM EDT Type 2 diabetes mellitus with stage 3 chronic kidney disease, with long-term current use of insulin, unspecified whether stage 3a or 3b CKD ([facility]) Myalgia documented in this encounter Results * (ABNORMAL) CBC auto differential (11/01/2023 3:58 PM EDT) White Blood Count 10.2 4.8 - 10.8 X10*3/uL [facility] Red Blood Count 5.64(H) 4.20 - 5.50 X10*6/uL [facility] Hemoglobin 10.9(L) 12.0 - 16.0 g/dl [facility] Hematocrit 36.9(L) 37.0 - 47.0 % [facility] Mean Corpuscular Volume 65.4(L) 80.0 - 98.0 fL [facility] Mean Corpuscular Hemoglobin 19.3(L) 27.0 - 33.0 pg [facility] Mean Corpuscular HGB Conc 29.5(L) 31.0 - 35.0 g/dl [facility] Red Cell Distribution Width 18.8(H) 11.0 - 16.0 % [facility] Platelet Count 469(H) 160 - 400 X10*3/uL [facility] Mean Platelet Volume 10.4 9.4 - 12.3 fL [facility] Neutrophils Percent Auto 66.7 45 - 73 % [facility] Imm Gran Pct Auto 0.3 0.0 - 0.4 % [facility] Lymphocytes Percent Auto 22.9 20 - 40 % [facility] Monocytes Percent Auto 6.2 2 - 11 % [facility] Eosinophils Percent Auto 3.3 0 - 4 % [facility] Basophils Percent Auto 0.6 0 - 2 % [facility] NRBC Pct Auto 0.2 0.0 - 0.2 /100WBC [facility] Neutrophils Absolute Auto 6.8 2.0 - 8.3 x10*3/uL [facility] Imm Gran Abs Auto 0.03 0.00 - 0.03 X10*3/uL [facility] Lymphocytes Absolute Auto 2.3 1.2 - 4.9 X10*3/uL [facility] Monocytes Absolute Auto 0.6 0.1 - 1.2 X10*3/uL [facility] Eosinophils Absolute Auto 0.3 0.0 - 0.4 X10*3/uL [facility] Basophils Absolute Auto 0.1 0.0 - 0.2 X10*3/uL [facility] NRBC Abs Auto 0.020(H) 0.0 - 0.012 X10*3/uL [facility] Blood Venous blood specimen / Unknown 11/01/2023 3:58 PM EDT 11/01/2023 5:40 PM EDT us Rosalind Cardoso PUBLIC RELATIONS ASSOCIATE LAB BLOOD ORDERABLES Final Res ult [facility] [address] [place] [phone] * (ABNORMAL) Sed Rate by Modified Marlene (11/01/2023 3:53 PM EDT) Erythrocyte Sedimentation Rate 28(H) 0 - 20 MM/HR [facility] Comment:Patients with polycy themia and many hemoglobin abnormalitiesmay have depressed sed rates whereas patients with anemiamay have elevated sed rates. Blood Venous blood specimen / Unknown 11/01/2023 3:53 PM EDT 11/01/2023 5:40 PM EDT us Rosalind Cardoso PUBLIC RELATIONS ASSOCIATE LAB BLOOD ORDERABLES Final Res ult Performing Organization Address [facility] Co de Phone Number [facility] [address] [place] [phone] * C-reactive Protein (11/01/2023 3:53 PM EDT) C Reactive Protein 0.48 < or = 0.50 mg/dL [facility] Blood Venous blood specimen / Unknown 11/01/2023 3:53 PM EDT 11/01/2023 5:40 PM EDT us Rosalind Cardoso PUBLIC RELATIONS ASSOCIATE LAB BLOOD ORDERABLES Final Res ult Performing Organization Address [facility] Phone Number [facility] [address] [place] [phone] * Magnesium (11/01/2023 3:53 PM EDT) Magnesium 1.7 1.6 - 2.6 mg/dL [facility] Blood Venous blood specimen / Unknown 11/01/2023 3:53 PM EDT 11/01/2023 5:40 PM EDT Rosalind Cardoso PUBLIC RELATIONS ASSOCIATE LAB BLOOD ORDERABLES Final Res ult Performing Organization Address [facility] de Phone Number [facility] [address] [place] [phone] * Prothrombin Time-INR (11/01/2023 3:53 PM EDT) Prothrombin Time 12.3 11.1 - 13.3 SEC [facility] INTERNATIONAL NORM RATIO 1.0 0.9 - 1.1 [facility] Comment:INTERNATIONAL NORMAL IZED RATIO [...] 11/01/2023 5:40 PM EDT us Rosalind Cardoso PUBLIC RELATIONS ASSOCIATE LAB BLOOD ORDERABLES Final Res ult [facility] [address] [place], [place] [phone] * (ABNORMAL) Comprehensive Metabolic Panel (11/01/2023 3:53 PM EDT) Sodium 140 135 - 145 mmol/L [facility] Potassium 3.9 3.3 - 5.1 mmol/L [facility] Chloride 102 96 - 108 mmol/L [facility] Carbon Dioxide 30(H) 22 - 29 mmol/L [facility] Anion Gap 12 12 - 20 [facility] Urea Nitrogen (BUN) 22(H) 9 - 16 mg/dL [facility] Creatinine, Serum 1.64(H) 0.5 - 1.4 mg/dL [facility] Estimated Glomerular Filt Rate 32 [facility] Comment:NOTE: For -Am erican individuals, multiply the result by 1.210.Chronic Kidney Disease: Estimated GFR < 60 mL/min/1.03o4Iofloz Kidney Disease: Estimated GFR < 15 mL/min/1.73m2 Glucose 237(H) 60 - 115 mg/dL [facility] Calcium 9.3 8.4 - 10.2 mg/dL [facility] Bilirubin, Total 0.3 0.0 - 1.0 mg/dL [facility] Aspartate Amino Transferase 20 5 - 31 U/L [facility] Alanine Aminotransferase 26 0 - 31 U/L [facility] Total Protein 6.8 6.5 - 8.0 g/dL [facility] Albumin Level 3.3(L) 3.5 - 5.0 g/dL [facility] Alkaline Phosphatase 135(H) 39 - 117 U/L [facility] Blood Venous blood specimen / Unknown 11/01/2023 3:53 PM EDT 11/01/2023 5:40 PM EDT us Rosalind MORELOS LAB BLOOD ORDERABLES Final Res ult [facility] [address] [place] [phone] [phone] documented in this encounter Visit Diagnoses [...] documented as of this encounter Care Teams Circular Clerk Relationship Specialty Start Date End Date Rosalind Cardoso FNP [address] [place] [address] PCP - General Family Medicine 04/28/21 Barron Wetzel MD 100 [facility] 200 [place] [address] Nephrology 01/15/25 Madeline Yo [address] [place] [address] 3rd [place] [address] Cardiology 01/15/25 [employer] 01/05/25 documented as of this encounter
--- OUTSIDE RECORDS SUMMARY | 2025-06-10 13:36 | XMS_ITS | Encounter Summary ---
Author Organization [employer] Address [address] [place] [address] 7 [place] [address] Care Team Providers Care Manager Database Administration Name Role Phone Rosalind Cardoso Primary Care Provider [phone] Barron Wetzel MD Unavailable [phone] Madeline Yo Unavailable Encounter Details Date Type Department Care Team (Late st Contact Info) Description 03/06/2024 Orders Only [facility] MEDICINE [address] [place] [address] Rosalind Cardoso FNP [address] [place], [place] [phone] Type 2 diabetes mellitus with stage 3 [...] [facility] MED [facility] PEDS [address] [place] [address] Amira Ayoub PharmD [address] [place] [address] documented as of this encounter Visit Diagnoses [...] as of this encounter Care Teams Manager Database Administration Relationship Specialty Start Date End Date Rosalind Cardoso FNP [address] [place] [address] PCP - General Family Medicine 04/28/21 Barron Wetzel MD 100 [facility] 200 [place] [address] Nephrology 01/15/25 Madeline Yo [address] 3rd [place] [address] Cardiology 01/15/25 [employer] 01/05/25 documented as of this encounter
--- OUTSIDE RECORDS SUMMARY | 2025-06-10 13:36 | XMS_ITS | Encounter Summary ---
Author Organization [employer] Address [address] [place] [address] 7 [place] [address] Care Team Providers Care Financial Planning Assistant Name Role Phone TeoRosalind bishop TAMY Primary Care Provider [phone] Barron Wetzel MD Unavailable [phone] Srinath, Madeline Unavailable Reason for Visit * Reason Comments Med Refill Encounter Details Date Type Department Care Team ([facility] Contact Info) Description 10/23/2022 Refill [facility] MEDICINE [address] [place] [address] Name, MD Jaiden [address] [place] [address] Social History Tobacco Use Types Packs/Day Years [...] Upcoming Encounters Date Type Department Care Team ([facility] Contact Info) Description 06/16/2025 10:00 AM EST Telemedicine [facility] PEDS 505 [place] [address] Amira Ayoub PharmD [address] [place] [address] documented as of this encounter Visit Diagnoses Not on filedocumented in this encounter Care Teams Financial Planning Assistant Relationship Specialty Start Date End Date Rosalind Cardoso FNP [address] [place] [address] PCP - General Family Medicine 04/28/21 Barron Wetzel MD [address] [address] Nephrology 01/15/25 Madeline Yo [address] [place] [address] Drive 3rd [place] [address] Cardiology 01/15/25 [employer] 01/05/25 documented as of this encounter
--- OUTSIDE RECORDS SUMMARY | 2025-06-10 13:36 | XMS_ITS | Encounter Summary ---
Author Organization [employer] Address [address] [place] [address] 7t [place] [address] Care Team Providers Care Pharmaceutical Botanist Name Role Phone Rosalind Cardoso Primary Care Provider [phone] Barron Wetzel MD Unavailable [phone] Madeline Yo Unavailable Reason for Visit * Reason Comments Med Refill Encounter Details Date Type Department Care Team (Late st Contact Info) Description 01/13/2023 Refill [facility] MED & PEDS [address] [place] [address] Saba Garcia FNP Type 2 diabetes mellitus [...] Info) Description 06/16/2025 10:00 AM EST Telemedicine [facility] & PEDS [address] [place] [address] Amira Ayoub PharmD 230 [place] [address] documented as of this encounter Visit Diagnoses Diagnosis Type 2 diabetes mellitus with hyperglycemia (HCC) documented in this encounter Additional Health Concerns Assessment Noted Time PHQ-9 Depression Total Score: 0 12/26/19 23 1:09 PM EDT documented as of this encounter Care Teams Pharmaceutical Botanist Relationship Specialty Start Date End Date Rosalind Cardoso FNP 230 [place] [address] PCP - General Family Medicine 04/28/21 Barron Wetzel MD 100 [facility] 200 [place] [address] Nephrology 01/15/25 Madeline Yo [address] [facility] [address] 3rd [place] [address] Cardiology 01/15/25 [employer] 01/05/25 documented as of this encounter
--- OUTSIDE RECORDS SUMMARY | 2025-06-10 13:36 | XMS_ITS | Encounter Summary ---
Author Organization [employer] Address [address] [place] [address] 7 [place] [address] Care Team Providers Care Vibration Analyst Name Role Phone Rosalind Cardoso Primary Care Provider [phone] Barron Wetzel MD Unavailable [phone] Madeline Yo Unavailable Encounter Details Date Type Department Care Team (Late st Contact Info) Description 02/21/2024 Orders Only [facility] MEDICINE 230 [place] [address] Rosalind Cardoso FNP [address] [place], [place] [phone] Type 2 diabetes mellitus with stage 3 [...] 06/16/2025 10:00 AM EST Telemedicine [facility] MED & PEDS [address] [place] [address] Amira Ayoub PharmD 230 [place] [address] documented as of this encounter Visit Diagnoses [...] documented as of this encounter Care Teams Vibration Analyst Relationship Specialty Start Date End Date Rosalind Cardoso FNP 230 [place] [address] PCP - General Family Medicine 04/28/21 aBrron Wetzel MD 100 [facility] 200 [place] [address] Nephrology 01/15/25 Madeline Yo [address] 3rd [place] [address] Cardiology 01/15/25 [employer] 01/05/25 documented as of this encounter
--- OUTSIDE RECORDS SUMMARY | 2025-06-10 13:36 | XMS_ITS | Encounter Summary ---
Author Organization [email or web address] Address [address] [place] [address] 7 [place] [address] Care Team Providers Care Breakdown Worker Name Role Phone Rosalind Cardoso Primary Care Provider [phone] Barron Wetzel MD Unavailable [phone] Madeline Yo Unavailable Encounter Details Date Type Department Care Team (Late st Contact Info) Description 03/27/[address] [facility]EDS [address] [place], [place] [phone] Rosalind Cardoso FNP 505 [place], [place] [phone] Type 2 diabetes mellitus with stage 3 [...] 06/16/2025 10:00 AM EST Telemedicine [facility] MED & PEDS [address] [place] [address] Amira Ayoub PharmD [address] [place] [address] documented as of this encounter Visit Diagnoses [...] documented as of this encounter Care Teams Breakdown Worker Relationship Specialty Start Date End Date Rosalind Cardoso FNP 230 [place] [address] PCP - General Family Medicine 04/28/21 Barron Wetzel MD 100 [facility] 200 [place] [address] Nephrology 01/15/25 Madeline Yo [address] [place] [address] 3rd [place] [address] Cardiology 01/15/25 [employer] 01/05/25 documented as of this encounter
--- OUTSIDE RECORDS SUMMARY | 2025-06-10 13:36 | XMS_ITS | Encounter Summary ---
Author Organization [employer] Address [address] [place] [address] 7 [place] [address] Care Team Providers Care Document Design Specialist Name Role Phone Rosalind Cardoso Primary Care Provider Barron Wetzel MD Unavailable [phone] Madeline Yo Unavailable Encounter Details Date Type Department Care Team (Late st Contact Info) Description 03/13/2024 Orders Only [facility] MED & PEDS 505 [place], [place] [phone] Rosalind Cardoso FNP 505 [place], [place] [phone] Type 2 diabetes mellitus with stage 3 [...] 06/16/2025 10:00 AM EST Telemedicine [facility] MED [facility] PEDS 505 [place] [address] Amira Ayoub, PharmD 230 [place] [address] documented as of this encounter Procedures Procedure [...] Protein 1.25(H) < or = 0.50 mg/dL [facility] Blood Venous blood specimen / Unknown 05/29/2024 2:18 PM EST 05/29/2024 2:18 PM EST Rosalind MORELOS LAB BLOOD ORDERABLES Final Res ult [facility] [address] [place] [address] [phone] documented in this encounter Visit Diagnoses [...] documented as of this encounter Care Teams Document Design Specialist Relationship Specialty Start Date End Date Rosalind Cardoso FNP [address] [place] [address] PCP - General Family Medicine 04/28/21 Barron Wetzel MD [address] [address] Nephrology 01/15/25 Madeline Yo [address] [place] [address] 3rd [place] [address] Cardiology 01/15/25 [employer] 01/05/25 documented as of this encounter
--- OUTSIDE RECORDS SUMMARY | 2025-06-10 13:37 | XMS_ITS | Encounter Summary ---
Author Organization [employer] Address [address] [place] [address] 7 [place] [address] Care Team Providers Care Arabic Professor Name Role Phone Rosalind Cardoso Primary Care Provider [phone] Barron Wetzel MD Unavailable [phone] Madeline Yo Unavailable Encounter Details Date Type Department Care Team (Late st Contact Info) Description 04/24/2024 Orders Only [facility] MED & PEDS [address] [place], [place] [phone] Rosalind Cardoso FNP 505 [place], [place] [phone] Type 2 diabetes mellitus with stage 3 [...] Info) Description 06/16/2025 10:00 AM EST Telemedicine [facility] MED & PEDS [address] [place] [address] Amira Ayoub PharmD 230 [place] [address] documented as of this encounter Visit Diagnoses [...] documented as of this encounter Care Teams Arabic Professor Relationship Specialty Start Date End Date Rosalind Cardoso FNP 230 [place] [address] PCP - General Family Medicine 04/28/21 Barron Wetzel MD 100 [facility] 200 [place] [address] Nephrology 01/15/25 Madeline Yo [address] [place] [address] 3rd [place] [address] Cardiology 01/15/25 [employer] 01/05/25 documented as of this encounter
--- OUTSIDE RECORDS SUMMARY | 2025-06-10 13:37 | XMS_ITS | Encounter Summary ---
Author Organization [employer] Address [address] [place] [address] 7t [place] [address] Care Team Providers Care Drop Hammer Setter Up Name Role Phone Janae Rosalind TAMY Primary Care Provider [phone] Barron Wetzel MD Unavailable [phone] Madeline Yo Unavailable Encounter Details Date Type Department Care Team (Late st Contact Info) Description 05/23/2023 Abstract [facility] 230 [place] [address] Adela Pena Social History Tobacco Use Types [...] Info) Description 06/16/2025 10:00 AM EST Telemedicine [facility] PEDS [address] [place] [address] Amira Ayoub PharmD 230 [place] [address] documented as of this encounter Visit Diagnoses Not on filedocumented in this encounter Additional Health Concerns Assessment Noted Time PHQ-9 Depression Total Score: 0 12/26/19 23 1:09 PM EDT documented as of this encounter Care Teams Drop Hammer Setter Up Relationship Specialty Start Date End Date Rosalind Cardoso FNP 230 [place] [address] PCP - General Family Medicine 04/28/21 Barron Wetzel MD 100 [facility] 200 [place] [address] Nephrology 01/15/25 Madeline Yo [address] [facility] [address] 3rd [place] [address] Cardiology 01/15/25 [employer] 01/05/25 documented as of this encounter
--- OUTSIDE RECORDS SUMMARY | 2025-06-10 13:37 | XMS_ITS | Encounter Summary ---
Author Organization [employer] Address [address] [place] [address] 7 [place] [address] Care Team Providers Care Rn Clinical Appeals Name Role Phone Rosalind Cardoso Primary Care Provider [phone] Barron Wetzel MD Unavailable Madeline Yo Unavailable Encounter Details Date Type Department Care Team ([facility] Contact Info) Description 04/20/2025 Results Follow-Up [facility] MED & PEDS 505 [place], [place] [phone] Rosalind Cardoso FNP 505 [place], [place] [phone] Hemoglobin A1c Social History Tobacco Use Types Packs/Day Years [...] [facility] [address] [place] [address] Amira Ayoub PharmD 230 [place] [address] documented as of this encounter Visit Diagnoses Not on filedocumented in this encounter Additional Health Concerns Assessment Noted Time PHQ-9 Depression Total Score: 6 08/03/19 25 9:07 AM EST documented as of this encounter Care Teams Rn Clinical Appeals Relationship Specialty Start Date End Date Rosalind Cardoso FNP 230 [place] [address] PCP - General Family Medicine 04/28/21 Barron Wetzel MD 100 [facility] 200 [place] [address] Nephrology 01/15/25 Madeline Yo [address] 3rd [place] [address] Cardiology 01/15/25 [employer] 01/05/25 documented as of this encounter
--- OUTSIDE RECORDS SUMMARY | 2025-06-10 13:37 | XMS_ITS | Encounter Summary ---
Author Organization [employer] Address [address] [place] [address] 7 [place] [address] Care Team Providers Care Mirror Department Supervisor Name Role Phone Rosalind Cardoso Primary Care Provider [phone] Barron Wetzel MD Unavailable [phone] Madeline Yo Unavailable Encounter Details Date Type Department Care Team (Late st Contact Info) Description 04/10/2024 Orders Only [facility] MED & PEDS [address] [place], [place] [phone] Rosalind Cardoso FNP [address] [place], [place] [phone] Type 2 diabetes mellitus with stage 3 [...] 06/16/2025 10:00 AM EST Telemedicine [facility] MED & PEDS [address] [place] [address] Amira Ayoub PharmD 230 [place] [address] documented as of this encounter Visit Diagnoses [...] documented as of this encounter Care Teams Mirror Department Supervisor Relationship Specialty Start Date End Date Rosalind Cardoso FNP 230 [place] [address] PCP - General Family Medicine 04/28/21 Barron Wetzel MD 100 [facility] 200 [place] [address] Nephrology 01/15/25 Madeline Yo [address] [place] [address] 3rd [place] [address] Cardiology 01/15/25 [employer] 01/05/25 documented as of this encounter
--- OUTSIDE RECORDS SUMMARY | 2025-06-10 13:37 | XMS_ITS | Encounter Summary ---
Author Organization [employer] Address [address] [place] [address] 7 [place] [address] Care Team Providers Care Can Line Operator Name Role Phone Rosalind Cardoso Primary Care Provider [phone] Barron Wetzel MD Unavailable [phone] Madeline Yo Unavailable Encounter Details Date Type Department Care Team (Late st Contact Info) Description 07/10/2024 Orders Only [facility] MEDICINE 230 [place] [address] Rosalind Cardoso FNP [address] [place], [place] [phone] Type 2 diabetes mellitus with stage 3 [...] Info) Description 06/16/2025 10:00 AM EST Telemedicine [facility] MED & PEDS [address] [place] [address] Amira Ayoub PharmD 230 [place] [address] documented as of this encounter Visit Diagnoses [...] documented as of this encounter Care Teams Can Line Operator Relationship Specialty Start Date End Date Rosalind Cardoso FNP 230 [place] [address] PCP - General Family Medicine 04/28/21 Barron Wetzel MD 100 [facility] 200 [place] [address] Nephrology 01/15/25 Madeline Yo [address] 3rd [place] [address] Cardiology 01/15/25 [employer] 01/05/25 documented as of this encounter
--- OUTSIDE RECORDS SUMMARY | 2025-06-10 13:37 | XMS_ITS | Encounter Summary ---
Author Organization [email or web address] Address [address] [place] [address] 7 [place] [address] Care Team Providers Care Magnetic Resonance Imaging Coordinator Name Role Phone Rosalind Cardoso Primary Care Provider [phone] Barron Wetzel MD Unavailable [phone] Madeline Yo Unavailable Encounter Details Date Type Department Care Team (Late st Contact Info) Description 05/01/2024 Orders Only [facility] [address] [place] [address] Rosalind Cardoso FNP [address] [place], [place] [id number] Type 2 diabetes mellitus with stage 3 [...] Info) Description 06/16/2025 10:00 AM EST Telemedicine [facility] [address] [place] [address] Amira Ayoub PharmD [address] [place] [address] documented as of this encounter Visit Diagnoses [...] documented as of this encounter Care Teams Magnetic Resonance Imaging Coordinator Relationship Specialty Start Date End Date Rosalind Cardoso FNP [address] [place] [address] PCP - General Family Medicine 04/28/21 Barron Wetzel MD [address] [facility] [address] [place] [address] Nephrology 01/15/25 Madeline Yo [address] [place] [address] Cardiology 01/15/25 [employer] 01/05/25 documented as of this encounter
--- OUTSIDE RECORDS SUMMARY | 2025-06-10 13:37 | XMS_ITS | Encounter Summary ---
Author Organization [employer] Address [address] [place] [address] 7 [place] [address] Care Team Providers Care Library Media Technician Name Role Phone Rosalind Cardoso Primary Care Provider [phone] Barron Wetzel MD Unavailable [phone] Madeline Yo Unavailable Reason for Visit * Reason Comments Med Refill Encounter Details Date Type Department Care Team ([facility] st Contact Info) Description 05/28/2023 Refill [facility] [address] [place] [address] Rosalind Cradoso FNP [address] [place], [place] [id number] Other chronic osteomyelitis of left foot (CMS/HCC); [facility] [address] [place] [address] Amira Ayoub PharmD [address] [place] [address] documented as of this encounter Visit Diagnoses Diagnosis Other chronic osteomyelitis of left foot (HCC) Low back pain at multiple sites documented in this encounter Additional Health Concerns Assessment Noted Time PHQ-9 Depression Total Score: 0 12/26/19 23 1:09 PM EDT documented as of this encounter Care Teams Library Media Technician Relationship Specialty Start Date End Date Rosalind Cardoso FNP [address] [place] [address] PCP - General Family Medicine 04/28/21 Barron Wetzel MD [address] [facility] [address] [place] [address] Nephrology 01/15/25 Madeline Yo [address] [place] [address] Cardiology 01/15/25 [employer] 01/05/25 documented as of this encounter
--- OUTSIDE RECORDS SUMMARY | 2025-06-10 13:37 | XMS_ITS | Clinical Summary ---
Author Organization [employer] Address [address] [place] [address] 7 [place] [address] Care Team Providers Care Enamel Shader Name Role Phone Janae Rosalind MORELOS Primary Care Provider [phone] Barron Wetzel MD Unavailable [phone] Madeline Yo Unavailable Allergies Active Allergy Reactions Criticality Noted Date Comments Empagliflozin Other 12/10/2023 Hx BKA, shared decision making to avoid SGLT-2i Medications * This document contains information received from the source organization and may not represent a complete record from that organization. Nutritional Supplements (Glucerna Shake) liquid Supplement meals with one glucerna drink daily as needed - Vanilla Glucerna 022 Active isosorbide mononitrate ER (Imdur) 60 MG 24 hr tablet 023 Active folic acid (Folvite) 1 MG tablet Take 1 tablet (1 mg) by mouth Once daily. 90 tablet 024 Active aspirin (Aspirin Adult Low Strength) 81 MG EC tabletIndication s:Type 2 diabetes mellitus with hyperglycemia, with long-term current use of insulin (HCC) Take 1 tablet (81 mg) by mouth Once daily. 90 tablet 3 024 Active chlorthalidone (Hygroton) 25 MG tablet Take 1 tablet (25 mg) by mouth in the morning. 90 tablet 3 024 Active atorvastatin (Lipitor) 80 MG tablet TAKE 1 TABLET BY MOUTH AT BEDTIME 90 tablet 3 024 Active pantoprazole (ProtoNix) 40 MG EC tablet Take 1 tablet (40 mg) by mouth Once daily. 90 tablet 3 Active cholecalciferol (Vitamin D-3) 25 MCG (1000 UT) tablet Take 1 tablet (25 mcg) by mouth Once daily. 90 tablet 3 Active metoprolol succinate XL (Toprol XL) 100 MG 24 hr tablet Take 1 tablet (100 mg) by mouth Once per day. Do not crush or chew. 90 tablet 3 Active ezetimibe (Zetia) 10 MG tabletIndication s:Pure hypercholesterol emia, unspecified Take 1 tablet (10 mg) by mouth in the morning. 90 tablet 3 Active lidocaine (Lidoderm) 5 % patchIndications :Pain APPLY 1 PATCH TOPICALLY TO SKIN, LEAVE ON FOR 12 HOURS AND OFF FOR 12 HOURS DIRECTED 30 patch 11 Active Blood Glucose Monitoring Suppl kitIndications:T ype 2 diabetes mellitus with foot ulcer, with long-term current use of insulin ([facility]) Use to check Blood glucose values three times dailyUse to check Blood glucose values three times daily 1 kit 1 025 Active Blood Pressure kit Use to check blood pressure daily and when symptomatic. 1 kit 025 Active Alcohol Swabs (SM Alcohol Prep) 70 % padsIndications: Type 2 diabetes mellitus with foot ulcer, with long-term current use of insulin ([facility]) TEST BLOOD SUGAR THREE TIMES DAILY 100 each 11 06/09/20 25 5:32 PM EST 025 Active FreeStyle lancets 1 each by Other route 3 times daily. Use as instructed 100 each 06/09/20 25 5:32 PM EST 025 Active furosemide (Lasix) 40 MG tablet Take 2 tablets by mouth Once per day. Active lidocaine-priloc daren (Emla) 2.5-2.5 % creamIndications :Other chronic osteomyelitis of left foot ([facility]) APPLY TO THE AFFECTED AREA(S) ONCE DAILY NEEDED FOR PAIN 30 g 11 025 Active glucose blood (OneTouch Verio) test stripIndications :Type 2 diabetes mellitus with stage 3 chronic kidney disease, with long-term current use of insulin, unspecified whether stage 3a or 3b CKD ([facility]) USE DIRECTED TO TEST BLOOD SUGAR THREE TIMES DAILY 100 strip 11 06/09/20 25 5:32 PM EST 025 Active albuterol 108 (90 Base) MCG/ACT inhaler Inhale 2 puffs every 6 (six) hours if needed for wheezing or shortness of breath. 18 g 11 06/09/20 25 5:32 PM EST 025 2025 Active magnesium oxide (Mag-Ox) 400 MG tabletIndication s:Type 2 diabetes mellitus with other specified complication, unspecified whether predatory animal exterminator insulin use (HCC) TAKE 1 TABLET BY MOUTH THREE TIMES DAILY 270 tablet 1 025 Active amitriptyline (Elavil) 25 MG tabletIndication s:Fibromyalgia TAKE 1 TABLET BY MOUTH AT BEDTIME 90 tablet 1 025 Active Acetaminophen Extra Strength 500 MG tabletIndication s:Low back pain at multiple sites TAKE 1 TO 2 TABLETS BY MOUTH EVERY 8 HOURS NEEDED (for pain) 100 tablet 3 06/09/20 25 5:32 PM EST 025 Active insulin glargine (Lantus SoloStar) 100 UNIT/ML penIndications:T ype 2 diabetes mellitus with hyperglycemia (HCC) INJECT 45 UNITS SUBCUTANEOUSLY ONCE DAILY DIRECTED 15 mL 025 Active lisinopril 10 MG tablet Take 1 tablet (10 mg) by mouth Once per day. 30 tablet 3 025 2025 Active Tirzepatide (Mounjaro) 2.5 MG/0.5ML solution auto-injectorInd ications:Type 2 diabetes mellitus with stage 3 chronic kidney disease, with long-term current use of insulin, unspecified whether stage 3a or 3b CKD (HCC) Inject 2.5 mg under the skin 1 (one) time per week. 2 mL 025 Active Tirzepatide (Mounjaro) 5 MG/0.5ML solution auto-injectorInd ications:Type 2 diabetes mellitus with stage 3 chronic kidney disease, with long-term current use of insulin, unspecified whether stage 3a or 3b CKD (HCC) Inject 5 mg under the skin 1 (one) time per week. 2 mL 2 025 Active clotrimazole (Lotrimin) 1 % cream APPLY TOPICALLY TWICE DAILY FOR 28 DAYS 30 g 3 06/09/20 25 5:32 PM EST Active Embecta Pen Needle Ultrafine 31G X 5 MM misc USE THREE TIMES DAILY DIRECTED 100 each 3 06/09/20 25 5:32 PM EST Active pen needle 31G x 5 mm misc Inject under the skin 3 times daily. Use as instructed 100 each 3 025 2024 Discontinued clotrimazole (Lotrimin) 1 % cream APPLY TOPICALLY TWICE DAILY FOR 28 DAYS 30 g 3 025 2024 Discontinued Active Problems Problem Noted Date Diagnosed Date CHF (congestive heart failure) 06/08/2025 Overview (06/08/2025): Following with [facility] Cards - per consult note 02/2025 - Echocardiogram completed 01/26/2025 demonstrated EF 25% with inferior wall motion abnormality, grade 2 diastolic dysfunction. Assessment & Plan (06/08/2025 5:58 PM EST): - continue following with specialist Coronary artery disease 01/15/2025 Overview (06/08/2025): September 2022: CTA coronary arteries demonstrated 70% stenosis of the mid LAD between the 2nd and 3rd diagonal, RCA dominant with mid 50-60% stenosis. Recommended cardiac cath, although pt deferred. Med management: high-dose statin, Zetia, and aspirin Pt in agreement with cardiac cath as of Feb 2025 Assessment & Plan (01/15/2025 4:53 PM EDT): [...] BMD Cervicalgia 08/11/2023 Overview (08/11/2023): Evaluation through [facility] Spine Center - MRI cervical spine completed Jul 2023 unremarkable Referral to [facility] Pain Management 08/11/23 Fibromyalgia 05/14/2023 Overview (12/10/2023): Previously followed by [facility] Neurology, Dr. Jolly Continues with amitriptyline 25mg [...] BKA performed by Dr. Borden 09/01/22 at [facility] -Indication: gangrene and ulcers of the left foot, charcot foot, and OM Assessment & Plan (01/15/2025 4:49 PM EDT): Mainly wheelchair-bound due to inability to use the prosthetics secondary to leg swelling (worsens over summer) DME rx for Transport Chair and Wheelchair (repair or replace) provided 01/15/25. Also sent to HIM to scan into record. Referral to [facility] ED for eval of lightweight [...] physical therapy, referral for physical therapy at [facility] Assessment & Plan (12/26/2022 8:59 AM [...] -Cont Metoprolol succ 100mg daily -Following with [facility] Cards Assessment & Plan (11/05/2022 9:48 PM [...] 06/20/2022 Overview (03/16/2024): -Optometry: November 2021 -Dental: [facility] dental clinic -Pap: reports last 2019 and believes results were normal, referred to UroGYN -Mammo: 11/29/23 BIRADS 1 -Colorectal CA screening: iFOBT neg 12/18/21, due Assessment & Plan (10/03/2023 12:48 PM EDT): Complex care management/medical binder completed today and reviewed with patient -Pt continues to decline all vaccines Assessment & Plan (06/21/2023 9:30 PM EST): -Optometry: November 2021 -Dental: [facility] dental clinic -Pap: reports last 2019 and believes results were normal, referred to UroGYN -Colorectal CA screening: iFOBT neg 12/18/21, due December 2022 Complex care management/medical binder completed today with patient. Medical binder to be picked up next week when elevator in apartment functioning. Assessment & Plan (11/05/2022 9:38 PM EDT): -Optometry: November 2021 -Dental: [facility] dental clinic -Pap: reports last 2019 and believes results were normal, referred to UroGYN -Colorectal CA screening: iFOBT neg 12/18/21, due December 2022 -Mammogram: BIRADS 3 on 01/16/22, due Jul 2022 -Outstanding vaccines: influenza, Tdap, Shingrix, PCV20, COVID [employer] Content Management Specialist Osi: plan to schedule follow up appts the following specialists: [facility] Nephrology [facility] Endo [facility] UroGYN Assessment & Plan (06/20/2022 6:06 PM EST): -Optometry: November 2021 -Dental: [facility] dental clinic -Pap: reports last 2019 [...] stopping Plavix) Stage 3b chronic kidney disease (CMS/HCC) 2021 Overview (06/08/2025): Followed by Nephrology - Dr. Wetzel/LESLYE Williamson [...] 06/04/2022 CREATININE 1.05 05/29/2022 CREATININE 1.03 05/18/2022 Assessment & Plan (06/08/2025 6:00 PM EST): Followed by Dr. Wetzel Per last available consult note 03/2025: significant risk of progression to ESRD given heavy urine proteins Assessment & Plan (12/26/2022 8:55 AM EDT): Followed by Dr. Wetzel Per last consult note in December 2022, plan to recheck UACR, and start Kerendia if elevated. Avoid SGLT2-inhibitors Pt requesting to add microalbumin to routine blood work [id number], ordered Irritable bowel syndrome 09/21/2021 Peripheral vascular [...] h diabetic chronic kidney disease 08/14/2021 Overview (06/08/2025): Lab Results Component Value Date HGBA1C >14.0 (H) 04/20/2025 HGBA1C 13.5 (A) 11/26/2024 HGBA1C 14.8 (A) 08/03/2024 HGBA1C 10.5 (A) 10/02/2023 HGBA1C 8.2 (H) 09/26/2022 HGBA1C 11.3 (H) 08/22/2021 -Previously followed by [facility], currently following with [facility] -Cont current medication regimen Lantus 45 units at bedtime Mounjaro 2.5mg subcutaneous weekly -Movement/exercise as tolerated Previous medications: DC by renal 12/30 d/t worsening eGFR) -(DC 09/01 d/t cardiac hx) Avoid SGLT2 inhibitors given hx of BKA Assessment & Plan (06/08/2025 6:02 PM EST): - Continue following with [facility] CD - Unclear how consistent she is with insulin and Mounjaro usage - Reviewed ED precautions Assessment & Plan (01/15/2025 1:54 PM EDT): - Time did not permit for further discussion of T2DM today. However, she is currently only using lantus for BG control given discontinuation of other medications with her comorbid conditions. She may be a good candidate for GLP1 given limitations with using other drug classes. - Scheduled to meet with [facility] next week for further discussion of BG control Assessment & Plan (11/26/2024 1:57 PM EDT): Uncontrolled, increase Lantus to 40 units, patient should reach out to [facility] clinic to reschedule appointment. I will follow-up [...] EST): -A1c 8.0 on 05/01/22 -Followed by [facility] Endo -Continue on current regimen: -metformin 1000mg BID -Jardiance 10mg daily -Lantus 40 units at bedtime -Actos 15mg daily -Movement/exercise as tolerated Beta thalassemia trait 10/09/2018 Second degree uterine prolapse 10/09/2018 Urinary incontinence 10/09/2018 Overview (12/10/2023): Following with [facility] UroGYN for hx urinary incont [...] Plan (10/03/2023 12:45 PM EDT): Following with [facility] Heme/Onc, plan to repeat labs through PCP [id number]: CBC, CMP, magnesium, sed rate, CRP, microalbumin Continues with Procrit while Hemoglobin < 10 Assessment & Plan (05/14/2023 12:02 PM EST): Following with [facility] Heme/Onc, plan to repeat labs today through PCP Q 2 weeks: CBC, CMP, magnesium, sed rate, CRP, microalbumin Assessment & Plan (12/26/2022 9:00 AM EDT): Previously followed by [facility] Heme/Onc, plan to repeat labs today through PCP Q 2 weeks: CBC, CMP, magnesium, sed rate, CRP, microalbumin Assessment & Plan (11/05/2022 9:50 PM EDT): Previously followed by [facility] Heme/Onc, plan to repeat labs today through PCP. Ordered. Osteoarthritis of both knees 08/12/2017 Primary hypertension 03/16/2016 Overview (01/15/2025): Following with [facility] Cards - Dr. Middleton/Srinath, CHANDU. September 2022: [...] medications. PAP smear: Overdue, will refer to MACHINE MAINTENANCE REPAIRER as she has uterine prolapse as well. [...] or cuboid bones. Pt was seen by [facility] ID and initiated on PO doxy x 6 weeks, with possible need for surgical intervention. Following with [facility] Vascular - Dr. Vigil - and podiatry. 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 being followed by ID and vascular Encounters Date Type Department Care Team Description 06/10/2025 Orders Only GENERIC EXTERNAL DATA DEPARTMENT Provider, Generic External Data 06/07/2025 11:00 AM EST Telemedicine [facility] MED [facility] PED[facility] [address] [place] [address] Rosalind Cardoso FNP Wound drainage (Primary Dx); Primary hypertension; Hypercholesterolemia; Supraventricular tachycardia (CMS/[facility]); Coronary artery disease involving cantwell coronary artery of cantwell heart, unspecified whether angina present; Stage 3b chronic kidney disease (CMS/HCC) ([facility]); Peripheral vascular disease (CMS/[facility]); History of amputation of left leg through tibia and fibula ([facility]); Microcytic anemia; Beta thalassemia trait; Chronic congestive heart failure, unspecified heart failure type ([facility]); Dietary counseling; Exercise counseling; Type 2 diabetes mellitus with stage 3 chronic kidney disease, with long-term current use of insulin, unspecified whether stage 3a or 3b CKD ([facility]) 06/07/2025 Travel 06/02/2025 Telephone [facility] [address] [place] [address] Rosalind Cardoso, SEWING DEPARTMENT SUPERVISOR Nurse Triage 05/31/2025 Telephone [facility] [address] [place] [address] Rosalind Cardoso, SEWING DEPARTMENT SUPERVISOR 05/28/2025 Orders Only [facility]ED[facility] [address] [place] [address] Rosalind Cardoso, SEWING DEPARTMENT SUPERVISOR Microcytic anemia 05/20/2025 Orders Only [facility] [address] [place] [address] Alize Ge MD Type 2 diabetes mellitus with stage 3 chronic kidney disease, with long-term current use of insulin, unspecified whether stage 3a or 3b CKD (HCC) (Primary Dx) 05/20/2025 Telephone [facility] [address] [place], [place] [phone] Amira Ayoub, PharmD 05/20/2025 Refill [facility] [address] [place] [address] Rosalind Cardoso, SEWING DEPARTMENT SUPERVISOR 05/14/2025 Travel 05/14/2025 Refill [facility] [address] [place] [address] Rosalind Cardoso, SEWING DEPARTMENT SUPERVISOR 05/14/2025 Orders Only [facility] [address] [place] [address] Rosalind Cardoso, SEWING DEPARTMENT SUPERVISOR Microcytic anemia 05/03/2025 Travel 04/30/2025 Telephone [facility] [address] [place] [address] Rosalind Cardoso, SEWING DEPARTMENT SUPERVISOR Chart Prep 04/30/2025 Orders Only [facility] [address] [place], [place] [phone] Rosalind Cardoso, SEWING DEPARTMENT SUPERVISOR Microcytic anemia 04/26/2025 Orders Only GENERIC EXTERNAL DATA DEPARTMENT Provider, Generic External Data 04/23/2025 2:30 PM EDT Telemedicine [facility] [address] [place], [place] [phone] Amira Ayoub, PharmD Type 2 diabetes mellitus with stage 3 chronic kidney disease, with long-term current use of insulin, unspecified whether stage 3a or 3b CKD (HCC) (Primary Dx) 04/23/2025 Refill [facility] [address] [place] [id number] Gala Amado DO 04/23/[address] [address] Rosana Olvera MD Type 2 diabetes mellitus with hyperglycemia (HCC) 04/23/[address] [address] Rosalind Cardoso, SEWING DEPARTMENT SUPERVISOR Referral 04/20/2025 Results Follow-Up [facility] [address] [place] [address] Rosalind Cardoso, SEWING DEPARTMENT SUPERVISOR Hemoglobin A1c 04/20/2025 Orders Only [facility] [address] [place] [address] Rosalind Cardoso, SEWING DEPARTMENT SUPERVISOR Microcytic anemia (Primary Dx) 04/20/2025 Orders Only [facility] [address] [place] [address] Amira Ayoub PharmD Type 2 diabetes mellitus with stage 3 chronic kidney disease, with long-term current use of insulin, unspecified whether stage 3a or 3b CKD (HCC) (Primary Dx) 04/12/2025 Telephone [facility] [address] [place] [address] Rosalind Cardoso FNP Durable Medical Equipment 04/05/2025 Orders Only GENERIC EXTERNAL DATA DEPARTMENT Provider, Generic External Data 03/30/[address] [address] Rosalind Cardoso SEWING DEPARTMENT SUPERVISOR 03/18/2025 Telephone [facility] [address] [place] [address] Rosalind Cardoso, SEWING DEPARTMENT SUPERVISOR Referral 03/11/2025 Orders Only GENERIC EXTERNAL DATA DEPARTMENT Provider, Generic External Data from Last 3 Months Social History Tobacco [...] Info) Description 06/16/2025 10:00 AM EST Telemedicine [facility] [address] [place] [address] Amira Ayoub, PharmD [address] [place], [place] [phone] Health Maintenance Due Date Last Done Comments CT Colonography 1963 Colonoscopy 1963 Colorectal Cancer Screening 1963 FIT DNA/Cologuard 1963 FIT 1963 FOBT 1963 Sigmoidoscopy 1963 Eye Exam 1973 Alcohol/Substance Use Screening 1975 DTaP/Tdap/Td Vaccines (1 - Tdap) 1982 Pneumococcal Vaccine: 50+ Years (1 of 2 - PCV) 1982 Pap Smear 1984 Cervical Cancer Screening 1993 HPV/Cotest 1993 RSV Patients and Patients Aged 60 years or older (1 - Risk 50-74 years 1-dose series) 2013 Zoster Vaccines (1 of 2) 2013 SDOH Screening 08/01/2024 08/01/2023 Mammogram 11/28/2024 11/29/2023, 11/05, 11/23/2022, Additional history exists COVID-19 Vaccine ( season) 2025 Influenza Vaccine (#1) 2025 Depression Screening 08/03/2025 08/03/2024, 08/03/19 25 Disability Screening 08/03/2025 08/03/2024 Diabetes: Hemoglobin A1C 10/19/202504/20/ 025, 11/26/2024, 08/03/2024, Additional history exists Diabetes: Foot Exam 11/26/2025 11/26/2024, 11/26/2024, 11/26/2024, [...] on patient's age to complete this topic Goals Goal Patient Goal Type Associated Problems Recent Progress Patient-Stated? Author Help patients manage their type 2 diabetes Care Plan Help patients manage their type 2 diabetes No Amira Ayoub PharmD Weekly blood pressure task Care Plan Weekly blood pressure task No Amira Ayoub PharmMathew Help patients manage their type 2 diabetes Care Plan Help patients manage their type 2 diabetes No Amira Ayoub PharmD Patient has chronic kidney disease Care Plan Patient has chronic kidney disease No Amira Ayoub PharmD Weekly blood pressure task Care Plan Weekly blood pressure task No Aimra Ayoub PharmD Patient has chronic kidney disease [...] Plan Weekly blood pressure task No Real Hutchisnon Weekly blood pressure task Care Plan Weekly blood pressure task No Real Hutchinson Patient has chronic kidney disease Care Plan Patient has chronic kidney disease No Real Hutchinson Patient has chronic kidney disease Care Plan Patient has chronic kidney disease No JasperReal Weekly blood pressure task Care Plan Weekly blood pressure task No Monte, Jaiden Weekly blood pressure task Care Plan Weekly blood pressure task No Monte, Jaiden Patient has chronic kidney disease Care Plan Patient has chronic kidney disease No Monte, Jaiden Patient has chronic kidney disease Care Plan Patient has chronic kidney disease No Monte, Jaiden Weekly blood pressure task Care Plan Weekly blood pressure task No Phalen, Rosalind, SEWING DEPARTMENT SUPERVISOR Weekly blood pressure task Care Plan Weekly blood pressure task No Phalen, Rosalind, SEWING DEPARTMENT SUPERVISOR Patient has chronic kidney disease Care Plan Patient has chronic kidney disease No Phalen, Rosalind, SEWING DEPARTMENT SUPERVISOR Patient has chronic kidney disease Care Plan Patient has chronic kidney disease No Phalen, Rosalind, SEWING DEPARTMENT SUPERVISOR Weekly blood pressure task Care Plan Weekly blood pressure task No Colon, Ina Weekly blood pressure task Care Plan Weekly blood pressure task No Colon, Ina Patient has chronic kidney disease Care Plan Patient has chronic kidney disease No Colon, Ina Patient has chronic kidney disease Care Plan Patient has chronic kidney disease No Colon, Ina Procedures Procedure Name Priority Date/Time Associated Diagnosis Comments URINALYSIS, COMPLETE, WITH REFLEX TO CULTURE Routine 06/10/2025 12:42 PM EST HIGH SENSITIVITY TROPONIN I Routine 06/10/2025 12:14 PM EST NT-PROBNP Routine 06/10/2025 12:14 PM EST LIPASE Routine 06/10/2025 12:14 PM EST MAGNESIUM Routine 06/10/2025 12:14 PM EST BASIC METABOLIC PANEL Routine 06/10/2025 12:14 PM EST HEPATIC FUNCTION PANEL Routine 12:14 PM EST CBC WITH AUTO DIFFERENTIAL Routine 06/10/2025 12:14 PM EST SARS COV2/INFLUENZA A/B AND RSV RNA QL NAAT Routine 06/10/2025 12:14 PM EST SLIDE REVIEW Routine 04/26/2025 12:25 PM EDT CBC WITH AUTO DIFFERENTIAL Routine 04/26/2025 12:25 PM EDT HEMOGLOBIN A1C Routine 04/20/2025 11:55 AM EDT Microcytic anemia VITAMIN D,25-OH,TOTAL,IA Routine 04/05/2025 4:42 PM EDT PTH, INTACT WITHOUT CALCIUM Routine 04/05/2025 4:42 PM EDT ALBUMIN Routine 04/05/2025 4:42 PM EDT MAGNESIUM Routine 04/05/2025 4:42 PM EDT PHOSPHATE ( PHOSPHORUS) Routine 04/05/2025 4:42 PM EDT CALCIUM Routine 04/05/2025 4:42 PM EDT CREATININE, SERUM Routine 04/05/2025 4:4 2 PM EDT UREA NITROGEN (BUN) Routine 04/05/2025 4 :42 PM EDT ELECTROLYTE PANEL Routine 04/05/2025 4:4 2 PM EDT CBC WITH AUTO DIFFERENTIAL Routine 04/05/2025 4:42 PM EDT PROTEIN CREATININE RATIO, URINE Routine 04/05/2025 4:25 PM EDT ALBUMIN, RANDOM URINE W/CREATININE Routine 04/05/2025 4:25 PM EDT URINALYSIS, COMPLETE (INCLUDES MACRO AND MICRO) Routine 04/05/2025 4:25 PM EDT URINALYSIS WITH REFLEX TO MICROSCOPIC Routine 04/05/2025 4:25 PM EDT CBC WITH AUTO DIFFERENTIAL Routine 04/05/2025 1:41 PM EDT CBC WITH AUTO DIFFERENTIAL Routine 03/11/2025 11:58 AM EDT LIPID PANEL, STANDARD Routine 02/11/2025 11:32 AM EDT BI MAMMOGRAM SCREENING TOMOSYNTHESIS BILATERAL Routine 11/29/2023 2:40 PM EDT ZZZ HISTORICAL HEPATITIS C AB W/REFL TO HCV RNA, QN, PCR Routine 08/22/2021 8:22 AM EST HIV 1/2 ANTIGEN/ANTIBODY, FOURTH GENERATION W/RFL Routine 08/22/2021 8:22 AM EST from Last 3 Months or Most Recently Relevant to Health Maintenance Results * (ABNORMAL) Urinalysis, Complete, with Reflex to Culture (06/10/2025 12:42 PM EST) Color Urine Yellow [facility] Appearance Urine Clear [facility] PH 5.0 5.0 - 9.0 [facility] Glucose Urine UA Negative Negative mg/dL [facility] Urine Blood Trace(A) Negative [facility] Specific [place] - Urine 1.015 1.005 - 1.025 [facility] Urine Protein 300 (3+)(A) Neg-Trace mg/dL [facility] Urine Ketones Trace Negative mg/dL [facility] Nitrite Urine Negative Negative [facility] Leukocyte Esterase Urine Negative Negative [facility] RBC Urine 0-2 0 - 2 /HPF [facility] Urine WBC 0-5 0 - 5 /HPF [facility] Urine Squamous Epithelial Cell 6-10 0 - 2 /HPF [facility] Urine Bacteria 1+ None Seen [facility] Hyaline Casts, Urine 0-2 0 - 2 /LPF [facility] 06/10/2025 12:4 2 PM EST 06/10/2025 12:45 PM EST Narrative [facility] - 06/10/2025 1:04 PM EST Urine, Catheterized Generic External Data Provider LAB URINE ORDERAB LES Final Result Performing Organization Address [facility]/ZIP Co de Phone Number [facility] [address] [place] [phone] * (ABNORMAL) High Sensitivity Troponin I (06/10/2025 12:14 PM EST) TROPONIN I HIGH SENSITIVITY 22.2(H) <3.5 - 17.0 ng/L [facility] Comment:The Mabry high sens itivity Troponin-I results should beused in conjunction with other diagnostic information suchas ECG, clinical observations and information, and patientsymptoms to aid in the diagnosis of [place]. 06/10/2025 12:1 4 PM EST 06/10/2025 12:18 PM EST Generic External Data Provider LAB BLOOD ORDERAB LES Final Result Performing Organization Address [facility] Co de Phone Number [facility] [address] [place] [phone] * SARS-CoV-2 RNA, Influenza A/B, and RSV RNA, Ql NAAT (06/10/2025 12:14 PM EST) Pathologist [facility] Influenza A PCR NEGATIVE Negative [facility] Influenza B PCR NEGATIVE Negative [facility] Resp Syncy Virus RNA Qual PCR NEGATIVE Negative [facility] SARS COV2 PCR NEGATIVE Negative [facility] Comment:All test results mus t be correlated with clinical findings.Negative results do not preclude SARS-CoV2, influenza Avirus, influenza B virus and/or RSV infectionand should not be used as the sole basis for treatment orother patient management decisions. Negative results must becombined with clinical observations, patient history, andepidemiological information.This test has not been evaluated for monitoring treatment ofinfection.This test has been authorized by the FDA under an EmergencyUse Authorization (EUA) for use by authorized laboratories.Testing performed on the [email or web address] GeneXpert utilizingreal-time RT-PCR.All SARS CoV2 and positive influenza A/B results arereported to [facility]. 06/10/2025 12:1 4 PM EST 06/10/2025 12:18 PM EST Generic External Data Provider LAB MICROBIOLOGY - GENERAL ORDERABLES Final Result Performing Organization Address City/[facility]/ZIP Co de Phone Number [facility] [address] [place] [phone] * (ABNORMAL) NT-proBNP (06/10/2025 12:14 PM EST) NT-proBNP 25,586.5( H) <300 pg/mL [facility] Comment:Reference Range:Age Group (years) NT-proBNP (pg/ml) InterpretationAll <300 Negative: HF unlikelyFor patients presenting to the ED with clinical suspicion ofnew onset or worsening HF, see below:18 to <50 >299.9 to <450.0 [place]zone: [id number] to 75 >299.9 to <900.0 other causes of>75 >299.9 to <1800.0 NT-proBNP [id number] to <50 >449.9 Positive: HF [id number] >899.9>75 >1799.9Note: Elevated NT-proBNP levels should be interpreted inthe context of other clinical information. 06/10/2025 12:1 4 PM EST 06/10/2025 12:18 PM EST Generic External Data Provider LAB BLOOD ORDERAB LES Final Result Performing Organization Address [facility]/ZIP Co de Phone Number [facility] [address] [place] [phone] * (ABNORMAL) CBC auto differential (06/10/2025 12:14 PM EST) Only the most recent of5 resultswithin the time period is included. White Blood Count 11.3(H) 4.8 - 10.8 X10*3/uL [facility] Red Blood Count 6.16(H) 4.20 - 5.50 X10*6/uL [facility] Hemoglobin 11.9(L) 12.0 - 16.0 g/dl [facility] Hematocrit 39.3 37.0 - 47.0 % [facility] Mean Corpuscular Volume 63.8(L) 80.0 - 98.0 fL [facility] Mean Corpuscular Hemoglobin 19.3(L) 27.0 - 33.0 pg [facility] Mean Corpuscular HGB Conc 30.3(L) 31.0 - 35.0 g/dl [facility] Red Cell Distribution Width 19.9(H) 11.0 - 16.0 % [facility] Platelet Count 355 160 - 400 X10*3/uL [facility] Mean Platelet Volume 10.2 9.4 - 12.3 fL [facility] Neutrophils Percent Auto 75.8(H) 45 - 73 % [facility] Imm Gran Pct Auto 0.4 0.0 - 0.4 % [facility] Lymphocytes Percent Auto 10.8(L) 20 - 40 % [facility] Monocytes Percent Auto 10.6 2 - 11 % [facility] Eosinophils Percent Auto 1.9 0 - 4 % [facility] Basophils Percent Auto 0.5 0 - 2 % [facility] NRBC Pct Auto 0.4(H) 0.0 - 0.2 /100WBC [facility] Neutrophils Absolute Auto 8.5(H) 2.0 - 8.3 x10*3/uL [facility] Imm Gran Abs Auto 0.04(H) 0.00 - 0.03 X10*3/uL [facility] Lymphocytes Absolute Auto 1.2 1.2 - 4.9 X10*3/uL [facility] Monocytes Absolute Auto 1.2 0.1 - 1.2 X10*3/uL [facility] Eosinophils Absolute Auto 0.2 0.0 - 0.4 X10*3/uL [facility] Basophils Absolute Auto 0.1 0.0 - 0.2 X10*3/uL [facility] NRBC Abs Auto 0.040(H) 0.0 - 0.012 X10*3/uL [facility] 06/10/2025 12:1 4 PM EST 06/10/2025 12:18 PM EST us Generic External Data Provider LAB BLOOD ORDERAB LES Final Result Performing Organization Address City/[facility] Co de Phone Number [facility] [address] [place] [address] [phone] * Magnesium (06/10/2025 12:14 PM EST) Only the most recent of2 resultswithin the time period is included. Magnesium 2.3 1.6 - 2.6 mg/dL [facility] 06/10/2025 12:1 4 PM EST 06/10/2025 12:18 PM EST us Generic External Data Provider LAB BLOOD ORDERAB LES Final Result Performing Organization Address [facility] Co de Phone Number [facility] [address] [place] [address] [phone] * Lipase (06/10/2025 12:14 PM EST) Lipase 34 8 - 78 U/L [facility] 06/10/2025 12:1 4 PM EST 06/10/2025 12:18 PM EST Generic External Data Provider LAB BLOOD ORDERAB LES Final Result Performing Organization Address [facility] de Phone Number [facility] [address] [place] [address] [phone] * (ABNORMAL) Hepatic Function Panel (06/10/2025 12:14 PM EST) Bilirubin, Total 0.6 0.0 - 1.0 mg/dL [facility] Bilirubin, Direct 0.4 0.0 - 0.5 mg/dL [facility] Aspartate Amino Transferase 66(H) 5 - 31 U/L [facility] Alanine Aminotransferase 37(H) 0 - 31 U/L [facility] Total Protein 6.4(L) 6.5 - 8.0 g/dL [facility] Albumin Level 3.2(L) 3.5 - 5.0 g/dL [facility] Alkaline Phosphatase 147(H) 39 - 117 U/L [facility] 06/10/2025 12:1 4 PM EST 06/10/2025 12:18 PM EST us Generic External Data Provider LAB BLOOD ORDERAB LES Final Result [facility] [address] [place] [phone] * (ABNORMAL) Basic Metabolic Panel (06/10/2025 12:14 PM EST) Sodium 136 135 - 145 mmol/L [facility] Potassium 4.8 3.3 - 5.1 mmol/L [facility] Chloride 107 96 - 108 mmol/L [facility] Carbon Dioxide 20(L) 22 - 29 mmol/L [facility] Anion Gap 14 12 - 20 [facility] Urea Nitrogen (BUN) 56(H) 9 - 16 mg/dL [facility] Creatinine, Serum 2.12(H) 0.5 - 1.4 mg/dL [facility] Creatinine Clr Calc Pharmacy 27.2 [facility] Comment:Provided height and weight: 157.48 cm,81.647 kg.eGFR (calculated from the MDRD study equation) and eCrCl(calculated from the Cockcroft-Gault equation) are based ondifferent parameters and may not yield comparable results.If eCrCl result is absurd, please check patient'sheight/weight. Estimated Glomerular Filt Rate 24 [facility] Comment:Chronic Kidney Disea se: Estimated GFR < 60 mL/min/1.19r8Kabsse Kidney Disease: Estimated GFR < 15 mL/min/1.73m2 Glucose 184(H) 60 - 115 mg/dL [facility] Calcium 8.8 8.4 - 10.2 mg/dL [facility] 06/10/2025 12:1 4 PM EST 06/10/2025 12:18 PM EST us Generic External Data Provider LAB BLOOD ORDERAB LES Final Result Performing Organization Address [facility] de Phone Number [facility] [address] [place] [address] [phone] * Slide Review (04/26/2025 12:25 PM EDT) Slide Review VERIFIED [facility] 04/26/2025 12:2 5 PM EDT 04/26/2025 12:25 PM EDT us Generic External Data Provider LAB BLOOD ORDERAB LES Final Result Performing Organization Address [facility] Phone Number [facility] [address] [place] [address] [phone] * (ABNORMAL) Hemoglobin A1c (04/20/2025 11:55 AM EDT) Hemoglobin A1c >14.0(H) <6.0 % [facility] Comment:Hemoglobin A1C Refer ence Range Adults: 4.8 - 6.0 % Non diabetic: < 6.0 % Goal: < 7.0 %Additional Action Suggested: > 8.0 %Note: Hemoglobin A1c results are invalid for patients with abnormal amounts of HbF. Blood transfusions may impact the HbA1c concentration in the patient sample. Estimated Average Glucose TNP mg/dL [facility] 04/20/2025 11:5 5 AM EDT 04/20/2025 1:55 PM EDT us Rosalind Cardoso SEWING DEPARTMENT SUPERVISOR LAB BLOOD ORDERABLES Final Res ult Performing Organization Address [facility] de Phone Number [facility] [address] [place] [phone] * (ABNORMAL) Vitamin D, 25-Hydroxy, Total, Immunoassay (04/05/2025 4:42 PM EDT) Vitamin D 25-OH Total 25.6(L) >30 ng/mL [facility] Comment: Health Based Reference Values*< 20 ng/mL Tipldctxz30-37 ng/mL Insufficient> 30 ng/mL Sufficient*Mariam ELIZONDO. N Engl J Med. 2007;357:266-280There is no well-established upper level of normal vitamin Dlevels. Some laboratories use 50 ng/mL as an upper limit ofnormal. However, toxicity is patient-dependent and may occurat any level. Careful correlation with the patient'spresentation is necessary and, if there is concern forvitamin D toxicity, treatment should be consideredirrespective of the serum level.Care must be taken in interpreting Vitamin D results fromdifferent laboratories and methodologies. Published datademonstrated that results from patients undergoinghemodialysis may show a negative bias when tested withvarious automated 25-OH vitamin D assays when compared toLC-MS/MS.When testing samples from patients whose predominant form ofVitamin D is Vitamin D2, such as patients receiving VitaminD2 supplementation, results that are subtherapeutic shouldbe confirmed with another method such as LC-MS/MS. 04/05/2025 4:42 PM EDT 04/05/2025 4:42 PM EDT us Generic External Data Provider LAB BLOOD ORDERAB LES Final Result [facility] [address] [place] [phone] * (ABNORMAL) Creatinine, Serum (04/05/2025 4:42 PM EDT) Creatinine, Serum 1.71(H) 0.5 - 1.4 mg/dL [facility] Estimated Glomerular Filt Rate 30 [facility] Comment:Chronic Kidney Disea se: Estimated GFR < 60 mL/min/1.83n0Rmjpow Kidney Disease: Estimated GFR < 15 mL/min/1.73m2 04/05/2025 4:42 PM EDT 04/05/2025 4:42 PM EDT Generic External Data Provider LAB BLOOD ORDERAB LES Final Result Performing Organization Address [facility] Co de Phone Number [facility] [address] [place] [address] [phone] * (ABNORMAL) BUN (Blood Urea Nitrogen) (04/05/2025 4:42 PM EDT) Urea Nitrogen (BUN) 69(H) 9 - 16 mg/dL [facility] 04/05/2025 4:42 PM EDT 04/05/2025 4:42 PM EDT Generic External Data Provider LAB BLOOD ORDERAB LES Final Result Performing Organization Address [facility] Co de Phone Number [facility] [address] [place] [address] [phone] * (ABNORMAL) Phosphate (As Phosphorus) (04/05/2025 4:42 PM EDT) Phosphorus 4.9(H) 2.7 - 4.5 mg/dL [facility] 04/05/2025 4:42 PM EDT 04/05/2025 4:42 PM EDT Generic External Data Provider LAB BLOOD ORDERAB LES Final Result Performing Organization Address [facility] Co de Phone Number [facility] [address] [place] [address] [phone] * (ABNORMAL) PTH, Intact Without Calcium (04/05/2025 4:42 PM EDT) Parathyroid Hormone, Intact 91.1(H) 8.7 - 77.1 pg/mL [facility] 04/05/2025 4:42 PM EDT 04/05/2025 4:42 PM EDT us Generic External Data Provider LAB BLOOD ORDERAB LES Final Result Performing Organization Address [facility] Co de Phone Number [facility] [address] [place] [address] [phone] * Calcium (04/05/2025 4:42 PM EDT) Calcium 9.5 8.4 - 10.2 mg/dL [facility] 04/05/2025 4:42 PM EDT 04/05/2025 4:42 PM EDT Generic External Data Provider LAB BLOOD ORDERAB LES Final Result Performing Organization Address [facility] Phone Number [facility] [address] [place] [address] [phone] * Albumin (04/05/2025 4:42 PM EDT) Albumin Level 3.9 3.5 - 5.0 g/dL [facility] 04/05/2025 4:42 PM EDT 04/05/2025 4:42 PM EDT Generic External Data Provider LAB BLOOD ORDERAB LES Final Result Performing Organization Address [facility] de Phone Number [facility] [address] [place] [address] [phone] * Electrolyte Panel (04/05/2025 4:42 PM EDT) Sodium 138 135 - 145 mmol/L [facility] Potassium 4.4 3.3 - 5.1 mmol/L [facility] Chloride 100 96 - 108 mmol/L [facility] Carbon Dioxide 28 22 - 29 mmol/L [facility] Anion Gap 14 12 - 20 [facility] 04/05/2025 4:42 PM EDT 04/05/2025 4:42 PM EDT Generic External Data Provider LAB BLOOD ORDERAB LES Final Result Performing Organization Address [facility] Co de Phone Number [facility] [address] [place] [address] [phone] * (ABNORMAL) Protein Creatinine Ratio, Urine (04/05/2025 4:25 PM EDT) Protein, Total, Random Urine 383(H) <12 mg/dL [facility] Protein/Creati nine Ratio, Ur 5.68(H) <0.2 [facility] Comment:The spot urine prote in:creatinine ratio may increase to 0.3during normal . 04/05/2025 4:25 PM EDT 04/05/2025 5:17 PM EDT Generic External Data Provider LAB URINE ORDERAB LES Final Result Performing Organization Address [facility] de Phone Number [facility] [address] [place] [address] [phone] * (ABNORMAL) Urinalysis with Reflex to Microscopic (04/05/2025 4:25 PM EDT) Color Urine Yellow [facility] Appearance Urine Clear [facility] PH 5.5 5.0 - 9.0 [facility] Glucose Urine UA 500(A) Negative mg/dL [facility] Urine Blood Trace(A) Negative [facility] Specific [place] - Urine 1.015 1.005 - 1.025 [facility] Urine Protein 300 (3+)(A) Neg-Trace mg/dL [facility] Urine Ketones Negative Negative mg/dL [facility] Nitrite Urine Negative Negative [facility] Leukocyte Esterase Urine Negative Negative [facility] 04/05/2025 4:25 PM EDT 04/05/2025 5:17 PM EDT Generic External Data Provider LAB URINE ORDERAB LES Final Result Performing Organization Address [facility]/ZIP Co de Phone Number [facility] [address] [place] [address] [phone] * (ABNORMAL) Albumin, Random Urine W/Creatinine (04/05/2025 4:25 PM EDT) Creatinine, Urine 67.46 mg/dL [facility] Microalbumin Urine >2,000.0 mg/L [facility] Microalbum Creatinine Ratio Ur 2,964.7(H ) <30 ug/mg cr [facility] Comment:Albumin/Creatinine R atio Reference Ranges: Normal: < 30 ug/mg creatinine Microalbuminuria: 30 - 300 ug/mg creatinineClinical Albuminuria: > 300 ug/mg creatinine 04/05/2025 4:25 PM EDT 04/05/2025 5:17 PM EDT Generic External Data Provider LAB URINE ORDERAB LES Final Result Performing Organization Address [facility] Co de Phone Number [facility] [address] [place] [address] [phone] * (ABNORMAL) Urinalysis Complete (04/05/2025 4:25 PM EDT) Color Urine Yellow [facility] Appearance Urine Clear [facility] PH 5.5 5.0 - 9.0 [facility] Glucose Urine UA 500(A) Negative mg/dL [facility] Urine Blood Trace(A) Negative [facility] Specific [place] - Urine 1.015 1.005 - 1.025 [facility] Urine Protein 300 (3+)(A) Neg-Trace mg/dL [facility] Urine Ketones Negative Negative mg/dL [facility] Nitrite Urine Negative Negative [facility] Leukocyte Esterase Urine Negative Negative [facility] RBC Urine 0-2 0 - 2 /HPF [facility] Urine WBC 0-5 0 - 5 /HPF [facility] Urine Squamous Epithelial Cell 0-2 0 - 2 /HPF [facility] Urine Bacteria None Seen None Seen [facility] Hyaline Casts, Urine 3-5 0 - 2 /LPF [facility] 04/05/2025 4:25 PM EDT 04/05/2025 5:17 PM EDT us Generic External Data Provider LAB URINE ORDERAB LES Final Result Performing Organization Address [facility] Co de Phone Number [facility] [address] [place] [phone] * (ABNORMAL) Lipid Panel, Standard (02/11/2025 11:32 AM EDT) Triglycerides 189(H) <150 mg/dL [facility] Comment:Desirable Triglyceri de: less than 150 mg/dLBorderline High Triglyceride 150-199 mg/dLHigh Triglyceride: 200-499 mg/dLVery High Triglyceride: greater than or equal to 5OO mg/dL Cholesterol 214(H) <200 mg/dL [facility] Comment:Desirable Cholestero l: less than 200 mg/dLBorderline High Cholesterol: 200-239 mg/dLHigh Cholesterol: greater than 239 mg/dL LDL Cholesterol Calculated 152(H) <100 mg/dL [facility] Comment:Desirable LDL: less than 100 mg/dLNear Optimal/Above Optimal LDL: 110- 129 mg/dLBorderline High LDL: 130-159 mg/dLHigh LDL: 160-189 mg/dLVery High LDL: greater than or equal to 190 mg/dL HDL Cholesterol 25(L) >40 mg/dL [facility] Comment:Desirable HDL: great er than 40 mg/dL Note: This HDL assay may give artificially low results in patients with liver disease. 02/11/2025 11:3 2 AM EDT 02/11/2025 11:32 AM EDT us Generic External Data Provider LAB BLOOD ORDERAB LES Final Result [facility] [address] [place] [phone] * BI Mammogram Screening Tomosynthesis Bilateral (11/29/2023 2:40 PM EDT) Anatomical Region Laterality Modality Breast Bilateral Mammography 11/29/2023 2:40 PM EDT Narrative 12/27/2023 3:26 PM EDT [facility] [address] [place] [address] Mammography Report Signed Patient: Mitra Parish MR#: [id number] : 1965 Acct:[id number] Age/Sex: 58 / F ADM Date: 11/29/23 Loc: HO.MAMMO Attending Dr: Rosalind Cardoso SEWING DEPARTMENT SUPERVISOR Ordering Physician: Rosalind Cardoso Results: 1Negat moncho Date of Service: 11/29/23 Follow Up: 1 Year From Orig inal Mammogram Procedure(s): MM tomosynthesis screening BI Accession Number(s): [id number] cc: Rosalind Cardoso SEWING DEPARTMENT SUPERVISOR EXAMINATION: MM SCREENING DIGITAL BREAST TOMOSYNTHESIS, BILATERAL [...] in OV> 12/27/23 1522 DD/ 1440 TD/TT: Outpatient Coding Specialist: Procedure Note Donotuseinterpreter, Image - 12/27/2023 [facility] [address] [place] [address] Mammography Report Signed Patient: Dany Parish#: [id number] : 1965Acct:[id number] Age/Sex: 58 / FADM Date: 11/29/23 Loc: HO.MAMMO Attending Dr: Rosalind Cardoso SEWING DEPARTMENT SUPERVISOR Ordering Physician: Rosalind CardosoPResults: 1Negat moncho Date of Service: 11/29/23Follow Up: 1 Year From Orig inal Mammogram Procedure(s): MM tomosynthesis screening BI Accession Number(s): [id number] cc: Rosalind Cardoso EXAMINATION: MM SCREENING DIGITAL [...] in OV> 12/27/23 1522 DD/ 1440 TD/TT: Outpatient Coding Specialist: Rosalind MORELOS IMG BI PROCEDURES Final Result * HEPATITIS C AB W/REFL TO HCV RNA, QN, PCR (08/22/2021 8:22 AM EST) HEPATITIS C ANTIBODY NON-REACT MONCHO NON-REACT MONCHO [facility] INDEX 0.02 <1.00 [facility] Comment: HCV antibody was non-reactive. There is no laboratory evidence of HCV infection. In most cases, no further action is required. However, if recent HCV exposure is suspected, a test for HCV RNA (test code 00890) is suggested. For additional information please refer to [email or web address]/faq/TYE78j2 (This link is being provided for informational/ educational purposes only.) 08/22/2021 8:22 AM EST us Rosalind MORELOS HISTORICAL/NON ORDERABLE LABS Final Result Performing Organization Address [facility] Phone Number [facility] [place] [address], * HIV 1/2 ANTIGEN/ANTIBODY,FOURTH GENERATION W/RFL (08/22/2021 [...] purpose. For additional information please refer to [email or web address]/faq/DYK902 (This link is being provided for informational/ educational purposes only.) The performance of this assay has not been clinically validated in patients less than 2 years old. 08/22/2021 8:22 AM EST us Rosalind MORELOS LAB BLOOD ORDERABLES Final Res ult Performing Organization Address [facility] Phone Number [facility] [address] [place] [address] from Last 3 Months or Most Recently Relevant to Health Maintenance Additional Health Concerns Active Problems Noted Date [...] 06/05/2025 Patient has chronic kidney disease 06/05/2025 Weekly blood pressure task 06/10/2025 Weekly blood pressure task 06/10/2025 Patient has chronic kidney disease 06/10/2025 Patient has chronic kidney disease 06/10/2025 Insurance [facility] < 65 ZARIA HICKMAN [id number] Care Teams Enamel Shader Relationship Specialty Start Date End Date Rosalind Cardoso FNP [address] [place] [address] PCP - General Family Medicine 04/28/21 Barron Wetzel MD [address] [phone] Nephrology 01/15/25 Madeline Yo [address] [place] [address] Drive [address] [place] [address] Cardiology 01/15/25 Smart Devices 01/05/25
--- OUTSIDE RECORDS SUMMARY | 2025-06-10 13:37 | XMS_ITS | Encounter Summary ---
Author Organization [employer] Address [address] [place] [address] 7 [place] [address] Care Team Providers Care Supervisor Production Name Role Phone Rosalind Cardoso Primary Care Provider [phone] Barron Wetzel MD Unavailable [phone] Madeline Yo Unavailable Encounter Details Date Type Department Care Team (Late st Contact Info) Description 04/03/2024 Orders Only [facility] 230 [place] [address] Rosalind Cardoso FNP [address] [place], [place] [phone] Type 2 diabetes mellitus with stage 3 [...] - [facility] [address] [place] [address] Amira Ayoub PharmD 230 [place] [address] documented as of this encounter Visit Diagnoses [...] as of this encounter Care Teams Supervisor Production Relationship Specialty Start Date End Date Rosalind Cardoso FNP 230 [place] [address] PCP - General Family Medicine 04/28/21 Barron Wetzel MD [address] [facility] 200 [place] [address] Nephrology 01/15/25 Madeline Yo [address] 3rd [place] [address] Cardiology 01/15/25 [employer] 01/05/25 documented as of this encounter
--- OUTSIDE RECORDS SUMMARY | 2025-06-10 13:37 | XMS_ITS | Encounter Summary ---
Author Organization [employer] Address [address] [place] [address] 7 [place] [address] Care Team Providers Care Independent Jeweler Name Role Phone Rosalind Cardoso Primary Care Provider [phone] Barron Wetzel MD Unavailable [phone] Madeline Yo Unavailable Encounter Details Date Type Department Care Team (Late st Contact Info) Description 07/31/2024 Orders Only [facility] 505 [place], [place] [phone] Rosalind Cardoso FNP 505 [place], [place] [phone] Type 2 diabetes mellitus with stage 3 [...] [facility] 505 [place] [address] Amira Ayoub, PharmD 230 [place] [address] documented as of this encounter Visit Diagnoses [...] documented as of this encounter Care Teams Independent Jeweler Relationship Specialty Start Date End Date Rosalind Cardoso FNP 230 [place] [address] PCP - General Family Medicine 04/28/21 Barron Wetzel MD 100 [facility] 200 [place] [address] Nephrology 01/15/25 Madeline Yo [address] [place] [address] Drive 3rd [place] [address] Cardiology 01/15/25 [employer] 01/05/25 documented as of this encounter
--- OUTSIDE RECORDS SUMMARY | 2025-06-10 13:37 | XMS_ITS | Encounter Summary ---
Author Organization [employer] Address [address] [place] [address] 7 [place] [address] Care Team Providers Care Vice President Of Sales Name Role Phone Rosalind Cardoso Primary Care Provider [phone] Barron Wetzel MD Unavailable [phone] Madeline Yo Unavailable Encounter Details Date Type Department Care Team (Late st Contact Info) Description 04/17/2024 Orders Only [facility] 230 [place] [address] Rosalind Cardoso FNP [address] [place], [place] [phone] Type 2 diabetes mellitus with stage 3 [...] 06/16/2025 10:00 AM EST Telemedicine [facility] [address] [place] [address] Amira Ayoub PharmD 230 [place] [address] documented as of this encounter Visit Diagnoses [...] documented as of this encounter Care Teams Vice President Of Sales Relationship Specialty Start Date End Date Rosalind Cardoso FNP 230 [place] [address] PCP - General Family Medicine 04/28/21 Barron Wetzel MD [address] [facility] 200 [place] [address] Nephrology 01/15/25 Madeline Yo [address] 3rd [place] [address] Cardiology 01/15/25 [employer] 01/05/25 documented as of this encounter
--- OUTSIDE RECORDS SUMMARY | 2025-06-10 13:37 | XMS_ITS | Encounter Summary ---
Author Organization [employer] Address [address] [place] [address] 7 [place] [address] Care Team Providers Care Service Technician Copier Name Role Phone Rosalind Cardoso Primary Care Provider [phone] Barron Wetzel MD Unavailable [phone] Madeline Yo Unavailable Encounter Details Date Type Department Care Team (Late st Contact Info) Description 07/24/[address] [facility] 230 [place] [address] Rosalind Cardoso FNP [address] [place], [place] [phone] Type 2 diabetes mellitus with stage 3 [...] Description 06/16/2025 10:00 AM EST Telemedicine [facility] [address] [place] [address] Amira Ayoub PharmD 230 [place] [address] documented as of this encounter Visit Diagnoses [...] documented as of this encounter Care Teams Service Technician Copier Relationship Specialty Start Date End Date Rosalind Cardoso FNP 230 [place] [address] PCP - General Family Medicine 04/28/21 Barron Wetzel MD [address] [facility] 200 [place] [address] Nephrology 01/15/25 Madeline Yo [address] 3rd [place] [address] Cardiology 01/15/25 [employer] 01/05/25 documented as of this encounter
--- OUTSIDE RECORDS SUMMARY | 2025-06-10 13:37 | XMS_ITS | Encounter Summary ---
Author Organization [employer] Address [address] [place] [address] [facility] [place] [address] Care Team Providers Care First Aid Teacher Name Role Phone Rosalind Cardoso Primary Care Provider [phone] Barron Wetzel MD Unavailable [phone] Madeline Yo Unavailable Encounter Details Date Type Department Care Team (Late st Contact Info) Description 05/22/2024 Orders Only [facility] 505 [place], [place] [phone] Rosalind Cardoso FNP 505 [place], [place] [phone] Type 2 diabetes mellitus with stage 3 chronic kidney disease, with long-term current use of insulin, unspecified whether stage 3a or 3b CKD (CMS/HCC); Primary hypertension; Stage 3b chronic kidney disease ([facility]/HCC); History of amputation of left leg through tibia and fibula ([facility]); Low back pain at multiple sites; Type 2 diabetes mellitus with hyperglycemia, with long-term current use of insulin (CMS/[facility]); Type 2 diabetes mellitus with foot ulcer, with long-term current use of insulin ([facility]); Pure hypercholesterolemia, unspecified; Pain; Type 2 diabetes mellitus with hyperglycemia (CMS/HCC); Type 2 diabetes mellitus with other specified complication, unspecified whether terminal operations supervisor insulin use (CMS/HCC); Fibromyalgia Social History Tobacco [...] [facility] 505 [place] [address] Amira Ayoub, PharmD 230 [place] [address] documented as of this encounter Visit Diagnoses [...] with other specified complication, unspecified whether terminal operations supervisor insulin use (HCC) Fibromyalgia Unspecified myalgia and myositis documented in this encounter Additional Health Concerns Assessment Noted Time PHQ-9 Depression Total Score: 0 12/26/19 23 1:09 PM EDT documented as of this encounter Care Teams First Aid Teacher Relationship Specialty Start Date End Date Rosalind Cardoso FNP 230 [place] [address] PCP - General Family Medicine 04/28/21 Barron Wetzel MD 100 [facility] 200 [place] [address] Nephrology 01/15/25 Madeline Yo [address] [place] [address] 3rd [place] [address] Cardiology 01/15/25 [employer] 01/05/25 documented as of this encounter
--- OUTSIDE RECORDS SUMMARY | 2025-06-10 13:37 | XMS_ITS | Encounter Summary ---
Author Organization [employer] Address [address] [place] [address] 7 [place] [address] Care Team Providers Care Mobile Home Installer Name Role Phone Rosalind Cardoso Primary Care Provider [phone] Barron Wetzel MD Unavailable [phone] Madeline Yo Unavailable Encounter Details Date Type Department Care Team (Late st Contact Info) Description 05/15/2024 Orders Only [facility] 230 [place] [address] Rosalind Cardoso FNP [address] [place], [place] [phone] Type 2 diabetes mellitus with stage 3 [...] [facility] [address] [place] [address] Amira Ayoub PharmD 230 [place] [address] documented as of this encounter Visit Diagnoses [...] documented as of this encounter Care Teams Mobile Home Installer Relationship Specialty Start Date End Date Rosalind Cardoso FNP 230 [place] [address] PCP - General Family Medicine 04/28/21 Barron Wetzel MD [address] [facility] 200 [place] [address] Nephrology 01/15/25 Madeline Yo [address] 3rd [place] [address] Cardiology 01/15/25 [employer] 01/05/25 documented as of this encounter
--- OUTSIDE RECORDS SUMMARY | 2025-06-10 13:37 | XMS_ITS | Encounter Summary ---
Author Organization [employer] Address [address] [place] [address] 7 [place] [address] Care Team Providers Care Quality Assurance Tech Name Role Phone Rosalind Cardoso Primary Care Provider [phone] Barron Wetzel MD Unavailable [phone] Madeline Yo Unavailable Encounter Details Date Type Department Care Team (Late st Contact Info) Description 03/20/2024 Orders Only [facility] MED[facility] 230 [place] [address] Rosalind Cardoso FNP [address] [place], [place] [phone] Type 2 diabetes mellitus with stage 3 [...] Info) Description 06/16/2025 10:00 AM EST Telemedicine [facility] MED [facility] PEDS [address] [place] [address] Amira Ayoub PharmD 230 [place] [address] documented as of this encounter Visit Diagnoses [...] as of this encounter Care Teams Quality Assurance Tech Relationship Specialty Start Date End Date Rosalind Cardoso FNP 230 [place] [address] PCP - General Family Medicine 04/28/21 Barron Wetzel MD [address] [facility] 200 [place] [address] Nephrology 01/15/25 Madeline Yo [address] 3rd [place] [address] Cardiology 01/15/25 [employer] 01/05/25 documented as of this encounter
--- OUTSIDE RECORDS SUMMARY | 2025-06-10 13:37 | XMS_ITS | Encounter Summary ---
Author Organization [employer] Address [address] [place] [address] 7 [place] [address] Care Team Providers Care Technical Professional Name Role Phone Rosalind Cardoso Primary Care Provider [phone] Barron Wetzel MD Unavailable [phone] Madeline Yo Unavailable Reason for Visit * Reason Onset Date Comments Referral 04/23/2025 Encounter Details Date Type Department Care Team (Late st Contact Info) Description 04/23/2025 Telephone [facility] MEDICINE 230 [place] [address] Rosalind Cardoso FNP [address] [place], [place] [phone] Referral Social History Tobacco Use Types Packs/Day [...] * Telephone Encounter - Ina Lobo - 04/30/2025 10:15 AM EDT Referral mailed to patient to reach out and schedule appointment. Patient has CCA for insurance andwill not need authorization from us. No fax number provided for office and phone number provided only answers with a voicemail message. * Telephone Encounter - TAMY Ram - 04/28/2025 6:25 PM EDT Massage therapy referral placed 03/21/25. Per program development specialist note, pt was to check with insurance where she was eligible to be seen. Please proceed with sending referral information to the location below, thanks! * Telephone Encounter - James Fernandez - 04/23/2025 1:06 PM EDT TC from pt states needs Message Therapy Referral for : [employer] Message [address], [place], [place] [phone] documented in this encounter Plan of Treatment Upcoming Encounters Date Type Department Care Team (Late st Contact Info) Description 06/16/2025 10:00 AM EST Telemedicine [facility] [address] [place] [address] Amira Ayoub PharmD 230 [place] [address] documented as of this encounter Visit Diagnoses Not on filedocumented in this encounter Additional Health Concerns Assessment Noted Time PHQ-9 Depression Total Score: 6 08/03/19 9:07 AM EST documented as of this encounter Care Teams Technical Professional Relationship Specialty Start Date End Date Rosalind Cardoso FNP 230 [place] [address] PCP - General Family Medicine 04/28/21 Barron Wetzel MD 100 [facility] 200 [place] [address] Nephrology 01/15/25 Madeline Yo [address] [place] [address] 3rd [place] [address] Cardiology 01/15/25 [employer] 01/05/25 documented as of this encounter
--- OUTSIDE RECORDS SUMMARY | 2025-06-10 13:37 | XMS_ITS | Encounter Summary ---
Author Organization [employer] Address [address] [place] [address] 7 [place] [address] Care Team Providers Care Decal Decorator Name Role Phone Rosalind Cardoso Primary Care Provider [phone] Barron Wetzel MD Unavailable [phone] Madeline Yo Unavailable Encounter Details Date Type Department Care Team (Late st Contact Info) Description 07/17/2024 Orders Only [facility]S 505 [place], [place] [phone] Rosalind Cardoso FNP 505 [place], [place] [phone] Type 2 diabetes mellitus with stage 3 [...] 06/16/2025 10:00 AM EST Telemedicine [facility] 505 [place] [address] Amira Ayoub, PharmD 230 [place] [address] documented as of this encounter Procedures Procedure [...] Sedimentation Rate 50(H) 0 - 20 MM/HR [facility] Comment:Patients with polycy themia and many hemoglobin abnormalitiesmay have depressed sed rates whereas patients with anemiamay have elevated sed rates. Blood Venous blood specimen / Unknown 08/04/2024 10:17 AM EST 08/04/2024 10:17 AM EST Rosalind Phalen [facility] BLOOD ORDERABLES Final Res ult Performing Organization Address City/[facility]/ZIP Co de Phone Number [facility] [address] [place] [phone] * Magnesium (08/04/2024 10:17 AM EST) Pathologist [facility] Magnesium 2.3 1.6 - 2.6 mg/dL [facility] Blood Venous blood specimen / Unknown 08/04/2024 10:17 AM EST 08/04/2024 10:17 AM EST Rosalind Phalen [facility] BLOOD ORDERABLES Final Res ult Performing Organization Address City/[facility]/ZIP Co de Phone Number [facility] [address] [place] [phone] * (ABNORMAL) Comprehensive Metabolic Panel (08/04/2024 10:17 AM EST) Sodium 134(L) 135 - 145 mmol/L [facility] Potassium 4.1 3.3 - 5.1 mmol/L [facility] Chloride 100 96 - 108 mmol/L [facility] Carbon Dioxide 27 22 - 29 mmol/L [facility] Anion Gap 11(L) 12 - 20 [facility] Urea Nitrogen (BUN) 50(H) 9 - 16 mg/dL [facility] Creatinine, Serum 1.56(H) 0.5 - 1.4 mg/dL [facility] Estimated Glomerular Filt Rate 34 [facility] Comment:Chronic Kidney Disea se: Estimated GFR < 60 mL/min/[id number] Kidney Disease: Estimated GFR < 15 mL/min/1.73m2 Glucose 265(H) 60 - 115 mg/dL [facility] Calcium 9.1 8.4 - 10.2 mg/dL [facility] Bilirubin, Total 0.2 0.0 - 1.0 mg/dL [facility] Aspartate Amino Transferase 16 5 - 31 U/L [facility] Alanine Aminotransferase <6 0 - 31 U/L [facility] Total Protein 7.6 6.5 - 8.0 g/dL [facility] Albumin Level 3.6 3.5 - 5.0 g/dL [facility] Alkaline Phosphatase 101 39 - 117 U/L [facility] Blood Venous blood specimen / Unknown 08/04/2024 10:17 AM EST 08/04/2024 10:17 AM EST us Rosalind Cardoso INTERVENTION NURSE LAB BLOOD ORDERABLES Final Res ult [facility] [address] [place] [address] [phone] documented in this encounter Visit Diagnoses [...] documented as of this encounter Care Teams Decal Decorator Relationship Specialty Start Date End Date Rosalind Cardoso FNP 230 [place] [address] PCP - General Family Medicine 04/28/21 Barron Wetzel MD 100 [facility] 200 [place] [address] Nephrology 01/15/25 Madeline Yo [address] [place] [address] 3rd [place] [address] Cardiology 01/15/25 [employer] 01/05/25 documented as of this encounter
--- OUTSIDE RECORDS SUMMARY | 2025-06-10 13:37 | XMS_ITS | Encounter Summary ---
Author Organization [employer] Address [address] [place] [address] 7 [place] [address] Care Team Providers Care Capacity Manager Name Role Phone Rosalind Cardoso Primary Care Provider [phone] Barron Wetzel MD Unavailable [phone] Madeline Yo Unavailable Encounter Details Date Type Department Care Team (Late st Contact Info) Description 05/29/2024 Orders Only [facility] MEDICINE 230 [place] [address] Rsoalind Cardoso FNP [address] [place], [place] [phone] Type 2 diabetes mellitus with stage 3 [...] Description 06/16/2025 10:00 AM EST Telemedicine [facility] 505 [place] [address] Amira Ayoub, PharmD 230 [place] [address] documented as of this encounter Procedures Procedure [...] 2:18 PM EST) Triglycerides 266(H) <150 mg/dL [facility] Comment:Desirable Triglyceri de: less than 150 mg/dLBorderline High Triglyceride 150-199 mg/dLHigh Triglyceride: 200-499 mg/dLVery High Triglyceride: greater than or equal to 5OO mg/dL Cholesterol 250(H) <200 mg/dL [facility] Comment:Desirable Cholestero l: less than 200 mg/dLBorderline High Cholesterol: 200-239 mg/dLHigh Cholesterol: greater than 239 mg/dL LDL Cholesterol Calculated 161(H) <100 mg/dL [facility] Comment:Desirable LDL: less than 100 mg/dLNear Optimal/Above Optimal LDL: 110- 129 mg/dLBorderline High LDL: 130-159 mg/dLHigh LDL: 160-189 mg/dLVery High LDL: greater than or equal to 190 mg/dL HDL Cholesterol 36(L) >40 mg/dL [facility] Comment:Desirable HDL: great er than 40 mg/dL Note: This HDL assay may give artificially low results in patients with liver disease. 05/29/2024 2:18 PM EST 05/29/2024 2:18 PM EST us Generic External Data Provider LAB BLOOD ORDERAB LES Final Result [facility] [address] [place], [place] [phone] * (ABNORMAL) Comprehensive Metabolic Panel (05/29/2024 2:18 PM EST) Sodium 134(L) 135 - 145 mmol/L [facility] Potassium 4.0 3.3 - 5.1 mmol/L [facility] Chloride 99 96 - 108 mmol/L [facility] Carbon Dioxide 26 22 - 29 mmol/L [facility] Anion Gap 13 12 - 20 [facility] Urea Nitrogen (BUN) 41(H) 9 - 16 mg/dL [facility] Creatinine, Serum 1.49(H) 0.5 - 1.4 mg/dL [facility] Estimated Glomerular Filt Rate 36 [facility] Comment:Chronic Kidney Disea se: Estimated GFR < 60 mL/min/1.00q0Estziu Kidney Disease: Estimated GFR < 15 mL/min/1.73m2 Glucose 370(HH) 60 - 115 mg/dL [facility] Comment:Critical value for t est(s): GLUR Results called to concepcion back by: KJ Gallegos Person calling: HAKEEMRICKY Date:05/29/24Time:1558 Calcium 9.5 8.4 - 10.2 mg/dL [facility] Bilirubin, Total 0.3 0.0 - 1.0 mg/dL [facility] Aspartate Amino Transferase 65(H) 5 - 31 U/L [facility] Alanine Aminotransferase 64(H) 0 - 31 U/L [facility] Total Protein 6.9 6.5 - 8.0 g/dL [facility] Albumin Level 3.4(L) 3.5 - 5.0 g/dL [facility] Alkaline Phosphatase 146(H) 39 - 117 U/L [facility] 05/29/2024 2:18 PM EST 05/29/2024 2:18 PM EST us Generic External Data Provider LAB BLOOD ORDERAB LES Final Result [facility] [address] [place] [phone] * (ABNORMAL) CBC auto differential (05/29/2024 2:18 PM EST) White Blood Count 12.0(H) 4.8 - 10.8 X10*3/uL [facility] Red Blood Count 4.01(L) 4.20 - 5.50 X10*6/uL [facility] Hemoglobin 7.8(L) 12.0 - 16.0 g/dl [facility] Hematocrit 25.3(L) 37.0 - 47.0 % [facility] Mean Corpuscular Volume 63.1(L) 80.0 - 98.0 fL [facility] Mean Corpuscular Hemoglobin 19.5(L) 27.0 - 33.0 pg [facility] Mean Corpuscular HGB Conc 30.8(L) 31.0 - 35.0 g/dl [facility] Red Cell Distribution Width 15.3 11.0 - 16.0 % [facility] Platelet Count 312 160 - 400 X10*3/uL [facility] Mean Platelet Volume 10.4 9.4 - 12.3 fL [facility] Neutrophils Percent Auto 71.1 45 - 73 % [facility] Imm Gran Pct Auto 0.9(H) 0.0 - 0.4 % [facility] Lymphocytes Percent Auto 18.6(L) 20 - 40 % [facility] Monocytes Percent Auto 6.4 2 - 11 % [facility] Eosinophils Percent Auto 2.6 0 - 4 % [facility] Basophils Percent Auto 0.4 0 - 2 % [facility] NRBC Pct Auto 0.2 0.0 - 0.2 /100WBC [facility] Neutrophils Absolute Auto 8.6(H) 2.0 - 8.3 x10*3/uL [facility] Imm Gran Abs Auto 0.11(H) 0.00 - 0.03 X10*3/uL [facility] Lymphocytes Absolute Auto 2.2 1.2 - 4.9 X10*3/uL [facility] Monocytes Absolute Auto 0.8 0.1 - 1.2 X10*3/uL [facility] Eosinophils Absolute Auto 0.3 0.0 - 0.4 X10*3/uL [facility] Basophils Absolute Auto 0.1 0.0 - 0.2 X10*3/uL [facility] NRBC Abs Auto 0.020(H) 0.0 - 0.012 X10*3/uL [facility] 05/29/2024 2:18 PM EST 05/29/2024 2:18 PM EST us Generic External Data Provider LAB BLOOD ORDERAB LES Final Result [facility] [address] [place] [address] [phone] documented in this encounter Visit Diagnoses [...] documented as of this encounter Care Teams Capacity Manager Relationship Specialty Start Date End Date Rosalind Cardoso FNP [address] [place] [address] PCP - General Family Medicine 04/28/21 Barron Wetzel MD 100 [facility] 200 [place] [phone] Nephrology 01/15/25 Madeline Yo [address] [place] [address] Drive 3rd [place] [address] Cardiology 01/15/25 [employer] 01/05/25 documented as of this encounter
--- OUTSIDE RECORDS SUMMARY | 2025-06-10 13:37 | XMS_ITS | Encounter Summary ---
Author Organization [employer] Address [address] [place] [address] 7 [place] [address] Care Team Providers Care Primary Products Inspectors Name Role Phone Rosalind Cardoso Primary Care Provider [phone] Barron Wetzel MD Unavailable [phone] Madeline Yo Unavailable Encounter Details Date Type Department Care Team (Late st Contact Info) Description 05/08/2024 Orders Only [facility] CHC MED & PEDS 505 [place], [place] [phone] Rosalind Cardoso FNP 505 [place], [place] [phone] Type 2 diabetes mellitus with stage 3 [...] [facility] [address] [place] [address] Amira Ayoub PharmD 230 [place] [address] documented as of this encounter Visit Diagnoses [...] as of this encounter Care Teams Primary Products Inspectors Relationship Specialty Start Date End Date Rosalind Cardoso FNP 230 [place] [address] PCP - General Family Medicine 04/28/21 Barron Wetzel MD [address] [facility] 200 [place] [address] Nephrology 01/15/25 Madeline Yo [address] [place] [address] 3rd [place] [address] Cardiology 01/15/25 [employer] 01/05/25 documented as of this encounter
--- OUTSIDE RECORDS SUMMARY | 2025-06-10 13:37 | XMS_ITS | Encounter Summary ---
Author Organization [employer] Address [address] [place] [address] 7 [place] [address] Care Team Providers Care Electrical Prospecting Engineer Name Role Phone Rosalind Cardoso Primary Care Provider [phone] Barron Wetzel MD Unavailable [phone] Madeline Yo Unavailable Encounter Details Date Type Department Care Team (Late st Contact Info) Description 06/12/2024 Orders Only [facility] MEDICINE 230 [place] [address] Rosalind Cardoso FNP [address] [place], [place] [address] Type 2 diabetes mellitus with stage 3 [...] [facility] MED & PEDS [address] [place] [address] Amira Ayoub, PharmD 230 [place] [address] documented as of this encounter Procedures Procedure [...] Protein 0.50 < or = 0.50 mg/dL [facility] Blood Venous blood specimen / Unknown 06/23/2024 10:31 AM EST 06/23/2024 10:31 AM EST us Rosalind Cardoso CHILLING HOOD OPERATOR LAB BLOOD ORDERABLES Final Res ult Performing Organization Address City/[facility] Co de Phone Number [facility] [address] [place] [address] [phone] * Magnesium (06/23/2024 10:31 AM EST) Magnesium 1.8 1.6 - 2.6 mg/dL [facility] Blood Venous blood specimen / Unknown 06/23/2024 10:31 AM EST 06/23/2024 10:31 AM EST us Rosalind Janae [facility] LAB BLOOD ORDERABLES Final Res ult Performing Organization Address [facility] Co de Phone Number [facility] [address] [place] [address] [phone] documented in this encounter Visit Diagnoses [...] as of this encounter Care Teams Electrical Prospecting Engineer Relationship Specialty Start Date End Date Rosalind Cardoso FNP [address] [place] [phone] PCP - General Family Medicine 04/28/21 Barron Wetzel MD 100 [facility] 200 [place] [address] Nephrology 01/15/25 Madeline Yo [address] 3rd [place] [address] Cardiology 01/15/25 [employer] 01/05/25 documented as of this encounter
--- OUTSIDE RECORDS SUMMARY | 2025-06-10 13:37 | XMS_ITS | Encounter Summary ---
Author Organization [employer] Address [address] [place] [address] 7 [place] [address] Care Team Providers Care Hostage Negotiator Name Role Phone Rosalind Cardoso Primary Care Provider [phone] Barron Wetzel MD Unavailable [phone] Madeline Yo Unavailable Encounter Details Date Type Department Care Team (Late st Contact Info) Description 06/05/2024 Orders Only [facility] CHC MED & PEDS 505 [place], [place] [phone] Rosalind Cardoso FNP 505 [place], [place] [phone] Type 2 diabetes mellitus with stage 3 [...] Info) Description 06/16/2025 10:00 AM EST Telemedicine [facility] CHC MED & PEDS 505 [place] [address] Amira Ayoub, PharmD 230 [place] [address] documented as of this encounter Procedures Procedure [...] of left leg through tibia and fibula ([facility]/HCC) MAGNESIUM Routine 06/08/2024 9:25 AM EST Type 2 diabetes mellitus with stage 3 chronic kidney disease, with long-term current use of insulin, unspecified whether stage 3a or 3b CKD (CMS/HCC) Primary hypertension Stage 3b chronic kidney disease (CMS/HCC) History of amputation of left leg through tibia and fibula ([facility]/HCC) documented in this encounter Results * Prothrombin Time-INR (06/08/2024 9:25 AM EST) Prothrombin Time 11.7 10.9 - 12.4 SEC [facility] INTERNATIONAL NORM RATIO 1.0 0.9 - 1.1 [facility] Comment:INTERNATIONAL NORMAL IZED RATIO (INR) [...] 06/08/2024 9:25 AM EST us Rosalind Cardoso [facility] LAB BLOOD ORDERABLES Final Res ult [facility] 4 [place] [address] [phone] * (ABNORMAL) C-reactive Protein (06/08/2024 9:25 AM EST) C Reactive Protein 1.04(H) < or = 0.50 mg/dL [facility] Blood Venous blood specimen / Unknown 06/08/2024 9:25 AM EST 06/08/2024 9:25 AM EST us Rosalind Cardoso METALLURGICAL OR MATERIALS TECHNICIAN LAB BLOOD ORDERABLES Final Res ult Performing Organization Address [facility] Co de Phone Number [facility] [address] [place] [phone] * (ABNORMAL) Sed Rate by Modified Westergren (06/08/2024 9:25 AM EST) Erythrocyte Sedimentation Rate 54(H) 0 - 20 MM/HR [facility] Comment:Patients with polycy themia and many hemoglobin abnormalitiesmay have depressed sed rates whereas patients with anemiamay have elevated sed rates. Blood Venous blood specimen / Unknown 06/08/2024 9:25 AM EST 06/08/2024 9:25 AM EST us Rosalind Cardoso METALLURGICAL OR MATERIALS TECHNICIAN LAB BLOOD ORDERABLES Final Res ult Performing Organization Address [facility] [place]/[facility] Phone Number [facility] [address] [place] [phone] * Magnesium (06/08/2024 9:25 AM EST) Magnesium 1.9 1.6 - 2.6 mg/dL [facility] Blood Venous blood specimen / Unknown 06/08/2024 9:25 AM EST 06/08/2024 9:25 AM EST us Rosalind Cardoso METALLURGICAL OR MATERIALS TECHNICIAN LAB BLOOD ORDERABLES Final Res ult Performing Organization Address [facility] de Phone Number [facility] [address] [place] [phone] documented in this encounter Visit Diagnoses [...] documented as of this encounter Care Teams Hostage Negotiator Relationship Specialty Start Date End Date Rosalind Cardoso FNP 230 [place] [address] PCP - General Family Medicine 04/28/21 Barron Wetzel MD [address] [phone] Nephrology 01/15/25 Madeline Yo [address] [place] [address] Drive 3rd [place] [address] Cardiology 01/15/25 [employer] 01/05/25 documented as of this encounter
--- OUTSIDE RECORDS SUMMARY | 2025-06-10 13:38 | XMS_ITS | Encounter Summary ---
Author Organization [employer] Address [address] [place] [address] 7 [place] [address] Care Team Providers Care Account Support Rep Name Role Phone Rosalind Cardoso Primary Care Provider [phone] Barron Wetzel MD Unavailable [phone] Madeline Yo Unavailable Encounter Details Date Type Department Care Team (Late st Contact Info) Description 10/09/2024 Orders Only [facility] CHC MED & PEDS 505 [place], [place] [phone] Rosalind Cardoso FNP 505 [place], [place] [phone] Type 2 diabetes mellitus with stage 3 [...] Info) Description 06/16/2025 10:00 AM EST Telemedicine [facility] CHC MED & PEDS 505 [place] [address] Amira Ayoub, PharmD 230 [place] [address] documented as of this encounter Procedures Procedure [...] Primary hypertension Stage 3b chronic kidney disease ([facility]/HCC) History of amputation of left leg through tibia and fibula ([facility]) documented in this encounter Results * (ABNORMAL) Prothrombin Time-INR (12/24/2024 10:18 AM EDT) Prothrombin Time 12.6(H) 10.9 - 12.4 SEC [facility] INTERNATIONAL NORM RATIO 1.1 0.9 - 1.1 [facility] Comment:INTERNATIONAL NORMAL IZED RATIO (INR) [...] EDT 12/24/2024 10:18 AM EDT Rosalind Cardoso [facility] LAB BLOOD ORDERABLES Final Res ult Performing Organization Address [facility] Co de Phone Number [facility] [address] [place] [phone] * (ABNORMAL) C-reactive Protein (12/24/2024 10:18 AM EDT) C Reactive Protein 1.07(H) < or = 0.50 mg/dL [facility] Blood Venous blood specimen / Unknown 12/24/2024 10:18 AM EDT 12/24/2024 10:18 AM EDT Rosalind Mixalooedna ACCOUNT ADVISOR LAB BLOOD ORDERABLES Final Res ult Performing Organization Address City/[facility]/ZIP Co de Phone Number [facility] [address] [place] [phone] documented in this encounter Visit Diagnoses [...] as of this encounter Care Teams Account Support Rep Relationship Specialty Start Date End Date Rosalind Cardoso FNP 230 [place] [address] PCP - General Family Medicine 04/28/21 Barron Wetzel MD 100 [facility] 200 [place] [address] Nephrology 01/15/25 Madeline Yo [address] [place] [address] 3rd [place] [address] Cardiology 01/15/25 [employer] 01/05/25 documented as of this encounter
--- OUTSIDE RECORDS SUMMARY | 2025-06-10 13:38 | XMS_ITS | Encounter Summary ---
Author Organization [employer] Address [address] [place] [address] 7 [place] [address] Care Team Providers Care Mental Health Associate Name Role Phone Rosalind Cardoso Primary Care Provider Barron Wetzel MD Unavailable [phone] Madeline Yo Unavailable Encounter Details Date Type Department Care Team (Late st Contact Info) Description 11/06/2024 Orders Only [facility] CHC MED & PEDS 505 [place], [place] [phone] Rosalind Cardoso FNP 505 [place], [place] [phone] Type 2 diabetes mellitus with stage 3 [...] Info) Description 06/16/2025 10:00 AM EST Telemedicine [facility] CHC MED & PEDS 505 [place] [address] Amira Ayoub, PharmD 230 [place] [address] documented as of this encounter Procedures Procedure [...] EDT) Sodium 136 135 - 145 mmol/L [facility] Potassium 3.8 3.3 - 5.1 mmol/L [facility] Chloride 101 96 - 108 mmol/L [facility] Carbon Dioxide 26 22 - 29 mmol/L [facility] Anion Gap 13 12 - 20 [facility] Urea Nitrogen (BUN) 37(H) 9 - 16 mg/dL [facility] Creatinine, Serum 1.54(H) 0.5 - 1.4 mg/dL [facility] Estimated Glomerular Filt Rate 34 [facility] Comment:Chronic Kidney Disea se: Estimated GFR < 60 mL/min/[id number] Kidney Disease: Estimated GFR < 15 mL/min/1.73m2 Glucose 450(HH) 60 - 115 mg/dL [facility] Comment:Critical value for t est(s): GLUR Results called to and readback by: Person calling: [employer] Date: 12/21/24 Time:1753 Calcium 8.8 8.4 - 10.2 mg/dL [facility] Bilirubin, Total 0.3 0.0 - 1.0 mg/dL [facility] Aspartate Amino Transferase 19 5 - 31 U/L [facility] Alanine Aminotransferase 25 0 - 31 U/L [facility] Total Protein 6.4(L) 6.5 - 8.0 g/dL [facility] Albumin Level 3.4(L) 3.5 - 5.0 g/dL [facility] Alkaline Phosphatase 119(H) 39 - 117 U/L [facility] Blood Venous blood specimen / Unknown 12/21/2024 2:13 PM EDT 12/21/2024 4:02 PM EDT us Rosalind Cardoso FOOD SAFETY MANAGER LAB BLOOD ORDERABLES Final Res ult [facility] [address] [place] [phone] * Prothrombin Time-INR (12/18/2024 10:17 AM EDT) Prothrombin Time 11.8 10.9 - 12.4 SEC [facility] INTERNATIONAL NORM RATIO 1.0 0.9 - 1.1 [facility] Comment:INTERNATIONAL NORMAL IZED RATIO (INR) REFERENCE [...] EDT 12/18/2024 10:17 AM EDT Rosalind Cardoso FOOD SAFETY MANAGER LAB BLOOD ORDERABLES Final Res ult Performing Organization Address [facility] Co de Phone Number [facility] [address] [place] [phone] * (ABNORMAL) C-reactive Protein (12/18/2024 10:17 AM EDT) C Reactive Protein 0.65(H) < or = 0.50 mg/dL [facility] Blood Venous blood specimen / Unknown 12/18/2024 10:17 AM EDT 12/18/2024 10:17 AM EDT Rosalind Cardoso [facility] LAB BLOOD ORDERABLES Final Res ult Performing Organization Address [facility] de Phone Number [facility] [address] [place] [phone] * (ABNORMAL) Sed Rate by Modified Mangoergren (12/18/2024 10:17 AM EDT) Erythrocyte Sedimentation Rate 25(H) 0 - 20 MM/HR [facility] Comment:Patients with polycy themia and many hemoglobin abnormalitiesmay have depressed sed rates whereas patients with anemiamay have elevated sed rates. Blood Venous blood specimen / Unknown 12/18/2024 10:17 AM EDT 12/18/2024 10:17 AM EDT Rosalind Cardoso [facility] LAB BLOOD ORDERABLES Final Res ult Performing Organization Address [facility] Co de Phone Number [facility] [address] [place] [address] [phone] * Magnesium (12/18/2024 10:17 AM EDT) Magnesium 1.9 1.6 - 2.6 mg/dL [facility] Blood Venous blood specimen / Unknown 12/18/2024 10:17 AM EDT 12/18/2024 10:17 AM EDT Rosalind MORELOS LAB BLOOD ORDERABLES Final Res ult [facility] [address] [place] [address] [phone] documented in this encounter Visit Diagnoses [...] documented as of this encounter Care Teams Mental Health Associate Relationship Specialty Start Date End Date Rosalind Cardoso FNP [address] [place] [address] PCP - General Family Medicine 04/28/21 Barron Wetzel MD 100 [facility] 200 [place] [address] Nephrology 01/15/25 Madeline Yo [address] [place] [address] 3rd [place] [address] Cardiology 01/15/25 [employer] 01/05/25 documented as of this encounter
--- OUTSIDE RECORDS SUMMARY | 2025-06-10 13:38 | XMS_ITS | Encounter Summary ---
Author Organization [employer] Address [address] [place] [address] 7 [place] [address] Care Team Providers Care Mds Rn Name Role Phone Rosalind Cardoso Primary Care Provider [phone] Barron Wetzel MD Unavailable [phone] Madeline Yo Unavailable Encounter Details Date Type Department Care Team (Late st Contact Info) Description 11/20/2024 Orders Only [facility] CHC MED & PEDS 505 [place], [place] [phone] Rosalind Cardoso FNP 505 [place], [place] [phone] Type 2 diabetes mellitus with stage 3 [...] EST Telemedicine [facility] CHC MED & PEDS 505 [place] [address] Amira Ayoub, PharmD 230 [place] [address] documented as of this encounter Procedures Procedure [...] Blood Count 8.5 4.8 - 10.8 X10*3/uL [facility] Red Blood Count 4.66 4.20 - 5.50 X10*6/uL [facility] Hemoglobin 9.0(L) 12.0 - 16.0 g/dl [facility] Hematocrit 31.0(L) 37.0 - 47.0 % [facility] Mean Corpuscular Volume 66.5(L) 80.0 - 98.0 fL [facility] Mean Corpuscular Hemoglobin 19.3(L) 27.0 - 33.0 pg [facility] Mean Corpuscular HGB Conc 29.0(L) 31.0 - 35.0 g/dl [facility] Red Cell Distribution Width 18.9(H) 11.0 - 16.0 % [facility] Platelet Count 313 160 - 400 X10*3/uL [facility] Mean Platelet Volume 11.7 9.4 - 12.3 fL [facility] Neutrophils Percent Auto 67.0 45 - 73 % [facility] Imm Gran Pct Auto 0.5(H) 0.0 - 0.4 % [facility] Lymphocytes Percent Auto 21.9 20 - 40 % [facility] Monocytes Percent Auto 7.8 2 - 11 % [facility] Eosinophils Percent Auto 2.2 0 - 4 % [facility] Basophils Percent Auto 0.6 0 - 2 % [facility] NRBC Pct Auto 0.9(H) 0.0 - 0.2 /100WBC [facility] Neutrophils Absolute Auto 5.7 2.0 - 8.3 x10*3/uL [facility] Imm Gran Abs Auto 0.04(H) 0.00 - 0.03 X10*3/uL [facility] Lymphocytes Absolute Auto 1.9 1.2 - 4.9 X10*3/uL [facility] Monocytes Absolute Auto 0.7 0.1 - 1.2 X10*3/uL [facility] Eosinophils Absolute Auto 0.2 0.0 - 0.4 X10*3/uL [facility] Basophils Absolute Auto 0.1 0.0 - 0.2 X10*3/uL [facility] NRBC Abs Auto 0.080(H) 0.0 - 0.012 X10*3/uL [facility] Blood Venous blood specimen / Unknown 12/21/2024 2:13 PM EDT 12/21/2024 4:02 PM EDT us Rosalind Cardoso FENCE BUILDER LAB BLOOD ORDERABLES Final Res ult [facility] [address] [place], [place] [phone] * (ABNORMAL) Comprehensive Metabolic Panel (12/18/2024 10:17 AM EDT) Sodium 136 135 - 145 mmol/L [facility] Potassium 3.9 3.3 - 5.1 mmol/L [facility] Chloride 101 96 - 108 mmol/L [facility] Carbon Dioxide 27 22 - 29 mmol/L [facility] Anion Gap 12 12 - 20 [facility] Urea Nitrogen (BUN) 53(H) 9 - 16 mg/dL [facility] Creatinine, Serum 2.24(H) 0.5 - 1.4 mg/dL [facility] Estimated Glomerular Filt Rate 22 [facility] Comment:Chronic Kidney Disea se: Estimated GFR < 60 mL/min/[id number] Kidney Disease: Estimated GFR < 15 mL/min/1.73m2 Glucose 143(H) 60 - 115 mg/dL [facility] Calcium 9.1 8.4 - 10.2 mg/dL [facility] Bilirubin, Total 0.4 0.0 - 1.0 mg/dL [facility] Aspartate Amino Transferase 32(H) 5 - 31 U/L [facility] Alanine Aminotransferase 22 0 - 31 U/L [facility] Total Protein 6.7 6.5 - 8.0 g/dL [facility] Albumin Level 3.6 3.5 - 5.0 g/dL [facility] Alkaline Phosphatase 122(H) 39 - 117 U/L [facility] Blood Venous blood specimen / Unknown 12/18/2024 10:17 AM EDT 12/18/2024 10:17 AM EDT Rosalind Cardoso FENCE BUILDER LAB BLOOD ORDERABLES Final Res ult Performing Organization Address [facility] Co de Phone Number [facility] [address] [place] [phone] * Prothrombin Time-INR (11/26/2024 9:01 AM EDT) Prothrombin Time 11.1 10.9 - 12.4 SEC [facility] INTERNATIONAL NORM RATIO 1.0 0.9 - 1.1 [facility] Comment:INTERNATIONAL NORMAL IZED RATIO [...] EDT 11/26/2024 11:04 AM EDT Rosalind Cardoso FENCE BUILDER LAB BLOOD ORDERABLES Final Res ult Performing Organization Address [facility] Co de Phone Number [facility] [address] [place] [phone] * (ABNORMAL) C-reactive Protein (11/26/2024 9:01 AM EDT) C Reactive Protein 1.56(H) < or = 0.50 mg/dL [facility] Blood Venous blood specimen / Unknown 11/26/2024 9:01 AM EDT 11/26/2024 11:04 AM EDT us Rosalind Cardoso FENCE BUILDER LAB BLOOD ORDERABLES Final Res ult Performing Organization Address City/[facility]/ZIP Co de Phone Number [facility] [address] [place] [phone] * (ABNORMAL) Sed Rate by Modified Westergren (11/26/2024 9:01 AM EDT) Erythrocyte Sedimentation Rate 48(H) 0 - 20 MM/HR [facility] Comment:Patients with polycy themia and many hemoglobin abnormalitiesmay have depressed sed rates whereas patients with anemiamay have elevated sed rates. Blood Venous blood specimen / Unknown 11/26/2024 9:01 AM EDT 11/26/2024 11:04 AM EDT Rosalind Cardoso FENCE BUILDER LAB BLOOD ORDERABLES Final Res ult Performing Organization Address [facility]/ZIP Co de Phone Number [facility] [address] [place] [phone] * Magnesium (11/26/2024 9:01 AM EDT) Pathologist [facility] Magnesium 2.2 1.6 - 2.6 mg/dL [facility] Blood Venous blood specimen / Unknown 11/26/2024 9:01 AM EDT 11/26/2024 11:04 AM EDT Rosalind Cardoso [facility] LAB BLOOD ORDERABLES Final Res ult Performing Organization Address [facility]/ZIP Co de Phone Number [facility] [address] [place] [phone] documented in this encounter Visit Diagnoses [...] documented as of this encounter Care Teams Mds Rn Relationship Specialty Start Date End Date Rosalind Cardoso FNP [address] [place] [phone] PCP - General Family Medicine 04/28/21 Barron Wetzel MD 100 [facility] [address] [facility] 200 [place] [phone] Nephrology 01/15/[address] [place] [address] Cardiology 01/15/25 [employer] 01/05/25 documented as of this encounter
--- OUTSIDE RECORDS SUMMARY | 2025-06-10 13:38 | XMS_ITS | Encounter Summary ---
Author Organization [employer] Address [address] [place] [address] 7 [place] [address] Care Team Providers Care Semiconductor Packages Platemaker Name Role Phone Rosalind Cardoso Primary Care Provider [phone] Barron Wetzel MD Unavailable [phone] Madeline Yo Unavailable Encounter Details Date Type Department Care Team (Late st Contact Info) Description 10/23/2024 Orders Only [facility] MED & PEDS [address] [place], [place] [phone] Rosalind Cardoso FNP [address] [place], [place] [phone] Type 2 diabetes mellitus with stage 3 [...] Info) Description 06/16/2025 10:00 AM EST Telemedicine [facility] MED & PEDS [address] [place] [address] Amira Ayoub, PharmD [address] [place] [address] documented as of this encounter Procedures Procedure [...] Prothrombin Time 12.3 10.9 - 12.4 SEC [facility] INTERNATIONAL NORM RATIO 1.1 0.9 - 1.1 [facility] Comment:INTERNATIONAL NORMAL IZED RATIO [...] 12/21/2024 4:02 PM EDT us Rosalind Cardoso ACCOUNTING TUTOR LAB BLOOD ORDERABLES Final Res ult [facility] [address] [place] [phone] * (ABNORMAL) C-reactive Protein (12/21/2024 2:13 PM EDT) Pathologist [facility] C Reactive Protein 1.65(H) < or = 0.50 mg/dL [facility] Blood Venous blood specimen / Unknown 12/21/2024 2:13 PM EDT 12/21/2024 4:02 PM EDT Rosalind Cardoso [facility] LAB BLOOD ORDERABLES Final Res ult Performing Organization Address [facility] de Phone Number [facility] [address] [place] [phone] * Magnesium (12/21/2024 2:13 PM EDT) [facility] Magnesium 1.9 1.6 - 2.6 mg/dL [facility] Blood Venous blood specimen / Unknown 12/21/2024 2:13 PM EDT 12/21/2024 4:02 PM EDT Rosalind Cardoso [facility] LAB BLOOD ORDERABLES Final Res ult Performing Organization Address [facility] de Phone Number [facility] [address] [place] [phone] * (ABNORMAL) Comprehensive Metabolic Panel (11/26/2024 9:01 AM EDT) [facility] Sodium 138 135 - 145 mmol/L [facility] Potassium 3.7 3.3 - 5.1 mmol/L [facility] Chloride 103 96 - 108 mmol/L [facility] Carbon Dioxide 26 22 - 29 mmol/L [facility] Anion Gap 13 12 - 20 [facility] Urea Nitrogen (BUN) 30(H) 9 - 16 mg/dL [facility] Creatinine, Serum 1.80(H) 0.5 - 1.4 mg/dL [facility] Estimated Glomerular Filt Rate 29 [facility] Comment:Chronic Kidney Disea se: Estimated GFR < 60 mL/min/[id number] Kidney Disease: Estimated GFR < 15 mL/min/1.73m2 Glucose 449(HH) 60 - 115 mg/dL [facility] Comment:Critical value for t est(s): GLUR Results called to concepcion back by: FAITH Velasquez Person calling: LEAT Date: 11/26/24Time: 1253 Calcium 9.1 8.4 - 10.2 mg/dL [facility] Bilirubin, Total 0.4 0.0 - 1.0 mg/dL [facility] Aspartate Amino Transferase 22 5 - 31 U/L [facility] Alanine Aminotransferase 19 0 - 31 U/L [facility] Total Protein 6.7 6.5 - 8.0 g/dL [facility] Albumin Level 3.6 3.5 - 5.0 g/dL [facility] Alkaline Phosphatase 117 39 - 117 U/L [facility] Blood Venous blood specimen / Unknown 11/26/2024 9:01 AM EDT 11/26/2024 11:04 AM EDT us Rosalind MORELOS LAB BLOOD ORDERABLES Final Res ult [facility] [address] [place] [phone] documented in this encounter Visit Diagnoses [...] documented as of this encounter Care Teams Semiconductor Packages Platemaker Relationship Specialty Start Date End Date Rosalind Cardoso FNP [address] [place] [phone] PCP - General Family Medicine 04/28/21 Barron Wetzel MD [address] [facility] [address] [place] [address] Nephrology 01/15/25 Madeline Yo [address] [place] [address] 3rd [place] [address] Cardiology 01/15/25 [employer] 01/05/25 documented as of this encounter
--- OUTSIDE RECORDS SUMMARY | 2025-06-10 13:38 | XMS_ITS | Encounter Summary ---
Author Organization [employer] Address [address] [place] [address] [address] [place] [address] Care Team Providers Care Paper Cup Handle Machine Operator Name Role Phone Rosalind Cardoso Primary Care Provider [phone] Barron Wetzel MD Unavailable Madeline Yo Unavailable Reason for Visit * Reason Comments Med Refill Encounter Details Date Type Department Care Team (Late st Contact Info) Description 07/10/2022 Refill [facility] MED & PEDS [address] [place] [address] Rosalind Cardoso FNP [address] [place], [place] [phone] Primary hypertension; Type 2 diabetes mellitus with other specified complication, unspecified whether biofuels production manager insulin use ([facility]) Social History [...] Info) Description 06/16/2025 10:00 AM EST Telemedicine [facility] MED & PEDS [address] [place] [address] Amira Ayoub PharmD [address] [place] [address] documented as of this encounter Visit Diagnoses Diagnosis Primary hypertension Unspecified essential hypertension Type 2 diabetes mellitus with other specified complication, unspecified whether mcfp insulin use (HCC) documented in this encounter Care Teams Paper Cup Handle Machine Operator Relationship Specialty Start Date End Date Rosalind Cardoso FNP [address] [place] [address] PCP - General Family Medicine 04/28/21 Barron Wetzel MD 100 [facility] 200 [place] [address] Nephrology 01/15/25 Madeline Yo [address] [place] [address] Drive 3rd [place] [address] Cardiology 01/15/25 [employer] 01/05/25 documented as of this encounter
--- OUTSIDE RECORDS SUMMARY | 2025-06-10 13:38 | XMS_ITS | Encounter Summary ---
Author Organization [employer] Address [address] [place] [address] 7t [place] [address] Care Team Providers Care Meat Stringer Name Role Phone TeoRosalind bishop TAMY Primary Care Provider [phone] Barron Wetzel MD Unavailable [phone] Srinath, Madeline Unavailable Encounter Details Date Type Department Care Team ([facility] Contact Info) Description 06/10/2025 Orders Only GENERIC EXTERNAL DATA [...] Info) Description 06/16/2025 10:00 AM EST Telemedicine [facility] CH[facility] MED & PEDS [address] [place] [address] Amira Ayoub PharmD [address] [place] [address] documented as of this encounter Goals Goal [...] their type 2 diabetes No Amira Ayoub PharmMathew Patient has chronic kidney disease Care Plan Patient has chronic kidney disease No Amira Ayoub PharmD Weekly blood pressure task Care Plan Weekly blood pressure task No Amira Ayoub PharmMathew Patient has chronic kidney disease Care Plan Patient has chronic kidney disease No Amira Ayoub PharmMathew Weekly blood pressure task Care Plan Weekly [...] Weekly blood pressure task No Phalen, Rosalind, TALENT ACQUISITION ASSOCIATE Weekly blood pressure task Care Plan Weekly blood pressure task No Phalen, Rosalind, TALENT ACQUISITION ASSOCIATE Patient has chronic kidney disease Care Plan Patient has chronic kidney disease No Phalen, Rosalind, TALENT ACQUISITION ASSOCIATE Patient has chronic kidney disease Care Plan Patient has chronic kidney disease No Phalen, Rosalind, TALENT ACQUISITION ASSOCIATE Weekly blood pressure task Care Plan Weekly blood pressure task No Colon, Ina Weekly blood pressure task Care Plan Weekly blood pressure task No Colon, Ina Patient has chronic kidney disease Care Plan Patient has chronic kidney disease No Colon, Ina Patient has chronic kidney disease Care Plan Patient has chronic kidney disease No Colon, Ina documented as of this encounter Procedures Procedure Name Priority Date/Time Associated Diagnosis Comments URINALYSIS, COMPLETE, WITH REFLEX TO CULTURE Routine 06/10/2025 12:42 PM EST HIGH SENSITIVITY TROPONIN I Routine 06/10/2025 12:14 PM EST SARS COV2/INFLUENZA A/B AND RSV RNA QL NAAT Routine 06/10/2025 12:14 PM EST NT-PROBNP Routine 06/10/2025 12:14 PM EST CBC WITH AUTO DIFFERENTIAL Routine 06/10/2025 12:14 PM EST MAGNESIUM Routine 06/10/2025 12:14 PM EST LIPASE Routine 06/10/2025 12:14 PM EST HEPATIC FUNCTION PANEL Routine 06/10/2025 12:14 PM EST BASIC METABOLIC PANEL Routine 06/10/2025 12:14 PM EST documented in this encounter Results * (ABNORMAL) Urinalysis, Complete, with Reflex to Culture (06/10/2025 12:42 PM EST) Color Urine Yellow [facility] Appearance Urine Clear [facility] PH 5.0 5.0 - 9.0 [facility] Glucose Urine UA Negative Negative mg/dL [facility] Urine Blood Trace(A) Negative [facility] Specific Valentine - Urine 1.015 1.005 - 1.025 [facility] Urine Protein 300 (3+)(A) Neg-Trace mg/dL [facility] Urine Ketones Trace Negative mg/dL [facility] Nitrite Urine Negative Negative [facility] Leukocyte Esterase Urine Negative Negative [facility] RBC Urine 0-2 0 - 2 /HPF [facility] Urine WBC 0-5 0 - 5 /HPF [facility] Urine Squamous Epithelial Cell 6-10 0 - 2 /HPF [facility] Urine Bacteria 1+ None Seen [facility] Hyaline Casts, Urine 0-2 0 - 2 /LPF [facility] 06/10/2025 12:4 2 PM EST 06/10/2025 12:45 PM EST Narrative [facility] - 06/10/2025 1:04 PM EST Urine, Catheterized us Generic External Data Provider LAB URINE ORDERAB LES Final Result [facility] [address] [place] [phone] [phone] * SARS-CoV-2 RNA, Influenza A/B, and RSV RNA, Ql NAAT (06/10/2025 12:14 PM EST) Influenza A PCR NEGATIVE Negative [facility] Influenza B PCR NEGATIVE Negative [facility] Resp Syncy Virus RNA Qual PCR NEGATIVE Negative [facility] SARS COV2 PCR NEGATIVE Negative [facility] Comment:All test results mus t be [...] use by authorized laboratories.Testing performed on the [employer] GeneXpert utilizingreal-time RT-PCR.All SARS CoV2 and positive influenza A/B results arereported to [facility]. 06/10/2025 12:1 4 PM EST 06/10/2025 12:18 PM EST Generic External Data Provider LAB MICROBIOLOGY - GENERAL ORDERABLES Final Result Performing Organization Address [facility] de Phone [facility] [address] [place] [phone] * (ABNORMAL) High Sensitivity Troponin I (06/10/2025 12:14 PM EST) [facility] TROPONIN I HIGH SENSITIVITY 22.2(H) <3.5 - 17.0 ng/L [facility] Comment:The Mabry high sens itivity Troponin-I results should beused in conjunction with other diagnostic information suchas ECG, clinical observations and information, and patientsymptoms to aid in the diagnosis of NE. 06/10/2025 12:1 4 PM EST 06/10/2025 12:18 PM EST Generic External Data Provider LAB BLOOD ORDERAB LES Final Result Performing Organization Address [facility] de Phone Number [facility] [address] [place] [phone] * (ABNORMAL) NT-proBNP (06/10/2025 12:14 PM EST) [facility] NT-proBNP 25,586.5( H) <300 pg/mL [facility] Comment:Reference Range:Age Group (years) NT-proBNP (pg/ml) InterpretationAll <300 Negative: HF unlikelyFor patients presenting to the ED with clinical suspicion ofnew onset or worsening HF, see below:18 to <50 >299.9 to <450.0 Grayzone: [id number] to 75 >299.9 to <900.0 other causes of>75 >299.9 to <1800.0 NT-proBNP [id number] to <50 >449.9 Positive: HF [id number] >899.9>75 >1799.9Note: Elevated NT-proBNP levels should be interpreted inthe context of other clinical information. 06/10/2025 12:1 4 PM EST 06/10/2025 12:18 PM EST Generic External Data Provider LAB BLOOD ORDERAB LES Final Result Performing Organization Address [facility] Co de Phone Number [facility] [address] [place] [phone] * Lipase (06/10/2025 12:14 PM EST) Lipase 34 8 - 78 U/L [facility] 06/10/2025 12:1 4 PM EST 06/10/2025 12:18 PM EST Generic External Data Provider LAB BLOOD ORDERAB LES Final Result Performing Organization Address [facility] Co de Phone Number [facility] [address] [place] [phone] * Magnesium (06/10/2025 12:14 PM EST) Magnesium 2.3 1.6 - 2.6 mg/dL [facility] 06/10/2025 12:1 4 PM EST 06/10/2025 12:18 PM EST Generic External Data Provider LAB BLOOD ORDERAB LES Final Result Performing Organization Address City/[facility]/ZIP Co de Phone Number [facility] [address] [place] [phone] * (ABNORMAL) Basic Metabolic Panel (06/10/2025 12:14 PM EST) Sodium 136 135 - 145 mmol/L [facility] Potassium 4.8 3.3 - 5.1 mmol/L [facility] Chloride 107 96 - 108 mmol/L [facility] Carbon Dioxide 20(L) 22 - 29 mmol/L [facility] Anion Gap 14 12 - 20 [facility] Urea Nitrogen (BUN) 56(H) 9 - 16 mg/dL [facility] Creatinine, Serum 2.12(H) 0.5 - 1.4 mg/dL [facility] Creatinine Clr Calc Pharmacy 27.2 [facility] Comment:Provided height and weight: 157.48 cm,81.647 kg.eGFR (calculated from the MDRD study equation) and eCrCl(calculated from the Cockcroft-Gault equation) are based ondifferent parameters and may not yield comparable results.If eCrCl result is absurd, please check patient'sheight/weight. Estimated Glomerular Filt Rate 24 [facility] Comment:Chronic Kidney Disea se: Estimated GFR < 60 mL/min/[id number] Kidney Disease: Estimated GFR < 15 mL/min/1.73m2 Glucose 184(H) 60 - 115 mg/dL [facility] Calcium 8.8 8.4 - 10.2 mg/dL [facility] 06/10/2025 12:1 4 PM EST 06/10/2025 12:18 PM EST us Generic External Data Provider LAB BLOOD ORDERAB LES Final Result Performing Organization Address City/[facility]/ZIP Co de Phone Number [facility] [address] [place] [phone] * (ABNORMAL) Hepatic Function Panel (06/10/2025 12:14 PM EST) Bilirubin, Total 0.6 0.0 - 1.0 mg/dL [facility] Bilirubin, Direct 0.4 0.0 - 0.5 mg/dL [facility] Aspartate Amino Transferase 66(H) 5 - 31 U/L [facility] Alanine Aminotransferase 37(H) 0 - 31 U/L [facility] Total Protein 6.4(L) 6.5 - 8.0 g/dL [facility] Albumin Level 3.2(L) 3.5 - 5.0 g/dL [facility] Alkaline Phosphatase 147(H) 39 - 117 U/L [facility] 06/10/2025 12:1 4 PM EST 06/10/2025 12:18 PM EST us Generic External Data Provider LAB BLOOD ORDERAB LES Final Result Performing Organization Address City/State/[facility] Co de Phone Number [facility] [address] [place] [phone] * (ABNORMAL) CBC auto differential (06/10/2025 12:14 PM EST) [facility] White Blood Count 11.3(H) 4.8 - 10.8 X10*3/uL [facility] Red Blood Count 6.16(H) 4.20 - 5.50 X10*6/uL [facility] Hemoglobin 11.9(L) 12.0 - 16.0 g/dl [facility] Hematocrit 39.3 37.0 - 47.0 % [facility] Mean Corpuscular Volume 63.8(L) 80.0 - 98.0 fL [facility] Mean Corpuscular Hemoglobin 19.3(L) 27.0 - 33.0 pg [facility] Mean Corpuscular HGB Conc 30.3(L) 31.0 - 35.0 g/dl [facility] Red Cell Distribution Width 19.9(H) 11.0 - 16.0 % [facility] Platelet Count 355 160 - 400 X10*3/uL [facility] Mean Platelet Volume 10.2 9.4 - 12.3 fL [facility] Neutrophils Percent Auto 75.8(H) 45 - 73 % [facility] Imm Gran Pct Auto 0.4 0.0 - 0.4 % [facility] Lymphocytes Percent Auto 10.8(L) 20 - 40 % [facility] Monocytes Percent Auto 10.6 2 - 11 % [facility] Eosinophils Percent Auto 1.9 0 - 4 % [facility] Basophils Percent Auto 0.5 0 - 2 % [facility] NRBC Pct Auto 0.4(H) 0.0 - 0.2 /100WBC [facility] Neutrophils Absolute Auto 8.5(H) 2.0 - 8.3 x10*3/uL [facility] Imm Gran Abs Auto 0.04(H) 0.00 - 0.03 X10*3/uL [facility] Lymphocytes Absolute Auto 1.2 1.2 - 4.9 X10*3/uL [facility] Monocytes Absolute Auto 1.2 0.1 - 1.2 X10*3/uL [facility] Eosinophils Absolute Auto 0.2 0.0 - 0.4 X10*3/uL [facility] Basophils Absolute Auto 0.1 0.0 - 0.2 X10*3/uL [facility] NRBC Abs Auto 0.040(H) 0.0 - 0.012 X10*3/uL [facility] 06/10/2025 12:1 4 PM EST 06/10/2025 12:18 PM EST us Generic External Data Provider LAB BLOOD ORDERAB LES Final Result [facility] [address] [place] [phone] documented in this encounter Visit Diagnoses Not on filedocumented in this encounter Additional Health Concerns Active [...] 06/10/2025 Patient has chronic kidney disease 06/10/2025 Assessment Noted Time PHQ-9 Depression Total Score: 6 08/03/19 9:07 AM EST documented as of this encounter Care Teams Meat Stringer Relationship Specialty Start Date End Date Rosalind Cardoso FNP [address] [place] [address] PCP - General Family Medicine 04/28/21 Barron Wetzel MD [address] [phone] Nephrology 01/15/25 Madeline Yo [address] [place] [address] [address] [place] [address] Cardiology 01/15/25 [employer] 01/05/25 documented as of this encounter
--- OUTSIDE RECORDS SUMMARY | 2025-06-10 13:38 | XMS_ITS | Encounter Summary ---
Author Organization [employer] Address [address] [place] [address] 7t [place] [address] Care Team Providers Care Asphalt Spreader Name Role Phone TeoRosalind bishop TAMY Primary Care Provider [phone] Barron Wetzel MD Unavailable [phone] Srinath, Madeline Unavailable Encounter Details Date Type Department Care Team (Latest Contact Info) Description 06/07/2025 Travel Social History Tobacco Use Types Packs/Day [...] [facility] P[facility]S [address] [place] [address] Amira Ayoub PharmD [address] [place] [address] documented as of this encounter Goals Goal [...] their type 2 diabetes No Amira Ayoub, PharmMathew Patient has chronic kidney disease Care Plan Patient has chronic kidney disease No Amira Ayoub PharmMathew Weekly blood pressure task Care Plan Weekly blood pressure task No Amira Ayoub PharmMathew Patient has chronic kidney disease Care Plan Patient has chronic kidney disease No Amira Ayoub, PharmMathew Weekly blood pressure task Care Plan [...] Care Plan Weekly blood pressure task No Monte Jaiden Patient has chronic kidney disease Care Plan Patient has chronic kidney disease No Monte, Jaiden Patient has chronic kidney disease Care Plan Patient has chronic kidney disease No Jaiden Monte Weekly blood pressure task Care Plan Weekly blood pressure task No Rosalind Cardoso FNP Weekly blood pressure task Care Plan Weekly blood pressure task No Rosalind Cardoso FNP Patient has chronic kidney disease Care Plan Patient has chronic kidney disease No Rosalind Cardoso FNP Patient has chronic kidney disease Care Plan Patient has chronic kidney disease No Rosalind Cardoso FNP documented as of this encounter Visit Diagnoses [...] documented as of this encounter Care Teams Asphalt Spreader Relationship Specialty Start Date End Date Rosalind Cardoso FNP [address] [place] [address] [place] [address] PCP - General Family Medicine 04/28/21 Barron Wetzel MD 100 [facility] [address] [place] [address] Nephrology 01/15/25 Madeline Yo [address] [place] [address] 3rd [place] [address] Cardiology 01/15/25 [employer] 01/05/25 documented as of this encounter
--- OUTSIDE RECORDS SUMMARY | 2025-06-10 13:38 | XMS_ITS | Encounter Summary ---
Author Organization [employer] Address [address] [place] [address] 7 [place] [address] Care Team Providers Care Conductor Freight Name Role Phone Rosalind Cardoso Primary Care Provider [phone] Barron Wetzel MD Unavailable [phone] Madeline Yo Unavailable Encounter Details Date Type Department Care Team ([facility] Contact Info) Description 05/28/2025 Orders Only [facility]EDS [address] [place], [place] [phone] Rosalind Cardoso FNP [address] [place], [place] [phone] Microcytic anemia Social History Tobacco Use Types [...] EST Telemedicine [facility]EDS [address] [place] [address] Amira Ayoub, PharmD [address] [place] [address] documented as of this encounter Goals Goal Patient Goal Type Associated Problems Recent Progress Patient-Stated? Author Help patients manage their type 2 diabetes Care Plan Help patients manage their type 2 diabetes No Amira Ayoub, PharmMathew Weekly blood pressure task Care Plan Weekly blood pressure task No Amira Ayoub, PharmD Help patients manage their type 2 diabetes Care Plan Help patients manage their type 2 diabetes No Dewey Ayouba, PharmD Patient has chronic kidney disease Care Plan Patient has chronic kidney disease No Dewey Ayouba, PharmD Weekly blood pressure task Care Plan Weekly blood pressure task No Dewey Ayouba, PharmD Patient has chronic kidney disease Care Plan Patient has chronic kidney disease No Dewey Ayouba, PharmD Weekly blood pressure task Care Plan Weekly blood pressure task No Alize Ge MD Weekly blood pressure task Care Plan Weekly blood pressure task No Alize Ge MD Patient has chronic kidney disease Care Plan Patient has chronic kidney disease No Daniel Gea, MD Patient has chronic kidney disease Care Plan Patient has chronic kidney disease No Alize Ge MD documented as of this encounter Visit Diagnoses [...] 05/20/2025 Patient has chronic kidney disease 05/20/2025 Assessment Noted Time PHQ-9 Depression Total Score: 6 08/03/19 9:07 AM EST documented as of this encounter Care Teams Conductor Freight Relationship Specialty Start Date End Date Rosalind Cardoso FNP [address] [place] [address] PCP - General Family Medicine 04/28/21 Barron Wetzel MD [address] [phone] Nephrology 01/15/25 Madeline Yo [address] [place] [address] [address] [place] [address] Cardiology 01/15/25 [employer] 01/05/25 documented as of this encounter
--- OUTSIDE RECORDS SUMMARY | 2025-06-10 13:38 | XMS_ITS | Encounter Summary ---
Author Organization [email or web address] Address [address] [place] [address] 7[address] [place] [address] Care Team Providers Care Principal Engineer Name Role Phone Rosalind Cardoso Primary Care Provider [phone] Barron Wetzel MD Unavailable [phone] Madeline Yo Unavailable Encounter Details Date Type Department Care Team ([facility] st Contact Info) Description 06/25/2023 Telephone [facility] MEDICINE [address] [place] [address] Rosalind Cardoso FNP [address] [place], [place] [id number] Social History Tobacco Use Types Packs/Day Years [...] Info) Description 06/16/2025 10:00 AM EST Telemedicine [facility] MED & PEDS [address] [place] [address] Amira Ayoub PharmD [address] [place] [address] documented as of this encounter Visit Diagnoses Not on filedocumented in this encounter Additional Health Concerns Assessment Noted Time PHQ-9 Depression Total Score: 0 12/26/19 23 1:09 PM EDT documented as of this encounter Care Teams Principal Engineer Relationship Specialty Start Date End Date Rosalind Cardoso FNP [address] [place] [address] PCP - General Family Medicine 04/28/21 Barron Wetzel MD [address] [facility] [address] [place] [address] Nephrology 01/15/25 Madeline Yo [address] 3rd [place] [address] Cardiology 01/15/25 [employer] 01/05/25 documented as of this encounter
--- OUTSIDE RECORDS SUMMARY | 2025-06-10 13:38 | XMS_ITS | Encounter Summary ---
Author Organization [employer] Address [address] [place] [address] 7 [place] [address] Care Team Providers Care Council Member Name Role Phone Rosalind Cardoso Primary Care Provider [phone] Barron Wetzel MD Unavailable [phone] Madeline Yo Unavailable Reason for Visit * Reason Onset Date Comments Appointment Request 10/13/2024 Encounter Details Date Type Department Care Team (Late st Contact Info) Description 10/13/2024 Telephone [facility] MEDICINE [address] [place] [address] Rosalind Cardoso FNP [address] [place], [place] [id number] Appointment Request Social History Tobacco Use Types [...] [facility] MED & PEDS [address] [place] [address] Amira Ayoub, PharmD [address] [place] [address] documented as of this encounter Visit Diagnoses Not on filedocumented in this encounter Additional Health Concerns Assessment Noted Time PHQ-9 Depression Total Score: 6 08/03/19 25 9:07 AM EST documented as of this encounter Care Teams Council Member Relationship Specialty Start Date End Date Rosalind Cardoso FNP [address] [place] [address] PCP - General Family Medicine 04/28/21 Barron Wetzel MD 100 [facility] 200 [place] [address] Nephrology 01/15/25 Madeline Yo [address] [place] [address] 3rd [place] [address] Cardiology 01/15/25 [employer] 01/05/25 documented as of this encounter
[2025-06-10 13:53] VITALS: BP 154/76; PULSE 96; RESP 20; O2SAT 96
[2025-06-10 14:20] VITALS: BP 154/76
[2025-06-10] MEDS: Furosemide 100 MG/10 ML VIAL 80 MG IVPUSH (14:20)
[2025-06-10 14:43] VITALS: BP 163/70
--- NOTE | 2025-06-10 15:05 | MHC.EDTECH ---
this tech called chemistry to verified if repeat trop has been received. It was drawn 20 minutes ago/sent. specimen found pending near tube system. Lab was made aware.
[2025-06-10 15:32] LABS: Troponin-I High Sensitivity 24.5 ng/L (<3.5-17.0)
--- NOTE | 2025-06-10 16:48 | ECG_ITS ---
Test Reason : REPEAT Blood Pressure : */* mmHG Vent. Rate : 85 BPM Atrial Rate : 85 BPM P-R Int : 140 ms QRS Dur : 96 ms QT Int : 380 ms P-R-T Axes : 76 86 258 degrees QTcB Int : 452 ms Normal sinus rhythm Cannot rule out Inferior infarct , age undetermined ST & T wave abnormality, consider lateral ischemia Abnormal ECG When compared with ECG of 10-Jun-2025 12:03, No significant changes seen Referred By: Jojo Tovar Electronically Signed By: PHILOMENA SUAREZ
--- NOTE | 2025-06-10 18:03 | PHA.MEDREC ---
Addendum entered by Kay Aguillon RPh 06/10/25 18:25: MED REC REVIEWED BY [facility] Per Isabel, pt is also no longer taking metformin due to the bad episode of IBS. Original Note: Pharmacy Consult ? Medication Reconciliation Pharmacy has completed the medication reconciliation. Spoke with pt and she confirmed her medications and had some Rx bottles on hand (Aspirin, Vitamin D3, Furosemide, Lisinopril, Magnesium and Metoprolol). PT no longer taking Atorvstatin, Folic Acid, Lantus, Pantoprazole or Mounjaro; Pt states dr stopped those im the last few weeks after a bad episode with her IBS and dr not sure if any of those could of caused the flare up.
--- NOTE | 2025-06-10 18:09 | PM.IMHP ---
History of Present Illness Date of Service: 06/10/25 Chief Complaint: Shortness of breath 60-year-old female who presented to hospital complaining of worsening shortness of breath and edema that began approximately 2 months ago. Patient states that after she received Procrit at that time and began with increased swelling in the setting matter from lower extremities all the way to chest. Patient mentions that she is experiencing chest pressure as well as worsening swelling. Patient also mentions that she is experiencing left lower extremity pain, burning-like, similar to when she had an infection where she had BKA. In the ED labs with WBC 11.3, creatinine 2.1, proBNP [address]7092, chest CT with pleural effusion, cardiomegaly and pulmonary edema with diffuse ground-glass densities. Patient admitted for heart failure exacerbation Review of Systems Review of Systems: Fourteen point review of systems obtained, negative except as stated above. [facility] Medical History PAD (peripheral artery disease) Below-knee amputation of left lower extremity with complication Essential hypertension Obesity Chronic ulcer of right foot Peripheral vascular disease Anemia in chronic kidney disease (CKD) Acid reflux Osteomyelitis Leukocytosis Microcytic hypochromic anemia Irritable bowel syndrome Rectal prolapse Prolapsed uterus Carpal tunnel syndrome Peripheral neuropathy Retinopathy Osteoporosis Degenerative joint disease of spine Toe ulcer due to DM Hypertension Arthritis Family History Maternal Grandmother Diabetes Maternal Grandfather Heart disease Cancer of unknown origin Mother HTN (hypertension) Paternal Uncle Thalassemia Surgical History S/P below knee amputation H/O dilation and curettage Social History Household Members: Children Household Members Other:: 4 Housing: Apartment Are you a primary manager respiratory care to a significant other at home: No Do you presently have visiting nurse or other home services: No Alcohol intake: never Comment: pt refusing red socks and bed alarm Patient Tobacco Use Status: Never used Tobacco Smoked in Last 30 Days: No Second Hand Smoke Exposure: No Use of substances other than those prescribed or required for medical reasons: No Advance Directives: Yes Advance Directives on File: Yes Advance Directives Date on File: 06/10/25 Patient : No service: No Current occupational status: disabled Meds Allergies Allergy/AdvReac Type Severity Reaction Status Date / Time No Known Allergies Allergy Verified 06/10/25 10:28 Active Medications: Current Medications Acetaminophen (Acetaminophen 325 Mg Tablet) 650 mg PO Q6H PRN PRN Reason: Pain, Mild 1-3,fever,headache Aspirin (Aspirin Enteric Coated 81 Mg Tablet.Dr) 81 mg PO DAILY [facility] Calcium Carbonate (Calcium Carbonate 750 Mg Tab.Chew) 750 mg PO Q4H PRN PRN Reason: Heartburn Furosemide (Furosemide 20 Mg/2 Ml Vial) 20 mg IVPUSH ONCE ONE; Protocol Stop: 06/10/25 17:59 Furosemide (Furosemide 100 Mg/10 Ml Vial) 100 mg IVPUSH BID [facility]; Protocol Heparin Sodium (Porcine) (Heparin Sodium,Porcine 5,000 Unit/Ml Vial) 5,000 unit SUBCUT Q12H [facility] Last Admin: 06/10/25 17:56 Dose: 5,000 unit Ceftriaxone Sodium 1 gm/ (Sodium Chloride) 50 mls @ 100 mls/hr IV DAILY [facility] Insulin Glargine (Insulin Glargine,Hum.Rec.Anlog 100 Unit/Ml 10 Ml Vial) 45 unit SUBCUT DAILY [facility] Magnesium Hydroxide (Milk Of Magnesia 30 Ml Oral.Susp) 30 ml PO DAILY PRN PRN Reason: Constipation Melatonin (Melatonin 3 Mg Tablet) 6 mg PO BEDTIME PRN PRN Reason: Insomnia Pantoprazole Sodium (Pantoprazole Sodium 40 Mg/10 Ml Vial) 40 mg IVPUSH DAILY@0630 [facility] Sodium Chloride (0.9 % Sodium Chloride Flush 3 Ml Syringe) 3 ml IVFLUSH QSHIFT [facility] Vitamin D (Cholecalciferol (Vitamin D3) 25 Mcg Tablet) 25 mcg PO DAILY [facility] Home Medications ?Medication ?Instructions ?Recorded ?Confirmed ?Last Taken ?Type cholecalciferol (vitamin D3) 25 1 tab PO DAILY 07/02/21 06/10/25 06/09/25 History mcg (1,000 unit) tablet blood sugar diagnostic (FreeStyle #10 ea 09/18/21 10/02/24 05/11/22 History Lite Strips) lancets 33 gauge (TRUEplus Lancets) #100 ea 09/18/21 02/22/25 05/11/22 History pen needle, diabetic 31 gauge x #1,200 ea 0302/22/25 05/11/22 History 5/16 (UltiCare Pen Needle) magnesium oxide 400 mg (241.3 mg 400 mg PO TID 08/15/22 06/10/25 06/09/25 History magnesium) tablet clotrimazole 1 % topical cream 1 appl topical BID 09/27/23 06/10/25 06/09/25 History lidocaine 5 % topical patch 1 patch topical DAILY PRN Pain 10/02/24 06/10/25 Unknown History metoprolol succinate 100 mg 100 mg PO DAILY 02/22/25 06/10/25 06/09/25 History tablet,extended release 24 hr acetaminophen 500 mg tablet 500 - 1,000 mg PO Q8H PRN pain 06/10/25 06/10/25 Unknown History albuterol sulfate 90 mcg/actuation 2 puff inhalation Q6H PRN 06/10/25 06/10/25 Unknown History aerosol inhaler Shortness Of Breath Or Wheezing amitriptyline 25 mg tablet 25 mg PO BEDTIME 06/10/25 06/10/25 1 Week Ago History ~06/03/25 chlorthalidone 25 mg tablet 25 mg PO DAILY 06/10/25 06/10/25 06/09/25 History Physical Exam Vital Signs and Narrative: Vital Signs: Last Vital Signs Temp 98.6 F 06/10/25 10:23 Pulse 96 06/10/25 13:53 Resp 20 06/10/25 13:53 BP 163/70 H 06/10/25 14:43 Pulse Ox 96 06/10/25 13:53 O2 Del Method Room Air 06/10/25 13:53 BMI result Body Mass Index 32.9 General: AxOx3, No acute distress, decreased vision Head: AT/NC ENT: Moist mucous membranes Neck: supple CVS; increased RR Lungs: Bilateral rales Abd: Soft non tender, non distended Ext: No edema and no calf tenderness MSK: left BKA Skin: erythema of BKA, anasarca with sacral edema, bilateral hands with wounds Psych: Cooperative with exam Neurology: no focal deficit Results Labs 06/10/25 12:14 06/10/25 12:14 Labs: Laboratory Results - last 24 hr 06/10/25 06/10/25 06/10/25 12:14 12:42 14:41 MCV 63.8 L MCH 19.3 L MCHC 30.3 L RDW 19.9 H Plt Count 355 MPV 10.2 Immature Gran % (Auto) 0.4 Neut % (Auto) 75.8 H Lymph % (Auto) 10.8 L [place] % (Auto) 10.6 Eos % (Auto) 1.9 Baso % (Auto) 0.5 Lymph # (Auto) 1.2 [place] # (Auto) 1.2 Eos # (Auto) 0.2 Baso # (Auto) 0.1 Abs Immat Gran (auto) 0.04 H Absolute Neuts (auto) 8.5 H Absolute Nucleated RBC 0.040 H Nucleated RBC % (auto) 0.4 H Anion Gap 14 Estim Creat Clear Calc 27.2 Estimated GFR 24 Random Glucose 184 H Calcium 8.8 D Magnesium 2.3 Total Bilirubin 0.6 Direct Bilirubin 0.4 AST 66 H ALT 37 H Alkaline Phosphatase 147 H Troponin I High Sens 22.2 H D 24.5 H NT-Pro-B Natriuret Pep 58740.5 H Total Protein 6.4 L Albumin 3.2 L Lipase 34 Urine Color Yellow Urine Appearance Clear Urine pH 5.0 Ur Specific [place] 1.015 Urine Protein 300 (3+) H Urine Glucose (UA) Negative Urine Ketones Trace Urine Blood Trace H Urine Nitrite Negative Ur Leukocyte Esterase Negative Urine RBC 0-2 Urine WBC 0-5 Ur Squamous Epith Cells 6-10 Urine Bacteria 1+ Hyaline Casts 0-2 Influenza Type A (PCR) NEGATIVE Influenza Type B (PCR) NEGATIVE RSV RNA Qual (PCR) NEGATIVE SARS-CoV-2 RNA (RT-PCR) NEGATIVE Imaging Radiologist's Impressions: Impressions Abdomen/Pelvis CT 06/10/25 15:43 IMPRESSION: Superficial soft tissue edema. Reactive inguinal lymph nodes. Diverticulosis without sign of infection. Cholelithiasis. Suspected vicarious excretion of contrast into the gallbladder. Has the patient recently had iodinated iv contrast? Fleischner guidelines were followed. Electronically signed by: Bello Duncan MD 06/10/2025 04:30 PM [facility] Chest CT 06/10/25 15:43 IMPRESSION: Layering pleural effusions, mildly prominent pulmonary vascularity, cardiomegaly, and diffuse groundglass densities raise question of mild pulmonary edema versus atypical/viral pneumonitis. Trace pericardial effusion. Fleischner guidelines were followed. Electronically signed by: Bello Duncan MD 06/10/2025 04:19 PM EST Assessment and Plan (1) CHF (congestive heart failure): Qualifiers: Heart failure chronicity: acute on chronic Status: Acute (2) PAD (peripheral artery disease): Status: Acute (3) LUIS (acute kidney injury): Status: Acute Plan Assessment: 60-year-old female who presented to hospital complaining of worsening shortness of breath, found to have [place] [address] on physical exam with anasarca. CHF exacerbation HFrEF with TTE on 01/24 EF of 25% Hypertension, chronic PAD s/p Left BKA -pro BNP 25,586 -chest CT with biliary and pleural effusions, cardiomegaly and pulmonary edema -TSH ordered -we will order repeat TTE -patient at home on Lasix 80 mg q.d., at this time we will initiate Lasix 100 mg IV b.i.d. -Continue ASA -continue telemetry -cardiology consulted -strict Is&Os as well as daily weights -Potassium around 4 and magnesium around 2 Leukocytosis, suspect secondary to cellulitis Cellulitis of left lower extremity -influenza and COVID negative -will initiate ceftriaxone 1gr q 24 hours Anemia, suspect of chronic disease -patient on Procrit, at this time we will monitor and transfuse for hemoglobin less than 8 -monitor for any bleeding, follow up with outpatient Hematology LUIS and CKD, likely secondary to prerenal azotemia from decreased renal perfusion -creatinine on admission 2.1, UA with hyaline casts -we will continue to monitor labs -pending repeats labs after diuresis, to consider consulting Nephrology Type 2 diabetes, chronic, uncontrolled with A1c done on 04/20 greater than 14 Suspect retinopathy secondary to T2 dm -we will initiate insulin sliding scale, we will continue with home dose of basal insulin 45 units q.d. Ambulatory dysfunction, likely multifactorial in the setting of left lower extremity BKA as well as decreased vision -fall precautions FEN: NI, replete as needed, diabetic with fluid restrictions and low-salt diet GI PPx: Pantoprazole DVT PPX: Heparin given patient's ULIS on CKD Code status: Full code Disposition: All questions and concerns with the patient were answered to satisfaction. All pertinent clinical documents, images and labs were reviewed. DISCLAIMER: This document was created using voice recognition software. Any mistakes in the prescription are unintentional. An attempt was made to focus for accuracy, but to expedite availability, some errors may persist. Please contact with any need for correction or further clarification Total time managing care of this patient today: 75 minutes. Quality Stroke Does the patient have a stroke diagnosis?: No VTE Prior VTE?: No VTE Risk Level:: Medical - moderate - high VTE Device Contraindication: Treatment Not Indicated VTE Drug Contraindication: N/A - Med Ordered
[2025-06-10 18:21] VITALS: BP 156/71; PULSE 85; RESP 16; TEMP 36.4; O2SAT 97
[2025-06-10 18:23] VITALS: BP 156/71; PULSE 84; RESP 14; TEMP 36.4; O2SAT 97
[2025-06-10] MEDS: Furosemide 20 MG/2 ML VIAL IVPUSH (18:36)
--- NOTE | 2025-06-10 23:12 | PC.NURSE ---
Assumed care of this Pt at 2300.
[2025-06-11] VITALS (8 sets, daily range): BP systolic 125–171; BP diastolic 60–98; PULSE 83–101; RESP 16–20; TEMP 36.2–36.8; O2SAT 95–110; BMI 41.7
--- NOTE | 2025-06-11 00:28 | HO.NURTONUR ---
Pt from home, came in for multiple complaints. Patient reports that she is on chronic Procrit injections, last dose was on April 26. The same day of her injection she had developed bilateral leg edema, and feels as though she has needles in her lower extremities. She reports that she has had severe lower abdominal pain radiating up beneath her breasts, describing it as a palpable knot in her lower abdomen and sensation that the areas on fire and may ?explode?. She also reports marked swelling, heaviness, and fluctuating engorgement of both of her breasts pt also reports weakness to get lower extremities, and unable to bear weight due to pain. Pt has a ucvoo-frr-coep amputation on the left. Here in ED BNP elevated at >25,000, chest CT with biliary and pleural effusions, cardiomegaly and pulmonary edema, Cellulites of left lower extremity, and LUIS. pt was given lasix, strict I&Os, cardiology consulted, diabetic diet. Pt A&Ox3, 20g to Left FA, uses w/c, purewick in place.
[2025-06-11] MEDS: 0.9 % Sodium Chloride Flush 3 ML SYRINGE IVFLUSH ×4 (00:31→22:23)
[2025-06-11 01:35] LABS: Glucose, Whole Blood 236 mg/dL (60-115)
[2025-06-11 06:55] LABS: Hematocrit 38.4 % (37.0-47.0); Hemoglobin 11.4 g/dl (12.0-16.0); Imm Gran Abs Auto 0.04 X10*3/uL (0.00-0.03); Imm Gran Pct Auto 0.5 % (0.0-0.4); Lymphocytes Absolute Auto 1.2 X10*3/uL (1.2-4.9); Mean Corpuscular HGB Conc 29.7 g/dl (31.0-35.0); Mean Corpuscular Hemoglobin 19.3 pg (27.0-33.0); Mean Corpuscular Volume 65.1 fL (80.0-98.0); NRBC Abs Auto 0.000 X10*3/uL (0.0-0.012); NRBC Pct Auto 0.0 /100WBC (0.0-0.2); Red Blood Count 5.90 X10*6/uL (4.20-5.50)
--- NOTE | 2025-06-11 07:00 | CA_ITS ---
Transthoracic Echocardiogram Patient (Last, First, Middle): Mitra Parish, Gender: Female Date of : 1965 Age: 60 Procedure Date: 06/11/2025 Procedure Type: Transthoracic Echocardi[place] [facility] [place]: 157.48 cm Weight: 102.97 kg BSA: 2.02 m2 Heart Rate: 113 bpm BP: 131 / 63 mmHg Marketing Operations Coordinator: TO Referring MD: Gordo Denson MD Symptoms: Heart failure Study Quality: Adequate ECG Rhythm: Sinus tachycardia Conclusions: - The left ventricular systolic function is severely decreased. The calculated ejection fraction is 24% by biplane method. - The inferoseptal wall, the basal inferior, basal anteroseptal, and mid anteroseptal segments are akinetic. - No obvious valvular pathology seen on this study. - Mild pulmonary hypertension is present. Findings Procedure Information Contrast agent, definity, is being given per protocol without apparent complications. Left Ventricle Mildly increased left ventricular cavity size. There is mildly increased left ventricular wall thickness. The left ventricular systolic function is severely decreased. The calculated ejection fraction is 24% by biplane method. There is evidence of regional wall motion abnormalities. Diastolic function is indeterminate on the basis of available data. Wall Motion Rest Echo Findings The inferoseptal wall, the basal inferior, basal anteroseptal, and mid anteroseptal segments are akinetic. Right Ventricle Mildly increased right ventricular cavity size. There is mildly decreased right ventricular systolic function. Atria Moderate biatrial enlargement. Aortic Valve There is a normal trileaflet aortic valve. There is no aortic valve stenosis. There is no aortic valve regurgitation. Mitral Valve The mitral valve appears normal. There is trace mitral valve regurgitation. There is no mitral valve stenosis. Pulmonic Valve The pulmonic valve is likely normal. Tricuspid Valve There is mild tricuspid valve regurgitation. Mild pulmonary hypertension is present. Great Vessels The asc aorta is normal in size. Venous The inferior vena cava is dilated and collapses less than 50% with inspiration. Pericardium/Pleural There is a small loculated pericardial effusion overlying the left ventricle. Prior Study Comparison No significant change compared to prior study dated: 01/26/2025. Recommendations, Care & Conclusions No obvious valvular pathology seen on this study. Measurements 2D Linear Measurements IVSd: 0.98 0.6-0.9/0.6-1.0 cm LVIDd: 5.51 3.9-5.3/4.2-5.9 cm LVIDd Index: 2.73 2.4-3.2/2.2-3.1 cm/m2 LVIDs: 4.90 2.0-3.6 cm LVPWd: 0.86 0.7-1.1 cm LA Diam: 4.00 2.7-3.8/3.0-4.0 cm LAIDs Index: 1.98 1.5-2.3 cm/m2 LV Mass: 237.79 67-162/88-224 g LV Mass Index: 117.72 43-95/49-115 g/m2 LVOT Diam: 2.00 3.0+(-)1.3 cm 2D Systolic Function EF 4C: 23.50 >55% EF 2C: 21.50 >55% EF BiP: 23.60 >55% Mitral Valve MV VTI: 0.17 MV Pk Kodak: 1.23 MV Mn Kodak: 0.90 MV Pk Grad: 6.00 MV Mn Grad: 4.00 E'Lateral: 6.09 E'Medial: 5.44 MVA Continuity: 2.04 Aortic Valve AoV Pk Kodak: 1.57 AoV Mn Kodak: 0.98 AoV VTI: 0.23 AoV Pk Grad: 10.00 Aov Mn Grad: 4.00 DERRELL Cont.VTI: 1.57 LVOT LVOT Pk Kodak: 0.73 LVOT Mn Kodak: 0.49 LVOT VTI: 0.11 LVOT Pk Grad: 2.00 LVOT Mn Grad: 1.00 LVOT Diam: 2.00 LVOT Area: 3.14 Diastolic Function E'Medial: 5.44 E' Laterial: 6.09 Right Ventricle TAPSE (mm): 12.40 TVS' Kodak: 10.40 Tricuspid Valve TR Pk Kodak: 2.59 TR Pk Grad: 27.00 RA Press: 15.00 RVSP: 42.00 Great Vessels Aorta Sinus of Valsalva: 3.00 2.0-3.5 cm Ao Asc: 3.30 2.1-3.4 cm Updated in Other Vendor System with Status of Final Marino Dale MD electronically signed on 06/11/2025 3:03:49 PM with status of Final
[2025-06-11 07:05] LABS: Platelet Count 331 X10*3/uL (160-400); White Blood Count 8.8 X10*3/uL (4.8-10.8)
[2025-06-11 08:01] LABS: Anion Gap 13 (12-20); Blood Urea Nitrogen 55 mg/dL (9-16); Calcium 8.9 mg/dL (8.4-10.2); Carbon Dioxide 23 mmol/L (22-29); Chloride 108 mmol/L (96-108); Creatinine Clr Calc Pharmacy 33.2; Estimated Glomerular Filt Rate 26; Magnesium 2.2 mg/dL (1.6-2.6); Potassium 4.1 mmol/L (3.3-5.1); Sodium 140 mmol/L (135-145)
[2025-06-11 08:17] LABS: Glucose, Whole Blood 239 mg/dL (60-115)
[2025-06-11] MEDS: Aspirin Enteric Coated 81 MG TABLET.DR PO (08:29)
[2025-06-11] MEDS: Furosemide 100 MG/10 ML VIAL IVPUSH ×2 (08:29→22:22)
[2025-06-11] MEDS: Insulin Glargine,Hum.rec.anlog 100 UNIT/ML 10 ML VIAL 45 UNIT SUBCUT (08:30)
--- NOTE | 2025-06-11 09:26 | MHC.CM.PN ---
CM addressed IMM with Patient. Patient lives in a 4th floor apartment with her 2 adult children and she uses a walker. Per Patient, the elevator where she lives is often not working so she will need BLS transport to home. Per Patient, she has a [employer] who has been trying to get patient a first floor apartment; she also has [employer] Nurse visits. Home/resume said services is Patient's goal and CM has initiated and will follow for dc planning. PCP/ENDOCRINOLOGY SPECIALIST is Rosalind Cardoso and HCP is Daughter/Yessenia.
[2025-06-11 09:40] LABS: Thyroid Stimulating Hormone 1.35 uIU/mL (0.32-4.0)
--- NOTE | 2025-06-11 09:58 | P.CDIM_ITS ---
PROVIDER RESPONSE TEXT: To clarify, the appropriate diagnosis supported by the clinical indicators: CKD, stage4 QUERY TEXT: PHYSICIAN'S DOCUMENTATION REQUEST Date of Query: 06/11/2025 08:01 AM EST Patient Name: Mitra Parish Admit Date: 06/10/2025 Dear Gordo Denson MD, A review of the medical record indicates additional documentation may be needed. Please review below and update the documentation accordingly. Clinical Indicators: per H&P 06/10/25: LUIS and CKD BUN 56 creatinine on admission 2.12 eGFR 24 Please clarify which of the following accurately represents the patient's renal status: CKD, stage 1 CKD, stage 2 CKD, stage 3 CKD, stage4 ESRD - CKD V now requiring permanent dialysis and/or transplant Other (explain) Clinically unable to determine (explain) Thank you, Stefanie Stern RN Use of terms such as suspected, likely, concern for, or probable (associated with a specific diagnosis that is being evaluated, monitored, or treated as if it exists) are acceptable and can be coded in the inpatient setting, when documented at the time of discharge. Please use your independent medical judgment in providing your response. THIS QUERY IS PART OF THE PERMANENT MEDICAL RECORD
--- NOTE | 2025-06-11 10:51 | P.CONCA_ITS ---
History of Present Illness History of Present Illness Date of Service: 06/11/25 Chief complaint: SOB and Worsening Edema Narrative: This is a cardiology consultation regarding congestive heart failure. She is followed up in the clinic by our nurse practitioner Madeline Yo. Last appointment was in February. At that time, listed to have many comorbidities including hypertension, diabetes, CKD, PVD, left BKA, anemia, SVT, moderate CAD on CTA of coronaries. It seems that coronary angiogram have been entertained in the past but never materialized. Currently, admitted for shortness of breath, edema that started couple of months ago. Per notes, she has started receiving Procrit and then had increased swelling from lower extremities already up to the chest. Lower extremity discomfort/burning. CTA chest was performed and that was concerning for congestive heart failure and hence she is currently admitted. Review of Systems 2 Review of Systems: Yes all other systems are reviewed and are negative Constitutional: Constitutional: Reports as per HPI and Reports no additional constitutional complaints Eyes: Eyes: Reports as per HPI and Denies no additional eye complaints ENT: Denies system reviewed and no additional complaints, except as documented and Reports as per HPI Cardiovascular: Cardiovascular: Reports as per HPI, Reports no additional cardiovascular complaints, Denies acrocyanosis, Denies cool extremities, Denies chest pain, Reports leg edema, Denies lightheadedness, Denies palpitations and Reports dyspnea Respiratory: Respiratory: Reports as per HPI, Denies no additional respiratory complaints and Reports dyspnea Gastrointestinal: Gastrointestinal: Reports as per HPI and Denies no additional gastrointestinal complaints Genitourinary: Genitourinary: Reports as per HPI Musculoskeletal: Musculoskeletal: Reports no additional musculoskeletal complaints and Reports as per HPI Integumentary/Breasts: Skin/Breast: Reports system reviewed and no additional complaints, except as docu Neurologic: Reports system reviewed and no additional complaints, except as documented and Reports as per HPI Psychiatric: Psychiatric: Reports no additional psychiatric complaints and Reports as per HPI Endocrine: Endocrine: Reports no additional endocrine complaints, Reports as per HPI and Denies palpitations Hematologic/Lymphatic: Hematologic/Lymphatic: Reports no additional hematologic/lymphatic complaints and Reports as per HPI Allergic/Immunologic: Allergic/Immunologic: Reports no additional allergic/immunologic complaints and Reports as per HPI [facility] Past Medical History Medical History PAD (peripheral artery disease) Below-knee amputation of left lower extremity with complication Essential hypertension Obesity Chronic ulcer of right foot Peripheral vascular disease Anemia in chronic kidney disease (CKD) Acid reflux Osteomyelitis Leukocytosis Microcytic hypochromic anemia Irritable bowel syndrome Rectal prolapse Prolapsed uterus Carpal tunnel syndrome Peripheral neuropathy Retinopathy Osteoporosis Degenerative joint disease of spine Toe ulcer due to DM Hypertension Arthritis Family History Family History Maternal Grandmother Diabetes Maternal Grandfather Heart disease Cancer of unknown origin Mother HTN (hypertension) Paternal Uncle Thalassemia Surgical History Surgical History S/P below knee amputation H/O dilation and curettage Social History Social History Household Members: Children Household Members Other:: adult children Housing: Apartment Housing Other:: 4th floor with elevator issues. Are you a primary managed care specialist to a significant other at home: No Do you presently have visiting nurse or other home services: No Alcohol intake: never Comment: pt refusing red socks and bed alarm Patient Tobacco Use Status: Never used Tobacco Second Hand Smoke Exposure: No Advance Directives Date on File: 06/10/25 service: No Current occupational status: disabled Meds Allergies Allergy/AdvReac Type Severity Reaction Status Date / Time No Known Allergies Allergy Verified 06/10/25 10:28 Active Medications: Current Medications Acetaminophen (Acetaminophen 325 Mg Tablet) 650 mg PO Q6H PRN PRN Reason: Pain, Mild 1-3,fever,headache Amlodipine Besylate (Amlodipine Besylate 10 Mg Tablet) 10 mg PO DAILY CHACHA; Protocol Last Admin: 06/11/25 08:30 Dose: 10 mg Aspirin (Aspirin Enteric Coated 81 Mg Tablet.Dr) 81 mg PO DAILY CHACHA Last Admin: 06/11/25 08:29 Dose: 81 mg Calcium Carbonate (Calcium Carbonate 750 Mg Tab.Chew) 750 mg PO Q4H PRN PRN Reason: Heartburn Dextrose (Dextrose 50 % 25 Gm/50 Ml Syringe) 25 gm IVPUSH Q15M PRN; Protocol PRN Reason: per Hypoglycemia Standing Ord. Furosemide (Furosemide 100 Mg/10 Ml Vial) 100 mg IVPUSH BID CHACHA; Protocol Last Admin: 06/11/25 08:29 Dose: 100 mg Glucose (Glucose Gel 15 Gm Gel..Gram.) 15 gm PO Q15M PRN; Protocol PRN Reason: per Hypoglycemia Standing Ord. Heparin Sodium (Porcine) (Heparin Sodium,Porcine 5,000 Unit/Ml Vial) 5,000 unit SUBCUT Q12H [facility] [place] Last Admin: 06/11/25 06:38 Dose: 5,000 unit Ceftriaxone Sodium 1 gm/ (Sodium Chloride) 50 mls @ 100 mls/hr IV DAILY [facility] Last Infusion: 06/11/25 09:47 Dose: Infused Insulin Glargine (Insulin Glargine,Hum.Rec.Anlog 100 Unit/Ml 10 Ml Vial) 45 unit SUBCUT DAILY [facility] [place] Last Admin: 06/11/25 08:30 Dose: 45 unit Insulin Human Lispro (Insulin Lispro 100 Unit/Ml 3 Ml Vial) 0 unit SUBCUT QIDACHS [facility] [place]; Protocol Last Admin: 06/11/25 08:31 Dose: 4 unit Magnesium Hydroxide (Milk Of Magnesia 30 Ml Oral.Susp) 30 ml PO DAILY PRN PRN Reason: Constipation Melatonin (Melatonin 3 Mg Tablet) 6 mg PO BEDTIME PRN PRN Reason: Insomnia Morphine Sulfate (Morphine Sulfate 4 Mg/Ml Cartridge) 1 mg IVPUSH Q6H PRN; Protocol PRN Reason: Pain, Severe (Pain Scale 7-10) Pantoprazole Sodium (Pantoprazole Sodium 40 Mg/10 Ml Vial) 40 mg IVPUSH DAILY@0630 [facility] [place] Last Admin: 06/11/25 06:38 Dose: 40 mg Sodium Chloride (0.9 % Sodium Chloride Flush 3 Ml Syringe) 3 ml IVFLUSH QSHIFT [facility] Last Admin: 06/11/25 08:31 Dose: 3 ml Vitamin D (Cholecalciferol (Vitamin D3) 25 Mcg Tablet) 25 mcg PO DAILY [facility] [place] Last Admin: 06/11/25 08:29 Dose: 25 mcg Home Medications ?Medication ?Instructions ?Recorded ?Confirmed ?Last Taken ?Type cholecalciferol (vitamin D3) 25 1 tab PO DAILY 1 06/10/25 06/09/25 History mcg (1,000 unit) tablet blood sugar diagnostic (FreeStyle #10 ea 09/18/21 03/2 03/0105/11/22 History Lite Strips) lancets 33 gauge (TRUEplus Lancets) #100 ea 09/18/21 0 02/22/25 05/11/22 History pen needle, diabetic 31 gauge x #1,200 ea 09/18/2105/11/22 History 11/20 (UltiCare Pen Needle) magnesium oxide 400 mg (241.3 mg 400 mg PO TID 3 06/10/25 06/09/25 History magnesium) tablet clotrimazole 1 % topical cream 1 appl topical BID 09/0606/10/25 06/09/25 History lidocaine 5 % topical patch 1 patch topical DAILY PRN Pain 10/02/24 06/10/25 Unknown History metoprolol succinate 100 mg 100 mg PO DAILY 02/22/25 1 08/11/24 06/09/25 History tablet,extended release 24 hr acetaminophen 500 mg tablet 500 - 1,000 mg PO Q8H PRN pain 06/10/25 06/10/25 Unknown History albuterol sulfate 90 mcg/actuation 2 puff inhalation Q 6H PRN 06/10/25 06/10/25 Unknown History aerosol inhaler Shortness Of Breath Or Wheez ing amitriptyline 25 mg tablet 25 mg PO BEDTIME 06/10/25 1 08/11/24 1 Week Ago History ~06/03/25 chlorthalidone 25 mg tablet 25 mg PO DAILY 06/10/2506/09/25 History Physical Exam 2 Vital Signs: Vital Signs: Last Vital Signs Temp 97.2 F 06/11/25 07:54 Pulse 83 06/11/25 07:54 Resp 16 06/11/25 07:54 BP 171/70 H 06/11/25 07:54 Pulse Ox 96 06/11/25 07:54 O2 Del Method Room Air 06/11/25 07:54 BMI result Body Mass Index 41.7 Const: General: comfortable and no acute distress O rientation/consciousness: patient oriented x3 HEENT: Other: Unremarkable Head: Yes normal to inspection Neck: Neck: Yes normal visual inspection Chest: Chest palpation & inspection: normal inspection of the chest Resp: Other: Fine inspiratory crackles Cardio: Palpation: normal PMI Heart sounds: S1 normal heart sound present, S2 normal heart sound present, no gallops, no murmurs and no rubs GI: Palpation (GI): Soft to palpation Back/Spine/Pelvis: Other: unremarkable Skin: General skin exam: no rashes or lesions noted Neuro: General: patient oriented x3 Extrem: Other: L BKA. Psych: Mental Status: mental status grossly normal Objective Labs and Meds 06/11/25 06:24 06/11/25 06:24 Lab results: Laboratory Results - last 24 hr 06/10/25 06/10/25 06/10/25 12:14 12:42 14:41 WBC 11.3 H RBC 6.16 H Hgb 11.9 L Hct 39.3 MCV 63.8 L MCH 19.3 L MCHC 30.3 L RDW 19.9 H Plt Count 355 MPV 10.2 Immature Gran % (Auto) 0.4 Neut % (Auto) 75.8 H Lymph % (Auto) 10.8 L [place] % (Auto) 10.6 Eos % (Auto) 1.9 Baso % (Auto) 0.5 Lymph # (Auto) 1.2 [place] # (Auto) 1.2 Eos # (Auto) 0.2 Baso # (Auto) 0.1 Abs Immat Gran (auto) 0.04 H Absolute Neuts (auto) 8.5 H Absolute Nucleated RBC 0.040 H Nucleated RBC % (auto) 0.4 H Sodium 136 Potassium 4.8 Chloride 107 Carbon Dioxide 20 L Anion Gap 14 BUN 56 H Creatinine 2.12 H Estim Creat Clear Calc 27.2 Estimated GFR 24 POC Glucose Random Glucose 184 H Calcium 8.8 D Magnesium 2.3 Total Bilirubin 0.6 Direct Bilirubin 0.4 AST 66 H ALT 37 H Alkaline Phosphatase 147 H Troponin I High Sens 22.2 H D 24.5 H NT-Pro-B Natriuret Pep 61942.5 H Total Protein 6.4 L Albumin 3.2 L Lipase 34 TSH Urine Color Yellow Urine Appearance Clear Urine pH 5.0 Ur Specific [place] 1.015 Urine Protein 300 (3+) H Urine Glucose (UA) Negative Urine Ketones Trace Urine Blood Trace H Urine Nitrite Negative Ur Leukocyte Esterase Negative Urine RBC 0-2 Urine WBC 0-5 Ur Squamous Epith Cells 6-10 Urine Bacteria 1+ Hyaline Casts 0-2 Influenza Type A (PCR) NEGATIVE Influenza Type B (PCR) NEGATIVE RSV RNA Qual (PCR) NEGATIVE SARS-CoV-2 RNA (RT-PCR) NEGATIVE 06/11/25 06/11/25 06/11/25 01:31 06:24 08:13 WBC 8.8 RBC 5.90 H Hgb 11.4 L Hct 38.4 MCV 65.1 L MCH 19.3 L MCHC 29.7 L RDW 18.9 H Plt Count 331 MPV 10.4 Immature Gran % (Auto) 0.5 H Neut % (Auto) 71.4 Lymph % (Auto) 13.3 L [place] % (Auto) 11.7 H Eos % (Auto) 2.5 Baso % (Auto) 0.6 Lymph # (Auto) 1.2 [place] # (Auto) 1.0 Eos # (Auto) 0.2 Baso # (Auto) 0.1 Abs Immat Gran (auto) 0.04 H Absolute Neuts (auto) 6.3 Absolute Nucleated RBC 0.000 Nucleated RBC % (auto) 0.0 Sodium 140 Potassium 4.1 Chloride 108 Carbon Dioxide 23 Anion Gap 13 BUN 55 H Creatinine 1.98 H Estim Creat Clear Calc 33.2 Estimated GFR 26 POC Glucose 236 H 239 H Random Glucose 235 H Calcium 8.9 Magnesium 2.2 Total Bilirubin Direct Bilirubin AST ALT Alkaline Phosphatase Troponin I High Sens NT-Pro-B Natriuret Pep Total Protein Albumin Lipase TSH 1.35 Urine Color Urine Appearance Urine pH Ur Specific [place] Urine Protein Urine Glucose (UA) Urine Ketones Urine Blood Urine Nitrite Ur Leukocyte Esterase Urine RBC Urine WBC Ur Squamous Epith Cells Urine Bacteria Hyaline Casts Influenza Type A (PCR) Influenza Type B (PCR) RSV RNA Qual (PCR) SARS-CoV-2 RNA (RT-PCR) ECG Interpretation: EKG shows sinus rhythm at 90/Min with PACs. Inferior and anterolateral T inversions. Similar to prior EKG from February. Imaging Radiologist's impression: Impressions Abdomen/Pelvis CT 06/10/25 15:43 IMPRESSION: Superficial soft tissue edema. Reactive inguinal lymph nodes. Diverticulosis without sign of infection. Cholelithiasis. Suspected vicarious excretion of contrast into the gallbladder. Has the patient recently had iodinated iv contrast? Fleischner guidelines were followed. Electronically signed by: Bello Duncan MD 06/10/2025 04:30 PM [facility] Chest CT 06/10/25 15:43 IMPRESSION: Layering pleural effusions, mildly prominent pulmonary vascularity, cardiomegaly, and diffuse groundglass densities raise question of mild pulmonary edema versus atypical/viral pneumonitis. Trace pericardial effusion. Fleischner guidelines were followed. Electronically signed by: Bello Duncan MD 06/10/2025 04:19 PM EST Assessment and Plan (1) Acute on chronic combined systolic and diastolic CHF (congestive heart failure): Status: Acute Plan In the recent echocardiogram, LVEF 25%. Basal to mid inferior, mid inferoseptal and mid inferolateral akinesis. Moderate pulmonary hypertension. Coronary CTA 2022-left main with no significant stenosis. In the proximal LAD, at the 1st diagonal takeoff with < 30% stenosis. Between the 2nd and 3rd diagonal, probably < 70% stenosis in the LAD. Proximal circumflex with < 30% stenosis. Proximal/mid RCA junction, 50% stenosis. In the mid RCA 60% stenosis. Overall, many comorbidities, minimal ambulation, cardiomyopathy, coronary disease, decompensated heart failure. Currently, creatinine is 1.98, near her baseline. NT proBNP around 26,000. High sensitivity troponin is slightly above range but acceptable. CT chest reported have layering pleural effusions, mildly prominent pulmonary vascularity, cardiomegaly and diffuse ground-glass densities-mild pulmonary edema versus atypical/viral pneumonitis. Overall, treat for congestive heart failure and she is on IV diuretics and agree with that. Closely monitor renal function. Considering her many comorbidities and multiorgan dysfunction, guarded prognosis. Procedures Date of Service Date of Service: 06/11/25
--- NOTE | 2025-06-11 11:16 | P.PNIM_ITS ---
Subjective Subjective Date of Service: 06/11/25 Interval History: Patient seen and examined at bedside this morning, patient mentions that her swelling has slightly improved, however persists with pain in lower extremities. Continues on IV diuretics. Review of Systems Review of Systems: Yes all other systems are reviewed and are negative Physical Exam 2 Exam: Exam: General: AxOx3, No acute distress, decreased vision Head: AT/NC ENT: Moist mucous membranes Neck: supple CVS; increased RR Lungs: Bilateral rales, improved Abd: Soft non tender, non distended Ext: No edema and no calf tenderness MSK: left BKA Skin: erythema of BKA, anasarca with sacral edema, bilateral hands with wounds, improving Psych: Cooperative with exam Neurology: no focal deficit Vital Signs: Vital Signs: Last Vital Signs Temp 98.3 F 06/11/25 11:05 Pulse 101 H 06/11/25 11:05 Resp 16 06/11/25 11:05 BP 148/98 H 06/11/25 11:05 Pulse Ox 95 06/11/25 11:05 O2 Del Method Room Air 06/11/25 11:05 BMI result Body Mass Index 41.7 Objective Data Active Medications Acetaminophen (Acetaminophen 325 Mg Tablet) 650 mg PO Q6H PRN PRN Reason: Pain, Mild 1-3,fever,headache Amlodipine Besylate (Amlodipine Besylate 10 Mg Tablet) 10 mg PO DAILY [facility]; Protocol Last Admin: 06/11/25 08:30 Dose: 10 mg Documented By: YASHIRA Aspirin (Aspirin Enteric Coated 81 Mg Tablet.) 81 mg PO DAILY [facility] Last Admin: 06/11/25 08:29 Dose: 81 mg Documented By: YASHIRA Calcium Carbonate (Calcium Carbonate 750 Mg Tab.Chew) 750 mg PO Q4H PRN PRN Reason: Heartburn Dextrose (Dextrose 50 % 25 Gm/50 Ml Syringe) 25 gm IVPUSH Q15M PRN; Protocol PRN Reason: per Hypoglycemia Standing Ord. Furosemide (Furosemide 100 Mg/10 Ml Vial) 100 mg IVPUSH BID [facility]; Protocol Last Admin: 06/11/25 08:29 Dose: 100 mg Documented By: YASHIRA Glucose (Glucose Gel 15 Gm Gel..Gram.) 15 gm PO Q15M PRN; Protocol PRN Reason: per Hypoglycemia Standing Ord. Heparin Sodium (Porcine) (Heparin Sodium,Porcine 5,000 Unit/Ml Vial) 5,000 unit SUBCUT Q12H [facility] Last Admin: 06/11/25 06:38 Dose: 5,000 unit Documented By: SHANEKA Ceftriaxone Sodium 1 gm/ (Sodium Chloride) 50 mls @ 100 mls/hr IV DAILY [facility] Last Infusion: 06/11/25 09:47 Dose: Infused Documented By: YASHIRA Insulin Glargine (Insulin Glargine,Hum.Rec.Anlog 100 Unit/Ml 10 Ml Vial) 45 unit SUBCUT DAILY [facility] Last Admin: 06/11/25 08:30 Dose: 45 unit Documented By: YASHIRA Insulin Human Lispro (Insulin Lispro 100 Unit/Ml 3 Ml Vial) 0 unit SUBCUT QIDACHS [facility]; Protocol Last Admin: 06/11/25 08:31 Dose: 4 unit Documented By: YASHIRA Magnesium Hydroxide (Milk Of Magnesia 30 Ml Oral.Susp) 30 ml PO DAILY PRN PRN Reason: Constipation Melatonin (Melatonin 3 Mg Tablet) 6 mg PO BEDTIME PRN PRN Reason: Insomnia Morphine Sulfate (Morphine Sulfate 4 Mg/Ml Cartridge) 1 mg IVPUSH Q6H PRN; Protocol PRN Reason: Pain, Severe (Pain Scale 7-10) Pantoprazole Sodium (Pantoprazole Sodium 40 Mg/10 Ml Vial) 40 mg IVPUSH DAILY@0630 [facility] Last Admin: 06/11/25 06:38 Dose: 40 mg Documented By: SHANEKA Sodium Chloride (0.9 % Sodium Chloride Flush 3 Ml Syringe) 3 ml IVFLUSH QSHIFT [facility] Last Admin: 06/11/25 08:31 Dose: 3 ml Documented By: YASHIRA Vitamin D (Cholecalciferol (Vitamin D3) 25 Mcg Tablet) 25 mcg PO DAILY [facility] Last Admin: 06/11/25 08:29 Dose: 25 mcg Documented By: YASHIRA Labs 06/11/25 06:24 06/11/25 06:24 Labs: Laboratory Results - last 24 hr 06/10/25 06/10/25 06/10/25 12:14 12:42 14:41 MCV 63.8 L MCH 19.3 L MCHC 30.3 L RDW 19.9 H Plt Count 355 MPV 10.2 Immature Gran % (Auto) 0.4 Neut % (Auto) 75.8 H Lymph % (Auto) 10.8 L [place] % (Auto) 10.6 Eos % (Auto) 1.9 Baso % (Auto) 0.5 Lymph # (Auto) 1.2 [place] # (Auto) 1.2 Eos # (Auto) 0.2 Baso # (Auto) 0.1 Abs Immat Gran (auto) 0.04 H Absolute Neuts (auto) 8.5 H Absolute Nucleated RBC 0.040 H Nucleated RBC % (auto) 0.4 H Anion Gap 14 Estim Creat Clear Calc 27.2 Estimated GFR 24 POC Glucose Random Glucose 184 H Calcium 8.8 D Magnesium 2.3 Total Bilirubin 0.6 Direct Bilirubin 0.4 AST 66 H ALT 37 H Alkaline Phosphatase 147 H Troponin I High Sens 22.2 H D 24.5 H NT-Pro-B Natriuret Pep 42334.5 H Total Protein 6.4 L Albumin 3.2 L Lipase 34 TSH Urine Color Yellow Urine Appearance Clear Urine pH 5.0 Ur Specific [place] 1.015 Urine Protein 300 (3+) H Urine Glucose (UA) Negative Urine Ketones Trace Urine Blood Trace H Urine Nitrite Negative Ur Leukocyte Esterase Negative Urine RBC 0-2 Urine WBC 0-5 Ur Squamous Epith Cells 6-10 Urine Bacteria 1+ Hyaline Casts 0-2 Influenza Type A (PCR) NEGATIVE Influenza Type B (PCR) NEGATIVE RSV RNA Qual (PCR) NEGATIVE SARS-CoV-2 RNA (RT-PCR) NEGATIVE 06/11/25 06/11/25 06/11/25 01:31 06:24 08:13 MCV 65.1 L MCH 19.3 L MCHC 29.7 L RDW 18.9 H Plt Count 331 MPV 10.4 Immature Gran % (Auto) 0.5 H Neut % (Auto) 71.4 Lymph % (Auto) 13.3 L [place] % (Auto) 11.7 H Eos % (Auto) 2.5 Baso % (Auto) 0.6 Lymph # (Auto) 1.2 [place] # (Auto) 1.0 Eos # (Auto) 0.2 Baso # (Auto) 0.1 Abs Immat Gran (auto) 0.04 H Absolute Neuts (auto) 6.3 Absolute Nucleated RBC 0.000 Nucleated RBC % (auto) 0.0 Anion Gap 13 Estim Creat Clear Calc 33.2 Estimated GFR 26 POC Glucose 236 H 239 H Random Glucose 235 H Calcium 8.9 Magnesium 2.2 Total Bilirubin Direct Bilirubin AST ALT Alkaline Phosphatase Troponin I High Sens NT-Pro-B Natriuret Pep Total Protein Albumin Lipase TSH 1.35 Urine Color Urine Appearance Urine pH Ur Specific [place] Urine Protein Urine Glucose (UA) Urine Ketones Urine Blood Urine Nitrite Ur Leukocyte Esterase Urine RBC Urine WBC Ur Squamous Epith Cells Urine Bacteria Hyaline Casts Influenza Type A (PCR) Influenza Type B (PCR) RSV RNA Qual (PCR) SARS-CoV-2 RNA (RT-PCR) Assessment and Plan (1) CHF (congestive heart failure): Status: Acute (2) LUIS (acute kidney injury): Status: Acute Plan Assessment: 60-year-old female who presented to hospital complaining of worsening shortness of breath, found to [place] [address] on physical exam with anasarca. CHF exacerbation HFrEF with TTE on 01/24 EF of 25% Hypertension, chronic PAD s/p Left BKA -pro BNP 25,586 -chest CT with biliary and pleural effusions, cardiomegaly and pulmonary edema -TSH ordered and pending -TTE ordered and pending -Continue Lasix 100 mg IV b.i.d. -Continue ASA -continue telemetry -cardiology consulted -strict Is&Os as well as daily weights -Potassium around 4 and magnesium around 2 Leukocytosis, suspect secondary to cellulitis, improving Cellulitis of left lower extremity -influenza and COVID negative -continue ceftriaxone 1gr q 24 hours Anemia, suspect of chronic disease -patient on Procrit, at this time we will monitor and transfuse for hemoglobin less than 8 -monitor for any bleeding, follow up with outpatient Hematology LUIS and CKD, likely secondary to prerenal azotemia from decreased renal perfusion, improving -creatinine on admission 2.1->1.9 UA with hyaline casts -we will continue to monitor labs -Nephrology consulted Type 2 diabetes, chronic, uncontrolled with A1c done on 04/20 greater than Suspect retinopathy secondary to T2 dm -Continue insulin sliding scale and home dose of basal insulin 45 units q.d. Ambulatory dysfunction, likely multifactorial in the setting of left lower extremity BKA as well as decreased vision -fall precautions FEN: NI, replete as needed, diabetic with fluid restrictions and low-salt diet GI PPx: Pantoprazole DVT PPX: Heparin given patient's LUIS on CKD Code status: Full code Disposition: All questions and concerns with the patient were answered to satisfaction. All pertinent clinical documents, images and labs were reviewed. DISCLAIMER: This document was created using voice recognition software. Any mistakes in the prescription are unintentional. An attempt was made to focus for accuracy, but to expedite availability, some errors may persist. Please contact with any need for correction or further clarification Total time managing care of this patient today: 55 minutes. Quality Stroke Does the patient have a stroke diagnosis?: No VTE Prior VTE?: No VTE Risk Level:: Medical - moderate - high VTE Device Contraindication: Treatment Not Indicated VTE Drug Contraindication: N/A - Med Ordered
[2025-06-11 11:29] LABS: Glucose, Whole Blood 199 mg/dL (60-115)
--- NOTE | 2025-06-11 12:25 | ECG_ITS ---
Test Reason : frequent PACs, tachycardia Blood Pressure : */* mmHG Vent. Rate : 125 BPM Atrial Rate : 129 BPM P-R Int : 168 ms QRS Dur : 96 ms QT Int : 342 ms P-R-T Axes : * 61 234 degrees QTcB Int : 493 ms Sinus tachycardia with Premature supraventricular complexes and Premature ventricular complexes or Fusion complexes ST & T wave abnormality, consider lateral ischemia Abnormal ECG When compared with ECG of 10-Jun-2025 17:24, Fusion complexes are now Present Premature ventricular complexes are now Present Premature supraventricular complexes are now Present Referred By: Gordo Denson Electronically Signed By: PHILOMENA SUAREZ
[2025-06-11 13:46] LABS: Troponin-I High Sensitivity 28.6 ng/L (<3.5-17.0)
--- NOTE | 2025-06-11 13:53 | PM.CNNEP ---
History of Present Illness Reason for Consult Consult date: 06/11/25 Chief Complaint Chief complaint: SOB and Worsening Edema History of Present Illness Narrative: 60 y.o. 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 Her leg swelling in R leg has resolved f/u with C Heme for EPO shots ( Srinivasan SURESH) Meds as noted and includes [facility] Past Medical History Medical History PAD (peripheral artery disease) Below-knee amputation of left lower extremity with complication Essential hypertension Obesity Chronic ulcer of right foot Peripheral vascular disease Anemia in chronic kidney disease (CKD) Acid reflux Osteomyelitis Leukocytosis Microcytic hypochromic anemia Irritable bowel syndrome Rectal prolapse Prolapsed uterus Carpal tunnel syndrome Peripheral neuropathy Retinopathy Osteoporosis Degenerative joint disease of spine Toe ulcer due to DM Hypertension Arthritis Family History Family History Maternal Grandmother Diabetes Maternal Grandfather Heart disease Cancer of unknown origin Mother HTN (hypertension) Paternal Uncle Thalassemia Surgical History Surgical History S/P below knee amputation H/O dilation and curettage Social History Social History Household Members: Children Household Members Other:: adult children Housing: Apartment Housing Other:: 4th floor with elevator issues. Are you a primary healthcare economics manager to a significant other at home: No Do you presently have visiting nurse or other home services: No Alcohol intake: never Comment: pt refusing red socks and bed alarm Patient Tobacco Use Status: Never used Tobacco Second Hand Smoke Exposure: No Advance Directives Date on File: 06/10/25 service: No Current occupational status: disabled Meds Allergies Allergy/AdvReac Type Severity Reaction Status Date / Time No Known Allergies Allergy Verified 06/10/25 10:28 Active Medications: Current Medications Acetaminophen (Acetaminophen 325 Mg Tablet) 650 mg PO Q6H PRN PRN Reason: Pain, Mild 1-3,fever,headache Amlodipine Besylate (Amlodipine Besylate 10 Mg Tablet) 10 mg PO DAILY [facility]; Protocol Last Admin: 06/11/25 08:30 Dose: 10 mg Aspirin (Aspirin Enteric Coated 81 Mg Tablet.Dr) 81 mg PO DAILY [facility] Last Admin: 06/11/25 08:29 Dose: 81 mg Calcium Carbonate (Calcium Carbonate 750 Mg Tab.Chew) 750 mg PO Q4H PRN PRN Reason: Heartburn Dextrose (Dextrose 50 % 25 Gm/50 Ml Syringe) 25 gm IVPUSH Q15M PRN; Protocol PRN Reason: per Hypoglycemia Standing Ord. Furosemide (Furosemide 100 Mg/10 Ml Vial) 100 mg IVPUSH BID [facility]; Protocol Last Admin: 06/11/25 08:29 Dose: 100 mg Glucose (Glucose Gel 15 Gm Gel..Gram.) 15 gm PO Q15M PRN; Protocol PRN Reason: per Hypoglycemia Standing Ord. Heparin Sodium (Porcine) (Heparin Sodium,Porcine 5,000 Unit/Ml Vial) 5,000 unit SUBCUT Q12H [facility] Last Admin: 06/11/25 06:38 Dose: 5,000 unit Ceftriaxone Sodium 1 gm/ (Sodium Chloride) 50 mls @ 100 mls/hr IV DAILY [facility] Last Infusion: 06/11/25 09:47 Dose: Infused Insulin Glargine (Insulin Glargine,Hum.Rec.Anlog 100 Unit/Ml 10 Ml Vial) 45 unit SUBCUT DAILY [facility] Last Admin: 06/11/25 08:30 Dose: 45 unit Insulin Human Lispro (Insulin Lispro 100 Unit/Ml 3 Ml Vial) 0 unit SUBCUT QIDACHS [facility]; Protocol Last Admin: 06/11/25 11:58 Dose: 2 unit Magnesium Hydroxide (Milk Of Magnesia 30 Ml Oral.Susp) 30 ml PO DAILY PRN PRN Reason: Constipation Melatonin (Melatonin 3 Mg Tablet) 6 mg PO BEDTIME PRN PRN Reason: Insomnia Morphine Sulfate (Morphine Sulfate 4 Mg/Ml Cartridge) 1 mg IVPUSH Q6H PRN; Protocol PRN Reason: Pain, Severe (Pain Scale 7-10) Pantoprazole Sodium (Pantoprazole Sodium 40 Mg/10 Ml Vial) 40 mg IVPUSH DAILY@0630 [facility] Last Admin: 06/11/25 06:38 Dose: 40 mg Sodium Chloride (0.9 % Sodium Chloride Flush 3 Ml Syringe) 3 ml IVFLUSH QSHIFT [facility] Last Admin: 06/11/25 08:31 Dose: 3 ml Vitamin D (Cholecalciferol (Vitamin D3) 25 Mcg Tablet) 25 mcg PO DAILY [facility] Last Admin: 06/11/25 08:29 Dose: 25 mcg Home Medications ?Medication ?Instructions ?Recorded ?Confirmed ?Last Taken ?Type cholecalciferol (vitamin D3) 25 1 tab PO DAILY 07/02/21 06/10/25 06/09/25 History mcg (1,000 unit) tablet blood sugar diagnostic (FreeStyle #10 ea 09/18/21 10/02/24 05/11/22 History Lite Strips) lancets 33 gauge (TRUEplus Lancets) #100 ea 09/18/21 02/22/25 05/11/22 History pen needle, diabetic 31 gauge x #1,200 ea 09/18/21 02/22/25 05/11/22 History 5/16 (UltiCare Pen Needle) magnesium oxide 400 mg (241.3 mg 400 mg PO TID 08/15/22 06/10/25 06/09/25 History magnesium) tablet clotrimazole 1 % topical cream 1 appl topical BID 09/27/23 06/10/25 06/09/25 History lidocaine 5 % topical patch 1 patch topical DAILY PRN Pain 10/02/24 06/10/25 Unknown History metoprolol succinate 100 mg 100 mg PO DAILY 02/22/25 06/10/25 06/09/25 History tablet,extended release 24 hr acetaminophen 500 mg tablet 500 - 1,000 mg PO Q8H PRN pain 06/10/25 06/10/25 Unknown History albuterol sulfate 90 mcg/actuation 2 puff inhalation Q6H PRN 06/10/25 06/10/25 Unknown History aerosol inhaler Shortness Of Breath Or Wheezing amitriptyline 25 mg tablet 25 mg PO BEDTIME 06/10/25 06/10/25 1 Week Ago History ~06/03/25 chlorthalidone 25 mg tablet 25 mg PO DAILY 06/10/25 06/10/25 06/09/25 History Physical Exam Exam Exam: cvs: s1s2 Rs; cta ABd; soft generaliised edema Vital Signs: Last Vital Signs Temp 98.3 F 06/11/25 11:05 Pulse 101 H 06/11/25 11:05 Resp 16 06/11/25 11:05 BP 148/98 H 06/11/25 11:05 Pulse Ox 95 06/11/25 11:05 O2 Del Method Room Air 06/11/25 11:05 BMI result Body Mass Index 41.7 Results Lab Results 06/11/25 06:24 06/11/25 06:24 Lab results: Chemistry 06/10/25 06/11/25 12:14 06:24 Sodium 136 140 Potassium 4.8 4.1 Carbon Dioxide 20 L 23 BUN 56 H 55 H Creatinine 2.12 H 1.98 H Calcium 8.8 D 8.9 Hematology 06/10/25 06/11/25 12:14 06:24 WBC 11.3 H 8.8 Hgb 11.9 L 11.4 L Plt Count 355 331 Urinalysis 06/10/25 12:42 Urine Color Yellow Urine Appearance Clear Urine pH 5.0 Ur Specific [place] 1.015 Urine Protein 300 (3+) H Urine Glucose (UA) Negative Urine Ketones Trace Urine Blood Trace H Urine Nitrite Negative Ur Leukocyte Esterase Negative Urine RBC 0-2 Urine WBC 0-5 Ur Squamous Epith Cells 6-10 Hyaline Casts 0-2 Assessment and Plan (1) CHF (congestive heart failure): Qualifiers: Heart failure chronicity: acute on chronic Heart failure type: diastolic Qualified Code(s): I50.33 - Acute on chronic diastolic (congestive) heart failure Status: Acute (2) CKD (chronic kidney disease): Qualifiers: Chronic kidney disease stage: stage 4 (GFR 15-29) Qualified Code(s): N18.4 - Chronic kidney disease, stage 4 (severe) Status: Acute Plan 60Y/O F CKD 4 DM/HTN ANEMIC PROTEINURIC HYPERVOL PATEINT 1. CKD4 : most c/w DN/HTN renal dis and signif rsik for prog to ESRD given her heavy Uprot. BL cr 2.12- egfr 24 2. DM: needs to avoid metformin - last A1c in office was 14- needs control 3. Hypervol: will need to balance renal func and azotemia as we uptitrate diutetics; 4. Heavy Uprot: tpcr 5.6 gm and macr of 3gm in 5. Anemia: cont f/u with HEME with IV Fe and EPO 6. Metabolic Bone Disease of CKD: cont to track CA, Phos, HCO3, PTH and vit D levels and treat accordingly PLAN: cont to track renal labs and urine studies; check PTH/vit D; avoid NSAIDs; avoid Metformin If undergoes CCAth then will need pre and post Ccath IV fludis to decr LUIS risk form dye and limit dye volume continue to diurese- she has alteast 10 lb on board, monitor for need for HD if meets indications dc CCB and pioglitazone home meds as it may be contributing and uptitrate other BP meds as needed. at home on 80mg daily of lasix, now on 100mg iv bid Procedures Date of Service Date of Service: 06/11/25
--- NOTE | 2025-06-11 15:24 | HO.WOUND ---
Wound Consult: Initial 60yr old?female admitted to [facility] on 06/10/25 - See progress notes and H&P for detailed history.? Wound consult placed for Buttock, Hands and Right Heel.? Patient agreeable to assessment and photo documentation.? Patient reports the skin lesions started after a procrit injection and changes to her routine medication. Providers aware. Currently stable and no overt open wounds noted see below for details. Left Abdomen - stretch valverde noted firm induration noted with pain to touch. NO warmth, no erythema and no fluctuance noted. Provider Aware. Right Hand Left hand - Stable dry linear abrasions - appear excoriated - dry and no open wounds noted. Recommend lotions to keep hands moist and intact. No topical dressing needed at this time. Left Side - areas of unclear hyperpigmentation nonblanchabing but not consistent with pressure no warmth no induration and no fluctuance noted - discussed with direct care team - they will continue to monitor to watch for evolution. Left Residual leg - old scaring noted no current open wound noted - redness and pain reported but no warmth detected, no induration and no fluctuance noted. No topical recommendations needed at this time. Right Heel dry intact red tissue - slow to jessica but remains blanchable at this time. Recommend foam dressing and off load heel. Right Lower Leg - scattered stable scabs noted - swelling and irregular redness noted - scabs are stable and dry recommend leaving FUNDING SPECIALIST at this time should they open recommend cleaning with NS covering with foam dressing and reconsult wound care or provider. Elevate right leg on pillows to aid in swelling reduction. Right 2nd Toe - Stable dry scab noted with swelling and discoloration.recommend paint with betadine and defer to provider for vascular assessment. Sacrum and Buttock Etiology: Chronic MASD ? Wound Bed: dark red maroon light purple and hyperpigmentation noted - scattered areas of small open tissue consistent with MASD and friction. The areas are hard to determine blanching given the patients baseline skin pigmentation will continue monitor Drainage / Odor: None Edges: ?Mirrored [place] wound: pink moist tissue ? No Induration, Fluctuance or Warmth noted Pain: denies Goals of Treatment: ? Barrier cream or foam dressing and off load pressure with q2hr turns Recommendations: 1. Turn and Reposition every 2 hours and as needed for patient comfort.? Use pillows or wedges to support off loading positions. 2. Off Load all bony prominences with use of pillows and heel boots if needed.? Apply Preventative foams where needed. ? 3. Monitor for incontinence and moisture control, use barrier creams when needed for prevention and treatment. 4. Provide adequate and supplemental nutrition.? 5. Order low air loss mattress. 6. When applicable maintain blood glucose levels per Providers order. Sacrum and Buttock - Off Load Pressure with Q2 hr turns and use of pillows - Cleanse with PH balance spray or wipes, pat dry. ?Apply thin layer of barrier cream to affected area.? Apply twice daily and Reapply thin layer PRN after each episode of incontinence. Right Toe and Right Leg - Elevate on pillows Cleanse with Betadine Daily may leave FUNDING SPECIALIST - if drainage occurs continue with betadine and cover with dry gauze dressing. Daily. Right Heel - Elevate heel off of bed surface with pillows.? Float heels off of pillows.? Apply skin prep allow to dry.? Apply heel foam dressings, peel back and assess Q shift and change every 3 days and PRN. Bilateral Hands - Apply Lotion or Vaseline Daily to keep skin moisturized. Re-consult wound care Nurse for wound deterioration or wound changes.
[2025-06-11 16:04] LABS: Glucose, Whole Blood 123 mg/dL (60-115)
[2025-06-11 21:26] LABS: Glucose, Whole Blood 118 mg/dL (60-115)
--- NOTE | 2025-06-11 23:34 | ECG_ITS ---
Test Reason : cp Blood Pressure : */* mmHG Vent. Rate : 92 BPM Atrial Rate : 92 BPM P-R Int : 144 ms QRS Dur : 92 ms QT Int : 356 ms P-R-T Axes : 71 91 253 degrees QTcB Int : 440 ms Sinus rhythm with occasional Premature atrial complexes Rightward axis Cannot rule out Inferior infarct (cited on or before 10-Jun-2025) ST & T wave abnormality, consider lateral ischemia Abnormal ECG When compared with ECG of 11-Jun-2025 12:33, No significant changes seen Referred By: Gordo Denson Electronically Signed By: PHILOMENA SUAREZ
[2025-06-12] VITALS (7 sets, daily range): BP systolic 137–156; BP diastolic 65–86; PULSE 83–114; RESP 16–18; TEMP 36.3–37.2; O2SAT 94–98
[2025-06-12 00:01] LABS: Troponin-I High Sensitivity 31.0 ng/L (<3.5-17.0)
[2025-06-12 02:00] LABS: Delay - Chemistry DELAY
[2025-06-12 02:36] LABS: Troponin-I High Sensitivity 31.2 ng/L (<3.5-17.0)
[2025-06-12 07:31] LABS: Hematocrit 38.1 % (37.0-47.0); Hemoglobin 11.5 g/dl (12.0-16.0); Imm Gran Abs Auto 0.05 X10*3/uL (0.00-0.03); Imm Gran Pct Auto 0.5 % (0.0-0.4); Lymphocytes Absolute Auto 1.4 X10*3/uL (1.2-4.9); Mean Corpuscular HGB Conc 30.2 g/dl (31.0-35.0); Mean Corpuscular Hemoglobin 19.4 pg (27.0-33.0); NRBC Abs Auto 0.000 X10*3/uL (0.0-0.012); NRBC Pct Auto 0.0 /100WBC (0.0-0.2); Red Blood Count 5.94 X10*6/uL (4.20-5.50)
[2025-06-12 07:33] LABS: Mean Corpuscular Volume 64.1 fL (80.0-98.0)
[2025-06-12 07:34] LABS: Platelet Count 329 X10*3/uL (160-400); White Blood Count 9.5 X10*3/uL (4.8-10.8)
[2025-06-12 07:42] LABS: Glucose, Whole Blood 125 mg/dL (60-115)
[2025-06-12 07:57] LABS: Anion Gap 16 (12-20); Blood Urea Nitrogen 56 mg/dL (9-16); Calcium 8.9 mg/dL (8.4-10.2); Carbon Dioxide 24 mmol/L (22-29); Chloride 107 mmol/L (96-108); Creatinine Clr Calc Pharmacy 37.1; Estimated Glomerular Filt Rate 29; Magnesium 1.9 mg/dL (1.6-2.6); Potassium 4.1 mmol/L (3.3-5.1); Sodium 143 mmol/L (135-145)
[2025-06-12] MEDS: Furosemide 100 MG/10 ML VIAL 60 MG IVPUSH ×2 (09:37→21:38)
[2025-06-12] MEDS: Aspirin Enteric Coated 81 MG TABLET.DR PO (09:38)
[2025-06-12] MEDS: 0.9 % Sodium Chloride Flush 3 ML SYRINGE IVFLUSH ×3 (09:38→21:39)
[2025-06-12] MEDS: Insulin Glargine,Hum.rec.anlog 100 UNIT/ML 10 ML VIAL 45 UNIT SUBCUT (09:40)
--- NOTE | 2025-06-12 10:37 | P.PNIM_ITS ---
Subjective Subjective Date of Service: 06/12/25 Interval History: Patient seen examined at bedside this morning, patient mentions that she is feeling better, creatinine also improving. With negative output of 1.7 L. Review of Systems Review of Systems: Yes all other systems are reviewed and are negative Physical Exam 2 Exam: Exam: General: AxOx3, No acute distress, decreased vision Head: AT/NC ENT: Moist mucous membranes Neck: supple CVS; increased RR Lungs: Bilateral rales, improved Abd: Soft non tender, non distended Ext: No edema and no calf tenderness MSK: left BKA Skin: erythema of BKA more pronounced. anasarca with sacral edema, bilateral hands with wounds, improving Psych: Cooperative with exam Neurology: no focal deficit Vital Signs: Vital Signs: Last Vital Signs Temp 97.5 F 06/12/25 08:00 Pulse 114 H 06/12/25 08:00 Resp 18 06/12/25 08:00 BP 150/74 H 06/12/25 08:00 Pulse Ox 95 06/12/25 08:00 O2 Del Method Room Air 06/12/25 08:00 BMI result Body Mass Index 41.7 Objective Data Active Medications Acetaminophen (Acetaminophen 325 Mg Tablet) 650 mg PO Q6H PRN PRN Reason: Pain, Mild 1-3,fever,headache Amlodipine Besylate (Amlodipine Besylate 10 Mg Tablet) 10 mg PO DAILY [facility]; Protocol Last Admin: 06/12/25 09:38 Dose: 10 mg Documented By: HESHAM Aspirin (Aspirin Enteric Coated 81 Mg Tablet.) 81 mg PO DAILY [facility] Last Admin: 06/12/25 09:38 Dose: 81 mg Documented By: HESHAM Calcium Carbonate (Calcium Carbonate 750 Mg Tab.Chew) 750 mg PO Q4H PRN PRN Reason: Heartburn Dextrose (Dextrose 50 % 25 Gm/50 Ml Syringe) 25 gm IVPUSH Q15M PRN; Protocol PRN Reason: per Hypoglycemia Standing Ord. Furosemide (Furosemide 100 Mg/10 Ml Vial) 60 mg IVPUSH BID [facility]; Protocol Last Admin: 06/12/25 09:37 Dose: 60 mg Documented By: HESHAM Glucose (Glucose Gel 15 Gm Gel..Gram.) 15 gm PO Q15M PRN; Protocol PRN Reason: per Hypoglycemia Standing Ord. Heparin Sodium (Porcine) (Heparin Sodium,Porcine 5,000 Unit/Ml Vial) 5,000 unit SUBCUT Q12H [facility] Last Admin: 06/12/25 06:04 Dose: 5,000 unit Documented By: CRISTOBAL Ceftriaxone Sodium 1 gm/ (Sodium Chloride) 50 mls @ 100 mls/hr IV DAILY [facility] Last Admin: 06/12/25 09:37 Dose: 100 mls/hr Documented By: HESHAM Insulin Glargine (Insulin Glargine,Hum.Rec.Anlog 100 Unit/Ml 10 Ml Vial) 45 unit SUBCUT DAILY [facility] Last Admin: 06/12/25 09:40 Dose: 45 unit Documented By: HESHAM Insulin Human Lispro (Insulin Lispro 100 Unit/Ml 3 Ml Vial) 0 unit SUBCUT QIDACHS [facility]; Protocol Last Admin: 06/12/25 09:36 Dose: Not Given Documented By: HESHAM Non-Admin Reason: No Insulin Coverage Magnesium Hydroxide (Milk Of Magnesia 30 Ml Oral.Susp) 30 ml PO DAILY PRN PRN Reason: Constipation Melatonin (Melatonin 3 Mg Tablet) 6 mg PO BEDTIME PRN PRN Reason: Insomnia Morphine Sulfate (Morphine Sulfate 4 Mg/Ml Cartridge) 1 mg IVPUSH Q6H PRN; Protocol PRN Reason: Pain, Severe (Pain Scale 7-10) Pantoprazole Sodium (Pantoprazole Sodium 40 Mg/10 Ml Vial) 40 mg IVPUSH DAILY@0630 [facility] Last Admin: 06/12/25 06:04 Dose: 40 mg Documented By: CRISTOBAL Sodium Chloride (0.9 % Sodium Chloride Flush 3 Ml Syringe) 3 ml IVFLUSH QSHIFT [facility] Last Admin: 06/12/25 09:38 Dose: 3 ml Documented By: HESHAM Vitamin D (Cholecalciferol (Vitamin D3) 25 Mcg Tablet) 25 mcg PO DAILY [facility] Last Admin: 06/12/25 09:38 Dose: 25 mcg Documented By: HESHAM Labs 06/12/25 06:16 06/12/25 06:16 Labs: Laboratory Results - last 24 hr 06/11/25 06/11/25 06/11/25 11:07 13:11 15:59 MCV MCH MCHC RDW Plt Count MPV Immature Gran % (Auto) Neut % (Auto) Lymph % (Auto) [place] % (Auto) Eos % (Auto) Baso % (Auto) Lymph # (Auto) [place] # (Auto) Eos # (Auto) Baso # (Auto) Abs Immat Gran (auto) Absolute Neuts (auto) Absolute Nucleated RBC Nucleated RBC % (auto) Anion Gap Estim Creat Clear Calc Estimated GFR POC Glucose 199 H 123 H Random Glucose Calcium Magnesium Troponin I High Sens 28.6 H Specimen Comment 06/11/25 06/11/25 06/12/25 21:20 23:05 01:40 MCV MCH MCHC RDW Plt Count MPV Immature Gran % (Auto) Neut % (Auto) Lymph % (Auto) [place] % (Auto) Eos % (Auto) Baso % (Auto) Lymph # (Auto) [place] # (Auto) Eos # (Auto) Baso # (Auto) Abs Immat Gran (auto) Absolute Neuts (auto) Absolute Nucleated RBC Nucleated RBC % (auto) Anion Gap Estim Creat Clear Calc Estimated GFR POC Glucose 118 H Random Glucose Calcium Magnesium Troponin I High Sens 31.0 H 31.2 H Specimen Comment DELAY 06/12/25 06/12/25 06:16 07:34 MCV 64.1 L MCH 19.4 L MCHC 30.2 L RDW 19.0 H Plt Count 329 MPV 10.9 Immature Gran % (Auto) 0.5 H Neut % (Auto) 69.8 Lymph % (Auto) 14.6 L [place] % (Auto) 11.6 H Eos % (Auto) 2.9 Baso % (Auto) 0.6 Lymph # (Auto) 1.4 [place] # (Auto) 1.1 Eos # (Auto) 0.3 Baso # (Auto) 0.1 Abs Immat Gran (auto) 0.05 H Absolute Neuts (auto) 6.6 Absolute Nucleated RBC 0.000 Nucleated RBC % (auto) 0.0 Anion Gap 16 Estim Creat Clear Calc 37.1 Estimated GFR 29 POC Glucose 125 H Random Glucose 119 H Calcium 8.9 Magnesium 1.9 Troponin I High Sens Specimen Comment Assessment and Plan (1) CHF (congestive heart failure): Status: Acute (2) LUIS (acute kidney injury): Status: Acute Plan Assessment: 60-year-old female who presented to hospital complaining of worsening shortness of breath, found to [place] [address] on physical exam with anasarca. CHF exacerbation, improving HFrEF with TTE on 01/24/2025 EF of 25% Hypertension, chronic PAD s/p Left BKA -pro BNP 25,586, TSH 1.35 -chest CT with biliary and pleural effusions, cardiomegaly and pulmonary edema -TTE EF of 24% with severely decreased systolic function, akinesis of inferoseptal wall, basal inferior, basal anteroseptal and mid anteroseptal segment, small pericardial effusion -Decrease Lasix to 60 mg IV b.i.d. -Continue ASA -continue telemetry -cardiology consulted -strict Is&Os as well as daily weights -Potassium around 4 and magnesium around 2 Leukocytosis, suspect secondary to cellulitis, resolved Cellulitis of left lower extremity -influenza and COVID negative -continue ceftriaxone 1gr q 24 hours Anemia, suspect of chronic disease -patient on Procrit, at this time we will monitor and transfuse for hemoglobin less than 8 -monitor for any bleeding, follow up with outpatient Hematology LUIS and CKD, likely secondary to prerenal azotemia from decreased renal perfusion, improving -creatinine on admission 2.1->1.9-> 1.7 -we will continue to monitor labs -Nephrology consulted Type 2 diabetes, chronic, uncontrolled with A1c done on 04/20 greater than 14 Suspect retinopathy secondary to T2 dm -Continue insulin sliding scale and home dose of basal insulin 45 units q.d. Ambulatory dysfunction, likely multifactorial in the setting of left lower extremity BKA as well as decreased vision -fall precautions FEN: NI, replete as needed, diabetic with fluid restrictions and low-salt diet GI PPx: Pantoprazole DVT PPX: Heparin given patient's LUIS on CKD Code status: Full code Disposition: All questions and concerns with the patient were answered to satisfaction. All pertinent clinical documents, images and labs were reviewed. Total time managing care of this patient today: 55 minutes. Quality Stroke Does the patient have a stroke diagnosis?: No VTE Prior VTE?: No VTE Risk Level:: Medical - moderate - high VTE Device Contraindication: Treatment Not Indicated VTE Drug Contraindication: N/A - Med Ordered
--- NOTE | 2025-06-12 10:51 | PM.PNCARD ---
Subjective Subjective Date of Service: 06/12/25 Interval history: Shortness of breath is slightly improved. She is currently in a wheelchair by the side of the bed. States feeling okay otherwise. Review of Systems Review of Systems Yes all other systems are reviewed and are negative Constitutional: Reports as per HPI and Reports no additional constitutional complaints Eyes: Reports as per HPI and Denies no additional eye complaints Denies system reviewed and no additional complaints, except as documented and Reports as per HPI Cardiovascular: Reports as per HPI, Reports no additional cardiovascular complaints, Denies acrocyanosis, Denies cool extremities, Denies chest pain, Reports leg edema, Denies lightheadedness, Denies palpitations and Reports dyspnea Respiratory: Reports as per HPI, Denies no additional respiratory complaints and Reports dyspnea Gastrointestinal: Reports as per HPI and Denies no additional gastrointestinal complaints Musculoskeletal: Reports no additional musculoskeletal complaints and Reports as per HPI Skin/Breast: Reports system reviewed and no additional complaints, except as docu Reports system reviewed and no additional complaints, except as documented and Reports as per HPI Psychiatric: Reports no additional psychiatric complaints and Reports as per HPI Endocrine: Reports no additional endocrine complaints, Reports as per HPI and Denies palpitations Hematologic/Lymphatic: Reports no additional hematologic/lymphatic complaints and Reports as per HPI Allergic/Immunologic: Reports no additional allergic/immunologic complaints and Reports as per HPI Physical Exam Vital Signs: Last Vital Signs Temp 97.5 F 06/12/25 08:00 Pulse 114 H 06/12/25 08:00 Resp 18 06/12/25 08:00 BP 150/74 H 06/12/25 08:00 Pulse Ox 95 06/12/25 08:00 O2 Del Method Room Air 06/12/25 08:00 BMI result Body Mass Index 41.7 Const General: comfortable and no acute distress Orientation/consciousness: patient oriented x3 HEENT Other: Unremarkable Head: Yes normal to inspection Neck Neck: Yes normal visual inspection Chest Chest palpation & inspection: normal inspection of the chest Resp Other: Fine inspiratory crackles Cardio Palpation: normal PMI Heart sounds: S1 normal heart sound present, S2 normal heart sound present, no gallops, no murmurs and no rubs GI Palpation (GI): Soft to palpation Back/Spine/Pelvis Other: unremarkable Skin General skin exam: no rashes or lesions noted Neuro General: patient oriented x3 Extrem Other: L BKA. Psych Mental Status: mental status grossly normal Objective Labs and Meds 06/12/25 06:16 06/12/25 06:16 Lab results: Laboratory Results - last 24 hr 06/11/25 06/11/25 06/11/25 11:07 13:11 15:59 WBC RBC Hgb Hct MCV MCH MCHC RDW Plt Count MPV Immature Gran % (Auto) Neut % (Auto) Lymph % (Auto) [place] % (Auto) Eos % (Auto) Baso % (Auto) Lymph # (Auto) [place] # (Auto) Eos # (Auto) Baso # (Auto) Abs Immat Gran (auto) Absolute Neuts (auto) Absolute Nucleated RBC Nucleated RBC % (auto) Sodium Potassium Chloride Carbon Dioxide Anion Gap BUN Creatinine Estim Creat Clear Calc Estimated GFR POC Glucose 199 H 123 H Random Glucose Calcium Magnesium Troponin I High Sens 28.6 H Specimen Comment 06/11/25 06/11/25 06/12/25 21:20 23:05 01:40 WBC RBC Hgb Hct MCV MCH MCHC RDW Plt Count MPV Immature Gran % (Auto) Neut % (Auto) Lymph % (Auto) [place] % (Auto) Eos % (Auto) Baso % (Auto) Lymph # (Auto) [place] # (Auto) Eos # (Auto) Baso # (Auto) Abs Immat Gran (auto) Absolute Neuts (auto) Absolute Nucleated RBC Nucleated RBC % (auto) Sodium Potassium Chloride Carbon Dioxide Anion Gap BUN Creatinine Estim Creat Clear Calc Estimated GFR POC Glucose 118 H Random Glucose Calcium Magnesium Troponin I High Sens 31.0 H 31.2 H Specimen Comment DELAY 06/12/25 06/12/25 06:16 07:34 WBC 9.5 RBC 5.94 H Hgb 11.5 L Hct 38.1 MCV 64.1 L MCH 19.4 L MCHC 30.2 L RDW 19.0 H Plt Count 329 MPV 10.9 Immature Gran % (Auto) 0.5 H Neut % (Auto) 69.8 Lymph % (Auto) 14.6 L [place] % (Auto) 11.6 H Eos % (Auto) 2.9 Baso % (Auto) 0.6 Lymph # (Auto) 1.4 [place] # (Auto) 1.1 Eos # (Auto) 0.3 Baso # (Auto) 0.1 Abs Immat Gran (auto) 0.05 H Absolute Neuts (auto) 6.6 Absolute Nucleated RBC 0.000 Nucleated RBC % (auto) 0.0 Sodium 143 Potassium 4.1 Chloride 107 Carbon Dioxide 24 Anion Gap 16 BUN 56 H Creatinine 1.77 H Estim Creat Clear Calc 37.1 Estimated GFR 29 POC Glucose 125 H Random Glucose 119 H Calcium 8.9 Magnesium 1.9 Troponin I High Sens Specimen Comment Progress Note: A&P Assessment and plan (1) Acute on chronic combined systolic and diastolic CHF (congestive heart failure): Status: Acute Plan In the recent echocardiogram, LVEF 25%. Basal to mid inferior, mid inferoseptal and mid inferolateral akinesis. Moderate pulmonary hypertension. Coronary CTA 2022-left main with no significant stenosis. In the proximal LAD, at the 1st diagonal takeoff with < 30% stenosis. Between the 2nd and 3rd diagonal, probably < 70% stenosis in the LAD. Proximal circumflex with < 30% stenosis. Proximal/mid RCA junction, 50% stenosis. In the mid RCA 60% stenosis. Overall, many comorbidities, minimal ambulation, cardiomyopathy, coronary disease, decompensated heart failure. Creatinine near her baseline. NT proBNP around 26,000. High sensitivity troponin is slightly above range but acceptable. CT chest reported have layering pleural effusions, mildly prominent pulmonary vascularity, cardiomegaly and diffuse ground-glass densities-mild pulmonary edema versus atypical/viral pneumonitis. Overall, treat for congestive heart failure and continue IV diuretics noting recommendations from Nephrology. Considering her many comorbidities and multiorgan dysfunction, guarded prognosis. Time Spent With Patient Time: Total time managing care of this patient today ____ minutes. Progress Note: Quality Stroke Does the patient have a stroke diagnosis?: No Procedures Date of Service Date of Service: 06/12/25
[2025-06-12 11:34] LABS: Glucose, Whole Blood 220 mg/dL (60-115)
[2025-06-12 16:30] LABS: Glucose, Whole Blood 128 mg/dL (60-115)
[2025-06-12 20:40] LABS: Glucose, Whole Blood 173 mg/dL (60-115)
--- NOTE | 2025-06-13 | ECG_ITS ---
Test Reason : arrythmia Blood Pressure : */* mmHG Vent. Rate : 109 BPM Atrial Rate : 109 BPM P-R Int : 144 ms QRS Dur : 88 ms QT Int : 338 ms P-R-T Axes : 82 87 251 degrees QTcB Int : 455 ms Sinus tachycardia with Premature atrial complexes ST & T wave abnormality, consider inferolateral ischemia Abnormal ECG When compared with ECG of 11-Jun-2025 23:34, Premature ventricular complexes are no longer Present Referred By: Gordo Denson Electronically Signed By: CARSON LOPEZ MD
[2025-06-13 03:47] VITALS: BP 158/74; PULSE 106; RESP 16; TEMP 36.6; O2SAT 92
[2025-06-13 07:10] VITALS: BP 125/57; PULSE 82; RESP 18; TEMP 36.7; O2SAT 97
[2025-06-13 07:23] LABS: Glucose, Whole Blood 59 mg/dL (60-115)
[2025-06-13 08:02] LABS: MANUAL DIFF FLAG NO
[2025-06-13] MEDS: Furosemide 100 MG/10 ML VIAL 60 MG IVPUSH ×2 (08:04→20:38)
[2025-06-13] MEDS: Aspirin Enteric Coated 81 MG TABLET.DR PO (08:05)
[2025-06-13] MEDS: 0.9 % Sodium Chloride Flush 3 ML SYRINGE IVFLUSH ×3 (08:05→20:40)
[2025-06-13 08:07] LABS: Hematocrit 38.8 % (37.0-47.0); NRBC Abs Auto 0.000 X10*3/uL (0.0-0.012); NRBC Pct Auto 0.0 /100WBC (0.0-0.2); SCAN SMEAR FLAG 1
[2025-06-13 08:09] LABS: Hemoglobin 11.7 g/dl (12.0-16.0); Imm Gran Abs Auto 0.03 X10*3/uL (0.00-0.03); Imm Gran Pct Auto 0.3 % (0.0-0.4); Lymphocytes Absolute Auto 2.1 X10*3/uL (1.2-4.9); Mean Corpuscular HGB Conc 30.2 g/dl (31.0-35.0); Mean Corpuscular Hemoglobin 19.1 pg (27.0-33.0); Platelet Count 334 X10*3/uL (160-400); Red Blood Count 6.14 X10*6/uL (4.20-5.50); White Blood Count 10.5 X10*3/uL (4.8-10.8)
[2025-06-13 08:09] LABS: Glucose, Whole Blood 168 mg/dL (60-115)
[2025-06-13 08:15] LABS: Mean Corpuscular Volume 63.2 fL (80.0-98.0); PLT ABN DIST 1
[2025-06-13 08:26] LABS: Anion Gap 14 (12-20); Blood Urea Nitrogen 56 mg/dL (9-16); Calcium 9.0 mg/dL (8.4-10.2); Carbon Dioxide 27 mmol/L (22-29); Chloride 106 mmol/L (96-108); Creatinine Clr Calc Pharmacy 40.3; Estimated Glomerular Filt Rate 32; Magnesium 1.7 mg/dL (1.6-2.6); Potassium 4.2 mmol/L (3.3-5.1); Sodium 143 mmol/L (135-145)
--- NOTE | 2025-06-13 09:45 | P.PNIM_ITS ---
Subjective Subjective Date of Service: 06/13/25 Interval History: Patient seen and examined at bedside this morning, patient states that she feels that her swelling has improved, however when laying in bed swelling and abdominal area worsens. With negative output of 1.5 L Review of Systems Review of Systems: Yes all other systems are reviewed and are negative Physical Exam 2 Exam: Exam: General: AxOx3, No acute distress, decreased vision Head: AT/NC ENT: Moist mucous membranes Neck: supple CVS; RRR Lungs: Bilateral rales, improved Abd: Soft non tender, non distended Ext: No edema and no calf tenderness MSK: left BKA Skin: erythema of BKA, anasarca with sacral edema, bilateral hands with wounds, improving Psych: Cooperative with exam Neurology: no focal deficit Vital Signs: Vital Signs: Last Vital Signs Temp 98.0 F 06/13/25 07:10 Pulse 82 06/13/25 07:10 Resp 18 06/13/25 07:10 BP 125/57 L 06/13/25 07:10 Pulse Ox 97 06/13/25 07:10 O2 Del Method Room Air 06/13/25 07:10 BMI result Body Mass Index 41.7 Objective Data Active Medications Acetaminophen (Acetaminophen 325 Mg Tablet) 650 mg PO Q6H PRN PRN Reason: Pain, Mild 1-3,fever,headache Amlodipine Besylate (Amlodipine Besylate 10 Mg Tablet) 10 mg PO DAILY [facility]; Protocol Last Admin: 06/13/25 08:04 Dose: 10 mg Documented By: HESHAM Aspirin (Aspirin Enteric Coated 81 Mg Tablet.Dr) 81 mg PO DAILY [facility] Last Admin: 06/13/25 08:05 Dose: 81 mg Documented By: HESHAM Calcium Carbonate (Calcium Carbonate 750 Mg Tab.Chew) 750 mg PO Q4H PRN PRN Reason: Heartburn Dextrose (Dextrose 50 % 25 Gm/50 Ml Syringe) 25 gm IVPUSH Q15M PRN; Protocol PRN Reason: per Hypoglycemia Standing Ord. Furosemide (Furosemide 100 Mg/10 Ml Vial) 60 mg IVPUSH BID [facility]; Protocol Last Admin: 06/13/25 08:04 Dose: 60 mg Documented By: HESHAM Glucose (Glucose Gel 15 Gm Gel..Gram.) 15 gm PO Q15M PRN; Protocol PRN Reason: per Hypoglycemia Standing Ord. Heparin Sodium (Porcine) (Heparin Sodium,Porcine 5,000 Unit/Ml Vial) 5,000 unit SUBCUT Q12H [facility] Last Admin: 06/13/25 05:50 Dose: 5,000 unit Documented By: CRISTOBAL Ceftriaxone Sodium 1 gm/ (Sodium Chloride) 50 mls @ 100 mls/hr IV DAILY [facility] Last Admin: 06/13/25 08:03 Dose: 100 mls/hr Documented By: HESHAM Insulin Glargine (Insulin Glargine,Hum.Rec.Anlog 100 Unit/Ml 10 Ml Vial) 45 unit SUBCUT DAILY [facility] Last Admin: 06/12/25 09:40 Dose: 45 unit Documented By: HESHAM Insulin Human Lispro (Insulin Lispro 100 Unit/Ml 3 Ml Vial) 0 unit SUBCUT QIDACHS [facility]; Protocol Last Admin: 06/13/25 08:06 Dose: Not Given Documented By: HESHAM Non-Admin Reason: No Insulin Coverage Magnesium Hydroxide (Milk Of Magnesia 30 Ml Oral.Susp) 30 ml PO DAILY PRN PRN Reason: Constipation Melatonin (Melatonin 3 Mg Tablet) 6 mg PO BEDTIME PRN PRN Reason: Insomnia Morphine Sulfate (Morphine Sulfate 4 Mg/Ml Cartridge) 1 mg IVPUSH Q6H PRN; Protocol PRN Reason: Pain, Severe (Pain Scale 7-10) Pantoprazole Sodium (Pantoprazole Sodium 40 Mg/10 Ml Vial) 40 mg IVPUSH DAILY@0630 [facility] Last Admin: 06/13/25 05:50 Dose: 40 mg Documented By: CRISTOBAL Sodium Chloride (0.9 % Sodium Chloride Flush 3 Ml Syringe) 3 ml IVFLUSH QSHIFT [facility] Last Admin: 06/13/25 08:05 Dose: 3 ml Documented By: HESHAM Vitamin D (Cholecalciferol (Vitamin D3) 25 Mcg Tablet) 25 mcg PO DAILY [facility] Last Admin: 06/13/25 08:05 Dose: 25 mcg Documented By: HESHAM Labs 06/13/25 07:29 06/13/25 07:29 Labs: Laboratory Results - last 24 hr 06/12/25 06/12/25 06/12/25 11:27 16:20 20:13 MCV MCH MCHC RDW Plt Count MPV Immature Gran % (Auto) Neut % (Auto) Lymph % (Auto) [place] % (Auto) Eos % (Auto) Baso % (Auto) Lymph # (Auto) [place] # (Auto) Eos # (Auto) Baso # (Auto) Abs Immat Gran (auto) Absolute Neuts (auto) Absolute Nucleated RBC Nucleated RBC % (auto) Anion Gap Estim Creat Clear Calc Estimated GFR POC Glucose 220 H 128 H 173 H Random Glucose Calcium Magnesium 06/13/25 06/13/25 06/13/25 07:17 07:29 08:06 MCV 63.2 L MCH 19.1 L MCHC 30.2 L RDW 19.2 H Plt Count 334 MPV 10.3 Immature Gran % (Auto) 0.3 Neut % (Auto) 64.3 Lymph % (Auto) 19.6 L [place] % (Auto) 11.7 H Eos % (Auto) 3.4 Baso % (Auto) 0.7 Lymph # (Auto) 2.1 [place] # (Auto) 1.2 Eos # (Auto) 0.4 Baso # (Auto) 0.1 Abs Immat Gran (auto) 0.03 Absolute Neuts (auto) 6.7 Absolute Nucleated RBC 0.000 Nucleated RBC % (auto) 0.0 Anion Gap 14 Estim Creat Clear Calc 40.3 Estimated GFR 32 POC Glucose 59 L* 168 H Random Glucose 62 Calcium 9.0 Magnesium 1.7 Assessment and Plan (1) CHF (congestive heart failure): Status: Acute (2) LUIS (acute kidney injury): Status: Acute Plan Assessment: 60-year-old female who presented to hospital complaining of worsening shortness of breath, found to [place] [address] on physical exam with anasarca. started on IV Lasix 100mg BID on admission, with improvement CHF exacerbation, improving HFrEF with TTE on 01/24/2025 EF of 25% Hypertension, chronic PAD s/p Left BKA -pro BNP 25,586, TSH 1.35 -chest CT with biliary and pleural effusions, cardiomegaly and pulmonary edema -TTE EF of 24% with severely decreased systolic function, akinesis of inferoseptal wall, basal inferior, basal anteroseptal and mid anteroseptal segment, small pericardial effusion -Continue Lasix 60 mg IV b.i.d. -Continue ASA -continue telemetry -cardiology consulted -strict Is&Os as well as daily weights -Potassium around 4 and magnesium around 2 Leukocytosis, suspect secondary to cellulitis, resolved Cellulitis of left lower extremity, improving -influenza and COVID negative -continue ceftriaxone 1gr q 24 hours Anemia, suspect of chronic disease -patient on Procrit, at this time we will monitor and transfuse for hemoglobin less than 8 -monitor for any bleeding, follow up with outpatient Hematology LUIS and CKD, likely secondary to prerenal azotemia from decreased renal perfusion, resolved -creatinine on admission 2.1->1.9-> 1.7 -> 1.6 -we will continue to monitor labs -Nephrology consulted Type 2 diabetes, chronic, uncontrolled with A1c done on 04/20 greater than 14 Suspect retinopathy secondary to T2 dm -Continue insulin sliding scale and home dose of basal insulin 45 units q.d. Ambulatory dysfunction, likely multifactorial in the setting of left lower extremity BKA as well as decreased vision -fall precautions FEN: NI, replete as needed, diabetic with fluid restrictions and low-salt diet GI PPx: Pantoprazole DVT PPX: Heparin given patient's LUIS on CKD Code status: Full code Disposition: All questions and concerns with the patient were answered to satisfaction. All pertinent clinical documents, images and labs were reviewed. Total time managing care of this patient today: 55 minutes. Quality Stroke Does the patient have a stroke diagnosis?: No VTE Prior VTE?: No VTE Risk Level:: Medical - moderate - high VTE Device Contraindication: Treatment Not Indicated VTE Drug Contraindication: N/A - Med Ordered
[2025-06-13 11:10] VITALS: BP 136/74; PULSE 99; RESP 18; TEMP 36.5; O2SAT 95
[2025-06-13 11:35] LABS: Glucose, Whole Blood 163 mg/dL (60-115)
--- NOTE | 2025-06-13 12:07 | PC.NURSE ---
This RN was notified that the patient had a 4 beats of V tach and then within 20 minutes had 3 beats of V tach, attending notified and cardiology was also on the floor and I showed him the strip with the 4 beats. EKG ordered. patient denies any chest pain or discomfort at this time
--- NOTE | 2025-06-13 12:45 | P.PNCA_ITS ---
Subjective Subjective Date of Service: 06/13/25 Interval history: Continues to be on diuretis. Still feels some fullness in the lower abdomen. Review of Systems Review of Systems Yes all other systems are reviewed and are negative Constitutional: Reports as per HPI and Reports no additional constitutional complaints Eyes: Reports as per HPI and Denies no additional eye complaints Denies system reviewed and no additional complaints, except as documented and Reports as per HPI Cardiovascular: Reports as per HPI, Reports no additional cardiovascular complaints, Denies acrocyanosis, Denies cool extremities, Denies chest pain, Reports leg edema, Denies lightheadedness, Denies palpitations and Reports dyspnea Respiratory: Reports as per HPI, Denies no additional respiratory complaints and Reports dyspnea Gastrointestinal: Reports as per HPI and Denies no additional gastrointestinal complaints Musculoskeletal: Reports no additional musculoskeletal complaints and Reports as per HPI Skin/Breast: Reports system reviewed and no additional complaints, except as docu Reports system reviewed and no additional complaints, except as documented and Reports as per HPI Psychiatric: Reports no additional psychiatric complaints and Reports as per HPI Endocrine: Reports no additional endocrine complaints, Reports as per HPI and Denies palpitations Hematologic/Lymphatic: Reports no additional hematologic/lymphatic complaints and Reports as per HPI Allergic/Immunologic: Reports no additional allergic/immunologic complaints and Reports as per HPI Physical Exam Vital Signs: Last Vital Signs Temp 97.7 F 06/13/25 11:10 Pulse 99 06/13/25 11:10 Resp 18 06/13/25 11:10 BP 136/74 06/13/25 11:10 Pulse Ox 95 06/13/25 11:10 O2 Del Method Room Air 06/13/25 11:10 BMI result Body Mass Index 41.7 Const General: comfortable and no acute distress Orientation/consciousness: patient oriented x3 HEENT Other: Unremarkable Head: Yes normal to inspection Neck Neck: Yes normal visual inspection Chest Chest palpation & inspection: normal inspection of the chest Resp Other: Fine inspiratory crackles Cardio Palpation: normal PMI Heart sounds: S1 normal heart sound present, S2 normal heart sound present, no gallops, no murmurs and no rubs GI Palpation (GI): Soft to palpation Back/Spine/Pelvis Other: unremarkable Skin General skin exam: no rashes or lesions noted Neuro General: patient oriented x3 Extrem Other: L BKA. Psych Mental Status: mental status grossly normal Objective Labs and Meds 06/13/25 07:29 06/13/25 07:29 Lab results: Laboratory Results - last 24 hr 06/12/25 06/12/25 06/13/25 16:20 20:13 07:17 WBC RBC Hgb Hct MCV MCH MCHC RDW Plt Count MPV Immature Gran % (Auto) Neut % (Auto) Lymph % (Auto) [place] % (Auto) Eos % (Auto) Baso % (Auto) Lymph # (Auto) [place] # (Auto) Eos # (Auto) Baso # (Auto) Abs Immat Gran (auto) Absolute Neuts (auto) Absolute Nucleated RBC Nucleated RBC % (auto) Sodium Potassium Chloride Carbon Dioxide Anion Gap BUN Creatinine Estim Creat Clear Calc Estimated GFR POC Glucose 128 H 173 H 59 L* Random Glucose Calcium Magnesium 06/13/25 06/13/25 06/13/25 07:29 08:06 11:13 WBC 10.5 RBC 6.14 H Hgb 11.7 L Hct 38.8 MCV 63.2 L MCH 19.1 L MCHC 30.2 L RDW 19.2 H Plt Count 334 MPV 10.3 Immature Gran % (Auto) 0.3 Neut % (Auto) 64.3 Lymph % (Auto) 19.6 L [place] % (Auto) 11.7 H Eos % (Auto) 3.4 Baso % (Auto) 0.7 Lymph # (Auto) 2.1 [place] # (Auto) 1.2 Eos # (Auto) 0.4 Baso # (Auto) 0.1 Abs Immat Gran (auto) 0.03 Absolute Neuts (auto) 6.7 Absolute Nucleated RBC 0.000 Nucleated RBC % (auto) 0.0 Sodium 143 Potassium 4.2 Chloride 106 Carbon Dioxide 27 Anion Gap 14 BUN 56 H Creatinine 1.63 H Estim Creat Clear Calc 40.3 Estimated GFR 32 POC Glucose 168 H 163 H Random Glucose 62 Calcium 9.0 Magnesium 1.7 Progress Note: A&P Assessment and plan (1) Acute on chronic combined systolic and diastolic CHF (congestive heart failure): Status: Acute Plan In the recent echocardiogram, LVEF 25%. Basal to mid inferior, mid inferoseptal and mid inferolateral akinesis. Moderate pulmonary hypertension. Coronary CTA 2022-left main with no significant stenosis. In the proximal LAD, at the 1st diagonal takeoff with < 30% stenosis. Between the 2nd and 3rd diagonal, probably < 70% stenosis in the LAD. Proximal circumflex with < 30% stenosis. Proximal/mid RCA junction, 50% stenosis. In the mid RCA 60% stenosis. Overall, many comorbidities, minimal ambulation, cardiomyopathy, coronary disease, decompensated heart failure. Creatinine seems to be actually improving since admission. CT chest reported have layering pleural effusions, mildly prominent pulmonary vascularity, cardiomegaly and diffuse ground-glass densities-mild pulmonary edema versus atypical/viral pneumonitis. Overall, treat for congestive heart failure and continue IV diuretics noting recommendations from Nephrology. So far, she is -4 L. Considering her many comorbidities and multiorgan dysfunction, guarded prognosis. Otherwise, in the past cardiac catheterization was arranged per outpatient notes but it seems that patient could not keep that appointment. That we will need to be addressed again at some point but she will be at risk for contrast induced nephropathy. Otherwise home medications will need to be reconciled and [id number] and nitrates. Time Spent With Patient Time: Total time managing care of this patient today ____ minutes. Progress Note: Quality Stroke Does the patient have a stroke diagnosis?: No Procedures Date of Service Date of Service: 06/13/25
[2025-06-13 15:37] VITALS: BP 136/70; PULSE 88; RESP 16; TEMP 36.4; O2SAT 95
[2025-06-13 16:07] LABS: Glucose, Whole Blood 104 mg/dL (60-115)
[2025-06-13 20:00] VITALS: BP 121/64; PULSE 73; RESP 20; TEMP 36.7; O2SAT 96
[2025-06-13 20:33] LABS: Glucose, Whole Blood 194 mg/dL (60-115)
[2025-06-13 23:41] VITALS: BP 146/70; PULSE 106; RESP 20; TEMP 36.6; O2SAT 96
[2025-06-14 04:00] VITALS: BP 141/89; PULSE 82; RESP 18; TEMP 36.5; O2SAT 94
[2025-06-14 06:00] VITALS: BMI 42.2
[2025-06-14 07:20] LABS: Glucose, Whole Blood 151 mg/dL (60-115)
[2025-06-14 07:32] VITALS: BP 135/74; PULSE 97; RESP 20; TEMP 36.5; O2SAT 95
[2025-06-14 07:46] LABS: Anion Gap 16 (12-20); Blood Urea Nitrogen 60 mg/dL (9-16); Calcium 8.9 mg/dL (8.4-10.2); Carbon Dioxide 28 mmol/L (22-29); Chloride 101 mmol/L (96-108); Creatinine Clr Calc Pharmacy 40.5; Estimated Glomerular Filt Rate 32; Magnesium 1.5 mg/dL (1.6-2.6); Potassium 4.2 mmol/L (3.3-5.1); Sodium 141 mmol/L (135-145)
[2025-06-14] MEDS: Furosemide 100 MG/10 ML VIAL 60 MG IVPUSH (09:22)
[2025-06-14] MEDS: Metoprolol Succinate ER 100 MG TAB.ER.24H PO (09:22)
[2025-06-14] MEDS: 0.9 % Sodium Chloride Flush 3 ML SYRINGE IVFLUSH ×2 (09:23→16:29)
[2025-06-14] MEDS: Aspirin Enteric Coated 81 MG TABLET.DR PO (09:23)
[2025-06-14] MEDS: Insulin Glargine,Hum.rec.anlog 100 UNIT/ML 10 ML VIAL 45 UNIT SUBCUT (09:26)
--- NOTE | 2025-06-14 09:27 | P.PNIM_ITS ---
Subjective Subjective Date of Service: 06/14/25 Interval History: Patient seen and examined at bedside this morning, patient with low magnesium, continues on IV diuresis. Mentioned that she is feeling better, however persists with left lower extremity pain. Review of Systems Review of Systems: Yes all other systems are reviewed and are negative Physical Exam 2 Exam: Exam: General: AxOx3, No acute distress, decreased vision Head: AT/NC ENT: Moist mucous membranes Neck: supple CVS; RRR Lungs: Bilateral rales Abd: Soft non tender, non distended Ext: No edema and no calf tenderness MSK: left BKA Skin: erythema of BKA, anasarca with sacral edema, bilateral hands with wounds, improving Psych: Cooperative with exam Neurology: no focal deficit Vital Signs: Vital Signs: Last Vital Signs Temp 97.7 F 06/14/25 07:32 Pulse 97 06/14/25 07:32 Resp 20 06/14/25 07:32 BP 135/74 06/14/25 07:32 Pulse Ox 95 06/14/25 07:32 O2 Del Method Room Air 06/14/25 07:32 BMI result Body Mass Index 42.2 Objective Data Active Medications Acetaminophen (Acetaminophen 325 Mg Tablet) 650 mg PO Q6H PRN PRN Reason: Pain, Mild 1-3,fever,headache Amitriptyline HCl (Amitriptyline Hcl 25 Mg Tablet) 25 mg PO BEDTIME [facility] Last Admin: 06/13/25 20:38 Dose: 25 mg Documented By: GEN Amlodipine Besylate (Amlodipine Besylate 10 Mg Tablet) 10 mg PO DAILY [facility]; Protocol Last Admin: 06/13/25 08:04 Dose: 10 mg Documented By: HESHAM Aspirin (Aspirin Enteric Coated 81 Mg Tablet.Dr) 81 mg PO DAILY [facility] Last Admin: 06/13/25 08:05 Dose: 81 mg Documented By: HESHAM Calcium Carbonate (Calcium Carbonate 750 Mg Tab.Chew) 750 mg PO Q4H PRN PRN Reason: Heartburn Dextrose (Dextrose 50 % 25 Gm/50 Ml Syringe) 25 gm IVPUSH Q15M PRN; Protocol PRN Reason: per Hypoglycemia Standing Ord. Ezetimibe (Ezetimibe 10 Mg Tablet) 10 mg PO DAILY [facility] Furosemide (Furosemide 100 Mg/10 Ml Vial) 60 mg IVPUSH BID [facility]; Protocol Last Admin: 06/13/25 20:38 Dose: 60 mg Documented By: GEN Glucose (Glucose Gel 15 Gm Gel..Gram.) 15 gm PO Q15M PRN; Protocol PRN Reason: per Hypoglycemia Standing Ord. Heparin Sodium (Porcine) (Heparin Sodium,Porcine 5,000 Unit/Ml Vial) 5,000 unit SUBCUT Q12H [facility] Last Admin: 06/14/25 05:17 Dose: 5,000 unit Documented By: GEN Ceftriaxone Sodium 1 gm/ (Sodium Chloride) 50 mls @ 100 mls/hr IV DAILY [facility] Last Infusion: 06/13/25 09:00 Dose: Infused Documented By: HESHAM Insulin Glargine (Insulin Glargine,Hum.Rec.Anlog 100 Unit/Ml 10 Ml Vial) 45 unit SUBCUT DAILY [facility] Last Admin: 06/13/25 09:00 Dose: Not Given Documented By: HESHAM Non-Admin Reason: blood sugar is too low Insulin Human Lispro (Insulin Lispro 100 Unit/Ml 3 Ml Vial) 0 unit SUBCUT QIDACHS [facility]; Protocol Last Admin: 06/13/25 20:38 Dose: 2 unit Documented By: GEN Isosorbide Mononitrate (Isosorbide Mononitrate 60 Mg Tab.Er.24h) 60 mg PO DAILY [facility]; Protocol Lisinopril (Lisinopril 10 Mg Tablet) 10 mg PO DAILY [facility]; Protocol Magnesium Hydroxide (Milk Of Magnesia 30 Ml Oral.Susp) 30 ml PO DAILY PRN PRN Reason: Constipation Magnesium Oxide (Magnesium Oxide 400 Mg Tablet) 400 mg PO TID [facility] Last Admin: 06/13/25 20:38 Dose: 400 mg Documented By: GEN Melatonin (Melatonin 3 Mg Tablet) 6 mg PO BEDTIME PRN PRN Reason: Insomnia Metoprolol Succinate (Metoprolol Succinate Er 100 Mg Tab.Er.24h) 100 mg PO DAILY [facility]; Protocol Morphine Sulfate (Morphine Sulfate 4 Mg/Ml Cartridge) 1 mg IVPUSH Q6H PRN; Protocol PRN Reason: Pain, Severe (Pain Scale 7-10) Sodium Chloride (0.9 % Sodium Chloride Flush 3 Ml Syringe) 3 ml IVFLUSH QSHIFT [facility] Last Admin: 06/13/25 20:40 Dose: 3 ml Documented By: HO.BUSSIEL Vitamin D (Cholecalciferol (Vitamin D3) 25 Mcg Tablet) 25 mcg PO DAILY [facility] Last Admin: 06/13/25 08:05 Dose: 25 mcg Documented By: HESHAM Labs 06/13/25 07:29 06/14/25 07:04 Labs: Laboratory Results - last 24 hr 06/13/25 06/13/25 06/13/25 11:13 16:02 20:26 Hold Purple Top Anion Gap Estim Creat Clear Calc Estimated GFR POC Glucose 163 H 104 194 H Random Glucose Calcium Magnesium 06/14/25 06/14/25 07:04 07:14 Hold Purple Top SEE NOTE Anion Gap 16 Estim Creat Clear Calc 40.5 Estimated GFR 32 POC Glucose 151 H Random Glucose 135 H Calcium 8.9 Magnesium 1.5 L Assessment and Plan (1) CHF (congestive heart failure): Status: Acute (2) LUIS (acute kidney injury): Status: Acute Plan Assessment: 60-year-old female who presented to hospital complaining of worsening shortness of breath, found to [place] [id number] on physical exam with anasarca. started on IV Lasix 100mg BID on admission, continued to be fluid overloaded required to be placed on IV Lasix drip on 06/14 CHF exacerbation, improving HFrEF with TTE on 01/24/2025 EF of 25% Hypertension, chronic PAD s/p Left BKA -pro BNP 25,586, TSH 1.35, repeat pro BNP ordered -chest CT with biliary and pleural effusions, cardiomegaly and pulmonary edema -TTE EF of 24% with severely decreased systolic function, akinesis of inferoseptal wall, basal inferior, basal anteroseptal and mid anteroseptal segment, small pericardial effusion -Will initiate Lasix Drip -Continue ASA, home medications restarted, lisinopril d/c, started on Valsartan 80mg -continue telemetry -cardiology consulted -strict Is&Os as well as daily weights -Potassium around 4 and magnesium around 2 Leukocytosis, suspect secondary to cellulitis, resolved Cellulitis of left lower extremity, improving -influenza and COVID negative -continue ceftriaxone 1gr q 24 hours Anemia, suspect of chronic disease -patient on Procrit, at this time we will monitor and transfuse for hemoglobin less than 8 -monitor for any bleeding, follow up with outpatient Hematology LUIS and CKD, likely secondary to prerenal azotemia from decreased renal perfusion, resolved -creatinine on admission 2.1->1.9-> 1.7 -> 1.6 -we will continue to monitor labs -Nephrology consulted Type 2 diabetes, chronic, uncontrolled with A1c done on 04/20 greater than 14 Suspect retinopathy secondary to T2 dm -Continue insulin sliding scale and home dose of basal insulin 45 units q.d. Ambulatory dysfunction, likely multifactorial in the setting of left lower extremity BKA as well as decreased vision -fall precautions Hypomagnesemia Mg Oxide ordered FEN: NI, replete as needed, diabetic with fluid restrictions and low-salt diet GI PPx: Pantoprazole DVT PPX: Heparin Code status: Full code Disposition: All questions and concerns with the patient were answered to satisfaction. All pertinent clinical documents, images and labs were reviewed. Total time managing care of this patient today: 55 minutes. Quality Stroke Does the patient have a stroke diagnosis?: No VTE Prior VTE?: No VTE Risk Level:: Medical - moderate - high VTE Device Contraindication: Treatment Not Indicated VTE Drug Contraindication: N/A - Med Ordered
--- NOTE | 2025-06-14 10:46 | P.CDIM_ITS ---
PROVIDER RESPONSE TEXT: To clarify, the appropriate diagnosis supported by the clinical indicators: No, Cellulitis is not related to / associated with / due to DM2 QUERY TEXT: PHYSICIAN'S DOCUMENTATION REQUEST Date of Query: 06/14/2025 08:14 AM EST Patient Name: Mitra Parish Admit Date: 06/10/2025 Dear Gordo Denson MD, A review of the medical record indicates additional documentation may be needed. Please review below and update the documentation accordingly. Documentation includes the conditions of Cellulitis left lower limb and DM2. Clinical Indicators: IV Ceftriaxone daily Please clarify the relationship between these conditions: Yes, Cellulitis is related to / associated with / due to DM2 No, Cellulitis is not related to / associated with / due to DM2 Other (explain) Clinically unable to determine (explain) Thank you, Stefanie Stern RN Use of terms such as suspected, likely, concern for, or probable (associated with a specific diagnosis that is being evaluated, monitored, or treated as if it exists) are acceptable and can be coded in the inpatient setting, when documented at the time of discharge. Please use your independent medical judgment in providing your response. THIS QUERY IS PART OF THE PERMANENT MEDICAL RECORD
--- NOTE | 2025-06-14 10:46 | P.CDIM_ITS ---
PROVIDER RESPONSE TEXT: To clarify, the appropriate diagnosis supported by the clinical indicators: Obesity Due to excess calories QUERY TEXT: PHYSICIAN'S DOCUMENTATION REQUEST Date of Query: 06/14/2025 08:16 AM EST Patient Name: Mitra Parish Admit Date: 06/10/2025 Dear Gordo Denson MD, A review of the medical record indicates additional documentation may be needed. Please review below and update the documentation accordingly. Clinical Indicators: Height: ( ) 5'2 Weight: ( ) 104.6 kg BMI: ( ) 42.2 Other Clinical Notes Supporting Significance of the BMI: on therapeutic diet If possible, please provide an associated diagnosis related to the abnormal BMI, such as: Overweight Obesity Due to excess calories Obesity Drug induced Obesity Due to other cause Specify the other cause Severe or Morbid Obesity With alveolar hypoventilation Severe or Morbid Obesity Without alveolar hypoventilation BMI is not significant Other (explain) Clinically unable to determine (explain) Thank you, Stefanie Stern RN Use of terms such as suspected, likely, concern for, or probable (associated with a specific diagnosis that is being evaluated, monitored, or treated as if it exists) are acceptable and can be coded in the inpatient setting, when documented at the time of discharge. Please use your independent medical judgment in providing your response. THIS QUERY IS PART OF THE PERMANENT MEDICAL RECORD
[2025-06-14 10:51] LABS: Glucose, Whole Blood 194 mg/dL (60-115)
[2025-06-14 11:03] VITALS: BP 134/69; PULSE 84; RESP 18; TEMP 36.8; O2SAT 95
--- NOTE | 2025-06-14 11:06 | MHC.CM.PN ---
Per [facility], Patient is not yet medically cleared for dc (IV Lasix).
--- NOTE | 2025-06-14 11:59 | PM.PNCARD ---
Subjective Subjective Date of Service: 06/14/25 Principal diagnosis: Decompensated systolic heart failure Interval history: Patient says she is better but continues to have shortness of breath intermittently still has fluid overload. Has diuresed about 4 L or more since admission in his creatinine in his improved. Blood pressure is within normal limits. Review of Systems Constitutional: Reports no additional constitutional complaints Cardiovascular: Reports chest pain at rest, Reports leg edema, Denies lightheadedness, Denies Loss of Consciousness, Reports dyspnea on exertion and Reports orthopnea Respiratory: Reports no additional respiratory complaints and Reports dyspnea on exertion Gastrointestinal: Reports no additional gastrointestinal complaints Genitourinary: Reports no additional female genitourinary complaints Musculoskeletal: Reports no additional musculoskeletal complaints Skin/Breast: Reports system reviewed and no additional complaints, except as docu Allergic/Immunologic: Reports no additional allergic/immunologic complaints Physical Exam Vital Signs: Last Vital Signs Temp 98.3 F 06/14/25 11:03 Pulse 84 06/14/25 11:03 Resp 18 06/14/25 11:03 BP 134/69 06/14/25 11:03 Pulse Ox 95 06/14/25 11:03 O2 Del Method Room Air 06/14/25 11:03 BMI result Body Mass Index 42.2 Const General: cooperative and in distress mild and respiratory Nutritional Appearance: obese Orientation/consciousness: patient oriented x3 Neck Neck: Yes trachea midline, Yes supple and Yes JVD Resp Effort & Inspection: normal respiratory effort Auscultation: crackles Cardio Jugular venous distension: JVD Rate: regular rate Rhythm: regular rhythm Heart sounds: S1 normal heart sound present, S2 normal heart sound present, no click, no gallops and Murmur heart sound present systolic GI Auscultation: normal bowel sounds Skin General skin exam: no rashes or lesions noted Neuro General: patient oriented x3 and no focal motor deficits Extrem General: No clubbing, No cyanosis and Yes edema (Right lower extremity) Objective Labs and Meds 06/13/25 07:29 06/14/25 07:04 Lab results: Laboratory Results - last 24 hr 06/13/25 06/13/25 06/14/25 16:02 20:26 07:04 Hold Purple Top SEE NOTE Sodium 141 Potassium 4.2 Chloride 101 Carbon Dioxide 28 Anion Gap 16 BUN 60 H Creatinine 1.63 H Estim Creat Clear Calc 40.5 Estimated GFR 32 POC Glucose 104 194 H Random Glucose 135 H Calcium 8.9 Magnesium 1.5 L 06/14/25 06/14/25 07:14 10:48 Hold Purple Top Sodium Potassium Chloride Carbon Dioxide Anion Gap BUN Creatinine Estim Creat Clear Calc Estimated GFR POC Glucose 151 H 194 H Random Glucose Calcium Magnesium Progress Note: A&P Assessment and plan (1) Acute on chronic combined systolic and diastolic CHF (congestive heart failure): Status: Acute Assessment and Plan: Acute decompensated systolic heart failure in this middle-aged woman with high likelihood of underlying significant obstructive coronary artery disease based on a stress test as well as wall motion abnormality. Clinically still significantly fluid overloaded. Her creatinine has improved diuresis suggestive of cardiorenal syndrome. Continue IV diuresis. She has not still adequately optimized. I would also switch her lisinopril to valsartan with eventually plan to transition her to Entresto. Kidney functions have stabilized and I think she will improve with further diuresis. Also add Jardiance 10 mg to regimen and switch her Lasix to a drip at 5 mg an hour. Strict intake and output chart needs to be pursued. Continue monitor electrolytes. Please check BNP tomorrow. She will eventually need cardiac catheterization to further evaluate coronary anatomy as this may impact her future prognosis. If she is adequately optimized may consider inpatient cardiac catheterization and transfer. Will follow with you Time Spent With Patient Time: Total time managing care of this patient today ____ minutes. Progress Note: Quality Stroke Does the patient have a stroke diagnosis?: No Procedures Date of Service Date of Service: 06/14/25
[2025-06-14] MEDS: Furosemide 200 MG in 0.9 % Sodium Chloride 80 ML IVCONT (12:11)
[2025-06-14 15:35] VITALS: BP 116/60; PULSE 78; RESP 20; TEMP 36.7; O2SAT 97
[2025-06-14 16:09] LABS: Glucose, Whole Blood 97 mg/dL (60-115)
[2025-06-14 19:12] VITALS: BP 98/55; PULSE 76; RESP 20; TEMP 36.6; O2SAT 94
[2025-06-14 20:17] LABS: Glucose, Whole Blood 57 mg/dL (60-115)
[2025-06-14 20:36] LABS: Glucose, Whole Blood 126 mg/dL (60-115)
--- NOTE | 2025-06-14 20:40 | P.PNNP_ITS ---
Subjective Subjective Date of Service: 06/14/25 Principal diagnosis: CHF Interval history: Seen and examined,e vents noted Physical Exam 2 Vital Signs: Vital Signs: Last Vital Signs Temp 97.9 F 06/14/25 19:12 Pulse 76 06/14/25 19:12 Resp 20 06/14/25 19:12 BP 98/55 L 06/14/25 19:12 Pulse Ox 94 06/14/25 19:12 O2 Del Method Room Air 06/14/25 19:12 BMI result Body Mass Index 42.2 Const: General: cooperative, comfortable, no acute distress and in distress mild and respiratory Nutritional Appearance: obese O rientation/consciousness: patient oriented x3 Limitations: no limitations HEENT: Other: Unremarkable Head: Yes normal to inspection, Yes normocephalic and Yes atraumatic E ars: hearing grossly normal bilaterally General nose exam: Normal external nose present Face and sinus: Yes normal facial exam Mouth: Normal oral and palatal mucosa present, oropharynx normal and moist mucous membranes Throat: Yes posterior oropharynx normal Eyes: General: appearance normal, both eyes and all related structures E yelids: Yes eyelids normal Conjunctivae: conjunctivae normal Sclerae: s clerae normal Pupils: Equal, round and reactive pupils present EOM: EOMs intact bilaterally Neck: Neck: Yes normal visual inspection, Yes full ROM, Yes no lymphadenopathy, Yes trachea midline, Yes supple and Yes JVD Lymphatic: no lymphadenopathy noted Chest: Other: Bilateral breasts appear with pitting edema noted, no nipple discharge, no overlying erythema Chest palpation & inspection: normal inspection of the chest Resp: Other: Fine inspiratory crackles Effort & Inspection: normal respiratory effort and able to speak in complete sentences Auscultation: clear to auscultation bilaterally, crackles, no rales, no rhonchi and no wheezes Cardio: Jugular venous distension: JVD Palpation: normal PMI Rate: r egular rate Rhythm: regular rhythm Heart sounds: S1 normal heart sound present, S2 normal heart sound present, no click, no gallops, Murmur heart sound present systolic and no rubs GI: Other: Abdomen soft however with tenderness palpation throughout, edema noted. Inspection: Yes normal to inspection Palpation (GI): Soft to palpation Auscultation: normal bowel sounds Back/Spine/Pelvis: Other: unremarkable Skin: Other: Bilateral hands are dry, with superficial excoriations noted throughout. No surrounding erythema. General skin exam: no rashes or lesions noted Trauma: no lacerations or abrasions Wounds: no wounds Neuro: General: patient oriented x3, moves all extremities and no focal motor deficits Cranial nerves: Yes Equal, round and reactive pupils present Extrem: Other: L BKA. General: Yes normal to inspection, No clubbing, No cyanosis and Yes edema (Right lower extremity) Right upper extremity: normal to inspection Left upper extremity: normal to inspection Right lower extremity: normal to inspection Left lower extremity: normal to inspection Psych: Mental Status: mental status grossly normal Objective Data Labs 06/13/25 07:29 06/14/25 07:04 Labs: Laboratory Results - last 24 hr 06/14/25 06/14/25 06/14/25 07:04 07:14 10:48 Hold Purple Top SEE NOTE Sodium 141 Potassium 4.2 Chloride 101 Carbon Dioxide 28 Anion Gap 16 BUN 60 H Creatinine 1.63 H Estim Creat Clear Calc 40.5 Estimated GFR 32 POC Glucose 151 H 194 H Random Glucose 135 H Calcium 8.9 Magnesium 1.5 L NT-Pro-B Natriuret Pep 06/14/25 06/14/25 06/14/25 11:48 16:05 20:10 Hold Purple Top Sodium Potassium Chloride Carbon Dioxide Anion Gap BUN Creatinine Estim Creat Clear Calc Estimated GFR POC Glucose 97 57 L* Random Glucose Calcium Magnesium NT-Pro-B Natriuret Pep 25205.9 H 06/14/25 20:33 Hold Purple Top Sodium Potassium Chloride Carbon Dioxide Anion Gap BUN Creatinine Estim Creat Clear Calc Estimated GFR POC Glucose 126 H Random Glucose Calcium Magnesium NT-Pro-B Natriuret Pep Procedures Date of Service Date of Service: 06/14/25 Assessment & Plan Assessment and plan (1) CHF (congestive heart failure): Status: Acute (2) CKD (chronic kidney disease): Status: Acute Plan 60Y/O F CKD 4 DM/HTN ANEMIC PROTEINURIC HYPERVOL PATEINT 1. LUIS: decr Scr with diuresis c/w CRsyn and with decongstion improved renal func 2. 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 Hypervol: respondng to diruesis 4. Heavy Uprot: tpcr 5.6 gm and macr of 3gm in 5. Anemia: cont f/u with HEME with IV Fe and EPO 6. Metabolic Bone Disease of CKD: cont to track CA, Phos, HCO3, PTH and vit D levels and treat accordingly PLAN: cont diuresis and track renal func, Mg suppl If undergoes CCAth then will need pre and post Ccath IV fludis to decr LUIS risk form dye and limit dye volume Will follow w team Time Spent With Patient Time: Total time managing care of this patient today ____ minutes. Progress Note: Quality Stroke Does the patient have a stroke diagnosis?: No
[2025-06-14 20:51] LABS: Glucose, Whole Blood 117 mg/dL (60-115)
[2025-06-15] VITALS (9 sets, daily range): BP systolic 110–143; BP diastolic 60–78; PULSE 76–92; RESP 16–20; TEMP 36.4–37; O2SAT 92–98; BMI 36.8; BMI 42.8
[2025-06-15 07:26] LABS: Glucose, Whole Blood 90 mg/dL (60-115)
[2025-06-15 07:56] LABS: Anion Gap 16 (12-20); Blood Urea Nitrogen 66 mg/dL (9-16); Calcium 9.1 mg/dL (8.4-10.2); Carbon Dioxide 31 mmol/L (22-29); Chloride 100 mmol/L (96-108); Creatinine Clr Calc Pharmacy 35.4; Estimated Glomerular Filt Rate 30; Magnesium 1.8 mg/dL (1.6-2.6); Potassium 4.3 mmol/L (3.3-5.1); Sodium 143 mmol/L (135-145)
[2025-06-15] MEDS: Metoprolol Succinate ER 100 MG TAB.ER.24H PO (08:04)
[2025-06-15] MEDS: Aspirin Enteric Coated 81 MG TABLET.DR PO (08:04)
[2025-06-15] MEDS: 0.9 % Sodium Chloride Flush 3 ML SYRINGE IVFLUSH ×2 (08:09→22:12)
[2025-06-15 10:55] LABS: Glucose, Whole Blood 162 mg/dL (60-115)
--- NOTE | 2025-06-15 10:55 | P.PNCA_ITS ---
Subjective Subjective Date of Service: 06/15/25 Principal diagnosis: CHF Interval history: Patient says she feels a whole lot better. She does have reproducible pain inframammary on the left side. No significant ischemic sounding chest discomfort. Says her leg edema has improved although breathing has improved significantly. Review of Systems Constitutional: Reports weakness Eyes: Reports no additional eye complaints Cardiovascular: Reports chest pain at rest (Reproducible), Reports leg edema (Improved), Denies palpitations and Reports dyspnea (Improved) Respiratory: Reports dyspnea (Improved) Gastrointestinal: Reports no additional gastrointestinal complaints Genitourinary: Reports no additional female genitourinary complaints Reports weakness Psychiatric: Reports no additional psychiatric complaints Endocrine: Denies palpitations Physical Exam Vital Signs: Last Vital Signs Temp 97.9 F 06/15/25 10:46 Pulse 76 06/15/25 10:46 Resp 16 06/15/25 10:46 BP 143/78 H 06/15/25 10:46 Pulse Ox 98 06/15/25 10:46 O2 Del Method Room Air 06/15/25 10:46 BMI result Body Mass Index 36.8 Const General: cooperative and in distress mild and respiratory Nutritional Appearance: obese Orientation/consciousness: patient oriented x3 Neck Neck: Yes trachea midline, Yes supple and Yes JVD Resp Effort & Inspection: normal respiratory effort Auscultation: diminished lung sounds Cardio Jugular venous distension: JVD Rate: regular rate Rhythm: regular rhythm Heart sounds: S1 normal heart sound present, S2 normal heart sound present, no click, no gallops and Murmur heart sound present systolic GI Auscultation: normal bowel sounds Skin General skin exam: no rashes or lesions noted Neuro General: patient oriented x3 and no focal motor deficits Extrem General: No clubbing, No cyanosis and Yes edema (Right lower extremity) Objective Labs and Meds 06/13/25 07:29 06/15/25 07:13 Lab results: Laboratory Results - last 24 hr 06/14/25 06/14/25 06/14/25 11:48 16:05 20:10 Hold Purple Top Sodium Potassium Chloride Carbon Dioxide Anion Gap BUN Creatinine Estim Creat Clear Calc Estimated GFR POC Glucose 97 57 L* Random Glucose Calcium Magnesium NT-Pro-B Natriuret Pep 76642.9 H 06/14/25 06/14/25 06/15/25 20:33 20:46 07:13 Hold Purple Top SEE NOTE Sodium 143 Potassium 4.3 Chloride 100 Carbon Dioxide 31 H Anion Gap 16 BUN 66 H Creatinine 1.73 H Estim Creat Clear Calc 35.4 Estimated GFR 30 POC Glucose 126 H 117 H Random Glucose 72 Calcium 9.1 Magnesium 1.8 NT-Pro-B Natriuret Pep 06/15/25 06/15/25 07:22 10:48 Hold Purple Top Sodium Potassium Chloride Carbon Dioxide Anion Gap BUN Creatinine Estim Creat Clear Calc Estimated GFR POC Glucose 90 162 H Random Glucose Calcium Magnesium NT-Pro-B Natriuret Pep Progress Note: A&P Assessment and plan (1) Acute on chronic combined systolic and diastolic CHF (congestive heart failure): Status: Acute Assessment and Plan: Acute decompensated congestive heart failure with systolic dysfunction with high likelihood of underlying multivessel coronary artery disease. Clinically improving with diuresis. Continue IV Lasix drip. Switch to valsartan which should be on b.i.d. dosing. Agree with Jardiance. Continue metoprolol therapy. Clinically improving. Creatinine has remained stable. Continue monitor renal function regularly. Continue monitor electrolytes. Clinically continues to improve by tomorrow should consider transferred to [facility] for cardiac catheterization day after tomorrow once better optimized. Discussed with the need for cardiac catheterization and given her social issues best done as inpatient to further determine therapeutic approach. If she has significant coronary disease may require surgical revascularization this was discussed with her. Risk of contrast induced nephropathy and other risks were discussed with her. She understands and agrees and have called [facility] for transfer hopefully tomorrow. Will follow with you Time Spent With Patient Time: Total time managing care of this patient today ____ minutes. Progress Note: Quality Stroke Does the patient have a stroke diagnosis?: No Procedures Date of Service Date of Service: 06/15/25
[2025-06-15] MEDS: Furosemide 200 MG in 0.9 % Sodium Chloride 80 ML IVCONT (11:07)
--- NOTE | 2025-06-15 14:48 | HO.PM.IMPN ---
Subjective Subjective Date of Service: 06/15/25 Interval History: Patient seen and examined at bedside this morning, patient continues on IV Lasix drip, mentions that she has been feeling better, now able to sit up from bed. Work with physical therapy earlier today. Review of Systems Review of Systems: Yes all other systems are reviewed and are negative Physical Exam Exam: Exam: General: AxOx3, No acute distress, decreased vision Head: AT/NC ENT: Moist mucous membranes Neck: supple CVS; RRR Lungs: Bilateral rales, improved Abd: Soft non tender, non distended Ext: No edema and no calf tenderness MSK: left BKA Skin: erythema of BKA, anasarca with sacral edema, bilateral hands with wounds, improving Psych: Cooperative with exam Neurology: no focal deficit Vital Signs: Vital Signs: Last Vital Signs Temp 97.9 F 06/15/25 10:46 Pulse 76 06/15/25 10:46 Resp 16 06/15/25 10:46 BP 143/78 H 06/15/25 10:46 Pulse Ox 98 06/15/25 10:46 O2 Del Method Room Air 06/15/25 10:46 BMI result Body Mass Index 36.8 Objective Data Active Medications Acetaminophen (Acetaminophen 325 Mg Tablet) 650 mg PO Q6H PRN PRN Reason: Pain, Mild 1-3,fever,headache Amitriptyline HCl (Amitriptyline Hcl 25 Mg Tablet) 25 mg PO BEDTIME [facility] Last Admin: 06/14/25 20:20 Dose: 25 mg Documented By: NANO Aspirin (Aspirin Enteric Coated 81 Mg Tablet.Dr) 81 mg PO DAILY [facility] Last Admin: 06/15/25 08:04 Dose: 81 mg Documented By: CARIDAD Calcium Carbonate (Calcium Carbonate 750 Mg Tab.Chew) 750 mg PO Q4H PRN PRN Reason: Heartburn Dextrose (Dextrose 50 % 25 Gm/50 Ml Syringe) 25 gm IVPUSH Q15M PRN; Protocol PRN Reason: per Hypoglycemia Standing Ord. Ezetimibe (Ezetimibe 10 Mg Tablet) 10 mg PO DAILY [facility] Last Admin: 06/15/25 08:05 Dose: 10 mg Documented By: CARIDAD Empagliflozin (Empagliflozin 10 Mg Tablet) 10 mg PO DAILY [facility] Last Admin: 06/15/25 08:04 Dose: 10 mg Documented By: CARIDAD Glucose (Glucose Gel 15 Gm Gel..Gram.) 15 gm PO Q15M PRN; Protocol PRN Reason: per Hypoglycemia Standing Ord. Heparin Sodium (Porcine) (Heparin Sodium,Porcine 5,000 Unit/Ml Vial) 5,000 unit SUBCUT Q12H [facility] Last Admin: 06/15/25 04:39 Dose: 5,000 unit Documented By: NANO Ceftriaxone Sodium 1 gm/ (Sodium Chloride) 50 mls @ 100 mls/hr IV DAILY [facility] Last Infusion: 06/15/25 08:37 Dose: Infused Documented By: CARIDAD Furosemide 200 mg/ Sodium (Chloride) 100 mls @ 2.5 mls/hr IVCONT .Q24H [facility] Last Admin: 06/15/25 11:07 Dose: 5 mg/hr, 2.5 mls/hr Documented By: CARIDAD Insulin Glargine (Insulin Glargine,Hum.Rec.Anlog 100 Unit/Ml 10 Ml Vial) 45 unit SUBCUT DAILY [facility] Last Admin: 06/15/25 08:07 Dose: Not Given Documented By: CARIDAD Non-Admin Reason: Physician Held Med Insulin Human Lispro (Insulin Lispro 100 Unit/Ml 3 Ml Vial) 0 unit SUBCUT QIDACHS [facility]; Protocol Last Admin: 06/15/25 11:08 Dose: 2 unit Documented By: CARIDAD Isosorbide Mononitrate (Isosorbide Mononitrate 60 Mg Tab.Er.24h) 60 mg PO DAILY [facility]; Protocol Last Admin: 06/15/25 08:05 Dose: 60 mg Documented By: CARIDAD Magnesium Hydroxide (Milk Of Magnesia 30 Ml Oral.Susp) 30 ml PO DAILY PRN PRN Reason: Constipation Magnesium Oxide (Magnesium Oxide 400 Mg Tablet) 400 mg PO TID [facility] Last Admin: 06/15/25 08:05 Dose: 400 mg Documented By: CARIDAD Melatonin (Melatonin 3 Mg Tablet) 6 mg PO BEDTIME PRN PRN Reason: Insomnia Metoprolol Succinate (Metoprolol Succinate Er 100 Mg Tab.Er.24h) 100 mg PO DAILY [facility]; Protocol Last Admin: 06/15/25 08:04 Dose: 100 mg Documented By: CARIDAD Morphine Sulfate (Morphine Sulfate 4 Mg/Ml Cartridge) 1 mg IVPUSH Q6H PRN; Protocol PRN Reason: Pain, Severe (Pain Scale 7-10) Sodium Chloride (0.9 % Sodium Chloride Flush 3 Ml Syringe) 3 ml IVFLUSH QSHIFT [facility] Last Admin: 06/15/25 08:09 Dose: 3 ml Documented By: CARIDAD Valsartan (Valsartan 80 Mg Tablet) 80 mg PO BID [facility]; Protocol Vitamin D (Cholecalciferol (Vitamin D3) 25 Mcg Tablet) 25 mcg PO DAILY [facility] Last Admin: 06/15/25 08:05 Dose: 25 mcg Documented By: CARIDAD Labs 06/13/25 07:29 06/15/25 07:13 Labs: Laboratory Results - last 24 hr 06/14/25 06/14/25 06/14/25 16:05 20:10 20:33 Hold Purple Top Anion Gap Estim Creat Clear Calc Estimated GFR POC Glucose 97 57 L* 126 H Random Glucose Calcium Magnesium 06/14/25 06/15/25 06/15/25 20:46 07:13 07:22 Hold Purple Top SEE NOTE Anion Gap 16 Estim Creat Clear Calc 35.4 Estimated GFR 30 POC Glucose 117 H 90 Random Glucose 72 Calcium 9.1 Magnesium 1.8 06/15/25 10:48 Hold Purple Top Anion Gap Estim Creat Clear Calc Estimated GFR POC Glucose 162 H Random Glucose Calcium Magnesium Assessment and Plan (1) CHF (congestive heart failure): Status: Acute (2) LUIS (acute kidney injury): Status: Acute Plan Assessment: 60-year-old female who presented to hospital complaining of worsening shortness of breath, found to have [place] [address] on physical exam with anasarca. started on IV Lasix 100mg BID on admission, continued to be fluid overloaded required to be placed on IV Lasix drip on 06/14 CHF exacerbation, improving HFrEF with TTE on 01/24/2025 EF of 25% Hypertension, chronic PAD s/p Left BKA -pro BNP 25k->22k, TSH 1.35 -chest CT with biliary and pleural effusions, cardiomegaly and pulmonary edema -TTE EF of 24% with severely decreased systolic function, akinesis of inferoseptal wall, basal inferior, basal anteroseptal and mid anteroseptal segment, small pericardial effusion -Continue Lasix Drip -Continue ASA, home medications, Valsartan 80mg BID -continue telemetry -cardiology consulted -strict Is&Os as well as daily weights -Potassium around 4 and magnesium around 2 Leukocytosis, suspect secondary to cellulitis, resolved Cellulitis of left lower extremity, improving -influenza and COVID negative -continue ceftriaxone 1gr q 24 hours Anemia, suspect of chronic disease -patient on Procrit, at this time we will monitor and transfuse for hemoglobin less than 8 -monitor for any bleeding, follow up with outpatient Hematology LUIS and CKD, likely secondary to prerenal azotemia from decreased renal perfusion, resolved -creatinine on admission 2.1->1.9-> 1.7 -> 1.6 -> 1.7 -we will continue to monitor labs -Nephrology consulted Type 2 diabetes, chronic, uncontrolled with A1c done on 04/20 greater than 14 Suspect retinopathy secondary to T2 dm -Continue insulin sliding scale and home dose of basal insulin 45 units q.d. Ambulatory dysfunction, likely multifactorial in the setting of left lower extremity BKA as well as decreased vision -fall precautions Hypomagnesemia Mg Oxide FEN: NI, replete as needed, diabetic with fluid restrictions and low-salt diet GI PPx: Pantoprazole DVT PPX: Heparin Code status: Full code Disposition: All questions and concerns with the patient were answered to satisfaction. All pertinent clinical documents, images and labs were reviewed. Total time managing care of this patient today: 55 minutes. Quality Stroke Does the patient have a stroke diagnosis?: No VTE Prior VTE?: No VTE Risk Level:: Medical - moderate - high VTE Device Contraindication: Treatment Not Indicated VTE Drug Contraindication: N/A - Med Ordered
[2025-06-15 15:53] LABS: Glucose, Whole Blood 185 mg/dL (60-115)
--- NOTE | 2025-06-15 20:10 | P.PNNP_ITS ---
Subjective Subjective Date of Service: 06/15/25 Principal diagnosis: LUIS on CKD and Hypervol Interval history: Seen and examiend,e vents noted Physical Exam 2 Vital Signs: Vital Signs: Last Vital Signs Temp 98 F 06/15/25 19:59 Pulse 92 06/15/25 19:59 Resp 20 06/15/25 19:59 BP 141/76 H 06/15/25 19:59 Pulse Ox 97 06/15/25 19:59 O2 Del Method Room Air 06/15/25 19:59 BMI result Body Mass Index 36.8 Const: General: cooperative, comfortable, no acute distress and in distress mild and respiratory Nutritional Appearance: obese O rientation/consciousness: patient oriented x3 Limitations: no limitations HEENT: Other: Unremarkable Head: Yes normal to inspection, Yes normocephalic and Yes atraumatic E ars: hearing grossly normal bilaterally General nose exam: Normal external nose present Face and sinus: Yes normal facial exam Mouth: Normal oral and palatal mucosa present, oropharynx normal and moist mucous membranes Throat: Yes posterior oropharynx normal Eyes: General: appearance normal, both eyes and all related structures E yelids: Yes eyelids normal Conjunctivae: conjunctivae normal Sclerae: s clerae normal Pupils: Equal, round and reactive pupils present EOM: EOMs intact bilaterally Neck: Neck: Yes normal visual inspection, Yes full ROM, Yes no lymphadenopathy, Yes trachea midline, Yes supple and Yes JVD Lymphatic: no lymphadenopathy noted Chest: Other: Bilateral breasts appear with pitting edema noted, no nipple discharge, no overlying erythema Chest palpation & inspection: normal inspection of the chest Resp: Other: Fine inspiratory crackles Effort & Inspection: normal respiratory effort and able to speak in complete sentences Auscultation: clear to auscultation bilaterally, crackles, no rales, no rhonchi and no wheezes Cardio: Jugular venous distension: JVD Palpation: normal PMI Rate: r egular rate Rhythm: regular rhythm Heart sounds: S1 normal heart sound present, S2 normal heart sound present, no click, no gallops, Murmur heart sound present systolic and no rubs GI: Other: Abdomen soft however with tenderness palpation throughout, edema noted. Inspection: Yes normal to inspection Palpation (GI): Soft to palpation Auscultation: normal bowel sounds Back/Spine/Pelvis: Other: unremarkable Skin: Other: Bilateral hands are dry, with superficial excoriations noted throughout. No surrounding erythema. General skin exam: no rashes or lesions noted Trauma: no lacerations or abrasions Wounds: no wounds Neuro: General: patient oriented x3, moves all extremities and no focal motor deficits Cranial nerves: Yes Equal, round and reactive pupils present Extrem: Other: L BKA. General: Yes normal to inspection, No clubbing, No cyanosis and Yes edema (Right lower extremity) Right upper extremity: normal to inspection Left upper extremity: normal to inspection Right lower extremity: normal to inspection Left lower extremity: normal to inspection Psych: Mental Status: mental status grossly normal Objective Data Labs 06/13/25 07:29 06/15/25 07:13 Labs: Laboratory Results - last 24 hr 06/14/25 06/14/25 06/14/25 20:10 20:33 20:46 Hold Purple Top Sodium Potassium Chloride Carbon Dioxide Anion Gap BUN Creatinine Estim Creat Clear Calc Estimated GFR POC Glucose 57 L* 126 H 117 H Random Glucose Calcium Magnesium 06/15/25 06/15/25 06/15/25 07:13 07:22 10:48 Hold Purple Top SEE NOTE Sodium 143 Potassium 4.3 Chloride 100 Carbon Dioxide 31 H Anion Gap 16 BUN 66 H Creatinine 1.73 H Estim Creat Clear Calc 35.4 Estimated GFR 30 POC Glucose 90 162 H Random Glucose 72 Calcium 9.1 Magnesium 1.8 06/15/25 15:49 Hold Purple Top Sodium Potassium Chloride Carbon Dioxide Anion Gap BUN Creatinine Estim Creat Clear Calc Estimated GFR POC Glucose 185 H Random Glucose Calcium Magnesium Procedures Date of Service Date of Service: 06/15/25 Assessment & Plan Assessment and plan (1) CHF (congestive heart failure): Status: Acute (2) CKD (chronic kidney disease): Status: Acute Plan 60Y/O F CKD 4 DM/HTN ANEMIC PROTEINURIC HYPERVOL PATEINT Overall doing better but still feels hypervol 1. LUIS: decr Scr with diuresis c/w CRsyn and with decongstion improved renal func 2. 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 Hypervol: respondng to diruesis 4. Heavy Uprot: tpcr 5.6 gm and macr of 3gm in 5. Anemia: cont f/u with HEME with IV Fe and EPO 6. Metabolic Bone Disease of CKD: cont to track CA, Phos, HCO3, PTH and vit D levels and treat accordingly PLAN: cont IV diuresis and track renal func, Mg suppl If undergoes CCAth then will need pre and post Ccath IV fludis to decr LUIS risk form dye and limit dye volume Will follow w team Time Spent With Patient Time: Total time managing care of this patient today ____ minutes. Progress Note: Quality Stroke Does the patient have a stroke diagnosis?: No
[2025-06-15 20:31] LABS: Glucose, Whole Blood 262 mg/dL (60-115)
[2025-06-16 03:08] VITALS: BP 119/62; PULSE 82; RESP 18; TEMP 36.8; O2SAT 92
[2025-06-16 05:44] VITALS: BMI 39.7
[2025-06-16 06:56] VITALS: BP 134/67; PULSE 77; RESP 16; TEMP 36.4; O2SAT 94
[2025-06-16 07:10] LABS: Glucose, Whole Blood 140 mg/dL (60-115)
[2025-06-16 08:20] VITALS: BP 134/67
[2025-06-16] MEDS: Metoprolol Succinate ER 100 MG TAB.ER.24H PO (08:20)
[2025-06-16] MEDS: Insulin Glargine,Hum.rec.anlog 100 UNIT/ML 10 ML VIAL 45 UNIT SUBCUT (08:21)
[2025-06-16] MEDS: Aspirin Enteric Coated 81 MG TABLET.DR PO (08:21)
[2025-06-16] MEDS: 0.9 % Sodium Chloride Flush 3 ML SYRINGE IVFLUSH (08:22)
[2025-06-16] MEDS: Milk of Magnesia 30 ML ORAL.SUSP PO (08:31)
--- NOTE | 2025-06-16 10:17 | PM.PNCARD ---
Subjective Subjective Date of Service: 06/16/25 Principal diagnosis: Decompensated congestive heart failure with ischemic cardiomyopathy Interval history: Patient feeling a lot better. No significant shortness of breath or chest pain. Complains of abdominal pain which is currently being investigated. Her renal function done today. Tolerating the change in medications. Blood pressure has been stable. Noted some arrhythmias few days ago with nonsustained VT which is not unexpected. Patient waiting for bed at [facility] Review of Systems Constitutional: Reports no additional constitutional complaints Cardiovascular: Denies chest pain, Denies rapid heart rate, Reports leg edema, Denies palpitations and Reports dyspnea on exertion Respiratory: Denies cough and Reports dyspnea on exertion Gastrointestinal: Reports abdominal pain Musculoskeletal: Reports no additional musculoskeletal complaints Skin/Breast: Reports system reviewed and no additional complaints, except as docu Endocrine: Denies palpitations Physical Exam Vital Signs: Last Vital Signs Temp 97.6 F 06/16/25 06:56 Pulse 77 06/16/25 06:56 Resp 16 06/16/25 06:56 BP 134/67 06/16/25 08:20 Pulse Ox 94 06/16/25 06:56 O2 Del Method Room Air 06/16/25 06:56 BMI result Body Mass Index 39.7 Const General: cooperative and in distress mild and respiratory Nutritional Appearance: obese Orientation/consciousness: patient oriented x3 Neck Neck: Yes trachea midline, Yes supple and Yes JVD Resp Effort & Inspection: normal respiratory effort Auscultation: diminished lung sounds Cardio Jugular venous distension: JVD Rate: regular rate Rhythm: regular rhythm Heart sounds: S1 normal heart sound present, S2 normal heart sound present, no click, no gallops and Murmur heart sound present systolic GI Auscultation: normal bowel sounds Skin General skin exam: no rashes or lesions noted Neuro General: patient oriented x3 and no focal motor deficits Extrem General: No clubbing, No cyanosis and Yes edema (Right lower extremity) Objective Labs and Meds 06/13/25 07:29 06/15/25 07:13 Lab results: Laboratory Results - last 24 hr 06/15/25 06/15/25 06/15/25 10:48 15:49 20:27 POC Glucose 162 H 185 H 262 H 06/16/25 07:03 POC Glucose 140 H Progress Note: A&P Assessment and plan (1) Acute on chronic combined systolic and diastolic CHF (congestive heart failure): Status: Acute Assessment and Plan: Decompensated congestive heart failure with underlying ischemic cardiomyopathy severe LV systolic dysfunction with high likelihood of underlying multivessel coronary artery disease. Needs cardiac catheterization. Has been diuresed. Complaining of abdominal pain which is under investigation. She has multiple comorbidities including kidney disease in his risk of contrast induced nephropathy. Discussed with her. However need for cardiac catheterization was discussed in details. Important information that can guide future therapy was discussed. She is not sure but then eventually agreed. Awaiting for bed for transfer to [facility]. Continue current medical therapy. Continue IV diuresis. Strict intake and output chart needs to be pursued. Continue monitor electrolytes. Overall prognosis guarded. Will follow with her after cardiac catheterization as outpatient. Time Spent With Patient Time: Total time managing care of this patient today ____ minutes. Progress Note: Quality Stroke Does the patient have a stroke diagnosis?: No Procedures Date of Service Date of Service: 06/16/25
--- NOTE | 2025-06-16 10:37 | MHC.CM.PN ---
Per ROUNDS, Patient is not yet medically cleared for dc (Lasix Drip & abdominal pain).
[2025-06-16 11:03] VITALS: BP 134/66; PULSE 79; RESP 16; TEMP 36.6; O2SAT 97
[2025-06-16 11:13] LABS: Glucose, Whole Blood 193 mg/dL (60-115)
[2025-06-16] MEDS: Furosemide 200 MG in 0.9 % Sodium Chloride 80 ML IVCONT (11:14)
--- NOTE | 2025-06-16 11:28 | P.PNIM_ITS ---
Subjective Subjective Date of Service: 06/16/25 Interval History: c/o some abd pain, no sob, remains on lasix drip, she has agreed to cardiac cath and will go to [facility] when bed available Review of Systems Review of Systems: Yes all other systems are reviewed and are negative Physical Exam 2 Exam: Exam: General: AxOx3, No acute distress, decreased vision Head: AT/NC ENT: Moist mucous membranes Neck: supple CVS; RRR Lungs: Bilateral rales, improved Abd: Soft non tender, non distended Ext: No edema and no calf tenderness MSK: left BKA Skin: erythema of BKA, anasarca with sacral edema, bilateral hands with wounds, improving Psych: Cooperative with exam Neurology: no focal deficit Vital Signs: Vital Signs: Last Vital Signs Temp 97.9 F 06/16/25 11:03 Pulse 79 06/16/25 11:03 Resp 16 06/16/25 11:03 BP 134/66 06/16/25 11:03 Pulse Ox 97 06/16/25 11:03 O2 Del Method Room Air 06/16/25 11:03 BMI result Body Mass Index 39.7 Const: Other: General: AO X 3, no acute distress Resp: CTA bilateral CVS: S1,S2,RRR GI: +BS, NT, no distention, hardening around umbilic, Skin: No rash Neuro: motor grossly intact Psych: appropriate affect Objective Data Active Medications Acetaminophen (Acetaminophen 325 Mg Tablet) 650 mg PO Q6H PRN PRN Reason: Pain, Mild 1-3,fever,headache Amitriptyline HCl (Amitriptyline Hcl 25 Mg Tablet) 25 mg PO BEDTIME [facility] Last Admin: 06/15/25 22:12 Dose: 25 mg Documented By: MCKENZIE Aspirin (Aspirin Enteric Coated 81 Mg Tablet.Dr) 81 mg PO DAILY [facility] Last Admin: 06/16/25 08:21 Dose: 81 mg Documented By: CARIDAD Calcium Carbonate (Calcium Carbonate 750 Mg Tab.Chew) 750 mg PO Q4H PRN PRN Reason: Heartburn Dextrose (Dextrose 50 % 25 Gm/50 Ml Syringe) 25 gm IVPUSH Q15M PRN; Protocol PRN Reason: per Hypoglycemia Standing Ord. Ezetimibe (Ezetimibe 10 Mg Tablet) 10 mg PO DAILY [facility] Last Admin: 06/16/25 08:20 Dose: 10 mg Documented By: CARIDAD Empagliflozin (Empagliflozin 10 Mg Tablet) 10 mg PO DAILY [facility] Last Admin: 06/16/25 08:20 Dose: 10 mg Documented By: CARIDAD Glucose (Glucose Gel 15 Gm Gel..Gram.) 15 gm PO Q15M PRN; Protocol PRN Reason: per Hypoglycemia Standing Ord. Heparin Sodium (Porcine) (Heparin Sodium,Porcine 5,000 Unit/Ml Vial) 5,000 unit SUBCUT Q12H [facility] Last Admin: 06/16/25 06:29 Dose: 5,000 unit Documented By: MCKENZIE Ceftriaxone Sodium 1 gm/ (Sodium Chloride) 50 mls @ 100 mls/hr IV DAILY [facility] Last Infusion: 06/16/25 08:52 Dose: Infused Documented By: CARIDAD Furosemide 200 mg/ Sodium (Chloride) 100 mls @ 2.5 mls/hr IVCONT .Q24H [facility] Last Admin: 06/16/25 11:14 Dose: 5 mg/hr, 2.5 mls/hr Documented By: CARIDAD Insulin Glargine (Insulin Glargine,Hum.Rec.Anlog 100 Unit/Ml 10 Ml Vial) 45 unit SUBCUT DAILY [facility] Last Admin: 06/16/25 08:21 Dose: 20 unit Documented By: CARIDAD Comments: per Dr. Hernandez order 20 units to be given Insulin Human Lispro (Insulin Lispro 100 Unit/Ml 3 Ml Vial) 0 unit SUBCUT QIDACHS [facility]; Protocol Last Admin: 06/16/25 11:15 Dose: 2 unit Documented By: CARIDAD Isosorbide Mononitrate (Isosorbide Mononitrate 60 Mg Tab.Er.24h) 60 mg PO DAILY [facility]; Protocol Last Admin: 06/16/25 08:20 Dose: 60 mg Documented By: CARIDAD Magnesium Hydroxide (Milk Of Magnesia 30 Ml Oral.Susp) 30 ml PO DAILY PRN PRN Reason: Constipation Last Admin: 06/16/25 08:31 Dose: 30 ml Documented By: CARIDAD Magnesium Oxide (Magnesium Oxide 400 Mg Tablet) 400 mg PO TID [facility] Last Admin: 06/16/25 08:21 Dose: 400 mg Documented By: CARIDAD Melatonin (Melatonin 3 Mg Tablet) 6 mg PO BEDTIME PRN PRN Reason: Insomnia Metoprolol Succinate (Metoprolol Succinate Er 100 Mg Tab.Er.24h) 100 mg PO DAILY [facility]; Protocol Last Admin: 06/16/25 08:20 Dose: 100 mg Documented By: CARIDAD Sodium Chloride (0.9 % Sodium Chloride Flush 3 Ml Syringe) 3 ml IVFLUSH QSHIFT [facility] Last Admin: 06/16/25 08:22 Dose: 3 ml Documented By: CARIDAD Valsartan (Valsartan 80 Mg Tablet) 80 mg PO BID [facility]; Protocol Last Admin: 06/16/25 08:20 Dose: 80 mg Documented By: CARIDAD Vitamin D (Cholecalciferol (Vitamin D3) 25 Mcg Tablet) 25 mcg PO DAILY [facility] Last Admin: 06/16/25 08:21 Dose: 25 mcg Documented By: CARIDAD Labs 06/13/25 07:29 06/15/25 07:13 Labs: Laboratory Results - last 24 hr 06/15/25 06/15/25 06/16/25 15:49 20:27 07:03 POC Glucose 185 H 262 H 140 H 06/16/25 11:05 POC Glucose 193 H Assessment and Plan (1) CHF (congestive heart failure): Status: Acute (2) LUIS (acute kidney injury): Status: Acute Plan Assessment: 60-year-old female who presented to hospital complaining of worsening shortness of breath, found to [place] [address] on physical exam with anasarca. started on IV Lasix 100mg BID on admission, continued to be fluid overloaded required to be placed on IV Lasix drip on 06/14 Acute HFrEF. TTE EF of 24% with severely decreased systolic function, akinesis of inferoseptal wall, basal inferior, basal anteroseptal and mid anteroseptal segment, small pericardial effusion on Lasix drip at 5/hr, negative 7140, there is concern for ischemic disease and cardiac is recommended, she is agreable. Continue metoprolol, jardiance, varlsartan, monitor electrolyes, I/O Left leg cellulitis with mild leukocytosis now resolved, on Ceftriaxone since 06/10, stopped after today, erythema nearly gone Anemia of chronic disease, on procrit, Hgb stable around 11, outpatient procrit LUIS and CKD, likely secondary to prerenal azotemia from decreased renal perfusion, resolved -creatinine on admission 2.1->1.9-> 1.7 -> 1.6 -> 1.7--well within baseline, monitor -Nephrology following Type 2 diabetes, generally not well controlled, last A1C in April was 14, has complications of retinopathy and s/p left BKA continue Lantus and Sliding scale, jardinace. Educated on compliance Hypomagnesemia Mg Oxide, 1.8 now FEN: NI, replete as needed, diabetic with fluid restrictions and low-salt diet GI PPx: Pantoprazole DVT PPX: Heparin Code status: Full code Disposition: to [facility] when bed available for cardiacn cath Total time managing care of this patient today: 55 minutes. Quality Stroke Does the patient have a stroke diagnosis?: No VTE Prior VTE?: No VTE Risk Level:: Medical - moderate - high VTE Device Contraindication: Treatment Not Indicated VTE Drug Contraindication: N/A - Med Ordered
--- NOTE | 2025-06-16 11:48 | PM.DS ---
DS: Providers Provider Date of Service: 06/16/25 Date of admission: 06/10/25 17:41 Date of discharge: 06/16/25 Primary care physician: TAMY Ram Consults: 06/10/25 17:14 Consult to Cardiology Stat Consulting Provider: [facility] Reason for consultation: Anasarca, CHF, cardiomyopathy Has provider been notified: No 06/11/25 05:56 Consult to Wound Care Routine Consulting Provider: [facility] Wound Care Management Reason for consultation: pt. known to wound clinic in past for diabetic wounds. Has provider been notified: Yes 06/11/25 11:15 Consult to Nephrology Routine Consulting Provider: Barron Wetzel Reason for consultation: HF exacerbation, LUIS, CKD Has provider been notified: No 06/16/25 09:56 Consult to Wound Care Routine Consulting Provider: [facility] Wound Care Management Reason for consultation: PI R. buttcks/ wound R.2nd toe/fissures on R heel/lesions on L.leg/shoulder DS: Diagnosis Discharge Diagnosis (1) CHF (congestive heart failure): Status: Acute (2) LUIS (acute kidney injury): Status: Acute DS: Summary Hospital Course Hospital Course: admission hpi Chief Complaint: Shortness of breath 60-year-old female who presented to hospital complaining of worsening shortness of breath and edema that began approximately 2 months ago. Patient states that after she received Procrit at that time and began with increased swelling in the setting matter from lower extremities all the way to chest. Patient mentions that she is experiencing chest pressure as well as worsening swelling. Patient also mentions that she is experiencing left lower extremity pain, burning-like, similar to when she had an infection where she had BKA. In the ED labs with WBC 11.3, creatinine 2.1, proBNP 74362, chest CT with pleural effusion, cardiomegaly and pulmonary edema with diffuse ground-glass densities. Patient admitted for heart failure exacerbation hospital course: 60-year-old female with poorly controlled diabetes, chronic anemia, CKD3, heart failure with reduced EF presented to the hospital complaining of worsening shortness of breath, and other stigma of heart fail[place] [address] on physical exam with anasarca. started on IV Lasix 100mg BID on admission which will eventually be changed to Lasix drip and thus far has diuressed 7 L Acute HFrEF. She presented with anasarca, previous echo showed EFof 25. TTE EF now of 24% with severely decreased systolic function, akinesis of inferoseptal wall, basal inferior, basal anteroseptal and mid anteroseptal segment, small pericardial effusion on Lasix drip at 5/hr, negative 7140, there is concern for ischemic disease and cardiac is recommended, she is agreable. Continue metoprolol, jardiance, varlsartan, monitor electrolyes, I/O. Cardiolog (Dr. Middleton) has been following her and avises ishecmic work up with cardiac cath, she's agreable. Left leg cellulitis with mild leukocytosis now resolved, on Ceftriaxone since 06/10, stopped after today, erythema nearly gone Anemia of chronic disease, on procrit, Hgb stable around 11, outpatient procrit LUIS and CKD 3, likely secondary to prerenal azotemia from decreased renal perfusion, resolved -creatinine on admission 2.1->1.9-> 1.7 -> 1.6 -> 1.7--well within baseline, monitor -Nephrology following Type 2 diabetes, generally not well controlled, last A1C in April was 14, has complications of retinopathy and s/p left BKA continue Lantus 45 and Sliding scale, jardinace. Educated on compliance. FBSwas 140 this morning and received Lantus 20 Hypomagnesemia Mg Oxide, 1.8 now Dispo: To [facility] for cardiac cath Time Attestation Discharge Coordination Time (in mins): 40 Quality: Safe Use of Opioids Does Pt have an Active Cancer Diagnosis on the Problem List?: No Quality: Stroke Does the patient have a stroke diagnosis?: No Physical Exam Exam: Exam: General: AO X 3, no acute distress Resp: CTA bilateral CVS: S1,S2,RRR GI: +BS, NT, no distention Skin: No rash Neuro: motor grossly intact Psych: appropriate affect Vital Signs: Vital Signs: Last Vital Signs Temp 97.9 F 06/16/25 11:03 Pulse 79 06/16/25 11:03 Resp 16 06/16/25 11:03 BP 134/66 06/16/25 11:03 Pulse Ox 97 06/16/25 11:03 O2 Del Method Room Air 06/16/25 11:03 BMI result Body Mass Index 39.7 DS: Data Data Completed and Pending Completed studies during hospitalization [Text1]: Procedures Drainage of Left Foot Skin, External Approach (05/12/22) Insertion of Infusion Device into Superior Vena Cava, Percutaneous Approach (08/15/22) Transfusion of Nonautologous Red Blood Cells into Peripheral Vein, Percutaneous Approach (08/15/22) Ultrasonography of Superior Vena Cava, Guidance (08/15/22) Labs on day of discharge: Laboratory Results - last 24 hr 06/15/25 06/15/25 06/16/25 15:49 20:27 07:03 POC Glucose 185 H 262 H 140 H 06/16/25 11:05 POC Glucose 193 H Discharge Plan Discharge Anticipated Discharge Date/Time: 06/16/25 12:51 Patient Disposition: Xfer Acute Care Hospital Discharge Diagnosis: Acute heart failure Referrals: [facility] [Outside] - 1 Week Rosalind Cardoso FNP [Primary Care Provider, Family Practice] - 1 Week Discharge Medications: New valsartan 80 mg Tablet 80 mg PO BID Qty: 60 0RF Protocol: Hold for SBP< HOLD for SBP < : 90 furosemide 10 mg/mL solution 5 mg IV DAILY Rx Instructions: continuous IV infusion at 5 mg/hr Continued amlodipine 10 mg tablet 10 mg PO DAILY Qty: 90 3RF furosemide 40 mg tablet 80 mg PO DAILY Qty: 180 3RF isosorbide mononitrate 60 mg tablet extended release 24 hr 60 mg PO DAILY Qty: 90 3RF magnesium oxide 400 mg (241.3 mg magnesium) tablet 400 mg PO TID cholecalciferol (vitamin D3) 25 mcg (1,000 unit) tablet 1 tab PO DAILY chlorthalidone 25 mg tablet 25 mg PO DAILY acetaminophen 500 mg tablet 500 - 1,000 mg PO Q8H PRN (Reason: pain) amitriptyline 25 mg tablet 25 mg PO BEDTIME albuterol sulfate 90 mcg/actuation HFA aerosol inhaler 2 puff INHALATION Q6H PRN (Reason: Shortness Of Breath Or Wheezing) (DME) lancets [TRUEplus Lancets] 33 gauge misc See Rx Instructions topical .MEDSUPPLY Qty: 100 Rx Instructions: As directed (DME) pen needle, diabetic [UltiCare Pen Needle] 31 gauge x 5/16 needle See Rx Instructions subcut .MEDSUPPLY Qty: 1200 Rx Instructions: As directed (DME) FreeStyle Lite Strips Strip See Rx Instructions Not Applicable TID Qty: 10 Rx Instructions: As directed clotrimazole 1 % cream 1 appl topical BID aspirin 81 mg tablet,delayed release (DR/EC) 81 mg PO DAILY Qty: 90 3RF ezetimibe 10 mg tablet 10 mg PO DAILY Qty: 90 3RF lidocaine 5 % adhesive patch,medicated 1 patch topical DAILY MDD 12 on 12 hrs off PRN (Reason: Pain) Rx Instructions: leave on most painful area for up to 12 hrs metoprolol succinate 100 mg tablet extended release 24 hr 100 mg PO DAILY Discontinued lisinopril 10 mg tablet 10 mg PO DAILY Qty: 90 1RF Discharge Orders: Discharge Order (Routine); Ordered 06/16/25 Ordered By: Cecilio Hernandez Diet: Diabetic diet Activity on Discharge: As tolerated Stand Alone Forms: Patient Portal Discharge page Print Language: Macedonian Care Plan Goals: transfer to [facility] for cardiac cath to rule out ischemic cardiomyopathy Health Concerns: heart failure anemia ckd suspected ischemic cardiomyopathy Plan of Treatment: IV Lasix drip transfer to [facility] Assessment: see above Discharge Date/Time: 06/16/25 13:10
--- NOTE | 2025-06-16 13:05 | MHC.CM.PN ---
Patient will transfer to [facility].
== END 2025-06-16 13:10 | disposition short-term general hospital (02) | DRG 291 ==
LOC: HO.ED 17:23 → HO.EDOVER 17:59 → HO.IMC 06-11 00:06
PROVIDERS: Hospitalist; Physician Assistant Medical; Admitting Provider Student in an Organized Health Care Education/Training Program; Emergency Provider Emergency Medicine; PCP Registered Nurse; Visit Provider Internal Medicine
DX: I13.0 Hypertensive heart and chronic kidney disease with heart failure and stage 1 through stage 4 chronic kidney disease, or unspecified chronic kidney disease (principal); I50.21 Acute systolic (congestive) heart failure; N18.4 Chronic kidney disease, stage 4 (severe); Z68.41 Body mass index [BMI] 40.0-44.9, adult; Y83.5 Amputation of limb(s) as the cause of abnormal reaction of the patient, or of later complication, without mention of misadventure at the time of the procedure; E11.51 Type 2 diabetes mellitus with diabetic peripheral angiopathy without gangrene; D63.1 Anemia in chronic kidney disease; E11.319 Type 2 diabetes mellitus with unspecified diabetic retinopathy without macular edema; N25.0 Renal osteodystrophy; I27.20 Pulmonary hypertension, unspecified; I25.5 Ischemic cardiomyopathy; E83.42 Hypomagnesemia; E11.22 Type 2 diabetes mellitus with diabetic chronic kidney disease; E66.09 Other obesity due to excess calories; Z89.519 Acquired absence of unspecified leg below knee; Z20.822 Contact with and (suspected) exposure to COVID-19; Z79.82 Long term (current) use of aspirin; Z79.899 Other long term (current) drug therapy
CPT/HCPCS: 36415; 71250; 74176; 80048; 80076; 81001; 82947; 83690; 83735; 83880; 84443; 84484; 85025; 87637; 93005; 93306; 97110; 97163; 97167; 99285; J0696; J1644; J1938; J2470; Q9957

== ENCOUNTER → 2025-06-10 11:39 | Outpatient (BNV) | payer OTHER, SELFPAY | PROVIDERS: Admitting Provider Student in an Organized Health Care Education/Training Program; Emergency Provider Emergency Medicine; PCP Registered Nurse; Visit Provider Internal Medicine | DX: R94.31 Abnormal electrocardiogram [ECG] [EKG] (principal); Z13.6 Encounter for screening for cardiovascular disorders | CPT/HCPCS: 93010 ==

== ENCOUNTER → 2025-06-10 14:03 | Outpatient (BNV) | payer OTHER, SELFPAY | PROVIDERS: Emergency Provider Emergency Medicine; PCP Registered Nurse; Visit Provider Radiology Diagnostic Radiology | DX: K80.20 Calculus of gallbladder without cholecystitis without obstruction (principal); K57.90 Diverticulosis of intestine, part unspecified, without perforation or abscess without bleeding; R59.0 Localized enlarged lymph nodes; J90 Pleural effusion, not elsewhere classified; I51.7 Cardiomegaly | CPT/HCPCS: 71250; 74176 ==

== ENCOUNTER 2025-06-10 17:41 | Outpatient (BNV) | payer OTHER, SELFPAY | END 2025-06-13 12:08 | PROVIDERS: Admitting Provider Student in an Organized Health Care Education/Training Program; Emergency Provider Emergency Medicine; PCP Registered Nurse; Visit Provider Internal Medicine Cardiovascular Disease | DX: R00.0 Tachycardia, unspecified (principal); I49.1 Atrial premature depolarization | CPT/HCPCS: 93010 ==

== ENCOUNTER 2025-06-10 17:41 | Outpatient (BNV) | payer OTHER, SELFPAY | END 2025-06-16 10:41 | PROVIDERS: Admitting Provider Student in an Organized Health Care Education/Training Program; Emergency Provider Emergency Medicine; PCP Registered Nurse; Visit Provider Radiology Diagnostic Radiology | DX: K42.9 Umbilical hernia without obstruction or gangrene (principal); K80.20 Calculus of gallbladder without cholecystitis without obstruction | CPT/HCPCS: 74176 ==

== ENCOUNTER 2025-06-10 17:41 | Outpatient (BNV) | payer OTHER, SELFPAY | END 2025-06-11 07:00 | PROVIDERS: Admitting Provider Student in an Organized Health Care Education/Training Program; Emergency Provider Emergency Medicine; PCP Registered Nurse; Visit Provider Internal Medicine | DX: R00.0 Tachycardia, unspecified (principal); I49.3 Ventricular premature depolarization; I49.1 Atrial premature depolarization | CPT/HCPCS: 93010 ==

== ENCOUNTER → 2025-06-10 17:41 | Outpatient (BNV) | payer OTHER, SELFPAY | PROVIDERS: Admitting Provider Student in an Organized Health Care Education/Training Program; Emergency Provider Emergency Medicine; PCP Registered Nurse; Visit Provider Internal Medicine | DX: I50.43 Acute on chronic combined systolic (congestive) and diastolic (congestive) heart failure (principal) | CPT/HCPCS: 99233 ==

== ENCOUNTER → 2025-06-10 17:41 | Outpatient (BNV) | payer OTHER, SELFPAY | PROVIDERS: Admitting Provider Student in an Organized Health Care Education/Training Program; Emergency Provider Emergency Medicine; PCP Registered Nurse; Visit Provider Student in an Organized Health Care Education/Training Program | DX: I50.9 Heart failure, unspecified (principal); I73.9 Peripheral vascular disease, unspecified; N17.9 Acute kidney failure, unspecified | CPT/HCPCS: 99222; 99232; 99233 ==

== ENCOUNTER → 2025-06-17 23:59 | Outpatient (BNV) | payer OTHER, SELFPAY | PROVIDERS: PCP Registered Nurse; Visit Provider Internal Medicine Cardiovascular Disease | DX: I50.9 Heart failure, unspecified (principal) | CPT/HCPCS: 93458; 99152 ==